=== PATIENT | female | born 1970 | race Caucasian/White ===

== ENCOUNTER → 2018-04-19 14:24 | Outpatient (CLI) | payer OTHER, MEDICAID, SELFPAY ==
[2018-04-19 16:06] LABS: Absolute Lymphocyte Count 1.31 X10^3/ul (0.83-4.51); Absolute Neutrophil Count 5.3 X10^3/uL (2.0-7.7); Basophil# 0.04 X10^3/uL; Basophil% 0.5 % (0-1); Eosinophil# 0.21 X10^3/uL; Eosinophils% 2.9 % (0-5); Hematocrit 35.3 % (37-47); Hemoglobin 12.2 g/dl (12.0-15.0); Lymphocyte # 1.31 X10^3/ul (4.0); Lymphocyte % 17.9 % (19-41); Mean Corp Hgb Conc 34.6 g/gl (32-36); Mean Corpuscular Hgb 29.6 pg (27.0-32.0); Mean Corpuscular Volume 85.7 fL (81-99); Mean Platelet Vol. 9.6 fl (6.2-12.0); Monocyte# 0.38 X10^3/uL; Monocyte% 5.2 % (0-10); Neutrophil # 5.34 X10^3/uL (2.7-7.7); Neutrophil % 73.1 % (47-70); Platelet Count 309 K/mm3 (150-450); RBC Distribution Width CV 13.9 % (11.6-14.6); RBC Distribution Width SD 42.4 fl (35.1-43.9); Red Blood Count 4.12 M/mm3 (4.2-5.4); White Blood Count 7.3 K/mm3 (4.4-11.0)
[2018-04-19 16:13] LABS: POSITIVE COUNT NO; POSITIVE DIFFERENTIAL NO; POSITIVE MORPHOLOGY NO
[2018-04-19 16:38] LABS: Thyroid Stim Hormone (TSH) 2.77 uIU/mL (0.358-3.74)
== END ==
PROVIDERS: Family Provider Family Medicine; PCP Family Medicine; Visit Provider Family Medicine
DX: G25.81 Restless legs syndrome (principal)
CPT/HCPCS: 36415; 84443; 85025

== ENCOUNTER → 2019-03-01 14:30 | Outpatient (CLI) | payer OTHER, SELFPAY ==
[2019-03-01 14:06] VITALS: BMI 34.7
[2019-03-07 12:29] LABS: HPV Reflexed? NOT INDICATED
== END ==
PROVIDERS: Family Provider Family Medicine; PCP Family Medicine; Visit Provider Family Medicine
DX: N95.0 Postmenopausal bleeding (principal)
CPT/HCPCS: 88175; G0145

== ENCOUNTER → 2019-03-06 08:24 | Outpatient (CLI) | payer OTHER, SELFPAY ==
[2019-03-01 14:06] VITALS: BMI 34.7
[2019-03-06 12:46] LABS: ALB/GLOB Ratio 0.8 RATIO (0.9-2.4); AST(SGOT) 14 U/L (15-37); Alanine Aminotransfer ALT/SGPT 20 U/L (13-56); Albumin, Serum 3.4 g/dL (3.2-5.0); Alkaline Phosphatase 126 U/L (45-117); Anion Gap 7 (5-15); BUN 17 mg/dL (7-18); BUN/Creat Ratio 17.2 RATIO (10-20); Calcium,Total 8.7 mg/dL (8.5-10.1); Chloride 108 mmol/L (98-107); Cholesterol 162 mg/dL (200); Creatinine, Serum 0.99 mg/dL (0.55-1.02); EST Glomerular Filtration Rate 64 mL/min (>60); Est Glom Filt Rate - Afr Amer 77 mL/min (>60); Globulin 4.3 g/dL (2.2-4.2); Glucose 89 mg/dL (74-106); High Density Lipoprotein 42 mg/dL; Potassium 4.1 mmol/L (3.5-5.1); Protein, Total 7.7 g/dL (6.4-8.2); Sodium Level 139 mmol/L (136-145); Triglycerides 154 mg/dL; Very Low Density Lipoprotein 31 mg/dL (5-40)
--- NOTE | 2019-03-06 16:24 | US_ITS ---
STUDY: ULTRASOUND OF THE FEMALE PELVIS - COMPLETE REASON FOR EXAM: Female, 48 years old. Postmenopausal bleeding. LMP: TECHNIQUE: Transabdominal and transvaginal. TECHNICAL QUALITY: Adequate. COMPARISON: None. FINDINGS: The uterus is retroverted and is in a midline position. The uterus measures 7.3 x 5.5 x 3.6 cm. Normal uterine cervix. The endometrium measures 3 mm in thickness, and is hyperechoic. There is no demonstrated endometrial mass. There is no demonstrated myometrial mass. I.U.D. - The patient does not have an I.U.D. The right ovary is visualized. The right ovary measures 2.1 x 1.9 x 1.4 cm. There is no right ovarian cyst or ovarian mass. There is no visualized right adnexal mass or complex lesion. There is normal arterial and normal venous vascularity. The left ovary is visualized. The left ovary measures 1.7 x 1.6 x 1.0 cm. There is a small there is cyst measuring 0.6 x 0.5 x 0.4 cm. There is no visualized left adnexal mass or complex lesion. There is normal arterial and normal venous vascularity. There is mild free fluid in cul-de-sac. The pre void volume of the bladder was 327.48 ml. US/Pelvic (Non ) IMPRESSION: 1. Normal ultrasound of the retroverted uterus. 2. Small cyst in left ovary measuring 0.6 x 0.5 x 0.4 cm. 3. Small free fluid in the cul-de-sac. Electronically Signed: Pineda Lee MD at 15:39 EDT , Service support ,
--- NOTE | 2019-03-06 16:37 | US_ITS ---
STUDY: ULTRASOUND OF THE FEMALE PELVIS - COMPLETE REASON FOR EXAM: Female, 48 years old. Postmenopausal bleeding. LMP: TECHNIQUE: Transabdominal and transvaginal. TECHNICAL QUALITY: Adequate. COMPARISON: None. FINDINGS: The uterus is retroverted and is in a midline position. The uterus measures 7.3 x 5.5 x 3.6 cm. Normal uterine cervix. The endometrium measures 3 mm in thickness, and is hyperechoic. There is no demonstrated endometrial mass. There is no demonstrated myometrial mass. I.U.D. - The patient does not have an I.U.D. The right ovary is visualized. The right ovary measures 2.1 x 1.9 x 1.4 cm. There is no right ovarian cyst or ovarian mass. There is no visualized right adnexal mass or complex lesion. There is normal arterial and normal venous vascularity. The left ovary is visualized. The left ovary measures 1.7 x 1.6 x 1.0 cm. There is a small there is cyst measuring 0.6 x 0.5 x 0.4 cm. There is no visualized left adnexal mass or complex lesion. There is normal arterial and normal venous vascularity. There is mild free fluid in cul-de-sac. The pre void volume of the bladder was 327.48 ml. US/Transvaginal Non- IMPRESSION: 1. Normal ultrasound of the retroverted uterus. 2. Small cyst in left ovary measuring 0.6 x 0.5 x 0.4 cm. 3. Small free fluid in the cul-de-sac. Electronically Signed: Pineda Lee MD at 15:39 EDT , Service support ,
== END ==
PROVIDERS: Family Provider Family Medicine; PCP Family Medicine; Referring Provider Family Medicine; Visit Provider Family Medicine
DX: N95.0 Postmenopausal bleeding (principal); E78.5 Hyperlipidemia, unspecified
CPT/HCPCS: 36415; 76830; 76856; 80053; 80061; 93976

== ENCOUNTER → 2019-03-15 08:21 | Outpatient (CLI) | payer OTHER, SELFPAY ==
[2019-03-01 14:06] VITALS: BMI 34.7
[2019-03-15 12:54] LABS: Thyroid Stim Hormone (TSH) 2.59 uIU/mL (0.358-3.74)
== END ==
PROVIDERS: Family Provider Family Medicine; PCP Family Medicine; Visit Provider Family Medicine
DX: N93.8 Other specified abnormal uterine and vaginal bleeding (principal)
CPT/HCPCS: 36415; 84443

== ENCOUNTER → 2019-05-01 09:40 | Outpatient (CLI) | payer OTHER, SELFPAY ==
[2019-05-01 09:04] VITALS: BMI 34.7
[2019-05-03 14:45] LABS: HPV Reflexed? NOT INDICATED
== END ==
PROVIDERS: Family Provider Family Medicine; PCP Family Medicine; Referring Provider Family Medicine; Visit Provider Family Medicine
DX: Z01.419 Encounter for gynecological examination (general) (routine) without abnormal findings (principal)
CPT/HCPCS: 88175; G0145

== ENCOUNTER → 2020-08-19 09:48 | Outpatient (CLI) | payer OTHER, SELFPAY ==
[2020-08-19 12:47] LABS: ALB/GLOB Ratio 0.9 RATIO (0.9-2.4); AST(SGOT) 14 U/L (15-37); Alanine Aminotransfer ALT/SGPT 24 U/L (13-56); Albumin, Serum 3.7 g/dL (3.2-5.0); Alkaline Phosphatase 151 U/L (45-117); Anion Gap 7 (5-15); BUN 11 mg/dL (7-18); BUN/Creat Ratio 11.6 RATIO (10-20); Calcium,Total 8.9 mg/dL (8.5-10.1); Chloride 108 mmol/L (98-107); Cholesterol 168 mg/dL (200); Creatinine, Serum 0.95 mg/dL (0.55-1.02); EST Glomerular Filtration Rate 67 mL/min (>60); Est Glom Filt Rate - Afr Amer 81 mL/min (>60); Globulin 4.2 g/dL (2.2-4.2); Glucose 86 mg/dL (74-106); High Density Lipoprotein 35 mg/dL; Potassium 3.9 mmol/L (3.5-5.1); Protein, Total 7.9 g/dL (6.4-8.2); Sodium Level 140 mmol/L (136-145); Triglycerides 191 mg/dL; Very Low Density Lipoprotein 38 mg/dL (5-40)
== END ==
PROVIDERS: PCP Family Medicine; Referring Provider Family Medicine; Visit Provider Family Medicine
DX: E78.5 Hyperlipidemia, unspecified (principal)
CPT/HCPCS: 36415; 80053; 80061

== ENCOUNTER → 2020-09-13 09:43 | Outpatient (CLI) | payer OTHER, SELFPAY ==
--- NOTE | 2020-09-13 09:44 | BI_ITS ---
MAMMOGRAPHY - BILATERAL SCREENING REASON FOR EXAM: Female, 50 years old. Routine annual screening examination. PERTINENT HISTORY: Aunt with breast cancer. TECHNIQUE: Digital bilateral breast kiarra (3D mammographic acquisition) in the CC and MLO projections. 2-D mediolateral oblique (MLO) and craniocaudad (CC) views of both breasts were obtained. CAD: Full Field Digital Mammography with Computer Added Detection was performed. COMPARISON: Comparison is made with prior outside examination dated 08/24/2017. FINDINGS: Breast Composition: There are scattered areas of fibroglandular density. There are no dominant masses or suspicious calcifications. Stable small benign-appearing bilateral axillary lymph nodes. No other significant abnormalities are identified. There has been no significant change since the prior study. BI/SCREEN MAMM (CAD) W/KIARRA BILAT IMPRESSION: Stable bilateral screening mammogram. Yearly follow-up mammogram recommended. (A) ASSESSMENT CATEGORY: BIRADS Category 2: Benign. A letter regarding these results will be sent to the patient by the facility within 30 days. Approximately 10% of breast cancers are not detected by mammography. A normal mammogram should not delay biopsy of a clinically suspicious abnormality. [id number] Electronically Signed: Rodo Sanford, at 9:15 EST , Service support ,
== END ==
PROVIDERS: PCP Family Medicine; Referring Provider Family Medicine; Visit Provider Family Medicine
DX: Z12.31 Encounter for screening mammogram for malignant neoplasm of breast (principal)
CPT/HCPCS: 77063; 77067

== ENCOUNTER → 2021-07-18 10:41 | Outpatient (CLI) | payer OTHER, SELFPAY ==
[2021-07-18 11:45] LABS: Anion Gap 8 (5-15); BUN 18 mg/dL (7-18); BUN/Creat Ratio 18.1 RATIO (10-20); Calcium,Total 9.3 mg/dL (8.5-10.1); Chloride 104 mmol/L (98-107); Creatinine, Serum 0.99 mg/dL (0.55-1.02); EST Glomerular Filtration Rate 63 mL/min (>60); Est Glom Filt Rate - Afr Amer 76 mL/min (>60); Glucose 89 mg/dL (74-106); Potassium 3.9 mmol/L (3.5-5.1); Sodium Level 138 mmol/L (136-145)
== END ==
PROVIDERS: PCP Family Medicine; Visit Provider Internal Medicine
DX: I10 Essential (primary) hypertension (principal)
CPT/HCPCS: 36415; 80048

== ENCOUNTER 2021-10-06 07:04 | Outpatient (CLI) | payer OTHER, SELFPAY ==
--- NOTE | 2021-10-06 07:07 | BI_ITS ---
MAMMOGRAPHY - BILATERAL SCREENING REASON FOR EXAM: Female, 51 years old. Routine annual screening examination. PERTINENT HISTORY: Aunt with breast cancer. TECHNIQUE: Digital bilateral breast kiarra (3D mammographic acquisition) in the CC and MLO projections. 2-D mediolateral oblique (MLO) and craniocaudad (CC) views of both breasts were obtained. CAD: Full Field Digital Mammography with Computer Added Detection was performed. COMPARISON: Comparison is made with prior study dated 09/13/2020. FINDINGS: Breast Composition: There are scattered areas of fibroglandular density. There are no dominant masses or suspicious calcifications. Stable small benign-appearing bilateral axillary lymph nodes. No other significant abnormalities are identified. There has been no significant change since the prior study. BI/SCRN MAMM (CAD)W/KIARRA BILAT IMPRESSION: Stable bilateral screening mammogram. Yearly follow-up mammogram recommended. (A) ASSESSMENT CATEGORY: BIRADS Category 2: Benign. A letter regarding these results will be sent to the patient by the facility within 30 days. Approximately 10% of breast cancers are not detected by mammography. A normal mammogram should not delay biopsy of a clinically suspicious abnormality. [id number] Electronically Signed: Rdoo Sanford MD at 8:43 EST , Service support ,
== END 2021-10-06 23:59 | disposition short-term general hospital (02) ==
LOC: OPBI 07:06
PROVIDERS: PCP Family Medicine; Referring Provider Family Medicine; Visit Provider Family Medicine
DX: Z12.31 Encounter for screening mammogram for malignant neoplasm of breast (principal); Z80.3 Family history of malignant neoplasm of breast
CPT/HCPCS: 77063; 77067

== ENCOUNTER 2021-12-01 09:06 | Outpatient (CLI) | payer OTHER, SELFPAY ==
[2021-12-01 13:13] LABS: Cholesterol 187 mg/dL (200); High Density Lipoprotein 39 mg/dL; T4 Free Direct 0.94 ng/dL (0.76-1.46); Thyroid Stim Hormone (TSH) 1.99 uIU/mL (0.358-3.74); Triglycerides 286 mg/dL; Very Low Density Lipoprotein 57 mg/dL (5-40)
[2021-12-02 21:07] LABS: Thyroid Peroxidase AB 38 IU/mL (0-34)
[2021-12-03 19:11] LABS: Thyroglobulin Antibody < 1.0 IU/mL (0.0-0.9)
== END 2021-12-01 23:59 | disposition home or self-care (01) ==
LOC: BIMLAB 09:07
PROVIDERS: PCP Family Medicine; Referring Provider Family Medicine; Visit Provider Family Medicine
DX: E78.5 Hyperlipidemia, unspecified (principal); I10 Essential (primary) hypertension
CPT/HCPCS: 36415; 80061; 84439; 84443; 86376; 86800

== ENCOUNTER 2022-01-13 11:27 | Outpatient (CLI) | payer OTHER, SELFPAY ==
--- NOTE | 2022-01-13 11:30 | US_ITS ---
STUDY: THYROID ULTRASOUND REASON FOR EXAM: Female, 51 years old. ENLARGED THYROID TECHNIQUE: Ultrasound evaluation of the thyroid was performed with real-time and static diego-scale imaging. COMPARISON: None. FINDINGS: RIGHT LOBE: The right lobe of the thyroid gland measures 4.3 cm x 2.4 cm x 1.6 cm. There is a homogeneous echotexture. There is a 1.4 cm x 1.3 cm x 1.2 cm solid nodule with increased vascularity in the posterior lower pole of the right lobe. There is also evidence of a 1 cm x 0.7 cm x 0.5 cm hypoechoic solid nodule in the anterior midpole. A 1 cm x 0.7 cm x 0.5 cm hypoechoic solid nodule is seen in the upper pole. LEFT LOBE: The left lobe of the thyroid gland measures 4.1 cm x 1.5 cm x 1.1 cm. There is a homogeneous echotexture. 3 subcentimeter solid nodules are seen. The largest measures 9 mm x 8 mm x 4 mm. ISTHMUS: The isthmus measures 2 mm. Incidental note is made of a 1 cm x 0.8 cm by 0.4 cm benign-appearing left cervical lymph node. US/Thyroid IMPRESSION: Dominant solid nodule with increased vascularity is seen in the posterior lower pole of the right lobe of the thyroid. Biopsy recommended. Electronically Signed: Rodo Sanford MD at 13:23 EDT ,
== END 2022-01-13 23:59 | disposition home or self-care (01) ==
LOC: US 11:35
PROVIDERS: PCP Family Medicine; Referring Provider Physician Assistant; Visit Provider Physician Assistant
DX: E04.9 Nontoxic goiter, unspecified (principal)
CPT/HCPCS: 76536

== ENCOUNTER → 2022-03-10 | Outpatient (CLI) | payer OTHER, SELFPAY ==
[2022-03-10 17:16] LABS: Follicle Stimulating Hormone 6.6 mIU/mL
== END | disposition home or self-care (01) ==
LOC: BIMLAB 16:19
PROVIDERS: PCP Family Medicine; Referring Provider Family Medicine; Visit Provider Family Medicine
DX: F99 Mental disorder, not otherwise specified (principal)
CPT/HCPCS: 36415; 83001

== ENCOUNTER → 2022-03-19 | Outpatient (CLI) | payer OTHER, SELFPAY | END | disposition home or self-care (01) | LOC: PSN 06:21 | PROVIDERS: PCP Family Medicine; Referring Provider Family Medicine; Visit Provider Family Medicine | DX: I49.9 Cardiac arrhythmia, unspecified (principal) | CPT/HCPCS: 93225; 93226 ==

== ENCOUNTER → 2022-03-31 | Outpatient (CLI) | payer OTHER, SELFPAY ==
--- NOTE | 2022-03-31 12:55 | ECHOD_ITS ---
Reason For Study: Arrhythmia Procedure This was a 2D Doppler, Color Flow transthoracic echocardiogram. The exam was of adequate technical quality. Exam performed in department. Left Ventricle Normal LV size. Sigmoid septum. Left ventricular systolic function is normal. The estimated ejection fraction is 65 %. No evidence for diastolic dysfunction. No regional wall motion abnormalities noted. Right Ventricle Normal RV size. Normal systolic function. Atria Normal left atrium. Normal right atrium. No doppler evidence for ASD. Mitral Valve There is no mitral annular calcification. Mild focal mitral valve calcification of the anterior leaflet. Trivial mitral valve insufficiency. Tricuspid Valve Normal tricuspid valve. Trivial tricuspid valve insufficiency. Unable to estimate RV systolic pressure due to insufficient tricuspid regurgitant envelope. Aortic Valve Trisinus/trileaflet aortic valve. Normal aortic valve. Pulmonic Valve The pulmonic valve is not well visualized. Great Vessels Normal sized aortic root. Pericardium/Pleural No pericardial effusion. MMode/2D Measurements & Calculations LVIDd: 5.1 cm IVSd: 0.89 cm Ao root diam: 3.3 cm LVIDs: 3.3 cm LVPWd: 0.89 cm LA dimension: 3.8 cm RVDd: 2.9 cm FS: 35.4 % LAV(MOD-bp): 40.8 ml LA A4 area: 16.4 cm2 RA A4 area: 13.6 cm2 LAV(MOD-bp) Indexed: 21.4 ml/m2 LAV(MOD-sp2): 43.6 ml LAV(MOD-sp4): 38.4 ml Time Measurements MV dec time: 0.24 sec Doppler Measurements & Calculations MV E max julius: 75.9 cm/sec Lat Peak E' Julius: 11.6 cm/sec Med Peak E' Julius: 9.6 cm/sec MV A max julius: 95.5 cm/sec E/E' lat: 6.5 E/E' med: 7.9 MV E/A: 0.79 MV V2 max: 94.7 cm/sec MV P1/2t max julius: 93.6 cm/sec Ao V2 max: 130.3 cm/sec MV max P.6 mmHg MV P1/2t: 51.9 msec Ao max P.8 mmHg MV V2 mean: 59.5 cm/sec MV dec slope: 527.8 cm/sec2 MV mean P.7 mmHg MVA(P1/2t): 4.2 cm2 MV V2 VTI: 19.8 cm LV V1 max: 100.8 cm/sec PA V2 max: 121.3 cm/sec LV V1 max P.1 mmHg ECHO/Echo Complete Interpretation Summary Left ventricular systolic function is normal. The estimated ejection fraction is 65 %. Sigmoid septum. Mild focal mitral valve calcification of the anterior leaflet. Trivial mitral valve insufficiency. Trivial tricuspid valve insufficiency. Unable to estimate RV systolic pressure due to insufficient tricuspid regurgita nt envelope. No evidence for diastolic dysfunction. Ordering Physician: Mick Nick Referring Physician: Mick Nick Performed By: Rajat Pierce RCS
== END | disposition home or self-care (01) ==
LOC: CVS 12:52
PROVIDERS: PCP Family Medicine; Referring Provider Family Medicine; Visit Provider Family Medicine
DX: I49.9 Cardiac arrhythmia, unspecified (principal)
CPT/HCPCS: 93306

== ENCOUNTER → 2022-08-12 | Outpatient (CLI) | payer OTHER, SELFPAY ==
[2022-08-19 14:50] LABS: HPV Reflexed? NOT INDICATED
== END | disposition home or self-care (01) ==
LOC: LABSPEC 08:42
PROVIDERS: PCP Family Medicine; Referring Provider Family Medicine; Visit Provider Family Medicine
DX: Z01.419 Encounter for gynecological examination (general) (routine) without abnormal findings (principal)
CPT/HCPCS: 88175; G0145

== ENCOUNTER → 2022-08-27 | Outpatient (CLI) | payer OTHER, SELFPAY ==
[2022-08-27 13:25] LABS: Absolute Lymphocyte Count 2.11 X10^3/uL (0.83-4.51); Basophil# 0.05 X10^3/uL; Basophil% 0.6 % (0-1); Eosinophil# 0.32 X10^3/uL; Eosinophils% 3.6 % (0-5); Hematocrit 34.8 % (37-47); Hemoglobin 11.6 g/dL (12.0-15.0); Lymphocyte # 2.11 X10^3/ul (0.83-4.51); Lymphocyte % 23.7 % (19-41); Mean Corp Hgb Conc 33.3 g/dL (32-36); Mean Corpuscular Hgb 27.4 pg (27.0-32.0); Mean Corpuscular Volume 82.1 fL (81-99); Mean Platelet Vol. 9.2 fl (6.2-12.0); Monocyte# 0.38 X10^3/uL; Monocyte% 4.3 % (0-10); NRBC Flagged by Analyzer 0 % (0-5); Neutrophil # 5.97 X10^3/uL (2.7-7.7); Neutrophil % 67.1 % (47-70); Platelet Count 339 K/mm3 (150-450); RBC Distribution Width CV 14.1 % (11.6-14.6); RBC Distribution Width SD 41.5 fl (35.1-43.9); Red Blood Count 4.24 M/mm3 (4.2-5.4); White Blood Count 8.9 K/mm3 (4.4-11.0)
[2022-08-27 14:00] LABS: AST(SGOT) 37 U/L (15-37); Alanine Aminotransfer ALT/SGPT 52 U/L (13-56); Albumin, Serum 3.7 g/dL (3.2-5.0); Alkaline Phosphatase 160 U/L (45-117); Anion Gap 8 (5-15); BUN 18 mg/dL (7-18); BUN/Creat Ratio 18.3 RATIO (10-20); Chloride 105 mmol/L (98-107); Cholesterol 187 mg/dL (200); Creatinine, Serum 0.99 mg/dL (0.55-1.02); EST Glomerular Filtration Rate 63 mL/min (>60); Est Glom Filt Rate - Afr Amer 76 mL/min (>60); Globulin 3.8 g/dL (2.2-4.2); Glucose 121 mg/dL (74-106); High Density Lipoprotein 43 mg/dL; Potassium 3.4 mmol/L (3.5-5.1); Protein, Total 7.5 g/dL (6.4-8.2); Sodium Level 140 mmol/L (136-145); Triglycerides 374 mg/dL; Very Low Density Lipoprotein 75 mg/dL (5-40)
== END | disposition home or self-care (01) ==
LOC: LAB 12:32
PROVIDERS: PCP Family Medicine; Visit Provider Family Medicine
DX: I49.9 Cardiac arrhythmia, unspecified (principal); I10 Essential (primary) hypertension
CPT/HCPCS: 36415; 80053; 80061; 85025

== ENCOUNTER → 2022-10-07 | Outpatient (CLI) | payer OTHER, SELFPAY ==
--- NOTE | 2022-10-07 07:20 | BI_ITS ---
MAMMOGRAPHY - BILATERAL SCREENING REASON FOR EXAM: Female, 52 years old. Routine annual screening examination. PERTINENT HISTORY: Aunt with breast cancer. TECHNIQUE: Digital bilateral breast kiarra (3D mammographic acquisition) in the CC and MLO projections. 2-D mediolateral oblique (MLO) and craniocaudad (CC) views of both breasts were obtained. CAD: Full Field Digital Mammography with Computer Added Detection was performed. COMPARISON: Comparison is made with prior study dated 10/06/2021 and 09/13/2020. FINDINGS: Breast Composition: There are scattered areas of fibroglandular density. There are no dominant masses or suspicious calcifications. Stable small benign-appearing bilateral axillary lymph nodes. No other significant abnormalities are identified. There has been no significant change since the prior study. BI/SCRN MAMM (CAD)W/KIARRA BILAT IMPRESSION: Stable bilateral screening mammogram. Yearly follow-up mammogram recommended. (A) ASSESSMENT CATEGORY: BIRADS Category 2: Benign. A letter regarding these results will be sent to the patient by the facility within 30 days. Approximately 10% of breast cancers are not detected by mammography. A normal mammogram should not delay biopsy of a clinically suspicious abnormality. [id number] Electronically Signed: Rodo Sanford MD at 9:13 EST ,
== END | disposition home or self-care (01) ==
LOC: OPBI 07:18
PROVIDERS: PCP Family Medicine; Visit Provider Family Medicine
DX: Z12.31 Encounter for screening mammogram for malignant neoplasm of breast (principal)
CPT/HCPCS: 77063; 77067

== ENCOUNTER → 2023-01-15 | Outpatient (CLI) | payer OTHER, SELFPAY ==
--- NOTE | 2023-01-15 10:38 | US_ITS ---
INDICATION: Multiple thyroid nodules EXAMINATION: Ultrasound Thyroid (eg thyroid, parathyroid, parotid) TECHNIQUE: Benson scale and color doppler imaging was performed of the thyroid gland. COMPARISON: January 13, 2022 thyroid ultrasound. FINDINGS: No report of interval biopsy the prior study. RIGHT THYROID LOBE: 4.7 x 1.7 x 2.1 cm. Heterogeneous echotexture with normal vascularity. 3 measured nodules. Dominant nodule in the mid to inferior gland, deep, solid with areas of cystic change, measuring 1.8 x 1.5 x 1.5 cm in size, mild vascularity. This was previously measured at 1.4 x 1.3 x 1.2 cm. Superficial mid gland ovoid solid nodule measuring 1 x 0.4 x 0.8 cm in size. No significant vascularity. Additional mid gland nodule measuring 0.8 x 0.5 x 0.3 cm, solid, no significant vascularity. LEFT THYROID LOBE: 3.7 x 1.4 x 1.5 cm. Heterogeneous echotexture with normal vascularity. 2 measured nodules. Cystic lesion measuring 5 x 5 x 3 mm, upper mid gland, small marginal echogenic focus. No vascularity. Predominantly solid, small cystic component nodule measuring 1.1 x 0.7 x 0.5 cm in the mid gland. Small focus of vascularity. ISTHMUS: 2 mm. No thyroid nodules are present. No adenopathy. US/Thyroid IMPRESSION: Bilateral thyroid nodules. Slight increase in size in the dominant right thyroid nodule. TIRADS 4. Electronically Signed: Mauro Cueva MD at 16:42 EDT ,
== END | disposition home or self-care (01) ==
PROVIDERS: PCP Family Medicine; Referring Provider Surgery; Visit Provider Surgery
DX: E04.2 Nontoxic multinodular goiter (principal)
CPT/HCPCS: 76536

== ENCOUNTER → 2023-01-21 | Outpatient (CLI) | payer OTHER, SELFPAY ==
--- NOTE | 2023-01-21 | FLU_PTH ---
PATIENT: ELISA CORREA LOC: [facility] U#:[id number] AGE/SX: 52/F ROOM: RE01/21/[address]: Dr. Trevor Lanier MD : 1970 BED: DIS: 01/21/2023 SPEC #: [id number] RECD: 01/21/23 12:37 STATUS: FAMILIA BLAKE #: [id number] RADHA: 01/21/23 00:[address]: Trevor Lanier DEPT: CYTOLOGY RECD BY: Mike Ornelas ENTERED: 01/21/23 12:38 SP TYPE: Fluid OTHR DR: Dr. Mick Nick DO Tissues: A - Thyroid gland, NOS B - Thyroid gland, NOS Procedures: Special Stain Group II Surgery Specimen Level IV Cytospin Fluid HEADER OPERATION: Fine needle aspiration right inferior thyroid nodule PRE-OP DIAGNOSIS: Right thyroid nodule TISSUE SUBMITTED: A ? Right thyroid fluid, B ? Right thyroid x4 slides DIAGNOSIS CYTOLOGY A. Fine needle aspiration, right thyroid nodule (cytospin and cell block): Consistent with benign follicular nodule with cystic change (Equinunk Category II). See comment. B. 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 See comment. AM:jarrett 01/24/2023 COMMENT A & B. The Equinunk System for thyroid diagnostic categorization was used in the evaluation of this case. The specimen is adequate for evaluation. CYTOLOGY STUDY Slides are reviewed. CYTOLOGY GROSS A - Received is 30 ml of red cloudy fluid labeled with the patient's name and and designated per the requisition as right thyroid. Submitted for cytology preparation including cell block. B - Received are four smears labeled with the patient's name and designated per the requisition as right thyroid. Submitted for staining. / jarrett 01/21/2023 TC:5 CPT: 34879 x2, [id number]
[2023-01-21 10:01] LABS: Free T3 2.4 pg/mL (2.18-3.98); T4 Total, Thyroxin 10.2 ug/dL (4.8-13.9); Thyroid Stim Hormone (TSH) 2.36 uIU/mL (0.358-3.74)
== END | disposition home or self-care (01) ==
PROVIDERS: PCP Family Medicine; Referring Provider Surgery; Visit Provider Surgery
DX: E04.1 Nontoxic single thyroid nodule (principal)
CPT/HCPCS: 36415; 84436; 84443; 84481; 88108; 88305; 88313

== ENCOUNTER → 2023-02-10 | Outpatient (CLI) | payer OTHER, SELFPAY ==
[2023-02-10 12:21] LABS: Absolute Lymphocyte Count 1.76 X10^3/uL (0.83-4.51); Absolute Neutrophil Count 4.7 X10^3/uL (2.0-7.7); Basophil# 0.06 X10^3/uL; Basophil% 0.8 % (0-1); Eosinophil# 0.22 X10^3/uL; Eosinophils% 3.1 % (0-5); Hematocrit 33.9 % (37-47); Lymphocyte # 1.76 X10^3/ul (0.83-4.51); Lymphocyte % 24.4 % (19-41); Mean Corp Hgb Conc 32.4 g/dL (32-36); Mean Corpuscular Hgb 27.4 pg (27.0-32.0); Mean Corpuscular Volume 84.3 fL (81-99); Mean Platelet Vol. 9.9 fl (6.2-12.0); Monocyte# 0.39 X10^3/uL; Monocyte% 5.4 % (0-10); NRBC Flagged by Analyzer 0 % (0-5); Neutrophil # 4.73 X10^3/uL (2.7-7.7); Neutrophil % 65.6 % (47-70); Platelet Count 341 K/mm3 (150-450); RBC Distribution Width CV 14.6 % (11.6-14.6); RBC Distribution Width SD 44.6 fl (35.1-43.9); Red Blood Count 4.02 M/mm3 (4.2-5.4); White Blood Count 7.2 K/mm3 (4.4-11.0)
[2023-02-10 12:42] LABS: ALB/GLOB Ratio 1.1 RATIO (0.9-2.4); AST(SGOT) 35 U/L (15-37); Alanine Aminotransfer ALT/SGPT 52 U/L (13-56); Albumin, Serum 4.2 g/dL (3.2-5.0); Alkaline Phosphatase 170 U/L (45-117); Anion Gap 6 (5-15); BUN 15 mg/dL (7-18); BUN/Creat Ratio 14.2 RATIO (10-20); Calcium,Total 9.9 mg/dL (8.5-10.1); Chloride 105 mmol/L (98-107); Creatinine, Serum 1.06 mg/dL (0.55-1.02); EST Glomerular Filtration Rate 58 mL/min (>60); Est Glom Filt Rate - Afr Amer 70 mL/min (>60); Globulin 3.9 g/dL (2.2-4.2); Glucose 103 mg/dL (74-106); Protein, Total 8.1 g/dL (6.4-8.2); Sodium Level 140 mmol/L (136-145)
== END | disposition home or self-care (01) ==
LOC: BIMLAB 09:48
PROVIDERS: PCP Family Medicine; Referring Provider Family Medicine; Visit Provider Family Medicine
DX: I49.9 Cardiac arrhythmia, unspecified (principal)
CPT/HCPCS: 36415; 80053; 85025

== ENCOUNTER → 2023-03-22 | Outpatient (CLI) | payer OTHER, SELFPAY ==
[2023-03-22 13:53] LABS: GGTP 76 U/L (5-55)
== END | disposition home or self-care (01) ==
LOC: BIMLAB 09:54
PROVIDERS: PCP Family Medicine; Referring Provider Family Medicine; Visit Provider Family Medicine
DX: R74.8 Abnormal levels of other serum enzymes (principal)
CPT/HCPCS: 36415; 82977

== ENCOUNTER → 2023-04-02 | Outpatient (CLI) | payer OTHER, SELFPAY ==
--- NOTE | 2023-04-02 10:33 | US_ITS ---
ACR Level 3 findings have been noted. An addendum which confirms receipt of the report will follow. INDICATION: elevated liver enzymes EXAMINATION: US Abdomen RUQ (limited) TECHNIQUE: Smith-scale and color Doppler imaging was performed of the right upper abdominal quadrant. COMPARISON: None. Findings: The liver is increased in echogenicity and sound attenuating with geographic hypoechogenicity adjacent to the gallbladder, consistent with focal fatty sparing. There is no evidence of contour nodularity. There are multiple irregular shaped cysts. There is also a hypoechoic masslike lesion in the right hepatic lobe measuring 4.6 x 4.3 cm.. The main portal vein is normal in size and patent demonstrating hepatopetal flow. The gallbladder is unremarkable without evidence of stones, wall thickening or pericholecystic fluid. Sonographic Wiggins''s tenderness is not appreciated. There is no evidence of intrahepatic biliary ductal dilatation. The CBD is nondilated measuring 3 mm at the level of the vikram hepatis. The visualized portions of the pancreas are unremarkable without evidence of focal or diffuse enlargement. Specifically, the tail is obscured by overlying bowel gas. Right kidney measures 11.3 cm in length. It is normal in echogenicity. No focal renal lesion is identified. There is no evidence of hydronephrosis. US/Liver IMPRESSION: Hyperechoic and sound attenuating liver with focal fatty sparing and without evidence of contour nodularity. Findings are consistent with sequela of fatty infiltration. Few scattered irregularly shaped cysts as well as a 4.6 cm hypoechoic masslike lesion in the right hepatic lobe. Recommend CT or MR abdomen with and without contrast liver mass protocol. Electronically Signed: Robb Brito MD at 23:11 EDT ,
== END | disposition home or self-care (01) ==
PROVIDERS: PCP Family Medicine; Referring Provider Family Medicine; Visit Provider Family Medicine
DX: R74.8 Abnormal levels of other serum enzymes (principal)
CPT/HCPCS: 76705

== ENCOUNTER → 2023-04-06 | Outpatient (CLI) | payer OTHER, SELFPAY ==
--- NOTE | 2023-04-06 12:34 | NEURO ---
NCS and/or EMG Patient Report Ordering Doctor: Mick Nick DATE OF SERVICE: 04/06/23 Sierra presents for electrodiagnostic testing of the right upper limb. She has numbness and tingling in the right hand. Electrodiagnostic Findings: Right median motor nerve demonstrates normal distal latency and amplitude with reduced conduction velocity. Normal right ulnar motor response, including conduction across the elbow. Normal right median and ulnar F-wave. Prolonged right median sensory latency at the wrist. Normal ulnar and radial sensory responses. Needle EMG testing showed no evidence of denervation with normal motor unit action potentials. Electrodiagnostic impression: This is an abnormal study in the right upper limb. 1. Electrodiagnostic findings suggestive of right-sided median mononeuropathy. This is consistent with a mild right carpal tunnel syndrome. Multi Select Codes Neurology Neurology Interp Codes: 22493-51 Musc test done w/n test comp (interp) and 46845-59 Nrv cndj test 7-8 studies (interp)
== END | disposition home or self-care (01) ==
LOC: PSN 10:40
PROVIDERS: PCP Family Medicine; Referring Provider Family Medicine; Visit Provider Family Medicine
DX: R20.0 Anesthesia of skin (principal); R20.2 Paresthesia of skin
CPT/HCPCS: 95886; 95910

== ENCOUNTER → 2023-04-18 | Outpatient (CLI) | payer OTHER, SELFPAY ==
--- NOTE | 2023-04-18 07:38 | MRI_ITS ---
STUDY: MRI ABDOMEN WITH AND WITHOUT CONTRAST REASON FOR EXAM: Female, 52 years old. liver mass TECHNIQUE: Standardized fat and water weighted pulse sequences were obtained in all 3 orthogonal planes post contrast administration. IV clariscan 15ml was administered for the contrast portion of the examination. COMPARISON: Ultrasound 04/02/2023. FINDINGS: Base of the chest is unremarkable. There are multiple nonenhancing cysts of the left and right hepatic lobes including a lobular or septated cyst of the anterior left hepatic lobe on image 21 of series 102 compatible with simple/benign cysts. No required imaging follow-up needed given high likelihood of benign nature. Some of the cysts were documented on prior ultrasound. In the posterior right hepatic lobe (segment 7), there is a solid slightly hypointense T1 (image 9 series 4) mass which measures 4.4 x 4.0 x 3.4 cm mass which demonstrates restricted diffusion (image 54 series 7). There is lobular, although relatively homogenous enhancement throughout the mass on image 48 of series 1001 in the arterial phase with homogenous continued enhancement on later phases, only slightly higher signal intensity as compared to adjacent hepatic parenchyma. No associated hemorrhagic products, fat (a lesion mildly hyperintense on out of phase imaging) or calcification. No discrete capsule. No hepatic capsular retraction. Although no definitive central scar seen on T2-weighted sequences, there is slight central hypoenhancement that could represent a radial scar. This lesion correlates to hypoechoic lesion on prior ultrasound. Normal gallbladder and extrahepatic biliary system. In the posterior spleen, there is hypointense T2 signal intensity lesion that demonstrates peripheral dominant enhancement seen on venous and later phases. Normal pancreas. Normal bilateral adrenal glands. No hydronephrosis. Hollow viscus structures are unremarkable.. Normal abdominal aorta. Normal inferior vena cava. Normal retroperitoneum. Normal abdominal wall. No bone marrow edema. MRI/MRI Abd WITH and W/O Contrast IMPRESSION: 1. Solid enhancing mass of the posterior right hepatic lobe correlating to hypoechoic lesion on recent ultrasound. Enhancement pattern favors benign etiology such as FNH or adenoma although appearance is atypical. 2. Enhancing mass in the spleen atypical MRI features for hemangioma (most common). 3. Given indeterminate US/MRI features of both the liver and splenic lesions, additional evaluation with PET scan versus biopsy recommended, depending on patient''s risk factors for malignancy (none reported at time of dictation). Absent additional workup, short-term follow-up in 3-6 months could be considered. Electronically Signed: Jovan Alegre (Brooks), at 16:31 EDT ,
[2023-04-18 08:04] LABS: EGFR FINGERSTICK > 60.0000 mL/min (>60)
== END | disposition home or self-care (01) ==
LOC: MRI 07:22
PROVIDERS: PCP Family Medicine; Referring Provider Family Medicine; Visit Provider Family Medicine
DX: R16.0 Hepatomegaly, not elsewhere classified (principal)
CPT/HCPCS: 74183; A9575; A4216

== ENCOUNTER → 2023-05-03 | Outpatient (CLI) | payer OTHER, SELFPAY ==
--- NOTE | 2023-05-03 09:00 | PET_ITS ---
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 COMPARISON EXAMINATION: MRI of the abdomen report dated 04/18/2023. INDEX LESION SIZE SUV INTERPRETATION Spleen-splenic parenchyma 34.1 mm, largest 2.5 corrected > hepatic reference Fulfills quantitative criteria for viable neoplasm with single-point technique, histopathologic analysis recommended ? ? NON-INDEX LESION ? ? ? Right lobe thyroid gland 15.1 mm 3.4 May be further investigated with thyroid ultrasound TECHNIQUE: Following the intravenous administration of 13.29 mCi of F-18 deoxyglucose via the right antecubital fossa, multiplanar image acquisitions of the head, neck, chest, abdomen and pelvis to the level of the midthigh, obtained at one-hour post radiopharmaceutical administration contemporaneously interpreted with the current CT of the chest, abdomen and pelvis dated 05/03/2023 and prior MRI of the abdomen report dated 04/08/2023 via coregistration reveal: SERUM GLUCOSE LEVEL: 110 mg/dL HEIGHT: 62 inches WEIGHT: 185 pounds FINDINGS: HEAD/NECK: Asymmetric increased radiopharmaceutical concentration appears evident in the right anterior neck involving Level associated with the right lobe thyroid colloid. The calculated maximum standard uptake value is 3.4. The maximal axial diameter of the metabolic, morphologic abnormality is 15.1 mm. The visualized portion of the cerebral cortical-subcortical structures demonstrate symmetric and preserved glucose metabolism. CHEST: There is no quantitative scintigraphic evidence of abnormal increased glucose metabolism within the context of the bilateral hemithorax pulmonary parenchyma, right and left hemithorax at the pleural interface, mediastinal structures, and left-right thoracic perihilum. Facilitated FDG uptake is noted in the left ventricular myocardium, consistent with the [place]. CT of the chest demonstrates the following anatomic characteristics: Bilateral axillary soft tissue densities are ametabolic. Right and left axillary and middle mediastinal soft tissue reveals no evidence of increased tracer uptake. There are no parenchymal densities-nodules defined in the right and left hemithorax with quantitatively significant increased FDG uptake. ABDOMEN/PELVIS: Enhanced radiopharmaceutical concentration is defined within the splenic parenchyma generating a calculated standard uptake value of 2.5 corrected 5.0 uncorrected > than the hepatic reference. The maximal axial diameter of the metabolic abnormality is 34.1 mm. Normal physiologic distribution of the radiopharmaceutical is identified in the hepatic (4.1) parenchyma, both renal units, urinary bladder, and visualized intestinal tract. CT of the abdomen and pelvis is remarkable for the following: Colonic diverticulosis is demonstrated without evidence of diverticulitis. A fat containing paraumbilical hernia is noted. Right and left inguinal soft tissue densities are ametabolic. SKELETAL: There is no evidence of quantitatively significant enhanced glucose metabolism on meticulous inspection of the appendicular and axial skeletal structures. Degenerative changes defined in the thoracic and lumbar spine demonstrate no evidence of increased glucose metabolism. There are no sclerotic, mixed sclerotic-lytic, or primarily lytic changes defined in the axial skeletal structures with evidence of increased FDG uptake. PET/PET/CT Tumor Base -Thigh Init IMPRESSION: 1. The increase in radiopharmaceutical concentration manifest within the splenic parenchyma fulfills quantitative criteria for viable neoplasm with single-point technique. (Josefa et al., Journal of Nuclear Medicine 44:1072, 2004). 2. Facilitated uptake noted in the right thyroid colloid may be further investigated with thyroid ultrasound related to the quantitative degree of uptake. Electronic Signature Tigre Guillory D.O. Accurate Quantification of SUVs for this report are calculated using the exclusive [employer] Technology. ([place].S. Patent No. [id number], 674, 983 B2 [phone] [place] patent [phone]). Standardization and correction of the FDG SUV metric via [employer] technology allow for vendor non-specific objective quantitative examination comparison and optimization of the sensitivity and specificity of the FDG PET-CT examination. . Electronically Signed: Tigre Guillory, at 22:09 EDT ,
== END | disposition home or self-care (01) ==
PROVIDERS: PCP Family Medicine; Referring Provider Internal Medicine; Visit Provider Internal Medicine
DX: R93.5 Abnormal findings on diagnostic imaging of other abdominal regions, including retroperitoneum (principal); R16.0 Hepatomegaly, not elsewhere classified; R16.1 Splenomegaly, not elsewhere classified
CPT/HCPCS: 78815; A9552

== ENCOUNTER → 2023-05-26 | Outpatient (CLI) | payer OTHER, SELFPAY ==
--- NOTE | 2023-05-26 18:14 | CT_ITS ---
INDICATION: LIVER MASS, history of cervical cancer. EXAMINATION: CT ABDOMEN AND PELVIS WITH CONTRAST - CT Abdomen And Pelvis W/ Contrast Injection TECHNIQUE: Helically acquired images were obtained of the abdomen and pelvis following IV contrast. A radiation dose optimization technique was used for this scan. IV Contrast dosage and agent: 100 cc Isovue-300 Oral contrast: None. COMPARISON: PET/CT 05/03/2023, abdominal MRI 04/18/2023 FINDINGS: LOWER CHEST: Lung bases are clear. No cardiomegaly or pericardial effusion. LIVER: Multiple hepatic cyst redemonstrated. The right lobe lesion seen on prior ultrasound, PET/CT and MRI is subtly hyperattenuating and is not easily distinguishable on the single portal venous phase images. GALLBLADDER AND BILIARY TREE: No calcified gallstones. No gallbladder distension or wall edema. No intra- or extrahepatic biliary ductal dilation. PANCREAS: No focal cystic or solid mass. SPLEEN: Stable 3 cm low-attenuation splenic lesion corresponding to the PET positive findings on the prior PET/CT study. ADRENAL GLANDS: No nodules. KIDNEYS AND URETERS: Normal renal size and position. No hydronephrosis. PERITONEUM: No ascites or free air. BOWEL: Normal appendix. No stomach or bowel distension. No focal inflammatory change. LYMPH NODES: No enlarged mesenteric or retroperitoneal lymph nodes. VESSELS: Aorta is non-dilated. URINARY BLADDER: Unremarkable. REPRODUCTIVE ORGANS: 2.6 cm left ovarian cyst. With 2.1 cm adjacent paraovarian cyst. ABDOMINAL WALL: Small fat-containing umbilical hernia. BONES: No lytic or blastic abnormality. CT/Abdomen/Pelvis W IV Cont ONLY IMPRESSION: Subtly hyperintense lesion right lobe liver corresponding to prior PET/CT and MRI findings likely represents hepatic adenoma. Stable 3 cm splenic lesion which was previously positive on PET/CT examination. No acute findings in the abdomen or pelvis. 2.6 cm left ovarian cyst with adjacent 2.1 cm cyst. Electronically Signed: Deyvi Galicia MD at 16:19 EDT ,
== END | disposition home or self-care (01) ==
LOC: CT 17:33
PROVIDERS: PCP Family Medicine; Referring Provider Internal Medicine Hematology & Oncology; Visit Provider Internal Medicine Hematology & Oncology
DX: R16.0 Hepatomegaly, not elsewhere classified (principal)
CPT/HCPCS: 74177; Q9967; A4216

== ENCOUNTER → 2023-06-03 | Outpatient (CLI) | payer OTHER, SELFPAY ==
[2023-06-03] VITALS (9 sets, daily range): BP systolic 107–129; BP diastolic 54–89; PULSE 8–93; RESP 14–81; TEMP 37.1; O2SAT 16–919; BMI 33.8
--- NOTE | 2023-06-03 | BMB_PTH ---
PATIENT: ELISA CORREA LOC: CT U#:[id number] AGE/SX: 52/F ROOM: RE06/03/[address]: Dr. Yaniv Crawford MD : 1970 BED: DIS: 06/03/2023 SPEC #: [id number] RECD: 06/03/23 10:20 STATUS: FAMILIA REMirta #: [id number] RADHA: 06/03/23 00:[address]: Yaniv Crawford DEPT: BONE MARROW RECD BY: Sisi Hernandez ENTERED: 06/03/23 10:20 SP TYPE: BMB MILEY DR: DO Dr. Rodo Mancia MD Tissues: A - Bone marrow, NOS B - Bone marrow, NOS C - Bone marrow, NOS Procedures: Bone Marrow Aspiration Bone Marrow Core Biopsy Iron Stain Bone Marrow HEADER OPERATION: Bone marrow aspiration and biopsy PRE-OP DIAGNOSIS: Anemia, spleen lesions TISSUE SUBMITTED: A - Core, B - Clot, C - Smears, and send outs (flow, cytogenetics and CLL) BONE MARROW DIAGNOSIS Bone marrow biopsy, clot and aspiration: Normocellular bone marrow. Mild megakaryocytic hyperplasia. Decreased stainable iron. See comment. AM:jarrett 06/08/2023 COMMENT Flow cytometry analysis of aspirate material reveals no evidence of lymphoproliferative disorder. The complete flow report is viewable in EMR. FISH studies are pending. Case has been reviewed in consultation with Dr. Gomez who concurs with the above diagnosis. IDC:SJ BONE MARROW STUDY Slides are reviewed. CBC DATE: 06/03/2023 WBC 8.0; RBC 3.80; HGB 10.9; HCT 31.5; MCV 82.9; RDW 15.0; PLTS 281,000 SEGS 7.9%; LYMPHS 19.5%; MONOS 4.3%; EOS 3.0%; BASOS 0.5% PERIPHERAL SMEAR: Submitted. RBC: Normocytic anemia WBC: Normocytic with occasional hypersegmented neutrophil PLTS: Normomorphic BONE MARROW ASPIRATE DIFFERENTIAL: 200 cell count. Blasts % (normal 0-2): 2 Promyelocytes % (normal 1-5): 2 Myelocytes and metamyelocytes % (normal 17-41): 22 Bands and Segs % (normal 15-32): 28 Eos % (normal 1-6): 4 Basos % (normal 0-1): 0 Monocytes % (normal 0-4): 2 Erythroid Precursors % (normal 17-35): 30 Lymphocytes % (normal 7-13): 8 Plasma Cells % (normal 0-2): 2 ASPIRATE FINDINGS: Site: Not specified Spicular Cellular M/E ratio: 2.0 (Normal 1.5 - 4.0) Megakaryocytes: Occasional hypolobated form Erythropoiesis: Normoblastic Granulopoiesis: Progressive maturation CORE BIOPSY FINDINGS: Site: Not specified Adequacy: Rare bone marrow elements Cellularity %: Not applicable M/E ratio: Not applicable Megakaryocytes: Present Bony trabeculae: Not present Granulomas: Not present Lymphoid aggregate(s): Not present Atypical infiltrate(s): Not present Comment: No bone present ASPIRATE CLOT FINDINGS: Site: Not specified Marrow Particles: Many Cellularity %: 55-60% M/E ratio: Within normal limits Megakaryocytes: Mild hyperplasia Granuloma(s): Not present Lymphoid aggregate(s): Not present Atypical infiltrate(s): Not present SPECIAL STAINS (with matched controls): Iron: Rare stainable iron Reticulin: Within normal limits PAS: Highlights myeloid elements and megakaryocytes. BONE MARROW GROSS A - Received is a container labeled with the patient's name and designated bone marrow. The specimen consists of a scant amount of soft tissue. The specimen is totally submitted for cell block preparation. B - Received labeled with the patient's name and designated bone marrow is a specimen that consists of approximately 3 ml of bloody fluid that on filtration yields multiple minute fragments of blood clots measuring in aggregate 2.0 x 1.5 x 0.3 cm. The specimen is totally submitted in one cassette. C - Also received are 21 unstained and 1 peripheral stained slides. The unstained slides are submitted for appropriate staining. Also received is one green top tube which is sent to our reference lab for flow, cytogenetics and CLL. / SJ:rg 06/03/2023 TC:5 CPT: 50620, 80089, 79062 x2, 96177 x3 ADDENDUM ADDENDUM ADDENDUM ADDENDUM ADDENDUM ADDENDUM ADDENDUM ADDENDUM ADDENDUM ADDENDUM ADDENDUM ADDENDUM ADDENDUM ADDENDUM ADDENDUM 06/13/2023 15:11 ADDENDUM 06/13/2023 15:11 ADDENDUM 06/13/2023 15:11 ADDENDUM 06/13/2023 15:11 ADDENDUM 06/13/2023 15:11 CYTOGENETICS REPORT FROM [facility] INTERPRETATION: A normal female karyotype was observed in twenty metaphases analyzed. Karyotype: 46,XX[20] FLUORESCENCE IN-SITU HYBRIDIZATION (FISH) FROM [facility] INTERPRETATION: 1. No evidence of trisomy 12 (+12). 2. No evidence of [id number] (13q14.3). 3. No evidence of p53 (17p13) deletion or amplification. 4. No evidence of JOY (11q22.3) deletion. Please see complete report in e-chart or EMR
--- NOTE | 2023-06-03 08:03 | CT_ITS ---
PROCEDURE: CT GUIDED bone marrow biopsy and aspiration of the right iliac bone DATE: June 03, 2023. INDICATION: Female, 52 years old. Splenic abnormality. PHYSICIAN: Rodo Sanford M.D. RADIATION DOSAGE (If Supplied By Facility): CTDIvol = ( 16 ) mGy, DLP = ( 227.11 ) mGycm. Individualized dose optimization techniques were utilized. PROCEDURE: The risks, benefits, and alternatives to the procedure were explained to the patient. The specific risk of hemorrhage requiring further treatment or intervention was detailed and accepted. Follow-up instructions were discussed with the patient as well. Written informed consent was obtained. The patient was brought into the CT suite and placed in the prone position. . An appropriate entry site was identified. The overlying skin was prepped and draped in the usual sterile fashion. 1% lidocaine was administered subcutaneously for local anesthesia. Conscious sedation was performed. The patient received 2 mg of Versed and 50 mcg of fentanyl intravenously. Conscious sedation was started at 8:58 AM and terminated at 9:23 AM. The patient was independently monitored by the department nurse. Under CT guidance, a bone marrow biopsy and bone marrow aspirate were performed of the posterior right iliac crest using an 11-gauge bone marrow biopsy kit. The specimens were then placed in the appropriate fluid and transported to the laboratory for analysis. Hemostasis was obtained. The patient tolerated the procedure well without immediate complications. CT/Biopsy/Inj or Needle Placement IMPRESSION: Successful CT guided bone marrow biopsy and aspiration of the posterior right iliac bone as described. The conscious sedation protocol was followed. Electronically Signed: Rodo Sanford MD at 9:47 EDT ,
[2023-06-03 08:17] LABS: Absolute Lymphocyte Count 1.56 X10^3/uL (0.83-4.51); Absolute Neutrophil Count 5.8 X10^3/uL (2.0-7.7); Basophil# 0.04 X10^3/uL; Basophil% 0.5 % (0-1); Eosinophil# 0.24 X10^3/uL; Hematocrit 31.5 % (37-47); Hemoglobin 10.9 g/dL (12.0-15.0); Lymphocyte # 1.56 X10^3/ul (0.83-4.51); Lymphocyte % 19.5 % (19-41); Mean Corp Hgb Conc 34.6 g/dL (32-36); Mean Corpuscular Hgb 28.7 pg (27.0-32.0); Mean Corpuscular Volume 82.9 fL (81-99); Mean Platelet Vol. 8.7 fl (6.2-12.0); Monocyte# 0.34 X10^3/uL; Monocyte% 4.3 % (0-10); NRBC Flagged by Analyzer 0 % (0-5); Neutrophil # 5.76 X10^3/uL (2.7-7.7); Neutrophil % 71.9 % (47-70); Platelet Count 281 K/mm3 (150-450)
[2023-06-03 08:34] LABS: International Normalized Ratio 1.1; Prothrombin Time (Protime)PT. 13.8 SECONDS (11.7-14.9)
[2023-06-03 08:35] LABS: Partial Thromboplast Time 38.8 Seconds (24.1-36.2)
[2023-06-03] MEDS: Midazolam 2 MG/2 ML Syringe IV (08:58)
[2023-06-03] MEDS: fentaNYL 100 MCG/2 ML Ampul IV (09:00)
[2023-06-03] MEDS: Lidocaine 2% (20 ml mdv) 20 ML Vial INFILT (09:07)
[2023-06-03] MEDS: 0.9% Saline Lock 10 ML Syringe IV (09:32)
== END | disposition home or self-care (01) ==
PROVIDERS: Radiology Diagnostic Radiology; PCP Family Medicine; Referring Provider Internal Medicine Hematology & Oncology; Visit Provider Internal Medicine Hematology & Oncology
DX: D69.49 Other primary thrombocytopenia (principal); R16.0 Hepatomegaly, not elsewhere classified; D73.89 Other diseases of spleen; D64.9 Anemia, unspecified
CPT/HCPCS: 38222; 36415; 77012; 85025; 85610; 85730; 88305; 88311; 88313; 99156; J7050; A4216

== ENCOUNTER → 2023-07-18 | Outpatient (CLI) | payer OTHER, SELFPAY ==
[2023-07-20 15:08] LABS: HPV APTIMA, High Risk Negative (Negative)
== END | disposition home or self-care (01) ==
LOC: LABSPEC 13:25
PROVIDERS: PCP Family Medicine; Referring Provider Obstetrics & Gynecology; Visit Provider Obstetrics & Gynecology
DX: Z12.4 Encounter for screening for malignant neoplasm of cervix (principal)
CPT/HCPCS: 87624; 88175; G0145

== ENCOUNTER → 2023-10-10 | Outpatient (CLI) | payer OTHER, SELFPAY ==
--- NOTE | 2023-10-10 07:27 | BI_ITS ---
MAMMOGRAPHY - BILATERAL SCREENING REASON FOR EXAM: Female, 53 years old. Routine annual screening examination. PERTINENT HISTORY: Aunt with breast cancer. TECHNIQUE: Digital bilateral breast kiarra (3D mammographic acquisition) in the CC and MLO projections. 2-D mediolateral oblique (MLO) and craniocaudad (CC) views of both breasts were obtained. CAD: Full Field Digital Mammography with Computer Added Detection was performed. COMPARISON: Comparison is made with prior study dated April 06, 2023 and October 06, 2021. FINDINGS: Breast Composition: There are scattered areas of fibroglandular density. There are no dominant masses or suspicious calcifications. Stable small benign-appearing bilateral axillary lymph nodes. No other significant abnormalities are identified. There has been no significant change since the prior study. BI/SCRN MAMM (CAD)W/KIARRA BILAT IMPRESSION: Stable bilateral screening mammogram. Yearly follow-up mammogram recommended. (A) ASSESSMENT CATEGORY: BIRADS Category 2: Benign. A letter regarding these results will be sent to the patient by the facility within 30 days. Approximately 10% of breast cancers are not detected by mammography. A normal mammogram should not delay biopsy of a clinically suspicious abnormality. [id number] Electronically Signed: Rodo Sanford MD at 15:43 EST ,
--- OUTSIDE RECORDS SUMMARY | 2023-10-10 07:28 | XMS RPT_ITS | CCD ---
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 Phone BROWN, MATI Unavailable Unavailable BROWN, MATI Unavailable Unavailable SEESE, LAURA Q Unavailable Unavailable BROWN, MATI Unavailable Unavailable BROWN, MATI Unavailable Unavailable BROWN, MATI Unavailable Unavailable BROWN, MATI Unavailable Unavailable BROWN, MATI Unavailable Unavailable Allergies Allergy Classification Reported Allergen(s) Allergy Type Date of Onset Reaction(s) Facility (1 source) Sulfonamides (Antibiotic); Translations: [SULFA (SULFONAMIDE ANTIBIOTICS)] Propensity to adverse reactions to drug (disorder) 6 [facility] Repository (1 source) GENTA-GEL; Translations: [GENTA-GEL] Propensity to adverse reactions to drug (disorder) 6 [facility] Repository Results Test Name Value Interpretation Reference Range Facil ity Encounters Encounter Date Encounter Type Care Provider Facility Start: 02-10-2018 End: 02-11-2018 Ambulatory MATI BROWN Facility:[facility] Start: 11-30-2017 End: 12-12-2017 Ambulatory [facility] Start: 08-29-2017 End: 08-29-2017 Ambulatory [facility] Start: 08-26-2017 End: 08-27-2017 Ambulatory MATI BROWN Facility:[facility] Start: 08-24-2017 End: 2017 Ambulatory MATI BROWN Facility:[facility] Start: 07-28-2017 End: 07-28-2017 Ambulatory [facility] Start: 07-05-2017 End: 07-05-2017 Ambulatory [facility] Start: 06-17-2017 End: 06-18-2017 Ambulatory LAURA Q SEESE Facility:[facility] Payers Date Payer Category Payer Unknown [id number] Summary Purpose Family History No Family History Records FoundNo Family History Records Found Advance Directives No Advanced Directives Records FoundNo Advanced Directives Records Found Additional Source Comments INFORMATION SOURCE (unrecogn ized section and content) DATE CREATED AUTHOR AUTHOR'S MIKEY LATISHACHERI 03/24/2018 [facility] FOR RECORDS PERTAINING TO PATIENTS WHO ARE OR HAVE BEEN ENROLLED IN A CHEMICAL DEPENDENCY/SUBSTANCEABUSE PROGRAM, SOME INFORMATION MAY BE OMITTED. This clinical summary was aggregated from multiple sources. Caution should be exercised in using it in the provision of clinical care. This summary normalizes information from multiple sources, and as a consequence, information in this document may materially change the coding, format and clinical context of patient data. In addition, data may be omitted in some cases. CLINICAL DECISIONS SHOULD BE BASED ON THE PRIMARY CLINICAL RECORDS. [employer] [facility]. provides no warranty or guarantee of the accuracy or completeness of information in this document.
== END | disposition home or self-care (01) ==
LOC: OPBI 07:26
PROVIDERS: PCP Family Medicine; Referring Provider Obstetrics & Gynecology; Visit Provider Obstetrics & Gynecology
DX: Z12.31 Encounter for screening mammogram for malignant neoplasm of breast (principal)
CPT/HCPCS: 77063; 77067

== ENCOUNTER → 2023-12-06 | Outpatient (CLI) | payer OTHER, SELFPAY ==
--- OUTSIDE RECORDS SUMMARY | 2023-12-06 06:35 | XMS RPT_ITS | CCD ---
Author Name Unknown Address [address] [place] [address] Organization [facility] Care Team Providers Care Stylist Assistant Name Role Phone BROWN, MATI Unavailable Unavailable [...] to adverse reactions to drug (disorder) 6 [facility] Repository (1 source) GENTA-GEL; Translations: [GENTA-GEL] Propensity to adverse reactions to drug (disorder) 6 [facility] Repository Results Test Name Value Interpretation Reference Range Facil ity Encounters Encounter Date Encounter Type Care Provider Facility Start: 02-10-2018 End: 02-11-2018 Ambulatory MATI BROWN Facility:[facility] Start: 11-30-2017 End: 12-12-2017 Ambulatory [facility] Start: 08-29-2017 End: 08-29-2017 Ambulatory [facility] Start: 08-26-2017 End: 08-27-2017 Ambulatory MATI BROWN Facility:[facility] Start: 08-24-2017 End: 2017 Ambulatory MATI BROWN Facility:[facility] Start: 07-28-2017 End: 07-28-2017 Ambulatory [facility] Start: 07-05-2017 End: 07-05-2017 Ambulatory [facility] Start: 06-17-2017 End: 06-18-2017 Ambulatory LAURA Q SEESE Facility:[facility] Payers Date Payer Category Payer Unknown [id number] Summary Purpose Family History No Family History Records FoundNo Family History Records Found Advance Directives No Advanced Directives Records FoundNo Advanced Directives Records Found Additional Source Comments INFORMATION SOURCE (unrecogn ized section and content) DATE CREATED AUTHOR AUTHOR'S MIKEY LATISHACHERI 03/24/2018 [facility] FOR RECORDS PERTAINING TO PATIENTS WHO [...] BE BASED ON THE PRIMARY CLINICAL RECORDS. [employer]. provides no warranty or guarantee of the accuracy or completeness of information in this document.
--- NOTE | 2023-12-06 06:48 | CT_ITS ---
STUDY: CT ABDOMEN AND PELVIS WITH CONTRAST REASON FOR EXAM: Female, 53 years old. F/U SPLEEN LESION RADIATION DOSAGE (If Supplied By Facility): CTDIvol = ( 17.70 ) mGy, DLP = ( 1012.52 ) mGycm TECHNIQUE: IV 100mL Isovue-370 was administered. Transaxial images were obtained from the dome of the diaphragm to the symphysis pubis. Multiplanar coronal and sagittal images were reformatted. Individualized Dose Optimization Techniques Were Used For This CT. COMPARISON: Prior study dated: 05/26/2023 FINDINGS: The visualized lung bases are unremarkable. The visualized portions of the heart are within normal limits. Benign-appearing liver cysts are again seen. Previously noted enhancing lesion in the right lobe of the liver is not definitely identified on this exam and better evaluated by MRI. Normal gallbladder and extrahepatic biliary system. Stable cyst 3 cm splenic lesion unchanged. Normal pancreas. Normal bilateral adrenal glands. Normal visualized stomach. Normal in caliber small bowel loops. No evidence of acute diverticulitis. The appendix is visualized and appears normal. Normal abdominal aorta. No retroperitoneal adenopathy. 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 Normal left kidney. Normal urinary bladder. 2.5 cm left ovarian/adnexal cyst unchanged. No discrete abdominal wall hernia. Essentially unremarkable osseous structures. CT/Abdomen/Pelvis W IV Cont ONLY IMPRESSION: 1. Right lobe liver lesion not clearly identified on this examination. 2. Stable 3 cm splenic lesion seen unchanged. 3. No focal acute inflammatory process. 4. Left ovarian cyst unchanged prior exam. Electronically Signed: Ken Padgett MD at 12:29 EST ,
[2023-12-06 07:13] LABS: CREATININE FINGERSTICK 1.1 mg/dL (0.55-1.02)
[2023-12-06 07:13] LABS: Absolute Lymphocyte Count 1.55 X10^3/uL (0.83-4.51); Absolute Neutrophil Count 4.5 X10^3/uL (2.0-7.7); Basophil# 0.05 X10^3/uL; Basophil% 0.7 % (0-1); Eosinophil# 0.35 X10^3/uL; Eosinophils% 5.1 % (0-5); Hemoglobin 10.8 g/dL (12.0-15.0); Lymphocyte # 1.55 X10^3/ul (0.83-4.51); Lymphocyte % 22.4 % (19-41); Mean Corp Hgb Conc 32.7 g/dL (32-36); Mean Corpuscular Hgb 26.5 pg (27.0-32.0); Mean Corpuscular Volume 80.9 fL (81-99); Mean Platelet Vol. 9.8 fl (6.2-12.0); Monocyte# 0.45 X10^3/uL; Monocyte% 6.5 % (0-10); NRBC Flagged by Analyzer 0 % (0-5); Neutrophil # 4.49 X10^3/uL (2.7-7.7); Neutrophil % 64.9 % (47-70); Platelet Count 339 K/mm3 (150-450); RBC Distribution Width CV 15.4 % (11.6-14.6); RBC Distribution Width SD 44.4 fl (35.1-43.9); Red Blood Count 4.08 M/mm3 (4.2-5.4); White Blood Count 6.9 K/mm3 (4.4-11.0)
[2023-12-06 08:00] LABS: AST(SGOT) 19 U/L (15-37); Alanine Aminotransfer ALT/SGPT 30 U/L (13-56); Albumin, Serum 3.9 g/dL (3.2-5.0); Alkaline Phosphatase 135 U/L (45-117); Anion Gap 4 (5-15); BUN 15 mg/dL (7-18); BUN/Creat Ratio 13.2 RATIO (10-20); Calcium,Total 9.3 mg/dL (8.5-10.1); Chloride 109 mmol/L (98-107); Creatinine, Serum 1.14 mg/dL (0.55-1.02); EST Glomerular Filtration Rate 53 mL/min (>60); Est Glom Filt Rate - Afr Amer 64 mL/min (>60); Ferritin 101 ng/mL (8-252); Globulin 3.8 g/dL (2.2-4.2); Glucose 98 mg/dL (74-106); LDH 216 U/L (84-246); Potassium 3.4 mmol/L (3.5-5.1); Protein, Total 7.7 g/dL (6.4-8.2); Sodium Level 141 mmol/L (136-145)
== END | disposition home or self-care (01) ==
PROVIDERS: PCP Family Medicine; Referring Provider Internal Medicine Hematology & Oncology; Visit Provider Internal Medicine Hematology & Oncology
DX: D47.2 Monoclonal gammopathy (principal); D73.89 Other diseases of spleen
CPT/HCPCS: 36415; 74177; 80053; 82728; 83615; 85025; Q9967

== ENCOUNTER 2023-12-21 10:58 | Day surgery (SDC) | payer OTHER, SELFPAY ==
[2023-12-21] VITALS (7 sets, daily range): BP systolic 94–110; BP diastolic 60–69; PULSE 74–85; RESP 14–16; TEMP 36.1–37.3; O2SAT 95–100; BMI 32.7
[2023-12-21] MEDS: Lactated Ringers 1,000 ML 15 ML IV (11:33)
--- NOTE | 2023-12-21 13:16 | PCM.HP.STD ---
HPI - General HPI Narrative ELISA PATTON, is a 53 F who presents for right thumb volar A1 elena release. no changes to h and p. ok to proceed. right thumb marked. discussed rab, post op instructions. no narcotics, otc meds and local anesthetic. ok for gentle ROM after, FU in office 2 days. MR#: [id number] Acct: [id number] Name: ELISA PATTON Rep #: [id number] : 1970 Provider: Dr. Farhan Greenberg MD Age/Sex: 53/F Location: [facility] [place] Status: Signed with Addenda ADDENDUM by Isela Cho on 11/08/23 at 1354 Office Procedure Documentation entered by Isela Cho 11/08/23 13:54: Ortho Injections Injections Details: Obtained consent for injection. Under sterile conditions, injected the patients bilateral thumb with 0.5cc kenalog 1cc Bupivacaine in each thumb. The patient tolerated the injection well without any noted complication. Patient should call our office if redness develops, pain worsens or if they have any concerns. Office Meds Kenalog 40 mg/mL suspension for injection Performing Provider: Farhan Greenberg MD Performing Location: [facility] Administered by: Farhan Greenberg MD on 11/08/23 13:51 Dose Route Admin Location Dispensed Lot Number Expiration Date [facility] [employer] 40 mg intra-articular BL thumbs 1 mL [id number] 03/03/24 8336-9410-29 [facility] Comments: bupivacaine 0.25% .5cc lot : [id number] exp : 11/03/23 ND : 4753-1397-66 Date cc: ~* Signed Intake Vital Signs 09/29/2310:31 11/01/2408:55 Height 5 ft 2 in 5 ft 2 in Weight: 182 lb 8 oz 183 lb BMI 33.3 33.5 BP 120/60 112/80 Blood Pressure Location Lt brachial Lt brachial Position Sitting Sitting Respiration 16 14 Pulse 107 H 92 Pulse Source Monitor Monitor Temp 97.7 F L 98.2 F Temp Source Temporal Temporal Pulse Oximetry (%) 98 99 Oxygen Delivery Method room air room air Intake Visit Reasons: BL HANDS Accompanied by: Self Is patient in pain?: Yes (10) Allergies clindamycin Allergy (Severe, Verified 11/08/23 09:12) burning & watery eyesSulfa (Sulfonamide Antibiotics) Allergy (Severe, Verified 11/08/23 09:12) Hiveserythromycin base Allergy (Verified 11/08/23 09:12) eye redness, watering, swelling Medications clobetasol 0.05 % topical ointment 1 applic topical BID 2 weeks #60 grams 05/06/21 [Rx Confirmed 11/08/23] nystatin 100,000 unit/gram topical powder 1 applic topical BID #60 grams 03/10/22 [Rx Confirmed 11/08/23] rosuvastatin 10 mg tablet 10 mg PO DAILY #90 tabs 12/20/22 [Rx Confirmed 11/08/23] omeprazole magnesium 20 mg tablet,delayed release (Prilosec OTC) 20 mg PO BID #180 tabs 03/22/23 [Rx Confirmed 11/08/23] metoprolol succinate 50 mg tablet,extended release 24 hr 50 mg PO BID #60 tabs 08/16/23 [Rx Confirmed 11/08/23] valacyclovir 500 mg tablet 500 mg PO DAILY #90 tabs 08/17/23 [Rx Confirmed 11/08/23] triamterene 37.5 mg-hydrochlorothiazide 25 mg tablet 1 tab PO QAM #90 tabs 10/12/23 [Rx Confirmed 11/08/23] venlafaxine 150 mg capsule,extended release 24 hr (Effexor XR) 150 mg PO DAILY #90 caps 10/12/23 [Rx Confirmed 11/08/23] clonazepam 1 mg tablet (Klonopin) 1 mg PO QHS #30 tabs 11/01/23 [Rx Confirmed 11/08/23] [facility] Medical History (Updated 11/08/23 @ 09:56 by Farhan Greenberg MD) Anemia Back problem Bleeding disorder blood transfusion Breast lump Chronic headaches Dermatitis Emotional disorder Gammopathy Heart murmur Heart valve problem Hyperlipidemia Hypertension Lesion of spleen Obesity Polycystic ovaries Seasonal allergies Trigger thumb of right hand Surgical History History of bone marrow biopsy History of D&C History of tonsillectomy and adenoidectomy History of tubal ligation liposuction to chin Family History Father Alcohol abuse Anemia Anxiety Arthritis Depression Mental disorder Suicide attempt Heart disease Hypertension High cholesterolMother Anemia Anxiety Arthritis Depression Hypertension High cholesterol Mental disorder DiabetesGrandmother Bleeding disorderAunt Breast cancer Myocardial infarctionGrandfather Myocardial infarctionGrandmother CVA (cerebral vascular accident) Social History Smoking Status: Former smoker alcohol intake: current alcohol intake frequency: a few times a month Alcohol type: wine substance use type: does not use caffeine: Yes what type of physical activity do you participate in: walking and other details: rowing frequency: 1-2 times per week HPI BL HANDS Details: This documentation accurately reflects the service provided and the decisions made by me, Dr. Farhan Greenberg MD 11/08/23 0908. Part of today?s visit was documented by [ ], acting as scribe. ELISA PATTON is a 53 year old F here today for bilateral trigger thumbs. Worse on the right. The patient is interested in repeat cortisone injections as well as definitive surgical management on the right side. She is using a splint on the right side the right side is much worse quite painful at the base of the thumb. Ortho Exam General General: Yes no acute distress Neurologic: Yes alert and Yes oriented x3 Psychologic: Yes reasonable and appropriate Right Wrist/Hand Skin/Wound: Yes CDI, No Swelling, No Ecchymosis and Yes nail intact A1 elena trigger: Yes (thumb) Right Wrist: Yes ROM-Extension 0-60, ROM-Flexion 0-80, ROM-Pronation 0-80 and ROM-Supination 0-90 Motor: EPL: 5, FDP-2: 5, 1st Dorsal Interosseous: 5 and APB: 5 Sensation: Radial: I, Ulnar: I and Median: I Left Wrist/Hand Skin/Wound: Yes CDI, No Swelling, No Ecchymosis, Yes nail intact, Yes capillary refill normal and No erythema A1 elena trigger: Yes (thumb) Left Wrist: Yes ROM-Extension 0-60, Yes ROM-Flexion 0-80, Yes ROM-Pronation 0-80 and Yes ROM-Supination 0-90 Motor: EPL: 5, FDP-2: 5, 1st Dorsal Interosseous: 5 and APB: 5 Sensation: Radial: I, Ulnar: I and Median: I Coding Level of Care Code Attention Collateral Specialist Diagnoses Trigger thumb of left hand M65.312 Trigger thumb of right hand M65.311 Comment [id number] and inject tendon x 2 Assessment and Plan Assessment and Plan (1) Trigger thumb of left hand: Status: Acute Plan: 52 F bilat trigger thumbs. Can try rest ice anti-inflammatories activity modifications thumb spica bracing cortisone injections or trigger thumb surgical release. Would like to repeat bilateral trigger finger injections. Also wants to proceed with right thumb volar A1 elena release surgical management. Of the. The patient understands wishes to proceed with surgery. I warned the patient about bowstringing damage to the tendon or other structures like the radial sensory nerve as well. This is generally he had 2 weeks to heal the incision for recovery and 6 weeks avoiding heavy lifting or gripping. Patient understands wished to go ahead with surgery we will delay this until about the end of December due to the cortisone injection today. Pros and cons risks and benefits were discussed with the patient including but not limited to infection, pain, stiffness, bleeding, damage to surrounding structures, neurovascular injury, recurrence or retear, failure or wear of hardware or fixation, instability, fracture, deep vein thrombosis and pulmonary embolism, anesthetic risks, , patient dissatisfaction, need for further surgery and other risks. Patient understood and wished to proceed with surgery, and signed the informed consent documentation. Pros and cons risks and benefits of right thumb A1 elena steroid injection were discussed. Patient wished to proceed. Risks include but not limited to infection, pain, stiffness, damage to other structures, neurovascular injury, wear further tear of the tendon and other structures such as the skin, bleeding, allergic reaction, acute flare reaction and other risks. Obtained informed consent for injection. Anterior volar aspect of the base of the thumb overlying the A1 elena area was prepped with chlorhexidine solution allowed to thoroughly dry over 3 minutes. Used Gebauer spray per bottle instructions. Using sterile technique, injected the left thumb A1 elena with 1 cc 0.25% bupivacaine and 1 cc 40 mg/mL kenalog. Bandage placed.The patient tolerated the injection well without any noted complication. Adrian a fluid wave distally. Red flag symptoms were discussed such as redness, swelling, discharge, drainage, pain worsens or if they have any concerns to present to the ED or to call the clinic immediately. Pros and cons risks and benefits of left thumb A1 elena steroid injection were discussed. Patient wished to proceed. Risks include but not limited to infection, pain, stiffness, damage to other structures, neurovascular injury, wear further tear of the tendon and other structures such as the skin, bleeding, allergic reaction, acute flare reaction and other risks. Obtained informed consent for injection. Anterior volar aspect of the base of the thumb overlying the A1 elena area was prepped with chlorhexidine solution allowed to thoroughly dry over 3 minutes. Used Gebauer spray per bottle instructions. Using sterile technique, injected the left thumb A1 elena with 1 cc 0.25% bupivacaine and 1 40 mg/mL kenalog. The patient tolerated the injection well without any noted complication. Adrian a fluid wave distally. Bandage placed. Red flag symptoms were discussed such as redness, swelling, discharge, drainage, pain worsens or if they have any concerns to present to the ED or to call the clinic immediately. (2) Trigger thumb of right hand: [facility] Medical History (Updated 12/13/23 @ 15:[address] Yaniv Crawford MD) Alcohol use Anemia Anxiety Back problem Bleeding disorder blood transfusion Breast lump Cancer Chronic headaches Depression Dermatitis Easy bruising Emotional disorder Former smoker Gammopathy Gastric reflux Heart murmur Heart valve problem High cholesterol History of echocardiogram History of edema History of ulceration Hyperlipidemia Hypertension Lesion of spleen Migraine headache Normal Holter exam Obesity Polycystic ovaries Restless legs Seasonal allergies Thyroid disease Trigger thumb of right hand Vertigo Wears glasses Home Medications rosuvastatin 10 mg tablet 10 mg PO DAILY #90 tabs 12/20/22 [Rx Last Taken Unknown] omeprazole magnesium 20 mg tablet,delayed release (Prilosec OTC) 20 mg PO BID #180 tabs 03/22/23 [Rx Last Taken 12/21/23 06:15] valacyclovir 500 mg tablet 500 mg PO DAILY #90 tabs 08/17/23 [Rx Last Taken Unknown] triamterene 37.5 mg-hydrochlorothiazide 25 mg tablet 1 tab PO QAM #90 tabs 10/12/23 [Rx Last Taken Unknown] venlafaxine 150 mg capsule,extended release 24 hr (Effexor XR) 150 mg PO DAILY #90 caps 10/12/23 [Rx Last Taken 12/21/23 06:15] clonazepam 1 mg tablet (Klonopin) 1 mg PO QHS #30 tabs 11/01/23 [Rx Last Taken Unknown] metoprolol succinate 50 mg tablet,extended release 24 hr 50 mg PO BID #60 tabs 11/24/23 [Rx Last Taken 12/21/23 06:15] cariprazine 3 mg capsule (Vraylar) 3 mg PO DAILY 12/05/23 [History Last Taken Unknown] clobetasol 0.05 % topical ointment 1 applic topical DAILY 12/05/23 [History Last Taken Unknown] nystatin 100,000 unit/gram topical powder 1 applic topical BID PRN SKIN 12/05/23 [History Last Taken Unknown] Allergy/AdvReac Type Severity Reaction Status Date / Time clindamycin Allergy Severe burning & Verified 12/21/23 11:19 watery eyes Sulfa (Sulfonamide Allergy Severe Hives Verified 12/21/23 11:19 Antibiotics) erythromycin base Allergy eye Verified 12/21/23 11:19 redness, watering, swelling Family History Father Alcohol abuse Anemia Anxiety Arthritis Depression Mental disorder Suicide attempt Heart disease Hypertension High cholesterol Mother Anemia Anxiety Arthritis Depression Hypertension High cholesterol Mental disorder Diabetes Grandmother Bleeding disorder Aunt Breast cancer Myocardial infarction Grandfather Myocardial infarction Grandmother CVA (cerebral vascular accident) Surgical History History of bone marrow biopsy History of D&C History of loop electrical excision procedure (LEEP) History of tonsillectomy and adenoidectomy History of tubal ligation liposuction to chin Social History Smoking Status: Former smoker alcohol intake: current alcohol intake frequency: a few times a month Alcohol type: wine substance use type: does not use caffeine: Yes what type of physical activity do you participate in: walking and other details: rowing frequency: 1-2 times per week Vital Signs Vital Signs Vital Signs: 12/21/23 11:20 12/21/23 11:20 Temperature 97 F L Temperature Source Temporal Pulse Rate 79 Respiratory Rate 16 Respiratory Pattern Normal Blood Pressure 110/66 Blood Pressure Mean 80 Blood Pressure Source Monitor Blood Pressure Position Semi-Fowlers Blood Pressure Location Left Arm Pulse Ox 100 Oxygen Delivery Method Room Air Weight Weight: 179 lb Body Mass Index (BMI) 32.7
[2023-12-21] MEDS: Cefazolin 2 GM in 0.9% Normal Saline (100mL Bag) 100 ML IV (13:29)
[2023-12-21] MEDS: Bupivacaine Mpf 0.5% 30 ML VIAL (13:53)
--- NOTE | 2023-12-21 13:56 | PCM.OPRPT ---
Problems Associated Problem List Diagnoses (1) Trigger thumb of right hand: Report of Operation Date of Procedure: 12/21/23 Pre-Operative Diagnosis: R trigger thumb Post-Operative Diagnosis: same Surgery/Procedure Performed:: Right trigger thumb release Surgeon: Farhan Greenberg Type of Anesthesia: General and Local Anesthesiologist: Des Bermudez Estimated Blood Loss (mL): 5 Description of Procedure: Patient brought to the operating room theater. Placed supine on the table. General anesthesia induced. 2 g IV Ancef ministered prior to the start of the procedure. All bony prominences padded. SCDs on the legs. Tourniquet applied to the right arm appropriately padded. Hand and upper extremity prepped and draped in the usual sterile fashion with chlorhexidine-based prep solution allowing over 3 minutes drying time prior to draping. Preoperative timeout performed site patient and the surgery. Began by elevating limb and inflating the tourniquet. Made a standard transverse incision centered at the base of the thumb at the proximal crease where the thumb joints onto the hand over the volar A1 elena. Carried dissection down through skin. Subcutaneous tissue spread longitudinally protecting the digital nerves. Used bipolar cautery to achieve meticulous hemostasis. Identified the elena. Incised the elena longitudinally. Ensure that there is no clicking catching or locking or residual bands after elena release. Release was complete. Tourniquet let down meticulous hemostasis achieved wound thoroughly irrigated. With wet and dry dressing followed by closure of the skin with 4-0 nylon suture horizontal mattress configuration. Adaptic 4 x 4 gauze and Ana wrap placed onto the incision. Patient woken up from a general anesthetic transferred off the operating table taken to postanesthetic care unit in stable condition. All sponge needle instrument counts were correct plan for the patient follow-up in 2 days time keep the incision clean and dry okay to start some gentle thumb range of motion and I will change the dressing in 2 days time. cpt [id number] Complications none Admit VTE Documentation VTE Present on Admission: No VTE Mechan Device Prophylaxis: SCD's VTE Pharm Prophylaxis ordered?: No Reason prophylaxis not ordered:: Treatment Not Indicated Procedures Musculoskeletal [id number]: Other Procedure See Report
== END 2023-12-21 15:35 | disposition home or self-care (01) ==
LOC: SDC 10:59 → AC 11:00
PROVIDERS: PCP Family Medicine; Referring Provider Family Medicine; Visit Provider Orthopaedic Surgery Sports Medicine
PROC: (CPT 26055; principal; 2023-12-21 12:20)
DX: M65.311 Trigger thumb, right thumb (principal); I10 Essential (primary) hypertension; M65.312 Trigger thumb, left thumb; Z87.891 Personal history of nicotine dependence; E78.00 Pure hypercholesterolemia, unspecified; Z79.899 Other long term (current) drug therapy
CPT/HCPCS: 26055; 01810; J7120; J2405

== ENCOUNTER → 2024-01-21 | Outpatient (CLI) | payer OTHER, SELFPAY ==
--- NOTE | 2024-01-21 10:11 | US_ITS ---
STUDY: THYROID ULTRASOUND REASON FOR EXAM: Female, 53 years old. Follow-up thyroid nodules. TECHNIQUE: Ultrasound evaluation of the thyroid was performed with real-time and static diego-scale imaging. COMPARISON: Thyroid ultrasound 01/15/2023. FINDINGS: RIGHT LOBE: The right lobe of the thyroid gland measures 4.9 x 2.0 x 2.3 cm. There is a heterogeneous echotexture. 3 nodules in the right thyroid lobe. Nodule 1 in in the anterior mid thyroid lobe is mildly hypoechoic measuring 1.04 x 0.39 x 0.68 cm. Nodule 2 in the central aspect of the mid thyroid lobe is mildly hypoechoic. This measures 0.94 x 0.42 x 0.65 cm nodule 3 in the lower aspect of the posterior right thyroid lobe is heterogeneous in echogenicity. It is mixed solid and cystic but predominantly solid. This measures 2.25 x 1.62 x 1.84 cm. LEFT LOBE: The left lobe of the thyroid gland measures 4.4 x 1.3 x 1.6 cm. There is a heterogeneous echotexture. There are 2 nodules in the left thyroid lobe. Nodule 1 is anechoic cyst in the posterior upper thyroid lobe. This measures 0.52 x 0.30 x 0.39 cm. Nodule 2 is in the mid thyroid lobe and is mixed solid and cystic. The solid component is isoechoic.. This measures 0.90 x 0.49 x 0.62 cm. ISTHMUS: The isthmus measures 0.14 cm. . There is a solid lymph node in the right neck just lateral to the right thyroid lobe. This measures 1.3 x 0.9 x 0.4 cm. The hilum of the lymph node contains normal fat. US/Thyroid IMPRESSION: 1. 3 nodules in the right thyroid lobe and 2 nodules in the left thyroid lobe. 2. Nodule 1 in the right anterior mid thyroid lobe is mildly hypoechoic measuring 1.04 x 0.39 x 0.68 cm, previously 1.04 x 0.44 x 1.04 cm. TI-RADS points: 4. TI-RADS category: TR4. This nodule is moderately suspicious. Recommend follow-up thyroid ultrasounds at 1, 2 and 4 years. 3. Nodule 2 in the central aspect of the right mid thyroid lobe is mildly hypoechoic. This measures 0.94 x 0.42 x 0.65 cm, previously 0.81 x 0.34 x 0.54 cm. TI-RADS points: 4. TI-RADS category: TR4. This nodule is moderately suspicious but no FNA or follow-up is necessary given the small size of this nodule. 4. Nodule 3 in the right lower thyroid lobe is mixed solid and cystic. This measures 2.25 x 1.62 x 1.84 cm, previously 1.82 x 1.45 x 1.53 cm. This nodule is mixed cystic and solid, hypoechoic, [id number], smoothly marginated and contains no echogenic foci. TI-RADS points: 3. TI-RADS category: TR3. This nodule is mildly suspicious. Recommend follow-up thyroid ultrasounds at 2 and 4 years. 5. Nodule 1 in the left upper thyroid lobe is anechoic cyst. This measures 0.52 x 0.30 x 0.39 cm, previously 0.51 x 0.27 x 0.46 cm. TI-RADS points: 0. TI-RADS category: TR1. This nodule is benign and no FNA or follow-up is necessary. 6. Nodule 2 in the left mid thyroid lobe is mixed solid and cystic. This measures 0.90 x 0.49 x 0.62 cm, previously 1.10 x 0.52 x 0.71 cm. This nodule is mixed cystic and solid, hypoechoic, [id number], smoothly marginated and contains no echogenic foci. TI-RADS points: 3. TI-RADS category: TR3. This nodule is mildly suspicious but no FNA or follow-up is necessary given the small size of this nodule. Electronically Signed: Pineda Lee MD at 13:09 EDT ,
== END | disposition home or self-care (01) ==
LOC: US 10:09
PROVIDERS: PCP Family Medicine; Referring Provider Surgery; Visit Provider Surgery
DX: E04.1 Nontoxic single thyroid nodule (principal)
CPT/HCPCS: 76536

== ENCOUNTER → 2024-01-25 | Outpatient (CLI) | payer OTHER, SELFPAY ==
[2024-01-25 09:17] LABS: T4 Total, Thyroxin 9.4 ug/dL (4.8-13.9); Thyroid Stim Hormone (TSH) 1.33 uIU/mL (0.358-3.74)
== END | disposition home or self-care (01) ==
LOC: PAVLAB 08:29
PROVIDERS: PCP Family Medicine; Referring Provider Surgery; Visit Provider Surgery
DX: E04.1 Nontoxic single thyroid nodule (principal)
CPT/HCPCS: 36415; 84436; 84443; 84481

== ENCOUNTER → 2024-07-27 | Outpatient (CLI) | payer OTHER, SELFPAY ==
--- OUTSIDE RECORDS SUMMARY | 2024-07-27 12:24 | XMS RPT_ITS | CCD ---
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 Name Role Phone MATI AUGUSTINE DO Primary Care Physician DR ELIANE MOLINA DO Attending Unavailable MATI AUGUSTINE DO Primary Care Unavailable Allergies Allergy Classification Reported Allergen(s) Allergy Type Date of Onset Reaction(s) Facility (1 source) Sulfonamides (Antibiotic); Translations: [SULFA (SULFONAMIDE ANTIBIOTICS)] Propensity to adverse reactions to drug (disorder) [facility] (1 source) GENTA-GEL; Translations: [GENTA-GEL] Propensity to adverse reactions to drug (disorder) [facility] (1 source) Sulfonamide; Translations: [sulfa drugs] Drug allergy [facility] Medications Current Medications Medication Drug Class(es) Dates Sig (Normalized) Sig (Original) acetaminophen 325 mg / oxyCODONE hydrochloride 5 mg oral tablet (1 source) Opioid Agonist Start: 02-04-2024 End: 02-09-2024 take 1 tablet by mouth every six hours as needed for pain Percocet 5 mg-325 mg oral tablet Dose = 1 tab(s), Oral, q6h, PRN for pain, X 5 day(s), # 12 tab(s), 0 Refill(s), Hand pain, 77.3 Start Date: 02/04/24 Stop Date: 02/09/24 Status: Ordered amoxicillin 875 mg / clavulanate 125 mg oral tablet (1 source) Penicillin-class Antibacterial Start: 02-04-2024 End: 02-11-2024 take 1 tablet by mouth every twelve hours amoxicillin-clav ulanate 875 mg-125 mg oral tablet 1 tab(s), Oral, q12h, X 7 day(s), # 14 tab(s), 0 Refill(s), 02/11/24 8:08:00 AM EDT, 77.3 Start Date: 02/04/24 Stop Date: 02/11/24 Status: Ordered Problems Problem Classification Problem Date Documented Da te Episodic/Chronic Anxiety disorders (1 source) Generalized anxiety disorder 12-04-2020 Chronic Mood disorders (1 source) Depressive disorder 12-04-2020 Chronic Other connective tissue disease (1 source) Neuralgia; Translations: [Neuralgia and neuritis, unspecified] Onset: 02-04-2024 Episodic Other connective tissue disease (1 source) Synovitis and tenosynovitis; Translations: [Synovitis and tenosynovitis, unspecified] Onset: 02-04-2024 Episodic Results Test Name Value Interpretation Reference Range Facility .Auto Diffon 02-04-2024 Basophil, Absolute 0.1 10 3/mcL Normal 0.0-0.2 [facility] ([place]) Comment on above: Performed By: #### G FR, CBC, ADIFF, ANEU, MDW, ESR, BMP, CRP #### [address] [address] Basophils/100 WBC (Bld) 0.9 % Normal 0.0-2.5 [facility] ([place]) Comment on above: Performed By: #### G FR, CBC, ADIFF, ANEU, MDW, ESR, BMP, CRP #### [address] [address] Eosinophil, Absolute 0.2 10 3/mcL Normal 0.0-0.4 [facility] ([place]) Comment on above: Performed By: #### G FR, CBC, ADIFF, ANEU, MDW, ESR, BMP, CRP #### [address] [address] Eosinophils/100 WBC (Bld) 2.1 % Normal 0.0-7.0 [facility] ([place]) Comment on above: Performed By: #### G FR, CBC, ADIFF, ANEU, MDW, ESR, BMP, CRP #### [address] [address] Lymphocyte, Absolute 1.2 10 3/mcL Normal 0.8-3.9 [facility] ([place]) Comment on above: Performed By: #### G FR, CBC, ADIFF, ANEU, MDW, ESR, BMP, CRP #### [address] [address] Lymphocytes/100 WBC (Bld) 13.3 % Normal 10.0-50.0 [facility] ([place]) Comment on above: Performed By: #### G FR, CBC, ADIFF, ANEU, MDW, ESR, BMP, CRP #### [address] [address] Monocyte, Absolute 0.4 10 3/mcL Normal 0.2-1.0 [facility] ([place]) Comment on above: Performed By: #### G FR, CBC, ADIFF, ANEU, MDW, ESR, BMP, CRP #### [address] [address] Monocytes/100 WBC (Bld) 4.6 % Normal 1.7-13.0 [facility] ([place]) Comment on above: Performed By: #### G FR, CBC, ADIFF, ANEU, MDW, ESR, BMP, CRP #### [address] [address] Neutrophils/100 WBC (Bld) 79.1 % Normal 37.0-80.0 [facility] ([place]) Comment on above: Performed By: #### G FR, CBC, ADIFF, ANEU, MDW, ESR, BMP, CRP #### [address] [address] .GFRon 02-04-2024 GFR 53 ml/min/1.73sqm Normal [facility] ([place]) Comment on above: Result Comment: GFR Population mean for , Non- Americans Ages 20-29 = 116 mL/min/1.73 sq.m. Ages 30-39 = 107 mL/min/1.73 sq.m. Ages 40-49 = 99 mL/min/1.73 sq.m. Ages 50-59 = 93 mL/min/1.73 sq.m. Ages 60-69 = 85 mL/min/1.73 sq.m. Ages 70+ = 75 mL/min/1.73 sq.m. Chronic Kidney Disease: Less than 60 mL/min/1.73 square meters End Stage Renal Disease: Less than 15 mL/min/1.73 square meters Performed By: #### G FR, CBC, ADIFF, ANEU, MDW, ESR, BMP, CRP #### [address] [address] GFR Non- 44 ml/min/1.73sqm Normal [facility] ([place]) Comment on above: Result Comment: GFR Population mean for , Non- Americans Ages 20-29 = 116 mL/min/1.73 sq.m. Ages 30-39 = 107 mL/min/1.73 sq.m. Ages 40-49 = 99 mL/min/1.73 sq.m. Ages 50-59 = 93 mL/min/1.73 sq.m. Ages 60-69 = 85 mL/min/1.73 sq.m. Ages 70+ = 75 mL/min/1.73 sq.m. Chronic Kidney Disease: Less than 60 mL/min/1.73 square meters End Stage Renal Disease: Less than 15 mL/min/1.73 square meters Performed By: #### G FR, CBC, ADIFF, ANEU, MDW, ESR, BMP, CRP #### [address] [address] .MDWon 02-04-2024 Monocyte Distribution Width 16.72 Normal 0.00-20.00 [facility] ([place]) Comment on above: Result Comment: For ED adult patients suspected of sepsis, MDW<=20.0 does not rule out sepsis or risk of sepsis Performed By: #### G FR, CBC, ADIFF, ANEU, MDW, ESR, BMP, CRP #### [address] [address] .NEUABSon 02-04-2024 Neutrophil, Absolute 7.0 10 3/mcL High 2.9-6.2 [facility] ([place]) Comment on above: Performed By: #### G FR, CBC, ADIFF, ANEU, MDW, ESR, BMP, CRP #### [address] [address] BMPon 02-04-2024 BUN/Creatinine Ratio 12 ratio Normal 7-27 [facility] ([place]) Comment on above: Performed By: #### G FR, CBC, ADIFF, ANEU, MDW, ESR, BMP, CRP #### [address] [address] Calcium [Mass/Vol] 9.1 mg/dL Normal 8.4-10.2 [facility] ([place]) Comment on above: Performed By: #### G FR, CBC, ADIFF, ANEU, MDW, ESR, BMP, CRP #### [address] [address] Chloride [Moles/Vol] 103 mmol/L Normal 98-107 [facility] ([place]) Comment on above: Performed By: #### G FR, CBC, ADIFF, ANEU, MDW, ESR, BMP, CRP #### [address] [address] CO2 [Moles/Vol] 32 mmol/L High 22-29 [facility] ([place]) Comment on above: Performed By: #### G FR, CBC, ADIFF, ANEU, MDW, ESR, BMP, CRP #### [address] [address] Creatinine [Mass/Vol] 1.28 mg/dL High 0.55-1.02 [facility] ([place]) Comment on above: Performed By: #### G FR, CBC, ADIFF, ANEU, MDW, ESR, BMP, CRP #### [address] [address] Electrolyte Balance 9.0 mEq/L Normal 4.0-15.0 [facility] ([place]) Comment on above: Performed By: #### G FR, CBC, ADIFF, ANEU, MDW, ESR, BMP, CRP #### [address] [address] Glucose [Mass/Vol] 114 mg/dL High 70-105 [facility] ([place]) Comment on above: Performed By: #### G FR, CBC, ADIFF, ANEU, MDW, ESR, BMP, CRP #### [address] [address] Potassium [Moles/Vol] 3.8 mmol/L Normal 3.5-5.1 [facility] ([place]) Comment on above: Performed By: #### G FR, CBC, ADIFF, ANEU, MDW, ESR, BMP, CRP #### [address] [address] Sodium [Moles/Vol] 144 mmol/L Normal 136-145 [facility] ([place]) Comment on above: Performed By: #### G FR, CBC, ADIFF, ANEU, MDW, ESR, BMP, CRP #### [address] [address] Urea nitrogen [Mass/Vol] 16 mg/dL Normal 7-18 [facility] ([place]) Comment on above: Performed By: #### G FR, CBC, ADIFF, ANEU, MDW, ESR, BMP, CRP #### [address] [address] CBCon 02-04-2024 Erythrocyte distribution width (RBC) [Ratio] 15.6 % High 11.5-14.5 [facility] ([place]) Comment on above: Performed By: #### G FR, CBC, ADIFF, ANEU, MDW, ESR, BMP, CRP #### [address] [address] Hematocrit (Bld) [Volume fraction] 31.8 % Low 37.0-47.0 [facility] ([place]) Comment on above: Performed By: #### G FR, CBC, ADIFF, ANEU, MDW, ESR, BMP, CRP #### [address] [address] Hgb 11.5 G/dL Low 12.0-16.0 [facility] ([place]) Comment on above: Performed By: #### G FR, CBC, ADIFF, ANEU, MDW, ESR, BMP, CRP #### [address] [address] MCH (RBC) [Entitic mass] 28.9 pg Normal 27.0-31.2 [facility] ([place]) Comment on above: Performed By: #### G FR, CBC, ADIFF, ANEU, MDW, ESR, BMP, CRP #### [address] [address] MCHC 36.1 G/dL Normal 33.0-37.0 [facility] ([place]) Comment on above: Performed By: #### G FR, CBC, ADIFF, ANEU, MDW, ESR, BMP, CRP #### [address] [address] MCV (RBC) [Entitic vol] 80.1 fL Normal 80.0-94.0 [facility] ([place]) Comment on above: Performed By: #### G FR, CBC, ADIFF, ANEU, MDW, ESR, BMP, CRP #### [address] [address] Platelet 323 10 3/mcL Normal 130-400 [facility] ([place]) Comment on above: Performed By: #### G FR, CBC, ADIFF, ANEU, MDW, ESR, BMP, CRP #### [address] [address] Platelet mean volume (Bld) [Entitic vol] 7.2 fL Low 7.4-10.4 [facility] ([place]) Comment on above: Performed By: #### G FR, CBC, ADIFF, ANEU, MDW, ESR, BMP, CRP #### [address] [address] RBC 3.98 10 6/mcL Low 4.20-5.40 [facility] ([place]) Comment on above: Performed By: #### G FR, CBC, ADIFF, ANEU, MDW, ESR, BMP, CRP #### [address] [address] WBC 8.8 10 3/mcL Normal 4.6-10.8 [facility] ([place]) Comment on above: Performed By: #### G FR, CBC, ITZEL, OTILIA GARCIA, ESR, BMP, CRP #### [id number] [place], [place] [address] CRPon 02-04-2024 C-Reactive Protein 0.8 mg/dL High 0.0-0.3 [facility] ([place]) Comment on above: Performed By: #### G FR, CBC, ITZEL, MD JOSEW, ESR, BMP, CRP #### [facility] [address] [place], [place] [address] CT FOREARM W/ CONTRAST RIGHT on 02-04-2024 CT FOREARM W/ CONTRAST RIGHT ORIGINAL EXAMINATION: CT OF THE RIGHT FOREARM WITH CONTRAST02/04/2024 7:07 am TECHNIQUE: CT of the right forearm was performed with the administration of intravenous contrast. Multiplanar reformatted images are provided for review. Automated exposure control, iterative reconstruction, and/or weight based adjustment of the mA/kV was utilized to reduce the radiation dose to as low as reasonably achievable. COMPARISON: None HISTORY: ORDERING SYSTEM PROVIDED HISTORY: Reason for Exam: pt had surgery on rt thumb 6 weeks ago. about 3 weeks ago tried to use rt hand to open something and felt extreme pain in rt hand up to right elbow area. pain has gotten worse. pain FINDINGS: No acute osseous abnormality. No suspicious osseous abnormality. The joint spaces are maintained. Proximal to the elbow, there is a 0.4 mm round density which likely projects off of the suspected basilic vein possibly representing a small pseudoaneurysm. (Series 4 image 762). There is a fluid collection with surrounding hyperdensity measuring approximately 1.6 x 0.8 x 1.5 cm (AP, transverse, craniocaudal) along the palmar surface of the 1st metacarpal phalangeal joint and appears to partially surround the adjacent flexor pollicis longus tendon with additional fluid noted tracking along the more proximal flexor pollicis longus. There is mild adjacent inflammatory change in the subcutaneous tissue of the proximal 1st digit. Additional fluid noted in the carpal tunnel as well as tracking slightly proximally (series 4, image 351). Ligaments and tendons are not well evaluated on this exam. No visible muscle atrophy. Mild skin thickening noted along the posterior elbow joint, posterior to the olecranon, likely within normal limits. IMPRESSION: Fluid collection measuring up to 1.6 cm along the palmar surface of the 1st metacarpal phalangeal joint and appears to partially surround the adjacent flexor pollicis longus tendon and tracks proximally. Findings most likely relate to possible tenosynovitis with additional postsurgical fluid collection including seroma versus abscess not excluded. Additional fluid noted in the carpal tunnel as well as tracking slightly proximal. If clinically appropriate further evaluation with dedicated MRI may be beneficial. Suspect a subcentimeter pseudoaneurysm off the suspected basilic vein, that appears incidental. I have personally reviewed the images of this examination, and agree with the resident's findings and interpretation. Interpreted by: Giovani Woodruff MD Preliminary Report By: Vivek Mathias Electronically signed By Giovani Woodruff MD Dictated Date: 02/04/2024 7:10:27 AM Prelim Date: 02/04/2024 7:41:59 AM Sign Date: 02/04/2024 7:49:04 AM Ordering Provider: ELIANE Sheridan [facility]) ESRon 02-04-2024 Erythrocyte Sed Rate 30 mm/hr Normal 0-30 [facility]) Comment on above: Performed By: #### G FR, CBC, ADIFF, MD JOSEW, ESR, BMP, CRP #### [place] [address] LABORATORYOrdered By: SYSTEM SYSTEM on 02-04-2024 Basophil, Absolute 0.1 103/mcL Normal 0.0 - 0.2 10^3/mcL AO Workflow SS Basophils/100 WBC (Bld) 0.9 % Normal 0.0 - 2.5 % AO Workflow SS Calcium [Mass/Vol] 9.1 mg/dL Normal 8.4 - 10. 2 mg/dL AO ADM SS Chloride [Moles/Vol] 103 mmol/L Normal 98 - 107 mmol/L AO ADM SS CO2 [Moles/Vol] 32 mmol/L High 22 - 29 mmol/L AO ADM SS Creatinine [Mass/Vol] 1.28 mg/dL High 0.55 - 1.02 mg/dL AO ADM SS CRP [Mass/Vol] 0.8 mg/dL High 0.0 - 0.3 mg/dL AO ADM SS Electrolyte Balance 9.0 mEq/L Normal 4.0 - 15 .0 mEq/L AO ADM SS Eosinophil, Absolute 0.2 103/mcL Normal 0.0 - 0.4 10^3/mcL AO Workflow SS Eosinophils/100 WBC (Bld) 2.1 % Normal 0.0 - 7.0 % AO Workflow SS Erythrocyte distribution width (RBC) [Ratio] 15.6 % High 11.5 - 14.5 % AO Workflow SS GFR/1.73 sq M.predicted among blacks MDRD (S/P/Bld) [Vol rate/Area] 53 ml/min/1.73sqm Invalid Interpretation Code AO Chemistry S Comment on above: Interpretive Data: GFR Population mean for , Non- Americans Ages 20-29 = 116 mL/min/1.73 sq.m. Ages 30-39 = 107 mL/min/1.73 sq.m. Ages 40-49 = 99 mL/min/1.73 sq.m. Ages 50-59 = 93 mL/min/1.73 sq.m. Ages 60-69 = 85 mL/min/1.73 sq.m. Ages 70+ = 75 mL/min/1.73 sq.m. Chronic Kidney Disease: Less than 60 mL/min/1.73 square meters End Stage Renal Disease: Less than 15 mL/min/1.73 square meters GFR/1.73 sq M.predicted among non-blacks MDRD (S/P/Bld) [Vol rate/Area] 44 ml/min/1.73sqm Invalid Interpretation Code AO Chemistry S Comment on above: Interpretive Data: GFR Population mean for , Non- Americans Ages 20-29 = 116 mL/min/1.73 sq.m. Ages 30-39 = 107 mL/min/1.73 sq.m. Ages 40-49 = 99 mL/min/1.73 sq.m. Ages 50-59 = 93 mL/min/1.73 sq.m. Ages 60-69 = 85 mL/min/1.73 sq.m. Ages 70+ = 75 mL/min/1.73 sq.m. Chronic Kidney Disease: Less than 60 mL/min/1.73 square meters End Stage Renal Disease: Less than 15 mL/min/1.73 square meters Glucose [Mass/Vol] 114 mg/dL High 70 - 105 mg/dL AO ADM SS Hematocrit (Bld) [Volume fraction] 31.8 % Low 37.0 - 47.0 % AO Workflow SS Hemoglobin (Bld) [Mass/Vol] 11.5 G/dL Low 12.0 - 16.0 G/dL AO Workflow SS Lymphocyte, Absolute 1.2 103/mcL Normal 0.8 - 3.9 10^3/mcL AO Workflow SS Lymphocytes/100 WBC (Bld) 13.3 % Normal 10.0 - 50.0 % AO Workflow SS MCH (RBC) [Entitic mass] 28.9 pg Normal 27.0 - 31.2 pg AO Workflow SS MCHC 36.1 G/dL Normal 33.0 - 37.0 G/dL AO Workflow SS MCV (RBC) [Entitic vol] 80.1 fL Normal 80.0 - 94.0 fL AO Workflow SS Monocyte distribution width Auto (Bld) [Entitic vol] 16.72 1 Normal 0.00 - 20.00 AO Workflow SS Comment on above: Result Comment: For ED adult patients suspected of sepsis, MDW<=20.0 does not rule out sepsis or risk of sepsis Monocyte, Absolute 0.4 103/mcL Normal 0.2 - 1.0 10^3/mcL AO Workflow SS Monocytes/100 WBC (Bld) 4.6 % Normal 1.7 - 13.0 % AO Workflow SS Neutrophil, Absolute 7.0 103/mcL High 2.9 - 6.2 10^3/mcL AO Workflow SS Neutrophils/100 WBC (Bld) 79.1 % Normal 37.0 - 80.0 % AO Workflow SS Platelet mean volume (Bld) [Entitic vol] 7.2 fL Low 7.4 - 10.4 fL AO Workflow SS Platelets (Bld) [#/Vol] 323 103/mcL Normal 130 - 400 10^3/mcL AO Workflow SS Potassium [Moles/Vol] 3.8 mmol/L Normal 3.5 - 5.1 mmol/L AO ADM SS RBC (Bld) [#/Vol] 3.98 106/mcL Low 4.20 - 5.4 0 10^6/mcL AO Workflow SS Sodium [Moles/Vol] 144 mmol/L Normal 136 - 145 mmol/L AO ADM SS Urea nitrogen [Mass/Vol] 16 mg/dL Normal 7 - 18 mg/dL AO ADM SS Urea nitrogen/Creatinine [Mass ratio] 12 ratio Normal 7 - 27 ratio AO ADM SS WBC (Bld) [#/Vol] 8.8 103/mcL Normal 4.6 - 10.8 10^3/mcL AO Workflow SS LABORATORYOrdered By: Toan Michel on 02-04-2024 ESR Photometric method (Bld) [Velocity] 30 mm/hr Normal 0 - 30 mm/hr AO Man Heme SS CNOVon 11-30-2017 CNOV Office Visit ([facility]) ----SIERRA KOHLI ([id number]) 1970 FDate Time Provider Department11/30/17 4:15 PM JEANIE POOLE (RIKKI) [facility] During your visit today, we recorded the following information about you: Temperature Pulse Respiration Blood pressure 98.6 degrees 80/minute 18/minute 120/82 Weight 78.5 kgJeanie Poole CNP, SWATI 12/10/2017 2:40 PM SignedSubjectiveHPIPatient presents with:Sinus Problem: pressure in face ANDamp; bilateral ear pain X 5-6 days andworseningDenies any otc treatment for symptoms.Review of SystemsConstitutional: Negative for chills, fever and malaise/fatigue.HENT: Positive for congestion, ear pain and sinus pain. Negative for sorethroat.Eyes: Negative for discharge and redness.Respiratory: Negative for cough.Gastrointestinal: Negative for abdominal pain, diarrhea, nausea and vomiting.Skin: Negative for rash.Neurological: Negative for headaches.No past medical history on file.No past surgical history on file.ALLERGIES Sulfa (Sulfonamide Antibiotics)MEDICATIONSFLUox etine (PROZAC) 20 mg capsule Take 20 mg by mouth once daily.rosuvastatin (CRESTOR) 5 mg tablet Take 5 mg by mouth once daily.metoprolol tartrate, short acting, (LOPRESSOR) 50 mg tablet Take 50 mg by mouthonce daily.valACYclovir (VALTREX) 500 mg tablet Take 500 mg by mouth once daily.Norethindrone Acet-Ethinyl Est 1.5-30 mg-mcg tab Take 1 tablet by mouth oncedaily.amoxicillin-clavul anic acid (AUGMENTIN) 875-125 mg per tablet Take 1 tablet bymouth twice daily for 10 days.buPROPion XL (WELLBUTRIN XL) 300 mg 24 hr tabletNo family history on file.Social HistorySubstance Use Topics- Smoking status: Former Smoker- Smokeless tobacco: Never Used- Alcohol use Not on fileObjectivePhysical ExamConstitutional: She is well-developed, well-nourished, and in no distress.HENT:Head: Normocephalic.Right Ear: External ear and ear canal normal. Tympanic membrane iserythematous.Left Ear: External ear and ear canal normal. Tympanic membrane is erythematous.Nose: Mucosal edema present. Right sinus exhibits maxillary sinus tendernessand frontal sinus tenderness. Left sinus exhibits maxillary sinus tendernessand frontal sinus tenderness.Mouth/Throat: Posterior oropharyngeal erythema (PND) present.Eyes: Conjunctivae are normal.Neck: Normal range of motion. Neck supple.Cardiovascular: Normal rate, regular rhythm and normal heart sounds.Pulmonary/Chest: Effort normal and breath sounds normal. No respiratorydistress. She has no wheezes.Abdominal: Soft. She exhibits no distension. There is no tenderness.Lymphadenopathy: She has cervical adenopathy.Skin: Skin is warm and dry. No rash noted.Nursing note and vitals reviewed.ASSESSMENT/PLAN:1. Other acute nonsuppurative otitis media of both ears, recurrence notspecified - ICD9: 381.00, ICD10: H65.193 (primary diagnosis)- Will begin treatment with Augmentin 875 mg PO BID for 10 days- The patient should also be given OTC decongestants prn, OTC cough and coldmeds as needed, warm salt water gargles, throat lozenges and/or OTC throatspray as needed and nasal saline gtts and suction prn for the first 5-7 days oftreatment.- Supportive care with plenty of fluids, rest, and analgesia prn.- Follow up in 3-5 days if symptoms persist or worsen.2. Acute sinusitis, recurrence not specified, unspecified location - ICD9:461.9, ICD10: J01.90- Will begin treatment with Augmentin 875 mg PO BID for 10 days- The patient should also be given OTC decongestants prn, OTC cough and coldmeds as needed, warm salt water gargles, throat lozenges and/or OTC throatspray as needed and nasal saline gtts and suction prn for the first 5-7 days oftreatment.- Supportive care with plenty of fluids, rest, and analgesia prn.- Follow up in 3-5 days if symptoms persist or worsen.Prescription instructions reviewed with patient as applicable. Patient advisedif symptoms do not improve or if symptoms worsen sooner, to contact theirprimary care physician. Potential red flag symptoms discussed with thepatient. Reviewed appropriate action plan to take if red flag symptoms occur.Patient agreeable to treatment plan.Jeanie Poole, Ed Poole, SWATI, PLATEMAKER 11/30/2017 4:29 PM SignedEach of us has four paired cavities (spaces) in our head that are connected tothe nose by narrow channels. These cavities, known as sinuses, produce a thinmucus that drains out of the channels of the nose.Normally, sinuses are filled with air. But when sinuses become blocked andfilled with fluid, bacteria can grow and cause an infection (sinusitis).Conditions that cause sinus blockage include the common cold, allergic rhinitis(swelling of the lining of the nose due to allergies), nasal polyps (smallgrowths in the lining of the nose), or deviated septum (a shift in the nasalcavity). Allergies such as hay fever can also cause swelling and poor drainageof the sinuses.If you have symptoms that involve the sinuses, it may be difficult to tell ifyou have sinusitis, a cold, or a nasal allergy. This article will describe thesymptoms, diagnosis, and treatment of sinusitis, and how to distinguishsinusitis from a cold or nasal allergy.What is sinusitis?Sinusitis is an inflammation, or swelling, of the tissue lining the sinuses.There are two types of sinusitis:Acute sinusitis: a sudden onset of cold symptoms such as runny nose, stuffynose, and facial pain that does not go away after 7-10 days. It responds wellto antibiotics and decongestants.Chronic sinusitis: characterized by nasal congestion, drainage, facialpain/pressure, and decreased sense of smell for at least 12 weeks.Who gets sinusitis?About 37 million Americans suffer from at least one episode of sinusitis eachyear. People who have the following conditions have a higher risk of sinusitis:Nasal mucus membrane swelling, as from a common coldBlockage of drainage ductsStructure differences that narrow the drainage ductsConditions that result in an increased risk of infectionIn children, common environmental factors that contribute to sinusitis includeallergies, illness from other children at day care or school, pacifiers, bottledrinking while lying on the back, and smoke in the environment.In adults, the contributing factors are most frequently infections, allergies,and smoking.What are the signs and symptoms of acute sinusitis?The primary symptoms of acute sinusitis include:Facial pain/pressureNasal stuffinessNasal dischargeLoss of smellCough/congestionAdditio nal symptoms may include:FeverBad breathFatigueDental painAcute sinusitis can last four weeks or more. This condition may be diagnosedwhen a person has two or more symptoms and/or the presence of thick, green, oryellow nasal discharge.What are the signs and symptoms of chronic sinusitis?People with chronic sinusitis may have the following symptoms for 12 weeks ormore:Facial congestion/fullnessA nasal obstruction/blockagePus in the nasal cavityFeverNasal discharge/discolored postnasal drainageAdditional symptoms may include:HeadachesBad breathFatigueDental painThick nasal dischargeHow is sinusitis treated?Acute sinusitis. If you have a simple sinusitis infection, your health careprovider may recommend treatment with decongestants like Sudafed and steaminhalations alone, as most sinusitis is viral. Antibiotics are generally neededfor more seriously ill patients.If antibiotics are administered, they are given for 10 to 14 days. Withtreatment, the symptoms usually disappear and antibiotics are no longerrequired. Oral and topical decongestants may be prescribed to alleviate thesymptoms. Use of prescription intranasal steroid sprays might be effective incontrolling symptoms. However, non-prescription drops or sprays should not beused beyond their recommended period--usually four to five days--or they mayactually increase congestion.Chronic sinusitis. Warm moist air may alleviate sinus congestion. Using avaporizer or inhaling steam from a casey of boiling water (removed from heat) mayalso help. Warm compresses are useful to relieve pain in the nose and sinuses.Saline nose drops are also safe for home use. Nonprescription drops or spraysmight be effective in controlling symptoms; however, they should not be usedbeyond their recommended period of time. Nasal steroid sprays that shrinkswollen membranes of the nose are beneficial. Antibiotics may also beprescribed.Avoidance of triggers is important. Allergies should be controlled andirritants, such as smoke, should be avoided.OTITIS MEDIAGENERAL INFORMATION:Otitis media is an infection of the middle ear. The middle ear sits behind theeardrum. This infection may be caused by a virus or bacteria and often followsa cold. Children often have repeat ear infections. Otitis media is notcontagious.INSTRUCTIONS:1 . An antibiotic has been prescribed. It should be taken exactly asprescribed. Do not stop the medicine even if the symptoms go away.2. Hvjx-isx-htvfxer pain medication may be taken or other pain medication asprescribed by the doctor.3. Nothing should be placed in the ear unless instructed by your doctor.4. The patient may return to school/daycare or work when the temperature isnormal (98.6 F or 37 C).5. The patient should not swim while the ear is infected.CONTACT YOUR DOCTOR IF YOU OR YOUR CHILD:1. Does not feel better within 36 hours.2. Develops a temperature over 102E F (39E C).3. Starts vomiting or has diarrhea.4. Develops drainage from the affected ear.5. Has any new problem that may be related to the medicine prescribed.RETURN TO THE ED IF:1. You or your child has a severe headache or pain around the ear.2. You or your child notice swelling around the ear.3. You or your child has a seizure (convulsion), twitching of the facialmuscles, or passes out.4. You or your child is dizzy, has a stiff neck, or cannot walk or talknormally.5. Your child becomes more irritable or listless (not interested in his or hersurroundings, does not get soothed by you holding him or her).Referring Provider: SELF [200]Allergies As of Date: 11/30/2017 Noted Allergy ReactionSULFA (SULFONAMIDE ANTIBIOTICS) 02/12/2016 4 - HivesDate Reviewed: 11/30/2017Reviewed by: Darshana Menard LPN - Fully AssessedReason for Visit: Sinus Problem [99] Cmt: pressure in face AND bilateral ear pain X 5-6 daysPrimary Visit Diagnosis:Other acute nonsuppurative otitis media of both ears, recurrence not specified [H65.193] Other Visit Diagnosis:Acute sinusitis, recurrence not specified, unspecified location [J01.90]Order(s):amoxicillin -clavulanic acid (AUGMENTIN) 875-125 mg per tabletTake 1 tablet by mouth twice daily for 10 days.Disp: 20 tabletRfl: 0Prescriptions as of 11/30/2017 Sig: FLUOXETINE 20 MG CAPSULE Take 20 mg by mouth once lois* ROSUVASTATIN 5 MG TABLET Take 5 mg by mouth once daily. METOPROLOL TARTRATE 50 MG TAB* Take 50 mg by mouth once lois* VALACYCLOVIR 500 MG TABLET Take 500 mg by mouth once west* NORETHINDRONE ACETATE-ETHINYL* Take 1 tablet by mouth once d* AMOXICILLIN 875 MG-POTASSIUM * Take 1 tablet by mouth twice * BUPROPION XL 300 MG 24 HR TABProblem List As Of Date 11/30/2017 Noted Resolved Hypertension, essential [I10] INVALID FOR* Hyperlipidemia, mixed [E78.2] INVALID FOR* Other instructions from your clinician: Each of us has four paired cavities (spaces) in our head that are connected to the nose by narrow channels. These cavities, known as sinuses, produce a thin mucus that drains out of the channels of the nose. Normally, sinuses are filled with air. But when sinuses become blocked and filled with fluid, bacteria can grow and cause an infection (sinusitis). Conditions that cause sinus blockage include the common cold, allergic rhinitis (swelling of the lining of the nose due to allergies), nasal polyps (small growths in the lining of the nose), or deviated septum (a shift in the nasal cavity). Allergies such as hay fever can also cause swelling and poor drainage of the sinuses. If you have symptoms that involve the sinuses, it may be difficult to tell if you have sinusitis, a cold, or a nasal allergy. This article will describe the symptoms, diagnosis, and treatment of sinusitis, and how to distinguish sinusitis from a cold or nasal allergy. What is sinusitis? Sinusitis is an inflammation, or swelling, of the tissue lining the sinuses. There are two types of sinusitis: Acute sinusitis: a sudden onset of cold symptoms such as runny nose, stuffy nose, and facial pain that does not go away after 7-10 days. It responds well to antibiotics and decongestants. Chronic sinusitis: characterized by nasal congestion, drainage, facial pain/pressure, and decreased sense of smell for at least 12 weeks. Who gets sinusitis? About 37 million Americans suffer from at least one episode of sinusitis each year. People who have the following conditions have a higher risk of sinusitis: Nasal mucus membrane swelling, as from a common cold Blockage of drainage ducts Structure differences that narrow the drainage ducts Conditions that result in an increased risk of infection In children, common environmental factors that contribute to sinusitis include allergies, illness from other children at day care or school, pacifiers, bottle drinking while lying on the back, and smoke in the environment. In adults, the contributing factors are most frequently infections, allergies, and smoking. What are the signs and symptoms of acute sinusitis? The primary symptoms of acute sinusitis include: Facial pain/pressure Nasal stuffiness Nasal discharge Loss of smell Cough/congestion Additional symptoms may include: Fever Bad breath Fatigue Dental pain Acute sinusitis can last four weeks or more. This condition may be diagnosed when a person has two or more symptoms and/or the presence of thick, green, or yellow nasal discharge. What are the signs and symptoms of chronic sinusitis? People with chronic sinusitis may have the following symptoms for 12 weeks or more: Facial congestion/fullness A nasal obstruction/blockage Pus in the nasal cavity Fever Nasal discharge/discolored postnasal drainage Additional symptoms may include: Headaches Bad breath Fatigue Dental pain Thick nasal discharge How is sinusitis treated? Acute sinusitis. If you have a simple sinusitis infection, your health care provider may recommend treatment with decongestants like Sudafed and steam inhalations alone, as most sinusitis is viral. Antibiotics are generally needed for more seriously ill patients. If antibiotics are administered, they are given for 10 to 14 days. With treatment, the symptoms usually disappear and antibiotics are no longer required. Oral and topical decongestants may be prescribed to alleviate the symptoms. Use of prescription intranasal steroid sprays might be effective in controlling symptoms. However, non-prescription drops or sprays should not be used beyond their recommended period--usually four to five days--or they may actually increase congestion. Chronic sinusitis. Warm moist air may alleviate sinus congestion. Using a vaporizer or inhaling steam from a casey of boiling water (removed from heat) may also help. Warm compresses are useful to relieve pain in the nose and sinuses. Saline nose drops are also safe for home use. Nonprescription drops or sprays might be effective in controlling symptoms; however, they should not be used beyond their recommended period of time. Nasal steroid sprays that shrink swollen membranes of the nose are beneficial. Antibiotics may also be prescribed. Avoidance of triggers is important. Allergies should be controlled and irritants, such as smoke, should be avoided. OTITIS MEDIA GENERAL INFORMATION: Otitis media is an infection of the middle ear. The middle ear sits behind the eardrum. This infection may be caused by a virus or bacteria and often follows a cold. Children often have repeat ear infections. Otitis media is not contagious. INSTRUCTIONS: 1. An antibiotic has been prescribed. It should be taken exactly as prescribed. Do not stop the medicine even if the symptoms go away. 2. Huzb-dkz-ikkklbs pain medication may be taken or other pain medication as prescribed by the doctor. 3. Nothing should be placed in the ear unless instructed by your doctor. 4. The patient may return to school/daycare or work when the temperature is normal (98.6 F or 37 C). 5. The patient should not swim while the ear is infected. CONTACT YOUR DOCTOR IF YOU OR YOUR CHILD: 1. Does not feel better within 36 hours. 2. Develops a temperature over 102E F (39E C). 3. Starts vomiting or has diarrhea. 4. Develops drainage from the affected ear. 5. Has any new problem that may be related to the medicine prescribed. RETURN TO THE ED IF: 1. You or your child has a severe headache or pain around the ear. 2. You or your child notice swelling around the ear. 3. You or your child has a seizure (convulsion), twitching of the facial muscles, or passes out. 4. You or your child is dizzy, has a stiff neck, or cannot walk or talk normally. 5. Your child becomes more irritable or listless (not interested in his or her surroundings, does not get soothed by you holding him or her).Prescriptions ordered this encounter Disp Refills Start End AMOXICILLIN 875 MG-POTASSIUM CLAVULA* 20 t* 0 11/30/2017 12/10/2017 Route: ORAL Sig: Take 1 tablet by mouth twice daily for 10 days.Disposition: Return if symptoms worsen or fail to improve.Follow-up and Disposition History RecordedEncounter Number: [id number] Status:Closed by JEANIE POOLE on 12/10/17 [facility] PROGRESSon 11-30-2017 PROGRESS HNO ID: [id number] thor: Jeanie Lovelace (Side Framer) SWATI PooleService: (none)Author Type: Nurse PractitionerType: Progress NotesFiled: 12/10/2017 2:40 PMNote Text:SubjectiveHPIPatient presents with:Sinus Problem: pressure in face AND bilateral ear pain X 5-6 days andworseningDenies any otc treatment for symptoms.Review of SystemsConstitutional: Negative for chills, fever and malaise/fatigue.HENT: Positive for congestion, ear pain and sinus pain. Negative for sorethroat.Eyes: Negative for discharge and redness.Respiratory: Negative for cough.Gastrointestinal: Negative for abdominal pain, diarrhea, nausea andvomiting.Skin: Negative for rash.Neurological: Negative for headaches.No past medical history on file.No past surgical history on file.ALLERGIES Sulfa (Sulfonamide Antibiotics)MEDICATIONSFLUox etine (PROZAC) 20 mg capsule Take 20 mg by mouth once daily.rosuvastatin (CRESTOR) 5 mg tablet Take 5 mg by mouth once daily.metoprolol tartrate, short acting, (LOPRESSOR) 50 mg tablet Take 50 mg bymouth once daily.valACYclovir (VALTREX) 500 mg tablet Take 500 mg by mouth once daily.Norethindrone Acet-Ethinyl Est 1.5-30 mg-mcg tab Take 1 tablet by mouthonce daily.amoxicillin-clavulanic acid (AUGMENTIN) 875-125 mg per tablet Take 1tablet by mouth twice daily for 10 days.buPROPion XL (WELLBUTRIN XL) 300 mg 24 hr tabletNo family history on file.Social HistorySubstance Use Topics- Smoking status: Former Smoker- Smokeless tobacco: Never Used- Alcohol use Not on fileObjectivePhysical ExamConstitutional: She is well-developed, well-nourished, and in no distress.HENT:Head: Normocephalic.Right Ear: External ear and ear canal normal. Tympanic membrane iserythematous.Left Ear: External ear and ear canal normal. Tympanic membrane iserythematous.Nose: Mucosal edema present. Right sinus exhibits maxillary sinustenderness and frontal sinus tenderness. Left sinus exhibits maxillarysinus tenderness and frontal sinus tenderness.Mouth/Throat: Posterior oropharyngeal erythema (PND) present.Eyes: Conjunctivae are normal.Neck: Normal range of motion. Neck supple.Cardiovascular: Normal rate, regular rhythm and normal heart sounds.Pulmonary/Chest: Effort normal and breath sounds normal. No respiratorydistress. She has no wheezes.Abdominal: Soft. She exhibits no distension. There is no tenderness.Lymphadenopathy: She has cervical adenopathy.Skin: Skin is warm and dry. No rash noted.Nursing note and vitals reviewed.ASSESSMENT/PLAN:1. Other acute nonsuppurative otitis media of both ears, recurrence notspecified - ICD9: 381.00, ICD10: H65.193 (primary diagnosis)- Will begin treatment with Augmentin 875 mg PO BID for 10 days- The patient should also be given OTC decongestants prn, OTC cough andcold meds as needed, warm salt water gargles, throat lozenges and/or OTCthroat spray as needed and nasal saline gtts and suction prn for the first5-7 days of treatment.- Supportive care with plenty of fluids, rest, and analgesia prn.- Follow up in 3-5 days if symptoms persist or worsen.2. Acute sinusitis, recurrence not specified, unspecified location - ICD9:461.9, ICD10: J01.90- Will begin treatment with Augmentin 875 mg PO BID for 10 days- The patient should also be given OTC decongestants prn, OTC cough andcold meds as needed, warm salt water gargles, throat lozenges and/or OTCthroat spray as needed and nasal saline gtts and suction prn for the first5-7 days of treatment.- Supportive care with plenty of fluids, rest, and analgesia prn.- Follow up in 3-5 days if symptoms persist or worsen.Prescription instructions reviewed with patient as applicable. Patientadvised if symptoms do not improve or if symptoms worsen sooner, tocontact their primary care physician. Potential red flag symptomsdiscussed with the patient. Reviewed appropriate action plan to take ifred flag symptoms occur. Patient agreeable to treatment plan.Jeanie Poole CNP [facility] CNOVon 08-29-2017 CNOV Office Visit ([facility]) ----SIERRA KOHLI ([id number]) 1970 FDate Time Provider Kqdhazgbzn18/27/17 7:45 AM SHANIKA MENESES) [facility] During your visit today, we recorded the following information about you: Temperature Pulse Respiration Blood pressure 97.6 degrees 78/minute 16/minute 122/80 Weight 77.1 kgShanika Meneses PA-C 08/29/2017 9:20 AM Febmmi7208/29/2017Patient presents with:Headache: fever, congestion, bodyaches x 2 daysSUBJECTIVE: This is a 47 year old that is here today for Complaint(s) of nasalcongestion and body aches x 2 days. [place] feverish last evening. [place],intermittent. Mild cough. Denies SOB, wheezing, vomiting, diarrhea, sorethroat.No past medical history on file.ALLERGIES Sulfa (Sulfonamide Antibiotics)MEDICATIONSCurre Outpatient Prescriptions:FLUoxetine (PROZAC) 20 mg capsule Take 20 mg by mouth once daily.rosuvastatin (CRESTOR) 5 mg tablet Take 5 mg by mouth once daily.metoprolol tartrate, short acting, (LOPRESSOR) 50 mg tablet Take 50 mg by mouthonce daily.valACYclovir (VALTREX) 500 mg tablet Take 500 mg by mouth once daily.Norethindrone Acet-Ethinyl Est 1.5-30 mg-mcg tab Take 1 tablet by mouth oncedaily.buPROPion XL (WELLBUTRIN XL) 300 mg 24 hr tabletNo current facility-administered medications for this visit.SOCIAL HISTORYSocial History Marital status: Single Spouse name: Years of education: Number of children:Social History Main Topics Smoking status: Former Smoker Packs/day: 0.00 Years: 0.00REVIEW OF SYSTEMSAll other reviewed and negative other than HPI.OBJECTIVE:BP 122/80 Pulse 78 Temp 36.4 ?C (97.6 ?F) (Tympanic) Resp 16 Wt 77.1 kg(170 lb)APPEARANCE Well appearing, alert, in no acute distress, well-hydrated, wellnourished.EYES PERRLA, conjunctiva and sclera normal.EARS External ears normal, canals clear. TMs normal BILNOSE/SINUS Nares normal. Septum midline. Mucosa normal. No drainage or sinustenderness.THROAT normal, no erythemaNECK Supple, no adenopathy;HEART RRR with normal S1 and S2LUNG clear to auscultation, No wheezing, rhonchi, rales.ASSESSMENT/PLAN:1. Viral illness - ICD9: 079.99, ICD10: B34.9- Discussed viral etiology and rationale for treatment.- Symptomatic treatment with prn analgesia- Supportive care with fluids and restNote for work printed per patient request.Reviewed red flags and when to seek care sooner.The patient indicates understanding of these issues and agrees with the plan.DAVID Palomo-CReferring Provider: SELF [200]Allergies As of Date: 08/29/2017 Noted Allergy ReactionSULFA (SULFONAMIDE ANTIBIOTICS) 02/12/2016 4 - HivesDate Reviewed: 08/29/2017Reviewed by: Delia Ornelas Ma - Fully AssessedReason for Visit: Headache [52] Cmt: fever, congestion, bodyaches x 2 daysPrimary Visit Diagnosis:Viral illness [B34.9]Prescriptions as of 08/29/2017 Sig: FLUOXETINE 20 MG CAPSULE Take 20 mg by mouth once lois* ROSUVASTATIN 5 MG TABLET Take 5 mg by mouth once daily. METOPROLOL TARTRATE 50 MG TAB* Take 50 mg by mouth once lois* VALACYCLOVIR 500 MG TABLET Take 500 mg by mouth once west* NORETHINDRONE ACETATE-ETHINYL* Take 1 tablet by mouth once d* BUPROPION XL 300 MG 24 HR TABMedication notes this encounter BUPROPION XL 300 MG 24 HR TAB >> Deliabiju Ornelas Ma 08/29/2017 7:35 AM >> DELIA ORNELAS MA Jennifer Aug 29, 2017 7:35 AM not takingProblem List As Of Date 08/29/2017 Noted Resolved Hypertension, essential [I10] INVALID FOR* Hyperlipidemia, mixed [E78.2] INVALID FOR*Letter Joe Meneses PA-C [facility] [address] [facility] [address] [facility] [address]Wvwg: [phone]/27/2017Connarda Kohli[address] [facility] [address] Whom it May Concern:This is to certify that Sierra Cira Kohli was seen at our office for medicalcare.If you have any questions please feel free to call.Sincerely:FILIPPO PalomoCEncounter Number: [id number] Status:Closed by SHANIKA MENESES PA-C on 08/29/17 [facility] PROGRESSon 08-29-2017 PROGRESS HNO ID: [id number] thor: Shanika Bhatia) Davidervice: (none)Author Type: Physician AssistantType: Progress NotesFiled: 08/29/2017 9:20 AMNote Text:08/29/2017Patient presents with:Headache: fever, congestion, bodyaches x 2 daysSUBJECTIVE: This is a 47 year old that is here today for Complaint(s) ofnasal congestion and body aches x 2 days. [place] feverish last evening.[place], intermittent. Mild cough. Denies SOB, wheezing, vomiting, diarrhea,sore throat.No past medical history on file.ALLERGIES Sulfa (Sulfonamide Antibiotics)MEDICATIONSCurre nt Outpatient Prescriptions:FLUoxetine (PROZAC) 20 mg capsule Take 20 mg by mouth once daily.rosuvastatin (CRESTOR) 5 mg tablet Take 5 mg by mouth once daily.metoprolol tartrate, short acting, (LOPRESSOR) 50 mg tablet Take 50 mg bymouth once daily.valACYclovir (VALTREX) 500 mg tablet Take 500 mg by mouth once daily.Norethindrone Acet-Ethinyl Est 1.5-30 mg-mcg tab Take 1 tablet by mouthonce daily.buPROPion XL (WELLBUTRIN XL) 300 mg 24 hr tabletNo current facility-administered medications for this visit.SOCIAL HISTORYSocial History Marital status: Single Spouse name: Years of education: Number of children:Social History Main Topics Smoking status: Former Smoker Packs/day: 0.00 Years: 0.00REVIEW OF SYSTEMSAll other reviewed and negative other than HPI.OBJECTIVE:BP 122/80 Pulse 78 Temp 36.4 ?C (97.6 ?F) (Tympanic) Resp 16 Wt77.1 kg (170 lb)APPEARANCE Well appearing, alert, in no acute distress, well-hydrated,well nourished.EYES PERRLA, conjunctiva and sclera normal.EARS External ears normal, canals clear. TMs normal BILNOSE/SINUS Nares normal. Septum midline. Mucosa normal. No drainage orsinus tenderness.THROAT normal, no erythemaNECK Supple, no adenopathy;HEART RRR with normal S1 and S2LUNG clear to auscultation, No wheezing, rhonchi, rales.ASSESSMENT/PLAN:1. Viral illness - ICD9: 079.99, ICD10: B34.9- Discussed viral etiology and rationale for treatment.- Symptomatic treatment with prn analgesia- Supportive care with fluids and restNote for work printed per patient request.Reviewed red flags and when to seek care sooner.The patient indicates understanding of these issues and agrees with theplan.Shanika Meneses PA-C [facility] CNOVon 07-28-2017 CNOV Office Visit ([facility]) ----[facility] KOHLI ([id number]) 1970 [facility] Lvrtltzxwj29/26/17 7:15 AM JOSETTE RAMIREZ (SWATI) [facility] During your visit today, we recorded the following information about you: Temperature Pulse Respiration Blood pressure 98.2 degrees 88/minute 24/minute 114/68 Weight 78 kgKathy PraismesfinGamalSWATI 07/28/2017 7:32 AM SignedHPI Sierra Kohli is a 46 year old female who presents with right ear painfor 23 days. She was seen here on 07/05/17 and prescribed antibiotic which shecompleted. The ear pain never went away. She has not had a fever. She has nottaken any decongestant medication at home.Review of SystemsConstitutional: Negative. Negative for fever.HENT: Positive for ear pain and tinnitus. Negative for congestion and hearingloss.Respiratory: Negative. Negative for cough.Neurological: Positive for dizziness. Negative for headaches.BP 114/68 Pulse 88 Temp 36.8 ?C (98.2 ?F) (Tympanic) Resp 24 Wt 78 kg(172 lb)No past medical history on file.No past surgical history on file.ALLERGIES Sulfa (Sulfonamide Antibiotics)MEDICATIONSbuPRO Pion XL (WELLBUTRIN XL) 300 mg 24 hr tabletrosuvastatin (CRESTOR) 5 mg tablet Take 5 mg by mouth once daily.metoprolol tartrate, short acting, (LOPRESSOR) 50 mg tablet Take 50 mg by mouthonce daily.valACYclovir (VALTREX) 500 mg tablet Take 500 mg by mouth once daily.Norethindrone Acet-Ethinyl Est 1.5-30 mg-mcg tab Take 1 tablet by mouth oncedaily.No family history on file.Social HistorySubstance Use Topics- Smoking status: Former Smoker- Smokeless tobacco: Not on file- Alcohol use Not on filePhysical ExamConstitutional: She is well-developed, well-nourished, and in no distress.HENT:Head: Normocephalic.Right Ear: Tympanic membrane, external ear and ear canal normal.Left Ear: Tympanic membrane, external ear and ear canal normal.Nose: Nose normal. No rhinorrhea.Mouth/Throat: Uvula is midline, oropharynx is clear and moist and mucousmembranes are normal. No posterior oropharyngeal edema or posteriororopharyngeal erythema.Eyes: Conjunctivae are normal. Right eye exhibits no discharge. Left eyeexhibits no discharge.Neck: Neck supple.Cardiovascular: Normal rate, regular rhythm and normal heart sounds.No murmur heard.Pulmonary/Chest: Breath sounds normal. No respiratory distress. She has nowheezes.Lymphadenopathy: She has no cervical adenopathy.Neurological: She is alert.Skin: Skin is warm and dry. No rash noted.Nursing note and vitals reviewed.ASSESSMENT/PLAN:1. Eustachian tube dysfunction, right - ICD9: 381.81, ICD10: H69.81- recommend Coricidin HBP decongestant- if not improving, recommend f/u with ENT- Follow-up with your PCP in 3-5 days if symptoms have not improved or soonerif symptoms worsen- Discussed red flags and need for immediate medical evaluation if any occur.- Discussed supportive care treatment with fluids, rest and analgesia.- Discussed expected course of illnessNetta Dey CNP 07/28/2017 7:28 AM SignedSee Up to Date handout on eustachian tube dysfunction.Recommend Coricidin HBP for decongestant.If not improving, recommend evaluation by ENT (ear, nose, throat specialist).Referring Provider: SELF [200]Allergies As of Date: 07/28/2017 Noted Allergy ReactionSULFA (SULFONAMIDE ANTIBIOTICS) 02/12/2016 4 - HivesDate Reviewed: 07/28/2017Reviewed by: Josette Moreno) Olvin - Fully AssessedReason for Visit: Ear Pain [817] Cmt: Right ear continuesPrimary Visit Diagnosis:Eustachian tube dysfunction, right [H69.81]Prescriptions as of 07/28/2017 Sig: BUPROPION XL 300 MG 24 HR TAB ROSUVASTATIN 5 MG TABLET Take 5 mg by mouth once daily. METOPROLOL TARTRATE 50 MG TAB* Take 50 mg by mouth once lois* VALACYCLOVIR 500 MG TABLET Take 500 mg by mouth once west* NORETHINDRONE ACETATE-ETHINYL* Take 1 tablet by mouth once d*Problem List As Of Date 07/28/2017 Noted Resolved Hypertension, essential [I10] INVALID FOR* Hyperlipidemia, mixed [E78.2] INVALID FOR* Other instructions from your clinician: See Up to Date handout on eustachian tube dysfunction. Recommend Coricidin HBP for decongestant. If not improving, recommend evaluation by ENT (ear, nose, throat specialist). Status:Closed by JOSETTE RAMIREZ on 07/28/17 [facility] 07-28-2017 PROGRESS HNO ID: [id number] thor: Josette ([place] [facility] Alexys: (none)Author Type: Nurse PractitionerType: Progress NotesFiled: 07/28/2017 7:32 AMNote Text:HPI Sierra Kohli is a 46 year old female who presents with right earpain for 23 days. She was seen here on 07/05/17 and prescribed antibioticwhich she completed. The ear pain never went away. She has not had afever. She has not taken any decongestant medication at home.Review of SystemsConstitutional: Negative. Negative for fever.HENT: Positive for ear pain and tinnitus. Negative for congestion andhearing loss.Respiratory: Negative. Negative for cough.Neurological: Positive for dizziness. Negative for headaches.BP 114/68 Pulse 88 Temp 36.8 ?C (98.2 ?F) (Tympanic) Resp 24 Wt 78kg (172 lb)No past medical history on file.No past surgical history on file.ALLERGIES Sulfa (Sulfonamide Antibiotics)MEDICATIONSbuPRO Pion XL (WELLBUTRIN XL) 300 mg 24 hr tabletrosuvastatin (CRESTOR) 5 mg tablet Take 5 mg by mouth once daily.metoprolol tartrate, short acting, (LOPRESSOR) 50 mg tablet Take 50 mg bymouth once daily.valACYclovir (VALTREX) 500 mg tablet Take 500 mg by mouth once daily.Norethindrone Acet-Ethinyl Est 1.5-30 mg-mcg tab Take 1 tablet by mouthonce daily.No family history on file.Social HistorySubstance Use Topics- Smoking status: Former Smoker- Smokeless tobacco: Not on file- Alcohol use Not on filePhysical ExamConstitutional: She is well-developed, well-nourished, and in no distress.HENT:Head: Normocephalic.Right Ear: Tympanic membrane, external ear and ear canal normal.Left Ear: Tympanic membrane, external ear and ear canal normal.Nose: Nose normal. No rhinorrhea.Mouth/Throat: Uvula is midline, oropharynx is clear and moist and mucousmembranes are normal. No posterior oropharyngeal edema or posteriororopharyngeal erythema.Eyes: Conjunctivae are normal. Right eye exhibits no discharge. Left eyeexhibits no discharge.Neck: Neck supple.Cardiovascular: Normal rate, regular rhythm and normal heart sounds.No murmur heard.Pulmonary/Chest: Breath sounds normal. No respiratory distress. She has nowheezes.Lymphadenopathy: She has no cervical adenopathy.Neurological: She is alert.Skin: Skin is warm and dry. No rash noted.Nursing note and vitals reviewed.ASSESSMENT/PLAN:1. Eustachian tube dysfunction, right - ICD9: 381.81, ICD10: H69.81- recommend Coricidin HBP decongestant- if not improving, recommend f/u with ENT- Follow-up with your PCP in 3-5 days if symptoms have not improved orsooner if symptoms worsen- Discussed red flags and need for immediate medical evaluation if anyoccur.- Discussed supportive care treatment with fluids, rest and analgesia.- Discussed expected course of illnessSWATI Dey [facility] CNOVon 07-05-2017 CNOV Office Visit ([facility]) ----SIERRA KOHLI ([id number]) 1970 FDa Time Provider Ltmfhnhzmn31/3/17 7:30 AM CELIA VALDES ([facility]) WSTR During your visit today, we recorded the following information about you: Temperature Pulse Respiration Blood pressure 98.1 degrees 78/minute 16/minute 112/76 Weight 77.6 kgCelia Valdes CNP 07/05/2017 7:43 AM SignedPatient is a 46 year old female presenting with sinus complaint.Sinus ProblemAssociated symptoms include chills, congestion (nasal yellow, blood tinged), afever, headaches (sinus and dental pain) and myalgias. Pertinent negativesinclude no chest pain, coughing, rash or sore throat.[facility] Sierra Kohli is a 46 year old female who presents today for CC ofsinus pressure and dental pressure. This started 3 weeks ago. She is alsohaving ear pressure, and yellow nasal drainage Symptoms are worsened bybending over. She has tried mucinex, and claritin, sudafed, tylenol, ibuprofenwith short term relief. Risk factors none PMH sinus infections in pastBP 112/76 Pulse 78 Temp 36.7 ?C (98.1 ?F) (Tympanic) Resp 16 Wt 77.6 kg(171 lb)ALLERGIESAllergen Reactions- Sulfa (Sulfonamide * HivesThere is no problem list on file for this patient.No family history on file.Social History Marital status: Single Spouse name: Years of education: Number of children:Social History Main Topics Smoking status: Former Smoker Packs/day: 0.00 Years: 0.00Review of SystemsConstitutional: Positive for chills and fever. Negative for malaise/fatigue.HENT: Positive for congestion (nasal yellow, blood tinged) and ear pain(pressure). Negative for sore throat. PNDRespiratory: Negative for cough, sputum production, shortness of breath andwheezing.Cardiovascular: Negative for chest pain.Musculoskeletal: Positive for myalgias.Skin: Negative for rash.Neurological: Positive for headaches (sinus and dental pain).Physical ExamConstitutional: She is well-developed, well-nourished, and in no distress.HENT:Head: Normocephalic and atraumatic.Right Ear: External ear and ear canal normal. Tympanic membrane is notinjected, not erythematous, not retracted and not bulging. A middle eareffusion is present.Left Ear: External ear and ear canal normal. Tympanic membrane is not injected,not erythematous, not retracted and not bulging. A middle ear effusion (serous,suppurative) is present.Nose: Mucosal edema and rhinorrhea present. Right sinus exhibits maxillarysinus tenderness (right ANDgt; Left). Right sinus exhibits no frontal sinustenderness. Left sinus exhibits maxillary sinus tenderness. Left sinus exhibitsno frontal sinus tenderness.Mouth/Throat: Uvula is midline and mucous membranes are normal. Posteriororopharyngeal erythema present. No oropharyngeal exudate, posteriororopharyngeal edema or tonsillar abscesses.Eyes: Conjunctivae and EOM are normal. Pupils are equal, round, and reactive tolight.Neck: Normal range of motion.Cardiovascular: Normal rate, regular rhythm and normal heart sounds.Pulmonary/Chest: Effort normal and breath sounds normal. No respiratorydistress. She has no decreased breath sounds. She has no wheezes. She has norhonchi. She has no rales.Lymphadenopathy: Head (right side): No submental, no submandibular, no tonsillar, nopreauricular and no posterior auricular adenopathy present. Head (left side): No submental, no submandibular, no tonsillar, nopreauricular and no posterior auricular adenopathy present. She has no cervical adenopathy. Right cervical: No posterior cervical adenopathy present. Left cervical: No posterior cervical adenopathy present. Right: No supraclavicular adenopathy present. Left: No supraclavicular adenopathy present.Skin: Skin is warm and dry.Psychiatric: Affect normal.Nursing note and vitals reviewed.ASSESSMENT/PLAN:1. Bacterial sinusitis - ICD9: 473.9, 041.9, ICD10: J32.9, B96.89- Will begin treatment with Augmentin 875 mg PO BID for 10 days- The patient should also be given nasal saline gtts and suction prn for thefirst 5-7 days of treatment.- Supportive care with plenty of fluids, rest, and analgesia prn.- Follow up in one week if symptoms persist or worsen.- -Increase fluid intake. Try to drink at least 8 glasses of non caffeinatedfluids daily.--Rest as much as possible.-Do the nasal saline irrigation at least 2 x day to relieve nasal mucous andcongestion: brands include Ted Med, Simply saline, [place] nasal spray, or eventhe generic store brand one is ok.Take the entire course of antibiotics as prescribed. DO NOT stop taking itearly, even if you are feeling better.-Practice good hygiene, wash hands frequently.-Monitor for signs of worsening infection: increased temperature, pain in face,ear pain or headaches or increase in nasal congestion/mucous that is notimproving.-Educated patient on side effects of medication.- Flonase 1 spray each nostril two times a day.- Zyrtec 10 mg By mouth daily at bedtime- AMOXICILLIN 875 MG-POTASSIUM CLAVULANATE 125 MG TABLETYou can take an OTC probiotic such as Culturelle or Align to help with stomachupset/loose stool that you may get as a side effect of the antibiotic.Diagnosis and treatment plan were discussed and questions were answered to thepatient's satisfaction. Pt acknowledged understanding of concepts and follow upplan.Specific signs and symptoms that would indicate the need for higher level ofcare were discussed in detail warranting prompt ER evaluation.Jennifer Lopez CNP 07/05/2017 7:42 AM SignedASSESSMENT/PLAN:1. Bacterial sinusitis - ICD9: 473.9, 041.9, ICD10: J32.9, B96.89- Will begin treatment with Augmentin 875 mg PO BID for 10 days- The patient should also be given nasal saline gtts and suction prn for thefirst 5-7 days of treatment.- Supportive care with plenty of fluids, rest, and analgesia prn.- Follow up in one week if symptoms persist or worsen.- -Increase fluid intake. Try to drink at least 8 glasses of non caffeinatedfluids daily.--Rest as much as possible.-Do the nasal saline irrigation at least 2 x day to relieve nasal mucous andcongestion: brands include Ted Med, Simply saline, [place] nasal spray, or [employer] generic store brand one is ok.Take the entire course of antibiotics as prescribed. DO NOT stop taking itearly, even if you are feeling better.-Practice good hygiene, wash hands frequently.-Monitor for signs of worsening infection: increased temperature, pain in face,ear pain or headaches or increase in nasal congestion/mucous that is notimproving.-Educated patient on side effects of medication.- Flonase 1 spray each nostril two times a day.- Zyrtec 10 mg By mouth daily at bedtime- AMOXICILLIN 875 MG-POTASSIUM CLAVULANATE 125 MG TABLETYou can take an OTC probiotic such as Culturelle or Align to help with stomachupset/loose stool that you may get as a side effect of the antibiotic.Referring Provider: SELF [[id number]]Allergies As of Date: 07/05/2017 Noted Allergy ReactionSULFA (SULFONAMIDE ANTIBIOTICS) 02/12/2016 4 - HivesDate Reviewed: 07/05/2017Reviewed by: Celia ([facility]) Ede - Fully AssessedReason for Visit: Sinus Problem [99] Cmt: right ear pressure x 3 weeksPrimary Visit Diagnosis:Bacterial sinusitis [J32.9, B96.89]Order(s):amoxicillin- clavulanic acid (AUGMENTIN) 875-125 mg per tabletTake 1 tablet by mouth twice daily for 10 days.Disp: 20 tabletRfl: 0Prescriptions as of 07/05/2017 Sig: BUPROPION XL 300 MG 24 HR TAB METOPROLOL TARTRATE 50 MG TAB* Take 50 mg by mouth once lois* VALACYCLOVIR 500 MG TABLET Take 500 mg by mouth once west* NORETHINDRONE ACETATE-ETHINYL* Take 1 tablet by mouth once d* AMOXICILLIN 875 MG-POTASSIUM * Take 1 tablet by mouth twice * ROSUVASTATIN 5 MG TABLET Take 5 mg by mouth once daily.Problem List As Of Date 07/05/2017 Noted Resolved Hypertension, essential [I10] INVALID FOR* Hyperlipidemia, mixed [E78.2] INVALID FOR* Other instructions from your clinician: ASSESSMENT/PLAN: 1. Bacterial sinusitis - ICD9: 473.9, 041.9, ICD10: J32.9, B96.89 - Will begin treatment with Augmentin 875 mg PO BID for 10 days - The patient should also be given nasal saline gtts and suction prn for the first 5-7 days of treatment. - Supportive care with plenty of fluids, rest, and analgesia prn. - Follow up in one week if symptoms persist or worsen. - -Increase fluid intake. Try to drink at least 8 glasses of non caffeinated fluids daily. --Rest as much as possible. -Do the nasal saline irrigation at least 2 x day to relieve nasal mucous and congestion: brands include Ted Med, Simply saline, [place] nasal spray, or even the generic store brand one is ok. Take the entire course of antibiotics as prescribed. DO NOT stop taking it early, even if you are feeling better. -Practice good hygiene, wash hands frequently. -Monitor for signs of worsening infection: increased temperature, pain in face, ear pain or headaches or increase in nasal congestion/mucous that is not improving. -Educated patient on side effects of medication. - Flonase 1 spray each nostril two times a day. - Zyrtec 10 mg By mouth daily at bedtime - AMOXICILLIN 875 MG-POTASSIUM CLAVULANATE 125 MG TABLET You can take an OTC probiotic such as Culturelle or Align to help with stomach upset/loose stool that you may get as a side effect of the antibiotic.Prescriptions ordered this encounter Disp Refills Start End AMOXICILLIN 875 MG-POTASSIUM CLAVULA* 20 t* 0 07/05/2017 07/15/2017 Route: ORAL Sig: Take 1 tablet by mouth twice daily for 10 days.Medications Discontinued During This Encounter Hydrochlorothiazide 12.5 mg capsule 07/05/2017 Class: Historical Med Route: ORAL Sig: Take 12.5 mg by mouth once daily. Disc: Discontinued by another Health Care ProviderEncounter Number: [id number] Status:Closed by CELIA VALDES CNP on 07/05/17 [facility] PROGRESSon 07-05-2017 PROGRESS HNO ID: [id number] thor: Celia (Swati) FulkService: (none)Author Type: Nurse PractitionerType: Progress NotesFiled: 07/05/2017 7:43 AMNote Text:Patient is a 46 year old female presenting with sinus complaint.Sinus ProblemAssociated symptoms include chills, congestion (nasal yellow, bloodtinged), a fever, headaches (sinus and dental pain) and myalgias.Pertinent negatives include no chest pain, coughing, rash or sore throat.HPI Sierra Kohli is a 46 year old female who presents today for CC ofsinus pressure and dental pressure. This started 3 weeks ago. She isalso having ear pressure, and yellow nasal drainage Symptoms are worsenedby bending over. She has tried mucinex, and claritin, sudafed, tylenol,ibuprofen with short term relief. Risk factors none PMH sinus infectionsin pastBP 112/76 Pulse 78 Temp 36.7 ?C (98.1 ?F) (Tympanic) Resp 16 Wt77.6 kg (171 lb)ALLERGIESAllergen Reactions- Sulfa (Sulfonamide * HivesThere is no problem list on file for this patient.No family history on file.Social History Marital status: Single Spouse name: Years of education: Number of children:Social History Main Topics Smoking status: Former Smoker Packs/day: 0.00 Years: 0.00Review of SystemsConstitutional: Positive for chills and fever. Negative formalaise/fatigue.HENT: Positive for congestion (nasal yellow, blood tinged) and ear pain(pressure). Negative for sore throat. PNDRespiratory: Negative for cough, sputum production, shortness of breathand wheezing.Cardiovascular: Negative for chest pain.Musculoskeletal: Positive for myalgias.Skin: Negative for rash.Neurological: Positive for headaches (sinus and dental pain).Physical ExamConstitutional: She is well-developed, well-nourished, and in no distress.HENT:Head: Normocephalic and atraumatic.Right Ear: External ear and ear canal normal. Tympanic membrane is notinjected, not erythematous, not retracted and not bulging. A middle eareffusion is present.Left Ear: External ear and ear canal normal. Tympanic membrane is notinjected, not erythematous, not retracted and not bulging. A middle eareffusion (serous, suppurative) is present.Nose: Mucosal edema and rhinorrhea present. Right sinus exhibits maxillarysinus tenderness (right > Left). Right sinus exhibits no frontal sinustenderness. Left sinus exhibits maxillary sinus tenderness. Left sinusexhibits no frontal sinus tenderness.Mouth/Throat: Uvula is midline and mucous membranes are normal. Posteriororopharyngeal erythema present. No oropharyngeal exudate, posteriororopharyngeal edema or tonsillar abscesses.Eyes: Conjunctivae and EOM are normal. Pupils are equal, round, andreactive to light.Neck: Normal range of motion.Cardiovascular: Normal rate, regular rhythm and normal heart sounds.Pulmonary/Chest: Effort normal and breath sounds normal. No respiratorydistress. She has no decreased breath sounds. She has no wheezes. She hasno rhonchi. She has no rales.Lymphadenopathy: Head (right side): No submental, no submandibular, no tonsillar, nopreauricular and no posterior auricular adenopathy present. Head (left side): No submental, no submandibular, no tonsillar, nopreauricular and no posterior auricular adenopathy present. She has no cervical adenopathy. Right cervical: No posterior cervical adenopathy present. Left cervical: No posterior cervical adenopathy present. Right: No supraclavicular adenopathy present. Left: No supraclavicular adenopathy present.Skin: Skin is warm and dry.Psychiatric: Affect normal.Nursing note and vitals reviewed.ASSESSMENT/PLAN:1. Bacterial sinusitis - ICD9: 473.9, 041.9, ICD10: J32.9, B96.89- Will begin treatment with Augmentin 875 mg PO BID for 10 days- The patient should also be given nasal saline gtts and suction prn forthe first 5-7 days of treatment.- Supportive care with plenty of fluids, rest, and analgesia prn.- Follow up in one week if symptoms persist or worsen.- -Increase fluid intake. Try to drink at least 8 glasses of noncaffeinated fluids daily.--Rest as much as possible.-Do the nasal saline irrigation at least 2 x day to relieve nasal mucousand congestion: brands include Ted Med, Simply saline, [place] nasal spray,or even the generic store brand one is ok.Take the entire course of antibiotics as prescribed. DO NOT stop taking itearly, even if you are feeling better.-Practice good hygiene, wash hands frequently.-Monitor for signs of worsening infection: increased temperature, pain inface, ear pain or headaches or increase in nasal congestion/mucous that isnot improving.-Educated patient on side effects of medication.- Flonase 1 spray each nostril two times a day.- Zyrtec 10 mg By mouth daily at bedtime- AMOXICILLIN 875 MG-POTASSIUM CLAVULANATE 125 MG TABLETYou can take an OTC probiotic such as Culturelle or Align to help withstomach upset/loose stool that you may get as a side effect of theantibiotic.Diagnosis and treatment plan were discussed and questions were answered tothe patient's satisfaction. Pt acknowledged understanding of concepts andfollow up plan.Specific signs and symptoms that would indicate the need for higher levelof care were discussed in detail warranting prompt ER evaluation.Celia Valdes CNP Normal [facility] Vital Signs Date Time Vital Sign Value Performing Clinician Sofia dupree 02-04-2024 05:58-0400 Blood Pressure Location TESSA PHAM DO [facility] 02-04-2024 05:58-0400 Blood Pressure Method TESSA Melendrez [facility] 02-04-2024 05:58-0400 Body height 157.5 cm TESSA REICHFIELD DO [facility] 02-04-2024 05:58-0400 Body temperature 96.98 [degF] TESSA REICHFIELD DO [facility] 02-04-2024 05:58-0400 Body weight 77.3 kg TESSA REICHFIELD DO [facility] 02-04-2024 05:58-0400 Diastolic Blood Pressure Non-Invasive 78 mm[Hg] TESSA REICHFIELD DO [facility] 02-04-2024 05:58-0400 Heart rate 92 /min TESSA REICHFIELD DO [facility] 02-04-2024 05:58-0400 Respiratory rate 16 /min TESSA PHAM DO [facility] 02-04-2024 05:58-0400 Systolic Blood Pressure Non-Invasive 109 mm[Hg] TESSA REMANUELAFIELD DO [facility] Encounters Encounter Date Encounter Type Care Provider Facility Start: 02-04-2024 End: 02-04-2024 Emergency department patient visit DR ELIANE MOLINA DO Facility:B Start: 02-04-2024 End: 02-04-2024 Emergency department patient visit TESSA PHAM DO [facility] Start: 11-30-2017 End: 12-12-2017 [facility] Start: 08-29-2017 End: 08-29-2017 [facility] Start: 07-28-2017 End: 07-28-2017 [facility] Start: 07-05-2017 End: 07-05-2017 [facility] Date Payer Category Payer Unknown [id number] 1970 Unknown [id number] Social History Date Type Detail Facility Tobacco smoking status No Smoking Status Entered [facility] Sex Assigned At Female [facility] Functional Status Date Assessment Result Facility 02-04-2024 Functional Status Independent [facility] 02-04-2024 Functional Status Standard Safet y ID band on, Allergy Band on, Call device within reach, Bed in low position, Wheels locked, Upper/Half-Length side-rails up, personal items within reach, Bedside Cart Locked, Visitor at bedside [facility] Mental Status Date Assessment Result Facility 02-04-2024 Mental Status Orientation Oriented x [facility] 02-04-2024 Mental Status [facility] Discharge instructions 02-04-2024 Note Date & Type Note Facility 02-04-2024 Hospital Discharg e instructions Patient Education 02/04/2024 08:08:10 [facility] Sue GUERRIER (CUSTOM) Result type:CT Forearm w/ Contrast Right Result date:February 04, 2024 7:02 EDT Result status:Auth (Verified) Result title:CT FOREARM W/ CONTRAST RIGHT Performed by:GIOVANI WOODRUFF MD on February 04, 2024 7:02 EDT Cosigned by:VIVEK MATHIAS MD Verified by:GIOVANI WOODRUFF MD on February 04, 2024 7:02 EDT Encounter info:[id number], [facility], Emergency, 02/04/2024 - Contributor system:[employer] [id number] ORIGINAL EXAMINATION: CT OF THE RIGHT FOREARM WITH CONTRAST02/04/2024 7:07 am TECHNIQUE: CT of the right forearm was performed with the administration of intravenous contrast. Multiplanar reformatted images are provided for review. Automated exposure control, iterative reconstruction, and/or weight based adjustment of the mA/kV was utilized to reduce the radiation dose to as low as reasonably achievable. COMPARISON: None HISTORY: ORDERING SYSTEM PROVIDED HISTORY: Reason for Exam: pt had surgery on rt thumb 6 weeks ago. about 3 weeks ago tried to use rt hand to open something and felt extreme pain in rt hand up to right elbow area. pain has gotten worse. pain FINDINGS: No acute osseous abnormality. No suspicious osseous abnormality. The joint spaces are maintained. Proximal to the elbow, there is a 0.4 mm round density which likely projects off of the suspected basilic vein possibly representing a small pseudoaneurysm. (Series 4 image 762). There is a fluid collection with surrounding hyperdensity measuring approximately 1.6 x 0.8 x 1.5 cm (AP, transverse, craniocaudal) along the palmar surface of the 1st metacarpal phalangeal joint and appears to partially surround the adjacent flexor pollicis longus tendon with additional fluid noted tracking along the more proximal flexor pollicis longus. There is mild adjacent inflammatory change in the subcutaneous tissue of the proximal 1st digit. Additional fluid noted in the carpal tunnel as well as tracking slightly proximally (series 4, image 351). Ligaments and tendons are not well evaluated on this exam. No visible muscle atrophy. Mild skin thickening noted along the posterior elbow joint, posterior to the olecranon, likely within normal limits. IMPRESSION: Fluid collection measuring up to 1.6 cm along the palmar surface of the 1st metacarpal phalangeal joint and appears to partially surround the adjacent flexor pollicis longus tendon and tracks proximally. Findings most likely relate to possible tenosynovitis with additional postsurgical fluid collection including seroma versus abscess not excluded. Additional fluid noted in the carpal tunnel as well as tracking slightly proximal. If clinically appropriate further evaluation with dedicated MRI may be beneficial. Suspect a subcentimeter pseudoaneurysm off the suspected basilic vein, that appears incidental. I have personally reviewed the images of this examination, and agree with the resident's findings and interpretation. Interpreted by: Giovani Woodruff MD Preliminary Report By: Vivek Mathias Electronically signed By Giovani Woodruff MD Dictated Date: 02/04/2024 7:10:27 AM Prelim Date: 02/04/2024 7:41:59 AM Sign Date: 02/04/2024 7:49:04 AM Ordering Provider: ELIANE MOLINA IMAGE This document has an image Document Released: 09/19/2006 Document Revised: 09/05/2013 Document Reviewed: 09/20/2014 [facility] Patient Information 2014 [employer]. This information is not intended to replace advice given to you by your health care provider. Make sure you discuss any questions you have with your health care provider. 02/04/2024 08:07:39 Tendonitis Tendonitis A tendon is the thick fibrous cord that joins muscle to bone and allows joints to move. When a tendon becomes inflamed, it is called tendonitis. This can occur from overuse, injury, or infection. This usually involves the shoulders, forearm, wrist, hands and feet. Symptoms include pain, swelling and tenderness to the touch. Moving the joint increases the pain. It takes 4 to 6 weeks or more for tendonitis to heal. It is treated by preventing motion of the tendon, occasionally with a splint or brace, and the use of anti-inflammatory medicine. Home care Some people find relief with ice packs. These can be crushed or cubed ice in a plastic bag or a bag of frozen vegetables wrapped in a thin towel. Other people get better relief with heat. This can include a hot shower, hot bath, or a moist towel warmed in a microwave. Try each and use the method that feels best, for 15 to 20 minutes several times a day. Rest the inflamed joint and protect it from movement. You may use ezsp-lid-ffkehrb ibuprofen or naproxen to treat pain and inflammation, unless another medicine was prescribed. If you can't take these medicines, acetaminophen may help with the pain, but does not treat inflammation. If you have chronic liver or kidney disease or ever had a stomach ulcer or gastrointestinal bleeding, talk with your doctor before using these medicines. As your symptoms improve, begin gradual motion at the involved joint. Follow-up care Follow up with your healthcare provider if you are not improving after 5 to 7 days of treatment. When to seek medical advice Call your healthcare provider right away if any of these occur: Redness over the painful area Increasing pain or swelling at the joint Fever lasting 24 to 48 hours or chills, or as advised by your healthcare provider [phone] [employer]. [address] [place] [address]. All rights reserved. This information is not intended as a substitute for professional medical care. Always follow your healthcare professional's instructions. Follow Up Care 02/04/2024 05:49:38 With:JOSEPH CALVILLO MD, [facility], Vascular Service, Vascular Surgeons Address: [address] [facility] [place] [phone] When:3-7 days With:KAYLA GREENBERG MD Address: [facility] [address] [place] [address] [phone] When:2-4 days With:MATI AUGUSTINE DO Address: [facility] [address] [place] [phone] When:2-4 days [facility] Clinical Note 02-04-2024 Note Date & Type Note Facility 02-04-2024 Note Discharge Instructions Thank you for allowing [facility] to assist you with your healthcare needs. The following is important discharge information regarding your hospital visit. Diagnosis from Today's Visit Hand pain Hand pain-swelling, right hand Tenosynovitis What to Do Next Instructions from Your Care Team CT here did show fluid collection around the flexor pollicis longus possible tenosynovitis. I discussed the case with Dr. Greenberg, hand surgeon does not believe this to be infectious he did recently see you for this however covering with antibiotics not a bad idea here and he recommends Augmentin. Follow-up with Dr. Greenberg on Tuesday. Wear wrist splint as needed for comfort. Take Percocet as needed for pain. CT also did show subcentimeter possible pseudoaneurysm along the basilic vein. Recommend follow-up with him as well as vascular, Dr. Calvillo if continued symptoms however this is believed to be an incidental finding. Return to the emergency department if you have worsening symptoms, increased redness, fevers, numbness, or any other care concern. Discharge Home Equipment - Ordered -- Splint, wrist & thumb Right, 99 month(s), 02/04/24 8:08:00 EDT Post Acute Orders No qualifying data available. You Need to Schedule the Following Appointments Follow Up with JOSEPH CALVILLO MD, [facility], Vascular Service, Vascular Surgeons When Within 3-7 days Where: [address] [facility] [place] [address] [phone] Follow Up with KAYLA GREENBERG MD When Within 2-4 days Where: [facility] [address] [place] [address] [phone] Follow Up with MATI AUGUSTINE DO When Within 2-4 days Where: [facility] [address] [place] [address] [phone] Allergies sulfa drug Medications Please ask your primary doctor or pharmacist before taking any other medication not listed, including over the counter drugs, herbal medications, vitamins and or supplements as they may interact with your home medications. What How Much When Why Instructions Last Dose New acetaminophen-oxyCODONE (Percocet 5 mg-325 mg oral tablet) 1 tab(s) by mouth Every 6 hours as needed for for pain Hand pain Duration: 5 Days Printed Prescription New amoxicillin-clavulanate (amoxicillin-clavulanate 875 mg-125 mg oral tablet) 1 tab(s) by mouth Every 12 hours Duration: 7 Days Printed Prescription Please take this list to your next doctor s visit. Bring all medications you take, including over the counter medications, herbals and other supplements with you to your doctor s visit. Patients and families are reminded to discard old lists and to update any records with all medication providers or retail pharmacies. Education Materials Result type: CT Forearm w/ Contrast Right Result date: February 04, 2024 7:02 EDT Result status: Auth (Verified) Result title: CT FOREARM W/ CONTRAST RIGHT Performed by: GIOVANI WOODRUFF MD on February 04, 2024 7:02 EDT Cosigned by: VIVEK MATHIAS MD Verified by: GIOVANI WOODRUFF MD on February 04, 2024 7:02 EDT Encounter info: [id number], [facility], Emergency, 02/04/2024 - Contributor system: [employer] [id number] ORIGINAL EXAMINATION: CT OF THE RIGHT FOREARM WITH CONTRAST02/04/2024 7:07 am TECHNIQUE: CT of the right forearm was performed with the administration of intravenous contrast. Multiplanar reformatted images are provided for review. Automated exposure control, iterative reconstruction, and/or weight based adjustment of the mA/kV was utilized to reduce the radiation dose to as low as reasonably achievable. COMPARISON: None HISTORY: ORDERING SYSTEM PROVIDED HISTORY: Reason for Exam: pt had surgery on rt thumb 6 weeks ago. about 3 weeks ago tried to use rt hand to open something and felt extreme pain in rt hand up to right elbow area. pain has gotten worse. pain FINDINGS: No acute osseous abnormality. No suspicious osseous abnormality. The joint spaces are maintained. Proximal to the elbow, there is a 0.4 mm round density which likely projects off of the suspected basilic vein possibly representing a small pseudoaneurysm. (Series 4 image 762). There is a fluid collection with surrounding hyperdensity measuring approximately 1.6 x 0.8 x 1.5 cm (AP, transverse, craniocaudal) along the palmar surface of the 1st metacarpal phalangeal joint and appears to partially surround the adjacent flexor pollicis longus tendon with additional fluid noted tracking along the more proximal flexor pollicis longus. There is mild adjacent inflammatory change in the subcutaneous tissue of the proximal 1st digit. Additional fluid noted in the carpal tunnel as well as tracking slightly proximally (series 4, image 351). Ligaments and tendons are not well evaluated on this exam. No visible muscle atrophy. Mild skin thickening noted along the posterior elbow joint, posterior to the olecranon, likely within normal limits. IMPRESSION: Fluid collection measuring up to 1.6 cm along the palmar surface of the 1st metacarpal phalangeal joint and appears to partially surround the adjacent flexor pollicis longus tendon and tracks proximally. Findings most likely relate to possible tenosynovitis with additional postsurgical fluid collection including seroma versus abscess not excluded. Additional fluid noted in the carpal tunnel as well as tracking slightly proximal. If clinically appropriate further evaluation with dedicated MRI may be beneficial. Suspect a subcentimeter pseudoaneurysm off the suspected basilic vein, that appears incidental. I have personally reviewed the images of this examination, and agree with the resident's findings and interpretation. Interpreted by: Giovani Woodruff MD Preliminary Report By: Vivek Mathias Electronically signed By Giovani Woodruff MD Dictated Date: 02/04/2024 7:10:27 AM Prelim Date: 02/04/2024 7:41:59 AM Sign Date: 02/04/2024 7:49:04 AM Ordering Provider: ELIANE MOLINA IMAGE This document has an image Document Released: 09/19/2006 Document Revised: 09/05/2013 Document Reviewed: 09/20/2014 ExitCare Patient Information 2014 [employer]. This information is not intended to replace advice given to you by your health care provider. Make sure you discuss any questions you have with your health care provider. Tendonitis A tendon is the thick fibrous cord that joins muscle to bone and allows joints to move. When a tendon becomes inflamed, it is called tendonitis. This can occur from overuse, injury, or infection. This usually involves the shoulders, forearm, wrist, hands and feet. Symptoms include pain, swelling and tenderness to the touch. Moving the joint increases the pain. It takes 4 to 6 weeks or more for tendonitis to heal. It is treated by preventing motion of the tendon, occasionally with a splint or brace, and the use of anti-inflammatory medicine. Home care Some people find relief with ice packs. These can be crushed or cubed ice in a plastic bag or a bag of frozen vegetables wrapped in a thin towel. Other people get better relief with heat. This can include a hot shower, hot bath, or a moist towel warmed in a microwave. Try each and use the method that feels best, for 15 to 20 minutes several times a day. Rest the inflamed joint and protect it from movement. You may use zylp-ajr-nicfjfv ibuprofen or naproxen to treat pain and inflammation, unless another medicine was prescribed. If you can't take these medicines, acetaminophen may help with the pain, but does not treat inflammation. If you have chronic liver or kidney disease or ever had a stomach ulcer or gastrointestinal bleeding, talk with your doctor before using these medicines. As your symptoms improve, begin gradual motion at the involved joint. Follow-up care Follow up with your healthcare provider if you are not improving after 5 to 7 days of treatment. When to seek medical advice Call your healthcare provider right away if any of these occur: Redness over the painful area Increasing pain or swelling at the joint Fever lasting 24 to 48 hours or chills, or as advised by your healthcare provider [phone] [employer]. [address] [place] [address], [place] [address]. All rights reserved. This information is not intended as a substitute for professional medical care. Always follow your healthcare professional's instructions. Additional Information VACCINATE! IT SAVES LIVES! Members of the community who have not yet received the COVID-19 vaccine and would like to receive it can visit one of [facility] vaccine clinics. There are many vaccine clinic locations within the [facility]. For locations and available times, please visit www.gettheshot.coronavirus.[place].gov/. It is important to note that some COVID mobile vaccine clinics are held outdoors and may be canceled in rainy or stormy conditions. To learn more about pediatric vaccinations (ages 5-11), we invite you to visit the [facility] webpage. https://www.[email or web address] Responses.org/pages/2 821-Kztuo-Ylrppwyzstv-Frequently-Asked -Questions.html To learn more about the COVID-19 vaccine, we invite you to visit the CDC website for a list of frequently asked questions. https://www.cdc.gov/coronavirus/2019-n cov/vaccines/faq.html [facility] Patient Portal Access Instructions: Stay connected with your healthcare team and access your personal medical information anytime with the [facility] Patient Portal. If you would like a full copy of your medical records please contact the [facility] Medical Records Department Tuesday through Tuesday between 8a.m. and 4:30p.m. Please follow the directions below to access the portal: 1.Access the email account you provided upon registration to the hospital.2.Look for an invitation email from [facility].3.Open the email and access the invitation link: Accept Invitation to [facility]4.Fill in the required marinelli to create your account. Sign into [email or web address] with your username and password that you created in the above steps to stay up to date. You can then view a summary of results, a summary of your visits, and the ability to download your summaries to your computer or send the information securely to a physician. Remember that your healthcare information is confidential, so carefully consider who you will allow to register on the [facility] Patient Portal for access to your information. You can also access the [facility] Patient Portal on the Undesk. Simply click on Health Records under Health Data and then click on the [facility] logo. HOW TO SAFELY DISPOSE OF PRESCRIPTION MEDICATIONS Please use one of the following methods to safely dispose of your unused medications. 1.Use a drug disposal kit: the drug disposal pouch allows you to safely discard your old and unused drugs. Ask your nurse to give you one when you are discharged.2.Visit a local take-back location: Many local pharmacies and police departments have programs that collect old and unwanted prescription drugs. Call your local pharmacy or go to http://Philoptima.[employer]/3Q2Nk7c to find one close to you.3.Make use of household items: Use cat litter or old coffee grounds to dispose medications if other options are not available. Mix your drugs with these household products, seal them in an airtight container and throw it into the garbage. Call [facility]: [phone] to be sure your drugs can be disposed of in this way. Some medicines may require a different approach.4.Never flush your medications down the toilet. IF YOU HAVE BEEN PRESCRIBED AN OPIOIDS FOR PAIN If you have been prescribed an opioid (such as hydrocodone, oxycodone or morphine), it is critical to understand the possible side effects and risks of opioid pain medications. Even when taken as directed, opioids can have several side effects including: Tolerance, meaning you might need to take more of a medication for the same pain relief. Nausea, vomiting and/or constipation. Sleepiness, dizziness, dry mouth, confusion, depression or itching. Physical dependence, meaning you have withdrawal symptoms when a medication is stopped ? this can develop within a few days. KNOW YOUR RESPONSIBILITIES It is important to know exactly how much and how often to take the opioid pain medications you are prescribed. Never take opioids in higher amounts or more often than prescribed. Do not combine opioids with alcohol or other drugs that cause drowsiness, such as benzodiazepines, also known as benzos, including diazepam and alprazolam, muscle relaxants or sleep aids. Never sell or share prescription opioids. This is illegal. Store opioids in a secure place and out of reach of others (including children, family, friends and visitors). The last page(s) of this document has been signed and retained as a CHART COPY Signatures Patient Education Materials LEOPOLDO GUERRIER (CUSTOM) Tendonitis Medication Leaflets My discharge plan and instructions have been reviewed and explained to me and IABDI CONNIE L understand my current condition and have read and understand these discharge instructions. I have received a written copy of the plan/instructions. If I have questions, I am aware that I should contact my doctor. 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 Multiplanar reformatted images are provided for review. Automated exposure control, iterative reconstruction, and/or weight based adjustment of the mA/kV was utilized to reduce the radiation dose to as low as reasonably achievable. COMPARISON: None HISTORY: ORDERING SYSTEM PROVIDED HISTORY: Reason for Exam: pt had surgery on rt thumb 6 weeks ago. about 3 weeks ago tried to use rt hand to open something and felt extreme pain in rt hand up to right elbow area. pain has gotten worse. pain FINDINGS: No acute osseous abnormality. No suspicious osseous abnormality. The joint spaces are maintained. Proximal to the elbow, there is a 0.4 mm round density which likely projects off of the suspected basilic vein possibly representing a small pseudoaneurysm. (Series 4 image 762). There is a fluid collection with surrounding hyperdensity measuring approximately 1.6 x 0.8 x 1.5 cm (AP, transverse, craniocaudal) along the palmar surface of the 1st metacarpal phalangeal joint and appears to partially surround the adjacent flexor pollicis longus tendon with additional fluid noted tracking along the more proximal flexor pollicis longus. There is mild adjacent inflammatory change in the subcutaneous tissue of the proximal 1st digit. Additional fluid noted in the carpal tunnel as well as tracking slightly proximally (series 4, image 351). Ligaments and tendons are not well evaluated on this exam. No visible muscle atrophy. Mild skin thickening noted along the posterior elbow joint, posterior to the olecranon, likely within normal limits. IMPRESSION: Fluid collection measuring up to 1.6 cm along the palmar surface of the 1st metacarpal phalangeal joint and appears to partially surround the adjacent flexor pollicis longus tendon and tracks proximally. Findings most likely relate to possible tenosynovitis with additional postsurgical fluid collection including seroma versus abscess not excluded. Additional fluid noted in the carpal tunnel as well as tracking slightly proximal. If clinically appropriate further evaluation with dedicated MRI may be beneficial. Suspect a subcentimeter pseudoaneurysm off the suspected basilic vein, that appears incidental. I have personally reviewed the images of this examination, and agree with the resident's findings and interpretation. Interpreted by: Giovani Woodruff MD Preliminary Report By: Vivek Mathias Electronically signed By Giovani Woodruff MD Dictated Date: 02/04/2024 7:10:27 AM Prelim Date: 02/04/2024 7:41:59 AM Sign Date: 02/04/2024 7:49:04 AM Ordering Provider: ELIANE MOLINA [facility] Evaluation + Plan note Note Date & Type Note Facility Evaluation + Plan note No data available for this section [facility] Summary Purpose Family History No Family History Records Found No data available for this section No Family History Records Found Advance Directives No Advanced Directives Records FoundNo Advanced Directives Records Found Additional Source Comments INFORMATION SOURCE (unrecogn ized section and content) DATE CREATED AUTHOR 03/24/2018 [facility] DATE CREATED AUTHOR AUTHOR'S ORGANIZ ATION 02/11/2024 [facility] ([place]) Patient Care team informatio n (unrecognized section and content) Care Team Personnel Name: MATI AUGUSTINE DO Member Role: Primary Care Physician Address: Address: [facility] [address] [place] [address] [place] [address]- Care Team Related Persons Name: ABDI STEEN Name: JUANY KOHLI Address: Home [address] [place] [place] [id number] Address: [facility] [address] [place] [id number] FOR RECORDS PERTAINING TO PATIENTS WHO ARE [...] BE BASED ON THE PRIMARY CLINICAL RECORDS. [facility] [employer] [facility]. provides no warranty or guarantee of the accuracy or completeness of information in this document.
[2024-08-03 15:09] LABS: HPV APTIMA, High Risk Negative (Negative)
== END | disposition home or self-care (01) ==
LOC: LABSPEC 12:02
PROVIDERS: PCP Family Medicine; Referring Provider Obstetrics & Gynecology; Visit Provider Obstetrics & Gynecology
DX: Z12.4 Encounter for screening for malignant neoplasm of cervix (principal)
CPT/HCPCS: 87624; 88175; G0145

== ENCOUNTER → 2024-08-24 | Outpatient (CLI) | payer OTHER, SELFPAY ==
[2024-08-24 15:05] LABS: Albumin, Serum 4.1 g/dL (3.2-5.0); BUN 12 mg/dL (7-18); Calcium,Total 9.5 mg/dL (8.5-10.1); Chloride 106 mmol/L (98-107); Creatinine, Serum 0.92 mg/dL (0.55-1.02); EST Glomerular Filtration Rate 67 mL/min (>60); Est Glom Filt Rate - Afr Amer 82 mL/min (>60); Glucose 96 mg/dL (74-106); Phosphorus 3.6 mg/dL (2.5-4.9); Potassium 3.5 mmol/L (3.5-5.1); Sodium Level 140 mmol/L (136-145)
== END | disposition home or self-care (01) ==
LOC: LAB 13:31
PROVIDERS: PCP Family Medicine; Referring Provider Internal Medicine Nephrology; Visit Provider Internal Medicine Nephrology
DX: N18.31 Chronic kidney disease, stage 3a (principal)
CPT/HCPCS: 36415; 80069

== ENCOUNTER → 2024-10-11 | Outpatient (CLI) | payer OTHER, SELFPAY ==
--- NOTE | 2024-10-11 07:11 | BI_ITS ---
MAMMOGRAPHY - BILATERAL SCREENING REASON FOR EXAM: Female, 54 years old. Routine annual screening examination. PERTINENT HISTORY: Non-contributory. TECHNIQUE: Digital bilateral breast kiarra (3D mammographic acquisition) in the CC and MLO projections. 2-D mediolateral oblique (MLO) and craniocaudad (CC) views of both breasts were obtained. CAD: Full Field Digital Mammography with Computer Added Detection was performed. COMPARISON: Comparison is made with prior study dated October 2023 and October 07, 2022. FINDINGS: Breast Composition: There are scattered areas of fibroglandular density. There are no dominant masses or suspicious calcifications. Stable small benign-appearing bilateral axillary lymph nodes. No other significant abnormalities are identified. There has been no significant change since the prior study. BI/SCRN MAMM (CAD)W/KIARRA BILAT IMPRESSION: Stable bilateral screening mammogram. Yearly follow-up mammogram recommended. (A) ASSESSMENT CATEGORY: BIRADS Category 2: Benign. A letter regarding these results will be sent to the patient by the facility within 30 days. Approximately 10% of breast cancers are not detected by mammography. A normal mammogram should not delay biopsy of a clinically suspicious abnormality. [id number] Electronically Signed: Rodo Sanford MD at 8:56 EST ,
== END | disposition home or self-care (01) ==
LOC: OPBI 07:10
PROVIDERS: PCP Family Medicine; Referring Provider Internal Medicine Hematology & Oncology; Visit Provider Internal Medicine Hematology & Oncology
DX: Z12.31 Encounter for screening mammogram for malignant neoplasm of breast (principal)
CPT/HCPCS: 77063; 77067

== ENCOUNTER → 2024-12-05 | Outpatient (CLI) | payer OTHER, SELFPAY ==
--- NOTE | 2024-12-05 08:40 | CT_ITS ---
PROCEDURE: ABDOMEN WITH IV CONTRAST REASON FOR EXAM: Follow-up of splenic lesion. History of hepatic and splenic cysts. Stage 3 kidney disease. TECHNIQUE: Abdomen CT with intravenous contrast. No oral contrast. IV CONTRAST: 100 cc of Isovue-300. COMPARISON: Comparison is made with prior examination dated December 06, 2023. FINDINGS: Lung bases: Clear Liver: Stable hepatic cysts. Gallbladder: Unremarkable. Spleen: Since prior study, the hypodense nodule in the inferior aspect of the spleen has decreased in size. It presently measures 1.4 cm x 2.1 cm. Borderline splenomegaly. Pancreas: Unremarkable. Adrenals: Unremarkable. Kidneys: Unremarkable. Bowel: Visualized loops of bowel in the upper abdomen are unremarkable. Lymph nodes: No suspicious lymph node enlargement. Vasculature: Unremarkable Peritoneum / Retroperitoneum: No ascites or free air at the upper abdomen. Bones: Unremarkable. CT/Abdomen WITH IV Contrast IMPRESSION: Stable hepatic cysts. Interval decrease in size of the hypodense nodular density in the inferior aspe ct of the spleen. One or more dose reduction techniques were used (e.g., Automated exposure contr ol, adjustment of the mA and/or kV according to patient size, use of iterative reconstruction technique). Reading Location: [id number]
[2024-12-05 08:58] LABS: CREATININE FINGERSTICK < 1.0 mg/dL (0.55-1.02); EGFR FINGERSTICK > 60.0000 mL/min (>60)
== END | disposition home or self-care (01) ==
LOC: CT 08:25
PROVIDERS: PCP Family Medicine; Referring Provider Internal Medicine Hematology & Oncology; Visit Provider Internal Medicine Hematology & Oncology
DX: D73.89 Other diseases of spleen (principal); N18.30 Chronic kidney disease, stage 3 unspecified; K76.89 Other specified diseases of liver
CPT/HCPCS: 74160; Q9967

== ENCOUNTER → 2025-01-05 | Outpatient (CLI) | payer OTHER, SELFPAY ==
--- NOTE | 2025-01-05 10:16 | US_ITS ---
PROCEDURE: THYROID 01/05/2025 THYROID ULTRASOUND REASON FOR EXAM: THYROID NODULE None. TECHNIQUE: Thyroid ultrasound COMPARISON: None. FINDINGS: Right thyroid lobe measures 4.5 x 2.4 x 2.4 cm. Left thyroid lobe measures 4.2 x 1.4 x 1.6 cm. Isthmus thickness is2.1 mm. Thyroid Size: Upper limits normal homogeneous Background Echotexture: Thyroid Nodules: In the mid left lobe there is a nodule measuring 11.1 mm by 5.1 mm AP x 7.2 mm. The nodule is mixed cystic and solid open (1); isoechoic (1); wider than tall (0); smoothly marginated (0) and no calcifications (0). TR 2. Not suspicious. Another left lobe, midline nodule is cystic, anechoic, wider than tall, smoothly marginated and no calcifications. TR 1. Benign. A mid right lobe nodule measures 2.7 cm by 2.2 cm x 2.0 cm. The nodule is mixed cystic and solid (1); isoechoic (1); wider than tall (0); margins are smooth (0); and no calcifications (0). TR 2 not suspicious. Also in the mid right lobe there is an 8 mm nodule which is solid (2); isoechoic (1). Wider than tall, smoothly marginated and no calcifications (0). TR 3. Management guidelines suggest no FNA biopsy and no imaging follow-up necessary. In the upper pole of the right lobe, there is a solid nodule (2), isoechoic (1); Wider than tall; smoothly marginated; and no calcifications (0). TR 3. Management guidelines for thyroid nodules varies according to size. For a 10 mm maximum dimension nodule no FNA biopsy and no imaging follow-up is recommended. Other: US/Thyroid IMPRESSION: Gland is upper limits normal size and no worrisome nodules are found. OVERALL FINAL ASSESSMENT: No suspicious thyroid nodules that would require FNA biopsy or imaging follow-up per ACR TI-RADS guidelines Reading [facility]
== END | disposition home or self-care (01) ==
LOC: US 10:14
PROVIDERS: PCP Family Medicine; Referring Provider Surgery; Visit Provider Surgery
DX: E04.1 Nontoxic single thyroid nodule (principal)
CPT/HCPCS: 76536

== ENCOUNTER → 2025-01-15 | Outpatient (CLI) | payer OTHER, SELFPAY ==
[2025-01-15 17:39] LABS: Free T3 3.3 pg/mL (2.18-3.98)
== END | disposition home or self-care (01) ==
LOC: LAB 15:57
PROVIDERS: PCP Family Medicine; Referring Provider Surgery; Visit Provider Surgery
DX: E04.1 Nontoxic single thyroid nodule (principal)
CPT/HCPCS: 36415; 84439; 84443; 84481

== ENCOUNTER → 2025-01-26 | Outpatient (CLI) | payer OTHER, SELFPAY ==
[2025-01-26 12:59] LABS: Albumin, Serum 4.6 g/dL (3.5-5.0); Anion Gap 12 (5-15); BUN 19 mg/dL (4-19); Calcium,Total 9.6 mg/dL (7.6-11.0); Carbon Dioxide 25.9 mmol/L (21.0-32.0); Chloride 104 mmol/L (98-108); Creatinine, Serum 1.17 mg/dL (0.70-1.20); EST Glomerular Filtration Rate 56 (>60); Glucose 100 mg/dL (70-99); Phosphorus 3.6 mg/dL (2.7-4.5); Potassium 3.7 mmol/L (3.3-5.1); Sodium Level 142 mmol/L (133-145)
== END | disposition home or self-care (01) ==
PROVIDERS: PCP Family Medicine; Referring Provider Internal Medicine Nephrology; Visit Provider Internal Medicine Nephrology
DX: N18.31 Chronic kidney disease, stage 3a (principal)
CPT/HCPCS: 36415; 80069

== ENCOUNTER 2025-02-27 08:50 | Inpatient (IN) | payer OTHER, SELFPAY ==
[2025-02-27] VITALS (11 sets, daily range): BP systolic 115–148; BP diastolic 68–90; PULSE 70–101; RESP 15–23; TEMP 36.4–37.1; O2SAT 96–100; BMI 35.9; BMI 34.9
--- NOTE | 2025-02-27 09:16 | CT_ITS ---
PROCEDURE: CTA CHEST W/WO CONTRAST 02/27/2025 REASON FOR EXAM: ABNORMAL CT NECK, SHORTNESS OF BREATH TECHNIQUE: CTA axial imaging of the chest with intravenous contrast. Multiplanar and multisequence images were obtained. PATIENT PREPARATION: Per protocol One or more dose reduction techniques were used (e.g., Automated exposure control, adjustment of the mA and/or kV according to patient size, use of iterative reconstruction technique). CONTRAST: Isovue-300 VOLUME: 100 mL RADIATION DOSE SUMMARY: CTDlvol: 30 mGy DLP: 2100.22 mGycm . COMPARISON: Prior CT scan of the brain done earlier in the day. FINDINGS: Hardware: EKG electrodes are seen. Heterogeneous appearance of the right lobe of the thyroid with cystic spaces. Lymph nodes: Small benign-appearing mediastinal lymph nodes. Heart: Unremarkable Thoracic Aorta: No thoracic aortic aneurysm or dissection. Pulmonary Vessels: No evidence of acute pulmonary emboli through the major subsegmental branches. Lungs and Airways: 2.6 cm x 2.4 cm cystic structure at the level of the aortopulmonary window suggestive of possible pericardial cyst. Pleura: Unremarkable Upper Abdomen: Scattered small hypodensities within the liver suggestive of cysts. Borderline splenomegaly. Bones: Degenerative changes of the thoracic spine. CT/CTA Chest W/WO Contrast IMPRESSION: No evidence of pulmonary embolism. 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 Heterogeneous appearance of the thyroid. Findings suggestive of multiple small hepatic cysts. Reading Location: [place] [id number]
--- NOTE | 2025-02-27 09:16 | CT_ITS ---
PROCEDURE: BRAIN/HEAD W/WO CONTRAST 02/27/2025 REASON FOR EXAM: DIZZINESS, MEMORY LOSS Vertigo. TECHNIQUE: Head CT before and following intravenous contrast. Coronal and Sagittal reconstruction series were provided. CONTRAST: Isovue-300 VOLUME: 100 mL One or more dose reduction techniques were used (e.g., Automated exposure control, adjustment of the mA and/or kV according to patient size, use of iterative reconstruction technique). RADIATION DOSE SUMMARY: CTDlvol: 44.99 mGy DLP: 796.11 mGycm COMPARISON: None FINDINGS: Acute findings: There is evidence of a 4.1 cm x 3.2 cm by 2.6 cm enhancing rounded soft tissue mass in the medial aspect of the left frontal lobe extending into the right frontal lobe. There is evidence of surrounding edema more prominent in the left frontal lobe. A neoplastic process should be ruled out. There is evidence of mass effect. Postcontrast images: Enhancing mass as described. CSF Spaces: Normal Sinuses/Mastoids: Mucosal thickening of the ethmoid sinuses. Bones: Unremarkable CT/Brain/Head W/WO Contrast IMPRESSION: 3.2 cm 4.1 cm by 2.4 cm enhancing mass involving the medial aspect of the right and left frontal lobes more prominent on the left side with surrounding edema and mass effect. A neoplastic process should be ru led out. No evidence of hydrocephalus. Reading Location: [place] [id number]
[2025-02-27 09:29] LABS: Absolute Lymphocyte Count 1.32 X10^3/uL (0.83-4.51); Absolute Neutrophil Count 4.5 X10^3/uL (2.0-7.7); Basophil# 0.04 X10^3/uL; Basophil% 0.6 % (0-1); Eosinophil# 0.22 X10^3/uL; Eosinophils% 3.4 % (0-5); Hematocrit 30.3 % (37-47); Hemoglobin 10.4 g/dL (12.0-15.0); Lymphocyte # 1.32 X10^3/ul (0.83-4.51); Lymphocyte % 20.4 % (19-41); Mean Corp Hgb Conc 34.3 g/dL (32-36); Mean Corpuscular Volume 84.4 fL (81-99); Mean Platelet Vol. 9.1 fl (6.2-12.0); Monocyte# 0.38 X10^3/uL; Monocyte% 5.9 % (0-10); NRBC Flagged by Analyzer 0 % (0-5); Neutrophil # 4.48 X10^3/uL (2.7-7.7); Neutrophil % 69.1 % (47-70); Platelet Count 260 K/mm3 (150-450); RBC Distribution Width CV 14.5 % (11.6-14.6); Red Blood Count 3.59 M/mm3 (4.2-5.4); White Blood Count 6.5 K/mm3 (4.4-11.0)
[2025-02-27 09:52] LABS: Anion Gap 11 (5-15); BUN 14 mg/dL (4-19); BUN/Creat Ratio 11.9 RATIO (10-20); Calcium,Total 9.6 mg/dL (7.6-11.0); Carbon Dioxide 26.2 mmol/L (21.0-32.0); Chloride 106 mmol/L (98-108); Creatinine, Serum 1.16 mg/dL (0.70-1.20); EST Glomerular Filtration Rate 56 (>60); Estimated Creatinine Clearance 58.17 ml/min (50-250); Glucose 108 mg/dL (70-99); Potassium 4.2 mmol/L (3.3-5.1); Sodium Level 143 mmol/L (133-145)
--- NOTE | 2025-02-27 10:03 | EX.ED.DYSGE1 ---
HPI History of Present Illness Chief Complaint: Shortness of Breath Narrative Narrative: 54-year-old female past medical history of swelling of thyroid for the last 3 years was sent in by her surgeon, Dr. Trevor Lanier, for further imaging studies. In discussion with general surgery, patient had CT of the thyroid performed for swelling that she says has been going on for 3 years. She had been referred to him by her primary care provider. It was noted on the CT that there may be a brain mass as well as a questionable pulmonary embolism. Patient states that she has been short of breath for few weeks to month, and is also having problems with memory loss. She states that she did not remember going to the [place] or driving there the other day. She denies any headaches or nausea and vomiting. No exacerbating or alleviating factors. [facility] Medical History Chronic renal failure Trigger thumb Wears glasses Cancer Depression Anxiety Alcohol use Thyroid disease Easy bruising High cholesterol Restless legs Migraine headache Vertigo History of ulceration Gastric reflux Former smoker History of edema Normal Holter exam History of echocardiogram Trigger thumb of right hand Gammopathy Lesion of spleen Obesity Dermatitis Heart valve problem Polycystic ovaries Heart murmur Hyperlipidemia Hypertension Chronic headaches Emotional disorder Breast lump blood transfusion Bleeding disorder Back problem Anemia Seasonal allergies Home Medications ?Medication ?Instructions ?Recorded ?Last Taken ?Type omeprazole magnesium 20 mg 20 mg PO BID #180 tabs 03/22/23 02/27/25 Rx tablet,delayed release (Prilosec OTC) clobetasol 0.05 % topical ointment 1 applic topical DAILY PRN skin 12/05/23 Unknown History irritation metoprolol succinate 50 mg 50 mg PO BID #120 TABLETS 11/21/24 02/27/25 Rx tablet,extended release 24 hr multivitamin 1 tab PO QAM 12/11/24 Unknown History triamterene 37.5 0.5 tab PO QAM #90 tabs 01/04/25 02/27/25 Rx mg-hydrochlorothiazide 25 mg tablet valacyclovir 500 mg tablet 500 mg PO DAILY #30 TABLETS 01/29/25 Unknown Rx brexpiprazole 2 mg tablet (Rexulti) 2 mg PO DAILY 02/27/25 02/26/25 History clonazepam 1 mg tablet (Klonopin) 1 - 2 mg PO QHS 02/27/25 02/26/25 History echinacea 400 mg capsule 400 mg PO DAILY 02/27/25 02/27/25 History escitalopram oxalate 20 mg tablet 20 mg PO DAILY 02/27/25 02/27/25 History (Lexapro) rosuvastatin 10 mg tablet 10 mg PO QHS 02/27/25 02/26/25 History Allergy/AdvReac Type Severity Reaction Status Date / Time clindamycin Allergy Severe burning & Verified 02/27/25 08:54 watery eyes Sulfa (Sulfonamide Allergy Severe Hives Verified 02/27/25 08:54 Antibiotics) erythromycin base Allergy eye Verified 02/27/25 08:54 redness, watering, swelling Family History Father Alcohol abuse Anemia Anxiety Arthritis Depression Mental disorder Suicide attempt Heart disease Hypertension High cholesterol Mother Anemia Anxiety Arthritis Depression Hypertension High cholesterol Mental disorder Diabetes Grandmother Bleeding disorder Aunt Breast cancer Myocardial infarction Grandfather Myocardial infarction Grandmother CVA (cerebral vascular accident) Surgical History H/O thumb surgery History of loop electrical excision procedure (LEEP) History of bone marrow biopsy History of D&C liposuction to chin History of tonsillectomy and adenoidectomy History of tubal ligation Social History current occupational status: employed current occupation: [employer] Smoking Status: Unknown if ever smoked alcohol intake: current alcohol intake frequency: a few times a month Alcohol type: wine substance use type: does not use caffeine: Yes what type of physical activity do you participate in: walking and other details: rowing frequency: 1-2 times per week ROS ROS ED ROS Narrative Review of systems positive for memory loss and shortness of breath. Positive thyroid swelling for 3 years. No headaches, no fevers or chills, no nausea or vomiting. EXAM Physical Exam Narrative Exam Narrative: Afebrile. Vital signs noted. Nontoxic-appearing. Cardiovascular examination feels a regular rate and rhythm. Lungs are clear to auscultation bilaterally. Abdomen is soft and nontender with normal active bowel sounds, no guarding or rebound. Neurological examination shows her to be awake, alert, interactive, answering questions appropriately. Nonfocal, nonlateralizing. Const Vital Signs: 02/27/25 08:51 02/27/25 10:51 02/27/25 11:38 Temperature 97.6 F L Temperature Source Oral Pulse Rate 88 87 Respiratory Rate 16 16 Respiratory Effort Short of Breath Respiratory Depth Normal Respiratory Pattern Normal Blood Pressure 140/90 H 131/85 H Blood Pressure Mean 106 100 Pulse Ox 99 97 Oxygen Delivery Method Room Air Room Air 02/27/25 12:00 Temperature Temperature Source Pulse Rate 85 Respiratory Rate 17 Respiratory Effort Respiratory Depth Respiratory Pattern Blood Pressure 130/76 H Blood Pressure Mean 94 Pulse Ox 99 Oxygen Delivery Method Room Air MDM MDM MDM Narrative Medical decision making narrative: Differential diagnosis includes but not limited to incidental brain mass versus pulmonary embolism versus artifact. I did obtain basic laboratory work, and she has normal white count of 6.5 with hemoglobin 10.4, hematocrit 30.3, platelet count normal at 260. BMP is remarkable for BUN of 14 creatinine 1.16. Glucose of probably elevated at 108 with normal anion gap of 11. CTA of the chest will be obtained to help rule out pulmonary embolism as well as CT of the brain. I reviewed the report of the outpatient imaging. In review of the radiology report of the CT of the brain, the impression is as follows: IMPRESSION: 3.2 cm 4.1 cm by 2.4 cm enhancing mass involving the medial aspect of the right and left frontal lobes more prominent on the left side with surrounding edema and mass effect. A neoplastic process should be ruled out. No evidence of hydrocephalus. Review of the radiology report of the CT of the chest shows no evidence of a pulmonary embolism, but she may have a pericardial cyst and multiple hepatic cysts. At this point in time, I discussed the patient with the hospitalist and as there is no available neurosurgery here, patient will require transfer to a tertiary care center. I discussed patient with the [facility] line, who states that she has been accepted and patient was discussed with neurosurgery who is comfortable with medical admission. I discussed patient with Dr. Andrews with hospitalist medicine. At this point in time, she is given Tylenol for a headache that she is experiencing and allowed to eat and take her home medications as she awaits a bed. Should no bed being available, patient will be signed out to the oncoming physician who will admit the patient here as needed. Currently she is in stable condition. History & Record Review Discussion w/independent historian: Patient Lab Data Attestation: I reviewed the patient's lab results. Labs: Laboratory Results - last 24 hr 02/27/25 02/27/25 09:12 09:13 WBC 6.5 RBC 3.59 L Hgb 10.4 L Hct 30.3 L MCV 84.4 MCH 29.0 MCHC 34.3 RDW Std Deviation 44.0 H RDW Coeff of Rosemary 14.5 Plt Count 260 MPV 9.1 Immature Gran % (Auto) 0.600 Neut % (Auto) 69.1 Lymph % (Auto) 20.4 [place] % (Auto) 5.9 Eos % (Auto) 3.4 Baso % (Auto) 0.6 Absolute Neuts (auto) 4.5 Absolute Lymphs (auto) 1.32 Nucleated RBC % 0 Sodium 143 Potassium 4.2 Chloride 106 Carbon Dioxide 26.2 Anion Gap 11 BUN 14 Creatinine 1.16 Estim Creat Clear Calc 58.17 Est GFR (MDRD) Non-Af 56 L BUN/Creatinine Ratio 11.9 Glucose 108 H Calcium 9.6 Radiography Diagnostic Testing: Clinical Impression(s) from Imaging Studies Brain CT 02/27/25 09:16 IMPRESSION: 3.2 cm 4.1 cm by 2.4 cm enhancing mass involving the medial aspect of the right and left frontal lobes more prominent on the left side with surrounding edema and mass effect. A neoplastic process should be ruled out. No evidence of hydrocephalus. Reading Location: [facility] Chest CTA 02/27/25 09:16 IMPRESSION: No evidence of pulmonary embolism. 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 Heterogeneous appearance of the thyroid. Findings suggestive of multiple small hepatic cysts. Reading Location: [facility] Discharge Plan Triage Chief Complaint: Shortness of Breath ED Provider: Pineda Medina Dx/Rx/DC Orders Clinical Impression: Frontal mass of brain, Multiple thyroid nodules, Memory loss Prescriptions: No Action omeprazole magnesium [Prilosec OTC] 20 mg tablet,delayed release (DR/EC) 20 mg PO BID Qty: 180 1RF multivitamin Tablet 1 tab PO QAM clobetasol 0.05 % ointment 1 applic topical DAILY PRN (Reason: skin irritation) echinacea 400 mg capsule 400 mg PO DAILY clonazepam [Klonopin] 1 mg tablet 1 - 2 mg PO QHS escitalopram oxalate [Lexapro] 20 mg tablet 20 mg PO DAILY rosuvastatin 10 mg tablet 10 mg PO QHS Rexulti 2 mg tablet 2 mg PO DAILY metoprolol succinate 50 mg tablet extended release 24 hr 50 mg PO BID Qty: 120 2RF triamterene-hydrochlorothiazid 37.5-25 mg tablet 0.5 tab PO QAM Qty: 90 0RF valacyclovir 500 mg tablet 500 mg PO DAILY Qty: 30 5RF Patient Comments: PT TAKES AT BEDTIME Primary Care Provider: Mick Nick Referrals: Mick Nick DO [Primary Care Provider] - Print Language: Albanian Disposition Disposition: Acute Care Hospital Discharge Location: [facility]
[2025-02-27] MEDS: Acetaminophen 325 MG Tablet 650 MG PO ×2 (12:35→20:46)
[2025-02-27] MEDS: dexAMETHasone 10 MG/ML Vial IV (14:06)
[2025-02-27 17:48] LABS: Bedside Glucose 146 mg/dL (74-106)
--- NOTE | 2025-02-27 18:47 | HP.PCM.HOS_ITS ---
[facility] - [facility] Date of Service: 02/27/25 Chief Complaint: Brain mass [facility] Narrative ELISA PATTON, is a 54 F who presents for an incidental finding of a frontal midline brain mass. Patient was having routine screening for her thyroid nodules with a head CT. The head CT showed a 3.2 x 4.1 x 2.4 cm enhancing mass in the medial aspect of the right and left frontal lobes, more prominent on the left with surrounding edema and mass effect. Patient was sent to the emergency room. While in the emergency room, she received a dose of 10 mg of dexamethasone. And they reached out to [facility] with neurosurgery and the patient was excepted. However they do not have any readily available beds of the hospital service at [facility] was contacted for admission until a bed becomes available at [facility]. Patient states that she has had some mild difficulties that she did not really attribute to anything particular other than just getting older including occasional difficulty learning to spell common words but these would be transient and being forgetful at times but once again transient. Denied any weakness or any kind of visual changes. [facility] Medical History Chronic renal failure Trigger thumb Wears glasses Cancer Depression Anxiety Alcohol use Thyroid disease Easy bruising High cholesterol Restless legs Migraine headache Vertigo History of ulceration Gastric reflux Former smoker History of edema Normal Holter exam History of echocardiogram Trigger thumb of right hand Gammopathy Lesion of spleen Obesity Dermatitis Heart valve problem Polycystic ovaries Heart murmur Hyperlipidemia Hypertension Chronic headaches Emotional disorder Breast lump blood transfusion Bleeding disorder Back problem Anemia Seasonal allergies Home Medications ?Medication ?Instructions ?Recorded ?Last Taken ?Type omeprazole magnesium 20 mg 20 mg PO BID #180 tabs 03/0402/27/25 Rx tablet,delayed release (Prilosec OTC) clobetasol 0.05 % topical ointment 1 applic topical DA NGHIA PRN skin 12/05/23 Unknown History irritation metoprolol succinate 50 mg 50 mg PO BID #120 TABLETS 0 11/21/24 02/27/25 Rx tablet,extended release 24 hr multivitamin 1 tab PO QAM 12/11/24 Unknow n History triamterene 37.5 0.5 tab PO QAM #90 tabs 04/0 01/2502/27/25 Rx mg-hydrochlorothiazide 25 mg tablet valacyclovir 500 mg tablet 500 mg PO DAILY #30 TABLETS 01/29/25 Unknown Rx brexpiprazole 2 mg tablet (Rexulti) 2 mg PO DAILY 02/0102/26/25 History clonazepam 1 mg tablet (Klonopin) 1 - 2 mg PO QHS 02/0102/26/25 History echinacea 400 mg capsule 400 mg PO DAILY 02/27/25 History escitalopram oxalate 20 mg tablet 20 mg PO DAILY 02/2702/27/25 History (Lexapro) rosuvastatin 10 mg tablet 10 mg PO QHS 02/27/25 History Allergy/AdvReac Type Severity Reaction Status Date / Time clindamycin Allergy Severe burning & Verified 02/27/25 08:54 watery eyes Sulfa (Sulfonamide Allergy Severe Hives Verified 02/27/25 08:54 Antibiotics) erythromycin base Allergy eye Verified 02/27/25 08:54 redness, watering, swelling Family History Father Alcohol abuse Anemia Anxiety Arthritis Depression Mental disorder Suicide attempt Heart disease Hypertension High cholesterol Mother Anemia Anxiety Arthritis Depression Hypertension High cholesterol Mental disorder Diabetes Grandmother Bleeding disorder Aunt Breast cancer Myocardial infarction Grandfather Myocardial infarction Grandmother CVA (cerebral vascular accident) Surgical History H/O thumb surgery History of loop electrical excision procedure (LEEP) History of bone marrow biopsy History of D&C liposuction to chin History of tonsillectomy and adenoidectomy History of tubal ligation Social History current occupational status: employed current occupation: [employer] Smoking Status: Unknown if ever smoked alcohol intake: current alcohol intake frequency: a few times a month Alcohol type: wine substance use type: does not use caffeine: Yes what type of physical activity do you participate in: walking and other details: rowing frequency: 1-2 times per week ROS ROS Narrative All review of systems were negative except as mentioned above in the history of present illness and the other review of systems. Vital Signs Vital Signs Vital Signs: 02/27/25 08:51 02/27/25 10:51 02/27/25 11:38 Temperature 36.4 C L Temperature Source Oral Pulse Rate 88 87 Respiratory Rate 16 16 Respiratory Effort Short of Breath Respiratory Depth Normal Respiratory Pattern Normal Blood Pressure 140/90 H 131/85 H Blood Pressure Mean 106 100 Pulse Ox 99 97 Oxygen Delivery Method Room Air Room Air 02/27/25 12:00 02/27/25 14:00 02/27/25 15:40 Temperature Temperature Source Pulse Rate 85 78 70 Respiratory Rate 17 15 16 Respiratory Effort Respiratory Depth Respiratory Pattern Blood Pressure 130/76 H 125/75 H 115/69 Blood Pressure Mean 94 91 84 Pulse Ox 99 97 99 Oxygen Delivery Method Room Air Room Air Room Air 02/27/25 17:00 02/27/25 17:29 Temperature 37.1 C Temperature Source Oral Pulse Rate 95 95 Respiratory Rate 20 H 23 H Respiratory Effort Respiratory Depth Respiratory Pattern Blood Pressure 148/77 H Blood Pressure Mean 100 Pulse Ox 98 96 Oxygen Delivery Method Room Air Room Air Weight Weight: 89.086 kg Body Mass Index (BMI) 35.9 Physical Exam Narrative - Physical Exam General: Alert, Oriented x3, Cooperative HEENT: Atraumatic, PERRLA, EOMI, Normocephalic Oral: Moist Mucosa, No Gingival or Mucosal Lesions/ Ulcerations Neck: Supple, No JVD, Negative Carotid Bruits Lungs: Clear to auscultation, Normal air movement Cardiovascular: Regular rate, Normal S1, Normal S2, No murmurs Abdomen: Bowel Sounds Present, Soft, Non Tender, Non-Distended, No Hepato- splenomegaly Extremities: No clubbing, No cyanosis, No edema, Capillary Refill Less than 3 Seconds Skin: No rashes, No breakdown Musculoskeletal: No Tenderness to Palpation of Joints or Extremities Neurological: Cranial nerves II through XII gross intact. Muscle strength 5-5 in upper and lower extremities. Psych/Mental Status: Normal Affect, Appropriate Results Lab / Micro Data 02/27/25 09:13 02/27/25 09:12 Labs: Laboratory Results - last 24 hr 02/27/25 09:12: Sodium 143, Potassium 4.2, Chloride 106, Carbon Dioxide 26.2, Anion Gap 11, BUN 14, Creatinine 1.16, Estim Creat Clear Calc 58.17, Est GFR (MDRD) Non-Af 56 L, BUN/Creatinine Ratio 11.9, Glucose 108 H, Calcium 9.6 05/28/25 09:13: WBC 6.5, RBC 3.59 L, Hgb 10.4 L, Hct 30.3 L, MCV 84.4, MCH 29.0, MCHC 34.3, RDW Std Deviation 44.0 H, RDW Coeff of Rosemary 14.5, Plt Count 260, MPV 9.1, Immature Gran % (Auto) 0.600, Neut % (Auto) 69.1, Lymph % (Auto) 20.4, Yell % (Auto) 5.9, Eos % (Auto) 3.4, Baso % (Auto) 0.6, Absolute Neuts (auto) 4.5, Absolute Lymphs (auto) 1.32, Nucleated RBC % 0 02/27/25 17:27: POC Glucose 146 H Imaging Radiology Impression Brain CT 02/27/25 09:16 IMPRESSION: 3.2 cm 4.1 cm by 2.4 cm enhancing mass involving the medial aspect of the right and left frontal lobes more prominent on the left side with surrounding edema and mass effect. A neoplastic process should be ruled out. No evidence of hydrocephalus. [facility] Chest CTA 02/27/25 09:16 IMPRESSION: No evidence of pulmonary embolism. 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 Heterogeneous appearance of the thyroid. Findings suggestive of multiple small hepatic cysts. 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 [id number] frontal midline mass. Patient received 10 mg of IV dexamethasone in emergency room and will continue with 4 mg twice daily given the vasogenic edema. Patient is currently hemodynamically stable and currently waiting on transfer to [facility] where she can be seen by neurosurgery where they can determine further treatment. In regards to some the workup she did undergo a CTA of her chest that show no PE and no evidence of any masses other than some small hepatic cysts PLAN: Plan Chronic conditions * Depression/anxiety/trauma: Continue with her home medications brexpiprazole, clonazepam, escitalopram * Hyperlipidemia: Continue with rosuvastatin VTE prophylaxis with SCDs. Charges/Coding Visit Charges Inpatient E&M: 12488 Init Hosp L2
[2025-02-27] MEDS: clonazePAM 1 MG Tablet PO (23:32)
[2025-02-27] MEDS: dexAMETHasone 4 MG/ML Vial IV (23:34)
[2025-02-27] MEDS: Atorvastatin Calcium 20 MG Tablet PO (23:34)
[2025-02-27] MEDS: Pantoprazole Sodium 20 MG Tablet PO (23:35)
[2025-02-27] MEDS: Metoprolol(XL)Succ 50 MG Tablet PO (23:43)
[2025-02-28] VITALS (8 sets, daily range): BP systolic 125–138; BP diastolic 74–88; PULSE 76–100; RESP 16–18; TEMP 36.5–36.7; O2SAT 97–99
[2025-02-28] MEDS: Morphine 2 MG/ML Syringe IV ×5 (00:53→20:12)
[2025-02-28] MEDS: 0.9% Saline Lock 10 ML Syringe IV ×5 (00:53→20:12)
[2025-02-28 05:57] LABS: Absolute Lymphocyte Count 0.96 X10^3/uL (0.83-4.51); Absolute Neutrophil Count 10.5 X10^3/uL (2.0-7.7); Basophil# 0.01 X10^3/uL; Basophil% 0.1 % (0-1); Hematocrit 32.1 % (37-47); Hemoglobin 10.9 g/dL (12.0-15.0); Lymphocyte # 0.96 X10^3/ul (0.83-4.51); Lymphocyte % 8.1 % (19-41); Mean Corpuscular Hgb 28.6 pg (27.0-32.0); Mean Corpuscular Volume 84.3 fL (81-99); Mean Platelet Vol. 9.4 fl (6.2-12.0); Monocyte# 0.21 X10^3/uL; Monocyte% 1.8 % (0-10); NRBC Flagged by Analyzer 0 % (0-5); Neutrophil # 10.48 X10^3/uL (2.7-7.7); Neutrophil % 88.7 % (47-70); Platelet Count 341 K/mm3 (150-450); RBC Distribution Width CV 14.5 % (11.6-14.6); RBC Distribution Width SD 43.8 fl (35.1-43.9); Red Blood Count 3.81 M/mm3 (4.2-5.4); White Blood Count 11.8 K/mm3 (4.4-11.0)
[2025-02-28 06:24] LABS: Anion Gap 13 (5-15); BUN 13 mg/dL (4-19); BUN/Creat Ratio 15.1 RATIO (10-20); Calcium,Total 9.8 mg/dL (7.6-11.0); Carbon Dioxide 23.8 mmol/L (21.0-32.0); Chloride 105 mmol/L (98-108); Creatinine, Serum 0.85 mg/dL (0.70-1.20); EST Glomerular Filtration Rate 82 (>60); Estimated Creatinine Clearance 78.23 ml/min (50-250); Glucose 158 mg/dL (70-99); Potassium 4.1 mmol/L (3.3-5.1); Sodium Level 142 mmol/L (133-145)
[2025-02-28] MEDS: Escitalopram Oxalate 20 MG Tablet PO (09:19)
[2025-02-28] MEDS: Acyclovir 200 MG Capsule 400 MG PO ×2 (09:19→22:43)
[2025-02-28] MEDS: dexAMETHasone 4 MG/ML Vial IV ×2 (09:19→22:42)
[2025-02-28] MEDS: Pantoprazole Sodium 20 MG Tablet PO ×2 (09:19→22:43)
[2025-02-28] MEDS: Triamterene 75MG/Hctz 50MG Tablet 0.25 TABLET PO (09:19)
[2025-02-28] MEDS: Metoprolol(XL)Succ 50 MG Tablet PO ×2 (09:20→22:43)
--- NOTE | 2025-02-28 09:41 | CASEMGMT ---
Tertiary Insurance review for hospitals In-network with MMO insurance if transfer is recommended is as follows: [facility], [facility], [place], [facility], [facility], [facility], , [facility], [facility], and [place]. Darshana Blake, Discharge Planning Asst.
[2025-02-28] MEDS: BREXPIPRAZOLE 2 MG TABLET PO (09:58)
--- NOTE | 2025-02-28 09:59 | PCM.PN.HOSP ---
Reason for Visit Reason for Visit: Diagnoses Other specified disorders of brain (02/27/25) Subjective Subjective Patient is a 54-year-old lady who was sent to the ED after she was found to have a brain mass Objective Data Objective Data Vital Signs: Vital Signs Temp Pulse Resp BP Pulse Ox O2 Del Method 98.0 F 76 16 125/78 H 98 Room Air 02/28/25 09:31 02/28/25 09:31 02/28/25 09:31 02/28/25 09:31 02/28/25 09:31 02/28/25 09:31 Oxygen Delivery Method Room Air Weight: 86.7 kg Body Mass Index (BMI) 34.9 Lab / Micro Data 02/28/25 05:21 02/28/25 05:21 Labs: Laboratory Results - last 24 hr 02/27/25 17:27: POC Glucose 146 H 02/28/25 05:21: WBC 11.8 H, RBC 3.81 L, Hgb 10.9 L, Hct 32.1 L, MCV 84.3, MCH 28.6, MCHC 34.0, RDW Std Deviation 43.8, RDW Coeff of Rosemary 14.5, Plt Count 341, MPV 9.4, Immature Gran % (Auto) 1.300 H, Neut % (Auto) 88.7 H, Lymph % (Auto) 8.1 L, [place] % (Auto) 1.8, Eos % (Auto) 0.0, Baso % (Auto) 0.1, Absolute Neuts (auto) 10.5 H, Absolute Lymphs (auto) 0.96, Nucleated RBC % 0, Sodium 142, Potassium 4.1, Chloride 105, Carbon Dioxide 23.8, Anion Gap 13, BUN 13, Creatinine 0.85, Estim Creat Clear Calc 78.23, Est GFR (MDRD) Non-Af 82, BUN/Creatinine Ratio 15.1, Glucose 158 H, Calcium 9.8 Radiography Diagnostic Testing: Radiology Impression Chest CTA 02/27/25 09:16 IMPRESSION: No evidence of pulmonary embolism. 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 Heterogeneous appearance of the thyroid. Findings suggestive of multiple small hepatic cysts. Reading Location: [place] [address] Physical Exam Narrative GENERAL: cooperative HEENT: Atraumatic; normocephalic EYES; Anicteric, Normal Conjunctiva NECK; supple, normal thyroid, RESPIRATORY: Diminished to auscultation CARDIOVASCULAR: Regular S1 S2, GI: soft, normoactive bowel sounds, : No Renal angle tenderness; EXTREMITIES: No edema, no clubbing, MUSCULOSKELETAL: no muscle wasting NEURO: Awake; no lateralizing signs. SKIN: No Rash PSYCH; Flat affect Assessment & Plan Assessment/Plan (1) Frontal mass of brain: PLAN: Plan Patient is a 54-year-old lady who was sent to the ED after she was found to have a brain mass 1. Brain mass ? CT of the brain ordered did show 3.2 cm 4.1 cm by 2.4 cm enhancing mass involving the medial aspect of the right and left frontal lobes more prominent on the left side with surrounding edema and mass effect. A neoplastic process should be ruled out. Arrangement initiated to have patient transferred to [facility] With bed not being available decision was made to admit patient pending transfer 2. Hypertension ? Blood pressure controlled, home medications continued with dose adjustment as needed 3. Dyslipidemia ?Patient is on statin therapy, continued at home dose 4. GERD ? On PPI 5. Depression with anxiety ? Patient is on brexpiprazole, clonazepam, escitalopram 6. Class II obesity with BMI 35 ? Weight loss advised 7. Multiple thyroid nodules ? Patient has undergone workup as outpatient including FNA patient is followed by Dr. Lanier with general surgery Charges/Coding Visit Charges Inpatient E&M: 64918 Subs Hosp L2
--- NOTE | 2025-02-28 18:50 | DS.PCM_ITS ---
Providers Date of Admission: 02/27/25 Date of Discharge: 02/28/25 Primary Care Physician: Dr. Mick Nick, DO Reason For Visit: BRAIN MASS WITH VASOGENIC EDEMA Diagnosis Discharge Diagnosis (1) Frontal mass of brain: Status: Acute Code(s): G93.89 - Other specified disorders of brain Plan Patient is a 54-year-old lady who was sent to the ED after she was found to have a brain mass 1. Brain mass ? CT of the brain ordered did show 3.2 cm 4.1 cm by 2.4 cm enhancing mass involving the medial aspect of the right and left frontal lobes more prominent on the left side with surrounding edema and mass effect. A neoplastic process should be ruled out. Arrangement initiated to have patient transferred to [facility] With bed not being available decision was made to admit patient pending transfer ? 02/28/2025; patient was transferred to [facility] once bed was obtained 2. Hypertension ? Blood pressure controlled, home medications continued with dose adjustment as needed 3. Dyslipidemia ?Patient is on statin therapy, continued at home dose 4. GERD ? On PPI 5. Depression with anxiety ? Patient is on brexpiprazole, clonazepam, escitalopram 6. Class II obesity with BMI 35 ? Weight loss advised 7. Multiple thyroid nodules ? Patient has undergone workup as outpatient including FNA patient is followed by Dr. Lanier with general surgery Medications at Discharge Home Medications omeprazole magnesium 20 mg tablet,delayed release (Prilosec OTC) 20 mg PO BID #180 tabs 03/22/23 clobetasol 0.05 % topical ointment 1 applic topical DAILY PRN skin irritation 12/05/23 metoprolol succinate 50 mg tablet,extended release 24 hr 50 mg PO BID #120 TABLETS 11/21/24 multivitamin 1 tab PO QAM 12/11/24 triamterene 37.5 mg-hydrochlorothiazide 25 mg tablet 0.5 tab PO QAM #90 tabs 01/04/25 valacyclovir 500 mg tablet 500 mg PO DAILY #30 TABLETS 01/29/25 brexpiprazole 2 mg tablet (Rexulti) 2 mg PO DAILY 02/27/25 clonazepam 1 mg tablet (Klonopin) 1 - 2 mg PO QHS 02/27/25 echinacea 400 mg capsule 400 mg PO DAILY 02/27/25 escitalopram oxalate 20 mg tablet (Lexapro) 20 mg PO DAILY 02/27/25 rosuvastatin 10 mg tablet 10 mg PO QHS 02/27/25 Hospital Course Summary of Care Provided Minutes Spent on Discharge: 38 Physical Exam Narrative GENERAL: cooperative HEENT: Atraumatic; normocephalic EYES; Anicteric, Normal Conjunctiva NECK; supple, normal thyroid, RESPIRATORY: Diminished to auscultation CARDIOVASCULAR: Regular S1 S2, GI: soft, normoactive bowel sounds, : No Renal angle tenderness; EXTREMITIES: No edema, no clubbing, MUSCULOSKELETAL: no muscle wasting NEURO: Awake; no lateralizing signs. SKIN: No Rash PSYCH; Flat affect Weight / BMI Weight Weight: 86.7 kg Body Mass Index (BMI) 34.9 ABG / Lab / Microbiology Data 02/28/25 05:21 02/28/25 05:21 Laboratory: Laboratory Results - last 24 hr 02/28/25 05:21: WBC 11.8 H, RBC 3.81 L, Hgb 10.9 L, Hct 32.1 L, MCV 84.3, MCH 28.6, MCHC 34.0, RDW Std Deviation 43.8, RDW Coeff of Rosemary 14.5, Plt Count 341, MPV 9.4, Immature Gran % (Auto) 1.300 H, Neut % (Auto) 88.7 H, Lymph % (Auto) 8.1 L, [place] % (Auto) 1.8, Eos % (Auto) 0.0, Baso % (Auto) 0.1, Absolute Neuts (auto) 10.5 H, Absolute Lymphs (auto) 0.96, Nucleated RBC % 0, Sodium 142, Potassium 4.1, Chloride 105, Carbon Dioxide 23.8, Anion Gap 13, BUN 13, Creatinine 0.85, Estim Creat Clear Calc 78.23, Est GFR (MDRD) Non-Af 82, BUN/Creatinine Ratio 15.1, Glucose 158 H, Calcium 9.8 D/C Instructions Discharge Diet: No restrictions Discharge Activity: Return to Normal Activity Call your doctor if you observe: Fever of 101 or Higher, Shortness of breath, Fainting spells and Chest pain DC O2, CPAP, BIPAP Needs Home O2 Discharge instructions: No Meaningful Use Info Meaningful Use Meaningful Use Diagnoses (Choose all that apply): None applicable Ischemic Stroke Statin Dosing Therapy Reference: STATIN DOSE THERAPY REFERENCE: * Patients > 75 years receive moderate or high dose statin therapy. * Patients 75 years or YOUNGER should receive HIGH intensity statin dose unless contraindicated. You will be required to document reason for non-treatment if statin daily dose does not meet guidelines. HIGH DOSE STATIN THERAPY DAILY Atorvastatin > than or = to 40 mg Rosuvastatin > than or = to 20 mg Amlodipine + Atorvastatin > than or = to 2.5/40 mg Ezetimibe + Simvastatin 10/80 mg Simvastatin 80mg Discharge Plan Admission Admit Date/Time: 02/27/25 18:42 Attending Provider: Esteban Boss Primary Care Provider: Mick Nick Consulting Providers: Godwin Lynch Discharge Orders/Prescriptions Prescriptions: No Action omeprazole magnesium [Prilosec OTC] 20 mg tablet,delayed release (DR/EC) 20 mg PO BID Qty: 180 1RF multivitamin Tablet 1 tab PO QAM clobetasol 0.05 % ointment 1 applic topical DAILY PRN (Reason: skin irritation) echinacea 400 mg capsule 400 mg PO DAILY clonazepam [Klonopin] 1 mg tablet 1 - 2 mg PO QHS escitalopram oxalate [Lexapro] 20 mg tablet 20 mg PO DAILY rosuvastatin 10 mg tablet 10 mg PO QHS Rexulti 2 mg tablet 2 mg PO DAILY metoprolol succinate 50 mg tablet extended release 24 hr 50 mg PO BID Qty: 120 2RF triamterene-hydrochlorothiazid 37.5-25 mg tablet 0.5 tab PO QAM Qty: 90 0RF valacyclovir 500 mg tablet 500 mg PO DAILY Qty: 30 5RF Patient Comments: PT TAKES AT BEDTIME Referrals / Follow Up: Mick Nick DO [Primary Care Provider] - Disposition Disposition (needs filled in before D/C Order can be placed): Acute Care Hospital Charges/Coding Visit Charges Inpatient E&M: 69610 Disch Hosp >30min
[2025-02-28] MEDS: Atorvastatin Calcium 20 MG Tablet PO (22:43)
[2025-02-28] MEDS: clonazePAM 1 MG Tablet PO (22:49)
== END 2025-02-28 23:04 | disposition short-term general hospital (02) | DRG 70 ==
LOC: ED 13:11 → PCU 19:02
PROVIDERS: Emergency Provider Emergency Medicine; PCP Family Medicine; Visit Provider Internal Medicine
DX: G93.89 Other specified disorders of brain (principal); G93.6 Cerebral edema; I12.9 Hypertensive chronic kidney disease with stage 1 through stage 4 chronic kidney disease, or unspecified chronic kidney disease; E04.2 Nontoxic multinodular goiter; K76.89 Other specified diseases of liver; N18.9 Chronic kidney disease, unspecified; F32.A Depression, unspecified; E66.812 Obesity, class 2; K21.9 Gastro-esophageal reflux disease without esophagitis; E78.2 Mixed hyperlipidemia; R51.9 Headache, unspecified; R22.0 Localized swelling, mass and lump, head; Z87.891 Personal history of nicotine dependence; R41.3 Other amnesia; Z68.35 Body mass index [BMI] 35.0-35.9, adult; Z75.1 Person awaiting admission to adequate facility elsewhere
CPT/HCPCS: 36415; 70470; 71275; 80048; 82962; 85025; 97802; 99285; Q9967; A4216; J2405

== ENCOUNTER → 2025-02-27 | Outpatient (CLI) | payer OTHER, SELFPAY ==
--- NOTE | 2025-02-27 06:39 | CT_ITS ---
PROCEDURE: SOFT TISSUE NECK WITH CONTRAST 02/27/2025 REASON FOR EXAM: DIFFICULTY SWALLOWING TECHNIQUE: CT of the soft tissues of the neck from the orbits to the upper mediastinum with intravenous contrast. CONTRAST: 75 cc Isovue-300 One or more dose reduction techniques were used (e.g., Automated exposure control, adjustment of the mA and/or kV according to patient size, use of iterative reconstruction technique). RADIATION DOSE SUMMARY: DLP: 644.56 mGycm COMPARISON: None FINDINGS: Airway: Patent Salivary glands: Unremarkable Lymph nodes: There is no visible pathologic adenopathy by size criteria. Thyroid: There is a 2.6 x 2.2 cm complex right thyroid nodule. There is a 0.5 cm low-density left thyroid nodule. Vasculature: Unremarkable Orbits: Unremarkable. There is a 3.6 x 3.7 cm anterior fossa mass, partly visualized at the midline Paranasal sinuses and mastoids: There is partial opacification of the right ethmoid air cells. Lung apices: Clear visualized portion of the esophagus is unremarkable. Upper mediastinum: There is a 4.6 x 2.0 cm circumscribed density at the left margin of the aortic arch and AP window, Hounsfield units = 3, likely pericardial cyst. Bones: Unremarkable There is a 2.0 by 1.2 cm density at the proximal right main pulmonary artery which may represent acute pulmonary embolus, image 8/122. CT/Soft Tissue Neck WITH Contrast IMPRESSION: There is a 2.6 x 2.2 cm complex right thyroid nodule. There is a 0.5 cm low-den sity left thyroid nodule. There is a 3.6 x 3.7 cm anterior fossa mass, partly visualized at the midline There is partial opacification of the right ethmoid air cells. There is a 4.6 x 2.0 cm circumscribed density at the left margin of the aortic arch and AP window, Hounsfield units = 3, likely pericardial cyst. There is a 2.0 by 1.2 cm density at the proximal right main pulmonary artery wh ich may represent acute pulmonary embolus, image 8/122. Further evaluation is indicated. Critical results were discussed with Dr. Lanier by Dr. Duffy at the time of dictation. Reading Location: [facility]
== END | disposition home or self-care (01) ==
LOC: CT 06:35
PROVIDERS: PCP Family Medicine; Referring Provider Surgery; Visit Provider Surgery
DX: R13.10 Dysphagia, unspecified (principal)
CPT/HCPCS: 70491; Q9967

== ENCOUNTER → 2025-05-16 | Outpatient (CLI) | payer OTHER, SELFPAY ==
[2025-05-16 16:12] LABS: Hematocrit 30.5 % (37-47); Hemoglobin 10.5 g/dL (12.0-15.0); Immature Granulocytes Count 0.080 X10^3/uL (0.0-0.0); Mean Corp Hgb Conc 34.4 g/dL (32-36); Mean Corpuscular Volume 82.4 fL (81-99); Mean Platelet Vol. 9.4 fl (6.2-12.0); NRBC Flagged by Analyzer 0 % (0-5); Platelet Count 285 K/mm3 (150-450); RBC Distribution Width CV 15.0 % (11.6-14.6); RBC Distribution Width SD 44.5 fl (35.1-43.9); Red Blood Count 3.70 M/mm3 (4.2-5.4); White Blood Count 8.2 K/mm3 (4.4-11.0)
[2025-05-16 16:42] LABS: AST(SGOT) 36 U/L (<=31); Alanine Aminotransfer ALT/SGPT 41 U/L (<=34); Albumin, Serum 4.5 g/dL (3.5-5.0); Alkaline Phosphatase 131 U/L (35-104); Anion Gap 14 (5-15); BUN 12 mg/dL (4-19); BUN/Creat Ratio 12.8 RATIO (10-20); Calcium,Total 9.1 mg/dL (7.6-11.0); Carbon Dioxide 25.3 mmol/L (21.0-32.0); Chloride 102 mmol/L (98-108); Globulin 2.6 g/dL (2.2-4.2); Glucose 97 mg/dL (70-99); Potassium 3.8 mmol/L (3.3-5.1)
--- OUTSIDE RECORDS SUMMARY | 2025-05-16 20:30 | XMS RPT_ITS | CCD ---
Author Organization [facility] CliniSyal Care Team Providers Care Damper Fitter Name Role Phone Dr. Mati Augustine Primary Care Provider Dr. Mati Augustine Attending Provider Dr. Mati Augustine Referring Provider DAVID Jeronimo Attending Provider Unavailab Dr. eGne Lima Attending Provider [phone] Mati Augustine Primary Care Provider Dr. Mati Augustine Referring Provider Dr. Mati Augustine Attending Provider Dr. Mauro Queen Attending Provider Dr. Mati Augustine Primary Care Provider [phone] Dr. Mati Augustine Attending Provider Dr. Mati Augustine Referring Provider Dr. Mati Augustine Primary Care Provider [phone] Dr. Mati Augustine Referring Provider Dr. Gene Lanier Attending Provider Dr. Mati Augustine Attending Provider [phone] MD Farhan Lima Attending Provider Dr. Mati Augustine Other Provider Dr. Lisa Tilley Attending Provider Dr. Mati Augustine Primary Care Provider [phone] Dr. Mati Augustine Referring Provider [phone] Dr. Gene Lanier Attending Provider [phone] Yaniv Crawford Attending Provider Dr. Mati Augustine Primary Care Provider Dr. Mati Augustine Referring Provider Dr. Mati Augustine Attending Provider Dr. Mati Augustine Primary Care Provider [phone] Dr. Mati Augustine Referring Provider [phone] Dr. Tracey Tavera Attending Provider Dr. Mati Augustine Primary Care Provider [phone] Dr. Mati Augustine Referring Provider [phone] Dr. Tracey Tavera Attending Provider Dr. Mati Augustine Attending Provider [phone] Dr. Mati Augustine Primary Care Provider [phone] Dr. Mati Augustine Referring Provider MD Farhan Lima Attending Provider Dr. Mati Augustine Primary Care Provider [phone] Dr. Mati Augustine Attending Provider Dr. Mati Augustine Referring Provider MD Farhan Lima Attending Provider Dr. Yaniv Crawford Attending Provider MD Farhan Lima Other Provider Dr. Mati Augustine Primary Care Provider Dr. Mati Augustine Attending Provider Dr. Mati Augustine Referring Provider Dr. Gene Lanier Attending Provider MATI AUGUSTINE DO Primary Care Physician DR ELIANE MOLINA DO Attending Unavailable MATI AUGUSTINE DO Primary Care Unavailable Dr. Mati Augustine DO Primary Care Provider [phone] Dr. Briseida Starks DO Attending Provider Dr. Briseida Starks DO Referring Provider Ty PARKS, Dr. Purvis Attending Provider Ty PARKS, Dr. Purvis Referring Provider Sandoval LIZAMA, Dr. Mati Mccartney Referring Provider [phone] Sandoval LIZAMA, Dr. Mati Mccartney Primary Care Provider [phone] Sandoval LIZAMA, Dr. Mati Mccartney Attending Provider [phone] Yolande PARKS, Dr. Murray Attending Provider Yolande PARKS, Dr. Murray Referring Provider Unavailable Primary Care Provider Unavailpérez Augustine DO, Dr. Mati Mccartney Primary Care Provider Ty PARKS, Dr. Purvis Attending Provider Ty PARKS, Dr. Purvis Referring Provider Raudel LIZAMA, Dr. Goins Attending Provider Raudel LIZAMA, Dr. Goins Referring Provider Olive Yang MD Emergency Provider Syed LIZAMA, Dr. Connelly Admit Provider Dr. Godwin Lynch DO Attending Provider Dr. Godwin Lynch DO Other Provider Dr. Esteban Boss MD Attending Provider Unavaila ble Dr. Godwin Lynch DO Attending Provider Dr. Esteban Boss MD Other Provider Unavailable Brown , Mati R Primary Care Provider ALIYA FRANKEL JR Attending Unavailable LEATHA GUERRERO Attending Unavailable Godwin Lynch Attending Unavailable Sandoval, Mati R Primary Care Unavailable Briseida Starks Attending Unavailable Sandoval, Mati R Primary Care Unavailable Briseida Starks Referring Unavailable Brown, Mati R Primary Care Unavailable Tracey Tavera Referring UnavailTracey Lopez Attending Unavailabl e Brown, Mati R Primary Care Unavailable Godwin Lynch Consulting Unavailable Godwin Lynch Admitting Unavailable Esteban Boss Attending Unavailable Esteban Boss Consulting Unavailable Brown, Mati R Attending Unavailable Brown, Mati R Primary Care Unavailable Brown, Mati R Referring Unavailable Gene Lanier Referring Unavailable Yolande, Gene Attending Unavailable Brown, Mati R Primary Care Unavailable Godwin Lynch Consulting Unavailable Godwin Lynch Admitting Unavailable Esteban Boss Attending Unavailable Brown, Mati R Primary Care Unavailable Gene Lanier Referring Unavailable Yolande, Gene Attending Unavailable Brown, Mati R Primary Care Unavailable Brown, Mati R Primary Care Unavailable Briseida Starks Referring Unavailable Briseida Starks Attending Unavailable Yolande, Gene Attending Unavailable Brown, Mati R Primary Care Unavailable Brown, Mati R Referring Unavailable Borvelasquez, Gene Referring Unavailable Borvelasquez, Gene Attending Unavailable Brown, Mati R Primary Care Unavailable Brown, Mati R Primary Care Unavailable Yaniv Crawford Attending Unavailable Isckarus, Yaniv Referring Unavailable Brown, Mati R Primary Care Unavailable Isckarus, Yaniv Referring Unavailable Isckarus, Yaniv Attending Unavailable Brown, Mati R Primary Care Unavailable IsckarusYaniv Attending Unavailable Isckarus, Brantour Referring Unavailable Brown, Mati R Attending Unavailable Brown, Mati R Primary Care Unavailable Brown, Mati R Referring Unavailable Brown, Mati R Primary Care Unavailable Brown, Mati R Referring Unavailable Tracey Tavera Attending Unavailabl e Brown, Amti R Primary Care Unavailable Brown, Mati R Referring Unavailable Brown, Mati R Attending Unavailable Brown, Mati R Primary Care Unavailable Brown, Mati R Referring Unavailable IsckarYaniv esteban Attending Unavailable Brown, Mati R Primary Care Unavailable Brown, Mati R Referring Unavailable IsckarusYaniv Attending Unavailable Brown, Mati R Attending Unavailable Brown, Mati R Primary Care Unavailable Brown, Mati R Referring Unavailable FEGATELLI, PAIGE Referring Unavailable BROWN, MATI R Primary Care Unavailable OLIVE YANG Referring Unavailabl e BROWN, MATI R Primary Care Unavailable JHNO PULIDO II Admitting Unavailable FABRIZIO AMBROCIO Attending Unavailable CINDY BALLESTEROS Unava ilable FABRIZIO AMBROCIO Attending Unavailable MACARENA, PAIGE Referring Unavailable BROWN, MATI R Primary Care Unavailable FABRIZIO AMBROCIO Attending Unavailable BROWN, MATI R Primary Care Unavailable FABRIZIO AMBROCIO Attending Unavailable BROWN, MATI R Primary Care Unavailable Brown DO, Dr. Mati R Primary Care Provider Dr. Mati Augustine DO Attending Provider [phone] Dr. Mati Augustine DO Referring Provider [phone] Yolande PARKS, Dr. Murray Attending Provider Dr. Gene Lanier MD Referring Provider Rob Atkinson Attending Provider [phone] Allergies Allergy Classification Reported Allergen(s) Allergy Type Date of Onset Reaction(s) Facility (20 sources) Clindamycin Drug Allergy 2 burning & watery eyes [facility] Comment on above: otic (20 sources) Sulfonamides (Antibiotic); Translations: [Sulfa (Sulfonamide Antibiotics)] Allergy to substance [address] [facility] (20 sources) Erythromycin Drug Allergy 2 Itching, Swelling [facility] Comment on above: Pt reacted to cream for eyes given for pink eye (1 source) Sulfonamide; Translations: [sulfa drugs] Drug allergy [facility] (1 source) Sulfonamides (Antibiotic) Propensity to adverse reactions 5 [facility] (6 sources) Genta-Gel; Translations: [GENTA-GEL] Propensity to adverse reactions to drug 6 Swelling [facility] (1 source) Clindamycin Drug Allergy 5 [facility] (1 source) Erythromycin Drug Allergy 5 [facility] Repository (2 sources) Erythromycin; Translations: [ERYTHROMYCIN] Drug Allergy 5 [facility] Repository Medications Current Medications Medication Drug Class(es) Dates [...] 1 tablet by mouth every twelve hours amoxicillin-clavul anate 875 mg-125 mg oral tablet 1 tab(s), Oral, q12h, X 7 day(s), # 14 tab(s), 0 Refill(s), 02/11/24 8:08:00 AM EDT, 77.3 Start Date: 02/04/24 Stop Date: 02/11/24 Status: Ordered Ascorbic Acid / Bioflavonoids (4 sources) Vitamin C take 2 doses by mouth once daily ASCORBIC ACID-BIOFLAVONOIDS ORAL Take 100 mg by mouth once daily. C-100 with 10 mg Bioflavonoids 2 pill qday Active brexpiprazole 2 mg oral tablet (16 sources) Atypical Antipsychotic Start: 02-19-2025 End: 05-13-2025 take 1 tablet by mouth once daily Brexpiprazole (Rexulti) 2 mg tablet Active 2 mg PO DAILY 01 11May 13, 2025 2:29pm take 1 tablet by mouth once lois y Brexpiprazole (Rexulti) 1 MG tablet Take 1 mg by mouth daily. Active clobetasol propionate 0.0005 mg/mg topical ointment (20 sources) Corticosteroid Start: 12-05-2023 Clobetasol 0.0 5 % ointment Active 1 NMA TOPICAL DAILY as needed for skin irritation December 05, 2023 1:00am Start: 05-06-2021 End: 12-05-2023 Clobetasol 0.05 % ointment D iscontinued 1 NMA TOPICAL TWICE A DAY 60 14 2 May 06, 2021 12:00am December 05, 2023 3:06pm clonazePAM 1 mg oral tablet (20 sources) Benzodiazepine Start: 11-01-2023 End: 04-25-2025 take 1-2 mg by mouth at bedtime as needed Clonazepam (Klonopin) 1 mg tablet Active 1 - 2 mg PO AT BEDTIME as needed for panic attack(s) 60 30 0 April 25, 2025 8:32am May 24, 2025 12:00am Panic attack Panic disorder [episodic paroxysmal anxiety] take 1 mg by mouth e very twenty-four hours as needed clonazePAM (KLONOPIN) 2 mg tablet Take 1 mg by mouth at bedtime as needed for anxiety. Take 1 to 2 mg Active Echinacea 400 mg cap (4 sources) take 1 capsule by mouth once daily Echinacea 400 mg cap Take 400 mg by mouth once daily. Active Echinacea (5 sources) Start: 02-28-20 take 1 capsule by mouth once daily Echinacea 400 mg capsule Active 400 mg PO DAILY February 27, 2025 12:00am escitalopram 20 mg oral tablet (16 sources) Serotonin Reuptake Inhibitor Start: 12-26-19 End: 02-28-20 take 1 tablet by mouth once daily Escitalopram Oxalate (Lexapro) 20 mg tablet Active 20 mg PO DAILY February 27, 2025 12:00am hydroCHLOROthiazide 25 mg / triamterene 37.5 mg oral tablet (20 sources) Potassium-sparing Diuretic, Thiazide Diuretic Start: 05-06-20 End: 04-02-20 Triamterene-Hydroch lorothiazid 37.5-25 mg tablet Active 1 {tbl} PO EVERY MORNING 90 April 02, 2025 9:56am Start: 05-06-2021 End: 10-12-2023 take 1 tablet by mouth once daily in the morning Triamterene-Hydrochlorothiazid Discontin ued 1 TABLET PO EVERY MORNING December 20, 2022 10:37am March 22, 2023 9:42am iv contrast (will be provided with radiology test) (4 sources) Start: 05-07-2025 inject 1 dose intravenously once iv contrast (will be provided with radiology test) Indications: Intracranial meningioma (HCC) MRI Brain Inject, intravenously, once for 1 dose.No IV access, insert saline lock prior to beginning of sedation, infusion, injection of imaging exam.Discontinue saline lock post exam. If Pt. has a central line or IVAD, may access for administration according to line specific nursing protocol.Once exam is complete flush line and de-access according to line specific nursing protocol in the MR contrast administration guidelines link 1 each 05/07/2025 Active Start: 04-09-2025 End: 05-07-2025 inject 1 dose intravenously once iv contrast (will be provided with radiology test) Indications: Intracranial meningioma (HCC) MRI Brain Inject, intravenously, once for 1 dose.No IV access, insert saline lock prior to beginning of sedation, infusion, injection of imaging exam.Discontinue saline lock post exam. If Pt. has a central line or IVAD, may access for administration according to line specific nursing protocol.Once exam is complete flush line and de-access according to line specific nursing protocol in the MR contrast administration guidelines link 1 each 04/09/2025 05/07/2025 Discontinued Start: 04-09-2025 inject 1 dose intravenously on ce iv contrast (will be provided with radiology test) Indications: Intracranial meningioma (HCC) MRI Brain Inject, intravenously, once for 1 dose.No IV access, insert saline lock prior to beginning of sedation, infusion, injection of imaging exam.Discontinue saline lock post exam. If Pt. has a central line or IVAD, may access for administration according to line specific nursing protocol.Once exam is complete flush line and de-access according to line specific nursing protocol in the MR contrast administration guidelines link 1 each 04/09/2025 Active 24 hr metoprolol succinate 50 mg extended release oral tablet (20 sources) beta-Adrenergic Yolette Start: 03-24-2022 End: 05-09-2025 take 1 tablet by mouth twice daily Metoprolol Succinate 50 mg tablet extended release 24 hr Active 50 mg PO TWICE A DAY 120 2 May 09, 2025 8:42am Start: 12-01-2021 End: 03-24-2022 take 1 tablet by mouth once daily Metoprolol Succinate 50 mg tablet extended release 24 hr Discontinued 50 mg PO DAILY 30 2 February 24, 2022 4:55pm March 24, 2022 4:06pm Start: 05-06-2021 End: 09-02-2021 take 1 tablet by mouth twice daily Metoprolol Tartrate 50 mg tablet Discontinued 50 mg PO TWICE A DAY May 06, 2021 6:12pm September 02, 2021 11:07am Start: 05-12-2018 End: 05-06-2021 take 1 tablet by mouth once daily Metoprolol Tartrate 50 mg tablet Discontinued 50 mg PO daily 90 3 April 08, 2021 9:09am May 06, 2021 6:14pm Start: 04-19-2018 End: 05-12-2018 take 1 tablet by mouth once daily Metoprolol Succinate 50 mg tablet extended release 24 hr Discontinued 50 mg PO daily April 19, 2018 12:00am May 12, 2018 12:35pm multivit with calcium,iron,min (WOMEN'S MULTIPLE VITAMINS ORAL) (4 sources) take 1 tablet by mouth once daily multivit with calcium,iron,min (WOMEN'S MULTIPLE VITAMINS ORAL) Take 1 tablet by mouth once daily. Active Woman's Multi with Soy, Lutein, Black Cohosh and Cranberry Active Multivitamin tablet (7 sources) Start: 12-11-2024 Multivitamin tablet Active 1 {tbl} PO EVERY MORNING December 11, 2024 12:00am triamterene/hydrochlorothiaz id (DYAZIDE ORAL) (4 sources) take 0.5 mg by mouth once daily triamterene/hydrochlorothia zid (DYAZIDE ORAL) Take 0.5 mg by mouth once daily. Active Completed/Discontinued Medications Medication Drug Class(es) Dates Sig (Normalized) Sig (Original) aluminum sulfate 8.42 mg/ml / calcium acetate 5.95 mg/ml topical solution (20 sources) Start: 05-06-2021 End: 07-18-2023 Calcium Acetate-Aluminum Sulf ([place]) 952-1,347 mg powder in packet Discontinued 1 NMA TOPICAL 1 to 3 times daily as needed for skin irritation May 06, 2021 12:00am July 18, 2023 9:20am Start: 05-06-2021 End: 07-18-2023 Calcium Acetate-Aluminum Sul f ([place]) 952-1,347 mg powder in packet Discontinued 1 APPLIC TOPICAL 1 to 3 times daily May 06, 2021 12:00am July 18, 2023 9:20am amoxicillin 500 mg oral tablet (5 sources) Penicillin-class Antibacterial Start: 02-06-2025 End: 02-27-2025 take 1 tablet by mouth three times daily Amoxicillin 500 mg tablet Discontinued 500 mg PO THREE TIMES A DAY 01 11February 06, 2025 12:00am February 27, 2025 10:33am cariprazine 3 mg oral capsule (11 sources) Atypical Antipsychotic Start: 12-05-2023 End: 12-27-2023 take 1 capsule by mouth once daily Cariprazine (Vraylar) 3 mg capsule Discontinued 3 mg PO DAILY December 05, 2023 1:00am December 27, 2023 9:28am ethinyl estradiol 0.03 mg / norethindrone acetate 1.5 mg oral tablet (20 sources) Estrogen Start: 04-19-2018 End: 08-11-2022 Norethindrone Ac-Eth Estradiol ( (21)) 1.5-30 mg-mcg tablet Discontinued 1 {tbl} PO daily 63 3 April 16, 2022 10:54am August 11, 2022 5:25pm FLUoxetine 40 mg oral capsule (20 sources) Serotonin Reuptake Inhibitor Start: 06-05-2019 End: 08-19-2020 take 1 capsule by mouth twice daily in the morning Fluoxetine 40 mg capsule Discontinued 0 .ROUTE .COMPLEX 180 July 15, 2020 8:21am August 19, 2020 10:16am TAKE 1 CAPSULE BY MOUTH TWICE A DAY ADMINISTER IN THE MORNING AND AT NOON/MIDDAY Start: 04-19-2018 End: 06-05-2019 take 1 capsule by mouth once daily in the morning Fluoxetine (Prozac) 40 mg capsule Discontinued 40 mg PO daily 180 1 May 22, 2018 7:02pm June 05, 2019 11:26am administer in the morning and at noon/midday Start: 01-26-2018 End: 04-19-2018 take 1 capsule by mouth twice daily in the morning Fluoxetine (Prozac) 40 mg capsule Discontinued 40 mg PO TWICE A DAY 180 January 26, 2018 12:00am April 19, 2018 2:03pm administer in the morning and at noon/midday levETIRAcetam 500 mg oral tablet (2 sources) Start: 03-09-2025 End: 04-09-2025 take 1 tablet by mouth twice daily levETIRAcetam (KEPPRA) 500 mg tablet Take 1 tablet by mouth two times a day for 12 days. 24 tablet 03/09/2025 04/09/2025 Discontinued levocetirizine dihydrochloride 5 mg oral tablet (20 sources) Histamine-1 Receptor Antagonist Start: 03-13-2021 End: 08-11-2022 take 1 tablet by mouth once daily as needed Levocetirizine 5 mg tablet Discontinued 5 mg PO DAILY as needed for allergy symptoms 30 0 March 13, 2021 12:00am August 11, 2022 5:10pm methylPREDNISolone 4 mg oral tablet (20 sources) Corticosteroid Start: 03-13-2021 End: 05-06-2021 take 1 tablet by mouth once Methylprednisolone (Medrol (Will)) 4 mg tablets,dose pack Discontinued 0 PO per package directions 21 April 22, 2021 10:35am May 06, 2021 6:12pm PO PER PKG DIR nystatin 100 unt/mg topical powder (20 sources) Polyene Antifungal Start: 03-10-2022 End: 02-27-2025 Nystatin 100,000 unit/gram powder Discontinued 1 NMA TOPICAL TWICE A DAY as needed for SKIN December 05, 2023 1:00am February 27, 2025 10:36am Start: 03-10-2022 End: 12-05-2023 Nystatin Active 1 APPLIC TOP ICAL TWICE A DAY December 05, 2023 1:00am Start: 03-13-2021 End: 05-06-2021 Nystatin 100,000 unit/gram p owder Discontinued 1 NMA TOPICAL THREE TIMES A DAY as needed for abdominal rash March 13, 2021 12:00am May 06, 2021 6:13pm Start: 03-13-2021 End: 05-06-2021 Nystatin Discontinued 1 APPL IC TOPICAL THREE TIMES A DAY March 13, 2021 12:00am May 06, 2021 6:13pm omeprazole 20 mg delayed release oral tablet (20 sources) Proton Pump Inhibitor Start: 08-19-2020 End: 03-22-2023 take 1 tablet by mouth twice daily Omeprazole Magnesium (Prilosec Otc) 20 mg tablet,delayed release (DR/EC) Discontinued 20 mg PO TWICE A DAY 180 May 22, 2021 7:42am March 22, 2023 9:42am take 1 capsule by mouth twice da sarah omeprazole (PRILOSEC) 20 mg capsule Take 20 mg by mouth two times a day. Active rosuvastatin calcium 10 mg oral tablet (20 sources) HMG-CoA Reductase Inhibitor Start: 12-23-2021 End: 02-27-2025 take 1 tablet by mouth once daily Rosuvastatin 10 mg tablet Discontinued 10 mg PO DAILY 90 January 23, 2024 5:03pm February 06, 2025 4:08pm Start: 01-26-2018 End: 12-23-2021 take 1 tablet by mouth once daily Rosuvastatin 5 mg tablet Discontinued 5 mg PO DAILY 90 3 2021 5:49pm December 01, 2021 10:07am triamcinolone acetonide 1 mg/ml topical cream (20 sources) Corticosteroid Start: 03-13-2021 End: 05-06-2021 Triamcinolone Acetonide 0.1 % cream Discontinued 1 NMA TOPICAL TWICE A DAY as needed for rash, itching 80 0 March 13, 2021 12:00am May 06, 2021 6:13pm valACYclovir 500 mg oral tablet (20 sources) Herpesvirus Nucleoside Analog DNA Polymerase Inhibitor, Herpes Simplex Virus Nucleoside Analog DNA Polymerase Inhibitor, Herpes Zoster Virus Nucleoside Analog DNA Polymerase Inhibitor Start: 01-26-2018 End: 01-29-2025 take 1 tablet by mouth once daily Valacyclovir 500 mg tablet Discontinued 500 mg PO DAILY 90 1 September 04, 2024 9:17am January 29, 2025 8:25am 24 hr venlafaxine 150 mg extended release oral capsule (20 sources) Serotonin and Norepinephrine Reuptake Inhibitor Start: 11-23-2024 End: 02-06-2025 take 1 capsule by mouth once daily Venlafaxine 150 mg capsule,extended release 24hr Discontinued 300 mg PO DAILY 60 2 November 23, 2024 4:31pm February 06, 2025 1:16pm Start: 08-21-2024 End: 11-23-2024 take 1 capsule by mouth once daily Venlafaxine 150 mg capsule,extended release 24hr Discontinued 300 mg PO DAILY 60 2 August 21, 2024 9:25am November 23, 2024 4:31pm Start: 08-19-2020 End: 08-21-2024 take 1 capsule by mouth once daily Venlafaxine (Effexor Xr) 150 mg capsule,extended release 24hr Discontinued 300 mg PO DAILY 60 2 May 18, 2024 4:59pm August 21, 2024 9:25am Problems Active Problems Problem Classification Problem Date Documented Da te Episodic/Chronic Acute and unspecified renal failure (4 sources) Acute renal failure syndrome; Translations: [Acute kidney failure, unspecified] Onset: 03-06-2025 03-06-2025 Episodic Allergic reactions (20 sources) Inflammatory dermatosis; Translations: [Dermatitis, unspecified] Episodic Anxiety disorders (20 sources) Panic attack; Translations: [Panic disorder [episodic paroxysmal anxiety]] Onset: 02-19-2025 11-01-2023 Chronic Cardiac dysrhythmias (20 sources) Cardiac arrhythmia; Translations: [Cardiac arrhythmia, unspecified] Chronic Chronic kidney disease (14 sources) Chronic renal failure; Translations: [Chronic kidney disease, unspecified] 06-12-2024 Chronic Chronic kidney disease (1 source) Chronic kidney disease; Translations: [Chronic kidney disease, stage 3a] Onset: 01-30-2025 Coagulation and hemorrhagic disorders (20 sources) Blood coagulation disorder; Translations: [Hemorrhagic condition, unspecified] 04-19-2018 Episodic Deficiency and other anemia (20 sources) Anemia; Translations: [Anemia, unspecified] 04-19-2018 Episodic Disorders of lipid metabolism (20 sources) Hyperlipidemia; Translations: [Hyperlipidemia, unspecified] Onset: 07-05-2017 Chronic Essential hypertension (20 sources) Hypertensive disorder; Translations: [Essential (primary) hypertension] Onset: 07-05-2017 Chronic Comment on above: CONTROLLED WITH MED Headache; including migraine (20 sources) Chronic headache disorder; Translations: [Chronic headache] 04-19-2018 Episodic Heart valve disorders (20 sources) Heart murmur; Translations: [Cardiac murmur, unspecified] 04-19-2018 Episodic Miscellaneous mental health disorders (20 sources) Emotional problems; Translations: [Mental disorder, not otherwise specified] Chronic Mood disorders (20 sources) Persistent mood [affective] disorder, unspecified; Translations: [Unspecified mental or behavioral problem] Onset: 02-19-2025 09-29-2023 Chronic Neoplasms of unspecified nature or uncertain behavior (20 sources) Gammopathy; 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 Chronic Comment on above: IgM, no monoclonal, reactive Nonmalignant breast conditions (20 sources) Breast lump; Translations: [Unspecified lump in unspecified breast] 04-19-2018 Episodic Other and unspecified benign neoplasm (14 sources) Intracranial meningioma; Translations: [Benign neoplasm of cerebral meninges] Onset: 04-09-2025 03-20-2025 Chronic Other and unspecified benign neoplasm (2 sources) Benign neoplasm of cerebral meninges; Translations: [Intracranial meningioma (HCC)] Onset: 04-09-2025 Chronic Other bone disease and musculoskeletal deformities (20 sources) Segmental and somatic dysfunction; Translations: [Segmental and somatic dysfunction of cervical region] 02-17-2021 Episodic Other connective tissue disease (20 sources) Foreign body; Translations: [Residual foreign body in soft tissue] 12-01-2021 Episodic Comment on above: Patient has an appar ent foreign body (old) from a piece of graphite in her left forearm. Other connective tissue disease (7 sources) Residual foreign body in soft tissue; Translations: [Residual foreign body in soft tissue] Episodic Other connective tissue disease (20 sources) Trigger thumb of left hand; Translations: [Trigger thumb, left thumb] 02-10-2023 Episodic Other connective tissue disease (16 sources) Trigger thumb, left thumb; Translations: [Trigger finger (acquired)] 02-10-2023 Episodic Other connective tissue disease (20 sources) Snapping thumb syndrome; Translations: [Trigger thumb, right thumb] 03-01-2023 Episodic Other connective tissue disease (18 sources) Trigger thumb, right thumb; Translations: [Trigger finger (acquired)] 03-01-2023 Episodic Other connective tissue disease (11 sources) Trigger thumb of right hand; Translations: [Trigger thumb, right thumb] 11-08-2023 Episodic Other connective tissue disease (1 source) Neuralgia; Translations: [Neuralgia and neuritis, unspecified] Onset: 02-04-2024 Episodic Other connective tissue disease (1 source) Synovitis and tenosynovitis; Translations: [Synovitis and tenosynovitis, unspecified] Onset: 02-04-2024 Episodic Other connective tissue disease (7 sources) Biceps tendinitis; Translations: [Bicipital tendinitis, right shoulder] 06-26-2024 Episodic Other endocrine disorders (20 sources) Polycystic ovary; Translations: [Polycystic ovarian syndrome] 04-19-2018 Chronic Other female genital disorders (20 sources) Abnormal uterine bleeding; Translations: [Other specified abnormal uterine and vaginal bleeding] 03-01-2019 Chronic Other gastrointestinal disorders (20 sources) Abdominal bloating; Translations: [Abdominal distension (gaseous)] 08-19-2020 Episodic Other gastrointestinal disorders (20 sources) Dysphagia; Translations: [Dysphagia, unspecified] 02-08-2023 Episodic Other gastrointestinal disorders (8 sources) Dysphagia, unspecified; Translations: [Dysphagia, unspecified] Onset: 03-05-2025 02-08-2023 Episodic Other hematologic conditions (20 sources) Lesion of spleen; Translations: [Other diseases of spleen] 05-16-2023 Episodic Other injuries and conditions due to external causes (1 source) Traumatic injury; Translations: [Injury, unspecified, initial encounter] 02-19-2025 Episodic Other liver diseases (20 sources) Alkaline phosphatase raised; Translations: [Abnormal levels of other serum enzymes] 03-22-2023 Episodic Other liver diseases (7 sources) Abnormal levels of other serum enzymes; Translations: [Other nonspecific abnormal serum enzyme levels] 03-22-2023 Episodic Other liver diseases (19 sources) Liver mass; Translations: [Hepatomegaly, not elsewhere classified] 04-06-2023 Episodic Other liver diseases (3 sources) Hepatomegaly, not elsewhere classified; Translations: [Other specified disorders of liver] 05-16-2023 Episodic Other nervous system disorders (14 sources) Mass lesion of brain; Translations: [Other specified disorders of brain] Onset: 03-01-2025 02-27-2025 Chronic Other nervous system disorders (2 sources) Other specified disorders of brain; Translations: [Other specified disorders of brain] Onset: 03-01-2025 Chronic Other nervous system disorders (1 source) Cerebral edema; Translations: [Cerebral edema] Onset: 04-02-2025 Chronic Other nervous system disorders (20 sources) Paresthesia of hand ; Translations: [Anesthesia of skin] 02-10-2023 Episodic Other nervous system disorders (7 sources) Anesthesia of skin; Translations: [Disturbance of skin sensation] 02-10-2023 Episodic Other nervous system disorders (1 source) Other acute postprocedural pain; Translations: [Acute post-operative pain] Onset: 03-01-2025 Episodic Other nutritional; endocrine; and metabolic disorders (20 sources) Obesity; Translations: [Obesity, unspecified] 05-06-2021 Chronic Other nutritional; endocrine; and metabolic disorders (4 sources) Obese class II; Translations: [Obesity, Class II, BMI 35-39.9] Onset: 03-06-2025 03-06-2025 Chronic Other upper respiratory disease (20 sources) Seasonal allergy; Translations: [Other seasonal allergic rhinitis] 04-19-2018 Chronic Other upper respiratory disease (20 sources) Change in voice; Translations: [Unspecified voice and resonance disorder] 02-08-2023 Episodic Other upper respiratory disease (7 sources) Unspecified voice and resonance disorder; Translations: [Other voice and resonance disorders] 02-08-2023 Episodic Tanya-; endo-; and myocarditis; cardiomyopathy (except that caused by tuberculosis or sexually transmitted disease) (20 sources) Heart valve disorder; Translations: [Endocarditis, valve unspecified] 04-19-2018 Chronic Residual codes; unclassified (10 sources) Amnesia; Translations: [Other amnesia] 02-27-2025 Episodic Spondylosis; intervertebral disc disorders; other back problems (20 sources) Back problem; Translations: [Dorsopathy, unspecified] 09-02-2021 Episodic Comment on above: The patient has no s ignificant back pain Thyroid disorders (20 sources) Multinodular goiter; Translations: [Nontoxic multinodular goiter] Onset: 01-22-2025 Chronic Comment on above: Patient is a 53-year -old female who is currently under surveillance for a history of multiple thyroid nodules. She presents in today's visit for history of recent thyroid ultrasound as well as to convey that she has appreciated some growth in her gland. Indeed this was confirmed with her ultrasound that showed an increase in the overall dimensions of her right thyroid lobe as well as the dominant nodule in the right thyroid lobe. I sridevi a schematic of her thyroid ultrasound to better facilitate a discussion around the current state of her thyroid nodularity. Moreover, I shared with Mrs. Patton that her nodule has increased in overall volume by 66% as confirmed when placing her dimensions from her ultrasound in 2022 versus her 2023 dimensions into the NICOLE change in volume calculator. It is apparent that she has some mild compressive symptoms which she describes as pressure and some intermittent swallowing difficulty. It is encouraging that her thyroid nodule has been downgraded from a TI-RADS 4 to a TI-RADS 3 rating since its last check. I shared with Mrs. Patton that we could consider repeat biopsy if we were inclined to pursue right thyroid lobectomy, however, given her difficulty around biopsy previously in the result unequivocally returning Sieper 2 this proposition should not be taken lightly. After some debate, Mrs. Patton elected to proceed with ongoing surveillance. I did request updated thyroid function studies prior to simply awaiting a repeat ultrasound in 1 year. Mrs. Patton was receptive to this recommendation and will proceed to the lab following this appointment. Patient is a 53-year -old female who is currently under surveillance for a history of multiple thyroid nodules. She presents in today's visit for history of recent thyroid ultrasound as well as to convey that she has appreciated some growth in her gland. Indeed this was confirmed with her ultrasound that showed an increase in the overall dimensions of her right thyroid lobe as well as the dominant nodule in the right thyroid lobe. I sridevi a schematic of her thyroid ultrasound to better facilitate a discussion around the current state of her thyroid nodularity. Moreover, I shared with Mrs. Patton that her nodule has increased in overall volume by 66% as confirmed when placing her dimensions from her ultrasound in 2022 versus her 2023 dimensions into the NICOLE change in volume calculator. It is apparent that she has some mild compressive symptoms which she describes as pressure and some intermittent swallowing difficulty. It is encouraging that her thyroid nodule has been downgraded from a TI-RADS 4 to a TI-RADS 3 rating since its last check. I shared with Mrs. Patton that we could consider repeat biopsy if we were inclined to pursue right thyroid lobectomy, however, given her difficulty around biopsy previously in the result unequivocally returning Sieper 2 this proposition should not be taken lightly. After some debate, Mrs. Patton elected to proceed with ongoing surveillance. I did request updated thyroid function studies prior to simply awaiting a repeat ultrasound in 1 year. Mrs. Patton was receptive to this recommendation and will proceed to the lab following this appointment.Update 01/11/2025: Patient is now a 54-year-old female who makes a surveillance visit related to her thyroid nodularity. While I do confirm her concerns that her thyroid nodule on the right has grown since her last visit, I remain suspicious about this growth contributing to her new swallowing difficulty. This is especially true given her history with requiring esophageal dilation, independently. The reason for the skepticism is that her thyroid lobe remains stable in size. As far as her thyroid nodule is concerned when I apply her dimensions to the NICOLE change in volume calculator the nodule exhibits a increase of 79%. I shared my skepticism know about this right-sided nodule causing left-sided compression of her esophagus and suggested that she proceed in a least a most invasive approach with the workup of this issue. This would include repeating her EGD to determine if she indeed requires esophageal dilation. If she goes through with this procedure and still remains symptomatic then I would recommend completing CT imaging which will give us a better spatial appreciation for her thyroid nodule to the surrounding anatomy (including esophagus). If visual evidence of compression is noted then I would recommend repeating patient's thyroid nodule biopsy in anticipation of the probable right thyroid lobectomy. Patient was receptive of this approach Unclassified (20 sources) blood transfusion 04-19-2018 Past or Other Problems Problem Classification Problem Date Documented Da te Episodic/Chronic Deficiency and other anemia (5 sources) Anemia, unspecified; Translations: [Anemia, unspecified] Onset: 06-12-2024 12-13-2023 Episodic Mood disorders (1 source) Mood disorders Onset: 02-19-2025 02-19-2025 Other hematologic conditions (12 sources) Other diseases of spleen; Translations: [Disease of spleen, unspecified] Onset: 12-04-2024 05-16-2023 Episodic Other screening for suspected conditions (not mental disorders or infectious disease) (2 sources) Encounter for screening mammogram for malignant neoplasm of breast; Translations: [Encounter for screening for malignant neoplasm of cervix] Onset: 08-20-2024 Episodic Results Test Name Value Interpretation Reference Range Facility [facility] 05-07-2025 CNOV Office Visit (NEAGCL M) -- SIERRA PATTON ([id number]) 1970 F Date Time Provider Department 05/07/25 9:30 AM FABRIZIO AMBROCIO NEAGCLM During your visit today, we recorded the following information about you: Pulse Respiration Blood pressure Weight 85/minute 16/minute 111/75 94.7 kg Height 1.575 m Fabrizio Ambrocio MD 05/08/2025 8:12 AM Addendum NEUROSURGERY POST OP NOTE Dr. Fabrizio Ambrocio MD, FACS Date of visit: May 07, 2025 Patient Name: Ms.Connie Cira Patton Date of : 1970 Current Age: [age] year old MRN/E# [id number] Last Office Visit: 04/09/2025 CHIEF COMPLAINT: Patient presents with: Established Patient: C/o completely losing sense of smell, but occasionally smelling formaldehyde or acetone, blurred vision, difficulty adjusting from darkness to light, eye drainage, feeling air bubbles between her skin and her skull, L ankle swelling, huge crater in front of R ear SURGERY: Right frontal craniotomy for tumor excision on 03/06/[address] Ambrocio and Dr. Cobos. FINAL DIAGNOSIS A and B. Brain tumor, resection: - Meningioma, transitional type, WHO Grade 1. See comment. Comments: AMENDED REPORT DETAIL Amended: 03/14/2025 8:13 AM This report is being amended to reflect a change in the diagnostic field. The original report did not include both parts A and B, which has been corrected. There is no change to the actual diagnosis. Dr. Ambrocio was notified of this change by StartX message on 03/14/2025. PRE-SURGICAL SYMPTOMS: Cognitive difficulty, blurry vision, mood swings, frontal headache, decreased sense of smell INCISION: Healed HISTORY OF PRESENT ILLNESS : The patient presents for a 8-week post operative visit with imaging (MRI B) for evaluation. This is a 54-year-old female with a PMHx of thyroid disease, obesity, anxiety who was seen for consult at [facility] on 03/01/2025. She reported that she saw her PCP for neck swelling and CT thyroid was obtained. Once completed this showed a brain mass and she was advised to present to the ED. She then endorsed a 6-month history of difficulty with cognition, blurry vision, decreased sense of smell and frontal headaches. Further workup was conducted including MRI brain which confirmed an intracranial mass suspected to be a meningioma in the subfrontal area. Recommendation was to undergo surgical resection. She and her family agreed and this was completed as noted above. She did well following surgery and was cleared for discharge home. She was seen in the office on 03/22/2025 for a routine postop evaluation and suture removal. She reported that she was doing well. She denied any significant headache, visual changes, speech deficits, seizure activity, motor or sensory deficits. She felt that her sense of smell and hearing was heightened since surgery. Incision was healing well and sutures were removed without any issue. There are no signs and symptoms of infection noted. Recommendation was to follow up in 2 weeks for a routine post op evaluation. She was last seen in the office on 04/09/2025 and continued to report that she was doing well. She reported that she noticed that she was writing her numbers backwards at times but caught herself and was able to correct it. She had mild tenderness to the incision site. Otherwise she denied any other concerns. Incision site was well-healed. She denied any issues with her sense of smell. Recommendation was to follow-up in 1 month with an MRI of the brain prompting her visit today. Since last visit she states she has developed difficulty with the right eye. She will get vision changes intermittently. She has lost her sense of smell. She concerned that she has a divot on the side of her head by the incision and 2 in the back of her head. She feels her left leg is not working as strong as it was prior to surgery. She is also concerned about her weight. She presents for image review, evaluation and plan of care. 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 No pertinent family history. ALLERGIES Allergen Reactions Erythromycin Itching, Swelling Sulfa (Sulfonamide * Hives Genta-Gel Swelling Current Outpatient Medications Medication Sig Dispense Refill Echinacea 400 mg cap Take 400 mg by mouth once daily. ASCORBIC ACID-BIOFLAVONOIDS ORAL Take 100 mg by mouth once daily. C-100 with 10 (more content not included)... Normal [facility] MR Brain WO and W contrast I Von 04-30-2025 IMPRESSION: Postoperative changes as above with minimal linear enhancement at the operative site which is most likely postoperative in nature although follow-up is recommended.. Compressor Station Operator: LG Transcribe Date/Time: Apr 30 2025 2:42P Dictated by : WALESKA BAZZI MD This examination was interpreted and the report reviewed and electronically signed by: WALESKA BAZZI MD on Apr 30 2025 2:47PM [facility] DIVISION OF RADIOLOGY * * *Final Report* * * DATE OF EXAM: Apr 30 2025 2:08PM [facility] 0295 - MRI BRAIN WO/W IVCON / PROCEDURE REASON: Intracranial meningioma (HCC) * * * * Physician Interpretation * * * * EXAMINATION: MRI BRAIN WO/W IVCON CLINICAL HISTORY: Meningioma. TECHNIQUE: Routine brain MRI protocol without and with contrast including diffusion images. MQ: MRBWOW_2 Contrast: 9 mL Elucirem IV COMPARISON: MRI brain performed 03/02/2025. RESULT: Acute Change: There is no evidence of restricted diffusion to suggest an acute infarct. Hemorrhage: Detailed below. Mass Lesion/ Mass Effect: RIGHT pterional craniotomy. Underlying mild dural enhancement as well as linear foci of magnetic susceptibility representing remote blood degradation byproducts, some subarachnoid in location. There is encephalomalacia along the midline anterior cranial fossa with minimal dural enhancement, postoperative in nature. No additional areas of abnormal enhancement are present. Chronic Change: The white matter is within normal limits of signal intensity for age. Parenchyma: No significant volume loss for age. The brain parenchyma is otherwise within normal limits of signal intensity and morphology. Ventricles: Normal caliber and morphology. Skull Base: Hypothalamic and pituitary region are grossly normal. Craniocervical junction is normal. No significant marrow replacement process. Vasculature: Major intracranial arterial structures, and dural venous sinuses show typical flow void, suggesting patency by spin echo criteria. Other: Minimal retained fluid mastoid air cells. Minimal mucosal thickening present within the imaged paranasal sinuses. DIVISION OF RADIOLOGY Provider, [facility] - 04/30/2025 * * *Final Report* * * DATE OF EXAM: Apr 30 2025 2:08PM [facility] 0295 - MRI BRAIN WO/W IVCON / PROCEDURE REASON: Intracranial meningioma (HCC) * * * * Physician Interpretation * * * * EXAMINATION: MRI BRAIN WO/W IVCON CLINICAL HISTORY: Meningioma. TECHNIQUE: Routine brain MRI protocol without and with contrast including diffusion images. MQ: MRBWOW_2 Contrast: 9 mL Elucirem IV COMPARISON: MRI brain performed 03/02/2025. RESULT: Acute Change: There is no evidence of restricted diffusion to suggest an acute infarct. Hemorrhage: Detailed below. Mass Lesion/ Mass Effect: RIGHT pterional craniotomy. Underlying mild dural enhancement as well as linear foci of magnetic susceptibility representing remote blood degradation byproducts, some subarachnoid in location. There is encephalomalacia along the midline anterior cranial fossa with minimal dural enhancement, postoperative in nature. No additional areas of abnormal enhancement are present. Chronic Change: The white matter is within normal limits of signal intensity for age. Parenchyma: No significant volume loss for age. The brain parenchyma is otherwise within normal limits of signal intensity and morphology. Ventricles: Normal caliber and morphology. Skull Base: Hypothalamic and pituitary region are grossly normal. Craniocervical junction is normal. No significant marrow replacement process. Vasculature: Major intracranial arterial structures, and dural venous sinuses show typical flow void, suggesting patency by spin echo criteria. Other: Minimal retained fluid mastoid air cells. Minimal mucosal thickening present within the imaged paranasal sinuses. IMPRESSION IMPRESSION: Postoperative changes as above with minimal linear enhancement at the operative site which is most likely postoperative in nature although follow-up is recommended.. Compressor Station Operator: LG Transcribe Date/Time: Apr 30 2025 2:42P Dictated by : WALESKA BAZZI MD This examination was interpreted and the report reviewed and electronically signed by: WALESKA BAZZI MD on Apr 30 2025 2:47PM [facility] Radiology Study observation (narrative) [facility] MR Brain WO and W contrast I VOrdered By: [facility] Provider on 04-30-2025 [facility] MRI BRAIN WO/W IVCONon 04-30 MRI BRAIN WO/W IVCON * * *Final Report* * * DATE OF EXAM: Apr 30 2025 2:08PM [facility] 0295 - MRI BRAIN WO/W IVCON / PROCEDURE REASON: Intracranial meningioma (HCC) * * * * Physician Interpretation * * * * EXAMINATION: MRI BRAIN WO/W IVCON CLINICAL HISTORY: Meningioma. TECHNIQUE: Routine brain MRI protocol without and with contrast including diffusion images. MQ: MRBWOW_2 Contrast: 9 mL Elucirem IV COMPARISON: MRI brain performed 03/02/2025. RESULT: Acute Change: There is no evidence of restricted diffusion to suggest an acute infarct. Hemorrhage: Detailed below. Mass Lesion/ Mass Effect: RIGHT pterional craniotomy. Underlying mild dural enhancement as well as linear foci of magnetic susceptibility representing remote blood degradation byproducts, some subarachnoid in location. There is encephalomalacia along the midline anterior cranial fossa with minimal dural enhancement, postoperative in nature. No additional areas of abnormal enhancement are present. Chronic Change: The white matter is within normal limits of signal intensity for age. Parenchyma: No significant volume loss for age. The brain parenchyma is otherwise within normal limits of signal intensity and morphology. Ventricles: Normal caliber and morphology. Skull Base: Hypothalamic and pituitary region are grossly normal. Craniocervical junction is normal. No significant marrow replacement process. Vasculature: Major intracranial arterial structures, and dural venous sinuses show typical flow void, suggesting patency by spin echo criteria. Other: Minimal retained fluid mastoid air cells. Minimal mucosal thickening present within the imaged paranasal sinuses. IMPRESSION: Postoperative changes as above with minimal linear enhancement at the operative site which is most likely postoperative in nature although follow-up is recommended.. Compressor Station Operator: LG Transcribe Date/Time: Apr 30 2025 2:42P Dictated by : WALESKA BAZZI MD This examination was interpreted and the report reviewed and electronically signed by: WALESKA BAZZI MD on Apr 30 2025 2:47PM EST [id number] Normal [facility] CNOVon 04-09-2025 CNOV Office Visit (NEAGCL M) -- SIERRA PATTON ([id number]) 1970 F Date Time Provider Department 04/09/25 10:00 AM FABRIZIO AMBROCIO NEAGCLM During your visit today, we recorded the following information about you: Pulse Blood pressure Weight Height 68/minute 104/54 91.1 kg 1.575 m Fabrizio Ambrocio MD 04/09/2025 10:19 AM Signed NEUROSURGERY POST OP NOTE Dr. Fabrizio Ambrocio MD, FACS Date of visit: April 09, 2025 Patient Name: Ms.Connie Cira Patton Date of : 1970 Current Age: [age] year old MRN/E# [id number] Last Office Visit: 03/22/2025 CHIEF COMPLAINT: Patient presents with: Post Op SURGERY: Right frontal craniotomy for tumor excision on 03/06/[address] Ambrocio and Dr. Cobos. FINAL DIAGNOSIS A and B. Brain tumor, resection: - Meningioma, transitional type, WHO Grade 1. See comment. Comments: AMENDED REPORT DETAIL Amended: 03/14/2025 8:13 AM This report is being amended to reflect a change in the diagnostic field. The original report did not include both parts A and B, which has been corrected. There is no change to the actual diagnosis. Dr. Ambrocio was notified of this change by StartX message on 03/14/2025. PRE-SURGICAL SYMPTOMS: Cognitive difficulty, blurry vision, mood swings, frontal headache, decree sense of smell INCISION: Healing - without signs or symptoms of infection. Small piece of suture under the skin- no infection or opening. HISTORY OF PRESENT ILLNESS : The patient presents for a 1 month post operative visit.. This is a 54-year-old female with a PMHx of thyroid disease, obesity, anxiety who was seen at [facility] for consult on 03/01/2025. Patient stated that she was having neck swelling so she saw her provider who ordered a CT thyroid. Once completed this showed a brain mass and she was advised to present to the ED. She reported a 6-month history of difficulty with cognition, blurry vision, decreased sense of smell and frontal headaches. Further workup was obtained with MRI brain. Once completed this confirmed an intracranial mass suspected to be a meningioma in the subfrontal area. Recommendation was to undergo surgical resection. She and her family agreed and this was completed as noted above. She did well following surgery and was cleared for discharge home with a short course of Keppra and a Decadron taper. Recommendation was to follow-up in 2 weeks for a routine postop evaluation and suture removal. She was last seen in the office on 03/22/2025 and reported that she was doing well since discharge. She denied any significant headache, visual changes, speech deficits, seizure activity, motor or sensory deficits. She felt that her sense of smell and hearing was heightened since surgery. Recommendation was to follow up in 2 weeks for a routine post op evaluation, prompting her visit today. Since last visit she states she is overall doing well. She reports writing her numbers backwards at times but she catches herself. She has mild tenderness to the incision site. Otherwise she denies any other concerns. She presents for evaluation and plan of care. 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 No pertinent family history. ALLERGIES Allergen Reactions Erythromycin Itching, Swelling Sulfa (Sulfonamide * Hives Genta-Gel Swelling Current Outpatient Medications Medication Sig Dispense Refill Echinacea 400 mg cap Take 400 mg by mouth once daily. ASCORBIC ACID-BIOFLAVONOIDS ORAL Take 100 mg by mouth once daily. C-100 with 10 mg Bioflavonoids 2 pill qday multivit with calcium,iron,min (WOMEN'S MULTIPLE VITAMINS ORAL) Take 1 tablet by mouth once daily. Active Woman's Multi with Soy, Lutein, Black Cohosh and Cranberry escitalopram oxalate (LEXAPRO) 20 mg tablet Take 20 mg by mouth once daily. triamterene/hydrochlorothi azid (DYAZIDE ORAL) Take 0.5 mg by mouth once daily. metoprolol succinate ER (TOPROL XL) 50 mg 24 hr tablet Take 50 mg by mouth two times a day. omeprazole (PRILOSEC) 20 mg capsule Take 20 mg by mouth two times a day. brexpiprazole (REXULTI) 2 mg tablet Take 2 mg by mouth once daily. clonazePAM (KLONOPIN) 2 mg tablet Take 1 mg by mouth at bedtime as needed for anxiety. Take 1 to 2 mg rosuvastatin (CRESTOR) 10 mg tablet Take 10 mg by mouth daily at bedtime. valACYclovir (VALTREX) 500 mg tablet Take 500 mg by mouth once daily. iv contrast ( (more content not included)... Normal [facility] Internal Medicine Office Vis concepcion 04-02-2025 Internal Medicine Office Visit [facility] [address] [place], [place] [address] OFFICE VISIT Date of Service: 04/02/25 MR#: [id number] Acct: [id number] Name: SIERRA PATTON Rep #: [id number] : 1970 Provider: Dr. 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 Accompanied by: Self Is patient in pain?: No Allergies clindamycin Allergy (Severe, Verified 04/02/25 09:18) burning watery eyes Sulfa (Sulfonamide Antibiotics) Allergy (Severe, Verified 04/02/25 09:18) Hives erythromycin base Allergy (Verified 04/02/25 09:18) eye redness, watering, swelling Medications ???Medication ???Instructions ???Recorded ???Confirmed ???Type omeprazole magnesium 20 mg 20 mg PO BID #180 tabs 03/22/23 Rx tablet,delayed release (Prilosec OTC) clobetasol 0.05 % topical ointment 1 applic topical DAILY PRN skin 12/05/23 04/02/25 History irritation metoprolol succinate 50 mg 50 mg PO BID #120 TABLETS 11/21/24 04/02/25 Rx tablet,extended release 24 hr multivitamin 1 tab PO QAM 12/11/24 04/02/25 His tory valacyclovir 500 mg tablet 500 mg PO DAILY #30 TABLETS 04/02/25 Rx brexpiprazole 2 mg tablet (Rexulti) 2 mg PO DAILY 02/27/25 04/02/25 History echinacea 400 mg capsule 400 mg PO DAILY 02/27/25 04/02/25 History escitalopram oxalate 20 mg tablet 20 mg PO DAILY 02/27/25 04/02/25 History (Lexapro) rosuvastatin 10 mg tablet 10 mg PO QHS 02/27/25 04/02/25 His tory clonazepam 1 mg tablet (Klonopin) 1 - 2 mg (1 - 2 x 1 mg) PO QHS #6 0 03/29/25 04/02/25 Rx tabs triamterene 37.5 1 tab PO QAM #90 tabs 04/02/2510/27 Rx mg-hydrochlorothiazide 25 mg tablet Nurse's Note: Depression better headache d/t brain sgy PFSH Medical History Alcohol abuse Kidney disease GERD (gastroesophageal reflux disease) Irregular heart beat Atrial fibrillation Myocardial infarct Chest pain DVT (deep venous thrombosis) Chronic renal failure Trigger thumb Wears glasses Cancer Depression Anxiety Alcohol use Thyroid disease Easy bruising High cholesterol Restless legs Migraine headache Vertigo History of ulceration Gastric reflux Former smoker History of edema Normal Holter exam History of echocardiogram Trigger thumb of right hand Gammopathy Lesion of spleen Obesity Dermatitis Heart valve problem Polycystic ovaries Heart murmur Hyperlipidemia Hypertension Chronic headaches Emotional disorder Breast lump blood transfusion Bleeding disorder Back problem Anemia Seasonal allergies Surgical History H/O thumb surgery History of loop electrical excision procedure (LEEP) History of bone marrow biopsy History of D C liposuction to chin History of tonsillectomy and adenoidectomy History of tubal ligation Family History Father Alcohol abuse Anemia Anxiety Arthritis Depression Mental disorder Suicide attempt Heart disease Hypertension High cholesterol Mother Anemia Anxiety Arthritis Depression Hypertension High cholesterol Mental disorder Diabetes Grandmother Bleeding disorder Aunt Breast cancer Myocardial infarction Grandfather Myocardial infarction Grandmother CVA (cerebral vascular accident) Social History current occupational status: employed current occupation: [employer] Smoking Status: Unknown if ever smoked alcohol intake: current alcohol intake frequency: a few times a month Alcohol type: wine substance use type: does not use caffeine: Yes what type of physical activity do you participate in: walking and other details: rowing frequency: 1-2 times per week HPI HPI Chief Complaint: fu Details: SIERRA PATTON, is a 54 F who presents to the office today for for a follow-up after having a 4 cm meningioma removed from her frontal lobe at [facility]. This was an incidental unexpected finding when she was having a workup for thyroid nodules. She has recovered remarkably quickly although still has some changes in her handwriting and intermammary but all in all she looks much more alert and optimistic than when I had last seen her. MALOU Tay Constitutional: (more content not included)... Normal [facility] CNCOon 03-22-2025 CNCO Letter Text Normal [facility] CNOVon 03-22-2025 CNOV Office Visit (NEAGCL M) -- SIERRA PATTON ([id number]) 1970 F Date Time Provider Department 03/22/25 10:00 AM FABRIZIO AMBROCIO NEAGCLM During your visit today, we recorded the following information about you: Pulse Respiration Blood pressure Weight 108/minute 16/minute 106/75 92.1 kg Height 1.575 m Fabrizio Ambrocio MD 03/22/2025 10:21 AM Signed NEUROSURGERY POST OP NOTE Dr. Fabrizio Ambrocio MD, [facility] Date of visit: March 22, 2025 Patient Name: Ms.Connie Cira Patton Date of : 1970 Current Age: [age] year old MRN/E# [id number] Last Office Visit: Postop CHIEF COMPLAINT: Patient presents with: Established Patient SURGERY: Right frontal craniotomy for tumor excision on 03/06/[address] Ambrocio and Dr. Cobos. AMENDED REPORT DETAIL Amended: 03/14/2025 8:13 AM This report is being amended to reflect a change in the diagnostic field. The original report did not include both parts A and B, which has been corrected. There is no change to the actual diagnosis. Dr. Ambrocio was notified of this change by [employer] message on 03/14/2025. 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 No S/S of infection noted. Slight subgaleal fluid noted. Sutures removed without an issue. HISTORY OF PRESENT ILLNESS : The patient presents for a post operative visit. This is a 54-year-old female with a PMHx of thyroid disease, obesity, anxiety who was seen at [facility] for consult on 03/01/2025. Patient stated that she was having neck swelling so she saw her provider who ordered a CT thyroid. Once completed this showed a brain mass and she was advised to present to the ED. She reported a 6-month history of difficulty with cognition, blurry vision, decreased sense of smell and frontal headaches. Further workup was obtained with MRI brain. Once completed this confirmed an intracranial mass suspected to be a meningioma in the subfrontal area. Recommendation was to undergo surgical resection. She and her family agreed and this was completed as noted above. She did well following surgery and was cleared for discharge home with a short course of Keppra and a Decadron taper. Recommendation was to follow-up in 2 weeks for a routine postop evaluation and suture removal prompting her visit today. Since discharge she states she is overall doing well. She denies significant headache, visual changes, speech deficits, seizure activity, motor or sensory deficits. Feels her sense of smell and hearing is heightened since surgery. She presents for evaluation and plan of care. 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 No pertinent family history. ALLERGIES Allergen Reactions Erythromycin Itching, Swelling Sulfa (Sulfonamide * Hives Genta-Gel Swelling Current Outpatient Medications Medication Sig Dispense Refill levETIRAcetam (KEPPRA) 500 mg tablet Take 1 tablet by mouth two times a day for 12 days. 24 tablet 0 Echinacea 400 mg cap Take 400 mg by mouth once daily. ASCORBIC ACID-BIOFLAVONOIDS ORAL Take 100 mg by mouth once daily. C-100 with 10 mg Bioflavonoids 2 pill qday multivit with calcium,iron,min (WOMEN'S MULTIPLE VITAMINS ORAL) Take 1 tablet by mouth once daily. Active Woman's Multi with Soy, Lutein, Black Cohosh and Cranberry escitalopram oxalate (LEXAPRO) 20 mg tablet Take 20 mg by mouth once daily. triamterene/hydrochlorothi azid (DYAZIDE ORAL) Take 0.5 mg by mouth once daily. metoprolol succinate ER (TOPROL XL) 50 mg 24 hr tablet Take 50 mg by mouth two times a day. omeprazole (PRILOSEC) 20 mg capsule Take 20 mg by mouth two times a day. brexpiprazole (REXULTI) 2 mg tablet Take 2 mg by mouth once daily. clonazePAM (KLONOPIN) 2 mg tablet Take 1 mg by mouth at bedtime as needed for anxiety. Take 1 to 2 mg rosuvastatin (CRESTOR) 10 mg tablet Take 10 mg by mouth daily at bedtime. valACYclovir (VALTREX) 500 mg tablet Take 500 mg by mouth once daily. No current facility-administered medications for this visit. Review of Systems Constitutional: Negative for chills, diaphoresis (Negative for night sweats.) and fever. HENT: Negative for ear discharge and rhinorrhea. Eyes: Negative for discharge. Respiratory: Negative for cough, shortness of breath and wheezing. Cardiovascular: Negative for chest pain, palpitations and leg swelling. Gastrointestinal (more content not included)... [facility] HNO ID: [id number] Author: FABRIZIO AMBROCIO MD Service: Neurosurgery Author Type: Nurse Practitioner Type: Discharge Summary Filed: 03/11/2025 13:59 Note Text: -- Attestation signed by Fabrizio Ambrocio MD at 03/11/2025 1:59 PM I agree with the Discharge Summary and Follow Up Care as written by Aliya Reza. -- DISCHARGE SUMMARY PATIENT NAME: Sierra Patton Code Status: Not on file ADMISSION DATE: 03/01/2025 DISCHARGE DATE: March 09, 2025 Highest Readmission Risk Score: 6 The 30 day readmissions risk score is derived from an internally validated risk model which evaluates patient level characteristics, utilization history, medication orders and lab results up until the day of discharge. Patients with a score of 40 or above are considered highest risk for readmission. Specific patient level drivers will be listed at the bottom of the summary. REASON FOR HOSPITALIZATION: elective cranial surgery DIAGNOSIS: Principal Problem: Brain mass (POA: Yes) Active Problems: Hypertension, essential (POA: Yes) Hyperlipidemia, mixed (POA: Yes) Obesity, Class II, BMI 35-39.9 (POA: Yes) CLAUDETTE (acute kidney injury) (POA: Yes) Resolved Problems: * No resolved hospital problems. * HOSPITAL COURSE: you had surgery as planned without complication. You were then taken to recovery and ultimately to 9100 for excellent nursing care, pain control and therapy. You did very well with your recovery and on day 3 you were ambulating with therapy, voiding without issue and tolerating your diet. Your pain was well controlled and you were found to be stable for discharge home. CONSULTING TEAMS DURING HOSPITALIZATION: Hospital medicine PATIENT CONDITION AT DISCHARGE: Stable DISCHARGE DISPOSITION: Home with Relative INFORMATION PROVIDED TO PATIENT: see D/C instructions ALLERGIES No Known Allergies DISCHARGE MEDICATION: Medication List START taking these medications dexAMETHasone 1 mg tablet Commonly known as: DECADRON Take 2 tablets by mouth two times a day with meals for 2 days, THEN 1 tablet two times a day with meals for 2 days, THEN 1 tablet daily with breakfast for 2 days. Start taking on: March 08, 2025 levETIRAcetam 500 mg tablet Commonly known as: KEPPRA Take 1 tablet by mouth two times a day for 12 days. oxyCODONE IR 5 mg immediate release tablet Commonly known as: ROXICODONE Take 1 tablet by mouth every 6 hours as needed (for acute post operative pain) for up to 3 days. CHANGE how you take these medications CRESTOR 10 mg tablet Generic drug: rosuvastatin What changed: Another medication with the same name was removed. Continue taking this medication, and follow the directions you see here. CONTINUE taking these medications ASCORBIC ACID-BIOFLAVONOIDS ORAL DYAZIDE ORAL Echinacea 400 mg Cap escitalopram oxalate 20 mg tablet Commonly known as: LEXAPRO KlonoPIN 2 mg tablet Generic drug: clonazePAM omeprazole 20 mg capsule Commonly known as: PriLOSEC REXULTI 2 mg tablet Generic drug: brexpiprazole TOPROL XL 50 mg 24 hr tablet Generic drug: metoprolol succinate ER valACYclovir 500 mg tablet Commonly known as: VALTREX WOMEN'S MULTIPLE VITAMINS ORAL STOP taking these medications buPROPion XL 300 mg 24 hr tablet Commonly known as: WELLBUTRIN XL metoprolol tartrate (short acting) 50 mg tablet Commonly known as: LOPRESSOR Norethindrone Acet-Ethinyl Est 1.5-30 mg-mcg PROzac 20 mg capsule Generic drug: FLUoxetine Where to Get Your Medications These medications were sent to e- [facility]/pharmacy #[id number] [place] [address] - [address] [place] [address] - [phone] [place] [id number] dexAMETHasone 1 mg tablet levETIRAcetam 500 mg tablet oxyCODONE IR 5 mg immediate release tablet I evaluated the patient, and have reviewed their diagnosis and clinical course. They were evaluated for non-narcotic pain medications as the sole course of therapy, and were not a candidate. I find the opiate prescribed upon discharge, although greater than a 30 morphine equivalent dose and/or greater than a one week duration, is an appropriate dose for this patient. FUTURE APPOINTMENTS: Future Appointments Date Time Provider Department Center 03/22/2025 10:00 AM Fabrizio Ambrocio MD [facility]AG[facility]as Follow Up Appointments Follow-up Appointment Appointment requested, office will contact you When: In 2 weeks Fabrizio Ambrocio MD [phone] [place] [facility] [address] PCP Requested Referral I have performed the [id number] and relevant services for a total of >30 minutes. SIGNATURE: Aliya Reza APRN.HISTOLOGY TEACHER PAGER/CONTACT #: [phone] DATE: March 09, 2025 TIME: 8:57 AM [facility] CONSULT PROGon 03-08-2025 CONSULT PROG HNO ID: [id number] Author: NATTY PATEL MD Service: Hospital Medicine Author Type: Physician Type: Consult Progress Note Filed: 03/08/2025 13:21 Note Text: DEPARTMENT OF HOSPITAL MEDICINE PROGRESS NOTE SERVICE DATE: 03/08/2025 SERVICE TIME: 12:25 PM Hospital Medicine/Primary Attending: Natty Patel MD NIGHT AND WEEKEND COVERAGE: After 7pm please page [phone] MEDICATIONS: Current Facility-Administered Medications Medication Dose Route Frequency brexpiprazole 2 mg tab(s) (REXULTI) 2 mg ORAL DAILY escitalopram oxalate 20 mg tab(s) (LEXAPRO) 20 mg ORAL DAILY metoprolol succinate ER 50 mg tab(s) (TOPROL XL) 50 mg ORAL BID rosuvastatin 10 mg tab(s) (CRESTOR) 10 mg ORAL AT BEDTIME NaCl 0.9% iv flush bag 20 mL INTRAVENOUS PRN pantoprazole DR 20 mg tab(s) (PROTONIX) 20 mg ORAL BID AC (0600/1600) levETIRAcetam 500 mg tab(s) (KEPPRA) 500 mg ORAL BID nicotine 14 mg/24 hr 1 patch (NICODERM) 1 patch TRANSDERMAL DAILY And nicotine -- REMOVE patch OTHER DAILY And nicotine - verify patch OTHER q 8 H clonazePAM 1 mg tab(s) (KlonoPIN) 1 mg ORAL q 12 H PRN ondansetron 4 mg tab(s) (ZOFRAN) 4 mg ORAL q 6 H PRN Or ondansetron (PF) 4 mg injection (ZOFRAN) 4 mg INTRAVENOUS q 6 H PRN bisacodyl 10 mg suppository (DULCOLAX) 10 mg RECTAL DAILY PRN hydrALAZINE 10 mg injection (APRESOLINE) 10 mg INTRAVENOUS q 6 H PRN senna-docusate 8.6-50 mg 1 tablet (SENNA-S) 1 tablet ORAL BID heparin 5,000 Units injection 5,000 Units SUBCUTANEOUS q 8 H dexAMETHasone 2 mg tab(s) (DECADRON) 2 mg ORAL BID w MEALS Followed by [START ON 03/10/2025] dexAMETHasone 1 mg tab(s) (DECADRON) 1 mg ORAL BID w MEALS Followed by [START ON 03/12/2025] dexAMETHasone 1 mg tab(s) (DECADRON) 1 mg ORAL DAILY WITH BREAKFAST oxyCODONE IR 5-10 mg tab(s) (ROXICODONE) 5-10 mg ORAL q 4 H PRN polyethylene glycol 3350 17 g packet 17 g ORAL DAILY PRN traZODone 50 mg tab(s) (DESYREL) 50 mg ORAL AT BEDTIME acetaminophen 1,000 mg tab(s) (TYLENOL) 1,000 mg ORAL q 6 H cyclobenzaprine 10 mg tab(s) (FLEXERIL) 10 mg ORAL TID PRN DATA: Diagnostic tests reviewed for today's visit: Lab data: CBC: Recent Labs 03/07/2521603/06/25172303/03/25 0504 WBC 19.81* 20.37* 9.27 HB 10.6* 11.2* 11.6 HCT 32.4* 33.7* 35.6* PLT 320 353 309 MCV 85.9 86.0 86.2 RDWCV 15.3* 14.9 14.9 NEUTP 93.0 -- 57.5 ABSNEUT 18.42* -- 5.33 LYMPHP 0.0 -- 32.3 MONOP 5.0 -- 6.0 EODINP -- -- 1.4 COAG: Recent Labs 03/05/25 2136 APTT 27.2 INR 1.0 BMP: Recent Labs 03/07/2521603/06/25 1724 03/03/25 0504 GLUC 152* 114* 101* NA 140 140 140 K 3.6* 3.7 3.9 CHLOR 100 98 102 CO2 27 30 27 ANION 13 12 11 BUN 28* 28* 29* CREAT 0.93 1.03* 1.15* CHEM: Recent Labs 03/07/2521603/06/25 1724 03/03/25 0504 CA 8.4* 8.8 8.8 MG 2.2 2.0 2.3 HEPATIC: No results for input(s): ALKPHOS, ALT, AST, TBILI, LIPASE in the last 168 hours. URINALYSIS:No results for input(s): PH, SPGR, UGLUC, UBILI, UKET, UHB, UPROT, UROBIL, UWBC, SSA in the last 168 hours. Invalid input(s): NITR CARDIAC: No results for input(s): PBNP in the last 168 hours. Problem List Brain mass (POA: Yes) Hypertension, essential (POA: Yes) Hyperlipidemia, mixed (POA: Yes) Obesity, Class II, BMI 35-39.9 (POA: Yes) CLAUDETTE (acute kidney injury) (POA: Yes) PHYSICAL EXAM: BP 121/68 Pulse 92 Temp (Src) 98 (Oral) Resp 17 Ht 5' 2 (1.58m) Wt 203 lb 7.8 oz (92.3kg) SpO2 92% BMI 37.21 kg/(m2). O2 Therapy: Room Air, Liters (Numeric Only): 4 Follow up : Pt seen and examined. Patient denies any fever, chills, dizziness, lightheadedness, nausea, vomiting. Tolerating diet General: Laying down in bed, comfortable. On room air at the time of my exam. Dressing noted on right side of head HEENT: Atraumatic, Normocephalic. PERRLA. Cardiovascular: RRR. S1 and S2 observed with no murmurs/gallops/rubs. Respiratory: Breath sounds equal bilaterally. No wheezing/rhonchi/rales observed. Abdomen: Soft, non tender. No rebound tenderness/guarding. Normal bowel sounds. EXTREMITIES: No pedal edema bilaterally Neuro: Alert, awake and oriented x 3. Cranial nerves grossly intact. Strength 5/5 throughout and no sensory deficits observed. Lymphatics: No Lymphadenopathy Skin:Warm, Dry without excorations. Psychiatric: Calm, appropriate mood and affect. ASSESSMENT/PLAN: 1. S/p right frontal pterional craniotomy - Management and pain control per primary team 2. Hypokalemia - Replace with KCl. Check magnesium level and replace if less than 2. Recheck in a.m. 3. Leukocytosis - Improving. No fever and no obvious signs of infection. Likely reactive from surgery and steroids. Monitor with CBC and monitor for fever 4. Anemia - No active bleeding. Monitor with CBC 5. Hypertension, hyperlipidemia - Continue patient on metoprolol, rosuvastatin 6. CLAUDETTE - Resolved Patient is hemodynamically stable. Lab work (more content not included)... Normal [facility] Basic metabolic 2000 panelon 06-05-2025 Anion gap [Moles/Vol] 13 mmol/L Normal 8-15 [facility] Comment on above: Order Comment: Speci men Type: BLOOD SPECIMENOrdering Facility: [facility] Address: [address] [place] [address] Performed By: #### 1 9123-9, 52404-1, 2776- ####[facility] LABORATORYCLIA [id number] [place] [address] [place] Calcium [Mass/Vol] 8.4 mg/dL Low 8.5-10.2 [facility] Comment on above: Order Comment: Speci men Type: BLOOD SPECIMENOrdering Facility: [facility] Address: [address] [place] [address] Performed By: #### 1 9123-9, 88491-1, 2776- ####[facility] LABORATORYCLIA [id number] [place] [address] [place] Chloride [Moles/Vol] 100 mmol/L Normal 98-107 [facility] Comment on above: Order Comment: Speci men Type: BLOOD SPECIMENOrdering Facility: [facility] Address: [address] [place] [address] Performed By: #### 1 9123-9, 24492-8, 2776- ####[facility] LABORATORYCLIA [id number] [place] [address] [place] CO2 [Moles/Vol] 27 mmol/L Normal 22-30 [facility] Comment on above: Order Comment: Speci men Type: BLOOD SPECIMENOrdering Facility: [facility] Address: [address] [place] [address] Performed By: #### 1 9123-9, 62487-2, 2776- ####[facility] LABORATORYCLIA [id number] [place] [address] [place] Creatinine [Mass/Vol] 0.93 mg/dL Normal 0.58-0.96 [facility] Comment on above: Order Comment: Speci men Type: BLOOD SPECIMENOrdering Facility: [facility] Address: [address] [place] [address] Performed By: #### 1 9123-9, 64285-0, 2777-1 ####[facility] LABORATORYCLIA [id number] [place] [id number] [place] Creatinine and Glomerular filtration rate.predicted panel (S/P/Bld) 74 mL/min/1.73m??? Normal >=60 [facility] Comment on above: Order Comment: Tiffanie osorio Type: BLOOD SPECIMENOrdering Facility: [facility] Address: [address] [place] [address] Result Comment: Eleanor mated Glomerular Filtration Rate (eGFR) is calculated using the 2020 CKD-EPI creatinine equation. This equation utilizes serum creatinine, sex, and age as parameters. The creatinine assay has traceable calibration to isotope dilution-mass spectrometry. Refer to KDIGO guidelines for clinical interpretation. In patients with unstable renal function, e.g. those with acute kidney injury, the eGFR may not accurately reflect actual GFR. Performed By: #### 1 9123-9, 26848-9, 2777-1 ####[facility] LABORATORYCLIA [id number] [place] [address] [place] Glucose [Mass/Vol] 152 mg/dL High 74-99 [facility] Comment on above: Order Comment: Tiffanie osorio Type: BLOOD SPECIMENOrdering Facility: [facility] Address: [address] [place] [address] Result Comment: The [place] [employer] (ADA) provides guidance for cutoff values for fasting glucose and random glucose. The ADA defines fasting as no caloric intake for at least 8 hours. Fasting plasma glucose results between 100 to 125 mg/dL indicate increased risk for diabetes (prediabetes). Fasting plasma glucose results greater than or equal to 126 mg/dL meet the criteria for diagnosis of diabetes. In the absence of unequivocal hyperglycemia, results should be confirmed by repeat testing. In a patient with classic symptoms of hyperglycemia or hyperglycemic crisis, random plasma glucose results greater than or equal to 200 mg/dL meet the criteria for diagnosis of diabetes. Reference: Standards of Medical Care in Diabetes 2016, [place] [employer]. Diabetes Care. 2016.39(Suppl 1). Performed By: #### 1 9123-9, 07231-8, 2776- ####[facility] LABORATORYCLIA [id number] [place] [address] [place] Potassium [Moles/Vol] 3.6 mmol/L Low 3.7-5.1 Ak[facility] Comment on above: Order Comment: Speci men Type: BLOOD SPECIMENOrdering Facility: [facility] Address: [address] [place] [address] Performed By: #### 1 9123-9, 45036-4, 2776- ####[facility] LABORATORYCLIA [id number] [place] [address] [place] Sodium [Moles/Vol] 140 mmol/L Normal 136-144 [facility] Comment on above: Order Comment: Speci men Type: BLOOD SPECIMENOrdering Facility: [facility] Address: [address] [place] [address] Performed By: #### 1 9123-9, 73580-8, 2776-10 ####[facility] LABORATORYCLIA [id number] [place] [address] [place] Urea nitrogen [Mass/Vol] 28 mg/dL High 7-21 [facility] Comment on above: Order Comment: Speci men Type: BLOOD SPECIMENOrdering Facility: [facility] Address: [address] [place] [address] Performed By: #### 1 9123-9, 96264-7, 2776- ####[facility] LABORATORYCLIA [id number] [place] [address] [place] CBC W Auto Differential pane l (Bld)on 03-07-2025 Anisocytosis Ql (Bld) Present Normal Wir [facility] Comment on above: Order Comment: Speci men Type: BLOOD SPECIMENOrdering Facility: [facility] Address: [address] [place] [address] Performed By: #### 5 7021-8 ####[facility] LABORATORYCLIA [id number] [place] [address] [place] Basophils (Bld) [#/Vol] 0.00 10*3/uL Normal <0.11 [facility] Comment on above: Order Comment: Speci men Type: BLOOD SPECIMENOrdering Facility: [facility] Address: [address] [place] [address] Performed By: #### 5 7021-8 ####[facility]ORATORYCLIA [id number] [address] [place] Basophils/100 WBC (Bld) 0.0 % Normal A [facility] Comment on above: Order Comment: Speci men Type: BLOOD SPECIMENOrdering Facility: [facility] Address: [address] [place] [address] Performed By: #### 5 7021-8 ####[facility]ORATORYCLIA [id number] [address] Differential cell count method Nom (Bld) Manual Normal [facility] Comment on above: Order Comment: Speci men Type: BLOOD SPECIMENOrdering Facility: [facility] Address: [address] [place] [address] Performed By: #### 5 7021-8 ####[facility]ORATORYCLIA [id number] [address] [place] Eosinophils (Bld) [#/Vol] 0.00 10*3/uL Normal <0.46 [facility] Comment on above: Order Comment: Speci men Type: BLOOD SPECIMENOrdering Facility: [facility] Address: [address] [place] [address] Performed By: #### 5 7021-8 ####[facility]ORATORYCLIA [id number] [address] [place] Eosinophils/100 WBC (Bld) 0.0 % Normal [facility] Comment on above: Order Comment: Speci men Type: BLOOD SPECIMENOrdering Facility: [facility] Address: [address] [place] [address] Performed By: #### 5 7021-8 ####[facility]ORATORYCLIA [id number] [place] [address] [place] Erythrocyte distribution width (RBC) [Ratio] 15.3 % High 11.5-15.0 [facility] Comment on above: Order Comment: Speci men Type: BLOOD SPECIMENOrdering Facility: [facility] Address: [address] [place] [address] Performed By: #### 5 7021-8 ####[facility] LABORATORYCLIA [id number] [address] [place] Hematocrit (Bld) [Volume fraction] 32.4 % Low 36.0-46.0 [facility] Comment on above: Order Comment: Speci men Type: BLOOD SPECIMENOrdering Facility: [facility] Address: [address] [place] [address] Performed By: #### 5 7021-8 ####[facility] LABORATORYCLIA [id number] [address] [place] Hemoglobin (Bld) [Mass/Vol] 10.6 g/dL Low 11.5-15.5 [facility] Comment on above: Order Comment: Speci men Type: BLOOD SPECIMENOrdering Facility: [facility] Address: [address] [place] [address] Performed By: #### 5 7021-8 ####[facility] LABORATORYCLIA [id number] [address] [place] Lymphocytes (Bld) [#/Vol] 0.00 10*3/uL Low 1.00-4.00 [facility] Comment on above: Order Comment: Speci men Type: BLOOD SPECIMENOrdering Facility: [facility] Address: [address] [place] [address] Performed By: #### 5 7021-8 ####[facility] LABORATORYCLIA [id number] [address] [place] Lymphocytes/100 WBC (Bld) 0.0 % Normal [facility] Comment on above: Order Comment: Speci men Type: BLOOD SPECIMENOrdering Facility: [facility] Address: [address] [place] [address] Performed By: #### 5 7021-8 ####[facility] LABORATORYCLIA [id number] [address] MCH (RBC) [Entitic mass] 28.1 pg Normal 26.0-34.0 [facility] Comment on above: Order Comment: Speci men Type: BLOOD SPECIMENOrdering Facility: [facility] Address: [address] [place] [address] Performed By: #### 5 7021-8 ####[facility] LABORATORYCLIA [id number] [address] [place] MCHC (RBC) [Mass/Vol] 32.7 g/dL Normal 30.5-36.0 [facility] Comment on above: Order Comment: Speci men Type: BLOOD SPECIMENOrdering Facility: [facility] Address: [address] [place] [address] Performed By: #### 5 7021-8 ####[facility] LABORATORYCLIA [id number] [address] MCV (RBC) [Entitic vol] 85.9 fL Normal 80.0-100.0 [facility] Comment on above: Order Comment: Speci men Type: BLOOD SPECIMENOrdering Facility: [facility] Address: [address] [place] [address] Performed By: #### 5 7021-8 ####[facility] LABORATORYCLIA [id number] [address] Metamyelocytes/100 WBC (Bld) 2.0 % Normal [facility] Comment on above: Order Comment: Speci men Type: BLOOD SPECIMENOrdering Facility: [facility] Address: [address] [place] [address] Performed By: #### 5 7021-8 ####[facility] LABORATORYCLIA [id number] [address] OF [facility] Monocytes (Bld) [#/Vol] 0.99 10*3/uL High <0.87 [facility] Comment on above: Order Comment: Speci men Type: BLOOD SPECIMENOrdering Facility: [facility] Address: [address] [place] [address] Performed By: #### 5 7021-8 ####[facility]ORATORYCLIA [id number] [address] [place] Monocytes/100 WBC (Bld) 5.0 % Normal A [facility] Comment on above: Order Comment: Speci men Type: BLOOD SPECIMENOrdering Facility: [facility] Address: [address] [place] [address] Performed By: #### 5 7021-8 ####[facility]ORATORYCLIA [id number] [place] [address] [place] Neutrophils (Bld) [#/Vol] 18.42 10*3/uL High 1.45-7.50 [facility] Comment on above: Order Comment: Speci men Type: BLOOD SPECIMENOrdering Facility: [facility] Address: [address] [place] [address] Performed By: #### 5 7021-8 ####[facility]ORATORYCLIA [id number] [address] [place] Neutrophils/100 WBC (Bld) 93.0 % Normal [facility] Comment on above: Order Comment: Speci men Type: BLOOD SPECIMENOrdering Facility: [facility] Address: [address] [place] [address] Performed By: #### 5 7021-8 ####[facility]ORATORYCLIA [id number] [place] [address] [place] Nucleated RBC (Bld) [#/Vol] 10*3/uL Normal <0.01 [facility] Comment on above: Order Comment: Speci men Type: BLOOD SPECIMENOrdering Facility: [facility] Address: [address] [place] [address] Performed By: #### 5 7021-8 ####[facility]ORATORYCLIA [id number] [address] [place] Nucleated RBC/100 WBC (Bld) [Ratio] 0.0 /100 WBC Normal [facility] Comment on above: Order Comment: Speci men Type: BLOOD SPECIMENOrdering Facility: [facility] Address: [address] [place] [address] Performed By: #### 5 7021-8 ####[facility] LABORATORYCLIA [id number] [place] [address] [place] Ovalocytes LM Ql (Bld) Few Normal [facility] Comment on above: Order Comment: Speci men Type: BLOOD SPECIMENOrdering Facility: [facility] Address: [address] [place] [address] Performed By: #### 5 7021-8 ####[facility] LABORATORYCLIA [id number] [address] [place] Platelet mean volume (Bld) [Entitic vol] 9.0 fL Normal 9.0-12.7 [facility] Comment on above: Order Comment: Speci men Type: BLOOD SPECIMENOrdering Facility: [facility] Address: [address] [place] [address] Performed By: #### 5 7021-8 ####[facility] LABORATORYCLIA [id number] [place] [address] [place] Platelets (Bld) [#/Vol] 320 10*3/uL Normal 150-400 [facility] Comment on above: Order Comment: Speci men Type: BLOOD SPECIMENOrdering Facility: [facility] Address: [address] [place] [address] Performed By: #### 5 7021-8 ####[facility] LABORATORYCLIA [id number] [place] [address] [place] Platelets Estimate (Bld) [#/Vol] Increased Normal [facility] Comment on above: Order Comment: Speci men Type: BLOOD SPECIMENOrdering Facility: [facility] Address: [address] [place] [address] Performed By: #### 5 7021-8 ####[facility] LABORATORYCLIA [id number] [place] [address] [place] Polychromasia LM Ql (Bld) Slight Normal [facility] Comment on above: Order Comment: Speci men Type: BLOOD SPECIMENOrdering Facility: [facility] Address: [address] [place] [address] Performed By: #### 5 7021-8 ####[facility] LABORATORYCLIA [id number] [address] STATES OF [facility] RBC (Bld) [#/Vol] 3.77 10*6/uL Low 3.90-5.20 [facility] Comment on above: Order Comment: Speci men Type: BLOOD SPECIMENOrdering Facility: [facility] Address: [address] [place] [address] Performed By: #### 5 7021-8 ####[facility] LABORATORYCLIA [id number] [address] RED CELL MORPH Reviewed: see result s of individual morphologies Normal [facility] Comment on above: Order Comment: Speci men Type: BLOOD SPECIMENOrdering Facility: [facility] Address: [address] [place] [address] Performed By: #### 5 7021-8 ####[facility] LABORATORYCLIA [id number] [address] WBC (Bld) [#/Vol] 19.81 10*3/uL High 3.70-11.00 [facility] Comment on above: Order Comment: Speci men Type: BLOOD SPECIMENOrdering Facility: [facility] Address: [address] [place] [address] Performed By: #### 5 7021-8 ####[facility] LABORATORYCLIA [id number] [address] WBC Left Shift Ql (Bld) Present Normal A [facility] Comment on above: Order Comment: Speci men Type: BLOOD SPECIMENOrdering Facility: [facility] Address: [address] [place] [address] Performed By: #### 5 7021-8 ####[facility] LABORATORYCLIA [id number] [address] CONSULTon 03-07-2025 CONSULT HNO ID: [id number] Author: CHACORTA WOOD MD Service: Hospital Medicine Author Type: Physician Type: Consults Filed: 03/07/2025 18:02 Note Text: DEPARTMENT OF HOSPITAL MEDICINE INITIAL CONSULT SERVICE DATE: 03/07/2025 SERVICE TIME: 4:01 PM Primary Care Physician: Mati Augustine DO, DO NIGHT AND WEEKEND COVERAGE: [place] COVERAGE: From 7am - 7pm, please call team pager After 7pm, please call cross cover pager #[phone] REASON FOR CONSULT: Perioperative medical optimization. REQUESTING PHYSICIAN: Dr. 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 patient was in the NsICU following surgery, now transferred out to regular medical floor. Patient has history of postoperative nausea vomiting-currently does not have any symptoms.Able to tolerate a regular diet Travel Screening No screening recorded since 02/28/25 0011 Travel History Travel since 02/04/25 No documented travel since 02/04/25 PAST MEDICAL HISTORY Diagnosis Date PONV (postoperative nausea and vomiting) PAST SURGICAL HISTORY Procedure Laterality Date PAST SURGICAL HISTORY OF Right 2021 trigger finger thuimb TONSILLECTOMY AND ADENOIDECTOMY History reviewed. No pertinent family history. Social History Tobacco Use Smoking status: Former Smokeless tobacco: Never Vaping Use Vaping status: Some Days Substances: Nicotine Devices: Disposable Substance Use Topics Alcohol use: Yes Comment: occasionally x1 every other week Drug use: Never PRIOR TO ADMISSION MEDICATIONS: Echinacea 400 mg cap, Take 400 mg by mouth once daily., Disp: , Rfl: , 02/28/2025 Morning ASCORBIC ACID-BIOFLAVONOIDS ORAL, Take 100 mg by mouth once daily. C-100 with 10 mg Bioflavonoids 2 pill qday, Disp: , Rfl: , 02/28/2025 Morning multivit with calcium,iron,min (WOMEN'S MULTIPLE VITAMINS ORAL), Take 1 tablet by mouth once daily. Active Woman's Multi with Soy, Lutein, Black Cohosh and Cranberry, Disp: , Rfl: , 02/28/2025 Morning escitalopram oxalate (LEXAPRO) 20 mg tablet, Take 20 mg by mouth once daily., Disp: , Rfl: , 02/28/2025 Morning triamterene/hydrochlorothi azid (DYAZIDE ORAL), Take 0.5 mg by mouth once daily., Disp: , Rfl: , 02/28/2025 Morning metoprolol succinate ER (TOPROL XL) 50 mg 24 hr tablet, Take 50 mg by mouth two times a day., Disp: , Rfl: , 02/28/2025 Morning omeprazole (PRILOSEC) 20 mg capsule, Take 20 mg by mouth two times a day., Disp: , Rfl: , 02/28/2025 Morning brexpiprazole (REXULTI) 2 mg tablet, Take 2 mg by mouth once daily., Disp: , Rfl: , 02/28/2025 Morning clonazePAM (KLONOPIN) 2 mg tablet, Take 1 mg by mouth at bedtime as needed for anxiety. Take 1 to 2 mg, Disp: , Rfl: , 02/27/2025 Bedtime rosuvastatin (CRESTOR) 10 mg tablet, Take 10 mg by mouth daily at bedtime., Disp: , Rfl: , 02/27/2025 Bedtime FLUoxetine (PROZAC) 20 mg capsule, Take 20 mg by mouth once daily., Disp: , Rfl: buPROPion XL (WELLBUTRIN XL) 300 mg 24 hr tablet, , Disp: , Rfl: rosuvastatin (CRESTOR) 5 mg tablet, Take 5 mg by mouth once daily., Disp: , Rfl: metoprolol tartrate, short acting, (LOPRESSOR) 50 mg tablet, Take 50 mg by mouth once daily., Disp: , Rfl: valACYclovir (VALTREX) 500 mg tablet, Take 500 mg by mouth once daily., Disp: , Rfl: , 02/27/2025 Bedtime Norethindrone Acet-Ethinyl Est 1.5-30 mg-mcg tab, Take 1 tablet by mouth once daily., Disp: , Rfl: Current Facility-Administered Medications Medication Dose Route Frequency brexpiprazole 2 mg tab(s) (REXULTI) 2 mg ORAL DAILY escitalopram oxalate 20 mg tab(s) (LEXAPRO) 20 mg ORAL DAILY metoprolol succinate ER 50 mg tab(s) (TOPROL XL) 50 mg ORAL BID rosuvastatin 10 mg tab(s) (CRESTOR) 10 mg ORAL AT BEDTIME NaCl 0.9% iv flush bag 20 mL INTRAVENOUS PRN pantoprazole DR 20 mg tab(s) (PROTONIX) 20 mg ORAL BID AC (0600/1600) levETIRAcetam 500 mg tab(s) (KEPPRA) 500 mg ORAL BID nicotine 14 mg/24 hr 1 patch (NICODERM) 1 patch TRANSDERMAL DAILY And nicotine -- REMOVE patch OTHER DAILY And nicotine - verify patch OTHER q 8 H clonazePAM 1 mg tab(s) (KlonoPIN) 1 mg ORAL q 12 H PRN ondansetron 4 mg tab(s) (ZOFRAN) 4 mg ORAL q 6 H PRN Or ondansetron (PF) 4 mg injection (ZOFRAN) 4 mg INTRAVENOUS q 6 H PRN bisacodyl 10 mg suppository (DULCOLAX) 10 mg RECTAL DAILY PRN hydrALAZINE 10 mg injection (APRESOLINE) 10 mg INTRAVENOUS q 6 H PRN senna-docusate 8.6-50 mg 1 tablet (SENNA-S) 1 tablet ORAL BID [START ON 03/08/2025] heparin 5,000 Units injection 5,000 Units SUBCUTANEOUS q 8 H dexAMETHasone 4 mg tab(s) (DECADRON) 4 mg ORAL q 6 H Followed by [START ON 03/08/2025] dexAMETHasone 2 mg tab(s) (DECADRON) 2 mg ORAL BID w MEALS Followed by [START ON 03/10/2025] dexAMETHasone 1 mg tab(s) (DECADRON) 1 mg ORAL (more content not included)... Normal [facility] Magnesium SerPl-mCncon 03-07 Magnesium [Mass/Vol] 2.2 mg/dL Normal 1.7-2.3 [facility] Comment on above: Order Comment: Speci men Type: BLOOD SPECIMENOrdering Facility: [facility] Address: [address] [place] [address] Performed By: #### 1 9123-9, 33861-2, 2777-1 ####[facility] LABORATORYCLIA [id number] [place] [address] [facility] NURSING PROGon 03-07-2025 NURSING PROG HNO ID: [id number] Author: FABIENNE URENA RN Service: Nursing Author Type: Registered Nurse Type: Nursing Progress Note Filed: 03/07/2025 09:59 Note Text: Transfer Note: PATIENT NAME: Sierra Patton Patient Location: [place] [id number]- 01 Room: [id number] Patient transferred into room/unit 9101 in stable condition. Actions taken: Report given/called to Niharika SO Normal [facility] Phosphate SerPl-mCncon 03-07 Phosphate [Mass/Vol] 4.5 mg/dL Normal 2.7-4.8 [facility] Comment on above: Order Comment: Speci men Type: BLOOD SPECIMENOrdering Facility: [facility] Address: [address] [place] [address] Performed By: #### 1 9123-9, 30426-8, 2777-1 ####[facility] LABORATORYCLIA [id number] [address] OF [facility] THERAPY NTon 03-07-2025 THERAPY NT HNO ID: [id number] Author: MARLENY SUMMERS OTR/Cira Service: Occupational Therapy Author Type: Occupational Therapist Type: Therapy (PT/OT/Speech/Resp) Filed: 03/07/2025 14:00 Note Text: Occupational Therapy Evaluation Summary SERVICE DATE: 03/07/2025 SERVICE TIME: 1325 to 1352 ROOM: [place] [address] OT 6 Clicks Score: 19 DISCHARGE RECOMMENDATIONS Outpatient OT Recommended Discharge Disposition Comments: Will benefit from ongoing OT to maximize cognition for return to work, driving, high level ADLs. Anticipated Discharge Needs: Physical Assist at Home Physical Assist at Home for: Transportation, Meals, Laundry, Medication Management, Cleaning, Shopping, Safety Recommended Discharge Equipment: Wheeled Walker ASSESSMENT Response to Therapy Interventions: Good Participation in Activities, Multiple Ongoing Medical Issues Facilitated increasing awareness of patient?s ADL and cognitive deficits through insight building activity. Provided feedback and encouraged self-reflection and discussion with patient. Facilitated comparison of pre-activity and post-activity success / ease. Patient required extended verbal cuing / discussion due to some distractibility but receptive to information provided. Provided pt with mod and high-level cognitive activities as 'homework'. Dtr present throughout and verbalizes understanding of cognitive exercise. Will continue. PRECAUTIONS Fall Risk CURRENT HOSPITAL COURSE 54 y/o female presents with meningioma found on CT. Presented to outside hospital and transfered to [facility] for [facility] evaluation. s/p R frontal crani /. Relevant Past Medical History: HTN HOME LIVING Patient Lives With: Significant Other Assistance Available: Part-Time Entry To Home: Stairs, With Rail Number Of Stairs Into Home: 4 Number Of Stairs To Bed/Bath: 0 Equipment Owned: Cane, Walker- Wheeled PRIOR FUNCTIONAL LEVEL Within Functional Limits patient reports typically active and independent, completes own ADLs and iADLs, works Baseline Cognition: Oriented to self, Oriented to place, Oriented to time SUBJECTIVE awake, pleasant, agreeable to OT session COGNITION Responsiveness: Alert, Awake Follows Commands: 2-step Commands, Cueing Needed Cueing to Follow Commands: Minimum Attention Deficits: Divided, Distractible Memory Deficits: Short Term Executive Function Deficits: Safety Awareness, Insight to Deficits, Problem Solving, Judgement Clock Draw Test: 0-Abnormal (03/07/25) Word Recall: 2-recalled words (03/07/25) Mini Cog Score: 2 (03/07/25) Cognitive Activities Performed: visuospatial, executive, abstract thought, memory recall THERAPY DIAGNOSIS Reduced mobility-other, Decreased activities of daily living (ADL) TREATMENT INTERVENTIONS Evaluation, Cognitive Training (53218 and 02332) Timed Code Treatment (minutes): 10 Skilled Treatment Time (minutes): 27 $ Evaluation - Moderate (22820) Billed Units: 1 unit Cognitive Training First 15 Minutes (90914) : 10 $ Cognitive Training First 15 Minutes (51321) Billed Units: 1 unit TRAINING AND EDUCATION PROVIDED Activity Adaptation/Compensatory Strategies, Cognitive Skills, Cognitive Stimulation Activities, Command Following, Safety/Judgment, Discharge Planning, Benefits of In-Hospital Mobility THERAPEUTIC SKILLS USED Activity Dosing, Cues for Sequencing/Proper Technique for Activity, Physical Assist, Therapeutic Use of Self, Movement Facilitation FUNCTIONAL STATUS Activities of Daily Living Assist Level Additional Information Feeding Set Up Grooming Set Up Bathing Upper Body Set Up Bathing Lower Body Contact Guard Assistance Dressing Upper Body Set Up Dressing Lower Body Contact Guard Assistance Toileting Stand By Assistance Mobility Assist Level Additional Information Bed Mobility Rolling: Supervision Supine To Sit: Supervision Sit To Supine: Supervision Sit to Stand Stand By Assistance Stand to Sit Stand By Assistance Bed to Chair Toilet/Commode Stand By Assistance Shower Functional Mobility Stand By Assistance Functional Mobility Device: Wheeled Walker Range of Motion: WFL Strength: WFL Vision Deficits: Wears Corrective Lenses GOALS Tolerate (minutes of functional activity): 20 Functional Activity with: Modified Independent Additional Goal 1: Tolerate high level cognitive tasks to maximize problem solving, executive function, safety, insight during ADls Additional Goal 2: Follow 3-step commands 100% during 10min task Demonstrate Competence with Education with: Modified Independent Increased Awareness of Cognitive Impairments as Related to ADL's/IADL's: Verbalized, Demonstrated (attention to 15min high level task with min cues) Medication Management with Strategies: Set Up Rehab Potential: Good Good Rehab Potential Due To: Good motivation, Good support system/ coping skills ACUTE CARE TREATMENT PLAN OT Frequency: 2 Times Per Week Treatment In (more content not included)... Normal [facility] THERAPY NT HNO ID: [id number] Author: TONYA MARIE, PT Service: Physical Therapy Author Type: Physical Therapist Type: Therapy (PT/OT/Speech/Resp) Filed: 03/07/2025 12:08 Note Text: Physical Therapy Evaluation Summary SERVICE DATE: 03/07/2025 SERVICE TIME: 910 to 935 ROOM: [id number] PT 6 Clicks Score: 20 DISCHARGE RECOMMENDATIONS Home Recommended Discharge Disposition Comments: home with family assist, use of wheeled walker PRN Recommended Discharge Equipment: No equipment needs anticipated ASSESSMENT Response to Therapy Interventions: Good Participation in Activities, On-Track to Achieve Discharge Goals PRECAUTIONS Fall Risk CURRENT HOSPITAL COURSE 54 y/o female presents with meningioma found on CT. Presented to outside hospital and transfered to [facility] for neurosurgery evaluation. s/p R frontal crani 03/06. Relevant Past Medical History: HTN HOME LIVING Patient Lives With: Significant Other Assistance Available: Part-Time Entry To Home: Stairs, With Rail Number Of Stairs Into Home: 4 Number Of Stairs To Bed/Bath: 0 Equipment Owned: Cane, Walker- Wheeled PRIOR FUNCTIONAL LEVEL Within Functional Limits patient reports typically active and independent, completes own ADLs and iADLs, works SUBJECTIVE Pleasant and agreeable to PT. THERAPY DIAGNOSIS Reduced mobility-other, Muscle Weakness (generalized), Unsteadiness on feet, Abnormalities of gait and mobility-other, General symptoms and signs-other, Difficulty walking-musculoskeletal TREATMENT INTERVENTIONS Evaluation, Gait Training (19156) Timed Code Treatment (minutes): 8 Skilled Treatment Time (minutes): 25 $ Evaluation-Moderate (45139) Billed Units: 1 unit Gait Training (40169) Treatment Minutes: 8 $ Gait Training (89591) Billed Units: 1 unit See grid as well as balance and activity tolerance section(s) for functional mobility facilitated and education provided. Education regarding importance of continued and progressive mobility with staff assist to prevent hospital acquired weakness. Education on fall prevention. Up with assist only. Oriented to call light. TRAINING AND EDUCATION PROVIDED Anatomy and Impact on Deficits, Benefits of In-Hospital Mobility, Discharge Planning, Assistive Device Use, Bed Mobility, Equipment, Expected Functional Level, Falls Prevention, Gait Pattern, Reduction of Deviations, Role of Physical Therapy, Standing Balance, Transfers THERAPEUTIC SKILLS USED Activity Dosing, Cues for Sequencing/Proper Technique for Activity, Cuing Verbal, Movement Facilitation, Muscle Activation Facilitation, Physical Assist, Postural Alignment Correction FUNCTIONAL STATUS Bed Mobility Supine To Sit: Stand By Assistance Scooting: Stand By Assistance Transfers Sit To Stand: Contact Guard Assistance Stand To Sit: Contact Guard Assistance Bed to Chair Gait Contact Guard Assistance, Additional Information feels insecure/unsteady with no device, improved with wheeled walker, feels unsteadiness due to R vision, glasses on, instructed to use wheeled walker initially for improved balance and security Gait Device: None, Wheeled Walker General Deviations/Observations: Mariana decreased, Step length decreased, Flexed trunk posture Gait Distance (feet): 5ftx2, [id number] Stairs RANGE OF MOTION Lower Extremity Comments Right Lower Extremity ROM Comments: WFL Left Lower Extremity ROM Comments: WFL STRENGTH Right Lower Extremity Strength Comments: 5/5 Left Lower Extremity Strength Comments: 5/5 BALANCE Static Sitting Balance: Normal Dynamic Sitting Balance: Good Static Standing Balance: Good Dynamic Standing Balance: Fair GOALS Able to Perform HEP with: Verbal Cues Only (BLE general strengthening) Transfer Supine to/from Sit with: Independent Transfer Sit to/from Stand with: Independent Ambulate with: Independent Distance: 150ft intervals Device: No Device Ambulate Up and Down Steps with: Stand By Assistance Number of Steps: 4 Device: Rail Rehab Potential: Good Good Rehab Potential Due To: Current objective clinical presentation, Good support system/ coping skills, Good motivation ACUTE CARE TREATMENT PLAN PT Frequency: 4 Times Per Week (2-4) Treatment Interventions: Education, Strengthening, Functional Mobility Training, Balance Training, Neuromuscular Re-education SIGNATURE: Tonya Marie PT PATIENT NAME: Sierra Patton DATE: March 07, 2025 TIME: 12:07 PM [facility] ANES POSTPROC EVALon 025 ANES POSTPROC EVAL HNO ID: [id number] Author: PRINCESS BOONE MD Service: Anesthesiology Author Type: Physician Type: Anesthesia Postprocedure Evaluation Filed: 03/06/2025 16:11 Note Text: POST ANESTHESIA EVALUATION NOTE : 1970 Procedure Summary Date: 03/06/25 Room / Location: RI OR [place] OR Anesthesia Start: 924 Anesthesia Stop: 1601 Procedures: CRANIOTOMY FOR EXCISION SUPRATENTORIAL MENINGIOMA (Bilateral: Head) BRAINLAB STEREOTACTIC COMPUTER-ASSISTED NAVIGATIONAL PROCEDURE CRANIAL (Bilateral) Diagnosis: Brain mass (Brain mass [G93.89]) Surgeons: Fabrizio Ambrocio MD Responsible Provider: Princess Boone MD Anesthesia Type: general ASA Status: 3 Anesthesia Type: general Airway Type: ETT Last Vitals Vitals Value Taken Time BP 124/87 03/06/25 1606 Temp 03/06/25 1611 Pulse 90 03/06/25 1610 Resp 17 03/06/25 1610 SpO2 100 % 03/06/25 1610 Vitals shown include unfiled device data. Post Anesthesia Patient Status Patient Evaluation: bedside. Neurological Status: aware and responsive. Pulmonary Status: breathing comfortably on supplemental oxygen Airway Control: returned to baseline unsupported. Cardiovascular Status: stable. Pain Management: clinically adequate Postoperative Hydration: acceptable. Intraoperative Events: no significant anesthesia events Post Operative Nausea/Vomiting Status: no significant post operative nausea or vomiting Recommendation: continue current plan of care. Anesthesia Observations No Documentation SIGNATURE: Princess Boone MD PATIENT NAME: Sierra Patton DATE: March 06, 2025 TIME: 4:11 PM CSN: [id number] [facility] ANES PRE-OPon 03-06-2025 ANES PRE-OP HNO ID: [id number] Author: LYDIA PEARSON DO Service: Anesthesiology Author Type: Anesthesiologist Type: Anesthesia Preprocedure Evaluation Filed: 03/06/2025 08:54 Note Text: ANESTHESIOLOGY DAY OF SURGERY NOTE : 1970 Procedure Information Date/Time: 03/06/25929 Procedures: CRANIOTOMY FOR EXCISION SUPRATENTORIAL MENINGIOMA (Bilateral: Head) BRAINLAB STEREOTACTIC COMPUTER-ASSISTED NAVIGATIONAL PROCEDURE CRANIAL (Bilateral) Location: [place] OR [place] OR Surgeons: Fabrizio Ambrocio MD Estimated body mass index is 36.41 kg/m? as calculated from the following: Height as of this encounter: 157.5 cm (5' 2). Weight as of this encounter: 90.3 kg (199 lb 1.2 oz). Most recent hematocrit and potassium results: Hematocrit 35.6 03/03/2025 Potassium 3.9 03/03/2025 Relevant Problems CARDIO (+) Hypertension, essential I - PHYSICAL EVALUATION AIRWAY Patient intubated: No. Tracheostomy tube not present Mallampati: II. TM distance: >3 FB. Neck ROM: full ROM without neurological symptoms. Mouth opening: adequate. Short neck: no. Thick neck: no DENTAL Dental findings: teeth intact. Additional exam findings: yes. Other findings: meningioma CKD 3 HTN HLD. II - ANESTHESIA PLAN ASA Score: 3 Anesthetic Plan: general Airway type: ETT The patient is a current smoker. NPO Status: adequate Beta Yolette Monitoring Plan Monitoring plan: standard ASA and invasive hemodynamic monitoring. Monitoring method: arterial Line Post Procedure Analgesic Plan Postoperative analgesic plan: parenteral or oral opioids and multimodal analgesia. Informed Consent Anesthetic risks, benefits, alternatives, personnel and consent discussed: yes. Patient / Responsible Libertarian agrees to proceed: yes Patient / Surrogate agrees to blood products: Yes DNR status not reviewed with patient and/or family prior to surgery. Significant changes in the patient condition since the History and Physical, not otherwise documented in primary service progress note: no. Potential Anesthesia issues that may suggest increased risk of complications or contraindication to planned procedure: none. Discussed the possibility of lip / dental damage: yes Vitals Value Taken Time BP 119/73 03/06/25 0851 Pulse 81 03/06/25 0720 Resp 18 03/06/25 0720 Temp SpO2 95 % 03/06/25 0720 Vitals shown include unfiled device data. Facility-Administered Medications as of 03/06/2025 Medication Dose Route Frequency [COMPLETED] clonazePAM 1 mg tab(s) (KlonoPIN) 1 mg ORAL ONCE [Transfer Hold] morphine 2 mg injection 2 mg INTRAVENOUS q 4 H PRN [Transfer Hold] oxyCODONE IR 5 mg tab(s) (ROXICODONE) 5 mg ORAL q 4 H PRN [Transfer Hold] dexAMETHasone 4 mg tab(s) (DECADRON) 4 mg ORAL q 6 H [] iv contrast (radiology procedure) INTRAVENOUS DIRECTED PRN [COMPLETED] heparin 5,000 Units injection 5,000 Units SUBCUTANEOUS q 12 H [Transfer Hold] nicotine 14 mg/24 hr 1 patch (NICODERM) 1 patch TRANSDERMAL DAILY And [Transfer Hold] nicotine -- REMOVE patch OTHER DAILY And [Transfer Hold] nicotine - verify patch OTHER q 8 H [Transfer Hold] clonazePAM 1 mg tab(s) (KlonoPIN) 1 mg ORAL q 12 H PRN [Transfer Hold] acetaminophen 325-650 mg tab(s) (TYLENOL) 325-650 mg ORAL q 6 H PRN [] acetaminophen 650 mg tab(s) (TYLENOL) 650 mg ORAL ONCE [COMPLETED] morphine 4 mg injection 4 mg INTRAVENOUS ONCE [Transfer Hold] brexpiprazole 2 mg tab(s) (REXULTI) 2 mg ORAL DAILY [Transfer Hold] escitalopram oxalate 20 mg tab(s) (LEXAPRO) 20 mg ORAL DAILY [Transfer Hold] metoprolol succinate ER 50 mg tab(s) (TOPROL XL) 50 mg ORAL BID [Transfer Hold] rosuvastatin 10 mg tab(s) (CRESTOR) 10 mg ORAL AT BEDTIME [Transfer Hold] NaCl 0.9% iv flush bag 20 mL INTRAVENOUS PRN [Transfer Hold] ondansetron (PF) 4 mg injection (ZOFRAN) 4 mg INTRAVENOUS q 6 H PRN [Transfer Hold] pantoprazole DR 20 mg tab(s) (PROTONIX) 20 mg ORAL BID AC (0600/1600) [Transfer Hold] levETIRAcetam 500 mg tab(s) (KEPPRA) 500 mg ORAL BID Outpatient Medications as of 03/06/2025 Medication Sig Echinacea 400 mg cap Take 400 mg by mouth once daily. ASCORBIC ACID-BIOFLAVONOIDS ORAL Take 100 mg by mouth once daily. C-100 with 10 mg Bioflavonoids 2 pill qday multivit with calcium,iron,min (WOMEN'S MULTIPLE VITAMINS ORAL) Take 1 tablet by mouth once daily. Active Woman's Multi with Soy, Lutein, Black Cohosh and Cranberry escitalopram oxalate (LEXAPRO) 20 mg tablet Take 20 mg by mouth once daily. triamterene/hydrochlorothi azid (DYAZIDE ORAL) Take 0.5 mg by mouth once daily. metoprolol succinate ER (TOPROL XL) 50 mg 24 hr tablet Take 50 mg by mouth two times a day. omeprazole (PRILOSEC) 20 mg capsule Take 20 mg by mouth two times a day. brexpiprazole (REXULTI) 2 mg tablet Take 2 mg by mouth once daily. clonazePAM (KLONOPIN) 2 mg tablet Take 1 mg by mouth at bedtime as needed for anxiety. Take 1 to 2 mg rosuvastatin (CRESTOR) 10 mg tablet Take (more content not included)... Normal [facility] Basic metabolic 2000 panelon 03-06-2025 Anion gap [Moles/Vol] 12 mmol/L Normal 8-15 [facility] Comment on above: Order Comment: Speci men Type: BLOOD SPECIMENOrdering Facility: [facility] Address: [address] [place] [address] Performed By: #### 3 016-3, 48804-8, 38528-5, 2776-10 ####[facility] LABORATORYCLIA [id number] [place] [address] [place] Calcium [Mass/Vol] 8.8 mg/dL Normal 8.5-10.2 [facility] Comment on above: Order Comment: Speci men Type: BLOOD SPECIMENOrdering Facility: [facility] Address: [address] [place] [address] Performed By: #### 3 016-3, 72160-3, 64477-6, 2776-10 ####[facility] LABORATORYCLIA [id number] [place] [address] [place] Chloride [Moles/Vol] 98 mmol/L Normal 98-107 [facility] Comment on above: Order Comment: Speci men Type: BLOOD SPECIMENOrdering Facility: [facility] Address: [address] [place] [address] Performed By: #### 3 016-3, 97980-1, 54442-9, 1 ####[facility] LABORATORYCLIA [id number] [address] CO2 [Moles/Vol] 30 mmol/L Normal 22-30 [facility] Comment on above: Order Comment: Speci men Type: BLOOD SPECIMENOrdering Facility: [facility] Address: [address] [place] [address] Performed By: #### 3 016-3, 16977-1, 24591-3, 2776-10 ####[facility] [id number] [address] Creatinine [Mass/Vol] 1.03 mg/dL High 0.58-0.96 [facility] Comment on above: Order Comment: Speci men Type: BLOOD SPECIMENOrdering Facility: [facility] Address: [address] [place] [address] Performed By: #### 3 016-3, 63911-6, 38700-8, 2776-10 ####[facility] LABORATORYIA [id number] [address] Creatinine and Glomerular filtration rate.predicted panel (S/P/Bld) 65 mL/min/1.73m??? Normal >=60 [facility] Comment on above: Order Comment: Speci men Type: BLOOD SPECIMENOrdering Facility: [facility] Address: [address] [place] [address] Result Comment: Eleanor mated Glomerular Filtration Rate (eGFR) is calculated using the 2020 CKD-EPI creatinine equation. This equation utilizes serum creatinine, sex, and age as parameters. The creatinine assay has traceable calibration to isotope dilution-mass spectrometry. Refer to KDIGO guidelines for clinical interpretation. In patients with unstable renal function, e.g. those with acute kidney injury, the eGFR may not accurately reflect actual GFR. Performed By: #### 3 016-3, 61316-7, 32235-6, 277-1 ####[facility] LABORATORYCLIA [id number] [place] [address] [place] Glucose [Mass/Vol] 114 mg/dL High 74-99 [facility] Comment on above: Order Comment: Speci men Type: BLOOD SPECIMENOrdering Facility: [facility] Address: [address] [place] [address] Result Comment: The [place] Diabetes Association (ADA) provides guidance for cutoff values for fasting glucose and random glucose. The ADA defines fasting as no caloric intake for at least 8 hours. Fasting plasma glucose results between 100 to 125 mg/dL indicate increased risk for diabetes (prediabetes). Fasting plasma glucose results greater than or equal to 126 mg/dL meet the criteria for diagnosis of diabetes. In the absence of unequivocal hyperglycemia, results should be confirmed by repeat testing. In a patient with classic symptoms of hyperglycemia or hyperglycemic crisis, random plasma glucose results greater than or equal to 200 mg/dL meet the criteria for diagnosis of diabetes. Reference: Standards of Medical Care in Diabetes 2016, [place] Diabetes Association. Diabetes Care. 2016.39(Suppl 1). Performed By: #### 3 016-3, , 45255-6, 2776- ####[facility] LABORATORYCLIA [id number] [place] [address] [place] Potassium [Moles/Vol] 3.7 mmol/L Normal 3.7-5.1 [facility] Comment on above: Order Comment: Speci men Type: BLOOD SPECIMENOrdering Facility: [facility] Address: [address] [place] [address] Performed By: #### 3 016-3, , 68526-5, 2776- ####[facility] LABORATORYCLIA [id number] [place] [address] [place] Sodium [Moles/Vol] 140 mmol/L Normal 136-144 [facility] Comment on above: Order Comment: Speci men Type: BLOOD SPECIMENOrdering Facility: [facility] Address: [address] [place], [place] [address] Performed By: #### 3 016-3, 28068-5, 11754-1, 2776-1 ####[facility] LABORATORYCLIA [id number] [place] [address] [place] Urea nitrogen [Mass/Vol] 28 mg/dL High 7-21 [facility] Comment on above: Order Comment: Speci men Type: BLOOD SPECIMENOrdering Facility: [facility] Address: [address] [place] [address] Performed By: #### 3 016-3, 91383-3, 91530-9, 2777-1 ####[facility] LABORATORYCLIA [id number] [address] STATES OF [facility] CBC panel Auto (Bld)on 03-06 Erythrocyte distribution width (RBC) [Ratio] 14.9 % Normal 11.5-15.0 [facility] Comment on above: Order Comment: Speci men Type: BLOOD SPECIMENOrdering Facility: [facility] Address: [address] [place] [address] Performed By: #### 5 8410-2 ####[facility] LABORATORYCLIA [id number] [address] [place] Hematocrit (Bld) [Volume fraction] 33.7 % Low 36.0-46.0 [facility] Comment on above: Order Comment: Speci men Type: BLOOD SPECIMENOrdering Facility: [facility] Address: [address] [place] [address] Performed By: #### 5 8410-2 ####[facility] LABORATORYCLIA [id number] [address] [place] Hemoglobin (Bld) [Mass/Vol] 11.2 g/dL Low 11.5-15.5 [facility] Comment on above: Order Comment: Speci men Type: BLOOD SPECIMENOrdering Facility: [facility] Address: [address] [place] [address] Performed By: #### 5 8410-2 ####[facility] LABORATORYCLIA [id number] [address] [place] MCH (RBC) [Entitic mass] 28.6 pg Normal 26.0-34.0 [facility] Comment on above: Order Comment: Speci men Type: BLOOD SPECIMENOrdering Facility: [facility] Address: [address] [place] [address] Performed By: #### 5 8410-2 ####[facility] LABORATORYCLIA [id number] [address] MCHC (RBC) [Mass/Vol] 33.2 g/dL Normal 30.5-36.0 [facility] Comment on above: Order Comment: Speci men Type: BLOOD SPECIMENOrdering Facility: [facility] Address: [address] [place] [address] Performed By: #### 5 8410-2 ####[facility] LABORATORYCLIA [id number] [address] MCV (RBC) [Entitic vol] 86.0 fL Normal 80.0-100.0 [facility] Comment on above: Order Comment: Speci men Type: BLOOD SPECIMENOrdering Facility: [facility] Address: [address] [place] [address] Performed By: #### 5 8410-2 ####[facility] LABORATORYCLIA [id number] [address] Nucleated RBC (Bld) [#/Vol] 10*3/uL Normal <0.01 [facility] Comment on above: Order Comment: Speci men Type: BLOOD SPECIMENOrdering Facility: [facility] Address: [address] [place] [address] Performed By: #### 5 8410-2 ####[facility] LABORATORYCLIA [id number] [address] Platelet mean volume (Bld) [Entitic vol] 9.1 fL Normal 9.0-12.7 [facility] Comment on above: Order Comment: Speci men Type: BLOOD SPECIMENOrdering Facility: [facility] Address: [address] [place] [address] Performed By: #### 5 8410-2 ####[facility] LABORATORYCLIA [id number] [address] OF [facility] Platelets (Bld) [#/Vol] 353 10*3/uL Normal 150-400 [facility] Comment on above: Order Comment: Speci men Type: BLOOD SPECIMENOrdering Facility: [facility] Address: [address] [place] [address] Performed By: #### 5 8410-2 ####[facility] LABORATORYCLIA [id number] [address] [place] RBC (Bld) [#/Vol] 3.92 10*6/uL Normal 3.90-5.20 [facility] Comment on above: Order Comment: Speci men Type: BLOOD SPECIMENOrdering Facility: [facility] Address: [address] [place] [address] Performed By: #### 5 8410-2 ####[facility] LABORATORYCLIA [id number] [address] OF [facility] WBC (Bld) [#/Vol] 20.37 10*3/uL High 3.70-11.00 [facility] Comment on above: Order Comment: Speci men Type: BLOOD SPECIMENOrdering Facility: [facility] Address: [address] [place] [address] Performed By: #### 5 8410-2 ####[facility] LABORATORYCLIA [id number] [address] CONFIRM BLOOD TYPEon 025 ABO O Normal [facility] Comment on above: Order Comment: Speci men Type: BLOOD SPECIMENOrdering Facility: [facility] Address: [address] [place] [address] Performed By: #### C ONABO ####[facility] BLOOD BANKCLIA [id number] [address] Rh Nom (Bld) Negative Normal [facility] Comment on above: Order Comment: Speci men Type: BLOOD SPECIMENOrdering Facility: [facility] Address: [address] [place] [address] Performed By: #### C ONABO ####[facility] BLOOD BANKCLIA [id number] [place] [address] [place] BRAIN WO IVCONon 03-06-[address] BRAIN WO IVCON * * *Final Report* * * DATE OF EXAM: Mar 06 2025 5:48PM [facility] 0504 - CT BRAIN WO IVCON / PROCEDURE REASON: Post-operative / post-procedure assessment, asymptomatic * * * * Physician Interpretation * * * * EXAMINATION: CT BRAIN WO IVCON CLINICAL HISTORY: Post-operative / post-procedure assessment, asymptomatic. TECHNIQUE: Routine CT of the brain without IV contrast. CT Dose-Length Product (DLP): 769 mGy*cm CT Dose Reduction Employed: Iterative recon; COMPARISON: 03/02/[address] RESULT: Interval right-sided supratentorial craniotomy changes with gross total resection of the previously seen extra-axial/dural based planum sphenoidale mass/likely meningioma. Moderate postprocedural pneumocephalus centered in the anterior bifrontal subdural regions. Slender right-sided frontotemporal/opercular hyperdense extra-axial hemorrhage measuring 5 mm thickness in the frontal region (2:17), and also mild adjacent intermediate density/hypodense fluid and mild gas (likely mostly in the epidural space, but probably also trace subdural hemorrhage component. Trace hypodensity/hemorrhage also suggested in the surgical bed at site of prior mass, with adjacent itscu-[id number]-[id number] left-sided and small right-sided parenchymal defects/parenchymal hypodensities (reflecting residual prior sequelae of perilesional edema/gliosis, and possibly also postprocedural insult). Mild-moderate right-sided scalp swelling and mild emphysema. About mild-moderate mass effect centered in the ventral cerebrum, and also elsewhere some cerebral sulcal and supratentorial ventricular narrowing. No hydrocephalus. Patent basal cisterns. Minimal paranasal sinus mucosal thickening and couple of small opacities (most commonly mucosal retention cysts or polyps). Reidentified moderate-severe bilateral temporomandibular arthritic changes and likely related condylar sclerosis. Skidder Runner (topogram) images: Non-diagnostic. 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 Some tanya-resectional/prior perilesional frontal parenchymal changes as above. Other details above. Compressor Station Operator: LG Transcribe Date/Time: Mar 06 2025 5:53P Dictated by : LUIS RINCON MD This examination was interpreted and the report reviewed and electronically signed by: LUIS RINCON MD on Mar 06 2025 6:02PM EST [id number] Normal [facility] HISTORY PHYSICALon HISTORY PHYSICAL HNO ID: [id number] Author: MARI FRANCISCO APRN.HISTOLOGY TEACHER Service: Neurology ICU Author Type: Nurse Practitioner Type: H&P Filed: 03/06/2025 17:18 Note Text: SERVICE DATE: 03/06/2025 SERVICE TIME: 5:17 PM NEUROLOGICAL INTENSIVE CARE UNIT HISTORY AND PHYSICAL REASON FOR ADMISSION: s/p meningioma resection Subjective HPI: 54 yo female with pmh depression, anxiety, HTN, GERD, and HLD who presented [facility] after frontal brain mass was found on CT scan of her thyroid. She was taken to the OR for resection with Dr. Ambrocio 03/06. She will be admitted to the NSICU post operatively for close neurological monitoring. PAST MEDICAL HISTORY Diagnosis Date PONV (postoperative nausea and vomiting) PAST SURGICAL HISTORY Procedure Laterality Date PAST SURGICAL HISTORY OF Right 2021 trigger finger thuimb TONSILLECTOMY AND ADENOIDECTOMY History reviewed. No pertinent family history. ALLERGIES Allergen Reactions Erythromycin Itching, Swelling Sulfa (Sulfonamide * Hives Genta-Gel Swelling PRIOR TO ADMISSION MEDICATIONS: Echinacea 400 mg cap, Take 400 mg by mouth once daily., Disp: , Rfl: , 02/28/2025 Morning ASCORBIC ACID-BIOFLAVONOIDS ORAL, Take 100 mg by mouth once daily. C-100 with 10 mg Bioflavonoids 2 pill qday, Disp: , Rfl: , 02/28/2025 Morning multivit with calcium,iron,min (WOMEN'S MULTIPLE VITAMINS ORAL), Take 1 tablet by mouth once daily. Active Woman's Multi with Soy, Lutein, Black Cohosh and Cranberry, Disp: , Rfl: , 02/28/2025 Morning escitalopram oxalate (LEXAPRO) 20 mg tablet, Take 20 mg by mouth once daily., Disp: , Rfl: , 02/28/2025 Morning triamterene/hydrochlorothi azid (DYAZIDE ORAL), Take 0.5 mg by mouth once daily., Disp: , Rfl: , 02/28/2025 Morning metoprolol succinate ER (TOPROL XL) 50 mg 24 hr tablet, Take 50 mg by mouth two times a day., Disp: , Rfl: , 02/28/2025 Morning omeprazole (PRILOSEC) 20 mg capsule, Take 20 mg by mouth two times a day., Disp: , Rfl: , 02/28/2025 Morning brexpiprazole (REXULTI) 2 mg tablet, Take 2 mg by mouth once daily., Disp: , Rfl: , 02/28/2025 Morning clonazePAM (KLONOPIN) 2 mg tablet, Take 1 mg by mouth at bedtime as needed for anxiety. Take 1 to 2 mg, Disp: , Rfl: , 02/27/2025 Bedtime rosuvastatin (CRESTOR) 10 mg tablet, Take 10 mg by mouth daily at bedtime., Disp: , Rfl: , 02/27/2025 Bedtime FLUoxetine (PROZAC) 20 mg capsule, Take 20 mg by mouth once daily., Disp: , Rfl: buPROPion XL (WELLBUTRIN XL) 300 mg 24 hr tablet, , Disp: , Rfl: rosuvastatin (CRESTOR) 5 mg tablet, Take 5 mg by mouth once daily., Disp: , Rfl: metoprolol tartrate, short acting, (LOPRESSOR) 50 mg tablet, Take 50 mg by mouth once daily., Disp: , Rfl: valACYclovir (VALTREX) 500 mg tablet, Take 500 mg by mouth once daily., Disp: , Rfl: , 02/27/2025 Bedtime Norethindrone Acet-Ethinyl Est 1.5-30 mg-mcg tab, Take 1 tablet by mouth once daily., Disp: , Rfl: Social History Tobacco Use Smoking status: Former Smokeless tobacco: Never Vaping Use Vaping status: Some Days Substances: Nicotine Devices: Disposable Substance Use Topics Alcohol use: Yes Comment: occasionally x1 every other week Drug use: Never Employer And Job Title: None on file Years Of Education Completed: Not specified Marital Status: Single REVIEW OF SYSTEMS: The following systems were reviewed with the patient, and are unremarkable other than as described below. SYSTEMIC: No fever, chills, or change in weight or appetite HEENT: No recent change in vision or hearing. GI: No recent nausea, vomiting or diarrhea. : No recent hematuria or dysuria. SKIN: No recent itching or eruption. PSYCH: No recent active anxiety or depression. HEMATOLOGY/ONCOLOGY: No recent diagnosis of bleeding or cancer. ENDOCRINE: No recent diagnosis of DM or thyroid disease. RHEUMATOLOGY: No recent active connective tissue disease. Objective Vital Signs (Last 24hrs min/max): BP 124/87 Pulse 87 Temp 36.8 ?C (98.2 ?F) (Temporal) Resp 21 Ht 157.5 cm (5' 2) Wt 90.3 kg (199 lb 1.2 oz) SpO2 98% BMI 36.41 kg/m? PHYSICAL EXAM: NEUROLOGICAL: Alert oriented x3, PERRL, EOMI, VFF, face symmetric, speech clear and fluent, follows commands, VAZQUEZ 5/5, sensation intact to light touch GCS: Eyes: 4. Spontaneous Verbal: 5: Oriented Motor: 6: Obeys Motor commands Total: 15 CV: RRR Pulm: CTA unlabored on NC GI/: soft +BS Skin/Extremities: Edema- No Peripheral pulses- Present all extremities Wounds/Drsgs- head dressing c/d/i Breakdown- No DATA: Diagnostic tests reviewed for today's visit: Most recent labs and imaging results. Lines, Drains, and Airways Line Duration Arterial Line/Sheath 03/06/25 Right Radial <1 day Peripheral 03/06/25 0545 [facility] Short Left Antecubital 22 Gauge <1 day Peripheral 03/06/25 1009 Left Hand 18 Gauge <1 day Drain Duration Indwelling Urinary Catheter 03/06/25 1000 Rucker 16 Fr <1 day PERSONAL INVOLVEMENT IN CARE: Reviewing initi (more content not included)... Normal [facility] Magnesium SerPl-mCncon 03-06 Magnesium [Mass/Vol] 2.0 mg/dL Normal 1.7-2.3 [facility] Comment on above: Order Comment: Speci men Type: BLOOD SPECIMENOrdering Facility: [facility] Address: [facility] [place] [address] Performed By: #### 3 016-3, 69324-3, 46453-4, 2777-1 ####[facility] [id number] [address] [place] OPERATIVE NOon 03-06-2025 OPERATIVE NO HNO ID: [id number] Author: FABRIZIO AMBROCIO MD Service: Neurosurgery Author Type: Physician Type: Operative Report Filed: 03/22/2025 08:37 Note Text: OPERATIVE/PROCEDURE REPORT LOG ID: [id number] SURGERY/PROCEDURE DATE: 03/06/2025 INCISION/PROCEDURE START TIME: 10:16 AM INCISION CLOSE/PROCEDURE END TIME: 3:32 PM SURGEON(S)/PROCEDURALIST(S ) AND FOOD AND BEVERAGE DIRECTOR(S): Surgeons and Role: * Fabrizio Ambrocio MD - Primary * Mavis Cobos MD Supervisor [employer] Physician Supervisor [employer]: Rahul Whitfield PA-C Adoption Social Worker: Mk Arndt APRN.CNP SURGERY/PROCEDURE(S): Right frontal pterional craniotomy microscopic excision of supratentorial subfrontal olfactory groove meningioma Navigation assisted the procedure BrainLab 3. 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 It measured 3.7 cm in its widest diameter. It was in an intimate relationship to anterior cerebral arteries and the olfactory tracts on both sides. Because this was a complex tumor that requires lengthy dissection and protection of vital structures I recruited Dr. Cobos as co-surgeon to participate in the operation. I informed the patient of the seriousness of the problem and the discussed the operative procedure with her including risks of hemiplegia loss of vision and loss of sense of smell as well as infection hematoma and she understood the procedure and gave us verbal and written consent. After the huddle in the holding area patient was brought to the operating room and generalendotracheal anesthesia was induced. In the supine position the head wassecured in the Vital 3 pin head clamp and patient was registered onto the BrainLab system using scalp surface markings. Partial shave of the right frontal area was performed and we outlined a scalp incision carried from the midline curved towards the temporal area in front of the tragus. The incision site was guided by the navigation system. Surgical timeout was taken. Patient was given 2 g of Ancef and Rucker catheter was inserted as well as an arterial line. Skin incision was infiltrated with 1% Xylocaine with epinephrine and made throughout the layers of the scalp. Hemostasis was secured with Elenita clips. Temporalis fascia and muscle and epi cranium were incised with the cutting current and from the bone and held with spring retractors. A pterional craniotomy with 3 bur holes was outlined and guided by the navigation system. Underlying dura was bone flap was elevated with a craniotome. I drilled the lateral part of the sphenoid wing to gain low exposure in the frontal region. Patient was given 40 mg of Lasix then 40 g of mannitol to relaxthe brain. Dura was opened and semicircular fashion and retracted anteriorly. This exposed the frontal and temporal lobe in the sylvian fissure. I placed a self-retaining Khan retractor underneath the frontal lobe until I reached the arachnoid over the right optic nerve. This was opened and cerebrospinal fluid was released and slowly the brain started relaxation. Microscope was brought to the field and micro dissection was started by what appeared to be a very widened olfactory tract on the right side over a pink-smith appearing tumor having surface characteristics of a meningioma. The micro dissection was initiated and continued until total excision of the tumor. With gentle retraction using the Khan retractor and cottonoids we worked a plane around the superior aspect of the lesion and the lateral aspect of the lesion and started the dissection slowly. The capsule of the tumor was coagulated with bipolar cautery and entered with an 11 blade following which multiple biopsies were taken from the inside of the tumor and given to pathology as frozen section. The report of the frozen section was consistent with meningioma. We alternated different techniques in removing the inside of the tumor using the Cavitron ultrasonic aspirator as well as suction and bipolar cautery the capsule gradually from the surrounding brain. We were able to work a plane around the dome of the lesion towards the anterior cerebral artery it from the subfrontal cortex and gradually removing more soft tumor from the inside of the lesion which was quite vascular coagulating bipolar some of the arterial supply from the planum sphenoid alley and the cribriform plate. We reached to the left sided portion of the tumor under the falx which was partly sectioned to gain access to removal of the tumor from what we thought was its origin in the left olfactory groove. We were finally able to elevate the tumor from its attachment t (more content not included)... Normal [facility] Pathology biopsy report Mike (Tiss)on 03-06-2025 AMENDED REPORT DETAIL Normal [facility] Comment on above: Order Comment: Speci devon Type: TISSUE SPECIMENOrdering Facility: [facility] Address: [address] [place] [address] Result Comment: Amen ded: 03/14/2025 8:13 AM This report is being amended to reflect a change in the diagnostic field. The original report did not include both parts A and B, which has been corrected. There is no change to the actual diagnosis. Dr. Ambrocio was notified of this change by StartX message on 03/14/2025. Edited results: Previously reported on 03/11/2025 at 3:13 PM EDT. Performed By: #### 6 6121-5 ####[facility] [id number] [address] AP DISCLAIMER Normal [facility] Comment on above: Order Comment: Speci devon Type: TISSUE SPECIMENOrdering Facility: [facility] Address: [address] [place] [address] Result Comment: Naheed donahue Developed Test (LDT) Disclaimer: Performance characteristics of immunohistochemical, immunofluorescent, and chromogenic in-situ hybridization tests have been determined by the performing laboratory within [facility] Umair Raul [facility] Path[facility] and Laboratory Medicine Department ([facility], [facility], [facility], [facility], [facility], [facility], or [facility]) in a manner consistent with CLIA requirements. One or more of these tests may not have been cleared or approved by the FDA. [facility] is regulated under CLIA as qualified to perform high-complexity testing. These tests are used for clinical purposes. These should not be regarded as investigational or for research. Positive and negative controls stain appropriately. Performed By: #### 6 6121-5 ####[facility] LABORATORYIA [id number] [address] [place] CASE REPORT Normal [facility] Comment on above: Order Comment: Speci men Type: TISSUE SPECIMENOrdering Facility: [facility] Address: [address] [place] [address] Result Comment: Surg ica Pathology Report Case: [id number] Authorizing Provider: Fabrizio Ambrocio MD Collected: 03/06/2025 11:41 AM Ordering Location: [facility] Received: 03/06/2025 11:48 AM Pathologist: Godwin Em MD Intraop: Mike Puckett MD Specimens: A) - Brain, Resection, Brain tumor B) - Brain, Resection, tumor Performed By: #### 6 6121-5 ####[facility] LABORATORYCLIA [id number] [address] CLINICAL HISTORY Normal [facility] Comment on above: Order Comment: Speci men Type: TISSUE SPECIMENOrdering Facility: [facility] Address: [address] [place] [address] Result Comment: Pre- op diagnosis: Brain mass [G93.89] Performed By: #### 6 6121-5 ####[facility] LABORATORYCLIA [id number] [address] DIAGNOSIS COMMENT Normal [facility] Comment on above: Order Comment: Speci men Type: TISSUE SPECIMENOrdering Facility: [facility] Address: [address] [place] [address] Result Comment: Immu nohistochemical stains performed on Part B reveal the tumor to be positive for NADIA and show a Ki-67 labeling index of <4%. This case was reviewed by Dr. Mike Puckett who agrees with this assessment. Corrected results: Previously reported on 03/11/2025 at 3:13 PM EDT. Performed By: #### 6 6121-5 ####[facility] LABORATORYCLIA [id number] [address] FINAL DIAGNOSIS Normal [facility] Comment on above: Order Comment: Speci men Type: TISSUE SPECIMENOrdering Facility: [facility] Address: [address] [place] [address] Result Comment: Sis Galaviz Brain tumor, resection: - Meningioma, transitional type, WHO Grade 1. See comment. Amendment electronically signed by Godwin Em MD on 03/14/2025 at 0815 EDT at 1513 EDT Corrected results: Previously reported on 03/11/2025 at 3:13 PM EDT. Performed By: #### 6 6121-5 ####[facility] LABORATORYCLIA [id number] [address] FINAL PERFORMING LAB Normal [facility] Comment on above: Order Comment: Speci men Type: TISSUE SPECIMENOrdering Facility: [facility] Address: [address] [place] [address] Result Comment: Diag nostic interpretation performed at: [facility], [address] [place] [address] CLIA# [id number] Field Research Assistant: Godwin Em MD Performed By: #### 6 6121-5 ####[facility] LABORATORYCLIA [id number] [address] GROSS DESCRIPTION Normal [facility] Comment on above: Order Comment: Speci men Type: TISSUE SPECIMENOrdering Facility: [facility] Address: [address] [place] [address] Result Comment: A. B rain, Resection Received fresh for intraoperative consultation labeled brain tumor are multiple pink-gibson soft tissue fragments aggregating to 0.9 x 0.4 x 0.2 cm. A touch prep is performed. Half of the tissue is submitted in FS A1 and the remaining Is submitted in A2. Gross examination performed at [facility], [address] [place] [address] CLIA#[id number] OLS March 06, 2025 12:32 PM B. Brain, Resection Received in formalin labeled brain tumor is a irregular quezada-pink, friable, soft tissue fragment measuring 2.8 x 2.5 x 1.7 cm and weighing 3.8 g. The specimen is submitted entirely in B1-B3. Gross examination performed at [facility], [address] [place] [address] CLIA#[id number] OLS March 07, 2025 8:06 AM Performed By: #### 6 6121-5 ####[facility] LABORATORYCLIA [id number] [address] STATES OF [facility] INTRAOPERATIVE DIAGNOSIS Normal [facility] Comment on above: Order Comment: Speci men Type: TISSUE SPECIMENOrdering Facility: [facility] Address: [address] [place] [address] Result Comment: AMaki sykes, Resection FS A 1+ touch prep: Brain tumor: Meningioma (Dr. Parekh/Dr. Puckett) Intraoperative examination performed at [facility], [address] [place] [address] CLIA# [id number] Performed By: #### 6 6121-5 ####[facility] LABORATORYCLIA [id number] [address] STATES OF [facility] Phosphate SerPl-mCncon 03-06 Phosphate [Mass/Vol] 6.8 mg/dL High 2.7-4.8 [facility] Comment on above: Order Comment: Speci men Type: BLOOD SPECIMENOrdering Facility: [facility] Address: [address] [place] [address] Performed By: #### 3 016-3, 73492-6, 57324-3, 2777-1 ####[facility] LABORATORYCLIA [id number] [address] STATES OF [facility] STAPHYLOCOCCUS AUREUS AND MR SA SCREEN, PCR, NASALon 03-06-2025 S. aureus and MRSA panel GIANCARLO+probe (Nose) Methicillin-SUSCEPTIBLE Staphylococcus aureus Detected Abnormal Not Detected [facility] Comment on above: Order Comment: Speci men Type: SWABOrdering Facility: [facility] Address: [address] [place] [address] Performed By: #### S APCR ####[facility] LABORATORYCLIA [id number] [place] [address] [place] TSH SerPl-aCncon 03-06-2025 TSH Qn 0.485 m[IU]/L Normal 0.270-4.20 0 [facility] Comment on above: Order Comment: Speci men Type: BLOOD SPECIMENOrdering Facility: [facility] Address: [address] [place] [address] Performed By: #### 3 016-3, 88864-3, 71751-9, 2777-1 ####[facility] LABORATORYCLIA [id number] [place] [address] [facility] ALLIED HEALTHon 03-05-2025 ALLIED HEALTH HNO ID: [id number] Author: MARIE DIAZ Chaplain Service: Spiritual Care Author Type: Corporate General Manager Type: Allied Health Filed: 03/05/2025 21:29 Note Text: SPIRITUAL CARE PROGRESS NOTE SERVICE DATE: 03/05/2025 SERVICE TIME: 8:15pm Pre Surgery visit To contact the Spiritual Care Department: Please call [phone]. SIGNATURE: Chaplain Alfredito PATIENT NAME: Sierra Patton DATE: March 05, 2025 TIME: 9:27 PM PAGER/CONTACT #: [phone] Normal [facility] CONSULT PROGon 03-05-2025 CONSULT PROG HNO ID: [id number] Author: TORSTEN HALEY APRN.CNP Service: Neurosurgery Author Type: Nurse Practitioner Type: Consult Progress Note Filed: 03/05/2025 11:39 Note Text: Neurosurgery Progress Note SERVICE DATE: 03/05/2025 SUBJECTIVE: NAEON. Patient has no complaints this am; denies headache, dizziness, visual changes or n/v. OBJECTIVE: Vitals: Temp (24hrs), Av.4 ?C (97.6 ?F), Min:36.3 ?C (97.3 ?F), Max:36.5 ?C (97.7 ?F) BP 125/66 Pulse 84 Temp 36.5 ?C (97.7 ?F) (Oral) Resp 18 Ht 157.5 cm (5' 2) Wt 90.3 kg (199 lb 1.2 oz) SpO2 94% BMI 36.41 kg/m? O2 Therapy: Room Air IANDO: MEDICATIONS Current Facility-Administered Medications Medication Dose Route Frequency morphine 2 mg injection 2 mg INTRAVENOUS q 4 H PRN oxyCODONE IR 5 mg tab(s) (ROXICODONE) 5 mg ORAL q 4 H PRN dexAMETHasone 4 mg tab(s) (DECADRON) 4 mg ORAL q 6 H heparin 5,000 Units injection 5,000 Units SUBCUTANEOUS q 12 H nicotine 14 mg/24 hr 1 patch (NICODERM) 1 patch TRANSDERMAL DAILY And nicotine -- REMOVE patch OTHER DAILY And nicotine - verify patch OTHER q 8 H clonazePAM 1 mg tab(s) (KlonoPIN) 1 mg ORAL q 12 H PRN acetaminophen 325-650 mg tab(s) (TYLENOL) 325-650 mg ORAL q 6 H PRN brexpiprazole 2 mg tab(s) (REXULTI) 2 mg ORAL DAILY escitalopram oxalate 20 mg tab(s) (LEXAPRO) 20 mg ORAL DAILY metoprolol succinate ER 50 mg tab(s) (TOPROL XL) 50 mg ORAL BID rosuvastatin 10 mg tab(s) (CRESTOR) 10 mg ORAL AT BEDTIME NaCl 0.9% iv flush bag 20 mL INTRAVENOUS PRN ondansetron (PF) 4 mg injection (ZOFRAN) 4 mg INTRAVENOUS q [address] 20 mg tab(s) (PROTONIX) 20 mg ORAL BID AC (0600/1600) levETIRAcetam 500 mg tab(s) (KEPPRA) 500 mg ORAL BID Labs: Recent Labs 03/03/25 0504 NA 140 K 3.9 CHLOR 102 CO2 27 BUN 29* CREAT 1.15* GLUC 101* ANION 11 CA 8.8 MG 2.3 WBC 9.27 HB 11.6 HCT 35.6* PLT 309 Exam: GENERAL: Awake and alert; NAD; cooperative; pleasant NEURO: Orientedx3; speech clear and fluent; VAZQUEZ; no arm drift STRENGTH: 5/5 throughout HEENT: Normocephalic; atraumatic; perrl/eomi; no facial droop LUNGS: Unlabored breathing CARDIAC: Rate and rhythm as above ABDOMEN: Soft, non-tender, non-distended EXTREMITIES: No deformities, No edema SKIN: Skin color normal; Temperature normal; no rashes or lesions ASSESSMENT AND PLAN: Active Hospital Problems Diagnosis Date Noted Brain mass 03/01/2025 Ms. Patton is a 54 y/o female who presented for brain mass after her PCP ordered a CT head in which the mass was noted. -neuro as above- intact -MRI reviewed -plan for tumor resection tomorrow with Dr. Ambrocio -regular diet -Dex 3slB8ae -Keppra 500mg bid for seizure ppx Parts of this note may have been copied from one of my previous notes and remain pertinent. The documentation has been reviewed and edited as necessary to support the clinical decision making for today's visit. SIGNATURE: Torsten Haley APRN.HISTOLOGY TEACHER PATIENT NAME: Sierra Patton DATE: March 05, 2025 TIME: 11:37 AM Pager: [phone] Normal [facility] PT panel Coag (PPP)on 2024 INR Coag (PPP) [Relative time] 1.0 {INR} Normal 0.9-1.3 [facility] Comment on above: Order Comment: Speci men Type: BLOOD SPECIMENOrdering Facility: [facility] Address: [address] [place] [address] Result Comment: Kristin min K Antagonist (VKA) Therapeutic Range: INR 2 to 3 (Target INR of 2.5) Note: For patients treated with VKA drugs, such as warfarin, the [employer] 2012 Guideline recommends a therapeutic INR range of 2 to 3 (target INR of 2.5). This recommendation includes high-risk patients with antiphospholipid syndrome with previous arterial or venous thromboembolism, current-generation mechanical or bioprosthetic aortic heart valve replacement. Note: Patients with mechanical aortic valve replacement and additional risk factors for thromboembolic events (atrial fibrillation, previous thromboembolism, LV dysfunction, hypercoagulable conditions) or an older generation mechanical AVR (i.e., ball in-Cage) or any mechanical MVR should have a INR therapeutic range of 2.5 to 3.5 (target INR of 3). Conor GH, et al. Chest 2012, 141:7S-47S Kin RA, et al. [facility] 2017, 70: 252-289 Performed By: #### 3 4528-0, 20998-8 ####[facility] LABORATORYCLIA [id number] [address] [place] PT Coag (PPP) [Time] 11.2 s Normal 9.7-13.0 [facility] Comment on above: Order Comment: Speci men Type: BLOOD SPECIMENOrdering Facility: [facility] Address: [address] [place] [address] Performed By: #### 3 4528-0, 61419-8 ####[facility] LABORATORYCLIA [id number] [address] OF [facility] TYPE + SCREENon 03-05-2025 ABO O Normal [facility] Comment on above: Order Comment: Speci men Type: BLOOD SPECIMENOrdering Facility: [facility] Address: [address] [place] [address] Performed By: #### T SCR ####[facility] BLOOD BANKCLIA [id number] [address] [place] Rh Nom (Bld) Negative Normal [facility] Comment on above: Order Comment: Speci men Type: BLOOD SPECIMENOrdering Facility: [facility] Address: [address] [place] [address] Performed By: #### T SCR ####[facility] BLOOD BANKCLIA [id number] [address] TYPE AND SCREEN EXPIRATION 03/08/2025 23:59 Normal [facility] Comment on above: Order Comment: Speci men Type: BLOOD SPECIMENOrdering Facility: [facility] Address: [address] [place] [address] Performed By: #### T SCR ####[facility] BLOOD BANKCLIA [id number] [address] [place] aPTT PPPon 03-05-2025 aPTT Coag (PPP) [Time] 27.2 s Normal 23.0-32.[address] [facility] Comment on above: Order Comment: Speci men Type: BLOOD SPECIMENOrdering Facility: [facility] Address: [facility] [place] [address] Performed By: #### 3 4528-0, 13488-6 ####[facility] LABORATORYCLIA [id number] [address] OF [place] CONSULT PROGon 03-04-2025 CONSULT PROG HNO ID: [id number] Author: TORSTEN HALEY APRN.HISTOLOGY TEACHER Service: Neurosurgery Author Type: Nurse Practitioner Type: Consult Progress Note Filed: 03/04/2025 12:09 Note Text: Neurosurgery Progress Note SERVICE DATE: 03/04/2025 SUBJECTIVE: NAEON. Endorses slight headache, denies new visual changes. Does endorse crunching sound when closes eyes and that this has happened before. OBJECTIVE: Vitals: Temp (24hrs), Av.4 ?C (97.6 ?F), Min:36.3 ?C (97.4 ?F), Max:36.7 ?C (98.1 ?F) BP 110/69 Pulse 85 Temp 36.3 ?C (97.4 ?F) (Oral) Resp 18 Ht 157.5 cm (5' 2) Wt 90.3 kg (199 lb 1.2 oz) SpO2 93% BMI 36.41 kg/m? O2 Therapy: Room Air IANDO: MEDICATIONS Current Facility-Administered Medications Medication Dose Route Frequency morphine 2 mg injection 2 mg INTRAVENOUS q 4 H PRN oxyCODONE IR 5 mg tab(s) (ROXICODONE) 5 mg ORAL q 4 H PRN dexAMETHasone 4 mg tab(s) (DECADRON) 4 mg ORAL q 6 H heparin 5,000 Units injection 5,000 Units SUBCUTANEOUS q 12 H nicotine 14 mg/24 hr 1 patch (NICODERM) 1 patch TRANSDERMAL DAILY And nicotine -- REMOVE patch OTHER DAILY And nicotine - verify patch OTHER q 8 H clonazePAM 1 mg tab(s) (KlonoPIN) 1 mg ORAL q 12 H PRN acetaminophen 325-650 mg tab(s) (TYLENOL) 325-650 mg ORAL q 6 H PRN brexpiprazole 2 mg tab(s) (REXULTI) 2 mg ORAL DAILY escitalopram oxalate 20 mg tab(s) (LEXAPRO) 20 mg ORAL DAILY metoprolol succinate ER 50 mg tab(s) (TOPROL XL) 50 mg ORAL BID rosuvastatin 10 mg tab(s) (CRESTOR) 10 mg ORAL AT BEDTIME triamterene-hydroCHLOROthi azide 37.5-25 mg 1 tablet (MAXZIDE-25) 1 tablet ORAL DAILY NaCl 0.9% iv flush bag 20 mL INTRAVENOUS PRN ondansetron (PF) 4 mg injection (ZOFRAN) 4 mg INTRAVENOUS q [address] 20 mg tab(s) (PROTONIX) 20 mg ORAL BID AC (0600/1599) levETIRAcetam 500 mg tab(s) (KEPPRA) 500 mg ORAL BID Labs: Recent Labs 03/03/25 0504 NA 140 K 3.9 CHLOR 102 CO2 27 BUN 29* CREAT 1.15* GLUC 101* ANION 11 CA 8.8 MG 2.3 WBC 9.27 HB 11.6 HCT 35.6* PLT 309 Exam: GENERAL: Awake and alert; NAD; cooperative; pleasant NEURO: Orientedx3; speech clear and fluent; VAZQUEZ; no arm drift STRENGTH: 5/5 throughout HEENT: Normocephalic; atraumatic; perrl/eomi; no facial droop LUNGS: Unlabored breathing CARDIAC: Rate and rhythm as above ABDOMEN: Soft, non-tender, non-distended EXTREMITIES: No deformities, No edema SKIN: Skin color normal; Temperature normal; no rashes or lesions ASSESSMENT AND PLAN: Active Hospital Problems Diagnosis Date Noted Brain mass 03/01/2025 Ms. Patton is a 54 y/o female who presented for brain mass after her PCP ordered a CT head in which the mass was noted. -neuro as above- intact -MRI reviewed -plan for tumor resection Tuesday with Dr. Ambrocio -regular diet -PT/OT Parts of this note may have been copied from one of my previous notes and remain pertinent. The documentation has been reviewed and edited as necessary to support the clinical decision making for today's visit. SIGNATURE: Torsten Haley APRN.SWATI PATIENT NAME: Sierra Patton DATE: March 04, 2025 TIME: 9:52 AM Pager: [phone] Normal [facility] Basic metabolic 2000 panelon 03-03-2025 Anion gap [Moles/Vol] 11 mmol/L Normal 8-15 [facility] Comment on above: Order Comment: Speci men Type: BLOOD SPECIMENOrdering Facility: [facility] Address: [address] [place] [address] Performed By: #### 1 9123-9, 73185-5 ####[facility] LABORATORYCLIA [id number] [place] [address] [place] Calcium [Mass/Vol] 8.8 mg/dL Normal 8.5-10.2 [facility] Comment on above: Order Comment: Speci men Type: BLOOD SPECIMENOrdering Facility: [facility] Address: [address] [place] [address] Performed By: #### 1 9123-9, 43348-5 ####[facility] LABORATORYCLIA [id number] [place] [address] [place] Chloride [Moles/Vol] 102 mmol/L Normal 98-107 [facility] Comment on above: Order Comment: Speci men Type: BLOOD SPECIMENOrdering Facility: [facility] Address: [address] [place] [address] Performed By: #### 1 9123-9, 65127-5 ####[facility] LABORATORYCLIA [id number] [address] [place] CO2 [Moles/Vol] 27 mmol/L Normal 22-30 [facility] Comment on above: Order Comment: Speci men Type: BLOOD SPECIMENOrdering Facility: [facility] Address: [address] [place] [address] Performed By: #### 1 9123-9, 85243-9 ####[facility] LABORATORYCLIA [id number] [address] [place] Creatinine [Mass/Vol] 1.15 mg/dL High 0.58-0.96 [facility] Comment on above: Order Comment: Speci men Type: BLOOD SPECIMENOrdering Facility: [facility] Address: [address] [place] [address] Performed By: #### 1 9123-9, 24913-3 ####[facility] LABORATORYCLIA [id number] [address] [place] Creatinine and Glomerular filtration rate.predicted panel (S/P/Bld) 57 mL/min/1.73m??? Low >=60 [facility] Comment on above: Order Comment: Speci men Type: BLOOD SPECIMENOrdering Facility: [facility] Address: [address] [place] [address] Result Comment: Eleanor mated Glomerular Filtration Rate (eGFR) is calculated using the 2020 CKD-EPI creatinine equation. This equation utilizes serum creatinine, sex, and age as parameters. The creatinine assay has traceable calibration to isotope dilution-mass spectrometry. Refer to KDIGO guidelines for clinical interpretation. In patients with unstable renal function, e.g. those with acute kidney injury, the eGFR may not accurately reflect actual GFR. Performed By: #### 1 9123-9, 98644-4 ####[facility] LABORATORYCLIA [id number] [place] [id number] [place] Glucose [Mass/Vol] 101 mg/dL High 74-99 [facility] Comment on above: Order Comment: Tiffanie osorio Type: BLOOD SPECIMENOrdering Facility: [facility] Address: [address] [place] [address] Result Comment: The [place] Diabetes Association (ADA) provides guidance for cutoff values for fasting glucose and random glucose. The ADA defines fasting as no caloric intake for at least 8 hours. Fasting plasma glucose results between 100 to 125 mg/dL indicate increased risk for diabetes (prediabetes). Fasting plasma glucose results greater than or equal to 126 mg/dL meet the criteria for diagnosis of diabetes. In the absence of unequivocal hyperglycemia, results should be confirmed by repeat testing. In a patient with classic symptoms of hyperglycemia or hyperglycemic crisis, random plasma glucose results greater than or equal to 200 mg/dL meet the criteria for diagnosis of diabetes. Reference: Standards of Medical Care in Diabetes 2016, [place] Diabetes Association. Diabetes Care. 2016.39(Suppl 1). Performed By: #### 1 9123-9, 30175-2 ####[facility] LABORATORYCLIA [id number] [place] [id number] [place] Potassium [Moles/Vol] 3.9 mmol/L Normal 3.7-5.1 [facility] Comment on above: Order Comment: Tiffanie osorio Type: BLOOD SPECIMENOrdering Facility: [facility] Address: [address] [place] [id number] Performed By: #### 1 9123-9, 25909-1 ####[facility] LABORATORYCLIA [id number] [address] [place] [facility] Sodium [Moles/Vol] 140 mmol/L Normal 136-144 [facility] Comment on above: Order Comment: Speci men Type: BLOOD SPECIMENOrdering Facility: [facility] Address: [address] [place] [address] Performed By: #### 1 9123-9, 07865-7 ####[facility] LABORATORYCLIA [id number] [address] [place] [facility] Urea nitrogen [Mass/Vol] 29 mg/dL High 7-21 [facility] Comment on above: Order Comment: Speci men Type: BLOOD SPECIMENOrdering Facility: [facility] Address: [address] [place] [address] Performed By: #### 1 9123-9, 34842-6 ####[facility] LABORATORYCLIA [id number] [address] CBC W Auto Differential pane l (Bld)on 03-03-2025 Basophils (Bld) [#/Vol] 0.05 10*3/uL Normal <0.11 [facility] Comment on above: Order Comment: Speci men Type: BLOOD SPECIMENOrdering Facility: [facility] Address: [address] [place] [address] Performed By: #### 5 7021-8 ####[facility] LABORATORYCLIA [id number] [address] Basophils/100 WBC (Bld) 0.5 % Normal A [facility] Comment on above: Order Comment: Speci men Type: BLOOD SPECIMENOrdering Facility: [facility] Address: [address] [place] [address] Performed By: #### 5 7021-8 ####[facility] LABORATORYCLIA [id number] [address] Differential cell count method Nom (Bld) Auto Normal [facility] Comment on above: Order Comment: Speci men Type: BLOOD SPECIMENOrdering Facility: [facility] Address: [address] [place] [address] Performed By: #### 5 7021-8 ####[facility] LABORATORYCLIA [id number] [address] Eosinophils (Bld) [#/Vol] 0.13 10*3/uL Normal <0.46 [facility] Comment on above: Order Comment: Speci men Type: BLOOD SPECIMENOrdering Facility: [facility] Address: [address] [place] [address] Performed By: #### 5 7021-8 ####[facility] LABORATORYCLIA [id number] [address] Eosinophils/100 WBC (Bld) 1.4 % Normal [facility] Comment on above: Order Comment: Speci men Type: BLOOD SPECIMENOrdering Facility: [facility] Address: [address] [place] [address] Performed By: #### 5 7021-8 ####[facility] LABORATORYCLIA [id number] [address] Erythrocyte distribution width (RBC) [Ratio] 14.9 % Normal 11.5-15.0 [facility] Comment on above: Order Comment: Speci men Type: BLOOD SPECIMENOrdering Facility: [facility] Address: [address] [place] [address] Performed By: #### 5 7021-8 ####[facility] LABORATORYCLIA [id number] [address] Hematocrit (Bld) [Volume fraction] 35.6 % Low 36.0-46.0 [facility] Comment on above: Order Comment: Speci men Type: BLOOD SPECIMENOrdering Facility: [facility] Address: [address] [place] [address] Performed By: #### 5 7021-8 ####[facility] LABORATORYCLIA [id number] [address] Hemoglobin (Bld) [Mass/Vol] 11.6 g/dL Normal 11.5-15.5 [facility] Comment on above: Order Comment: Speci men Type: BLOOD SPECIMENOrdering Facility: [facility] Address: [address] [place] [address] Performed By: #### 5 7021-8 ####[facility] LABORATORYCLIA [id number] [place] [address] [place] Immature granulocytes (Bld) [#/Vol] 0.21 10*3/uL High <0.10 [facility] Comment on above: Order Comment: Speci men Type: BLOOD SPECIMENOrdering Facility: [facility] Address: [address] [place] [address] Performed By: #### 5 7021-8 ####[facility] LABORATORYCLIA [id number] [place] [address] [place] Immature granulocytes/100 WBC (Bld) 2.3 % Normal [facility] Comment on above: Order Comment: Speci men Type: BLOOD SPECIMENOrdering Facility: [facility] Address: [address] [place] [address] Performed By: #### 5 7021-8 ####[facility] LABORATORYCLIA [id number] [place] [address] [place] Lymphocytes (Bld) [#/Vol] 2.99 10*3/uL Normal 1.00-4.00 [facility] Comment on above: Order Comment: Speci men Type: BLOOD SPECIMENOrdering Facility: [facility] Address: [address] [place] [address] Performed By: #### 5 7021-8 ####[facility] LABORATORYCLIA [id number] [place] [address] [place] Lymphocytes/100 WBC (Bld) 32.3 % Normal [facility] Comment on above: Order Comment: Speci men Type: BLOOD SPECIMENOrdering Facility: [facility] Address: [address] [place] [address] Performed By: #### 5 7021-8 ####[facility] LABORATORYCLIA [id number] [address] MCH (RBC) [Entitic mass] 28.1 pg Normal 26.0-34.0 [facility] Comment on above: Order Comment: Speci men Type: BLOOD SPECIMENOrdering Facility: [facility] Address: [address] [place] [address] Performed By: #### 5 7021-8 ####[facility] LABORATORYCLIA [id number] [address] [place] MCHC (RBC) [Mass/Vol] 32.6 g/dL Normal 30.5-36.0 [facility] Comment on above: Order Comment: Speci men Type: BLOOD SPECIMENOrdering Facility: [facility] Address: [address] [place] [address] Performed By: #### 5 7021-8 ####[facility] LABORATORYCLIA [id number] [address] MCV (RBC) [Entitic vol] 86.2 fL Normal 80.0-100.0 [facility] Comment on above: Order Comment: Speci men Type: BLOOD SPECIMENOrdering Facility: [facility] Address: [address] [place] [address] Performed By: #### 5 7021-8 ####[facility] LABORATORYCLIA [id number] [address] OF [facility] Monocytes (Bld) [#/Vol] 0.56 10*3/uL Normal <0.87 [facility] Comment on above: Order Comment: Speci men Type: BLOOD SPECIMENOrdering Facility: [facility] Address: [address] [place] [address] Performed By: #### 5 7021-8 ####[facility] LABORATORYCLIA [id number] [address] Monocytes/100 WBC (Bld) 6.0 % Normal [facility] Comment on above: Order Comment: Speci men Type: BLOOD SPECIMENOrdering Facility: [facility] Address: [address] [place] [address] Performed By: #### 5 7021-8 ####[facility] LABORATORYCLIA [id number] [place] [address] [place] Neutrophils (Bld) [#/Vol] 5.33 10*3/uL Normal 1.45-7.50 [facility] Comment on above: Order Comment: Speci men Type: BLOOD SPECIMENOrdering Facility: [facility] Address: [address] [place] [address] Performed By: #### 5 7021-8 ####[facility] LABORATORYCLIA [id number] [address] [place] Neutrophils/100 WBC (Bld) 57.5 % Normal [facility] Comment on above: Order Comment: Speci men Type: BLOOD SPECIMENOrdering Facility: [facility] Address: [address] [place] [address] Performed By: #### 5 7021-8 ####[facility] LABORATORYCLIA [id number] [address] [place] Nucleated RBC (Bld) [#/Vol] 10*3/uL Normal <0.01 [facility] Comment on above: Order Comment: Speci men Type: BLOOD SPECIMENOrdering Facility: [facility] Address: [address] [place] [address] Performed By: #### 5 7021-8 ####[facility] LABORATORYCLIA [id number] [address] [place] Nucleated RBC/100 WBC (Bld) [Ratio] 0.0 /100 WBC Normal [facility] Comment on above: Order Comment: Speci men Type: BLOOD SPECIMENOrdering Facility: [facility] Address: [address] [place] [address] Performed By: #### 5 7021-8 ####[facility] LABORATORYCLIA [id number] [address] [place] Platelet mean volume (Bld) [Entitic vol] 9.4 fL Normal 9.0-12.7 [facility] Comment on above: Order Comment: Speci men Type: BLOOD SPECIMENOrdering Facility: [facility] Address: [address] [place] [address] Performed By: #### 5 7021-8 ####[facility] LABORATORYCLIA [id number] [address] STATES OF [facility] Platelets (Bld) [#/Vol] 309 10*3/uL Normal 150-400 [facility] Comment on above: Order Comment: Speci men Type: BLOOD SPECIMENOrdering Facility: [facility] Address: [address] [place] [address] Performed By: #### 5 7021-8 ####[facility] LABORATORYCLIA [id number] [address] [place] RBC (Bld) [#/Vol] 4.13 10*6/uL Normal 3.90-5.20 [facility] Comment on above: Order Comment: Speci men Type: BLOOD SPECIMENOrdering Facility: [facility] Address: [address] [place] [address] Performed By: #### 5 7021-8 ####[facility] LABORATORYCLIA [id number] [address] STATES OF [facility] WBC (Bld) [#/Vol] 9.27 10*3/uL Normal 3.70-11.00 [facility] Comment on above: Order Comment: Speci men Type: BLOOD SPECIMENOrdering Facility: [facility] Address: [address] [place] [address] Performed By: #### 5 7021-8 ####[facility] LABORATORYCLIA [id number] [address] [place] Magnesium SerPl-mCncon 03-03 Magnesium [Mass/Vol] 2.3 mg/dL Normal 1.7-2.3 [facility] Comment on above: Order Comment: Speci men Type: BLOOD SPECIMENOrdering Facility: [facility] Address: [address] [place] [address] Performed By: #### 1 9123-9, 32285-7 ####[facility]ENTERIA [id number] [place] [address] [place] [facility] 03-02-2025 ALLIED HEALTH HNO ID: [id number] Author: LEIDA BANUELOS RT(R) Service: Radiology Author Type: Technologist Type: Allied Health Filed: 03/02/2025 16:08 Note Text: Radiology Service Progress Note PATIENT NAME: Sierra Patton DATE OF SERVICE: March 02, 2025 TIME: 4:08 PM PATIENT IDENTITY VERIFICATION COMPLETED USING TWO (2) IDENTIFIERS: Name and Date of confirmed by patient verbally and Name and Date of confirmed by identification band. FALL SCREENING: Has the patient had 2 falls in the last year or 1 fall with injury or currently using an Ambulatory Assistive Device (Walker, Cane, Wheelchair, Crutches, etc.)? Inpatient: Screened on floor PATIENT GENDER DATA: Assigned female at . status: : No status: NO. PATIENT RELEVANT IMPLANT DATA REVIEWED: Not Applicable PATIENT PRESENTS WITH AN IMPLANTABLE OR ATTACHED MARINE RIGGER: No RADIOLOGY DEPARTMENT: CT; Exam(s) Completed: Brain PERIPHERAL IV DATA: Not applicable SIGNED BY: RT Mariola(R) March 02, 2025 4:08 PM Normal [facility] ALLIED HEALTH HNO ID: [id number] Author: JABIER MARTINEZ ? Service: Radiology Author Type: Radiologist Supervisor [employer] Type: Allied Health Filed: 03/02/2025 10:02 Note Text: Radiology Service Progress Note DATE OF SERVICE: March 02, 2025 TIME: 10:01 AM PATIENT IDENTITY VERIFICATION COMPLETED USING TWO (2) STANDARD IDENTIFIERS: Name and Date of confirmed by patient verbally and Name and Date of confirmed by identification band. FALL SCREENING: Has the patient had 2 falls in the last year or 1 fall with injury or currently using an Ambulatory Assistive Device (Walker, Cane, Wheelchair, Crutches, etc.)? Inpatient: Screened on floor PATIENT GENDER DATA: Assigned female at . status: : No status: NO. PATIENT RELEVANT IMPLANT DATA REVIEWED: Yes PATIENT PRESENTS WITH AN IMPLANTABLE OR ATTACHED MARINE RIGGER: No ALLERGIES: Reviewed and unchanged CONTRAST ALLERGY: NO. EXAM: MRI - CONTRAST TYPE: GROUP II PERIPHERAL IV DATA: Inpatient - refer to LDA documentation RADIOLOGY DEPARTMENT: MR; Exam(s) Completed: Head: Routine Brain [place] MRA Brain Lab protocol. [place] Administered: No SIGNATURE: Jabier Martinez PATIENT NAME: Sierra Patton DATE: March 02, 2025 TIME: 10:01 AM Normal [facility] CT BRAIN WO IVCONon 03-02-[address] BRAIN WO IVCON * * *Final Report* * * DATE OF EXAM: Mar 02 2025 4:10PM [facility] 0504 - CT BRAIN WO IVCON / PROCEDURE REASON: Brain/FILLETER neoplasm, monitor * * * * Physician Interpretation * * * * EXAMINATION: CT BRAIN WO IVCON CLINICAL HISTORY: Mental status change, unknown cause TECHNIQUE: Serial axial images without IV contrast were obtained from the vertex to the foramen magnum. MQ: CTBWO_3 CT Radiation dose: Integrated Dose-Length Product (DLP) for this visit = 781 mGy*cm CT Dose Reduction Employed: Iterative recon COMPARISON: MR brain 03/02/2025 RESULT: Localizer images: No additional findings. Post-operative change: None. Acute change: No evidence of an acute infarct or other acute parenchymal process. Hemorrhage: No evidence of acute intracranial hemorrhage. ECASS hemorrhagic transformation score: Not Applicable Mass Lesion / Mass Effect: Stable large isointense mass arising from the cribriform plate measuring approximately 2.5 x 2.8 cm, likely representing a meningioma. Stable vasogenic edema in the left anterior frontal lobe. Local mass effect. No midline shift Chronic change: None apparent. Parenchyma: There is no significant volume loss. The brain parenchyma is otherwise within normal limits for age. Ventricles: The ventricles are within normal limits of size and configuration for age. Paranasal sinuses and skull base: The visualized paranasal sinuses are grossly clear. The skull base and imaged soft tissues are unremarkable. IMPRESSION: No acute intracranial findings. Stable cribriform plate tumor and adjacent parenchymal edema. Compressor Station Operator: PSCB Transcribe Date/Time: Mar 02 2025 4:13P Dictated by : VNEKATESH WATKINS MD This examination was interpreted and the report reviewed and electronically signed by: VENKATESH WATKINS MD on Mar 02 2025 4:16PM EST [id number] Normal [facility] MRA BRAIN WO IVCONon 025 MRA BRAIN WO IVCON * * *Final Report* * * DATE OF EXAM: Mar 02 2025 10:33AM [facility] 0272 - MRA BRAIN WO IVCON / PROCEDURE REASON: Brain/FILLETER neoplasm, staging * * * * Physician Interpretation * * * * EXAMINATION: MRI BRAIN WO/W IVCON, MRA BRAIN WO IVCON CLINICAL HISTORY: Intracranial mass. TECHNIQUE: Sagittal high-resolution T2 and FLAIR as well as axial pre and postcontrast high-resolution T1 sequences through the brain. Intracranial MRA [id number] with multiplanar reconstructions. MQ: MRBWOW_2 Contrast: 9 mL Elucirem IV COMPARISON: Outside imaging facility CT brain 02/19/2025. MRI BRAIN RESULT: There is a 3.7 x 3.3 x 2.8 cm (AP, transverse, CC) homogeneously enhancing extra-axial dural based mass extending superiorly from the planum sphenoidale. Mass demonstrates mildly T2 hyperintense and isointense to the smith matter T1 signal. There is mass effect on adjacent frontal poles with vasogenic edema in the left frontal pole. Coronal T2 reformats demonstrate extension into the left ophthalmic groove but no definite extension into the nasal cavity. Imaging characteristics suggest a large meningioma. No other mass or pathologic intracranial enhancement identified. No mass effect elsewhere. No extra-axial fluid collection or hydrocephalus. Parenchyma demonstrates normal T2 and T1 signal. Visualized paranasal sinuses and mastoid air cells are clear. The visualized soft tissues are unremarkable. Intraorbital contents are unremarkable bilaterally. Intracranial MRA result: Intracranial ICAs, proximal MCA segments bilaterally, as well as proximal KATELYN segments bilaterally are patent and without significant focal narrowing or aneurysm. Intracranial vertebral arteries, basilar artery, and proximal CODING COORDINATOR segments bilaterally are patent and without significant focal narrowing or aneurysm. IMPRESSION: 1. 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 No other mass or pathologic intracranial enhancement. 2. No large arterial vessel occlusion, significant focal narrowing, or aneurysm on intracranial MRA. Compressor Station Operator: PSCB Transcribe Date/Time: Mar 02 2025 11:01A Dictated by : HORTENSIA GRAY MD This examination was interpreted and the report reviewed and electronically signed by: HORTENSIA GRAY MD on Mar 02 2025 11:10AM EST [id number] Normal [facility] MRI BRAIN WO/W IVCONon 03-02 MRI BRAIN WO/W IVCON * * *Final Report* * * DATE OF EXAM: Mar 02 2025 10:33AM TOM 0295 - MRI BRAIN WO/W IVCON / PROCEDURE REASON: Brain/FILLETER neoplasm, monitor * * * * Physician Interpretation * * * * EXAMINATION: MRI BRAIN WO/W IVCON, MRA BRAIN WO IVCON CLINICAL HISTORY: Intracranial mass. TECHNIQUE: Sagittal high-resolution T2 and FLAIR as well as axial pre and postcontrast high-resolution T1 sequences through the brain. Intracranial MRA [id number] with multiplanar reconstructions. MQ: [id number] Contrast: 9 mL Elucirem IV COMPARISON: Outside imaging facility CT brain 02/19/2025. MRI BRAIN RESULT: There is a 3.7 x 3.3 x 2.8 cm (AP, transverse, CC) homogeneously enhancing extra-axial dural based mass extending superiorly from the planum sphenoidale. Mass demonstrates mildly T2 hyperintense and isointense to the smith matter T1 signal. There is mass effect on adjacent frontal poles with vasogenic edema in the left frontal pole. Coronal T2 reformats demonstrate extension into the left ophthalmic groove but no definite extension into the nasal cavity. Imaging characteristics suggest a large meningioma. No other mass or pathologic intracranial enhancement identified. No mass effect elsewhere. No extra-axial fluid collection or hydrocephalus. Parenchyma demonstrates normal T2 and T1 signal. Visualized paranasal sinuses and mastoid air cells are clear. The visualized soft tissues are unremarkable. Intraorbital contents are unremarkable bilaterally. Intracranial MRA result: Intracranial ICAs, proximal MCA segments bilaterally, as well as proximal KATELYN segments bilaterally are patent and without significant focal narrowing or aneurysm. Intracranial vertebral arteries, basilar artery, and proximal CODING COORDINATOR segments bilaterally are patent and without significant focal narrowing or aneurysm. IMPRESSION: 1. 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 No other mass or pathologic intracranial enhancement. 2. No large arterial vessel occlusion, significant focal narrowing, or aneurysm on intracranial MRA. Compressor Station Operator: LG Transcribe Date/Time: Mar 02 2025 11:01A Dictated by : HORTENSIA GRAY MD This examination was interpreted and the report reviewed and electronically signed by: HORTENSIA GRAY MD on Mar 02 2025 11:10AM EST [id number] [facility] NURSING PROGon 03-02-2025 NURSING PROG HNO ID: [id number] Author: RENETTA AQUINO RN Service: ? Author Type: Registered Nurse Type: Nursing Progress Note Filed: 03/02/2025 20:09 Note Text: Patient woke up from a nap with confusion/ altered metal status. Patient and patient's family reported that patient woke up from a nap repeating the word hello. Family alerted staff, by the time RN assessed the patient her speech had cleared up and was able to communicate appropriately and able to answer orientation questions. Patient stated that she felt dizzy, her vision was blurred and objects had a halo outline. Her left eye lid was twitching. Sound and Neuro Surg LIPs were notified, STAT CT was ordered. Patient's symptoms mostly resolved in about 30 minutes of being reported. Normal [facility] CONSULTon 03-01-2025 CONSULT HNO ID: [id number] Author: FABRIZIO AMBROCIO MD Service: Neurosurgery Author Type: Nurse Practitioner Type: Consults Filed: 03/02/2025 09:36 Note Text: -- Attestation signed by Fabrizio Ambrocio MD at 03/02/2025 9:36 AM I agree with the note of Aliya Reza and the plan of care. I personally saw the patient and took her history and examine her today. She admits to having some cognitive issues and more recently some blurring of her vision. She complained about her handwriting not being as good as it used to be. She said she noticed that on and off her sense of smell is not as good as it used to be. 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 I discussed this with the patient and recommended an MRI without and with contrast enhancement. After the scan is completed we will discuss with the patient the craniotomy for excision. -- CONSULT: NEUROSURGERY SERVICE Patient Name: Sierra Patton Date of : 1970 SERVICE DATE: 03/01/2025 REASON FOR CONSULT: brain mass REQUESTING PHYSICIAN: Ron Bruno MD PRIMARY CARE PHYSICIAN: Mati Augustine DO, DO Consultation requested by Dr. Bruno for an opinion regarding brain mass. My final recommendations will be communicated back to the requesting physician by way of shared Medical record or letter to requesting physician via US mail. CHIEF COMPLAINT: neck swelling HISTORY OF PRESENT ILLNESS : Sierra Patton is a 54 year old female PMH thyroid disease, obesity, anxiety who presented following incidental finding of brain mass. Patient reports neck swelling, saw provider who ordered CT thyroid; brain mass seen and she was told to come to hospital. She reports at least 6 months of difficulty with cognition, more recently blurry vision. Also endorses mood swings which has been attributed to thyroid and weight gain attributed to new psychiatric medications. She also endorses frontal headache which started at [place]. H/o Hodgkin lymphoma grandparents No past medical history on file. No past surgical history on file. No family history on file. ALLERGIES Allergen Reactions Genta-Gel Swelling Sulfa (Sulfonamide * Hives Current Facility-Administered Medications Medication Dose Route Frequency Provider Last Rate Last Admin acetaminophen 650 mg tab(s) (TYLENOL) 650 mg ORAL ONCE Jhon Pulido II, MD brexpiprazole 2 mg tab(s) (REXULTI) 2 mg ORAL DAILY Jhon Pulido II, MD 2 mg at 03/01/25 1222 clonazePAM 1 mg tab(s) (KlonoPIN) 1 mg ORAL AT BEDTIME PRN Jhon Pulido II, MD escitalopram oxalate 20 mg tab(s) (LEXAPRO) 20 mg ORAL DAILY Jhon Pulido II, MD 20 mg at 03/01/25 0819 metoprolol succinate ER 50 mg tab(s) (TOPROL XL) 50 mg ORAL BID Jhon Pulido II, MD 50 mg at 03/01/25 0819 rosuvastatin 10 mg tab(s) (CRESTOR) 10 mg ORAL AT BEDTIME Jhon Pulido II, MD triamterene-hydroCHLOROthi azide 37.5-25 mg 1 tablet (MAXZIDE-25) 1 tablet ORAL DAILY Jhon Pulido II, MD 1 tablet at 03/01/25 1222 NaCl 0.9% iv flush bag 20 mL INTRAVENOUS PRN Jhon Pulido II, MD morphine 4 mg injection 4 mg INTRAVENOUS q 4 H PRN Jhon Pulido II, MD 4 mg at 03/01/25 1222 ondansetron (PF) 4 mg injection (ZOFRAN) 4 mg INTRAVENOUS q 6 H PRN Jhon Pulido II, MD pantoprazole DR 20 mg tab(s) (PROTONIX) 20 mg ORAL BID AC (0600/1600) Jhon Pulido II, MD 20 mg at 03/01/25 0819 iv contrast (radiology procedure) INTRAVENOUS DIRECTED PRN Aliya Reza APRN.HISTOLOGY TEACHER levETIRAcetam 500 mg tab(s) (KEPPRA) 500 mg ORAL BID Aliya Reza APRN.HISTOLOGY TEACHER COMPLETE REVIEW OF SYSTEMS Constitutional: Denies fatigue, fever/chills Eyes: Denies use of corrective devices Ears: Denies use of hearing devices Cardiovascular: Denies palpitations, dyspnea, edema, chest pain Respiratory: Denies cough GI: Denies change in bowel or bladder habits : Denies incontinence, urinary infections Musculoskeletal: Denies joint pain, muscle pain Integumentary: Denies rashes Neurological: +cognitive difficulty, Denies dizziness, local weakness, numbness, tingling, tremors Psychiatric: Denies anxiety, depression Endocrine: Denies heat/cold intolerance Heme/Lymph: Denies easy bruising or bleeding Allergy/Immune: Denies fatigue, fever/chills MEDS: Current Facility-Administered Medications Medication Dose Route Frequency acetaminophen 650 mg tab(s) (TYLENOL) 650 mg ORAL ONCE brexpiprazole 2 mg tab(s) (REXULTI) 2 mg ORAL DAILY clonazePAM 1 mg tab(s) (KlonoPIN) 1 mg ORAL AT BEDTIME PRN escitalopram oxalate 20 mg tab(s) (LEXAPRO) 20 mg ORAL DAILY metoprolol succinate ER 50 mg tab(s) (TOPROL XL) 50 mg ORAL BID triamterene-hydroCHLOROthi azide 37.5-25 mg 1 tablet (MAXZIDE-25) 1 tablet ORAL D (more content not included)... Normal [facility] HISTORY PHYSICALon HISTORY PHYSICAL HNO ID: [id number] Author: JHON PULIDO II, MD Service: Hospital Medicine Author Type: Physician Type: H&P Filed: 03/01/2025 04:27 Note Text: DEPARTMENT OF HOSPITAL MEDICINE HISTORY AND PHYSICAL EXAM SERVICE DATE: 03/01/2025 SERVICE TIME: 3:07 AM Primary Care Physician: Mati Augustine, DO, DO NIGHT AND WEEKEND COVERAGE: From 7am - 7pm, please call Sound attending After 7pm, please call cross cover pager #[phone] ASSESSMENT AND PLAN: 1) Brain mass - Decadron 10 mg IV daily - tele - NS consult 2) Psych - Hx: depression, anxiety Home meds: - clonazepam 1 mg PO at bedtime - escitalopram 20 mg PO daily 3) CV - Hx: HLD, HTN Home meds: - metoprolol 50 mg PO BID - rosuvastatin 10 mg PO at bedtime - triamterene 37.5 mg PO daily - hydrochlorothiazide 25 mg PO daily 4) GERD - omeprazole 20 mg PO BID Chief Complaint: headaches, word-finding problems, incidentally discovered front lobe brain mass on outside CT HPI: Sierra Patton is a 54 year old female with history of depression, anxiety, HLD, RLS, GERD, PCOS and HTN who presents to the hospital from [facility] due to an incidentally discovered bifrontal lobe brain mass. The patient had an outside CT of her thyroid that picked up the mass incidentally. She was advised to go to the ED so she presented to [facility]. She stayed there until a bed opened here in order the get a neurosurgical evaluation. She denies any neurological issues except for a change in her chronic headaches over the last few weeks and an increase in word finding difficulty. She denies vision changes, numbness, tingling, focal weakness, or difficulty swallowing. She denies any other symptoms, such as a change in her baseline chest pain and shortness of breath, cough, wheezing, fevers, chills, nausea, vomiting, diarrhea, abdominal pain, dysuria or LE swelling. Labs at [facility] revealed WBCs of 11.8, Hgb of 10.9, and glucose of 158, otherwise normal CBC and BMP. CT Brain showed a 3.2 cm x 4.1 cm x 2.4 cm enhancing mass involving the medial aspect of the right and left frontal lobes, more prominent on the left with surrounding edema and mass effect. CTPE showed a small pericardial cyst, heterogeneousppearance of the thyroid and findings suggestive of multiple small hepatic cysts. She was treated with 10 of Decadron while she was at [facility]. ########################## ########################## # ########################## ########################## # ########################## ########################## # OTHER HISTORY################### ################### ########################## ########################## # ########################## ########################## # ########################## ########################## # ROS: Negative except those noted in HPI above PHYSICAL EXAM GENERAL: Alert, no distress, cooperative SKIN : Warm, dry intact, no open lesions, no rashes HEAD / SINUSES : Normocephalic, atraumatic, oral mucosa moist EYES : PERRLA, EOMI NECK : No jugulovenous distention, Supple, no adenopathy LUNGS : Lungs clear to auscultation, no wheezes, rhonchi, or rales CARDIAC : RRR, Normal S1 and S2; no rubs, murmurs, or gallops ABDOMEN : Abdomen soft, non - tender, BS normal, No masses or organomegaly EXTREMITIES : Extremities normal, no deformities, edema, clubbing or skin discoloration NEURO : Sensation grossly intact, Cranial nerves II - XII intact, moves all 4 extremities, speech was clear and coherent - no chronic rucker All pertinent labs, imaging, medical Hx, Surgical Hx, Family Hx, Social Hx, home medications, and allergies reviewed. See below. Medical History: depression anxiety HLD RLS GERD PCOS HTN Surgical History: DANDC, tubal ligation, thumb surgery, LEEP, bone marrow biopsy Family History: Father - alcohol abuse, depression, HTN, HLD Mother - Anxiety, depression, HTN, HLD Social History: Tobacco History: Smoking status: Former Smokeless tobacco: Never Vaping History: No history of file Alcohol and Substance Use: No history on file HOME MEDICATIONS clonazepam 1 mg PO at bedtime escitalopram 20 mg PO daily metoprolol 50 mg PO BID omeprazole 20 mg PO BID rosuvastatin 10 mg PO at bedtime triamterene 37.5 mg PO daily hydrochlorothiazide 25 mg PO daily ALLERGIES (more content not included)... Normal [facility] [id number] 02-28-2025 [id number] Missed Session Unexcused Pt did not call or show for Psych IOP on this date. Called pt and talked to her daughter, Steph. She reported that the pt was just diagnosed with a brain tumor and will be undergoing surgery tomorrow. Asked Steph to have her call when she is able. Pt will be discharged. Normal [facility] Absolute lymphocyte countOrd ered By: Godwin Lynch on 02-28-2025 Lymphocytes Auto (Unsp spec) [#/Vol] 0.96 10*3/uL 0.83-4.51 [facility] Absolute neutrophil countOrd ered By: Godwin Lynch on 02-28-2025 Neutrophils (Bld) [#/Vol] 10.5 10*3/uL High 2.0-7.7 [facility] Anion gap in Serum or Plasma Ordered By: Godwin Lynch on 02-28-2025 Anion gap [Moles/Vol] 13 mmol/L 5-15 [facility] Automated lymphocyte count a s percentage of total leukocytesOrdered By: Godwin Lynch on 02-28-2025 Lymphocytes/100 WBC Auto (Unsp spec) 8.1 % Low 19-41 [facility] BUN/creatinine ratioOrdered By: Godwin Lynch on 02-28-2025 Urea nitrogen/Creatinine [Mass ratio] 15.1 mg/mg 10-20 [facility] Basic Metabolic Profile (BMP )on 02-28-2025 BUN/CRE 15.1 RATIO Normal -20 [facility] Comment on above: Performed By: #### L 500.2500, L100.0100 #### [facility] [address] [place], [address] Calcium [Mass/Vol] 9.8 mg/dL Normal 7.6-11.0 [facility] Comment on above: Performed By: #### L 500.2500, L100.0100 #### [facility] [address] [place], [address] Chloride [Moles/Vol] 105 mmol/L Normal 98-108 [facility] Comment on above: Performed By: #### L 500.2500, L100.0100 #### [facility] [address] [place], [address] CO2 [Moles/Vol] 23.8 mmol/L Normal 21.0-32.0 [facility] Comment on above: Performed By: #### L 500.2500, L100.0100 #### [facility] [address] [place], [address] Creatinine [Mass/Vol] 0.85 mg/dL Normal 0.70-1.20 [facility] Comment on above: Performed By: #### L 500.2500, L100.0100 #### [facility] [address] [place], [address] ECRCL 78.23 ml/min Normal 50-250 [facility] Comment on above: Performed By: #### L 500.2500, L100.0100 #### [facility] [address] [place], [address] GAP 13 Normal 5-15 [facility] Comment on above: Performed By: #### L 500.2500, L100.0100 #### [facility] [address] [place], [address] GFR/1.73 sq M.predicted among non-blacks MDRD (S/P/Bld) [Vol rate/Area] 82 mL/min/{1.73_m2} Normal >60 [facility] Comment on above: Result Comment: mL/m in/1.73m2 CKD-EPI Creatinine Equation (2020) Performed By: #### L 500.2500, L100.0100 #### [facility] [address] [place], [address] Glucose [Mass/Vol] 158 mg/dL High 70-99 [facility] Comment on above: Performed By: #### L 500.2500, L100.0100 #### [facility] [address] [place], [address] Potassium [Moles/Vol] 4.1 mmol/L Normal 3.3-5.1 [facility] Comment on above: Performed By: #### L 500.2500, L100.0100 #### [facility] [address] [place], [address] Sodium [Moles/Vol] 142 mmol/L Normal 133-145 [facility] Comment on above: Performed By: #### L 500.2500, L100.0100 #### [facility] [address] [place], [address] Urea nitrogen [Mass/Vol] 13 mg/dL Normal 4-19 [facility] Comment on above: Performed By: #### L 500.2500, L100.0100 #### [facility] [address] [place], [address] Basophil percentageOrdered B y: Godwin Lynch on 02-28-2025 Basophils/100 WBC (Bld) 0.1 % 0-1 [facility] CBC W/Diff, Automatedon 02-01 Absolute Lymph 0.96 X10 3/uL Normal 0.83-4.51 [facility] Comment on above: Performed By: #### L 500.2500, L100.0100 #### [facility] [address] [place], [address] Absolute Neut 10.5 X10 3/uL High 2.0-7.7 [facility] Comment on above: Performed By: #### L 500.2500, L100.0100 #### [facility] [address] [place], [address] Basophils/100 WBC (Bld) 0.1 % Normal 0-1 [facility] Comment on above: Performed By: #### L 500.2500, L100.0100 #### [facility] [address] [place], [address] Eosinophils/100 WBC (Bld) 0.0 % Normal 0-5 [facility] Comment on above: Performed By: #### L 500.2500, L100.0100 #### [facility] [address] [place], [address] Erythrocyte distribution width (RBC) [Ratio] 14.5 % Normal 11.6-14.6 [facility] Comment on above: Performed By: #### L 500.2500, L100.0100 #### [facility] [address] [place], [address] Hematocrit (Bld) [Volume fraction] 32.1 % Low 37-47 [facility] Comment on above: Performed By: #### L 500.2500, L100.0100 #### [facility] [address] [place], [address] Hemoglobin (Bld) [Mass/Vol] 10.9 g/dL Low 12.0-15.0 [facility] Comment on above: Performed By: #### L 500.2500, L100.0100 #### [facility] [address] [place], [address] IG% 1.300 High 0.0-0.9 [facility] Comment on above: Result Comment: IG% - Immature Granulocytes (promyelocytes, myelocytes and metamyelocytes) > 1% indicates that a LEFT SHIFT is Present. Performed By: #### L 500.2500, L100.0100 #### [facility] [address] [place], [address] Lymphocytes/100 WBC (Bld) 8.1 % Low 19-41 [facility] Comment on above: Performed By: #### L 500.2500, L100.0100 #### [facility] [address] [place], [address] MCH (RBC) [Entitic mass] 28.6 pg Normal 27.0-32.0 [facility] Comment on above: Performed By: #### L 500.2500, L100.0100 #### [facility] [address] [place], [address] MCHC (RBC) [Mass/Vol] 34.0 g/dL Normal 32-36 [facility] Comment on above: Performed By: #### L 500.2500, L100.0100 #### [facility] [address] [place], [address] MCV (RBC) [Entitic vol] 84.3 fL Normal 81-99 [facility] Comment on above: Performed By: #### L 500.2500, L100.0100 #### [facility] [address] [place], [address] Monocytes/100 WBC (Bld) 1.8 % Normal 0-10 [facility] Comment on above: Performed By: #### L 500.2500, L100.0100 #### [facility] [address] [place], [address] Neutrophils/100 WBC (Bld) 88.7 % High 47-70 [facility] Comment on above: Performed By: #### L 500.2500, L100.0100 #### [facility] [address] [place], [address] Nucleated RBC (Bld) [#/Vol] 0 10*3/uL Normal 0-5 [facility] Comment on above: Performed By: #### L 500.2500, L100.0100 #### [facility] [address] [place], [address] Platelet mean volume (Bld) [Entitic vol] 9.4 fL Normal 6.2-12.0 [facility] Comment on above: Performed By: #### L 500.2500, L100.0100 #### [facility] [address] [place], [address] Platelets (Bld) [#/Vol] 341 10*3/uL Normal 150-450 [facility] Comment on above: Performed By: #### L 500.2500, L100.0100 #### [facility] [address] [place], [address] RBC (Bld) [#/Vol] 3.81 10*6/uL Low 4.2-5.4 [facility] Comment on above: Performed By: #### L 500.2500, L100.0100 #### [facility] [address] [place], [address] RDW SD 43.8 fl Normal 35.1-43.9 [facility] Comment on above: Performed By: #### L 500.2500, L100.0100 #### [facility] [address] [place], [address] WBC (Bld) [#/Vol] 11.8 10*3/uL High 4.4-11.0 [facility] Comment on above: Performed By: #### L 500.2500, L100.0100 #### [facility] [address] [place], [address] Carbon dioxide, total [Moles /volume] in Central venous bloodOrdered By: Godwin Lynch on 02-28-2025 CO2 [Moles/Vol] 23.8 mmol/L 21.0-32.0 [facility] Chloride assayOrdered By: Vishnu Lynch on 02-28-2025 Chloride [Moles/Vol] 105 mmol/L 98-108 [facility] Eosinophil percentageOrdered By: Godwin Lynch on 02-28-2025 Eosinophils/100 WBC (Bld) 0.0 % 0-5 [facility] Erythrocyte distribution wid th ratioOrdered By: Godwin Lynch on 02-28-2025 Erythrocyte distribution width (RBC) [Ratio] 14.5 % 11.6-14.6 [facility] Erythrocyte distribution wid th standard deviationOrdered By: Godwin Lynch on 02-28-2025 Erythrocyte distribution width (RBC) [Ratio] 43.8 fl 35.1-43.9 [facility] Glomerular filtration rate ( GFR) estimation/1.73 sq m using serum, plasma, or whole bOrdered By: Godwin Lynch on 02-28-2025 GFR/1.73 sq M.predicted among non-blacks MDRD (S/P/Bld) [Vol rate/Area] 82 mL/min/{1.73_m2} >60 [facility] Comment on above: mL/min/1.73m2 CKD-EP I Creatinine Equation (2020) Hematocrit Auto (Bld) [Volum e fraction]Ordered By: Godwin Lynch on 02-28-2025 Hematocrit (Bld) [Volume fraction] 32.1 % Low 37-47 [facility] Hemoglobin measurementOrdere d By: Godwin Lynch on 02-28-2025 Hemoglobin (Bld) [Mass/Vol] 10.9 g/dL Low 12.0-15.0 [facility] Immature granulocytes/100 WB C Auto (Bld)Ordered By: Godwin Lynch on 02-28-2025 Immature granulocytes/100 WBC (Bld) 1.300 % High 0.0-0.9 [facility] Comment on above: IG% - Immature Granu locytes (promyelocytes, myelocytes and metamyelocytes) > 1% indicates that a LEFT SHIFT is Present. MCV (mean corpuscular volume ) determinationOrdered By: Godwin Lynch on 02-28-2025 MCV (RBC) [Entitic vol] 84.3 fL 81-99 [facility] Mean corpuscular hemoglobin (MCH) determinationOrdered By: Godwin Lynch on 02-28-2025 MCH (RBC) [Entitic mass] 28.6 pg 27.0-32.0 [facility] Mean corpuscular hemoglobin concentration (MCHC) determinationOrdered By: Godwin Lynch on 02-28-2025 MCHC (RBC) [Mass/Vol] 34.0 g/dL 32-36 [facility] Mean platelet volume determi nationOrdered By: Godwin Lynch on 02-28-2025 Platelet mean volume (Bld) [Entitic vol] 9.4 fL 6.2-12.0 [facility] Monocyte percentageOrdered B y: Godwin Lynch on 02-28-2025 Monocytes/100 WBC (Bld) 1.8 % 0-10 [facility] Neutrophil percentageOrdered By: Godwin Lynch on 02-28-2025 Neutrophils/100 WBC (Bld) 88.7 % High 47-70 [facility] Nucleated red blood cell per centageOrdered By: Godwin Lynch on 02-28-2025 Nucleated RBC/100 WBC (Bld) [Ratio] 0 % 0-5 [facility] Platelet countOrdered By: Vishnu Lynch on 02-28-2025 Platelets (Bld) [#/Vol] 341 10*3/uL 150-450 [facility] Potassium measurement (mass/ volume)Ordered By: Godwin Lynch on 02-28-2025 Potassium (Unsp spec) [Mass/Vol] 4.1 mmol/L 3.3-5.1 [facility] RBC Auto (Bld) [#/Vol]Ordere d By: Godwin Lynch on 02-28-2025 RBC (Bld) [#/Vol] 3.81 10*6/uL Low 4.2-5.4 [facility] Serum creatinine measurement (mass/volume)Ordered By: Godwin Lynch on 02-28-2025 Creatinine [Mass/Vol] 0.85 mg/dL 0.70-1.20 [facility] Serum glucose measurement (m ass/volume)Ordered By: Godwin Lynch on 02-28-2025 Glucose [Mass/Vol] 158 mg/dL High 70-99 [facility] Serum or plasma calcium susanna urement (mass/volume)Ordered By: Godwin Lynch on 02-28-2025 Calcium [Mass/Vol] 9.8 mg/dL 7.6-11.0 [facility] Serum or plasma urea nitroge n measurement (mass/volume)Ordered By: Godwin Lynch on 02-28-2025 Urea nitrogen [Mass/Vol] 13 mg/dL 4-19 [facility] Sodium levelOrdered By: Godwin Lynch on 02-28-2025 Sodium [Moles/Vol] 142 mmol/L 133-145 [facility] White blood cell (WBC) count Ordered By: Godwin Lynch on 02-28-2025 WBC (Bld) [#/Vol] 11.8 10*3/uL High 4.4-11.0 [facility] Absolute lymphocyte countOrd ered By: Olive Yang on 02-27-2025 Lymphocytes Auto (Unsp spec) [#/Vol] 1.32 10*3/uL 0.83-4.51 [facility] Absolute neutrophil countOrd ered By: Olive Yang on 02-27-2025 Neutrophils (Bld) [#/Vol] 4.5 10*3/uL 2.0-7.7 [facility] Anion gap in Serum or Plasma Ordered By: Olive Yang on 02-27-2025 Anion gap [Moles/Vol] 11 mmol/L 5-15 [facility] Automated lymphocyte count a s percentage of total leukocytesOrdered By: Olive Yang on 02-27-2025 Lymphocytes/100 WBC Auto (Unsp spec) 20.4 % 19-41 [facility] BUN/creatinine ratioOrdered By: Olive Yang on 02-27-2025 Urea nitrogen/Creatinine [Mass ratio] 11.9 mg/mg 10- [facility] Basic Metabolic Profile (BMP )on 02-27-2025 BUN/CRE 11.9 RATIO Normal - [facility] Comment on above: Performed By: #### L 500.2500, L100.0100 ####[facility] [address] [place], [address] Calcium [Mass/Vol] 9.6 mg/dL Normal 7.6-11.0 [facility] Comment on above: Performed By: #### L 500.2500, L100.0100 ####[facility] [address] [place], [address] Chloride [Moles/Vol] 106 mmol/L Normal 98-108 [facility] Comment on above: Performed By: #### L 500.2500, L100.0100 ####[facility] [address] [place], [address] CO2 [Moles/Vol] 26.2 mmol/L Normal 21.0-32.0 [facility] Comment on above: Performed By: #### L 500.2500, L100.0100 ####[facility] [address] [place], [address] Creatinine [Mass/Vol] 1.16 mg/dL Normal 0.70-1.20 [facility] Comment on above: Performed By: #### L 500.2500, L100.0100 ####[facility] [address] [place], [address] ECRCL 58.17 ml/min Normal 50-250 [facility] Comment on above: Performed By: #### L 500.2500, L100.0100 ####[facility] [address] [place], [address] GAP 11 Normal 5-15 [facility] Comment on above: Performed By: #### L 500.2500, L100.0100 ####[facility] [address] [place], [address] GFR/1.73 sq M.predicted among non-blacks MDRD (S/P/Bld) [Vol rate/Area] 56 mL/min/{1.73_m2} Low >60 [facility] Comment on above: Result Comment: mL/m in/1.73m2 CKD-EPI Creatinine Equation (2020) Performed By: #### L 500.2500, L100.0100 ####[facility] [address] [place], [address] Glucose [Mass/Vol] 108 mg/dL High 70-99 [facility] Comment on above: Performed By: #### L 500.2500, L100.0100 ####[facility] [address] [place], [address] Potassium [Moles/Vol] 4.2 mmol/L Normal 3.3-5.1 [facility] Comment on above: Performed By: #### L 500.2500, L100.0100 ####[facility] [address] [place], [address] Sodium [Moles/Vol] 143 mmol/L Normal 133-145 [facility] Comment on above: Performed By: #### L 500.2500, L100.0100 ####[facility] [address] [place], [address] Urea nitrogen [Mass/Vol] 14 mg/dL Normal 4-19 [facility] Comment on above: Performed By: #### L 500.2500, L100.0100 ####[facility] [address] [place], [address] Basophil percentageOrdered B y: Olive Yang on 02-27-2025 Basophils/100 WBC (Bld) 0.6 % 0-1 [facility] Bedside Glucoseon 02-27-2025 FINGERSTICK GLU 146 mg/dL High 74-106 [facility] Comment on above: Result Comment: ELIER MENDEZ OF PATIENT CARE PER NURSING PROTOCOL Performed By: #### L 501.080 ####[facility] [address] [place], [address] Brain/Head W/WO Contraston 0 02-27-2025 Brain/Head W/WO Contrast [facility] Imaging Services [address] [place] [address] Brain/Head W/WO Contrast MR#: [id number] Acct: [id number] Name: SIERRA PATTON Rep #: [id number] : 1970 F 54 From: Rodo seals MD PCP: Dr. Mati Augustine, DO Status: REG ER Study: Brain/Head W/WO Contrast Date of Exam: 5 Exam# [id number] Ordering Dr: Olive Yang MD PROCEDURE: BRAIN/HEAD W/WO CONTRAST 02/27/2025 REASON FOR EXAM: DIZZINESS, MEMORY LOSS Vertigo. TECHNIQUE: Head CT before and following intravenous contrast. Coronal and Sagittal reconstruction series were provided. CONTRAST: Isovue-300 VOLUME: 100 mL One or more dose reduction techniques were used (e.g., Automated exposure control, adjustment of the mA and/or kV according to patient size, use of iterative reconstruction technique). RADIATION DOSE SUMMARY: CTDlvol: 44.99 mGy DLP: 796.11 mGycm COMPARISON: None FINDINGS: Acute findings: There is evidence of a 4.1 cm x 3.2 cm by 2.6 cm enhancing rounded soft tissue mass in the medial aspect of the left frontal lobe extending into the right frontal lobe. There is evidence of surrounding edema more prominent in the left frontal lobe. A neoplastic process should be ruled out. There is evidence of mass effect. Postcontrast images: Enhancing mass as described. CSF Spaces: Normal Sinuses/Mastoids: Mucosal thickening of the ethmoid sinuses. Bones: Unremarkable CT/Brain/Head W/WO Contrast IMPRESSION: 3.2 cm 4.1 cm by 2.4 cm enhancing mass involving the medial aspect of the right and left frontal lobes more prominent on the left side with surrounding edema and mass effect. A neoplastic process should be ruled out. No evidence of hydrocephalus. Reading Location: [place] [address] CC: Dr. Olive Yang MD; Dr. Mati Augustine DO Compressor Station Operator: Signed Normal [facility] CBC W/Diff, Automatedon - Absolute Lymph 1.32 X10 3/uL Normal 0.83-4.51 [facility] Comment on above: Performed By: #### L 500.2500, L100.0100 ####[facility] [address] [place], [address] Absolute Neut 4.5 X10 3/uL Normal 2.0-7.7 [facility] Comment on above: Performed By: #### L 500.2500, L100.0100 ####[facility] [address] [place], [address] Basophils/100 WBC (Bld) 0.6 % Normal 0-1 [facility] Comment on above: Performed By: #### L 500.2500, L100.0100 ####[facility] [address] [place], [address] Eosinophils/100 WBC (Bld) 3.4 % Normal 0-5 [facility] Comment on above: Performed By: #### L 500.2500, L100.0100 ####[facility] [address] [place], [address] Erythrocyte distribution width (RBC) [Ratio] 14.5 % Normal 11.6-14.6 [facility] Comment on above: Performed By: #### L 500.2500, L100.0100 ####[facility] [address] [place], [address] Hematocrit (Bld) [Volume fraction] 30.3 % Low 37-47 [facility] Comment on above: Performed By: #### L 500.2500, L100.0100 ####[facility] [address] [place], [address] Hemoglobin (Bld) [Mass/Vol] 10.4 g/dL Low 12.0-15.0 [facility] Comment on above: Performed By: #### L 500.2500, L100.0100 ####[facility] [address] [place], [address] IG% 0.600 Normal 0.0-0.9 [facility] Comment on above: Result Comment: IG% - Immature Granulocytes (promyelocytes, myelocytes and metamyelocytes) > 1% indicates that a LEFT SHIFT is Present. Performed By: #### L 500.2500, L100.0100 ####[facility] [address] [place], [address] Lymphocytes/100 WBC (Bld) 20.4 % Normal 19-41 [facility] Comment on above: Performed By: #### L 500.2500, L100.0100 ####[facility] [address] [place], [address] MCH (RBC) [Entitic mass] 29.0 pg Normal 27.0-32.0 [facility] Comment on above: Performed By: #### L 500.2500, L100.0100 ####[facility] [address] [place], [address] MCHC (RBC) [Mass/Vol] 34.3 g/dL Normal 32-36 [facility] Comment on above: Performed By: #### L 500.2500, L100.0100 ####[facility] [address] [place], [address] MCV (RBC) [Entitic vol] 84.4 fL Normal 81-99 [facility] Comment on above: Performed By: #### L 500.2500, L100.0100 ####[facility] [address] [place], [address] Monocytes/100 WBC (Bld) 5.9 % Normal 0-10 [facility] Comment on above: Performed By: #### L 500.2500, L100.0100 ####[facility] [address] [place], [address] Neutrophils/100 WBC (Bld) 69.1 % Normal 47-70 [facility] Comment on above: Performed By: #### L 500.2500, L100.0100 ####[facility] [address] [place], [address] Nucleated RBC (Bld) [#/Vol] 0 10*3/uL Normal 0-5 [facility] Comment on above: Performed By: #### L 500.2500, L100.0100 ####[facility] [address] [place], [address] Platelet mean volume (Bld) [Entitic vol] 9.1 fL Normal 6.2-12.0 [facility] Comment on above: Performed By: #### L 500.2500, L100.0100 ####[facility] [address] [place], [address] Platelets (Bld) [#/Vol] 260 10*3/uL Normal 150-450 [facility] Comment on above: Performed By: #### L 500.2500, L100.0100 ####[facility] [address] [place], [address] RBC (Bld) [#/Vol] 3.59 10*6/uL Low 4.2-5.4 [facility] Comment on above: Performed By: #### L 500.2500, L100.0100 ####[facility] [address] [place], [address] RDW SD 44.0 fl High 35.1-43.9 [facility] Comment on above: Performed By: #### L 500.2500, L100.0100 ####[facility] [address] [place], [address] WBC (Bld) [#/Vol] 6.5 10*3/uL Normal 4.4-11.0 [facility] Comment on above: Performed By: #### L 500.2500, L100.0100 ####[facility] [address] [place], [address] CTA Chest W/WO Contraston CTA Chest W/WO Contrast [facility] Imaging Services [address] [place] [address] CTA Chest W/WO Contrast MR#: [id number] Acct: [id number] Name: SIERRA PATTON Rep #: [id number] : 1970 F 54 From: Rodo seals MD PCP: Dr. Mati Augustine DO Status: REG ER Study: CTA Chest W/WO Contrast Date of Exam: 02/27/25 Exam# [id number] Ordering Dr: Olive Yang MD PROCEDURE: CTA CHEST W/WO CONTRAST 02/27/2025 REASON FOR EXAM: ABNORMAL CT NECK, SHORTNESS OF BREATH TECHNIQUE: CTA axial imaging of the chest with intravenous contrast. Multiplanar and multisequence images were obtained. PATIENT PREPARATION: Per protocol One or more dose reduction techniques were used (e.g., Automated exposure control, adjustment of the mA and/or kV according to patient size, use of iterative reconstruction technique). CONTRAST: Isovue-300 VOLUME: 100 mL RADIATION DOSE SUMMARY: CTDlvol: 30 mGy DLP: 2100.22 mGycm . COMPARISON: Prior CT scan of the brain done earlier in the day. FINDINGS: Hardware: EKG electrodes are seen. Heterogeneous appearance of the right lobe of the thyroid with cystic spaces. Lymph nodes: Small benign-appearing mediastinal lymph nodes. Heart: Unremarkable Thoracic Aorta: No thoracic aortic aneurysm or dissection. Pulmonary Vessels: No evidence of acute pulmonary emboli through the major subsegmental branches. Lungs and Airways: 2.6 cm x 2.4 cm cystic structure at the level of the aortopulmonary window suggestive of possible pericardial cyst. Pleura: Unremarkable Upper Abdomen: Scattered small hypodensities within the liver suggestive of cysts. Borderline splenomegaly. Bones: Degenerative changes of the thoracic spine. CT/CTA Chest W/WO Contrast IMPRESSION: No evidence of pulmonary embolism. 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 Heterogeneous appearance of the thyroid. Findings suggestive of multiple small hepatic cysts. Reading Location: [facility] CC: Dr. Olive Yang MD; Dr. Mati Augustine DO Compressor Station Operator: Signed Normal [facility] Carbon dioxide, total [Moles /volume] in Central venous bloodOrdered By: Olive Yang on 02-27-2025 CO2 [Moles/Vol] 26.2 mmol/L 21.0-32.0 [facility] Chloride assayOrdered By: Jose Yang on 02-27-2025 Chloride [Moles/Vol] 106 mmol/L 98-108 [facility] Emergency Department Summary on 02-27-2025 Emergency Department Summary [facility] Medical Records Department [address] [place] [address] Emergency Department Summary 02/27/25 MR#: [id number] Acct: [id number] Name: SIERRA PATTON Rep #: [id number] : 1970 54 From: Olive Yang MD PCP: Dr. Mati Augustine, DO Status:REG ER Location: ED ADDENDUM by Dr. Ron Hurley, on 02/27/25 at 1832 Update: 1830 hrs. 27 Feb 2025 No wheezing at this time I reviewed the patient's ED course and the plan to transfer to [facility]. Unfortunately I am told by their transfer center that they will not have bed availability tonight. As it has been 6 hours since she was excepted I will speak with the hospitalist here regarding admission. She was noting nausea was given Zofran. 02/27/251831 Cosigner Signature (if applicable): cc: Dr. Mati Augustine, DO * Signed HPI History of Present Illness Chief Complaint: Shortness of Breath Narrative Narrative: 54-year-old female past medical history of swelling of thyroid for the last 3 years was sent in by her surgeon, Dr. Gene Lanier, for further imaging studies. In discussion with general surgery, david tejada had CT of the thyroid performed for swelling that she says has been going on for 3 years. She had been referred to him by her primary care provider. It was noted on the CT that there may be a brain mass as well as a questionable pulmonary embolism. Patient states that she has been short of breath for few weeks to month, and is also having problems with memory loss. She states that she did not remember going to the hairdresser or driving there the other day. She denies any headaches or nausea and vomiting. No exacerbating or alleviating factors. [facility] Medical History Chronic renal failure Trigger thumb Wears glasses Cancer Depression Anxiety Alcohol use Thyroid disease Easy bruising High cholesterol Restless legs Migraine headache Vertigo History of ulceration Gastric reflux Former smoker History of edema Normal Holter exam History of echocardiogram Trigger thumb of right hand Gammopathy Lesion of spleen Obesity Dermatitis Heart valve problem Polycystic ovaries Heart murmur Hyperlipidemia Hypertension Chronic headaches Emotional disorder Breast lump blood transfusion Bleeding disorder Back problem Anemia Seasonal allergies Home Medications ???Medication ???Instructions ???Recorded ???Last Taken ???Type omeprazole magnesium 20 mg 20 mg PO BID #180 tabs 03/22/23 Rx tablet,delayed release (Prilosec OTC) clobetasol 0.05 % topical ointment 1 applic topical DAILY PRN skin 12/05/23 Unknown History irritation metoprolol succinate 50 mg 50 mg PO BID #120 TABLETS 11/21/24 02/27/25 Rx tablet,extended release 24 hr multivitamin 1 tab PO QAM 12/11/24 Unknown Hist ory triamterene 37.5 0.5 tab PO QAM #90 tabs 01/04/25 0 02/27/25 Rx mg-hydrochlorothiazide 25 mg tablet valacyclovir 500 mg tablet 500 mg PO DAILY #30 TABLETS Unknown Rx brexpiprazole 2 mg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 little snot? relationship with her youngest daughter. Family of Origin History Parents' Marital Status: (Pt reported her parents when she was 20 yo.) If parents never each other, which parent was primary caregiver? How does patient describe relationship with leslee (more content not included)... [facility] Internal Medicine Office Vis itohaley 02-06-2025 Internal Medicine Office Visit [facility] [address] [place] [address] [place], [place] [address] OFFICE VISIT Date of Service: 02/06/25 MR#: [id number] Acct: [id number] Name: SIERRA PATTON Rep #: [id number] : 1970 Provider: Dr. Mati Mccartney Br own, DO Age/Sex: 54/F Location: [facility] Status: Signed Intake Vital Signs 12/25/24 08:35 01/11/25 08:17 02/06/25 13:07 Height 5 ft 2 in 5 ft 2 in 5 ft 2 in Weight: 188 lb 4 oz 182 lb BMI 34.4 33.3 BP 110/68 114/74 Blood Pressure Location Rt brachial Lt brachial Position Sitting Sitting Respiration 18 16 Pulse 76 80 Pulse Source Monitor Monitor Temp 97.6 F L 98.6 F Temp Source Temporal Temporal Pulse Oximetry (%) 96 99 Oxygen Delivery Method room air room air Intake Visit Reasons: 6 WK FU Chief Complaint: I feel depressed. 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 Is patient in pain?: No Allergies clindamycin Allergy (Severe, Verified 02/06/25 12:59) burning watery eyes Sulfa (Sulfonamide Antibiotics) Allergy (Severe, Verified 02/06/25 12:59) Hives erythromycin base Allergy (Verified 02/06/25 12:59) eye redness, watering, swelling Medications ???Medication ???Instructions ???Recorded ???Confirmed ???Type omeprazole magnesium 20 mg 20 mg PO BID #180 tabs 03/22/23 Rx tablet,delayed release (Prilosec OTC) clobetasol 0.05 % topical ointment 1 applic topical DAILY 12/05/23 02/06/25 History nystatin 100,000 unit/gram topical 1 applic topical BID PRN SKIN 02/06/25 History powder rosuvastatin 10 mg tablet 10 mg PO DAILY #90 tabs 01/23/24 0 02/06/25 Rx metoprolol succinate 50 mg 50 mg PO BID #120 TABLETS 11/21/24 02/06/25 Rx tablet,extended release 24 hr venlafaxine 150 mg 300 mg (2 x 150 mg) PO DAILY #60 0 11/23/24 02/06/25 Rx capsule,extended release 24 hr caps multivitamin 1 tab PO QAM 12/11/24 02/06/25 His tory escitalopram oxalate 20 mg tablet 20 mg PO QDAY #90 tabs 12/25/24 0 02/06/25 Rx (Lexapro) triamterene 37.5 0.5 tab PO QAM #90 tabs 01/04/25 0 02/06/25 Rx mg-hydrochlorothiazide 25 mg tablet valacyclovir 500 mg tablet 500 mg PO DAILY #30 TABLETS 02/06/25 Rx clonazepam 1 mg tablet (Klonopin) See Rx Instructions PO QHS #60 ta bs 02/05/25 02/06/25 Rx Nurse's Note: Pt is taking lexapro, states that she has been experiencing weight gain. She is still taking it and not having any difference in mood. Pt states she has nasal congestion/pressure, and R ear pain that started a couple of weeks ago and it is getting worse. Denies sob, chest congestion, cough, body aches,fevers, chills. Pt has not been treating w/ anything otc. Pt states that she has no plans of suicide or a plan, but does think that sometimes she would be better off . [facility] Medical History Chronic renal failure Trigger thumb Wears glasses Cancer Depression Anxiety Alcohol use Thyroid disease Easy bruising High cholesterol Restless legs Migraine headache Vertigo History of ulceration Gastric reflux Former smoker History of edema Normal Holter exam History of echocardiogram Trigger thumb of right hand Gammopathy Lesion of spleen Obesity Dermatitis Heart valve problem Polycystic ovaries Heart murmur Hyperlipidemia Hypertension Chronic headaches Emotional disorder Breast lump blood transfusion Bleeding disorder Back problem Anemia Seasonal allergies Surgical History H/O thumb surgery History of loop electrical excision procedure (LEEP) History of bone marrow biopsy History of D C liposuction to chin History of tonsillectomy and adenoidectomy History of tubal ligation Family History Father Alcohol abuse Anemia Anxiety Arthritis Depression Mental disorder Suicide attempt Heart disease Hypertension High cholesterol Mother Anemia Anxiety Arthritis Depression Hypertension High cholesterol Mental disorder Diabetes Grandmother Bleeding disorder Aunt Breast cancer Myocardial infarction Grandfather Myocardial infarction Grandmother CVA (cerebral vascular accident) Social History current occupational status: employed current occupation: [employer] Smoking Status: Former smoker alcohol intake: current alcohol intake frequency: a few times a month Alcohol type: wine substance use type: does not use caffeine: Yes what type of physical activity do you participate in: walking and other details: rowing frequency: 1-2 times per week Questionnaire [facility] BMS Over the last 2 weeks, how often have you been bothered by any of the following (more content not included)... Normal [facility] Anion gap in Serum or Plasma Ordered By: Briseida Starks on 01-26-2025 Anion gap [Moles/Vol] 12 mmol/L 5-15 [facility] BUN/creatinine ratioOrdered By: Briseida Starks on 01-26-2025 Urea nitrogen/Creatinine [Mass ratio] 16.0 mg/mg - [facility] Carbon dioxide, total [Moles /volume] in Central venous bloodOrdered By: Briseida Starks on 01-26-2025 CO2 [Moles/Vol] 25.9 mmol/L 21.0-32.0 [facility] Chloride assayOrdered By: Katarina Starks on 01-26-2025 Chloride [Moles/Vol] 104 mmol/L 98-108 [facility] Glomerular filtration rate ( GFR) estimation/1.73 sq m using serum, plasma, or whole bOrdered By: Briseida Starks on 01-26-2025 GFR/1.73 sq M.predicted among non-blacks MDRD (S/P/Bld) [Vol rate/Area] 56 mL/min/{1.73_m2} Low >60 [facility] Comment on above: mL/min/1.73m2 CKD-EP I Creatinine Equation (2020) Potassium measurement (mass/ volume)Ordered By: Briseida Starks on 01-26-2025 Potassium (Unsp spec) [Mass/Vol] 3.7 mmol/L 3.3-5.1 [facility] Renal Profileon 01-26-2025 Albumin [Mass/Vol] 4.6 g/dL Normal 3.5-5.0 [facility] Comment on above: Performed By: #### L 500.3600 #### [facility] [address] [place], [place], [id number] BUN/CRE 16.0 RATIO Normal 07-22 [facility] Comment on above: Performed By: #### L [id number] #### [facility] [address] [place], [address] Calcium [Mass/Vol] 9.6 mg/dL Normal 7.6-11.0 [facility] Comment on above: Performed By: #### L [id number] #### [facility] [address] [place], [address] Chloride [Moles/Vol] 104 mmol/L Normal 98-108 [facility] Comment on above: Performed By: #### L [id number] #### [facility] [address] [place], [address] CO2 [Moles/Vol] 25.9 mmol/L Normal 21.0-32.0 [facility] Comment on above: Performed By: #### L [id number] #### [facility] [address] [place], [address] Creatinine [Mass/Vol] 1.17 mg/dL Normal 0.70-1.20 [facility] Comment on above: Performed By: #### L [id number] #### [facility] [address] [place], [address] GAP 12 Normal 5-15 [facility] Comment on above: Performed By: #### L [id number] #### [facility] [address] [place], [address] GFR/1.73 sq M.predicted among non-blacks MDRD (S/P/Bld) [Vol rate/Area] 56 mL/min/{1.73_m2} Low >60 [facility] Comment on above: Result Comment: mL/m in/1.73m2 CKD-EPI Creatinine Equation (2020) Performed By: #### L 500.3600 #### [facility] [address] [place], [address] Glucose [Mass/Vol] 100 mg/dL High 70-99 [facility] Comment on above: Performed By: #### L [id number] #### [facility] [address] [place], [address] Phosphate [Mass/Vol] 3.6 mg/dL Normal 2.7-4.5 [facility] Comment on above: Performed By: #### L [id number] #### [facility] [address] [place], [address] Potassium [Moles/Vol] 3.7 mmol/L Normal 3.3-5.1 [facility] Comment on above: Performed By: #### L [id number] #### [facility] [address] [place], [address] Sodium [Moles/Vol] 142 mmol/L Normal 133-145 [facility] Comment on above: Performed By: #### L [id number] #### [facility] [address] [place], [address] Urea nitrogen [Mass/Vol] 19 mg/dL Normal 4-19 [facility] Comment on above: Performed By: #### L 500.3600 #### [facility] [address] [place], [address] Serum creatinine measurement (mass/volume)Ordered By: Briseida Starks on 01-26-2025 Creatinine [Mass/Vol] 1.17 mg/dL 0.70-1.20 [facility] Serum glucose measurement (m ass/volume)Ordered By: Briseida Starks on 01-26-2025 Glucose [Mass/Vol] 100 mg/dL High 70-99 [facility] Serum or plasma albumin susanna urement (mass/volume)Ordered By: Briseida Starks on 01-26-2025 Albumin [Mass/Vol] 4.6 g/dL 3.5-5.0 [facility] Serum or plasma calcium susanna urement (mass/volume)Ordered By: Briseida Starks on 01-26-2025 Calcium [Mass/Vol] 9.6 mg/dL 7.6-11.0 [facility] Serum or plasma urea nitroge n measurement (mass/volume)Ordered By: Briseida Starks on 01-26-2025 Urea nitrogen [Mass/Vol] 19 mg/dL 4-19 [facility] Sodium levelOrdered By: Pooja Starks on 01-26-2025 Sodium [Moles/Vol] 142 mmol/L 133-145 [facility] Free T3on 01-15-2025 Free T3 [Mass/Vol] 3.3 pg/mL Normal 2.18-3.98 [facility] Comment on above: Performed By: #### L 501.31231, L506.0400, L501.9520 ####[facility] [address] [place], [place], [address] Free O9Eyqitia By: Gene armenta on 01-15-2025 Free T3 [Mass/Vol] 3.3 pg/mL 2.18-3.98 [facility] Free Triiodothyronine (T3) pg/dL 3.3 pg/mL 2.18-3.98 [facility] T4 Free Directon 01-15-2025 T4 FREE DIRECT 0.90 ng/dL Normal 0.76-1.46 [facility] Comment on above: Performed By: #### L 501.11287, L506.0400, L501.9520 ####[facility] [id number] [place], [place], [address] T4 freeOrdered By: Gene armenta on 01-15-2025 Free T4 [Mass/Vol] 0.90 ng/dL 0.76-1.46 [facility] TSH DL <= 0.005 mIU/L QnOrde red By: Gene Lanier on 01-15-2025 Thyroid Stimulating Hormone (TSH) 2.010 uIU/mL 0.300-4.20 0 [facility] TSH Qn 2.010 uIU/mL 0.300-4.20 0 [facility] Thyroid Stim Hormone (TSH)on 01-15-2025 TSH 2.010 uIU/mL Normal 0.300-4.20 0 [facility] Comment on above: Performed By: #### L 501.73455, L506.0400, L501.9520 ####[facility] [id number] [place], [place], [address] Surgery Visit Reporton 01-11 Surgery Visit Report [facility] [address] [place] [address] OFFICE VISIT Date of Service: 01/11/25 MR#: [id number] Acct: [id number] Name: SIERRA PATTON Rep #: [id number] : 1970 Provider: Dr. Gene joiner MD Age/Sex: 54/F Location: [facility] Status: Signed Intake Vital Signs 07/27/24 09:32 12/25/24 08:35 01/11/25 08:17 Height 5 ft 2 in 5 ft 2 in 5 ft 2 in Weight: 175 lb 6 oz 188 lb 4 oz BMI 32.1 34.4 BP 102/78 110/68 Blood Pressure Location Lt brachial Rt brachial Position Sitting Sitting Respiration 16 18 Pulse 86 76 Pulse Source Monitor Monitor Temp 97.1 F L 97.6 F L Temp Source Temporal Temporal Pulse Oximetry (%) 97 96 Oxygen Delivery Method room air room air Intake Visit Reasons: 1 YR THYROID RECALL Chief Complaint: 1yr thyroid recall Is patient in pain?: No Allergies clindamycin Allergy (Severe, Verified 01/11/25 08:17) burning watery eyes Sulfa (Sulfonamide Antibiotics) Allergy (Severe, Verified 01/11/25 08:17) Hives erythromycin base Allergy (Verified 01/11/25 08:17) eye redness, watering, swelling Medications ???Medication ???Instructions ???Recorded ???Confirmed ???Type omeprazole magnesium 20 mg 20 mg PO BID #180 tabs 03/22/23 Rx tablet,delayed release (Prilosec OTC) clobetasol 0.05 % topical ointment 1 applic topical DAILY 12/05/23 01/11/25 History nystatin 100,000 unit/gram topical 1 applic topical BID PRN SKIN 01/11/25 History powder rosuvastatin 10 mg tablet 10 mg PO DAILY #90 tabs 01/23/24 0 01/11/25 Rx valacyclovir 500 mg tablet 500 mg PO DAILY #90 tabs 09/04/24 01/11/25 Rx metoprolol succinate 50 mg 50 mg PO BID #120 TABLETS 11/21/24 01/11/25 Rx tablet,extended release 24 hr venlafaxine 150 mg 300 mg (2 x 150 mg) PO DAILY #60 0 11/23/24 01/11/25 Rx capsule,extended release 24 hr caps multivitamin 1 tab PO QAM 12/11/24 01/11/25 His tory clonazepam 1 mg tablet (Klonopin) See Rx Instructions PO QHS #60 ta bs 12/18/24 01/11/25 Rx escitalopram oxalate 20 mg tablet 20 mg PO QDAY #90 tabs 12/25/24 0 01/11/25 Rx (Lexapro) triamterene 37.5 0.5 tab PO QAM #90 tabs 01/04/25 0 01/11/25 Rx mg-hydrochlorothiazide 25 mg tablet PFSH Medical History Chronic renal failure Trigger thumb Wears glasses Cancer Depression Anxiety Alcohol use Thyroid disease Easy bruising High cholesterol Restless legs Migraine headache Vertigo History of ulceration Gastric reflux Former smoker History of edema Normal Holter exam History of echocardiogram Trigger thumb of right hand Gammopathy Lesion of spleen Obesity Dermatitis Heart valve problem Polycystic ovaries Heart murmur Hyperlipidemia Hypertension Chronic headaches Emotional disorder Breast lump blood transfusion Bleeding disorder Back problem Anemia Seasonal allergies Surgical History H/O thumb surgery History of loop electrical excision procedure (LEEP) History of bone marrow biopsy History of D C liposuction to chin History of tonsillectomy and adenoidectomy History of tubal ligation Family History Father Alcohol abuse Anemia Anxiety Arthritis Depression Mental disorder Suicide attempt Heart disease Hypertension High cholesterol Mother Anemia Anxiety Arthritis Depression Hypertension High cholesterol Mental disorder Diabetes Grandmother Bleeding disorder Aunt Breast cancer Myocardial infarction Grandfather Myocardial infarction Grandmother CVA (cerebral vascular accident) Social History current occupational status: employed current occupation: [employer] Smoking Status: Former smoker alcohol intake: current alcohol intake frequency: a few times a month Alcohol type: wine substance use type: does not use caffeine: Yes what type of physical activity do you participate in: walking and other details: rowing frequency: 1-2 times per week HPI HPI HPI: Patient is a 54-year-old female who established with me for a diagnosis of multiple thyroid nodules and is status post FNA 01/21/2023. Her last visit was 01/25/2024. She shares with me that she could feel her nodule has grown. By this she states that she has experienced some trouble swallowing and concluded that she must either need to once again go for EGD with dilation or this was attributable to her nodule. She then saw her PCP who confirmed her suspicion that it had grown. She describes her swallowing difficulty she notes that it is catching higher up. She denies any ho (more content not included)... Normal [facility] Thyroidon 01-05-2025 Thyroid [facility] [address] [place] [address] Thyroid MR#: [id number] Acct: [id number] Name: SIERRA PATTON Rep #: [id number] : 1970 F 54 From: Cheikh Tenorio DO PCP: Dr. Mati Augustine, DO Status: REG CLI Study: Thyroid Date of Exam: 01/05/25 Exam# [id number] Ordering Dr: Gene Lanier MD PROCEDURE: THYROID 01/05/2025 THYROID ULTRASOUND REASON FOR EXAM: THYROID NODULE None. TECHNIQUE: Thyroid ultrasound COMPARISON: None. FINDINGS: Right thyroid lobe measures 4.5 x 2.4 x 2.4 cm. Left thyroid lobe measures 4.2 x 1.4 x 1.6 cm. Isthmus thickness is2.1 mm. Thyroid Size: Upper limits normal homogeneous Background Echotexture: Thyroid Nodules: In the mid left lobe there is a nodule measuring 11.1 mm by 5.1 mm AP x 7.2 mm. The nodule is mixed cystic and solid open (1); isoechoic (1); wider than tall (0); smoothly marginated (0) and no calcifications (0). TR 2. Not suspicious. Another left lobe, midline nodule is cystic, anechoic, wider than tall, smoothly marginated and no calcifications. TR 1. Benign. A mid right lobe nodule measures 2.7 cm by 2.2 cm x 2.0 cm. The nodule is mixed cystic and solid (1); isoechoic (1); wider than tall (0); margins are smooth (0); and no calcifications (0). TR 2 not suspicious. Also in the mid right lobe there is an 8 mm nodule which is solid (2); isoechoic (1). Wider than tall, smoothly marginated and no calcifications (0). TR 3. Management guidelines suggest no FNA biopsy and no imaging follow-up necessary. In the upper pole of the right lobe, there is a solid nodule (2), isoechoic (1); Wider than tall; smoothly marginated; and no calcifications (0). TR 3. Management guidelines for thyroid nodules varies according to size. For a 10 mm maximum dimension nodule no FNA biopsy and no imaging follow-up is recommended. Other: US/Thyroid IMPRESSION: Gland is upper limits normal size and no worrisome nodules are found. OVERALL FINAL ASSESSMENT: No suspicious thyroid nodules that would require FNA biopsy or imaging follow-up per ACR TI-RADS guidelines Reading [facility] CC: Dr. Mati Augustine DO; Dr. 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 Accompanied by: Self Is patient in pain?: No Allergies clindamycin Allergy (Severe, Verified 12/25/24 08:27) burning watery eyes Sulfa (Sulfonamide Antibiotics) Allergy (Severe, Verified 12/25/24 08:27) Hives erythromycin base Allergy (Verified 12/25/24 08:27) eye redness, watering, swelling Medications ???Medication ???Instructions ???Recorded ???Confirmed ???Type omeprazole magnesium 20 mg 20 mg PO BID #180 tabs 03/22/23 Rx tablet,delayed release (Prilosec OTC) clobetasol 0.05 % topical ointment 1 applic topical DAILY 12/05/23 12/25/24 History nystatin 100,000 unit/gram topical 1 applic topical BID PRN SKIN 12/25/24 History powder rosuvastatin 10 mg tablet 10 mg PO DAILY #90 tabs 01/23/24 0 12/25/24 Rx triamterene 37.5 0.5 tab PO QAM 07/27/24 12/25/24 H istory mg-hydrochlorothiazide 25 mg tablet valacyclovir 500 mg tablet 500 mg PO DAILY #90 tabs 09/04/24 12/25/24 Rx metoprolol succinate 50 mg 50 mg PO BID #120 TABLETS 11/21/24 12/25/24 Rx tablet,extended release 24 hr venlafaxine 150 mg 300 mg (2 x 150 mg) PO DAILY #60 0 11/23/24 12/25/24 Rx capsule,extended release 24 hr caps multivitamin 1 tab PO QAM 12/11/24 12/25/24 His tory clonazepam 1 mg tablet (Klonopin) See Rx Instructions PO QHS #60 ta bs 12/18/24 12/25/24 Rx escitalopram oxalate 20 mg tablet 20 mg PO QDAY #90 tabs 12/25/24 0 12/25/24 Rx (Lexapro) Have you fallen in the past year?: No Nurse's Note: discuss anxiety and depression [facility] Medical History Chronic renal failure Trigger thumb Wears glasses Cancer Depression Anxiety Alcohol use Thyroid disease Easy bruising High cholesterol Restless legs Migraine headache Vertigo History of ulceration Gastric reflux Former smoker History of edema Normal Holter exam History of echocardiogram Trigger thumb of right hand Gammopathy Lesion of spleen Obesity Dermatitis Heart valve problem Polycystic ovaries Heart murmur Hyperlipidemia Hypertension Chronic headaches Emotional disorder Breast lump blood transfusion Bleeding disorder Back problem Anemia Seasonal allergies Surgical History H/O thumb surgery History of loop electrical excision procedure (LEEP) History of bone marrow biopsy History of D C liposuction to chin History of tonsillectomy and adenoidectomy History of tubal ligation Family History Father Alcohol abuse Anemia Anxiety Arthritis Depression Mental disorder Suicide attempt Heart disease Hypertension High cholesterol Mother Anemia Anxiety Arthritis Depression Hypertension High cholesterol Mental disorder Diabetes Grandmother Bleeding disorder Aunt Breast cancer Myocardial infarction Grandfather Myocardial infarction Grandmother CVA (cerebral vascular accident) Social History current occupational status: employed current occupation: [employer] Smoking Status: Former smoker alcohol intake: current alcohol intake frequency: a few times a month Alcohol type: wine substance use type: does not use caffeine: Yes what type of physical activity do you participate in: walking and other details: rowing frequency: 1-2 times per week HPI HPI Chief Complaint: fu Details: SIERRA PATTON, is a 54 F who presents to the office today for adjusting her medicine for depression. She says she feels extremely flat and on ambitious but not suicidally depressed but certainly much more depressed than she was when she initially started on her Effexor. She is sleeping okay because of the Klonopin she takes but during the day she is quite depressed and stressed with her work and family matters. She would like to try to adjust her antidepressant medicines. I tried her on Vraylar and that made her far t (more content not included)... Normal [facility] Oncology Visit Reporton 12-01 Oncology Visit Report [facility] [place] [facility] [place] [address] OFFICE VISIT Date of Service: 12/11/24 1146 MR#: [id number] Acct: [id number] Name: SIERRA PATTON Rep #: [id number] : 1970 From: Yaniv Crawford MD Age/Sex: 54/F Location: [facility] Status: Signed HPI Subjective Date of Service 12/11/24 Chief Complaint Spleen lesion History of Present Illness 54-year-old female, perimenopausal who was evaluated for elevated liver enzymes. April 02, 2023 liver ultrasound: IMPRESSION: Hyperechoic and sound attenuating liver with focal fatty sparing and without evidence of contour nodularity. Findings are consistent with sequela of fatty infiltration. Few scattered irregularly shaped cysts as well as a 4.6 cm hypoechoic masslike lesion in the right hepatic lobe. April 18, 2023 abdomen MRI: IMPRESSION: 1. Solid enhancing mass of the posterior right hepatic lobe correlating to hypoechoic lesion on recent ultrasound. Enhancement pattern favors benign etiology such as FNH or adenoma although appearance is atypical. 2. Enhancing mass in the spleen atypical MRI features for hemangioma (most common). 3. Given indeterminate US/MRI features of both the liver and splenic lesions, additional evaluation with PET scan versus biopsy recommended, depending on patient''s risk factors for malignancy (none reported at time of dictation). Absent additional workup, short-term follow-up in 3-6 months could be considered. May 03, 2023 PET/CT: IMPRESSION: 1. The increase in radiopharmaceutical concentration manifest within the splenic parenchyma fulfills quantitative criteria for viable neoplasm with single-point technique. (Josefa et al., Journal of Nuclear Medicine 44:1072, 2004). 2. Facilitated uptake noted in the right thyroid colloid may be further investigated with thyroid ultrasound related to the quantitative degree of uptake. May 26, 2023 CT scan with and without contrast: IMPRESSION: Subtly hyperintense lesion right lobe liver corresponding to prior PET/CT and MRI findings likely represents hepatic adenoma. Stable 3 cm splenic lesion which was previously positive on PET/CT examination. No acute findings in the abdomen or pelvis. 2.6 cm left ovarian cyst with adjacent 2.1 cm cyst. June 03, 2023 BONE MARROW DIAGNOSIS Bone marrow biopsy, clot and aspiration: Normocellular bone marrow. Mild megakaryocytic hyperplasia. Decreased stainable iron. Flow cytometry analysis of aspirate material reveals no evidence of lymphoproliferative disorder CYTOGENETICS REPORT FROM [facility] INTERPRETATION: A normal female karyotype was observed in twenty metaphases analyzed. Karyotype: 46,XX FLUORESCENCE IN-SITU HYBRIDIZATION (FISH) FROM [facility] INTERPRETATION: 1. No evidence of trisomy 12 (+12). 2. No evidence of T44I646 (13q14.3). 3. No evidence of p53 (17p13) deletion or amplification. 4. No evidence of JOY (11q22.3) deletion. December 06, 2023 CT abdomen and pelvis: IMPRESSION: 1. Right lobe liver lesion not clearly identified on this examination. 2. Stable 3 cm splenic lesion seen unchanged. 3. No focal acute inflammatory process. 4. Left ovarian cyst unchanged prior exam. December 05, 2024 CT abdomen: IMPRESSION: Stable hepatic cysts. Interval decrease in size of the hypodense nodular density in the inferior aspect of the spleen. [facility] Medical History Chronic renal failure Trigger thumb Wears glasses Cancer Depression Anxiety Alcohol use Thyroid disease Easy bruising High cholesterol Restless legs Migraine headache Vertigo History of ulceration Gastric reflux Former smoker History of edema Normal Holter exam History of echocardiogram Trigger thumb of right hand Gammopathy Lesion of spleen Obesity Dermatitis Heart valve problem Polycystic ovaries Heart murmur Hyperlipidemia Hypertension Chronic headaches Emotional disorder Breast lump blood transfusion Bleeding disorder Back problem Anemia Seasonal allergies Surgical History H/O thumb surgery History of loop electrical excision procedure (LEEP) History of bone marrow biopsy History of D C liposuction to chin History of tonsillectomy and adenoidectomy History of tubal ligation Family History Father Alcohol abuse Anemia Anxiety Arthritis Depression Mental disorder Suicide attempt Heart disease Hypertension High cholesterol Mother Anemia Anxiety Arthritis Depression Hypertension High cholesterol Mental disorder Diabetes Grandmother Bleeding disorder Aunt Breast cancer Myocardial infarction Grandfather Myocardial infarction Grandmother CVA (cerebral va (more content not included)... Normal [facility] Abdomen WITH IV Contraston 0 12-05-2024 Abdomen WITH IV Contrast [facility] Imaging Services [address] [place] [address] Abdomen WITH IV Contrast MR#: [id number] Acct: [id number] Name: SIERRA PATTON Rep #: [id number] : 1970 F 54 From: Rodo seals MD PCP: Dr. Mati Augustine DO Status: REG CLI Study: Abdomen WITH IV Contrast Date of Exam: 5 Exam# [id number] Ordering Dr: Yaniv Crawford MD PROCEDURE: ABDOMEN WITH IV CONTRAST REASON FOR EXAM: Follow-up of splenic lesion. History of hepatic and splenic cysts. Stage 3 kidney disease. TECHNIQUE: Abdomen CT with intravenous contrast. No oral contrast. IV CONTRAST: 100 cc of Isovue-300. COMPARISON: Comparison is made with prior examination dated December 06, 2023. FINDINGS: Lung bases: Clear Liver: Stable hepatic cysts. Gallbladder: Unremarkable. Spleen: Since prior study, the hypodense nodule in the inferior aspect of the spleen has decreased in size. It presently measures 1.4 cm x 2.1 cm. Borderline splenomegaly. Pancreas: Unremarkable. Adrenals: Unremarkable. Kidneys: Unremarkable. Bowel: Visualized loops of bowel in the upper abdomen are unremarkable. Lymph nodes: No suspicious lymph node enlargement. Vasculature: Unremarkable Peritoneum / Retroperitoneum: No ascites or free air at the upper abdomen. Bones: Unremarkable. CT/Abdomen WITH IV Contrast IMPRESSION: Stable hepatic cysts. Interval decrease in size of the hypodense nodular density in the inferior aspect of the spleen. One or more dose reduction techniques were used (e.g., Automated exposure control, adjustment of the mA and/or kV according to patient size, use of iterative reconstruction technique). Reading Location: [id number] CC: Dr. Mati Augustine DO; Dr. Yaniv Crawford MD Compressor Station Operator: Signed Normal [facility] CREATININE FINGERSTICKon CREATININE WB < 1.0 Normal 0.55-1.02 [facility] Comment on above: Performed By: #### L 9100.0200 ####[facility] [id number] [facility] [address] [place], [place], [id number] EGFR WB > 60.0000 Normal >60 [facility] Comment on above: Performed By: #### L 9100.0200 ####[facility] [address] [place], [address] Creatinine measurement at dsideOrdered By: Yaniv Crawford on 12-05-2024 Bedside Creatinine < 1.0 mg/dL 0.55-1.02 [facility] EGFROrdered By: Yaniv joseph on 12-05-2024 Bedside Estimated GFR (eGFR) > 60.0000 mL/min >60 [facility] GFR/1.73 sq M.predicted among non-blacks MDRD (S/P/Bld) [Vol rate/Area] mL/min/{1.73_m2} >60 [facility] SCRN MAMM (CAD)W/KIARRA BILATo n 10-11-2024 SCRN MAMM (CAD)W/KIARRA BILAT [facility] Imaging Services [address] [place] [address] SCRN MAMM (CAD)W/KIARRA BILAT MR#: [id number] Acct: [id number] Name: SIERRA PATTON Rep #: [id number] : 1970 F 54 From: Rodo seals MD PCP: Dr. Mati Augustine, DO Status: [facility] Study: SCRN MAMM (CAD)W/KIARRA BILAT Date of Exam: 06/27 Exam# [id number] Ordering Dr: Yaniv Crawford MD [id number] MAMMOGRAPHY - BILATERAL SCREENING REASON FOR EXAM: Female, 54 years old. Routine annual screening examination. PERTINENT HISTORY: Non-contributory. TECHNIQUE: Digital bilateral breast kiarra (3D mammographic acquisition) in the CC and MLO projections. 2-D mediolateral oblique (MLO) and craniocaudad (CC) views of both breasts were obtained. CAD: Full Field Digital Mammography with Computer Added Detection was performed. COMPARISON: Comparison is made with prior study dated October 2023 and October 07, 2022. FINDINGS: Breast Composition: There are scattered areas of fibroglandular density. There are no dominant masses or suspicious calcifications. Stable small benign-appearing bilateral axillary lymph nodes. No other significant abnormalities are identified. There has been no significant change since the prior study. BI/SCRN MAMM (CAD)W/KIARRA BILAT IMPRESSION: Stable bilateral screening mammogram. Yearly follow-up mammogram recommended. (A) ASSESSMENT CATEGORY: BIRADS Category 2: Benign. A letter regarding these results will be sent to the patient by the facility within 30 days. Approximately 10% of breast cancers are not detected by mammography. A normal mammogram should not delay biopsy of a clinically suspicious abnormality. [id number] Electronically Signed: Rodo Sanford MD at 8:56 EST , CC: Dr. Mati Augustine DO; Dr. Yaniv Crawford MD Compressor Station Operator: Signed Normal [facility] Blood urea nitrogen (BUN)/cr eatinine ratioOrdered By: Briseida Starks on 08-24-2024 Urea nitrogen/Creatinine [Mass ratio] 13.0 mg/mg 10-20 [facility] Carbon dioxide measurementOr dered By: Briseida Starks on 08-24-2024 CO2 [Moles/Vol] 28.0 mmol/L 21.0-32.0 [facility] Chloride measurementOrdered By: Briseida Starks on 08-24-2024 Chloride [Moles/Vol] 106 mmol/L 98-107 [facility] Estimated glomerular filtrat ion rate (GFR) AmericanOrdered By: Briseida Starks on 08-24-2024 Estimated GFR (MDRD) Amer 82 mL/min >60 [facility] Comment on above: GFR Calc Glomerular filtration rate ( GFR) estimationOrdered By: Briseida Starks on 08-24-2024 Estimated GFR (MDRD) Non-Af Amer 67 mL/min >60 [facility] Comment on above: Non- GFR Calc Glucose measurementOrdered B y: Briseida Raudel on 08-24-2024 Glucose [Mass/Vol] 96 mg/dL 74-106 [facility] Phosphorus measurementOrdere d By: Briseida Starks on 08-24-2024 Phosphorus Level 3.6 mg/dL 2.5-4.9 [facility] Potassium measurementOrdered By: Briseida Starks on 08-24-2024 Potassium [Moles/Vol] 3.5 mmol/L 3.5-5.1 [facility] Renal Profileon 08-24-2024 Albumin [Mass/Vol] 4.1 g/dL Normal 3.2-5.0 [facility] Comment on above: Performed By: #### L 500.3600 #### [facility] [address] [place], [address] BUN/CRE 13.0 RATIO Normal 10-20 [facility] Comment on above: Performed By: #### L 500.3600 #### [facility] [address] [place], [address] CA,Total 9.5 mg/dL Normal 8.5-10.1 [facility] Comment on above: Performed By: #### L 500.3600 #### [facility] [address] [place], [address] Chloride [Moles/Vol] 106 mmol/L Normal 98-107 [facility] Comment on above: Performed By: #### L 500.3600 #### [facility] [address] [place], [address] CO2 [Moles/Vol] 28.0 mmol/L Normal 21.0-32.0 [facility] Comment on above: Performed By: #### L 500.3600 #### [facility] [address] [place], [address] Creatinine [Mass/Vol] 0.92 mg/dL Normal 0.55-1.02 [facility] Comment on above: Result Comment: The validity of the calculated GFR GFRAA in patients over 70 years has not been determined. Clinical correlation is essential. Performed By: #### L 500.3600 #### [facility] [address] [place], [address] EST GFR - AA 82 mL/min Normal >60 [facility] Comment on above: Result Comment: Afri can Indonesian GFR Calc Performed By: #### L 500.3600 #### [facility] [address] [place], [address] GFR/1.73 sq M.predicted among non-blacks MDRD (S/P/Bld) [Vol rate/Area] 67 mL/min/{1.73_m2} Normal >60 [facility] Comment on above: Result Comment: Non- GFR Calc Performed By: #### L 500.3600 #### [facility] [address] [place], [address] Glucose [Mass/Vol] 96 mg/dL Normal 74-106 [facility] Comment on above: Performed By: #### L 500.3600 #### [facility] [address] [place], [address] Phosphate [Mass/Vol] 3.6 mg/dL Normal 2.5-4.9 [facility] Comment on above: Performed By: #### L 500.3600 #### [facility] [address] [place], [address] Potassium [Moles/Vol] 3.5 mmol/L Normal 3.5-5.1 [facility] Comment on above: Performed By: #### L 500.3600 #### [facility] [address] [place], [address] Sodium [Moles/Vol] 140 mmol/L Normal 136-145 [facility] Comment on above: Performed By: #### L 500.3600 #### [facility] [address] [place], [address] Urea nitrogen [Mass/Vol] 12 mg/dL Normal - [facility] Comment on above: Performed By: #### L 500.3600 #### [facility] [address] [place], [address] Serum or plasma albumin susanna urement (mass/volume)Ordered By: rBiseida Starks on 08-24-2024 Albumin [Mass/Vol] 4.1 g/dL 3.2-5.0 [facility] Serum or plasma calcium susanna urement (mass/volume)Ordered By: Briseida Starks on 08-24-2024 Calcium [Mass/Vol] 9.5 mg/dL 8.5-10.1 [facility] Serum or plasma creatinine m easurement (mass/volume)Ordered By: Briseida Starks on 08-24-2024 Creatinine [Mass/Vol] 0.92 mg/dL 0.55-1.02 [facility] Comment on above: The validity of the calculated GFR & GFRAA in patients over 70 years has not been determined. Clinical correlation is essential. Serum or plasma urea nitroge n measurement (mass/volume)Ordered By: Briseida Starks on 08-24-2024 Urea nitrogen [Mass/Vol] 12 mg/dL 04-19 [facility] Sodium levelOrdered By: Pooja Starks on 08-24-2024 Sodium [Moles/Vol] 140 mmol/L 136-145 [facility] PAP IG HPV APTIMA 16/18,45on 08-03-2024 ADEQ Comment Normal . [facility] Comment on above: Order Comment: Speci men Comment: [id number] Comment: Source.............Cervix;EndocervixSpecimen Comment: Other..............Post MenopausalSpecimen Comment: No. of containers..01 ThinPrep Vial Result Comment: Sati sfactory for evaluation. Endocervical and/or squamous metaplastic cells (endocervical component) are present. Performed By: #### L 7400.0280 ####[facility] [address] [place], [place], [id number] COMM . Normal . [facility] Comment on above: Order Comment: Speci men Comment: [id number] Comment: Source.............Cervix;EndocervixSpecimen Comment: Other..............Post MenopausalSpecimen Comment: No. of containers..01 ThinPrep Vial Performed By: #### L 7400.0280 ####[facility] [address] [place], [address] COMMENT Comment Normal . [facility] Comment on above: Order Comment: Speci men Comment: [id number] Comment: Source.............Cervix;EndocervixSpecimen Comment: Other..............Post MenopausalSpecimen Comment: No. of containers..01 ThinPrep Vial Result Comment: This liquid based ThinPrep(R) pap test was screened with the use of an image guided system. Performed By: #### L 7400.0280 ####[facility] [address] [place], [place], [id number] DIAG Comment Normal . [facility] Comment on above: Order Comment: Speci men Comment: [id number] Comment: Source.............Cervix;EndocervixSpecimen Comment: Other..............Post MenopausalSpecimen Comment: No. of containers..01 ThinPrep Vial Result Comment: NEGA TIVE FOR INTRAEPITHELIAL LESION OR MALIGNANCY. THIS SPECIMEN WAS RESCREENED PART OF OUR MIDDLE OR INTERMEDIATE SCHOOL PRINCIPAL PROGRAM. Performed By: #### L 7400.0280 ####[facility] [address] [place], [address] HPV APTIMA, HR Negative Normal Negative [facility] Comment on above: Order Comment: Speci men Comment: [id number] Comment: Source.............Cervix;EndocervixSpecimen Comment: Other..............Post MenopausalSpecimen Comment: No. of containers..01 ThinPrep Vial Result Comment: This nucleic acid amplification test detects fourteen high- risk HPV types (16,18,31,33,35,39,45,51,52,56,58,59,66,68) without differentiation. Performed By: #### L 7400.0280 ####[facility] [address] [place], [address] HPV Mayela Rfx Comment Normal . [facility] Comment on above: Order Comment: Speci men Comment: [id number] Comment: Source.............Cervix;EndocervixSpecimen Comment: Other..............Post MenopausalSpecimen Comment: No. of containers..01 ThinPrep Vial Result Comment: Crit eria not met, HPV Genotype not performed. Performed at: - [facility] [id number] Radio Rigger: Em Tavarez MD, Phone: [phone] Performed at: = - [facility] [id number] Radio Rigger: Em Tavarez MD, Phone: [phone] Performed By: #### L 7400.0280 ####[facility] [address] [place], [address] PAPSMR Comment Normal . [facility] Comment on above: Order Comment: Speci men Comment: [id number] Comment: Source.............Cervix;EndocervixSpecimen Comment: Other..............Post MenopausalSpecimen Comment: No. of containers..01 ThinPrep Vial Result Comment: The Pap smear is a screening test designed to aid in the detection of premalignant and malignant conditions of the uterine cervix. It is not a diagnostic procedure and should not be used as the sole means of detecting cervical cancer. Both false-positive and false-negative reports do occur. Performed By: #### L 7400.0280 ####[facility] [address] [place], [address] PERFORM Comment Normal . [facility] Comment on above: Order Comment: Speci men Comment: [id number] Comment: Source.............Cervix;EndocervixSpecimen Comment: Other..............Post MenopausalSpecimen Comment: No. of containers..01 ThinPrep Vial Result Comment: Gregory Merritt, Pig Machine Operator Helper (ASCP) Performed By: #### L 7400.0280 ####[facility] [address] [place], [address] QC REV Comment Normal . [facility] Comment on above: Order Comment: Speci men Comment: [id number] Comment: Source.............Cervix;EndocervixSpecimen Comment: Other..............Post MenopausalSpecimen Comment: No. of containers..01 ThinPrep Vial Result Comment: Melisa Zuñiga, Supervisory Pig Machine Operator Helper (ASCP) Performed By: #### L 7400.0280 ####[facility] [address] [place], [place], [address] Chopper Gun Operator Office Visit Reporton 07-27-2024 Chopper Gun Operator Office Visit Report [facility] [address], [address] [place] [address] OFFICE VISIT Date of Service: 07/27/24 MR#: [id number] Acct: [id number] Name: SIERRA PATTON Rep #: [id number] : 1970 Provider: Dr. 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) 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 Is patient in pain?: No Allergies clindamycin Allergy (Severe, Verified 07/27/24 09:25) burning watery eyes Sulfa (Sulfonamide Antibiotics) Allergy (Severe, Verified 07/27/24 09:25) Hives erythromycin base Allergy (Verified 07/27/24 09:25) eye redness, watering, swelling Medications ???Medication ???Instructions ???Recorded ???Confirmed ???Type omeprazole magnesium 20 mg 20 mg PO BID #180 tabs 03/22/23 07/27/24 Rx tablet,delayed release (Prilosec OTC) clobetasol 0.05 % topical ointment 1 applic topical DAILY 12/05/23 07/27/24 History nystatin 100,000 unit/gram topical 1 applic topical BID PRN SKIN 12/05/23 07/27/24 History powder rosuvastatin 10 mg tablet 10 mg PO DAILY #90 tabs 01/23/24 06/26/24 Rx valacyclovir 500 mg tablet 500 mg PO DAILY #90 tabs 02/24/24 06/26/24 Rx metoprolol succinate 50 mg 50 mg PO BID #60 tabs 05/18/24 07/27/24 Rx tablet,extended release 24 hr venlafaxine 150 mg 300 mg (2 x 150 mg) PO DAILY #60 05/18/24 06/26/24 Rx capsule,extended release 24 hr caps (Effexor XR) clonazepam 1 mg tablet (Klonopin) See Rx Instructions PO QHS #60 tabs 06/26/24 07/27/24 Rx triamterene 37.5 0.5 tab PO QAM 07/27/24 History mg-hydrochlorothiazide 25 mg tablet Is last menstrual period known: Yes Last Menstrual Period: 05/26/23 Post menopausal: Yes Patient : No : No PFSH Medical History (Updated 06/26/24 @ 09:[address] Mati Augustine, DO) Chronic renal failure Trigger thumb Wears glasses Cancer Depression Anxiety Alcohol use Thyroid disease Easy bruising High cholesterol Restless legs Migraine headache Vertigo History of ulceration Gastric reflux Former smoker History of edema Normal Holter exam History of echocardiogram Trigger thumb of right hand Gammopathy Lesion of spleen Obesity Dermatitis Heart valve problem Polycystic ovaries Heart murmur Hyperlipidemia Hypertension Chronic headaches Emotional disorder Breast lump blood transfusion Bleeding disorder Back problem Anemia Seasonal allergies Surgical History (Updated 07/27/24 @ 09:30 by Miracle Mcgowan) H/O thumb surgery History of loop electrical excision procedure (LEEP) History of bone marrow biopsy History of D C liposuction to chin History of tonsillectomy and adenoidectomy History of tubal ligation Family History Father Alcohol abuse Anemia Anxiety Arthritis Depression Mental disorder Suicide attempt Heart disease Hypertension High cholesterol Mother Anemia Anxiety Arthritis Depression Hypertension High cholesterol Mental disorder Diabetes Grandmother Bleeding disorder Aunt Breast cancer Myocardial infarction Grandfather Myocardial infarction Grandmother CVA (cerebral vascular accident) Social History (Updated 07/27/24 @ 09:31 by Miracle Mcgowan) current occupational status: employed current occupation: [employer] Smoking Status: Former smoker alcohol intake: current alcohol intake frequency: a few times a month Alcohol type: wine substance use type: does not use caffeine: Yes what type of physical activity do you participate in: walking and other details: rowing frequency: 1-2 times per week History 3 Elective abortions Hx Para 3 Spontaneous abortions Hx # Term Pregnancies Ectopic pregnancies Hx # Pregnancies Multiple births # of living children HPI Encounter for routine gynecological examination Details: SIERRA PATTON is a 53 year old who presents for annual exam. Last PAP: 07/18/2023 History of abnormal PAP: yes, yearly paps recommended due to stage 3 renal failure Last mammogram: 10/2022 History of abnormal mammogram: no Colon cancer screenin due in 2028 Other preventative health care screenings: BIM Female Reproductive History Last Menstrual Period: 05/26/23 Questions: metorrhagia: No, sexually active: Yes, dyspareunia: No and PCB: No Menopausal (more content not included)... Normal [facility] Internal Medicine Office Vis iton 06-26-2024 Internal Medicine Office Visit [facility] [address] [place] [address] [place] [address] OFFICE VISIT Date of Service: 06/26/24 MR#: [id number] Acct: [id number] Name: SIERRA PATTON Rep #: [id number] : 1970 Provider: Dr. Mati aj, DO Age/Sex: 53/F Location: [place] Status: Signed Intake Vital Signs 12/27/23 09:30 06/12/24 11:29 06/26/24 08:24 Height 5 ft 2 in 5 ft 2 in 5 ft 2 in Weight: 177 lb 2 oz BMI 32.3 BP 118/72 Blood Pressure Location Lt brachial Position Sitting Respiration 16 Pulse 83 Pulse Source Monitor Temp 97.3 F L Temp Source Temporal Pulse Oximetry (%) 98 Oxygen Delivery Method room air Intake Visit Reasons: 6 M FU Chief Complaint: 6m f/u 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 Accompanied by: Self Is patient in pain?: No Allergies clindamycin Allergy (Severe, Verified 06/26/24 08:20) burning watery eyes Sulfa (Sulfonamide Antibiotics) Allergy (Severe, Verified 06/26/24 08:20) Hives erythromycin base Allergy (Verified 06/26/24 08:20) eye redness, watering, swelling Medications ???Medication ???Instructions ???Recorded ???Confirmed ???Type omeprazole magnesium 20 mg 20 mg PO BID #180 tabs 03/22/23 06/26/24 Rx tablet,delayed release (Prilosec OTC) clobetasol 0.05 % topical ointment 1 applic topical DAILY 12/05/23 06/26/24 History nystatin 100,000 unit/gram topical 1 applic topical BID PRN SKIN 12/05/23 06/26/24 History powder rosuvastatin 10 mg tablet 10 mg PO DAILY #90 tabs 01/23/24 06/26/24 Rx valacyclovir 500 mg tablet 500 mg PO DAILY #90 tabs 02/24/24 06/26/24 Rx triamterene 37.5 1 tab PO QAM #90 tabs 04/19/24 06/26/24 Rx mg-hydrochlorothiazide 25 mg tablet metoprolol succinate 50 mg 50 mg PO BID #60 tabs 05/18/24 06/26/24 Rx tablet,extended release 24 hr venlafaxine 150 mg 300 mg (2 x 150 mg) PO DAILY #60 05/18/24 06/26/24 Rx capsule,extended release 24 hr caps (Effexor XR) clonazepam 1 mg tablet (Klonopin) See Rx Instructions PO QHS #60 tabs 06/26/24 06/26/24 Rx PFSH Medical History Chronic renal failure Trigger thumb Wears glasses Cancer Depression Anxiety Alcohol use Thyroid disease Easy bruising High cholesterol Restless legs Migraine headache Vertigo History of ulceration Gastric reflux Former smoker History of edema Normal Holter exam History of echocardiogram Trigger thumb of right hand Gammopathy Lesion of spleen Obesity Dermatitis Heart valve problem Polycystic ovaries Heart murmur Hyperlipidemia Hypertension Chronic headaches Emotional disorder Breast lump blood transfusion Bleeding disorder Back problem Anemia Seasonal allergies Surgical History History of loop electrical excision procedure (LEEP) History of bone marrow biopsy History of D C liposuction to chin History of tonsillectomy and adenoidectomy History of tubal ligation Family History Father Alcohol abuse Anemia Anxiety Arthritis Depression Mental disorder Suicide attempt Heart disease Hypertension High cholesterol Mother Anemia Anxiety Arthritis Depression Hypertension High cholesterol Mental disorder Diabetes Grandmother Bleeding disorder Aunt Breast cancer Myocardial infarction Grandfather Myocardial infarction Grandmother CVA (cerebral vascular accident) Social History Smoking Status: Former smoker alcohol intake: current alcohol intake frequency: a few times a month Alcohol type: wine substance use type: does not use caffeine: Yes what type of physical activity do you participate in: walking and other details: rowing frequency: 1-2 times per week HPI HPI Chief Complaint: 6m f/u Details: SIERRA PATTON, is a 53 F who presents to the office today for refill on her Klonopin. She is doing relatively well although her anemia is not completely resolved. She has chronic kidney disease stage IIIa according to her creatinine but it is changed very little over the past 3 years. She complains of discomfort in her right ear discomfort in her right shoulder and some chronic neck pain. ROS Const Constitutional: No body ache, chills, excessive sweating, fatigue, fever(s), frequent falls, headache(s), snoring, weakness or change in appetite Eyes Eyes: No blurry vision, change in vision, eye pain or Light sensitivity ENT ENT: No abnormal hearing, ear or mastoid pain, tinnitus, nasal congestion, headache(s), neck pain or sore throat Resp Respiratory: No cough, shortness of breath, snoring or wheezing Cardio Cardiology: No chest pain at rest, chest pain with exertion, excessive sweating, dyspnea on ex (more content not included)... Normal [facility] Absolute lymphocyte countOrd ered By: Yaniv Crawford on 06-12-2024 Lymphocytes Auto (Unsp spec) [#/Vol] 1.57 10*3/uL 0.83-4.51 [facility] Absolute neutrophil countOrd ered By: Yaniv Crawford on 06-12-2024 Neutrophils (Bld) [#/Vol] 4.4 10*3/uL 2.0-7.7 [facility] Alanine aminotransferase (AL T) assayOrdered By: Yaniv Crawford on 06-12-2024 ALT [Catalytic activity/Vol] 40 U/L Normal 13-56 [facility] Comment on above: Order Comment: 1 Performed By: #### L 504.2610, L503.6030, L500.4050, L100.9950, L100.0100, L503.6550 #### [facility] [address] [place], [place], [id number] Albumin to globulin ratioOrd ered By: Yaniv Crawford on 06-12-2024 Albumin/Globulin [Mass ratio] 1.1 {ratio} Normal 0.9-2.4 [facility] Comment on above: Order Comment: 1 Performed By: #### L 504.2610, L503.6030, L500.4050, L100.9950, L100.0100, L503.6550 #### [facility] [address] [place], [address] Alkaline phosphataseOrdered By: Yaniv Crawford on 06-12-2024 ALP [Catalytic activity/Vol] 151 U/L High 45-117 [facility] Automated blood erythrocyte countOrdered By: Yaniv Crawford on 06-12-2024 RBC (Bld) [#/Vol] 3.88 10*6/uL Low 4.2-5.4 [facility] Comment on above: Performed By: #### L 504.2610, L503.6030, L500.4050, L100.9950, L100.0100, L503.6550 #### [facility] [address] [place], [address] Automated blood hematocrit ( percentage)Ordered By: aYniv Crawford on 06-12-2024 Hematocrit (Bld) [Volume fraction] 32.0 % Low 37-47 [facility] Comment on above: Performed By: #### L 504.2610, L503.6030, L500.4050, L100.9950, L100.0100, L503.6550 #### [facility] [address] [place], [address] Automated lymphocyte count a s percentage of total leukocytesOrdered By: Yaniv Crawford on 06-12-2024 Lymphocytes/100 WBC (Bld) 23.2 % Normal - [facility] [facility] Comment on above: Performed By: #### L 504.2610, L503.6030, L500.4050, L100.9950, L100.0100, L503.6550 #### [facility] [address] [place], [address] Lymphocytes/100 WBC Auto (Unsp spec) 23.2 % 19-41 [facility] Basophil percentageOrdered B y: Yaniv Ty on 06-12-2024 Basophils/100 WBC (Bld) 0.7 % Normal 0-1 [facility] Comment on above: Performed By: #### L 504.2610, L503.6030, L500.4050, L100.9950, L100.0100, L503.6550 #### [facility] [address] [place], [place], [phone] ([phone]) Bilirubin, totalOrdered By: Brantwayne Crawford on 06-12-2024 Bilirubin [Mass/Vol] 0.40 mg/dL Normal 0.20-1.00 [facility] Comment on above: For patients on eltr ombopag therapy, use of Dimension [place] TBIL is not recommended. Order Comment: 1 Result Comment: For patients on eltrombopag therapy, use of Dimension [place] TBIL is not recommended. Performed By: #### L 504.2610, L503.6030, L500.4050, L100.9950, L100.0100, L503.6550 #### [facility] [address] [place], [address] Blood urea nitrogen (BUN)/cr eatinine ratioOrdered By: Yaniv Crawford on 06-12-2024 Urea nitrogen/Creatinine [Mass ratio] 13.6 mg/mg 10-20 [facility] CBC W/Diff, Automatedon 06-03 Absolute Lymph 1.57 X10 3/uL Normal 0.83-4.51 [facility] Comment on above: Performed By: #### L 504.2610, L503.6030, L500.4050, L100.9950, L100.0100, L503.6550 #### [facility] [address] [place], [address] ([phone]) Absolute Neut 4.4 X10 3/uL Normal 2.0-7.7 [facility] Comment on above: Performed By: #### L 504.2610, L503.6030, L500.4050, L100.9950, L100.0100, L503.6550 #### [facility] [address] [place], [address] IG% 0.300 Normal 0.0-0.9 [facility] Comment on above: Result Comment: IG% - Immature Granulocytes (promyelocytes, myelocytes and metamyelocytes) > 1% indicates that a LEFT SHIFT is Present. Performed By: #### L 504.2610, L503.6030, L500.4050, L100.9950, L100.0100, L503.6550 #### [facility] [address] [place], [place], [phone] Nucleated RBC (Bld) [#/Vol] 0 10*3/uL Normal 0-5 [facility] Comment on above: Performed By: #### L 504.2610, L503.6030, L500.4050, L100.9950, L100.0100, L503.6550 #### [facility] [address] [place], [place], [phone] RDW SD 42.2 fl Normal 35.1-43.9 [facility] Comment on above: Performed By: #### L 504.2610, L503.6030, L500.4050, L100.9950, L100.0100, L503.6550 #### [facility] [address] [place], [place], [phone] Carbon dioxide measurementOr dered By: Yaniv Crawford on 06-12-2024 CO2 [Moles/Vol] 30.0 mmol/L Normal 21.0-32.0 [facility] Comment on above: Order Comment: 1 Performed By: #### L 504.2610, L503.6030, L500.4050, L100.9950, L100.0100, L503.6550 #### [facility] [address] [place], [address] Chloride measurementOrdered By: Yaniv Crawford on 06-12-2024 Chloride [Moles/Vol] 102 mmol/L Normal 98-107 [facility] Comment on above: Order Comment: 1 Performed By: #### L 504.2610, L503.6030, L500.4050, L100.9950, L100.0100, L503.6550 #### [facility] [address] [place], [address] Comprehensive Metabolic Prof ilon 06-12-2024 ALK P 151 U/L High 45-117 [facility] Comment on above: Order Comment: 1 Performed By: #### L 504.2610, L503.6030, L500.4050, L100.9950, L100.0100, L503.6550 #### [facility] [address] [place], [address] BUN/CRE 13.6 RATIO Normal 10-20 [facility] Comment on above: Order Comment: 1 Performed By: #### L 504.2610, L503.6030, L500.4050, L100.9950, L100.0100, L503.6550 #### [facility] [address] [place], [address] CA,Total 9.6 mg/dL Normal 8.5-10.1 [facility] Comment on above: Order Comment: 1 Performed By: #### L 504.2610, L503.6030, L500.4050, L100.9950, L100.0100, L503.6550 #### [facility] [address] [place], [address] ECRCL 58.61 ml/min Normal [facility] Comment on above: Order Comment: 1 Performed By: #### L 504.2610, L503.6030, L500.4050, L100.9950, L100.0100, L503.6550 #### [facility] [address] [place], [address] EST GFR - AA 67 mL/min Normal >60 [facility] Comment on above: Order Comment: 1 Result Comment: Afri can Indonesian GFR Calc Performed By: #### L 504.2610, L503.6030, L500.4050, L100.9950, L100.0100, L503.6550 #### [facility] [address] [place], [address] GAP 6 Normal 5-15 [facility] Comment on above: Order Comment: 1 Performed By: #### L 504.2610, L503.6030, L500.4050, L100.9950, L100.0100, L503.6550 #### [facility] [address] [place], [address] T PROT 8.0 g/dL Normal 6.4-8.2 [facility] Comment on above: Order Comment: 1 Performed By: #### L 504.2610, L503.6030, L500.4050, L100.9950, L100.0100, L503.6550 #### [facility] [address] [place], [address] Comprehensive Metabolic Prof ilOrdered By: Yaniv Crawford on 06-12-2024 AST [Catalytic activity/Vol] 26 U/L Normal 15-37 [facility] Comment on above: Order Comment: 1 Performed By: #### L 504.2610, L503.6030, L500.4050, L100.9950, L100.0100, L503.6550 #### [facility] [address] [place], [address] Eosinophil percentageOrdered By: Yaniv Crawford on 06-12-2024 Eosinophils/100 WBC (Bld) 5.0 % Normal 0-5 [facility] Comment on above: Performed By: #### L 504.2610, L503.6030, L500.4050, L100.9950, L100.0100, L503.6550 #### [facility] [address] [place], [address] Erythrocyte distribution wid th ratioOrdered By: Yaniv Crawford on 06-12-2024 Erythrocyte distribution width (RBC) [Ratio] 14.3 % Normal 11.6-14.6 [facility] Comment on above: Performed By: #### L 504.2610, L503.6030, L500.4050, L100.9950, L100.0100, L503.6550 #### [facility] [address] [place], [address] Erythrocyte distribution wid th standard deviationOrdered By: Yaniv Crawford on 06-12-2024 Erythrocyte distribution width (RBC) [Entitic vol] 42.2 fL 35.1-43.9 [facility] Erythrocyte distribution width (RBC) [Ratio] 42.2 fl 35.1-43.9 [facility] Estimated glomerular filtrat ion rate (GFR) AmericanOrdered By: Yaniv Crawford on 06-12-2024 Estimated GFR (MDRD) Amer 67 mL/min >60 [facility] Comment on above: GFR Calc Estimation of creatinine krista aranceOrdered By: Yaniv Crawford on 06-12-2024 Estimated Creatinine Clearance Calc 58.61 ml/min [facility] Ferritin measurementOrdered By: Yaniv Crawford on 06-12-2024 Ferritin [Mass/Vol] 93 ng/mL Normal 8-252 [facility] Comment on above: Order Comment: 1 Performed By: #### L 504.2610, L503.6030, L500.4050, L100.9950, L100.0100, L503.6550 ####[facility] [address] [place], [address] Glomerular filtration rate ( GFR) estimationOrdered By: Yaniv Crawford on 06-12-2024 GFR/1.73 sq M.predicted among non-blacks MDRD (S/P/Bld) [Vol rate/Area] 55 mL/min/{1.73_m2} Low >60 [facility] Comment on above: Non- GFR Calc Order Comment: 1 Result Comment: Non- GFR Calc Performed By: #### L 504.2610, L503.6030, L500.4050, L100.9950, L100.0100, L503.6550 #### [facility] [address] [place], [address] Estimated GFR (MDRD) Non-Af Amer 55 mL/min Low >60 [facility] Comment on above: Non- GFR Calc Glucose measurementOrdered B y: Yaniv Crawford on 06-12-2024 Glucose [Mass/Vol] 109 mg/dL High 74-106 [facility] Comment on above: Fasting Glucose resu lt from 100 to 125 mg/dL suggests IMPAIRED HOMEOSTASIS per A.D.A. criteria. Order Comment: 1 Result Comment: Fast ing Glucose result from 100 to 125 mg/dL suggests IMPAIRED HOMEOSTASIS per A.D.A. criteria. Performed By: #### L 504.2610, L503.6030, L500.4050, L100.9950, L100.0100, L503.6550 #### [facility] [address] [place], [address] Hemoglobin (Reticulocytes) [ Entitic mass]Ordered By: Yaniv Crawford on 06-12-2024 Reticulocyte Hemoglobin Equivalent 31.4 pg 30-35 [facility] Hemoglobin measurementOrdere d By: Yaniv Crawford on 06-12-2024 Hemoglobin (Bld) [Mass/Vol] 10.9 g/dL Low 12.0-15.0 [facility] Comment on above: Performed By: #### L 504.2610, L503.6030, L500.4050, L100.9950, L100.0100, L503.6550 #### [facility] [address] [place], [address] Immature granulocytes/100 WB C Auto (Bld)Ordered By: Manswayne Crawford on 06-12-2024 Immature granulocytes/100 WBC (Bld) 0.300 % 0.0-0.9 [facility] Comment on above: IG% - Immature Granu locytes (promyelocytes, myelocytes and metamyelocytes) > 1% indicates that a LEFT SHIFT is Present. Immature reticulocyte fracti onOrdered By: Brantwayne Crawford on 06-12-2024 Immature Reticulocyte Fraction 8.70 % 3.00-15.90 [facility] Iron measurement (mass/mass) Ordered By: Yaniv Crawford on 06-12-2024 Iron [Mass/Vol] 64 ug/dL Normal 50-170 [facility] Comment on above: Order Comment: 1 Performed By: #### L 504.2610, L503.6030, L500.4050, L100.9950, L100.0100, L503.6550 ####[facility] [address] [place], [place], [phone](226) Iron (Unsp spec) [Mass/Mass] 64 ug/dL 50-170 [facility] Iron saturation [Mass fracti on]Ordered By: Yaniv Ty on 06-12-2024 Iron Saturation 21.3 % 15.0-55.0 [facility] Iron+Iron Binding Capacityon 06-12-2024 IRON SATURATION 21.3 Normal 15.0-55.0 [facility] Comment on above: Order Comment: 1 Performed By: #### L 504.2610, L503.6030, L500.4050, L100.9950, L100.0100, L503.6550 ####[facility] [address] [place], [place], [phone] TIBC 301 ug/dL Normal 250-450 [facility] Comment on above: Order Comment: 1 Performed By: #### L 504.2610, L503.6030, L500.4050, L100.9950, L100.0100, L503.6550 ####[facility] [address] [place], [address] LDHon 06-12-2024 LDH 212 U/L Normal 84-246 [facility] Comment on above: Order Comment: 1 Performed By: #### L 504.2610, L503.6030, L500.4050, L100.9950, L100.0100, L503.6550 ####[facility] [address] [place], [address] Lactate dehydrogenase (LDH) measurementOrdered By: Yaniv Crawford on 06-12-2024 LDH [Catalytic activity/Vol] 212 U/L 84-246 [facility] Lymphocytes Auto (Unsp spec) [#/Vol]Ordered By: Yaniv Crawford on 06-12-2024 Lymphocytes (Bld) [#/Vol] 1.57 10*3/uL 0.83-4.51 [facility] MCV (mean corpuscular volume ) determinationOrdered By: Yaniv Crawford on 06-12-2024 MCV (RBC) [Entitic vol] 82.5 fL Normal 81-99 [facility] Comment on above: Performed By: #### L 504.2610, L503.6030, L500.4050, L100.9950, L100.0100, L503.6550 #### [facility] [address] [place], [place], [phone] Mean corpuscular hemoglobin (MCH) determinationOrdered By: Yaniv Crawford on 06-12-2024 MCH (RBC) [Entitic mass] 28.1 pg Normal 27.0-32.0 [facility] Comment on above: Performed By: #### L 504.2610, L503.6030, L500.4050, L100.9950, L100.0100, L503.6550 #### [facility] [address] [place], [place], [phone] Mean corpuscular hemoglobin concentration (MCHC) determinationOrdered By: Yaniv Crawford on 06-12-2024 MCHC (RBC) [Mass/Vol] 34.1 g/dL Normal 32-36 [facility] Comment on above: Performed By: #### L 504.2610, L503.6030, L500.4050, L100.9950, L100.0100, L503.6550 #### [facility] [address] [place], [place], [phone] (651) Mean platelet volume determi nationOrdered By: Yaniv Crawford on 06-12-2024 Platelet mean volume (Bld) [Entitic vol] 8.8 fL Normal 6.2-12.0 [facility] Comment on above: Performed By: #### L 504.2610, L503.6030, L500.4050, L100.9950, L100.0100, L503.6550 #### [facility] [address] [place], [address] (539) Monocyte percentageOrdered B y: Yaniv Crawford on 06-12-2024 Monocytes/100 WBC (Bld) 5.3 % Normal 0-10 [facility] Comment on above: Performed By: #### L 504.2610, L503.6030, L500.4050, L100.9950, L100.0100, L503.6550 #### [facility] [address] [place], [place], [phone] (603) Neutrophil percentageOrdered By: Yaniv Crawford on 06-12-2024 Neutrophils/100 WBC (Bld) 65.5 % Normal 47-70 [facility] Comment on above: Performed By: #### L 504.2610, L503.6030, L500.4050, L100.9950, L100.0100, L503.6550 #### [facility] [address] [place], [place], [phone] ([phone] Nucleated red blood cell per centageOrdered By: Yaniv Crawford on 06-12-2024 Nucleated RBC/100 WBC (Bld) [Ratio] 0 % 0-5 [facility] Oncology Visit Reporton 06-03 Oncology Visit Report [facility] [address] [place] [address] OFFICE VISIT Date of Service: 06/12/24 1127 MR#: [id number] Acct: [id number] Name: SIERRA PATTON Rep #: [id number] : 1970 From: Yaniv Crawford MD Age/Sex: 53/F Location: [facility] Status: Signed HPI Subjective Date of Service 06/12/24 Chief Complaint Spleen lesion History of Present Illness 52-year-old female, perimenopausal who was evaluated for elevated liver enzymes. April 02, 2023 liver ultrasound: IMPRESSION: Hyperechoic and sound attenuating liver with focal fatty sparing and without evidence of contour nodularity. Findings are consistent with sequela of fatty infiltration. Few scattered irregularly shaped cysts as well as a 4.6 cm hypoechoic masslike lesion in the right hepatic lobe. April 18, 2023 abdomen MRI: IMPRESSION: 1. Solid enhancing mass of the posterior right hepatic lobe correlating to hypoechoic lesion on recent ultrasound. Enhancement pattern favors benign etiology such as FNH or adenoma although appearance is atypical. 2. Enhancing mass in the spleen atypical MRI features for hemangioma (most common). 3. Given indeterminate US/MRI features of both the liver and splenic lesions, additional evaluation with PET scan versus biopsy recommended, depending on patient''s risk factors for malignancy (none reported at time of dictation). Absent additional workup, short-term follow-up in 3-6 months could be considered. May 03, 2023 PET/CT: IMPRESSION: 1. The increase in radiopharmaceutical concentration manifest within the splenic parenchyma fulfills quantitative criteria for viable neoplasm with single-point technique. (Josefa et al., Journal of Nuclear Medicine 44:1072, 2004). 2. Facilitated uptake noted in the right thyroid colloid may be further investigated with thyroid ultrasound related to the quantitative degree of uptake. May 26, 2023 CT scan with and without contrast: IMPRESSION: Subtly hyperintense lesion right lobe liver corresponding to prior PET/CT and MRI findings likely represents hepatic adenoma. Stable 3 cm splenic lesion which was previously positive on PET/CT examination. No acute findings in the abdomen or pelvis. 2.6 cm left ovarian cyst with adjacent 2.1 cm cyst. June 03, 2023 BONE MARROW DIAGNOSIS Bone marrow biopsy, clot and aspiration: Normocellular bone marrow. Mild megakaryocytic hyperplasia. Decreased stainable iron. Flow cytometry analysis of aspirate material reveals no evidence of lymphoproliferative disorder CYTOGENETICS REPORT FROM [facility] INTERPRETATION: A normal female karyotype was observed in twenty metaphases analyzed. Karyotype: 46,XX FLUORESCENCE IN-SITU HYBRIDIZATION (FISH) FROM [facility] INTERPRETATION: 1. No evidence of trisomy 12 (+12). 2. No evidence of C88C520 (13q14.3). 3. No evidence of p53 (17p13) deletion or amplification. 4. No evidence of JOY (11q22.3) deletion. December 06, 2023 CT abdomen and pelvis: IMPRESSION: 1. Right lobe liver lesion not clearly identified on this examination. 2. Stable 3 cm splenic lesion seen unchanged. 3. No focal acute inflammatory process. 4. Left ovarian cyst unchanged prior exam. [facility] Medical History (Updated 06/12/24 @ 11:[address] Yaniv Crawford MD) Chronic renal failure Trigger thumb Wears glasses Cancer Depression Anxiety Alcohol use Thyroid disease Easy bruising High cholesterol Restless legs Migraine headache Vertigo History of ulceration Gastric reflux Former smoker History of edema Normal Holter exam History of echocardiogram Trigger thumb of right hand Gammopathy Lesion of spleen Obesity Dermatitis Heart valve problem Polycystic ovaries Heart murmur Hyperlipidemia Hypertension Chronic headaches Emotional disorder Breast lump blood transfusion Bleeding disorder Back problem Anemia Seasonal allergies Surgical History History of loop electrical excision procedure (LEEP) History of bone marrow biopsy History of D C liposuction to chin History of tonsillectomy and adenoidectomy History of tubal ligation Family History Father Alcohol abuse Anemia Anxiety Arthritis Depression Mental disorder Suicide attempt Heart disease Hypertension High cholesterol Mother Anemia Anxiety Arthritis Depression Hypertension High cholesterol Mental disorder Diabetes Grandmother Bleeding disorder Aunt Breast cancer Myocardial infarction Grandfather Myocardial infarction Grandmother CVA (cerebral vascular accident) Social History Smoking Status: Former smoker alcohol intake: current alcohol intake frequency: a (more content not included)... Normal [facility] Platelet countOrdered By: Shey Crawford on 06-12-2024 Platelets (Bld) [#/Vol] 340 10*3/uL Normal 150-450 [facility] Comment on above: Performed By: #### L 504.2610, L503.6030, L500.4050, L100.9950, L100.0100, L503.6550 #### [facility] [address] [place], [place], [phone] Potassium measurementOrdered By: Yaniv Crawford on 06-12-2024 Potassium [Moles/Vol] 3.7 mmol/L Normal 3.5-5.1 [facility] Comment on above: Order Comment: 1 Performed By: #### L 504.2610, L503.6030, L500.4050, L100.9950, L100.0100, L503.6550 #### [facility] [address] [place], [place], [phone] Retic Panelon 06-12-2024 IM RET FRACTION 8.70 Normal 3.00-15.90 [facility] Comment on above: Performed By: #### L 504.2610, L503.6030, L500.4050, L100.9950, L100.0100, L503.6550 #### [facility] [address] [place], [address] RET-HE 31.4 pg Normal 30-35 [facility] Comment on above: Performed By: #### L 504.2610, L503.6030, L500.4050, L100.9950, L100.0100, L503.6550 #### [facility] [address] [place], [address] Retic Count 2.06 High 0.5-1.5 [facility] Comment on above: Performed By: #### L 504.2610, L503.6030, L500.4050, L100.9950, L100.0100, L503.6550 #### [facility] [address] [place], [address] Reticulocyte hemoglobin equi valent (RET-He) measurementOrdered By: Yaniv Crawford on 06-12-2024 Hemoglobin (Reticulocytes) [Entitic mass] 31.4 pg 30-35 [facility] Reticulocytes Auto (Bld) [#/ Vol]Ordered By: Yaniv Crawford on 06-12-2024 Reticulocyte Count 2.06 % High 0.5-1.5 [facility] Reticulocytes/100 RBC (Bld) 2.06 % High 0.5-1.5 [facility] Serum albumin measurementOrd ered By: Yaniv Crawford on 06-12-2024 Albumin [Mass/Vol] 4.1 g/dL Normal 3.2-5.0 [facility] Comment on above: Order Comment: 1 Performed By: #### L 504.2610, L503.6030, L500.4050, L100.9950, L100.0100, L503.6550 #### [facility] [address] [place], [address] Serum anion gap measurementO rdered By: Yaniv Crawford on 06-12-2024 Anion gap [Moles/Vol] 6 mmol/L 5-15 [facility] Serum globulin measurementOr dered By: Yaniv Crawford on 06-12-2024 Globulin (S) [Mass/Vol] 3.9 g/dL Normal 2.2-4.2 [facility] Comment on above: Order Comment: 1 Performed By: #### L 504.2610, L503.6030, L500.4050, L100.9950, L100.0100, L503.6550 #### [facility] [address] [facility] [place], [address] Serum or plasma calcium susanna urement (mass/volume)Ordered By: Yaniv Crawford on 06-12-2024 Calcium [Mass/Vol] 9.6 mg/dL 8.5-10.1 [facility] Serum or plasma creatinine m easurement (mass/volume)Ordered By: Yaniv Crawford on 06-12-2024 Creatinine [Mass/Vol] 1.10 mg/dL High 0.55-1.02 [facility] Comment on above: The validity of the calculated GFR & GFRAA in patients over 70 years has not been determined. Clinical correlation is essential. Order Comment: 1 Result Comment: The validity of the calculated GFR GFRAA in patients over 70 years has not been determined. Clinical correlation is essential. Performed By: #### L 504.2610, L503.6030, L500.4050, L100.9950, L100.0100, L503.6550 #### [facility] [address] [place], [address] Serum or plasma iron saturat ion measurement (mass fraction)Ordered By: Yaniv Crawford on 06-12-2024 Iron saturation [Mass fraction] 21.3 % 15.0-55.0 [facility] Serum or plasma urea nitroge n measurement (mass/volume)Ordered By: Yaniv Crawford on 06-12-2024 Urea nitrogen [Mass/Vol] 15 mg/dL Normal 7-18 [facility] Comment on above: Order Comment: 1 Performed By: #### L 504.2610, L503.6030, L500.4050, L100.9950, L100.0100, L503.6550 #### [facility] [address] [place] [place], [address] Sodium levelOrdered By: Brant Crawford on 06-12-2024 Sodium [Moles/Vol] 138 mmol/L Normal 136-145 [facility] Comment on above: Order Comment: 1 Performed By: #### L 504.2610, L503.6030, L500.4050, L100.9950, L100.0100, L503.6550 #### [facility] [address] [place], [address] TIBCOrdered By: Yaniv joseph on 06-12-2024 Total Iron Binding Capacity 301 ug/dL 250-450 [facility] Total proteinOrdered By: Flaco Crawford on 06-12-2024 Protein [Mass/Vol] 8.0 g/dL 6.4-8.2 [facility] White blood cell (WBC) count Ordered By: Yaniv Huffmanjennifer on 06-12-2024 WBC (Bld) [#/Vol] 6.8 10*3/uL Normal 4.4-11.0 [facility] Comment on above: Performed By: #### L 504.2610, L503.6030, L500.4050, L100.9950, L100.0100, L503.6550 #### [facility] [address] [place], [place], [address] .Auto Diffon 02-04-2024 Basophil, Absolute 0.1 10 3/mcL Normal 0.0-0.2 [facility] ([place]) Comment on above: Performed By: #### G FR, CBC, ADIFF, ANEU, MDW, ESR, BMP, CRP #### [address] [address] Basophils/100 WBC (Bld) 0.9 % Normal 0.0-2.5 [facility] ([place]) Comment on above: Performed By: #### G FR, CBC, ADIFF, ANEU, MDW, ESR, BMP, CRP #### [address] [address] Eosinophil, Absolute 0.2 10 3/mcL Normal 0.0-0.4 Formerly [facility], [facility] ([place]) Comment on above: Performed By: #### G FR, CBC, ADIFF, ANEU, MDW, ESR, BMP, CRP #### [address] [address] Eosinophils/100 WBC (Bld) 2.1 % Normal 0.0-7.0 [facility] ([place]) Comment on above: Performed By: #### G FR, CBC, ADIFF, ANEU, MDW, ESR, BMP, CRP #### [address] [address] Lymphocyte, Absolute 1.2 10 3/mcL Normal 0.8-3.9 [facility]ly [facility], [facility] ([place] Comment on above: Performed By: #### G FR, CBC, ADIFF, ANEU, MDW, ESR, BMP, CRP #### [address] [address] Lymphocytes/100 WBC (Bld) 13.3 % Normal 10.0-50.0 [facility] ([place] Comment on above: Performed By: #### G FR, CBC, ADIFF, ANEU, MDW, ESR, BMP, CRP #### [address] [address] Monocyte, Absolute 0.4 10 3/mcL Normal 0.2-1.0 [facility] ([place]) Comment on above: Performed By: #### G FR, CBC, ADIFF, ANEU, MDW, ESR, BMP, CRP #### [address] [address] Monocytes/100 WBC (Bld) 4.6 % Normal 1.7-13.0 [facility] ([place]) Comment on above: Performed By: #### G FR, CBC, ADIFF, ANEU, MDW, ESR, BMP, CRP #### [address] [address] Neutrophils/100 WBC (Bld) 79.1 % Normal 37.0-80.0 [facility] ([place] Comment on above: Performed By: #### G FR, CBC, ADIFF, ANEU, MDW, ESR, BMP, CRP #### [address] [address] .GFRon 02-04-2024 GFR 53 ml/min/1.73sqm Normal [facility] ([place] Comment on above: Result Comment: GFR Population [...] ADIFF, ANEU, MDW, ESR, BMP, CRP #### [address] [address] GFR Non- 44 ml/min/1.73sqm Normal [facility] ([place] Comment on above: Result Comment: GFR Population [...] ADIFF, ANEU, MDW, ESR, BMP, CRP #### [address] [address] .MDWon 02-04-2024 Monocyte Distribution Width 16.72 Normal 0.00-20.00 [facility] ([place] Comment on above: Result Comment: For ED adult patients suspected of sepsis, MDW<=20.0 does not rule out sepsis or risk of sepsis Performed By: #### G FR, CBC, ADIFF, ANEU, MDW, ESR, BMP, CRP #### [address] [address] .NEUABSon 02-04-2024 Neutrophil, Absolute 7.0 10 3/mcL High 2.9-6.2 [facility]ly [facility], [facility] ([place] Comment on above: Performed By: #### G FR, CBC, ADIFF, ANEU, MDW, ESR, BMP, CRP #### [address] [address] BMPon 02-04-2024 BUN/Creatinine Ratio 12 ratio Normal 7-27 [facility] ([place]) Comment on above: Performed By: #### G FR, CBC, ADIFF, ANEU, MDW, ESR, BMP, CRP #### [address] [address] Calcium [Mass/Vol] 9.1 mg/dL Normal 8.4-10.2 [facility] [place] Comment on above: Performed By: #### G FR, CBC, ADKYUNG, ANEU, MDW, ESR, BMP, CRP #### [address] [address] Chloride [Moles/Vol] 103 mmol/L Normal 98-107 [facility] ([place]) Comment on above: Performed By: #### G FR, CBC, ADIFF, ANEU, MDW, ESR, BMP, CRP #### [address] [address] CO2 [Moles/Vol] 32 mmol/L High 22-29 [facility] [place] Comment on above: Performed By: #### G FR, CBC, ADIFF, ANEU, MDW, ESR, BMP, CRP #### [address] [address] Creatinine [Mass/Vol] 1.28 mg/dL High 0.55-1.02 [facility] [place] Comment on above: Performed By: #### G FR, CBC, ADIFF, ANEU, MDW, ESR, BMP, CRP #### [address] [address] Electrolyte Balance 9.0 mEq/L Normal 4.0-15.0 [facility] ([place]) Comment on above: Performed By: #### G FR, CBC, ADIFF, ANEU, MDW, ESR, BMP, CRP #### [address] [address] Glucose [Mass/Vol] 114 mg/dL High 70-105 [facility] [place] Comment on above: Performed By: #### G FR, CBC, ADIFF, ANEU, MDW, ESR, BMP, CRP #### [address] [address] Potassium [Moles/Vol] 3.8 mmol/L Normal 3.5-5.1 [facility] [place] Comment on above: Performed By: #### G FR, CBC, ADIFF, ANEU, MDW, ESR, BMP, CRP #### [address] [address] Sodium [Moles/Vol] 144 mmol/L Normal 136-145 [facility]) Comment on above: Performed By: #### G FR, CBC, ADIFF, ANEU, MDW, ESR, BMP, CRP #### [address] [address] Urea nitrogen [Mass/Vol] 16 mg/dL Normal 7-18 [facility]) Comment on above: Performed By: #### G FR, CBC, ADIFF, ANEU, MDW, ESR, BMP, CRP #### [address] [address] CBCon 02-04-2024 Erythrocyte distribution width (RBC) [Ratio] 15.6 % High 11.5-14.5 [facility]) Comment on above: Performed By: #### G FR, CBC, ADIFF, ANEU, MDW, ESR, BMP, CRP #### [place] [id number] Hematocrit (Bld) [Volume fraction] 31.8 % Low 37.0-47.0 [facility] ([place] Comment on above: Performed By: #### G FR, CBC, ADIFF, ANEU, MDW, ESR, BMP, CRP #### [address] [address] Hgb 11.5 G/dL Low 12.0-16.0 [facility] [place] Comment on above: Performed By: #### G FR, CBC, ADIFF, ANEU, MDW, ESR, BMP, CRP #### [address] [address] MCH (RBC) [Entitic mass] 28.9 pg Normal 27.0-31.2 [facility] [place] Comment on above: Performed By: #### G FR, CBC, ADIFF, ANEU, MDW, ESR, BMP, CRP #### [address] [address] MCHC 36.1 G/dL Normal 33.0-37.0 [facility] ([place] Comment on above: Performed By: #### G FR, CBC, ADIFF, ANEU, MDW, ESR, BMP, CRP #### [address] [address] MCV (RBC) [Entitic vol] 80.1 fL Normal 80.0-94.0 [facility] ([place]) Comment on above: Performed By: #### G FR, CBC, ADIFF, ANEU, MDW, ESR, BMP, CRP #### [address] [address] Platelet 323 10 3/mcL Normal 130-400 [facility] [place] Comment on above: Performed By: #### G FR, CBC, ADIFF, ANEU, MDW, ESR, BMP, CRP #### [address] [address] Platelet mean volume (Bld) [Entitic vol] 7.2 fL Low 7.4-10.4 [facility] ([place] Comment on above: Performed By: #### G FR, CBC, ADIFF, ANEU, MDW, ESR, BMP, CRP #### [address] [address] RBC 3.98 10 6/mcL Low 4.20-5.40 [facility] [place] Comment on above: Performed By: #### G FR, CBC, ADIFF, ANEU, MDW, ESR, BMP, CRP #### [address] [address] WBC 8.8 10 3/mcL Normal 4.6-10.8 [facility] ([place] Comment on above: Performed By: #### G FR, CBC, ITZEL, OTILIA GARCIA, ESR, BMP, CRP #### [place] [id number] [place], [place] [address] CRPon 02-04-2024 C-Reactive Protein 0.8 mg/dL High 0.0-0.3 [facility] [place] Comment on above: Performed By: #### G FR, CBC, ITZEL, MD JOSEW, ESR, BMP, CRP #### [facility] [address] [place], [place] [address] CT FOREARM W/ CONTRAST RIGHT on 02-04-2024 [...] the resident's findings and interpretation. Interpreted by: Romulo Jefferson MD Preliminary Report By: Vivek Olivia Electronically signed By Romulo Jefferson MD Dictated Date: 02/04/2024 7:10:27 AM Prelim Date: 02/04/2024 7:41:59 AM Sign Date: 02/04/2024 7:49:04 AM Ordering Provider: ELIANE Sheridan [facility] ([place]) ESRon 02-04-2024 Erythrocyte Sed Rate 30 mm/hr Normal 0-30 [facility]) Comment on above: Performed By: #### G FR, CBC, ADIFF, ANEU, MDW, ESR, BMP, CRP #### [place] [id number] LABORATORYOrdered By: SYSTEM SYSTEM on 02-04-2024 Basophil, Absolute 0.1 103/mcL Normal 0.0 - 0.2 10^3/mcL AO Workflow SS Basophils/100 WBC (Bld) 0.9 % Normal 0.0 - 2.5 % AO Workflow SS Calcium [Mass/Vol] 9.1 mg/dL Normal 8.4 - 10. 2 mg/dL AO ADM SS Chloride [Moles/Vol] 103 mmol/L Normal 98 - 10 7 mmol/L AO ADM SS CO2 [Moles/Vol] 32 mmol/L High 22 - 29 mmol/L AO ADM SS Creatinine [Mass/Vol] 1.28 mg/dL High 0.55 - 1.02 mg/dL AO ADM SS CRP [Mass/Vol] 0.8 mg/dL High 0.0 - 0.3 mg/dL AO ADM SS Electrolyte Balance 9.0 mEq/L Normal 4.0 - 15 .0 mEq/L AO ADM SS Eosinophil, Absolute 0.2 103/mcL Normal 0.0 - 0 .4 10^3/mcL AO Workflow SS Eosinophils/100 WBC (Bld) [...] Lymphocyte, Absolute 1.2 103/mcL Normal 0.8 - 3 .9 10^3/mcL AO Workflow SS Lymphocytes/100 WBC (Bld) [...] Neutrophil, Absolute 7.0 103/mcL High 2.9 - 6 .2 10^3/mcL AO Workflow SS Neutrophils/100 WBC (Bld) [...] (Bld) [#/Vol] 3.98 106/mcL Low 4.20 - 5.40 10^6/mcL AO Workflow SS Sodium [Moles/Vol] 144 [...] - 30 mm/hr AO Man Heme SS No Panel InformationOrdered By: Gene Lanier on 01-25-2024 Free Triiodothyronine (T3) pg/dL 2.0 pg/mL 2.18-3.98 [facility] Serum or plasma thyroid stim ulating hormone (TSH) measurement (units/volume)Ordered By: Gene Lanier on 01-25-2024 TSH Qn 1.33 uIU/mL 0.358-3.74 [facility] Serum or plasma thyroxine (T 4) measurement (mass/volume)Ordered By: Gene Lanier on 01-25-2024 T4 [Mass/Vol] 9.4 ug/dL 4.8-13.9 [facility] Absolute lymphocyte countOrd ered By: [facility] on 12-06-2023 Lymphocytes Auto (Unsp spec) [#/Vol] 1.55 10*3/uL 0.83-4.51 [facility] Automated lymphocyte count a s percentage of total leukocytesOrdered By: Yaniv Crawford on 12-06-2023 Lymphocytes/100 WBC Auto (Unsp spec) 22.4 % 19-41 [facility] Basophil percentageOrdered B y: Yaniv Crawford on 12-06-2023 Creatinine [Mass/Vol] 1.1 mg/dL 0.55-1.02 [facility] Basophils/100 WBC (Bld) 0.7 % 0-1 [facility] Bilirubin [Mass/Vol] 0.30 mg/dL 0.20-1.00 [facility] Comment on above: For patients on eltr ombopag therapy, use of Dimension [place] TBIL is not recommended. Chloride [Moles/Vol] 109 mmol/L 98-107 [facility] Eosinophils/100 WBC (Bld) 5.1 % 0-5 [facility] Glucose [Mass/Vol] 98 mg/dL 74-106 [facility] Hemoglobin (Bld) [Mass/Vol] 10.8 g/dL 12.0-15.0 [facility] LDH [Catalytic activity/Vol] 216 U/L 84-246 [facility] Monocytes/100 WBC (Bld) 6.5 % 0-10 [facility] Neutrophils (Bld) [#/Vol] 4.5 10*3/uL 2.0-7.7 [facility] Neutrophils/100 WBC (Bld) 64.9 % 47-70 [facility] Potassium [Moles/Vol] 3.4 mmol/L 3.5-5.1 [facility] Protein [Mass/Vol] 7.7 g/dL 6.4-8.2 [facility] Sodium [Moles/Vol] 141 mmol/L 136-145 [facility] WBC (Bld) [#/Vol] 6.9 10*3/uL 4.4-11.0 [facility] Determination of erythrocyte mean corpuscular volume (MCV)Ordered By: Yaniv Crawford on 12-06-2023 MCV (RBC) [Entitic vol] 80.9 fL 81-99 [facility] Erythrocyte distribution wid th ratioOrdered By: Yaniv Crawford on 12-06-2023 Erythrocyte distribution width (RBC) [Ratio] 15.4 % 11.6-14.6 [facility] Erythrocyte distribution wid th standard deviationOrdered By: [facility] on 12-06-2023 Erythrocyte distribution width (RBC) [Entitic vol] 44.4 fL 35.1-43.9 [facility] Hematocrit Auto (Bld) [Volum e fraction]Ordered By: Yaniv Crawford on 12-06-2023 Hematocrit (Bld) [Volume fraction] 33.0 % 37-47 [facility] Immature granulocytes/100 WB C Auto (Bld)Ordered By: Yaniv Crawford on 12-06-2023 Immature granulocytes/100 WBC (Bld) 0.400 % 0.0-0.9 [facility] Comment on above: IG% - Immature Granu locytes (promyelocytes, myelocytes and metamyelocytes) > 1% indicates that a LEFT SHIFT is Present. Laboratory - Chemistry and C hemistry - challengeOrdered By: Yaniv Crawford on 12-06-2023 GFR/1.73 sq M.predicted among non-blacks MDRD (S/P/Bld) [Vol rate/Area] 57.0000 mL/min/{1.73_m2} >60 [facility] Albumin/Globulin [Mass ratio] 1.0 {ratio} 0.9-2.4 [facility] ALP [Catalytic activity/Vol] 135 U/L 45-117 [facility] ALT [Catalytic activity/Vol] 30 U/L 13-56 [facility] CO2 [Moles/Vol] 28.0 mmol/L 21.0-32.0 [facility] Ferritin [Mass/Vol] 101 ng/mL 8-252 [facility] Globulin (S) [Mass/Vol] 3.8 g/dL 2.2-4.2 [facility] Urea nitrogen/Creatinine [Mass ratio] 13.2 mg/mg 10-20 [facility] Laboratory - Hematology and Cell countsOrdered By: Yaniv Crawford on 12-06-2023 MCH (RBC) [Entitic mass] 26.5 pg 27.0-32.0 [facility] MCHC (RBC) [Mass/Vol] 32.7 g/dL 32-36 [facility] Nucleated RBC/100 WBC (Bld) [Ratio] 0 % 0-5 [facility] Platelet mean volume (Bld) [Entitic vol] 9.8 fL 6.2-12.0 [facility] Platelets (Bld) [#/Vol] 339 10*3/uL 150-450 [facility] No Panel InformationOrdered By: Yaniv Crawford on 12-06-2023 Estimated GFR (MDRD) Amer 64 mL/min >60 [facility] Comment on above: GFR Calc Estimated GFR (MDRD) Non-Af Amer 53 mL/min >60 [facility] Comment on above: Non- GFR Calc RBC Auto (Bld) [#/Vol]Ordere d By: Yaniv Crawford on 12-06-2023 RBC (Bld) [#/Vol] 4.08 10*6/uL 4.2-5.4 [facility] Serum or plasma calcium susanna urement (mass/volume)Ordered By: Yaniv Crawford on 12-06-2023 Calcium [Mass/Vol] 9.3 mg/dL 8.5-10.1 [facility] Serum or plasma creatinine m easurement (mass/volume)Ordered By: Yaniv Crawford on 12-06-2023 Creatinine [Mass/Vol] 1.14 mg/dL 0.55-1.02 [facility] Comment on above: The validity of the calculated GFR & GFRAA in patients over 70 years has not been determined. Clinical correlation is essential. Serum or plasma urea nitroge n measurement (mass/volume)Ordered By: [facility] on 12-06-2023 Urea nitrogen [Mass/Vol] 15 mg/dL 7-18 [facility] Thin prep Papanicolaou smear with manual screeningOrdered By: [facility] on 12-06-2023 Thin prep Papanicolaou smear with manual screening 3.9 g/dL 3.2-5.0 [facility] Thin prep Papanicolaou smear with manual screening 19 U/L 15-37 [facility] Thin prep Papanicolaou smear with manual screening 4 5-15 [facility] Cervical or vagninal specime n microscopic examination by cytology stain (reported asOrdered By: Tracey Herman on 07-18-2023 Cytology report Cyto stain Doc (Cvx/Vag) Comment . [facility] Comment on above: The Pap smear is a s creening test designed to aid in thedetection of premalignant and malignant conditions of theuterine cervix. It is not a diagnostic procedure andshould not be used as the sole means of detecting cervicalcancer. Both false-positive and false-negative reports dooccur. Detection in cervical specim en of any of human papilloma virus (HPV) 16, 18, 31, 33,Ordered By: Tracey Herman on 07-18-2023 HPV 16+18+31+33+35+39+45+51 +52+56+58+59+66+68 DNA Probe+sig amp Ql (Cvx) Negative Negative [facility] Comment on above: This nucleic acid am plification test detects fourteen high-risk HPV types (16,18,31,33,35,39,45,51,52,56,58,59,66,68)without differentiation. Laboratory - CytologyOrdered By: Tracey Herman on 07-18-2023 Natural Resource Economist Cyto stain Nom (Cvx/Vag) [ID] Comment . [facility] Comment on above: Ketty cruz, Pig Machine Operator Helper (ASCP) Laboratory - Miscellaneous t estsOrdered By: Tracey Herman on 07-18-2023 Service comment (Unsp spec) [Interp] Comment . [facility] Comment on above: This liquid based Th inPrep(R) pap test was screened withthe use of an image guided system. Service comment (Unsp spec) [Interp] . . [facility] Liquid-based cerv Pap + CT/G C by GIANCARLO w reflex to high-risk HPV for ASCUSOrdered By: Tracey Herman on 07-18-2023 Cytology report Cyto stain.thin prep Doc (Cvx/Vag) Comment . [facility] Comment on above: Criteria not met, HP V Genotype not performed.Performed at: - [facility] [id number] Director: Em Tavarez MD, Phone: [phone] at: = - [facility] [id number] Director: Em Tavarez MD, Phone: [phone] No Panel InformationOrdered By: Tracey Herman on 07-18-2023 Pathology report final diagnosis Narrative Comment . [facility] Comment on above: NEGATIVE FOR INTRAEP ITHELIAL LESION OR MALIGNANCY. Absolute lymphocyte countOrd ered By: Rodo Sanford on 06-03-2023 Lymphocytes Auto (Unsp spec) [#/Vol] 1.56 10*3/uL 0.83-4.51 [facility] Basophil percentageOrdered B y: Rodo Sanford on 06-03-2023 Basophils/100 WBC (Bld) 0.5 % 0-1 [facility] Eosinophils/100 WBC (Bld) 3.0 % 0-5 [facility] Neutrophils (Bld) [#/Vol] 5.8 10*3/uL 2.0-7.7 [facility] Neutrophils/100 WBC (Bld) 71.9 % 47-70 [facility] WBC (Bld) [#/Vol] 8.0 10*3/uL 4.4-11.0 [facility] Blood erythrocytes count (nu mber/volume)Ordered By: Rodo Sanford on 06-03-2023 RBC (Bld) [#/Vol] 3.80 10*6/uL 4.2-5.4 [facility] Blood hemoglobin measurement (mass/volume)Ordered By: Rodo Sanford on 06-03-2023 Hemoglobin (Bld) [Mass/Vol] 10.9 g/dL 12.0-15.0 [facility] Blood lymphocytes/100 leukoc ytesOrdered By: Rodo Sanford on 06-03-2023 Lymphocytes/100 WBC (Bld) 19.5 % 19-41 [facility] Blood monocytes/100 leukocyt esOrdered By: Rodo Sanford on 06-03-2023 Monocytes/100 WBC (Bld) 4.3 % 0-10 [facility] Blood platelet mean volumeOr dered By: Rodo Sanford on 06-03-2023 Platelet mean volume (Bld) [Entitic vol] 8.7 fL 6.2-12.0 [facility] Determination of erythrocyte mean corpuscular volume (MCV)Ordered By: Rodo Sanford on 06-03-2023 MCV (RBC) [Entitic vol] 82.9 fL 81-99 [facility] Hematocrit Auto (Bld) [Volum e fraction]Ordered By: Rodo Sanford on 06-03-2023 Hematocrit (Bld) [Volume fraction] 31.5 % 37-47 [facility] INR in Blood by Coagulation assayOrdered By: Rodo Sanford on 06-03-2023 INR Coag (Bld) [Relative time] 1.1 {INR} [facility] Laboratory - CoagulationOrde red By: Rodo Sanford on 06-03-2023 aPTT Coag (Bld) [Time] 38.8 s 24.1-36.2 [facility] PT Coag (PPP) [Time] 13.8 s 11.7-14.9 [facility] Laboratory - Hematology and Cell countsOrdered By: Rodo Sanford on 06-03-2023 Erythrocyte distribution width (RBC) [Entitic vol] 45.0 fL 35.1-43.9 [facility] Erythrocyte distribution width (RBC) [Ratio] 15.0 % 11.6-14.6 [facility] Immature granulocytes/100 WBC (Bld) 0.800 % 0.0-0.9 [facility] Comment on above: IG% - Immature Granu locytes (promyelocytes, myelocytes and metamyelocytes) > 1% indicates that a LEFT SHIFT is Present. MCH (RBC) [Entitic mass] 28.7 pg 27.0-32.0 [facility] Nucleated RBC/100 WBC (Bld) [Ratio] 0 % 0-5 [facility] MCHC Auto (RBC) [Mass/Vol]Or dered By: Rodo Sanford on 06-03-2023 MCHC (RBC) [Mass/Vol] 34.6 g/dL 32-36 [facility] Platelets bldOrdered By: Celestino Sanford on 06-03-2023 Platelets (Bld) [#/Vol] 281 10*3/uL 150-450 [facility] Absolute lymphocyte countOrd ered By: Yaniv Crawford on 05-16-2023 Lymphocytes Auto (Unsp spec) [#/Vol] 1.84 10*3/uL 0.83-4.51 [facility] Addendum DocumentOrdered By: Yaniv Crawford on 05-16-2023 Serum Immunofixation Comments Comment . [facility] Comment on above: Protein electrophore sis scan will follow via computer,mail, or presentation team member delivery.Performed at: [address] [id number] Director: Chance Waters PhD, Phone: [phone] Albumin Elph [Mass/Vol]Order ed By: Yaniv Crawford on 05-16-2023 Albumin [Mass/Vol] 4.2 g/dL 2.9-4.4 [facility] Alpha 1 globulin Elph [Mass/ Vol]Ordered By: Yaniv Crawford on 05-16-2023 Esypb-7-Gboqbwoah (STEFANIA) 0.2 g/dL 0.0-0.4 [facility] Lwwdy-1-Erbbllacv (STEFANIA) 0.6 g/dL 0.4-1.0 [facility] Basophil percentageOrdered B y: Yaniv Crawford on 05-16-2023 Basophils/100 WBC (Bld) 0.5 % 0-1 [facility] Bilirubin [Mass/Vol] 0.30 mg/dL 0.20-1.00 [facility] Comment on above: For patients on eltr ombopag therapy, use of Dimension [place] TBIL is not recommended. Chloride [Moles/Vol] 102 mmol/L 98-107 [facility] Eosinophils/100 WBC (Bld) 2.1 % 0-5 [facility] Glucose [Mass/Vol] 90 mg/dL 74-106 [facility] LDH [Catalytic activity/Vol] 199 U/L 84-246 [facility] Neutrophils (Bld) [#/Vol] 6.6 10*3/uL 2.0-7.7 [facility] Neutrophils/100 WBC (Bld) 71.6 % 47-70 [facility] Potassium [Moles/Vol] 3.2 mmol/L 3.5-5.1 [facility] Protein [Mass/Vol] 7.6 g/dL 6.4-8.2 [facility] Sodium [Moles/Vol] 138 mmol/L 136-145 [facility] WBC (Bld) [#/Vol] 9.3 10*3/uL 4.4-11.0 [facility] Beta globulin Elph [Mass/Vol ]Ordered By: Yaniv Crawford on 05-16-2023 Beta-Globulins (STEFANIA) 1.0 g/dL 0.7-1.3 [facility] Blood erythrocytes count (nu mber/volume)Ordered By: Yaniv Crawford on 05-16-2023 RBC (Bld) [#/Vol] 3.89 10*6/uL 4.2-5.4 [facility] Blood hemoglobin measurement (mass/volume)Ordered By: Yaniv Crawford on 05-16-2023 Hemoglobin (Bld) [Mass/Vol] 10.6 g/dL 12.0-15.0 [facility] Blood lymphocytes/100 leukoc ytesOrdered By: Yaniv Crawford on 05-16-2023 Lymphocytes/100 WBC (Bld) 19.9 % 19-41 [facility] Blood monocytes/100 leukocyt esOrdered By: Yaniv Crawford on 05-16-2023 Monocytes/100 WBC (Bld) 4.5 % 0-10 [facility] Blood platelet mean volumeOr dered By: Yaniv Crawford on 05-16-2023 Platelet mean volume (Bld) [Entitic vol] 8.9 fL 6.2-12.0 [facility] Determination of erythrocyte mean corpuscular volume (MCV)Ordered By: Yaniv Crawford on 05-16-2023 MCV (RBC) [Entitic vol] 83.8 fL 81-99 [facility] Erythrocyte sedimentation ra teOrdered By: Yaniv Crawford on 05-16-2023 ESR (Bld) [Velocity] 24 mm/h 0-30 [facility] Folate [Mass/Vol]Ordered By: Yaniv Crawford on 05-16-2023 Folate 10.70 ng/mL 3.1-55.4 [facility] Gamma globulin Elph [Mass/Vo l]Ordered By: Yaniv Crawford on 05-16-2023 Gamma Globulins (STEFANIA) 1.1 g/dL 0.4-1.8 [facility] [employer] mix RAST testO rdered By: Yaniv Crawford on 05-16-2023 Albumin/Globulin (STEFANIA) 1.5 0.7-1.7 [facility] Hematocrit Auto (Bld) [Volum e fraction]Ordered By: Yaniv Crawford on 05-16-2023 Hematocrit (Bld) [Volume fraction] 32.6 % 37-47 [facility] INR in Blood by Coagulation assayOrdered By: Yaniv Crawford on 05-16-2023 INR Coag (Bld) [Relative time] 1.0 {INR} [facility] IgA [Mass/Vol]Ordered By: Shey Crawford on 05-16-2023 Immunoglobulin A 181 mg/dL 87-352 [facility] IgG [Mass/Vol]Ordered By: Shey Crawford on 05-16-2023 Immunoglobulin G 769 mg/dL [id number] [facility] IgM [Mass/Vol]Ordered By: Shey Crawford on 05-16-2023 Immunoglobulin M 692 mg/dL High 26-217 [facility] Comment on above: Results confirmed on dilution. Interpretation IEP [Interp]O rdered By: Yaniv Crawford on 05-16-2023 Immunofixation Screen Comment . [facility] Comment on above: No monoclonality det ected. Interpretation of serum or p lasma protein pattern by immunofixation (narrative resultOrdered By: Yaniv Crawford on 05-16-2023 Protein Fractions Immunofixation Mike [Interp] See comment [facility] Comment on above: NOT OBSERVED Iron measurement (mass/mass) Ordered By: Yaniv Crawford on 05-16-2023 Iron (Unsp spec) [Mass/Mass] 59 ug/dL 50-170 [facility] Laboratory - Chemistry and C hemistry - challengeOrdered By: Yaniv Crawford on 05-16-2023 ALP [Catalytic activity/Vol] 157 U/L 45-117 [facility] ALT [Catalytic activity/Vol] 42 U/L 13-56 [facility] CO2 [Moles/Vol] 30.0 mmol/L 21.0-32.0 [facility] Cobalamin (Vitamin B12) [Mass/Vol] 472 pg/mL 211-911 [facility] Urea nitrogen/Creatinine [Mass ratio] 12.5 mg/mg 10-20 [facility] Laboratory - CoagulationOrde red By: Yaniv Crawford on 05-16-2023 aPTT Coag (Bld) [Time] 42.5 s High 24.1-36.2 [facility] PT Coag (PPP) [Time] 13.2 s 11.7-14.9 [facility] Laboratory - Hematology and Cell countsOrdered By: Yaniv Crawford on 05-16-2023 Erythrocyte distribution width (RBC) [Entitic vol] 45.3 fL 35.1-43.9 [facility] Erythrocyte distribution width (RBC) [Ratio] 15.1 % 11.6-14.6 [facility] Immature granulocytes/100 WBC (Bld) 1.400 % 0.0-0.9 [facility] Comment on above: IG% - Immature Granu locytes (promyelocytes, myelocytes and metamyelocytes) > 1% indicates that a LEFT SHIFT is Present. MCH (RBC) [Entitic mass] 27.2 pg 27.0-32.0 [facility] Nucleated RBC/100 WBC (Bld) [Ratio] 0 % 0-5 [facility] MCHC Auto (RBC) [Mass/Vol]Or dered By: Yaniv Crawford on 05-16-2023 MCHC (RBC) [Mass/Vol] 32.5 g/dL 32-36 [facility] No Panel InformationOrdered By: Yaniv Crawford on 05-16-2023 Addendum Document Comment . [facility] Comment on above: Protein electrophore sis scan will follow via computer,mail, or presentation team member delivery.Performed at: [place] [id number] Director: Chance Waters PhD, Phone: [phone] Estimated GFR (MDRD) Amer 87 mL/min >60 [facility] Comment on above: GFR Calc Estimated GFR (MDRD) Non-Af Amer 72 mL/min >60 [facility] Comment on above: Non- GFR Calc Total Iron Binding Capacity 277 ug/dL 250-450 [facility] Platelets bldOrdered By: Flaco Crawford on 05-16-2023 Platelets (Bld) [#/Vol] 295 10*3/uL 150-450 [facility] Protein Fractions Immunofixa tion Mike [Interp]Ordered By: Yaniv Crawford on 05-16-2023 M-Elian (STEFANIA) See comment [facility] Comment on above: NOT OBSERVED Serum [id number] measu rement by electrophoresisOrdered By: Yaniv Crawford on 05-16-2023 Alpha 1 globulin Elph [Mass/Vol] 0.2 g/dL 0.0-0.4 [facility] Alpha 1 globulin Elph [Mass/Vol] 0.6 g/dL 0.4-1.0 [facility] Serum globulin measurement ( mass/volume)Ordered By: Yaniv Crawford on 05-16-2023 Globulin (S) [Mass/Vol] 3.0 g/dL 2.2-3.9 [facility] Serum or plasma IgA measurem ent (mass/volume)Ordered By: Yaniv Crawford on 05-16-2023 IgA [Mass/Vol] 181 mg/dL 87-352 [facility] Serum or plasma IgG measurem ent (mass/volume)Ordered By: Yaniv Crawford on 05-16-2023 IgG [Mass/Vol] 769 mg/dL [phone] [facility] Serum or plasma IgM measurem ent (mass/volume)Ordered By: Yaniv Crawford on 05-16-2023 IgM [Mass/Vol] 692 mg/dL High 26-217 [facility] Comment on above: Results confirmed on dilution. Serum or plasma albumin susanna urement (mass/volume)Ordered By: Yaniv Crawford on 05-16-2023 Albumin [Mass/Vol] 3.7 g/dL 3.2-5.0 [facility] Serum or plasma albumin/glob ulin mass ratioOrdered By: [facility] on 05-16-2023 Albumin/Globulin [Mass ratio] 0.9 {ratio} 0.9-2.4 [facility] Serum or plasma beta globuli n measurement by electrophoresis (mass/volume)Ordered By: [facility] on 05-16-2023 Beta globulin Elph [Mass/Vol] 1.0 g/dL 0.7-1.3 [facility] Serum or plasma calcium susanna urement (mass/volume)Ordered By: Yaniv Crawford on 05-16-2023 Calcium [Mass/Vol] 9.0 mg/dL 8.5-10.1 [facility] Serum or plasma creatinine m easurement (mass/volume)Ordered By: Yaniv Crawford on 05-16-2023 Creatinine [Mass/Vol] 0.88 mg/dL 0.55-1.02 [facility] Comment on above: The validity of the calculated GFR & GFRAA in patients over 70 years has not been determined. Clinical correlation is essential. Serum or plasma ferritin leonardo surement (mass/volume)Ordered By: Yaniv Crawford on 05-16-2023 Ferritin [Mass/Vol] 65 ng/mL 8-252 [facility] Serum or plasma folate measu rement (mass/volume)Ordered By: Yaniv Crawford on 05-16-2023 Folate [Mass/Vol] 10.70 ng/mL 3.1-55.4 [facility] Serum or plasma gamma globul in measurement by electrophoresis (mass/volume)Ordered By: Yaniv Crawford on 05-16-2023 Gamma globulin Elph [Mass/Vol] 1.1 g/dL 0.4-1.8 [facility] Serum or plasma immunoelectr ophoresis interpretation (nominal result)Ordered By: [facility] on 05-16-2023 Interpretation IEP [Interp] Comment . [facility] Comment on above: No monoclonality det ected. Serum or plasma iron saturat ion measurement (mass fraction)Ordered By: [facility] on 05-16-2023 Iron saturation [Mass fraction] 21.3 % 15.0-55.0 [facility] Serum or plasma urea nitroge n measurement (mass/volume)Ordered By: [facility] on 05-16-2023 Urea nitrogen [Mass/Vol] 11 mg/dL 7-18 [facility] Thin prep Papanicolaou smear with manual screeningOrdered By: [facility] on 05-16-2023 Thin prep Papanicolaou smear with manual screening 29 U/L 15-37 [facility] Thin prep Papanicolaou smear with manual screening 6 5-15 [facility] Thin prep Papanicolaou smear with manual screening 1.5 0.7-1.7 [facility] Total protein bloodOrdered B y: Yaniv Crawford on 05-16-2023 Protein [Mass/Vol] 7.2 g/dL 6.0-8.5 [facility] Basophil percentageOrdered B y: Mati Augustine on 04-18-2023 Creatinine [Mass/Vol] 1.0 mg/dL 0.55-1.02 [facility] No Panel InformationOrdered By: Matizev Augustine on 04-18-2023 Bedside Estimated GFR (eGFR) > 60.0000 mL/min >60 [facility] Laboratory - Chemistry and C hemistry - challengeOrdered By: Dr. Augustine on 03-22-2023 Amylase [Catalytic activity/Vol] 76 U/L 5-55 [facility] Absolute lymphocyte countOrd ered By: Dr. Augustine on 02-10-2023 Lymphocytes Auto (Unsp spec) [#/Vol] 1.76 10*3/uL 0.83-4.51 [facility] Basophil percentageOrdered B y: Dr. Augustine on 02-10-2023 Basophils/100 WBC (Bld) 0.8 % 0-1 [facility] Bilirubin [Mass/Vol] 0.30 mg/dL 0.20-1.00 [facility] Comment on above: For patients on eltr ombopag therapy, use of Dimension [place] TBIL is not recommended. Chloride [Moles/Vol] 105 mmol/L 98-107 [facility] Eosinophils/100 WBC (Bld) 3.1 % 0-5 [facility] Glucose [Mass/Vol] 103 mg/dL 74-106 [facility] Comment on above: Fasting Glucose resu lt from 100 to 125 mg/dL suggests IMPAIRED HOMEOSTASIS per A.D.A. criteria. Neutrophils (Bld) [#/Vol] 4.7 10*3/uL 2.0-7.7 [facility] Neutrophils/100 WBC (Bld) 65.6 % 47-70 [facility] Potassium [Moles/Vol] 4.0 mmol/L 3.5-5.1 [facility] Protein [Mass/Vol] 8.1 g/dL 6.4-8.2 [facility] Sodium [Moles/Vol] 140 mmol/L 136-145 [facility] WBC (Bld) [#/Vol] 7.2 10*3/uL 4.4-11.0 [facility] Blood erythrocytes count (nu mber/volume)Ordered By: Dr. Augustine on 02-10-2023 RBC (Bld) [#/Vol] 4.02 10*6/uL 4.2-5.4 [facility] Blood hemoglobin measurement (mass/volume)Ordered By: Dr. Augustine on 02-10-2023 Hemoglobin (Bld) [Mass/Vol] 11.0 g/dL 12.0-15.0 [facility] Blood lymphocytes/100 leukoc ytesOrdered By: Dr. Augustine on 02-10-2023 Lymphocytes/100 WBC (Bld) 24.4 % 19-41 [facility] Blood monocytes/100 leukocyt esOrdered By: [address] Augustine on 02-10-2023 Monocytes/100 WBC (Bld) 5.4 % 0-10 [facility] Blood platelet mean volumeOr dered By: Dr. Augustine on 02-10-2023 Platelet mean volume (Bld) [Entitic vol] 9.9 fL 6.2-12.0 [facility] Determination of erythrocyte mean corpuscular volume (MCV)Ordered By: Dr. Augustine on 02-10-2023 MCV (RBC) [Entitic vol] 84.3 fL 81-99 [facility] Hematocrit Auto (Bld) [Volum e fraction]Ordered By: Dr. Augustine on 02-10-2023 Hematocrit (Bld) [Volume fraction] 33.9 % 37-47 [facility] Laboratory - Chemistry and C hemistry - challengeOrdered By: Dr. Augustine on 02-10-2023 ALP [Catalytic activity/Vol] 170 U/L 45-117 [facility] ALT [Catalytic activity/Vol] 52 U/L 13-56 [facility] CO2 [Moles/Vol] 29.0 mmol/L 21.0-32.0 [facility] Globulin (S) [Mass/Vol] 3.9 g/dL 2.2-4.2 [facility] Urea nitrogen/Creatinine [Mass ratio] 14.2 mg/mg 10-20 [facility] Laboratory - Hematology and Cell countsOrdered By: Dr. Augustine on 02-10-2023 Erythrocyte distribution width (RBC) [Entitic vol] 44.6 fL 35.1-43.9 [facility] Erythrocyte distribution width (RBC) [Ratio] 14.6 % 11.6-14.6 [facility] Immature granulocytes/100 WBC (Bld) 0.700 % 0.0-0.9 [facility] Comment on above: IG% - Immature Granu locytes (promyelocytes, myelocytes and metamyelocytes) > 1% indicates that a LEFT SHIFT is Present. MCH (RBC) [Entitic mass] 27.4 pg 27.0-32.0 [facility] Nucleated RBC/100 WBC (Bld) [Ratio] 0 % [facility]5 [facility] [Mass/Vol]Or dered By: Dr. Augustine on 02-10-2023 MCHC (RBC) [Mass/Vol] 32.4 g/dL 32-36 [facility] No Panel InformationOrdered By: Dr. Augustine on 02-10-2023 Estimated GFR (MDRD) Amer 70 mL/min >60 [facility] Comment on above: GFR Calc Estimated GFR (MDRD) Non-Af Amer 58 mL/min >60 [facility] Comment on above: Non- GFR Calc Platelets bldOrdered By: Dr. Augustine on 02-10-2023 Platelets (Bld) [#/Vol] 341 10*3/uL 150-450 [facility] Serum or plasma albumin susanna urement (mass/volume)Ordered By: Dr. Augustine on 02-10-2023 Albumin [Mass/Vol] 4.2 g/dL 3.2-5.0 [facility] Serum or plasma albumin/glob ulin mass ratioOrdered By: Dr. Augustine on 02-10-2023 Albumin/Globulin [Mass ratio] 1.1 {ratio} 0.9-2.4 [facility] Serum or plasma calcium susanna urement (mass/volume)Ordered By: Dr. Augustine on 02-10-2023 Calcium [Mass/Vol] 9.9 mg/dL 8.5-10.1 [facility] Serum or plasma creatinine m easurement (mass/volume)Ordered By: Dr. Augustine on 02-10-2023 Creatinine [Mass/Vol] 1.06 mg/dL 0.55-1.02 [facility] Comment on above: The validity of the calculated GFR & GFRAA in patients over 70 years has not been determined. Clinical correlation is essential. Serum or plasma urea nitroge n measurement (mass/volume)Ordered By: Dr. Augustine on 02-10-2023 Urea nitrogen [Mass/Vol] 15 mg/dL 7-18 [facility] Thin prep Papanicolaou smear with manual screeningOrdered By: Dr. Augustine on 02-10-2023 Thin prep Papanicolaou smear with manual screening 35 U/L 15-37 [facility] Thin prep Papanicolaou smear with manual screening 6 5-15 [facility] Laboratory - Chemistry and C hemistry - challengeOrdered By: Dr. Lanier on 01-21-2023 T4 [Mass/Vol] 10.2 ug/dL 4.8-13.9 [facility] No Panel InformationOrdered By: Dr. Lanier on 01-21-2023 Free Triiodothyronine (T3) pg/dL 2.4 pg/mL 2.18-3.98 [facility] Thyroid Stimulating Hormone (TSH) 2.36 uIU/mL 0.358-3.74 [facility] Absolute lymphocyte counton 08-27-2022 Lymphocytes Auto (Unsp spec) [#/Vol] 2.11 10*3/uL 0.83-4.51 [facility] Work Phone: Basophil percentageon 2021 Basophils/100 WBC (Bld) 0.6 % 0-1 [facility] Work Phone: Bilirubin [Mass/Vol] 0.30 mg/dL 0.20-1.00 [facility] Work Phone: Comment on above: For patients on eltr ombopag therapy, use of Dimension [place] TBIL is not recommended. Chloride [Moles/Vol] 105 mmol/L 98-107 [facility] Work Phone: Cholesterol [Mass/Vol] 187 mg/dL <200 [facility] Work Phone: Comment on above: <200 mg/dL Desirable 200-240 mg/dL Borderline >240 mg/dL High Risk Eosinophils/100 WBC (Bld) 3.6 % 0-5 [facility] Work Phone: Glucose [Mass/Vol] 121 mg/dL 74-106 [facility] Work Phone: Comment on above: Fasting Glucose resu lt from 100 to 125 mg/dL suggests IMPAIRED HOMEOSTASIS per A.D.A. criteria. Neutrophils (Bld) [#/Vol] 6.0 10*3/uL 2.0-7.7 [facility] Work Phone: Neutrophils/100 WBC (Bld) 67.1 % 47-70 [facility] Work Phone: Potassium [Moles/Vol] 3.4 mmol/L 3.5-5.1 [facility] Work Phone: Protein [Mass/Vol] 7.5 g/dL 6.4-8.2 [facility] Work Phone: Sodium [Moles/Vol] 140 mmol/L 136-145 [facility] Work Phone: Triglyceride [Mass/Vol] 374 mg/dL <199 [facility] Work Phone: Comment on above: The drugs N-Acetylcy steine and Metamizole may falsely depress this assay.Serum Triglycerides Reference Interval Normal <150 mg/dL Borderline high 150 - 199 mg/dL High 200 - 499 mg/dL Very High > or = 500 mg/dL WBC (Bld) [#/Vol] 8.9 10*3/uL 4.4-11.0 [facility] Work Phone: [phone] Blood erythrocytes count (nu mber/volume)on 08-27-2022 RBC (Bld) [#/Vol] 4.24 10*6/uL 4.2-5.4 [facility] Work Phone: [phone] Blood hemoglobin measurement (mass/volume)on 08-27-2022 Hemoglobin (Bld) [Mass/Vol] 11.6 g/dL 12.0-15.0 [facility] Work Phone: Blood lymphocytes/100 leukoc yteson 08-27-2022 Lymphocytes/100 WBC (Bld) 23.7 % 19-41 [facility] Work Phone: Blood monocytes/100 leukocyt eson 08-27-2022 Monocytes/100 WBC (Bld) 4.3 % 0-10 [facility] Work Phone: Blood platelet mean volumeon 08-27-2022 Platelet mean volume (Bld) [Entitic vol] 9.2 fL 6.2-12.0 [facility] Work Phone: Determination of erythrocyte mean corpuscular volume (MCV)on 08-27-2022 MCV (RBC) [Entitic vol] 82.1 fL 81-99 [facility] Work Phone: Hematocrit Auto (Bld) [Volum e fraction]on 08-27-2022 Hematocrit (Bld) [Volume fraction] 34.8 % 37-47 [facility] Work Phone: Laboratory - Chemistry and C hemistry - challengeon 08-27-2022 ALP [Catalytic activity/Vol] 160 U/L 45-117 [facility] Work Phone: ALT [Catalytic activity/Vol] 52 U/L 13-56 [facility] Work Phone: CO2 [Moles/Vol] 27.0 mmol/L 21.0-32.0 [facility] Work Phone: Globulin (S) [Mass/Vol] 3.8 g/dL 2.2-4.2 [facility] Work Phone: Urea nitrogen/Creatinine [Mass ratio] 18.3 mg/mg 10-20 [facility] Work Phone: Laboratory - Hematology and Cell countson 08-27-2022 Erythrocyte distribution width (RBC) [Entitic vol] 41.5 fL 35.1-43.9 [facility] Work Phone: Erythrocyte distribution width (RBC) [Ratio] 14.1 % 11.6-14.6 [facility] Work Phone: Immature granulocytes/100 WBC (Bld) 0.700 % 0.0-0.9 [facility] Work Phone: Comment on above: IG% - Immature Granu locytes (promyelocytes, myelocytes and metamyelocytes) > 1% indicates that a LEFT SHIFT is Present. MCH (RBC) [Entitic mass] 27.4 pg 27.0-32.0 [facility] Work Phone: Nucleated RBC/100 WBC (Bld) [Ratio] 0 % 0-5 [facility] Work Phone: MCHC Auto (RBC) [Mass/Vol]on 08-27-2022 MCHC (RBC) [Mass/Vol] 33.3 g/dL 32-36 [facility] Work Phone: No Panel Informationon 08-27 Estimated GFR (MDRD) Amer 76 mL/min >60 [facility] Work Phone: Comment on above: GFR Calc Estimated GFR (MDRD) Non-Af Amer 63 mL/min >60 [facility] Work Phone: Comment on above: Non- GFR Calc Platelets bldon 08-27-2022 Platelets (Bld) [#/Vol] 339 10*3/uL 150-450 [facility] Work Phone: Serum or plasma albumin susanna urement (mass/volume)on 08-27-2022 Albumin [Mass/Vol] 3.7 g/dL 3.2-5.0 [facility] Work Phone: Serum or plasma albumin/glob ulin mass ratioon 08-27-2022 Albumin/Globulin [Mass ratio] 1.0 {ratio} 0.9-2.4 [facility] Work Phone: Serum or plasma calcium susanna urement (mass/volume)on 08-27-2022 Calcium [Mass/Vol] 9.0 mg/dL 8.5-10.1 [facility] Work Phone: Serum or plasma cholesterol in HDL measurement (mass/volume)on 08-27-2022 Cholesterol in HDL [Mass/Vol] 43 mg/dL >40 [facility] Work Phone: Comment on above: The drugs N-Acetylcy steine and Metamizole may falsely depress this assay. Reference Range HDL <40 mg/dL Low HDL Cholesterol HDL >or= 60 mg/dL High HDL Cholesterol Serum or plasma cholesterol in VLDL measurement (mass/volume)on 08-27-2022 Cholesterol in VLDL [Mass/Vol] 75 mg/dL 5-40 [facility] Work Phone: Serum or plasma creatinine m easurement (mass/volume)on 08-27-2022 Creatinine [Mass/Vol] 0.99 mg/dL 0.55-1.02 [facility] Work Phone: Comment on above: The validity of the calculated GFR & GFRAA in patients over 70 years has not been determined. Clinical correlation is essential. Serum or plasma low density lipoprotein (LDL) cholesterol measurement (mass/volume)on 08-27-2022 Cholesterol in LDL [Mass/Vol] 69 mg/dL 0-130 [facility] Work Phone: Serum or plasma urea nitroge n measurement (mass/volume)on 08-27-2022 Urea nitrogen [Mass/Vol] 18 mg/dL 7-18 [facility] Work Phone: Thin prep Papanicolaou smear with manual screeningon 08-27-2022 Thin prep Papanicolaou smear with manual screening 37 U/L 15-37 [facility] Work Phone: Thin prep Papanicolaou smear with manual screening 8 5-15 [facility] Work Phone: Cervical or vagninal specime n microscopic examination by cytology stain (reported ason 08-11-2022 Cytology report Cyto stain Doc (Cvx/Vag) Comment . [facility] Work Phone: Comment on above: The Pap smear is a s creening test designed to aid in thedetection of premalignant and malignant conditions of theuterine cervix. It is not a diagnostic procedure andshould not be used as the sole means of detecting cervicalcancer. Both false-positive and false-negative reports dooccur. Laboratory - Cytologyon Natural Resource Economist Cyto stain Nom (Cvx/Vag) [ID] Comment . [facility] Work Phone: Comment on above: Jelena Pringle Cytot echnologist (ASCP) Laboratory - Miscellaneous t estson 08-11-2022 Service comment (Unsp spec) [Interp] TNP [facility] Work Phone: Comment on above: Test not performedTh e Thin Prep(R) Flavor Tank Tender was unable to read this specimen.Therefore a manual review was performed. Service comment (Unsp spec) [Interp] . . [facility] Work Phone: No Panel Informationon 08-11 Human Papillomavirus Screen Comment . [facility] Work Phone: Comment on above: The HPV DNA reflex c rosalie were not met with this specimenresult therefore, no HPV testing was performed.Performed at: [address] [id number] Director: Em Tavarez MD, Phone: [phone] Pathology report final diagnosis Narrative Comment . [facility] Work Phone: Comment on above: NEGATIVE FOR INTRAEP ITHELIAL LESION OR MALIGNANCY. No Panel Informationon 03-10 Follicle Stimulating Hormone 6.6 mIU/mL [facility] Work Phone: Comment on above: NORMAL REFERENCE RAN GES FEMALE FOLLICULAR 2.3 - 12.6 mIU/mL MID-CYCLE PEAK 5.2 - 17.5 mIU/mL LUTEAL 1.7 - 12.9 mIU/mL POST-MENOPAUSAL ON MHT 5.9 - 72.8 mIU/mL NOT ON MHT 12.7 - 132.2 mlU/mL MALE 0.7 - 10.8 mIU/mL Basophil percentageon 2021 Cholesterol [Mass/Vol] 187 mg/dL <200 [facility] Work Phone: Comment on above: <200 mg/dL Desirable 200-240 mg/dL Borderline >240 mg/dL High Risk Triglyceride [Mass/Vol] 286 mg/dL [facility] Work Phone: Comment on above: The drugs N-Acetylcy steine and Metamizole may falsely depress this assay.Serum Triglycerides Reference Interval Normal <150 mg/dL Borderline high 150 - 199 mg/dL High 200 - 499 mg/dL Very High > or = 500 mg/dL Laboratory - Chemistry and C hemistry - challengeon 12-01-2021 Free T4 [Mass/Vol] 0.94 ng/dL 0.76-1.46 [facility] Work Phone: No Panel Informationon 12-01 Thyroglobulin Antibody < 1.0 IU/mL [facility] Work Phone: Comment on above: Thyroglobulin Antibo dy measured by MebelramaMethodologyPerformed at: [facility] [id number] [place], [place] [id number] Director: Chance Waters PhD, Phone: [phone] Thyroid Stimulating Hormone (TSH) 1.99 uIU/mL 0.358-3.74 [facility] Work Phone: Serum or plasma cholesterol in HDL measurement (mass/volume)on 12-01-2021 Cholesterol in HDL [Mass/Vol] 39 mg/dL [facility] Work Phone: Comment on above: The drugs N-Acetylcy steine and Metamizole may falsely depress this assay. Reference Range HDL <40 mg/dL Low HDL Cholesterol HDL >or= 60 mg/dL High HDL Cholesterol Serum or plasma cholesterol in VLDL measurement (mass/volume)on 12-01-2021 Cholesterol in VLDL [Mass/Vol] 57 mg/dL 5-40 [facility] Work Phone: Serum or plasma low density lipoprotein (LDL) cholesterol measurement (mass/volume)on 12-01-2021 Cholesterol in LDL [Mass/Vol] 91 mg/dL 0-130 [facility] Work Phone: Serum or plasma thyroperoxid ase antibody assay (units/volume)on 12-01-2021 TPO Ab Qn 38 [IU]/mL [facility] Work Phone: Vital Signs Date Time Vital Sign Value Performing Clinician Facility 05-16-2025 13:57-0400 Body height 157.[address] Mati Augustine DO Work Phone: [facility] 05-16-2025 13:57-0400 Body mass index (BMI) [Ratio] 38 kg/m2 Dr. Mati Augustine DO Work Phone: [facility] 05-16-2025 13:57-0400 Body temperature 97.5 [degF] Dr. Mati Augustine DO Work Phone: [facility] 05-16-2025 13:57-0400 Body weight 94.[address] Mati Augustine DO Work Phone: [facility] 05-16-2025 13:57-0400 Diastolic blood pressure 72 mm[Hg] Dr. Mati Augustine DO Work Phone: [facility] 05-16-2025 13:57-0400 Heart rate 91 /min Dr. Mati Augustine DO Work Phone: [facility] 05-16-2025 13:57-0400 Respiratory rate 16 /min Dr. Mati Augustine DO Work Phone: [facility] 05-16-2025 13:57-0400 SaO2% (BldA) [Mass fraction] 96 % Dr. Mati Augustine DO Work Phone: [facility] 05-16-2025 13:57-0400 Systolic blood pressure 118 mm[Hg] Dr. Mati Augustine DO Work Phone: [facility] 05-07-2025 09:26-0400 Body height 157.5 cm Fabrizio Ambrocio MD Work Phone: [facility] 05-07-2025 09:26-0400 Body mass index (BMI) [Ratio] 38.19 kg/m2 Fabrizio Ambrocio MD Work Phone: [facility] 05-07-2025 09:26-0400 Body weight 94.7 kg Fabrizio Ambrocio MD Work Phone: [facility] 05-07-2025 09:26-0400 Diastolic blood pressure 75 mm[Hg] Fabrizio Ambrocio MD Work Phone: [facility] 05-07-2025 09:26-0400 Heart rate 85 /min Fabrizio Ambrocio MD Work Phone: [facility] 05-07-2025 09:26-0400 Respiratory rate 16 /min Fabrizio Ambrocio MD Work Phone: [facility] 05-07-2025 09:26-0400 SaO2% (BldA) [Mass fraction] 100 % Fabrizio Ambrocio MD Work Phone: [facility] 05-07-2025 09:26-0400 Systolic blood pressure 111 mm[Hg] Fabrizio Ambrocio MD Work Phone: [facility] 04-09-2025 09:45-0400 Body height 157.5 cm Fabrizio Ambrocio MD Work Phone: [facility] 04-09-2025 09:45-0400 Body mass index (BMI) [Ratio] 36.73 kg/m2 Fabrizio Ambrocio MD Work Phone: [facility] 04-09-2025 09:45-0400 Body weight 91.1 kg Fabrizio Ambrocio MD Work Phone: [facility] 04-09-2025 09:45-0400 Diastolic blood pressure 54 mm[Hg] Fabrizio Ambrocio MD Work Phone: [facility] 04-09-2025 09:45-0400 Heart rate 68 /min Fabrizio Ambrocio MD Work Phone: [facility] 04-09-2025 09:45-0400 SaO2% (BldA) [Mass fraction] 98 % Fabrizio Ambrocio MD Work Phone: [facility] 04-09-2025 09:45-0400 Systolic blood pressure 104 mm[Hg] Fabrizio Ambrocio MD Work Phone: [facility] 04-02-2025 09:30-0400 Body height 157.[address] Mati Augustine DO Work Phone: [facility] 04-02-2025 09:30-0400 Body mass index (BMI) [Ratio] 36.6 kg/m2 Dr. Mati Augustine DO Work Phone: [facility] 04-02-2025 09:30-0400 Body temperature 97.6 [degF] Dr. Mati Augustine DO Work Phone: [facility] 04-02-2025 09:30-0400 Body weight 90.[address] Mati Augustine DO Work Phone: [facility] 04-02-2025 09:30-0400 Diastolic blood pressure 70 mm[Hg] Dr. Mati Augustine DO Work Phone: [facility] 04-02-2025 09:30-0400 Heart rate 93 /min Dr. Mati Augustine DO Work Phone: [facility] 04-02-2025 09:30-0400 Respiratory rate 16 /min Dr. Mati Augustine DO Work Phone: [facility] 04-02-2025 09:30-0400 SaO2% (BldA) [Mass fraction] 97 % Dr. Mati Augustine DO Work Phone: [facility] 04-02-2025 09:30-0400 Systolic blood pressure 110 mm[Hg] Dr. Mati Augustine DO Work Phone: [facility] 03-22-2025 09:44-0400 Body height 157.5 cm Fabrizio Ambrocio MD Work Phone: [facility] 03-22-2025 09:44-0400 Body mass index (BMI) [Ratio] 37.13 kg/m2 Fabrizio Ambrocio MD Work Phone: [facility] 03-22-2025 09:44-0400 Body weight 92.08 kg Fabrizio Ambrocio MD Work Phone: [facility] 03-22-2025 09:44-0400 Diastolic blood pressure 75 mm[Hg] Fabrizio Ambrocio MD Work Phone: [facility] 03-22-2025 09:44-0400 Heart rate 108 /min Fabrizio Ambrocio MD Work Phone: [facility] 03-22-2025 09:44-0400 Respiratory rate 16 /min Fabrizio Ambrocio MD Work Phone: [facility] 03-22-2025 09:44-0400 SaO2% (BldA) [Mass fraction] 98 % Fabrizio Ambrocio MD Work Phone: [facility] 03-22-2025 09:44-0400 Systolic blood pressure 106 mm[Hg] Fabrizio Ambrocio MD Work Phone: [facility] 02-28-2025 22:47-0400 Body temperature 97.8 [degF] Dr. Mati Augustine DO Work Phone: [facility] 02-28-2025 22:47-0400 Diastolic blood pressure 88 mm[Hg] Dr. Mati Augustine DO Work Phone: [facility] 02-28-2025 22:47-0400 Heart rate 89 /min Dr. Mati Augustine DO Work Phone: [facility] 02-28-2025 22:47-0400 Respiratory rate 18 /min Dr. Mati Augustine DO Work Phone: [facility] 02-28-2025 22:47-0400 SaO2% (BldA) [Mass fraction] 99 % Dr. Mati Augustine DO Work Phone: [facility] 02-28-2025 22:47-0400 Systolic blood pressure 138 mm[Hg] Dr. Mati Augustine DO Work Phone: [facility] 02-28-2025 10:57-0400 Body height 157.[address] Mati Augustine DO Work Phone: [facility] 02-28-2025 10:57-0400 Body weight 86.[address] Mati Augustine DO Work Phone: [facility] 02-27-2025 19:22-0400 Body mass index (BMI) [Ratio] 34.9 kg/m2 Dr. Mati Augustine DO Work Phone: [facility] 02-27-2025 19:00-0400 Body temperature 98.2 [degF] Dr. Mati Augustine DO Work Phone: [facility] 02-27-2025 19:00-0400 Diastolic blood pressure 68 mm[Hg] Dr. Mati Augustine DO Work Phone: [facility] 02-27-2025 19:00-0400 Heart rate 101 /min Dr. Mati Augustine DO Work Phone: [facility] 02-27-2025 19:00-0400 Respiratory rate 16 /min Dr. Mati Augustine DO Work Phone: [facility] 02-27-2025 19:00-0400 SaO2% (BldA) [Mass fraction] 98 % Dr. Mati Augustine DO Work Phone: [facility] 02-27-2025 19:00-0400 Systolic blood pressure 124 mm[Hg] Dr. Mati Augustine DO Work Phone: [facility] 02-27-2025 08:51-0400 Body height 157.[address] Mati Augustine DO Work Phone: [facility] 02-27-2025 08:51-0400 Body mass index (BMI) [Ratio] 35.9 kg/m2 Dr. Mati Augustine DO Work Phone: [facility] 02-27-2025 08:51-0400 Body weight 89.[address] Mati Augustine DO Work Phone: [facility] 02-06-2025 13:07-0400 Body mass index (BMI) [Ratio] 33.3 kg/m2 Dr. Mati Augustine DO Work Phone: [facility] 02-06-2025 13:07-0400 Body temperature 98.6 [degF] Dr. Mati Augustine DO Work Phone: [facility] 02-06-2025 13:07-0400 Body weight 82.[address] Mati Augustine DO Work Phone: [facility] 02-06-2025 13:07-0400 Diastolic blood pressure 74 mm[Hg] Dr. Mati Augustine DO Work Phone: [facility] 02-06-2025 13:07-0400 Heart rate 80 /min Dr. Mati Augustine DO Work Phone: [facility] 02-06-2025 13:07-0400 Respiratory rate 16 /min Dr. Mati Augustine DO Work Phone: [facility] 02-06-2025 13:07-0400 SaO2% (BldA) [Mass fraction] 99 % Dr. Mati Augustine DO Work Phone: [facility] 02-06-2025 13:07-0400 Systolic blood pressure 114 mm[Hg] Dr. Mati Augustine DO Work Phone: [facility] 01-11-2025 08:17-0400 Body height 157.[address] Mati Augustine DO Work Phone: [facility] 01-11-2025 08:17-0400 Body mass index (BMI) [Ratio] 34.4 kg/m2 Dr. Mati Augustine DO Work Phone: [facility] 01-11-2025 08:17-0400 Body temperature 97.6 [degF] Dr. Mati Augustine DO Work Phone: [facility] 01-11-2025 08:17-0400 Body weight 85.[address] Mati Augustine DO Work Phone: [facility] 01-11-2025 08:17-0400 Diastolic blood pressure 68 mm[Hg] Dr. Mati Augustine DO Work Phone: [facility] 01-11-2025 08:17-0400 Heart rate 76 /min Dr. Mati Augustine DO Work Phone: [facility] 01-11-2025 08:17-0400 Respiratory rate 18 /min Dr. Mati Augustine DO Work Phone: [facility] 01-11-2025 08:17-0400 SaO2% (BldA) [Mass fraction] 96 % Dr. Mati Augutsine DO Work Phone: [facility] 01-11-2025 08:17-0400 Systolic blood pressure 110 mm[Hg] Dr. Mati Augustine DO Work Phone: [facility] 12-25-2024 08:35-0400 Body mass index (BMI) [Ratio] 32.1 kg/m2 Dr. Mati Augustine DO Work Phone: [facility] 12-25-2024 08:35-0400 Body temperature 97.1 [degF] Dr. Mati Augustine DO Work Phone: [facility] 12-25-2024 08:35-0400 Body weight 79.[address] Mati Augustine DO Work Phone: [facility] 12-25-2024 08:35-0400 Diastolic blood pressure 78 mm[Hg] Dr. Mati Augustine DO Work Phone: [facility] 12-25-2024 08:35-0400 Heart rate 86 /min Dr. Mati Augustine DO Work Phone: [facility] 12-25-2024 08:35-0400 Respiratory rate 16 /min Dr. Mati Augustine DO Work Phone: [facility] 12-25-2024 08:35-0400 SaO2% (BldA) [Mass fraction] 97 % Dr. Mati Augustine DO Work Phone: [facility] 12-25-2024 08:35-0400 Systolic blood pressure 102 mm[Hg] Dr. Mati Augustine DO Work Phone: [facility] 12-11-2024 11:49-0400 Body height 157.[address] Mati Augustine DO Work Phone: [facility] 12-11-2024 11:49-0400 Body mass index (BMI) [Ratio] 32.3 kg/m2 Dr. Mati Augustine DO Work Phone: [facility] 12-11-2024 11:49-0400 Body temperature 98.5 [degF] Dr. Mati Augustine DO Work Phone: [facility] 12-11-2024 11:49-0400 Body weight 80.[address] Mati Augustine DO Work Phone: [facility] 12-11-2024 11:49-0400 Diastolic blood pressure 70 mm[Hg] Dr. Mati Augustine DO Work Phone: [facility] 12-11-2024 11:49-0400 Heart rate 91 /min Dr. Mati Augustine DO Work Phone: [facility] 12-11-2024 11:49-0400 Respiratory rate 16 /min Dr. Mati Augustine DO Work Phone: [facility] 12-11-2024 11:49-0400 SaO2% (BldA) [Mass fraction] 97 % Dr. Mati Augustine DO Work Phone: [facility] 12-11-2024 11:49-0400 Systolic blood pressure 105 mm[Hg] Dr. Mati Augustine DO Work Phone: [facility] 12-05-2024 09:47-0500 Diastolic blood pressure 65 mm[Hg] Dr. Mati Augustine DO Work Phone: [facility] 12-05-2024 09:47-0500 Heart rate 89 /min Dr. Mati Augustine DO Work Phone: [facility] 12-05-2024 09:47-0500 Respiratory rate 16 /min Dr. Mati Augustine DO Work Phone: [facility] 12-05-2024 09:47-0500 Systolic blood pressure 101 mm[Hg] Dr. Mati Augustine DO Work Phone: [facility] 12-05-2024 09:12-0500 Body temperature 96.4 [degF] Dr. Mati Augustine DO Work Phone: [facility] 02-04-2024 05:58-0400 [facility] 02-04-2024 05:58-0400 Blood Pressure Method TESSAYOHANNES PHAM D O [facility] 02-04-2024 05:58-0400 Body height 157.5 cm TESSA REICHFIELD DO [facility] 02-04-2024 05:58-0400 Body temperature 96.98 [degF] TESSA REICHFIELD DO [facility] 02-04-2024 05:58-0400 Body weight 77.3 kg TESSA REICHFIELD DO [facility] 02-04-2024 05:58-0400 Diastolic Blood Pressure Non-Invasive 78 mm[Hg] TESSA REICHFIELD DO [facility] 02-04-2024 05:58-0400 Heart rate 92 /min TESSA REICHFIELD DO [facility] 02-04-2024 05:58-0400 Respiratory rate 16 /min TESSA REICHFIELD DO [facility] 02-04-2024 05:58-0400 Systolic Blood Pressure Non-Invasive 109 mm[Hg] TESSA REICHFIELD DO [facility] 12-27-2023 09:30-0400 Body mass index (BMI) [Ratio] 32.7 kg/m2 Dr. Mati Augustine Work Phone: [facility] 12-27-2023 09:30-0400 Body temperature 97.7 [degF] Dr. Mati Augustine Work Phone: [facility] 12-27-2023 09:30-0400 Body weight 81.[address] Mati Augustine Work Phone: [facility] 12-27-2023 09:30-0400 Diastolic blood pressure 74 mm[Hg] Dr. Mati Augustine Work Phone: [facility] 12-27-2023 09:30-0400 Heart rate 84 /min Dr. Mati Augustine Work Phone: [facility] 12-27-2023 09:30-0400 Respiratory rate 16 /min Dr. Mati Augustine Work Phone: [facility] 12-27-2023 09:30-0400 SaO2% (BldA) [Mass fraction] 99 % Dr. Mati Augustine Work Phone: [facility] 12-27-2023 09:30-0400 Systolic blood pressure 116 mm[Hg] Dr. Mati Augustine Work Phone: [facility] 12-21-2023 14:35-0400 Body temperature 97.5 [degF] Dr. Mati Augustine Work Phone: [facility] 12-21-2023 14:35-0400 Diastolic blood pressure 65 mm[Hg] Dr. Mati Augustine Work Phone: [facility] 12-21-2023 14:35-0400 Heart rate 74 /min Dr. Mati Augustine Work Phone: [facility] 12-21-2023 14:35-0400 Respiratory rate 16 /min Dr. Mati Augustine Work Phone: [facility] 12-21-2023 14:35-0400 SaO2% (BldA) [Mass fraction] 100 % Dr. Mati Augustine Work Phone: [facility] 12-21-2023 14:35-0400 Systolic blood pressure 99 mm[Hg] Dr. Mati Augustine Work Phone: [facility] 12-21-2023 11:20-0400 Body height 157.[address] Mati Augustine Work Phone: [facility] 12-21-2023 11:20-0400 Body mass index (BMI) [Ratio] 32.7 kg/m2 Dr. Mati Augustine Work Phone: [facility] 12-21-2023 11:20-0400 Body weight 81.[address] Mati Augustine Work Phone: [facility] 12-13-2023 15:23-0400 Body mass index (BMI) [Ratio] 33.3 kg/m2 Dr. Mati Augustine Work Phone: [facility] 12-13-2023 15:23-0400 Body temperature 98.2 [degF] Dr. Mati Augustine Work Phone: [facility] 12-13-2023 15:23-0400 Body weight 82.[address] Mati Augustine Work Phone: [facility] 12-13-2023 15:23-0400 Diastolic blood pressure 70 mm[Hg] Dr. Mati Augustine Work Phone: [facility] 12-13-2023 15:23-0400 Heart rate 92 /min Dr. Mati Augustine Work Phone: [facility] 12-13-2023 15:23-0400 Respiratory rate 18 /min Dr. Mati Augustine Work Phone: [facility] 12-13-2023 15:23-0400 SaO2% (BldA) [Mass fraction] 98 % Dr. Mati Augustine Work Phone: [facility] 12-13-2023 15:23-0400 Systolic blood pressure 102 mm[Hg] Dr. Mati Augustine Work Phone: [facility] 11-30-2023 11:19-0500 Body height 157.[address] Mati Augustine Work Phone: [facility] 11-30-2023 11:19-0500 Body mass index (BMI) [Ratio] 32.3 kg/m2 Dr. Mati Augustine Work Phone: [facility] 11-30-2023 11:19-0500 Body temperature 97.5 [degF] Dr. Mati Augustine Work Phone: [facility] 11-30-2023 11:19-0500 Body weight 80.[address] Mati Augustine Work Phone: [facility] 11-30-2023 11:19-0500 Diastolic blood pressure 70 mm[Hg] Dr. Mati Augustine Work Phone: [facility] 11-30-2023 11:19-0500 Heart rate 72 /min Dr. Mati Augustine Work Phone: [facility] 11-30-2023 11:19-0500 Respiratory rate 14 /min Dr. Mati Augustine Work Phone: [facility] 11-30-2023 11:19-0500 SaO2% (BldA) [Mass fraction] 99 % Dr. Mati Augustine Work Phone: [facility] 11-30-2023 11:19-0500 Systolic blood pressure 114 mm[Hg] Dr. Mati Augustine Work Phone: [facility] 11-01-2023 09:55-0500 Body mass index (BMI) [Ratio] 33.5 kg/m2 Dr. Mati Augustine Work Phone: [facility] 11-01-2023 09:55-0500 Body temperature 98.2 [degF] Dr. Mati Augustine Work Phone: [facility] 11-01-2023 09:55-0500 Body weight [address] Mati Augustine Work Phone: [facility] 11-01-2023 09:55-0500 Diastolic blood pressure 80 mm[Hg] Dr. Mati Augustine Work Phone: [facility] 11-01-2023 09:55-0500 Heart rate 92 /min Dr. Mati Augustine Work Phone: [facility] 11-01-2023 09:55-0500 Respiratory rate 14 /min Dr. Mati Augustine Work Phone: [facility] 11-01-2023 09:55-0500 SaO2% (BldA) [Mass fraction] 99 % Dr. Mati Augustine Work Phone: [facility] 11-01-2023 09:55-0500 Systolic blood pressure 112 mm[Hg] Dr. Mati Augustine Work Phone: [facility] 09-29-2023 10:31-0500 Body height 157.[address] Mati Augustine Work Phone: [facility] 09-29-2023 10:31-0500 Body mass index (BMI) [Ratio] 33.3 kg/m2 Dr. Mati Augustine Work Phone: [facility] 09-29-2023 10:31-0500 Body temperature 97.7 [degF] Dr. Mati Augustine Work Phone: [facility] 09-29-2023 10:31-0500 Body weight 82.[address] Mati Augustine Work Phone: [facility] 09-29-2023 10:31-0500 Diastolic blood pressure 60 mm[Hg] Dr. Mati Augustine Work Phone: [facility] 09-29-2023 10:31-0500 Heart rate 107 /min Dr. Mati Augustine Work Phone: [facility] 09-29-2023 10:31-0500 Respiratory rate 16 /min Dr. Mati Augustine Work Phone: [facility] 09-29-2023 10:31-0500 SaO2% (BldA) [Mass fraction] 98 % Dr. Mati Augustine Work Phone: [facility] 09-29-2023 10:31-0500 Systolic blood pressure 120 mm[Hg] Dr. Mati Augustine Work Phone: [facility] 07-18-2023 09:22-0400 Body height 157.[address] Mati Augustine Work Phone: [facility] 07-18-2023 09:22-0400 Body mass index (BMI) [Ratio] 35 kg/m2 Dr. Mati Augustine Work Phone: [facility] 07-18-2023 09:22-0400 Body weight 86.[address] Mati Augustine Work Phone: [facility] 07-18-2023 09:22-0400 Diastolic blood pressure 94 mm[Hg] Dr. Mati Augustine Work Phone: [facility] 07-18-2023 09:22-0400 Systolic blood pressure 148 mm[Hg] Dr. Mati Augustine Work Phone: [facility] 06-14-2023 15:22-0400 Body mass index (BMI) [Ratio] 34.2 kg/m2 Dr. Mati Augustine Work Phone: [facility] 06-14-2023 15:22-0400 Body temperature 97.4 [degF] Dr. Mati Augustine Work Phone: [facility] 06-14-2023 15:22-0400 Body weight 84.[address] Mati Augustine Work Phone: [facility] 06-14-2023 15:22-0400 Diastolic blood pressure 81 mm[Hg] Dr. Mati Augustine Work Phone: [facility] 06-14-2023 15:22-0400 Heart rate 92 /min Dr. Mati Augustine Work Phone: [facility] 06-14-2023 15:22-0400 Respiratory rate 16 /min Dr. Mati Augustine Work Phone: [facility] 06-14-2023 15:22-0400 SaO2% (BldA) [Mass fraction] 100 % Dr. Mati Augustine Work Phone: [facility] 06-14-2023 15:22-0400 Systolic blood pressure 121 mm[Hg] Dr. Mati Augustine Work Phone: [facility] 06-03-2023 11:04-0400 Diastolic blood pressure 85 mm[Hg] Dr. Mati Augustine Work Phone: [facility] 06-03-2023 11:04-0400 Heart rate 92 /min Dr. Mati Augustine Work Phone: [facility] 06-03-2023 11:04-0400 Respiratory rate 18 /min Dr. Mati Augustine Work Phone: [facility] 06-03-2023 11:04-0400 SaO2% (BldA) [Mass fraction] 100 % Dr. Mati Augustine Work Phone: [facility] 06-03-2023 11:04-0400 Systolic blood pressure 129 mm[Hg] Dr. Mati Augustine Work Phone: [facility] 06-03-2023 09:02-0400 Inhaled oxygen flow rate 41 L/min Dr. Mati Augustine Work Phone: [facility] 06-03-2023 08:28-0400 Body height 157.[address] Mati Augustine Work Phone: [facility] 06-03-2023 08:28-0400 Body mass index (BMI) [Ratio] 33.8 kg/m2 Dr. Mati Augustine Work Phone: [facility] 06-03-2023 08:28-0400 Body temperature 98.7 [degF] Dr. Mati Augustine Work Phone: [facility] 06-03-2023 08:28-0400 Body weight 83.[address] Mati Augustine Work Phone: [facility] 05-31-2023 16:00-0400 Body height 157.[address] Mati Augustine Work Phone: [facility] 05-31-2023 16:00-0400 Body mass index (BMI) [Ratio] 34 kg/m2 Dr. Mati Augustine Work Phone: [facility] 05-31-2023 16:00-0400 Body temperature 98.3 [degF] Dr. Mati Augustine Work Phone: [facility] 05-31-2023 16:00-0400 Body weight 84.[address] Mati Augustine Work Phone: [facility] 05-31-2023 16:00-0400 Diastolic blood pressure 86 mm[Hg] Dr. Mati Augustine Work Phone: [facility] 05-31-2023 16:00-0400 Heart rate 95 /min Dr. Mati Augustine Work Phone: [facility] 05-31-2023 16:00-0400 Respiratory rate 18 /min Dr. Mati Augustine Work Phone: [facility] 05-31-2023 16:00-0400 SaO2% (BldA) [Mass fraction] 100 % Dr. Mati Augustine Work Phone: [facility] 05-31-2023 16:00-0400 Systolic blood pressure 117 mm[Hg] Dr. Mati Augustine Work Phone: [facility] 05-16-2023 14:06-0400 Body mass index (BMI) [Ratio] 34.2 kg/m2 Dr. Mati Augustine Work Phone: [facility] 05-16-2023 14:06-0400 Body temperature 98.2 [degF] Dr. Mati Augustine Work Phone: [facility] 05-16-2023 14:06-0400 Body weight 84.[address] Mati Augustine Work Phone: [facility] 05-16-2023 14:06-0400 Diastolic blood pressure 89 mm[Hg] Dr. Mati Augustine Work Phone: [facility] 05-16-2023 14:06-0400 Heart rate 88 /min Dr. Mati Augustine Work Phone: [facility] 05-16-2023 14:06-0400 Respiratory rate 18 /min Dr. Mati Augustine Work Phone: [facility] 05-16-2023 14:06-0400 SaO2% (BldA) [Mass fraction] 99 % Dr. Mati Augustine Work Phone: [facility] 05-16-2023 14:06-0400 Systolic blood pressure 131 mm[Hg] Dr. Mati Augustine Work Phone: [facility] 03-22-2023 09:28-0400 Body height 157.[address] Mati Augustine Work Phone: [facility] 03-22-2023 09:28-0400 Body mass index (BMI) [Ratio] 33.8 kg/m2 Dr. Mati Augustine Work Phone: [facility] 03-22-2023 09:28-0400 Body temperature 98 [degF] Dr. Mati Augustine Work Phone: [facility] 03-22-2023 09:28-0400 Body weight 83.[address] Mati Augustine Work Phone: [facility] 03-22-2023 09:28-0400 Diastolic blood pressure 82 mm[Hg] Dr. Mati Augustine Work Phone: [facility] 03-22-2023 09:28-0400 Heart rate 81 /min Dr. Mati Augustine Work Phone: [facility] 03-22-2023 09:28-0400 Respiratory rate 14 /min Dr. Mati Augustine Work Phone: [facility] 03-22-2023 09:28-0400 SaO2% (BldA) [Mass fraction] 99 % Dr. Mati Augustine Work Phone: [facility] 03-22-2023 09:28-0400 Systolic blood pressure 142 mm[Hg] Dr. Mati Augustine Work Phone: [facility] 03-01-2023 07:58-0400 Body mass index (BMI) [Ratio] 34.5 kg/m2 Dr. Mati Augustine Work Phone: [facility] 03-01-2023 07:58-0400 Body weight 85.[address] Mati Augustine Work Phone: [facility] 02-10-2023 09:18-0400 Body height 157.[address] Mati Augustine Work Phone: [facility] 02-10-2023 09:18-0400 Body mass index (BMI) [Ratio] 34.4 kg/m2 Dr. Mati Augustine Work Phone: [facility] 02-10-2023 09:18-0400 Body temperature 95.8 [degF] Dr. Mati Augustine Work Phone: [facility] 02-10-2023 09:18-0400 Body weight 85.[address] Mati Augustine Work Phone: [facility] 02-10-2023 09:18-0400 Diastolic blood pressure 80 mm[Hg] Dr. Mati Augustine Work Phone: [facility] 02-10-2023 09:18-0400 Heart rate 104 /min Dr. Mati Augustine Work Phone: [facility] 02-10-2023 09:18-0400 Respiratory rate 18 /min Dr. Mati Augustine Work Phone: [facility] 02-10-2023 09:18-0400 SaO2% (BldA) [Mass fraction] 96 % Dr. Mati Augustine Work Phone: [facility] 02-10-2023 09:18-0400 Systolic blood pressure 118 mm[Hg] Dr. Mati Augustine Work Phone: [facility] 01-21-2023 08:33-0400 Body height 157.[address] Mati Augustine Work Phone: [facility] 01-21-2023 08:33-0400 Body mass index (BMI) [Ratio] 35.4 kg/m2 Dr. Mati Augustine Work Phone: [facility] 01-21-2023 08:33-0400 Body weight 87.[address] Mati Augustine Work Phone: [facility] 01-21-2023 08:33-0400 Diastolic blood pressure 87 mm[Hg] Dr. Mati Augustine Work Phone: [facility] 01-21-2023 08:33-0400 Heart rate 98 /min Dr. Mati Augustine Work Phone: [facility] 01-21-2023 08:33-0400 Respiratory rate 18 /min Dr. Mati Augustine Work Phone: [facility] 01-21-2023 08:33-0400 SaO2% (BldA) [Mass fraction] 100 % Dr. Mati Augustine Work Phone: [facility] 01-21-2023 08:33-0400 Systolic blood pressure 132 mm[Hg] Dr. Mati Augustine Work Phone: [facility] 08-11-2022 16:07-0500 Body temperature 97.3 [degF] Dr. Mati Augustine Work Phone: [facility] Work Phone: 08-11-2022 16:07-0500 Body weight 91.[address] Mati Augustine Work Phone: [facility] Work Phone: 08-11-2022 16:07-0500 Diastolic blood pressure 92 mm[Hg] Dr. Mati Augustine Work Phone: [facility] Work Phone: 08-11-2022 16:07-0500 Heart rate 101 /min Dr. Mati Augustine Work Phone: [facility] Work Phone: 08-11-2022 16:07-0500 Respiratory rate 18 /min Dr. Mati Augustine Work Phone: [facility] Work Phone: 08-11-2022 16:07-0500 SaO2% (BldA) [Mass fraction] 97 % Dr. Mati Augustine Work Phone: [facility] Work Phone: 08-11-2022 16:07-0500 Systolic blood pressure 132 mm[Hg] Dr. Mati Augustine Work Phone: [facility] Work Phone: 03-10-2022 15:46-0400 Body height 157.[address] Mati Augustine Work Phone: [facility] Work Phone: 03-10-2022 15:46-0400 Body mass index (BMI) [Ratio] 36 kg/m2 Dr. Mati Augustine Work Phone: [facility] Work Phone: 03-10-2022 15:46-0400 Body temperature 97.7 [degF] Dr. Mati Augustine Work Phone: [facility] Work Phone: 03-10-2022 15:46-0400 Body weight 89.[address] Mati Augustine Work Phone: [facility] Work Phone: 03-10-2022 15:46-0400 Diastolic blood pressure 84 mm[Hg] Dr. Mati Augustine Work Phone: [facility] Work Phone: 03-10-2022 15:46-0400 Heart rate 115 /min Dr. Mati Augustine Work Phone: [facility] Work Phone: 03-10-2022 15:46-0400 Respiratory rate 16 /min Dr. Mati Augustine Work Phone: [facility] Work Phone: 03-10-2022 15:46-0400 SaO2% (BldA) [Mass fraction] 99 % Dr. Mati Augustine Work Phone: [facility] Work Phone: 03-10-2022 15:46-0400 Systolic blood pressure 122 mm[Hg] Dr. Mati Augustine Work Phone: [facility] Work Phone: 03-10-2022 15:46-0400 Body height 157.[address] Mati Augustine Work Phone: [facility] Work Phone: 03-10-2022 15:46-0400 Body mass index (BMI) [Ratio] 36 kg/m2 Dr. Mati Augustine Work Phone: [facility] Work Phone: 03-10-2022 15:46-0400 Body temperature 97.7 [degF] Dr. Mati Augustine Work Phone: [facility] Work Phone: 03-10-2022 15:46-0400 Body weight 89.[address] Mati Augustine Work Phone: [facility] Work Phone: 03-10-2022 15:46-0400 Diastolic blood pressure 84 mm[Hg] Dr. Mati Augustine Work Phone: [facility] Work Phone: 03-10-2022 15:46-0400 Heart rate 115 /min Dr. Mati Augustine Work Phone: [facility] Work Phone: 03-10-2022 15:46-0400 Respiratory rate 16 /min Dr. Mati Augustine Work Phone: [facility] Work Phone: 03-10-2022 15:46-0400 SaO2% (BldA) [Mass fraction] 99 % Dr. Mati Augustine Work Phone: [facility] Work Phone: 03-10-2022 15:46-0400 Systolic blood pressure 122 mm[Hg] Dr. Mati Augustine Work Phone: [facility] Work Phone: 01-21-2022 14:38-0400 Body mass index (BMI) [Ratio] 36.3 kg/m2 Dr. Mati Augustine Work Phone: [facility] Work Phone: 01-21-2022 14:38-0400 Body temperature 97.6 [degF] Dr. Mati Augustine Work Phone: [facility] Work Phone: 01-21-2022 14:38-0400 Body weight 90.[address] Mati Augustine Work Phone: [facility] Work Phone: 01-21-2022 14:38-0400 Diastolic blood pressure 56 mm[Hg] Dr. Mati Augustine Work Phone: [facility] Work Phone: 01-21-2022 14:38-0400 Heart rate 102 /min Dr. Mati Augustine Work Phone: [facility] Work Phone: 01-21-2022 14:38-0400 Respiratory rate 17 /min Dr. Mati Augustine Work Phone: [facility] Work Phone: 01-21-2022 14:38-0400 SaO2% (BldA) [Mass fraction] 98 % Dr. Mati Augustine Work Phone: [facility] Work Phone: 01-21-2022 14:38-0400 Systolic blood pressure 122 mm[Hg] Dr. Mati Augustine Work Phone: [facility] Work Phone: 01-21-2022 14:38-0400 Body mass index (BMI) [Ratio] 36.3 kg/m2 Dr. Mati Augustine Work Phone: [facility] Work Phone: 01-21-2022 14:38-0400 Body temperature 97.6 [degF] Dr. Mati Augustine Work Phone: [facility] Work Phone: 01-21-2022 14:38-0400 Body weight 90.[address] Mati Augustine Work Phone: [facility] Work Phone: 01-21-2022 14:38-0400 Diastolic blood pressure 56 mm[Hg] Dr. Mati Augustine Work Phone: [facility] Work Phone: 01-21-2022 14:38-0400 Heart rate 102 /min Dr. Mati Augustine Work Phone: [facility] Work Phone: 01-21-2022 14:38-0400 Respiratory rate 17 /min Dr. Mati Augustine Work Phone: [facility] Work Phone: 01-21-2022 14:38-0400 SaO2% (BldA) [Mass fraction] 98 % Dr. Mati Augustine Work Phone: [facility] Work Phone: 01-21-2022 14:38-0400 Systolic blood pressure 122 mm[Hg] Dr. Mati Augustine Work Phone: [facility] Work Phone: 01-20-2022 16:14-0400 Body mass index (BMI) [Ratio] 35.9 kg/m2 Dr. Mati Augustine Work Phone: [facility] Work Phone: 01-20-2022 16:14-0400 Body temperature 97.8 [degF] Dr. Mati Augustine Work Phone: [facility] Work Phone: 01-20-2022 16:14-0400 Body weight 89.[address] Mati Augustine Work Phone: [facility] Work Phone: 01-20-2022 16:14-0400 Diastolic blood pressure 60 mm[Hg] Dr. Mati Augustine Work Phone: [facility] Work Phone: 01-20-2022 16:14-0400 Heart rate 107 /min Dr. Mati Augustine Work Phone: [facility] Work Phone: 01-20-2022 16:14-0400 Respiratory rate 16 /min Dr. Mati Augustine Work Phone: [facility] Work Phone: 01-20-2022 16:14-0400 SaO2% (BldA) [Mass fraction] 97 % Dr. Mati Augustine Work Phone: [facility] Work Phone: 01-20-2022 16:14-0400 Systolic blood pressure 104 mm[Hg] Dr. Mati Augustine Work Phone: [facility] Work Phone: 01-20-2022 16:14-0400 Body mass index (BMI) [Ratio] 35.9 kg/m2 Dr. Mati Augustine Work Phone: [facility] Work Phone: 01-20-2022 16:14-0400 Body temperature 97.8 [degF] Dr. Mati Augustine Work Phone: [facility] Work Phone: 01-20-2022 16:14-0400 Body weight 89.[address] Mati Augustine Work Phone: [facility] Work Phone: 01-20-2022 16:14-0400 Diastolic blood pressure 60 mm[Hg] Dr. Mati Augustine Work Phone: [facility] Work Phone: 01-20-2022 16:14-0400 Heart rate 107 /min Dr. Mati Augustine Work Phone: [facility] Work Phone: 01-20-2022 16:14-0400 Respiratory rate 16 /min Dr. Mati Augustine Work Phone: [facility] Work Phone: 01-20-2022 16:14-0400 SaO2% (BldA) [Mass fraction] 97 % Dr. Mati Augustine Work Phone: [facility] Work Phone: 01-20-2022 16:14-0400 Systolic blood pressure 104 mm[Hg] Dr. Mati Augustine Work Phone: [facility] Work Phone: 12-23-2021 07:58-0400 Body mass index (BMI) [Ratio] 35.1 kg/m2 Dr. Mati Augustine Work Phone: [facility] Work Phone: 12-23-2021 07:58-0400 Body temperature 98 [degF] Dr. Mati Augustine Work Phone: [facility] Work Phone: 12-23-2021 07:58-0400 Body weight 87.[address] Mati Augustine Work Phone: [facility] Work Phone: 12-23-2021 07:58-0400 Diastolic blood pressure 82 mm[Hg] Dr. Mati Augustine Work Phone: [facility] Work Phone: 12-23-2021 07:58-0400 Heart rate 96 /min Dr. Mati Augustine Work Phone: [facility] Work Phone: 12-23-2021 07:58-0400 Respiratory rate 14 /min Dr. Mati Augustine Work Phone: [facility] Work Phone: 12-23-2021 07:58-0400 SaO2% (BldA) [Mass fraction] 98 % Dr. Mati Augustine Work Phone: [facility] Work Phone: 12-23-2021 07:58-0400 Systolic blood pressure 120 mm[Hg] Dr. Mati Augustine Work Phone: [facility] Work Phone: 12-23-2021 07:58-0400 Body height 157.[address] Mati Augustine Work Phone: [facility] Work Phone: 12-23-2021 07:58-0400 Body mass index (BMI) [Ratio] 35.1 kg/m2 Dr. Mati Augustine Work Phone: [facility] Work Phone: 12-23-2021 07:58-0400 Body temperature 98 [degF] Dr. Mati Augustine Work Phone: [facility] Work Phone: 12-23-2021 07:58-0400 Body weight 87.[address] Mati Augustine Work Phone: [facility] Work Phone: 12-23-2021 07:58-0400 Diastolic blood pressure 82 mm[Hg] Dr. Mati Augustine Work Phone: [facility] Work Phone: 12-23-2021 07:58-0400 Heart rate 96 /min Dr. Mati Augustine Work Phone: [facility] Work Phone: 12-23-2021 07:58-0400 Respiratory rate 14 /min Dr. Mati Augustine Work Phone: [facility] Work Phone: 12-23-2021 07:58-0400 SaO2% (BldA) [Mass fraction] 98 % Dr. Mati Augustine Work Phone: [facility] Work Phone: 12-23-2021 07:58-0400 Systolic blood pressure 120 mm[Hg] Dr. Mati Augustine Work Phone: [facility] Work Phone: 12-01-2021 07:30-0500 Body mass index (BMI) [Ratio] 35.1 kg/m2 Dr. Mati Augustine Work Phone: [facility] Work Phone: 12-01-2021 07:30-0500 Body temperature 96.5 [degF] Dr. Mati Augustine Work Phone: [facility] Work Phone: 12-01-2021 07:30-0500 Body weight 87.[address] Mati Augustine Work Phone: [facility] Work Phone: 12-01-2021 07:30-0500 Diastolic blood pressure 98 mm[Hg] Dr. Mati Augustine Work Phone: [facility] Work Phone: 12-01-2021 07:30-0500 Heart rate 111 /min Dr. Mati Augustine Work Phone: [facility] Work Phone: 12-01-2021 07:30-0500 Respiratory rate 16 /min Dr. Mati Augustine Work Phone: [facility] Work Phone: 12-01-2021 07:30-0500 SaO2% (BldA) [Mass fraction] 99 % Dr. Mati Augustine Work Phone: [facility] Work Phone: 12-01-2021 07:30-0500 Systolic blood pressure 148 mm[Hg] Dr. Mati Augustine Work Phone: [facility] Work Phone: Encounters Encounter Date Encounter Type Care Provider Facility Start: 05-16-2025 End: 05-16-[address] Mati Augustine DO Work Phone: -[facility] Start: 05-16-2025 End: 05-16-2025 Patient encounter procedure Rob HERNANDEZ -[facility] Work Phone: Start: 05-07-2025 End: 05-07-2025 Patient encounter procedure Fabrizio Ambrocio MD Work Phone: [facility] Comment on above: Intracranial meningi mei (HCC) (Primary Dx) Start: 05-07-2025 End: 05-07-2025 ambulatory FABRIZIO AMBROCIO [facility] [place] Start: 04-30-2025 ambulatory PAIGE HUDDLESTON Facility :[facility] Start: 04-30-2025 End: 04-30-2025 Subsequent hospital visit by physician [facility] (I-Stat/1.5t) Work Phone: Radiology Comment on above: Intracranial meningi mei (HCC) [D32.0] Start: 04-09-2025 End: 04-09-2025 Patient encounter procedure Fabrizio Ambrocio MD Work Phone: [facility] Comment on above: Intracranial meningi mei (HCC) (Primary Dx) Start: 04-09-2025 End: 04-09-2025 ambulatory FABRIZIO AMBROCIO Facility:[facility] Start: 04-02-2025 End: 04-02-[address] Mati Mccartney DO -[facility] Work Phone: Start: 04-02-2025 End: 04-02-[address] Mati Augustine DO Work Phone: -[facility] Start: 03-22-2025 End: 03-22-2025 Patient encounter procedure Fabrizio Ambrocio MD Work Phone: [facility] Comment on above: Intracranial meningi mei (HCC) (Primary Dx) Start: 03-22-2025 End: 03-22-2025 ambulatory FABRIZIO AMBROCIO [facility] [place] Start: 03-01-2025 End: 03-09-2025 Evaluation and management of inpatient OLIVE GENE BENNETTSis Facility:[facility] Start: 02-28-2025 Non-patient / Non-visit Dr. Esteban santiago MD -[facility] Work Phone: Start: 02-27-2025 Non-patient / Non-visit Dr. Godwin almaraz DO -[facility] Work Phone: Start: 02-27-2025 ambulatory Godwin Lynch Facility:[facility] Start: 02-27-2025 End: 02-28-2025 Evaluation and management of inpatient Dr. Godwin Lynch DO -Progressive Care Unit Work Phone: Start: 02-27-2025 End: 02-28-[address] Mati Augustine DO Work Phone: [facility] Work Phone: Start: 02-27-2025 End: 02-27-[address] Gene Lanier MD -[facility] Work Phone: Start: 02-26-2025 End: 02-27-2025 ambulatory [facility] Start: 02-19-2025 End: 02-19-2025 Clinical Support Leatha Guerrero Work Phone: [facility] Comment on above: GRAYSON (generalized anx iety disorder); Major depressive disorder, recurrent episode, moderate (HCC); PTSD (post-traumatic stress disorder) Start: 02-06-2025 End: 02-06-[address] Mati Mccartney DO -[facility] Work Phone: Start: 02-06-2025 End: 02-06-2025 ambulatory Mati Augustine Facility:[facility] Start: 01-26-2025 End: 01-26-[address] Briseida Starks DO -Laboratory Work Phone: Start: 01-26-2025 End: 01-26-2025 ambulatory Briseida Starks Facility:[facility] Start: 01-15-2025 End: 01-15-[address] Mati Augustine DO Work Phone: [facility] Work Phone: Start: 01-15-2025 End: 01-15-[address] Gene Lanier MD -Laboratory Work Phone: Start: 01-15-2025 End: 01-15-2025 ambulatory Gene Lanier Facility:[facility] Start: 01-11-2025 End: 01-11-[address] Gene Lanier MD -[facility] Work Phone: Start: 01-11-2025 End: 01-11-2025 ambulatory Gene Lanier Facility:[facility] Start: 01-05-2025 End: 01-05-[address] Gene Lanier MD -Ultrasound, [facility] Work Phone: Start: 01-05-2025 End: 01-05-2025 ambulatory Gene Lanier Facility:[facility] Start: 12-25-2024 End: 12-25-[address] Mati Mccartney DO -[facility] Work Phone: Start: 12-25-2024 End: 12-25-2024 ambulatory Mati Augustine Facility:[facility] Start: 12-11-2024 End: 12-11-[address] Yaniv Crawford MD -[facility] Work Phone: Start: 12-11-2024 End: 12-11-2024 ambulatory Mati Augustine Facility:[facility] Start: 12-05-[address] Rissa Crawford MD -[facility] Start: 12-05-2024 End: 12-05-[address] Mati Augustine DO Work Phone: [facility] Work Phone: Start: 12-05-2024 End: 12-05-[address] Yaniv Crawford MD -Cat Scan, [facility] Work Phone: Start: 12-05-2024 End: 12-05-2024 ambulatory Mati Augustine Facility:[facility] Start: 10-11-2024 End: 10-11-[address] Yaniv Crawford MD -Outpatient Breast Imaging Work Phone: Start: 10-11-2024 End: 10-11-2024 ambulatory Mati Augustine Facility:[facility] Start: 08-24-2024 End: 08-24-[address] Briseida Starks DO -Laboratory Work Phone: Start: 08-24-2024 End: 08-24-2024 ambulatory Mati Augustine Facility:[facility] Start: 07-27-2024 End: 07-27-2024 ambulatory Mati Augustine Facility:[facility] Start: 07-27-2024 End: 07-27-2024 ambulatory Mati Sherrill Sandoval Facility:[facility] Start: 06-26-2024 End: 06-26-2024 ambulatory Mati Augustine Facility:[facility] Start: 06-12-2024 End: 06-12-2024 ambulatory Mati Augustine Facility:[facility] Start: 02-04-2024 End: 02-04-2024 Emergency department patient visit DR ELIANE MOLINA DO Facility:[facility] Start: 02-04-2024 End: 02-04-2024 Emergency department patient visit TESSAYOHANNES MORATAYAFIELD LIZAMA [facility] Start: 01-25-2024 End: 01-25-[address] Mati Augustine Work Phone: [facility] Work Phone: Start: 01-25-2024 End: 01-25-[address] Mati Augustine Work Phone: [facility]-Laboratory, [facility] Pavilion Start: 01-21-2024 End: 01-21-[address] Mati Augustine Work Phone: [facility] Work Phone: Start: 01-21-2024 End: 01-21-[address] Mati Augustine Work Phone: [facility], [facility] Work Phone: Start: 01-03-2024 End: 01-03-[address] Mati Augustine Work Phone: [facility] Work Phone: Start: 12-27-2023 End: 12-27-[address] Mati Augustine Work Phone: [facility] Work Phone: Start: 12-23-2023 End: 12-23-[address] Mati Augustine Work Phone: [facility] Work Phone: Start: 12-21-2023 Non-patient / Non-visit Dr. Garcia Work Phone: [facility] Start: 12-21-2023 End: 12-21-2023 Admission to same day surgery center Dr. Mati Augustine Work Phone: [facility]-Surgical Day Care Start: 12-21-2023 End: 12-21-[address] Mati Augustine Work Phone: [facility] Work Phone: Start: 12-13-2023 End: 12-13-[address] Mati Augustine Work Phone: [facility] Work Phone: Start: 12-06-2023 End: 12-06-[address] Mati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 transitional type, WHO Grade 1. See comment. Comments: AMENDED REPORT DETAIL Amended: 03/14/2025 8:13 AM This report is being amended to reflect a change in the diagnostic field. The original report did not include both parts A and B, which has been corrected. There is no change to the actual diagnosis. Dr. Ambrocio was notified of this change by StartX message on 03/14/2025. PRE-SURGICAL SYMPTOMS: Cognitive difficulty, blurry vision, mood swings, frontal headache, decreased sense of smell INCISION: Healed HISTORY OF PRESENT ILLNESS : The patient presents for a 8-week post operative visit with imaging (MRI B) for evaluation. This is a 54-year-old female with a PMHx of thyroid disease, obesity, anxiety who was seen for consult at [facility] on 03/01/2025. She reported that she saw her PCP for neck swelling and CT thyroid was obtained. Once completed this showed a brain mass and she was advised to present to the ED. She then endorsed a 6-month history of difficulty with cognition, blurry vision, decreased sense of smell and frontal headaches. Further workup was conducted including MRI brain which confirmed an intracranial mass suspected to be a meningioma in the subfrontal area. Recommendation was to undergo surgical resection. She and her family agreed and this was completed as noted above. She did well following surgery and was cleared for discharge home. She was seen in the office on 03/22/2025 for a routine postop evaluation and suture removal. She reported that she was doing well. She denied any significant headache, visual changes, speech deficits, seizure activity, motor or sensory deficits. She felt that her sense of smell and hearing was heightened since surgery. Incision was healing well and sutures were removed without any issue. There are no signs and symptoms of infection noted. Recommendation was to follow up in 2 weeks for a routine post op evaluation. She was last seen in the office on 04/09/2025 and continued to report that she was doing well. She reported that she noticed that she was writing her numbers backwards at times but caught herself and was able to correct it. She had mild tenderness to the incision site. Otherwise she denied any other concerns. Incision site was well-healed. She denied any issues with her sense of smell. Recommendation was to follow-up in 1 month with an MRI of the brain prompting her visit today. Since last visit she states she has developed difficulty with the right eye. She will get vision changes intermittently. She has lost her sense of smell. She concerned that she has a divot on the side of her head by the incision and 2 in the back of her head. She feels her left leg is not working as strong as it was prior to surgery. She is also concerned about her weight. She presents for image review, evaluation and plan of care. 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 No pertinent family history. ALLERGIES Allergen Reactions Erythromycin Itching, Swelling Sulfa (Sulfonamide * Hives Genta-Gel Swelling Current Outpatient Medications Medication Sig Dispense Refill Echinacea 400 mg cap Take 400 mg by mouth once daily. ASCORBIC ACID-BIOFLAVONOIDS ORAL Take 100 mg by mouth once daily. C-100 with 10 mg Bioflavonoids 2 pill qday multivit with calcium,iron,min (WOMEN'S MULTIPLE VITAMINS ORAL) Take 1 tablet by mouth once daily. Active Woman's Multi with Soy, Lutein, Black Cohosh and Cranberry escitalopram oxalate (LEXAPRO) 20 mg tablet Take 20 mg by mouth once daily. triamterene/hydrochlorothiazid (DYAZIDE ORAL) Take 0.5 mg by mouth once daily. metoprolol succinate ER (TOPROL XL) 50 mg 24 hr tablet Take 50 mg by mouth two times a day. omeprazole (PRILOSEC) 20 mg capsule Take 20 mg by mouth two times a day. brexpiprazole (REXULTI) 2 mg tablet Take 2 mg by mouth once daily. clonazePAM (KLONOPIN) 2 mg tablet Take 1 mg by mouth at bedtime as needed for anxiety. Take 1 to 2 mg rosuvastatin (CRESTOR) 10 mg tablet Take 10 mg by mouth daily at bedtime. valACYclovir (VALTREX) 500 mg tablet Take 500 mg by mouth once daily. iv contrast (will be provided with radiology test) MRI Brain Inject, intravenously, once for 1 dose.No IV access, insert saline lock prior to beginning of sedation, infusion, injection of imaging exam.Discontinue saline lock post exam. If Pt. has a central line or IVAD, may access for administration according to line specific nursing protocol.Once exam is complete flush line and de-access according to line specific nursing protocol in the MR contrast administration guidelines link 1 each 0 No current facility-administered medications for this visit. Review of Systems Constitutional: Negative for chills, diaphoresis (Negative for night sweats.) and fever. HENT: Negative for ear discharge and rhinorrhea. Eyes: Negative for discharge. Respiratory: Negative for cough, shortness of breath and wheezing. Cardiovascular: Negative for chest pain, palpitations and leg swelling. Gastrointestinal: Negative for constipation, diarrhea, nausea and vomiting. Endocrine: Negative for cold intolerance and heat intolerance. Genitourinary: Negative for frequency. Negative for urinary incontinence and urinary retention. Musculoskeletal: Negative for back pain, joint swelling, myalgias and neck pain. Skin: Negative for rash (Negative for hives and skin lesions.). Allergic/Immunologic: Negative for environmental allergies and food allergies. Negative for contact allergy, seasonal allergies. Neurological: Negative for dizziness, seizures, syncope, weakness, light-headedness, numbness (Negative for numbness in extremities.) and headaches. Hematological: Does not bruise/bleed easily. Psychiatric/Behavioral: The patient is not nervous/anxious. Negative for depression. PAIN EVALUATION 05/06/2025 1127 Pain Level: 5 Pain Location: Scalp Description: Itching;Numbness;Pressure;Pulsat ing;Stabbing;Throbbing Duration Amount of Time: 2 Duration Units: Weeks Frequency: Intermittent Intervention/Comfort measure: Cold;Massage;Positioning;Rocking /holding BP 111/75 Pulse 85 Resp 16 Ht 5' 2 (1.575 m) Wt 208 lb 12.4 oz (94.7 kg) SpO2 100% BMI 38.19 kg/m PHYSICAL EXAM: Mental State : Alert. Attention span and concentration normal for patient's age. Speech normal, fluent. No receptive or expressive speech deficit. Recent and remote memory normal. Orientation : Oriented to person, place and time. Higher Cortical Function : Intact speech and language. Comprehension normal. Fund of knowledge intact for pt level of education. Cranial Nerves : II: No visual field cut, no blurring. Makes and sustains eye contact. III, IV, : No double vision or lid drooping. Pupils equal and reactive to light. Extraocular muscles intact. No nystagmus. V: Normal sensation on the face, normal jaw movements. VII: No paresis on either side. VIII: No gross hearing deficit IX: Good and equal shoulder shrugs. XII: Tongue midline, no fasciculations. Sensory: SILT. Normal Sensation in bilateral upper and bilateral lower extremities to touch and noxious stimuli. Motor: Normal muscle tone and bulk. No spasticity, tremor or uncontrollable movements. Strength: Upper Extremities : R L Deltoid 5/5 5/5 Biceps 5/5 5/5 Triceps 5/5 5/5 Wrist Ext 5/5 5/5 Wrist Flx 5/5 5/5 Hand Int 5/5 5/5 Lower Extremities : Hip Flexors 5/5 5/5 Hip Extensors 5/5 5/5 Hip Abductors 5/5 5/5 Straight leg Neg Neg Ankle dorsiflex 5/5 5/5 Ankle Plantar 5/5 5/5 Cerebellar Function : Normal finger to nose. Normal rapid alternating movements. No ataxia. Gait and Station: Normal gait. No assistive device usage. IMAGING: MRI brain WO/W IVCON performed on 04/30/2025 demonstrates: IMPRESSION: Postoperative changes as above with minimal linear enhancement at the operative site which is most likely postoperative in nature although follow-up is recommended. PreOP Postop 04/30/2025 ASSESSMENT/PLAN: 1. Intracranial meningioma (HCC) - ICD9: 225.2, ICD10: D32.0 Patient with grade 1 meningioma postop visit. Patient is doing well with multiple questions about slight depression on the right side of her head where she had the craniotomy and some blurring of vision and lack of smell as well as slight laziness in the left lower extremity which is not demonstrable by examination. I directed her to see her PCP with regard to question of swelling of the left lower extremity without pain or pitting edema. I reviewed the MRI scan postop and it shows no evidence of residual or recurrence. I recommended a follow-up visit in 9 months with an MRI scan. She wants to return to work on 13 May 2025. From the neurosurgery standpoint she can return to work. - MRI BRAIN WO/W IVCON - IV CONTRAST (RADIOLOGY PROCEDURE) - NOT ON MAR Fabrizio Ambrocio MD FOLLOW UP: Return in about 9 months (around 02/04/2026) for review of MRI. Please Note: This note has been partially generated using [employer], a speech recognition software program, and may contain errors including punctuation, grammar, spelling, gender, and inappropriate words or phrases that pertain to the system. Recording using SoftRun software for draft documentation of the visit was discussed with the patient/authorized risk control field representative; all questions welcomed and answered. Patient/authorized risk control field representative agreed to proceed documented in this encounter [facility] 05-07-2025 Note HNO ID: [id number] Author: FABRIZIO AMBROCIO MD Service: ? Author Type: Physician Type: Progress Notes Filed: 05/08/2025 08:12 Note Text: NEUROSURGERY POST OP NOTE Dr. Fabrizio Ambrocio MD, FACS Date of visit: May 07, 2025 Patient Name: Ms.Connie Cira Patton Date of : 1970 Current Age: [age] year old MRN/E# [id number] Last Office Visit: 04/09/2025 CHIEF COMPLAINT: Patient presents with: Established Patient: C/o completely losing sense of smell, but occasionally smelling formaldehyde or acetone, blurred vision, difficulty adjusting from darkness to light, eye drainage, feeling air bubbles between her skin and her skull, L ankle swelling, huge crater in front of R ear SURGERY: Right frontal craniotomy for tumor excision on 03/06/[address] Ambrocio and Dr. Cobos. FINAL DIAGNOSIS A and B. Brain tumor, resection: - Meningioma, transitional type, WHO Grade 1. See comment. Comments: AMENDED REPORT DETAIL Amended: 03/14/2025 8:13 AM This report is being amended to reflect a change in the diagnostic field. The original report did not include both parts A and B, which has been corrected. There is no change to the actual diagnosis. Dr. Ambrocio was notified of this change by StartX message on 03/14/2025. PRE-SURGICAL SYMPTOMS: Cognitive difficulty, blurry vision, mood swings, frontal headache, decreased sense of smell INCISION: Healed HISTORY OF PRESENT ILLNESS : The patient presents for a 8-week post operative visit with imaging (MRI B) for evaluation. This is a 54-year-old female with a PMHx of thyroid disease, obesity, anxiety who was seen for consult at [facility] on 03/01/2025. She reported that she saw her PCP for neck swelling and CT thyroid was obtained. Once completed this showed a brain mass and she was advised to present to the ED. She then endorsed a 6-month history of difficulty with cognition, blurry vision, decreased sense of smell and frontal headaches. Further workup was conducted including MRI brain which confirmed an intracranial mass suspected to be a meningioma in the subfrontal area. Recommendation was to undergo surgical resection. She and her family agreed and this was completed as noted above. She did well following surgery and was cleared for discharge home. She was seen in the office on 03/22/2025 for a routine postop evaluation and suture removal. She reported that she was doing well. She denied any significant headache, visual changes, speech deficits, seizure activity, motor or sensory deficits. She felt that her sense of smell and hearing was heightened since surgery. Incision was healing well and sutures were removed without any issue. There are no signs and symptoms of infection noted. Recommendation was to follow up in 2 weeks for a routine post op evaluation. She was last seen in the office on 04/09/2025 and continued to report that she was doing well. She reported that she noticed that she was writing her numbers backwards at times but caught herself and was able to correct it. She had mild tenderness to the incision site. Otherwise she denied any other concerns. Incision site was well-healed. She denied any issues with her sense of smell. Recommendation was to follow-up in 1 month with an MRI of the brain prompting her visit today. Since last visit she states she has developed difficulty with the right eye. She will get vision changes intermittently. She has lost her sense of smell. She concerned that she has a divot on the side of her head by the incision and 2 in the back of her head. She feels her left leg is not working as strong as it was prior to surgery. She is also concerned about her weight. She presents for image review, evaluation and plan of care. 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 No pertinent family history. ALLERGIES Allergen Reactions Erythromycin Itching, Swelling Sulfa (Sulfonamide * Hives Genta-Gel Swelling Current Outpatient Medications Medication Sig Dispense Refill Echinacea 400 mg cap Take 400 mg by mouth once daily. ASCORBIC ACID-BIOFLAVONOIDS ORAL Take 100 mg by mouth once daily. C-100 with 10 mg Bioflavonoids 2 pill qday multivit with calcium,iron,min (WOMEN'S MULTIPLE VITAMINS ORAL) Take 1 tablet by mouth once daily. Active Woman's Multi with Soy, Lutein, Black Cohosh and Cranberry escitalopram oxalate (LEXAPRO) 20 mg tablet Take 20 mg by mouth once daily. triamterene/hydroc (more content not included)... [facility] 04-30-2025 History of Present illness Narrative Radiology Service Progress Note DATE OF SERVICE: April 30, 2025 TIME: 1:47 PM PATIENT IDENTITY VERIFICATION COMPLETED USING TWO (2) STANDARD IDENTIFIERS: Name and Date of confirmed by patient verbally. FALL SCREENING: Has the patient had 2 falls in the last year or 1 fall with injury or currently using an Ambulatory Assistive Device (Walker, Cane, Wheelchair, Crutches, etc.)? No PATIENT GENDER DATA: Assigned female at . status: : No status: NO. PATIENT RELEVANT IMPLANT DATA REVIEWED: Yes PATIENT PRESENTS WITH AN IMPLANTABLE OR ATTACHED MARINE RIGGER: No ALLERGIES: Reviewed and unchanged CONTRAST ALLERGY: NO. EXAM: MRI - CONTRAST TYPE: GROUP II PERIPHERAL IV DATA: Ambulatory: A peripheral IV was started in the Right antecubital site with a Angio cath: 22 gauge. RADIOLOGY DEPARTMENT: MR; Exam(s) Completed: Head: Routine Brain. Aromatherapy Administered: No SIGNATURE: ZAKI Hernandez) PATIENT NAME: Sierra Patton DATE: April 30, 2025 TIME: 1:47 PM documented in this encounter [facility] 04-30-2025 Note HNO ID: [id number] Author: KEIKO HERNANDEZ RT (R) Service: ? Author Type: Technologist Type: Progress Notes Filed: 04/30/2025 13:49 Note Text: Radiology Service Progress Note DATE OF SERVICE: April 30, 2025 TIME: 1:47 PM PATIENT IDENTITY VERIFICATION COMPLETED USING TWO (2) STANDARD IDENTIFIERS: Name and Date of confirmed by patient verbally. FALL SCREENING: Has the patient had 2 falls in the last year or 1 fall with injury or currently using an Ambulatory Assistive Device (Walker, Cane, Wheelchair, Crutches, etc.)? No PATIENT GENDER DATA: Assigned female at . status: : No status: NO. PATIENT RELEVANT IMPLANT DATA REVIEWED: Yes PATIENT PRESENTS WITH AN IMPLANTABLE OR ATTACHED MARINE RIGGER: No ALLERGIES: Reviewed and unchanged CONTRAST ALLERGY: NO. EXAM: MRI - CONTRAST TYPE: GROUP II PERIPHERAL IV DATA: Ambulatory: A peripheral IV was started in the Right antecubital site with a Angio cath: 22 gauge. RADIOLOGY DEPARTMENT: MR; Exam(s) Completed: Head: Routine Brain. Aromatherapy Administered: No SIGNATURE: Keiko Hernandez, RT(R) PATIENT NAME: Sierra Patton DATE: April 30, 2025 TIME: 1:47 PM [facility] 04-09-2025 History of Present illness Narrative NEUROSURGERY POST OP NOTE Dr. Fabrizio Ambrocio MD, FACS Date of visit: April 09, 2025 Patient Name: Ms.Connie Cira Patton Date of : 1970 Current Age: [age] year old MRN/E# [id number] Last Office Visit: 03/22/2025 CHIEF COMPLAINT: Patient presents with: Post Op SURGERY: Right frontal craniotomy for tumor excision on 03/06/[address] Ambrocio and Dr. Cobos. FINAL DIAGNOSIS A and B. Brain tumor, resection: - Meningioma, transitional type, WHO Grade 1. See comment. Comments: AMENDED REPORT DETAIL Amended: 03/14/2025 8:13 AM This report is being amended to reflect a change in the diagnostic field. The original report did not include both parts A and B, which has been corrected. There is no change to the actual diagnosis. Dr. Ambrocio was notified of this change by StartX message on 03/14/2025. PRE-SURGICAL SYMPTOMS: Cognitive difficulty, blurry vision, mood swings, frontal headache, decree sense of smell INCISION: Healing - without signs or symptoms of infection. Small piece of suture under the skin- no infection or opening. HISTORY OF PRESENT ILLNESS : The patient presents for a 1 month post operative visit.. This is a 54-year-old female with a PMHx of thyroid disease, obesity, anxiety who was seen at [facility] for consult on 03/01/2025. Patient stated that she was having neck swelling so she saw her provider who ordered a CT thyroid. Once completed this showed a brain mass and she was advised to present to the ED. She reported a 6-month history of difficulty with cognition, blurry vision, decreased sense of smell and frontal headaches. Further workup was obtained with MRI brain. Once completed this confirmed an intracranial mass suspected to be a meningioma in the subfrontal area. Recommendation was to undergo surgical resection. She and her family agreed and this was completed as noted above. She did well following surgery and was cleared for discharge home with a short course of Keppra and a Decadron taper. Recommendation was to follow-up in 2 weeks for a routine postop evaluation and suture removal. She was last seen in the office on 03/22/2025 and reported that she was doing well since discharge. She denied any significant headache, visual changes, speech deficits, seizure activity, motor or sensory deficits. She felt that her sense of smell and hearing was heightened since surgery. Recommendation was to follow up in 2 weeks for a routine post op evaluation, prompting her visit today. Since last visit she states she is overall doing well. She reports writing her numbers backwards at times but she catches herself. She has mild tenderness to the incision site. Otherwise she denies any other concerns. She presents for evaluation and plan of care. 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 No pertinent family history. ALLERGIES Allergen Reactions Erythromycin Itching, Swelling Sulfa (Sulfonamide * Hives Genta-Gel Swelling Current Outpatient Medications Medication Sig Dispense Refill Echinacea 400 mg cap Take 400 mg by mouth once daily. ASCORBIC ACID-BIOFLAVONOIDS ORAL Take 100 mg by mouth once daily. C-100 with 10 mg Bioflavonoids 2 pill qday multivit with calcium,iron,min (WOMEN'S MULTIPLE VITAMINS ORAL) Take 1 tablet by mouth once daily. Active Woman's Multi with Soy, Lutein, Black Cohosh and Cranberry escitalopram oxalate (LEXAPRO) 20 mg tablet Take 20 mg by mouth once daily. triamterene/hydrochlorothiazid (DYAZIDE ORAL) Take 0.5 mg by mouth once daily. metoprolol succinate ER (TOPROL XL) 50 mg 24 hr tablet Take 50 mg by mouth two times a day. omeprazole (PRILOSEC) 20 mg capsule Take 20 mg by mouth two times a day. brexpiprazole (REXULTI) 2 mg tablet Take 2 mg by mouth once daily. clonazePAM (KLONOPIN) 2 mg tablet Take 1 mg by mouth at bedtime as needed for anxiety. Take 1 to 2 mg rosuvastatin (CRESTOR) 10 mg tablet Take 10 mg by mouth daily at bedtime. valACYclovir (VALTREX) 500 mg tablet Take 500 mg by mouth once daily. iv contrast (will be provided with radiology test) MRI Brain Inject, intravenously, once for 1 dose.No IV access, insert saline lock prior to beginning of sedation, infusion, injection of imaging exam.Discontinue saline lock post exam. If Pt. has a central line or IVAD, may access for administration according to line specific nursing protocol.Once exam is complete flush line and de-access according to line specific nursing protocol in the MR contrast administration guidelines link 1 each 0 No current facility-administered medications for this visit. Review of Systems Constitutional: Negative for chills, diaphoresis (Negative for night sweats.) and fever. HENT: Negative for ear discharge and rhinorrhea. Eyes: Negative for discharge. Respiratory: Negative for cough, shortness of breath and wheezing. Cardiovascular: Negative for chest pain, palpitations and leg swelling. Gastrointestinal: Negative for constipation, diarrhea, nausea and vomiting. Endocrine: Negative for cold intolerance and heat intolerance. Genitourinary: Negative for frequency. Negative for urinary incontinence and urinary retention. Musculoskeletal: Negative for back pain, joint swelling, myalgias and neck pain. Skin: Negative for rash (Negative for hives and skin lesions.). Allergic/Immunologic: Negative for environmental allergies and food allergies. Negative for contact allergy, seasonal allergies. Neurological: Negative for dizziness, seizures, syncope, weakness, light-headedness, numbness (Negative for numbness in extremities.) and headaches. Hematological: Does not bruise/bleed easily. Psychiatric/Behavioral: The patient is not nervous/anxious. Negative for depression. PAIN EVALUATION No data found in the last 1 encounters. BP 104/54 (BP Site: Left Arm, BP Position: Sitting, BP Cuff Size: Extra Large Adult) Pulse 68 Ht 5' 2 (1.575 m) Wt 200 lb 13.4 oz (91.1 kg) SpO2 98% BMI 36.73 kg/m PHYSICAL EXAM: Mental State : Alert. Attention span and concentration normal for patient's age. Speech normal, fluent. No receptive or expressive speech deficit. Recent and remote memory normal. Orientation : Oriented to person, place and time. Higher Cortical Function : Intact speech and language. Comprehension normal. Fund of knowledge intact for pt level of education. Cranial Nerves : II: No visual field cut, no blurring. Makes and sustains eye contact. III, IV, : No double vision or lid drooping. Pupils equal and reactive to light. Extraocular muscles intact. No nystagmus. V: Normal sensation on the face, normal jaw movements. VII: No paresis on either side. VIII: No gross hearing deficit IX: Good and equal shoulder shrugs. XII: Tongue midline, no fasciculations. Sensory: SILT. Normal Sensation in bilateral upper and bilateral lower extremities to touch and noxious stimuli. Motor: Normal muscle tone and bulk. No spasticity, tremor or uncontrollable movements. Strength: Upper Extremities : R L Deltoid 5/5 5/5 Biceps 5/5 5/5 Triceps 5/5 5/5 Wrist Ext 5/5 5/5 Wrist Flx 5/5 5/5 Hand Int 5/5 5/5 Lower Extremities : Hip Flexors 5/5 5/5 Hip Extensors 5/5 5/5 Hip Abductors 5/5 5/5 Straight leg Neg Neg Ankle dorsiflex 5/5 5/5 Ankle Plantar 5/5 5/5 Cerebellar Function : Normal finger to nose. Normal rapid alternating movements. No ataxia. Gait and Station: Normal gait. No assistive device usage. IMAGING: No new imaging ASSESSMENT/PLAN: 1. Intracranial meningioma (HCC) - ICD9: 225.2, ICD10: D32.0 Patient with grade 1 meningioma who is here for a follow-up visit second postoperative visit. She is doing well. She has excellent sense of smell. She has no headache or dizziness. She has some subtle difficulties with writing although she is right-handed. The incision site is well-healed. No focal deficit was noted. I recommended a follow-up visit in 1 month with an MRI scan as a baseline postop. I anticipate return to work June 2025. - MRI BRAIN WO/W IVCON - IV CONTRAST (RADIOLOGY PROCEDURE) - NOT ON MAR Fabrizio Ambrocio MD FOLLOW UP: Return in about 1 month (around 05/10/2025) for review of MRI. Please Note: This note has been partially generated using [employer]m, a speech recognition software program, and may contain errors including punctuation, grammar, spelling, gender, and inappropriate words or phrases that pertain to the system. documented in this encounter [facility] 04-09-2025 Note HNO ID: [id number] Author: FABRIZIO AMBROCIO MD Service: ? Author Type: Physician Type: Progress Notes Filed: 04/09/2025 10:19 Note Text: NEUROSURGERY POST OP NOTE Dr. Fabrizio Ambrocio MD, [facility] Date of visit: April 09, 2025 Patient Name: Ms.Connie Cira Patton Date of : 1970 Current Age: [age] year old MRN/E# [id number] Last Office Visit: 03/22/2025 CHIEF COMPLAINT: Patient presents with: Post Op SURGERY: Right frontal craniotomy for tumor excision on 03/06/[address] Ambrocio and Dr. Cobos. FINAL DIAGNOSIS A and B. Brain tumor, resection: - Meningioma, transitional type, WHO Grade 1. See comment. Comments: AMENDED REPORT DETAIL Amended: 03/14/2025 8:13 AM This report is being amended to reflect a change in the diagnostic field. The original report did not include both parts A and B, which has been corrected. There is no change to the actual diagnosis. Dr. Ambrocio was notified of this change by Start[employer] message on 03/14/2025. PRE-SURGICAL SYMPTOMS: Cognitive difficulty, blurry vision, mood swings, frontal headache, decree sense of smell INCISION: Healing - without signs or symptoms of infection. Small piece of suture under the skin- no infection or opening. HISTORY OF PRESENT ILLNESS : The patient presents for a 1 month post operative visit.. This is a 54-year-old female with a PMHx of thyroid disease, obesity, anxiety who was seen at [facility] for consult on 03/01/2025. Patient stated that she was having neck swelling so she saw her provider who ordered a CT thyroid. Once completed this showed a brain mass and she was advised to present to the ED. She reported a 6-month history of difficulty with cognition, blurry vision, decreased sense of smell and frontal headaches. Further workup was obtained with MRI brain. Once completed this confirmed an intracranial mass suspected to be a meningioma in the subfrontal area. Recommendation was to undergo surgical resection. She and her family agreed and this was completed as noted above. She did well following surgery and was cleared for discharge home with a short course of Keppra and a Decadron taper. Recommendation was to follow-up in 2 weeks for a routine postop evaluation and suture removal. She was last seen in the office on 03/22/2025 and reported that she was doing well since discharge. She denied any significant headache, visual changes, speech deficits, seizure activity, motor or sensory deficits. She felt that her sense of smell and hearing was heightened since surgery. Recommendation was to follow up in 2 weeks for a routine post op evaluation, prompting her visit today. Since last visit she states she is overall doing well. She reports writing her numbers backwards at times but she catches herself. She has mild tenderness to the incision site. Otherwise she denies any other concerns. She presents for evaluation and plan of care. 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 No pertinent family history. ALLERGIES Allergen Reactions Erythromycin Itching, Swelling Sulfa (Sulfonamide * Hives Genta-Gel Swelling Current Outpatient Medications Medication Sig Dispense Refill Echinacea 400 mg cap Take 400 mg by mouth once daily. ASCORBIC ACID-BIOFLAVONOIDS ORAL Take 100 mg by mouth once daily. C-100 with 10 mg Bioflavonoids 2 pill qday multivit with calcium,iron,min (WOMEN'S MULTIPLE VITAMINS ORAL) Take 1 tablet by mouth once daily. Active Woman's Multi with Soy, Lutein, Black Cohosh and Cranberry escitalopram oxalate (LEXAPRO) 20 mg tablet Take 20 mg by mouth once daily. triamterene/hydrochlorothiazid (DYAZIDE ORAL) Take 0.5 mg by mouth once daily. metoprolol succinate ER (TOPROL XL) 50 mg 24 hr tablet Take 50 mg by mouth two times a day. omeprazole (PRILOSEC) 20 mg capsule Take 20 mg by mouth two times a day. brexpiprazole (REXULTI) 2 mg tablet Take 2 mg by mouth once daily. clonazePAM (KLONOPIN) 2 mg tablet Take 1 mg by mouth at bedtime as needed for anxiety. Take 1 to 2 mg rosuvastatin (CRESTOR) 10 mg tablet Take 10 mg by mouth daily at bedtime. valACYclovir (VALTREX) 500 mg tablet Take 500 mg by mouth once daily. iv contrast (will be provided with radiology test) MRI Brain Inject, intravenously, once for 1 dose.No IV access, insert saline lock prior to beginning of sedation, infusion, injection of imaging exam.Discontinue saline lock post exam. If Pt. has a central line or IVAD, may acces (more content not included)... [facility] 03-22-2025 History of Present illness Narrative NEUROSURGERY POST OP NOTE Dr. Fabrizio Ambrocio MD, FACS Date of visit: March 22, 2025 Patient Name: Ms.Connie Cira Patton Date of : 1970 Current Age: [age] year old MRN/E# [id number] Last Office Visit: Postop CHIEF COMPLAINT: Patient presents with: Established Patient SURGERY: Right frontal craniotomy for tumor excision on 03/06/[address] Ambrocio and Dr. Cobos. AMENDED REPORT DETAIL Amended: 03/14/2025 8:13 AM This report is being amended to reflect a change in the diagnostic field. The original report did not include both parts A and B, which has been corrected. There is no change to the actual diagnosis. Dr. Ambrocio was notified of this change by StartX message on 03/14/2025. PRE-SURGICAL SYMPTOMS: Cognitive difficulty, blurry vision, mood swings, frontal headache, decree sense of smell INCISION: HELEN with sutures. No S/S of infection noted. Slight subgaleal fluid noted. Sutures removed without an issue. HISTORY OF PRESENT ILLNESS : The patient presents for a post operative visit. This is a 54-year-old female with a PMHx of thyroid disease, obesity, anxiety who was seen at [facility] for consult on 03/01/2025. Patient stated that she was having neck swelling so she saw her provider who ordered a CT thyroid. Once completed this showed a brain mass and she was advised to present to the ED. She reported a 6-month history of difficulty with cognition, blurry vision, decreased sense of smell and frontal headaches. Further workup was obtained with MRI brain. Once completed this confirmed an intracranial mass suspected to be a meningioma in the subfrontal area. Recommendation was to undergo surgical resection. She and her family agreed and this was completed as noted above. She did well following surgery and was cleared for discharge home with a short course of Keppra and a Decadron taper. Recommendation was to follow-up in 2 weeks for a routine postop evaluation and suture removal prompting her visit today. Since discharge she states she is overall doing well. She denies significant headache, visual changes, speech deficits, seizure activity, motor or sensory deficits. Feels her sense of smell and hearing is heightened since surgery. She presents for evaluation and plan of care. 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 No pertinent family history. ALLERGIES Allergen Reactions Erythromycin Itching, Swelling Sulfa (Sulfonamide * Hives Genta-Gel Swelling Current Outpatient Medications Medication Sig Dispense Refill levETIRAcetam (KEPPRA) 500 mg tablet Take 1 tablet by mouth two times a day for 12 days. 24 tablet 0 Echinacea 400 mg cap Take 400 mg by mouth once daily. ASCORBIC ACID-BIOFLAVONOIDS ORAL Take 100 mg by mouth once daily. C-100 with 10 mg Bioflavonoids 2 pill qday multivit with calcium,iron,min (WOMEN'S MULTIPLE VITAMINS ORAL) Take 1 tablet by mouth once daily. Active Woman's Multi with Soy, Lutein, Black Cohosh and Cranberry escitalopram oxalate (LEXAPRO) 20 mg tablet Take 20 mg by mouth once daily. triamterene/hydrochlorothiazid (DYAZIDE ORAL) Take 0.5 mg by mouth once daily. metoprolol succinate ER (TOPROL XL) 50 mg 24 hr tablet Take 50 mg by mouth two times a day. omeprazole (PRILOSEC) 20 mg capsule Take 20 mg by mouth two times a day. brexpiprazole (REXULTI) 2 mg tablet Take 2 mg by mouth once daily. clonazePAM (KLONOPIN) 2 mg tablet Take 1 mg by mouth at bedtime as needed for anxiety. Take 1 to 2 mg rosuvastatin (CRESTOR) 10 mg tablet Take 10 mg by mouth daily at bedtime. valACYclovir (VALTREX) 500 mg tablet Take 500 mg by mouth once daily. No current facility-administered medications for this visit. Review of Systems Constitutional: Negative for chills, diaphoresis (Negative for night sweats.) and fever. HENT: Negative for ear discharge and rhinorrhea. Eyes: Negative for discharge. Respiratory: Negative for cough, shortness of breath and wheezing. Cardiovascular: Negative for chest pain, palpitations and leg swelling. Gastrointestinal: Negative for constipation, diarrhea, nausea and vomiting. Endocrine: Negative for cold intolerance and heat intolerance. Genitourinary: Negative for frequency. Negative for urinary incontinence and urinary retention. Musculoskeletal: Negative for back pain, joint swelling, myalgias and neck pain. Skin: Negative for rash (Negative for hives and skin lesions.). Allergic/Immunologic: Negative for environmental allergies and food allergies. Negative for contact allergy, seasonal allergies. Neurological: Negative for dizziness, seizures, syncope, weakness, light-headedness, numbness (Negative for numbness in extremities.) and headaches. Hematological: Does not bruise/bleed easily. Psychiatric/Behavioral: The patient is not nervous/anxious. Negative for depression. PAIN EVALUATION 03/22/2025 0943 Pain Level: 8 Pain Location: Head Description: Aching;Throbbing;Sore Duration Units: Unknown Frequency: Continuous Comments: c/o pain and swelling BP 106/75 Pulse 108 Resp 16 Ht 5' 2 (1.575 m) Wt 203 lb (92.1 kg) SpO2 98% BMI 37.13 kg/m PHYSICAL EXAM: Mental State : Alert. Attention span and concentration normal for patient's age. Speech normal, fluent. No receptive or expressive speech deficit. Recent and remote memory normal. Orientation : Oriented to person, place and time. Higher Cortical Function : Intact speech and language. Comprehension normal. Fund of knowledge intact for pt level of education. Cranial Nerves : II: No visual field cut, no blurring. Makes and sustains eye contact. III, IV, : No double vision or lid drooping. Pupils equal and reactive to light. Extraocular muscles intact. No nystagmus. V: Normal sensation on the face, normal jaw movements. VII: No paresis on either side. VIII: No gross hearing deficit IX: Good and equal shoulder shrugs. XII: Tongue midline, no fasciculations. Sensory: SILT. Normal Sensation in bilateral upper and bilateral lower extremities to touch and noxious stimuli. Motor: Normal muscle tone and bulk. No spasticity, tremor or uncontrollable movements. Strength: Upper Extremities : R L Deltoid 5/5 5/5 Biceps 5/5 5/5 Triceps 5/5 5/5 Wrist Ext 5/5 5/5 Wrist Flx 5/5 5/5 Hand Int 5/5 5/5 Lower Extremities : Hip Flexors 5/5 5/5 Hip Extensors 5/5 5/5 Hip Abductors 5/5 5/5 Straight leg Neg Neg Ankle dorsiflex 5/5 5/5 Ankle Plantar 5/5 5/5 Cerebellar Function : Normal finger to nose. Normal rapid alternating movements. No ataxia. Negative Romberg. Gait and Station: Normal gait. No assistive device usage. IMAGING: No new imaging ASSESSMENT/PLAN: 1. Intracranial meningioma (HCC) - ICD9: 225.2, ICD10: D32.0 This is a postoperative visit of this patient who had an olfactory groove subfrontal meningioma and underwent surgery 3 weeks ago and is here for evaluation and suture removal. Incision is well-healed sutures are out there is no dehiscence or infection. There is some fluid accumulation under the flap. She is awake alert with no focal deficit. She reports that her sense of smell is excellent. We recommended follow-up visit in 2 to 3 weeks. She will be off work during this time until we reevaluate her. The pathological diagnosis is grade 1 meningioma with no evidence of atypia. Fabrizio Ambrocio MD FOLLOW UP: Return in about 2 weeks (around 04/05/2025) for post-op. Please Note: This note has been partially generated using [employer]m, a speech recognition software program, and may contain errors including punctuation, grammar, spelling, gender, and inappropriate words or phrases that pertain to the system. documented in this encounter [facility] 03-22-2025 Note HNO ID: [id number] Author: FABRIZIO AMBROCIO MD Service: ? Author Type: Physician Type: Progress Notes Filed: 03/22/2025 10:21 Note Text: NEUROSURGERY POST OP NOTE Dr. Fabrizio Ambrocio MD, [facility] Date of visit: March 22, 2025 Patient Name: Ms.Connie Cira Patton Date of : 1970 Current Age: [age] year old MRN/E# [id number] Last Office Visit: Postop CHIEF COMPLAINT: Patient presents with: Established Patient SURGERY: Right frontal craniotomy for tumor excision on 03/06/[address] Ambrocio and Dr. Cobos. AMENDED REPORT DETAIL Amended: 03/14/2025 8:13 AM This report is being amended to reflect a change in the diagnostic field. The original report did not include both parts A and B, which has been corrected. There is no change to the actual diagnosis. Dr. Ambrocio was notified of this change by [employer] message on 03/14/2025. 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 No S/S of infection noted. Slight subgaleal fluid noted. Sutures removed without an issue. HISTORY OF PRESENT ILLNESS : The patient presents for a post operative visit. This is a 54-year-old female with a PMHx of thyroid disease, obesity, anxiety who was seen at [facility] for consult on 03/01/2025. Patient stated that she was having neck swelling so she saw her provider who ordered a CT thyroid. Once completed this showed a brain mass and she was advised to present to the ED. She reported a 6-month history of difficulty with cognition, blurry vision, decreased sense of smell and frontal headaches. Further workup was obtained with MRI brain. Once completed this confirmed an intracranial mass suspected to be a meningioma in the subfrontal area. Recommendation was to undergo surgical resection. She and her family agreed and this was completed as noted above. She did well following surgery and was cleared for discharge home with a short course of Keppra and a Decadron taper. Recommendation was to follow-up in 2 weeks for a routine postop evaluation and suture removal prompting her visit today. Since discharge she states she is overall doing well. She denies significant headache, visual changes, speech deficits, seizure activity, motor or sensory deficits. Feels her sense of smell and hearing is heightened since surgery. She presents for evaluation and plan of care. 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 No pertinent family history. ALLERGIES Allergen Reactions Erythromycin Itching, Swelling Sulfa (Sulfonamide * Hives Genta-Gel Swelling Current Outpatient Medications Medication Sig Dispense Refill levETIRAcetam (KEPPRA) 500 mg tablet Take 1 tablet by mouth two times a day for 12 days. 24 tablet 0 Echinacea 400 mg cap Take 400 mg by mouth once daily. ASCORBIC ACID-BIOFLAVONOIDS ORAL Take 100 mg by mouth once daily. C-100 with 10 mg Bioflavonoids 2 pill qday multivit with calcium,iron,min (WOMEN'S MULTIPLE VITAMINS ORAL) Take 1 tablet by mouth once daily. Active Woman's Multi with Soy, Lutein, Black Cohosh and Cranberry escitalopram oxalate (LEXAPRO) 20 mg tablet Take 20 mg by mouth once daily. triamterene/hydrochlorothiazid (DYAZIDE ORAL) Take 0.5 mg by mouth once daily. metoprolol succinate ER (TOPROL XL) 50 mg 24 hr tablet Take 50 mg by mouth two times a day. omeprazole (PRILOSEC) 20 mg capsule Take 20 mg by mouth two times a day. brexpiprazole (REXULTI) 2 mg tablet Take 2 mg by mouth once daily. clonazePAM (KLONOPIN) 2 mg tablet Take 1 mg by mouth at bedtime as needed for anxiety. Take 1 to 2 mg rosuvastatin (CRESTOR) 10 mg tablet Take 10 mg by mouth daily at bedtime. valACYclovir (VALTREX) 500 mg tablet Take 500 mg by mouth once daily. No current facility-administered medications for this visit. Review of Systems Constitutional: Negative for chills, diaphoresis (Negative for night sweats.) and fever. HENT: Negative for ear discharge and rhinorrhea. Eyes: Negative for discharge. Respiratory: Negative for cough, shortness of breath and wheezing. Cardiovascular: Negative for chest pain, palpitations and leg swelling. Gastrointestinal: Negative for constipation, diarrhea, nausea and vomiting. Endocrine: Negative for cold intolerance and heat intolerance. Genitourinary: Negative for frequency. Negative for urinary incontinence and urinary retention. Musculoskeletal: Negative for back pain, joint swelling, myalgias and neck (more content not included)... [facility] 03-09-2025 Note HNO ID: [id number] Author: KEIKO FOOTE APRN.CNP Service: Psychiatry Author Type: Nurse Practitioner Type: Plan of Care Filed: 03/09/2025 11:34 Note Text: Psychiatry consultation provider came to visit with the patient, who is cleared for discharge and has already received discharge teaching and instructions. Patient states she is doing well and is not in need of psychiatric consultation prior to leaving the hospital. She denies any thoughts of harming herself or others. She denies any current symptoms of psychosis, and there are no obvious signs of this. [facility] 03-09-2025 Note HNO ID: [id number] Author: KATLYN FRANCOIS RN Service: Care Management Author Type: Registered Nurse Type: Care Mgt Progress Note Filed: 03/09/2025 09:33 Note Text: CARE MANAGEMENT DISCHARGE NOTE SERVICE DATE: March 09, 2025 SERVICE TIME: 9:31 AM Admission Date: 03/01/2025 LOS: 8 days Discharge Arrangement Discharge Arrangement: Home with Relative Services Arranged Medical Services: Other: See Comment (none) Caregiver Assessment Caregiver is ready, willing and able to meet the patient's needs as recommended by the inter-professional team: No Caregiver needed Transportation Arrangements Transportation Arrangements: Car Date of Trip: 03/09/25 Destination: Home Handoff Communication: Handoff to: Primary Care Physician Primary Care Physician Name/Phone: Mati Augustine, General - Family Medicine [phone] Additional Information: Dc held yesterday for pain control. Plan is Dc home today. No Skilled or CM needs. Family to provide transport. SIGNATURE: Katlyn Francois RN PATIENT NAME: Sierra Patton DATE: March 09, 2025 TIME: 9:31 AM [facility] 03-09-2025 Note HNO ID: [id number] Author: ALIYA REZA APRN.CNP Service: Neurosurgery Author Type: Nurse Practitioner Type: Progress Notes Filed: 03/09/2025 08:50 Note Text: Neurosurgery Progress Note SERVICE DATE: 03/09/2025 SUBJECTIVE: NAEON. Feeling much better today. Pain improved. Feels that swelling is going down. OBJECTIVE: Vitals: Temp (24hrs), Av.9 ?C (98.5 ?F), Min:36.7 ?C (98 ?F), Max:37.5 ?C (99.5 ?F) BP 103/60 Pulse 77 Temp 36.7 ?C (98.1 ?F) (Oral) Resp 19 Ht 157.5 cm (5' 2) Wt 92.3 kg (203 lb 7.8 oz) SpO2 93% BMI 37.22 kg/m? O2 Therapy: Room Air IANDO: Date 03/08/25699 - 03/09/2559 03/09/25 07 - 03/10/25 0659 Shift 3972-7703 1615-4694 4714-7684 24 Hour Total 3517-9239 9142-1869 6025-7269 24 Hour Total INTAKE PO 240 240 PO 240 240 Shift Total 240 240 OUTPUT Urine Urine Not Saved. 2 x 2 x 4 x # of BMs Number of BMs 1 x 1 x Shift Total Weight (kg) 92.3 92.3 92.3 92.3 92.3 92.3 92.3 92.3 Medications: Current Facility-Administered Medications Medication Dose Route Frequency heparin 5,000 Units injection 5,000 Units SUBCUTANEOUS q 8 H dexAMETHasone 2 mg tab(s) (DECADRON) 2 mg ORAL BID w MEALS polyethylene glycol 3350 17 g packet 17 g ORAL DAILY PRN acetaminophen 1,000 mg tab(s) (TYLENOL) 1,000 mg ORAL q 6 H ondansetron 4 mg tab(s) (ZOFRAN) 4 mg ORAL q 6 H PRN Or ondansetron (PF) 4 mg injection (ZOFRAN) 4 mg INTRAVENOUS q 6 H PRN bisacodyl 10 mg suppository (DULCOLAX) 10 mg RECTAL DAILY PRN hydrALAZINE 10 mg injection (APRESOLINE) 10 mg INTRAVENOUS q 6 H PRN senna-docusate 8.6-50 mg 1 tablet (SENNA-S) 1 tablet ORAL BID nicotine 14 mg/24 hr 1 patch (NICODERM) 1 patch TRANSDERMAL DAILY And nicotine -- REMOVE patch OTHER DAILY And nicotine - verify patch OTHER q 8 H clonazePAM 1 mg tab(s) (KlonoPIN) 1 mg ORAL q 12 H PRN brexpiprazole 2 mg tab(s) (REXULTI) 2 mg ORAL DAILY escitalopram oxalate 20 mg tab(s) (LEXAPRO) 20 mg ORAL DAILY metoprolol succinate ER 50 mg tab(s) (TOPROL XL) 50 mg ORAL BID rosuvastatin 10 mg tab(s) (CRESTOR) 10 mg ORAL AT BEDTIME NaCl 0.9% iv flush bag 20 mL INTRAVENOUS PRN pantoprazole DR 20 mg tab(s) (PROTONIX) 20 mg ORAL BID AC (0600/1600) levETIRAcetam 500 mg tab(s) (KEPPRA) 500 mg ORAL BID Labs: Recent Labs 03/07/25 0217 03/06/25 1724 NA 140 140 K 3.6* 3.7 CHLOR 100 98 CO2 27 30 BUN 28* 28* CREAT 0.93 1.03* GLUC 152* 114* ANION 13 12 CA 8.4* 8.8 MG 2.2 2.0 P 4.5 6.8* WBC 19.81* 20.37* HB 10.6* 11.2* HCT 32.4* 33.7* PLT 320 353 Exam: GENERAL: No distress, Alert NEURO: GCS 15 speech clear, fluent. Strength 5/5 all extremities. No drift. No facial droop. Tongue midline HEENT: incision c/d/i LUNGS: Unlabored breathing CARDIAC: Regular rate and rhythm as above ABDOMEN: Soft, non-tender, non-distended EXTREMITIES: VAZQUEZ, No deformities, No edema SKIN: Skin color, texture, turgor normal, No rashes or lesions ASSESSMENT AND PLAN: Active Hospital Problems Diagnosis Date Noted Brain mass 03/01/2025 Obesity, Class II, BMI 35-39.9 03/06/2025 CLAUDETTE (acute kidney injury) 03/06/2025 Hypertension, essential 07/05/2017 Hyperlipidemia, mixed 07/05/2017 Sierra Patton is a 54 year old female who presented with headaches and subjective vision and smelling issues 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 All relevant information was reviewed and updated accordingly on 03/09/2025 SIGNATURE: Aliya Reza APRN.CNP PATIENT NAME: Sierra Patton DATE: March 09, 2025 TIME: 8:48 AM Pager: [phone] [facility] 03-08-2025 Note HNO ID: [id number] Author: AXEL FITZPATRICK LISW Service: Care Management Author Type: Party Plan Sales Director Type: Care Mgt Progress Note Filed: 03/08/2025 13:02 Note Text: CARE MANAGEMENT DISCHARGE NOTE SERVICE DATE: March 08, 2025 SERVICE TIME: 1:01 PM Admission Date: 03/01/2025 LOS: 7 days Discharge Arrangement Discharge Arrangement: Home with Relative Services Arranged Medical Services: Other: See Comment (none) Provider Name: N/A Phone: N/A Caregiver Assessment Caregiver is ready, willing and able to meet the patient's needs as recommended by the inter-professional team: No Caregiver needed Transportation Arrangements Transportation Arrangements: Car Date of Trip: 03/08/25 Destination: Home Handoff Communication: Handoff to: Primary Care Physician Primary Care Physician Name/Phone: Dr. Mati Augustine Additional Information: none Discharge home by car with family. Self Care. SIGNATURE: ROSALES Yanez PATIENT NAME: Sierra Patton DATE: March 08, 2025 TIME: 1:01 PM [facility] 03-07-2025 Note HNO ID: [id number] Author: KATLYN FRANCOIS RN Service: Care Management Author Type: Registered Nurse Type: Care Mgt Progress Note Filed: 03/07/2025 12:33 Note Text: CARE MANAGEMENT PROGRESS NOTE SERVICE DATE: 03/07/2025 SERVICE TIME: 12:31 PM LOS: 6 days Needs Prior to Discharge: (medical clearance.) Patient is s/p craniotomy for tumor resection 03/06. Therapy recommends home, no skilled needs. NSGY following. Plan is to return home. Family to provide transport at [place]. CM to continue to follow. SIGNATURE: Katlyn Francois RN PATIENT NAME: Sierra Patton DATE: March 07, 2025 TIME: 12:31 PM [facility] 03-07-2025 Note HNO ID: [id number] Author: ALIYA REZA APRN.CNP Service: Neurosurgery Author Type: Nurse Practitioner Type: Progress Notes Filed: 03/07/2025 05:41 Note Text: Neurosurgery Progress Note SERVICE DATE: 03/07/2025 SUBJECTIVE: NAEON. Didn't sleep well, couldn't get comfortable. Incisional pain and discomfort typical for post operative course. States she has had no episodes of vision issues post operatively. OBJECTIVE: Vitals: Temp (24hrs), Av.6 ?C (97.9 ?F), Min:36.2 ?C (97.2 ?F), Max:37 ?C (98.6 ?F) BP 106/63 Pulse 75 Temp 36.4 ?C (97.5 ?F) (Temporal) Resp 18 Ht 157.5 cm (5' 2) Wt 92.3 kg (203 lb 7.8 oz) SpO2 94% BMI 37.22 kg/m? O2 Therapy: Room Air IANDO: Date 03/06/25699 - 03/07/2565803/07/25699 - 03/08/25 0659 Shift 8503-2179 0806-3834 8532-5583 24 Hour Total 2374-9433 9565-7335 1765-1769 24 Hour Total INTAKE IV 2200 9795 137 5170 Volume (mL) (ceFAZolin iv piggyback 2 g in D5W (iso-osmotic) 100 mL (ANCEF)) 100 100 Volume (mL) (levETIRAcetam 500 mg in NaCl 0.9% 100 mL (KEPPRA)) 100 100 Volume (mL) (lactated ringers iv infusion) 3087 856 7824 Volume (mL) (lactated ringers iv infusion) 9193 709 1302 Volume (mL) (lactated ringers iv infusion) 250 451 701 Shift Total 2200 1277 753 4993 OUTPUT Urine 2600 839 329 5121 OR Urine Output 2600 150 2750 Output ( Indwelling Urinary Catheter 03/06/25 1000 Rucker 16 Fr) 475 325 800 Blood 50 50 Estimated Blood loss 50 50 Shift Total 2650 643 182 9156 Weight (kg) 90.3 90.3 92.3 92.3 92.3 92.3 92.3 92.3 Medications: Current Facility-Administered Medications Medication Dose Route Frequency NaCl 0.9% iv infusion 75 mL/hr INTRAVENOUS CONTINUOUS potassium chloride ER 20-40 mEq tab(s) (KLOR-CON) 20-40 mEq ORAL/FEEDING TUBE PRN Or potassium chloride iv piggyback 20 mEq/100 mL 20 mEq INTRAVENOUS PRN phosphorus 500 mg tab(s) (K PHOS NEUTRAL) 500 mg ORAL/FEEDING TUBE PRN(NO DISPENSE) calcium gluconate iv piggyback 2 g in NaCl (iso-osmotic) 100 mL 2 g INTRAVENOUS PRN(NO DISPENSE) ondansetron 4 mg tab(s) (ZOFRAN) 4 mg ORAL q 6 H PRN Or ondansetron (PF) 4 mg injection (ZOFRAN) 4 mg INTRAVENOUS q 6 H PRN bisacodyl 10 mg suppository (DULCOLAX) 10 mg RECTAL DAILY PRN fentaNYL 50 mcg/mL 50 mcg injection (SUBLIMAZE) 50 mcg INTRAVENOUS q 2 H PRN niCARdipine iv infusion 40 mg in NaCl (iso-osmotic) 200 mL (CARDENE) 2.5-15 mg/hr INTRAVENOUS CONTINUOUS hydrALAZINE 10 mg injection (APRESOLINE) 10 mg INTRAVENOUS q 6 H PRN senna-docusate 8.6-50 mg 1 tablet (SENNA-S) 1 tablet ORAL BID [Transfer Hold] morphine 2 mg injection 2 mg INTRAVENOUS q 4 H PRN oxyCODONE IR 5 mg tab(s) (ROXICODONE) 5 mg ORAL q 4 H PRN dexAMETHasone 4 mg tab(s) (DECADRON) 4 mg ORAL q 6 H nicotine 14 mg/24 hr 1 patch (NICODERM) 1 patch TRANSDERMAL DAILY And nicotine -- REMOVE patch OTHER DAILY And nicotine - verify patch OTHER q 8 H clonazePAM 1 mg tab(s) (KlonoPIN) 1 mg ORAL q 12 H PRN acetaminophen 325-650 mg tab(s) (TYLENOL) 325-650 mg ORAL q 6 H PRN brexpiprazole 2 mg tab(s) (REXULTI) 2 mg ORAL DAILY escitalopram oxalate 20 mg tab(s) (LEXAPRO) 20 mg ORAL DAILY metoprolol succinate ER 50 mg tab(s) (TOPROL XL) 50 mg ORAL BID rosuvastatin 10 mg tab(s) (CRESTOR) 10 mg ORAL AT BEDTIME NaCl 0.9% iv flush bag 20 mL INTRAVENOUS PRN [Transfer Hold] ondansetron (PF) 4 mg injection (ZOFRAN) 4 mg INTRAVENOUS q [address] 20 mg tab(s) (PROTONIX) 20 mg ORAL BID AC (0600/1600) levETIRAcetam 500 mg tab(s) (KEPPRA) 500 mg ORAL BID Labs: Recent Labs 03/07/25 0217 03/06/25 1724 03/05/25 2136 NA 140 140 -- K 3.6* 3.7 -- CHLOR 100 98 -- CO2 27 30 -- BUN 28* 28* -- CREAT 0.93 1.03* -- GLUC 152* 114* -- ANION 13 12 -- CA 8.4* 8.8 -- MG 2.2 2.0 -- P 4.5 6.8* -- WBC 19.81* 20.37* -- HB 10.6* 11.2* -- HCT 32.4* 33.7* -- PLT 320 353 -- INR -- -- 1.0 Imaging: CT BRAIN WO 03/06/2025 6:04 PM - Radiology, Oru In Impression IMPRESSION: Brain CT shows interval postsurgical changes related to resection of 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 Some tanya-resectional/prior perilesional frontal parenchymal changes as above. Other details above. Exam: GENERAL: No distress, Alert NEURO: GCS 15 speech clear, fluent. HEENT: dressing c/d/i LUNGS: Unlabored breathing CARDIAC: Regular rate and rhythm as above ABDOMEN: Soft, non-tender, non-distended EXTREMITIES: VAZQUEZ, No deformities, No edema SKIN: Skin color, texture, turgor normal, No rashes or lesions ASSESSMENT AND PLAN: Active Hospital Problems Diagnosis Date Noted Brain mass 03/01/2025 Obesity, Class II, BMI 35-39.9 03/06/2025 CLAUDETTE (acute kidney injury) 03/06/2025 Hypertension, essential 07/05/2017 Hyperlipidemia, mixed 07/05/2017 Sierra Patton is a 54 year old f (more content not included)... [facility] 03-06-2025 Note HNO ID: [id number] Author: SILVIA MTZ PA-C Service: Neurosurgery Author Type: Physician Supervisor [employer] Type: Plan of Care Filed: 03/06/2025 17:39 Note Text: Post Operative Note Date of procedure: March 06, 2025 Subjective: Patient recovering post-op. She reports moderate post-op incisional pain and headache along the front of the head. She denies acute changes in vision, difficulty with speech or swallowing, or paresthesias. Exam: GENERAL: Awake and alert; NAD NEURO: Orientedx3; speech clear and fluent; VAZQUEZ; no apparent arm drift STRENGTH: 5/5 throughout HEENT: Incision C/D/I- minimal bloody drainage from pin hole site; perrl/eomi; no apparent facial droop LUNGS: Unlabored breathing CARDIAC: Rate and rhythm as above EXTREMITIES: No deformities, No edema SKIN: Skin color normal; Temperature normal; no rashes or lesions Post operative plan: -Consult to NSICU for medical management -Post-op CTH pending -ok for Regular diet -Neurovascular checks q1hr -Continue post-op pain control and bowel regimen -D/C rucker in the morning -Hourly IS -Post-op PT/OT evals in am -SCDs for DVT ppx; may consider starting chem DVT ppx 48hrs post-op SIGNATURE: Silvia Mtz PA-C PATIENT NAME: Sierra Patton DATE: March 06, 2025 TIME: 5:35 PM Pager: [phone] [facility] 03-06-2025 Note HNO ID: [id number] Author: NATTY PATEL MD Service: Hospital Medicine Author Type: Physician Type: Plan of Care Filed: 03/06/2025 15:08 Note Text: Patient was taken to the OR before she could be evaluated at bedside. Lab work and vital signs reviewed. Per neurosurgery note, patient to be transferred to NSICU postop. Hospital medicine team will sign off. Please reach out to swing/admitting team when patient is ready for transfer to regular floor. [facility] 03-06-2025 Note HNO ID: [id number] Author: SERENA GIRON APRN.FURNACE COMBUSTION TESTER Service: Anesthesiology Author Type: Nurse Cell Reliner Type: Anesthesia Procedure Notes Filed: 03/06/2025 10:10 Note Text: ANESTHESIOLOGY PROCEDURE NOTE PIV General Information Procedure Start Time/Medication Administration: 03/06/2025 10:09 AM Procedure End Time: 03/06/2025 10:09 AM Staffing FURNACE COMBUSTION TESTER: Serena Giron APRN.FURNACE COMBUSTION TESTER Performed by: FURNACE COMBUSTION TESTER Preparation Sterility Preparation: hand hygiene performed prior to procedure, surgical cap used, mask used, skin prep agent completely dried prior to procedure Sterility Technique Not Completely Performed Due to Extreme Emergency: No Site Prep: Chloraprep Procedure Details Indication: need for IV access Needle Size/Type: 18 gauge angiocath Orientation: Left Location: Hand Imaging Guidance Used: No SIGNATURE: Serena Giron APRN.FURNACE COMBUSTION TESTER PATIENT NAME: Sierra Patton DATE: March 06, 2025 TIME: 10:09 AM CSN: [id number] [facility] 03-06-2025 Note HNO ID: [id number] Author: SERENA GIRON APRN.FURNACE COMBUSTION TESTER Service: Anesthesiology Author Type: Nurse Cell Reliner Type: Anesthesia Procedure Notes Filed: 03/06/2025 10:09 Note Text: ANESTHESIOLOGY PROCEDURE NOTE Airway General Information Procedure Start Time/Medication Administration: 03/06/2025 9:32 AM Procedure End Time: 03/06/2025 10:09 AM Patient location during procedure: OR Timeout Performed Pre-procedure: timeout performed Consent Obtained: Yes Patient identity confirmed: arm band, 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 and patient Staffing FURNACE COMBUSTION TESTER: Serena Giron APRN.FURNACE COMBUSTION TESTER Performed by: FURNACE COMBUSTION TESTER Indications and Patient Condition Indications for airway management: anesthesia Preoxygenated: yes anesthesia circuit Patient position: sniffing Method: asleep Cricoid Pressure: No Manual In-Line Stabilization: No Difficult Mask: No Final Airway Details Final airway type: endotracheal airway Final Endotracheal Airway: ETT Cuffed: yes Successful intubation technique: direct laryngoscopy Endotracheal tube insertion site: oral Blade: Lorraine Blade size: #4 ETT size (mm): 7.0 Measured from: lips Measurement (cm): 22 Placement verified by: chest auscultation and capnometry Cormack-Lehane Classification: grade IIb - view of arytenoids or posterior of glottis only Number of attempts at approach: 1 Failed airway: no Unrecognized esophageal intubation: no Airway not difficult SIGNATURE: Serena Giron APRN.CRNA PATIENT NAME: Sierra Patton DATE: March 06, 2025 TIME: 10:09 AM CSN: [id number] [facility] 03-06-2025 Note HNO ID: [id number] Author: KATLYN FRANCOIS RN Service: Care Management Author Type: Registered Nurse Type: Care Mgt Progress Note Filed: 03/06/2025 08:40 Note Text: CARE MANAGEMENT PROGRESS NOTE SERVICE DATE: 03/06/2025 SERVICE TIME: 8:39 AM LOS: 5 days Needs Prior to Discharge: To Be Determined Chart reviewed. Plan for tumor resection today with Dr. Ambrocio. Pending therapy evals post surgery. Disposition TBD. CM to continue to follow. SIGNATURE: Katlyn Francois RN PATIENT NAME: Sierra Patton DATE: March 06, 2025 TIME: 8:38 AM [facility] 03-06-2025 Note HNO ID: [id number] Author: MALIA FRYE PA-C Service: Neurosurgery Author Type: Physician Supervisor [employer] Type: Progress Notes Filed: 03/06/2025 11:12 Note Text: Neurosurgery Progress Note SERVICE DATE: 03/06/2025 SUBJECTIVE: Awake and alert sitting on side of bed, very anxiously waiting for surgery. Denies any new symptoms. Headaches controlled OBJECTIVE: Vitals: Temp (24hrs), Av.3 ?C (97.4 ?F), Min:36.2 ?C (97.2 ?F), Max:36.4 ?C (97.6 ?F) BP 119/73 Pulse 68 Temp 36.2 ?C (97.2 ?F) (Temporal) Resp 16 Ht 157.5 cm (5' 2) Wt 90.3 kg (199 lb 1.2 oz) SpO2 96% BMI 36.41 kg/m? O2 Therapy: Room Air IANDO: Date 03/05/25699 - 03/06/25 0603/06/25 07 - 03/07/25 0659 Shift 6001-6026 3809-4696 1257-6150 24 Hour Total 2034-3821 9199-7760 4385-4183 24 Hour Total INTAKE IV 200 200 Volume (mL) (levETIRAcetam 500 mg in NaCl 0.9% 100 mL (KEPPRA)) 100 100 Volume (mL) (ceFAZolin iv piggyback 2 g in D5W (iso-osmotic) 100 mL (ANCEF)) 100 100 Shift Total 200 200 OUTPUT Shift Total Weight (kg) 90.3 90.3 90.3 90.3 90.3 90.3 90.3 90.3 MEDICATIONS Current Facility-Administered Medications Medication Dose Route Frequency bacitracin 500 unit/gram topical ointment X (OR/PROCEDURE) PRN NaCl 0.9% irrigation solution X (OR/PROCEDURE) PRN [Transfer Hold] morphine 2 mg injection 2 mg INTRAVENOUS q 4 H PRN [Transfer Hold] oxyCODONE IR 5 mg tab(s) (ROXICODONE) 5 mg ORAL q 4 H PRN [Transfer Hold] dexAMETHasone 4 mg tab(s) (DECADRON) 4 mg ORAL q 6 H [Transfer Hold] nicotine 14 mg/24 hr 1 patch (NICODERM) 1 patch TRANSDERMAL DAILY And [Transfer Hold] nicotine -- REMOVE patch OTHER DAILY And [Transfer Hold] nicotine - verify patch OTHER q 8 H [Transfer Hold] clonazePAM 1 mg tab(s) (KlonoPIN) 1 mg ORAL q 12 H PRN [Transfer Hold] acetaminophen 325-650 mg tab(s) (TYLENOL) 325-650 mg ORAL q 6 H PRN [Transfer Hold] brexpiprazole 2 mg tab(s) (REXULTI) 2 mg ORAL DAILY [Transfer Hold] escitalopram oxalate 20 mg tab(s) (LEXAPRO) 20 mg ORAL DAILY [Transfer Hold] metoprolol succinate ER 50 mg tab(s) (TOPROL XL) 50 mg ORAL BID [Transfer Hold] rosuvastatin 10 mg tab(s) (CRESTOR) 10 mg ORAL AT BEDTIME [Transfer Hold] NaCl 0.9% iv flush bag 20 mL INTRAVENOUS PRN [Transfer Hold] ondansetron (PF) 4 mg injection (ZOFRAN) 4 mg INTRAVENOUS q 6 H PRN [Transfer Hold] pantoprazole DR 20 mg tab(s) (PROTONIX) 20 mg ORAL BID AC (0600/1600) [Transfer Hold] levETIRAcetam 500 mg tab(s) (KEPPRA) 500 mg ORAL BID Labs: Recent Labs 03/05/25 2136 INR 1.0 Exam: GENERAL: Awake and alert; NAD; cooperative; pleasant; restless and anxious NEURO: Orientedx3; speech clear and fluent; VAZQUEZ; no arm drift STRENGTH: intact HEENT: atraumatic; perrl/eomi; no facial droop LUNGS: Unlabored breathing ASSESSMENT AND PLAN: 54 year old female hx CKD, anxiety, depression, HTN, p/w incidental finding of brain mass - neuro stable - CTHx2; MRI/A brainx1 - DVT ppx: SQH - held for surgery - pain control: Tylenol, Oxy, Morphine prn - anxiolytic: Klonopin - Nicotine patches - continue Keppra 500mg BID - continue Dex 4q6 - has been NPO - OR today for mass resection - will transfer to NSICU post operatively Parts of this note may have been copied from one of my previous notes and remain pertinent. The documentation has been reviewed and edited as necessary to support the clinical decision making for today's visit. SIGNATURE: Malia rFye PA-C PATIENT NAME: Sierra Patton DATE: March 06, 2025 TIME: 11:06 AM Pager: [phone] [facility] 03-05-2025 Note HNO ID: [id number] Author: RON BRUNO MD Service: Hospital Medicine Author Type: Physician Type: Progress Notes Filed: 03/05/2025 17:16 Note Text: Documentation Query Please clarify the diagnosis associated with he MRI findings: Cerebral Edema This document will become part of the patient's medical record. [facility] 03-05-2025 Note HNO ID: [id number] Author: RON BRUNO MD Service: Hospital Medicine Author Type: Physician Type: Progress Notes Filed: 03/05/2025 10:28 Note Text: DEPARTMENT OF HOSPITAL MEDICINE PROGRESS NOTE SERVICE DATE: 03/05/2025 SERVICE TIME: 10:24 AM Hospital Medicine/Primary Attending: Ron Bruno MD NIGHT AND WEEKEND COVERAGE: After 7pm please page [phone] SUBJECTIVE: Follow up for meningioma. No new issues. OBJECTIVE: PHYSICAL EXAM: BP 106/64 Pulse 75 Temp (Src) 97.7 (Oral) Resp 19 Ht 5' 2 (1.58m) Wt 199 lb 1.2 oz (90.3kg) SpO2 92% BMI 36.40 kg/(m2). O2 Therapy: Room Air General - AANDOx3, NAD, Calm Skin- No new lesions ENT- no icterus Neuro- No dysarthria MEDICATIONS: Current Facility-Administered Medications Medication Dose Route Frequency brexpiprazole 2 mg tab(s) (REXULTI) 2 mg ORAL DAILY escitalopram oxalate 20 mg tab(s) (LEXAPRO) 20 mg ORAL DAILY metoprolol succinate ER 50 mg tab(s) (TOPROL XL) 50 mg ORAL BID rosuvastatin 10 mg tab(s) (CRESTOR) 10 mg ORAL AT BEDTIME triamterene-hydroCHLOROthiazide 37.5-25 mg 1 tablet (MAXZIDE-25) 1 tablet ORAL DAILY NaCl 0.9% iv flush bag 20 mL INTRAVENOUS PRN ondansetron (PF) 4 mg injection (ZOFRAN) 4 mg INTRAVENOUS q [address] 20 mg tab(s) (PROTONIX) 20 mg ORAL BID AC (0600/1600) levETIRAcetam 500 mg tab(s) (KEPPRA) 500 mg ORAL BID heparin 5,000 Units injection 5,000 Units SUBCUTANEOUS q 12 H nicotine 14 mg/24 hr 1 patch (NICODERM) 1 patch TRANSDERMAL DAILY And nicotine -- REMOVE patch OTHER DAILY And nicotine - verify patch OTHER q 8 H clonazePAM 1 mg tab(s) (KlonoPIN) 1 mg ORAL q 12 H PRN acetaminophen 325-650 mg tab(s) (TYLENOL) 325-650 mg ORAL q 6 H PRN morphine 2 mg injection 2 mg INTRAVENOUS q 4 H PRN oxyCODONE IR 5 mg tab(s) (ROXICODONE) 5 mg ORAL q 4 H PRN dexAMETHasone 4 mg tab(s) (DECADRON) 4 mg ORAL q 6 H DATA: Diagnostic tests reviewed for today's visit: CBC: No results for input(s): WBC, RBC, HB, HCT, PLT, MCV, MCH, MPV, RDW in the last 24 hours. Coags: No results for input(s): PT, INR, APTT in the last 24 hours. BMP: No results for input(s): NA, K, CHLOR, CO2, BUN, CREAT, GLUC in the last 24 hours. CMP: No results for input(s): NA, K, CHLOR, CO2, BUN, CREAT, GLUC, TPROT, CA, MG, ALBUMIN, TBILI, ALKPHOS, ALT, AST, ANION in the last 24 hours. Cardiac Enzymes: No results for input(s): CK, MB, CKMB, TROPT in the last 24 hours. Liver Function, Amylase, Lipase: No results for input(s): TPROT, ALB, ALT, AST, ALKPHOS, TBILI, AMYLASE, LIPASE, LACTATE in the last 24 hours. MG/PHOS: No results for input(s): MG, P in the last 24 hours. Renal Panel: No results for input(s): ALBUMIN, CREAT, BUN, GLUC, CA, P, CHLOR, K, CO2, NA in the last 24 hours. Heme: No results for input(s): RETICP, ABSRETIC, LD, KALPESH, FE, TIBC,TRANSFERSAT in the last 24 hours. No results found for: UALBCR Active Hospital Problems Diagnosis Date Noted POA Brain mass 03/01/2025 Yes Resolved Hospital Problems No resolved problems to display. I have reviewed patient's ED Course and the primary team's H and P Assessment/Plan 1) Meningioma - Decadron resumed by NS - Discussed with Neurosurgery - MRI reviewed - Plan for OR Tuesday - NS consult reviewed 2) Psych - Hx: depression, anxiety - clonazepam 1 mg PO at bedtime - escitalopram 20 mg PO daily 3) HTN - Maxzide and Metoprolol 50mg - Soft today, DC Maxzide 54 yo F c Meningioma. After surgery Tuesday morning she will go to Neuro ICU. VTE Prophylaxis: As per primary team Disposition: To be determined Plan of care discussed with: Provider, RN, Patient SIGNATURE: Ron Bruno MD PATIENT NAME: Sierra Patton DATE: March 05, 2025 TIME: 10:24 AM PAGER/CONTACT #: My Pager. Page [phone] after 7PM, as my pager is off. [facility] 03-04-2025 Note HNO ID: [id number] Author: RON BRUNO MD Service: Hospital Medicine Author Type: Physician Type: Progress Notes Filed: 03/04/2025 12:25 Note Text: DEPARTMENT OF HOSPITAL MEDICINE PROGRESS NOTE SERVICE DATE: 03/04/2025 SERVICE TIME: 12:24 PM Hospital Medicine/Primary Attending: Ron Bruno MD NIGHT AND WEEKEND COVERAGE: After 7pm please page [phone] SUBJECTIVE: Follow up for Meningioma. No new issues. OBJECTIVE: PHYSICAL EXAM: BP 110/69 Pulse 85 Temp (Src) 97.4 (Oral) Resp 18 Ht 5' 2 (1.58m) Wt 199 lb 1.2 oz (90.3kg) SpO2 93% BMI 36.40 kg/(m2). O2 Therapy: Room Air General - AANDOx3, NAD, Calm Skin- No new lesions CV - RRR S1 S2, No M/R/G RESP - CTA B/L No wheezes, ronchi, rales ABD - soft, NT, ND +BS ENT- no icterus Neuro- No dysarthria MEDICATIONS: Current Facility-Administered Medications Medication Dose Route Frequency brexpiprazole 2 mg tab(s) (REXULTI) 2 mg ORAL DAILY escitalopram oxalate 20 mg tab(s) (LEXAPRO) 20 mg ORAL DAILY metoprolol succinate ER 50 mg tab(s) (TOPROL XL) 50 mg ORAL BID rosuvastatin 10 mg tab(s) (CRESTOR) 10 mg ORAL AT BEDTIME triamterene-hydroCHLOROthiazide 37.5-25 mg 1 tablet (MAXZIDE-25) 1 tablet ORAL DAILY NaCl 0.9% iv flush bag 20 mL INTRAVENOUS PRN ondansetron (PF) 4 mg injection (ZOFRAN) 4 mg INTRAVENOUS q [address] 20 mg tab(s) (PROTONIX) 20 mg ORAL BID AC (0600/1600) levETIRAcetam 500 mg tab(s) (KEPPRA) 500 mg ORAL BID heparin 5,000 Units injection 5,000 Units SUBCUTANEOUS q 12 H nicotine 14 mg/24 hr 1 patch (NICODERM) 1 patch TRANSDERMAL DAILY And nicotine -- REMOVE patch OTHER DAILY And nicotine - verify patch OTHER q 8 H clonazePAM 1 mg tab(s) (KlonoPIN) 1 mg ORAL q 12 H PRN acetaminophen 325-650 mg tab(s) (TYLENOL) 325-650 mg ORAL q 6 H PRN morphine 2 mg injection 2 mg INTRAVENOUS q 4 H PRN oxyCODONE IR 5 mg tab(s) (ROXICODONE) 5 mg ORAL q 4 H PRN dexAMETHasone 4 mg tab(s) (DECADRON) 4 mg ORAL q 6 H DATA: Diagnostic tests reviewed for today's visit: CBC: No results for input(s): WBC, RBC, HB, HCT, PLT, MCV, MCH, MPV, RDW in the last 24 hours. Coags: No results for input(s): PT, INR, APTT in the last 24 hours. BMP: No results for input(s): NA, K, CHLOR, CO2, BUN, CREAT, GLUC in the last 24 hours. CMP: No results for input(s): NA, K, CHLOR, CO2, BUN, CREAT, GLUC, TPROT, CA, MG, ALBUMIN, TBILI, ALKPHOS, ALT, AST, ANION in the last 24 hours. Cardiac Enzymes: No results for input(s): CK, MB, CKMB, TROPT in the last 24 hours. Liver Function, Amylase, Lipase: No results for input(s): TPROT, ALB, ALT, AST, ALKPHOS, TBILI, AMYLASE, LIPASE, LACTATE in the last 24 hours. MG/PHOS: No results for input(s): MG, P in the last 24 hours. Renal Panel: No results for input(s): ALBUMIN, CREAT, BUN, GLUC, CA, P, CHLOR, K, CO2, NA in the last 24 hours. Heme: No results for input(s): RETICP, ABSRETIC, LD, KALPESH, FE, TIBC,TRANSFERSAT in the last 24 hours. No results found for: UALBCR Active Hospital Problems Diagnosis Date Noted POA Brain mass 03/01/2025 Yes Resolved Hospital Problems No resolved problems to display. I have reviewed patient's ED Course and the primary team's H and P Assessment/Plan 1) Meningioma - Decadron resumed by NS - Discussed with Neurosurgery - MRI reviewed - Plan for OR Tuesday - NS consult reviewed 2) Psych - Hx: depression, anxiety - clonazepam 1 mg PO at bedtime - escitalopram 20 mg PO daily 3) HTN - Maxzide and Metoprolol 50mg VTE Prophylaxis: Heparin 5000 units Sub Q BID Disposition: To be determined Plan of care discussed with: Provider, RN, Patient SIGNATURE: Ron Bruno MD PATIENT NAME: Sierra Patton DATE: March 04, 2025 TIME: 12:24 PM PAGER/CONTACT #: My Pager. Page [phone] after 7PM, as my pager is off. [facility] 03-04-2025 Note HNO ID: [id number] Author: KATLYN FRANCOIS RN Service: Care Management Author Type: Registered Nurse Type: Care Mgt Progress Note Filed: 03/04/2025 09:24 Note Text: CARE MANAGEMENT PROGRESS NOTE SERVICE DATE: 03/04/2025 SERVICE TIME: 9:21 AM LOS: 3 days Needs Prior to Discharge: To Be Determined Chart reviewed,MRI reveals intracranial brain mass, meningioma. Plans for craniotomy with excision Tuesday, NS following. CM to continue to follow for needs. SIGNATURE: Katlyn Francois RN PATIENT NAME: Sierra Patton DATE: March 04, 2025 TIME: 9:21 AM [facility] 03-03-2025 Note HNO ID: [id number] Author: RON BRUNO MD Service: Hospital Medicine Author Type: Physician Type: Progress Notes Filed: 03/04/2025 11:01 Note Text: DEPARTMENT OF HOSPITAL MEDICINE PROGRESS NOTE SERVICE DATE: 03/03/2025 SERVICE TIME: 9:13 AM Hospital Medicine/Primary Attending: Ron Bruno MD NIGHT AND WEEKEND COVERAGE: After 7pm please page [phone] SUBJECTIVE: Follow up for Meningioma. No CP SOB NVD ANDERSON OBJECTIVE: PHYSICAL EXAM: BP 93/55 Pulse 73 Temp (Src) 97.1 (Oral) Resp 18 Ht 5' 2 (1.58m) Wt 199 lb 1.2 oz (90.3kg) SpO2 95% BMI 36.40 kg/(m2). O2 Therapy: Room Air General - AANDOx3, NAD, Calm Skin- No new lesions ENT- no icterus Neuro- No dysarthria MEDICATIONS: Current Facility-Administered Medications Medication Dose Route Frequency brexpiprazole 2 mg tab(s) (REXULTI) 2 mg ORAL DAILY escitalopram oxalate 20 mg tab(s) (LEXAPRO) 20 mg ORAL DAILY metoprolol succinate ER 50 mg tab(s) (TOPROL XL) 50 mg ORAL BID rosuvastatin 10 mg tab(s) (CRESTOR) 10 mg ORAL AT BEDTIME triamterene-hydroCHLOROthiazide 37.5-25 mg 1 tablet (MAXZIDE-25) 1 tablet ORAL DAILY NaCl 0.9% iv flush bag 20 mL INTRAVENOUS PRN ondansetron (PF) 4 mg injection (ZOFRAN) 4 mg INTRAVENOUS q [address] 20 mg tab(s) (PROTONIX) 20 mg ORAL BID AC (0600/1600) levETIRAcetam 500 mg tab(s) (KEPPRA) 500 mg ORAL BID heparin 5,000 Units injection 5,000 Units SUBCUTANEOUS q 12 H nicotine 14 mg/24 hr 1 patch (NICODERM) 1 patch TRANSDERMAL DAILY And nicotine -- REMOVE patch OTHER DAILY And nicotine - verify patch OTHER q 8 H clonazePAM 1 mg tab(s) (KlonoPIN) 1 mg ORAL q 12 H PRN acetaminophen 325-650 mg tab(s) (TYLENOL) 325-650 mg ORAL q 6 H PRN morphine 2 mg injection 2 mg INTRAVENOUS q 4 H PRN oxyCODONE IR 5 mg tab(s) (ROXICODONE) 5 mg ORAL q 4 H PRN DATA: Diagnostic tests reviewed for today's visit: CBC: Recent Labs 03/03/25 0504 WBC 9.27 RBC 4.13 HB 11.6 HCT 35.6* PLT 309 MCV 86.2 MCH 28.1 MPV 9.4 Coags: No results for input(s): PT, INR, APTT in the last 24 hours. BMP: Recent Labs 03/03/25 0504 NA 140 K 3.9 CHLOR 102 CO2 27 BUN 29* CREAT 1.15* GLUC 101* CMP: Recent Labs 03/03/25 0504 NA 140 K 3.9 CHLOR 102 CO2 27 BUN 29* CREAT 1.15* GLUC 101* CA 8.8 MG 2.3 ANION 11 Cardiac Enzymes: No results for input(s): CK, MB, CKMB, TROPT in the last 24 hours. Liver Function, Amylase, Lipase: No results for input(s): TPROT, ALB, ALT, AST, ALKPHOS, TBILI, AMYLASE, LIPASE, LACTATE in the last 24 hours. MG/PHOS: Recent Labs 03/03/25 0504 MG 2.3 Renal Panel: Recent Labs 03/03/25 0504 CREAT 1.15* BUN 29* GLUC 101* CA 8.8 CHLOR 102 K 3.9 CO2 27 NA 140 Heme: No results for input(s): RETICP, ABSRETIC, LD, KALPESH, FE, TIBC,TRANSFERSAT in the last 24 hours. No results found for: UALBCR Active Hospital Problems Diagnosis Date Noted POA Brain mass 03/01/2025 Yes Resolved Hospital Problems No resolved problems to display. I have reviewed patient's ED Course and the primary team's H and P Assessment/Plan 1) Meningioma - Decadron held - MRI reviewed - Plan for OR Tuesday - NS consult reviewed 2) Psych - Hx: depression, anxiety Home meds: - clonazepam 1 mg PO at bedtime - escitalopram 20 mg PO daily 3) HTN - Maxzide and Metoprolol 50mg VTE Prophylaxis: As per primary team Disposition: To be determined Plan of care discussed with: Provider, RN, Patient SIGNATURE: Ron Bruno MD PATIENT NAME: Sierra Patton DATE: March 03, 2025 TIME: 9:13 AM PAGER/CONTACT #: My Pager. Page [phone] after 7PM, as my pager is off. [facility] 03-03-2025 Note HNO ID: [id number] Author: FABRIZIO AMBROCIO MD Service: Neurosurgery Author Type: Physician Type: Plan of Care Filed: 03/03/2025 07:59 Note Text: The MRI was reviewed and it confirms that the intracranial mass is a meningioma in the subfrontal area. I saw the pt with Malia Frye and she appeared quite alert and coherent and aware of what her problem is. I recommended craniotomy for excision of the tumor and administration of decadron. I plan to operate Tuesday if the OR schedule permits. I reviewed the operative procedure details with the pt and informed her of the risks, complications and expectations including loss of smell, memory impairment and cognitive function impairment, hemiparesis or shannen leg weakness, return to OR for swelling or hematoma and recurrence of the tumor and possible need for surgery and /or Radiation in the future. She understood and gave me verbal consent to proceed. Fabrizio Ambrocio MD [facility] 03-02-2025 Note HNO ID: [id number] Author: MALIA FRYE PA-C Service: Neurosurgery Author Type: Physician Supervisor [employer] Type: Progress Notes Filed: 03/02/2025 16:55 Note Text: Neurosurgery Progress Note SERVICE DATE: 03/02/2025 SUBJECTIVE: Called by RN for pt awakening from nap and repeating herself to her daughter and c/o halos around her eyes. On assessment all has resolved. She is currently c/o pain to the left catholic. She denies dizziness but feels 'mildly woozy' when she gets up to ambulate. She denies n/v, diplopia or blurred vision or other pain or headache. She continues to ask for Morphine. Also asking for Nicotine patch. Tolerating diet. OBJECTIVE: Vitals: Temp (24hrs), Av.3 ?C (97.4 ?F), Min:36.2 ?C (97.2 ?F), Max:36.4 ?C (97.5 ?F) BP 93/61 Pulse 81 Temp 36.2 ?C (97.2 ?F) (Oral) Resp 17 Ht 157.5 cm (5' 2) Wt 90.3 kg (199 lb 1.2 oz) SpO2 97% BMI 36.41 kg/m? O2 Therapy: Room Air MEDICATIONS Current Facility-Administered Medications Medication Dose Route Frequency heparin 5,000 Units injection 5,000 Units SUBCUTANEOUS q 12 H nicotine 14 mg/24 hr 1 patch (NICODERM) 1 patch TRANSDERMAL DAILY And nicotine - verify patch OTHER q 8 H clonazePAM 1 mg tab(s) (KlonoPIN) 1 mg ORAL q 12 H PRN acetaminophen 325-650 mg tab(s) (TYLENOL) 325-650 mg ORAL q 6 H PRN morphine 2 mg injection 2 mg INTRAVENOUS q 4 H PRN brexpiprazole 2 mg tab(s) (REXULTI) 2 mg ORAL DAILY escitalopram oxalate 20 mg tab(s) (LEXAPRO) 20 mg ORAL DAILY metoprolol succinate ER 50 mg tab(s) (TOPROL XL) 50 mg ORAL BID rosuvastatin 10 mg tab(s) (CRESTOR) 10 mg ORAL AT BEDTIME triamterene-hydroCHLOROthiazide 37.5-25 mg 1 tablet (MAXZIDE-25) 1 tablet ORAL DAILY NaCl 0.9% iv flush bag 20 mL INTRAVENOUS PRN ondansetron (PF) 4 mg injection (ZOFRAN) 4 mg INTRAVENOUS q [address] 20 mg tab(s) (PROTONIX) 20 mg ORAL BID AC (0600/1600) levETIRAcetam 500 mg tab(s) (KEPPRA) 500 mg ORAL BID Labs: No results for input(s): NA, K, CHLOR, CO2, BUN, CREAT, GLUC, ANION, CA, MG, P, ALB, AST, ALT, ALKPHOS, TBILI, DBILI, PHOSINTL, WBC, HB, HCT, PLT, LACT, INR, PH, PCO2, PO2, BE, HCO3 in the last 72 hours. Invalid input(s): LISDBC Exam: GENERAL: Awake and alert sitting up cross legged in bed; NAD; cooperative; pleasant NEURO: Orientedx3; speech clear and fluent; VAZQUEZ well and equally STRENGTH: no focal deficits HEENT: atraumatic; perrl/eomi; no facial droop LUNGS: Unlabored breathing ASSESSMENT AND PLAN: 54 year old female hx CKD, anxiety, depression, HTN, p/w incidental finding of brain mass - neuro stable - STAT CTH shows nothing acute, mass stable - MRI reviewed by Dr. Ambrocio. Plan for mass resection on 03/06 - DVT ppx: SQH - pain control: reduce Morphine and add Tylenol and Oxy prn - anxiolytic: Klonopin - add Nicotine patch - consider EEG and neurology consult - continue Keppra - order basic labs Parts of this note may have been copied from one of my previous notes and remain pertinent. The documentation has been reviewed and edited as necessary to support the clinical decision making for today's visit. SIGNATURE: Malia Frye PA-C PATIENT NAME: Sierra Patton DATE: March 02, 2025 TIME: 4:42 PM Pager: [phone] [facility] 03-02-2025 Note HNO ID: [id number] Author: RON BRUNO MD Service: Hospital Medicine Author Type: Physician Type: Progress Notes Filed: 03/02/2025 09:59 Note Text: DEPARTMENT OF HOSPITAL MEDICINE PROGRESS NOTE SERVICE DATE: 03/02/2025 SERVICE TIME: 9:58 AM Hospital Medicine/Primary Attending: Ron Bruno MD NIGHT AND WEEKEND COVERAGE: After 7pm please page [phone] SUBJECTIVE: Follow up for Mass. No new issues. OBJECTIVE: PHYSICAL EXAM: BP 102/68 Pulse 73 Temp (Src) 97.2 (Oral) Resp 17 Ht 5' 2 (1.58m) Wt 199 lb 1.2 oz (90.3kg) SpO2 96% BMI 36.40 kg/(m2). O2 Therapy: Room Air General - AANDOx3, NAD, Calm Skin- No new lesions ENT- no icterus Neuro- No dysarthria MEDICATIONS: Current Facility-Administered Medications Medication Dose Route Frequency brexpiprazole 2 mg tab(s) (REXULTI) 2 mg ORAL DAILY clonazePAM 1 mg tab(s) (KlonoPIN) 1 mg ORAL AT BEDTIME PRN escitalopram oxalate 20 mg tab(s) (LEXAPRO) 20 mg ORAL DAILY metoprolol succinate ER 50 mg tab(s) (TOPROL XL) 50 mg ORAL BID rosuvastatin 10 mg tab(s) (CRESTOR) 10 mg ORAL AT BEDTIME triamterene-hydroCHLOROthiazide 37.5-25 mg 1 tablet (MAXZIDE-25) 1 tablet ORAL DAILY NaCl 0.9% iv flush bag 20 mL INTRAVENOUS PRN morphine 4 mg injection 4 mg INTRAVENOUS q 4 H PRN ondansetron (PF) 4 mg injection (ZOFRAN) 4 mg INTRAVENOUS q [address] 20 mg tab(s) (PROTONIX) 20 mg ORAL BID AC (0600/1600) levETIRAcetam 500 mg tab(s) (KEPPRA) 500 mg ORAL BID iv contrast (radiology procedure) INTRAVENOUS DIRECTED PRN Exogenous Class 2 Obesity DATA: Diagnostic tests reviewed for today's visit: CBC: No results for input(s): WBC, RBC, HB, HCT, PLT, MCV, MCH, MPV, RDW in the last 24 hours. Coags: No results for input(s): PT, INR, APTT in the last 24 hours. BMP: No results for input(s): NA, K, CHLOR, CO2, BUN, CREAT, GLUC in the last 24 hours. CMP: No results for input(s): NA, K, CHLOR, CO2, BUN, CREAT, GLUC, TPROT, CA, MG, ALBUMIN, TBILI, ALKPHOS, ALT, AST, ANION in the last 24 hours. Cardiac Enzymes: No results for input(s): CK, MB, CKMB, TROPT in the last 24 hours. Liver Function, Amylase, Lipase: No results for input(s): TPROT, ALB, ALT, AST, ALKPHOS, TBILI, AMYLASE, LIPASE, LACTATE in the last 24 hours. MG/PHOS: No results for input(s): MG, P in the last 24 hours. Renal Panel: No results for input(s): ALBUMIN, CREAT, BUN, GLUC, CA, P, CHLOR, K, CO2, NA in the last 24 hours. Heme: No results for input(s): RETICP, ABSRETIC, LD, KALPESH, FE, TIBC,TRANSFERSAT in the last 24 hours. No results found for: UALBCR Active Hospital Problems Diagnosis Date Noted POA Brain mass 03/01/2025 Yes Resolved Hospital Problems No resolved problems to display. I have reviewed patient's ED Course and the primary team's H and P Assessment/Plan 1) Brain mass - Decadron held - Await MRI - NS consult reviewed 2) Psych - Hx: depression, anxiety Home meds: - clonazepam 1 mg PO at bedtime - escitalopram 20 mg PO daily VTE Prophylaxis: Heparin 5000 units Sub Q BID Disposition: To be determined Plan of care discussed with: Provider, RN, Patient SIGNATURE: Ron Bruno MD PATIENT NAME: Sierra Patton DATE: March 02, 2025 TIME: 9:58 AM PAGER/CONTACT #: My Pager. Page [phone] after 7PM, as my pager is off. [facility] 03-01-2025 Note HNO ID: [id number] Author: KATLYN FRANCOIS RN Service: Care Management Author Type: Registered Nurse Type: Care Mgt Initial Assessment Filed: 03/01/2025 12:45 Note Text: CARE MANAGEMENT: ASSESSMENT AND DISCHARGE PLAN SERVICE DATE: March 01, 2025 SERVICE TIME: 12:39 PM PCP: Mati Augustine DO, DO Primary Contact: Extended Emergency Contact Information Primary Emergency Contact: Raghu Vasquez Mobile Relation: Significant other Admission Status: Inpatient Insurance [facility] Discharge Planning requested by: Per Department Practice Potential Transition Plans To Be Determined Advance Directives Current Advance Directive: None Lens Polisher Hand Attempted to Assist with AD Completion: Yes Action: Education Provided Current Living Arrangements and Support Lives with: Spouse/significant other Type of Residence: Private Residence (House) Does the patient have to climb stairs at home?: Yes, stairs outside the home (Ranch home with 6 stairs to enter) Support: Family members, Spouse/significant other How do you manage to accomplish the following: Independent: Ambulation, Bathe/Shower, Dress, Meals/Meal Prep, Going to the bathroom, Medication Management, Transportation to appointments/community Current Services/Equipment Current Post-Acute Service(s): None Discharge Planning Patient Goal(s): Independent living, Be able to go home, General wellness [place] of Choice Explained: [place] of [place] Given: No Reason Not Given: Unable to complete with this assessment - revisit Are you interested in bedside delivery of your medications? No Discharge Planning Participant(s): Patient Caregiver Assessment: Caregiver is ready, willing and able to meet the patient's needs as recommended by the inter-professional team: No Caregiver needed Transport at Discharge: Transportation Arrangements: Car Needs Prior to Discharge: Needs Prior to Discharge: To Be Determined Post-Acute Discharge Plan: Presents to the hospital from [place] due to an incidentally discovered bifrontal lobe brain mass. I met with patient, CM role explained. Patient lives with significant other Raghu in a single level home, she is independent with ADLs, does not use any DME, +PCP, +RX coverage. Await neuro and NSGY recs. CM to continue to follow for any needs. SIGNATURE: Katlyn Francois RN PATIENT NAME: Sierra Patton DATE: March 01, 2025 TIME: 12:39 PM [facility] 03-01-2025 Note HNO ID: [id number] Author: RON BRUNO MD Service: Hospital Medicine Author Type: Physician Type: Progress Notes Filed: 03/01/2025 08:32 Note Text: Seen by my colleague earlier today. I introduced myself and answered questions. Reviewed the plan for the day. Will round fully tomorrow with nurse. Paged by RN that orders were missing. Had not released orders that were done properly by my colleague. [facility] 03-01-2025 Note HNO ID: [id number] Author: STEPH CALDERON RN Service: Nursing Author Type: Registered Nurse Type: Progress Notes Filed: 03/01/2025 07:40 Note Text: Pt received by this RN at 0000, vitals completed, admit screener completed, meds entered and Sound admit paged at [phone]. [facility] 02-28-2025 Note [facility] Medical Records Department [address] [place] [id number] Discharge Summary 02/28/25 1850 MR#: [id number] Acct: [id number] Name: SIERRA PATTON Rep #: [id number] : 1970 54 From: Esteban Boss MD PCP: Dr. Mati Augustine, DO Status:DIS IN Location: [facility] [id number] Providers Date of Admission: 02/27/25 Date of Discharge: 02/28/25 Primary Care Physician: Dr. Mati Augustine, DO Reason For Visit: BRAIN MASS WITH VASOGENIC EDEMA Diagnosis Discharge Diagnosis (1) Frontal mass of brain: Status: Acute Code(s): G93.89 - Other specified disorders of brain Plan Patient is a 54-year-old lady who was sent to the ED after she was found to have a brain mass 1. Brain mass ??? CT of the brain ordered did show 3.2 cm 4.1 cm by 2.4 cm enhancing mass involving the medial aspect of the right and left frontal lobes more prominent on the left side with surrounding edema and mass effect. A neoplastic process should be ruled out. Arrangement initiated to have patient transferred to [facility] With bed not being available decision was made to admit patient pending transfer ??? 02/28/2025; patient was transferred to [facility] once bed was obtained 2. Hypertension ??? Blood pressure controlled, home medications continued with dose adjustment as needed 3. Dyslipidemia ???Patient is on statin therapy, continued at home dose 4. GERD ??? On PPI 5. Depression with anxiety ??? Patient is on brexpiprazole, clonazepam, escitalopram 6. Class II obesity with BMI 35 ??? Weight loss advised 7. Multiple thyroid nodules ??? Patient has undergone workup as outpatient including FNA patient is followed by Dr. Lanier with general surgery Medications at Discharge Home Medications omeprazole magnesium 20 mg tablet,delayed release (Prilosec OTC) 20 mg PO BID #180 tabs 03/22/23 clobetasol 0.05 % topical ointment 1 applic topical DAILY PRN skin irritation 12/05/23 metoprolol succinate 50 mg tablet,extended release 24 hr 50 mg PO BID #120 TABLETS 11/21/24 multivitamin 1 tab PO QAM 12/11/24 triamterene 37.5 mg-hydrochlorothiazide 25 mg tablet 0.5 tab PO QAM #90 tabs 01/04/25 valacyclovir 500 mg tablet 500 mg PO DAILY #30 TABLETS 01/29/25 brexpiprazole 2 mg tablet (Rexulti) 2 mg PO DAILY 02/27/25 clonazepam 1 mg tablet (Klonopin) 1 - 2 mg PO QHS 02/27/25 echinacea 400 mg capsule 400 mg PO DAILY 02/27/25 escitalopram oxalate 20 mg tablet (Lexapro) 20 mg PO DAILY 02/27/25 rosuvastatin 10 mg tablet 10 mg PO QHS 02/27/25 Hospital Course Summary of Care Provided Minutes Spent on Discharge: 38 Physical Exam Narrative GENERAL: cooperative HEENT: Atraumatic; normocephalic EYES; Anicteric, Normal Conjunctiva NECK; supple, normal thyroid, RESPIRATORY: Diminished to auscultation CARDIOVASCULAR: Regular S1 S2, GI: soft, normoactive bowel sounds, : No Renal angle tenderness; EXTREMITIES: No edema, no clubbing, MUSCULOSKELETAL: no muscle wasting NEURO: Awake; no lateralizing signs. SKIN: No Rash PSYCH; Flat affect Weight / BMI Weight Weight: 86.7 kg Body Mass Index (BMI) 34.9 ABG / Lab / Microbiology Data 02/28/25 05:21 02/28/25 05:21 Laboratory: Laboratory Results - last 24 hr 02/28/25 05:21: WBC 11.8 H, RBC 3.81 L, Hgb 10.9 L, Hct 32.1 L, MCV 84.3, MCH 28.6, MCHC 34.0, RDW Std Deviation 43.8, RDW Coeff of Rosemary 14.5, Plt Count 341, MPV 9.4, Immature Gran % (Auto) 1.300 H, N eut % (Auto) 88.7 H, Lymph % (Auto) 8.1 L, [place] % (Auto) 1.8, Eos % (Auto) 0.0, Baso % (Auto) 0.1, A bsolute Neuts (auto) 10.5 H, Absolute Lymphs (auto) 0.96, Nucleated RBC % 0, Sodium 142, Potassium 4.1, Chloride 105, Carbon Dioxide 23.8, Anion Gap 13, BUN 13, Creatinine 0.85, Estim Creat Clear Calc 78.23, Est GFR (MDRD) Non-Af 82, BUN/Creatinine Ratio 15.1, Glucose 158 H, Calcium 9.8 D/C Instructions Discharge Diet: No restrictions Discharge Activity: Return to Normal Activity Call your doctor if you observe: Fever of 101 or Higher, Shortness of breath, Fainting spells and Chest pain DC O2, CPAP, BIPAP Needs Home O2 Discharge instructions: No Meaningful Use Info Meaningful Use Meaningful Use Diagnoses (Choose all that apply): None applicable Ischemic Stroke Statin Dosing Therapy Reference: STATIN DOSE THERAPY REFERENCE: * Patients > 75 years receive moderate or high dose statin therapy. * Patients 75 years or YOUNGER should receive HIGH intensity statin dose unless contraindicated. You will be required to document reason for non-treatment if statin daily dose does not meet guidelines. HIGH DOSE STATIN THERAPY DAILY Atorvastatin > than or = to 40 mg Rosuvastatin > than or = to 20 mg Amlodipine + Atorvastatin > than or = to 2.5/40 mg Ezetimibe + Simvastatin 10/80 mg Simvastatin 80mg Discharge Plan Admission (more content not included)... [facility] 02-28-2025 Note Program: Psychiatric Intensive Outpatient Program Current Service/Group: Intensive Outpatient Program Discharge Type: Did Not Complete Goals - Other (describe: It was reported by a family member that the pt was recently diagnosed with a brain tumor and will be undergoing surgery. ) Date of Last SessionAttended: 02/26/25 Number of Sessions attended: 1 Primary Diagnosis(es) at Admission: PTSD (post-traumatic stress disorder) (Chronic) * (Principal) Major depressive disorder, recurrent episode, moderate (HCC) - Primary (Chronic) GRAYSON (generalized anxiety disorder) (Chronic) Primary Diagnosis(es) at Transfer/Discharge: PTSD (post-traumatic stress disorder) (Chronic) * (Principal) Major depressive disorder, recurrent episode, moderate (HCC) - Primary (Chronic) GRAYSON (generalized anxiety disorder) (Chronic) Treatment Outcome Measures: PHQ-9 PHQ-9 pre-score: 24 PHQ-9 post-score: Patient did not complete GRAYSON-7 GRAYSON-7 pre-score: 18 GRAYSON-7 post-score: Patient did not complete Patient At Home Medication: Prior to Admission medications Medication Sig Start Date End Date Taking? Authorizing Provider Brexpiprazole (Rexulti) 1 MG tablet Take 1 mg by mouth daily. Historical Provider, clonazePAM (KlonoPIN) 1 MG tablet Take 1 mg by mouth Nightly. Historical Provider, escitalopram (Lexapro) 20 MG tablet Take 20 mg by mouth daily. Historical Provider, REFERRAL INFORMATION UPON DISCHARGE: Summary of Treatment Provided and Progress Towards Goal(s): The pt was discharged after one session due to a recently diagnosed medical condition. Include new referrals & patient's existing Behavior Health providers providing continuity of care Must include specific agency AND provider name Outpatient Behavioral Health Counseling Services: None/Not applicable Psychiatry Services: na Residential/Addiction Support Services: NA Other: None/NA Additional Comments (optional): Pt discharged after one session due to unforseen medical diagnosis. [facility] 02-28-2025 Progress note Note Date/Time February 28, 2025 10:28am [facility] Medical Records Department [address] [place] [address] Progress Note - Hospitalist 02/28/25 0959 MR#: [id number] Acct: [id number] Name: SIERRA PATTON Rep #:[id number] : 1970 54 From: Esteban Boss MD PCP: Dr. Mati Augustine, DO Status:AD M IN [id number] Reason for Visit Reason for Visit: Diagnoses Other specified disorders of brain (02/27/25) Subjective Subjective Patient is a 54-year-old lady who was sent to the ED after she was found to havea brain mass Objective Data Objective Data Vital Signs: Vital Signs Temp Pulse Resp BP Pulse Ox O2 Del Method 98.0 F 76 16 125/78 H 98 Room Air 02/28/25 09:31 02/28/25 09:31 02/28/25 09:31 02/28/25 09:31 02/28/25 09:31 02/28/25 09:31 Oxygen Delivery Method Room Air Weight: 86.7 kg Body Mass Index (BMI) 34.9 Lab / Micro Data 02/28/25 05:21 02/28/25 05:21 Labs: Laboratory Results - last 24 hr 02/27/25 17:27: POC Glucose 146 H 02/28/25 05:21: WBC 11.8 H, RBC 3.81 L, Hgb 10.9 L, Hct 32.1 L, MCV 84.3, MCH 28.6, MCHC 34.0, RDW Std Deviation 43.8, RDW Coeff of Rosemary 14.5, Plt Count 341, MPV 9.4, Immature Gran % (Auto) 1.300 H, Neut % (Auto) 88.7 H, Lymph % (Auto) 8.1 L, [place] % (Auto) 1.8, Eos % (Auto) 0.0, Baso % (Auto) 0.1, Absolute Neuts (auto) 10.5 H, Absolute Lymphs (auto) 0.96, Nucleated RBC % 0, Sodium 142, Potassium 4.1, Chloride 105, Carbon Dioxide 23.8, Anion Gap 13, BUN 13, Creatinine 0.85, Estim Creat Clear Calc 78.23, Est GFR (MDRD) Non-Af 82, BUN/Creatinine Ratio 15.1, Glucose 158 H, Calcium 9.8 Radiography Diagnostic Testing: Radiology Impression Chest CTA 02/27/25 09:16 IMPRESSION: No evidence of pulmonary embolism. 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 Heterogeneous appearance of the thyroid. Findings suggestive of multiple small hepatic cysts. Reading Location: [place] [address] Physical Exam Narrative GENERAL: cooperative HEENT: Atraumatic; normocephalic EYES; Anicteric, Normal Conjunctiva NECK; supple, normal thyroid, RESPIRATORY: Diminished to auscultation CARDIOVASCULAR: Regular S1 S2, GI: soft, normoactive bowel sounds, : No Renal angle tenderness; EXTREMITIES: No edema, no clubbing, MUSCULOSKELETAL: no muscle wasting NEURO: Awake; no lateralizing signs. SKIN: No Rash PSYCH; Flat affect Assessment & Plan Assessment/Plan (1) Frontal mass of brain: PLAN: Plan Patient is a 54-year-old lady who was sent to the ED after she was found to havea brain mass 1. Brain mass ? CT of the brain ordered did show 3.2 cm 4.1 cm by 2.4 cm enhancing mass involving the medial aspect of the right and left frontal lobes more prominent on the left side with surrounding edema and mass effect. A neoplastic process should be ruled out. Arrangement initiated to have patient transferred to [facility] With bed not being available decision was made to admit patient pending transfer 2. Hypertension ? Blood pressure controlled, home medications continued with dose adjustment as needed 3. Dyslipidemia ?Patient is on statin therapy, continued at home dose 4. GERD ? On PPI 5. Depression with anxiety ? Patient is on brexpiprazole, clonazepam, escitalopram 6. Class II obesity with BMI 35 ? Weight loss advised 7. Multiple thyroid nodules ? Patient has undergone workup as outpatient including FNA patient is followed by Dr. Lanier with general surgery Charges/Coding Visit Charges Inpatient E&M: 99677 Subs Hosp L2 02/28/25 1028 <Electronically signed by Esteban Boss MD> Cosigner Signature (if applicable): CC: ~ Signed [facility] Work Phone: 1(501) 135-209605-29-2025 Progress note [facility] Medical Records Department [address] [place] [address] Progress Note - Hospitalist 02/28/25 0959 MR#: [id number] Acct: [id number] Name: SIERRA PATTON Cira Rep #:[id number] : 1970 54 From: Esteban Boss MD PCP: Dr. Mati Augustine, DO Status:AD M IN [facility] Reason for Visit Reason for Visit: Diagnoses Other specified disorders of brain (02/27/25) Subjective Subjective Patient is a 54-year-old lady who was sent to the ED after she was found to havea brain mass Objective Data Objective Data Vital Signs: Vital Signs Temp Pulse Resp BP Pulse Ox O2 Del Method 98.0 F 76 16 125/78 H 98 Room Air 02/28/25 09:31 02/28/25 09:31 02/28/25 09:31 02/28/25 09:31 02/28/25 09:31 02/28/25 09:31 Oxygen Delivery Method Room Air Weight: 86.7 kg Body Mass Index (BMI) 34.9 Lab / Micro Data 02/28/25 05:21 02/28/25 05:21 Labs: Laboratory Results - last 24 hr 02/27/25 17:27: POC Glucose 146 H 02/28/25 05:21: WBC 11.8 H, RBC 3.81 L, Hgb 10.9 L, Hct 32.1 L, MCV 84.3, MCH 28.6, MCHC 34.0, RDW Std Deviation 43.8, RDW Coeff of Rosemary 14.5, Plt Count 341, MPV 9.4, Immature Gran % (Auto) 1.300 H, Neut % (Auto) 88.7 H, Lymph % (Auto) 8.1 L, [place] % (Auto) 1.8, Eos % (Auto) 0.0, Baso % (Auto) 0.1, Absolute Neuts (auto) 10.5 H, Absolute Lymphs (auto) 0.96, Nucleated RBC % 0, Sodium 142, Potassium 4.1, Chloride 105, Carbon Dioxide 23.8, Anion Gap 13, BUN 13, Creatinine 0.85, Estim Creat Clear Calc78.23, Est GFR (MDRD) Non-Af 82, BUN/Creatinine Ratio 15.1, Glucose 158 H, Calcium 9.8 Radiography Diagnostic Testing: Radiology Impression Chest CTA 02/27/25 09:16 IMPRESSION: No evidence of pulmonary embolism. 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 Heterogeneous appearance of the thyroid. Findings suggestive of multiple small hepatic cysts. Reading Location: [place] [address] Physical Exam Narrative GENERAL: cooperative HEENT: Atraumatic; normocephalic EYES; Anicteric, Normal Conjunctiva NECK; supple, normal thyroid, RESPIRATORY: Diminished to auscultation CARDIOVASCULAR: Regular S1 S2, GI: soft, normoactive bowel sounds, : No Renal angle tenderness; EXTREMITIES: No edema, no clubbing, MUSCULOSKELETAL: no muscle wasting NEURO: Awake; no lateralizing signs. SKIN: No Rash PSYCH; Flat affect Assessment & Plan Assessment/Plan (1) Frontal mass of brain: PLAN: Plan Patient is a 54-year-old lady who was sent to the ED after she was found to havea brain mass 1. Brain mass ? CT of the brain ordered did show 3.2 cm 4.1 cm by 2.4 cm enhancing mass involving the medial aspect of the right and left frontal lobes more prominent on the left side with surrounding edema and mass effect. A neoplastic process should be ruled out. Arrangement initiated to have patient transferred to [facility] With bed not being available decision was made to admit patient pending transfer 2. Hypertension ? Blood pressure controlled, home medications continued with dose adjustment as needed 3. Dyslipidemia ?Patient is on statin therapy, continued at home dose 4. GERD ? On PPI 5. Depression with anxiety ? Patient is on brexpiprazole, clonazepam, escitalopram 6. Class II obesity with BMI 35 ? Weight loss advised 7. Multiple thyroid nodules ? Patient has undergone workup as outpatient including FNA patient is followed by Dr. Lanier with general surgery Charges/Coding Visit Charges Inpatient E&M: 49677 Subs Hosp L2 02/28/25 1028 Cosigner Signature (if applicable): CC: ~ Signed [facility]05-28-2025 History and physical note Author Godwin Lynch [facility] Note Date/Time February 27, 2025 6:52p m [facility] Medical Records Department [address] [place] [address] H&P Exam - Hospitalist 02/27/25 6997 MR#: [id number] Acct: [id number] Name: SIERRA PATTON Rep #:[id number] : 1970 54 From: Godwin Lynch DO PCP: Dr. Mati Augustine, DO Status:RE G ER Location: ED HPI - General General Date of Service: 02/27/25 Chief Complaint: Brain mass HPI Narrative SIERRA PATTON, is a 54 F who presents for an incidental finding of a frontal midline brain mass. Patient was having routine screening for her thyroid nodules with a head CT. The head CT showed a 3.2 x 4.1 x 2.4 cm enhancing mass in the medial aspect of the right and left frontal lobes, more prominent on the left with surrounding edema and mass effect. Patient was sent to the emergency room. While in the emergency room, she received a dose of 10 mg of dexamethasone. And they reached out to [facility] with neurosurgery and the patient was excepted. However they do not have any readilyavailable beds of the hospital service at [facility] was contacted for admission until a bed becomes available at [facility]. Patient states that she has had some mild difficulties that she did notreally attribute to anything particular other than just getting older including occasional difficulty learning to spell common words but these would be transient and being forgetful at times but once again transient. Denied any weakness or any kind of visual changes. [facility] Medical History Chronic renal failure Trigger thumb Wears glasses Cancer Depression Anxiety Alcohol use Thyroid disease Easy bruising High cholesterol Restless legs Migraine headache Vertigo History of ulceration Gastric reflux Former smoker History of edema Normal Holter exam History of echocardiogram Trigger thumb of right hand Gammopathy Lesion of spleen Obesity Dermatitis Heart valve problem Polycystic ovaries Heart murmur Hyperlipidemia Hypertension Chronic headaches Emotional disorder Breast lump blood transfusion Bleeding disorder Back problem Anemia Seasonal allergies Home Medications ?Medication ?Instructions ?Recorded ?Last Taken ?Type omeprazole magnesium 20 mg 20 mg PO BID #180 tabs 03/0402/27/25 Rx tablet,delayed release (Prilosec OTC) clobetasol 0.05 % topical ointment 1 applic topical DA SARAH PRN skin 12/05/23 Unknown History irritation metoprolol succinate 50 mg 50 mg PO BID #120 TABLETS 0 11/21/24 02/27/25 Rx tablet,extended release 24 hr multivitamin 1 tab PO QAM 12/11/24 Unknow n History triamterene 37.5 0.5 tab PO QAM #90 tabs 01/2502/27/25 Rx mg-hydrochlorothiazide 25 mg tablet valacyclovir 500 mg tablet 500 mg PO DAILY #30 TABLETS 01/29/25 Unknown Rx brexpiprazole 2 mg tablet (Rexulti) 2 mg PO DAILY 02/0102/26/25 History clonazepam 1 mg tablet (Klonopin) 1 - 2 mg PO QHS 02/0102/26/25 History echinacea 400 mg capsule 400 mg PO DAILY 02/27/25 History escitalopram oxalate 20 mg tablet 20 mg PO DAILY 02/2702/27/25 History (Lexapro) rosuvastatin 10 mg tablet 10 mg PO QHS 02/27/25 History Allergy/AdvReac Type Severity Reaction Status Date / Time clindamycin Allergy Severe burning & Verified 02/27/25 08:54 watery eyes Sulfa (Sulfonamide Allergy Severe Hives Verified 02/27/25 08:54 Antibiotics) erythromycin base Allergy eye Verified 02/27/25 08:54 redness, watering, swelling Family History Father Alcohol abuse Anemia Anxiety Arthritis Depression Mental disorder Suicide attempt Heart disease Hypertension High cholesterol Mother Anemia Anxiety Arthritis Depression Hypertension High cholesterol Mental disorder Diabetes Grandmother Bleeding disorder Aunt Breast cancer Myocardial infarction Grandfather Myocardial infarction Grandmother CVA (cerebral vascular accident) Surgical History H/O thumb surgery History of loop electrical excision procedure (LEEP) History of bone marrow biopsy History of D&C liposuction to chin History of tonsillectomy and adenoidectomy History of tubal ligation Social History current occupational status: employed current occupation: [employer] Smoking Status: Unknown if ever smoked alcohol intake: current alcohol intake frequency: a few times a month Alcohol type: wine substance use type: does not use caffeine: Yes what type of physical activity do you participate in: walking and other details: rowing frequency: 1-2 times per week ROS ROS Narrative All review of systems were negative except as mentioned above in the history of present illness and the other review of systems. Vital Signs Vital Signs Vital Signs: 02/27/25 08:51 02/27/25 10:51 02/27/25 11:38 Temperature 36.4 C L Temperature Source Oral Pulse Rate 88 87 Respiratory Rate 16 16 Respiratory Effort Short of Breath Respiratory Depth Normal Respiratory Pattern Normal Blood Pressure 140/90 H 131/85 H Blood Pressure Mean 106 100 Pulse Ox 99 97 Oxygen Delivery Method Room Air Room Air 02/27/25 12:00 02/27/25 14:00 02/27/25 15:40 Temperature Temperature Source Pulse Rate 85 78 70 Respiratory Rate 17 15 16 Respiratory Effort Respiratory Depth Respiratory Pattern Blood Pressure 130/76 H 125/75 H 115/69 Blood Pressure Mean 94 91 84 Pulse Ox 99 97 99 Oxygen Delivery Method Room Air Room Air Room Air 02/27/25 17:00 02/27/25 17:29 Temperature 37.1 C Temperature Source Oral Pulse Rate 95 95 Respiratory Rate 20 H 23 H Respiratory Effort Respiratory Depth Respiratory Pattern Blood Pressure 148/77 H Blood Pressure Mean 100 Pulse Ox 98 96 Oxygen Delivery Method Room Air Room Air Weight Weight: 89.086 kg Body Mass Index (BMI) 35.9 Physical Exam Narrative - Physical Exam General: Alert, Oriented x3, Cooperative HEENT: Atraumatic, PERRLA, EOMI, Normocephalic Oral: Moist Mucosa, No Gingival or Mucosal Lesions/ Ulcerations Neck: Supple, No JVD, Negative Carotid Bruits Lungs: Clear to auscultation, Normal air movement Cardiovascular: Regular rate, Normal S1, Normal S2, No murmurs Abdomen: Bowel Sounds Present, Soft, Non Tender, Non-Distended, No Hepato-splenomegaly Extremities: No clubbing, No cyanosis, No edema, Capillary Refill Less than 3 Seconds Skin: No rashes, No breakdown Musculoskeletal: No Tenderness to Palpation of Joints or Extremities Neurological: Cranial nerves II through XII gross intact. Muscle strength 5-5 in upper and lower extremities. Psych/Mental Status: Normal Affect, Appropriate Results Lab / Micro Data 02/27/25 09:13 02/27/25 09:12 Labs: Laboratory Results - last 24 hr 02/27/25 09:12: Sodium 143, Potassium 4.2, Chloride 106, Carbon Dioxide 26.2, Anion Gap 11, BUN 14, Creatinine 1.16, Estim Creat Clear Calc 58.17, Est GFR (MDRD) Non-Af 56 L, BUN/Creatinine Ratio 11.9, Glucose 108 H, Calcium 9.6 02/27/25 09:13: WBC 6.5, RBC 3.59 L, Hgb 10.4 L, Hct 30.3 L, MCV 84.4, MCH 29.0,MCHC 34.3, RDW Std Deviation 44.0 H, RDW Coeff of Rosemary 14.5, Plt Count 260, MPV 9.1, Immature Gran % (Auto) 0.600, Neut % (Auto) 69.1, Lymph % (Auto) 20.4, [place]% (Auto) 5.9, Eos % (Auto) 3.4, Baso % (Auto) 0.6, Absolute Neuts (auto) 4.5, Absolute Lymphs (auto) 1.32, Nucleated RBC % 0 02/27/25 17:27: POC Glucose 146 H Imaging Radiology Impression Brain CT 02/27/25 09:16 IMPRESSION: 3.2 cm 4.1 cm by 2.4 cm enhancing mass involving the medial aspect of the right and left frontal lobes more prominent on the left side with surrounding edema and mass effect. A neoplastic process should be ruled out. No evidence of hydrocephalus. Reading Location: [facility] Chest CTA 02/27/25 09:16 IMPRESSION: No evidence of pulmonary embolism. 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 Heterogeneous appearance of the thyroid. Findings suggestive of multiple small hepatic cysts. Reading Location: [facility] Assessment & Plan Assessment/Plan (1) Frontal mass of brain: PLAN: Concerning for neoplasm. [id number] frontal midline mass. Patient received 10 mg of IV dexamethasone in emergency room and will continue with 4 mg twice daily given the vasogenic edema. Patient is currently hemodynamically stable [facility] where they can determine further treatment. In regards to some the workup she did undergo a CTA of her chest that show no PEand no evidence of any masses other than some small hepatic cysts PLAN: Plan Chronic conditions * Depression/anxiety/trauma: Continue with her home medications brexpiprazole, clonazepam, escitalopram * Hyperlipidemia: Continue with rosuvastatin VTE prophylaxis with SCDs. Charges/Coding Visit Charges Inpatient E&M: 02585 Init Hosp L2 02/27/251851 <Electronically signed by Godwin Lynch DO> Cosigner Signature (if applicable): CC: Dr. Mati Augustine DO; Dr. Godwin Lynch DO~ Signed [facility] Work Phone: 1(312) 218-515205-28-2025 Discharge summary Author Olive Yang [facility] Note Date/Time February 27, 2025 6:32p m [facility] Medical Records Department [address] [place] [address] Emergency Department Summary 02/27/25 MR#: [id number] Acct: [id number] Name: SIERRA PATTON Rep #:[id number] : 1970 54 From: Olive Yang MD PCP: Dr. Mati Augustine DO Status:RE G ER Location: ED ADDENDUM by Dr. Ron Hurley DO on 02/27/25 at 1832 Update: 1830 hrs. 27 Feb 2025 No wheezing at this time I reviewed the patient's ED course and the plan to transfer to [facility]. Unfortunately I am told by their transfer center that they will not have bed availability tonight. As it has been 6 hours since she was excepted I will speak with the hospitalist here regarding admission. She was noting nausea was given Zofran. 02/27/251831<Electronically signed by Ron Hurley DO> Cosigner Signature (if applicable): cc: Dr. Mati Augustine DO ~* Signed HPI History of Present Illness Chief Complaint: Shortness of Breath Narrative Narrative: 54-year-old female past medical history of swelling of thyroid for the last 3 years was sent in by her surgeon, Dr. Gene Lanier, for further imaging studies. In discussion with general surgery, patient had CT of the thyroid performed for swelling that she says has been going on for 3 years. She had been referred to him by her primary care provider. It was noted on the CT that there may be a brain mass as well as a questionable pulmonary embolism. Patientstates that she has been short of breath for few weeks to month, and is also having problems with memory loss. She states that she did not remember going tothe hairdresser or driving there the other day. She denies any headaches or nausea and vomiting. No exacerbating or alleviating factors. [facility] Medical History Chronic renal failure Trigger thumb Wears glasses Cancer Depression Anxiety Alcohol use Thyroid disease Easy bruising High cholesterol Restless legs Migraine headache Vertigo History of ulceration Gastric reflux Former smoker History of edema Normal Holter exam History of echocardiogram Trigger thumb of right hand Gammopathy Lesion of spleen Obesity Dermatitis Heart valve problem Polycystic ovaries Heart murmur Hyperlipidemia Hypertension Chronic headaches Emotional disorder Breast lump blood transfusion Bleeding disorder Back problem Anemia Seasonal allergies Home Medications ?Medication ?Instructions ?Recorded ?Last Taken ?Type omeprazole magnesium 20 mg 20 mg PO BID #180 tabs 03/0402/27/25 Rx tablet,delayed release (Prilosec OTC) clobetasol 0.05 % topical ointment 1 applic topical DA SARAH PRN skin 12/05/23 Unknown History irritation metoprolol succinate 50 mg 50 mg PO BID #120 TABLETS 0 11/21/24 02/27/25 Rx tablet,extended release 24 hr multivitamin 1 tab PO QAM 12/11/24 Unknow n History triamterene 37.5 0.5 tab PO QAM #90 tabs 04/01/2502/27/25 Rx mg-hydrochlorothiazide 25 mg tablet valacyclovir 500 mg tablet 500 mg PO DAILY #30 TABLETS 01/29/25 Unknown Rx brexpiprazole 2 mg tablet (Rexulti) 2 mg PO DAILY 02/0102/26/25 History clonazepam 1 mg tablet (Klonopin) 1 - 2 mg PO QHS 02/0102/26/25 History echinacea 400 mg capsule 400 mg PO DAILY 02/27/25 History escitalopram oxalate 20 mg tablet 20 mg PO DAILY 02/2702/27/25 History (Lexapro) rosuvastatin 10 mg tablet 10 mg PO QHS 02/27/25 History Allergy/AdvReac Type Severity Reaction Status Date / Time clindamycin Allergy Severe burning & Verified 02/27/25 08:54 watery eyes Sulfa (Sulfonamide Allergy Severe Hives Verified 02/27/25 08:54 Antibiotics) erythromycin base Allergy eye Verified 02/27/25 08:54 redness, watering, swelling Family History Father Alcohol abuse Anemia Anxiety Arthritis Depression Mental disorder Suicide attempt Heart disease Hypertension High cholesterol Mother Anemia Anxiety Arthritis Depression Hypertension High cholesterol Mental disorder Diabetes Grandmother Bleeding disorder Aunt Breast cancer Myocardial infarction Grandfather Myocardial infarction Grandmother CVA (cerebral vascular accident) Surgical History H/O thumb surgery History of loop electrical excision procedure (LEEP) History of bone marrow biopsy History of D&C liposuction to chin History of tonsillectomy and adenoidectomy History of tubal ligation Social History current occupational status: employed current occupation: [employer] Smoking Status: Unknown if ever smoked alcohol intake: current alcohol intake frequency: a few times a month Alcohol type: wine substance use type: does not use caffeine: Yes what type of physical activity do you participate in: walking and other details: rowing frequency: 1-2 times per week ROS ROS ED ROS Narrative Review of systems positive for memory loss and shortness of breath. Positive thyroid swelling for 3 years. No headaches, no fevers or chills, no nausea or vomiting. EXAM Physical Exam Narrative Exam Narrative: Afebrile. Vital signs noted. Nontoxic-appearing. Cardiovascular examination feels a regular rate and rhythm. Lungs are clear to auscultation bilaterally. Abdomen is soft and nontender with normal active bowel sounds, no guarding or rebound. Neurological examination shows her to be awake, alert, interactive, answering questions appropriately. Nonfocal, nonlateralizing. Const Vital Signs: 02/27/25 08:51 02/27/25 10:51 02/27/25 11:38 Temperature 97.6 F L Temperature Source Oral Pulse Rate 88 87 Respiratory Rate 16 16 Respiratory Effort Short of Breath Respiratory Depth Normal Respiratory Pattern Normal Blood Pressure 140/90 H 131/85 H Blood Pressure Mean 106 100 Pulse Ox 99 97 Oxygen Delivery Method Room Air Room Air 02/27/25 12:00 Temperature Temperature Source Pulse Rate 85 Respiratory Rate 17 Respiratory Effort Respiratory Depth Respiratory Pattern Blood Pressure 130/76 H Blood Pressure Mean 94 Pulse Ox 99 Oxygen Delivery Method Room Air MDM MDM MDM Narrative Medical decision making narrative: Differential diagnosis includes but not limited to incidental brain mass versus pulmonary embolism versus artifact. I did obtain basic laboratory work, and shehas normal white count of 6.5 with hemoglobin 10.4, hematocrit 30.3, platelet count normal at 260. BMP is remarkable for BUN of 14 creatinine 1.16. Glucose of probably elevated at 108 with normal anion gap of 11. CTA of the chest will be obtained to help rule out pulmonary embolism as well asCT of the brain. I reviewed the report of the outpatient imaging. In review of the radiology report of the CT of the brain, the impression is as follows: IMPRESSION: 3.2 cm 4.1 cm by 2.4 cm enhancing mass involving the medial aspect of the right and left frontal lobes more prominent on the left side with surrounding edema and mass effect. A neoplastic process should be ruled out. No evidence of hydrocephalus. Review of the radiology report of the CT of the chest shows no evidence of a pulmonary embolism, but she may have a pericardial cyst and multiple hepatic cysts. At this point in time, I discussed the patient with the hospitalist and as thereis no available neurosurgery here, patient will require transfer to a tertiary care center. I discussed patient with the [facility] Transfer line, who states that she has been accepted and patient was discussed with neurosurgery who is comfortable with medical admission. I discussed patient with Dr. Woods hospitalist medicine. At this point in time, she is given Tylenol for a headache that she is experiencing and allowed to eat and take her home medications as she awaits a bed. Should no bed being available, patient will besigned out to the oncoming physician who will admit the patient here as needed. Currently she is in stable condition. History & Record Review Discussion w/independent historian: Patient Lab Data Attestation: I reviewed the patient's lab results. Labs: Laboratory Results - last 24 hr 02/27/25 02/27/25 09:12 09:13 WBC 6.5 RBC 3.59 L Hgb 10.4 L Hct 30.3 L MCV 84.4 MCH 29.0 MCHC 34.3 RDW Std Deviation 44.0 H RDW Coeff of Rosemary 14.5 Plt Count 260 MPV 9.1 Immature Gran % (Auto) 0.600 Neut % (Auto) 69.1 Lymph % (Auto) 20.4 [place] % (Auto) 5.9 Eos % (Auto) 3.4 Baso % (Auto) 0.6 Absolute Neuts (auto) 4.5 Absolute Lymphs (auto) 1.32 Nucleated RBC % 0 Sodium 143 Potassium 4.2 Chloride 106 Carbon Dioxide 26.2 Anion Gap 11 BUN 14 Creatinine 1.16 Estim Creat Clear Calc 58.17 Est GFR (MDRD) Non-Af 56 L BUN/Creatinine Ratio 11.9 Glucose 108 H Calcium 9.6 Radiography Diagnostic Testing: Clinical Impression(s) from Imaging Studies Brain CT 02/27/25 09:16 IMPRESSION: 3.2 cm 4.1 cm by 2.4 cm enhancing mass involving the medial aspect of the right and left frontal lobes more prominent on the left side with surrounding edema and mass effect. A neoplastic process should be ruled out. No evidence of hydrocephalus. Reading Location: [facility] Chest CTA 02/27/25 09:16 IMPRESSION: No evidence of pulmonary embolism. 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 Heterogeneous appearance of the thyroid. Findings suggestive of multiple small hepatic cysts. Reading Location: [facility] Discharge Plan Triage Chief Complaint: Shortness of Breath ED Provider: Olive Yang Dx/Rx/DC Orders Clinical Impression: Frontal mass of brain, Multiple thyroid nodules, Memory loss Prescriptions: No Action omeprazole magnesium [Prilosec OTC] 20 mg tablet,delayed release (DR/EC) 20 mg PO BID Qty: 180 1RF multivitamin Tablet 1 tab PO QAM clobetasol 0.05 % ointment 1 applic topical DAILY PRN (Reason: skin irritation) echinacea 400 mg capsule 400 mg PO DAILY clonazepam [Klonopin] 1 mg tablet 1 - 2 mg PO QHS escitalopram oxalate [Lexapro] 20 mg tablet 20 mg PO DAILY rosuvastatin 10 mg tablet 10 mg PO QHS Rexulti 2 mg tablet 2 mg PO DAILY metoprolol succinate 50 mg tablet extended release 24 hr 50 mg PO BID Qty: 120 2RF triamterene-hydrochlorothiazid 37.5-25 mg tablet 0.5 tab PO QAM Qty: 90 0RF valacyclovir 500 mg tablet 500 mg PO DAILY Qty: 30 5RF Patient Comments: PT TAKES AT BEDTIME Primary Care Provider: Mati Augustine Referrals: Mati Augustine, [Primary Care Provider] - Print Language: Malaysian Disposition Disposition: Acute Care Hospital Discharge Location: [facility] What to do if you have Problems For any increased pain, shortness of breath, bleeding, nausea or vomiting, chestpain, or any unexpected problems, contact your Primary Care Provider. Call [facility] ([phone]) or report to the closest Emergency Room. Call 911 if necessary. 02/27/25 1408 <Electronically signed by Olive Yang MD> Cosigner Signature (if applicable): CC: Dr. Mati Augustine, ~ Signed [facility] Work Phone: [phone] 977-880605-28-2025 History and physical note [facility] Medical Records Department [address] [place] [address] H&P Exam - Hospitalist 02/27/25 1847 MR#: [id number] Acct: [id number] Name: SIERRA PATTON Rep #:[id number] : 1970 54 From: Godwin Lynch DO PCP: Dr. Mati Augustine, Status:RE G ER Location: ED HPI - General General Date of Service: 02/27/25 Chief Complaint: Brain mass HPI Narrative SIERRA PATTON, is a 54 F who presents for an incidental finding of a frontal midline brain mass. Patient was having routine screening for her thyroid nodules with a head CT. The head CT showed a 3.2 x 4.1 x 2.4 cm enhancing mass in the medial aspect of the right and left frontal lobes, more prominent on the left with surrounding edema and mass effect. Patient was sent to the emergency room. While in the emergency room, she received a dose of 10 mg of dexamethasone. And they reached out to [facility] with neurosurgery and the patient was excepted. However they do not have any readilyavailable beds of the hospital service at [facility] was contacted for admission until a bed becomes available at [facility]. Patient states that she has had some mild difficulties that she did notreally attribute to anything particular other than just getting older including occasional difficulty learning to spell common words but these would be transient and being forgetful at times but once again transient. Denied any weakness or any kind of visual c hanges. [facility] Medical History Chronic renal failure Trigger thumb Wears glasses Cancer Depression Anxiety Alcohol use Thyroid disease Easy bruising High cholesterol Restless legs Migraine headache Vertigo History of ulceration Gastric reflux Former smoker History of edema Normal Holter exam History of echocardiogram Trigger thumb of right hand Gammopathy Lesion of spleen Obesity Dermatitis Heart valve problem Polycystic ovaries Heart murmur Hyperlipidemia Hypertension Chronic headaches Emotional disorder Breast lump blood transfusion Bleeding disorder Back problem Anemia Seasonal allergies Home Medications ?Medication ?Instructions ?Recorded ?Last Taken ?Type omeprazole magnesium 20 mg 20 mg PO BID #180 tabs 03/0402/27/25 Rx tablet,delayed release (Prilosec OTC) clobetasol 0.05 % topical ointment 1 applic topical DA SARAH PRN skin 12/05/23 Unknown History irritation metoprolol succinate 50 mg 50 mg PO BID #120 TABLETS 0 11/21/24 02/27/25 Rx tablet,extended release 24 hr multivitamin 1 tab PO QAM 12/11/24 Unknow n History triamterene 37.5 0.5 tab PO QAM #90 tabs 04/0 01/2502/27/25 Rx mg-hydrochlorothiazide 25 mg tablet valacyclovir 500 mg tablet 500 mg PO DAILY #30 TABLETS 01/29/25 Unknown Rx brexpiprazole 2 mg tablet (Rexulti) 2 mg PO DAILY 02/0102/26/25 History clonazepam 1 mg tablet (Klonopin) 1 - 2 mg PO QHS 02/0102/26/25 History echinacea 400 mg capsule 400 mg PO DAILY 02/27/25 History escitalopram oxalate 20 mg tablet 20 mg PO DAILY 02/2702/27/25 History (Lexapro) rosuvastatin 10 mg tablet 10 mg PO QHS 02/27/25 History Allergy/AdvReac Type Severity Reaction Status Date / Time clindamycin Allergy Severe burning & Verified 02/27/25 08:54 watery eyes Sulfa (Sulfonamide Allergy Severe Hives Verified 02/27/25 08:54 Antibiotics) erythromycin base Allergy eye Verified 02/27/25 08:54 redness, watering, swelling Family History Father Alcohol abuse Anemia Anxiety Arthritis Depression Mental disorder Suicide attempt Heart disease Hypertension High cholesterol Mother Anemia Anxiety Arthritis Depression Hypertension High cholesterol Mental disorder Diabetes Grandmother Bleeding disorder Aunt Breast cancer Myocardial infarction Grandfather Myocardial infarction Grandmother CVA (cerebral vascular accident) Surgical History H/O thumb surgery History of loop electrical excision procedure (LEEP) History of bone marrow biopsy History of D&C liposuction to chin History of tonsillectomy and adenoidectomy History of tubal ligation Social History current occupational status: employed current occupation: [employer] Smoking Status: Unknown if ever smoked alcohol intake: current alcohol intake frequency: a few times a month Alcohol type: wine substance use type: does not use caffeine: Yes what type of physical activity do you participate in: walking and other details: rowing frequency: 1-2 times per week ROS ROS Narrative All review of systems were negative except as mentioned above in the history of present illness andthe other review of systems. Vital Signs Vital Signs Vital Signs: 02/27/25 08:51 02/27/25 10:51 02/27/25 11:38 Temperature 36.4 C L Temperature Source Oral Pulse Rate 88 87 Respiratory Rate 16 16 Respiratory Effort Short of Breath Respiratory Depth Normal Respiratory Pattern Normal Blood Pressure 140/90 H 131/85 H Blood Pressure Mean 106 100 Pulse Ox 99 97 Oxygen Delivery Method Room Air Room Air 02/27/25 12:00 02/27/25 14:00 02/27/25 15:40 Temperature Temperature Source Pulse Rate 85 78 70 Respiratory Rate 17 15 16 Respiratory Effort Respiratory Depth Respiratory Pattern Blood Pressure 130/76 H 125/75 H 115/69 Blood Pressure Mean 94 91 84 Pulse Ox 99 97 99 Oxygen Delivery Method Room Air Room Air Room Air 02/27/25 17:00 02/27/25 17:29 Temperature 37.1 C Temperature Source Oral Pulse Rate 95 95 Respiratory Rate 20 H 23 H Respiratory Effort Respiratory Depth Respiratory Pattern Blood Pressure 148/77 H Blood Pressure Mean 100 Pulse Ox 98 96 Oxygen Delivery Method Room Air Room Air Weight Weight: 89.086 kg Body Mass Index (BMI) 35.9 Physical Exam Narrative - Physical Exam General: Alert, Oriented x3, Cooperative HEENT: Atraumatic, PERRLA, EOMI, Normocephalic Oral: Moist Mucosa, No Gingival or Mucosal Lesions/ Ulcerations Neck: Supple, No JVD, Negative Carotid Bruits Lungs: Clear to auscultation, Normal air movement Cardiovascular: Regular rate, Normal S1, Normal S2, No murmurs Abdomen: Bowel Sounds Present, Soft, Non Tender, Non-Distended, No Hepato-splenomegaly Extremities: No clubbing, No cyanosis, No edema, Capillary Refill Less than 3 Seconds Skin: No rashes, No breakdown Musculoskeletal: No Tenderness to Palpation of Joints or Extremities Neurological: Cranial nerves II through XII gross intact. Muscle strength 5-5 in upper and lower extremities. Psych/Mental Status: Normal Affect, Appropriate Results Lab / Micro Data 02/27/25 09:13 02/27/25 09:12 Labs: Laboratory Results - last 24 hr 02/27/25 09:12: Sodium 143, Potassium 4.2, Chloride 106, Carbon Dioxide 26.2, Anion Gap 11, BUN 14,Creatinine 1.16, Estim Creat Clear Calc 58.17, Est GFR (MDRD) Non-Af 56 L, BUN/Creatinine Ratio 11.9, Glucose 108 H, Calcium 9.6 02/27/25 09:13: WBC 6.5, RBC 3.59 L, Hgb 10.4 L, Hct 30.3 L, MCV 84.4, MCH 29.0,MCHC 34.3, RDW Std Deviation 44.0 H, RDW Coeff of Rosemary 14.5, Plt Count 260, MPV 9.1, Immature Gran % (Auto) 0.600, Neut % (Auto) 69.1, Lymph % (Auto) 20.4, [place]% (Auto) 5.9, Eos % (Auto) 3.4, Baso % (Auto) 0.6, Absolute Neuts (auto) 4.5, Absolute Lymphs (auto) 1.32, Nucleated RBC % 0 02/27/25 17:27: POC Glucose 146 H Imaging Radiology Impression Brain CT 02/27/25 09:16 IMPRESSION: 3.2 cm 4.1 cm by 2.4 cm enhancing mass involving the medial aspect of the right and left frontal lobes more prominent on the left side with surrounding edema and mass effect. A neoplastic process should be ruled out. No evidence of hydrocephalus. Reading Location: [facility] Chest CTA 02/27/25 09:16 IMPRESSION: No evidence of pulmonary embolism. 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 Heterogeneous appearance of the thyroid. Findings suggestive of multiple small hepatic cysts. Reading Location: [facility] Assessment & Plan Assessment/Plan (1) Frontal mass of brain: PLAN: Concerning for neoplasm. 5p1t7am frontal midline mass. Patient received 10 mg of IV dexamethasone in emergency room and will continue with 4 mg twice daily given the vasogenic edema. Patient is currently hemodynamically stable [facility] where they can determine further treatment. In regards to some the workup she did undergo a CTA of her chest that show no PEand no evidence of any masses other than some small hepatic cysts PLAN: Plan Chronic conditions * Depression/anxiety/trauma: Continue with her home medications brexpiprazole, clonazepam, escitalopram * Hyperlipidemia: Continue with rosuvastatin VTE prophylaxis with SCDs. Charges/Coding Visit Charges Inpatient E&M: 82047 Init Hosp L2 02/27/25 1852 Cosigner Signature (if applicable): CC: Dr. Mati Augustine DO; Dr. Godwin Lynch DO~ Signed [facility]05-28-2025 Discharge summary [facility] Medical Records Department [address] [place] [address] Emergency Department Summary 02/27/25 MR#: [id number] Acct: [id number] Name: SIERRA PATTON Rep #:[id number] : 1970 54 From: Olive Yang MD PCP: Dr. Mati Augustine DO Status:RE G ER Location: ED ADDENDUM by Dr. Ron Hurley DO on 02/27/25 at 1832 Update: 1830 hrs. 27 Feb 2025 No wheezing at this time I reviewed the patient's ED course and the plan to transfer to [facility]. Unfortunately I am told by their transfer center that they will not have bed availability tonight. As it has been 6 hours since she was excepted I will speak with the hospitalist here regarding admission. She was noting nausea was given Zofran. 02/27/251831 Cosigner Signature (if applicable): cc: Dr. Mati Augustine, DO ~* Signed HPI History of Present Illness Chief Complaint: Shortness of Breath Narrative Narrative: 54-year-old female past medical history of swelling of thyroid for the last 3 years was sent in by her surgeon, Dr. Gene Lanier, for further imaging studies. In discussion with general surgery, patient had CT of the thyroid performed for swelling that she says has been going on for 3 years. She had been referred to him by her primary care provider. It was noted on the CT that there may be a brain mass as well as a questionable pulmonary embolism. Patientstates that she has been short of breath for few weeks to month, and is also having problems with memory loss. She states that she did not remember going tothe hairdresser or driving there the other day. She denies any headaches or nausea a nd vomiting. No exacerbating or alleviating factors. [facility] Medical History Chronic renal failure Trigger thumb Wears glasses Cancer Depression Anxiety Alcohol use Thyroid disease Easy bruising High cholesterol Restless legs Migraine headache Vertigo History of ulceration Gastric reflux Former smoker History of edema Normal Holter exam History of echocardiogram Trigger thumb of right hand Gammopathy Lesion of spleen Obesity Dermatitis Heart valve problem Polycystic ovaries Heart murmur Hyperlipidemia Hypertension Chronic headaches Emotional disorder Breast lump blood transfusion Bleeding disorder Back problem Anemia Seasonal allergies Home Medications ?Medication ?Instructions ?Recorded ?Last Taken ?Type omeprazole magnesium 20 mg 20 mg PO BID #180 tabs 03/0402/27/25 Rx tablet,delayed release (Prilosec OTC) clobetasol 0.05 % topical ointment 1 applic topical DA SARAH PRN skin 12/05/23 Unknown History irritation metoprolol succinate 50 mg 50 mg PO BID #120 TABLETS 0 11/21/24 02/27/25 Rx tablet,extended release 24 hr multivitamin 1 tab PO QAM 12/11/24 Unknow n History triamterene 37.5 0.5 tab PO QAM #90 tabs 04/01/2502/27/25 Rx mg-hydrochlorothiazide 25 mg tablet valacyclovir 500 mg tablet 500 mg PO DAILY #30 TABLETS 01/29/25 Unknown Rx brexpiprazole 2 mg tablet (Rexulti) 2 mg PO DAILY 02/0102/26/25 History clonazepam 1 mg tablet (Klonopin) 1 - 2 mg PO QHS 02/0102/26/25 History echinacea 400 mg capsule 400 mg PO DAILY 02/27/25 History escitalopram oxalate 20 mg tablet 20 mg PO DAILY 02/2702/27/25 History (Lexapro) rosuvastatin 10 mg tablet 10 mg PO QHS 02/27/25 History Allergy/AdvReac Type Severity Reaction Status Date / Time clindamycin Allergy Severe burning & Verified 02/27/25 08:54 watery eyes Sulfa (Sulfonamide Allergy Severe Hives Verified 02/27/25 08:54 Antibiotics) erythromycin base Allergy eye Verified 02/27/25 08:54 redness, watering, swelling Family History Father Alcohol abuse Anemia Anxiety Arthritis Depression Mental disorder Suicide attempt Heart disease Hypertension High cholesterol Mother Anemia Anxiety Arthritis Depression Hypertension High cholesterol Mental disorder Diabetes Grandmother Bleeding disorder Aunt Breast cancer Myocardial infarction Grandfather Myocardial infarction Grandmother CVA (cerebral vascular accident) Surgical History H/O thumb surgery History of loop electrical excision procedure (LEEP) History of bone marrow biopsy History of D&C liposuction to chin History of tonsillectomy and adenoidectomy History of tubal ligation Social History current occupational status: employed current occupation: [employer] Smoking Status: Unknown if ever smoked alcohol intake: current alcohol intake frequency: a few times a month Alcohol type: wine substance use type: does not use caffeine: Yes what type of physical activity do you participate in: walking and other details: rowing frequency: 1-2 times per week ROS ROS ED ROS Narrative Review of systems positive for memory loss and shortness of breath. Positive thyroid swelling for 3years. No headaches, no fevers or chills, no nausea or vomiting. EXAM Physical Exam Narrative Exam Narrative: Afebrile. Vital signs noted. Nontoxic-appearing. Cardiovascular examination feels a regular rate and rhythm. Lungs are clear to auscultation bilaterally. Abdomen is soft and nontender with normal active bowel sounds, no guarding or rebound. Neurological examination shows her to be awake, alert, interactive, answering questions appropriately. Nonfocal, nonlateralizing. Const Vital Signs: 02/27/25 08:51 02/27/25 10:51 02/27/25 11:38 Temperature 97.6 F L Temperature Source Oral Pulse Rate 88 87 Respiratory Rate 16 16 Respiratory Effort Short of Breath Respiratory Depth Normal Respiratory Pattern Normal Blood Pressure 140/90 H 131/85 H Blood Pressure Mean 106 100 Pulse Ox 99 97 Oxygen Delivery Method Room Air Room Air 02/27/25 12:00 Temperature Temperature Source Pulse Rate 85 Respiratory Rate 17 Respiratory Effort Respiratory Depth Respiratory Pattern Blood Pressure 130/76 H Blood Pressure Mean 94 Pulse Ox 99 Oxygen Delivery Method Room Air MDM MDM MDM Narrative Medical decision making narrative: Differential diagnosis includes but not limited to incidental brain mass versus pulmonary embolism versus artifact. I did obtain basic laboratory work, and shehas normal white count of 6.5 with hemoglobin 10.4, hematocrit 30.3, platelet count normal at 260. BMP is remarkable for BUN of 14 creatinine 1.16. Glucose of probably elevated at 108 with normal anion gap of 11. CTA of the chest will be obtained to help rule out pulmonary embolism as well asCT of the brain. I reviewed the report of the outpatient imaging. In review of the radiology report of the CT of the brain, the impression is as follows: IMPRESSION: 3.2 cm 4.1 cm by 2.4 cm enhancing mass involving the medial aspect of the right and left frontal lobes more prominent on the left side with surrounding edema and mass effect. A neoplastic process should be ruled out. No evidence of hydrocephalus. Review of the radiology report of the CT of the chest shows no evidence of a pulmonary embolism, but she may have a pericardial cyst and multiple hepatic cysts. At this point in time, I discussed the patient with the hospitalist and as thereis no available neurosurgery here, patient will require transfer to a tertiary care center. I discussed patient with the [facility] Transfer line, who states that she has been accepted and patient was discussed with haley [place] who is comfortable with medical admission. I discussed patient with Dr. Woods hospitalist medicine. At this point in time, she is given Tylenol for a headache that she is experiencing and allowed to eat and take her home medications as she awaits a bed. Should no bed being available, patient will besigned out to the oncoming physician who will admit the patient here as needed. Currently she is in stable condition. History & Record Review Discussion w/independent historian: Patient Lab Data Attestation: I reviewed the patient's lab results. Labs: Laboratory Results - last 24 hr 02/27/25 02/27/25 09:12 09:13 WBC 6.5 RBC 3.59 L Hgb 10.4 L Hct 30.3 L MCV 84.4 MCH 29.0 MCHC 34.3 RDW Std Deviation 44.0 H RDW Coeff of Rosemary 14.5 Plt Count 260 MPV 9.1 Immature Gran % (Auto) 0.600 Neut % (Auto) 69.1 Lymph % (Auto) 20.4 [place] % (Auto) 5.9 Eos % (Auto) 3.4 Baso % (Auto) 0.6 Absolute Neuts (auto) 4.5 Absolute Lymphs (auto) 1.32 Nucleated RBC % 0 Sodium 143 Potassium 4.2 Chloride 106 Carbon Dioxide 26.2 Anion Gap 11 BUN 14 Creatinine 1.16 Estim Creat Clear Calc 58.17 Est GFR (MDRD) Non-Af 56 L BUN/Creatinine Ratio 11.9 Glucose 108 H Calcium 9.6 Radiography Diagnostic Testing: Clinical Impression(s) from Imaging Studies Brain CT 02/27/25 09:16 IMPRESSION: 3.2 cm 4.1 cm by 2.4 cm enhancing mass involving the medial aspect of the right and left frontal lobes more prominent on the left side with surrounding edema and mass effect. A neoplastic process should be ruled out. No evidence of hydrocephalus. Reading Location: [facility] Chest CTA 02/27/25 09:16 IMPRESSION: No evidence of pulmonary embolism. 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 Heterogeneous appearance of the thyroid. Findings suggestive of multiple small hepatic cysts. Reading Location: [facility] Discharge Plan Triage Chief Complaint: Shortness of Breath ED Provider: Olive Yang Dx/Rx/DC Orders Clinical Impression: Frontal mass of brain, Multiple thyroid nodules, Memory loss Prescriptions: No Action omeprazole magnesium [Prilosec OTC] 20 mg tablet,delayed release (DR/EC) 20 mg PO BID Qty: 180 1RF multivitamin Tablet 1 tab PO QAM clobetasol 0.05 % ointment 1 applic topical DAILY PRN (Reason: skin irritation) echinacea 400 mg capsule 400 mg PO DAILY clonazepam [Klonopin] 1 mg tablet 1 - 2 mg PO QHS escitalopram oxalate [Lexapro] 20 mg tablet 20 mg PO DAILY rosuvastatin 10 mg tablet 10 mg PO QHS Rexulti 2 mg tablet 2 mg PO DAILY metoprolol succinate 50 mg tablet extended release 24 hr 50 mg PO BID Qty: 120 2RF triamterene-hydrochlorothiazid 37.5-25 mg tablet 0.5 tab PO QAM Qty: 90 0RF valacyclovir 500 mg tablet 500 mg PO DAILY Qty: 30 5RF Patient Comments: PT TAKES AT BEDTIME Primary Care Provider: Mati Augustine Referrals: Mati Augustine DO [Primary Care Provider] - Print Language: Malaysian Disposition Disposition: Acute Care Hospital Discharge Location: [facility] What to do if you have Problems For any increased pain, shortness of breath, bleeding, nausea or vomiting, chestpain, or any unexpected problems, contact your Primary Care Provider. Call [facility] ([phone]) or report tothe closest Emergency Room. Call 911 if necessary. 02/27/25 1408 Cosigner Signature (if applicable): CC: Dr. Mati Augustine DO ~ Signed [facility]05-28-2025 Radiology Diagnostic study note [facility] Imaging Services [address] [place], [place] [address] CTA Chest W/WO Contrast MR#: [id number] Acct: [id number] Name: SIERRA PATTON Rep #: [id number] : 1970 F 54 From: Celestino Sanford MD PCP: Dr. Mati Augustine DO Status: RE ER Study:CTA Chest W/WO Contrast Date of Exam: 02/27/25 Exam# [id number] Ordering Dr: Olive Yang MD PROCEDURE: CTA CHEST W/WO CONTRAST 02/27/2025 REASON FOR EXAM: ABNORMAL CT NECK, SHORTNESS OF BREATH TECHNIQUE: CTA axial imaging of the chest with intravenous contrast. Multiplanar and multisequence images wereobtained. PATIENT PREPARATION: Per protocol One or more dose reduction techniques were used (e.g., Automated exposure control, adjustment of the mA and/or kV according to patient size, use of iterative reconstruction technique). CONTRAST: Isovue-300 VOLUME: 100 mL RADIATION DOSE SUMMARY: CTDlvol: 30 mGy DLP: 2100.22 mGycm . COMPARISON: Prior CT scan of the brain done earlier in the day. FINDINGS: Hardware: EKG electrodes are seen. Heterogeneous appearance of the right lobe of the thyroid with cystic spaces. Lymph nodes: Small benign-appearing mediastinal lymph nodes. Heart: Unremarkable Thoracic Aorta: No thoracic aortic aneurysm or dissection. Pulmonary Vessels: No evidence of acute pulmonary emboli through the major subsegmental branches. Lungs and Airways: 2.6 cm x 2.4 cm cystic structure at the level of the aortopulmonary window suggestive of possible pericardial cyst. Pleura: Unremarkable Upper Abdomen: Scattered small hypodensities within the liver suggestive of cysts. Borderline splenomegaly. Bones: Degenerative changes of the thoracic spine. CT/CTA Chest W/WO Contrast IMPRESSION: No evidence of pulmonary embolism. 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 Heterogeneous appearance of the thyroid. Findings suggestive of multiple small hepatic cysts. Reading Location: [place] [address] CC: Dr. Olive Yang MD; Dr. Mati Augustine, ~ Compressor Station Operator: Signed [facility]05-28-2025 Radiology Diagnostic study note [facility] Imaging Services [address] [place] [address] Brain/Head W/WO Contrast MR#: [id number] Acct: [id number] Name: SIERRA PATTON Rep #: [id number] : 1970 F 54 From: Celestino Sanford MD PCP: Dr. Mati Augustine, Status: RE [facility] Study:Brain/Head W/WO Contrast Date of Exam: 02/27/25 Exam# [id number] Ordering Dr: Olive Yang MD PROCEDURE: BRAIN/HEAD W/WO CONTRAST 02/27/2025 REASON FOR EXAM: DIZZINESS, MEMORY LOSS Vertigo. TECHNIQUE: Head CT before and following intravenous contrast. Coronal and Sagittal reconstruction series were provided. CONTRAST: Isovue-300 VOLUME: 100 mL One or more dose reduction techniques were used (e.g., Automated exposure control, adjustment of the mA and/or kV according to patient size, use of iterative reconstruction technique). RADIATION DOSE SUMMARY: CTDlvol: 44.99 mGy DLP: 796.11 mGycm COMPARISON: None FINDINGS: Acute findings: There is evidence of a 4.1 cm x 3.2 cm by 2.6 cm enhancing rounded soft tissue massin the medial aspect of the left frontal lobe extending into the right frontal lobe. There is evidence of surrounding edema more prominent in the left frontal lobe. A neoplastic process should be ruled out. There is evidence of mass effect. Postcontrast images: Enhancing mass as described. CSF Spaces: Normal Sinuses/Mastoids: Mucosal thickening of the ethmoid sinuses. Bones: Unremarkable CT/Brain/Head W/WO Contrast IMPRESSION: 3.2 cm 4.1 cm by 2.4 cm enhancing mass involving the medial aspect of the right and left frontal lobes more prominent on the left side with surrounding edema and mass effect. A neoplastic process should be ruled out. No evidence of hydrocephalus. Reading Location: [place] [address] CC: Dr. Olive Yang MD; Dr. Mati Augustine, DO ~ Compressor Station Operator: Signed [facility] [facility]05-28-2025 Radiology Diagnostic study note [facility] Imaging Services [address] [place] [address] Soft Tissue Neck WITH Contrast MR#: [id number] Acct: [id number] Name: SIERRA PATTON Rep #: [id number] : 1970 F 54 From: Fadia Duffy MD PCP: Dr. Mati Augustine, DO Status: RE G CLI Study:Soft Tissue Neck WITH Contrast Date of Exam: 02/27/25 Exam# [id number] Ordering Dr: Kenzie Lanier MD PROCEDURE: SOFT TISSUE NECK WITH CONTRAST 02/27/2025 REASON FOR EXAM: DIFFICULTY SWALLOWING TECHNIQUE: CT of the soft tissues of the neck from the orbits to the upper mediastinum withintravenous contrast. CONTRAST: 75 cc Isovue-300 One or more dose reduction techniques were used (e.g., Automated exposure control, adjustment of the mA and/or kV according to patient size, use of iterative reconstruction technique). RADIATION DOSE SUMMARY: DLP: 644.56 mGycm COMPARISON: None FINDINGS: Airway: Patent Salivary glands: Unremarkable Lymph nodes: There is no visible pathologic adenopathy by size criteria. Thyroid: There is a 2.6 x 2.2 cm complex right thyroid nodule. There is a 0.5 cm low-density left thyroid nodule. Vasculature: Unremarkable Orbits: Unremarkable. There is a 3.6 x 3.7 cm anterior fossa mass, partly visualized at the midline Paranasal sinuses and mastoids: There is partial opacification of the right ethmoid air cells. Lung apices: Clear visualized portion of the esophagus is unremarkable. Upper mediastinum: There is a 4.6 x 2.0 cm circumscribed density at the left margin of the aortic arch and AP window, Hounsfield units = 3, likely pericardial cyst. Bones: Unremarkable There is a 2.0 by 1.2 cm density at the proximal right main pulmonary artery which may represent acute pulmonary embolus, image 8/122. CT/Soft Tissue Neck WITH Contrast IMPRESSION: There is a 2.6 x 2.2 cm complex right thyroid nodule. There is a 0.5 cm low- density left thyroid nodule. There is a 3.6 x 3.7 cm anterior fossa mass, partly visualized at the midline There is partial opacification of the right ethmoid air cells. There is a 4.6 x 2.0 cm circumscribed density at the left margin of the aortic arch and AP window, Hounsfield units = 3, likely pericardial cyst. There is a 2.0 by 1.2 cm density at the proximal right main pulmonary artery which may represent acute pulmonary embolus, image 8/122. Further evaluation is indicated. Critical results were discussed with Dr. Lanier by Dr. Duffy at the time of dictation. Reading Location: [facility] CC: Dr. Mati Augustine, DO; Dr. Gene Lanier MD ~ Compressor Station Operator: Signed [facility]05-27-2025 NoteInterim History: This patient was seen for evaluation and treatment of her depressive disorder with anxiety complicated by PTSD. Her only physical complaint was some mild akathisia after recent increase of Rexulti to 2 mg daily. She presents today to begin the [facility]. She has been referred by her outpatient therapist, ROBLES Franco. She reports no previous psychiatric hospitalizations. She has not participated in a PHP/IOP program previously. She is presently prescribed escitalopram 20 mg daily and Rexulti 2 mg daily. Her primary care physician has been prescribing these medications. She reports no new medical problems. She has no new allergies. The patient acknowledges chronic, passive suicidal thoughts without plan or intent. She had no thoughts of harming others. She had no delusions or hallucinations. Mood is mildly dysphoric and anxious. Affect is variable and appropriate. Thought processes are mildly ruminative. She ambulates without difficulty. She has mild psychomotor agitation but no other abnormal movements. Sleep is good if she uses clonazepam. Appetite has increased since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 hot shower, hot bath, or a moist towel warmed in a microwave. Try each and use the method that feels best, for 15 to 20 minutes several times a day. Rest the inflamed joint and protect it from movement. You may use ghan-vez-piotmgl ibuprofen or naproxen to treat pain and inflammation, unless another medicine was prescribed. If you can't take these medicines, acetaminophen may help with the pain, butdoes not treat inflammation. If you have chronic [...] or as advised by your healthcare provider [phone] [employer]. [address] [place] [address], [place] [address]. All rights reserved. This information is not intended as a substitute for professional medical care. Always follow yourhealthcare professional's instructions. Additional Information VACCINATE! IT SAVES LIVES! Members of the community who have not yet received the COVID-19 vaccine and would like to receive it can visit one of [facility] vaccine clinics. There are many vaccine clinic locations within the [facility]. For locations and available times, please visit www.gettheshot.coronavirus.[place].gov/. It is important to note that some COVID mobile vaccine clinics are held outdoors and may be canceled in rainy or stormy conditions. To learn more about pediatric vaccinations (ages 5-11), we invite you to visit the [facility] webpage. https://www.[facility].org/pages/7278-Fivit-Kgmxtxbispa-Qyspjqqrib-Theye-Qnw stions.htmlTo learn more about the COVID-19 vaccine, we invite you to visit the CDC website for a list of frequently asked questions. https://www.cdc.gov/coronavirus/2019-ncov/vaccines/faq.html [facility] Patient Portal Access Instructions: Stay connected with your healthcare team and access your personal medical information anytime with the [facility] Patient Portal. If you would like a full copy of your medical records please contact the [facility] Medical Records Department Tuesday through Tuesday between 8a.m. and 4:30p.m. Please follow the directions below to access the portal: 1.Access the email account you provided upon registration to the hospital.2.Look for an invitation email from [facility].3.Open the email and access the invitation link: Accept Invitation to [facility]4.Fill in the required marinelli to create your account. Sign into [email or web address] with your username and password that you [...] you will allow to register on the [facility] Patient Portal for access to your information. You can also access the [facility] Patient Portal on the [employer] sindy. Simply click on Health Records under SNOBSWAP and then click on the [employer] logo. HOW TO SAFELY DISPOSE OF PRESCRIPTION MEDICATIONS Please use one of the following methods to safely dispose of your unused medications. 1.Use a drug disposal kit: the drug disposal pouch allows you to safely discard your old and unuseddrugs. Ask your nurse to give you one when you are discharged.2.Visit a local take-back location: Many local pharmacies and police departments have programs that collect old and unwanted prescriptiondrugs. Call your local pharmacy or go to http://Lumi[employer]old.[employer]/5U4Mc5x to find one close to you.3.Make use of household items: Use cat litter or old coffee grounds to dispose medications if other options arenot available. Mix your drugs with these household products, seal them in an airtight container andthrow it into the garbage. Call [facility]: [phone] to be sure your drugs can be [...] drowsiness, such as benzodiazepines, also known as benzos,including diazepam and alprazolam, muscle relaxants or sleep aids. Never sell or share prescriptionopioids. This is illegal. Store opioids in a [...] aware that I should contact my doctor. 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 Interpreted by: Romulo Jefferson MD Preliminary Report By: Vivek Olivia Electronically signed By Romulo Jeffersno MD Dictated Date: 02/04/2024 7:10:27 AM Prelim Date: 02/04/2024 7:41:59 AM Sign Date: 02/04/2024 7:49:04 AM Ordering Provider: [facility]03-20-2024 History and physical note Author Farhan Lima [facility] December 21, 2023 1:17pm Note Date/Time December 21, 2023 1:1 7pm [facility] Medical Records Department [address] [place] [address] History & Physical Exam 12/21/23 1316 MR#: [id number] Acct: [id number] Name: SIERRA PATTON Rep #:[id number] : 1970 53 From: Farhan Lima MD PCP: Dr. Mati Augustine, DO Status:[facility] [place]: [place] [address] HPI - General HPI Narrative SIERRA PATTON, is a 53 F who presents for right thumb volar A1 elena release.no changes to h and p. ok to proceed. right thumb marked. discussed rab, post opinstructions. no narcotics, otc meds and local anesthetic. ok for gentle ROM after, FU in office 2 days. MR#: [id number] Acct: [id number] Name: SIERRA PATTON Rep #: [id number] : 1970 Provider: Dr. Farhan Lima MD Age/Sex: 53/F Location: [place] Status: Signed with Addenda ADDENDUM by Isela Cho on 11/08/23 at 1354 Office Procedure Documentation entered by Isela Cho 11/08/23 13:54: Ortho Injections Injections Details: Obtained consent for injection. Under sterile conditions, injected the patientsbilateral thumb with 0.5cc kenalog 1cc Bupivacaine in each thumb. The patient tolerated the injection well without any noted complication. Patient should call our office if redness develops, pain worsens or if they have any concerns. Office Meds Kenalog 40 mg/mL suspension for injection Performing Provider: Farhan Lima MD Performing Location: [facility] Administered by: Farhan Lima MD on 11/08/23 13:51 Dose Route Admin Location Dispensed Lot Number Expiration Date NDC [employer] Developer 40 mg intra-articular BL thumbs 1 mL [id number] 03/03/24 8225-0769-89 [facility] Comments: bupivacaine 0.25% .5cc lot : [id number] exp : 11/03/23 ND : 4905-6635-35 Date cc: ~* Signed Intake Vital Signs 09/29/2310:31 11/01/2408:55 Height 5 ft 2 in 5 ft 2 in Weight: 182 lb 8 oz 183 lb BMI 33.3 33.5 BP 120/60 112/80 Blood Pressure Location Lt brachial Lt brachial Position Sitting Sitting Respiration 16 14 Pulse 107 H 92 Pulse Source Monitor Monitor Temp 97.7 F L 98.2 F Temp Source Temporal Temporal Pulse Oximetry (%) 98 99 Oxygen Delivery Method room air room air Intake Visit Reasons: BL HANDS Accompanied by: Self Is patient in pain?: Yes (10) Allergies clindamycin Allergy (Severe, Verified 11/08/23 09:12) burning & watery eyesSulfa (Sulfonamide Antibiotics) Allergy (Severe, Verified 11/08/23 09:12) Hiveserythromycin base Allergy (Verified 11/08/23 09:12) eye redness, watering, swelling Medications clobetasol 0.05 % topical ointment 1 applic topical BID 2 weeks #60 grams 05/06/21 [Rx Confirmed 11/08/23] nystatin 100,000 unit/gram topical powder 1 applic topical BID #60 grams 03/10/22 [Rx Confirmed 11/08/23] rosuvastatin 10 mg tablet 10 mg PO DAILY #90 tabs 12/20/22 [Rx Confirmed 11/08/23] omeprazole magnesium 20 mg tablet,delayed release (Prilosec OTC) 20 mg PO BID #180 tabs 03/22/23 [Rx Confirmed 11/08/23] metoprolol succinate 50 mg tablet,extended release 24 hr 50 mg PO BID #60 tabs 08/16/23 [Rx Confirmed 11/08/23] valacyclovir 500 mg tablet 500 mg PO DAILY #90 tabs 08/17/23 [Rx Confirmed 11/08/23] triamterene 37.5 mg-hydrochlorothiazide 25 mg tablet 1 tab PO QAM #90 tabs 10/12/23 [Rx Confirmed 11/08/23] venlafaxine 150 mg capsule,extended release 24 hr (Effexor XR) 150 mg PO DAILY #90 caps 10/12/23 [Rx Confirmed 11/08/23] clonazepam 1 mg tablet (Klonopin) 1 mg PO QHS #30 tabs 11/01/23 [Rx Confirmed 11/08/23] [facility] Medical History (Updated 11/08/23 @ 09:56 by Farhan Lima MD) Anemia Back problem Bleeding disorder blood transfusion Breast lump Chronic headaches Dermatitis Emotional disorder Gammopathy Heart murmur Heart valve problem Hyperlipidemia Hypertension Lesion of spleen Obesity Polycystic ovaries Seasonal allergies Trigger thumb of right hand Surgical History History of bone marrow biopsy History of D&C History of tonsillectomy and adenoidectomy History of tubal ligation liposuction to chin Family History Father Alcohol abuse Anemia Anxiety Arthritis Depression Mental disorder Suicide attempt Heart disease Hypertension High cholesterolMother Anemia Anxiety Arthritis Depression Hypertension High cholesterol Mental disorder DiabetesGrandmother Bleeding disorderAunt Breast cancer Myocardial infarctionGrandfather Myocardial infarctionGrandmother CVA (cerebral vascular accident) Social History Smoking Status: Former smoker alcohol intake: current alcohol intake frequency: a few times a month Alcohol type: wine substance use type: does not use caffeine: Yes what type of physical activity do you participate in: walking and other details: rowing frequency: 1-2 times per week HPI BL HANDS Details: This documentation accurately reflects the service provided and the decisions made by me, Dr. Farhna Lima MD 11/08/23 0960. Part of today?s visit was documented by [ ], acting as scribe. SIERRA PATTON is a 53 year old F here today for bilateral trigger thumbs. Worse on the right. The patient is interested in repeat cortisone injections aswell as definitive surgical management on the right side. She is using a splinton the right side the right side is much worse quite painful at the base of the thumb. Ortho Exam General General: Yes no acute distress Neurologic: Yes alert and Yes oriented x3 Psychologic: Yes reasonable and appropriate Right Wrist/Hand Skin/Wound: Yes CDI, No Swelling, No Ecchymosis and Yes nail intact A1 elena trigger: Yes (thumb) Right Wrist: Yes ROM-Extension 0-60, ROM-Flexion 0-80, ROM-Pronation 0-80 and ROM-Supination 0-90 Motor: EPL: 5, FDP-2: 5, 1st Dorsal Interosseous: 5 and APB: 5 Sensation: Radial: I, Ulnar: I and Median: I Left Wrist/Hand Skin/Wound: Yes CDI, No Swelling, No Ecchymosis, Yes nail intact, Yes capillary refill normal and No erythema A1 elena trigger: Yes (thumb) Left Wrist: Yes ROM-Extension 0-60, Yes ROM-Flexion 0-80, Yes ROM-Pronation 0- 80and Yes ROM-Supination 0-90 Motor: EPL: 5, FDP-2: 5, 1st Dorsal Interosseous: 5 and APB: 5 Sensation: Radial: I, Ulnar: I and Median: I Coding Level of Care Code Attention Switch Technician Diagnoses Trigger thumb of left hand M65.312 Trigger thumb of right hand M65.311 Comment 54921 and inject tendon x 2 Assessment and Plan Assessment and Plan (1) Trigger thumb of left hand: Status: Acute Plan: 52 F bilat trigger thumbs. Can try rest ice anti-inflammatories activity modifications thumb spica bracing cortisone injections or trigger thumb surgicalrelease. Would like to repeat bilateral trigger finger injections. Also wants to proceed with right thumb volar A1 elena release surgical management. Of the. The patient understands wishes to proceed with surgery. I warned the patient about bowstringing damage to the tendon or other structures like the radial sensory nerve as well. This is generally he had 2 weeks to heal the incision for recovery and 6 weeks avoiding heavy lifting or gripping. Patient understands wished to go ahead with surgery we will delay this until about the end of December due to the cortisone injection today. Pros and cons risks and benefits were discussed with the patient including but not limited to infection, pain, stiffness, bleeding, damage to surrounding structures, neurovascular injury, recurrence or retear, failure or wear of hardware or fixation, instability, fracture, deep vein thrombosis and pulmonary embolism, anesthetic risks, , patient dissatisfaction, need for further surgery and other risks. Patient understood and wished to proceed with surgery,and signed the informed consent documentation. Pros and cons risks and benefits of right thumb A1 elena steroid injection werediscussed. Patient wished to proceed. Risks include but not limited to infection, pain, stiffness, damage to other structures, neurovascular injury, wear further tear of the tendon and other structures such as the skin, bleeding, allergic reaction, acute flare reaction and other risks. Obtained informed consent for injection. Anterior volar aspect of the base of the thumb overlying the A1 elena area wasprepped with chlorhexidine solution allowed to thoroughly dry over 3 minutes. Used Gebauer spray per bottle instructions. Using sterile technique, injected the left thumb A1 elena with 1 cc 0.25% bupivacaine and 1 cc 40 mg/mL kenalog. Bandage placed.The patient tolerated the injection well without any noted complication. Amagon a fluid wave distally. Red flag symptoms were discussed such as redness, swelling, discharge, drainage, pain worsens or if they have anyconcerns to present to the ED or to call the clinic immediately. Pros and cons risks and benefits of left thumb A1 elena steroid injection were discussed. Patient wished to proceed. Risks include but not limited to infection, pain, stiffness, damage to other structures, neurovascular injury, wear further tear of the tendon and other structures such as the skin, bleeding,allergic reaction, acute flare reaction and other risks. Obtained informed consent for injection. Anterior volar aspect of the base of the thumb overlying the A1 elena area wasprepped with chlorhexidine solution allowed to thoroughly dry over 3 minutes. Used Gebauer spray per bottle instructions. Using sterile technique, injected the left thumb A1 elena with 1 cc 0.25% bupivacaine and 1 40 mg/mL kenalog. The patient tolerated the injection well without any noted complication. Amagon afluid wave distally. Bandage placed. Red flag symptoms were discussed such as redness, swelling, discharge, drainage, pain worsens or if they have any concerns to present to the ED or to call the clinic immediately. (2) Trigger thumb of right hand: [facility] Medical History (Updated 12/13/23 @ 15:[address] Yaniv Crawford MD) Alcohol use Anemia Anxiety Back problem Bleeding disorder blood transfusion Breast lump Cancer Chronic headaches Depression Dermatitis Easy bruising Emotional disorder Former smoker Gammopathy Gastric reflux Heart murmur Heart valve problem High cholesterol History of echocardiogram History of edema History of ulceration Hyperlipidemia Hypertension Lesion of spleen Migraine headache Normal Holter exam Obesity Polycystic ovaries Restless legs Seasonal allergies Thyroid disease Trigger thumb of right hand Vertigo Wears glasses Home Medications rosuvastatin 10 mg tablet 10 mg PO DAILY #90 tabs 12/20/22 [Rx Last Taken Unknown] omeprazole magnesium 20 mg tablet,delayed release (Prilosec OTC) 20 mg PO BID #180 tabs 03/22/23 [Rx Last Taken 12/21/23 06:15] valacyclovir 500 mg tablet 500 mg PO DAILY #90 tabs 08/17/23 [Rx Last Taken Unknown] triamterene 37.5 mg-hydrochlorothiazide 25 mg tablet 1 tab PO QAM #90 tabs 10/12/23 [Rx Last Taken Unknown] venlafaxine 150 mg capsule,extended release 24 hr (Effexor XR) 150 mg PO DAILY #90 caps 10/12/23 [Rx Last Taken 12/21/23 06:15] clonazepam 1 mg tablet (Klonopin) 1 mg PO QHS #30 tabs 11/01/23 [Rx Last Taken Unknown] metoprolol succinate 50 mg tablet,extended release 24 hr 50 mg PO BID #60 tabs 11/24/23 [Rx Last Taken 12/21/23 06:15] cariprazine 3 mg capsule (Vraylar) 3 mg PO DAILY 12/05/23 [History Last Taken Unknown] clobetasol 0.05 % topical ointment 1 applic topical DAILY 12/05/23 [History Last Taken Unknown] nystatin 100,000 unit/gram topical powder 1 applic topical BID PRN SKIN 12/05/23[History Last Taken Unknown] Allergy/AdvReac Type Severity Reaction Status Date / Time clindamycin Allergy Severe burning & Verified 12/21/23 11:19 watery eyes Sulfa (Sulfonamide Allergy Severe Hives Verified 12/21/23 11:19 Antibiotics) erythromycin base Allergy eye Verified 12/21/23 11:19 redness, watering, swelling Family History Father Alcohol abuse Anemia Anxiety Arthritis Depression Mental disorder Suicide attempt Heart disease Hypertension High cholesterol Mother Anemia Anxiety Arthritis Depression Hypertension High cholesterol Mental disorder Diabetes Grandmother Bleeding disorder Aunt Breast cancer Myocardial infarction Grandfather Myocardial infarction Grandmother CVA (cerebral vascular accident) Surgical History History of bone marrow biopsy History of D&C History of loop electrical excision procedure (LEEP) History of tonsillectomy and adenoidectomy History of tubal ligation liposuction to chin Social History Smoking Status: Former smoker alcohol intake: current alcohol intake frequency: a few times a month Alcohol type: wine substance use type: does not use caffeine: Yes what type of physical activity do you participate in: walking and other details: rowing frequency: 1-2 times per week Vital Signs Vital Signs Vital Signs: 12/21/23 11:20 12/21/23 11:20 Temperature 97 F L Temperature Source Temporal Pulse Rate 79 Respiratory Rate 16 Respiratory Pattern Normal Blood Pressure 110/66 Blood Pressure Mean 80 Blood Pressure Source Monitor Blood Pressure Position Semi-Fowlers Blood Pressure Location Left Arm Pulse Ox 100 Oxygen Delivery Method Room Air Weight Weight: 179 lb Body Mass Index (BMI) 32.7 12/21/23 1317 <Electronically signed by Farhan Lima MD> Cosigner Signature (if applicable): CC: Dr. Mati Augustine, DO; Dr. Farhan Lima MD~ Signed [facility] Work Phone: 1(417) 723-763403-20-2024 Procedure [facility] 07-18-2023 NotePap Smear Specimen AdequacyOctober 2022 1:32pmComment. Satisfactory for evaluation. Endocervical and/or squamous metaplasticcells (endocervical component)are present.[facility]ED A#[id number] Health System Galion HospitalComment on above:Satisfactory for evaluation. Endocervical and/or squamous metaplasticcells (endocervical component)are present.07-18-2023 NotePap Smear Specimen AdequacyOctober 2022 12:32pmComment.Satisfactory for evaluation. Endocervical and/or squamous metaplasticcells (endocervical component)are present.[facility] A#[id number] Health System [facility] Hospital Comment on above:Satisfactory for evaluation. Endocervical and/or squamous metaplasticcells (endocervical component)are present.04-06-2023 Procedure note [facility]11-09-2022 NotePap Smear Specimen AdequacyNovember 2021 4:30pmComment.Satisfactory for evaluation. Endocervical and/or squamous metaplasticcells (endocervical component)are present.[facility] A#[id number] Health System [facility] Hospital Work Phone: Comment on above:Satisfactory for evaluation. Endocervical and/or squamous metaplasticcells (endocervical component)are present.08-11-2022 NotePap Smear Specimen AdequacyNovember 2021 4:30pm Comment.Satisfactory for evaluation. Endocervical and/or squamous metaplasticcells (endocervical component)are present.[facility] A#[id number] Health System [facility] Work Phone: Comment on above:Satisfactory for evaluation. Endocervical and/or squamous metaplasticcells (endocervical component)are present.08-11-2022 NotePap Smear Specimen AdequacyNovember 2021 4:30pm Comment.Satisfactory for evaluation. Endocervical and/or squamous metaplasticcells (endocervical component)are present.[facility] A#[id number] Work Phone: Comment on above:Satisfactory for evaluation. Endocervical and/or squamous metaplasticcells (endocervical component)are present.Evaluation + Plan note No data available for this section [facility] Evaluation note* Diagnosis Onset Date Resolution Status Foreign body (FB) in soft tissue acute Hyperlipidemia chronic Hypertension chronic Foreign body (FB) in soft tissue acute Hyperlipidemia chronic Hypertension chronic [facility] Work Phone: Evaluation note* Diagnosis Onset Date Resolution Status Foreign body (FB) in soft tissue acute Hyperlipidemia chronic Hypertension chronic Foreign body (FB) in soft tissue acute Hyperlipidemia chronic Hypertension chronic Foreign body (FB) in soft tissue acute Multiple thyroid nodules acu te Cardiac arrhythmia acute Emotional disorder chronic [facility] Work Phone: Evaluation note* Diagnosis Onset Date Resolution Status Foreign body (FB) in soft tissue acute Hyperlipidemia chronic Hypertension chronic Enlarged thyroid noneactive Foreign body (FB) in soft tissue acute Multiple thyroid nodules acu te Cardiac arrhythmia acute Emotional disorder [facility] Work Phone: Evaluation note* Diagnosis Onset Date Resolution Status Gynecologic exam normal acut e Localized hives acute Hypertension chronic [facility] Work Phone: Evaluation noteNo assessment information available [facility] Work Phone: Evaluation note* Diagnosis Onset Date Resolution Status Multiple thyroid nodules acu te [facility] Work Phone: Evaluation note* Diagnosis Onset Date Resolution Status Multiple thyroid nodules acu te Change of voice acute Dysphagia acute Thyroid nodule acute Cardiac arrhythmia acute Numbness and tingling in right hand acute Thyroid nodule acute Trigger thumb of left hand a cute [facility] Work Phone: Evaluation note* Diagnosis Onset Date Resolution Status Multiple thyroid nodules acu te Change of voice acute Dysphagia acute Thyroid nodule acute Cardiac arrhythmia acute Numbness and tingling in right hand acute Thyroid nodule acute Trigger thumb of left hand a cute Bilateral trigger thumb acut e Cardiac arrhythmia acute Cervicogenic headache acute Elevated alkaline phosphatase level acute Hypertension chronic [facility] Work Phone: Evaluation note* Diagnosis Onset Date Resolution Status Change of voice acute Dysphagia acute Thyroid nodule acute Cardiac arrhythmia acute Numbness and tingling in right hand acute Thyroid nodule acute Trigger thumb of left hand a cute Bilateral trigger thumb acut e Cardiac arrhythmia acute Cervicogenic headache acute Elevated alkaline phosphatase level acute Hypertension chronic Lesion of spleen acute Liver mass acute Gammopathy acute Lesion of spleen acute [facility] Work Phone: Evaluation note* Diagnosis Onset Date Resolution Status Bilateral trigger thumb acut e Cardiac arrhythmia acute Cervicogenic headache acute Elevated alkaline phosphatase level acute Hypertension chronic Lesion of spleen acute Liver mass acute Gammopathy acute Lesion of spleen acute [facility] Work Phone: Evaluation note* Diagnosis Onset Date Resolution Status Lesion of spleen acute Liver mass acute Gammopathy acute Lesion of spleen acute Gammopathy acute Lesion of spleen acute Encounter for routine gynecological examination noneactive [facility] Work Phone: Evaluation note* Diagnosis Onset Date Resolution Status Encounter for routine gynecological examination noneactive Gammopathy acute Multiple thyroid nodules acu te Trigger thumb of left hand a cute Emotional disorder chronic [facility] Work Phone: Evaluation note* Diagnosis Onset Date Resolution Status Gammopathy acute Multiple thyroid nodules acu te Trigger thumb of left hand a cute Emotional disorder chronic Depression after menopause a cute Panic attacks acute Trigger thumb of left hand a cute Trigger thumb of right hand acute Depression after menopause a cute Gammopathy acute Chronic insomnia chronic [facility] Work Phone: Evaluation note* Diagnosis Onset Date Resolution Status Multiple thyroid nodules acu te Trigger thumb of left hand a cute Emotional disorder chronic Gammopathy chronic Depression after menopause a cute Panic attacks acute Trigger thumb of left hand a cute Trigger thumb of right hand acute Depression after menopause a cute Chronic insomnia chronic Gammopathy chronic Anemia chronic Gammopathy chronic Lesion of spleen chronic Trigger thumb of right hand acute [facility] Work Phone: Evaluation note* Diagnosis Onset Date Resolution Status Depression after menopause a cute Panic attacks acute Trigger thumb of left hand a cute Trigger thumb of right hand acute Depression after menopause a cute Chronic insomnia chronic Gammopathy chronic Anemia chronic Gammopathy chronic Lesion of spleen chronic Trigger thumb of right hand acute Bilateral trigger thumb acut e Depression after menopause a cute Trigger thumb of left hand a cute Chronic insomnia chronic Bilateral trigger thumb acut e Multiple thyroid nodules chr onic [facility] Work Phone: Evaluation note* Diagnosis GRAYSON (generalized anxiety disorder) Generalized anxiety disorder Major depressive disorder, recurrent episode, moderate (HCC) Major depressive disorder, recurrent episode, moderate PTSD (post-traumatic stress disorder) Posttraumatic stress disorder documented in this encounter [facility] note* Diagnosis Brain mass- Primary Unspecified condition of brain Brain mass Unspecified condition of brain Acute post-operative pain Obesity, Class II, BMI 35-39.9 Obesity, unspecified Hypertension, essential Unspecified essential hypertension Hyperlipidemia, mixed Mixed hyperlipidemia CLAUDETTE (acute kidney injury) Acute kidney failure, unspecified Intracranial meningioma (HCC)- Primary Benign neoplasm of cerebral meninges documented in this encounter [facility] note* Diagnosis Brain mass- Primary Unspecified condition of brain Brain mass Unspecified condition of brain Acute post-operative pain Obesity, Class II, BMI 35-39.9 Obesity, unspecified Hypertension, essential Unspecified essential hypertension Hyperlipidemia, mixed Mixed hyperlipidemia CLAUDETTE (acute kidney injury) Acute kidney failure, unspecified Intracranial meningioma (HCC)- Primary Benign neoplasm of cerebral meninges documented in this encounter [facility] note* Diagnosis Brain mass- Primary Unspecified condition of brain Brain mass Unspecified condition of brain Acute post-operative pain Obesity, Class II, BMI 35-39.9 Obesity, unspecified Hypertension, essential Unspecified essential hypertension Hyperlipidemia, mixed Mixed hyperlipidemia CLAUDETTE (acute kidney injury) Acute kidney failure, unspecified Intracranial meningioma (HCC) Benign neoplasm of cerebral meninges documented in this encounter [facility] note* Diagnosis Brain mass- Primary Unspecified condition of brain Brain mass Unspecified condition of brain Acute post-operative pain Obesity, Class II, BMI 35-39.9 Obesity, unspecified Hypertension, essential Unspecified essential hypertension Hyperlipidemia, mixed Mixed hyperlipidemia CLAUDETTE (acute kidney injury) Acute kidney failure, unspecified Intracranial meningioma (HCC)- Primary Benign neoplasm of cerebral meninges [facility] Godwin Lynch [facility] Note Date/Time February 27, 2025 6:52p m [facility] Medical Records Department [address] [place] [address] H&P Exam - Hospitalist 02/27/25 1847 MR#: [id number] Acct: [id number] Name: SIERRA PATTON Rep #:[id number] 6 : 1970 54 From: Godwin Lynch DO PCP: Dr. Mati Augustine, DO Status:RE G ER Location: ED HPI - General General Date of Service: 02/27/25 Chief Complaint: Brain mass HPI Narrative SIERRA PATTON, is a 54 F who presents for an incidental finding of a frontal midline brain mass. Patient was having routine screening for her thyroid nodules with a head CT. The head CT showed a 3.2 x 4.1 x 2.4 cm enhancing mass in the medial aspect of the right and left frontal lobes, more prominent on the left with surrounding edema and mass effect. Patient was sent to the emergency room. While in the emergency room, she received a dose of 10 mg of dexamethasone. And they reached out to [facility] with neurosurgery and the patient was excepted. However they do not have any readilyavailable beds of the hospital service at [facility] was contacted for admission until a bed becomes available at [facility]. Patient states that she has had some mild difficulties that she did notreally attribute to anything particular other than just getting older including occasional difficulty learning to spell common words but these would be transient and being forgetful at times but once again transient. Denied any weakness or any kind of visual changes. [facility] Medical History Chronic renal failure Trigger thumb Wears glasses Cancer Depression Anxiety Alcohol use Thyroid disease Easy bruising High cholesterol Restless legs Migraine headache Vertigo History of ulceration Gastric reflux Former smoker History of edema Normal Holter exam History of echocardiogram Trigger thumb of right hand Gammopathy Lesion of spleen Obesity Dermatitis Heart valve problem Polycystic ovaries Heart murmur Hyperlipidemia Hypertension Chronic headaches Emotional disorder Breast lump blood transfusion Bleeding disorder Back problem Anemia Seasonal allergies Home Medications ?Medication ?Instructions ?Recorded ?Last Taken ?Type omeprazole magnesium 20 mg 20 mg PO BID #180 tabs 03/0402/27/25 Rx tablet,delayed release (Prilosec OTC) clobetasol 0.05 % topical ointment 1 applic topical DA SARAH PRN skin 12/05/23 Unknown History irritation metoprolol succinate 50 mg 50 mg PO BID #120 TABLETS 0 11/21/24 02/27/25 Rx tablet,extended release 24 hr multivitamin 1 tab PO QAM 12/11/24 Unknow n History triamterene 37.5 0.5 tab PO QAM #90 tabs 04/0 01/2502/27/25 Rx mg-hydrochlorothiazide 25 mg tablet valacyclovir 500 mg tablet 500 mg PO DAILY #30 TABLETS 01/29/25 Unknown Rx brexpiprazole 2 mg tablet (Rexulti) 2 mg PO DAILY 02/0102/26/25 History clonazepam 1 mg tablet (Klonopin) 1 - 2 mg PO QHS 02/0102/26/25 History echinacea 400 mg capsule 400 mg PO DAILY 02/27/25 History escitalopram oxalate 20 mg tablet 20 mg PO DAILY 02/2702/27/25 History (Lexapro) rosuvastatin 10 mg tablet 10 mg PO QHS 02/27/25 History Allergy/AdvReac Type Severity Reaction Status Date / Time clindamycin Allergy Severe burning & Verified 02/27/25 08:54 watery eyes Sulfa (Sulfonamide Allergy Severe Hives Verified 02/27/25 08:54 Antibiotics) erythromycin base Allergy eye Verified 02/27/25 08:54 redness, watering, swelling Family History Father Alcohol abuse Anemia Anxiety Arthritis Depression Mental disorder Suicide attempt Heart disease Hypertension High cholesterol Mother Anemia Anxiety Arthritis Depression Hypertension High cholesterol Mental disorder Diabetes Grandmother Bleeding disorder Aunt Breast cancer Myocardial infarction Grandfather Myocardial infarction Grandmother CVA (cerebral vascular accident) Surgical History H/O thumb surgery History of loop electrical excision procedure (LEEP) History of bone marrow biopsy History of D&C liposuction to chin History of tonsillectomy and adenoidectomy History of tubal ligation Social History current occupational status: employed current occupation: [employer] Smoking Status: Unknown if ever smoked alcohol intake: current alcohol intake frequency: a few times a month Alcohol type: wine substance use type: does not use caffeine: Yes what type of physical activity do you participate in: walking and other details: rowing frequency: 1-2 times per week ROS ROS Narrative All review of systems were negative except as mentioned above in the history of present illness and the other review of systems. Vital Signs Vital Signs Vital Signs: 02/27/25 08:51 02/27/25 10:51 02/27/25 11:38 Temperature 36.4 C L Temperature Source Oral Pulse Rate 88 87 Respiratory Rate 16 16 Respiratory Effort Short of Breath Respiratory Depth Normal Respiratory Pattern Normal Blood Pressure 140/90 H 131/85 H Blood Pressure Mean 106 100 Pulse Ox 99 97 Oxygen Delivery Method Room Air Room Air 02/27/25 12:00 02/27/25 14:00 02/27/25 15:40 Temperature Temperature Source Pulse Rate 85 78 70 Respiratory Rate 17 15 16 Respiratory Effort Respiratory Depth Respiratory Pattern Blood Pressure 130/76 H 125/75 H 115/69 Blood Pressure Mean 94 91 84 Pulse Ox 99 97 99 Oxygen Delivery Method Room Air Room Air Room Air 02/27/25 17:00 02/27/25 17:29 Temperature 37.1 C Temperature Source Oral Pulse Rate 95 95 Respiratory Rate 20 H 23 H Respiratory Effort Respiratory Depth Respiratory Pattern Blood Pressure 148/77 H Blood Pressure Mean 100 Pulse Ox 98 96 Oxygen Delivery Method Room Air Room Air Weight Weight: 89.086 kg Body Mass Index (BMI) 35.9 Physical Exam Narrative - Physical Exam General: Alert, Oriented x3, Cooperative HEENT: Atraumatic, PERRLA, EOMI, Normocephalic Oral: Moist Mucosa, No Gingival or Mucosal Lesions/ Ulcerations Neck: Supple, No JVD, Negative Carotid Bruits Lungs: Clear to auscultation, Normal air movement Cardiovascular: Regular rate, Normal S1, Normal S2, No murmurs Abdomen: Bowel Sounds Present, Soft, Non Tender, Non-Distended, No Hepato-splenomegaly Extremities: No clubbing, No cyanosis, No edema, Capillary Refill Less than 3 Seconds Skin: No rashes, No breakdown Musculoskeletal: No Tenderness to Palpation of Joints or Extremities Neurological: Cranial nerves II through XII gross intact. Muscle strength 5-5 in upper and lower extremities. Psych/Mental Status: Normal Affect, Appropriate Results Lab / Micro Data 02/27/25 09:13 02/27/25 09:12 Labs: Laboratory Results - last 24 hr 02/27/25 09:12: Sodium 143, Potassium 4.2, Chloride 106, Carbon Dioxide 26.2, Anion Gap 11, BUN 14, Creatinine 1.16, Estim Creat Clear Calc 58.17, Est GFR (MDRD) Non-Af 56 L, BUN/Creatinine Ratio 11.9, Glucose 108 H, Calcium 9.6 02/27/25 09:13: WBC 6.5, RBC 3.59 L, Hgb 10.4 L, Hct 30.3 L, MCV 84.4, MCH 29.0,MCHC 34.3, RDW Std Deviation 44.0 H, RDW Coeff of Rosemary 14.5, Plt Count 260, MPV 9.1, Immature Gran % (Auto) 0.600, Neut % (Auto) 69.1, Lymph % (Auto) 20.4, [place]% (Auto) 5.9, Eos % (Auto) 3.4, Baso % (Auto) 0.6, Absolute Neuts (auto) 4.5, Absolute Lymphs (auto) 1.32, Nucleated RBC % 0 02/27/25 17:27: POC Glucose 146 H Imaging Radiology Impression Brain CT 02/27/25 09:16 IMPRESSION: 3.2 cm 4.1 cm by 2.4 cm enhancing mass involving the medial aspect of the right and left frontal lobes more prominent on the left side with surrounding edema and mass effect. A neoplastic process should be ruled out. No evidence of hydrocephalus. Reading Location: [facility] Chest CTA 02/27/25 09:16 IMPRESSION: No evidence of pulmonary embolism. 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 Heterogeneous appearance of the thyroid. Findings suggestive of multiple small hepatic cysts. Reading Location: [facility] Assessment & Plan Assessment/Plan (1) Frontal mass of brain: PLAN: Concerning for neoplasm. [id number] frontal midline mass. Patient received 10 mg of IV dexamethasone in emergency room and will continue with 4 mg twice daily given the vasogenic edema. Patient is currently hemodynamically stable [facility] where they can determine further treatment. In regards to some the workup she did undergo a CTA of her chest that show no PEand no evidence of any masses other than some small hepatic cysts PLAN: Plan Chronic conditions * Depression/anxiety/trauma: Continue with her home medications brexpiprazole, clonazepam, escitalopram * Hyperlipidemia: Continue with rosuvastatin VTE prophylaxis with SCDs. Charges/Coding Visit Charges Inpatient E&M: 18702 Init Hosp L2 02/27/25 5521 <Electronically signed by Godwin Lynch DO> Cosigner Signature (if applicable): CC: Dr. Mati Augustine, DO; Dr. Godwin Lynch, DO~ Signed [facility] Work Phone: Reason for referral (narrative)No reason for referral information availableWPomerene [facility] Work Phone: Reason for visit Narrative* MRI/CT (Routine) - Closed Specialty Diagnoses / Procedures Referred By Gina traore Referred To Contact [facility] Diagnoses Intracranial meningioma (HCC) Procedures MRI BRAIN WO/W IVCON MRI BRAIN BRAIN STEM W/O W/CONTRAST MATERIAL Paige Huddleston, BOWEN.HISTOLOGY TEACHER [address] [facility] [place] [address] Phone: tel: fax: [place] [phone] Referral ID Status Reason Start Date Expiration Date V isits Requested Visits Authorized [id number] Closed Auto-Generate d Referral 04/09/2025 05/04/2026 1 1 [facility] Chief Complaint and Reason for Visit Chief Complaint SCREENING Hypertension 3WK F/U-PINCEL LEAD REMOVAL ENLARGED THYROID Reason for Visit Foreign body (FB) in soft tissue Hyperlipidemia Hypertension Foreign body (FB) in soft tissue Hyperlipidemia Hypertension Chief Complaint Hypertension 3WK F/U-PINCEL LEAD REMOVAL ENLARGED THYROID FB REMOVAL THYROID NODULE 2 M FU Reason for Visit Foreign body (FB) in soft tissue Hyperlipidemia Hypertension Foreign body (FB) in soft tissue Hyperlipidemia Hypertension Foreign body (FB) in soft tissue Multiple thyroid nodules Cardiac arrhythmia Emotional disorder Chief Complaint 3WK F/U-PINCEL LEAD REMOVAL ENLARGED THYROID FB REMOVAL THYROID NODULE 2 M FU MULTIPLE PVC'S ARRHYTHMIA Reason for Visit Foreign body (FB) in soft tissue Hyperlipidemia Hypertension Enlarged thyroid Foreign body (FB) in soft tissue Multiple thyroid nodules Cardiac arrhythmia Emotional disorder Chief Complaint YEARLY/PAP Reason for Visit Gynecologic exam nor mal Localized hives Hypertension Chief Complaint YEARLY/PAP E-ORDER Reason for Visit Gynecologic exam nor mal Localized hives Hypertension Chief Complaint YEARLY/PAP E-ORDER SCREENING Reason for Visit Gynecologic exam nor mal Localized hives Hypertension Chief Complaint SCREENING MULTIPLE THYROID NODULES Chief Complaint SCREENING MULTIPLE THYROID NODULES INT LABS RECALL LETTER- THYROID CHECK Reason for Visit Multiple thyroid nod ules Chief Complaint MULTIPLE THYROID NOD ULES INT LABS RECALL LETTER- THYROID CHECK DIFFICULTY SWALLOWING/CHOKING 6 m fu Reason for Visit Multiple thyroid nod ules Change of voice Dysphagia Thyroid nodule Cardiac arrhythmia Numbness and tingling in right hand Thyroid nodule Trigger thumb of left hand Chief Complaint MULTIPLE THYROID NOD ULES INT LABS RECALL LETTER- THYROID CHECK DIFFICULTY SWALLOWING/CHOKING 6 m fu BL HANDS Follow up Reason for Visit Multiple thyroid nod ules Change of voice Dysphagia Thyroid nodule Cardiac arrhythmia Numbness and tingling in right hand Thyroid nodule Trigger thumb of left hand Bilateral trigger thumb Cardiac arrhythmia Cervicogenic headache Elevated alkaline phosphatase level Hypertension Chief Complaint MULTIPLE THYROID NOD ULES INT LABS RECALL LETTER- THYROID CHECK DIFFICULTY SWALLOWING/CHOKING 6 m fu BL HANDS Follow up ELEVATED LIVER ENZYMES ANESTHESIA OF SKIN, PARESTHESIA OF SKIN ANESTHESIA OF SKIN, PARESTHESIA OF SKIN Reason for Visit Multiple thyroid nod ules Change of voice Dysphagia Thyroid nodule Cardiac arrhythmia Numbness and tingling in right hand Thyroid nodule Trigger thumb of left hand Bilateral trigger thumb Cardiac arrhythmia Cervicogenic headache Elevated alkaline phosphatase level Hypertension Chief Complaint MULTIPLE THYROID NOD ULES INT LABS RECALL LETTER- THYROID CHECK DIFFICULTY SWALLOWING/CHOKING 6 m fu BL HANDS Follow up ELEVATED LIVER ENZYMES ANESTHESIA OF SKIN, PARESTHESIA OF SKIN ANESTHESIA OF SKIN, PARESTHESIA OF SKIN Hepatomegaly, not elsewhere classified Reason for Visit Multiple thyroid nod ules Change of voice Dysphagia Thyroid nodule Cardiac arrhythmia Numbness and tingling in right hand Thyroid nodule Trigger thumb of left hand Bilateral trigger thumb Cardiac arrhythmia Cervicogenic headache Elevated alkaline phosphatase level Hypertension Chief Complaint MULTIPLE THYROID NOD ULES INT LABS RECALL LETTER- THYROID CHECK DIFFICULTY SWALLOWING/CHOKING 6 m fu BL HANDS Follow up ELEVATED LIVER ENZYMES ANESTHESIA OF SKIN, PARESTHESIA OF SKIN ANESTHESIA OF SKIN, PARESTHESIA OF SKIN Hepatomegaly, not elsewhere classified ABNORMAL FINDINGS OF ABDOMINAL REGIONS Reason for Visit Multiple thyroid nod ules Change of voice Dysphagia Thyroid nodule Cardiac arrhythmia Numbness and tingling in right hand Thyroid nodule Trigger thumb of left hand Bilateral trigger thumb Cardiac arrhythmia Cervicogenic headache Elevated alkaline phosphatase level Hypertension Chief Complaint DIFFICULTY SWALLOWIN G/CHOKING 6 m fu BL HANDS Follow up ELEVATED LIVER ENZYMES ANESTHESIA OF SKIN, PARESTHESIA OF SKIN ANESTHESIA OF SKIN, PARESTHESIA OF SKIN Hepatomegaly, not elsewhere classified ABNORMAL FINDINGS OF ABDOMINAL REGIONS NEW-LIVER MASS LIVER MASS REVIEW LABS - REVIEW CT Reason for Visit Change of voice Dysphagia Thyroid nodule Cardiac arrhythmia Numbness and tingling in right hand Thyroid nodule Trigger thumb of left hand Bilateral trigger thumb Cardiac arrhythmia Cervicogenic headache Elevated alkaline phosphatase level Hypertension Lesion of spleen Liver mass Gammopathy Lesion of spleen Chief Complaint BL HANDS Follow up ELEVATED LIVER ENZYMES ANESTHESIA OF SKIN, PARESTHESIA OF SKIN ANESTHESIA OF SKIN, PARESTHESIA OF SKIN Hepatomegaly, not elsewhere classified ABNORMAL FINDINGS OF ABDOMINAL REGIONS NEW-LIVER MASS LIVER MASS REVIEW LABS - REVIEW CT BONEMARROW Reason for Visit Bilateral trigger th umb Cardiac arrhythmia Cervicogenic headache Elevated alkaline phosphatase level Hypertension Lesion of spleen Liver mass Gammopathy Lesion of spleen Chief Complaint ELEVATED LIVER ENZYM ES ANESTHESIA OF SKIN, PARESTHESIA OF SKIN ANESTHESIA OF SKIN, PARESTHESIA OF SKIN Hepatomegaly, not elsewhere classified ABNORMAL FINDINGS OF ABDOMINAL REGIONS NEW-LIVER MASS LIVER MASS REVIEW LABS - REVIEW CT BONEM[place]OW 2WKS NO LABS REVIEW PATH FROM BIOPSY Annual (DRUM TENDER) Reason for Visit Lesion of spleen Liver mass Gammopathy Lesion of spleen Gammopathy Lesion of spleen Encounter for routine gynecological examination Chief Complaint Annual (DRUM TENDER) discuss anxiety meds SCREENING Reason for Visit Encounter for routin e gynecological examination Gammopathy Multiple thyroid nodules Trigger thumb of left hand Emotional disorder Chief Complaint discuss anxiety meds SCREENING 1 M FU BL HANDS 1 M FU D73.89 Reason for Visit Gammopathy Multiple thyroid nodules Trigger thumb of left hand Emotional disorder Depression after menopause Panic attacks Trigger thumb of left hand Trigger thumb of right hand Depression after menopause Gammopathy Chronic insomnia Chief Complaint discuss anxiety meds SCREENING 1 M FU BL HANDS 1 M FU D73.89 6 MO - LABS 1 WK PRIOR - REVIEW CT SCAN Right thumb volar A1 elena release Right thumb volar A1 elena release Reason for Visit Multiple thyroid nod ules Trigger thumb of left hand Emotional disorder Gammopathy Depression after menopause Panic attacks Trigger thumb of left hand Trigger thumb of right hand Depression after menopause Chronic insomnia Gammopathy Anemia Gammopathy Lesion of spleen Trigger thumb of right hand Chief Complaint SCREENING 1 M FU BL HANDS 1 M FU D73.89 6 MO - LABS 1 WK PRIOR - REVIEW CT SCAN Right thumb volar A1 elena release Right thumb volar A1 elena release right hand 1 M FOLLOW UP right hand NODULES 1 YR THYROID RECALL Reason for Visit Depression after men opause Panic attacks Trigger thumb of left hand Trigger thumb of right hand Depression after menopause Chronic insomnia Gammopathy Anemia Gammopathy Lesion of spleen Trigger thumb of right hand Bilateral trigger thumb Depression after menopause Trigger thumb of left hand Chronic insomnia Bilateral trigger thumb Multiple thyroid nodules Chief Complaint Admit Date SCREENING October 11, 2024 7: 05am F/U SPLEEN LESION December 05, 2024 8:23 am 6 MO - LABS (DOING PRIOR) December 05 8:45am 6 MO - NO LABS - REVIEW CT December 11 025 11:08am Reason for Visit Admit Date Anemia December 11, 2024 11: 08am Lesion of spleen December 11, 2024 11: 08am Chief Complaint Admit Date SCREENING October 11, 2024 7: 05am F/U SPLEEN LESION December 05, 2024 8:23 am 6 MO - LABS (DOING PRIOR) December 05 8:45am 6 MO - NO LABS - REVIEW CT December 11 025 11:08am 6 m fu December 25, 2024 8:2 6am THYROID NODULE January 05, 2025 10:1 2am 1 YR THYROID RECALL January 11, 2025 8:0 9am INT LAB ORDERS January 15, 2025 3:5 6pm Reason for Visit Admit Date Anemia December 11, 2024 11: 08am Lesion of spleen December 11, 2024 11: 08am Depression after menopause December 25 025 8:26am Multiple thyroid nodules January 11 8:09am Chief Complaint Admit Date F/U SPLEEN LESION December 05, 2024 8:23 am 6 MO - LABS (DOING PRIOR) December 05 8:45am 6 MO - NO LABS - REVIEW CT December 11 025 11:08am 6 m fu December 25, 2024 8:2 6am THYROID NODULE January 05, 2025 10:1 2am 1 YR THYROID RECALL January 11, 2025 8:0 9am INT LAB ORDERS January 15, 2025 3:5 6pm 6 WK FU February 06, 2025 12:51p m DIFFICULTY SWALLOWING February 27, 2025 6:3 4am BRAIN MASS WITH VASOGENIC EDEMA January 6:42pm sob February 27, 2025 6:47p m Reason for Visit Admit Date Anemia December 11, 2024 11: 08am Lesion of spleen December 11, 2024 11: 08am Depression after menopause December 25, 025 8:26am Multiple thyroid nodules January 11 8:09am Depression after menopause February 06, 2025 12:51pm Dysphagia February 06, 2025 12:51p m Thyroid nodule February 06, 2025 12:51p m Chronic renal failure February 06, 2025 12:5 1pm Frontal mass of brain February 27, 2025 6:4 2pm Memory loss February 27, 2025 6:42p m Multiple thyroid nodules February 27, 2025 6:42pm Chief Complaint Admit Date F/U SPLEEN LESION December 05, 2024 8:23 am 6 MO - LABS (DOING PRIOR) December 05 8:45am 6 MO - NO LABS - REVIEW CT December 11 025 11:08am 6 m fu December 25, 2024 8:2 6am THYROID NODULE January 05, 2025 10:1 2am 1 YR THYROID RECALL January 11, 2025 8:0 9am INT LAB ORDERS January 15, 2025 3:5 6pm 6 WK FU February 06, 2025 12:51p m DIFFICULTY SWALLOWING February 27, 2025 6:3 4am BRAIN MASS WITH VASOGENIC EDEMA January 6:42pm sob February 27, 2025 6:47p m BRAIN MASS WITH VASOGENIC EDEMA January 9:59am Chief Complaint Admit Date F/U SPLEEN LESION December 05, 2024 8:23 am 6 MO - LABS (DOING PRIOR) December 05 8:45am 6 MO - NO LABS - REVIEW CT December 11, 025 11:08am 6 m fu December 25, 2024 8:2 6am THYROID NODULE January 05, 2025 10:1 2am 1 YR THYROID RECALL January 11, 2025 8:0 9am INT LAB ORDERS January 15, 2025 3:5 6pm 6 WK FU February 06, 2025 12:51p m DIFFICULTY SWALLOWING February 27, 2025 6:3 4am BRAIN MASS WITH VASOGENIC EDEMA January 6:42pm sob February 27, 2025 6:47p m BRAIN MASS WITH VASOGENIC EDEMA January 9:59am 2 M FU April 02, 2025 9:13a m Reason for Visit Admit Date Anemia March 11th, 2025 11: 08am Lesion of spleen December 11, 2024 11: 08am Depression after menopause December 25, 2 025 8:26am Multiple thyroid nodules January 11 8:09am Depression after menopause February 06, 2025 12:51pm Dysphagia February 06, 2025 12:51p m Thyroid nodule February 06, 2025 12:51p m Chronic renal failure February 06, 2025 12:5 1pm Frontal mass of brain February 27, 2025 6:4 2pm Memory loss February 27, 2025 6:42p m Multiple thyroid nodules February 27, 2025 6:42pm Benign meningioma of brain April 02 9:13am Depression after menopause April 02 9:13am Chronic renal failure April 02, 2025 9:1 3am Multiple thyroid nodules April 02, 2025 9:13am Chief Complaint Admit Date 6 WK FU February 06, 2025 12:51p m DIFFICULTY SWALLOWING February 27, 2025 6:3 4am BRAIN MASS WITH VASOGENIC EDEMA January 6:42pm sob February 27, 2025 6:47p m BRAIN MASS WITH VASOGENIC EDEMA January 9:59am 2 M FU April 02, 2025 9:13a m 10 weeks since surgery. Swelling all ove r. Painful May 16, 2025 1:48pm Reason for Visit Admit Date Depression after menopause February 06, 2025 12:51pm Dysphagia February 06, 2025 12:51p m Thyroid nodule February 06, 2025 12:51p m Chronic renal failure February 06, 2025 12:5 1pm Frontal mass of brain February 27, 2025 6:4 2pm Memory loss February 27, 2025 6:42p m Multiple thyroid nodules February 27, 2025 6:42pm Depression after menopause April 02 9:13am Chronic renal failure April 02, 2025 9:1 3am Multiple thyroid nodules April 02, 2025 9:13am Benign meningioma of brain April 02 9:13am Family History Relationship Condition Age at Onset Recorded Date/T alejandro father Alcohol abuse Unknown Anemia Unknown Anxiety Unknown Arthritis Unknown Depression Unknown Mental disorder Unknown Attempted suicide Unknown mother Anemia Unknown Hypertension Unknown High blood cholesterol Unknown grandmother Hemorrhagic disorder Unknown aunt Malignant neoplasm of breast Unknown Myocardial infarction Unknown grandfather Myocardial infarction Unknown grandmother Cerebrovascular accident (CVA) Unknown Relationship Condition Age at Onset Recorded Date/T alejandro father Alcohol abuse Unknown Anemia Unknown Anxiety Unknown Arthritis Unknown Depression Unknown Mental disorder Unknown Attempted suicide Unknown Cardiac disease Unknown Hypertension Unknown High blood cholesterol Unknown mother Anemia Unknown Diabetes mellitus Unknown grandmother Hemorrhagic disorder Unknown aunt Malignant neoplasm of breast Unknown Myocardial infarction Unknown grandfather Myocardial infarction Unknown grandmother Cerebrovascular accident (CVA) Unknown Advance Directives Advance Directive Response Recorded Date/ Time Living Will Yes December 05, 2023 2:08pm 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 Yes December 04 2:08pm Advance Directive Response Recorded Date/ Time Name of Medical 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 FRIEND December 05, 2023 3:08pm Living Will Yes December 05, 2023 3:08pm 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 Yes December 04 3:08pm Advance Directive Response Recorded Date/ Time Name of Medical 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 FRIEND December 05, 2023 3:08pm Living Will Yes January 03, 2024 8:09am 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 Yes January 02 8:09am Advance Directive Response Recorded Date/ Time Living Will Yes January 03, 2024 8:09am 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 Yes January 02 8:09am Advance Directive Response Recorded Date/ Time Living Will Yes January 03, 2024 8:09am Do you have a Healthcare 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? Yes January 03, 2024 8:09am Advance Directive Response Recorded Date/ Time Living Will Yes January 03, 2024 8:09am Do you have a Healthcare 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? Yes January 03, 2024 8:09am Do you have a Healthcare 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? No February 27, 2025 11:38am Advance Directive Response Recorded Date/ Time Living Will Yes January 03, 2024 8:09am Do you have a Healthcare 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? Yes January 03, 2024 8:09am Do you have a Healthcare 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? No February 27, 2025 7:22pm Date Activated Date Inactivated Comments 03/06/2025 5:25 PM 03/09/2025 9:40 PM Question Answer Comments Full Code Order Discussed With: Patient Date Activated Date Inactivated Comments 03/01/2025 7:16 AM 03/06/2025 5:25 PM Question Answer Comments Full Code Order Discussed With: Patient Date Activated Date Inactivated Comments 03/06/2025 5:25 PM 03/09/2025 9:40 PM Question Answer Comments Full Code Order Discussed With: Patient Date Activated Date Inactivated Comments 03/01/2025 7:16 AM 03/06/2025 5:25 PM Question Answer Comments Full Code Order Discussed With: Patient Advance Directive Response Recorded Date/ Time Do you have a Healthcare 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? No February 27, 2025 7:22pm Summary Purpose Additional Source Comments Goals (unrecognized section and content) Goals may be documented in a n alternate sectionGoals may be documented in an alternate section No data available for this section Care Teams (unrecognized sec tion and content) Team Status: Active Member Role Status Dates Dr. Mati Augustine , DO Family Provider Active Dr. Mati Augustine , DO Primary Care Provider Active Team Status: Inactive Member Role Status Dates Dr. Mati Augustine , DO Primary Care Provider Active Dr. Gene Lanier MD Attending Provider, Referring P ar Active Team Status: Inactive Member Role Status Dates Dr. Mati Augustine , DO Primary Care Provider, Attend ing Provider Active Team Status: Inactive Member Role Status Dates Dr. Mati Augustine , DO Primary Care Provider, Referr ing Provider Active Dr. Gene Lanier MD Attending Provider Active Team Status: Inactive Member Role Status Dates Dr. Mati Augustine , DO Primary Care Pr ovider, Attending Provider, Referring Provider Active Team Status: Inactive Member Role Status Dates Dr. Mati Augustine , DO Primary Care Provider, Referr ing Provider Active Farhan Lima MD Attending Provider Active Team Status: Active Member Role Status Dates Dr. Mati Augustine , DO Primary Care Pr ovider, Referring Provider, Other Provider Active Dr. Lisa Tilley MD Attending Provider Active Team Status: Active Member Role Status Dates Dr. Mati Augustine , DO Primary Care Pr ovider, Attending Provider, Referring Provider Active Team Status: Inactive Member Role Status Dates Dr. Mati Augustine , DO Primary Care Provider Active Dr. Tami Colmenares MD Attending Provider, Referring Provider Active Team Status: Inactive Member Role Status Dates Dr. Yaniv Crawford MD Attending Provider Active Dr. Mati Augustine , DO Primary Care Provider, Referr ing Provider Active Team Status: Inactive Member Role Status Dates Dr. Mati Augustine , DO Primary Care Provider, Referr ing Provider Active Dr. Yaniv Crawford MD Attending Provider Active Team Status: Active Member Role Status Dates Dr. Mati Augustine , DO Primary Care Provider Active Dr. Yaniv Crawford MD Attending Provider, Referrin g Provider Active Team Status: Inactive Member Role Status Dates Dr. Mati Augustine , DO Primary Care Provider Active Dr. Yaniv Crawford MD Attending Provider, Referrin g Provider Active Team Status: Inactive Member Role Status Dates Dr. Mati Augustine , DO Primary Care Provider Active Dr. Yaniv Crawford MD Attending Provider, Referrin g Provider Active Dr. Rodo Sanford MD Other Provider Active Team Status: Inactive Member Role Status Dates Dr. Mati Augustine , DO Primary Care Provider, Referr ing Provider Active Dr. Tracey Tavera , DO Attending Provider Activ e Team Status: Inactive Member Role Status Dates Dr. Mati Augustine , DO Primary Care Provider Active Dr. Tracey Tavera , DO Attending Provider, Refe rring Provider Active Team Status: Active Member Role Status Dates Dr. Mati Augustine , DO Primary Care Provider, Referr ing Provider Active Farhan Lima MD Attending Provider, Other Provider Active Team Status: Active Member Role Status Dates Dr. Mati Augustine DO Primary Care Provider Active Dr. Gene Lanier MD Attending Provider, Referring P rovider Active Team Status: Active Member Role Status Dates Dr. Mati Augustine DO Primary Care Provider Active Team Status: Inactive Member Role Status Dates Dr. Mati Augustine DO Primary Care Provider Active Start: August 24, 2024 End: August 24, 2024 Dr. Briseida Starks DO Attending Provider Active Start: August 24, 2024 End: August 24, 2024 Dr. Briseida Starks DO Referring Provider Active Start: August 24, 2024 End: August 24, 2024 Team Status: Inactive Member Role Status Dates Dr. Mati Augustine DO Primary Care Provider Active Start: October 11, 2024 End: October 11, 2024 Dr. Yaniv Crawford MD Attending Provider Active Start: October 11, 2024 End: October 11, 2024 Dr. Yaniv Crawford MD Referring Provider Active Start: October 11, 2024 End: October 11, 2024 Team Status: Inactive Member Role Status Dates Dr. Mati Augustine DO Primary Care Provider Active Start: December 05, 2024 End: December 05, 2024 Dr. Yaniv Crawford MD Attending Provider Active Start: December 05, 2024 End: December 05, 2024 Dr. Yaniv Crawford MD Referring Provider Active Start: December 05, 2024 End: December 05, 2024 Team Status: Active Member Role Status Dates Dr. Mati Augustine DO Primary Care Provider Active Start: December 05, 2024 Dr. Yaniv Crawford MD Attending Provider Active Start: December 05, 2024 Dr. Yaniv Crawford MD Referring Provider Active Start: December 05, 2024 Team Status: Inactive Member Role Status Dates Dr. Mati Augustine DO Primary Care Provider Active Start: December 11, 2024 End: December 11, 2024 Dr. Mati Augustine DO Referring Provider Active Start: December 11, 2024 End: December 11, 2024 Dr. Yaniv Crawford MD Attending Provider Active Start: December 11, 2024 End: December 11, 2024 Team Status: Inactive Member Role Status Dates Dr. Mati Augustine DO Primary Care Provider Active Start: December 25, 2024 End: December 25, 2024 Dr. Mati Augustine DO Attending Provider Active Start: December 25, 2024 End: December 25, 2024 Dr. Mati Augustine DO Referring Provider Active Start: December 25, 2024 End: December 25, 2024 Team Status: Inactive Member Role Status Dates Dr. Mati Augustine DO Primary Care Provider Active Start: January 05, 2025 End: January 05, 2025 Dr. Gene Lanier MD Attending Provider Active Start: January 05, 2025 End: January 05, 2025 Dr. Gene Lanier MD Referring Provider Active Start: January 05, 2025 End: January 05, 2025 Team Status: Inactive Member Role Status Dates Dr. Mati Augustine DO Primary Care Provider Active Start: January 11, 2025 End: January 11, 2025 Dr. Mati Augustine DO Referring Provider Active Start: January 11, 2025 End: January 11, 2025 Dr. Gene Lanier MD Attending Provider Active Start: January 11, 2025 End: January 11, 2025 Team Status: Inactive Member Role Status Dates Dr. Mati Augustine DO Primary Care Provider Active Start: January 15, 2025 End: January 15, 2025 Dr. Gene Lanier MD Attending Provider Active Start: January 15, 2025 End: January 15, 2025 Dr. Gene Lanier MD Referring Provider Active Start: January 15, 2025 End: January 15, 2025 Team Status: Inactive Member Role Status Dates Dr. Mati Augustine DO Primary Care Provider Active Start: January 26, 2025 End: January 26, 2025 Dr. Briseida Starks DO Attending Provider Active Start: January 26, 2025 End: January 26, 2025 Dr. Briseida Starks DO Referring Provider Active Start: January 26, 2025 End: January 26, 2025 Team Status: Inactive Member Role Status Dates Dr. Mati Augustine DO Primary Care Provider Active Start: February 06, 2025 End: February 06, 2025 Dr. Mati Augustine DO Attending Provider Active Start: February 06, 2025 End: February 06, 2025 Dr. Mati Augustine DO Referring Provider Active Start: February 06, 2025 End: February 06, 2025 Team Status: Active Member Role Status Dates Dr. Mati Augustine DO Primary Care Provider Active Start: February 27, 2025 Dr. Gene Lanier MD Attending Provider Active Start: February 27, 2025 Dr. Gene Lanier MD Referring Provider Active Start: February 27, 2025 Team Status: Active Member Role Status Dates Dr. Mati Augustine DO Primary Care Provider Active Start: February 27, 2025 Olive Yang MD Emergency Provider Active Star t: February 27, 2025 Dr. Godwin Lynch DO Admit Provider Active Star t: February 27, 2025 Dr. Godwin Lynch DO Attending Provider Active Start: February 27, 2025 Team Status: Active Member Role Status Dates Dr. Mati Augustine DO Primary Care Provider Active Start: February 27, 2025 Olive Yang MD Emergency Provider Active Star t: February 27, 2025 Dr. Godwin Lynch DO Attending Provider Active Start: February 27, 2025 Team Status: Inactive Member Role Status Dates Dr. Mati Augustine DO Primary Care Provider Active Start: February 27, 2025 End: February 28, 2025 Olive Yang MD Emergency Provider Active Star t: February 27, 2025 End: February 28, 2025 Dr. Godwin Lynch DO Admit Provider Active Star t: February 27, 2025 End: February 28, 2025 Dr. Godwin Lynch DO Other Provider Active Star t: February 27, 2025 End: February 28, 2025 Dr. Esteban Boss MD Attending Provider Active Start: February 27, 2025 End: February 28, 2025 Team Status: Active Member Role Status Dates Dr. Mati Augustine DO Primary Care Provider Active Start: February 28, 2025 Olive Yang MD Emergency Provider Active Star t: February 28, 2025 Dr. Godwin Lynch DO Admit Provider Active Star t: February 28, 2025 Dr. Godwin Lynch DO Other Provider Active Star t: February 28, 2025 Dr. Esteban Boss MD Attending Provider Active Start: February 28, 2025 Dr. Esteban Boss MD Other Provider Active Star t: February 28, 2025 Team Status: Inactive Member Role Status Dates Dr. Mati Augustine DO Primary Care Provider Active Start: February 27, 2025 End: February 27, 2025 Dr. Gene Lanier MD Attending Provider Active Start: February 27, 2025 End: February 27, 2025 Dr. Gene Lanier MD Referring Provider Active Start: February 27, 2025 End: February 27, 2025 Damper Fitter Relationship Specialty Start Date End Date Mati Augustine DO PCP - General Family Medicine 02/12/16 Team Status: Active Member Role/Relationship Status Dates Dr. Mati Augustine DO Primary Care Provider Active Team Status: Inactive Member Role/Relationship Status Dates Dr. Mati Augustine DO Primary Care Provider Active Start: December 05, 2024 End: December 05, 2024 Dr. Yaniv Crawford MD Attending Provider Active Start: December 05, 2024 End: December 05, 2024 Dr. Yaniv Crawford MD Referring Provider Active Start: December 05, 2024 End: December 05, 2024 Team Status: Active Member Role/Relationship Status Dates Dr. Mati Augustine DO Primary Care Provider Active Start: December 05, 2024 Dr. Yaniv Crawford MD Attending Provider Active Start: December 05, 2024 Dr. Yaniv Crawford MD Referring Provider Active Start: December 05, 2024 Team Status: Inactive Member Role/Relationship Status Dates Dr. Mati Augustine DO Primary Care Provider Active Start: December 11, 2024 End: December 11, 2024 Dr. Mati Augustine DO Referring Provider Active Start: December 11, 2024 End: December 11, 2024 Dr. Yaniv Crawford MD Attending Provider Active Start: December 11, 2024 End: December 11, 2024 Team Status: Inactive Member Role/Relationship Status Dates Dr. Mati Augustine DO Primary Care Provider Active Start: December 25, 2024 End: December 25, 2024 Dr. Mati Augustine DO Attending Provider Active Start: December 25, 2024 End: December 25, 2024 Dr. Mati Augustine DO Referring Provider Active Start: December 25, 2024 End: December 25, 2024 Team Status: Inactive Member Role/Relationship Status Dates Dr. Mati Augustine DO Primary Care Provider Active Start: January 05, 2025 End: January 05, 2025 Dr. Gene Lanier MD Attending Provider Active Start: January 05, 2025 End: January 05, 2025 Dr. Gene Lanier MD Referring Provider Active Start: January 05, 2025 End: January 05, 2025 Team Status: Inactive Member Role/Relationship Status Dates Dr. Mati Augustine DO Primary Care Provider Active Start: January 11, 2025 End: January 11, 2025 Dr. Mati Augustine DO Referring Provider Active Start: January 11, 2025 End: January 11, 2025 Dr. Gene Lanier MD Attending Provider Active Start: January 11, 2025 End: January 11, 2025 Team Status: Inactive Member Role/Relationship Status Dates Dr. Mati Augustine DO Primary Care Provider Active Start: January 15, 2025 End: January 15, 2025 Dr. Gene Lanier MD Attending Provider Active Start: January 15, 2025 End: January 15, 2025 Dr. Gene Lanier MD Referring Provider Active Start: January 15, 2025 End: January 15, 2025 Team Status: Inactive Member Role/Relationship Status Dates Dr. Mati Augustine DO Primary Care Provider Active Start: January 26, 2025 End: January 26, 2025 Dr. Briseida Starks DO Attending Provider Active Start: January 26, 2025 End: January 26, 2025 Dr. Briseida Starks DO Referring Provider Active Start: January 26, 2025 End: January 26, 2025 Team Status: Inactive Member Role/Relationship Status Dates Dr. Mati Augustine DO Primary Care Provider Active Start: February 06, 2025 End: February 06, 2025 Dr. Mati Augustine DO Attending Provider Active Start: February 06, 2025 End: February 06, 2025 Dr. Mati Augustine DO Referring Provider Active Start: February 06, 2025 End: February 06, 2025 Team Status: Inactive Member Role/Relationship Status Dates Dr. Mati Augustine DO Primary Care Provider Active Start: February 27, 2025 End: February 27, 2025 Dr. Gene Lanier MD Attending Provider Active Start: February 27, 2025 End: February 27, 2025 Dr. Gene Lanier MD Referring Provider Active Start: February 27, 2025 End: February 27, 2025 Team Status: Inactive Member Role/Relationship Status Dates Dr. Mati Augustine DO Primary Care Provider Active Start: February 27, 2025 End: February 28, 2025 Olive Yang MD Emergency Provider Active Star t: February 27, 2025 End: February 28, 2025 Dr. Godwin Lynch DO Admit Provider Active Star t: February 27, 2025 End: February 28, 2025 Dr. Godwin Lynch DO Other Provider Active Star t: February 27, 2025 End: February 28, 2025 Dr. Esteban Boss MD Attending Provider Active Start: February 27, 2025 End: February 28, 2025 Team Status: Active Member Role/Relationship Status Dates Dr. Mati Augustine DO Primary Care Provider Active Start: February 27, 2025 Olive Yang MD Emergency Provider Active Star t: February 27, 2025 Dr. Godwin Lynch DO Attending Provider Active Start: February 27, 2025 Team Status: Active Member Role/Relationship Status Dates Dr. Mati Augustine DO Primary Care Provider Active Start: February 28, 2025 Olive Yang MD Emergency Provider Active Star t: February 28, 2025 Dr. Godwin Lynch , Admit Provider Active Star t: February 28, 2025 Dr. Godwin Lynch , Other Provider Active Star t: February 28, 2025 Dr. Esteban Boss MD Attending Provider Active Start: February 28, 2025 Dr. Esteban Boss MD Other Provider Active Star t: February 28, 2025 Team Status: Inactive Member Role/Relationship Status Dates Dr. Mati Augustine DO Primary Care Provider Active Start: April 02, 2025 End: April 02, 2025 Dr. Mati Augustine DO Attending Provider Active Start: April 02, 2025 End: April 02, 2025 Dr. Mati Augustine DO Referring Provider Active Start: April 02, 2025 End: April 02, 2025 Damper Fitter Relationship Specialty Start Date End Date Mati Augustine DO PCP - General Family Medicine 02/12/16 Damper Fitter Relationship Specialty Start Date End Date Mati Augustine DO PCP - General Family Medicine 02/12/16 Team Status: Inactive Member Role/Relationship Status Dates Dr. Mati Augustine DO Primary Care Provider Active Start: January 26, 2025 End: January 26, 2025 Dr. Briseida Starks DO Attending Provider Active Start: January 26, 2025 End: January 26, 2025 Dr. Briseida Starks DO Referring Provider Active Start: January 26, 2025 End: January 26, 2025 Team Status: Inactive Member Role/Relationship Status Dates Dr. Mati Augustine DO Primary Care Provider Active Start: February 06, 2025 End: February 06, 2025 Dr. Mati Augustine DO Attending Provider Active Start: February 06, 2025 End: February 06, 2025 Dr. Mati Augustine DO Referring Provider Active Start: February 06, 2025 End: February 06, 2025 Team Status: Inactive Member Role/Relationship Status Dates Dr. Mati Augustine DO Primary Care Provider Active Start: February 27, 2025 End: February 27, 2025 Dr. Gene Lanier MD Attending Provider Active Start: February 27, 2025 End: February 27, 2025 Dr. Gene Lanier MD Referring Provider Active Start: February 27, 2025 End: February 27, 2025 Team Status: Inactive Member Role/Relationship Status Dates Dr. Mati Augustine DO Primary Care Provider Active Start: February 27, 2025 End: February 28, 2025 Olive Yang MD Emergency Provider Active Star t: February 27, 2025 End: February 28, 2025 Dr. Godwin Lynch , Admit Provider Active Star t: February 27, 2025 End: February 28, 2025 Dr. Godwin Lynch DO Other Provider Active Star t: February 27, 2025 End: February 28, 2025 Dr. Esteban Boss MD Attending Provider Active Start: February 27, 2025 End: February 28, 2025 Team Status: Active Member Role/Relationship Status Dates Dr. Mati Augustine DO Primary Care Provider Active Start: February 27, 2025 Olive Yang MD Emergency Provider Active Star t: February 27, 2025 Dr. Godwin Lynch DO Attending Provider Active Start: February 27, 2025 Team Status: Active Member Role/Relationship Status Dates Dr. Mati Augustine DO Primary Care Provider Active Start: February 28, 2025 Olive Yang MD Emergency Provider Active Star t: February 28, 2025 Dr. Godwin Lynch DO Admit Provider Active Star t: February 28, 2025 Dr. Godwin Lynch DO Other Provider Active Star t: February 28, 2025 Dr. Esteban Boss MD Attending Provider Active Start: February 28, 2025 Dr. Esteban Boss MD Other Provider Active Star t: February 28, 2025 Team Status: Inactive Member Role/Relationship Status Dates Dr. Mati Augustine DO Primary Care Provider Active Start: April 02, 2025 End: April 02, 2025 Dr. Mati Augustine DO Attending Provider Active Start: April 02, 2025 End: April 02, 2025 Dr. Mati Augustine DO Referring Provider Active Start: April 02, 2025 End: April 02, 2025 Team Status: Inactive Member Role/Relationship Status Dates Dr. Mati Augustine DO Primary Care Provider Active Start: May 16, 2025 End: May 16, 2025 Dr. Mati Augustine DO Referring Provider Active Start: May 16, 2025 End: May 16, 2025 DAVID Paiz Attending Provider Active St art: May 16, 2025 End: May 16, 2025 INFORMATION SOURCE (unrecogn ized section and content) DATE CREATED AUTHOR 02/11/2024 [facility] ([place]) DATE CREATED AUTHOR AUTHOR'S ORGANIZ ATION 03/30/2025 [facility] DATE CREATED AUTHOR AUTHOR'S ORGANIZ ATION 04/03/2025 [facility] DATE CREATED AUTHOR AUTHOR'S ORGANIZ ATION 05/02/2025 [facility] DATE CREATED AUTHOR AUTHOR'S ORGANIZ ATION 05/09/2025 [facility] Reason for Visit (unrecogniz ed section and content) Reason Comments PTSD (Post-Traumatic Stress Disorder) Pt 's chief complaint is not feeling good enough. Reason Comments Established Patient Reason Comments Post Op Reason Comments Established Patient C/o completely losin g sense of smell, but occasionally smelling formaldehyde or acetone, blurred vision, difficulty adjusting from darkness to light, eye drainage, feeling air bubbles between her skin and her skull, L ankle swelling, huge crater in front of R ear Source Comments (unrecognize d section and content) In the event this informatio n is protected by the Federal Confidentiality of Alcohol and Drug Abuse Patient Records regulations: The Federal rules restrict any use of the information to criminally investigate or prosecute any alcohol or drug abuse patient.[facility] the event this information is protected by the Federal Confidentiality of Alcohol and Drug Abuse Patient Records regulations: The Federal rules restrict any use of the information to criminally investigate or prosecute any alcohol or drug abuse patient.[facility] Hospital[facility] the event this information is protected by the [facility] Confidentiality of Alcohol and Drug Abuse Patient Records regulations: The Federal rules restrict any use of the information to criminally investigate or prosecute any alcohol or drug abuse patient.[facility] Hospital[facility] the event this information is protected by the Federal Confidentiality of Alcohol and Drug Abuse Patient Records regulations: The Federal rules restrict any use of the information to criminally investigate or prosecute any alcohol or drug abuse patient.[facility] FOR RECORDS PERTAINING TO PATIENTS WHO [...] BE BASED ON THE PRIMARY CLINICAL RECORDS. [facility] [facility] provides no warranty or guarantee of the accuracy or completeness of information in this document.
== END | disposition home or self-care (01) ==
LOC: LAB 15:41
PROVIDERS: PCP Family Medicine; Referring Provider Physician Assistant; Visit Provider Physician Assistant
DX: E04.2 Nontoxic multinodular goiter (principal); N18.31 Chronic kidney disease, stage 3a; I12.9 Hypertensive chronic kidney disease with stage 1 through stage 4 chronic kidney disease, or unspecified chronic kidney disease
CPT/HCPCS: 36415; 80053; 84443; 85025

== ENCOUNTER → 2025-06-05 | Outpatient (CLI) | payer MEDICARE, SELFPAY ==
--- NOTE | 2025-06-05 13:00 | CYSPIN_PTH ---
PATIENT: [id number] AGE/SX: 54/F ROOM: RE06/05/[address]: Dr. Trevor Lanier MD : 1970 BED: DIS: 06/05/2025 SPEC #: [id number] RECD: 06/05/25 13:45 STATUS: FAMILIA REMirta #: [id number] RADHA: 06/05/25 13:[address]: Trevor Lanier DEPT: CYTOLOGY RECD BY: Eliseo Whitley ENTERED: 06/05/25 14:22 SP TYPE: CYSPIN FL OTHR DR: Dr. Mick Nick DO Tissues: A - Thyroid gland, NOS B - Thyroid gland, NOS Procedures: Pap Stain (control) Special Stain Group II Diff Quik Stain (control) Cytospin Fluid Cytology Other HEADER OPERATION: Fine needle aspiration of thyroid nodule PRE-OP DIAGNOSIS: Right thyroid nodule TISSUE SUBMITTED: A- Right thyroid nodule, B- Right thyroid nodule DIAGNOSIS CYTOLOGY A. Right thyroid nodule, FNA (cytospin, smear x4): - Atypical cells of undetermined significance (TBS III). Note: Afirma testing is submitted. A separate report will follow. B. Right thyroid nodule, FNA (cytospin): - Non-diagnostic (TBS I). - Inadequate cellularity. CYTOLOGY STUDY Slides are reviewed. CYTOLOGY GROSS A. Received is 30 ml of pink-cloudy cytolyt with particles and 4 smears labeled with the patient's name and and designated per the requisition as Right thyroid nodule. Submitted for cytology and cytospin. B. Received is 5 ml of anbs-vyk-nwezla fluid labeled with the patient's name and and designated per the requisition as Right thyroid nodule. Submitted for cytology and cytospin. 06/05/2025 CPT: 81835,[id number] ADDENDUM ADDENDUM ADDENDUM ADDENDUM ADDENDUM ADDENDUM ADDENDUM ADDENDUM ADDENDUM ADDENDUM 07/03/2025 09:32 ADDENDUM 07/03/2025 09:32 ADDENDUM 07/03/2025 09:32 ADDENDUM 07/03/2025 09:32 ADDENDUM 07/03/2025 09:32 AFIRMA RESULTS REPORT RESULTS INTERPRETATION: The result of this 2.7 cm [place] III nodule A is Afirma [facility] benign, which suggests a low risk of cancer of approximately 4%. Treatment like a cytologically benign nodule may be appropriate, including clinical correlation. Afirma XA is not performed on [facility] Benign nodules. TERT promoter region analysis is not performed on [facility] Benign nodules. Please see complete report in e-chart or EMR
== END | disposition home or self-care (01) ==
PROVIDERS: PCP Family Medicine; Visit Provider Surgery
DX: E04.1 Nontoxic single thyroid nodule (principal)
CPT/HCPCS: 88108; 88161; 88313

== ENCOUNTER 2025-07-26 09:17 | Day surgery (SDC) | payer OTHER, SELFPAY ==
--- NOTE | 2025-07-23 07:02 | EKG12_ITS ---
Test Reason : PREOP Blood Pressure : */* mmHG Vent. Rate : 80 BPM Atrial Rate : 80 BPM P-R Int : 102 ms QRS Dur : 100 ms QT Int : 424 ms P-R-T Axes : 39 2 53 degrees QTcB Int : 489 ms Sinus rhythm normal Confirmed by Trevor Gonzalez ([id number]), manager editorial MARIKA DEAL ([id number]) on 07/23/2025 11:06:54 AM Referred By: Trevor Lanier Confirmed By: Trevor Gonzalez
--- NOTE | 2025-07-24 10:47 | PAT.ANESEVAL ---
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 When Was Last Pacemaker Check QUESTION #4 FULL TEXT: You/Your Family Experience fever (hyperthermia) with Anesthesia Last Oral Intake Last Oral intake: Last Oral Intake NPO since Meds taken in AM with sips of water? Meds patient instructed to take am of surgery PONV PONV - environmental services aide: PONV - environmental services aide Female Yes 07/22/25 15:26 HX of Motion Sickness No 07/22/25 15:26 HX of N/V After Surgery Yes 07/22/25 15:26 Non-Smoker Yes 07/22/25 15:26 Duration of Surgery greater Yes 07/22/25 15:26 than 60 minutes Number of Risk Factors 4 07/22/25 15:26 PONV Score Severe Risk 07/22/25 15:26 Height & Weight Height & Weight: Anesthesia: Height & Weight Height 5 ft 2 in 07/19/25 14:27 Respiratory Assessment Respiratory Assessment - environmental services aide: Respiratory Tract Infection Hx - environmental services aide Hx Respiratory Tract Infection No 07/22/25 15:26 STOP Sleep Apnea STOP Sleep Apnea - environmental services aide: STOP Sleep Apnea - environmental services aide Hx Hypertension Yes: CONTROLLED WITH MED 07/22/25 15:26 Hx Sleep Apnea No 07/22/25 15:26 CPAP BIPAP Do you snore loudly (louder Yes 07/22/25 15:26 than talking or can be heard Do you often feel tired/ No 07/22/25 15:26 fatigued/ sleepy during daytime? Has anyone observed you stop No 07/22/25 15:26 breathing during sleep? STOP Results Positive 07/22/25 15:26 QUESTION #5 FULL TEXT : Do you snore loudly (louder than talking or can be heard through closed doors)? 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 Specify any problems Hx of Preganancy in last 3 N/A 07/22/25 15:26 Months Nurse Filling Out Transfusion [facility] 07/22/25 15:26 & Questions: Date: 07/22/25 07/22/25 15:26 Time: 15:29 07/22/25 15:26 Patient unable to answer at this time (ie. confused, unrespo /Reproduction History /Reproductive History - environmental services aide: /Reproductive Hx- environmental services aide Hx Now No 07/22/25 15:26 Gestational Age (in weeks): EDC: Hx Hx Para Hx Section SAB No 07/22/25 15:26 PFSH Medical History (Updated 07/22/25 @ 15:38 by Tracey Christie) CKD (chronic kidney disease), stage III Low iron History of renal disease History of Holter monitoring History of brain tumor Alcohol abuse Kidney disease GERD (gastroesophageal reflux disease) Irregular heart beat Atrial fibrillation Myocardial infarct Chest pain DVT (deep venous thrombosis) Chronic renal failure Trigger thumb Wears glasses Cancer Depression Anxiety Alcohol use Thyroid disease Easy bruising High cholesterol Restless legs Migraine headache Vertigo History of ulceration Gastric reflux Former smoker History of edema Normal Holter exam History of echocardiogram Trigger thumb of right hand Gammopathy Lesion of spleen Obesity Dermatitis Heart valve problem Polycystic ovaries Heart murmur Hyperlipidemia Hypertension Chronic headaches Emotional disorder Breast lump blood transfusion Bleeding disorder Back problem Anemia Seasonal allergies Home Medications Medication Instructions Recorded Last Taken Type omeprazole magnesium 20 mg 20 mg PO BID #180 tabs 03/22/23 02/27/25 Rx tablet,delayed release (Prilosec OTC) clobetasol 0.05 % topical ointment 1 applic topical DAILY PRN skin 12/05/23 Unknown History irritation multivitamin 1 tab PO QAM 12/11/24 Unknown History echinacea 400 mg capsule 400 mg PO DAILY 02/27/25 02/27/25 History rosuvastatin 10 mg tablet 10 mg PO QHS 02/27/25 02/26/25 History triamterene 37.5 1 tab PO QAM #90 tabs 04/02/25 Unknown Rx mg-hydrochlorothiazide 25 mg tablet metoprolol succinate 50 mg 50 mg PO BID #120 TABLETS 05/09/25 Unknown Rx tablet,extended release 24 hr brexpiprazole 2 mg tablet (Rexulti) 2 mg PO DAILY #30 tabs 05/13/25 Unknown Rx escitalopram oxalate 20 mg tablet 20 mg PO DAILY #90 tabs 06/19/25 Unknown Rx (Lexapro) phentermine 37.5 mg tablet 37.5 mg PO QDAY #30 tabs 07/19/25 Unknown Rx (Adipex-P) valacyclovir 500 mg tablet 500 mg PO QHS 07/22/25 Unknown History clonazepam 1 mg tablet 1 - 2 mg (1 - 2 x 1 mg) PO QHS PRN 07/23/25 Unknown Rx panic attack #30 tabs Allergy/AdvReac Type Severity Reaction Status Date / Time clindamycin Allergy Severe burning & Verified 07/22/25 14:49 watery eyes Sulfa (Sulfonamide Allergy Severe Hives Verified 07/22/25 14:49 Antibiotics) erythromycin base Allergy eye Verified 07/22/25 14:49 redness, watering, swelling Family History Father Alcohol abuse Anemia Anxiety Arthritis Depression Mental disorder Suicide attempt Heart disease Hypertension High cholesterol Mother Anemia Anxiety Arthritis Depression Hypertension High cholesterol Mental disorder Diabetes Grandmother Bleeding disorder Aunt Breast cancer Myocardial infarction Grandfather Myocardial infarction Grandmother CVA (cerebral vascular accident) Surgical History H/O thumb surgery History of loop electrical excision procedure (LEEP) History of bone marrow biopsy History of D&C liposuction to chin History of tonsillectomy and adenoidectomy History of tubal ligation Social History current occupational status: employed current occupation: [employer] Smoking Status: Former smoker alcohol intake: current alcohol intake frequency: a few times a month Alcohol type: wine substance use type: does not use caffeine: Yes what type of physical activity do you participate in: walking and other details: rowing frequency: 1-2 times per week Audit: Pertinent Findings Pertinent Findings EKG Perinent findings: 07/23/2025. Sinus rhythm 80 bpm. Echo (EF%) pertinent findings: 03/31/2022. EF 65%. Trivial mitral and tricuspid valve insufficiency. Recommendation Anesthesia Recommendation Anesthesia recommendation: OPTIMIZED for anesthesia
[2025-07-26] VITALS (16 sets, daily range): BP systolic 101–125; BP diastolic 50–77; PULSE 73–90; RESP 14–18; TEMP 36.1–36.6; O2SAT 86–100; BMI 35.4
[2025-07-26] MEDS: Lactated Ringers 1,000 ML 15 ML IV (09:50)
--- NOTE | 2025-07-26 10:29 | PCM.PRE.AN2 ---
ASA Classification* ASA Classification ASA Classification: 3 Assessment & Plan Anesthesia* Anesthesia Assessment Anesthesia Assessment: Discussed sedation and/or anesthesia options, risks, benefits, and alternatives with patient/parents/legal guardian/POA. Questions invited. The patient/parents/legal guardian/POA seems to understand and agrees to proceed with anesthesia plan. Reviewed the physical assessment, medical history, allergy history and patient home medications list prior to surgery/procedure/anesthetic and documented any changes. Performed airway and anesthesia risk assessments. Anesthesia Type Anesthesia Type: General (Consider GlideScope intubation.) History Source History Obtained from:: Patient and Chart Anesthesia Focused Assessment* Temperature: 97 F Pulse Rate: 76 Blood Pressure: 108/77 Respiratory Rate: 16 Pulse Ox: 100 Oxygen Delivery Method: Room Air Airway Assessment Mouth opens: 2 cm Mallampati Score: III Teeth Condition: Missing (Patient is missing couple left lower molars. Rest are tight.) Neck Range of motion (ROM): Limited ROM (Severe Restriction) Comment: Short thyromental distance. Labs Anesthesia Preop lab: CBC WBC, (4.4-11.0) 8.2 K/mm3 05/16/25, 15:44 RBC, (4.2-5.4) 3.70 M/mm3 L 05/16/25, :44 Hgb, (12.0-15.0) 10.5 g/dL L 05/16/25, : Hct, (37-47) 30.5 % L 05/16/25, :44 Plt Count, (150-450) 285 K/mm3 05/16/25, :44 CHEMISTRY Potassium, (3.3-5.1) 3.8 mmol/L 05/16/25, 15:44 Sodium, (133-145) 141 mmol/L 05/16/25, :44 Phosphorus, (2.7-4.5) 3.6 mg/dL 01/26/25, 11:37 BUN, (4-19) 12 mg/dL 05/16/25, 15:44 Creatinine, (0.70-1.20) 0.97 mg/dL 05/16/25, : Glucose, (70-99) 97 mg/dL 05/16/25, : POC Glucose, (74-106) 146 mg/dL H 02/27/25, 17:27 TSH, (0.300-4.200) 1.210 uIU/mL 05/16/25, 15:44 COAG PT, (11.7-14.9) 13.8 SECONDS 06/03/23, 08:08 Pre-Assessment Diagnosis/Proposed Procedure Planned Operative Procedure(s): THYROID LOBECTOMY WITH ISTHMUS AND IONM Anesthesia History 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 When Was Last Pacemaker Check QUESTION #4 FULL TEXT: You/Your Family Experience fever (hyperthermia) with Anesthesia Last Oral Intake Last Oral intake: Last Oral Intake NPO since 07:00 07/26/25 09:51 Meds taken in AM with sips of Yes 07/26/25 09:51 water? 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 Female Yes 07/22/25 15:26 HX of Motion Sickness No 07/22/25 15:26 HX of N/V After Surgery Yes 07/22/25 15:26 Non-Smoker Yes 07/22/25 15:26 Duration of Surgery greater Yes 07/22/25 15:26 than 60 minutes Number of Risk Factors 4 07/22/25 15:26 PONV Score Severe Risk 07/22/25 15:26 Height & Weight Height & Weight: Anesthesia: Height & Weight Height 5 ft 2 in 07/26/25 09:51 Weight: 87.8 kg 07/26/25 09:51 Body Mass Index (BMI) 35.4 07/26/25 09:51 Respiratory Assessment Respiratory Assessment - commercial door installer: Respiratory Tract Infection Hx - commercial door installer Hx Respiratory Tract Infection No 07/22/25 15:26 STOP Sleep Apnea STOP Sleep Apnea - commercial door installer: STOP Sleep Apnea - commercial door installer Hx Hypertension Yes: CONTROLLED WITH MED 07/22/25 15:26 Hx Sleep Apnea No 07/22/25 15:26 CPAP BIPAP Do you snore loudly (louder Yes 07/22/25 15:26 than talking or can be heard Do you often feel tired/ No 07/22/25 15:26 fatigued/ sleepy during daytime? Has anyone observed you stop No 07/22/25 15:26 breathing during sleep? STOP Results Positive 07/22/25 15:26 QUESTION #5 FULL TEXT : Do you snore loudly (louder than talking or can be heard through closed doors)? 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 Specify any problems Hx of Preganancy in last 3 N/A 07/22/25 15:26 Months Nurse Filling Out Transfusion [facility] 07/22/25 15:26 & Questions: Date: 07/22/25 07/22/25 15:26 Time: 15:29 07/22/25 15:26 Patient unable to answer at this time (ie. confused, unrespo /Reproduction History /Reproductive History - commercial door installer: /Reproductive Hx- commercial door installer Hx Now No 07/22/25 15:26 Gestational Age (in weeks): EDC: Hx Hx Para Hx Section SAB No 07/22/25 15:26 Active Medications Active Medications: Current Medications Generic Name Dose Route Start Last Admin Trade Name Freq PRN Reason Stop Dose Admin Lactated Ringer's 1,000 mls @ 15 mls/hr 07/26/25 09:30 07/26/25 09:50 IV 15 mls/hr .Q48H JOEL Administration PFSH Medical History CKD (chronic kidney disease), stage III Low iron History of renal disease History of Holter monitoring History of brain tumor Alcohol abuse Kidney disease GERD (gastroesophageal reflux disease) Irregular heart beat Atrial fibrillation Myocardial infarct Chest pain DVT (deep venous thrombosis) Chronic renal failure Trigger thumb Wears glasses Cancer Depression Anxiety Alcohol use Thyroid disease Easy bruising High cholesterol Restless legs Migraine headache Vertigo History of ulceration Gastric reflux Former smoker History of edema Normal Holter exam History of echocardiogram Trigger thumb of right hand Gammopathy Lesion of spleen Obesity Dermatitis Heart valve problem Polycystic ovaries Heart murmur Hyperlipidemia Hypertension Chronic headaches Emotional disorder Breast lump blood transfusion Bleeding disorder Back problem Anemia Seasonal allergies Home Medications Medication Instructions Recorded Last Taken Type omeprazole magnesium 20 mg 20 mg PO BID #180 tabs 03/22/23 07/26/25 Rx tablet,delayed release (Prilosec OTC) clobetasol 0.05 % topical ointment 1 applic topical DAILY PRN skin 12/05/23 Unknown History irritation multivitamin 1 tab PO QAM 12/11/24 Unknown History echinacea 400 mg capsule 400 mg PO DAILY 02/27/25 02/27/25 History rosuvastatin 10 mg tablet 10 mg PO QHS 02/27/25 02/26/25 History triamterene 37.5 1 tab PO QAM #90 tabs 04/02/25 Unknown Rx mg-hydrochlorothiazide 25 mg tablet metoprolol succinate 50 mg 50 mg PO BID #120 TABLETS 05/09/25 07/26/25 Rx tablet,extended release 24 hr brexpiprazole 2 mg tablet (Rexulti) 2 mg PO DAILY #30 tabs 05/13/25 07/26/25 Rx escitalopram oxalate 20 mg tablet 20 mg PO DAILY #90 tabs 06/19/25 07/26/25 Rx (Lexapro) phentermine 37.5 mg tablet 37.5 mg PO QDAY #30 tabs 07/19/25 07/22/25 Rx (Adipex-P) valacyclovir 500 mg tablet 500 mg PO QHS 07/22/25 Unknown History clonazepam 1 mg tablet 1 - 2 mg (1 - 2 x 1 mg) PO QHS PRN 07/23/25 Unknown Rx panic attack #30 tabs Allergy/AdvReac Type Severity Reaction Status Date / Time clindamycin Allergy Severe burning & Verified 07/26/25 09:40 watery eyes Sulfa (Sulfonamide Allergy Severe Hives Verified 07/26/25 09:40 Antibiotics) erythromycin base Allergy eye Verified 07/26/25 09:40 redness, watering, swelling Family History Father Alcohol abuse Anemia Anxiety Arthritis Depression Mental disorder Suicide attempt Heart disease Hypertension High cholesterol Mother Anemia Anxiety Arthritis Depression Hypertension High cholesterol Mental disorder Diabetes Grandmother Bleeding disorder Aunt Breast cancer Myocardial infarction Grandfather Myocardial infarction Grandmother CVA (cerebral vascular accident) Surgical History H/O thumb surgery History of loop electrical excision procedure (LEEP) History of bone marrow biopsy History of D&C liposuction to chin History of tonsillectomy and adenoidectomy History of tubal ligation Social History current occupational status: employed current occupation: [employer] Smoking Status: Former smoker alcohol intake: current alcohol intake frequency: a few times a month Alcohol type: wine substance use type: does not use caffeine: Yes what type of physical activity do you participate in: walking and other details: rowing frequency: 1-2 times per week Review of Systems (Anesthesia) ROS Narrative System reviewed and no additional complaints, except as documented.
--- NOTE | 2025-07-26 10:33 | PCM.HP.BLA ---
History and Physical Date of Admission: 07/26/25 [facility] [address] [place], [place] [id number] OFFICE VISIT Date of Service: 07/19/25 MR#: [id number] Acct: [id number] Name: ELISA CORREA Rep #: [id number] : 1970 Provider: Dr. 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: No Is patient in pain?: No Allergies clindamycin Allergy (Severe, Verified 07/19/25 14:28) burning & watery eyes Sulfa (Sulfonamide Antibiotics) Allergy (Severe, Verified 07/19/25 14:28) Hives erythromycin base Allergy (Verified 07/19/25 14:28) eye redness, watering, swelling Have you fallen in the past year?: No PFSH Medical History Alcohol abuse Kidney disease GERD (gastroesophageal reflux disease) Irregular heart beat Atrial fibrillation Myocardial infarct Chest pain DVT (deep venous thrombosis) Chronic renal failure Trigger thumb Wears glasses Cancer Depression Anxiety Alcohol use Thyroid disease Easy bruising High cholesterol Restless legs Migraine headache Vertigo History of ulceration Gastric reflux Former smoker History of edema Normal Holter exam History of echocardiogram Trigger thumb of right hand Gammopathy Lesion of spleen Obesity Dermatitis Heart valve problem Polycystic ovaries Heart murmur Hyperlipidemia Hypertension Chronic headaches Emotional disorder Breast lump blood transfusion Bleeding disorder Back problem Anemia Seasonal allergies Surgical History H/O thumb surgery History of loop electrical excision procedure (LEEP) History of bone marrow biopsy History of D&C liposuction to chin History of tonsillectomy and adenoidectomy History of tubal ligation Family History Father Alcohol abuse Anemia Anxiety Arthritis Depression Mental disorder Suicide attempt Heart disease Hypertension High cholesterol Mother Anemia Anxiety Arthritis Depression Hypertension High cholesterol Mental disorder Diabetes Grandmother Bleeding disorder Aunt Breast cancer Myocardial infarction Grandfather Myocardial infarction Grandmother CVA (cerebral vascular accident) Social History current occupational status: employed current occupation: [email or web address] Smoking Status: Unknown if ever smoked alcohol intake: current alcohol intake frequency: a few times a month Alcohol type: wine substance use type: does not use caffeine: Yes what type of physical activity do you participate in: walking and other details: rowing frequency: 1-2 times per week HPI HPI HPI: Patient is a 54-year-old female who established with nd for a diagnosis of multiple thyroid nodules and is status post FNA 06/05/2025. She was last seen 06/05/2025. She shares that following the biopsy (including aspiration) there was a "smidge" of a difference with her symptoms and she goes on to state that for 3 to 4 days she "felt really good", however, her symptoms have now returned. She denies any recent health updates but does report starting a new job. Below is recapitulated from patient's prior visit for ease of review: Patient is a 54-year-old female who established with nd for a diagnosis of multiple thyroid nodules and is status post FNA 01/21/2023. Her last visit 01/11/2025. Unfortunately during her workup for compressive symptoms she was found to demonstrate evidence of a possible pulmonary embolism as well as a brain mass. Repeat testing did not confirm the presence of a pulmonary embolism, however, the brain mass was a true finding and patient was immediately evaluated at a tertiary center before ultimately undergoing craniectomy with excision of a benign meningioma. She states that she is now 13 weeks postop. She is pleased with her recovery. She continues to complain of swallowing difficulty with both food and drink. She denies any voice changes. She denies any new dry cough. Below is recapitulated from patient's prior visit for ease review: Patient is a 54-year-old female who established with me for a diagnosis of multiple thyroid nodules and is status post FNA 01/21/2023. Her last visit was 01/25/2024. She shares with me that she could feel her nodule has grown. By this she states that she has experienced some trouble swallowing and concluded that she must either need to once again go for EGD with dilation or this was attributable to her nodule. She then saw her PCP who confirmed her suspicion that it had grown. She describes her swallowing difficulty she notes that it is "catching higher up". She denies any hoarseness. She denies any cough. Lastly she just that there is some increased tenderness of her gland from time to time. Outside of immediate concerns for her thyroid patient states that she has experienced a weight gain in response to changing around her antidepressants. Additionally she continues to feel fatigued. Lastly she notes that she has developed "terrible" hot flashes despite not having a period since 2020. Patient did go for repeat ultrasound imaging of her thyroid 01/05/2025. This identified some growth of her right sided thyroid nodule but it was rated "not suspicious" TI-RADS 2. ROS General General: Yes weight change and fatigue; No appetite, colon cancer, breast cancer or weakness HEENT HEENT: Yes difficulty swallowing and swollen glands; No eye injury, eye surgery or hoarseness Endo Endocrine: No thyroid disease, diabetes mellitus, thyroid cancer, Hair loss, heat intolerance or cold intolerance Skin Skin: No rash or changing moles Musc Musculoskeletal: No back problems, arthritis, rheumatoid arthritis, gout or joint pain Cardio Cardiovascular: Yes high blood pressure; No murmur, pacemaker, heart disease, atrial fibrillation, heart attack, heart stent, palpitations, shortness of breath with exertion or chest pain Psych Psychiatric: Yes depression and anxiety; No hearing voices Resp Respiratory: No shortness of breath, No sleep apnea, No cough, No COPD, No asthma, No emphysema and No wheezing Gastro Gastrointestinal: No abdominal pain, No nausea or vomiting, No diarrhea, No constipation, No blood in stool, No acid reflux, No hemorrhoids, No ulcers, No gallbladder problem and No black,tarry stools Min Hematologic: No blood thinners, No blood disorders, No bleeding, No anemia and No blood clots Neuro Neurologic: No numbness, No tingling and No weakness Exam Const General: cooperative and comfortable Orientation: alert, awake and oriented x3 Neck Other: Stable neck exam with mild tenderness on palpation. Assessment and Plan Assessment and Plan (1) Thyroid nodule: Status: Chronic Comment: Patient 54-year-old female with right TI-RADS 3 nodule that is significantly enlarged since prior biopsy 2 years ago. She also describes more compressive symptoms–particularly dysphagia. CT imaging of the neck does show some leftward deviation of the trachea and I shared with her I remain a little bit skeptical that her right sided thyroid nodule is causing enough esophageal compression to cause her the symptoms described. However, she has undergone EGD with dilation with no relief of symptoms and CT does seem to suggest that her anterior vertebral column is at least partially compressing the posterior esophagus. Therefore I reasoned that we could consider a right sided thyroid lobectomy to try to alleviate this compressive force. Patient is inclined to do so but given the interval growth we will proceed with repeat thyroid biopsy today. Procedure was undertaken uncomplicated fashion and full details are given in the "procedures" section of this note. Update 07/19/2025: Patient is a 54-year-old female who presents for discussions around planned right thyroid lobectomy with isthmusectomy using intraoperative nerve monitoring after declaring compressive symptoms. Biopsy completed at her last visit was confirmed as a [place] 2 cytopathology designation. I spent the bulk of today's visit discussing the planned operation and its attendant risks–specifically those of recurrent laryngeal nerve injury and hypoparathyroidism. I shared how intraoperative nerve monitoring is used to minimize the risk for recurrent laryngeal nerve injury and how loupe magnification is employed to minimize both risks through identification of both the nerve and parathyroid glands. I shared that I would intend for this to be an outpatient procedure with some postop observation prior to discharge. I stressed the patient will need to limit activity in the first week following surgery to minimize her risk for postoperative bleeding. She acknowledges understanding. Plan: Right thyroid lobectomy for isthmusectomy using intraoperative nerve monitoring tentatively slated for 07/16/2025 (2) Dysphagia: Status: Chronic Comment: s/p egd and dilation w/o improvement. After aspirating for cellular material he aspirated the cystic component of the nodule and have asked patient to gauge her symptomatic response with this intervention. I have examined the patient and the H&P has been reviewed. There are no clinical changes since date of exam. Patient presents today for right thyroid lobectomy with intraoperative nerve monitoring as discussed in greater detail above. Indication being ongoing compressive symptoms. Briefly discussed details related to the procedure and inquired about any further questions. Patient offers none. I did go on to reiterate postoperative expectations for icing and wound care. Patient confirms understanding. Consents were confirmed. Proceed to operating room for right thyroid lobectomy.
[2025-07-26] MEDS: Midazolam 2 MG/2 ML Syringe IV (10:45)
[2025-07-26] MEDS: PROPOFOL 167.9 MG IV (10:50)
[2025-07-26] MEDS: Lidocaine 1% (5 ml sdv) 5 ML Vial 8 ML IV (10:50)
--- NOTE | 2025-07-26 11:00 | THYROID_PTH ---
PATIENT: ELISA CORREA LOC: [facility] U#:[id number] AGE/SX: 54/F ROOM: RE07/26/[address]: Dr. Trevor Lanier MD : 1970 BED: DIS: 07/26/2025 SPEC #: [id number] RECD: 07/26/25 12:36 STATUS: FAMILIA REMirta #: [id number] RADHA: 07/26/25 11:[address]: Trevor Lanier DEPT: SURGICAL PATHOLOGY RECD BY: Eliseo Whitley ENTERED: 07/26/25 13:49 SP TYPE: THYROID OTHR DR: Dr. Mick Nick, Tissues: A - Parathyroid B - Thyroid gland, NOS Procedures: Frozen Section (charge) Surgery Specimen Level IV Surgery Specimen Level V HEADER OPERATION: Thyroid lobectomy with isthmectomy, autotransplantaiton PRE-OP DIAGNOSIS: Thyroid nodule, dysphagia TISSUE SUBMITTED: A- Parathyroid, B- Right thyroid lobe FROZEN SECTION DIAGNOSIS A. Rule out parathyroid: Parathyroid tissue - 0.006gm. 07/26/2025 MICROSCOPIC DIAGNOSIS A. Parathyroid, excision: - Parathyroid gland (0.006 gram). B. Thyroid, right lobe and isthmus, thyroid lobectomy with isthmectomy: - Follicular adenoma, Hurthle cell type - see Comment. - Small benign lymph node x2. COMMENT Selected slides/images were reviewed in intradepartmental consultation by Dr Maria T Flannery (Community pathology division, [facility]). MICROSCOPIC DESCRIPTION Slides are reviewed. GROSS DESCRIPTION A. Received fresh for frozen section diagnosis labeled patient's name and date of . Designated as "R/oh parathyroid-right" is a 0.006 g parathyroid gland which is entirely submitted for frozen section diagnosis and subsequently placed in cassette A1 for permanent sections. B. Received in formalin labeled with the patient's name and date of . Designated as " right thyroid lobe" is a 13.7 g hemithyroidectomy with a suture designated as "right superior pole". The specimen is comprised of a 4.0 x 3.2 x 2.4 cm somewhat bulbous right lobe and a 1.9 x 1.9 x 0.7 cm cauterized isthmus. The specimen is inked as follows: Right lobe, anterior: GreenIsthmus, anterior: OrangePosterior: Black The specimen is serially sectioned from superior to inferior revealing dark red parenchyma with a 2.6 x 2.5 x 2.5 cm encapsulated nodule in the mid to inferior right poles, containing gibson to light brown, solid to somewhat grumous material; the nodule grossly abuts the overlying anterior and posterior capsule of the lobe. There is a 0.5 x 0.4 x 0.3 cm nodule located 0.2 cm adjacent to the encapsulated nodule. Both nodules are located >1 cm from the isthmus margin. Entirely submitted, sequentially, from superior to inferior, in 12 cassettes as follows: B1: Right superior lobe, perpendicularB2: Right superior lobeB3: Encapsulated noduleB4-B5: Encapsulated nodule with adjacent, smaller noduleB6-B7: Encapsulated noduleB8-B9: Encapsulated nodule, right inferior lobe, [id number]: Right inferior lobe, [id number]: Isthmus, perpendicular FL 07/26/2025 CPT:23903,36558,02167
[2025-07-26] MEDS: fentaNYL 100 MCG/2 ML Ampul IV (11:16)
--- NOTE | 2025-07-26 13:39 | OP.PCM_ITS ---
Operative Report (Standard) Operative Information Date of Procedure: 07/26/25 Pre-Operative Diagnosis: Right thyroid nodules with compressive symptoms Post-Operative Diagnosis: Same Surgery/Procedure Performed: 1. Right thyroid lobectomy with isthmusectomy using intraoperative nerve monitoring 2. Autotransplantation of parathyroid ship rigger: Yes Clean Rice Grader And Reel Tender: Shanika Henning Tasks completed by advertising assistant manager: Opening & closing Type of Anesthesia: General/Supplemental RN Documented Start/Stop Times: Operation Date: 07/26/25 11:00 Case Time Into Pre-Op 07/26/25 09:29 Out of Pre-Op 07/26/25 10:42 Anesthesia Start 07/26/25 10:57 Into Room 07/26/25 10:57 Procedure Start 07/26/25 11:23 Procedure End 07/26/25 13:41 Anesthesia End 07/26/25 13:54 Out of Room 07/26/25 13:54 Into Recovery 07/26/25 13:56 Out of Recovery 07/26/25 16:02 Into Phase II Recovery 07/26/25 16:03 Out of Phase II 07/26/25 17:00 Procedure Start Time: 11:23 Procedure Stop Time: 13:41 Select all DRAINS/GRAFTS/IMPLANTS that apply: None Estimated Blood Loss: 15 Specimen collected: Yes Description of specimen(s) removed: 1. Right thyroid lobe and isthmus (stitch lagunas right superior pole) 2. Frozen section to confirm parathyroid tissue (pathology confirmed) Description of surgery: After appropriate identification in the preoperative holding area, the patient was brought to the operating room where she was positioned supine on the operating room table. Induction of general endotracheal anesthetic was begun and a NIMS tube was placed under glidescope view to confirm coaptation with the vocal cords anteriorly. Tube was then secured and the patient was positioned with a shoulder roll so that her head was in extension but supported. The Nims electrodes were placed and connected to the monitor. We had appropriate resistance showing on the monitor and tapping at the level of the cricoid produce a graphical representation of the impulse on the monitor. Patient's neck was then prepped and draped in usual sterile fashion and a formal timeout was conducted from those present. The lowest skin fold to the sternal notch was selected for incision site (this resided approximately 2 fingerbreadths cephalad to the notch). An incision was extended for 2.5 cm on either side of midline. Electrocautery was used to deepen this incision through the level of the platysma. Subplatysmal flaps were raised with the use of electrocautery and blunt dissection. The strap muscles were then divided along the medial raphe bringing us down to the level of the thyroid. Capsular attachments to the thyroid were divided with the use of LigaSure. Retractors were placed providing visualization of the right superior pole of the thyroid. The vessels of the superior pole were sequentially ligated with the use of the LigaSure device. As we moved towards the thyroid gland away from the pole vessels, I identified a small oval shaped area that lie atop the thyroid capsule and appeared suggestive of parathyroid tissue. Because it presented in a location that was unable to be preserved on the [place] vascular pedicles it was circumferentially dissected and amputated free of the specimen with LigaSure energy. A small sample was submitted for frozen section while the majority of it was kept intact on a moistened Telfa gauze. We then moved inferiorly and divided those polar vessels with LigaSure. No inferior parathyroid gland was grossly visualized. With the poles freed the thyroid was mobilized medially. I bluntly the remaining strap muscle fibers from the thyroid capsule and using blunt dissection parallel to the presumed course of the recurrent laryngeal nerve and exposed the tracheoesophageal groove. This was somewhat more challenging than average due to large size of patient's inferior pole nodule and adhesions posteriorly. I continued with a capsular dissection and relieving the adhesions to the trachea. Ultimately I did visualize the recurrent laryngeal nerve and confirmed a strong Nims signal. The nerve positively identified, I relieved the attachments of the thyroid gland to the underlying trachea with the use of LigaSure. As we again approached the nerve insertion of the cricothyroid membrane, I elected to leave a minuscule amount of thyroid tissue intact using 4-0 silk ligatures to secure this tissue. The recurrent laryngeal nerve signal was checked prior to the division of any thyroid tissue. In the cephalad portion of the incision, I encountered what appeared to represent a pyramidal lobe and took this en bloc with the specimen. Once I had assured clearance from the nerve, the remaining thyroid tissue was removed from the anterior surface of the trachea with electrocautery to include the entirety of the thyroid isthmus. The specimen was divided with the LigaSure device, marked at the superior pole with a suture, and passed off the field for permanent section. Prior to completion of the thyroid lobectomy I was called by pathology and notified that the submitted frozen section indeed represented parathyroid tissue. The remaining back table specimen was then marked for later reimplantation in the right sternohyoid muscle. Pressure was applied to the surgical cavity where the thyroid had resided and there was some slight oozing along the anterior surface of the trachea well away from the recurrent laryngeal nerve where selective electrocautery was applied. Closer to the nerve there was some additional oozing and Surgicel hemostatic agent was placed while pressure was applied. Once this pressure was relieved, the surgical cavity was again inspected and we found hemostasis to be intact. We also confirmed the presence of a well- functioning recurrent laryngeal nerve. Satisfied with this result, the strap muscles were closed with a running 3-0 Vicryl stitch leaving a small gap at the inferior aspect of the suture line. The parathyroid specimen was then brought onto the field and divided into 2 equal parts. Each part was then finally minced and placed into a slurry with sterile saline. Pockets were bluntly made in the sternohyoid muscle and each parathyroid graft was sequentially incorporated to the muscle pocket and was sealed in using the single small titanium vascular clip. The platysmal flaps were closed with interrupted 3-0 Vicryl. Some additional local anesthetic was infiltrated throughout the dermis and the skin was closed in a subcuticular fashion using 4-0 Monocryl. Steri-Strips were applied. Telfa and Tegaderm were used as a dressing. The patient was then awakened from anesthetic without event and was taken to PACU for ongoing recovery. Surgical Findings: – Large inferior pole nodule limiting posterior exposure – Pyramidal lobe and superior aspect of incision Complications Complications: No Admit VTE Documentation VTE Mechan Device Prophylaxis: SCD's
--- NOTE | 2025-07-26 13:41 | EX.PCM.DISCH ---
Discharge Instructions Diet Discharge Diet: No restrictions (However recommend a liquid to soft diet initially postoperatively) Activity Discharge Activity: May Not Drive (While it remains difficult to check blind spots quickly) May shower in (days): 2 Ice area for (Minutes): 20 Lifting Restrictions: No lifting greater than 15 pounds for 2 weeks after surgery Dressing / Incision Call your doctor if your incision/area has: Continuous Slow Oozing, Sudden Increased Bleeding, Increased Pain/ Swelling, Increased Redness and Swelling at the incision site Call your doctor if you observe: Numbness or Tingling Remove Dressing in: 2 days (Please leave Steri-Strips intact until they fall off spontaneously or are taken off at your follow-up visit) Cleanse incision/area with: Soap & Water Follow Up Care Please Follow Up With: Trevor Lanier MD When: 7-10 days postop Test Results: Test results from this visit will be discussed in further detail at your follow-up appointment, if applicable. Discharge Plan Admission Primary Reason for Your Visit: Thyroid surgery Attending Provider: Trevor Lanier Primary Care Provider: Mick Nick Instructions Print Language: Malagasy Discharge Orders/Prescriptions Prescriptions: Continued omeprazole magnesium [Prilosec OTC] 20 mg tablet,delayed release (DR/EC) 20 mg PO BID Qty: 180 1RF multivitamin Tablet 1 tab PO QAM triamterene-hydrochlorothiazid 37.5-25 mg tablet 1 tab PO QAM Qty: 90 1RF phentermine [Adipex-P] 37.5 mg tablet 37.5 mg PO QDAY Qty: 30 0RF Rx Instructions: must administer 30 minutes before or 1-2 hours after breakfast clobetasol 0.05 % ointment 1 applic topical DAILY PRN (Reason: skin irritation) valacyclovir 500 mg tablet 500 mg PO QHS Patient Comments: PT TAKES AT BEDTIME echinacea 400 mg capsule 400 mg PO DAILY rosuvastatin 10 mg tablet 10 mg PO QHS metoprolol succinate 50 mg tablet extended release 24 hr 50 mg PO BID Qty: 120 2RF Rexulti 2 mg tablet 2 mg PO DAILY Qty: 30 1RF escitalopram oxalate [Lexapro] 20 mg tablet 20 mg PO DAILY Qty: 90 1RF clonazepam 1 mg tablet 1 - 2 mg PO QHS PRN (Reason: panic attack) Qty: 30 1RF Referrals / Follow Up: Mick Nick DO [Primary Care Provider, Internal Medicine] Disposition Disposition (needs filled in before D/C Order can be placed): Home, Self Care
--- NOTE | 2025-07-26 14:02 | PCM.POST.ANE ---
Anesthesia: Postop Eval I Current Vital Signs Temperature: 97.8 F Pulse Rate: 80 Blood Pressure: 110/57 Respiratory Rate: 14 Pulse Ox: 94 Assessment Airway patent: Yes Spontaneous unlabored respirations: Yes nausea: No Vomiting: No Anesthesia Complication: No Fluid Hydration Crystalloid volume administer (ml): 1,500 Total IV fluid infused: 1,500 Progress Note Anesthesia document: Postop Eval 1 completed: Yes
--- NOTE | 2025-07-26 15:30 | POSTOPAN2_ITS ---
Anesthesia Postop Eval I Sum Postop Eval Completion status Anesthesia document: Postop Eval 1 completed: Yes Anesthesia Postop Eval I Summary Anesthesia Postop Eval I Summary: Anesthesia Postop Eval I: Assessment Summary Airway patent Yes 07/26/25 14:02 UNDERGROUND MINING SECTION FOREMAN.TNES Spontaneous unlabored Yes 07/26/25 14:02 UNDERGROUND MINING SECTION FOREMAN.TNES respirations Mental status nausea No 07/26/25 14:02 UNDERGROUND MINING SECTION FOREMAN.TNES Vomiting No 07/26/25 14:02 UNDERGROUND MINING SECTION [email or web address].TNES Anesthesia Postop Eval I: Fluid Summary Crystalloid volume administer 1,500 07/26/25 14:02 UNDERGROUND MINING SECTION FOREMAN.TNES (ml) Colloids volume administered ( ml) Blood Product volume administered (ml) Total IV fluid infused 1,500 07/26/25 14:02 UNDERGROUND MINING SECTION [email or web address].TNES Anesthesia Postop Eval I: Summary Notes Anesthesia Complication No 07/26/25 14:02 UNDERGROUND MINING SECTION FOREMAN.TNES Anesthesia Complication Comment: Post-operative progress note Anesthesia: Postop Eval II Evaluation Mental status: Awake Pain Level: 3 nausea: No Vomiting: No
--- NOTE | 2025-07-26 15:30 | PCM.POSTANE2 ---
Anesthesia Postop Eval I Sum Postop Eval Completion status Anesthesia document: Postop Eval 1 completed: Yes Anesthesia Postop Eval I Summary Anesthesia Postop Eval I Summary: Anesthesia Postop Eval I: Assessment Summary Airway patent Yes 07/26/25 14:02 [email or web address] Spontaneous unlabored Yes 07/26/25 14:02 [employer]TNES respirations Mental status nausea No 07/26/25 14:02 [employer]TNES Vomiting No 07/26/25 14:02 [email or web address]TNES Anesthesia Postop Eval I: Fluid Summary Crystalloid volume administer 1,500 07/26/25 14:02 [employer]TNES (ml) Colloids volume administered ( ml) Blood Product volume administered (ml) Total IV fluid infused 1,500 07/26/25 14:02 [email or web address][email or web address] Anesthesia Postop Eval I: Summary Notes Anesthesia Complication No 07/26/25 14:02 [email or web address][email or web address] Anesthesia Complication Comment: Post-operative progress note Anesthesia: Postop Eval II Evaluation Mental status: Awake Pain Level: 3 nausea: No Vomiting: No
== END 2025-07-26 17:07 | disposition home or self-care (01) ==
LOC: SDC 09:20 → AC 09:20
PROVIDERS: PCP Family Medicine; Referring Provider Surgery; Visit Provider Surgery
PROC: (CPT 60210; principal; 2025-07-26 10:45)
DX: E04.1 Nontoxic single thyroid nodule (principal); N18.30 Chronic kidney disease, stage 3 unspecified; E20.9 Hypoparathyroidism, unspecified; E78.00 Pure hypercholesterolemia, unspecified; I12.9 Hypertensive chronic kidney disease with stage 1 through stage 4 chronic kidney disease, or unspecified chronic kidney disease; K21.9 Gastro-esophageal reflux disease without esophagitis; Z87.891 Personal history of nicotine dependence; Z79.899 Other long term (current) drug therapy
CPT/HCPCS: 60210; 00320; 88305; 88307; 88331; 93005; A4648; J2405

== ENCOUNTER → 2025-08-26 | Outpatient (CLI) | payer OTHER, SELFPAY ==
--- OUTSIDE RECORDS SUMMARY | 2025-08-26 07:13 | XMS RPT_ITS | CCD ---
Author Organization [facility] Care Team Providers Care Marine Plumber Name Role Phone Dr. Mati Augustine Primary Care Provider [phone] Dr. Mati Augustine Attending Provider [phone] Mati Augustine Referring Provider DAVID Jeronimo Attending Provider Unavailab Dr. Trevor Lima Attending Provider [phone] Mati Augustine Primary Care Provider [phone] Dr. Mati Augustine Referring Provider [phone] Mati Augustine Attending Provider Dr. Mauro Queen Attending Provider [phone] Mati Augustine Primary Care Provider [phone] Dr. Mati Augustine Attending Provider Dr. Mati Augustine Referring Provider Dr. Mati Augustine Primary Care Provider [phone] Dr. Mati Augustine Referring Provider [phone] Trevor Lanier Attending Provider Dr. Mati Augustine Attending Provider MD Farhan Lima Attending Provider [phone] Dr. Mati Augustine Other Provider Dr. Lisa Tilley Attending Provider Dr. Mati Augustine Primary Care Provider [phone] Dr. Mati Augustine Referring Provider Dr. Trevor Lanier Attending Provider Dr. Yaniv Crawford Attending Provider Dr. Mati Augustine Primary Care Provider [phone] Dr. Mati Augustine Referring Provider [phone] Dr. Mati Augustine Attending Provider [phone] [...] Dr. Mati Augustine Referring Provider [phone] MD Farhan Lima Attending Provider Dr. Mati Augustine Primary Care Provider [phone] Dr. Mati Augustine Attending Provider [phone] Dr. Mati Augustine Referring Provider MD Farhan Lima Attending Provider Dr. Yaniv Crawford Attending Provider MD Farhan Lima Other Provider Dr. Mati Augustine Primary Care Provider [phone] Dr. Mati Augustine Attending Provider [phone] Dr. Mati Augustine Referring Provider [phone] Dr. Trevor Lanier Attending Provider MATI AUGUSTINE DO Primary Care Physician TRACY LIZAMA, DR ELIANE Liao Attending Unavailable MATI AUGUSTINE DO Primary Care Unavailable Dr. Mati Augustine DO Primary Care Provider Dr. Briseida Starks DO Attending Provider Dr. Briseida Starks DO Referring Provider Dr. Yaniv Crawford MD Attending Provider Ty PARKS, Dr. Purvis Referring Provider Sandoval LIZAMA, Dr. Mati Mccartney Referring Provider [phone] Sandoval LIZAMA, Dr. Mati Mccartney Primary Care Provider [phone] Sandoval LIZAMA, Dr. Mati Mccartney Attending Provider [phone] Yolande PARKS, Dr. Murray Attending Provider Yolande PARKS, Dr. Murray Referring Provider Unavailable Primary Care Provider Unavailpérez Augustine DO, Dr. Mati Mccartney Primary Care Provider [phone] Ty PARKS, Dr. Purvis Attending Provider Ty PARKS, Dr. Purvis Referring Provider Dr. Briseida Starks DO Attending Provider Dr. Briseida Starks DO Referring Provider Olive Yang MD Emergency Provider Dr. Godwin Lynch DO Admit Provider Dr. Godwin Lynch DO Attending Provider Dr. Godwin Lynch DO Other Provider Dr. Esteban oBss MD Attending Provider Unavaila ble Dr. Godwin Lynch DO Attending Provider Dr. Esteban Boss MD Other Provider Unavailable Mati Augustine DO Primary Care Provider ALIYA FRANKEL JR Attending Unavailable LEATHA GUERRERO Attending Unavailable PAIGE HUDDLESTON Referring Unavailable MATI AUGUSTINE Primary Care Unavailable OLIVE YANG Referring Unavailabl e MATI AUGUSTINE Primary Care Unavailable ASHOK II, JHON Admitting Unavailable FABRIZIO AMBROCIO Attending Unavailable CINDY BALLESTEROS Consulting Unava ilable FABRIZIO AMBROCIO Attending Unavailable PAIGE HUDDLESTON Referring Unavailable BROWN, MATI R Primary Care Unavailable FABRIZIO AMBROCIO Attending Unavailable BROWN, MATI R Primary Care Unavailable FABRIZIO AMBROCIO Attending Unavailable BROWN, MATI R Primary Care Unavailable Sandoval LIZAMA, Dr. Mati Mccartney Primary Care Provider Dr. Mati Augustine DO Attending Provider [phone] Sandoval LIZAMA, Dr. Mati Mccartney Referring Provider [phone] Dr. Trevor Lanier MD Attending Provider Dr. Trevor Lanier MD Referring Provider Rob Atkinson Attending Provider [phone] Rob Atkinson Referring Provider [phone] Mati Augustine DO Primary Care Provider Sandoval LIZAMA, Dr. Mati Mccartney Primary Care Physician Sandoval LIZAMA, Dr. Mati Mccartney Attending Physician [phone] Sandoval LIZAMA, Dr. Mati Mccartney Referring Provider [phone] Rob Atkinson Attending Physician Dr. Trevro Lanier MD Attending Physician Health, Employee Attending Physician Assessment, Health Risk Attending Physician Unav ailable Assessment, Health Risk Referring Provider Unava ilable Yolande PARKS, Dr. Murray Referring Provider Dr. Trevor Lanier MD Nurse Practitioner Brown, Mati R Referring Unavailable Yaniv Crawford Attending Unavailable Brown, Mati R Primary Care Unavailable Brown, Mati R Attending Unavailable Brown, Mati R Primary Care Unavailable Brown, Mati R Referring Unavailable Trevor Lanier Attending Unavailable Trevor Lanier Referring Unavailable Brown, Mati R Primary Care Unavailable Brown, Mati R Primary Care Unavailable Yaniv Crawford Attending Unavailable Yaniv Crawford Referring Unavailable Raudel Briseida Referring Unavailable Briseida Starks Attending Unavailable Brown, Mati R Primary Care Unavailable Trevor Lanier Attending Unavailable Trevor Lanier Consulting Unavailable Trevor Lanier Referring Unavailable Brown, Mati R Primary Care Unavailable Brown, Mati R Primary Care Unavailable Godwin Lynch Attending Unavailable Keenaneri, Godwin Consulting Unavailable Jopperi, Godwin Admitting Unavailable Brown, Mati R Primary Care Unavailable Esteban Boss Attending Unavailable Esteban Boss Consulting Unavailable Brown, Mati R Primary Care Unavailable Rob Atkinson Referring Unavailable Rob Atkinson Attending Unavailable Trevor Lanier Attending Unavailable Brown, Mati R Primary Care Unavailable Trevor Lanier Attending Unavailable Trevor Lanier Referring Unavailable Brown, Mati R Primary Care Unavailable Jopperi, Godwin Consulting Unavailable Jopperi, Godwin Admitting Unavailable Brown, Mati R Primary Care Unavailable Esteban Boss Attending Unavailable Trevor Lanier Attending Unavailable Trevor Lanier Referring Unavailable Brown, Mati R Primary Care Unavailable Brown, Mati R Primary Care Unavailable Assessment, Health Risk Referring Unavaila ble Assessment, Health Risk Attending Unavaila ble Brown, Mati R Primary Care Unavailable Brown, Mati R Referring Unavailable Rob Atkinson Attending Unavailable Trevor Lanier Attending Unavailable Brown, Mati R Referring Unavailable Brown, Mati R Primary Care Unavailable Trevor Lanier Attending Unavailable Brown, Mati R Primary Care Unavailable Brown, Mati R Referring Unavailable Brown, Mati R Primary Care Unavailable Yaniv Crawford Referring Unavailable Yaniv Crawford Attending Unavailable Briseida Starks Referring Unavailable Briseida Starks Attending Unavailable Brown, Mati R Primary Care Unavailable Brown, Mati R Primary Care Unavailable ArmidakarYaniv esteban Referring Unavailable Yaniv Crawford Attending Unavailable Trevor Lanier Attending Unavailable Brown, Mati R Primary Care Unavailable Brown, Mati R Referring Unavailable Brown, Mati R Primary Care Unavailable Brown, Mati R Referring Unavailable Rob Atkinson Attending Unavailable Brown, Mati R Primary Care Unavailable Brown, Mati R Referring Unavailable Brown, Mati R Attending Unavailable Trevor Lanier Attending Unavailable Brown, Mati R Primary Care Unavailable Brown, Mati R Referring Unavailable Trevor Lanier Attending Unavailable Trevor Lanier Referring Unavailable Brown, Mati R Primary Care Unavailable Brown, Mati R Primary Care Unavailable Brown, Mati R Attending Unavailable Brown, Mati R Referring Unavailable Allergies Allergy Classification Reported Allergen(s) Allergy Type Date of Onset Reaction(s) Facility (20 sources) Clindamycin Drug Allergy 2 burning & watery eyes [facility] Comment on above: otic (20 sources) Sulfonamides (Antibiotic); Translations: [SULFA (SULFONAMIDE ANTIBIOTICS)] Allergy to substance 6 [facility] (20 sources) Erythromycin Drug Allergy 2 Itching, Swelling [facility] Comment on above: Pt reacted to cream for eyes given for pink eye (1 source) Sulfonamide; Translations: [sulfa drugs] Drug allergy [facility] (1 source) Sulfonamides (Antibiotic) Propensity to adverse reactions 5 [facility] (7 sources) Genta-Gel; Translations: [GENTA-GEL] Propensity to adverse reactions to drug 6 Swelling [facility] (2 sources) Erythromycin; Translations: [ERYTHROMYCIN] Drug Allergy 5 [facility] (1 source) Clindamycin Drug Allergy 5 [facility] (1 source) Erythromycin Drug Allergy 5 [facility] Medications Current Medications Medication Drug [...] 02/11/24 Status: Ordered Ascorbic Acid / Bioflavonoids (5 sources) Vitamin C take 2 doses by mouth once daily ASCORBIC ACID-BIOFLAVONOIDS ORAL Take 100 mg by mouth once daily. C-100 with 10 mg Bioflavonoids 2 pill qday Active clobetasol propionate 0.0005 mg/mg topical ointment (20 sources) Corticosteroid Start: 12-05-2023 Start: 05-06-2021 End: 12-05-2023 Clobetasol 0.05 % ointment D iscontinued 1 NMA TOPICAL TWICE A DAY 60 14 2 May 06, 2021 12:00am December 05, 2023 3:06pm clonazePAM 1 mg oral tablet (20 sources) Benzodiazepine Start: 07-23-2025 take 1-2 mg by mouth at bedtime as needed Start: 07-23-2025 take 1-2 mg by mouth at bedtime as needed Start: 07-22-2025 End: 07-23-2025 take 1-2 mg by mouth at bedtime as needed Clonazepam 1 mg tablet Discontinued 1 - 2 mg PO AT BEDTIME as needed for panic attack July 22, 2025 12:00am July 23, 2025 8:21am Start: 11-01-2023 End: 07-19-2025 take 1-2 mg by mouth at bedtime as needed Clonazepam (Klonopin) 1 mg tablet Discontinued 1 - 2 mg PO AT BEDTIME as needed for panic attack(s) 60 30 0 June 19, 2025 8:31am July 18, 2025 12:00am July 19, 2025 12:11am Panic attack Panic disorder [episodic paroxysmal anxiety] take 1 mg by mouth e very twenty-four hours as needed clonazePAM (KLONOPIN) 2 mg tablet Take 1 mg by mouth at bedtime as needed for anxiety. Take 1 to 2 mg Active Echinacea 400 mg cap (5 sources) take 1 capsule by mouth once daily Echinacea 400 mg cap Take 400 mg by mouth once daily. Active Echinacea (10 sources) Start: 02-27-2025 take 1 capsule by mouth once daily Start: 02-27-2025 take 1 capsule by mo ut once daily Echinacea 400 mg capsule Active 400 mg PO DAILY February 27, 2025 12:00am iv contrast (will be provided with radiology test) (5 sources) Start: 05-07-2025 inject 1 dose intravenously [...] administration guidelines link 1 each 04/09/2025 Active multivit with calcium,iron,min (WOMEN'S MULTIPLE VITAMINS ORAL) (5 sources) take 1 tablet by mouth once daily multivit with calcium,iron,min (WOMEN'S MULTIPLE VITAMINS ORAL) Take 1 tablet by mouth once daily. Active Woman's Multi with Soy, Lutein, Black Cohosh and Cranberry Active Multivitamin tablet (12 sources) Start: 12-11-2024 Start: 12-11-2024 Multivitamin t ablet Active 1 {tbl} PO EVERY MORNING December 11, 2024 12:00am phentermine hydrochloride 37.5 mg oral tablet (9 sources) Sympathomimetic Amine Anorectic Start: 06-25-2025 End: 07-19-2025 take 1 tablet by mouth once daily 30 minutes after breakfast Start: 06-25-2025 take 1 tablet by radha th once daily 30 minutes after breakfast Start: 06-04-2025 End: 06-25-2025 Phentermine (Adipex-P) 37.5 mg tablet Discontinued 18.75 mg PO daily 30 June 04, 2025 12:00am June 25, 2025 8:18am must administer 30 minutes before or 1-2 hours after breakfast traMADol hydrochloride 50 mg oral tablet (2 sources) Opioid Agonist Start: 07-26-2025 take 1 tablet by mouth every six hours as needed for pain Start: 07-26-2025 take 1 tablet by mouth every s ix hours as needed for pain triamterene/hydrochlorothiaz id (DYAZIDE ORAL) (5 sources) take 0.5 mg by mouth once daily triamterene/hydrochlorothiazid (DYAZIDE ORAL) Take 0.5 mg by mouth once daily. Active valACYclovir 500 mg oral tab let (20 sources) Herpesvirus Nucleoside Analog DNA Polymerase Inhibitor, Herpes Simplex Virus Nucleoside Analog DNA Polymerase Inhibitor, Herpes Zoster Virus Nucleoside Analog DNA Polymerase Inhibitor S t a r t : 1 0 - 2 0 - 2 0 2 5 take 1 tablet by mouth at bedtime Start: 07-22-2025 take 1 tablet by radha th at bedtime Start: 01-26-2018 End: 07-22-2025 take 1 tablet by mouth once daily Valacyclovir 500 mg tablet Discontinued 500 mg PO DAILY September 04, 2024 9:17am January 29, 2025 8:25am Completed/Discontinued Medications Medication Drug Class(es) Dates Sig [...] 2023 9:20am amoxicillin 500 mg oral tablet (10 sources) Penicillin-class Antibacterial Start: 02-06-2025 End: 02-27-2025 take 1 tablet by mouth three times daily Amoxicillin 500 mg tablet Discontinued 500 mg PO THREE TIMES A DAY 30 February 06, 2025 12:00am February 27, 2025 10:33am brexpiprazole 2 mg oral tablet (20 sources) Atypical Antipsychotic Start: 02-19-2025 End: 05-13-2025 take 1 tablet by mouth once daily Brexpiprazole (Rexulti) 2 mg tablet Discontinued 2 mg PO DAILY February 27, 2025 12:00am May 13, 2025 2:29pm take 1 tablet by mouth once lois y Brexpiprazole (Rexulti) 1 MG tablet Take 1 mg by mouth daily. Active cariprazine 3 mg oral capsule (16 sources) Atypical Antipsychotic Start: 12-05-2023 End: 12-27-2023 take 1 capsule by mouth once daily Cariprazine (Vraylar) 3 mg capsule Discontinued 3 mg PO DAILY December 05, 2023 1:00am December 27, 2023 9:28am escitalopram 20 mg oral tablet (20 sources) Serotonin Reuptake Inhibitor Start: 12-25-2024 End: 06-19-2025 take 1 tablet by mouth once daily Escitalopram Oxalate (Lexapro) 20 mg tablet Discontinued 20 mg PO DAILY February 27, 2025 12:00am June 19, 2025 8:31am ethinyl estradiol 0.03 mg / norethindrone acetate 1.5 mg oral tablet (20 sources) Estrogen Start: 04-19-2018 End: 08-11-2022 Norethindrone Ac-Eth Estradiol (Junel .03/01 (21)) 1.5-30 mg-mcg tablet Discontinued 1 {tbl} PO daily 63 3 April 16, 2022 10:54am August 11, 2022 5:25pm FLUoxetine 40 mg oral capsule (20 sources) Serotonin Reuptake Inhibitor Start: 06-05-2019 End: 08-19-2020 take 1 capsule by mouth twice daily in the morning Fluoxetine 40 mg capsule Discontinued 0 .ROUTE .COMPLEX 180 1 July 15, 2020 8:21am August 19, 2020 10:16am TAKE 1 CAPSULE BY MOUTH TWICE A DAY ADMINISTER IN THE MORNING AND AT NOON/MIDDAY Start: 04-19-2018 End: 06-05-2019 take 1 capsule by mouth once daily in the morning Fluoxetine (Prozac) 40 mg capsule Discontinued 40 mg PO daily 180 May 22, 2018 7:02pm June 05, 2019 11:26am administer in the morning and at noon/midday Start: 01-26-2018 End: 04-19-2018 take 1 capsule by mouth twice daily in the morning Fluoxetine (Prozac) 40 mg capsule Discontinued 40 mg PO TWICE A DAY 180 January 26, 2018 12:00am April 19, 2018 2:03pm administer in the morning and at noon/midday hydroCHLOROthiazide 25 mg / triamterene 37.5 mg oral tablet (20 sources) Potassium-sparing Diuretic, Thiazide Diuretic Start: 05-06-2021 End: 04-02-2025 Triamterene-Hydrochlorothiaz id 37.5-25 mg tablet Discontinued 0.5 {tbl} PO EVERY MORNING 90 January 04, 2025 10:45am April 02, 2025 10:02am Start: 05-06-2021 End: 10-12-2023 take 1 tablet by mouth once daily in the morning Triamterene-Hydrochlorothiazid Discontin ued 1 TABLET PO EVERY MORNING December 20, 2022 10:37am March 22, 2023 9:42am levETIRAcetam 500 mg oral tablet (2 sources) [...] Discontinued 0 PO per package directions 21 0 April 22, 2021 10:35am May 06, 2021 6:12pm PO PER PKG DIR 24 hr metoprolol succinate 50 mg extended release oral tablet (20 sources) beta-Adrenergic Yolette Start: 03-24-2022 End: 05-09-2025 take 1 tablet by mouth twice daily Metoprolol Succinate 50 mg tablet extended release 24 hr Discontinued 50 mg PO TWICE A DAY 120 2 November 21, 2024 11:16am May 09, 2025 8:43am Start: 12-01-2021 End: 03-24-2022 take 1 tablet [...] 19, 2018 12:00am May 12, 2018 12:35pm nystatin 100 unt/mg topical powder (20 sources) [...] A DAY as needed for abdominal rash 30 0 March 13, 2021 12:00am May 06, 2021 6:13pm Start: 03-13-2021 End: 05-06-2021 Nystatin Discontinued 1 APPL IC TOPICAL THREE TIMES A DAY 30 March 13, 2021 12:00am May 06, 2021 6:13pm omeprazole 20 mg delayed release oral tablet (20 sources) Proton Pump Inhibitor Start: 08-19-2020 End: 03-22-2023 take 1 tablet by mouth twice daily Omeprazole Magnesium (Prilosec Otc) 20 mg tablet,delayed release (DR/EC) Discontinued 20 mg PO TWICE A DAY 180 1 May 22, 2021 7:42am March 22, 2023 9:42am take 1 capsule by mouth twice da sarah omeprazole (PRILOSEC) 20 mg capsule Take 20 mg by mouth two times a day. Active rosuvastatin calcium 10 mg oral tablet (20 sources) HMG-CoA Reductase Inhibitor Start: 12-23-2021 End: 02-27-2025 take 1 tablet by mouth once daily Rosuvastatin 10 mg tablet Discontinued 10 mg PO DAILY 90 3 January 23, 2024 5:03pm February 06, 2025 [...] 13, 2021 12:00am May 06, 2021 6:13pm 24 hr venlafaxine 150 mg extended release oral capsule (20 sources) Serotonin and Norepinephrine Reuptake Inhibitor Start: 08-21-2024 End: 11-23-2024 take 1 capsule by mouth once daily Venlafaxine 150 mg capsule,extended release 24hr Discontinued 300 mg PO DAILY 60 2 August 21, 2024 9:25am November 23, 2024 4:31pm Start: 08-19-2020 End: 02-06-2025 take 1 capsule by mouth once daily Venlafaxine 150 mg capsule,extended release 24hr Discontinued 300 mg PO DAILY 60 2 November 23, 2024 4:31pm February 06, 2025 1:16pm Problems Active Problems Problem Classification Problem Date Documented Da te Episodic/Chronic Acute and unspecified renal failure (5 sources) Acute renal failure syndrome; Translations: [Acute kidney failure, unspecified] Onset: 03-06-2025 03-06-2025 Episodic Allergic reactions (20 sources) Inflammatory dermatosis; Translations: [Dermatitis, unspecified] Episodic Anxiety disorders (20 sources) Panic attack; Translations: [Panic disorder [episodic paroxysmal anxiety]] Onset: 02-19-2025 11-01-2023 Chronic Cardiac dysrhythmias (20 sources) Cardiac arrhythmia; Translations: [Cardiac arrhythmia, unspecified] Chronic Chronic kidney disease (20 sources) Chronic renal failure; Translations: [Chronic kidney disease, unspecified] 06-12-2024 Chronic Chronic kidney disease (1 source) Chronic kidney disease; Translations: [Chronic kidney disease, stage 3a] Onset: 05-16-2025 Coagulation and hemorrhagic disorders (20 sources) Blood [...] 04-19-2018 Episodic Other and unspecified benign neoplasm (20 sources) Intracranial meningioma; Translations: [Benign neoplasm of [...] (acquired)] 03-01-2023 Episodic Other connective tissue disease (16 sources) Trigger thumb of right hand; Translations: [Trigger thumb, right thumb] 11-08-2023 Episodic Other connective tissue disease (1 source) Neuralgia; Translations: [Neuralgia and neuritis, unspecified] Onset: 02-04-2024 Episodic Other connective tissue disease (1 source) Synovitis and tenosynovitis; Translations: [Synovitis and tenosynovitis, unspecified] Onset: 02-04-2024 Episodic Other connective tissue disease (12 sources) Biceps tendinitis; Translations: [Bicipital tendinitis, right shoulder] 06-26-2024 Episodic Other connective tissue disease (3 sources) Bilateral trigger thumbs; Translations: [Trigger thumb, right thumb] 03-01-2023 Episodic Other endocrine disorders (20 sources) Polycystic ovary; Translations: [Polycystic ovarian syndrome] 04-19-2018 Chronic Other female genital disorders (20 sources) Abnormal uterine bleeding; Translations: [Other specified abnormal uterine and vaginal bleeding] 03-01-2019 Chronic Other gastrointestinal disorders (20 sources) Abdominal bloating; Translations: [Abdominal distension (gaseous)] 08-19-2020 Episodic Other gastrointestinal disorders (20 sources) Dysphagia; Translations: [Dysphagia, unspecified] 02-08-2023 Episodic Comment on above: s/p egd and dilation w/o improvement. After aspirating for cellular material he aspirated the cystic component of the nodule and have asked patient to gauge her symptomatic response with this intervention. Other gastrointestinal disorders (8 sources) Dysphagia, unspecified; Translations: [Dysphagia, unspecified] Onset: 07-02-2025 02-08-2023 Episodic Other hematologic conditions (20 sources) [...] enzyme levels] 03-22-2023 Episodic Other liver diseases (20 sources) Liver mass; Translations: [Hepatomegaly, not elsewhere classified] 04-06-2023 Episodic Other liver diseases (3 sources) Hepatomegaly, not elsewhere classified; Translations: [Other specified disorders of liver] 05-16-2023 Episodic Other nervous system disorders (20 sources) Mass lesion of brain; Translations: [Other specified disorders of brain] Onset: 03-01-2025 02-27-2025 Chronic Other nervous system disorders (2 sources) Other specified disorders of brain; Translations: [Brain mass] Onset: 03-01-2025 Chronic Other nervous system disorders (1 source) Cerebral edema; Translations: [Cerebral edema] Onset: 05-23-2025 Chronic Other nervous system disorders (20 sources) [...] Chronic Other nutritional; endocrine; and metabolic disorders (5 sources) Obese class II; Translations: [Obesity, Class II, BMI 35-39.9] Onset: 03-06-2025 03-06-2025 Chronic Other nutritional; endocrine; and metabolic disorders (12 sources) Weight increased; Translations: [Abnormal weight gain] 05-16-2025 Episodic Other nutritional; endocrine; and metabolic disorders (1 source) Abnormal weight gain; Translations: [Abnormal weight gain] Onset: 07-19-2025 Episodic Other upper respiratory disease (20 sources) Seasonal [...] valve unspecified] 04-19-2018 Chronic Residual codes; unclassified (17 sources) Amnesia; Translations: [Other amnesia] 02-27-2025 Episodic Residual codes; unclassified (10 sources) Bilateral lower limb edema; Translations: [Localized edema] 05-16-2025 Episodic Residual codes; unclassified (2 sources) History of thyroid lobectomy; Translations: [Acquired absence of other part of head and neck] 07-26-2025 Episodic Spondylosis; intervertebral disc disorders; other back problems (20 sources) Back problem; Translations: [Dorsopathy, unspecified] 09-02-2021 Episodic Comment on above: The patient has no s ignificant back pain Thyroid disorders (20 sources) Multinodular goiter; Translations: [Nontoxic multinodular goiter] Onset: 05-23-2025 Chronic Comment on above: Patient is a [...] biopsy previously in the result unequivocally returning [place] 2 this proposition should not be taken [...] biopsy previously in the result unequivocally returning [place] 2 this proposition should not be taken [...] lobectomy. Patient was receptive of this approach Patient 54-year-old female with right TI-RADS 3 nodule that is significantly enlarged since prior biopsy 2 years ago. She also describes more compressive symptoms particularly dysphagia. CT imaging of the neck does show some leftward deviation of the trachea and I shared with her I remain a little bit skeptical that her right sided thyroid nodule is causing enough esophageal compression to cause her the symptoms described. However, she has undergone EGD with dilation with no relief of symptoms and CT does seem to suggest that her anterior vertebral column is at least partially compressing the posterior esophagus. Therefore I reasoned that we could consider a right sided thyroid lobectomy to try to alleviate this compressive force. Patient is inclined to do so but given the interval growth we will proceed with repeat thyroid biopsy today. Procedure was undertaken uncomplicated fashion and full details are given in the procedures section of this note. Patient 54-year-old female with right TI-RADS 3 nodule that is significantly enlarged since prior biopsy 2 years ago. She also describes more compressive symptoms particularly dysphagia. CT imaging of the neck does show some leftward deviation of the trachea and I shared with her I remain a little bit skeptical that her right sided thyroid nodule is causing enough esophageal compression to cause her the symptoms described. However, she has undergone EGD with dilation with no relief of symptoms and CT does seem to suggest that her anterior vertebral column is at least partially compressing the posterior esophagus. Therefore I reasoned that we could consider a right sided thyroid lobectomy to try to alleviate this compressive force. Patient is inclined to do so but given the interval growth we will proceed with repeat thyroid biopsy today. Procedure was undertaken uncomplicated fashion and full details are given in the procedures section of this note.Update 07/19/2025: Patient is a 54-year-old female who presents for discussions around planned right thyroid lobectomy with isthmusectomy using intraoperative nerve monitoring after declaring compressive symptoms. Biopsy completed at her last visit was confirmed as a [place] 2 cytopathology designation. I spent the bulk of today's visit discussing the planned operation and its attendant risks specifically those of recurrent laryngeal nerve injury and hypoparathyroidism. I shared how intraoperative nerve monitoring is used to minimize the risk for recurrent laryngeal nerve injury and how loupe magnification is employed to minimize both risks through identification of both the nerve and parathyroid glands. I shared that I would intend for this to be an outpatient procedure with some postop observation prior to discharge. I stressed the patient will need to limit activity in the first week following surgery to minimize her risk for postoperative bleeding. She acknowledges understanding. Unclassified (20 sources) blood transfusion 04-19-2018 Comment on above: 1993 Past or Other Problems Problem Classification Problem Date Documented Da te Episodic/Chronic Deficiency and other anemia (4 sources) Anemia, unspecified; Translations: [Anemia, unspecified] Onset: 12-04-2024 12-13-2023 Episodic Mood disorders (1 source) Mood disorders Onset: 02-19-2025 02-19-2025 Other hematologic conditions (12 sources) Other diseases of spleen; Translations: [Disease of spleen, unspecified] Onset: 12-04-2024 05-16-2023 Episodic Other screening for suspected conditions (not mental disorders or infectious disease) (1 source) Encounter for screening mammogram for malignant neoplasm of breast; Translations: [Encounter for screening mammogram for malignant neoplasm of breast] Onset: 11-02-2024 Episodic Results Test Name Value Interpretation Reference Range Facility Surgery Visit Reporton 08-06 Surgery Visit Report [facility] [address] [place] [address] OFFICE VISIT Date of Service: 08/06/25 MR#: [id number] Acct: [id number] Name: SIERRA CORREA Rep #: [id number] : 1970 Provider: Dr. Trevor joiner MD Age/Sex: 54/F Location: [facility] Status: Signed Intake Vital Signs 07/26/25 09:51 Height 5 ft 2 in Intake Visit Reasons: R THYROID LOBECTOMY 07-26 Chief Complaint: r thyroid lobectomy 07-26 Is patient in pain?: No Allergies clindamycin Allergy (Severe, Verified 07/26/25 09:40) burning watery eyes Sulfa (Sulfonamide Antibiotics) Allergy (Severe, Verified 07/26/25 09:40) Hives erythromycin base Allergy (Verified 07/26/25 09:40) eye redness, watering, swelling Medications ???Medication ???Instructions ???Recorded ???Confirmed ???Type omeprazole magnesium 20 mg 20 mg PO BID #180 tabs 03/22/23 Rx tablet,delayed release (Prilosec OTC) clobetasol 0.05 % topical ointment 1 applic topical DAILY PRN skin 12/05/23 08/06/25 History irritation multivitamin 1 tab PO QAM 12/11/24 08/06/25 His tory echinacea 400 mg capsule 400 mg PO DAILY 02/27/25 08/06/25 History rosuvastatin 10 mg tablet 10 mg PO QHS 02/27/25 08/06/25 His tory triamterene 37.5 1 tab PO QAM #90 tabs 04/02/2501/25 Rx mg-hydrochlorothiazide 25 mg tablet metoprolol succinate 50 mg 50 mg PO BID #120 TABLETS 05/09/25 08/06/25 Rx tablet,extended release 24 hr brexpiprazole 2 mg tablet (Rexulti) 2 mg PO DAILY #30 tabs 05/13/25 08/06/25 Rx escitalopram oxalate 20 mg tablet 20 mg PO DAILY #90 tabs 06/19/25 08/06/25 Rx (Lexapro) phentermine 37.5 mg tablet 37.5 mg PO QDAY #30 tabs 07/19/25 08/06/25 Rx (Adipex-P) valacyclovir 500 mg tablet 500 mg PO QHS 07/22/25 08/06/25 Hi story tramadol 50 mg tablet 50 mg PO Q6H PRN pain #10 tabs 08/06/25 Rx clonazepam 1 mg tablet 2 mg (2 x 1 mg) PO QHS PRN panic 1 10/06/24 Rx attack #60 tabs Subjective Details: Patient presents following right thyroid lobectomy with isthmusectomy using intraoperative nerve monitoring on 07/26/2025. Additionally, patient required autotransplantation of parathyroid tissue to right sternocleidomastoid muscle. Since hospital discharge they have been doing well and she suggest that she could have gone back to work within 2 days of surgery. She reports that she did go back to work yesterday and had no issues. They report minimal postoperative pain. She reports that she had 1 instance where her voice cracked but thereafter it returned to normal and has not had any further difficulty. They have not experienced symptoms of numbness and tingling. They have no wound concerns. She is pleased to report that her swallowing is better from where it was prior to her operation. Objective Details: Constitutional: No acute distress, appreciative Neck: Lower cervical incision well-approximated without erythema. There is no tenderness with palpation. There is a slight nodular area at the left terminus likely representing a subcuticular suture knot. Coding Level of Care Code Global Post Op Diagnoses History of lobectomy of thyroid Z90.09 [facility] Medical History CKD (chronic kidney disease), stage III Low iron History of renal disease History of Holter monitoring History of brain tumor Alcohol abuse Kidney disease GERD (gastroesophageal reflux [...] Mother Anemia Anxiety Arthritis Depression Hypertension High (more content not included)... Normal [facility] Discharge Instructionon 07-04 Discharge Instruction [facility] Medical Records Department [address] [place] [address] Instructions for Home/Discharge Instructions 07/26/25 1341 MR#: [id number] Acct: [id number] Name: SIERRA CORREA Rep #: [id number] : 1970 54 From: Trevor Lanier MD PCP: Dr. Mati Augustine, DO [place] [facility] [place]charge Instructions Diet Discharge Diet: No restrictions (However recommend a liquid to soft diet initially postoperatively) Activity Discharge Activity: May Not Drive (While it remains difficult to check blind spots quickly) May shower in (days): 2 Ice area for (Minutes): 20 Lifting Restrictions: No lifting greater than 15 pounds for 2 weeks after surgery Dressing / Incision Call your doctor if your incision/area has: Continuous Slow Oozing, Sudden Increased Bleeding, Increased Pain/ Swelling, Increased Redness and Swelling at the incision site Call your doctor if you observe: Numbness or Tingling Remove Dressing in: 2 days (Please leave Steri-Strips intact until they fall off spontaneously or are taken off at your follow-up visit) Cleanse incision/area with: Soap Water Follow Up Care Please Follow Up With: Trevor Lanier MD When: 7-10 days postop Test Results: Test results from this visit will be discussed in further detail at your follow-up appointment, if applicable. Discharge Plan Admission Primary Reason for Your Visit: Thyroid surgery Attending Provider: Trevor Lanier Primary Care Provider: Mati Augustine Instructions Print Language: Bahamian Discharge Orders/Prescriptions Prescriptions: Continued omeprazole magnesium [Prilosec OTC] 20 mg tablet,delayed release (DR/EC) 20 mg PO BID Qty: 180 1RF multivitamin Tablet 1 tab PO QAM triamterene-hydrochlorot hiazid 37.5-25 mg tablet 1 tab PO QAM Qty: 90 1RF phentermine [Adipex-P] 37.5 mg tablet 37.5 mg PO QDAY Qty: 30 0RF Rx Instructions: must administer 30 minutes before or 1-2 hours after breakfast clobetasol 0.05 % ointment 1 applic topical DAILY PRN (Reason: skin irritation) valacyclovir 500 mg tablet 500 mg PO QHS Patient Comments: PT TAKES AT BEDTIME echinacea 400 mg capsule 400 mg PO DAILY rosuvastatin 10 mg tablet 10 mg PO QHS metoprolol succinate 50 mg tablet extended release 24 hr 50 mg PO BID Qty: 120 2RF Rexulti 2 mg tablet 2 mg PO DAILY Qty: 30 1RF escitalopram oxalate [Lexapro] 20 mg tablet 20 mg PO DAILY Qty: 90 1RF clonazepam 1 mg tablet 1 - 2 mg PO QHS PRN (Reason: panic attack) Qty: 30 1RF Referrals / Follow Up: Mati Augustnie DO [Primary Care Provider, Internal Medicine] Disposition Disposition (needs filled in before D/C Order can be placed): Home, Self Care 07/26/25 1601 Trevor Lanier MD CC: Dr. Mati Augustine DO Signed Normal [facility] MR/POSTOP.Eliza 07-26-2025 MR/POSTOP.[facility] Medical Records Department [address] [place] [address] Anesthesia Postop Eval I 07/26/25 1402 MR#: [id number] Acct: [id number] Name: SIERRA CORREA Rep #: [id number] : 1970 54 From: Young Hackett CRNA PCP: Dr. Mati Augustine, DO Status:REG SDC Y Race: C Location: [place] [address] Anesthesia: Postop Eval I Current Vital Signs Temperature: 97.8 F Pulse Rate: 80 Blood Pressure: 110/57 Respiratory Rate: 14 Pulse Ox: 94 Assessment Airway patent: Yes Spontaneous unlabored respirations: Yes nausea: No Vomiting: No Anesthesia Complication: No Fluid Hydration Crystalloid volume administer (ml): 1,500 Total IV fluid infused: 1,500 Progress Note Anesthesia document: Postop Eval 1 completed: Yes 07/26/25 1402 Date Young Hackett DISC PAD GRINDING MACHINE FEEDER Cosigner Signature: Date CC: Signed [facility] MR/[id number] 07-26-2025 /[facility] Medical Records Department [address] [place] [address] Anesthesia Postop Eval II 07/26/25 1530 MR#: [id number] Acct: [id number] Name: SIERRA CORREA Rep #: [id number] : 1970 54 From: Lili Garcia DISC PAD GRINDING MACHINE FEEDER PCP: Dr. Mati Augustine, DO Status:REG SDC Y Race: C Location: [place] [address] Anesthesia Postop Eval I Sum Postop Eval Completion status Anesthesia document: Postop Eval 1 completed: Yes Anesthesia Postop Eval I Summary Anesthesia Postop Eval I Summary: Anesthesia Postop Eval I: Assessment Summary Airway patent Yes 07/26/25 14:02 DISC PAD GRINDING MACHINE FEEDER.TNES Spontaneous unlabored Yes 07/26/25 14:02 DISC PAD GRINDING MACHINE FEEDER.TNES respirations Mental status nausea No 07/26/25 14:02 DISC PAD GRINDING MACHINE FEEDER.TNES Vomiting No 07/26/25 14:02 DISC PAD GRINDING MACHINE FEEDER.TNES Anesthesia Postop Eval I: Fluid Summary Crystalloid volume administer 1,500 07/26/25 14:02 DISC PAD GRINDING MACHINE FEEDER.TNES (ml) Colloids volume administered ( ml) Blood Product volume administered (ml) Total IV fluid infused 1,500 07/26/25 14:02 DISC PAD GRINDING MACHINE FEEDER.TNES Anesthesia Postop Eval I: Summary Notes Anesthesia Complication No 07/26/25 14:02 DISC PAD GRINDING MACHINE FEEDER.TNES Anesthesia Complication Comment: Post-operative progress note Anesthesia: Postop Eval II Evaluation Mental status: Awake Pain Level: 3 nausea: No Vomiting: No 07/26/25 1530 Date Lili basil DISC PAD GRINDING MACHINE FEEDER Cosigner Signature: Date CC: Signed [facility] Operative Reporton 5 Operative Report [facility] Medical Records Department [address] [place] [address] Operative Report 07/26/25 1339 MR#: [id number] Acct: [id number] Name: SIERRA CORREA Rep #: [id number] : 1970 54 From: Trevor Lanier MD PCP: Dr. Mati Augustine, DO Status:[facility] [place] [facility] Operative Report (Standard) Operative Information Date of Procedure: 07/26/25 Pre-Operative Diagnosis: Right thyroid nodules with compressive symptoms Post-Operative Diagnosis: Same Surgery/Procedure Performed: 1. Right thyroid lobectomy with isthmusectomy using intraoperative nerve monitoring 2. Autotransplantation of parathyroid airplane and engine inspector: Yes Supervisor Post Wave: Shanika Henning Tasks completed by assistant professor of surgery: Opening closing Type of Anesthesia: General/Supplemental RN Documented Start/Stop Times: Operation Date: 07/26/25 11:00 Case Time Into Pre-Op 07/26/25 09:29 Out of Pre-Op 07/26/25 10:42 Anesthesia Start 10/24/25 10:57 Into Room 07/26/25 10:57 Procedure Start 07/26/25 11:23 Procedure End 07/26/25 13:41 Anesthesia End 07/26/25 13:54 Out of Room 07/26/25 13:54 Into Recovery 07/26/25 13:56 Out of Recovery 07/26/25 16:02 Into Phase II Recovery 07/26/25 16:03 Out of Phase II 07/26/25 17:00 Procedure Start Time: 11:23 Procedure Stop Time: 13:41 Select all DRAINS/GRAFTS/IMPLANTS that apply: None Estimated Blood Loss: 15 Specimen collected: Yes Description of specimen(s) removed: 1. Right thyroid lobe and isthmus (stitch lagunas right superior pole) 2. Frozen section to confirm parathyroid tissue (pathology confirmed) Description of surgery: After appropriate identification in the preoperative holding area, the patient was brought to the operating room where she was positioned supine on the operating room table. Induction of general endotracheal anesthetic was begun and a NIMS tube was placed under glidescope view to confirm coaptation with the vocal cords anteriorly. Tube was then secured and the patient was positioned with a shoulder roll so that her head was in extension but supported. The Nims electrodes were placed and connected to the monitor. We had appropriate resistance showing on the monitor and tapping at the level of the cricoid produce a graphical representation of the impulse on the monitor. Patient's neck was then prepped and draped in usual sterile fashion and a formal timeout was conducted from those present. The lowest skin fold to the sternal notch was selected for incision site (this resided approximately 2 fingerbreadths cephalad to the notch). An incision was extended for 2.5 cm on either side of midline. Electrocautery was used to deepen this incision through the level of the platysma. Subplatysmal flaps were raised with the use of electrocautery and blunt dissection. The strap muscles were then divided along the medial raphe bringing us down to the level of the thyroid. Capsular attachments to the thyroid were divided with the use of LigaSure. Retractors were placed providing visualization of the right superior pole of the thyroid. The vessels of the superior pole were sequentially ligated with the use of the LigaSure device. As we moved towards the thyroid gland away from the pole vessels, I identified a small oval shaped area that lie atop the thyroid capsule and appeared suggestive of parathyroid tissue. Because it presented in a location that was unable to be preserved on the tribe vascular pedicles it was circumferentially dissected and amputated free of the specimen with LigaSure energy. A small sample was submitted for frozen section while the majority of it was kept intact on a moistened Telfa gauze. We then moved inferiorly and divided those polar vessels with LigaSure. No inferior parathyroid gland was grossly visualized. With the poles freed the thyroid was mobilized medially. I bluntly the remaining strap muscle fibers from the thyroid capsule and using blunt dissection parallel to the presumed course of the recurrent laryngeal nerve and exposed the tracheoesophageal groove. This was somewhat more challenging than average due to large size of patient's inferior pole nodule and adhesions posteriorly. I continued with a capsular dissection and relieving the adhesions to the trachea. Ultimately I did visualize the recurrent laryngeal nerve and confirmed a strong Nims signal. The nerve positively identified, I relieved the attachments of the thyroid gland to the underlying trachea with the use of LigaSure. As we again approached the nerve insertion of the cricothyroid membrane, I elected to leave a minuscule amount of thyroid tissue intact using 4-0 silk ligatures to secure this tissue. The recurrent laryngeal nerve signal was checked prior to the division of any thyroid tissue. In the cephalad portion of the incision, I encountered what appeared to represe (more content not included)... Normal [facility] MR/PAT.HELGAon 07-24-2025 MR/PAT.ANE [facility] Medical Records Department [address] [place] [address] PAT - Anesthesia 07/24/25 1047 MR#: [id number] Acct: [id number] Name: SIERRA CORREA Rep #: [id number] : 1970 54 From: Des Bermudez MD PCP: Dr. Mati Augustine, DO Status:[place] [facility] [place] Race: C [place] [facility] Pre-Assessment Diagnosis/Proposed Procedure Planned Operative Procedure(s): THYROID LOBECTOMY WITH ISTHMUS AND IONM Anesthesia History Anesthesia History - section crews activities clerk: Anesthesia History - section crews activities clerk Hx Hospitalization Yes: 03/06/2025 BRAIN TUMOR 07/22/25 15:26 REMOVED @ [facility] Any Problems With Anesthesia No 07/22/25 15:26 Cholinesterase deficiency No 07/22/25 15:26 You/Your Family Experience No 07/22/25 15:26 fever (hyperthermia) with Relationship Recent Exposure to Contagious No 01/03/24 08:09 Disease Does patient have nerve No 07/22/25 15:26 stimulator Patient instructed to have device shut off --Does patient have Pacemaker or ICD? When Was Last Pacemaker Check QUESTION #4 FULL TEXT: You/Your Family Experience fever (hyperthermia) with Anesthesia Last Oral Intake Last Oral intake: Last Oral Intake NPO since Meds taken in AM with sips of water? Meds patient instructed to take am of surgery PONV PONV - section crews activities clerk: PONV - section crews activities clerk Female Yes 07/22/25 15:26 HX of Motion Sickness No 07/22/25 15:26 HX of N/V After Surgery Yes 07/22/25 15:26 Non-Smoker Yes 07/22/25 15:26 Duration of Surgery greater Yes 07/22/25 15:26 than 60 minutes Number of Risk Factors 4 07/22/25 15:26 PONV Score Severe Risk 07/22/25 15:26 Height Weight Height Weight: Anesthesia: Height Weight Height 5 ft 2 in 07/19/25 14:27 Respiratory Assessment Respiratory Assessment - section crews activities clerk: Respiratory Tract Infection Hx - section crews activities clerk Hx Respiratory Tract Infection No 07/22/25 15:26 STOP Sleep Apnea STOP Sleep Apnea - section crews activities clerk: STOP Sleep Apnea - section crews activities clerk Hx Hypertension Yes: CONTROLLED WITH MED 07/22/25 15:26 Hx Sleep Apnea No 07/22/25 15:26 CPAP BIPAP Do you snore loudly (louder Yes 07/22/25 15:26 than talking or can be heard Do you often feel tired/ No 07/22/25 15:26 fatigued/ sleepy during daytime? Has anyone observed you stop No 07/22/25 15:26 breathing during sleep? STOP Results Positive 07/22/25 15:26 QUESTION #5 FULL TEXT : Do you snore loudly (louder than talking or can be heard through closed doors)? 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 Specify any problems Hx of Preganancy in last 3 N/A 07/22/25 15:26 Months Nurse Filling Out Transfusion NBUCHER 07/22/25 15:26 Questions: Date: 07/22/25 07/22/25 15:26 Time: 07/22/25 15:26 Patient unable to answer at this time (ie. confused, unrespo /Reproduction History /Reproductive History - section crews activities clerk: /Reproductive Hx- section crews activities clerk Hx Now No 07/22/25 15:26 Gestational Age (in weeks): EDC: Hx Hx Para Hx Section SAB No 07/22/25 15:26 [facility] Medical History (Updated 07/22/25 @ 15:38 by Tracey Christie) CKD (chronic kidney disease), stage III Low iron History of renal disease History of Holter monitoring History of brain tumor Alcohol abuse Kidney disease GERD (gastroesophageal reflux [...] of spleen Obesity Dermatitis Heart valve problem Polyc (more content not included)... Normal [facility] 12 Lead EKGon 07-23-[address] [facility] Cardiovascular Services [address] [place] [address] 12 Lead EKG 07/23/25 0707 MR#: [id number] Acct: [id number] Name: SIERRA CORREA Cira Rep #: [id number] : 1970 54 From: Trevor Gonzalez MD Attending Dr: Dr. Trevor Lanier MD Status: [place] [facility] Ordering Dr: Waqas Napier MD Date: 07/23/25 [place] [facility] Sex: F C Admitted: Test Reason : PREOP Blood Pressure : */* mmHG Vent. Rate : 80 BPM Atrial Rate : 80 BPM P-R Int : 102 ms QRS Dur : 100 ms QT Int : 424 ms P-R-T Axes : 39 2 53 degrees QTcB Int : 489 ms Sinus rhythm normal Confirmed by Trevor Gonzalez ([id number]), medical transcription editor MARIKA DEAL ([id number]) on 07/23/2025 11:06:54 AM Referred By: Trevor Lanier Confirmed By: Trevor Gonzalez 07/23/25 1106 Date Trevor Gonzalez MD CC: Dr. Waqas Napier MD; Dr. Mati Augustine DO; Dr. Trevor Lanier MD Signed Normal [facility] V-Zoster IgG (Immunity)on V ZOSTER IgG Normal [facility] Comment on above: Result Comment: TEST RESULTS LIMITS Varicella-Zoster V Ab, IgG Varicella Zoster IgG Reactive Non Reactive Please note reference interval change A Reactive result is considered evidence of immunity to VZV. Reactive indicates that VZV IgG was detected consistent with previous infection and/or vaccination. A Non Reactive result indicates that VZV IgG was not detected suggesting that immunity has not been acquired. TESTING PERFORMED AT [facility]. ORIGINAL REPORT ON FILE IN LAB CONTAINS ADDITIONAL TEST SITE INFORMATION. Performed By: #### L 501.28653, L506.0400, L501.9520 #### [facility] [address] [place], [place], [address] Mumps Antibody,IgGon 025 MUMPS Ab, IgG < 9.0 Low Immune >10.9 [facility] Comment on above: Result Comment: Nega tive <9.0 Equivocal 9.0 - 10.9 Positive >10.9 A positive result generally indicates past exposure to Mumps virus or previous vaccination. Performed By: #### L 501.57932, L506.0400, L501.9520 #### [facility] [address] [place], [place], [address] WC EMP Rubeola Titeron 07-03 RUBEOLA Ab, IgG 137.0 AU/mL High Immune >16.4 [facility] Comment on above: Result Comment: Nega tive <13.5 Equivocal 13.5 - 16.4 Positive >16.4 Presence of antibodies to Rubeola is presumptive evidence of immunity except when acute infection is suspected. Performed at: [facility] [id number] Job Molder: Chance Waters PhD, Phone: [phone] Performed By: #### L 501.62057, L506.0400, L501.9520 #### [facility] [address] [place], [place], [address] Hepatitis B Surface Antibody on 07-19-2025 HEP B Surf Ab REAC Normal [facility] Comment on above: Result Comment: <8.5 mIU/mL: Non-Reactive 8.5<= x <11.5 mIU/mL: Indeterminate >=11.5 mIU/mL: Reactive Non Reactive: Inconsistent with immunity less than <10 mIU/mL Reactive: Consistent with immunity greater than or equal to 10 mIU/mL Performed By: #### L 3890.6202 #### [facility] [address] [place], [place], [address] Internal Medicine Office Vis iton 07-19-2025 Internal Medicine Office Visit [facility] [address] [place] [address] [place] [address] OFFICE VISIT Date of Service: 07/19/25 MR#: [id number] Acct: [id number] Name: SIERRA CORREA Rep #: [id number] : 1970 Provider: DAVID Westfall Age/Sex: 54/F Location: [facility] Status: Signed Intake Vital Signs 05/16/25 13:57 06/05/25 12:51 07/19/25 13:04 07/19/25 13:27 Height 5 ft 2 in 5 ft 2 in 5 ft 2 in Weight: 206 lb 6 oz 198 lb 6 oz BMI 37.7 36.3 BP 117/79 124/70 H Blood Pressure Location Rt brachial Lt brachial Position Sitting Sitting Respiration 17 16 Pulse 82 107 H 90 Pulse Source Monitor Monitor Palpation Temp 97.2 F L 97 F L Temp Source Temporal Temporal Pulse Oximetry (%) 99 99 Oxygen Delivery Method room air room air Intake Visit Reasons: 1 month follow up Chief Complaint: fu Bobbin Sorter Required: No Accompanied by: Self Is patient in pain?: No Allergies clindamycin Allergy (Severe, Verified 07/19/25 12:50) burning watery eyes Sulfa (Sulfonamide Antibiotics) Allergy (Severe, Verified 07/19/25 12:50) Hives erythromycin base Allergy (Verified 07/19/25 12:50) eye redness, watering, swelling Medications ???Medication ???Instructions ???Recorded ???Confirmed ???Type omeprazole magnesium 20 mg 20 mg PO BID #180 tabs 03/22/23 Rx tablet,delayed release (Prilosec OTC) clobetasol 0.05 % topical ointment 1 applic topical DAILY PRN skin 12/05/23 07/19/25 History irritation multivitamin 1 tab PO QAM 12/11/24 07/19/25 His tory valacyclovir 500 mg tablet 500 mg PO DAILY #30 TABLETS 07/19/25 Rx echinacea 400 mg capsule 400 mg PO DAILY 02/27/25 07/19/25 History rosuvastatin 10 mg tablet 10 mg PO QHS 05/28/25 10/17/25 His tory triamterene 37.5 1 tab PO QAM #90 tabs 04/02/25 Rx mg-hydrochlorothiazide 25 mg tablet metoprolol succinate 50 mg 50 mg PO BID #120 TABLETS 05/09/25 07/19/25 Rx tablet,extended release 24 hr brexpiprazole 2 mg tablet (Rexulti) 2 mg PO DAILY #30 tabs 05/13/25 07/19/25 Rx escitalopram oxalate 20 mg tablet 20 mg PO DAILY #90 tabs 06/19/25 07/19/25 Rx (Lexapro) phentermine 37.5 mg tablet 37.5 mg PO QDAY #30 tabs 06/25/25 07/19/25 Rx (Adipex-P) Nurse's Note: 1 month follow up phentermine is helping with hunger [facility] Medical History Alcohol abuse Kidney disease GERD [...] History current occupational status: employed current occupation: [employer] Smoking Status: Unknown if ever smoked alcohol intake: current alcohol intake frequency: a few times a month Alcohol type: wine substance use type: does not use caffeine: Yes what type of physical activity do you participate in: walking and other details: rowing frequency: 1-2 times per week HPI HPI Chief Complaint: fu Details: SIERRA CORREA, is a 54 F who presents to the office today for 1 month f/u since starting the adipex. She states that she has been compliant with the medication. She has not side effects or tolerance issues since starting the medications. She has tried to work on her dietary intake at the same has not been (more content not included)... Normal [facility] L509.4006on 07-19-2025 Rubella IgG Non-Reactive Normal Nonreactive [facility] Comment on above: Result Comment: Anti body Result: Interpretation Non-Reactive: Non-Immune Reactive: Immune The following results were obtained with the [employer] Rubella IgG assay. Results from assays of other manufacturers cannot be used interchangeably. Performed By: #### L 500.2500, L100.0100 #### [facility] [place], [address] Serum Varicella zoster virus IgG antibody assay by immunoassay (units/volume)Ordered By: [facility] on 07-19-2025 VZV IgG IA Qn (S) See comment [facility] Comment on above: TEST RESULTS LIMITSV aricella-Zoster V Ab, IgG Varicella Zoster IgG Reactive Non ReactivePlease note reference interval changeA Reactive result is considered evidence of immunity to VZV.Reactive indicates that VZV IgG was detected consistent withprevious infection and/or vaccination.A Non Reactive result indicates that VZV IgG was not detected suggesting that immunity has not been acquired. ____ TESTING PERFORMED AT [facility]. ORIGINAL REPORT ON FILE IN LAB CONTAINS ADDITIONAL TEST SITE INFORMATION. Serum hepatitis B virus surf suzanna antibody detectionOrdered By: [facility] on 07-19-2025 HBV surface Ab Ql (S) [facility] Comment on above: <8.5 mIU/mL: Non-Alice ctive8.5<= x <11.5 mIU/mL: Indeterminate>=11.5 mIU/mL: Reactive Non Reactive: Inconsistent with immunity less than <10 mIU/mL Reactive: Consistent with immunity greater than or equal to 10 mIU/mL Serum measles virus IgG anti body assay (units/volume)Ordered By: [facility] [employer] [facility] on 07-19-2025 MeV IgG Qn (S) 137.0 AU/mL High Immune >16.4 [facility] Comment on above: Negative <13.5 Equiv ocal 13.5 - 16.4 Positive >16.4Presence of antibodies to Rubeola is presumptive evidenceof immunity except when acute infection is suspected.Performed at: [address] [id number] Director: Chance Waters PhD, Phone: [phone] Serum mumps virus IgG antibo dy assay (units/volume)Ordered By: [facility] on 07-19-2025 MuV IgG Qn (S) < 9.0 AU/mL Low Immune >10.9 [facility] Comment on above: Negative <9.0 Equivo devendra 9.0 - 10.9 Positive >10.9A positive result generally indicates past exposure toMumps virus or previous vaccination. Surgery Visit Reporton 07-19 Surgery Visit Report [facility] [address] [place] [address]. [address] [place] [address] OFFICE VISIT Date of Service: 07/19/25 MR#: [id number] Acct: [id number] Name: SIERRA CORREA Rep #: [id number] : 1970 Provider: Dr. Trevor joiner MD Age/Sex: 54/F Location: [facility] Status: Signed Intake Vital Signs 06/05/25 12:51 07/19/25 13:04 07/19/25 14:27 Height 5 ft 2 in 5 ft 2 in 5 ft 2 in Weight: 198 lb 6 oz 198 lb BMI 36.3 36.2 BP 124/70 H 97/66 Blood Pressure Location Lt brachial Rt brachial Position Sitting Sitting Respiration 16 16 Pulse 107 H Pulse Source Monitor Temp 97 F L Temp Source Temporal Pulse Oximetry (%) 99 97 Oxygen Delivery Method room air room air Intake Visit Reasons: discuss thyroid lobectomy Chief Complaint: discuss thyroid surgery Bobbin Sorter Required: No Is patient in pain?: No Allergies clindamycin Allergy (Severe, Verified 07/19/25 14:28) burning watery eyes Sulfa (Sulfonamide Antibiotics) Allergy (Severe, Verified 07/19/25 14:28) Hives erythromycin base Allergy (Verified 07/19/25 14:28) eye redness, watering, swelling Have you fallen in the past year?: No PFSH Medical History Alcohol abuse Kidney disease [...] History current occupational status: employed current occupation: [employer] Smoking Status: Unknown if ever smoked alcohol intake: current alcohol intake frequency: a few times a month Alcohol type: wine substance use type: does not use caffeine: Yes what type of physical activity do you participate in: walking and other details: rowing frequency: 1-2 times per week HPI HPI HPI: Patient is a 54-year-old female who established with hi for a diagnosis of multiple thyroid nodules and is status post FNA 06/05/2025. She was last seen 06/05/2025. She shares that following the biopsy (including aspiration) there was a smidge of a difference with her symptoms and she goes on to state that for 3 to 4 days she felt really good, however, her symptoms have now returned. She denies any recent health updates but does report starting a new job. Below is recapitulated from patient's prior visit for ease of review: Patient is a 54-year-old female who established with hi for a diagnosis of multiple thyroid nodules and is status post FNA 01/21/2023. Her last visit 01/11/2025. Unfortunately during her workup for compressive symptoms she was found to demonstrate evidence of a possible pulmonary embolism as well as a brain mass. Repeat testing did not confirm the presence of a pulmonary embolism, however, the brain mass was a true finding and patient was immediately evaluated at a tertiary center before ultimately undergoing craniectomy with excision of a benign meningioma. She states that she is now 13 weeks postop. She is pleased with her recovery. She continues to complain of swallowing difficulty with both food and drink. She denies any voice changes. She denies any new dry cough. Below is recapitulated from patient's prior visit for ease review: Patient is a 54-year-old female who established with hi for a diagnosis of multiple thyroid nodules and is status post FNA 01/21/2023. Her last vis (more content not included)... Normal [facility] Non-gynecologic cytology rep ortOrdered By: Delores Richard on 06-21-[address] [facility] Pap Stain (control)on 2024 Pap Stain (control) ---- Patient Age/Sex Location Account Attending Physician SIERRA Correa Cira 54/F LABSPEC [id number] Dr. Trevor Lanier MD Specimen: [id number] Received: 06/05/25 Status: FAMILIA Taylor Num: [id number] Spec Type: CYSPIN FL [facility] Dr: Dr. Trevor Lanier MD HEADER OPERATION: Fine needle aspiration of thyroid nodule PRE-OP DIAGNOSIS: Right thyroid nodule TISSUE SUBMITTED: A- Right thyroid nodule, B- Right thyroid nodule DIAGNOSIS CYTOLOGY A. Right thyroid nodule, FNA (cytospin, smear x4): - Atypical cells of undetermined significance (TBS III). Note: Afirma testing is submitted. A separate report will follow. B. Right thyroid nodule, FNA (cytospin): - Non-diagnostic (TBS I). - Inadequate cellularity. CYTOLOGY STUDY Slides are reviewed. CYTOLOGY GROSS A. Received is 30 ml of pink-cloudy cytolyt with particles and 4 smears labeled with the patient's name and and designated per the requisition as Right thyroid nodule. Submitted for cytology and cytospin. B. Received is 5 ml of [id number] fluid labeled with the patient's name and and designated per the requisition as Right thyroid nodule. Submitted for cytology and cytospin. 06/05/2025 CPT: 61772,81272,10219 ADDENDUM Addendum 1 Entered: 07/03/25 [facility] RESULTS REPORT RESULTS INTERPRETATION: The result of this 2.7 cm [place] III nodule A is Afirma GSC benign, which suggests a low risk of cancer of approximately 4%. Treatment like a Patient Age/Sex Location Account Attending Physician SIERRA Correa 54/F LABSPEC [id number] Dr. Trevor Lanier MD ADDENDUM (Continued) cytologically benign nodule may be appropriate, including clinical correlation. Afirma XA is not performed on GSC Benign nodules. TERT promoter region analysis is not performed on GSC Benign nodules. Please see complete report in e-chart or EMR Addendum Signed (signature on file) Dr. Delores Richard MD 07/03/25 0943 Signed (signature on file) Dr. Delores Richard MD 06/21/[address] [facility] Comment on above: Performed By: #### L 500.2500, L100.0100 #### [facility] [address] [place], [address] Surgery Visit Reporton 06-05 Surgery Visit Report [facility] [address] [place] [address] OFFICE VISIT Date of Service: 06/05/25 MR#: [id number] Acct: [id number] Name: SIERRA Correa Rep #: [id number] : 1970 Provider: Dr. Trevor joiner MD Age/Sex: 54/F Location: [facility] Status: Signed Intake Vital Signs 04/02/25 09:30 05/16/25 13:57 06/05/25 12:51 Height 5 ft 2 in 5 ft 2 in 5 ft 2 in Weight: 206 lb 6 oz BMI 37.7 BP 117/79 Blood Pressure Location Rt brachial Position Sitting Respiration 17 Pulse 82 Pulse Source Monitor Temp 97.2 F L Temp Source Temporal Pulse Oximetry (%) 99 Oxygen Delivery Method room air Intake Visit Reasons: REPEAT THYROID FNA Chief Complaint: repeat thyroid FNA Is patient in pain?: No Allergies clindamycin Allergy (Severe, Verified 06/05/25 12:52) burning watery eyes Sulfa (Sulfonamide Antibiotics) Allergy (Severe, Verified 06/05/25 12:52) Hives erythromycin base Allergy (Verified 06/05/25 12:52) eye redness, watering, swelling Medications ???Medication ???Instructions ???Recorded ???Confirmed ???Type omeprazole magnesium 20 mg 20 mg PO BID #180 tabs 03/22/23 Rx tablet,delayed release (Prilosec OTC) clobetasol 0.05 % topical ointment 1 applic topical DAILY PRN skin 12/05/23 06/05/25 History irritation multivitamin 1 tab PO QAM 12/11/24 06/05/25 His tory valacyclovir 500 mg tablet 500 mg PO DAILY #30 TABLETS 06/05/25 Rx echinacea 400 mg capsule 400 mg PO DAILY 02/27/25 06/05/25 History escitalopram oxalate 20 mg tablet 20 mg PO DAILY 02/27/25 06/05/25 History (Lexapro) rosuvastatin 10 mg tablet 10 mg PO QHS 02/27/25 06/05/25 His tory triamterene 37.5 1 tab PO QAM #90 tabs 04/02/2512/25 Rx mg-hydrochlorothiazide 25 mg tablet metoprolol succinate 50 mg 50 mg PO BID #120 TABLETS 05/09/25 06/05/25 Rx tablet,extended release 24 hr brexpiprazole 2 mg tablet (Rexulti) 2 mg PO DAILY #30 tabs 05/13/25 06/05/25 Rx clonazepam 1 mg tablet (Klonopin) 1 - 2 mg (1 - 2 x 1 mg) PO QHS ID N 05/21/25 06/05/25 Rx panic attack(s) 30 days #60 tabs phentermine 37.5 mg tablet 18.75 mg (1/2 x 37.5 mg) PO QDAY 0 06/04/25 06/05/25 Rx (Adipex-P) #30 tabs PFSH Medical History Alcohol abuse Kidney disease [...] History current occupational status: employed current occupation: [employer] Smoking Status: Unknown if ever smoked alcohol intake: current alcohol intake frequency: a few times a month Alcohol type: wine substance use type: does not use caffeine: Yes what type of physical activity do you participate in: walking and other details: rowing frequency: 1-2 times per week HPI HPI HPI: Patient is a 54-year-old female who established with hi for a diagnosis of multiple thyroid nodules and is status post FNA 01/21/2023. Her last visit 01/11/2025. Unfortunately during her workup for compressive symptoms she was found to demonstrate evidence of a possible pulmonary embolism as well as a brain mass. Repeat testing did not confirm the presence of a pulmonary embolism, blood (more content not included)... Normal [facility] Absolute lymphocyte countOrd ered By: Rob Sampson on 05-16-2025 Lymphocytes Auto (Unsp spec) [#/Vol] 1.90 10*3/uL 0.83-4.51 [facility] Absolute neutrophil countOrd ered By: Rob Sampson on 05-16-2025 Neutrophils (Bld) [#/Vol] 4.9 10*3/uL 2.0-7.7 [facility] Anion gap in Serum or Plasma Ordered By: Rob Sampson on 05-16-2025 Anion gap [Moles/Vol] 14 mmol/L 5- [facility] Automated lymphocyte count a s percentage of total leukocytesOrdered By: Rob Sampson on 05-16-2025 Lymphocytes/100 WBC Auto (Unsp spec) 23.1 % 19- [facility] BUN/creatinine ratioOrdered By: Rob Wayt on 05-16-2025 Urea nitrogen/Creatinine [Mass ratio] 12.8 mg/mg 10- [facility] Basophil percentageOrdered B y: Rob Sampson on 05-16-2025 Basophils/100 WBC (Bld) 0.9 % 0-1 [facility] Bilirubin, totalOrdered By: Rob Sampson on 05-16-2025 Bilirubin [Mass/Vol] 0.38 mg/dL 0.00-1.30 [facility] CBC W/Diff, Automatedon 05-03 Absolute Lymph 1.90 X10 3/uL Normal 0.83-4.51 [facility] Comment on above: Performed By: #### L 100.0100, L500.4050, L501.9520 #### [facility] [address] [place], [address] Absolute Neut 4.9 X10 3/uL Normal 2.0-7.7 [facility] Comment on above: Performed By: #### L 100.0100, L500.4050, L501.9520 #### [facility] [address] [place], [address] Basophils/100 WBC (Bld) 0.9 % Normal 0-1 [facility] Comment on above: Performed By: #### L 100.0100, L500.4050, L501.9520 #### [facility] [address] [place], [address] Eosinophils/100 WBC (Bld) 10.3 % High 0-5 [facility] Comment on above: Performed By: #### L 100.0100, L500.4050, L501.9520 #### [facility] [address] [place], [address] Erythrocyte distribution width (RBC) [Ratio] 15.0 % High 11.6-14.6 [facility] Comment on above: Performed By: #### L 100.0100, L500.4050, L501.9520 #### [facility] [address] [place], [address] Hematocrit (Bld) [Volume fraction] 30.5 % Low 37-47 [facility] Comment on above: Performed By: #### L 100.0100, L500.4050, L501.9520 #### [facility] [address] [place], [address] Hemoglobin (Bld) [Mass/Vol] 10.5 g/dL Low 12.0-15.0 [facility] Comment on above: Performed By: #### L 100.0100, L500.4050, L501.9520 #### [facility] [address] [place], [address] IG% 1.000 High 0.0-0.9 [facility] Comment on above: Result Comment: IG% - Immature Granulocytes (promyelocytes, myelocytes and metamyelocytes) > 1% indicates that a LEFT SHIFT is Present. Performed By: #### L 100.0100, L500.4050, L501.9520 #### [facility] [address] [place], [address] Lymphocytes/100 WBC (Bld) 23.1 % Normal 19-41 [facility] Comment on above: Performed By: #### L 100.0100, L500.4050, L501.9520 #### [facility] [address] [place], [address] MCH (RBC) [Entitic mass] 28.4 pg Normal 27.0-32.0 [facility] Comment on above: Performed By: #### L 100.0100, L500.4050, L501.9520 #### [facility] [address] [place], [address] MCHC (RBC) [Mass/Vol] 34.4 g/dL Normal 32-36 [facility] Comment on above: Performed By: #### L 100.0100, L500.4050, L501.9520 #### [facility] [address] [place], [address] MCV (RBC) [Entitic vol] 82.4 fL Normal 81-99 [facility] Comment on above: Performed By: #### L 100.0100, L500.4050, L501.9520 #### [facility] [address] [place], [address] Monocytes/100 WBC (Bld) 5.5 % Normal 0-10 [facility] Comment on above: Performed By: #### L 100.0100, L500.4050, L501.9520 #### [facility] [address] [place], [address] Neutrophils/100 WBC (Bld) 59.2 % Normal 47-70 [facility] Comment on above: Performed By: #### L 100.0100, L500.4050, L501.9520 #### [facility] [address] [place], [address] Nucleated RBC (Bld) [#/Vol] 0 10*3/uL Normal 0-5 [facility] Comment on above: Performed By: #### L 100.0100, L500.4050, L501.9520 #### [facility] [address] [place], [address] Platelet mean volume (Bld) [Entitic vol] 9.4 fL Normal 6.2-12.0 [facility] Comment on above: Performed By: #### L 100.0100, L500.4050, L501.9520 #### [facility] [address] [place], [address] Platelets (Bld) [#/Vol] 285 10*3/uL Normal 150-450 [facility] Comment on above: Performed By: #### L 100.0100, L500.4050, L501.9520 #### [facility] [address] [place], [address] RBC (Bld) [#/Vol] 3.70 10*6/uL Low 4.2-5.4 [facility] Comment on above: Performed By: #### L 100.0100, L500.4050, L501.9520 #### [facility] [address] [place], [address] RDW SD 44.5 fl High 35.1-43.9 [facility] Comment on above: Performed By: #### L 100.0100, L500.4050, L501.9520 #### [facility] [address] [place], [address] WBC (Bld) [#/Vol] 8.2 10*3/uL Normal 4.4-11.0 [facility] Comment on above: Performed By: #### L 100.0100, L500.4050, L501.9520 #### [facility] [address] [place], [address] Carbon dioxide, total [Moles /volume] in Central venous bloodOrdered By: Rob Sampson on 05-16-2025 CO2 [Moles/Vol] 25.3 mmol/L 21.0-32.0 [facility] Chloride assayOrdered By: Shey Sampson on 05-16-2025 Chloride [Moles/Vol] 102 mmol/L 98-108 [facility] Comprehensive Metabolic Prof ilon 05-16-2025 Albumin [Mass/Vol] 4.5 g/dL Normal 3.5-5.0 [facility] Comment on above: Performed By: #### L 100.0100, L500.4050, L501.9520 #### [facility] [address] [place], [address] Albumin/Globulin [Mass ratio] 1.7 {ratio} Normal 0.9-2.4 [facility] Comment on above: Performed By: #### L 100.0100, L500.4050, L501.9520 #### [facility] [address] [place], [address] ALK PHOS 131 U/L High 35-104 [facility] Comment on above: Performed By: #### L 100.0100, L500.4050, L501.9520 #### [facility] [address] [place], [address] ALT [Catalytic activity/Vol] 41 U/L High <=34 [facility] Comment on above: Performed By: #### L 100.0100, L500.4050, L501.9520 #### [facility] [address] [place], [address] AST [Catalytic activity/Vol] 36 U/L High <=31 [facility] Comment on above: Performed By: #### L 100.0100, L500.4050, L501.9520 #### [facility] [address] [place], [address] Bilirubin [Mass/Vol] 0.38 mg/dL Normal 0.00-1.30 [facility] Comment on above: Performed By: #### L 100.0100, L500.4050, L501.9520 #### [facility] [address] [place], [address] BUN/CRE 12.8 RATIO Normal 10-20 [facility] Comment on above: Performed By: #### L 100.0100, L500.4050, L501.9520 #### [facility] [address] [place], [address] Calcium [Mass/Vol] 9.1 mg/dL Normal 7.6-11.0 [facility] Comment on above: Performed By: #### L 100.0100, L500.4050, L501.9520 #### [facility] [address] [place], [address] Chloride [Moles/Vol] 102 mmol/L Normal 98-108 [facility] Comment on above: Performed By: #### L 100.0100, L500.4050, L501.9520 #### [facility] [address] [place], [address] CO2 [Moles/Vol] 25.3 mmol/L Normal 21.0-32.0 [facility] Comment on above: Performed By: #### L 100.0100, L500.4050, L501.9520 #### [facility] [address] [place], [address] Creatinine [Mass/Vol] 0.97 mg/dL Normal 0.70-1.20 [facility] Comment on above: Performed By: #### L 100.0100, L500.4050, L501.9520 #### [facility] [address] [place], [address] GAP 14 Normal 5-15 [facility] Comment on above: Performed By: #### L 100.0100, L500.4050, L501.9520 #### [facility] [address] [place], [address] GFR/1.73 sq M.predicted among non-blacks MDRD (S/P/Bld) [Vol rate/Area] 70 mL/min/{1.73_m2} Normal >60 [facility] Comment on above: Result Comment: mL/m in/1.73m2 CKD-EPI Creatinine Equation (2020) Performed By: #### L 100.0100, L500.4050, L501.9520 #### [facility] [address] [place], [address] Globulin (S) [Mass/Vol] 2.6 g/dL Normal 2.2-4.2 [facility] Comment on above: Performed By: #### L 100.0100, L500.4050, L501.9520 #### [facility] [address] [place], [address] Glucose [Mass/Vol] 97 mg/dL Normal 70-99 [facility] Comment on above: Performed By: #### L 100.0100, L500.4050, L501.9520 #### [facility] [address] [place], [address] Potassium [Moles/Vol] 3.8 mmol/L Normal 3.3-5.1 [facility] Comment on above: Performed By: #### L 100.0100, L500.4050, L501.9520 #### [facility] [address] [place], [address] Sodium [Moles/Vol] 141 mmol/L Normal 133-145 [facility] Comment on above: Performed By: #### L 100.0100, L500.4050, L501.9520 #### [facility] [address] [place], [address] T PROT 7.1 g/dL Normal 5.9-8.4 [facility] Comment on above: Performed By: #### L 100.0100, L500.4050, L501.9520 #### [facility] [address] [place], [address] Urea nitrogen [Mass/Vol] 12 mg/dL Normal 4-19 [facility] Comment on above: Performed By: #### L 100.0100, L500.4050, L501.9520 #### [facility] [address] [place], [address] Eosinophil percentageOrdered By: Rob Sampson on 05-16-2025 Eosinophils/100 WBC (Bld) 10.3 % High 0-5 [facility] Erythrocyte distribution wid th ratioOrdered By: Rob Sampson on 05-16-2025 Erythrocyte distribution width (RBC) [Ratio] 15.0 % High 11.6-14.6 [facility] Erythrocyte distribution wid th standard deviationOrdered By: Rob Sampson on 05-16-2025 Erythrocyte distribution width (RBC) [Ratio] 44.5 fl High 35.1-43.9 [facility] Glomerular filtration rate ( GFR) estimation/1.73 sq m using serum, plasma, or whole bOrdered By: Rob Sampson on 05-16-2025 GFR/1.73 sq M.predicted among non-blacks MDRD (S/P/Bld) [Vol rate/Area] 70 mL/min/{1.73_m2} >60 [facility] Comment on above: mL/min/1.73m2 CKD-EP I Creatinine Equation (2020) Hematocrit Auto (Bld) [Volum e fraction]Ordered By: Rob Sampson on 05-16-2025 Hematocrit (Bld) [Volume fraction] 30.5 % Low 37-47 [facility] Hemoglobin measurementOrdere d By: Rob Sampson on 05-16-2025 Hemoglobin (Bld) [Mass/Vol] 10.5 g/dL Low 12.0-15.0 [facility] Immature granulocytes/100 WB C Auto (Bld)Ordered By: Rob Sampson on 05-16-2025 Immature granulocytes/100 WBC (Bld) 1.000 % High 0.0-0.9 [facility] Comment on above: IG% - Immature Granu locytes (promyelocytes, myelocytes and metamyelocytes) > 1% indicates that a LEFT SHIFT is Present. Internal Medicine Office Vis iton 05-16-2025 Internal Medicine Office Visit [facility] [address] [place], [place] [address] OFFICE VISIT Date of Service: 05/16/25 MR#: [id number] Acct: [id number] Name: SIERRA PATTON Rep #: [id number] : 1970 Provider: DAVID Westfall Age/Sex: 54/F Location: [facility] Status: Signed Intake Vital Signs 04/02/25 09:30 05/16/25 13:57 Height 5 ft 2 in 5 ft 2 in Weight: 200 lb 2 oz 208 lb 2 oz BMI 36.6 38.0 BP 110/70 118/72 Blood Pressure Location Lt brachial Lt brachial Position Sitting Sitting Respiration 16 16 Pulse 93 91 Pulse Source Monitor Monitor Temp 97.6 F L 97.5 F L Temp Source Temporal Temporal Pulse Oximetry (%) 97 96 Oxygen Delivery Method room air room air Intake Visit Reasons: 10 weeks since surgery. Swelling all over. Painful Chief Complaint: swelling everywhere Bobbin Sorter Required: No Accompanied by: Self Is patient in pain?: No Allergies clindamycin Allergy (Severe, Verified 05/16/25 13:51) burning watery eyes Sulfa (Sulfonamide Antibiotics) Allergy (Severe, Verified 05/16/25 13:51) Hives erythromycin base Allergy (Verified 05/16/25 13:51) eye redness, watering, swelling Medications ???Medication ???Instructions ???Recorded ???Confirmed ???Type omeprazole magnesium 20 mg 20 mg PO BID #180 tabs 03/22/23 Rx tablet,delayed release (Prilosec OTC) clobetasol 0.05 % topical ointment 1 applic topical DAILY PRN skin 12/05/23 05/16/25 History irritation multivitamin 1 tab PO QAM 12/11/24 05/16/25 His tory valacyclovir 500 mg tablet 500 mg PO DAILY #30 TABLETS 05/16/25 Rx echinacea 400 mg capsule 400 mg PO DAILY 02/27/25 05/16/25 History escitalopram oxalate 20 mg tablet 20 mg PO DAILY 02/27/25 05/16/25 History (Lexapro) rosuvastatin 10 mg tablet 10 mg PO QHS 02/27/25 05/16/25 His tory triamterene 37.5 1 tab PO QAM #90 tabs 04/02/25 Rx mg-hydrochlorothiazide 25 mg tablet clonazepam 1 mg tablet (Klonopin) 1 - 2 mg (1 - 2 x 1 mg) PO QHS ID N 04/25/25 05/16/25 Rx panic attack(s) 30 days #60 tabs metoprolol succinate 50 mg 50 mg PO BID #120 TABLETS 05/09/25 05/16/25 Rx tablet,extended release 24 hr brexpiprazole 2 mg tablet (Rexulti) 2 mg PO DAILY #30 tabs 05/13/25 05/16/25 Rx Nurse's Note: swelling all over, hands ankles legs stomach weight gain PFSH Medical History Alcohol abuse Kidney disease [...] History current occupational status: employed current occupation: [employer] Smoking Status: Unknown if ever smoked alcohol intake: current alcohol intake frequency: a few times a month Alcohol type: wine substance use type: does not use caffeine: Yes what type of physical activity do you participate in: walking and other details: rowing frequency: 1-2 times per week HPI HPI Chief Complaint: swelling everywhere Details: SIERRA PATTON, is a 54 F who presents to the office today for some swelling and some increase in her weight. She states that the swelling has been occurring on both of the lower extremities with the left being a tiny bit worse than the right. She has noticed feeling puffy in the fingers and wrists and (more content not included)... Normal [facility] - Chemistry and C hemistry - challengeOrdered By: Rob Sampson on 05-16-2025 AST [Catalytic activity/Vol] 36 U/L High <32 [facility] MCV (mean corpuscular volume ) determinationOrdered By: Rob Sampson on 05-16-2025 MCV (RBC) [Entitic vol] 82.4 fL 81-99 [facility] Mean corpuscular hemoglobin (MCH) determinationOrdered By: Rob Sampson on 05-16-2025 MCH (RBC) [Entitic mass] 28.4 pg 27.0-32.0 [facility] Mean corpuscular hemoglobin concentration (MCHC) determinationOrdered By: Rob Sampson on 05-16-2025 MCHC (RBC) [Mass/Vol] 34.4 g/dL 32-36 [facility] Mean platelet volume determi nationOrdered By: Rob Sampson on 05-16-2025 Platelet mean volume (Bld) [Entitic vol] 9.4 fL 6.2-12.0 [facility] Monocyte percentageOrdered B y: Rob Sampson on 05-16-2025 Monocytes/100 WBC (Bld) 5.5 % 0-10 [facility] Neutrophil percentageOrdered By: Rob Sampson on 05-16-2025 Neutrophils/100 WBC (Bld) 59.2 % 47-70 [facility] Nucleated red blood cell per centageOrdered By: Rob Sampson on 05-16-2025 Nucleated RBC/100 WBC (Bld) [Ratio] 0 % 0-5 [facility] Platelet countOrdered By: Shey ttcamille Sampson on 05-16-2025 Platelets (Bld) [#/Vol] 285 10*3/uL 150-450 [facility] Potassium measurement (mass/ volume)Ordered By: Rob Sampson on 05-16-2025 Potassium (Unsp spec) [Mass/Vol] 3.8 mmol/L 3.3-5.1 [facility] RBC Auto (Bld) [#/Vol]Ordere d By: Rob Sampson on 05-16-2025 RBC (Bld) [#/Vol] 3.70 10*6/uL Low 4.2-5.4 [facility] Serum creatinine measurement (mass/volume)Ordered By: Rob Sampson on 05-16-2025 Creatinine [Mass/Vol] 0.97 mg/dL 0.70-1.20 [facility] Serum globulin measurementOr dered By: Rob Sampson on 05-16-2025 Globulin (S) [Mass/Vol] 2.6 g/dL 2.2-4.2 [facility] Serum glucose measurement (m ass/volume)Ordered By: Rob Sampson on 05-16-2025 Glucose [Mass/Vol] 97 mg/dL 70-99 [facility] Serum or plasma alanine drew otransferase (ALT) measurementOrdered By: Rob Sampson on 05-16-2025 ALT [Catalytic activity/Vol] 41 U/L High <35 [facility] Serum or plasma albumin susanna urement (mass/volume)Ordered By: Rob Sampson on 05-16-2025 Albumin [Mass/Vol] 4.5 g/dL 3.5-5.0 [facility] Serum or plasma albumin/glob ulin mass ratioOrdered By: Rob Sampson on 05-16-2025 Albumin/Globulin [Mass ratio] 1.7 {ratio} 0.9-2.4 [facility] Serum or plasma alkaline marlon sphatase measurementOrdered By: Rob Sampson on 05-16-2025 ALP [Catalytic activity/Vol] 131 U/L High 35-104 [facility] Serum or plasma calcium susanna urement (mass/volume)Ordered By: Rob Sampson on 05-16-2025 Calcium [Mass/Vol] 9.1 mg/dL 7.6-11.0 [facility] Serum or plasma urea nitroge n measurement (mass/volume)Ordered By: oRb Sampson on 05-16-2025 Urea nitrogen [Mass/Vol] 12 mg/dL 4-19 [facility] Sodium levelOrdered By: Maikol Sampson on 05-16-2025 Sodium [Moles/Vol] 141 mmol/L 133-145 [facility] TSH DL <= 0.005 mIU/L QnOrde red By: Rob Sampson on 05-16-2025 TSH Qn 1.210 uIU/mL 0.300-4.200 [facility] Thyroid Stim Hormone (TSH)on 05-16-2025 TSH 1.210 uIU/mL Normal 0.300-4.200 [facility] Comment on above: Performed By: #### L 100.0100, L500.4050, L501.9520 #### [facility] [address] [place], [place] [address], [id number] Total proteinOrdered By: Delgado Sampson on 05-16-2025 Protein [Mass/Vol] 7.1 g/dL 5.9-8.4 [facility] White blood cell (WBC) count Ordered By: Rob Sampson on 05-16-2025 WBC (Bld) [#/Vol] 8.2 10*3/uL 4.4-11.0 [facility] CNOVon 05-07-2025 CNOV Office Visit (NEAGCL M) -------- SIERRA PATTON ([id number]) 1970 F Date Time Provider Department 05/07/25 9:30 AM FABRIZIO AMBROCIO NEAGCLM During your visit today, we recorded the following information about you: Pulse Respiration Blood pressure Weight 85/minute 16/minute 111/75 94.7 kg Height 1.575 m Fabrizio Ambrocio MD 05/08/2025 8:12 AM Addendum NEUROSURGERY POST OP NOTE Dr. Fabrizio Ambrocio MD, [facility] Date of visit: May 07, 2025 Patient Name: Ms.Connie Cira Patton Date of : 1970 Current Age: [age] year old MRN/E# [id number] Last Office Visit: 04/09/2025 CHIEF COMPLAINT: Patient [...] Ambrocio was notified of this change by adFreeq message on 03/14/2025. PRE-SURGICAL SYMPTOMS: Cognitive difficulty, blurry vision, mood swings, frontal headache, decreased sense of smell INCISION: Healed HISTORY OF PRESENT ILLNESS : The patient presents for a 8-week post operative visit with imaging (MRI B) for evaluation. This is a 54-year-old female with a PMHx of thyroid disease, obesity, anxiety who was seen for consult at [facility] on 03/01/2025. She reported that she [...] with 10 (more content not included)... Normal [facility] MR Brain WO and W contrast I Von 04-30-2025 IMPRESSION: Postoperative changes as above with minimal linear enhancement at the operative site which is most likely postoperative in nature although follow-up is recommended.. Wood Caulker: LG Transcribe Date/Time: Apr 30 2025 2:42P Dictated by : WALESKA BAZZI MD This examination was interpreted and the report reviewed and electronically signed by: WALESKA BAZZI MD on Apr 30 2025 2:47PM [facility] DIVISION OF RADIOLOGY * * *Final Report* * * DATE OF EXAM: Apr 30 2025 2:08PM [facility] 0295 - MRI BRAIN WO/W IVCON / [...] imaged paranasal sinuses. DIVISION OF RADIOLOGY [facility] * * *Final Report* * * DATE OF EXAM: Apr 30 2025 2:08PM [facility] 0295 - MRI BRAIN WO/W IVCON / [...] postoperative in nature although follow-up is recommended.. Wood Caulker: LG Transcribe Date/Time: Apr 30 2025 2:42P Dictated by : WALESKA BAZZI MD This examination was interpreted and the report reviewed and electronically signed by: WALESKA BAZZI MD on Apr 30 2025 2:47PM [facility] Radiology Study observation (narrative) [facility] MR Brain WO and W contrast I VOrdered By: Ccf Provider on 04-30-2025 [facility] MRI BRAIN WO/W IVCONon 04-30 MRI BRAIN WO/W IVCON * * *Final Report* * * DATE OF EXAM: Apr 30 2025 2:08PM [facility] 0295 - MRI BRAIN WO/W IVCON / [...] postoperative in nature although follow-up is recommended.. Wood Caulker: PSCB Transcribe Date/Time: Apr 30 2025 2:42P Dictated by : WALESKA BAZZI MD This examination was interpreted and the report reviewed and electronically signed by: WALESKA BAZZI MD on Apr 30 2025 2:47PM EST [id number] Normal [facility] CNOVon 04-09-2025 CNOV Office Visit (NEAGCL M) -------- SIERRA PATTON ([id number]) 1970 F Date Time Provider Department 04/09/25 10:00 AM FABRIZIO AMBROCIO NEAGCLM During your visit today, we recorded the following information about you: Pulse Blood pressure Weight Height 68/minute 104/54 91.1 kg 1.575 m Fabrizio Ambrocio MD 04/09/2025 10:19 AM Signed NEUROSURGERY POST OP NOTE Dr. Fabrizio Ambrocio MD, [facility] Date of visit: April 09, 2025 Patient Name: Ms.Connie Cira Patton Date of : 1970 Current Age: [age] year old MRN/E# [id number] Last Office Visit: 03/22/2025 CHIEF COMPLAINT: Patient [...] Ambrocio was notified of this change by adFreeq message on 03/14/2025. PRE-SURGICAL SYMPTOMS: Cognitive difficulty, [...] disease, obesity, anxiety who was seen at [facility] for consult on 03/01/2025. Patient stated [...] Take 20 mg by mouth once daily. triamterene/hydrochlorot hiazid (DYAZIDE ORAL) Take 0.5 mg by mouth [...] contrast ( (more content not included)... Normal [facility] Internal Medicine Office Vis iton 04-02-2025 Internal Medicine Office Visit [facility] [address] [place], [place] [address] OFFICE VISIT Date of Service: 04/02/25 MR#: [id number] Acct: [id number] Name: SIERRA PATTON Rep #: [id number] : 1970 Provider: Dr. Mati aj, DO Age/Sex: 54/F Location: [facility] Status: Signed Intake Vital Signs 02/06/25 13:07 [...] Reasons: 2 M FU Chief Complaint: fu Bobbin Sorter Required: No Accompanied by: Self Is patient [...] History current occupational status: employed current occupation: [employer] Smoking Status: Unknown if ever smoked alcohol [...] meningioma removed from her frontal lobe at [facility]. This was an incidental unexpected finding when she was having a workup for thyroid nodules. She has recovered remarkably quickly although still has some changes in her handwriting and intermammary but all in all she looks much more alert and optimistic than when I had last seen her. ROS Const Constitutional: (more content not included)... Normal [facility] CNCOon 03-22-2025 CNCO Letter Text Normal [facility] CNOVon 03-22-2025 CNOV Office Visit (NEAGCL M) -------- SIERRA PATTON ([id number]) 1970 F Date Time Provider Department 03/22/25 [...] 1970 Current Age: [age] year old MRN/E# [id number] Last Office Visit: Postop CHIEF COMPLAINT: Patient [...] Ambrocio was notified of this change by adFreeq message on 03/14/2025. PRE-SURGICAL SYMPTOMS: Cognitive difficulty, [...] disease, obesity, anxiety who was seen at [facility] for consult on 03/01/2025. Patient stated [...] Take 20 mg by mouth once daily. triamterene/hydrochlorot hiazid (DYAZIDE ORAL) Take 0.5 mg by mouth [...] swelling. Gastrointestinal (more content not included)... Normal [facility] CNDSon 03-09-2025 [facility] HNO ID: [id number] Author: FABRIZIO AMBROCIO MD Service: Neurosurgery Author Type: Nurse Practitioner Type: Discharge Summary Filed: 03/11/2025 13:59 Note Text: -------- Attestation signed by Fabrizio Ambrocio MD at 03/11/2025 1:59 PM I agree with the Discharge Summary and Follow Up Care as written by Aliya Reza. -------- DISCHARGE SUMMARY PATIENT NAME: Sierra Patton Code [...] Medications These medications were sent to e- [facility]/pharmacy #[id number] [place] [address] - [address] [facility] - [phone] [place] [address] dexAMETHasone 1 mg tablet levETIRAcetam 500 mg [...] 03/22/2025 10:00 AM Fabrizio Ambrocio MD [facility] [place] [facility] Follow Up Appointments Follow-up Appointment Appointment requested, office will contact you When: In 2 weeks Fabrizio Ambrocio MD [phone] [address] [facility] [address] PCP Requested Referral I have performed the ikmr-nd-sgio and relevant services for a total of >30 minutes. SIGNATURE: Aliya Reza APRN.ACID ETCH OPERATOR PAGER/CONTACT #: [phone] DATE: March 09, 2025 TIME: 8:57 AM Normal [facility] CONSULT PROGon 03-08-2025 CONSULT PROG HNO ID: [id number] Author: NATTY PATEL MD Service: Hospital Medicine Author Type: Physician Type: Consult Progress Note Filed: 03/08/2025 13:21 Note Text: DEPARTMENT OF HOSPITAL MEDICINE PROGRESS NOTE SERVICE DATE: 03/08/2025 SERVICE TIME: 12:25 PM Hospital Medicine/Primary Attending: Natty Patel MD NIGHT AND WEEKEND COVERAGE: After 7pm please page [phone] MEDICATIONS: Current Facility-Administered Medications Medication Dose Route [...] today's visit: Lab data: CBC: Recent Labs 03/07/25 0217 03/06/25 1724 03/03/25 0504 WBC 19.81* 20.37* 9.27 HB 10.6* 11.2* 11.6 HCT 32.4* 33.7* 35.6* PLT 320 353 309 MCV 85.9 86.0 86.2 RDWCV 15.3* 14.9 14.9 NEUTP 93.0 -- 57.5 ABSNEUT 18.42* -- 5.33 LYMPHP 0.0 -- 32.3 MONOP 5.0 -- 6.0 EODINP -- -- 1.4 COAG: Recent Labs 03/05/256 APTT 27.2 INR 1.0 BMP: Recent Labs 03/07/25 0217 03/06/25 1724 03/03/25 0504 GLUC 152* 114* 101* [...] Lab work (more content not included)... Normal [facility] Basic metabolic 2000 panelon 03-07-2025 Anion gap [Moles/Vol] 13 mmol/L Normal 8-15 [facility] Comment on above: Order Comment: Speci [facility] Type: BLOOD SPECIMENOrdering Facility: [facility] Address: [address] [place] [address] Performed By: #### 1 9123-9, 91398-1, 2776-10 ####[facility] LABORATORYCLIA [id number] [place] [address] [place] Calcium [Mass/Vol] 8.4 mg/dL Low 8.5-10.2 [facility] Comment on above: Order Comment: Tiffanie [facility] Type: BLOOD SPECIMENOrdering Facility: [facility] Address: [address] [place] [address] Performed By: #### 1 9123-9, 55336-4, 2776-10 ####[facility]ATORYCLIA [id number] [place] [address] [place] Chloride [Moles/Vol] 100 mmol/L Normal 98-107 [facility] Comment on above: Order Comment: Speci men Type: BLOOD SPECIMENOrdering Facility: [facility] Address: [address] [place] [address] Performed By: #### 1 9123-9, 01978-2, 2776-10 ####[facility]ORATORYCLIA [id number] [address] OF [facility] CO2 [Moles/Vol] 27 mmol/L Normal 22-30 [facility] Comment on above: Order Comment: Speci men Type: BLOOD SPECIMENOrdering Facility: [facility] Address: [address] [place] [address] Performed By: #### 1 9123-9, , 2776-10 ####[facility]PITALSIA [id number] [address] OF [facility] Creatinine [Mass/Vol] 0.93 mg/dL Normal 0.58-0.96 [facility] Comment on above: Order Comment: Speci men Type: BLOOD SPECIMENOrdering Facility: [facility] Address: [address] [place] [address] Performed By: #### 1 9123-9, , 2776-10 ####[facility]OSPITALSIA [id number] [address] Creatinine and Glomerular filtration rate.predicted panel (S/P/Bld) 74 mL/min/1.73m??? Normal >=60 [facility] Comment on above: Order Comment: Speci men Type: BLOOD SPECIMENOrdering Facility: [facility] Address: [address] [place] [address] Result Comment: Eleanor mated Glomerular Filtration Rate [...] actual GFR. Performed By: #### 1 9123-9, 61506-6, 2776-10 ####[facility]ORATORYCLIA [id number] [place] [address] [place] Glucose [Mass/Vol] 152 mg/dL High 74-99 [facility] Comment on above: Order Comment: Speci men Type: BLOOD SPECIMENOrdering Facility: [facility] Address: [address] [place] [address] Result Comment: The [place] Diabetes Association (ADA) provides guidance for cutoff [...] Standards of Medical Care in Diabetes 2016, [place] [employer]. Diabetes Care. 2016.39(Suppl 1). Performed By: #### 1 9123-9, 69303-8, 2776- ####[facility]ATORYCLIA [id number] [place] [address] [place] Potassium [Moles/Vol] 3.6 mmol/L Low 3.7-5.1 [facility] Comment on above: Order Comment: Tiffanie osorio Type: BLOOD SPECIMENOrdering Facility: [facility] Address: [address] [place] [address] Performed By: #### 1 9123-9, 04595-4, 2776-10 ####[facility]ATORYCLIA [id number] [place] [address] [place] Sodium [Moles/Vol] 140 mmol/L Normal 136-144 [facility] Comment on above: Order Comment: Chavai men Type: BLOOD SPECIMENOrdering Facility: [facility] Address: [address] [place], [place] [address] Performed By: #### 1 9123-9, 62355-1, 2776- ####[facility]ATORYCLIA [id number] [address] OF [place] Urea nitrogen [Mass/Vol] 28 mg/dL High 7-21 [facility] Comment on above: Order Comment: Speci men Type: BLOOD SPECIMENOrdering Facility: [facility] Address: [address] [place] [address] Performed By: #### 1 9123-9, 93420-0, 2777-1 ####[facility]ORATORYCLIA [id number] [place] [address] [place] CBC W Auto Differential pane l (Bld)on 03-07-2025 Anisocytosis Ql (Bld) Present [facility] Comment on above: Order Comment: Speci men Type: BLOOD SPECIMENOrdering Facility: [facility] Address: [address] [place] [address] Performed By: #### 5 7021-8 ####[facility]ORATORYCLIA [id number] [address] OF [facility] Basophils (Bld) [#/Vol] 0.00 10*3/uL Normal <0.11 [facility] Comment on above: Order Comment: Speci men Type: BLOOD SPECIMENOrdering Facility: [facility] Address: [address] [place] [address] Performed By: #### 5 7021-8 ####[facility]ORATORYCLIA [id number] [address] Basophils/100 WBC (Bld) 0.0 % Normal A [facility] Comment on above: Order Comment: Speci men Type: BLOOD SPECIMENOrdering Facility: [facility] Address: [address] [place] [address] Performed By: #### 5 7021-8 ####[facility]ORATORYCLIA [id number] [address] OF [facility] Differential cell count method Nom (Bld) Manual Normal [facility] Comment on above: Order Comment: Speci men Type: BLOOD SPECIMENOrdering Facility: [facility] Address: [address] [place] [address] Performed By: #### 5 7021-8 ####[facility]ORATORYCLIA [id number] [address] [place] Eosinophils (Bld) [#/Vol] 0.00 10*3/uL Normal <0.46 [facility] Comment on above: Order Comment: Speci men Type: BLOOD SPECIMENOrdering Facility: [facility] Address: [address] [place] [address] Performed By: #### 5 7021-8 ####[facility]ATORYCLIA [id number] [address] Eosinophils/100 WBC (Bld) 0.0 % Normal [facility] Comment on above: Order Comment: Speci men Type: BLOOD SPECIMENOrdering Facility: [facility] Address: [address] [place] [address] Performed By: #### 5 7021-8 ####[facility]ORATORYCLIA [id number] [address] Erythrocyte distribution width (RBC) [Ratio] 15.3 % High 11.5-15.0 [facility] Comment on above: Order Comment: Speci men Type: BLOOD SPECIMENOrdering Facility: [facility] Address: [address] [place] [address] Performed By: #### 5 7021-8 ####[facility]ORATORYCLIA [id number] [address] [place] Hematocrit (Bld) [Volume fraction] 32.4 % Low 36.0-46.0 [facility] Comment on above: Order Comment: Speci men Type: BLOOD SPECIMENOrdering Facility: [facility] Address: [address] [place] [address] Performed By: #### 5 7021-8 ####[facility]ORATORYCLIA [id number] [address] Hemoglobin (Bld) [Mass/Vol] 10.6 g/dL Low 11.5-15.5 [facility] Comment on above: Order Comment: Speci men Type: BLOOD SPECIMENOrdering Facility: [facility] Address: [facility] [place] [address] Performed By: #### 5 7021-8 ####[facility]ATORYCLIA [id number] [address] Lymphocytes (Bld) [#/Vol] 0.00 10*3/uL Low 1.00-4.00 [facility] Comment on above: Order Comment: Speci men Type: BLOOD SPECIMENOrdering Facility: [facility] Address: [address] [place] [address] Performed By: #### 5 7021-8 ####[facility]ATORYCLIA [id number] [address] [address] Lymphocytes/100 WBC (Bld) 0.0 % Normal [facility] Comment on above: Order Comment: Speci men Type: BLOOD SPECIMENOrdering Facility: [facility] Address: [address] [place] [address] Performed By: #### 5 7021-8 ####[facility] LABORATORYCLIA [id number] [address] MCH (RBC) [Entitic mass] 28.1 pg Normal 26.0-34.0 [facility] Comment on above: Order Comment: Speci men Type: BLOOD SPECIMENOrdering Facility: [facility] Address: [address] [place] [address] Performed By: #### 5 7021-8 ####[facility] LABORATORYCLIA [id number] [address] MCHC (RBC) [Mass/Vol] 32.7 g/dL Normal 30.5-36.0 [facility] Comment on above: Order Comment: Speci men Type: BLOOD SPECIMENOrdering Facility: [facility] Address: [address] [place] [address] Performed By: #### 5 7021-8 ####[facility] LABORATORYCLIA [id number] [address] MCV (RBC) [Entitic vol] 85.9 fL Normal 80.0-100.0 A [facility] Comment on above: Order Comment: Speci men Type: BLOOD SPECIMENOrdering Facility: [facility] Address: [address] [place] [address] Performed By: #### 5 7021-8 ####[facility] LABORATORYCLIA [id number] [address] [place] Metamyelocytes/100 WBC (Bld) 2.0 % Normal [facility] Comment on above: Order Comment: Speci men Type: BLOOD SPECIMENOrdering Facility: [facility] Address: [address] [place] [address] Performed By: #### 5 7021-8 ####[facility] LABORATORYCLIA [id number] [address] [place] Monocytes (Bld) [#/Vol] 0.99 10*3/uL High <0.87 [facility] Comment on above: Order Comment: Speci men Type: BLOOD SPECIMENOrdering Facility: [facility] Address: [address] [place] [address] Performed By: #### 5 7021-8 ####[facility] LABORATORYCLIA [id number] [address] [place] Monocytes/100 WBC (Bld) 5.0 % Normal A [facility] Comment on above: Order Comment: Speci men Type: BLOOD SPECIMENOrdering Facility: [facility] Address: [address] [place] [address] Performed By: #### 5 7021-8 ####[facility] LABORATORYCLIA [id number] [address] [place] Neutrophils (Bld) [#/Vol] 18.42 10*3/uL High 1.45-7.50 [facility] Comment on above: Order Comment: Speci men Type: BLOOD SPECIMENOrdering Facility: [facility] Address: [address] [place] [address] Performed By: #### 5 7021-8 ####[facility] LABORATORYCLIA [id number] [address] Neutrophils/100 WBC (Bld) 93.0 % Normal [facility] Comment on above: Order Comment: Speci men Type: BLOOD SPECIMENOrdering Facility: [facility] Address: [address] [place] [address] Performed By: #### 5 7021-8 ####[facility] LABORATORYCLIA [id number] [address] Nucleated RBC (Bld) [#/Vol] 10*3/uL Normal <0.01 [facility] Comment on above: Order Comment: Speci men Type: BLOOD SPECIMENOrdering Facility: [facility] Address: [address] [place] [address] Performed By: #### 5 7021-8 ####[facility] LABORATORYCLIA [id number] [address] Nucleated RBC/100 WBC (Bld) [Ratio] 0.0 /100 WBC Normal [facility] Comment on above: Order Comment: Speci men Type: BLOOD SPECIMENOrdering Facility: [facility] Address: [address] [place] [address] Performed By: #### 5 7021-8 ####[facility] LABORATORYCLIA [id number] [address] Ovalocytes LM Ql (Bld) Few Normal [facility] Comment on above: Order Comment: Speci men Type: BLOOD SPECIMENOrdering Facility: [facility] Address: [address] [place] [address] Performed By: #### 5 7021-8 ####[facility] LABORATORYCLIA [id number] [address] STATES [facility] Platelet mean volume (Bld) [Entitic vol] 9.0 fL Normal 9.0-12.7 [facility] Comment on above: Order Comment: Speci men Type: BLOOD SPECIMENOrdering Facility: [facility] Address: [address] [place] [address] Performed By: #### 5 7021-8 ####[facility] LABORATORYCLIA [id number] [address] [place] Platelets (Bld) [#/Vol] 320 10*3/uL Normal 150-400 [facility] Comment on above: Order Comment: Speci men Type: BLOOD SPECIMENOrdering Facility: [facility] Address: [address] [place] [address] Performed By: #### 5 7021-8 ####[facility] LABORATORYCLIA [id number] [address] [place] Platelets Estimate (Bld) [#/Vol] Increased Normal [facility] Comment on above: Order Comment: Speci men Type: BLOOD SPECIMENOrdering Facility: [facility] Address: [address] [place] [address] Performed By: #### 5 7021-8 ####[facility] LABORATORYCLIA [id number] [address] Polychromasia LM Ql (Bld) Slight Normal [facility] Comment on above: Order Comment: Speci men Type: BLOOD SPECIMENOrdering Facility: [facility] Address: [address] [place] [address] Performed By: #### 5 7021-8 ####[facility] LABORATORYCLIA [id number] [address] [place] RBC (Bld) [#/Vol] 3.77 10*6/uL Low 3.90-5.20 [facility] Comment on above: Order Comment: Speci men Type: BLOOD SPECIMENOrdering Facility: [facility] Address: [address] [place] [address] Performed By: #### 5 7021-8 ####[facility] LABORATORYCLIA [id number] [address] RED CELL MORPH Reviewed: see result s of individual morphologies Normal [facility] Comment on above: Order Comment: Speci men Type: BLOOD SPECIMENOrdering Facility: [facility] Address: [address] [place] [address] Performed By: #### 5 7021-8 ####[facility] LABORATORYCLIA [id number] [address] [place] WBC (Bld) [#/Vol] 19.81 10*3/uL High 3.70-11.00 [facility] Comment on above: Order Comment: Speci men Type: BLOOD SPECIMENOrdering Facility: [facility] Address: [address] [place] [address] Performed By: #### 5 7021-8 ####[facility] LABORATORYCLIA [id number] [address] WBC Left Shift Ql (Bld) Present Normal A [facility] Comment on above: Order Comment: Speci men Type: BLOOD SPECIMENOrdering Facility: [facility] Address: [address] [place] [address] Performed By: #### 5 7021-8 ####[facility] LABORATORYCLIA [id number] [address] CONSULTon 03-07-2025 CONSULT HNO ID: [id number] Author: CHACORTA WOOD MD Service: Hospital Medicine Author Type: Physician Type: Consults Filed: 03/07/2025 18:02 Note Text: DEPARTMENT OF HOSPITAL MEDICINE INITIAL CONSULT SERVICE DATE: 03/07/2025 SERVICE TIME: 4:01 PM Primary Care Physician: Mati Augustine DO, DO NIGHT AND WEEKEND COVERAGE: [place] COVERAGE: From 7am - 7pm, please call team pager After 7pm, please call cross cover pager #[phone] REASON FOR CONSULT: Perioperative medical optimization. REQUESTING [...] daily., Disp: , Rfl: , 02/28/2025 Morning triamterene/hydrochlorot hiazid (DYAZIDE ORAL), Take 0.5 mg by mouth [...] mg ORAL (more content not included)... Normal [facility] Magnesium [facility] 03-07 Magnesium [Mass/Vol] 2.2 mg/dL Normal 1.7-2.3 [facility] Comment on above: Order Comment: Speci men Type: BLOOD SPECIMENOrdering Facility: [facility] Address: [address] [place] [address] Performed By: #### 1 9123-9, 07300-3, 2777-1 ####[facility] LABORATORYCLIA [id number] [address] NURSING PROGon 03-07-2025 NURSING PROG HNO ID: [id number] Author: FABIENNE URENA RN Service: Nursing Author Type: Registered Nurse Type: Nursing Progress Note Filed: 03/07/2025 09:59 Note Text: Transfer Note: PATIENT NAME: Sierra Patton Patient Location: [place] [address] [address] 10-03 Room: [place] [address] Patient transferred into room/unit [facility] in stable condition. Actions taken: Report given/called to Niharika SO Normal [facility] Phosphate [Mass/Vol] 4.5 mg/dL Normal 2.7-4.8 [facility] Comment on above: Order Comment: Speci devon Type: BLOOD SPECIMENOrdering Facility: [facility] Address: [address] [place] [address] Performed By: #### 1 9123-9, 17316-0, 2777-1 ####[facility] LABORATORYCLIA [id number] [address] THERAPY NTon 03-07-2025 THERAPY NT HNO ID: [id number] Author: MARLENY SUMMERS, OTR/L Service: Occupational Therapy Author Type: Occupational Therapist Type: Therapy (PT/OT/Speech/Resp) Filed: 03/07/2025 14:00 Note Text: Occupational Therapy Evaluation Summary SERVICE DATE: 03/07/2025 SERVICE TIME: 1325 to 1352 ROOM: [place] [address] OT 6 Clicks Score: 19 DISCHARGE RECOMMENDATIONS [...] Presented to outside hospital and transfered to [facility] for neurosurgery evaluation. s/p R frontal [...] living (ADL) TREATMENT INTERVENTIONS Evaluation, Cognitive Training (62541 and 92756) Timed Code Treatment (minutes): 10 Skilled Treatment Time (minutes): 27 $ Evaluation - Moderate (62449) Billed Units: 1 unit Cognitive Training First 15 Minutes (87723) : 10 $ Cognitive Training First 15 Minutes (74080) Billed Units: 1 unit TRAINING AND EDUCATION [...] Treatment In (more content not included)... Normal [facility] THERAPY NT HNO ID: [id number] Author: TONYA MARIE, PT Service: Physical Therapy Author Type: Physical Therapist Type: Therapy (PT/OT/Speech/Resp) Filed: 03/07/2025 12:08 Note Text: Physical Therapy Evaluation Summary SERVICE DATE: 03/07/2025 SERVICE TIME: 910 to 935 ROOM: [id number] PT 6 Clicks Score: 20 DISCHARGE RECOMMENDATIONS [...] Presented to outside hospital and transfered to [facility] for neurosurgery evaluation. s/p R frontal [...] Difficulty walking-musculoskeletal TREATMENT INTERVENTIONS Evaluation, Gait Training (88536) Timed Code Treatment (minutes): 8 Skilled Treatment Time (minutes): 25 $ Evaluation-Moderate (32172) Billed Units: 1 unit Gait Training (17621) Treatment Minutes: 8 $ Gait Training (19888) Billed Units: 1 unit See grid as [...] Flexed trunk posture Gait Distance (feet): 5ftx2, 931vvs0 Stairs RANGE OF MOTION Lower Extremity Comments Right Lower Extremity ROM Comments: WFL Left Lower Extremity ROM Comments: WFL STRENGTH Right Lower Extremity Strength Comments: /5 Left Lower Extremity Strength Comments: 5/5 BALANCE [...] DATE: March 07, 2025 TIME: 12:07 PM Normal [facility] ANES POSTPROC EVALon 025 ANES POSTPROC EVAL HNO ID: [id number] Author: PRINCESS BOONE MD Service: Anesthesiology Author Type: Physician Type: Anesthesia Postprocedure Evaluation Filed: 03/06/2025 16:11 Note Text: POST ANESTHESIA EVALUATION NOTE : 1970 Procedure Summary Date: 03/06/25 Room / Location: [place] Anesthesia Start: 924 Anesthesia Stop: 1601 [...] March 06, 2025 TIME: 4:11 PM CSN: [id number] Normal [facility] ANES PRE-OPon 03-06-2025 ANES PRE-OP HNO ID: [id number] Author: LYDIA PEARSON DO Service: Anesthesiology Author Type: Anesthesiologist Type: Anesthesia Preprocedure Evaluation Filed: 03/06/2025 08:54 Note Text: ANESTHESIOLOGY DAY OF SURGERY NOTE : 1970 Procedure Information Date/Time: 03/06/25929 Procedures: 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 Patient / Responsible Alliance Party agrees to proceed: yes Patient / Surrogate [...] Take 20 mg by mouth once daily. triamterene/hydrochlorot hiazid (DYAZIDE ORAL) Take 0.5 mg by mouth [...] tablet Take (more content not included)... Normal [facility] Basic metabolic 2000 panelon 03-06-2025 Anion gap [Moles/Vol] 12 mmol/L Normal 8-15 [facility] Comment on above: Order Comment: Speci men Type: BLOOD SPECIMENOrdering Facility: [facility] Address: [address] [place] [address] Performed By: #### 3 016-3, , 59075-3, 2776- ####[facility] LABORATORYCLIA [id number] [place] [address] [place] Calcium [Mass/Vol] 8.8 mg/dL Normal 8.5-10.2 [facility] Comment on above: Order Comment: Speci men Type: BLOOD SPECIMENOrdering Facility: [facility] Address: [address] [place] [address] Performed By: #### 3 016-3, , 15566-9, 2776- ####[facility] LABORATORYCLIA [id number] [place] [address] [place] Chloride [Moles/Vol] 98 mmol/L Normal 98-107 [facility] Comment on above: Order Comment: Speci men Type: BLOOD SPECIMENOrdering Facility: [facility] Address: [address] [place] [address] Performed By: #### 3 016-3, , 04511-2, 2776-10 ####[facility] LABORATORYCLIA [id number] [place] [address] [place] CO2 [Moles/Vol] 30 mmol/L Normal 22-30 [facility] Comment on above: Order Comment: Speci men Type: BLOOD SPECIMENOrdering Facility: [facility] Address: [address] [place] [address] Performed By: #### 3 016-3, , 91402-6, 2776- ####[facility] LABORATORYCLIA [id number] [place] [address] [place] Creatinine [Mass/Vol] 1.03 mg/dL High 0.58-0.96 [facility] Comment on above: Order Comment: Speci men Type: BLOOD SPECIMENOrdering Facility: [facility] Address: [address] [place] [address] Performed By: #### 3 016-3, , 49122-7, 2777-1 ####[facility] LABORATORYIA [id number] [address] OF [facility] Creatinine and Glomerular filtration rate.predicted panel (S/P/Bld) 65 mL/min/1.73m??? Normal >=60 [facility] Comment on above: Order Comment: Tiffanie devon Type: BLOOD SPECIMENOrdering Facility: [facility] Address: [address] [place] [address] Result Comment: Eleanor mated Glomerular Filtration Rate [...] actual GFR. Performed By: #### 3 016-3, 52846-1, 67494-9, 277- ####[facility]IST HOSPITALSIA [id number] [place] [address] [place] Glucose [Mass/Vol] 114 mg/dL High 74-99 [facility] Comment on above: Order Comment: Tiffanie osorio Type: BLOOD SPECIMENOrdering Facility: [facility] Address: [address] [place] [address] Result Comment: The [place] [employer] Association (ADA) provides guidance for cutoff [...] Standards of Medical Care in Diabetes 2016, [place] [employer]. Diabetes Care. 2016.39(Suppl 1). Performed By: #### 3 016-3, 26434-5, 47632-0, 2777-1 ####[facility] LABORATORYCLIA [id number] [place] [address] [place] Potassium [Moles/Vol] 3.7 mmol/L Normal 3.7-5.1 [facility] Comment on above: Order Comment: Speci men Type: BLOOD SPECIMENOrdering Facility: [facility] Address: [address] [place] [address] Performed By: #### 3 016-3, 74060-3, 14627-5, 2777-1 ####[facility] LABORATORYCLIA [id number] [address] STATES OF [facility] Sodium [Moles/Vol] 140 mmol/L Normal 136-144 [facility] Comment on above: Order Comment: Speci men Type: BLOOD SPECIMENOrdering Facility: [facility] Address: [address] [place] [address] Performed By: #### 3 016-3, 17478-2, 98384-9, 2777-1 ####[facility]OSPITALCLIA [id number] [address] STATES [facility] Urea nitrogen [Mass/Vol] 28 mg/dL High 7-21 [facility] Comment on above: Order Comment: Speci men Type: BLOOD SPECIMENOrdering Facility: [facility] Address: [address] [place] [address] Performed By: #### 3 016-3, 71052-5, 83227-3, 2777-1 ####[facility] LABORATORYCLIA [id number] [address] STATES OF [facility] CBC panel Auto (Bld)on 03-06 Erythrocyte distribution width (RBC) [Ratio] 14.9 % Normal 11.5-15.0 [facility] Comment on above: Order Comment: Speci men Type: BLOOD SPECIMENOrdering Facility: [facility] Address: [address] [place] [address] Performed By: #### 5 8410-2 ####[facility] LABORATORYCLIA [id number] [address] Hematocrit (Bld) [Volume fraction] 33.7 % Low 36.0-46.0 [facility] Comment on above: Order Comment: Speci men Type: BLOOD SPECIMENOrdering Facility: [facility] Address: [address] [place] [address] Performed By: #### 5 8410-2 ####[facility] LABORATORYCLIA [id number] [address] OF [facility] Hemoglobin (Bld) [Mass/Vol] 11.2 g/dL Low 11.5-15.5 [facility] Comment on above: Order Comment: Speci men Type: BLOOD SPECIMENOrdering Facility: [facility] Address: [address] [place] [address] Performed By: #### 5 8410-2 ####[facility] LABORATORYCLIA [id number] [address] [place] MCH (RBC) [Entitic mass] 28.6 pg Normal 26.0-34.0 [facility] Comment on above: Order Comment: Speci men Type: BLOOD SPECIMENOrdering Facility: [facility] Address: [address] [place] [address] Performed By: #### 5 8410-2 ####[facility] LABORATORYCLIA [id number] [address] [place] MCHC (RBC) [Mass/Vol] 33.2 g/dL Normal 30.5-36.0 [facility] Comment on above: Order Comment: Speci men Type: BLOOD SPECIMENOrdering Facility: [facility] Address: [address] [place] [address] Performed By: #### 5 8410-2 ####[facility] LABORATORYCLIA [id number] [address] [place] MCV (RBC) [Entitic vol] 86.0 fL Normal 80.0-100.0 [facility] Comment on above: Order Comment: Speci men Type: BLOOD SPECIMENOrdering Facility: [facility] Address: [address] [place] [address] Performed By: #### 5 8410-2 ####[facility] LABORATORYCLIA [id number] [place] [address] [place] Nucleated RBC (Bld) [#/Vol] 10*3/uL Normal <0.01 [facility] Comment on above: Order Comment: Speci men Type: BLOOD SPECIMENOrdering Facility: [facility] Address: [address] [place] [address] Performed By: #### 5 8410-2 ####[facility] LABORATORYCLIA [id number] [address] [place] Platelet mean volume (Bld) [Entitic vol] 9.1 fL Normal 9.0-12.7 [facility] Comment on above: Order Comment: Speci men Type: BLOOD SPECIMENOrdering Facility: [facility] Address: [address] [place] [address] Performed By: #### 5 8410-2 ####[facility] LABORATORYCLIA [id number] [address] [place] Platelets (Bld) [#/Vol] 353 10*3/uL Normal 150-400 [facility] Comment on above: Order Comment: Speci men Type: BLOOD SPECIMENOrdering Facility: [facility] Address: [address] [place] [address] Performed By: #### 5 8410-2 ####[facility] LABORATORYCLIA [id number] [address] [place] RBC (Bld) [#/Vol] 3.92 10*6/uL Normal 3.90-5.20 [facility] Comment on above: Order Comment: Speci men Type: BLOOD SPECIMENOrdering Facility: [facility] Address: [address] [place] [address] Performed By: #### 5 8410-2 ####[facility] LABORATORYCLIA [id number] [place] [address] [place] WBC (Bld) [#/Vol] 20.37 10*3/uL High 3.70-11.00 [facility] Comment on above: Order Comment: Speci men Type: BLOOD SPECIMENOrdering Facility: [facility] Address: [address] [place] [address] Performed By: #### 5 8410-2 ####[facility] LABORATORYCLIA [id number] [address] [place] BLOOD TYPEon 025 ABO O Normal [facility] Comment on above: Order Comment: Speci men Type: BLOOD SPECIMENOrdering Facility: [facility] Address: [address] [place] [address] Performed By: #### C ONABO ####[facility] BLOOD BANKCLIA [id number] [place] [id number] [facility] Rh Nom (Bld) Negative Normal [facility] Comment on above: Order Comment: Speci men Type: BLOOD SPECIMENOrdering Facility: [facility] Address: [address] [place] [address] Performed By: #### C ONABO ####[facility] BLOOD BANKCLIA [id number] [address] OF [place] BRAIN WO IVCONon 03-06-[address] BRAIN WO IVCON * * *Final Report* * * DATE OF EXAM: Mar 06 2025 5:48PM [facility] 0504 - CT BRAIN WO IVCON [...] at site of prior mass, with adjacent vztjy-zymcqqse-thrzw left-sided and small right-sided parenchymal defects/parenchymal hypodensities [...] arthritic changes and likely related condylar sclerosis. Systems Integration Engineer (topogram) images: Non-diagnostic. 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 Some tanya-resectional/prior perilesional frontal parenchymal changes as above. Other details above. Wood Caulker: PSCB Transcribe Date/Time: Mar 06 2025 5:53P Dictated by : LUIS RINCON MD This examination was interpreted and the report reviewed and electronically signed by: LUIS RINCON MD on Mar 06 2025 6:02PM EST [id number] Normal [facility] HISTORY PHYSICALon HISTORY PHYSICAL HNO ID: [id number] Author: MARI FRANCISCO APRN.ACID ETCH OPERATOR Service: Neurology ICU Author Type: Nurse Practitioner [...] daily., Disp: , Rfl: , 02/28/2025 Morning triamterene/hydrochlorot hiazid (DYAZIDE ORAL), Take 0.5 mg by mouth [...] 03/06/25 0545 [facility] Short Left Antecubital 22 Gauge <1 day Peripheral 03/06/25 1009 Left Hand 18 Gauge <1 day Drain Duration Indwelling Urinary Catheter 03/06/25 1000 [place] 16 Fr <1 day PERSONAL INVOLVEMENT IN CARE: Reviewing initi (more content not included)... Normal [facility] Magnesium SerPl-mCncon 03-06 Magnesium [Mass/Vol] 2.0 mg/dL Normal 1.7-2.3 [facility] Comment on above: Order Comment: Speci men Type: BLOOD SPECIMENOrdering Facility: [facility] Address: [address] [place] [address] Performed By: #### 3 016-3, 13428-9, 89539-7, 2777-1 ####[facility] LABORATORYCLIA [id number] [address] OF [facility] OPERATIVE NOon 03-06-2025 OPERATIVE NO HNO ID: [id number] Author: FABRIZIO AMBROCIO MD Service: Neurosurgery Author Type: Physician Type: Operative Report Filed: 03/22/2025 08:37 Note Text: OPERATIVE/PROCEDURE REPORT LOG ID: [id number] SURGERY/PROCEDURE DATE: 03/06/2025 INCISION/PROCEDURE START TIME: 10:16 AM INCISION CLOSE/PROCEDURE END TIME: 3:32 PM SURGEON(S)/PROCEDURALIST (S) AND AIR/OCEAN EXPORT CLERK(S): Surgeons and Role: * Fabrizio Ambrocio MD - Primary * Mavis Cobos MD Rn Staff Physician Rn Staff: Rahul Whitfield PA-C Packing Room Supervisor: Mk Arndt APRN.CNP SURGERY/PROCEDURE(S): Right frontal pterional [...] supine position the head wassecured in the Castaner 3 pin head clamp and patient was [...] attachment t (more content not included)... Normal [facility] Pathology biopsy report Mike (Tiss)on 03-06-2025 AMENDED REPORT DETAIL Normal [facility] Comment on above: Order Comment: Speci men Type: TISSUE SPECIMENOrdering Facility: [facility] Address: [address] [place] [address] Result Comment: Amen ded: 03/14/2025 8:13 AM This report is being amended to reflect a change in the diagnostic field. The original report did not include both parts A and B, which has been corrected. There is no change to the actual diagnosis. Dr. Ambrocio was notified of this change by adFreeq message on 03/14/2025. Edited results: Previously reported on 03/11/2025 at 3:13 PM EDT. Performed By: #### 6 6121-5 ####[facility] LABORATORYCLIA [id number] [address] OF [facility] AP DISCLAIMER Normal [facility] Comment on above: Order Comment: Speci men Type: TISSUE SPECIMENOrdering Facility: [facility] Address: [address] [place] [address] Result Comment: Naheed donahue Developed Test (LDT) Disclaimer: Performance characteristics of immunohistochemical, immunofluorescent, and chromogenic in-situ hybridization tests have been determined by the performing laboratory within [facility] Pathology and Laboratory Medicine Department ([facility], [facility], [facility], [facility], [facility], [facility], or [facility]) in a manner consistent with CLIA requirements. One or more of these tests may not have been cleared or approved by the FDA. [facility] is regulated under CLIA as qualified to perform high-complexity testing. These tests are used for clinical purposes. These should not be regarded as investigational or for research. Positive and negative controls stain appropriately. Performed By: #### 6 6121-5 ####[facility] HOSPITALSIA [id number] [address] [place] CASE REPORT Normal [facility] Comment on above: Order Comment: Speci men Type: TISSUE SPECIMENOrdering Facility: [facility] Address: [address] [place] [address] Result Comment: Surg [facility] Pathology Report Case: [id number] Authorizing Provider: Fabrizio Ambrocio MD Collected: 03/06/2025 11:41 AM [facility] Received: 03/06/2025 11:48 AM Pathologist: Godwin Em MD Intraop: Mike Puckett MD Specimens: A) - Brain, Resection, Brain tumor B) - Brain, Resection, tumor Performed By: #### 6 6121-5 ####[facility] LABORATORYCLIA [id number] [address] [place] CLINICAL HISTORY Normal [facility] Comment on above: Order Comment: Speci men Type: TISSUE SPECIMENOrdering Facility: [facility] Address: [address] [place], [place] [address] Result Comment: Pre- op diagnosis: Brain mass [G93.89] Performed By: #### 6 6121-5 ####[facility] LABORATORYCLIA [id number] [address] DIAGNOSIS COMMENT Normal [facility] Comment on above: Order Comment: Speci men Type: TISSUE SPECIMENOrdering Facility: [facility] Address: [address] [place] [address] Result Comment: Immu nohistochemical stains performed on Part B reveal the tumor to be positive for ANDIA and show a Ki-67 labeling index of <4%. This case was reviewed by Dr. Mike Puckett who agrees with this assessment. Corrected results: Previously reported on 03/11/2025 at 3:13 PM EDT. Performed By: #### 6 6121-5 ####[facility] LABORATORYCLIA [id number] [address] FINAL DIAGNOSIS Normal [facility] Comment on above: Order Comment: Speci men Type: TISSUE SPECIMENOrdering Facility: [facility] Address: [address] [place] [address] Result Comment: Sis Alvarez. Brain tumor, resection: - Meningioma, transitional type, WHO Grade 1. See comment. Amendment electronically signed by Godwin Em MD on 03/14/2025 at 0815 EDT at 1513 EDT Corrected results: Previously reported on 03/11/2025 at 3:13 PM EDT. Performed By: #### 6 6121-5 ####[facility] LABORATORYCLIA [id number] [address] FINAL PERFORMING LAB Normal [facility] Comment on above: Order Comment: Speci men Type: TISSUE SPECIMENOrdering Facility: [facility] Address: [address] [place] [address] Result Comment: Diag nostic interpretation performed at: [facility], [address] [address] CLIA# [id number] Dye Beck Reel Operator: Godwin Em MD Performed By: #### 6 6121-5 ####[facility] LABORATORYCLIA [id number] [address] [place] GROSS DESCRIPTION Normal [facility] Comment on above: Order Comment: Speci men Type: TISSUE SPECIMENOrdering Facility: [facility] Address: [address] [place] [address] Result Comment: Marium sykes, Resection Received fresh for intraoperative consultation labeled brain tumor are multiple pink-gibson soft tissue fragments aggregating to 0.9 x 0.4 x 0.2 cm. A touch prep is performed. Half of the tissue is submitted in FS A1 and the remaining Is submitted in A2. Gross examination performed at [facility], [address] [place] [address] CLIA#[id number] OLS March 06, 2025 12:32 PM B. Brain, Resection Received in formalin labeled brain tumor is a irregular quezada-pink, friable, soft tissue fragment measuring 2.8 x 2.5 x 1.7 cm and weighing 3.8 g. The specimen is submitted entirely in B1-B3. Gross examination performed at [facility], [address] [place] [address] CLIA#[id number] [facility] March 07, 2025 8:06 AM Performed By: #### 6 6121-5 ####[facility] LABORATORYCLIA [id number] [address] STATES OF [facility] INTRAOPERATIVE DIAGNOSIS Normal [facility] Comment on above: Order Comment: Speci men Type: TISSUE SPECIMENOrdering Facility: [facility] Address: [address] [place] [address] Result Comment: Marium sykes, Resection FS A 1+ touch prep: Brain tumor: Meningioma (Dr. Parekh/Dr. Puckett) Intraoperative examination performed at [facility], [address] [place] [address] CLIA# [id number] Performed By: #### 6 6121-5 ####[facility] LABORATORYCLIA [id number] [place] [address] [place] Phosphate SerPl-mCncon 03-06 Phosphate [Mass/Vol] 6.8 mg/dL High 2.7-4.8 [facility] Comment on above: Order Comment: Speci men Type: BLOOD SPECIMENOrdering Facility: [facility] Address: [address] [place] [address] Performed By: #### 3 016-3, 48527-6, 05830-0, 2777-1 ####[facility] LABORATORYCLIA [id number] [address] STATES OF [facility] STAPHYLOCOCCUS AUREUS AND MR SA SCREEN, PCR, NASALon 03-06-2025 S. aureus and MRSA panel GIANCARLO+probe (Nose) Methicillin-SUSCEPTIBLE Staphylococcus aureus Detected Abnormal Not Detected [facility] Comment on above: Order Comment: Speci men Type: SWABOrdering Facility: [facility] Address: [address] [place] [address] Performed By: #### S APCR ####[facility] LABORATORYCLIA [id number] [address] [place] TSH SerPl-aCncon 03-06-2025 TSH Qn 0.485 m[IU]/L Normal 0.270-4.200 [facility] Comment on above: Order Comment: Speci men Type: BLOOD SPECIMENOrdering Facility: [facility] Address: [address] [place] [address] Performed By: #### 3 016-3, 98644-9, 94520-4, 2777-1 ####[facility] LABORATORYCLIA [id number] [address] [place] ALLIED HEALTHon 03-05-2025 ALLIED HEALTH HNO ID: [id number] Author: MARIE DIAZ Chaplain Service: Spiritual Care Author Type: Type: Allied Health Filed: 03/05/2025 21:29 Note Text: SPIRITUAL CARE PROGRESS NOTE SERVICE DATE: 03/05/2025 SERVICE TIME: 8:15pm Pre Surgery visit To contact the Spiritual Care Department: Please call [phone]. SIGNATURE: Chaplain Alfredito PATIENT NAME: Sierra Patton DATE: March 05, 2025 TIME: 9:27 PM PAGER/CONTACT #: [phone] Normal [facility] CONSULT PROGon 03-05-2025 CONSULT PROG HNO ID: [id number] Author: TORSTEN HALEY APRN.ACID ETCH OPERATOR Service: Neurosurgery Author Type: Nurse Practitioner Type: [...] tomorrow with Dr. Ambrocio -regular diet -Dex 4mkB7gl -Keppra 500mg bid for seizure ppx Parts of this note may have been copied from one of my previous notes and remain pertinent. The documentation has been reviewed and edited as necessary to support the clinical decision making for today's visit. SIGNATURE: Torsten Haley APRN.CNP PATIENT NAME: Sierra Patton DATE: March 05, 2025 TIME: 11:37 AM Pager: [phone] Normal [facility] PT panel Coag (PPP)on 2024 INR Coag (PPP) [Relative time] 1.0 {INR} Normal 0.9-1.3 [facility] Comment on above: Order Comment: Speci men Type: BLOOD SPECIMENOrdering Facility: [facility] Address: [address] [place] [address] Result Comment: Kristin min K Antagonist (VKA) Therapeutic Range: INR 2 to 3 (Target INR of 2.5) Note: For patients treated with VKA drugs, such as warfarin, the [place] [employer] 2012 Guideline recommends [...] Chest 2012, 141:7S-47S Kin RA, et al. [facility] 2017, 70: 252-289 Performed By: #### 3 4528-0, 04223-4 ####[facility] LABORATORYCLIA [id number] [place] [address] [place] PT Coag (PPP) [Time] 11.2 s Normal 9.7-13.0 [facility] Comment on above: Order Comment: Speci men Type: BLOOD SPECIMENOrdering Facility: [facility] Address: [address] [place] [address] Performed By: #### 3 4528-0, 56526-5 ####[facility] LABORATORYCLIA [id number] [address] [place] TYPE + SCREENon 03-05-2025 ABO O Normal [facility] Comment on above: Order Comment: Speci men Type: BLOOD SPECIMENOrdering Facility: [facility] Address: [address] [place] [address] Performed By: #### T SCR ####[facility] BLOOD BANKCLIA [id number] [address] [place] Rh Nom (Bld) Negative Normal [facility] Comment on above: Order Comment: Speci men Type: BLOOD SPECIMENOrdering Facility: [facility] Address: [address] [place] [address] Performed By: #### T SCR ####[facility] BLOOD BANKCLIA [id number] [address] TYPE AND SCREEN EXPIRATION 03/08/2025 23:59 Normal [facility] Comment on above: Order Comment: Speci men Type: BLOOD SPECIMENOrdering Facility: [facility] Address: [address] [place] [address] Performed By: #### T SCR ####[facility] BLOOD BANKCLIA [id number] [address] aPTT PPPon 03-05-2025 aPTT Coag (PPP) [Time] 27.2 s Normal 23.0-32.4 [facility] Comment on above: Order Comment: Speci men Type: BLOOD SPECIMENOrdering Facility: [facility] Address: [address] [place] [address] Performed By: #### 3 4528-0, 32487-9 ####[facility] LABORATORYCLIA [id number] [address] CONSULT PROGon 03-04-2025 CONSULT PROG HNO ID: [id number] Author: TORSTEN HALEY APRN.ACID ETCH OPERATOR Service: Neurosurgery Author Type: Nurse Practitioner Type: [...] tab(s) (CRESTOR) 10 mg ORAL AT BEDTIME triamterene-hydroCHLOROt hiazide 37.5-25 mg 1 tablet (MAXZIDE-25) 1 tablet [...] making for today's visit. SIGNATURE: Torsten Haley APRN.ACID ETCH OPERATOR PATIENT NAME: Sierra Patton DATE: March 04, 2025 TIME: 9:52 AM Pager: [phone] Normal [facility] Basic metabolic 2000 panelon 03-03-2025 Anion gap [Moles/Vol] 11 mmol/L Normal 8-15 [facility] Comment on above: Order Comment: Speci men Type: BLOOD SPECIMENOrdering Facility: [facility] Address: [address] [place] [address] Performed By: #### 1 9123-9, 43442-3 ####[facility] LABORATORYCLIA [id number] [place] [address] [place] Calcium [Mass/Vol] 8.8 mg/dL Normal 8.5-10.2 [facility] Comment on above: Order Comment: Speci men Type: BLOOD SPECIMENOrdering Facility: [facility] Address: [address] [place] [address] Performed By: #### 1 9123-9, 87839-0 ####[facility] LABORATORYCLIA [id number] [place] [address] [place] Chloride [Moles/Vol] 102 mmol/L Normal 98-107 [facility] Comment on above: Order Comment: Speci men Type: BLOOD SPECIMENOrdering Facility: [facility] Address: [address] [place] [address] Performed By: #### 1 9123-9, 99096-9 ####[facility] LABORATORYCLIA [id number] [place] [address] [place] CO2 [Moles/Vol] 27 mmol/L Normal 22-30 [facility] Comment on above: Order Comment: Tiffanie devon Type: BLOOD SPECIMENOrdering Facility: [facility] Address: [address] [place] [address] Performed By: #### 1 9123-9, 91865-4 ####[facility] HOSPITALCLIA [id number] [place] [address] [place] Creatinine [Mass/Vol] 1.15 mg/dL High 0.58-0.96 [facility] Comment on above: Order Comment: Speci men Type: BLOOD SPECIMENOrdering Facility: [facility] Address: [address] [place] [address] Performed By: #### 1 9123-9, 48986-4 ####[facility] HOSPITALSIA [id number] [address] Creatinine and Glomerular filtration rate.predicted panel (S/P/Bld) 57 mL/min/1.73m??? Low >=60 [facility] Comment on above: Order Comment: Tiffanie osorio Type: BLOOD SPECIMENOrdering Facility: [facility] Address: [address] [place] [address] Result Comment: Eleanor mated Glomerular Filtration Rate [...] actual GFR. Performed By: #### 1 9123-9, 62202-6 ####[facility] LABORATORYCLIA [id number] [place] [address] [place] Glucose [Mass/Vol] 101 mg/dL High 74-99 [facility] Comment on above: Order Comment: Chavamaddi osorio Type: BLOOD SPECIMENOrdering Facility: [facility] Address: [address] [place] [address] Result Comment: The [place] [employer] (ADA) provides guidance for cutoff [...] Standards of Medical Care in Diabetes 2016, [place] [employer]. Diabetes Care. 2016.39(Suppl 1). Performed By: #### 1 9123-9, 70979-7 ####[facility] LABORATORYCLIA [id number] [place] [address] [place] Potassium [Moles/Vol] 3.9 mmol/L Normal 3.7-5.1 [facility] Comment on above: Order Comment: Tiffanie osorio Type: BLOOD SPECIMENOrdering Facility: [facility] Address: [address] [place] [address] Performed By: #### 1 91239, 10476-6 ####[facility] HOSPITALCLIA [id number] [address] STATES OF [facility] Sodium [Moles/Vol] 140 mmol/L Normal 136-144 [facility] Comment on above: Order Comment: Tiffanie osorio Type: BLOOD SPECIMENOrdering Facility: [facility] Address: [address] [place] [address] Performed By: #### 1 91239, 95972-8 ####[facility] LABORATORYCLIA [id number] [address] STATES OF [facility] Urea nitrogen [Mass/Vol] 29 mg/dL High 7-21 [facility] Comment on above: Order Comment: Tiffanie osorio Type: BLOOD SPECIMENOrdering Facility: [facility] Address: [address] [place] [address] Performed By: #### 1 91239, 58766-7 ####[facility] LABORATORYCLIA [id number] [place] [address] [place] CBC W Auto Differential pane l (Bld)on 03-03-2025 Basophils (Bld) [#/Vol] 0.05 10*3/uL Normal <0.11 [facility] Comment on above: Order Comment: Speci men Type: BLOOD SPECIMENOrdering Facility: [facility] Address: [address] [place] [address] Performed By: #### 5 7021-8 ####[facility]ORATORYCLIA [id number] [address] [place] Basophils/100 WBC (Bld) 0.5 % Normal [facility] Comment on above: Order Comment: Speci men Type: BLOOD SPECIMENOrdering Facility: [facility] Address: [address] [place] [address] Performed By: #### 5 7021-8 ####[facility]ORATORYCLIA [id number] [address] [place] Differential cell count method Nom (Bld) Auto Normal [facility] Comment on above: Order Comment: Speci men Type: BLOOD SPECIMENOrdering Facility: [facility] Address: [address] [place] [address] Performed By: #### 5 7021-8 ####[facility]ORATORYCLIA [id number] [place] [address] [place] Eosinophils (Bld) [#/Vol] 0.13 10*3/uL Normal <0.46 [facility] Comment on above: Order Comment: Speci men Type: BLOOD SPECIMENOrdering Facility: [facility] Address: [address] [place] [address] Performed By: #### 5 7021-8 ####[facility]ORATORYCLIA [id number] [address] [place] Eosinophils/100 WBC (Bld) 1.4 % Normal [facility] Comment on above: Order Comment: Speci men Type: BLOOD SPECIMENOrdering Facility: [facility] Address: [address] [place] [address] Performed By: #### 5 7021-8 ####[facility]ORATORYCLIA [id number] [address] Erythrocyte distribution width (RBC) [Ratio] 14.9 % Normal 11.5-15.0 [facility] Comment on above: Order Comment: Speci men Type: BLOOD SPECIMENOrdering Facility: [facility] Address: [address] [place] [address] Performed By: #### 5 7021-8 ####[facility] LABORATORYCLIA [id number] [address] [place] Hematocrit (Bld) [Volume fraction] 35.6 % Low 36.0-46.0 [facility] Comment on above: Order Comment: Speci men Type: BLOOD SPECIMENOrdering Facility: [facility] Address: [address] [place] [address] Performed By: #### 5 7021-8 ####[facility] LABORATORYCLIA [id number] [address] [place] Hemoglobin (Bld) [Mass/Vol] 11.6 g/dL Normal 11.5-15.5 [facility] Comment on above: Order Comment: Speci men Type: BLOOD SPECIMENOrdering Facility: [facility] Address: [address] [place] [address] Performed By: #### 5 7021-8 ####[facility] LABORATORYCLIA [id number] [address] [place] Immature granulocytes (Bld) [#/Vol] 0.21 10*3/uL High <0.10 [facility] Comment on above: Order Comment: Speci men Type: BLOOD SPECIMENOrdering Facility: [facility] Address: [address] [place] [address] Performed By: #### 5 7021-8 ####[facility] LABORATORYCLIA [id number] [address] [place] Immature granulocytes/100 WBC (Bld) 2.3 % Normal [facility] Comment on above: Order Comment: Speci men Type: BLOOD SPECIMENOrdering Facility: [facility] Address: [address] [place] [address] Performed By: #### 5 7021-8 ####[facility] LABORATORYCLIA [id number] [address] OF [facility] Lymphocytes (Bld) [#/Vol] 2.99 10*3/uL Normal 1.00-4.00 [facility] Comment on above: Order Comment: Speci men Type: BLOOD SPECIMENOrdering Facility: [facility] Address: [address] [place] [address] Performed By: #### 5 7021-8 ####[facility] LABORATORYCLIA [id number] [address] Lymphocytes/100 WBC (Bld) 32.3 % Normal [facility] Comment on above: Order Comment: Speci men Type: BLOOD SPECIMENOrdering Facility: [facility] Address: [address] [place] [address] Performed By: #### 5 7021-8 ####[facility] LABORATORYCLIA [id number] [address] STATES [facility] MCH (RBC) [Entitic mass] 28.1 pg Normal 26.0-34.0 [facility] Comment on above: Order Comment: Speci men Type: BLOOD SPECIMENOrdering Facility: [facility] Address: [address] [place] [address] Performed By: #### 5 7021-8 ####[facility] LABORATORYCLIA [id number] [address] OF [facility] MCHC (RBC) [Mass/Vol] 32.6 g/dL Normal 30.5-36.0 [facility] Comment on above: Order Comment: Speci men Type: BLOOD SPECIMENOrdering Facility: [facility] Address: [address] [place] [address] Performed By: #### 5 7021-8 ####[facility] LABORATORYCLIA [id number] [address] MCV (RBC) [Entitic vol] 86.2 fL Normal 80.0-100.0 [facility] Comment on above: Order Comment: Speci men Type: BLOOD SPECIMENOrdering Facility: [facility] Address: [address] [place] [address] Performed By: #### 5 7021-8 ####[facility]ORATORYCLIA [id number] [address] [place] Monocytes (Bld) [#/Vol] 0.56 10*3/uL Normal <0.87 [facility] Comment on above: Order Comment: Speci men Type: BLOOD SPECIMENOrdering Facility: [facility] Address: [address] [place] [address] Performed By: #### 5 7021-8 ####[facility]ORATORYCLIA [id number] [address] [place] Monocytes/100 WBC (Bld) 6.0 % Normal [facility] [facility] Comment on above: Order Comment: Speci men Type: BLOOD SPECIMENOrdering Facility: [facility] Address: [address] [place] [address] Performed By: #### 5 7021-8 ####[facility] LABORATORYCLIA [id number] [address] [place] Neutrophils (Bld) [#/Vol] 5.33 10*3/uL Normal 1.45-7.50 [facility] Comment on above: Order Comment: Speci men Type: BLOOD SPECIMENOrdering Facility: [facility] Address: [address] [place] [address] Performed By: #### 5 7021-8 ####[facility]ORATORYCLIA [id number] [address] [place] Neutrophils/100 WBC (Bld) 57.5 % Normal [facility] Comment on above: Order Comment: Speci men Type: BLOOD SPECIMENOrdering Facility: [facility] Address: [address] [place] [address] Performed By: #### 5 7021-8 ####[facility]ORATORYCLIA [id number] [place] [address] [place] Nucleated RBC (Bld) [#/Vol] 10*3/uL Normal <0.01 [facility] Comment on above: Order Comment: Speci men Type: BLOOD SPECIMENOrdering Facility: [facility] Address: [address] [place] [address] Performed By: #### 5 7021-8 ####[facility] LABORATORYCLIA [id number] [address] [place] Nucleated RBC/100 WBC (Bld) [Ratio] 0.0 /100 WBC Normal [facility] Comment on above: Order Comment: Speci men Type: BLOOD SPECIMENOrdering Facility: [facility] Address: [address] [place] [address] Performed By: #### 5 7021-8 ####[facility] LABORATORYCLIA [id number] [address] [place] Platelet mean volume (Bld) [Entitic vol] 9.4 fL Normal 9.0-12.7 [facility] Comment on above: Order Comment: Speci men Type: BLOOD SPECIMENOrdering Facility: [facility] Address: [address] [place] [address] Performed By: #### 5 7021-8 ####[facility] LABORATORYCLIA [id number] [place] [address] [place] Platelets (Bld) [#/Vol] 309 10*3/uL Normal 150-400 [facility] Comment on above: Order Comment: Speci men Type: BLOOD SPECIMENOrdering Facility: [facility] Address: [address] [place] [address] Performed By: #### 5 7021-8 ####[facility] LABORATORYCLIA [id number] [place] [address] [place] RBC (Bld) [#/Vol] 4.13 10*6/uL Normal 3.90-5.20 [facility] Comment on above: Order Comment: Speci men Type: BLOOD SPECIMENOrdering Facility: [facility] Address: [address] [place] [address] Performed By: #### 5 7021-8 ####[facility] LABORATORYCLIA [id number] [place] [address] [place] WBC (Bld) [#/Vol] 9.27 10*3/uL Normal 3.70-11.00 [facility] Comment on above: Order Comment: Speci men Type: BLOOD SPECIMENOrdering Facility: [facility] Address: [address] [place] [address] Performed By: #### 5 7021-8 ####[facility] LABORATORYCLIA [id number] [address] [place] Magnesium SerPl-mCncon 03-03 Magnesium [Mass/Vol] 2.3 mg/dL Normal 1.7-2.3 [facility] Comment on above: Order Comment: Speci men Type: BLOOD SPECIMENOrdering Facility: [facility] Address: [address] [place] [address] Performed By: #### 1 9123-9, 80894-8 ####[facility] LABORATORYCLIA [id number] [address] [place] ALLIED HEALTHon 03-02-2025 ALLIED HEALTH HNO ID: [id number] Author: LEIDA BANUELOS RT(R) Service: Radiology Author [...] PATIENT PRESENTS WITH AN IMPLANTABLE OR ATTACHED UX LEAD: No RADIOLOGY DEPARTMENT: CT; Exam(s) Completed: Brain PERIPHERAL IV DATA: Not applicable SIGNED BY: RT Mariola(R) March 02, 2025 4:08 PM Normal [facility] ALLIED HEALTH HNO ID: [id number] Author: JABIER MARTINEZ ? Service: Radiology Author Type: Radiologist Rn Staff Type: Allied Health Filed: 03/02/2025 10:02 Note [...] PATIENT PRESENTS WITH AN IMPLANTABLE OR ATTACHED UX LEAD: No ALLERGIES: Reviewed and unchanged CONTRAST ALLERGY: NO. EXAM: MRI - CONTRAST TYPE: GROUP II PERIPHERAL IV DATA: Inpatient - refer to [facility] documentation RADIOLOGY DEPARTMENT: MR; Exam(s) Completed: Head: Routine Brain [place] of [place] MRA Brain Lab protocol. Loraine Administered: No SIGNATURE: Jabier Martinez PATIENT NAME: Sierra Patton DATE: March 02, 2025 TIME: 10:01 AM Normal [facility] CT BRAIN WO IVCONon 03-02-[address] BRAIN WO IVCON * * *Final Report* * * DATE OF EXAM: Mar 02 2025 4:10PM [facility] 0504 - CT BRAIN WO IVCON / PROCEDURE REASON: Brain/VINYL DIPPER neoplasm, monitor * * * * Physician [...] cribriform plate tumor and adjacent parenchymal edema. Wood Caulker: PSCB Transcribe Date/Time: Mar 02 2025 4:13P Dictated by : VENKATESH WATKINS MD This examination was interpreted and the report reviewed and electronically signed by: VENKATESH WATKINS MD on Mar 02 2025 4:16PM EST [id number] Normal [facility] MRA BRAIN WO IVCONon 025 MRA BRAIN WO IVCON * * *Final Report* * * DATE OF EXAM: Mar 02 2025 10:33AM [facility] 0272 - MRA BRAIN WO IVCON / PROCEDURE REASON: Brain/VINYL DIPPER neoplasm, staging * * * * Physician Interpretation * * * * EXAMINATION: MRI BRAIN WO/W IVCON, MRA BRAIN WO IVCON CLINICAL HISTORY: Intracranial mass. TECHNIQUE: Sagittal high-resolution T2 and FLAIR as well as axial pre and postcontrast high-resolution T1 sequences through the brain. Intracranial MRA tybr-le-[id number] with multiplanar reconstructions. MQ: MRBWOW_2 Contrast: 9 [...] Intracranial vertebral arteries, basilar artery, and proximal [employer] segments bilaterally are patent and without significant focal narrowing or aneurysm. IMPRESSION: 1. 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 No other mass or pathologic intracranial enhancement. 2. No large arterial vessel occlusion, significant focal narrowing, or aneurysm on intracranial MRA. Wood Caulker: PSCB Transcribe Date/Time: Mar 02 2025 11:01A Dictated by : HORTENSIA GRAY MD This examination was interpreted and the report reviewed and electronically signed by: HORTENSIA GRAY MD on Mar 02 2025 11:10AM EST [id number] Normal [facility] MRI BRAIN WO/W IVCONon 03-02 MRI BRAIN WO/W IVCON * * *Final Report* * * DATE OF EXAM: Mar 02 2025 10:33AM [facility] 0295 - MRI BRAIN WO/W IVCON / PROCEDURE REASON: Brain/VINYL DIPPER neoplasm, monitor * * * * Physician Interpretation * * * * EXAMINATION: MRI BRAIN WO/W IVCON, MRA BRAIN WO IVCON CLINICAL HISTORY: Intracranial mass. TECHNIQUE: Sagittal high-resolution T2 and FLAIR as well as axial pre and postcontrast high-resolution T1 sequences through the brain. Intracranial MRA [id number] with multiplanar reconstructions. MQ: MRBWOW_2 Contrast: 9 [...] Intracranial vertebral arteries, basilar artery, and proximal [employer] segments bilaterally are patent and without significant focal narrowing or aneurysm. IMPRESSION: 1. 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 No other mass or pathologic intracranial enhancement. 2. No large arterial vessel occlusion, significant focal narrowing, or aneurysm on intracranial MRA. Wood Caulker: LG Transcribe Date/Time: Mar 02 2025 11:01A Dictated by : HORTENSIA GRAY MD This examination was interpreted and the report reviewed and electronically signed by: HORTENSIA GRAY MD on Mar 02 2025 11:10AM EST [id number] Normal [facility] NURSING PROGon 03-02-2025 NURSING PROG HNO ID: [id number] Author: RENETTA AQUINO RN Service: ? Author [...] about 30 minutes of being reported. Normal [facility] CONSULTon 03-01-2025 CONSULT HNO ID: [id number] Author: FABRIZIO AMBROCIO MD Service: Neurosurgery Author Type: Nurse Practitioner Type: Consults Filed: 03/02/2025 09:36 Note Text: -------- Attestation signed by Fabrizio Ambrocio MD at [...] with the patient the craniotomy for excision. -------- CONSULT: NEUROSURGERY SERVICE Patient Name: Sierra Patton Date of : 1970 SERVICE DATE: 03/01/2025 REASON FOR CONSULT: brain mass REQUESTING PHYSICIAN: Ron Bruno MD PRIMARY CARE PHYSICIAN: Mati Augustine, DO, DO Consultation requested by Dr. Bruno [...] also endorses frontal headache which started at [place]. H/o Hodgkin lymphoma grandparents No past medical [...] ORAL AT BEDTIME Jhon Pulido II, MD triamterene-hydroCHLOROt hiazide 37.5-25 mg 1 tablet (MAXZIDE-25) 1 tablet [...] (radiology procedure) INTRAVENOUS DIRECTED PRN Aliya Reza APRN.ACID ETCH OPERATOR levETIRAcetam 500 mg tab(s) (KEPPRA) 500 mg ORAL BID Aliya Reza APRN.SWATI COMPLETE REVIEW OF SYSTEMS Constitutional: Denies fatigue, [...] tab(s) (TOPROL XL) 50 mg ORAL BID triamterene-hydroCHLOROt hiazide 37.5-25 mg 1 tablet (MAXZIDE-25) 1 tablet ORAL D (more content not included)... Normal [facility] HISTORY PHYSICALon HISTORY PHYSICAL HNO ID: [id number] Author: JHON PULIDO II, MD Service: Hospital Medicine Author Type: Physician Type: H&P Filed: 03/01/2025 04:27 Note Text: DEPARTMENT OF HOSPITAL MEDICINE HISTORY AND PHYSICAL EXAM SERVICE DATE: 03/01/2025 SERVICE TIME: 3:07 AM Primary Care Physician: Mati Augustine DO, DO NIGHT AND WEEKEND COVERAGE: From 7am - 7pm, please call Sound attending After 7pm, please call cross cover pager #[phone] == ASSESSMENT AND PLAN: 1) Brain mass - [...] GERD - omeprazole 20 mg PO BID == == Chief Complaint: headaches, word-finding problems, incidentally discovered front lobe brain mass on outside CT HPI: Sierra Patton is a 54 year old female with history of depression, anxiety, HLD, RLS, GERD, PCOS and HTN who presents to the hospital from [place] due to an incidentally discovered bifrontal lobe brain mass. The patient had an outside CT of her thyroid that picked up the mass incidentally. She was advised to go to the ED so she presented to [place]. She stayed there until a bed opened [...] pain, dysuria or LE swelling. Labs at [place] revealed WBCs of 11.8, Hgb of 10.9, [...] 10 of Decadron while she was at [place]. ######################## ######################## ##### ######################## ######################## ##### ######################## ######################## ##### OTHER HISTORY################# ##################### ######################## ######################## ##### ######################## ######################## ##### ######################## ######################## ##### == ROS: Negative except those noted in HPI above == PHYSICAL EXAM GENERAL: Alert, no distress, cooperative [...] clear and coherent - no chronic rucker == All pertinent labs, imaging, medical Hx, Surgical Hx, Family Hx, Social Hx, home medications, and allergies reviewed. See below. == Medical History: depression anxiety HLD RLS GERD PCOS HTN == Surgical History: DANDC, tubal ligation, thumb surgery, LEEP, bone marrow biopsy == Family History: Father - alcohol abuse, depression, HTN, HLD Mother - Anxiety, depression, HTN, HLD == Social History: Tobacco History: Smoking status: Former Smokeless tobacco: Never Vaping History: No history of file Alcohol and Substance Use: No history on file == HOME MEDICATIONS clonazepam 1 mg PO at bedtime escitalopram 20 mg PO daily metoprolol 50 mg PO BID omeprazole 20 mg PO BID rosuvastatin 10 mg PO at bedtime triamterene 37.5 mg PO daily hydrochlorothiazide 25 mg PO daily == ALLERGIES (more content not included)... Normal [facility] [id number] 02-28-2025 [id number] Missed Session Unexcused Pt did not call or show for Psych IOP on this date. Called pt and talked to her daughter, Steph. She reported that the pt was just diagnosed with a brain tumor and will be undergoing surgery tomorrow. Asked Steph to have her call when she is able. Pt will be discharged. [facility] Absolute lymphocyte countOrd ered By: Godwin Lynch on 02-28-2025 Lymphocytes Auto (Unsp spec) [#/Vol] 0.96 10*3/uL 0.83-4.51 [facility] Absolute neutrophil countOrd ered By: Godwin Lynch on 02-28-2025 Neutrophils (Bld) [#/Vol] 10.5 10*3/uL High 2.0-7.7 [facility] Anion gap in Serum or Plasma Ordered By: Godwin Lynch on 02-28-2025 Anion gap [Moles/Vol] 13 mmol/L 5-15 [facility] Automated lymphocyte count a s percentage of total leukocytesOrdered By: Godwin Lynch on 02-28-2025 Lymphocytes/100 WBC Auto (Unsp spec) 8.1 % Low 19-41 [facility] BUN/creatinine ratioOrdered By: Godwin Lynch on 02-28-2025 Urea nitrogen/Creatinine [Mass ratio] 15.1 mg/mg - [facility] Basic Metabolic Profile (BMP )on 02-28-2025 BUN/CRE 15.1 RATIO Normal - [facility] Comment on above: Performed By: #### L 500.2500, L100.0100 #### [facility] [address] [place], [address] Calcium [Mass/Vol] 9.8 mg/dL Normal 7.6-11.0 [facility] Comment on above: Performed By: #### L 500.2500, L100.0100 #### [facility] [address] [place], [address] Chloride [Moles/Vol] 105 mmol/L Normal 98-108 [facility] Comment on above: Performed By: #### L 500.2500, L100.0100 #### [facility] [address] [place], [address] CO2 [Moles/Vol] 23.8 mmol/L Normal 21.0-32.0 [facility] Comment on above: Performed By: #### L 500.2500, L100.0100 #### [facility] [address] [place], [address] Creatinine [Mass/Vol] 0.85 mg/dL Normal 0.70-1.20 [facility] Comment on above: Performed By: #### L 500.2500, L100.0100 #### [facility] [address] [place], [address] ECRCL 78.23 ml/min Normal 50-250 [facility] Comment on above: Performed By: #### L 500.2500, L100.0100 #### [facility] [address] [place], [address] GAP 13 Normal 5-15 [facility] Comment on above: Performed By: #### L 500.2500, L100.0100 #### [facility] [address] [place], [address] GFR/1.73 sq M.predicted among non-blacks MDRD (S/P/Bld) [Vol rate/Area] 82 mL/min/{1.73_m2} Normal >60 [facility] Comment on above: Result Comment: mL/m in/1.73m2 CKD-EPI Creatinine Equation (2020) Performed By: #### L 500.2500, L100.0100 #### [facility] [address] [place], [address] Glucose [Mass/Vol] 158 mg/dL High 70-99 [facility] Comment on above: Performed By: #### L 500.2500, L100.0100 #### [facility] [address] [place], [address] Potassium [Moles/Vol] 4.1 mmol/L Normal 3.3-5.1 [facility] Comment on above: Performed By: #### L 500.2500, L100.0100 #### [facility] [address] [place], [address] Sodium [Moles/Vol] 142 mmol/L Normal 133-145 [facility] Comment on above: Performed By: #### L 500.2500, L100.0100 #### [facility] [address] [place], [address] Urea nitrogen [Mass/Vol] 13 mg/dL Normal 4-19 [facility] Comment on above: Performed By: #### L 500.2500, L100.0100 #### [facility] [address] [place], [address] Basophil percentageOrdered B y: Godwin Lynch on 05-29-2025 Basophils/100 WBC (Bld) 0.1 % 0-1 [facility] CBC W/Diff, Automatedon 05-2 -2024 Absolute Lymph 0.96 X10 3/uL Normal 0.83-4.51 [facility] Comment on above: Performed By: #### L 500.2500, L100.0100 #### [facility] [address] [place], [address] Absolute Neut 10.5 X10 3/uL High 2.0-7.7 [facility] Comment on above: Performed By: #### L 500.2500, L100.0100 #### [facility] [address] [place], [address] Basophils/100 WBC (Bld) 0.1 % Normal 0-1 [facility] Comment on above: Performed By: #### L 500.2500, L100.0100 #### [facility] [address] [place], [address] Eosinophils/100 WBC (Bld) 0.0 % Normal 0-5 [facility] Comment on above: Performed By: #### L 500.2500, L100.0100 #### [facility] [address] [place], [address] Erythrocyte distribution width (RBC) [Ratio] 14.5 % Normal 11.6-14.6 [facility] Comment on above: Performed By: #### L 500.2500, L100.0100 #### [facility] [address] [place], [address] Hematocrit (Bld) [Volume fraction] 32.1 % Low 37-47 [facility] Comment on above: Performed By: #### L 500.2500, L100.0100 #### [facility] [address] [place], [address] Hemoglobin (Bld) [Mass/Vol] 10.9 g/dL Low 12.0-15.0 [facility] Comment on above: Performed By: #### L 500.2500, L100.0100 #### [facility] [address] [place], [address] IG% 1.300 High 0.0-0.9 [facility] Comment on above: Result Comment: IG% - Immature Granulocytes (promyelocytes, myelocytes and metamyelocytes) > 1% indicates that a LEFT SHIFT is Present. Performed By: #### L 500.2500, L100.0100 #### [facility] [address] [place], [address] Lymphocytes/100 WBC (Bld) 8.1 % Low 19-41 [facility] Comment on above: Performed By: #### L 500.2500, L100.0100 #### [facility] [address] [place], [address] MCH (RBC) [Entitic mass] 28.6 pg Normal 27.0-32.0 [facility] Comment on above: Performed By: #### L 500.2500, L100.0100 #### [facility] [address] [place], [address] MCHC (RBC) [Mass/Vol] 34.0 g/dL Normal 32-36 [facility] Comment on above: Performed By: #### L 500.2500, L100.0100 #### [facility] [address] [place], [address] MCV (RBC) [Entitic vol] 84.3 fL Normal 81-99 [facility] Comment on above: Performed By: #### L 500.2500, L100.0100 #### [facility] [address] [place], [address] Monocytes/100 WBC (Bld) 1.8 % Normal 0-10 [facility] Comment on above: Performed By: #### L 500.2500, L100.0100 #### [facility] [address] [place], [address] Neutrophils/100 WBC (Bld) 88.7 % High 47-70 [facility] Comment on above: Performed By: #### L 500.2500, L100.0100 #### [facility] [address] [place], [address] Nucleated RBC (Bld) [#/Vol] 0 10*3/uL Normal 0-5 [facility] Comment on above: Performed By: #### L 500.2500, L100.0100 #### [facility] [address] [place], [address] Platelet mean volume (Bld) [Entitic vol] 9.4 fL Normal 6.2-12.0 [facility] Comment on above: Performed By: #### L 500.2500, L100.0100 #### [facility] [address] [place], [address] Platelets (Bld) [#/Vol] 341 10*3/uL Normal 150-450 [facility] Comment on above: Performed By: #### L 500.2500, L100.0100 #### [facility] [address] [place], [address] RBC (Bld) [#/Vol] 3.81 10*6/uL Low 4.2-5.4 [facility] Comment on above: Performed By: #### L 500.2500, L100.0100 #### [facility] [address] [place], [address] RDW SD 43.8 fl Normal 35.1-43.9 [facility] Comment on above: Performed By: #### L 500.2500, L100.0100 #### [facility] [address] [place], [address] WBC (Bld) [#/Vol] 11.8 10*3/uL High 4.4-11.0 [facility] Comment on above: Performed By: #### L 500.2500, L100.0100 #### [facility] [address] [place], [address] Carbon dioxide, total [Moles /volume] in Central venous bloodOrdered By: Godwin Lynch on 02-28-2025 CO2 [Moles/Vol] 23.8 mmol/L 21.0-32.0 [facility] Chloride assayOrdered By: Vishnu Lynch on 02-28-2025 Chloride [Moles/Vol] 105 mmol/L 98-108 [facility] Eosinophil percentageOrdered By: Godwin Lynch on 02-28-2025 Eosinophils/100 WBC (Bld) 0.0 % 0-5 [facility] Erythrocyte distribution wid th ratioOrdered By: Godwin Lynch on 02-28-2025 Erythrocyte distribution width (RBC) [Ratio] 14.5 % 11.6-14.6 [facility] Erythrocyte distribution wid th standard deviationOrdered By: Godwin Lynch on 02-28-2025 Erythrocyte distribution width (RBC) [Ratio] 43.8 fl 35.1-43.9 [facility] Glomerular filtration rate ( GFR) estimation/1.73 sq m using serum, plasma, or whole bOrdered By: Godwin Lynch on 02-28-2025 GFR/1.73 sq M.predicted among non-blacks MDRD (S/P/Bld) [Vol rate/Area] 82 mL/min/{1.73_m2} >60 [facility] Comment on above: mL/min/1.73m2 CKD-EP I Creatinine Equation (2020) Hematocrit Auto (Bld) [Volum e fraction]Ordered By: Godwin Lynch on 02-28-2025 Hematocrit (Bld) [Volume fraction] 32.1 % Low 37-47 [facility] Hemoglobin measurementOrdere d By: Godwin Lynch on 02-28-2025 Hemoglobin (Bld) [Mass/Vol] 10.9 g/dL Low 12.0-15.0 [facility] Immature granulocytes/100 WB C Auto (Bld)Ordered By: Godwin Lynch on 02-28-2025 Immature granulocytes/100 WBC (Bld) 1.300 % High 0.0-0.9 [facility] Comment on above: IG% - Immature Granu locytes (promyelocytes, myelocytes and metamyelocytes) > 1% indicates that a LEFT SHIFT is Present. MCV (mean corpuscular volume ) determinationOrdered By: Godwin Lynch on 02-28-2025 MCV (RBC) [Entitic vol] 84.3 fL 81-99 [facility] Mean corpuscular hemoglobin (MCH) determinationOrdered By: Godwin Lynch on 02-28-2025 MCH (RBC) [Entitic mass] 28.6 pg 27.0-32.0 [facility] Mean corpuscular hemoglobin concentration (MCHC) determinationOrdered By: Godwin Lynch on 02-28-2025 MCHC (RBC) [Mass/Vol] 34.0 g/dL 32-36 [facility] Mean platelet volume determi nationOrdered By: Godwin Lynch on 02-28-2025 Platelet mean volume (Bld) [Entitic vol] 9.4 fL 6.2-12.0 [facility] Monocyte percentageOrdered B y: Godwin Lynch on 02-28-2025 Monocytes/100 WBC (Bld) 1.8 % 0-10 [facility] Neutrophil percentageOrdered By: Godwin Lynch on 02-28-2025 Neutrophils/100 WBC (Bld) 88.7 % High 47-70 [facility] Nucleated red blood cell per centageOrdered By: Godwin Lynch on 02-28-2025 Nucleated RBC/100 WBC (Bld) [Ratio] 0 % 0-5 [facility] Platelet countOrdered By: Vishnu Lynch on 02-28-2025 Platelets (Bld) [#/Vol] 341 10*3/uL 150-450 [facility] Potassium measurement (mass/ volume)Ordered By: Godwin Lynch on 02-28-2025 Potassium (Unsp spec) [Mass/Vol] 4.1 mmol/L 3.3-5.1 [facility] RBC Auto (Bld) [#/Vol]Ordere d By: Godwin Lynch on 02-28-2025 RBC (Bld) [#/Vol] 3.81 10*6/uL Low 4.2-5.4 [facility] Serum creatinine measurement (mass/volume)Ordered By: Godwin Lynch on 02-28-2025 Creatinine [Mass/Vol] 0.85 mg/dL 0.70-1.20 [facility] Serum glucose measurement (m ass/volume)Ordered By: Godwin Lynch on 02-28-2025 Glucose [Mass/Vol] 158 mg/dL High 70-99 [facility] Serum or plasma calcium susanna urement (mass/volume)Ordered By: Godwin Lynch on 02-28-2025 Calcium [Mass/Vol] 9.8 mg/dL 7.6-11.0 [facility] Serum or plasma urea nitroge n measurement (mass/volume)Ordered By: Godwin Lynch on 02-28-2025 Urea nitrogen [Mass/Vol] 13 mg/dL 4-19 [facility] Sodium levelOrdered By: Godwin Lynch on 02-28-2025 Sodium [Moles/Vol] 142 mmol/L 133-145 [facility] White blood cell (WBC) count Ordered By: Godwin Lynch on 02-28-2025 WBC (Bld) [#/Vol] 11.8 10*3/uL High 4.4-11.0 [facility] Absolute lymphocyte countOrd ered By: Olive Yang on 02-27-2025 Lymphocytes Auto (Unsp spec) [#/Vol] 1.32 10*3/uL 0.83-4.51 [facility] Absolute neutrophil countOrd ered By: Olive Yang on 02-27-2025 Neutrophils (Bld) [#/Vol] 4.5 10*3/uL 2.0-7.7 [facility] Anion gap in Serum or Plasma Ordered By: Olive Yang on 02-27-2025 Anion gap [Moles/Vol] 11 mmol/L 5-15 [facility] Automated lymphocyte count a s percentage of total leukocytesOrdered By: Olive Yang on 02-27-2025 Lymphocytes/100 WBC Auto (Unsp spec) 20.4 % 19-41 [facility] BUN/creatinine ratioOrdered By: Olive Marielenalilian on 02-27-2025 Urea nitrogen/Creatinine [Mass ratio] 11.9 mg/mg 10- [facility] Basic Metabolic Profile (BMP )on 02-27-2025 BUN/CRE 11.9 RATIO Normal - [facility] Comment on above: Performed By: #### L 500.2500, L100.0100 #### [facility] [address] [place], [address] Calcium [Mass/Vol] 9.6 mg/dL Normal 7.6-11.0 [facility] Comment on above: Performed By: #### L 500.2500, L100.0100 #### [facility] [address] [place], [address] Chloride [Moles/Vol] 106 mmol/L Normal 98-108 [facility] Comment on above: Performed By: #### L 500.2500, L100.0100 #### [facility] [address] [place], [address] CO2 [Moles/Vol] 26.2 mmol/L Normal 21.0-32.0 [facility] Comment on above: Performed By: #### L 500.2500, L100.0100 #### [facility] [address] [place], [address] Creatinine [Mass/Vol] 1.16 mg/dL Normal 0.70-1.20 [facility] Comment on above: Performed By: #### L 500.2500, L100.0100 #### [facility] [address] [place], [address] ECRCL 58.17 ml/min Normal 50-250 [facility] Comment on above: Performed By: #### L 500.2500, L100.0100 #### [facility] [address] [place], [address] GAP 11 Normal 5-15 [facility] Comment on above: Performed By: #### L 500.2500, L100.0100 #### [facility] [address] [place], [address] GFR/1.73 sq M.predicted among non-blacks MDRD (S/P/Bld) [Vol rate/Area] 56 mL/min/{1.73_m2} Low >60 [facility] Comment on above: Result Comment: mL/m in/1.73m2 CKD-EPI Creatinine Equation (2020) Performed By: #### L 500.2500, L100.0100 #### [facility] [address] [place], [address] Glucose [Mass/Vol] 108 mg/dL High 70-99 [facility] Comment on above: Performed By: #### L 500.2500, L100.0100 #### [facility] [address] [place], [address] Potassium [Moles/Vol] 4.2 mmol/L Normal 3.3-5.1 [facility] Comment on above: Performed By: #### L 500.2500, L100.0100 #### [facility] [address] [place], [address] Sodium [Moles/Vol] 143 mmol/L Normal 133-145 [facility] Comment on above: Performed By: #### L 500.2500, L100.0100 #### [facility] [address] [place], [address] Urea nitrogen [Mass/Vol] 14 mg/dL Normal 4-19 [facility] Comment on above: Performed By: #### L 500.2500, L100.0100 #### [facility] [address] [place], [address] Basophil percentageOrdered B y: Olive Yang on 02-27-2025 Basophils/100 WBC (Bld) 0.6 % 0-1 [facility] Bedside Glucoseon 02-27-2025 FINGERSTICK GLU 146 mg/dL High 74-106 [facility] Comment on above: Result Comment: ELIER MENDEZ OF PATIENT CARE PER NURSING PROTOCOL Performed By: #### L 500.2500, L100.0100 #### [facility] [address] [place], [address] Brain/Head W/WO Contraston 0 02-27-2025 Brain/Head W/WO Contrast [facility] Imaging Services [address] [place] [address] Brain/Head W/WO Contrast MR#: [id number] Acct: [id number] Name: SIERRA PATTON Rep #: [id number] : 1970 F 54 From: Rodo seals MD PCP: Dr. Mati Augustine, DO Status: REG ER Study: Brain/Head W/WO Contrast Date of Exam: 5 Exam# [id number] Ordering Dr: Olive Yang MD PROCEDURE: BRAIN/HEAD [...] out. No evidence of hydrocephalus. Reading Location: [place] [address] CC: Dr. Olive Yang MD; Dr. Mati Augustine DO Wood Caulker: Signed Normal [facility] CBC W/Diff, Automatedon 05-2 Absolute Lymph 1.32 X10 3/uL Normal 0.83-4.51 [facility] Comment on above: Performed By: #### L 500.2500, L100.0100 #### [facility] [address] [place], [address] Absolute Neut 4.5 X10 3/uL Normal 2.0-7.7 [facility] Comment on above: Performed By: #### L 500.2500, L100.0100 #### [facility] [address] [place], [address] Basophils/100 WBC (Bld) 0.6 % Normal 0-1 [facility] Comment on above: Performed By: #### L 500.2500, L100.0100 #### [facility] [address] [place], [address] Eosinophils/100 WBC (Bld) 3.4 % Normal 0-5 [facility] Comment on above: Performed By: #### L 500.2500, L100.0100 #### [facility] [address] [place], [address] Erythrocyte distribution width (RBC) [Ratio] 14.5 % Normal 11.6-14.6 [facility] Comment on above: Performed By: #### L 500.2500, L100.0100 #### [facility] [address] [place], [address] Hematocrit (Bld) [Volume fraction] 30.3 % Low 37-47 [facility] Comment on above: Performed By: #### L 500.2500, L100.0100 #### [facility] [address] [place], [address] Hemoglobin (Bld) [Mass/Vol] 10.4 g/dL Low 12.0-15.0 [facility] Comment on above: Performed By: #### L 500.2500, L100.0100 #### [facility] [address] [place], [address] IG% 0.600 Normal 0.0-0.9 [facility] Comment on above: Result Comment: IG% - Immature Granulocytes (promyelocytes, myelocytes and metamyelocytes) > 1% indicates that a LEFT SHIFT is Present. Performed By: #### L 500.2500, L100.0100 #### [facility] [address] [place], [address] Lymphocytes/100 WBC (Bld) 20.4 % Normal 19-41 [facility] Comment on above: Performed By: #### L 500.2500, L100.0100 #### [facility] [address] [place], [address] MCH (RBC) [Entitic mass] 29.0 pg Normal 27.0-32.0 [facility] Comment on above: Performed By: #### L 500.2500, L100.0100 #### [facility] [address] [place], [address] MCHC (RBC) [Mass/Vol] 34.3 g/dL Normal 32-36 [facility] Comment on above: Performed By: #### L 500.2500, L100.0100 #### [facility] [address] [place], [address] MCV (RBC) [Entitic vol] 84.4 fL Normal 81-99 [facility] Comment on above: Performed By: #### L 500.2500, L100.0100 #### [facility] [address] [place], [address] Monocytes/100 WBC (Bld) 5.9 % Normal 0-10 [facility] Comment on above: Performed By: #### L 500.2500, L100.0100 #### [facility] [address] [place], [address] Neutrophils/100 WBC (Bld) 69.1 % Normal 47-70 [facility] Comment on above: Performed By: #### L 500.2500, L100.0100 #### [facility] [address] [place], [address] Nucleated RBC (Bld) [#/Vol] 0 10*3/uL Normal 0-5 [facility] Comment on above: Performed By: #### L 500.2500, L100.0100 #### [facility] [address] [place], [address] Platelet mean volume (Bld) [Entitic vol] 9.1 fL Normal 6.2-12.0 [facility] Comment on above: Performed By: #### L 500.2500, L100.0100 #### [facility] [address] [place], [address] Platelets (Bld) [#/Vol] 260 10*3/uL Normal 150-450 [facility] Comment on above: Performed By: #### L 500.2500, L100.0100 #### [facility] [address] [place], [address] RBC (Bld) [#/Vol] 3.59 10*6/uL Low 4.2-5.4 [facility] Comment on above: Performed By: #### L 500.2500, L100.0100 #### [facility] [address] [place], [address] RDW SD 44.0 fl High 35.1-43.9 [facility] Comment on above: Performed By: #### L 500.2500, L100.0100 #### [facility] [address] [place], [address] WBC (Bld) [#/Vol] 6.5 10*3/uL Normal 4.4-11.0 [facility] Comment on above: Performed By: #### L 500.2500, L100.0100 #### [facility] [address] [place], [address] CTA Chest W/WO Contraston CTA Chest W/WO Contrast [facility] Imaging Services [address] [place] [address] CTA Chest W/WO Contrast MR#: [id number] Acct: [id number] Name: SIERRA PATTON Rep #: [id number] : 1970 F 54 From: Rodo seals MD PCP: Dr. Mati Augustine, DO Status: REG ER Study: CTA Chest W/WO Contrast Date of Exam: 02/27/25 Exam# [id number] Ordering Dr: Olive Yang MD PROCEDURE: CTA [...] of multiple small hepatic cysts. Reading Location: [place] [address] CC: Dr. Olive Yang MD; Dr. Mati Augustine DO Wood Caulker: Signed Normal [facility] Carbon dioxide, total [Moles /volume] in Central venous bloodOrdered By: Olive Yang on 02-27-2025 CO2 [Moles/Vol] 26.2 mmol/L 21.0-32.0 [facility] Chloride assayOrdered By: Jose Yang on 02-27-2025 Chloride [Moles/Vol] 106 mmol/L 98-108 [facility] Emergency Department Summary on 02-27-2025 Emergency Department Summary [facility] Medical Records Department [address] [place] [address] Emergency Department Summary 02/27/25 MR#: [id number] Acct: [id number] Name: SIERRA PATTON Rep #: [id number] : 1970 54 From: Olive Yang MD PCP: Dr. Mati Augustine DO Status:REG ER Location: ED ADDENDUM by Dr. Ron Hurley DO on 02/27/25 at 1832 Update: 1830 hrs. 27 Feb 2025 No wheezing at this time I reviewed the patient's ED course and the plan to transfer to [facility]. Unfortunately I am told by their [...] was sent in by her surgeon, Dr. Trevor Lanier, for further imaging studies. In discussion [...] she did not remember going to the [employer] or driving there the other day. She denies any headaches or nausea and vomiting. No exacerbating or alleviating factors. [facility] Medical History Chronic renal failure [...] History current occupational status: employed current occupation: [employer] Smoking Status: Unknown if ever smoked alcohol intake: current alcohol intake frequency: a few times a month Alcohol type: wine rosenbaum (more content not included)... Normal [facility] Eosinophil percentageOrdered By: Olive Yang on 02-27-2025 Eosinophils/100 WBC (Bld) 3.4 % 0-5 [facility] Erythrocyte distribution wid th ratioOrdered By: Olive Yang on 02-27-2025 Erythrocyte distribution width (RBC) [Ratio] 14.5 % 11.6-14.6 [facility] Erythrocyte distribution wid th standard deviationOrdered By: Olive Yang on 05-28-2025 Erythrocyte distribution width (RBC) [Ratio] 44.0 fl High 35.1-43.9 [facility] Glomerular filtration rate ( GFR) estimation/1.73 sq m using serum, plasma, or whole bOrdered By: Olive Yang on 02-27-2025 GFR/1.73 sq M.predicted among non-blacks MDRD (S/P/Bld) [Vol rate/Area] 56 mL/min/{1.73_m2} Low >60 [facility] Comment on above: mL/min/1.73m2 CKD-EP I Creatinine Equation (2020) Glucose measurement at [facility] deOrdered By: Olive Yang on 02-27-2025 Glucose [Mass/Vol] 146 mg/dL High 74-106 [facility] Comment on above: MANAGEMENT OF PATIEN T CARE PER NURSING PROTOCOL H AND P Exam - [place] 02-27-2025 H&P Exam - Hospitalist [facility] Medical Records Department [address] [place] [address] H P Exam - Hospitalist 02/27/25 1847 MR#: [id number] Acct: [id number] Name: SIERRA PATTON Rep #: [id number] : 1970 54 From: Godwin Lynch DO PCP: Dr. Mati Augustine, DO Status:REG ER Location: ED [facility] Date of Service: 02/27/25 Chief Complaint: Brain [...] of dexamethasone. And they reached out to [facility] with neurosurgery and the patient was excepted. However they do not have any readily available beds of the hospital service at [facility] was contacted for admission until a bed becomes available at [facility]. Patient states that she has had some mild difficulties that she did not really attribute to anything particular other than just getting older including occasional difficulty learning to spell common words but these would be transient and being forgetful at times but once again transient. Denied any weakness or any kind of visual changes. [facility] Medical History Chronic renal failure Trigger thumb [...] History current occupational status: employed current occupation: [employer] Smoking Status: Unknown if ever smoked alcohol intake: current alcohol intake frequency: a few times a month Alcohol type: wine substance use type: does not use caffeine: Yes what type of physical activity do you participate in: walking and other details: rowing frequency: 1-2 times per week ROS (more content not included)... Normal [facility] Hematocrit Auto (Bld) [Volum e fraction]Ordered By: Olive Yang on 02-27-2025 Hematocrit (Bld) [Volume fraction] 30.3 % Low 37-47 [facility] Hemoglobin measurementOrdere d By: Olive Yang on 02-27-2025 Hemoglobin (Bld) [Mass/Vol] 10.4 g/dL Low 12.0-15.0 [facility] Immature granulocytes/100 WB C Auto (Bld)Ordered By: Olive Yang on 02-27-2025 Immature granulocytes/100 WBC (Bld) 0.600 % 0.0-0.9 [facility] Comment on above: IG% - Immature Granu locytes (promyelocytes, myelocytes and metamyelocytes) > 1% indicates that a LEFT SHIFT is Present. MCV (mean corpuscular volume ) determinationOrdered By: Olive Yang on 02-27-2025 MCV (RBC) [Entitic vol] 84.4 fL 81-99 [facility] Mean corpuscular hemoglobin (MCH) determinationOrdered By: Olive Yang on 02-27-2025 MCH (RBC) [Entitic mass] 29.0 pg 27.0-32.0 [facility] Mean corpuscular hemoglobin concentration (MCHC) determinationOrdered By: Olive Yang on 02-27-2025 MCHC (RBC) [Mass/Vol] 34.3 g/dL 32-36 [facility] Mean platelet volume determi nationOrdered By: Olive Yang on 02-27-2025 Platelet mean volume (Bld) [Entitic vol] 9.1 fL 6.2-12.0 [facility] Monocyte percentageOrdered B y: Olive Yang on 02-27-2025 Monocytes/100 WBC (Bld) 5.9 % 0-10 [facility] Neutrophil percentageOrdered By: Olive Yang on 02-27-2025 Neutrophils/100 WBC (Bld) 69.1 % 47-70 [facility] Nucleated red blood cell per centageOrdered By: Olive Yang on 02-27-2025 Nucleated RBC/100 WBC (Bld) [Ratio] 0 % 0-5 [facility] Platelet countOrdered By: Jose Yang on 02-27-2025 Platelets (Bld) [#/Vol] 260 10*3/uL 150-450 [facility] Potassium measurement (mass/ volume)Ordered By: Olive Yang on 02-27-2025 Potassium (Unsp spec) [Mass/Vol] 4.2 mmol/L 3.3-5.1 [facility] RBC Auto (Bld) [#/Vol]Ordere d By: Olive Yang on 02-27-2025 RBC (Bld) [#/Vol] 3.59 10*6/uL Low 4.2-5.4 [facility] Serum creatinine measurement (mass/volume)Ordered By: Olive Yang on 02-27-2025 Creatinine [Mass/Vol] 1.16 mg/dL 0.70-1.20 [facility] Serum glucose measurement (m ass/volume)Ordered By: Olive Yang on 02-27-2025 Glucose [Mass/Vol] 108 mg/dL High 70-99 [facility] Serum or plasma calcium susanna urement (mass/volume)Ordered By: Olive Yang on 02-27-2025 Calcium [Mass/Vol] 9.6 mg/dL 7.6-11.0 [facility] Serum or plasma urea nitroge n measurement (mass/volume)Ordered By: Olive Yang on 02-27-2025 Urea nitrogen [Mass/Vol] 14 mg/dL 4-19 [facility] Sodium levelOrdered By: Olive Yang on 02-27-2025 Sodium [Moles/Vol] 143 mmol/L 133-145 [facility] Soft Tissue Neck WITH Contra ston 02-27-2025 Soft Tissue Neck WITH Contrast [facility] Imaging Services [address] [place] [address] Soft Tissue Neck WITH Contrast MR#: [id number] Acct: [id number] Name: SIERRA PATTON Rep #: [id number] : 1970 F 54 From: Ted Duffy MD PCP: Dr. Mati Augustine, DO Status: REG CLI Study: Soft Tissue Neck WITH Contrast Date of Exam: 0 02/27/25 Exam# [id number] Ordering Dr: Trevor Lanier MD PROCEDURE: SOFT TISSUE NECK WITH [...] LATOYA CC: Dr. Mati Augustine, DO; Dr. Trevor Lanier MD [place]ulker: Signed [facility] White blood cell (WBC) count Ordered By: Olive Yang on 02-27-2025 WBC (Bld) [#/Vol] 6.5 10*3/uL 4.4-11.0 [facility] [id number] 02-26-2025 [id number] Admission Certificat ion I certify that this patient would require a higher level of care if intensive outpatient program (IOP) services were not provided, that the patient needs a minimum of 9 hours of IOP services per week, that the services will be furnished under the care of a physician, and under a written plan of treatment authorized and approved by the physician. [facility] [id number] 02-26-2025 [id number] OUTPATIENT [facility] PHYSICIAN ORDERS Admit to: [] Partial Hospitalization [...] DATE [] Depakote Level on NA [] Cutler Level on DATE [] Other: NA 8. [...] (identify): 9. Additional: 10. Physician: Dr. Frankel [facility] [id number] Admission Note Psychiatric IOP Date: 02/26/2025 Start Time: 4 End Time: 415 Patient is admitted to Psychiatric IOP on this date. Patient reported understanding and [...] Goal-directed Thought Content: No evidence of psychosis/delusions [facility] 94 02-26-[address] [place] [address] Group Therapy Documentation Program: Psychiatric Intensive Outpatient Program Group Type: Psychiatric IOP Group Date: 02/26/2025 Facilitators: CAROLINE Torres-S Department: [facility] Psych IOP Group No: 1 Start Time: [...] Continue with current services Additional Comments (optional): [facility] Progress Noteon 02-19-2025 Progress Note Outpatient [facility] Initial Assessment Start Time: 913, End Time: 114[address] a [address] Appointed Guardian? None Does patient have a Durable Power of Beet Flumer? Yes (Name) (Pt reported her significant other [...] for PTSD diagnostic Criteria Language Preferred Language: Bahamian Languages Spoken: Bahamian Presenting Problem(s) Reason for visit as reported [...] and made an appointment with Clinician for 02/19/25. Pt further reported Brie was once employed for [employer]. Pt described a lifetime history of anxiety, [...] were you homeless or living in a snf (including now)?: No Patient feels safe at [...] reported she was born and raised in [place]. Pt reported she was raised predominantly by [...] caregiver? How does patient describe relationship with paren (more content not included)... Normal [facility] Internal Medicine Office Vis iton 02-06-2025 Internal Medicine Office Visit [facility] [address] [place] [address] [place] [address] OFFICE VISIT Date of Service: 02/06/25 MR#: [id number] Acct: [id number] Name: SIERRA PATTON Rep #: [id number] : 1970 Provider: Dr. Mati aj, DO Age/Sex: 54/F Location: [facility] Status: Signed Intake Vital Signs 12/25/24 08:35 [...] WK FU Chief Complaint: I feel depressed. [employer]bin Sorter Required: No Is patient in pain?: No [...] sometimes she would be better off . [facility] Medical History Chronic renal failure Trigger thumb [...] History current occupational status: employed current occupation: [employer] Smoking Status: Former smoker alcohol intake: current alcohol intake frequency: a few times a month Alcohol type: wine substance use type: does not use caffeine: Yes what type of physical activity do you participate in: walking and other details: rowing frequency: 1-2 times per week Questionnaire [facility] BMS Over the last 2 weeks, how often have you been bothered by any of the following (more content not included)... Normal [facility] Anion gap in Serum or Plasma Ordered By: Briseida Starks on 01-26-2025 Anion gap [Moles/Vol] 12 mmol/L 5-15 [facility] BUN/creatinine ratioOrdered By: Briseida Starks on 01-26-2025 Urea nitrogen/Creatinine [Mass ratio] 16.0 mg/mg 10-20 [facility] Carbon dioxide, total [Moles /volume] in Central venous bloodOrdered By: Briseida Starks on 01-26-2025 CO2 [Moles/Vol] 25.9 mmol/L 21.0-32.0 [facility] Chloride assayOrdered By: Katarina Starks on 01-26-2025 Chloride [Moles/Vol] 104 mmol/L 98-108 [facility] Glomerular filtration rate ( GFR) estimation/1.73 sq m using serum, plasma, or whole bOrdered By: Briseida Starks on 01-26-2025 GFR/1.73 sq M.predicted among non-blacks MDRD (S/P/Bld) [Vol rate/Area] 56 mL/min/{1.73_m2} Low >60 [facility] Comment on above: mL/min/1.73m2 CKD-EP I Creatinine Equation (2020) Potassium measurement (mass/ volume)Ordered By: Briseida Starks on 01-26-2025 Potassium (Unsp spec) [Mass/Vol] 3.7 mmol/L 3.3-5.1 [facility] Renal Profileon 01-26-2025 Albumin [Mass/Vol] 4.6 g/dL Normal 3.5-5.0 [facility] Comment on above: Performed By: #### L 500.2500, L100.0100 #### [facility] [address] [place], [address] BUN/CRE 16.0 RATIO Normal 10-20 [facility] Comment on above: Performed By: #### L 500.2500, L100.0100 #### [facility] [address] [place], [address] Calcium [Mass/Vol] 9.6 mg/dL Normal 7.6-11.0 [facility] Comment on above: Performed By: #### L 500.2500, L100.0100 #### [facility] [address] [place], [address] Chloride [Moles/Vol] 104 mmol/L Normal 98-108 [facility] Comment on above: Performed By: #### L 500.2500, L100.0100 #### [facility] [address] [place], [address] CO2 [Moles/Vol] 25.9 mmol/L Normal 21.0-32.0 [facility] Comment on above: Performed By: #### L 500.2500, L100.0100 #### [facility] [address] [place], [address] Creatinine [Mass/Vol] 1.17 mg/dL Normal 0.70-1.20 [facility] Comment on above: Performed By: #### L 500.2500, L100.0100 #### [facility] [address] [place], [address] GAP 12 Normal 5-15 [facility] Comment on above: Performed By: #### L 500.2500, L100.0100 #### [facility] [address] [place], [address] GFR/1.73 sq M.predicted among non-blacks MDRD (S/P/Bld) [Vol rate/Area] 56 mL/min/{1.73_m2} Low >60 [facility] Comment on above: Result Comment: mL/m in/1.73m2 CKD-EPI Creatinine Equation (2020) Performed By: #### L 500.2500, L100.0100 #### [facility] [address] [place], [address] Glucose [Mass/Vol] 100 mg/dL High 70-99 [facility] Comment on above: Performed By: #### L 500.2500, L100.0100 #### [facility] [address] [place], [address] Phosphate [Mass/Vol] 3.6 mg/dL Normal 2.7-4.5 [facility] Comment on above: Performed By: #### L 500.2500, L100.0100 #### [facility] [address] [place], [address] Potassium [Moles/Vol] 3.7 mmol/L Normal 3.3-5.1 [facility] Comment on above: Performed By: #### L 500.2500, L100.0100 #### [facility] [address] [place], [address] Sodium [Moles/Vol] 142 mmol/L Normal 133-145 [facility] Comment on above: Performed By: #### L 500.2500, L100.0100 #### [facility] [address] [place], [address] Urea nitrogen [Mass/Vol] 19 mg/dL Normal 4-19 [facility] Comment on above: Performed By: #### L 500.2500, L100.0100 #### [facility] [address] [place], [address] Serum creatinine measurement (mass/volume)Ordered By: Briseida Starks on 01-26-2025 Creatinine [Mass/Vol] 1.17 mg/dL 0.70-1.20 [facility] Serum glucose measurement (m ass/volume)Ordered By: Briseida Starks on 01-26-2025 Glucose [Mass/Vol] 100 mg/dL High 70-99 [facility] Serum or plasma albumin susanna urement (mass/volume)Ordered By: Briseida Starks on 01-26-2025 Albumin [Mass/Vol] 4.6 g/dL 3.5-5.0 [facility] Serum or plasma calcium susanna urement (mass/volume)Ordered By: Briseida Starks on 01-26-2025 Calcium [Mass/Vol] 9.6 mg/dL 7.6-11.0 [facility] Serum or plasma urea nitroge n measurement (mass/volume)Ordered By: Briseida Starks on 01-26-2025 Urea nitrogen [Mass/Vol] 19 mg/dL 4-19 [facility] Sodium levelOrdered By: Pooja Starks on 01-26-2025 Sodium [Moles/Vol] 142 mmol/L 133-145 [facility] Free T3on 01-15-2025 Free T3 [Mass/Vol] 3.3 pg/mL Normal 2.18-3.98 [facility] Comment on above: Performed By: #### L 501.64963, L506.0400, L501.9520 #### [facility] [address] [place], [place], [id number] Free R6Hguffea By: Trevor armenta on 01-15-2025 Free T3 [Mass/Vol] 3.3 pg/mL 2.18-3.98 [facility] Free Triiodothyronine (T3) pg/dL 3.3 pg/mL 2.18-3.98 [facility] T4 Free Directon 01-15-2025 T4 FREE DIRECT 0.90 ng/dL Normal 0.76-1.46 [facility] Comment on above: Performed By: #### L 501.11670, L506.0400, L501.9520 #### [facility] [address] [place], [address] T4 freeOrdered By: Trevor armenta on 01-15-2025 Free T4 [Mass/Vol] 0.90 ng/dL 0.76-1.46 [facility] TSH DL <= 0.005 mIU/L QnOrde red By: Trevor Lanier on 01-15-2025 Thyroid Stimulating Hormone (TSH) 2.010 uIU/mL 0.300-4.200 [facility] TSH Qn 2.010 uIU/mL 0.300-4.200 [facility] Thyroid Stim Hormone (TSH)on 01-15-2025 TSH 2.010 uIU/mL Normal 0.300-4.200 [facility] Comment on above: Performed By: #### L 501.68843, L506.0400, L501.9520 #### [facility] [address] [place], [address] Surgery Visit Reporton 01-11 Surgery Visit Report [facility] [address] [place] [address] OFFICE VISIT Date of Service: 01/11/25 MR#: [id number] Acct: [id number] Name: SIERRA PATTON Rep #: [id number] : 1970 Provider: Dr. Trevor joiner MD Age/Sex: 54/F Location: [facility] Status: Signed Intake Vital Signs 07/27/24 09:32 [...] History current occupational status: employed current occupation: [employer] Smoking Status: Former smoker alcohol intake: current [...] any ho (more content not included)... Normal [facility] Thyroidon 01-05-[address] [facility] Imaging Services [address] [place], [place] [id number] Thyroid MR#: [id number] Acct: [id number] Name: SIERRA PATTON Rep #: [id number] : 1970 F 54 From: Cheikh Tenorio DO PCP: Dr. Mati Augustine, DO Status: REG CLI Study: Thyroid Date of Exam: 01/05/25 Exam# [id number] Ordering Dr: Trevor Lanier MD PROCEDURE: THYROID 01/05/2025 THYROID ULTRASOUND [...] follow-up per ACR TI-RADS guidelines Reading Location: [facility] CC: Dr. Mati Augustine DO; Dr. Trevor Lanier MD [place] Caulker: Signed Normal [facility] Internal Medicine Office Vis iton 12-25-2024 Internal Medicine Office Visit [facility] [address] [place] [address] [place] [address] OFFICE VISIT Date of Service: 12/25/24 MR#: [id number] Acct: [id number] Name: SIERRA PATTON Rep #: [id number] : 1970 Provider: Dr. Mati aj DO Age/Sex: 54/F Location: [facility] Status: Signed Intake Vital Signs 06/26/24 08:24 [...] Reasons: 6 m fu Chief Complaint: fu Bobbin Sorter Required: No Accompanied by: Self Is patient [...] No Nurse's Note: discuss anxiety and depression [facility] Medical History Chronic renal failure Trigger thumb [...] History current occupational status: employed current occupation: [employer] Smoking Status: Former smoker alcohol intake: current [...] far t (more content not included)... Normal [facility] Oncology Visit Reporton 12-01 Oncology Visit Report [facility] [place] [facility] [address] [place] [address] OFFICE VISIT Date of Service: 12/11/24 1146 MR#: [id number] Acct: [id number] Name: SIERRA PATTON Rep #: [id number] : 1970 From: Yaniv Crawford MD Age/Sex: 54/F Location: [facility] Status: Signed HPI Subjective Date of Service [...] evidence of lymphoproliferative disorder CYTOGENETICS REPORT FROM [facility] INTERPRETATION: A normal female karyotype was observed in twenty metaphases analyzed. Karyotype: 46,XX FLUORESCENCE IN-SITU HYBRIDIZATION (FISH) FROM [facility] INTERPRETATION: 1. No evidence of trisomy 12 (+12). 2. No evidence of [id number] (13q14.3). 3. No evidence of p53 (17p13) [...] in the inferior aspect of the spleen. [facility] Medical History Chronic renal failure Trigger thumb [...] (cerebral va (more content not included)... Normal [facility] Abdomen WITH IV Contraston 0 12-05-2024 Abdomen WITH IV Contrast [facility] Imaging Services [address] [place], [place] [id number] Abdomen WITH IV Contrast MR#: [id number] Acct: [id number] Name: SIERRA PATTON Rep #: [id number] : 1970 F 54 From: Rodo seals MD PCP: Dr. Mati Augustine, DO Status: REG CLI Study: Abdomen WITH IV Contrast Date of Exam: 5 Exam# [id number] Ordering Dr: Yaniv Crawford MD PROCEDURE: ABDOMEN [...] use of iterative reconstruction technique). Reading Location: [id number] CC: Dr. Mati Augustine DO; Dr. Yaniv Crawford MD Wood Caulker: Signed Normal [facility] CREATININE FINGERSTICKon CREATININE WB < 1.0 Normal 0.55-1.02 [facility] Comment on above: Performed By: #### L 500.2500, L100.0100 #### [facility] [address] [place], [place], [id number] EGFR WB > 60.0000 Normal >60 [facility] Comment on above: Performed By: #### L 500.2500, L100.0100 #### [facility] [address] [place], [place], [id number] Creatinine measurement at dsideOrdered By: Yaniv Crawford on 12-05-2024 Bedside Creatinine < 1.0 mg/dL 0.55-1.02 [facility] EGFROrdered By: Yaniv joseph on 12-05-2024 Bedside Estimated GFR (eGFR) > 60.0000 mL/min >60 [facility] GFR/1.73 sq M.predicted among non-blacks MDRD (S/P/Bld) [Vol rate/Area] mL/min/{1.73_m2} >60 [facility] SCRN MAMM (CAD)W/KIARRA BILATo n 10-11-2024 SCRN MAMM (CAD)W/KIARRA BILAT [facility] Imaging Services [address] [place], [place] [id number] SCRN MAMM (CAD)W/KIARRA BILAT MR#: [id number] Acct: [id number] Name: SIERRA PATTON Rep #: [id number] : 1970 F 54 From: Rodo seals MD PCP: Dr. Mati Augustine, DO Status: [facility] Study: SCRN MAMM (CAD)W/KIARRA BILAT Date of Exam: 06/27 Exam# [id number] Ordering Dr: Yaniv Crawford MD [id number] MAMMOGRAPHY - BILATERAL SCREENING REASON FOR EXAM: [...] delay biopsy of a clinically suspicious abnormality. [id number] Electronically Signed: Rodo Sanford MD at 8:56 EST , CC: Dr. Mati Augustine DO; Dr. Yaniv Crawford MD [place] Caulker: Signed Normal [facility] Blood urea nitrogen (BUN)/cr eatinine ratioOrdered By: Briseida Starks on 08-24-2024 Urea nitrogen/Creatinine [Mass ratio] 13.0 mg/mg 10-20 [facility] Carbon dioxide measurementOr dered By: Briseida Starks on 08-24-2024 CO2 [Moles/Vol] 28.0 mmol/L 21.0-32.0 [facility] Chloride measurementOrdered By: Briseida Starks on 08-24-2024 Chloride [Moles/Vol] 106 mmol/L 98-107 [facility] Estimated glomerular filtrat ion rate (GFR) AmericanOrdered By: Briseida Starks on 08-24-2024 Estimated GFR (MDRD) Amer 82 mL/min >60 [facility] Comment on above: GFR Calc Glomerular filtration rate ( GFR) estimationOrdered By: Briseida Starks on 08-24-2024 Estimated GFR (MDRD) Non-Af Amer 67 mL/min >60 [facility] Comment on above: Non- GFR Calc Glucose measurementOrdered B y: Briseida Starks on 08-24-2024 Glucose [Mass/Vol] 96 mg/dL 74-106 [facility] Phosphorus measurementOrdere d By: Briseida Starks on 08-24-2024 Phosphorus Level 3.6 mg/dL 2.5-4.9 [facility] Potassium measurementOrdered By: Briseida Starks on 08-24-2024 Potassium [Moles/Vol] 3.5 mmol/L 3.5-5.1 [facility] Renal Profileon 08-24-2024 Albumin [Mass/Vol] 4.1 g/dL Normal 3.2-5.0 [facility] Comment on above: Performed By: #### L 500.2500, L100.0100 #### [facility] [address] [place], [address] BUN/CRE 13.0 RATIO Normal 10-20 [facility] Comment on above: Performed By: #### L 500.2500, L100.0100 #### [facility] [address] [place], [address] CA,Total 9.5 mg/dL Normal 8.5-10.1 [facility] Comment on above: Performed By: #### L 500.2500, L100.0100 #### [facility] [address] [place], [address] Chloride [Moles/Vol] 106 mmol/L Normal 98-107 [facility] Comment on above: Performed By: #### L 500.2500, L100.0100 #### [facility] [address] [place], [address] CO2 [Moles/Vol] 28.0 mmol/L Normal 21.0-32.0 [facility] Comment on above: Performed By: #### L 500.2500, L100.0100 #### [facility] [address] [place], [address] Creatinine [Mass/Vol] 0.92 mg/dL Normal 0.55-1.02 [facility] Comment on above: Result Comment: The validity of the calculated GFR GFRAA in patients over 70 years has not been determined. Clinical correlation is essential. Performed By: #### L 500.2500, L100.0100 #### [facility] [address] [place], [address] EST GFR - AA 82 mL/min Normal >60 [facility] Comment on above: Result Comment: Afri can Belarusian GFR Calc Performed By: #### L 500.2500, L100.0100 #### [facility] [address] [place], [address] GFR/1.73 sq M.predicted among non-blacks MDRD (S/P/Bld) [Vol rate/Area] 67 mL/min/{1.73_m2} Normal >60 [facility] Comment on above: Result Comment: Non- GFR Calc Performed By: #### L 500.2500, L100.0100 #### [facility] [address] [place], [address] Glucose [Mass/Vol] 96 mg/dL Normal 74-106 [facility] Comment on above: Performed By: #### L 500.2500, L100.0100 #### [facility] [address] [place], [address] Phosphate [Mass/Vol] 3.6 mg/dL Normal 2.5-4.9 [facility] Comment on above: Performed By: #### L 500.2500, L100.0100 #### [facility] [address] [place], [address] Potassium [Moles/Vol] 3.5 mmol/L Normal 3.5-5.1 [facility] Comment on above: Performed By: #### L 500.2500, L100.0100 #### [facility] [address] [place], [address] Sodium [Moles/Vol] 140 mmol/L Normal 136-145 [facility] Comment on above: Performed By: #### L 500.2500, L100.0100 #### [facility] [address] [place], [address] Urea nitrogen [Mass/Vol] 12 mg/dL Normal 7-18 [facility] Comment on above: Performed By: #### L 500.2500, L100.0100 #### [facility] [address] [place], [address] Serum or plasma albumin susanna urement (mass/volume)Ordered By: Briseida Starks on 08-24-2024 Albumin [Mass/Vol] 4.1 g/dL 3.2-5.0 [facility] Serum or plasma calcium susanna urement (mass/volume)Ordered By: Briseida Starks on 08-24-2024 Calcium [Mass/Vol] 9.5 mg/dL 8.5-10.1 [facility] Serum or plasma creatinine m easurement (mass/volume)Ordered By: Briseida Starks on 08-24-2024 Creatinine [Mass/Vol] 0.92 mg/dL 0.55-1.02 [facility] Comment on above: The validity of the calculated GFR & GFRAA in patients over 70 years has not been determined. Clinical correlation is essential. Serum or plasma urea nitroge n measurement (mass/volume)Ordered By: Briseida Starks on 08-24-2024 Urea nitrogen [Mass/Vol] 12 mg/dL 7-18 [facility] Sodium levelOrdered By: Pooja Starks on 08-24-2024 Sodium [Moles/Vol] 140 mmol/L 136-145 [facility] Absolute lymphocyte countOrd ered By: Yaniv Crawford on 06-12-2024 Lymphocytes Auto (Unsp spec) [#/Vol] 1.57 10*3/uL 0.83-4.51 [facility] Absolute neutrophil countOrd ered By: Yaniv Crawford on 06-12-2024 Neutrophils (Bld) [#/Vol] 4.4 10*3/uL 2.0-7.7 [facility] Alanine aminotransferase (AL T) assayOrdered By: Yaniv Crawford on 06-12-2024 ALT [Catalytic activity/Vol] 40 U/L 13-56 [facility] Albumin to globulin ratioOrd ered By: Yaniv Crawford on 06-12-2024 Albumin/Globulin [Mass ratio] 1.1 {ratio} 0.9-2.4 [facility] Alkaline phosphataseOrdered By: Yaniv Crawford on 06-12-2024 ALP [Catalytic activity/Vol] 151 U/L High 45-117 [facility] Automated lymphocyte count a s percentage of total leukocytesOrdered By: Yaniv Crawford on 06-12-2024 Lymphocytes/100 WBC Auto (Unsp spec) 23.2 % 19-41 [facility] Basophil percentageOrdered B y: Yaniv Crawford on 06-12-2024 Basophils/100 WBC (Bld) 0.7 % 0-1 [facility] Bilirubin, totalOrdered By: Yaniv Crawford on 06-12-2024 Bilirubin [Mass/Vol] 0.40 mg/dL 0.20-1.00 [facility] Comment on above: For patients on eltr ombopag therapy, use of Dimension [place] TBIL is not recommended. Blood urea nitrogen (BUN)/cr eatinine ratioOrdered By: Yaniv Crawford on 06-12-2024 Urea nitrogen/Creatinine [Mass ratio] 13.6 mg/mg 10-20 [facility] Carbon dioxide measurementOr dered By: Yaniv Crawford on 06-12-2024 CO2 [Moles/Vol] 30.0 mmol/L 21.0-32.0 [facility] Chloride measurementOrdered By: Yaniv Crawford on 06-12-2024 Chloride [Moles/Vol] 102 mmol/L 98-107 [facility] Eosinophil percentageOrdered By: Yaniv Crawford on 06-12-2024 Eosinophils/100 WBC (Bld) 5.0 % 0-5 [facility] Erythrocyte distribution wid th ratioOrdered By: Yaniv Crawford on 06-12-2024 Erythrocyte distribution width (RBC) [Ratio] 14.3 % 11.6-14.6 [facility] Erythrocyte distribution wid th standard deviationOrdered By: Yaniv Crawford on 06-12-2024 Erythrocyte distribution width (RBC) [Entitic vol] 42.2 fL 35.1-43.9 [facility] Erythrocyte distribution width (RBC) [Ratio] 42.2 fl 35.1-43.9 [facility] Estimated glomerular filtrat ion rate (GFR) AmericanOrdered By: Yaniv Crawford on 06-12-2024 Estimated GFR (MDRD) Amer 67 mL/min >60 [facility] Comment on above: GFR Calc Estimation of creatinine krista aranceOrdered By: Yaniv Crawford on 06-12-2024 Estimated Creatinine Clearance Calc 58.61 ml/min [facility] Ferritin measurementOrdered By: Yaniv Crawford on 06-12-2024 Ferritin [Mass/Vol] 93 ng/mL 8-252 [facility] Glomerular filtration rate ( GFR) estimationOrdered By: Yaniv Crawford on 06-12-2024 Estimated GFR (MDRD) Non-Af Amer 55 mL/min Low >60 [facility] Comment on above: Non- GFR Calc GFR/1.73 sq M.predicted among non-blacks MDRD (S/P/Bld) [Vol rate/Area] 55 mL/min/{1.73_m2} Low >60 [facility] Comment on above: Non- GFR Calc Glucose measurementOrdered B y: Yaniv Crawford on 06-12-2024 Glucose [Mass/Vol] 109 mg/dL High 74-106 [facility] Comment on above: Fasting Glucose resu lt from 100 to 125 mg/dL suggests IMPAIRED HOMEOSTASIS per A.D.A. criteria. Hematocrit Auto (Bld) [Volum e fraction]Ordered By: Yaniv Crawford on 06-12-2024 Hematocrit (Bld) [Volume fraction] 32.0 % Low 37-47 [facility] Hemoglobin (Reticulocytes) [ Entitic mass]Ordered By: [facility] on 06-12-2024 Reticulocyte Hemoglobin Equivalent 31.4 pg 30-35 [facility] Hemoglobin measurementOrdere d By: Yaniv Crawford on 06-12-2024 Hemoglobin (Bld) [Mass/Vol] 10.9 g/dL Low 12.0-15.0 [facility] Immature granulocytes/100 WB C Auto (Bld)Ordered By: Yaniv Crawford on 06-12-2024 Immature granulocytes/100 WBC (Bld) 0.300 % 0.0-0.9 [facility] Comment on above: IG% - Immature Granu locytes (promyelocytes, myelocytes and metamyelocytes) > 1% indicates that a LEFT SHIFT is Present. Immature reticulocyte fracti onOrdered By: Yaniv Crawford on 06-12-2024 Immature Reticulocyte Fraction 8.70 % 3.00-15.90 [facility] Iron (Unsp spec) [Mass/Mass] Ordered By: Yaniv Crawford on 06-12-2024 Iron [Mass/Vol] 64 ug/dL 50-170 [facility] Iron measurement (mass/mass) Ordered By: Yaniv Crawford on 06-12-2024 Iron (Unsp spec) [Mass/Mass] 64 ug/dL 50-170 [facility] Iron saturation [Mass fracti on]Ordered By: Yaniv Crawford on 06-12-2024 Iron Saturation 21.3 % 15.0-55.0 [facility] - Chemistry and C hemistry - challengeOrdered By: Yaniv Crawford on 06-12-2024 AST [Catalytic activity/Vol] 26 U/L 15-37 [facility] Lactate dehydrogenase (LDH) measurementOrdered By: Yaniv Crawford on 06-12-2024 LDH [Catalytic activity/Vol] 212 U/L 84-246 [facility] Lymphocytes Auto (Unsp spec) [#/Vol]Ordered By: Yaniv Crawford on 06-12-2024 Lymphocytes (Bld) [#/Vol] 1.57 10*3/uL 0.83-4.51 [facility] Lymphocytes/100 WBC Auto (Un sp spec)Ordered By: Yaniv Crawford on 06-12-2024 Lymphocytes/100 WBC (Bld) 23.2 % 19-41 [facility] MCV (mean corpuscular volume ) determinationOrdered By: Yaniv Crawford on 06-12-2024 MCV (RBC) [Entitic vol] 82.5 fL 81-99 [facility] Mean corpuscular hemoglobin (MCH) determinationOrdered By: Yaniv Crawford on 06-12-2024 MCH (RBC) [Entitic mass] 28.1 pg 27.0-32.0 [facility] Mean corpuscular hemoglobin concentration (MCHC) determinationOrdered By: Yaniv Crawford on 06-12-2024 MCHC (RBC) [Mass/Vol] 34.1 g/dL 32-36 [facility] Mean platelet volume determi nationOrdered By: Yaniv Crawford on 06-12-2024 Platelet mean volume (Bld) [Entitic vol] 8.8 fL 6.2-12.0 [facility] Monocyte percentageOrdered B y: Yaniv Crawford on 06-12-2024 Monocytes/100 WBC (Bld) 5.3 % 0-10 [facility] Neutrophil percentageOrdered By: Yaniv Crawford on 06-12-2024 Neutrophils/100 WBC (Bld) 65.5 % 47-70 [facility] Nucleated red blood cell per centageOrdered By: Yaniv Crawford on 06-12-2024 Nucleated RBC/100 WBC (Bld) [Ratio] 0 % 0-5 [facility] Platelet countOrdered By: Shey Crawford on 06-12-2024 Platelets (Bld) [#/Vol] 340 10*3/uL 150-450 [facility] Potassium measurementOrdered By: Yaniv Crawford on 06-12-2024 Potassium [Moles/Vol] 3.7 mmol/L 3.5-5.1 [facility] RBC Auto (Bld) [#/Vol]Ordere d By: Yaniv Crawford on 06-12-2024 RBC (Bld) [#/Vol] 3.88 10*6/uL Low 4.2-5.4 [facility] Reticulocyte hemoglobin equi valent (RET-He) measurementOrdered By: Yaniv Crawford on 06-12-2024 Hemoglobin (Reticulocytes) [Entitic mass] 31.4 pg 30-35 [facility] Reticulocytes Auto (Bld) [#/ Vol]Ordered By: Yaniv Crawford on 06-12-2024 Reticulocyte Count 2.06 % High 0.5-1.5 [facility] Reticulocytes/100 RBC (Bld) 2.06 % High 0.5-1.5 [facility] Serum albumin measurementOrd ered By: Yaniv Crawford on 06-12-2024 Albumin [Mass/Vol] 4.1 g/dL 3.2-5.0 [facility] Serum anion gap measurementO rdered By: Yaniv Crawford on 06-12-2024 Anion gap [Moles/Vol] 6 mmol/L 5-15 [facility] Serum globulin measurementOr dered By: Yaniv Crawford on 06-12-2024 Globulin (S) [Mass/Vol] 3.9 g/dL 2.2-4.2 [facility] Serum or plasma calcium susanna urement (mass/volume)Ordered By: Yaniv Crawford on 06-12-2024 Calcium [Mass/Vol] 9.6 mg/dL 8.5-10.1 [facility] Serum or plasma creatinine m easurement (mass/volume)Ordered By: Yaniv Crawford on 06-12-2024 Creatinine [Mass/Vol] 1.10 mg/dL High 0.55-1.02 [facility] Comment on above: The validity of the calculated GFR & GFRAA in patients over 70 years has not been determined. Clinical correlation is essential. Serum or plasma iron saturat ion measurement (mass fraction)Ordered By: Yaniv Crawford on 06-12-2024 Iron saturation [Mass fraction] 21.3 % 15.0-55.0 [facility] Serum or plasma urea nitroge n measurement (mass/volume)Ordered By: Yaniv Crawford on 06-12-2024 Urea nitrogen [Mass/Vol] 15 mg/dL 7-18 [facility] Sodium levelOrdered By: Brant Crawford on 06-12-2024 Sodium [Moles/Vol] 138 mmol/L 136-145 [facility] TIBCOrdered By: Yaniv joseph on 06-12-2024 Total Iron Binding Capacity 301 ug/dL 250-450 [facility] Total proteinOrdered By: Flaco Crawford on 06-12-2024 Protein [Mass/Vol] 8.0 g/dL 6.4-8.2 [facility] White blood cell (WBC) count Ordered By: Yaniv Crawford on 06-12-2024 WBC (Bld) [#/Vol] 6.8 10*3/uL 4.4-11.0 [facility] .Auto Diffon 02-04-2024 Basophil, Absolute 0.1 10 3/mcL Normal 0.0-0.2 [facility] ([place]) Comment on above: Performed By: #### G FR, CBC, ADKYUNG, JOSE, MDW, ESR, BMP, CRP #### [place] [address] [address] Basophils/100 WBC (Bld) 0.9 % Normal 0.0-2.5 [facility] ([place]) Comment on above: Performed By: #### G FR, CBC, ADIFF, ANEU, MDW, ESR, BMP, CRP #### [address] [address] Eosinophil, Absolute 0.2 10 3/mcL Normal 0.0-0.4 [facility] ([place]) Comment on above: Performed By: #### G FR, CBC, ADIFF, ANEU, MDW, ESR, BMP, CRP #### [address] [address] Eosinophils/100 WBC (Bld) 2.1 % Normal 0.0-7.0 [facility] ([place]) Comment on above: Performed By: #### G FR, CBC, ADIFF, ANEU, MDW, ESR, BMP, CRP #### [address] [address] Lymphocyte, Absolute 1.2 10 3/mcL Normal 0.8-3.9 [facility] ([place]) Comment on above: Performed By: #### G FR, CBC, ADIFF, ANEU, MDW, ESR, BMP, CRP #### [address] [address] Lymphocytes/100 WBC (Bld) 13.3 % Normal 10.0-50.0 [facility] ([place]) Comment on above: Performed By: #### G FR, CBC, ADIFF, ANEU, MDW, ESR, BMP, CRP #### [address] [address] Monocyte, Absolute 0.4 10 3/mcL Normal 0.2-1.0 [facility] ([place]) Comment on above: Performed By: #### G FR, CBC, ADIFF, ANEU, MDW, ESR, BMP, CRP #### [address] [address] Monocytes/100 WBC (Bld) 4.6 % Normal 1.7-13.0 [facility] ([place]) Comment on above: Performed By: #### G FR, CBC, ADIFF, ANEU, MDW, ESR, BMP, CRP #### [address] [address] Neutrophils/100 WBC (Bld) 79.1 % Normal 37.0-80.0 [facility] ([place]) Comment on above: Performed By: #### G FR, CBCITZEL ANEU, MDW, ESR, BMP, CRP #### [facility] [address] [address] .GFRon 02-04-2024 GFR 53 ml/min/1.73sqm Normal [facility] ([place]) Comment on above: Result Comment: GFR Population [...] square meters Performed By: #### G FR, ITZEL ARELLANO ANEU, MDW, ESR, BMP, CRP #### [facility] [address] [address] GFR Non- 44 ml/min/1.73sqm Normal [facility] ([place]) Comment on above: Result Comment: GFR Population [...] meters Performed By: #### G FR, CBC, JOSE ROBBINS MDW, ESR, BMP, CRP #### [address] [address] .MDWon 02-04-2024 Monocyte Distribution Width 16.72 Normal 0.00-20.00 [facility] ([place]) Comment on above: Result Comment: For ED adult patients suspected of sepsis, MDW<=20.0 does not rule out sepsis or risk of sepsis Performed By: #### G FR, CBC, ADIFF, ANEU, MDW, ESR, BMP, CRP #### [address] [address] .NEUABSon 02-04-2024 Neutrophil, Absolute 7.0 10 3/mcL High 2.9-6.2 [facility] ([place]) Comment on above: Performed By: #### G FR, CBC, ADIFF, ANEU, MDW, ESR, BMP, CRP #### [address] [address] BMPon 02-04-2024 BUN/Creatinine Ratio 12 ratio Normal 7-27 [facility] ([place]) Comment on above: Performed By: #### G FR, CBC, ADIFF, ANEU, MDW, ESR, BMP, CRP #### [address] [address] Calcium [Mass/Vol] 9.1 mg/dL Normal 8.4-10.2 [facility] ([place]) Comment on above: Performed By: #### G FR, CBC, ADIFF, ANEU, MDW, ESR, BMP, CRP #### [address] [address] Chloride [Moles/Vol] 103 mmol/L Normal 98-107 [facility] ([place]) Comment on above: Performed By: #### G FR, CBC, ADIFF, ANEU, MDW, ESR, BMP, CRP #### [address] [address] CO2 [Moles/Vol] 32 mmol/L High 22-29 [facility] ([place]) Comment on above: Performed By: #### G FR, CBC, ADIFF, ANEU, MDW, ESR, BMP, CRP #### [address] [address] Creatinine [Mass/Vol] 1.28 mg/dL High 0.55-1.02 [facility] ([place]) Comment on above: Performed By: #### G FR, CBC, ADIFF, ANEU, MDW, ESR, BMP, CRP #### [address] [address] Electrolyte Balance 9.0 mEq/L Normal 4.0-15.0 [facility] ([place]) Comment on above: Performed By: #### G FR, CBC, ADIFF, ANEU, MDW, ESR, BMP, CRP #### [address] [address] Glucose [Mass/Vol] 114 mg/dL High 70-105 [facility] ([place] Comment on above: Performed By: #### G FR, CBC, ADIFF, ANEU, MDW, ESR, BMP, CRP #### [address] [address] Potassium [Moles/Vol] 3.8 mmol/L Normal 3.5-5.1 [facility] ([place]) Comment on above: Performed By: #### G FR, CBC, ADIFF, ANEU, MDW, ESR, BMP, CRP #### [address] [address] Sodium [Moles/Vol] 144 mmol/L Normal 136-145 [facility] ([place]) Comment on above: Performed By: #### G FR, CBC, ADIFF, ANEU, MDW, ESR, BMP, CRP #### [address] [address] Urea nitrogen [Mass/Vol] 16 mg/dL Normal 7-18 [facility] ([place]) Comment on above: Performed By: #### G FR, CBC, ADIFF, ANEU, MDW, ESR, BMP, CRP #### [address] [address] CBCon 02-04-2024 Erythrocyte distribution width (RBC) [Ratio] 15.6 % High 11.5-14.5 [facility] ([place]) Comment on above: Performed By: #### G FR, CBC, ADIFF, ANEU, MDW, ESR, BMP, CRP #### [address] [address] Hematocrit (Bld) [Volume fraction] 31.8 % Low 37.0-47.0 [facility] ([place]) Comment on above: Performed By: #### G FR, CBC, ADIFF, ANEU, MDW, ESR, BMP, CRP #### [address] [address] Hgb 11.5 G/dL Low 12.0-16.0 [facility] ([place]) Comment on above: Performed By: #### G FR, CBC, ADIFF, ANEU, MDW, ESR, BMP, CRP #### [address] [address] MCH (RBC) [Entitic mass] 28.9 pg Normal 27.0-31.2 [facility] ([place]) Comment on above: Performed By: #### G FR, CBC, ADIFF, ANEU, MDW, ESR, BMP, CRP #### [place] [id number] MCHC 36.1 G/dL Normal 33.0-37.0 [facility] ([place]) Comment on above: Performed By: #### G FR, CBC, ADIFF, ANEU, MDW, ESR, BMP, CRP #### [address] [address] MCV (RBC) [Entitic vol] 80.1 fL Normal 80.0-94.0 [facility] ([place]) Comment on above: Performed By: #### G FR, CBC, ADIFF, ANEU, MDW, ESR, BMP, CRP #### [address] [address] Platelet 323 10 3/mcL Normal 130-400 [facility] ([place]) Comment on above: Performed By: #### G FR, CBC, ADIFF, ANEU, MDW, ESR, BMP, CRP #### [address] [address] Platelet mean volume (Bld) [Entitic vol] 7.2 fL Low 7.4-10.4 [facility] ([place]) Comment on above: Performed By: #### G FR, CBC, ADIFF, ANEU, MDW, ESR, BMP, CRP #### [address] [address] RBC 3.98 10 6/mcL Low 4.20-5.40 [facility] ([place]) Comment on above: Performed By: #### G FR, CBC, ADIFF, ANEU, MDW, ESR, BMP, CRP #### [address] [address] WBC 8.8 10 3/mcL Normal 4.6-10.8 [facility] ([place]) Comment on above: Performed By: #### G FR, CBC, ADIFF, ANEU, MDW, ESR, BMP, CRP #### [address] [address] CRPon 02-04-2024 C-Reactive Protein 0.8 mg/dL High 0.0-0.3 [facility] ([place]) Comment on above: Performed By: #### G FR, CBC, ADIFF, ANEU, MDW, ESR, BMP, CRP #### [address] [address] [address] FOREARM W/ CONTRAST RIGHT on 02-04-2024 [...] 02/04/2024 7:49:04 AM Ordering Provider: ELIANE Sheridan [facility] ([place]) ESRon 02-04-2024 Erythrocyte Sed Rate 30 mm/hr Normal 0-30 [facility] ([place]) Comment on above: Performed By: #### G FR, CBC, ADIFF, ANEU, MDW, ESR, BMP, CRP #### [facility] [address] [place], [place] [address] LABORATORYOrdered By: SYSTEM SYSTEM on 02-04-2024 Basophil, [...] Man Heme SS No Panel InformationOrdered By: Trevor Lanier on 01-25-2024 Free Triiodothyronine (T3) pg/dL 2.0 pg/mL 2.18-3.98 [facility] Serum or plasma thyroid stim ulating hormone (TSH) measurement (units/volume)Ordered By: Trevor Lanier on 01-25-2024 TSH Qn 1.33 uIU/mL 0.358-3.74 [facility] Serum or plasma thyroxine (T 4) measurement (mass/volume)Ordered By: Trevor Lanier on 01-25-2024 T4 [Mass/Vol] 9.4 ug/dL 4.8-13.9 [facility] Absolute lymphocyte countOrd ered By: Yaniv Crawford on 12-06-2023 Lymphocytes Auto (Unsp spec) [#/Vol] 1.55 10*3/uL 0.83-4.51 [facility] Automated lymphocyte count a s percentage of total leukocytesOrdered By: Yaniv Crawford on 12-06-2023 Lymphocytes/100 WBC Auto (Unsp spec) 22.4 % 19-41 [facility] Basophil percentageOrdered B y: Yaniv Crawford on 12-06-2023 Creatinine [Mass/Vol] 1.1 mg/dL 0.55-1.02 [facility] Basophils/100 WBC (Bld) 0.7 % 0-1 [facility] Bilirubin [Mass/Vol] 0.30 mg/dL 0.20-1.00 [facility] Comment on above: For patients on eltr ombopag therapy, use of Dimension [place] TBIL is not recommended. Chloride [Moles/Vol] 109 mmol/L 98-107 [facility] Eosinophils/100 WBC (Bld) 5.1 % 0-5 [facility] Glucose [Mass/Vol] 98 mg/dL 74-106 [facility] Hemoglobin (Bld) [Mass/Vol] 10.8 g/dL 12.0-15.0 [facility] LDH [Catalytic activity/Vol] 216 U/L 84-246 [facility] Monocytes/100 WBC (Bld) 6.5 % 0-10 [facility] Neutrophils (Bld) [#/Vol] 4.5 10*3/uL 2.0-7.7 [facility] Neutrophils/100 WBC (Bld) 64.9 % 47-70 [facility] Potassium [Moles/Vol] 3.4 mmol/L 3.5-5.1 [facility] Protein [Mass/Vol] 7.7 g/dL 6.4-8.2 [facility] Sodium [Moles/Vol] 141 mmol/L 136-145 [facility] WBC (Bld) [#/Vol] 6.9 10*3/uL 4.4-11.0 [facility] Determination of erythrocyte mean corpuscular volume (MCV)Ordered By: Yaniv Crawford on 12-06-2023 MCV (RBC) [Entitic vol] 80.9 fL 81-99 [facility] Erythrocyte distribution wid th ratioOrdered By: Yaniv Crawford on 12-06-2023 Erythrocyte distribution width (RBC) [Ratio] 15.4 % 11.6-14.6 [facility] Erythrocyte distribution wid th standard deviationOrdered By: [facility] on 12-06-2023 Erythrocyte distribution width (RBC) [Entitic vol] 44.4 fL 35.1-43.9 [facility] Hematocrit Auto (Bld) [Volum e fraction]Ordered By: [facility] Ty on 12-06-2023 Hematocrit (Bld) [Volume fraction] 33.0 % 37-47 [facility] Immature granulocytes/100 WB C Auto (Bld)Ordered By: [facility] Ty on 12-06-2023 Immature granulocytes/100 WBC (Bld) 0.400 % 0.0-0.9 [facility] Comment on above: IG% - Immature Granu locytes (promyelocytes, myelocytes and metamyelocytes) > 1% indicates that a LEFT SHIFT is Present. Laboratory - Chemistry and C hemistry - challengeOrdered By: [facility] Ty on 12-06-2023 GFR/1.73 sq M.predicted among non-blacks MDRD (S/P/Bld) [Vol rate/Area] 57.0000 mL/min/{1.73_m2} >60 [facility] Albumin/Globulin [Mass ratio] 1.0 {ratio} 0.9-2.4 [facility] ALP [Catalytic activity/Vol] 135 U/L 45-117 [facility] ALT [Catalytic activity/Vol] 30 U/L 13-56 [facility] CO2 [Moles/Vol] 28.0 mmol/L 21.0-32.0 [facility] Ferritin [Mass/Vol] 101 ng/mL 8-252 [facility] Globulin (S) [Mass/Vol] 3.8 g/dL 2.2-4.2 [facility] Urea nitrogen/Creatinine [Mass ratio] 13.2 mg/mg 10-20 [facility] Laboratory - Hematology and Cell countsOrdered By: [facility] on 12-06-2023 MCH (RBC) [Entitic mass] 26.5 pg 27.0-32.0 [facility] MCHC (RBC) [Mass/Vol] 32.7 g/dL 32-36 [facility] Nucleated RBC/100 WBC (Bld) [Ratio] 0 % 0-5 [facility] Platelet mean volume (Bld) [Entitic vol] 9.8 fL 6.2-12.0 [facility] Platelets (Bld) [#/Vol] 339 10*3/uL 150-450 [facility] No Panel InformationOrdered By: Yaniv Crawford on 12-06-2023 Estimated GFR (MDRD) Amer 64 mL/min >60 [facility] Comment on above: GFR Calc Estimated GFR (MDRD) Non-Af Amer 53 mL/min >60 [facility] Comment on above: Non- GFR Calc RBC Auto (Bld) [#/Vol]Ordere d By: Yaniv Crawford on 12-06-2023 RBC (Bld) [#/Vol] 4.08 10*6/uL 4.2-5.4 [facility] Serum or plasma calcium susanna urement (mass/volume)Ordered By: Yaniv Crwaford on 12-06-2023 Calcium [Mass/Vol] 9.3 mg/dL 8.5-10.1 [facility] Serum or plasma creatinine m easurement (mass/volume)Ordered By: Yaniv Crawford on 12-06-2023 Creatinine [Mass/Vol] 1.14 mg/dL 0.55-1.02 [facility] Comment on above: The validity of the calculated GFR & GFRAA in patients over 70 years has not been determined. Clinical correlation is essential. Serum or plasma urea nitroge n measurement (mass/volume)Ordered By: Yaniv Crawford on 12-06-2023 Urea nitrogen [Mass/Vol] 15 mg/dL 7-18 [facility] Thin prep Papanicolaou smear with manual screeningOrdered By: Yaniv Crawford on 12-06-2023 Thin prep Papanicolaou smear with manual screening 3.9 g/dL 3.2-5.0 [facility] Thin prep Papanicolaou smear with manual screening 19 U/L 15-37 [facility] Thin prep Papanicolaou smear with manual screening 4 5-15 [facility] Cervical or vagninal specime n microscopic examination by cytology stain (reported asOrdered By: Tracey Herman on 07-18-2023 Cytology report Cyto stain Doc (Cvx/Vag) Comment . [facility] Comment on above: The Pap smear [...] DNA Probe+sig amp Ql (Cvx) Negative Negative [facility] Comment on above: This nucleic acid am plification test detects fourteen high-risk HPV types (16,18,31,33,35,39,45,51,52,56,58,59,66,68)without differentiation. Laboratory - CytologyOrdered By: Tracey Herman on 07-18-2023 Movable Bulkhead Installer Cyto stain Nom (Cvx/Vag) [ID] Comment . [facility] Comment on above: Ketty cruz, Bodybuilder (ASCP) Laboratory - Miscellaneous t estsOrdered By: Tracey Herman on 07-18-2023 Service comment (Unsp spec) [Interp] Comment . [facility] Comment on above: This liquid based Th inPrep(R) pap test was screened withthe use of an image guided system. Service comment (Unsp spec) [Interp] . . [facility] Liquid-based cerv Pap + CT/G C by GIANCARLO w reflex to high-risk HPV for ASCUSOrdered By: Tracey Herman on 07-18-2023 Cytology report Cyto stain.thin prep Doc (Cvx/Vag) Comment . [facility] Comment on above: Criteria not met, HP V Genotype not performed.Performed at: - [address], [place] [id number] Director: Em Tavarez MD, Phone: [phone] at: =[address] [id number] Director: Em Tavarez MD, Phone: [phone] No Panel InformationOrdered By: Tracey Herman on 07-18-2023 Pathology report final diagnosis Narrative Comment . [facility] Comment on above: NEGATIVE FOR INTRAEP ITHELIAL LESION OR MALIGNANCY. Absolute lymphocyte countOrd ered By: Rodo Sanford on 06-03-2023 Lymphocytes Auto (Unsp spec) [#/Vol] 1.56 10*3/uL 0.83-4.51 [facility] Basophil percentageOrdered B y: Rodo Sanford on 06-03-2023 Basophils/100 WBC (Bld) 0.5 % 0-1 [facility] Eosinophils/100 WBC (Bld) 3.0 % 0-5 [facility] Neutrophils (Bld) [#/Vol] 5.8 10*3/uL 2.0-7.7 [facility] Neutrophils/100 WBC (Bld) 71.9 % 47-70 [facility] WBC (Bld) [#/Vol] 8.0 10*3/uL 4.4-11.0 [facility] Blood erythrocytes count (nu mber/volume)Ordered By: Rodo Sanford on 06-03-2023 RBC (Bld) [#/Vol] 3.80 10*6/uL 4.2-5.4 [facility] Blood hemoglobin measurement (mass/volume)Ordered By: Rodo Sanford on 06-03-2023 Hemoglobin (Bld) [Mass/Vol] 10.9 g/dL 12.0-15.0 [facility] Blood lymphocytes/100 leukoc ytesOrdered By: Rodo Sanford on 06-03-2023 Lymphocytes/100 WBC (Bld) 19.5 % 19-41 [facility] Blood monocytes/100 leukocyt esOrdered By: Rodo Sanford on 06-03-2023 Monocytes/100 WBC (Bld) 4.3 % 0-10 [facility] Blood platelet mean volumeOr dered By: Rodo Sanford on 06-03-2023 Platelet mean volume (Bld) [Entitic vol] 8.7 fL 6.2-12.0 [facility] Determination of erythrocyte mean corpuscular volume (MCV)Ordered By: Rodo Sanford on 06-03-2023 MCV (RBC) [Entitic vol] 82.9 fL 81-99 [facility] Hematocrit Auto (Bld) [Volum e fraction]Ordered By: Rodo Sanford on 06-03-2023 Hematocrit (Bld) [Volume fraction] 31.5 % 37-47 [facility] INR in Blood by Coagulation assayOrdered By: Rodo Sanford on 06-03-2023 INR Coag (Bld) [Relative time] 1.1 {INR} [facility] Laboratory - CoagulationOrde red By: Rodo Sanford on 06-03-2023 aPTT Coag (Bld) [Time] 38.8 s 24.1-36.2 [facility] PT Coag (PPP) [Time] 13.8 s 11.7-14.9 [facility] Laboratory - Hematology and Cell countsOrdered By: Rodo Sanford on 06-03-2023 Erythrocyte distribution width (RBC) [Entitic vol] 45.0 fL 35.1-43.9 [facility] Erythrocyte distribution width (RBC) [Ratio] 15.0 % 11.6-14.6 [facility] Immature granulocytes/100 WBC (Bld) 0.800 % 0.0-0.9 [facility] Comment on above: IG% - Immature Granu locytes (promyelocytes, myelocytes and metamyelocytes) > 1% indicates that a LEFT SHIFT is Present. MCH (RBC) [Entitic mass] 28.7 pg 27.0-32.0 [facility] Nucleated RBC/100 WBC (Bld) [Ratio] 0 % 0-5 [facility] MCHC Auto (RBC) [Mass/Vol]Or dered By: Rodo Sanford on 06-03-2023 MCHC (RBC) [Mass/Vol] 34.6 g/dL 32-36 [facility] Platelets bldOrdered By: Celestino Sanford on 06-03-2023 Platelets (Bld) [#/Vol] 281 10*3/uL 150-450 [facility] Absolute lymphocyte countOrd ered By: Yaniv Crawford on 05-16-2023 Lymphocytes Auto (Unsp spec) [#/Vol] 1.84 10*3/uL 0.83-4.51 [facility] Addendum DocumentOrdered By: Yaniv Ty on 05-16-2023 Serum Immunofixation Comments Comment . [facility] Comment on above: Protein electrophore sis scan will follow via computer,mail, or cloth bin packer delivery.Performed at: [address] [id number] Director: Chance Waters PhD, Phone: [phone] Albumin Elph [Mass/Vol]Order ed By: Brantwayne Crawford on 05-16-2023 Albumin [Mass/Vol] 4.2 g/dL 2.9-4.4 [facility] Alpha 1 globulin Elph [Mass/ Vol]Ordered By: [facility] on 05-16-2023 Potxb-5-Pxawvzsip (STEFANIA) 0.2 g/dL 0.0-0.4 [facility] Pdovz-3-Gxuwfbihn (STEFANIA) 0.6 g/dL 0.4-1.0 [facility] Basophil percentageOrdered B y: Brantwayne Crawford on 05-16-2023 Basophils/100 WBC (Bld) 0.5 % 0-1 [facility] Bilirubin [Mass/Vol] 0.30 mg/dL 0.20-1.00 [facility] Comment on above: For patients on eltr ombopag therapy, use of Dimension [place] TBIL is not recommended. Chloride [Moles/Vol] 102 mmol/L 98-107 [facility] Eosinophils/100 WBC (Bld) 2.1 % 0-5 [facility] Glucose [Mass/Vol] 90 mg/dL 74-106 [facility] LDH [Catalytic activity/Vol] 199 U/L 84-246 [facility] Neutrophils (Bld) [#/Vol] 6.6 10*3/uL 2.0-7.7 [facility] Neutrophils/100 WBC (Bld) 71.6 % 47-70 [facility] Potassium [Moles/Vol] 3.2 mmol/L 3.5-5.1 [facility] Protein [Mass/Vol] 7.6 g/dL 6.4-8.2 [facility] Sodium [Moles/Vol] 138 mmol/L 136-145 [facility] WBC (Bld) [#/Vol] 9.3 10*3/uL 4.4-11.0 [facility] Beta globulin Elph [Mass/Vol ]Ordered By: Yaniv Crawford on 05-16-2023 Beta-Globulins (STEFANIA) 1.0 g/dL 0.7-1.3 [facility] Blood erythrocytes count (nu mber/volume)Ordered By: Yaniv Crawford on 05-16-2023 RBC (Bld) [#/Vol] 3.89 10*6/uL 4.2-5.4 [facility] Blood hemoglobin measurement (mass/volume)Ordered By: Yaniv Crawford on 05-16-2023 Hemoglobin (Bld) [Mass/Vol] 10.6 g/dL 12.0-15.0 [facility] Blood lymphocytes/100 leukoc ytesOrdered By: Yaniv Crawford on 05-16-2023 Lymphocytes/100 WBC (Bld) 19.9 % 19-41 [facility] Blood monocytes/100 leukocyt esOrdered By: Yaniv Crawford on 05-16-2023 Monocytes/100 WBC (Bld) 4.5 % 0-10 [facility] Blood platelet mean volumeOr dered By: Yaniv Crawford on 05-16-2023 Platelet mean volume (Bld) [Entitic vol] 8.9 fL 6.2-12.0 [facility] Determination of erythrocyte mean corpuscular volume (MCV)Ordered By: Yaniv Crawford on 05-16-2023 MCV (RBC) [Entitic vol] 83.8 fL 81-99 [facility] Erythrocyte sedimentation ra teOrdered By: Yaniv Crawford on 05-16-2023 ESR (Bld) [Velocity] 24 mm/h 0-30 [facility] Folate [Mass/Vol]Ordered By: Yaniv Crawford on 05-16-2023 Folate 10.70 ng/mL 3.1-55.4 [facility] Gamma globulin Elph [Mass/Vo l]Ordered By: Yaniv Crawford on 05-16-2023 Gamma Globulins (STEFANIA) 1.1 g/dL 0.4-1.8 [facility] [employer] mix RAST testO rdered By: Yaniv Crawford on 05-16-2023 Albumin/Globulin (STEFANIA) 1.5 0.7-1.7 [facility] Hematocrit Auto (Bld) [Volum e fraction]Ordered By: Yaniv Crawford on 05-16-2023 Hematocrit (Bld) [Volume fraction] 32.6 % 37-47 [facility] INR in Blood by Coagulation assayOrdered By: Yaniv Crawford on 05-16-2023 INR Coag (Bld) [Relative time] 1.0 {INR} [facility] IgA [Mass/Vol]Ordered By: Shey Crawford on 05-16-2023 Immunoglobulin A 181 mg/dL 87-352 [facility] IgG [Mass/Vol]Ordered By: Shey Crawford on 05-16-2023 Immunoglobulin G 769 mg/dL [phone] [facility] IgM [Mass/Vol]Ordered By: Shey Crawford on 05-16-2023 Immunoglobulin M 692 mg/dL High 26-217 [facility] Comment on above: Results confirmed on dilution. Interpretation IEP [Interp]O rdered By: Yaniv Crawford on 05-16-2023 Immunofixation Screen Comment . [facility] Comment on above: No monoclonality det ected. Interpretation of serum or p lasma protein pattern by immunofixation (narrative resultOrdered By: Yaniv Crawford on 05-16-2023 Protein Fractions Immunofixation Mike [Interp] See comment [facility] Comment on above: NOT OBSERVED Iron measurement (mass/mass) Ordered By: Yaniv Crawford on 05-16-2023 Iron (Unsp spec) [Mass/Mass] 59 ug/dL 50-170 [facility] Laboratory - Chemistry and C hemistry - challengeOrdered By: Yaniv Crawford on 05-16-2023 ALP [Catalytic activity/Vol] 157 U/L 45-117 [facility] ALT [Catalytic activity/Vol] 42 U/L 13-56 [facility] CO2 [Moles/Vol] 30.0 mmol/L 21.0-32.0 [facility] Cobalamin (Vitamin B12) [Mass/Vol] 472 pg/mL 211-911 [facility] Urea nitrogen/Creatinine [Mass ratio] 12.5 mg/mg 10-20 [facility] Laboratory - CoagulationOrde red By: Yaniv Crawford on 05-16-2023 aPTT Coag (Bld) [Time] 42.5 s High 24.1-36.2 [facility] PT Coag (PPP) [Time] 13.2 s 11.7-14.9 [facility] Laboratory - Hematology and Cell countsOrdered By: Yaniv Crawford on 05-16-2023 Erythrocyte distribution width (RBC) [Entitic vol] 45.3 fL 35.1-43.9 [facility] Erythrocyte distribution width (RBC) [Ratio] 15.1 % 11.6-14.6 [facility] Immature granulocytes/100 WBC (Bld) 1.400 % 0.0-0.9 [facility] Comment on above: IG% - Immature Granu locytes (promyelocytes, myelocytes and metamyelocytes) > 1% indicates that a LEFT SHIFT is Present. MCH (RBC) [Entitic mass] 27.2 pg 27.0-32.0 [facility] Nucleated RBC/100 WBC (Bld) [Ratio] 0 % 0-5 [facility] MCHC Auto (RBC) [Mass/Vol]Or dered By: Yaniv Crawford on 05-16-2023 MCHC (RBC) [Mass/Vol] 32.5 g/dL 32-36 [facility] No Panel InformationOrdered By: Yaniv Crawford on 05-16-2023 Addendum Document Comment . [facility] Comment on above: Protein electrophore sis scan will follow via computer,mail, or cloth bin packer delivery.Performed at: [facility] [id number] Director: Chance Waters PhD, Phone: [phone] Estimated GFR (MDRD) Amer 87 mL/min >60 [facility] Comment on above: GFR Calc Estimated GFR (MDRD) Non-Af Amer 72 mL/min >60 [facility] Comment on above: Non- GFR Calc Total Iron Binding Capacity 277 ug/dL 250-450 [facility] Platelets bldOrdered By: Flaco alvares Ty on 05-16-2023 Platelets (Bld) [#/Vol] 295 10*3/uL 150-450 [facility] Protein Fractions Immunofixa tion Mike [Interp]Ordered By: Yaniv Crawford on 05-16-2023 M-Elian (STEFANIA) See comment [facility] Comment on above: NOT OBSERVED Serum [id number] measu rement by electrophoresisOrdered By: Yaniv Crawford on 05-16-2023 Alpha 1 globulin Elph [Mass/Vol] 0.2 g/dL 0.0-0.4 [facility] Alpha 1 globulin Elph [Mass/Vol] 0.6 g/dL 0.4-1.0 [facility] Serum globulin measurement ( mass/volume)Ordered By: Yaniv Crawford on 05-16-2023 Globulin (S) [Mass/Vol] 3.0 g/dL 2.2-3.9 [facility] Serum or plasma IgA measurem ent (mass/volume)Ordered By: Yaniv Crawford on 05-16-2023 IgA [Mass/Vol] 181 mg/dL 87-352 [facility] Serum or plasma IgG measurem ent (mass/volume)Ordered By: Yaniv Crawford on 05-16-2023 IgG [Mass/Vol] 769 mg/dL 586-1602 [facility] Serum or plasma IgM measurem ent (mass/volume)Ordered By: Yaniv Crawford on 05-16-2023 IgM [Mass/Vol] 692 mg/dL High 26-217 [facility] Comment on above: Results confirmed on dilution. Serum or plasma albumin susanna urement (mass/volume)Ordered By: Yaniv Crawford on 05-16-2023 Albumin [Mass/Vol] 3.7 g/dL 3.2-5.0 [facility] Serum or plasma albumin/glob ulin mass ratioOrdered By: Yaniv Crawford on 05-16-2023 Albumin/Globulin [Mass ratio] 0.9 {ratio} 0.9-2.4 [facility] Serum or plasma beta globuli n measurement by electrophoresis (mass/volume)Ordered By: Yaniv Crawford on 05-16-2023 Beta globulin Elph [Mass/Vol] 1.0 g/dL 0.7-1.3 [facility] Serum or plasma calcium susanna urement (mass/volume)Ordered By: Yaniv Crawford on 05-16-2023 Calcium [Mass/Vol] 9.0 mg/dL 8.5-10.1 [facility] Serum or plasma creatinine m easurement (mass/volume)Ordered By: Yaniv Crawford on 05-16-2023 Creatinine [Mass/Vol] 0.88 mg/dL 0.55-1.02 [facility] Comment on above: The validity of the calculated GFR & GFRAA in patients over 70 years has not been determined. Clinical correlation is essential. Serum or plasma ferritin leonardo surement (mass/volume)Ordered By: Yaniv Crawford on 05-16-2023 Ferritin [Mass/Vol] 65 ng/mL 8-252 [facility] Serum or plasma folate measu rement (mass/volume)Ordered By: Yaniv Crawford on 05-16-2023 Folate [Mass/Vol] 10.70 ng/mL 3.1-55.4 [facility] Serum or plasma gamma globul in measurement by electrophoresis (mass/volume)Ordered By: Yaniv Crawford on 05-16-2023 Gamma globulin Elph [Mass/Vol] 1.1 g/dL 0.4-1.8 [facility] Serum or plasma immunoelectr ophoresis interpretation (nominal result)Ordered By: Yaniv Crawford on 05-16-2023 Interpretation IEP [Interp] Comment . [facility] [facility] Comment on above: No monoclonality det ected. Serum or plasma iron saturat ion measurement (mass fraction)Ordered By: Yaniv Crawford on 05-16-2023 Iron saturation [Mass fraction] 21.3 % 15.0-55.0 [facility] Serum or plasma urea nitroge n measurement (mass/volume)Ordered By: Yaniv Crawford on 05-16-2023 Urea nitrogen [Mass/Vol] 11 mg/dL 7-18 [facility] Thin prep Papanicolaou smear with manual screeningOrdered By: Yaniv Crawford on 05-16-2023 Thin prep Papanicolaou smear with manual screening 29 U/L 15-37 [facility] Thin prep Papanicolaou smear with manual screening 6 5-15 [facility] Thin prep Papanicolaou smear with manual screening 1.5 0.7-1.7 [facility] Total protein bloodOrdered B y: Yaniv Crawford on 05-16-2023 Protein [Mass/Vol] 7.2 g/dL 6.0-8.5 [facility] Basophil percentageOrdered B y: Mati Augustine on 04-18-2023 Creatinine [Mass/Vol] 1.0 mg/dL 0.55-1.02 [facility] No Panel InformationOrdered By: Mati Augustine on 04-18-2023 Bedside Estimated GFR (eGFR) > 60.0000 mL/min >60 [facility] Laboratory - Chemistry and C hemistry - challengeOrdered By: Dr. Augustine on 03-22-2023 Amylase [Catalytic activity/Vol] 76 U/L 5-55 [facility] Absolute lymphocyte countOrd ered By: Dr. Augustine on 02-10-2023 Lymphocytes Auto (Unsp spec) [#/Vol] 1.76 10*3/uL 0.83-4.51 [facility] Basophil percentageOrdered B y: Dr. Augustine on 02-10-2023 Basophils/100 WBC (Bld) 0.8 % 0-1 [facility] Bilirubin [Mass/Vol] 0.30 mg/dL 0.20-1.00 [facility] Comment on above: For patients on eltr ombopag therapy, use of Dimension [place] TBIL is not recommended. Chloride [Moles/Vol] 105 mmol/L 98-107 [facility] Eosinophils/100 WBC (Bld) 3.1 % 0-5 [facility] Glucose [Mass/Vol] 103 mg/dL 74-106 [facility] Comment on above: Fasting Glucose resu lt from 100 to 125 mg/dL suggests IMPAIRED HOMEOSTASIS per A.D.A. criteria. Neutrophils (Bld) [#/Vol] 4.7 10*3/uL 2.0-7.7 [facility] Neutrophils/100 WBC (Bld) 65.6 % 47-70 [facility] Potassium [Moles/Vol] 4.0 mmol/L 3.5-5.1 [facility] Protein [Mass/Vol] 8.1 g/dL 6.4-8.2 [facility] Sodium [Moles/Vol] 140 mmol/L 136-145 [facility] WBC (Bld) [#/Vol] 7.2 10*3/uL 4.4-11.0 [facility] Blood erythrocytes count (nu mber/volume)Ordered By: Dr. Augustine on 02-10-2023 RBC (Bld) [#/Vol] 4.02 10*6/uL 4.2-5.4 [facility] Blood hemoglobin measurement (mass/volume)Ordered By: Dr. Augustine on 02-10-2023 Hemoglobin (Bld) [Mass/Vol] 11.0 g/dL 12.0-15.0 [facility] Blood lymphocytes/100 leukoc ytesOrdered By: Dr. Augustine on 02-10-2023 Lymphocytes/100 WBC (Bld) 24.4 % 19-41 [facility] Blood monocytes/100 leukocyt esOrdered By: Dr. Augustine on 02-10-2023 Monocytes/100 WBC (Bld) 5.4 % 0-10 [facility] Blood platelet mean volumeOr dered By: Dr. Augustine on 02-10-2023 Platelet mean volume (Bld) [Entitic vol] 9.9 fL 6.2-12.0 [facility] Determination of erythrocyte mean corpuscular volume (MCV)Ordered By: Dr. Augustine on 02-10-2023 MCV (RBC) [Entitic vol] 84.3 fL 81-99 [facility] Hematocrit Auto (Bld) [Volum e fraction]Ordered By: Dr. Augustine on 02-10-2023 Hematocrit (Bld) [Volume fraction] 33.9 % 37-47 [facility] Laboratory - Chemistry and C hemistry - challengeOrdered By: Dr. Augustine on 02-10-2023 ALP [Catalytic activity/Vol] 170 U/L 45-117 [facility] ALT [Catalytic activity/Vol] 52 U/L 13-56 [facility] CO2 [Moles/Vol] 29.0 mmol/L 21.0-32.0 [facility] Globulin (S) [Mass/Vol] 3.9 g/dL 2.2-4.2 [facility] Urea nitrogen/Creatinine [Mass ratio] 14.2 mg/mg 10-20 [facility] Laboratory - Hematology and Cell countsOrdered By: Dr. Augustine on 02-10-2023 Erythrocyte distribution width (RBC) [Entitic vol] 44.6 fL 35.1-43.9 [facility] Erythrocyte distribution width (RBC) [Ratio] 14.6 % 11.6-14.6 [facility] Immature granulocytes/100 WBC (Bld) 0.700 % 0.0-0.9 [facility] Comment on above: IG% - Immature Granu locytes (promyelocytes, myelocytes and metamyelocytes) > 1% indicates that a LEFT SHIFT is Present. MCH (RBC) [Entitic mass] 27.4 pg 27.0-32.0 [facility] Nucleated RBC/100 WBC (Bld) [Ratio] 0 % 0-5 [facility] MCHC Auto (RBC) [Mass/Vol]Or dered By: Dr. Augustine on 02-10-2023 MCHC (RBC) [Mass/Vol] 32.4 g/dL 32-36 [facility] No Panel InformationOrdered By: Dr. Augustine on 02-10-2023 Estimated GFR (MDRD) Amer 70 mL/min >60 [facility] Comment on above: GFR Calc Estimated GFR (MDRD) Non-Af Amer 58 mL/min >60 [facility] Comment on above: Non- GFR Calc Platelets bldOrdered By: Dr. Augustine on 02-10-2023 Platelets (Bld) [#/Vol] 341 10*3/uL 150-450 [facility] Serum or plasma albumin susanna urement (mass/volume)Ordered By: Dr. Augustine on 02-10-2023 Albumin [Mass/Vol] 4.2 g/dL 3.2-5.0 [facility] Serum or plasma albumin/glob ulin mass ratioOrdered By: Dr. Augustine on 02-10-2023 Albumin/Globulin [Mass ratio] 1.1 {ratio} 0.9-2.4 [facility] Serum or plasma calcium susanna urement (mass/volume)Ordered By: Dr. Augustine on 02-10-2023 Calcium [Mass/Vol] 9.9 mg/dL 8.5-10.1 [facility] Serum or plasma creatinine m easurement (mass/volume)Ordered By: Dr. Augustine on 02-10-2023 Creatinine [Mass/Vol] 1.06 mg/dL 0.55-1.02 [facility] Comment on above: The validity of the calculated GFR & GFRAA in patients over 70 years has not been determined. Clinical correlation is essential. Serum or plasma urea nitroge n measurement (mass/volume)Ordered By: Dr. Augustine on 02-10-2023 Urea nitrogen [Mass/Vol] 15 mg/dL 7-18 [facility] Thin prep Papanicolaou smear with manual screeningOrdered By: Dr. Augustine on 02-10-2023 Thin prep Papanicolaou smear with manual screening 35 U/L 15-37 [facility] Thin prep Papanicolaou smear with manual screening 6 5-15 [facility] Laboratory - Chemistry and C hemistry - challengeOrdered By: Dr. Lanier on 01-21-2023 T4 [Mass/Vol] 10.2 ug/dL 4.8-13.9 [facility] No Panel InformationOrdered By: Dr. Lanier on 01-21-2023 Free Triiodothyronine (T3) pg/dL 2.4 pg/mL 2.18-3.98 [facility] Thyroid Stimulating Hormone (TSH) 2.36 uIU/mL 0.358-3.74 [facility] Absolute lymphocyte counton 08-27-2022 Lymphocytes Auto (Unsp spec) [#/Vol] 2.11 10*3/uL 0.83-4.51 [facility] Work Phone: Basophil percentageon 2021 Basophils/100 WBC (Bld) 0.6 % 0-1 [facility] Work Phone: Bilirubin [Mass/Vol] 0.30 mg/dL 0.20-1.00 [facility] Work Phone: Comment on above: For patients on eltr ombopag therapy, use of Dimension [place] TBIL is not recommended. Chloride [Moles/Vol] 105 mmol/L 98-107 [facility] Work Phone: Cholesterol [Mass/Vol] 187 mg/dL <200 [facility] Work Phone: Comment on above: <200 mg/dL Desirable 200-240 mg/dL Borderline >240 mg/dL High Risk Eosinophils/100 WBC (Bld) 3.6 % 0-5 [facility] Work Phone: Glucose [Mass/Vol] 121 mg/dL 74-106 [facility] Work Phone: Comment on above: Fasting Glucose resu lt from 100 to 125 mg/dL suggests IMPAIRED HOMEOSTASIS per A.D.A. criteria. Neutrophils (Bld) [#/Vol] 6.0 10*3/uL 2.0-7.7 [facility] Work Phone: Neutrophils/100 WBC (Bld) 67.1 % 47-70 [facility] Work Phone: Potassium [Moles/Vol] 3.4 mmol/L 3.5-5.1 [facility] Work Phone: Protein [Mass/Vol] 7.5 g/dL 6.4-8.2 [facility] Work Phone: Sodium [Moles/Vol] 140 mmol/L 136-145 [facility] Work Phone: Triglyceride [Mass/Vol] 374 mg/dL <199 [facility] Work Phone: Comment on above: The drugs N-Acetylcy steine and Metamizole may falsely depress this assay.Serum Triglycerides Reference Interval Normal <150 mg/dL Borderline high 150 - 199 mg/dL High 200 - 499 mg/dL Very High > or = 500 mg/dL WBC (Bld) [#/Vol] 8.9 10*3/uL 4.4-11.0 [facility] Work Phone: Blood erythrocytes count (nu mber/volume)on 08-27-2022 RBC (Bld) [#/Vol] 4.24 10*6/uL 4.2-5.4 [facility] Work Phone: Blood hemoglobin measurement (mass/volume)on 08-27-2022 Hemoglobin (Bld) [Mass/Vol] 11.6 g/dL 12.0-15.0 [facility] Work Phone: Blood lymphocytes/100 leukoc yteson 08-27-2022 Lymphocytes/100 WBC (Bld) 23.7 % 19-41 [facility] Work Phone: Blood monocytes/100 leukocyt eson 08-27-2022 Monocytes/100 WBC (Bld) 4.3 % 0-10 [facility] Work Phone: Blood platelet mean volumeon 08-27-2022 Platelet mean volume (Bld) [Entitic vol] 9.2 fL 6.2-12.0 [facility] Work Phone: Determination of erythrocyte mean corpuscular volume (MCV)on 08-27-2022 MCV (RBC) [Entitic vol] 82.1 fL 81-99 [facility] Work Phone: Hematocrit Auto (Bld) [Volum e fraction]on 08-27-2022 Hematocrit (Bld) [Volume fraction] 34.8 % 37-47 [facility] Work Phone: Laboratory - Chemistry and C hemistry - challengeon 08-27-2022 ALP [Catalytic activity/Vol] 160 U/L 45-117 [facility] Work Phone: ALT [Catalytic activity/Vol] 52 U/L 13-56 [facility] Work Phone: CO2 [Moles/Vol] 27.0 mmol/L 21.0-32.0 [facility] Work Phone: Globulin (S) [Mass/Vol] 3.8 g/dL 2.2-4.2 [facility] Work Phone: Urea nitrogen/Creatinine [Mass ratio] 18.3 mg/mg 10-20 [facility] Work Phone: Laboratory - Hematology and Cell countson 08-27-2022 Erythrocyte distribution width (RBC) [Entitic vol] 41.5 fL 35.1-43.9 [facility] Work Phone: Erythrocyte distribution width (RBC) [Ratio] 14.1 % 11.6-14.6 [facility] Work Phone: Immature granulocytes/100 WBC (Bld) 0.700 % 0.0-0.9 [facility] Work Phone: Comment on above: IG% - Immature Granu locytes (promyelocytes, myelocytes and metamyelocytes) > 1% indicates that a LEFT SHIFT is Present. MCH (RBC) [Entitic mass] 27.4 pg 27.0-32.0 [facility] Work Phone: Nucleated RBC/100 WBC (Bld) [Ratio] 0 % 0-5 [facility] Work Phone: MCHC Auto (RBC) [Mass/Vol]on 08-27-2022 MCHC (RBC) [Mass/Vol] 33.3 g/dL 32-36 [facility] Work Phone: No Panel Informationon 08-27 Estimated GFR (MDRD) Amer 76 mL/min >60 [facility] Work Phone: Comment on above: GFR Calc Estimated GFR (MDRD) Non-Af Amer 63 mL/min >60 [facility] Work Phone: Comment on above: Non- GFR Calc Platelets bldon 08-27-2022 Platelets (Bld) [#/Vol] 339 10*3/uL 150-450 [facility] Work Phone: Serum or plasma albumin susanna urement (mass/volume)on 08-27-2022 Albumin [Mass/Vol] 3.7 g/dL 3.2-5.0 [facility] Work Phone: Serum or plasma albumin/glob ulin mass ratioon 08-27-2022 Albumin/Globulin [Mass ratio] 1.0 {ratio} 0.9-2.4 [facility] Work Phone: Serum or plasma calcium susanna urement (mass/volume)on 08-27-2022 Calcium [Mass/Vol] 9.0 mg/dL 8.5-10.1 [facility] Work Phone: Serum or plasma cholesterol in HDL measurement (mass/volume)on 08-27-2022 Cholesterol in HDL [Mass/Vol] 43 mg/dL >40 [facility] Work Phone: Comment on above: The drugs N-Acetylcy steine and Metamizole may falsely depress this assay. Reference Range HDL <40 mg/dL Low HDL Cholesterol HDL >or= 60 mg/dL High HDL Cholesterol Serum or plasma cholesterol in VLDL measurement (mass/volume)on 08-27-2022 Cholesterol in VLDL [Mass/Vol] 75 mg/dL 5-40 [facility] Work Phone: Serum or plasma creatinine m easurement (mass/volume)on 08-27-2022 Creatinine [Mass/Vol] 0.99 mg/dL 0.55-1.02 [facility] Work Phone: Comment on above: The validity of the calculated GFR & GFRAA in patients over 70 years has not been determined. Clinical correlation is essential. Serum or plasma low density lipoprotein (LDL) cholesterol measurement (mass/volume)on 08-27-2022 Cholesterol in LDL [Mass/Vol] 69 mg/dL 0-130 [facility] Work Phone: Serum or plasma urea nitroge n measurement (mass/volume)on 08-27-2022 Urea nitrogen [Mass/Vol] 18 mg/dL 7-18 [facility] Work Phone: Thin prep Papanicolaou smear with manual screeningon 08-27-2022 Thin prep Papanicolaou smear with manual screening 37 U/L 15-37 [facility] Work Phone: Thin prep Papanicolaou smear with manual screening 8 5-15 [facility] Work Phone: Cervical or vagninal specime n microscopic examination by cytology stain (reported ason 08-11-2022 Cytology report Cyto stain Doc (Cvx/Vag) Comment . [facility] Work Phone: Comment on above: The Pap smear is a s creening test designed to aid in thedetection of premalignant and malignant conditions of theuterine cervix. It is not a diagnostic procedure andshould not be used as the sole means of detecting cervicalcancer. Both false-positive and false-negative reports dooccur. Laboratory - Cytologyon [employer] Installer Cyto stain Nom (Cvx/Vag) [ID] Comment . [facility] Work Phone: Comment on above: Jelena Pringle, Cytot echnologist (ASCP) Laboratory - Miscellaneous t estson 08-11-2022 Service comment (Unsp spec) [Interp] TNP [facility] Work Phone: Comment on above: Test not performedTh e Thin Prep(R) Facility Rehab Director was unable to read this specimen.Therefore a manual review was performed. Service comment (Unsp spec) [Interp] . . [facility] Work Phone: No Panel Informationon 08-11 Human Papillomavirus Screen Comment . [facility] Work Phone: Comment on above: The HPV DNA reflex c rosalie were not met with this specimenresult therefore, no HPV testing was performed.Performed at: [address] [id number] Director: Em Tavarez MD, Phone: [phone] Pathology report final diagnosis Narrative Comment . [facility] Work Phone: Comment on above: NEGATIVE FOR INTRAEP ITHELIAL LESION OR MALIGNANCY. No Panel Informationon 03-10 Follicle Stimulating Hormone 6.6 mIU/mL [facility] Work Phone: Comment on above: NORMAL REFERENCE RAN GES FEMALE FOLLICULAR 2.3 - 12.6 mIU/mL MID-CYCLE PEAK 5.2 - 17.5 mIU/mL LUTEAL 1.7 - 12.9 mIU/mL POST-MENOPAUSAL ON MHT 5.9 - 72.8 mIU/mL NOT ON MHT 12.7 - 132.2 mlU/mL MALE 0.7 - 10.8 mIU/mL Basophil percentageon 2021 Cholesterol [Mass/Vol] 187 mg/dL <200 [facility] Work Phone: Comment on above: <200 mg/dL Desirable 200-240 mg/dL Borderline >240 mg/dL High Risk Triglyceride [Mass/Vol] 286 mg/dL [facility] Work Phone: Comment on above: The drugs N-Acetylcy steine and Metamizole may falsely depress this assay.Serum Triglycerides Reference Interval Normal <150 mg/dL Borderline high 150 - 199 mg/dL High 200 - 499 mg/dL Very High > or = 500 mg/dL Laboratory - Chemistry and C hemistry - challengeon 12-01-2021 Free T4 [Mass/Vol] 0.94 ng/dL 0.76-1.46 [facility] Work Phone: No Panel Informationon 12-01 Thyroglobulin Antibody < 1.0 IU/mL [facility] Work Phone: Comment on above: Thyroglobulin Antibo dy measured by [employer] MedicalMethodologyPerformed at: [facility] - [facility] [address] [id number] Director: Chance Waters PhD, Phone: [phone] Thyroid Stimulating Hormone (TSH) 1.99 uIU/mL 0.358-3.74 [facility] Work Phone: Serum or plasma cholesterol in HDL measurement (mass/volume)on 12-01-2021 Cholesterol in HDL [Mass/Vol] 39 mg/dL [facility] Work Phone: Comment on above: The drugs N-Acetylcy steine and Metamizole may falsely depress this assay. Reference Range HDL <40 mg/dL Low HDL Cholesterol HDL >or= 60 mg/dL High HDL Cholesterol Serum or plasma cholesterol in VLDL measurement (mass/volume)on 12-01-2021 Cholesterol in VLDL [Mass/Vol] 57 mg/dL 5-40 [facility] Work Phone: Serum or plasma low density lipoprotein (LDL) cholesterol measurement (mass/volume)on 12-01-2021 Cholesterol in LDL [Mass/Vol] 91 mg/dL 0-130 [facility] Work Phone: Serum or plasma thyroperoxid ase antibody assay (units/volume)on 12-01-2021 TPO Ab Qn 38 [IU]/mL [facility] Work Phone: Vital Signs Date Time Vital Sign Value Performing Clinician Facility 07-26-2025 16:00-0400 Body temperature 97.4 [degF] Dr. Mati Augustine DO Work Phone: [facility] 07-26-2025 16:00-0400 Diastolic blood pressure 50 mm[Hg] Dr. Mati Augustine DO Work Phone: [facility] 07-26-2025 16:00-0400 Heart rate 88 /min Dr. Mati Augustine DO Work Phone: [facility] 07-26-2025 16:00-0400 Respiratory rate 18 /min Dr. Mati Augustine DO Work Phone: [facility] 07-26-2025 16:00-0400 SaO2% (BldA) [Mass fraction] 96 % Dr. Mati Augustine DO Work Phone: [facility] 07-26-2025 16:00-0400 Systolic blood pressure 101 mm[Hg] Dr. Mati Augustine DO Work Phone: [facility] 07-26-2025 15:30-0400 Inhaled oxygen flow rate 2 L/min Dr. Mati Augustine DO Work Phone: [facility] 07-26-2025 09:51-0400 Body height 157.[address] Mati Augustine DO Work Phone: [facility] 07-26-2025 09:51-0400 Body mass index (BMI) [Ratio] 35.4 kg/m2 Dr. Mati Augustine DO Work Phone: [facility] 07-26-2025 09:51-0400 Body weight 87.[address] Mati Augustine DO Work Phone: [facility] 07-19-2025 14:27-0400 Body mass index (BMI) [Ratio] 36.2 kg/m2 Dr. Mati Augustine DO Work Phone: [facility] 07-19-2025 14:27-0400 Body weight 89.[address] Mati Augustine DO Work Phone: [facility] 07-19-2025 14:27-0400 Diastolic blood pressure 66 mm[Hg] Dr. Mati Augustine DO Work Phone: [facility] 07-19-2025 14:27-0400 Respiratory rate 16 /min Dr. Mati Augustine DO Work Phone: [facility] 07-19-2025 14:27-0400 SaO2% (BldA) [Mass fraction] 97 % Dr. Mati Augustine DO Work Phone: [facility] 07-19-2025 14:27-0400 Systolic blood pressure 97 mm[Hg] Dr. Mati Augustine DO Work Phone: [facility] 07-19-2025 13:27-0400 Heart rate 90 /min Dr. Mati Augustine DO Work Phone: [facility] 07-19-2025 13:04-0400 Body mass index (BMI) [Ratio] 36.3 kg/m2 Dr. Mati Augustine DO Work Phone: [facility] 07-19-2025 13:04-0400 Body temperature 97 [degF] Dr. Mati Augustine DO Work Phone: [facility] 07-19-2025 13:04-0400 Body weight 89.[address] Mati Augustine DO Work Phone: [facility] 07-19-2025 13:04-0400 Diastolic blood pressure 70 mm[Hg] Dr. Mati Augustine DO Work Phone: [facility] 07-19-2025 13:04-0400 Respiratory rate 16 /min Dr. Mati Augustine DO Work Phone: [facility] 07-19-2025 13:04-0400 SaO2% (BldA) [Mass fraction] 99 % Dr. Mati Augustine DO Work Phone: [facility] 07-19-2025 13:04-0400 Systolic blood pressure 124 mm[Hg] Dr. Mati Augustine DO Work Phone: [facility] 06-05-2025 12:51-0400 Body height 157.[address] Mati Augustine DO Work Phone: [facility] 06-05-2025 12:51-0400 Body mass index (BMI) [Ratio] 37.7 kg/m2 Dr. Mati Augustine DO Work Phone: [facility] 06-05-2025 12:51-0400 Body temperature 97.2 [degF] Dr. Mati Augustine DO Work Phone: [facility] 06-05-2025 12:51-0400 Body weight 93.[address] Mati Augustine DO Work Phone: [facility] 06-05-2025 12:51-0400 Diastolic blood pressure 79 mm[Hg] Dr. Mati Augustine DO Work Phone: [facility] 06-05-2025 12:51-0400 Heart rate 82 /min Dr. Mati Augustine DO Work Phone: [facility] 06-05-2025 12:51-0400 Respiratory rate 17 /min Dr. Mati Augustine DO Work Phone: [facility] 06-05-2025 12:51-0400 SaO2% (BldA) [Mass fraction] 99 % Dr. Mati Augustine DO Work Phone: [facility] 06-05-2025 12:51-0400 Systolic blood pressure 117 mm[Hg] Dr. Mati Augustine DO Work Phone: [facility] 05-16-2025 13:57-0400 Body height 157.[address] Mati Augustine DO Work Phone: [facility] 05-16-2025 13:57-0400 Body mass index (BMI) [Ratio] 38 kg/m2 Dr. Mati Augustine DO Work Phone: [facility] 05-16-2025 13:57-0400 Body temperature 97.5 [degF] Dr. Mati Augustine DO Work Phone: [facility] 05-16-2025 13:57-0400 Body weight 94.[address] Mati Augustine DO Work Phone: [facility] 05-16-2025 13:57-0400 Diastolic blood pressure 72 mm[Hg] Dr. Mati Augustine DO Work Phone: [facility] 05-16-2025 13:57-0400 Heart rate 91 /min Dr. Mati Augustine DO Work Phone: [facility] 05-16-2025 13:57-0400 Respiratory rate 16 /min Dr. Mati Augustine DO Work Phone: [facility] 05-16-2025 13:57-0400 SaO2% (BldA) [Mass fraction] 96 % Dr. Mati Augustine DO Work Phone: [facility] 05-16-2025 13:57-0400 Systolic blood pressure 118 mm[Hg] Dr. Mati Augustine DO Work Phone: [facility] 05-07-2025 09:26-0400 Body height 157.5 cm Fabrizio Ambrocio MD Work Phone: [facility] 05-07-2025 09:26-0400 Body mass index (BMI) [Ratio] 38.19 kg/m2 Fabrizio Ambrocio MD Work Phone: [facility] 05-07-2025 09:26-0400 Body weight 94.7 kg Fabrizio Ambrocio MD Work Phone: [facility] 05-07-2025 09:26-0400 Diastolic blood pressure 75 mm[Hg] Fabrizio Ambrocio MD Work Phone: [facility] 05-07-2025 09:26-0400 Heart rate 85 /min Fabrizio Ambrocio MD Work Phone: [facility] 05-07-2025 09:26-0400 Respiratory rate 16 /min Fabrizio Ambrocio MD Work Phone: [facility] 05-07-2025 09:26-0400 SaO2% (BldA) [Mass fraction] 100 % Fabrizio Ambrocio MD Work Phone: [facility] 05-07-2025 09:26-0400 Systolic blood pressure 111 mm[Hg] Fabrizio Ambrocio MD Work Phone: [facility] 04-09-2025 09:45-0400 Body height 157.5 cm Fabrizio Ambrocio MD Work Phone: [facility] 04-09-2025 09:45-0400 Body mass index (BMI) [Ratio] 36.73 kg/m2 Fabrizio Ambrocio MD Work Phone: [facility] 04-09-2025 09:45-0400 Body weight 91.1 kg Fabrizio Ambrocio MD Work Phone: [facility] 04-09-2025 09:45-0400 Diastolic blood pressure 54 mm[Hg] Fabrizio Ambrocio MD Work Phone: [facility] 04-09-2025 09:45-0400 Heart rate 68 /min Fabrizio Ambrocio MD Work Phone: [facility] 04-09-2025 09:45-0400 SaO2% (BldA) [Mass fraction] 98 % Fabrizio Ambrocio MD Work Phone: [facility] 04-09-2025 09:45-0400 Systolic blood pressure 104 mm[Hg] Fabrizio Ambrocio MD Work Phone: [facility] 04-02-2025 09:30-0400 Body height 157.[address] Mati Augustine DO Work Phone: [facility] 04-02-2025 09:30-0400 Body mass index (BMI) [Ratio] 36.6 kg/m2 Dr. Mati Augustine DO Work Phone: [facility] 04-02-2025 09:30-0400 Body temperature 97.6 [degF] Dr. Mati Augustine DO Work Phone: [facility] 04-02-2025 09:30-0400 Body weight 90.[address] Mati Augustine DO Work Phone: [facility] 04-02-2025 09:30-0400 Diastolic blood pressure 70 mm[Hg] Dr. Mati Augustine DO Work Phone: [facility] 04-02-2025 09:30-0400 Heart rate 93 /min Dr. Mati Augustine DO Work Phone: [facility] 04-02-2025 09:30-0400 Respiratory rate 16 /min Dr. Mati Augustine DO Work Phone: [facility] 04-02-2025 09:30-0400 SaO2% (BldA) [Mass fraction] 97 % Dr. Mati Augustine DO Work Phone: [facility] 04-02-2025 09:30-0400 Systolic blood pressure 110 mm[Hg] Dr. Mati Augustine DO Work Phone: [facility] 03-22-2025 09:44-0400 Body height 157.5 cm Fabrizio Ambrocio MD Work Phone: [facility] 03-22-2025 09:44-0400 Body mass index (BMI) [Ratio] 37.13 kg/m2 Fabrizio Ambrocio MD Work Phone: [facility] 03-22-2025 09:44-0400 Body weight 92.08 kg Fabrizio Ambrocio MD Work Phone: [facility] 03-22-2025 09:44-0400 Diastolic blood pressure 75 mm[Hg] Fabrizio Ambrocio MD Work Phone: [facility] 03-22-2025 09:44-0400 Heart rate 108 /min Fabrizio Ambrocio MD Work Phone: [facility] 03-22-2025 09:44-0400 Respiratory rate 16 /min Fabrizio Ambrocio MD Work Phone: [facility] 03-22-2025 09:44-0400 SaO2% (BldA) [Mass fraction] 98 % Fabrizio Ambrocio MD Work Phone: [facility] 03-22-2025 09:44-0400 Systolic blood pressure 106 mm[Hg] Fabrizio Ambrocio MD Work Phone: [facility] 02-28-2025 22:47-0400 Body temperature 97.8 [degF] Dr. Mati Augustine DO Work Phone: [facility] 02-28-2025 22:47-0400 Diastolic blood pressure 88 mm[Hg] Dr. Mati Augustine DO Work Phone: [facility] 02-28-2025 22:47-0400 Heart rate 89 /min Dr. Mati Augustine DO Work Phone: [facility] 02-28-2025 22:47-0400 Respiratory rate 18 /min Dr. Mati Augustine DO Work Phone: [facility] 02-28-2025 22:47-0400 SaO2% (BldA) [Mass fraction] 99 % Dr. Mati Augustine DO Work Phone: [facility] 02-28-2025 22:47-0400 Systolic blood pressure 138 mm[Hg] Dr. Mati Augustine DO Work Phone: [facility] 02-28-2025 10:57-0400 Body height 157.[address] Mati Augustine DO Work Phone: [facility] 02-28-2025 10:57-0400 Body weight 86.[address] Mati Augustine DO Work Phone: [facility] 02-27-2025 19:22-0400 Body mass index (BMI) [Ratio] 34.9 kg/m2 Dr. Mati Augustine DO Work Phone: [facility] 02-27-2025 19:00-0400 Body temperature 98.2 [degF] Dr. Mati Augustine DO Work Phone: [facility] 02-27-2025 19:00-0400 Diastolic blood pressure 68 mm[Hg] Dr. Mati Augustine DO Work Phone: [facility] 02-27-2025 19:00-0400 Heart rate 101 /min Dr. Mati Augustine DO Work Phone: [facility] 02-27-2025 19:00-0400 Respiratory rate 16 /min Dr. Mati Augustine DO Work Phone: [facility] 02-27-2025 19:00-0400 SaO2% (BldA) [Mass fraction] 98 % Dr. Mati Augustine DO Work Phone: [facility] 02-27-2025 19:00-0400 Systolic blood pressure 124 mm[Hg] Dr. Mati Augustine DO Work Phone: [facility] 02-27-2025 08:51-0400 Body height 157.[address] Mati Augustine DO Work Phone: [facility] 02-27-2025 08:51-0400 Body mass index (BMI) [Ratio] 35.9 kg/m2 Dr. Mati Augustine DO Work Phone: [facility] 02-27-2025 08:51-0400 Body weight 89.[address] Mati Augustine DO Work Phone: [facility] 02-06-2025 13:07-0400 Body mass index (BMI) [Ratio] 33.3 kg/m2 Dr. Mati Augustine DO Work Phone: [facility] 02-06-2025 13:07-0400 Body temperature 98.6 [degF] Dr. Mati Augustine DO Work Phone: [facility] 02-06-2025 13:07-0400 Body weight 82.[address] Mati Augustine DO Work Phone: [facility] 02-06-2025 13:07-0400 Diastolic blood pressure 74 mm[Hg] Dr. Mati Augustine DO Work Phone: [facility] 02-06-2025 13:07-0400 Heart rate 80 /min Dr. Mati Augustine DO Work Phone: [facility] 02-06-2025 13:07-0400 Respiratory rate 16 /min Dr. Mati Augustine DO Work Phone: [facility] 02-06-2025 13:07-0400 SaO2% (BldA) [Mass fraction] 99 % Dr. Mati Augustine DO Work Phone: [facility] 02-06-2025 13:07-0400 Systolic blood pressure 114 mm[Hg] Dr. Mati Augustine DO Work Phone: [facility] 01-11-2025 08:17-0400 Body height 157.[address] Mati Augustine DO Work Phone: [facility] 01-11-2025 08:17-0400 Body mass index (BMI) [Ratio] 34.4 kg/m2 Dr. Mati Augustine DO Work Phone: [facility] 01-11-2025 08:17-0400 Body temperature 97.6 [degF] Dr. Mati Augustine DO Work Phone: [facility] 01-11-2025 08:17-0400 Body weight 85.[address] Mati Augustine DO Work Phone: [facility] 01-11-2025 08:17-0400 Diastolic blood pressure 68 mm[Hg] Dr. Mati Augustine DO Work Phone: [facility] 01-11-2025 08:17-0400 Heart rate 76 /min Dr. Mati Augustine DO Work Phone: [facility] 01-11-2025 08:17-0400 Respiratory rate 18 /min Dr. Mati Augustine DO Work Phone: [facility] 01-11-2025 08:17-0400 SaO2% (BldA) [Mass fraction] 96 % Dr. Mati Augustine DO Work Phone: [facility] 01-11-2025 08:17-0400 Systolic blood pressure 110 mm[Hg] Dr. Mati Augustine DO Work Phone: [facility] 12-25-2024 08:35-0400 Body mass index (BMI) [Ratio] 32.1 kg/m2 Dr. Mati Augustine DO Work Phone: [facility] 12-25-2024 08:35-0400 Body temperature 97.1 [degF] Dr. Mati Augustine DO Work Phone: [facility] 12-25-2024 08:35-0400 Body weight 79.[address] Mati Augustine DO Work Phone: [facility] 12-25-2024 08:35-0400 Diastolic blood pressure 78 mm[Hg] Dr. Mati Augustine DO Work Phone: [facility] 12-25-2024 08:35-0400 Heart rate 86 /min Dr. Mati Augustine DO Work Phone: [facility] 12-25-2024 08:35-0400 Respiratory rate 16 /min Dr. Mati Augustine DO Work Phone: [facility] 12-25-2024 08:35-0400 SaO2% (BldA) [Mass fraction] 97 % Dr. Mati Augustine DO Work Phone: [facility] 12-25-2024 08:35-0400 Systolic blood pressure 102 mm[Hg] Dr. Mati Augustine DO Work Phone: [facility] 12-11-2024 11:49-0400 Body height 157.[address] Mati Augustine DO Work Phone: [facility] 12-11-2024 11:49-0400 Body mass index (BMI) [Ratio] 32.3 kg/m2 Dr. Mati Augustine DO Work Phone: [facility] 12-11-2024 11:49-0400 Body temperature 98.5 [degF] Dr. Mati Augustine DO Work Phone: [facility] 12-11-2024 11:49-0400 Body weight 80.[address] Mati Augustine DO Work Phone: [facility] 12-11-2024 11:49-0400 Diastolic blood pressure 70 mm[Hg] Dr. Mati Augustine DO Work Phone: [facility] 12-11-2024 11:49-0400 Heart rate 91 /min Dr. Mati Augustine DO Work Phone: [facility] 12-11-2024 11:49-0400 Respiratory rate 16 /min Dr. Mati Augustine DO Work Phone: [facility] 12-11-2024 11:49-0400 SaO2% (BldA) [Mass fraction] 97 % Dr. Mati Augustine DO Work Phone: [facility] 12-11-2024 11:49-0400 Systolic blood pressure 105 mm[Hg] Dr. Mati Augustine DO Work Phone: [facility] 12-05-2024 09:47-0500 Diastolic blood pressure 65 mm[Hg] Dr. Mati Augustine DO Work Phone: [facility] 12-05-2024 09:47-0500 Heart rate 89 /min Dr. Mati Augustine DO Work Phone: [facility] 12-05-2024 09:47-0500 Respiratory rate 16 /min Dr. Mati Augustine DO Work Phone: [facility] 12-05-2024 09:47-0500 Systolic blood pressure 101 mm[Hg] Dr. Mati Augustine DO Work Phone: [facility] 12-05-2024 09:12-0500 Body temperature 96.4 [degF] Dr. Mati Augustine DO Work Phone: [facility] 02-04-2024 05:58-0400 Blood Pressure Location TESSA REICH DO [facility] 02-04-2024 05:58-0400 Blood Pressure [facility] 02-04-2024 05:58-0400 Body height 157.5 cm TESSA REICHFIELD DO [facility] 02-04-2024 05:58-0400 Body temperature 96.98 [degF] TESSA REICHFIELD DO [facility] 02-04-2024 05:58-0400 Body weight 77.3 kg TESSA REICHFIELD DO [facility] 02-04-2024 05:58-0400 Diastolic Blood Pressure Non-Invasive 78 mm[Hg] TESSA REICHFIELD DO [facility] 02-04-2024 05:58-0400 Heart rate 92 /min TESSA REICHFIELD DO [facility] 02-04-2024 05:58-0400 Respiratory rate 16 /min TESSA REICHFIELD DO [facility] 02-04-2024 05:58-0400 Systolic Blood Pressure Non-Invasive 109 mm[Hg] TESSA REICHFIELD DO [facility] 12-27-2023 09:30-0400 Body mass index (BMI) [Ratio] 32.7 kg/m2 Dr. Mati Augustine Work Phone: [facility] 12-27-2023 09:30-0400 Body temperature 97.7 [degF] Dr. Mati Augustine Work Phone: [facility] 12-27-2023 09:30-0400 Body weight 81.[address] Mati Augustine Work Phone: [facility] 12-27-2023 09:30-0400 Diastolic blood pressure 74 mm[Hg] Dr. Mati Augustine Work Phone: [facility] 12-27-2023 09:30-0400 Heart rate 84 /min Dr. Mati Augustine Work Phone: [facility] 12-27-2023 09:30-0400 Respiratory rate 16 /min Dr. Mati Augustine Work Phone: [facility] 12-27-2023 09:30-0400 SaO2% (BldA) [Mass fraction] 99 % Dr. Mati Augustine Work Phone: [facility] 12-27-2023 09:30-0400 Systolic blood pressure 116 mm[Hg] Dr. Mati Augustine Work Phone: [facility] 12-21-2023 14:35-0400 Body temperature 97.5 [degF] Dr. Mati Augustine Work Phone: [facility] 12-21-2023 14:35-0400 Diastolic blood pressure 65 mm[Hg] Dr. Mati Augustine Work Phone: [facility] 12-21-2023 14:35-0400 Heart rate 74 /min Dr. Mati Augustine Work Phone: [facility] 12-21-2023 14:35-0400 Respiratory rate 16 /min Dr. Mati Augustine Work Phone: [facility] 12-21-2023 14:35-0400 SaO2% (BldA) [Mass fraction] 100 % Dr. Mati Augustine Work Phone: [facility] 12-21-2023 14:35-0400 Systolic blood pressure 99 mm[Hg] Dr. Mati Augustine Work Phone: [facility] 12-21-2023 11:20-0400 Body height 157.[address] Mati Augustine Work Phone: [facility] 12-21-2023 11:20-0400 Body mass index (BMI) [Ratio] 32.7 kg/m2 Dr. Mati Augustine Work Phone: [facility] 12-21-2023 11:20-0400 Body weight 81.[address] Mati Augustine Work Phone: [facility] 12-13-2023 15:23-0400 Body mass index (BMI) [Ratio] 33.3 kg/m2 Dr. Mati Augustine Work Phone: [facility] 12-13-2023 15:23-0400 Body temperature 98.2 [degF] Dr. Mati Augustine Work Phone: [facility] 12-13-2023 15:23-0400 Body weight 82.[address] Mati Augustine Work Phone: [facility] 12-13-2023 15:23-0400 Diastolic blood pressure 70 mm[Hg] Dr. Mati Augustine Work Phone: [facility] 12-13-2023 15:23-0400 Heart rate 92 /min Dr. Mati Augustine Work Phone: [facility] 12-13-2023 15:23-0400 Respiratory rate 18 /min Dr. Mati Augustine Work Phone: [facility] 12-13-2023 15:23-0400 SaO2% (BldA) [Mass fraction] 98 % Dr. Mati Augustine Work Phone: [facility] 12-13-2023 15:23-0400 Systolic blood pressure 102 mm[Hg] Dr. Mati Augustine Work Phone: [facility] 11-30-2023 11:19-0500 Body height 157.[address] Mati Augustine Work Phone: [facility] 11-30-2023 11:19-0500 Body mass index (BMI) [Ratio] 32.3 kg/m2 Dr. Mati Augustine Work Phone: [facility] 11-30-2023 11:19-0500 Body temperature 97.5 [degF] Dr. Mati Augustine Work Phone: [facility] 11-30-2023 11:19-0500 Body weight 80.[address] Mati Augustine Work Phone: [facility] 11-30-2023 11:19-0500 Diastolic blood pressure 70 mm[Hg] Dr. Mati Augustine Work Phone: [facility] 11-30-2023 11:19-0500 Heart rate 72 /min Dr. Mati Augustine Work Phone: [facility] 11-30-2023 11:19-0500 Respiratory rate 14 /min Dr. Mati Augustine Work Phone: [facility] 11-30-2023 11:19-0500 SaO2% (BldA) [Mass fraction] 99 % Dr. Mati Augustine Work Phone: [facility] 11-30-2023 11:19-0500 Systolic blood pressure 114 mm[Hg] Dr. Mati Augustine Work Phone: [facility] 11-01-2023 09:55-0500 Body mass index (BMI) [Ratio] 33.5 kg/m2 Dr. Mati Augustine Work Phone: [facility] 11-01-2023 09:55-0500 Body temperature 98.2 [degF] Dr. Mati Augustine Work Phone: [facility] 11-01-2023 09:55-0500 Body weight [address] Mati Augustine Work Phone: [facility] 11-01-2023 09:55-0500 Diastolic blood pressure 80 mm[Hg] Dr. Mati Augustine Work Phone: [facility] 11-01-2023 09:55-0500 Heart rate 92 /min Dr. Mati Augustine Work Phone: [facility] 11-01-2023 09:55-0500 Respiratory rate 14 /min Dr. Mati Augustine Work Phone: [facility] 11-01-2023 09:55-0500 SaO2% (BldA) [Mass fraction] 99 % Dr. Mati Augustine Work Phone: [facility] 11-01-2023 09:55-0500 Systolic blood pressure 112 mm[Hg] Dr. Mati Augustine Work Phone: [facility] 09-29-2023 10:31-0500 Body height 157.[address] Mati Augustine Work Phone: [facility] 09-29-2023 10:31-0500 Body mass index (BMI) [Ratio] 33.3 kg/m2 Dr. Mati Augustine Work Phone: [facility] 09-29-2023 10:31-0500 Body temperature 97.7 [degF] Dr. Mati Augustine Work Phone: [facility] 09-29-2023 10:31-0500 Body weight 82.[address] Mati Augustine Work Phone: [facility] 09-29-2023 10:31-0500 Diastolic blood pressure 60 mm[Hg] Dr. Mati Augustine Work Phone: [facility] 09-29-2023 10:31-0500 Heart rate 107 /min Dr. Mati Augustine Work Phone: [facility] 09-29-2023 10:31-0500 Respiratory rate 16 /min Dr. Mati Augustine Work Phone: [facility] 09-29-2023 10:31-0500 SaO2% (BldA) [Mass fraction] 98 % Dr. Mati Augustine Work Phone: [facility] 09-29-2023 10:31-0500 Systolic blood pressure 120 mm[Hg] Dr. Mati Augustine Work Phone: [facility] 07-18-2023 09:22-0400 Body height 157.[address] Mati Augustine Work Phone: [facility] 07-18-2023 09:22-0400 Body mass index (BMI) [Ratio] 35 kg/m2 Dr. Mati Augustine Work Phone: [facility] 07-18-2023 09:22-0400 Body weight 86.[address] Mati Augustine Work Phone: [facility] 07-18-2023 09:22-0400 Diastolic blood pressure 94 mm[Hg] Dr. Mati Augustine Work Phone: [facility] 07-18-2023 09:22-0400 Systolic blood pressure 148 mm[Hg] Dr. Mati Augustine Work Phone: [facility] 06-14-2023 15:22-0400 Body mass index (BMI) [Ratio] 34.2 kg/m2 Dr. Mati Augustine Work Phone: [facility] 06-14-2023 15:22-0400 Body temperature 97.4 [degF] Dr. Mati Augustine Work Phone: [facility] 06-14-2023 15:22-0400 Body weight 84.[address] Mati Augustine Work Phone: [facility] 06-14-2023 15:22-0400 Diastolic blood pressure 81 mm[Hg] Dr. Mati Augustine Work Phone: [facility] 06-14-2023 15:22-0400 Heart rate 92 /min Dr. Mati Augustine Work Phone: [facility] 06-14-2023 15:22-0400 Respiratory rate 16 /min Dr. Mati Augustine Work Phone: [facility] 06-14-2023 15:22-0400 SaO2% (BldA) [Mass fraction] 100 % Dr. Mati Augustine Work Phone: [facility] 06-14-2023 15:22-0400 Systolic blood pressure 121 mm[Hg] Dr. Mati Augustine Work Phone: [facility] 06-03-2023 11:04-0400 Diastolic blood pressure 85 mm[Hg] Dr. Mati Augustine Work Phone: [facility] 06-03-2023 11:04-0400 Heart rate 92 /min Dr. Mati Augustine Work Phone: [facility] 06-03-2023 11:04-0400 Respiratory rate 18 /min Dr. Mati Augustine Work Phone: [facility] 06-03-2023 11:04-0400 SaO2% (BldA) [Mass fraction] 100 % Dr. Mati Augustine Work Phone: [facility] 06-03-2023 11:04-0400 Systolic blood pressure 129 mm[Hg] Dr. Mati Augustine Work Phone: [facility] 06-03-2023 09:02-0400 Inhaled oxygen flow rate 41 L/min Dr. Mati Augustine Work Phone: [facility] 06-03-2023 08:28-0400 Body height 157.[address] Mati Augustine Work Phone: [facility] 06-03-2023 08:28-0400 Body mass index (BMI) [Ratio] 33.8 kg/m2 Dr. Mati Augustine Work Phone: [facility] 06-03-2023 08:28-0400 Body temperature 98.7 [degF] Dr. Mati Augustine Work Phone: [facility] 06-03-2023 08:28-0400 Body weight 83.[address] Mati Augustine Work Phone: [facility] 05-31-2023 16:00-0400 Body height 157.[address] Mati Augustine Work Phone: [facility] 05-31-2023 16:00-0400 Body mass index (BMI) [Ratio] 34 kg/m2 Dr. Mati Augustine Work Phone: [facility] 05-31-2023 16:00-0400 Body temperature 98.3 [degF] Dr. Mati Augustine Work Phone: [facility] 05-31-2023 16:00-0400 Body weight 84.[address] Mati Augustine Work Phone: [facility] 05-31-2023 16:00-0400 Diastolic blood pressure 86 mm[Hg] Dr. Mati Augustine Work Phone: [facility] 05-31-2023 16:00-0400 Heart rate 95 /min Dr. Mati Augustine Work Phone: [facility] 05-31-2023 16:00-0400 Respiratory rate 18 /min Dr. Mati Augustine Work Phone: [facility] 05-31-2023 16:00-0400 SaO2% (BldA) [Mass fraction] 100 % Dr. Mati Augustine Work Phone: [facility] 05-31-2023 16:00-0400 Systolic blood pressure 117 mm[Hg] Dr. Mati Augustine Work Phone: [facility] 05-16-2023 14:06-0400 Body mass index (BMI) [Ratio] 34.2 kg/m2 Dr. Mati Augustine Work Phone: [facility] 05-16-2023 14:06-0400 Body temperature 98.2 [degF] Dr. Mati Augustine Work Phone: [facility] 05-16-2023 14:06-0400 Body weight 84.[address] Mati Augustine Work Phone: [facility] 05-16-2023 14:06-0400 Diastolic blood pressure 89 mm[Hg] Dr. Mati Augustine Work Phone: [facility] 05-16-2023 14:06-0400 Heart rate 88 /min Dr. Mati Augustine Work Phone: [facility] 05-16-2023 14:06-0400 Respiratory rate 18 /min Dr. Mati Augustine Work Phone: [facility] 05-16-2023 14:06-0400 SaO2% (BldA) [Mass fraction] 99 % Dr. Mati Augustine Work Phone: [facility] 05-16-2023 14:06-0400 Systolic blood pressure 131 mm[Hg] Dr. Mati Augustine Work Phone: [facility] 03-22-2023 09:28-0400 Body height 157.[address] Mati Augustine Work Phone: [facility] 03-22-2023 09:28-0400 Body mass index (BMI) [Ratio] 33.8 kg/m2 Dr. Mati Augustine Work Phone: [facility] 03-22-2023 09:28-0400 Body temperature 98 [degF] Dr. Mati Augustine Work Phone: [facility] 03-22-2023 09:28-0400 Body weight 83.[address] Mati Augustine Work Phone: [facility] 03-22-2023 09:28-0400 Diastolic blood pressure 82 mm[Hg] Dr. Mati Augustine Work Phone: [facility] 03-22-2023 09:28-0400 Heart rate 81 /min Dr. Mati Augustine Work Phone: [facility] 03-22-2023 09:28-0400 Respiratory rate 14 /min Dr. Mati Augustine Work Phone: [facility] 03-22-2023 09:28-0400 SaO2% (BldA) [Mass fraction] 99 % Dr. Mati Augustine Work Phone: [facility] 03-22-2023 09:28-0400 Systolic blood pressure 142 mm[Hg] Dr. Mati Augustine Work Phone: [facility] 03-01-2023 07:58-0400 Body mass index (BMI) [Ratio] 34.5 kg/m2 Dr. Mati Augustine Work Phone: [facility] 03-01-2023 07:58-0400 Body weight 85.[address] Mati Augustine Work Phone: [facility] 02-10-2023 09:18-0400 Body height 157.[address] Mati Augustine Work Phone: [facility] 02-10-2023 09:18-0400 Body mass index (BMI) [Ratio] 34.4 kg/m2 Dr. Mati Augustine Work Phone: [facility] 02-10-2023 09:18-0400 Body temperature 95.8 [degF] Dr. Mati Augustine Work Phone: [facility] 02-10-2023 09:18-0400 Body weight 85.[address] Mati Augustine Work Phone: [facility] 02-10-2023 09:18-0400 Diastolic blood pressure 80 mm[Hg] Dr. Mati Augustine Work Phone: [facility] 02-10-2023 09:18-0400 Heart rate 104 /min Dr. Mati Augustine Work Phone: [facility] 02-10-2023 09:18-0400 Respiratory rate 18 /min Dr. Mati Augustine Work Phone: [facility] 02-10-2023 09:18-0400 SaO2% (BldA) [Mass fraction] 96 % Dr. Mati Augustine Work Phone: [facility] 02-10-2023 09:18-0400 Systolic blood pressure 118 mm[Hg] Dr. Mati Augustine Work Phone: [facility] 01-21-2023 08:33-0400 Body height 157.[address] Mati Augustine Work Phone: [facility] 01-21-2023 08:33-0400 Body mass index (BMI) [Ratio] 35.4 kg/m2 Dr. Mati Augustine Work Phone: [facility] 01-21-2023 08:33-0400 Body weight 87.[address] Mati Augustine Work Phone: [facility] 01-21-2023 08:33-0400 Diastolic blood pressure 87 mm[Hg] Dr. Mati Augustine Work Phone: [facility] 01-21-2023 08:33-0400 Heart rate 98 /min Dr. Mati Augustine Work Phone: [facility] 01-21-2023 08:33-0400 Respiratory rate 18 /min Dr. Mati Augustine Work Phone: [facility] 01-21-2023 08:33-0400 SaO2% (BldA) [Mass fraction] 100 % Dr. Mati Augustine Work Phone: [facility] 01-21-2023 08:33-0400 Systolic blood pressure 132 mm[Hg] Dr. Mati Augustine Work Phone: [facility] 08-11-2022 16:07-0500 Body temperature 97.3 [degF] Dr. Mati Augustine Work Phone: [facility] Work Phone: 08-11-2022 16:07-0500 Body weight 91.[address] Mati Augustine Work Phone: [facility] Work Phone: 08-11-2022 16:07-0500 Diastolic blood pressure 92 mm[Hg] Dr. Mati Augustine Work Phone: [facility] Work Phone: 08-11-2022 16:07-0500 Heart rate 101 /min Dr. Mati Augustine Work Phone: [facility] Work Phone: 08-11-2022 16:07-0500 Respiratory rate 18 /min Dr. Mati Augustine Work Phone: [facility] Work Phone: 08-11-2022 16:07-0500 SaO2% (BldA) [Mass fraction] 97 % Dr. Mati Augustine Work Phone: [facility] Work Phone: 08-11-2022 16:07-0500 Systolic blood pressure 132 mm[Hg] Dr. Mati Augustine Work Phone: [facility] Work Phone: 03-10-2022 15:46-0400 Body height 157.[address] Mati Augustine Work Phone: [facility] Work Phone: 03-10-2022 15:46-0400 Body mass index (BMI) [Ratio] 36 kg/m2 Dr. Mati Augustine Work Phone: [facility] Work Phone: 03-10-2022 15:46-0400 Body temperature 97.7 [degF] Dr. Mati Augustine Work Phone: [facility] Work Phone: 03-10-2022 15:46-0400 Body weight 89.[address] Mati Augustine Work Phone: [facility] Work Phone: 03-10-2022 15:46-0400 Diastolic blood pressure 84 mm[Hg] Dr. Mati Augustine Work Phone: [facility] Work Phone: 03-10-2022 15:46-0400 Heart rate 115 /min Dr. Mati Augustine Work Phone: [facility] Work Phone: 03-10-2022 15:46-0400 Respiratory rate 16 /min Dr. Mati Augustine Work Phone: [facility] Work Phone: 03-10-2022 15:46-0400 SaO2% (BldA) [Mass fraction] 99 % Dr. Mati Augustine Work Phone: [facility] Work Phone: 03-10-2022 15:46-0400 Systolic blood pressure 122 mm[Hg] Dr. Mati Augustine Work Phone: [facility] Work Phone: 03-10-2022 15:46-0400 Body height 157.[address] Mati Augustine Work Phone: [facility] Work Phone: 03-10-2022 15:46-0400 Body mass index (BMI) [Ratio] 36 kg/m2 Dr. Mati Augustine Work Phone: [facility] Work Phone: 03-10-2022 15:46-0400 Body temperature 97.7 [degF] Dr. Mati Augustine Work Phone: [facility] Work Phone: 03-10-2022 15:46-0400 Body weight 89.[address] Mati Aguustine Work Phone: [facility] Work Phone: 03-10-2022 15:46-0400 Diastolic blood pressure 84 mm[Hg] Dr. Mati Augustine Work Phone: [facility] Work Phone: 03-10-2022 15:46-0400 Heart rate 115 /min Dr. Mati Augustine Work Phone: [facility] Work Phone: 03-10-2022 15:46-0400 Respiratory rate 16 /min Dr. Mati Augustine Work Phone: [facility] Work Phone: 03-10-2022 15:46-0400 SaO2% (BldA) [Mass fraction] 99 % Dr. Mati Augustine Work Phone: [facility] Work Phone: 03-10-2022 15:46-0400 Systolic blood pressure 122 mm[Hg] Dr. Mati Augustine Work Phone: [facility] Work Phone: 01-21-2022 14:38-0400 Body mass index (BMI) [Ratio] 36.3 kg/m2 Dr. Mati Augustine Work Phone: [facility] Work Phone: 01-21-2022 14:38-0400 Body temperature 97.6 [degF] Dr. Mati Augustine Work Phone: [facility] Work Phone: 01-21-2022 14:38-0400 Body weight 90.[address] Mati Augustine Work Phone: [facility] Work Phone: 01-21-2022 14:38-0400 Diastolic blood pressure 56 mm[Hg] Dr. aMti Augustine Work Phone: [facility] Work Phone: 01-21-2022 14:38-0400 Heart rate 102 /min Dr. Mati Augustine Work Phone: [facility] Work Phone: 01-21-2022 14:38-0400 Respiratory rate 17 /min Dr. Mati Augustine Work Phone: [facility] Work Phone: 01-21-2022 14:38-0400 SaO2% (BldA) [Mass fraction] 98 % Dr. Mati Augustine Work Phone: [facility] Work Phone: 01-21-2022 14:38-0400 Systolic blood pressure 122 mm[Hg] Dr. Mati Augustine Work Phone: [facility] Work Phone: 01-21-2022 14:38-0400 Body mass index (BMI) [Ratio] 36.3 kg/m2 Dr. Mati Augustine Work Phone: [facility] Work Phone: 01-21-2022 14:38-0400 Body temperature 97.6 [degF] Dr. Mati Augustine Work Phone: [facility] Work Phone: 01-21-2022 14:38-0400 Body weight 90.[address] Mati Augustine Work Phone: [facility] Work Phone: 01-21-2022 14:38-0400 Diastolic blood pressure 56 mm[Hg] Dr. Mati Augustine Work Phone: [facility] Work Phone: 01-21-2022 14:38-0400 Heart rate 102 /min Dr. Mati Augustine Work Phone: [facility] Work Phone: 01-21-2022 14:38-0400 Respiratory rate 17 /min Dr. Mati Augustine Work Phone: [facility] Work Phone: 01-21-2022 14:38-0400 SaO2% (BldA) [Mass fraction] 98 % Dr. Mati Augustine Work Phone: [facility] Work Phone: 01-21-2022 14:38-0400 Systolic blood pressure 122 mm[Hg] Dr. Mati Augustine Work Phone: [facility] Work Phone: 01-20-2022 16:14-0400 Body mass index (BMI) [Ratio] 35.9 kg/m2 Dr. Mati Augustine Work Phone: [facility] Work Phone: 01-20-2022 16:14-0400 Body temperature 97.8 [degF] Dr. Mati Augustine Work Phone: [facility] Work Phone: 01-20-2022 16:14-0400 Body weight 89.[address] Mati Augustine Work Phone: [facility] Work Phone: 01-20-2022 16:14-0400 Diastolic blood pressure 60 mm[Hg] Dr. Mati Augustine Work Phone: [facility] Work Phone: 01-20-2022 16:14-0400 Heart rate 107 /min Dr. Mati Augustine Work Phone: [facility] Work Phone: 01-20-2022 16:14-0400 Respiratory rate 16 /min Dr. Mati Augustine Work Phone: [facility] Work Phone: 01-20-2022 16:14-0400 SaO2% (BldA) [Mass fraction] 97 % Dr. Mati Augustine Work Phone: [facility] Work Phone: 01-20-2022 16:14-0400 Systolic blood pressure 104 mm[Hg] Dr. Mati Augustine Work Phone: [facility] Work Phone: 01-20-2022 16:14-0400 Body mass index (BMI) [Ratio] 35.9 kg/m2 Dr. Mati Augustine Work Phone: [facility] Work Phone: 01-20-2022 16:14-0400 Body temperature 97.8 [degF] Dr. Mati Augustine Work Phone: [facility] Work Phone: 01-20-2022 16:14-0400 Body weight 89.[address] Mati Augustine Work Phone: [facility] Work Phone: 01-20-2022 16:14-0400 Diastolic blood pressure 60 mm[Hg] Dr. Mati Augustine Work Phone: [facility] Work Phone: 01-20-2022 16:14-0400 Heart rate 107 /min Dr. Mati Augustine Work Phone: [facility] Work Phone: 01-20-2022 16:14-0400 Respiratory rate 16 /min Dr. Mati Augustine Work Phone: [facility] Work Phone: 01-20-2022 16:14-0400 SaO2% (BldA) [Mass fraction] 97 % Dr. aMti Augustine Work Phone: [facility] Work Phone: 01-20-2022 16:14-0400 Systolic blood pressure 104 mm[Hg] Dr. Mati Augustine Work Phone: [facility] Work Phone: 12-23-2021 07:58-0400 Body mass index (BMI) [Ratio] 35.1 kg/m2 Dr. Mati Augustine Work Phone: [facility] Work Phone: 12-23-2021 07:58-0400 Body temperature 98 [degF] Dr. Mati Augustine Work Phone: [facility] Work Phone: 12-23-2021 07:58-0400 Body weight 87.[address] Mati Augustine Work Phone: [facility] Work Phone: 12-23-2021 07:58-0400 Diastolic blood pressure 82 mm[Hg] Dr. Mati Augustine Work Phone: [facility] Work Phone: 12-23-2021 07:58-0400 Heart rate 96 /min Dr. Mati Augustine Work Phone: [facility] Work Phone: 12-23-2021 07:58-0400 Respiratory rate 14 /min Dr. Mati Augustine Work Phone: [facility] Work Phone: 12-23-2021 07:58-0400 SaO2% (BldA) [Mass fraction] 98 % Dr. Mati Augustine Work Phone: [facility] Work Phone: 12-23-2021 07:58-0400 Systolic blood pressure 120 mm[Hg] Dr. Mati Augustine Work Phone: [facility] Work Phone: 12-23-2021 07:58-0400 Body height 157.[address] Mati Augustine Work Phone: [facility] Work Phone: 12-23-2021 07:58-0400 Body mass index (BMI) [Ratio] 35.1 kg/m2 Dr. Mati Augustine Work Phone: [facility] Work Phone: 12-23-2021 07:58-0400 Body temperature 98 [degF] Dr. Mati Augustine Work Phone: [facility] Work Phone: 12-23-2021 07:58-0400 Body weight 87.[address] Mati Augustine Work Phone: [facility] Work Phone: 12-23-2021 07:58-0400 Diastolic blood pressure 82 mm[Hg] Dr. Mati Augustine Work Phone: [facility] Work Phone: 12-23-2021 07:58-0400 Heart rate 96 /min Dr. Mati Augustine Work Phone: [facility] Work Phone: 12-23-2021 07:58-0400 Respiratory rate 14 /min Dr. Mati Augustine Work Phone: [facility] Work Phone: 12-23-2021 07:58-0400 SaO2% (BldA) [Mass fraction] 98 % Dr. Mati Augusitne Work Phone: [facility] Work Phone: 12-23-2021 07:58-0400 Systolic blood pressure 120 mm[Hg] Dr. Mati Augustine Work Phone: [facility] Work Phone: 12-01-2021 07:30-0500 Body mass index (BMI) [Ratio] 35.1 kg/m2 Dr. Mati Augustine Work Phone: [facility] Work Phone: 12-01-2021 07:30-0500 Body temperature 96.5 [degF] Dr. Mati Augustine Work Phone: [facility] Work Phone: 12-01-2021 07:30-0500 Body weight 87.[address] Mati Augustine Work Phone: [facility] Work Phone: 12-01-2021 07:30-0500 Diastolic blood pressure 98 mm[Hg] Dr. Mati Augustine Work Phone: [facility] Work Phone: 12-01-2021 07:30-0500 Heart rate 111 /min Dr. Mati Augustine Work Phone: [facility] Work Phone: 12-01-2021 07:30-0500 Respiratory rate 16 /min Dr. Mati Augustine Work Phone: [facility] Work Phone: 12-01-2021 07:30-0500 SaO2% (BldA) [Mass fraction] 99 % Dr. Mati Augustine Work Phone: [facility] Work Phone: 12-01-2021 07:30-0500 Systolic blood pressure 148 mm[Hg] Dr. Mati Augustine Work Phone: [facility] Work Phone: Encounters Encounter Date Encounter Type Care Provider Facility Start: 08-06-2025 End: 08-06-2025 ambulatory Trevor Sanjay Facility:[facility] Start: 07-26-2025 ambulatory [facility] Facility: [facility] Start: 07-26-2025 End: 07-26-2025 ambulatory Trevor Lanier Facility:[facility] Start: 07-19-2025 End: 07-19-[address] Trevor Lanier MD -[facility] Work Phone: Start: 07-19-2025 End: 07-19-[address] Mati Augustine DO Work Phone: -[facility] Start: 07-19-2025 End: 07-19-2025 Patient encounter procedure Rob HERNANDEZ -[facility] Work Phone: Start: 07-19-2025 End: 07-19-[address] Mati Augustine DO Work Phone: -[facility] Start: 07-19-2025 Registered Referred HEALTH RIS K ASSESSMENT -Employee Health Start: 07-19-2025 ambulatory Mati Augustine [facility] y:[facility] Start: 07-19-2025 Registered Recurring EMPLOYEE HEALTH -Employee Health - Other Staff Start: 06-05-2025 End: 06-05-[address] Trevor Lanier MD -[facility] Work Phone: Start: 06-05-2025 End: 06-05-[address] Mati Augustine DO Work Phone: -[facility] Start: 06-05-2025 End: 06-05-2025 ambulatory Trevor Lanier Facility:[facility] Start: 05-21-2025 End: 05-21-2025 E-mail encounter from caregiver Paige Huddleston ACID ETCH OPERATOR Work Phone: [facility] Start: 05-21-2025 End: 05-21-2025 Patient encounter procedure Paige Huddleston APRN.ACID ETCH OPERATOR Work Phone: [facility] Comment on above: New medication Start: 05-16-2025 End: 05-16-[address] Mati Augustine DO Work Phone: -Laboratory Start: 05-16-2025 End: 05-16-2025 Patient encounter procedure Rob HERNANDEZ -Laboratory Work Phone: Start: 05-16-2025 End: 05-16-2025 Patient encounter procedure Rob HERNANDEZ -[facility] Work Phone: Start: 05-16-2025 End: 05-16-[address] Mati Augustine DO Work Phone: -[facility] Start: 05-16-2025 End: 05-16-2025 ambulatory Mati Augustine Facility:[facility] Start: 05-07-2025 End: 05-07-2025 Patient encounter procedure Fabrizio Ambrocio MD Work Phone: [facility] Comment on above: Intracranial meningi mei (HCC) (Primary Dx) Start: 05-07-2025 End: 05-07-2025 ambulatory FABRIZIO AMBROCIO Facility:[facility] Start: 04-30-2025 ambulatory PAIGE HUDDLESTON Facility :[facility] Start: 04-30-2025 End: 04-30-2025 Subsequent hospital visit by physician [employer] (I-Stat/1.5t) Work Phone: Radiology Comment on above: Intracranial meningi mei (HCC) [D32.0] Start: 04-09-2025 End: 04-09-2025 Patient encounter procedure Fabrizio Ambrocio MD Work Phone: [facility] Comment on above: Intracranial meningi mei (HCC) (Primary Dx) Start: 04-09-2025 End: 04-09-2025 ambulatory FABRIZIO AMBROCIO Facility:[facility] Start: 04-02-2025 End: 04-02-[address] Mati Mccartney DO -[facility] Work Phone: Start: 04-02-2025 End: 04-02-[address] Mati Augustine DO Work Phone: -[facility] Start: 03-22-2025 End: 03-22-2025 Patient encounter procedure Fabrizio Ambrocio MD Work Phone: [facility] Comment on above: Intracranial meningi mei (HCC) (Primary Dx) Start: 03-22-2025 End: 03-22-2025 ambulatory FABRIZIO AMBROCIO Facility:[facility] Start: 03-01-2025 End: 03-09-2025 Evaluation and management of inpatient OLIVE YANG Facility:[facility] Start: 02-28-2025 Non-patient / Non-visit Dr. Esteban santiago MD -[facility] Work Phone: Start: 02-27-2025 Non-patient / Non-visit Dr. Godwin almaraz DO -[facility] Work Phone: Start: 02-27-2025 ambulatory Mati Augustine Facilit y:[facility] Start: 02-27-2025 End: 02-28-2025 Evaluation and management of inpatient Dr. Godwin Lynch DO -[facility] Work Phone: Start: 02-27-2025 End: 02-28-[address] Mati Augustine DO Work Phone: [facility] Work Phone: Start: 02-27-2025 End: 02-27-[address] Trevor Lanier MD -Cat Scan [facility] Work Phone: Start: 02-26-2025 End: 02-27-[address] [facility] Start: 02-19-2025 End: 02-19-2025 Clinical Support Leatha Guerrero Work Phone: [facility] Comment on above: GRAYSON (generalized anx iety disorder); Major depressive disorder, recurrent episode, moderate (HCC); PTSD (post-traumatic stress disorder) Start: 02-06-2025 End: 02-06-[address] Mati Mccartney DO -[facility] Work Phone: Start: 02-06-2025 End: 02-06-2025 ambulatory Mati Augustine Facility:[facility] Start: 01-26-2025 End: 01-26-[address] Briseida Starks DO -Laboratory Work Phone: Start: 01-26-2025 End: 01-26-2025 ambulatory Briseida Starks Facility:[facility] Start: 01-15-2025 End: 01-15-[address] Mati Augustine DO Work Phone: [facility] Work Phone: Start: 01-15-2025 End: 01-15-[address] Trevor Lanier MD -Laboratory Work Phone: Start: 01-15-2025 End: 01-15-2025 ambulatory Trevor Lanier Facility:[facility] Start: 01-11-2025 End: 01-11-[address] Trevor Lanier MD -[facility] Work Phone: Start: 01-11-2025 End: 01-11-2025 ambulatory Trevor Lanier Facility:[facility] Start: 01-05-2025 End: 01-05-[address] Trevor Lanier MD -[facility] Work Phone: Start: 01-05-2025 End: 01-05-2025 ambulatory Trevor Lanier Facility:[facility] Start: 12-25-2024 End: 12-25-[address] Mati Mccartney DO -[facility] Work Phone: Start: 12-25-2024 End: 12-25-2024 ambulatory Mati Augustine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 Department [address] [place] [address] History Physical Exam 07/26/25 1033 MR#: [id number] Acct: [id number] Name: SIERRA CORREA Rep #: [id number] : 1970 54 From: Trevor Lanier MD PCP: Dr. Mati Augustine, DO Status:[facility] Location: [place] [address] History and Physical Date of Admission: 07/26/25 [facility] [address] [place] [address] OFFICE VISIT Date of Service: 07/19/25 MR#: [id number] Acct: [id number] Name: SIERRA CORREA Rep #: [id number] : 1970 Provider: Dr. Trevor Lanier MD Age/Sex: 54/F Location: [facility] Status: Signed Intake Vital Signs 06/05/2512:51 07/19/2513:04 07/19/2514:27 Height 5 ft 2 in 5 ft 2 in 5 ft 2 in Weight: 198 lb 6 oz 198 lb BMI 36.3 36.2 BP 124/70 H 97/66 Blood Pressure Location Lt brachial Rt brachial Position Sitting Sitting Respiration 16 16 Pulse 107 H Pulse Source Monitor Temp 97 F L Temp Source Temporal Pulse Oximetry (%) 99 97 Oxygen Delivery Method room air room air Intake Visit Reasons: discuss thyroid lobectomy Chief Complaint: discuss thyroid surgery Bobbin Sorter Required: No Is patient in pain?: No Allergies clindamycin Allergy (Severe, Verified 07/19/25 14:28) burning watery eyes Sulfa (Sulfonamide Antibiotics) Allergy (Severe, Verified 07/19/25 14:28) Hives erythromycin base Allergy (Verified 07/19/25 14:28) eye redness, watering, swelling Have you fallen in the past year?: No PFSH Medical History Alcohol abuse Kidney disease [...] History current occupational status: employed current occupation: [employer] Smoking Status: Unknown if ever smoked alcohol [...] thyroid nodules and is status post FNA 06/05/2025. She was last seen 06/05/2025. She shares that following the biopsy (including aspiration) there was a smidge of a difference with her symptoms and she goes on to state that for 3 to 4 days she felt really good, however, her symptoms have now returned. She denies any recent health updates but does report starting a new job. Below is recapitulated from patient's prior visit for ease of review: Patient is a 54-year-old female who established with me for a diagnosis of multiple thyroid nodules and is status post FNA 01/21/2023. Her last visit 01/11/2025. Unfortunately during her workup for compressive symptoms she was found to demonstrate evidence of a possible pulmonary embolism as well as a brain mass. Repeat testing did not confirm the presence of a pulmonary embolism, however, the brain (more content not included)... [facility] 07-19-2025 Progress note [facility] 07-19-2025 Progress note Note Date/Time July 19, 2025 1:46pm [facility] [address] [place] [address] [place] [address] OFFICE VISIT Date of Service: 07/19/25 MR#: [id number] Acct: [id number] Name: SIERRA CORREA Rep #: [id number] : 1970 Provider: DAVID Westfall Age/Sex: 54/F Location: [facility] Status: Signed Intake Vital Signs 05/16/25 13:57 06/05/25 12:51 07/19/25 13:04 07/19/25 13:27 Height 5 ft 2 in 5 ft 2 in 5 ft 2 in Weight: 206 lb 6 oz 198 lb 6 oz BMI 37.7 36.3 BP 117/79 124/70 H Blood Pressure Location Rt brachial Lt brachial Position Sitting Sitting Respiration 17 16 Pulse 82 107 H 90 Pulse Source Monitor Monitor Palpation Temp 97.2 F L 97 F L Temp Source Temporal Temporal Pulse Oximetry (%) 99 99 Oxygen Delivery Method room air room air Intake Visit Reasons: 1 month follow up Chief Complaint: fu Bobbin Sorter Required: No Accompanied by: Self Is patient in pain?: No Allergies clindamycin Allergy (Severe, Verified 07/19/25 12:50) burning & watery eyes Sulfa (Sulfonamide Antibiotics) Allergy (Severe, Verified 07/19/25 12:50) Hives erythromycin base Allergy (Verified 07/19/25 12:50) eye redness, watering, swelling Medications ?Medication ?Instructions ?Recorded ?Confirmed ?Type omeprazole magnesium 20 mg 20 mg PO BID #180 tabs 03/0407/19/25 Rx tablet,delayed release (Prilosec OTC) clobetasol 0.05 % topical ointment 1 applic topical DA SARAH PRN skin 12/05/23 07/19/25 History irritation multivitamin 1 tab PO QAM 12/11/24 History valacyclovir 500 mg tablet 500 mg PO DAILY #30 TABLETS 01/29/25 07/19/25 Rx echinacea 400 mg capsule 400 mg PO DAILY 02/27/25 History rosuvastatin 10 mg tablet 10 mg PO QHS 02/27/25 History triamterene 37.5 1 tab PO QAM #90 tabs 07/19/25 Rx mg-hydrochlorothiazide 25 mg tablet metoprolol succinate 50 mg 50 mg PO BID #120 TABLETS 0 05/09/25 07/19/25 Rx tablet,extended release 24 hr brexpiprazole 2 mg tablet (Rexulti) 2 mg PO DAILY #30 tabs 05/13/25 07/19/25 Rx escitalopram oxalate 20 mg tablet 20 mg PO DAILY #90 t abs 06/19/25 07/19/25 Rx (Lexapro) phentermine 37.5 mg tablet 37.5 mg PO QDAY #30 tabs 07/19/25 Rx (Adipex-P) Nurse's Note: 1 month follow up phentermine is helping with hunger [facility] Medical History Alcohol abuse Kidney disease GERD [...] History current occupational status: employed current occupation: [employer] Smoking Status: Unknown if ever smoked alcohol intake: current alcohol intake frequency: a few times a month Alcohol type: wine substance use type: does not use caffeine: Yes what type of physical activity do you participate in: walking and other details: rowing frequency: 1-2 times per week HPI HPI Chief Complaint: fu Details: SIERRA CORREA, is a 54 F who presents to the office today for 1 month f/u since starting the adipex. She states that she has been compliant with the medication. She has not side effects or tolerance issues since starting the medications. She has tried to work on her dietary intake at the same has not been able to resume intense exercise due to her previous surgery. Patient states is definitely has helped control the hunger limited. She has been again doing better job of her diet and as result she has seen approximately 8 pound weight loss ROS Const Constitutional: No body ache, excessive sweating, fatigue, fever(s), frequent falls, headache(s), snoring, weakness, weight change, sleep problems or change in appetite Eyes Eyes: No blurry vision, change in vision, eye pain or Light sensitivity ENT ENT: No abnormal hearing, ear or mastoid pain, tinnitus, nasal congestion, headache(s), neck pain or sore throat Resp Respiratory: No cough, shortness of breath, snoring or wheezing Cardio Cardiology: No chest pain at rest, chest pain with exertion, excessive sweating,shortness of breath, dyspnea on exertion, lightheadedness, orthopnea or palpitations Gastro GI: No abdominal pain, change in bowel habits, constipation, cramping, diarrhea,nausea/dyspepsia or vomiting Genitourinary-Female: No burning urination, painful urination, urinary incontinence, urinary frequency, blood in urine, abnormal periods or pelvic pain Musc Musculoskeletal: No abnormal gait, joint pain, back pain, limited range of motion, neck pain, numbness, stiffness, tingling or Arthritis Skin Skin: No dry skin, redness, lesions, itchy eyes, rash or wounds Neuro Neurology: No abnormal gait, abnormal hearing, abnormal speech, dizziness, weakness, frequent falls, headache(s), memory loss, numbness or tingling Psych Psychiatric: No anxiety, No change in appetite, No depression, No memory loss and No Thoughts of harming yourself/Others Endo Endocrine: No cold intolerance, excessive sweating, fatigue, flushing, heat intolerance, increased thirst/drinking, increased hunger or weight change Aller/Imm Allergy/Immunologic: No itchy eyes, seasonal allergy symptoms, hives or wheezing Min/Lymp Hematologic/Lymphatic: No easy bleeding, easy bruising or enlarged lymph nodes Exam Const General: cooperative, healthy appearing, comfortable and no acute distress Nutritional Appearance: overweight Orientation: alert, awake and oriented x3 Limitations: altered mental status [facility] Head: normocephalic and atraumatic Ears: hearing grossly normal bilaterally Resp Effort & Inspection: normal respiratory effort, able to speak in complete sentences, No symmetric chest movement, no audible wheezes and no cough Auscultation: Bilateral: Clear to Auscultation Cardio Rate: regular rate Rhythm: regular rhythm Heart Sounds: S1 normal, S2 normal and no murmurs Pulses: radial pulses present bilaterally 2+ Neuro General: patient alert, patient awake, patient oriented x3 and gait normal Cognition: normal cognition Speech: speech normal Gait: normal gait Extrem General: no edema Psych Appearance: grossly normal Mental Status: mental status grossly normal Mood: congruent mood Affect: normal affect Speech and Movement: speech and movement normal Attitude: cooperative Coding Level of Care Code Off vis,est,level 3 Diagnoses Weight gain R63.5 Assessment and Plan Assessment and Plan (1) Weight gain: Status: Acute Plan: Patient presents for follow-up since starting the Adipex. Again patient has been compliant with the medication. She has not had side effects or tolerance issues with this medication thus far. Blood pressure looks great today in the office. Her pulse initially was up at 107 however recheck after she had been inthere and glistening longer the pulse was at 90 bpm. Discussed with patient that this is definitely something that we need to monitor. We discussed the stimulant effects on blood pressure as well as pulses potentially. So this is something that I want her to be doing at home and keeping track of this. I can she needs to be seated or resting for 3 to 5 minutes before she checks these things. Feet flat on the ground. Arm resting at the level of her heart. Make sure she is drinking plenty fluids. She again has been doing a better job and needs to continue with a good dietary intake. It is a combination of all these things plus the medication that can help her lose the weight not just the medication alone. This note was generated with ArmorTextation software. It may contain incorrectwords, spelling, and punctuation that were not noted in checking the note beforesigning. Medications: Discontinued clonazepam (Klonopin) Discontinued Reason: By Stop Date 1 - 2 mg (1 - 2 x 1 mg) PO QHS 30 days PRN60 tabs 0RF panic attack(s) F41.0 - Panic disorder [episodic paroxysmal anxiety] Plan Details Goals & Barriers: Barriers Computer work 07/19/25 8958 <Electronically signed by Rob HERNANDEZ> Date _ Rob HERNANDEZ Cosigner Signature: Date (if applicable) CC: ~ [facility] Work Phone: 1(409) 938-309710-17-2025 Progress note Author Trevor Lanier [facility] Note Date/Time July 19, 2025 2 :59pm [facility] [address] [place], [place] [address] OFFICE VISIT Date of Service: 07/19/25 MR#: [id number] Acct: [id number] Name: SIERRA CORREA Rep #: [id number] : 1970 Provider: Dr. Noman Lanier MD Age/Sex: 54/F Location: [facility] Status: Signed Intake Vital Signs 06/05/25 12:51 07/19/25 13:04 07/19/25 14:27 Height 5 ft 2 in 5 ft 2 in 5 ft 2 in Weight: 198 lb 6 oz 198 lb BMI 36.3 36.2 BP 124/70 H 97/66 Blood Pressure Location Lt brachial Rt brachial Position Sitting Sitting Respiration 16 16 Pulse 107 H Pulse Source Monitor Temp 97 F L Temp Source Temporal Pulse Oximetry (%) 99 97 Oxygen Delivery Method room air room air Intake Visit Reasons: discuss thyroid lobectomy Chief Complaint: discuss thyroid surgery Bobbin Sorter Required: No Is patient in pain?: No Allergies clindamycin Allergy (Severe, Verified 07/19/25 14:28) burning & watery eyes Sulfa (Sulfonamide Antibiotics) Allergy (Severe, Verified 07/19/25 14:28) Hives erythromycin base Allergy (Verified 07/19/25 14:28) eye redness, watering, swelling Have you fallen in the past year?: No PFSH Medical History Alcohol abuse Kidney disease [...] History current occupational status: employed current occupation: [employer] Smoking Status: Unknown if ever smoked alcohol [...] thyroid nodules and is status post FNA 06/05/2025. She was last seen 06/05/2025. She shares that following the biopsy (including aspiration) there wasa smidge of a difference with her symptoms and she goes on to state that for 3to 4 days she felt really good, however, her symptoms have now returned. She denies any recent health updates but does report starting a new job. Below is recapitulated from patient's prior visit for ease of review: Patient is a 54-year-old female who established with me for a diagnosis of multiple thyroid nodules and is status post FNA 01/21/2023. Her last visit 01/11/2025. Unfortunately during her workup for compressive symptoms she was found to demonstrate evidence of a possible pulmonary embolism as well as a brain mass. Repeat testing did not confirm the presence of a pulmonary embolism, however, the brain mass was a true finding and patient was immediatelyevaluated at a tertiary center before ultimately undergoing craniectomy with excision of a benign meningioma. She states that she is now 13 weeks postop. She is pleased with her recovery. She continues to complain of swallowing difficulty with both food and drink. She denies any voice changes. She denies any new dry cough. Below is recapitulated from patient's prior visit for ease review: Patient is a 54-year-old female who established with hi for a diagnosis of multiple thyroid nodules [...] her swallowing difficulty she notes that it iscatching higher up. She denies any hoarseness. She denies any cough. Lastlyshe just that there is some increased tenderness of her gland from time to time. Outside of immediate concerns for her thyroid patient states that she has experienced a weight gain in response to changing around her antidepressants. Additionally she continues to feel fatigued. Lastly she notes that she has developed terrible hot flashes despite not having a period since 2020. Patient did go for repeat ultrasound imaging of her thyroid 01/05/2025. This identified some growth of her right sided thyroid nodule but it was rated not suspicious TI-RADS 2. ROS General General: Yes weight change and fatigue; No appetite, colon cancer, breast cancer or weakness HEENT HEENT: Yes difficulty swallowing and swollen glands; No eye injury, eye surgery or hoarseness Endo Endocrine: No thyroid disease, diabetes mellitus, thyroid cancer, Hair loss, heat intolerance or cold intolerance Skin Skin: No rash or changing moles Musc Musculoskeletal: No back problems, arthritis, rheumatoid arthritis, gout or joint pain Cardio Cardiovascular: Yes high blood pressure; No murmur, pacemaker, heart disease, atrial fibrillation, heart attack, heart stent, palpitations, shortness of breath with exertion or chest pain Psych Psychiatric: Yes depression and anxiety; No hearing voices Resp Respiratory: No shortness of breath, No sleep apnea, No cough, No COPD, No asthma, No emphysema and No wheezing Gastro Gastrointestinal: No abdominal pain, No nausea or vomiting, No diarrhea, No constipation, No blood in stool, No acid reflux, No hemorrhoids, No ulcers, No gallbladder problem and No black,tarry stools Min Hematologic: No blood thinners, No blood disorders, No bleeding, No anemia and No blood clots Neuro Neurologic: No numbness, No tingling and No weakness Exam Const General: cooperative and comfortable Orientation: alert, awake and oriented x3 Neck Other: Stable neck exam with mild tenderness on palpation. Assessment and Plan Assessment and Plan (1) Thyroid nodule: Status: Chronic Comment: Patient 54-year-old female with right TI-RADS 3 nodule that is significantly enlarged since prior biopsy 2 years ago. She also describes more compressive symptoms?particularly dysphagia. CT imaging of the neck does show some leftwarddeviation of the trachea and I shared with her I remain a little bit skeptical that her right sided thyroid nodule is causing enough esophageal compression to cause her the symptoms described. However, she has undergone EGD with dilation with no relief of symptoms and CT does seem to suggest that her anterior vertebral column is at least partially compressing the posterior esophagus. Therefore I reasoned that we could consider a right sided thyroid lobectomy to try to alleviate this compressive force. Patient is inclined to do so but giventhe interval growth we will proceed with repeat thyroid biopsy today. Procedurewas undertaken uncomplicated fashion and full details are given in the procedures section of this note. Update 07/19/2025: Patient is a 54-year-old female who presents for discussions around planned right thyroid lobectomy with isthmusectomy using intraoperative nerve monitoring after declaring compressive symptoms. Biopsy completed at her last visit was confirmed as a [place] 2 cytopathology designation. I spent thebulk of today's visit discussing the planned operation and its attendant risks?specifically those of recurrent laryngeal nerve injury and hypoparathyroidism. I shared how intraoperative nerve monitoring is used to minimize the risk for recurrent laryngeal nerve injury and how loupe magnification is employed to minimize both risks through identification of both the nerve and parathyroid glands. I shared that I would intend for this to be an outpatient procedure with some postop observation prior to discharge. I stressed the patient will need to limit activity in the first week following surgery to minimize her risk for postoperative bleeding. She acknowledges understanding. Plan: Right thyroid lobectomy for isthmusectomy using intraoperative nerve monitoring tentatively slated for 07/16/2025 (2) Dysphagia: Status: Chronic Comment: s/p egd and dilation w/o improvement. After aspirating for cellular material heaspirated the cystic component of the nodule and have asked patient to gauge hersymptomatic response with this intervention. Medications: Discontinued clonazepam (Klonopin) Discontinued Reason: By Stop Date 1 - 2 mg (1 - 2 x 1 mg) PO QHS 30 days PRN60 tabs 0RF panic attack(s) F41.0 - Panic disorder [episodic paroxysmal anxiety] Plan Details Goals & Barriers: Barriers Computer work Coding Level of Care Code Off vis,est,level 3 Diagnoses Thyroid nodule E04.1 Dysphagia R13.10 Clinical Quality Measures Falls Risk Screening/Assistive Devices Have you fallen in the past year?: No 07/19/25 8332 <Electronically signed by Trevor Lanier MD> Date _ Trevor Ponce Signature: Date (if applicable) CC: Dr. Mati Augustine, DO ~ [facility] Work Phone: 1(242) 618-854210-17-2025 Progress [facility] [address] [place] [address] [place] [address] OFFICE VISIT Date of Service: 07/19/25 MR#: [id number] Acct: [id number] Name: SIERRA CORREA Rep #: [id number] : 1970 Provider: DAVID Westfall Age/Sex: 54/F Location: [facility] Status: Signed Intake Vital Signs 05/16/25 13:57 06/05/25 12:51 07/19/25 13:04 07/19/25 13:27 Height 5 ft 2 in 5 ft 2 in 5 ft 2 in Weight: 206 lb 6 oz 198 lb 6 oz BMI 37.7 36.3 BP 117/79 124/70 H Blood Pressure Location Rt brachial Lt brachial Position Sitting Sitting Respiration 17 16 Pulse 82 107 H 90 Pulse Source Monitor Monitor Palpation Temp 97.2 F L 97 F L Temp Source Temporal Temporal Pulse Oximetry (%) 99 99 Oxygen Delivery Method room air room air Intake Visit Reasons: 1 month follow up Chief Complaint: fu Bobbin Sorter Required: No Accompanied by: Self Is patient in pain?: No Allergies clindamycin Allergy (Severe, Verified 07/19/25 12:50) burning & watery eyes Sulfa (Sulfonamide Antibiotics) Allergy (Severe, Verified 07/19/25 12:50) Hives erythromycin base Allergy (Verified 07/19/25 12:50) eye redness, watering, swelling Medications ?Medication ?Instructions ?Recorded ?Confirmed ?Type omeprazole magnesium 20 mg 20 mg PO BID #180 tabs 03/0407/19/25 Rx tablet,delayed release (Prilosec OTC) clobetasol 0.05 % topical ointment 1 applic topical DA SARAH PRN skin 12/05/23 07/19/25 History irritation multivitamin 1 tab PO QAM 12/11/24 History valacyclovir 500 mg tablet 500 mg PO DAILY #30 TABLETS 01/29/25 07/19/25 Rx echinacea 400 mg capsule 400 mg PO DAILY 02/27/25 History rosuvastatin 10 mg tablet 10 mg PO QHS 02/27/25 History triamterene 37.5 1 tab PO QAM #90 tabs 07/19/25 Rx mg-hydrochlorothiazide 25 mg tablet metoprolol succinate 50 mg 50 mg PO BID #120 TABLETS 0 05/09/25 07/19/25 Rx tablet,extended release 24 hr brexpiprazole 2 mg tablet (Rexulti) 2 mg PO DAILY #30 tabs 05/13/25 07/19/25 Rx escitalopram oxalate 20 mg tablet 20 mg PO DAILY #90 t abs 06/19/25 07/19/25 Rx (Lexapro) phentermine 37.5 mg tablet 37.5 mg PO QDAY #30 tabs 07/19/25 Rx (Adipex-P) Nurse's Note: 1 month follow up phentermine is helping with hunger [facility] Medical History Alcohol abuse Kidney disease GERD [...] History current occupational status: employed current occupation: [employer] Smoking Status: Unknown if ever smoked alcohol intake: current alcohol intake frequency: a few times a month Alcohol type: wine substance use type: does not use caffeine: Yes what type of physical activity do you participate in: walking and other details: rowing frequency: 1-2 times per week HPI HPI Chief Complaint: fu Details: SIERRA CORREA, is a 54 F who presents to the office today for 1 month f/u since starting the adipex. She states that she has been compliant with the medication. She has not side effects or tolerance issues since starting the medications. She has tried to work on her dietary intake at the same hasnot been able to resume intense exercise due to her previous surgery. Patient states is definitely has helped control the hunger limited. She has been again doing better job of her diet and as resultshe has seen approximately 8 pound weight loss ROS Const Constitutional: No body ache, excessive sweating, fatigue, fever(s), frequent falls, headache(s), snoring, weakness, weight change, sleep problems or change in appetite Eyes Eyes: No blurry vision, change in vision, eye pain or Light sensitivity ENT ENT: No abnormal hearing, ear or mastoid pain, tinnitus, nasal congestion, headache(s), neck pain or sore throat Resp Respiratory: No cough, shortness of breath, snoring or wheezing Cardio Cardiology: No chest pain at rest, chest pain with exertion, excessive sweating,shortness of breath, dyspnea on exertion, lightheadedness, orthopnea or palpitations Gastro GI: No abdominal pain, change in bowel habits, constipation, cramping, diarrhea,nausea/dyspepsia orvomiting Genitourinary-Female: No burning urination, painful urination, urinary incontinence, urinary frequency, blood in urine, abnormal periods or pelvic pain Musc Musculoskeletal: No abnormal gait, joint pain, back pain, limited range of motion, neck pain, numbness, stiffness, tingling or Arthritis Skin Skin: No dry skin, redness, lesions, itchy eyes, rash or wounds Neuro Neurology: No abnormal gait, abnormal hearing, abnormal speech, dizziness, weakness, frequent falls, headache(s), memory loss, numbness or tingling Psych Psychiatric: No anxiety, No change in appetite, No depression, No memory loss and No Thoughts of harming yourself/Others Endo Endocrine: No cold intolerance, excessive sweating, fatigue, flushing, heat intolerance, increased thirst/drinking, increased hunger or weight change Aller/Imm Allergy/Immunologic: No itchy eyes, seasonal allergy symptoms, hives or wheezing Min/Lymp Hematologic/Lymphatic: No easy bleeding, easy bruising or enlarged lymph nodes Exam Const General: cooperative, healthy appearing, comfortable and no acute distress Nutritional Appearance: overweight Orientation: alert, awake and oriented x3 Limitations: altered mental status HENMT Head: normocephalic and atraumatic Ears: hearing grossly normal bilaterally Resp Effort & Inspection: normal respiratory effort, able to speak in complete sentences, No symmetric chest movement, no audible wheezes and no cough Auscultation: Bilateral: Clear to Auscultation Cardio Rate: regular rate Rhythm: regular rhythm Heart Sounds: S1 normal, S2 normal and no murmurs Pulses: radial pulses present bilaterally 2+ Neuro General: patient alert, patient awake, patient oriented x3 and gait normal Cognition: normal cognition Speech: speech normal Gait: normal gait Extrem General: no edema Psych Appearance: grossly normal Mental Status: mental status grossly normal Mood: congruent mood Affect: normal affect Speech and Movement: speech and movement normal Attitude: cooperative Coding Level of Care Code Off vis,est,level 3 Diagnoses Weight gain R63.5 Assessment and Plan Assessment and Plan (1) Weight gain: Status: Acute Plan: Patient presents for follow-up since starting the Adipex. Again patient has been compliant with themedication. She has not had side effects or tolerance issues with this medication thus far. Blood pressure looks great today in the office. Her pulse initially was up at 107 however recheck after shehad been inthere and glistening longer the pulse was at 90 bpm. Discussed with patient that this is definitely something that we need to monitor. We discussed the stimulant effects on blood pressure as well as pulses potentially. So this is something that I want her to be doing at home and keeping track of this. I can she needs to be seated or resting for 3 to 5 minutes before she checks these things. Feet flat on the ground. Arm resting at the level of her heart. Make sure she is drinking plenty fluids. She again has been doing a better job and needs to continue with a good dietary intake. It is a combination of all these things plus the medication that can help her lose the weight not just the medication alone. This note was generated with ArmorTextation software. It may contain incorrectwords, spelling, and punctuation that were not noted in checking the note beforesigning. Medications: Discontinued clonazepam (Klonopin) Discontinued Reason: By Stop Date 1 - 2 mg (1 - 2 x 1 mg) PO QHS 30 days PRN60 tabs 0RF panic attack(s) F41.0 - Panic disorder [episodic paroxysmal anxiety] Plan Details Goals & Barriers: Barriers Computer work 07/19/25 1346 DAVID HERNANDEZ> Date _ Rob HERNANDEZ Cosigner Signature: Date (if applicable) CC: ~ [facility]08-05-2025 History of Present illness Narrative* Fabrizio Ambrocio MD - 05/07/2025 9:30 AM EDT Images from the original note were not included. NEUROSURGERY POST OP NOTE Dr. Fabrizio Ambrocio MD, FACS Date of visit: May 07, 2025 Patient Name: Ms.Connie Cira Patton Date of : 1970 Current Age: [age] year old MRN/E# [id number] Last Office Visit: 04/09/2025 CHIEF COMPLAINT: Patient [...] Ambrocio was notified of this change by adFreeq message on 03/14/2025. PRE-SURGICAL SYMPTOMS: Cognitive difficulty, blurry vision, mood swings, frontal headache, decreased sense of smell INCISION: Healed HISTORY OF PRESENT ILLNESS : The patient presents for a 8-week post operative visit with imaging (MRI B) for evaluation. This marcelo 54-year-old female with a PMHx of thyroid disease, obesity, anxiety who was seen for consult at [facility] on 03/01/2025. She reported that she saw her PCP for neck swelling and CT thyroid was obtained. Once completed this showed a brain mass and she was advised to present to the ED. She then endorsed a6-month history of difficulty with cognition, blurry vision, [...] denied any significant headache, visual changes, speech deficits,seizure activity, motor or sensory deficits. She felt [...] Neurological: Negative for dizziness, seizures, syncope, weakness, light- headedness, numbness (Negative for numbness in extremities.) and headaches. Hematological: Does not bruise/bleed easily. Psychiatric/Behavioral: The patient is not nervous/anxious. Negative for depression. PAIN EVALUATION 05/06/2025 1127 Pain Level: 5 Pain Location: Scalp Description: Itching;Numbness;Pressure;Pulsating;Stabbing;Throbbing Duration Amount of Time: 2 Duration Units: Weeks Frequency: Intermittent Intervention/Comfort measure: Cold;Massage;Positioning;Rocking/holding BP 111/75 Pulse 85 Resp 16 Ht 5' 2 (1.575 m) Wt 208 lb 12.4 oz (94.7 kg) SpO2 100% BMI38.19 kg/m PHYSICAL EXAM: Mental State : Alert. [...] This note has been partially generated using sourceasy, a speech recognition software program, and may contain errors including punctuation, grammar, spelling, gender, and inappropriate words or phrases that pertain to the system. Recording using Genterpret software for draft documentation of the visit was discussed with the patient/authorized high school admissions representative; all questions welcomed and answered. Patient/authorized high school admissions representative agreed to proceed [facility] NoteHNO ID: [id number] Author: FABRIZIO AMBROCIO MD Service: ? Author Type: Physician Type: Progress Notes Filed: 05/08/2025 08:12 Note Text: NEUROSURGERY POST OP NOTE Dr. Fabrizio Ambrocio MD, [facility] Date of visit: May 07, 2025 Patient Name: Ms.Connie Cira Patton Date of : 1970 Current Age: [age] year old MRN/E# [id number] Last Office Visit: 04/09/2025 CHIEF COMPLAINT: Patient [...] Ambrocio was notified of this change by adFreeq message on 03/14/2025. PRE-SURGICAL SYMPTOMS: Cognitive difficulty, blurry vision, mood swings, frontal headache, decreased sense of smell INCISION: Healed HISTORY OF PRESENT ILLNESS : The patient presents for a 8-week post operative visit with imaging (MRI B) for evaluation. This is a 54-year-old female with a PMHx of thyroid disease, obesity, anxiety who was seen for consult at [facility] on 03/01/2025. She reported that she [...] mouth once daily. triamterene/hydroc (more content not included)...[facility] 04-30-2025 History of Present illness Narrative* Keiko Hernandez, RT(R) - 04/30/2025 2:00 PM EDT Radiology Service Progress Note DATE OF SERVICE: [...] Assigned female at . status: : No status:NO. PATIENT RELEVANT IMPLANT DATA REVIEWED: Yes PATIENT PRESENTS WITH AN IMPLANTABLE OR ATTACHED UX LEAD: No ALLERGIES: Reviewed and unchanged CONTRAST ALLERGY: NO. EXAM: MRI - CONTRAST TYPE: GROUP II PERIPHERAL IV DATA: Ambulatory: A peripheral IV was started in the Right antecubital site with a Angio cath: 22 gauge. RADIOLOGY DEPARTMENT: MR; Exam(s) Completed: Head: Routine Brain. Aromatherapy Administered: No SIGNATURE: RT Mary(R) PATIENT NAME: Sierra Patton DATE: April 30, 2025 TIME: 1:47 PM documented in this encounterBethesda North Hospital07-29-2025 NoteHNO ID: [id number] Author: KEIKO HERNANDEZ RT(R) Service: ? Author Type: Technologist Type: Progress [...] PATIENT PRESENTS WITH AN IMPLANTABLE OR ATTACHED UX LEAD: No ALLERGIES: Reviewed and unchanged CONTRAST ALLERGY: NO. EXAM: MRI - CONTRAST TYPE: GROUP II PERIPHERAL IV DATA: Ambulatory: A peripheral IV was started in the Right antecubital site with a Angio cath: 22 gauge. RADIOLOGY DEPARTMENT: MR; Exam(s) Completed: Head: Routine Brain. Aromatherapy Administered: No SIGNATURE: RT Mary(R) PATIENT NAME: Sierra Patton DATE: April 30, 2025 TIME: 1:47 [facility]07-08-2025 History of Present illness Narrative* Fabrizio Ambrocio MD - 04/09/2025 10:00 AM EDT NEUROSURGERY POST OP NOTE Dr. Fabrizio Ambrocio MD, [facility] Date of visit: April 09, 2025 Patient Name: Ms.Connie Cira Patton Date of : 1970 Current Age: [age] year old MRN/E# [id number] Last Office Visit: 03/22/2025 CHIEF COMPLAINT: Patient [...] Ambrocio was notified of this change by adFreeq message on 03/14/2025. PRE-SURGICAL SYMPTOMS: Cognitive difficulty, [...] disease, obesity, anxiety who was seen at [facility] for consult on 03/01/2025. Patient stated [...] Neurological: Negative for dizziness, seizures, syncope, weakness, light- headedness, numbness (Negative for numbness in extremities.) and [...] right-handed. The incision site is well-healed. No focaldeficit was noted. I recommended a follow-up visit [...] This note has been partially generated using sourceasy, a speech recognition software program, and may contain errors including punctuation, grammar, spelling, gender, and inappropriate words or phrases that pertain to the system. documented in this encounterBethesda North Hospital07-08-2025 NoteHNO ID: [id number] Author: FABRIZIO AMBROCIO MD Service: ? Author Type: Physician Type: Progress Notes Filed: 04/09/2025 10:19 Note Text: NEUROSURGERY POST OP NOTE Dr. Fabrizio Ambrocio MD, [facility] Date of visit: April 09, 2025 Patient Name: Ms.Connie Cira Patton Date of : 1970 Current Age: [age] year old MRN/E# [id number] Last Office Visit: 03/22/2025 CHIEF COMPLAINT: Patient [...] Ambrocio was notified of this change by adFreeq message on 03/14/2025. PRE-SURGICAL SYMPTOMS: Cognitive difficulty, [...] disease, obesity, anxiety who was seen at [facility] for consult on 03/01/2025. 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 Work Phone: 1(709) 386-674607-01-2025 Evaluation note* Diagnosis Onset Date Resolution Status Admit Date Depression after menopause acute April 02, 2025 9:13am Chronic renal failure chronic Apr 9:13am Multiple thyroid nodules chronic April 02, 2025 9:13am Benign meningioma of brain resolved April 02, 2025 9:13am Bilateral lower extremity edema acute May 16 1:48pm Weight gain acute May 16, 2025 1:48pm Benign meningioma of brain resolved May 16, 2025 1:48pm Dysphagia chronic June 05, 2025 12:43pm Thyroid nodule chronic June 05, 2025 12:43pm Weight gain acute July 19, 2025 12:52pm Dysphagia chronic July 19, 2025 2:10pm Thyroid nodule chronic July 192024 2:10pm [facility] Work Phone: 1(229) 386-791106-20-2025 History of Present illness Narrative* Fabrizio Ambrocio MD - 03/22/2025 10:00 AM EDT NEUROSURGERY POST OP NOTE Dr. Fabrizio Ambrocio MD, FACS Date of visit: March 22, 2025 Patient Name: Ms.Connie Cira Patton Date of : 1970 Current Age: [age] year old MRN/E# [id number] Last Office Visit: Postop CHIEF COMPLAINT: Patient [...] Ambrocio was notified of this change by adFreeq message on 03/14/2025. PRE-SURGICAL SYMPTOMS: Cognitive difficulty, [...] disease, obesity, anxiety who was seen at [facility] for consult on 03/01/2025. Patient stated that she was having neck swelling so she saw her provider who ordered a CT thyroid. Once completed this showeda brain mass and she was advised to present to the ED. She reported a 6-month history of difficultywith cognition, blurry vision, decreased sense of smell and frontal headaches. Further workup was obtained with MRI brain. Once completed this confirmed an intracranial mass suspected to be a meningioma in the subfrontal area. Recommendation was to undergo surgical resection. She and her family agre ed and this was completed as noted above. [...] Neurological: Negative for dizziness, seizures, syncope, weakness, light- headedness, numbness (Negative for numbness in extremities.) and [...] who had an olfactory groove subfrontal meningioma andunderwent surgery 3 weeks ago and is here [...] This note has been partially generated using sourceasy, a speech recognition software program, and may contain errors including punctuation, grammar, spelling, gender, and inappropriate words or phrases that pertain to the system. documented in this encounterBethesda North Hospital06-20-2025 NoteHNO ID: [id number] Author: FABRIZIO AMBROCIO MD Service: ? Author Type: Physician Type: Progress Notes Filed: 03/22/2025 10:21 Note Text: NEUROSURGERY POST OP NOTE Dr. Fabrizio Ambrocio MD, [facility] Date of visit: March 22, 2025 Patient Name: Ms.Connie Cira Patton Date of : 1970 Current Age: [age] year old MRN/E# [id number] Last Office Visit: Postop CHIEF COMPLAINT: Patient [...] Ambrocio was notified of this change by adFreeq message on 03/14/2025. PRE-SURGICAL SYMPTOMS: Cognitive difficulty, [...] disease, obesity, anxiety who was seen at [facility] for consult on 03/01/2025. Patient stated [...] swelling, myalgias and neck (more content not included)...[facility]06-07-2025 NoteHNO ID: [id number] Author: KEIKO FOOTE APRN.ACID ETCH OPERATOR Service: Psychiatry Author Type: Nurse Practitioner Type: [...] and there are no obvious signs of this.[facility]06-07-2025 NoteHNO ID: [id number] Author: KATLYN FRANCOIS RN Service: Care Management [...] Physician Primary Care Physician Name/Phone: Mati Augustine, [facility] [phone] Additional Information: Dc held yesterday for pain control. Plan is Dc home today. No Skilled or CM needs. Family to provide transport. SIGNATURE: Katlyn Francois RN PATIENT NAME: Sirera Patton DATE: March 09, 2025 TIME: 9:31 [facility]06-07-2025 NoteHNO ID: [id number] Author: ALIYA REZA APRN.CNP Service: Neurosurgery Author [...] Therapy: Room Air IANDO: Date 03/08/25699 - 03/09/2565803/09/25699 - 03/10/25 0659 Shift 5334-0674 7881-6355 0155-3608 24 Hour Total 1011-1828 3571-6900 8609-7880 24 Hour Total INTAKE PO 240 240 [...] having BM's - D/c today DVT Prophylaxis: SQH Portions of text from this note were copied. All relevant information was reviewed and updated accordingly on 03/09/2025 SIGNATURE: Aliya Reza APRN.CNP PATIENT NAME: Sierra Patton DATE: March 09, 2025 TIME: 8:48 AM Pager: [phone] [facility] the [facility]06-06-2025 NoteHNO ID: [id number] Author: AXEL FITZPATRICK LISW Service: Care Management Author Type: Vessel Operator Type: Care Mgt Progress Note Filed: 03/08/2025 [...] Patton DATE: March 08, 2025 TIME: 1:01 [facility]06-05-2025 NoteHNO ID: [id number] Author: KATLYN FRANCOIS RN Service: Care Management [...] return home. Family to provide transport at [place]. CM to continue to follow. SIGNATURE: Katlyn Francois RN PATIENT NAME: Sierra Patton DATE: March 07, 2025 TIME: 12:31 [facility]06-05-2025 NoteHNO ID: [id number] Author: ALIYA REZA APRN.CNP Service: Neurosurgery Author [...] Therapy: Room Air IANDO: Date 03/06/25699 - 03/07/2559 03/07/25 07 - 03/08/25 0659 Shift 9388-2936 7155-4904 9314-9705 24 Hour Total 7236-9566 9132-4109 0298-7396 24 Hour Total INTAKE IV 2200 6353 138 2216 Volume (mL) (ceFAZolin iv piggyback 2 g in D5W (iso-osmotic) 100 mL (ANCEF)) 100 100 Volume (mL) (levETIRAcetam 500 mg in NaCl 0.9% 100 mL (KEPPRA)) 100 100 Volume (mL) (lactated ringers iv infusion) 3401 309 4781 Volume (mL) (lactated ringers iv infusion) 6243 360 5585 Volume (mL) (lactated ringers iv infusion) 250 451 701 Shift Total 2200 1863 365 3956 OUTPUT Urine 2600 966 689 3643 OR Urine Output 2600 150 2750 Output ( Indwelling Urinary Catheter 03/06/25 1000 Rucker 16 Fr) 475 325 800 Blood 50 50 Estimated Blood loss 50 50 Shift Total 2650 233 361 1382 Weight (kg) 90.3 90.3 92.3 92.3 92.3 [...] 54 year old f (more content not included)...[facility]06-04-2025 NoteHNO ID: [id number] Author: SILVIA MTZ PA-C Service: Neurosurgery Author Type: Physician Rn Staff Type: Plan of Care Filed: 03/06/2025 17:39 [...] March 06, 2025 TIME: 5:35 PM Pager: [phone] [facility] of the Lake [facility]06-04-2025 NoteHNO ID: [id number] Author: NATTY PATEL MD Service: Hospital Medicine [...] patient is ready for transfer to regular floor.[facility]06-04-2025 NoteHNO ID: [id number] Author: SERENA GIRON APRN.CRNA Service: Anesthesiology Author Type: Nurse Prison Guard Type: Anesthesia Procedure Notes Filed: 03/06/2025 10:10 Note Text: ANESTHESIOLOGY PROCEDURE NOTE PIV General Information Procedure Start Time/Medication Administration: 03/06/2025 10:09 AM Procedure End Time: 03/06/2025 10:09 AM Staffing DISC PAD GRINDING MACHINE FEEDER: Serena Giron APRN.DISC PAD GRINDING MACHINE FEEDER Performed by: BEN Preparation Sterility Preparation: hand hygiene performed prior to procedure, surgical cap used, mask used, skin prep agent completely dried prior to procedure Sterility Technique Not Completely Performed Due to Extreme Emergency: No Site Prep: Chloraprep Procedure Details Indication: need for IV access Needle Size/Type: 18 gauge angiocath Orientation: Left Location: Hand Imaging Guidance Used: No SIGNATURE: Serena Giron APRN.CRNA PATIENT NAME: Sierra Patton DATE: March 06, 2025 TIME: 10:09 AM CSN: [id number] Lady of the Lake [facility]06-04-2025 NoteHNO ID: [id number] Author: SEREAN GIRON APRN.CRNA Service: Anesthesiology Author Type: Nurse Prison Guard Type: Anesthesia Procedure Notes Filed: 03/06/2025 10:09 Note Text: ANESTHESIOLOGY PROCEDURE NOTE Airway General Information Procedure Start Time/Medication Administration: 03/06/2025 9:32 AM Procedure End Time: 03/06/2025 10:09 AM Patient location during procedure: OR Timeout Performed Pre-procedure: timeout performed Consent Obtained: Yes Patient identity confirmed: arm band, care produce team member and patient Staffing DISC PAD GRINDING MACHINE FEEDER: Serena Giron APRN.DISC PAD GRINDING MACHINE FEEDER Performed by: BEN Indications and Patient Condition Indications for airway [...] March 06, 2025 TIME: 10:09 AM CSN: [id number] Light [facility]06-04-2025 NoteHNO ID: [id number] Author: KATLYN FRANCOIS RN Service: Care Management [...] Patton DATE: March 06, 2025 TIME: 8:38 AM[facility]06-04-2025 NoteHNO ID: [id number] Author: MALIA FRYE PA-C Service: Neurosurgery Author Type: Physician Rn Staff Type: Progress Notes Filed: 03/06/2025 11:12 Note [...] Therapy: Room Air IANDO: Date 03/05/25699 - 03/06/2565803/06/25699 - 03/07/25658 Shift 3899-2500 8716-0432 7474-1964 24 Hour Total 0100-0240 8683-7980 7417-0002 24 Hour Total INTAKE IV 200 200 [...] March 06, 2025 TIME: 11:06 AM Pager: [phone] Lady of the Lake [facility]06-03-2025 NoteHNO ID: [id number] Author: RON BRUNO MD Service: Hospital Medicine Author Type: Physician Type: Progress Notes Filed: 03/05/2025 17:16 Note Text: Documentation Query Please clarify the diagnosis associated with he MRI findings: Cerebral Edema This document will become part of the patient's medical record.[facility]06-03-2025 NoteHNO ID: [id number] Author: RON BRUNO MD Service: Hospital Medicine Author Type: Physician Type: Progress Notes Filed: 03/05/2025 10:28 Note Text: DEPARTMENT OF HOSPITAL MEDICINE PROGRESS NOTE SERVICE DATE: 03/05/2025 SERVICE TIME: 10:24 AM Hospital Medicine/Primary Attending: Ron Bruno MD NIGHT AND WEEKEND COVERAGE: After 7pm please page [phone] SUBJECTIVE: Follow up for meningioma. No new [...] 10:24 AM PAGER/CONTACT #: My Pager. Page [phone] after 7PM, as my pager is off.[facility]06-02-2025 NoteHNO ID: [id number] Author: RON BRUNO MD Service: Hospital Medicine Author Type: Physician Type: Progress Notes Filed: 03/04/2025 12:25 Note Text: DEPARTMENT OF HOSPITAL MEDICINE PROGRESS NOTE SERVICE DATE: 03/04/2025 SERVICE TIME: 12:24 PM Hospital Medicine/Primary Attending: Ron Bruno MD NIGHT AND WEEKEND COVERAGE: After 7pm please page [phone] SUBJECTIVE: Follow up for Meningioma. No new [...] 1871 after 7PM, as my pager is off.[facility]06-02-2025 NoteHNO ID: [id number] Author: KATLYN FRANCOIS RN Service: Care Management Author Type: Registered Nurse Type: Care Mgt Progress Note Filed: 03/04/2025 09:24 Note Text: CARE MANAGEMENT PROGRESS NOTE SERVICE DATE: 03/04/2025 SERVICE TIME: 9:21 AM LOS: 3 days Needs Prior to Discharge: To Be Determined Chart reviewed,MRI reveals intracranial brain mass, meningioma. Plans for craniotomy with excision Tuesday, NSGY following. CM to continue to follow for needs. SIGNATURE: Katlyn Francois RN PATIENT NAME: Sierra Patton DATE: March 04, 2025 TIME: 9:21 AM[facility]06-01-2025 NoteHNO ID: [id number] Author: RON BRUNO MD Service: Hospital Medicine [...] 9:13 AM PAGER/CONTACT #: My Pager. Page [phone] after 7PM, as my pager is off.[facility]06-01-2025 NoteHNO ID: [id number] Author: FABRIZIO AMBROCIO MD Service: Neurosurgery Author [...] gave me verbal consent to proceed. Fabrizio Ambrocio, [facility]05-31-2025 NoteHNO ID: [id number] Author: MALIA FRYE PA-C Service: Neurosurgery Author Type: Physician Rn Staff Type: Progress Notes Filed: 03/02/2025 16:55 Note Text: Neurosurgery Progress Note SERVICE DATE: 03/02/2025 SUBJECTIVE: Called by RN for pt awakening from nap and repeating herself to her daughter and c/o halos around her eyes. On assessment all has resolved. She is currently c/o pain to the left pentecostalism. She denies dizziness but feels 'mildly woozy' [...] March 02, 2025 TIME: 4:42 PM Pager: [phone] [facility] of the Lake [facility]05-31-2025 NoteHNO ID: [id number] Author: RON BRUNO MD Service: Hospital Medicine Author Type: Physician Type: Progress Notes Filed: 03/02/2025 09:59 Note Text: DEPARTMENT OF HOSPITAL MEDICINE PROGRESS NOTE SERVICE DATE: 03/02/2025 SERVICE TIME: 9:58 AM Hospital Medicine/Primary Attending: Ron Bruno MD NIGHT AND WEEKEND COVERAGE: After 7pm please page [phone] SUBJECTIVE: Follow up for Mass. No new [...] 1871 after 7PM, as my pager is off.[facility]05-30-2025 NoteHNO ID: [id number] Author: KATLYN FRANCOIS RN Service: Care Management Author Type: Registered Nurse Type: Care Mgt Initial Assessment Filed: 03/01/2025 12:45 Note Text: CARE MANAGEMENT: ASSESSMENT AND DISCHARGE PLAN SERVICE DATE: March 01, 2025 SERVICE TIME: 12:39 PM PCP: Mati Augustine DO, DO Primary Contact: Extended Emergency Contact Information Primary Emergency Contact: Raghu Vasquez Mobile Relation: Significant other Admission Status: Inpatient Insurance Provider: [employer] PPO Discharge Planning requested by: Per Department Practice Potential Transition Plans To Be Determined Advance Directives Current Advance Directive: None Bulb Tester Attempted to Assist with AD Completion: Yes [...] Be able to go home, General wellness [place] of Choice Explained: [place] of [place] Given: No Reason Not Given: [...] Discharge Plan: Presents to the hospital from [place] due to an incidentally discovered bifrontal lobe [...] Patton DATE: March 01, 2025 TIME: 12:39 [facility]05-30-2025 NoteHNO ID: [id number] Author: RON BRUNO MD Service: Hospital Medicine Author Type: Physician Type: Progress Notes Filed: 03/01/2025 08:32 Note Text: Seen by my colleague earlier today. I introduced myself and answered questions. Reviewed the plan for the day. Will round fully tomorrow with nurse. Paged by RN that orders were missing. Had not released orders that were done properly by my colleague.[facility]05-30-2025 NoteHNO ID: [id number] Author: STEPH CALDERON RN Service: Nursing Author Type: Registered Nurse Type: Progress Notes Filed: 03/01/2025 07:40 Note Text: Pt received by this RN at 0000, vitals completed, admit screener completed, meds entered and Sound admit paged at 0100.[facility]05-29-2025 [facility] Medical Records Department [address] [place] [address] Discharge Summary 02/28/25 1850 MR#: [id number] Acct: [id number] Name: SIERRA PATTON Rep #: [id number] : 1970 54 From: Esteban Boss MD PCP: Dr. Mati Augustine, DO Status:DIS IN Location: [place] [id number] Providers Date of Admission: 02/27/25 Date of [...] Arrangement initiated to have patient transferred to [facility] With bed not being available decision was made to admit patient pending transfer ??? 02/28/2025; patient was transferred to [facility] once bed was obtained 2. Hypertension [...] 88.7 H, Lymph % (Auto) 8.1 L, [place] % (Auto) 1.8, Eos % (Auto) 0.0, [...] 80mg Discharge Plan Admission (more content not included)...[facility]05-29-2025 NoteProgram: Psychiatric Intensive Outpatient Program Current Service/Group: Intensive [...] after one session due to unforseen medical diagnosis.[facility] [id number] Progress note Author Esteban Boss [facility] Note Date/Time February 28, 2025 10:28 am [facility] Medical Records Department [address] [place] [address] Progress Note - Hospitalist 02/28/25 0959 MR#: [id number] Acct: [id number] Name: SIERRA PATTON Rep #:[id number] : 1970 54 From: Esteban Boss MD PCP: Dr. Mati Augustine, DO Status:AD IN Location: [place] [address] Reason for Visit Reason for Visit: Diagnoses [...] 88.7 H, Lymph % (Auto) 8.1 L, [place] % (Auto) 1.8, Eos % (Auto) 0.0, [...] of multiple small hepatic cysts. Reading Location: [place] [address] Physical Exam Narrative GENERAL: cooperative HEENT: Atraumatic; [...] Arrangement initiated to have patient transferred to [facility] With bed not being available decision [...] general surgery Charges/Coding Visit Charges Inpatient E&M: 49813 Subs Hosp L2 02/28/25 1028 <Electronically signed by Esteban Boss MD> Cosigner Signature (if applicable): CC: ~ Signed [facility] Work Phone: 1(747) 527-414505-29-2025 Progress note [facility] Medical Records Department [address] [place] [address] Progress Note - Hospitalist 02/28/25 0959 MR#: [id number] Acct: [id number] Name: SIERRA PATTON Rep #:[id number] : 1970 54 From: Esteban Boss MD PCP: Dr. Mati Augustine, DO Status:AD M IN Location: [place] [address] Reason for Visit Reason for Visit: Diagnoses [...] 88.7 H, Lymph % (Auto) 8.1 L, [place] % (Auto) 1.8, Eos % (Auto) 0.0, [...] of multiple small hepatic cysts. Reading Location: [place] [address] Physical Exam Narrative GENERAL: cooperative HEENT: Atraumatic; [...] Arrangement initiated to have patient transferred to [facility] With bed not being available decision [...] general surgery Charges/Coding Visit Charges Inpatient E&M: 04313 Subs Hosp L2 02/28/25 1028 Cosigner Signature (if applicable): CC: ~ Signed [facility]05-28-2025 History and physical note Author Godwin Lynch [facility] Note Date/Time February 27, 2025 6:52p m [facility] Medical Records Department [address] [place] [address] H&P Exam - Hospitalist 02/27/25 1847 MR#: [id number] Acct: [id number] Name: SIERRA PATTON Rep #:[id number] : 1970 54 From: Godwin Lynch DO PCP: Dr. Mati Augustine, DO Status:RE G ER Location: ED [facility] Date of Service: 02/27/25 Chief Complaint: Brain [...] of dexamethasone. And they reached out to [facility] with neurosurgery and the patient was excepted. However they do not have any readilyavailable beds of the hospital service at [facility] was contacted for admission until a bed becomes available at [facility]. Patient states that she has had some mild difficulties that she did notreally attribute to anything particular other than just getting older including occasional difficulty learning to spell common words but these would be transient and being forgetful at times but once again transient. Denied any weakness or any kind of visual changes. [facility] Medical History Chronic renal failure Trigger thumb [...] History current occupational status: employed current occupation: [employer] Smoking Status: Unknown if ever smoked alcohol [...] % (Auto) 69.1, Lymph % (Auto) 20.4, [place]% (Auto) 5.9, Eos % (Auto) 3.4, Baso [...] out. No evidence of hydrocephalus. Reading Location: [facility]-IR-1 Chest CTA 02/27/25 09:16 IMPRESSION: No evidence of pulmonary embolism. 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 Heterogeneous appearance of the thyroid. Findings suggestive of multiple small hepatic cysts. 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 [id number] frontal midline mass. Patient received 10 mg of IV dexamethasone in emergency room and will continue with 4 mg twice daily given the vasogenic edema. Patient is currently hemodynamically stable and [facility] [...] with SCDs. Charges/Coding Visit Charges Inpatient E&M: 95352 Init Hosp L2 02/27/25 1852 <Electronically signed by Godwin Lynch DO> Cosigner Signature (if applicable): CC: Dr. Mati Augustine DO; Dr. Godwin Lynch DO~ Signed [facility] Work Phone: 1(969) 766-851505-28-2025 Discharge summary Author Olive Yang [facility] Note Date/Time February 27, 2025 6:32p m [facility] Medical Records Department [address] [place] [address] Emergency Department Summary 02/27/25 MR#: [id number] Acct: [id number] Name: SIERRA PATTON Cira Rep #:[id number] : 1970 54 From: Olive Yang MD PCP: Dr. Mati Augustine, DO Status:RE G ER Location: ED ADDENDUM by Dr. Ron Hurley DO on 02/27/25 at 1832 Update: 1830 hrs. 27 Feb 2025 No wheezing at this time I reviewed the patient's ED course and the plan to transfer to [facility]. Unfortunately I am told by their transfer center that they will not have bed availability tonight. As it has been 6 hours since she was excepted I will speak with the hospitalist here regarding admission. She was noting nausea was given Zofran. 02/27/251831<Electronically signed by Ron Hurley DO> Cosigner Signature (if applicable): cc: Dr. Mati Augustine, ~* Signed HPI History of Present Illness Chief Complaint: Shortness of Breath Narrative Narrative: 54-year-old female past medical history of swelling of thyroid for the last 3 years was sent in by her surgeon, Dr. Trevor Lanier, for further imaging studies. In discussion [...] and vomiting. No exacerbating or alleviating factors. [facility] Medical History Chronic renal failure [...] History current occupational status: employed current occupation: [employer] Smoking Status: Unknown if ever smoked alcohol [...] care center. I discussed patient with the [facility] Hospital Transfer line, who states that she [...] % (Auto) 69.1 Lymph % (Auto) 20.4 [place] % (Auto) 5.9 Eos % (Auto) 3.4 [...] out. No evidence of hydrocephalus. Reading Location: [facility] Chest CTA 02/27/25 09:16 IMPRESSION: No evidence of pulmonary embolism. 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 Heterogeneous appearance of the thyroid. Findings suggestive of multiple small hepatic cysts. Reading Location: [facility] Discharge Plan Triage Chief Complaint: Shortness of [...] DO [Primary Care Provider] - Print Language: Bahamian Disposition Disposition: Acute Care Hospital Discharge Location: [facility] What to do if you have Problems For any increased pain, shortness of breath, bleeding, nausea or vomiting, chestpain, or any unexpected problems, contact your Primary Care Provider. Call [facility] ([phone]) or report to the closest Emergency Room. Call 911 if necessary. 02/27/25 3191 <Electronically signed by Olive Yang MD> Cosigner Signature (if applicable): CC: Dr. Mati Augustine DO ~ Signed [facility] Work Phone: 1(341) 474-870705-28-2025 History and physical note [facility] Medical Records Department [address] [place] [address] H&P Exam - Hospitalist 02/27/25 1847 MR#: [id number] Acct: [id number] Name: SIERRA PATTON Rep #:[id number] : 1970 54 From: Godwin Lynch [...] of dexamethasone. And they reached out to [facility] with neurosurgery and the patient was excepted. However they do not have any readilyavailable beds of the hospital service at [facility] was contacted for admission until a bed becomes available at [facility]. Patient states that she has had some mild difficulties that she did notreally attribute to anything particular other than just getting older including occasional difficulty learning to spell common words but these would be transient and being forgetful at times but once again transient. Denied any weakness or any kind of visual c hanges. [facility] Medical History Chronic renal failure Trigger thumb [...] History current occupational status: employed current occupation: [employer] Smoking Status: Unknown if ever smoked alcohol [...] % (Auto) 69.1, Lymph % (Auto) 20.4, [place]% (Auto) 5.9, Eos % (Auto) 3.4, Baso [...] out. No evidence of hydrocephalus. Reading Location: [facility] Chest CTA 02/27/25 09:16 IMPRESSION: No evidence of pulmonary embolism. 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 Heterogeneous appearance of the thyroid. Findings suggestive of multiple small hepatic cysts. 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 [id number] frontal midline mass. Patient received 10 mg of IV dexamethasone in emergency room and will continue with 4 mg twice daily given the vasogenic edema. Patient is currently hemodynamically stable [facility] [...] with SCDs. Charges/Coding Visit Charges Inpatient E&M: 82810 Init Hosp L2 02/27/251851 Cosigner Signature (if applicable): CC: Dr. Mati Augustine DO; Dr. Godwin Lynch DO~ Signed [facility]05-28-2025 Discharge summary [facility] Medical Records Department [address] [place] [address] Emergency Department Summary 02/27/25 MR#: [id number] Acct: [id number] Name: SIERRA PATTON Rep #:[id number] : 1970 54 From: Olive Yang MD PCP: Dr. Mati Augustine DO Status:RE G ER Location: ED ADDENDUM by Dr. Ron Hurley DO on 02/27/25 at 1832 Update: 1830 hrs. 27 Feb 2025 No wheezing at this time I reviewed the patient's ED course and the plan to transfer to [facility]. Unfortunately I am told by their transfer center that they will not have bed availability tonight. As it has been 6 hours since she was excepted I will speak with the hospitalist here regarding admission. She was noting nausea was given Zofran. 02/27/25 183 Cosigner Signature (if applicable): cc: Dr. Mati Augustine DO ~* Signed HPI History of Present Illness Chief Complaint: Shortness of Breath Narrative Narrative: 54-year-old female past medical history of swelling of thyroid for the last 3 years was sent in by her surgeon, Dr. Trevor Lanier, for further imaging studies. In discussion [...] states that she did not remember going [facility] or driving there the other day. She denies any headaches or nausea a nd vomiting. No exacerbating or alleviating factors. [facility] Medical History Chronic renal failure [...] History current occupational status: employed current occupation: [employer] Smoking Status: Unknown if ever smoked alcohol [...] care center. I discussed patient with the [facility] Transfer line, who states that she has been accepted and patient was discussed with haley goinsjoanna who is comfortable with medical admission. I [...] % (Auto) 69.1 Lymph % (Auto) 20.4 [place] % (Auto) 5.9 Eos % (Auto) 3.4 [...] out. No evidence of hydrocephalus. Reading Location: [facility] Chest CTA 02/27/25 09:16 IMPRESSION: No evidence of pulmonary embolism. 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 Heterogeneous appearance of the thyroid. Findings suggestive of multiple small hepatic cysts. Reading Location: [facility] Discharge Plan Triage Chief Complaint: Shortness of [...] DO [Primary Care Provider] - Print Language: Bahamian Disposition Disposition: Acute Care Hospital Discharge Location: [facility] What to do if you have Problems For any increased pain, shortness of breath, bleeding, nausea or vomiting, chestpain, or any unexpected problems, contact your Primary Care Provider. Call [facility] ([phone]) or report tothe closest Emergency Room. Call 911 if necessary. 02/27/25 1408 Cosigner Signature (if applicable): CC: Dr. Mati Augustine, ~ Signed [facility]05-28-2025 Radiology Diagnostic study note [facility] Imaging Services [address] [place], [place] [id number] CTA Chest W/WO Contrast MR#: [id number] Acct: [id number] Name: SIERRA PATTON Rep #: [id number] : 1970 F 54 From: Celestino Sanford MD PCP: Dr. Mati Augustine DO Status: RE G ER Study:CTA Chest W/WO Contrast Date of Exam: 02/27/25 Exam# [id number] Ordering Dr: Olive Yang MD PROCEDURE: CTA [...] of multiple small hepatic cysts. Reading Location: [place] [address] CC: Dr. Olive Yang MD; Dr. Mati Augustine DO ~ [place] Caulker: Signed [facility]05-28-2025 Radiology Diagnostic study note [facility] Imaging Services [address] [place] [address] Brain/Head W/WO Contrast MR#: [id number] Acct: [id number] Name: SIERRA PATTON Rep #: [id number] : 1970 F 54 From: Celestino Sanford MD PCP: Dr. Mati Augustine DO Status: RE [facility] Study:Brain/Head W/WO Contrast Date of Exam: 02/27/25 Exam# [id number] Ordering Dr: Olive Yang MD PROCEDURE: BRAIN/HEAD [...] out. No evidence of hydrocephalus. Reading Location: [place] [address] CC: Dr. Olive Yang MD; Dr. Mati Augustine DO ~ [place] Caulker: Signed [facility]05-28-2025 Radiology Diagnostic study note [facility] Imaging Services [address] [place] [address] Soft Tissue Neck WITH Contrast MR#: [id number] Acct: [id number] Name: SIERRA PATTON Rep #: [id number] : 1970 F 54 From: Fadia Duffy MD PCP: Dr. Mati Augustine DO Status: RE G CLMaddi Study:Soft Tissue Neck WITH Contrast Date of Exam: 02/27/25 Exam# [id number] Ordering Dr: Kenzie Lanier MD PROCEDURE: SOFT [...] dictation. Reading Location: [facility] CC: Dr. Mati Augustine DO; Dr. Trevor Lanier MD ~ [place] Caulker: Signed [facility]05-27-2025 NoteInterim History: This patient was seen for evaluation and treatment of her depressive disorder with anxiety complicated by PTSD. Her only physical complaint was some mild akathisia after recent increase of Rexulti to 2 mg daily. She presents today to begin the [facility] IOP. She has been referred by her outpatient therapist, ROBLES Franco. She reports no previous psychiatric hospitalizations. She has not participated in a [facility]/IOP program previously. She is presently prescribed escitalopram [...] patient is committed to participating in the [facility]al [facility]. She says she is looking forward to [...] with this. The patient will begin the [facility] IOP. 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 None Does patient have a Durable Power of Beet Flumer? Yes (Name) (Pt reported her significant other [...] for PTSD diagnostic Criteria Language Preferred Language: Bahamian Languages Spoken: Bahamian Presenting Problem(s) Reason for visit as reported [...] and made an appointment with Clinician for 02/19/25. Pt further reported Brie was once employed for [employer]. Pt described a lifetime history of anxiety, [...] were you homeless or living in a snf (including now)?: No Patient feels safe at [...] reported she was born and raised in [place]. Pt reported she was raised predominantly by [...] age, his dad is jumped off the [employer], so yeah he has lots of trauma.) [...] identify any impact on treatment) None reported Gnosticist/Spiritual Orientation (note if patient identifies any belief in higher power, methodist belief, or not. Identify any spiritual/methodist beliefs about suicide) Pt reported Wiccan. 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 Emotional & Behavioral Symptoms [...] additional crisis resources. 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 Diagnostic Impression (F41.1) GRAYSON (generalized anxiety disorder) [...] appointment with Clinician for today 02/19/25. Pt does not present a harm to [...] well as outpatient trauma psychotherapy through the [facility] in [place]. Pt also verbalized understanding to [...] surgical history on file. documented in this [facility]05-07-2025 Evaluation note* Diagnosis Onset Date Resolution [...] of brain resolved April 02, 2025 9:13am [facility] Work Phone: [phone] Evaluation note* Diagnosis Onset Date Resolution Status [...] of brain resolved April 02, 2025 9:13am Bilateral lower extremity edema acute May 16 1:48pm Weight gain acute May 16, 2025 1:48pm Benign meningioma of brain resolved May 16, 2025 1:48pm [facility] Work Phone: 1(750) 435-880003-11-2025 Evaluation note* Diagnosis Onset Date Resolution Status Admit Date Anemia chronic December 11 11:08am Lesion of spleen chronic December 112024 11:08am [facility] Work Phone: 1(698) 483-594603-11-2025 Evaluation note* Diagnosis Onset Date Resolution Status Admit Date Anemia chronic December 11 11:08am Lesion of spleen chronic December 112024 11:08am Depression after menopause acute December 25, 2024 8:26am Multiple thyroid nodules chronic January 11, 2025 8:09am [facility] Work Phone: 1(460) 726-245303-11-2025 Evaluation note* Diagnosis Onset Date Resolution Status [...] thyroid nodules chronic February 27, 2025 6:42pm [facility] Work Phone: 1(428) 704-356703-11-2025 Evaluation note* Diagnosis Onset Date Resolution Status [...] [facility] Work Phone: 1(531) 708-374803-05-2025 Radiology Diagnostic study note [facility] Imaging Services [address] [place], [place] [address] Abdomen WITH IV Contrast MR#: [id number] Acct: [id number] Name: SIERRA PATTON Rep #: [id number] : 1970 F 54 From: Celestino Sanford MD PCP: Dr. Mati Augustine, DO Status: RE G CLI Study:Abdomen WITH IV Contrast Date of Exam: 12/05/24 Exam# [id number] Ordering Dr: Yaniv Crawford MD PROCEDURE: ABDOMEN [...] use of iterative reconstruction technique). Reading Location: [id number] CC: Dr. Mati Augustine DO; Dr. Yaniv Crawford MD ~ [place] Caulker: Signed [facility]05-04-2024 Hospital Discharge instructions Patient Education 02/04/2024 08:08:10 AA Blank DI (CUSTOM) Result type:CT Forearm w/ Contrast Right Result date:February 04, 2024 7:02 EDT Result status:Auth (Verified) Result title:CT FOREARM W/ CONTRAST RIGHT Performed by:ROMULO JEFFERSON MD on February 04, 2024 7:02 EDT Cosigned by:VIVEK OLIVIA MD Verified by:ROMULO JEFFERSON MD on February 04, 2024 7:02 EDT Encounter info:[id number], [facility], Emergency, 02/04/2024 - Contributor system:Software 2000 [id number] ORIGINAL EXAMINATION: CT OF THE RIGHT FOREARM [...] 09/19/2006 Document Revised: 09/05/2013 Document Reviewed: 09/20/2014 [facility] Patient Information 2014 Pressflip. This information is not intended to replace [...] protect it from movement. You may use kenp-yhx-ahbvpbe ibuprofen or naproxen to treat pain and [...] or as advised by your healthcare provider [phone] [employer]. [address] [place] [address], [place] [address]. All rights reserved. This information is not intended as a substitute for professional medical care. Always follow yourhealthcare professional's instructions. Follow Up Care 02/04/2024 05:49:38 With:CHANCE CALVILLO MD, [facility], Vascular Service, Vascular Surgeons Address: [address] [facility] [place] [place] [address] [phone] When:3-7 days With:FARHAN LIMA MD Address: [facility] [address] [place] [phone] When:2-4 days With:MATI AUGUSTINE DO Address: [facility] [address] [facility] [place] [address] [phone] When:2-4 days [facility] 05-04-2024 Note Discharge Instructions Thank you for allowing [facility] [facility] to assist you with your healthcare needs. [...] Appointments Follow Up with CHANCE CALVILLO MD, [facility], Vascular Service, Vascular Surgeons When Within 3-7 days Where: [address] [facility] [place] [place] [address]- [phone] Follow Up with FARHAN LIMA MD When Within 2-4 days Where: [facility] [address] [place] [address] [phone] Follow Up with MATI AUGUSTINE DO When Within 2-4 days Where: [facility] [address] [place] [address] [phone] Allergies sulfa drug Medications Please ask your [...] February 04, 2024 7:02 EDT Encounter info: [id number], [place], Emergency, 02/04/2024 - Contributor system: Software 2000 [id number] ORIGINAL EXAMINATION: CT OF THE RIGHT FOREARM [...] 09/19/2006 Document Revised: 09/05/2013 Document Reviewed: 09/20/2014 [facility] Patient Information 2015 Pressflip. This information is not intended to replace [...] protect it from movement. You may use tanj-krw-knurjsa ibuprofen or naproxen to treat pain and [...] or as advised by your healthcare provider [phone] [employer]. [address] [place] [address], [place] [address]. All rights reserved. This information is not intended as a substitute for professional medical care. Always follow yourhealthcare professional's instructions. Additional Information VACCINATE! IT SAVES LIVES! Members of the community who have not yet received the COVID-19 vaccine and would like to receive it can visit one of [facility] vaccine clinics. There are many vaccine clinic locations within the [facility]. For locations and available times, please visit www.gettheshot.coronavirus.[place].gov/. It is important to note that some COVID mobile vaccine clinics are held outdoors and may be canceled in rainy or stormy conditions. To learn more about pediatric vaccinations (ages 5-11), we invite you to visit the [facility] webpage. https://www.[facility].org/pages/6694-Spkcv-Hxexrfhovga-Vjzgfbzhuq-Codki-Jhf stions.htmlTo learn more about the COVID-19 vaccine, we invite you to visit the CDC website for a list of frequently asked questions. https://www.cdc.gov/coronavirus/2019-ncov/vaccines/faq.html [facility] Patient Portal Access Instructions: Stay connected with your healthcare team and access your personal medical information anytime with the [facility] Patient Portal. If you would like a full copy of your medical records please contact the [facility] Medical Records Department Tuesday through Tuesday between 8a.m. and 4:30p.m. Please follow the directions below to access the portal: 1.Access the email account you provided upon registration to the hospital.2.Look for an invitation email from [facility].3.Open the email and access the invitation link: Accept Invitation to [facility]4.Fill in the required marinelli to create your account. Sign into www.[employer] with your username and password that you [...] you will allow to register on the [facility] Patient Portal for access to your information. You can also access the [facility] Patient Portal on the [employer] sindy. Simply click on Health Records under [employer] and then click on the [employer] logo. HOW TO SAFELY DISPOSE OF PRESCRIPTION [...] Call your local pharmacy or go to http://[email or web address]/3Q1Uw5e to find one close to you.3.Make use of household items: Use cat litter or old coffee grounds to dispose medications if other options arenot available. Mix your drugs with these household products, seal them in an airtight container andthrow it into the garbage. Call [facility]: [phone] to be sure your drugs can be [...] aware that I should contact my doctor. Patient/Education Officer Signature: Date/Time: Relationship to Patient: Witness Name/Signature: Date/Time: [facility] [id number] Note ORIGINAL EXAMINATION: CT OF THE RIGHT [...] Sign Date: 02/04/2024 7:49:04 AM Ordering Provider: [facility]03-20-2024 History and physical note Author Farhan Lima [facility] December 21, 2023 1:17pm Note Date/Time December 21, 2023 1:1 7pm [facility] Medical Records Department [address] [place] [address] History & Physical Exam 12/21/23 1316 MR#: [id number] Acct: [id number] Name: SIERRA PATTON Rep #:[id number] : 1970 53 From: Farhan Lima MD PCP: Dr. Mati Augustine, DO Status:RE [facility] Location: [place] [address]- HPI - General HPI Narrative SIERRA PATTON, is a 53 F who presents for right thumb volar A1 elena release.no changes to h and p. ok to proceed. right thumb marked. discussed rab, post opinstructions. no narcotics, otc meds and local anesthetic. ok for gentle ROM after, FU in office 2 days. MR#: [id number] Acct: [id number] Name: SIERRA PATTON Rep #: [id number] : 1970 Provider: Dr. Farhna Lima MD Age/Sex: 53/F Location: [facility] Status: Signed with Addenda ADDENDUM by Isela [...] Performing Provider: Farhan Lima MD Performing Location: [facility] Administered by: Farhan Lima MD on 11/08/23 13:51 Dose Route Admin Location Dispensed Lot Number Expiration Date ND Safety Leader 40 mg intra-articular BL thumbs 1 mL [id number] 03/03/24 8795-1714-53 [facility] Comments: bupivacaine 0.25% .5cc lot : [id number] exp : 11/03/23 ND : 0637-8472-72 Date cc: ~* Signed Intake Vital Signs [...] QHS #30 tabs 11/01/23 [Rx Confirmed 11/08/23] [facility] Medical History (Updated 11/08/23 @ 09:56 by [...] and the decisions made by me, Dr. Farhan Lima MD 11/08/23 0908. Part of today?s visit was documented by [...] I Coding Level of Care Code Attention Director Of Public Relations Diagnoses Trigger thumb of left hand M65.312 Trigger thumb of right hand M65.311 Comment 63609 and inject tendon x 2 Assessment and [...] the injection well without any noted complication. [place] a fluid wave distally. Red flag symptoms [...] the injection well without any noted complication. [place] afluid wave distally. Bandage placed. Red flag symptoms were discussed such as redness, swelling, discharge, drainage, pain worsens or if they have any concerns to present to the ED or to call the clinic immediately. (2) Trigger thumb of right hand: [facility] Medical History (Updated 12/13/23 @ 15:51 by [...] Augustine, DO; Dr. Farhan Lima MD~ Signed [facility] Work Phone: 1(481) 945-371603-20-2024 Procedure [facility] 07-18-2023 NotePap Smear Specimen AdequacyOctober 2022 1:32pmComment. Satisfactory for evaluation. Endocervical and/or squamous metaplasticcells (endocervical component)are present.[facility] INTER[facility]ACED A#[id number]. Vincent HospitalComment on above:Satisfactory for evaluation. Endocervical and/or squamous metaplasticcells (endocervical component)are present.07-18-2023 NotePap Smear Specimen AdequacyOctober 2022 12:32pmComment.Satisfactory for evaluation. Endocervical and/or squamous metaplasticcells (endocervical component)are present.[facility] INTER[facility]ACED A#[id number]. Vincent Hospital Comment on above:Satisfactory for evaluation. Endocervical and/or squamous metaplasticcells (endocervical component)are present.04-06-[address] [facility]11-09-2022 NotePap Smear Specimen AdequacyNovember 2021 4:30pmComment.Satisfactory for evaluation. Endocervical and/or squamous metaplasticcells (endocervical component)are present.[facility] INTER[facility]ACED A#[id number]. [facility] Hospital Work Phone: Comment on above:Satisfactory for evaluation. Endocervical and/or squamous metaplasticcells (endocervical component)are present.08-11-2022 NotePap Smear Specimen AdequacyNovember 2021 4:30pm Comment.Satisfactory for evaluation. Endocervical and/or squamous metaplasticcells (endocervical component)are present.[facility] INTER[facility]ED A#[id number]. [facility] Hospital Work Phone: Comment on above:Satisfactory for evaluation. Endocervical and/or squamous metaplasticcells (endocervical component)are present.08-11-2022 NotePap Smear Specimen AdequacyNovember 2021 4:30pm Comment.Satisfactory for evaluation. Endocervical and/or squamous metaplasticcells (endocervical component)are present.[facility] INTER[facility]ACED A#[id number]. [facility] Hospital Work Phone: Comment on above:Satisfactory for evaluation. Endocervical and/or squamous metaplasticcells (endocervical component)are present.Evaluation + Plan note No data available for this section [facility] Evaluation note* Diagnosis Onset Date Resolution Status Foreign body (FB) in soft tissue acute Hyperlipidemia chronic Hypertension chronic Foreign body (FB) in soft tissue acute Hyperlipidemia chronic Hypertension [facility] Work Phone: Evaluation note* Diagnosis Onset Date Resolution Status Foreign body (FB) in soft tissue acute Hyperlipidemia chronic Hypertension chronic Foreign body (FB) in soft tissue acute Hyperlipidemia chronic Hypertension chronic Foreign body (FB) in soft tissue acute Multiple thyroid nodules acu te Cardiac arrhythmia acute Emotional disorder chronic [facility] Work Phone: Evaluation note* Diagnosis Onset Date Resolution Status Foreign body (FB) in soft tissue acute Hyperlipidemia chronic Hypertension chronic Enlarged thyroid noneactive Foreign body (FB) in soft tissue acute Multiple thyroid nodules acu te Cardiac arrhythmia acute Emotional disorder [facility] Work Phone: Evaluation note* Diagnosis Onset Date Resolution Status Gynecologic exam normal acut e Localized hives acute Hypertension [facility] Work Phone: Evaluation noteNo assessment information available [facility] Work Phone: Evaluation note* Diagnosis Onset Date Resolution Status Multiple thyroid nodules acu te [facility] Work Phone: Evaluation note* Diagnosis Onset Date Resolution Status Multiple thyroid nodules acu te Change of voice acute Dysphagia acute Thyroid nodule acute Cardiac arrhythmia acute Numbness and tingling in right hand acute Thyroid nodule acute Trigger thumb of left hand a cute [facility] Work Phone: Evaluation note* Diagnosis Onset Date Resolution Status Multiple thyroid nodules acu te Change of voice acute Dysphagia acute Thyroid nodule acute Cardiac arrhythmia acute Numbness and tingling in right hand acute Thyroid nodule acute Trigger thumb of left hand a cute Bilateral trigger thumb acut e Cardiac arrhythmia acute Cervicogenic headache acute Elevated alkaline phosphatase level acute Hypertension chronic [facility] Work Phone: Evaluation note* Diagnosis Onset [...] acute Gammopathy acute Lesion of spleen acute [facility] Work Phone: Evaluation note* Diagnosis Onset Date Resolution Status Bilateral trigger thumb acut e Cardiac arrhythmia acute Cervicogenic headache acute Elevated alkaline phosphatase level acute Hypertension chronic Lesion of spleen acute Liver mass acute Gammopathy acute Lesion of spleen acute [facility] Work Phone: Evaluation note* Diagnosis Onset Date Resolution Status Lesion of spleen acute Liver mass acute Gammopathy acute Lesion of spleen acute Gammopathy acute Lesion of spleen acute Encounter for routine gynecological examination noneactive [facility] Work Phone: Evaluation note* Diagnosis Onset Date Resolution Status Encounter for routine gynecological examination noneactive Gammopathy acute Multiple thyroid nodules acu te Trigger thumb of left hand a cute Emotional disorder chronic [facility] Work Phone: Evaluation note* Diagnosis Onset Date Resolution Status Gammopathy acute Multiple thyroid nodules acu te Trigger thumb of left hand a cute Emotional disorder chronic Depression after menopause a cute Panic attacks acute Trigger thumb of left hand a cute Trigger thumb of right hand acute Depression after menopause a cute Gammopathy acute Chronic insomnia chronic [facility] Work Phone: Evaluation note* Diagnosis Onset [...] chronic Trigger thumb of right hand acute [facility] Work Phone: Evaluation note* Diagnosis Onset [...] acut e Multiple thyroid nodules chr onic [facility] Work Phone: Evaluation note* Diagnosis GRAYSON (generalized anxiety disorder) Generalized anxiety disorder Major depressive disorder, recurrent episode, moderate (HCC) Major depressive disorder, recurrent episode, moderate PTSD (post-traumatic stress disorder) Posttraumatic stress disorder [facility] Diagnosis Brain mass- Primary Unspecified condition of brain Brain mass Unspecified condition of brain Acute post-operative pain Obesity, Class II, BMI 35-39.9 Obesity, unspecified Hypertension, essential Unspecified essential hypertension Hyperlipidemia, mixed Mixed hyperlipidemia CLAUDETTE (acute kidney injury) Acute kidney failure, unspecified Intracranial meningioma (HCC)- Primary Benign neoplasm of cerebral meninges [facility] Diagnosis Brain mass- Primary Unspecified condition of brain Brain mass Unspecified condition of brain Acute post-operative pain Obesity, Class II, BMI 35-39.9 Obesity, unspecified Hypertension, essential Unspecified essential hypertension Hyperlipidemia, mixed Mixed hyperlipidemia CLAUDETTE (acute kidney injury) Acute kidney failure, unspecified Intracranial meningioma (HCC)- Primary Benign neoplasm of cerebral meninges documented in this encounter [facility] note* Diagnosis Brain mass- Primary Unspecified condition of brain Brain mass Unspecified condition of brain Acute post-operative pain Obesity, Class II, BMI 35-39.9 Obesity, unspecified Hypertension, essential Unspecified essential hypertension Hyperlipidemia, mixed Mixed hyperlipidemia CLAUDETTE (acute kidney injury) Acute kidney failure, unspecified Intracranial meningioma (HCC) Benign neoplasm of cerebral meninges documented in this encounter [facility] note* Diagnosis Brain mass- Primary Unspecified condition of brain Brain mass Unspecified condition of brain Acute post-operative pain Obesity, Class II, BMI 35-39.9 Obesity, unspecified Hypertension, essential Unspecified essential hypertension Hyperlipidemia, mixed Mixed hyperlipidemia CLUADETTE (acute kidney injury) Acute kidney failure, unspecified Intracranial meningioma (HCC)- Primary Benign neoplasm of cerebral meninges [facility] Author Godwin Lynch [facility] Note Date/Time February 27, 2025 6:52p m [facility] Medical Records Department [address] [place] [address] H&P Exam - Hospitalist 02/27/25 1847 MR#: [id number] Acct: [id number] Name: SIERRA PATTON Rep #:[id number] 6 : 1970 54 From: Godwin Lynch [...] of dexamethasone. And they reached out to [facility] with neurosurgery and the patient was excepted. However they do not have any readilyavailable beds of the hospital service at [facility] was contacted for admission until a bed becomes available at [facility]. Patient states that she has had some mild difficulties that she did notreally attribute to anything particular other than just getting older including occasional difficulty learning to spell common words but these would be transient and being forgetful at times but once again transient. Denied any weakness or any kind of visual changes. [facility] Medical History Chronic renal failure Trigger thumb [...] History current occupational status: employed current occupation: [employer] Smoking Status: Unknown if ever smoked alcohol [...] % (Auto) 69.1, Lymph % (Auto) 20.4, [place]% (Auto) 5.9, Eos % (Auto) 3.4, Baso [...] out. No evidence of hydrocephalus. Reading Location: [facility] Chest CTA 02/27/25 09:16 IMPRESSION: No evidence of pulmonary embolism. 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 Heterogeneous appearance of the thyroid. Findings suggestive of multiple small hepatic cysts. 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 [id number] frontal midline mass. Patient received 10 mg of IV dexamethasone in emergency room and will continue with 4 mg twice daily given the vasogenic edema. Patient is currently hemodynamically stable [facility] [...] with SCDs. Charges/Coding Visit Charges Inpatient E&M: 44910 Init Hosp L2 02/27/25 1852 <Electronically signed by Godwin Lynch DO> Cosigner Signature (if applicable): CC: Dr. Mati Augustine, DO; Dr. Godwin Lynch, DO~ Signed [facility] Work Phone: Reason for referral (narrative)No reason for referral information availableWBl[facility] Work Phone: Reubid for visit Narrative* MRI/CT (Routine) - Closed Specialty Diagnoses / Procedures Referred By Contac t Referred To Contact MR IMAGING Diagnoses Intracranial meningioma (HCC) Procedures MRI BRAIN WO/W IVCON MRI BRAIN BRAIN STEM W/O W/CONTRAST MATERIAL Paige Huddleston, CARDIAC CATH LAB RADIOLOGY TECHNOLOGIST.ACID ETCH OPERATOR [id number] [facility] [place] [address] Phone: tel: fax: [place] [phone] Referral ID Status Reason Start Date Expiration Date V isits Requested Visits Authorized [id number] Closed Auto-Generate d Referral 04/09/2025 05/04/2026 1 1 [facility] Chief Complaint and Reason for Visit [...] NO LABS REVIEW PATH FROM BIOPSY Annual (DISTILLER) Reason for Visit Lesion of spleen Liver mass Gammopathy Lesion of spleen Gammopathy Lesion of spleen Encounter for routine gynecological examination Chief Complaint Annual (DISTILLER) discuss anxiety meds SCREENING Reason for Visit [...] NO LABS - REVIEW CT December 11 11:08am 6 m fu December 25, 2024 [...] NO LABS - REVIEW CT December 11 11:08am 6 m fu December 25, 2024 [...] Benign meningioma of brain April 02 9:13am Reason for Visit Admit Date Depression after [...] Benign meningioma of brain April 02 9:13am Bilateral lower extremity edema May 032024 1:48pm Weight gain May 16, 2025 1: 48pm Benign meningioma of brain May 16, 2025 1:48pm Chief Complaint Admit Date 6 WK FU February 06, 2025 12:51p m DIFFICULTY SWALLOWING February 27, 2025 6:3 4am BRAIN MASS WITH VASOGENIC EDEMA January 6:42pm sob February 27, 2025 6:47p m BRAIN MASS WITH VASOGENIC EDEMA January 9:59am 2 M FU April 02, 2025 9:13a m 10 weeks since surgery. Swelling all ove r. Painful May 16, 2025 1:48pm REPEAT THYROID FNA June 05, 2025 12:43pm Chief Complaint Admit Date 2 M FU April 02, 2025 9:13a m 10 weeks since surgery. Swelling all ove r. Painful May 16, 2025 1:48pm REPEAT THYROID FNA June 05, 2025 12:43pm THYROID NODULE June 05, 2025 1:30pm Reason for Visit Admit Date Depression after menopause April 02 9:13am Chronic renal failure April 02, 2025 9:1 3am Multiple thyroid nodules April 02, 2025 9:13am Benign meningioma of brain April 02 9:13am Bilateral lower extremity edema May 032024 1:48pm Weight gain May 16, 2025 1: 48pm Benign meningioma of brain May 16, 2025 1:48pm Dysphagia June 05, 2025 12:43pm Thyroid nodule June 05, 2025 12:43pm Chief Complaint Admit Date 2 M FU April 02, 2025 9:13a m 10 weeks since surgery. Swelling all ove r. Painful May 16, 2025 1:48pm REPEAT THYROID FNA June 05, 2025 12:43pm THYROID NODULE June 05, 2025 1:30pm [employer] EM[employer] LABS July 19, 2025 1 0:22am 1 month follow up July 19, 2025 1 2:52pm discuss thyroid lobectomy July 19, 2025 2:10pm Pre-Surgical Testing July 26, 2025 9:17am PAT July 26, 2025 1 0:33am Reason for Visit Admit Date Depression after menopause April 02 9:13am Chronic renal failure April 02, 2025 9:1 3am Multiple thyroid nodules April 02, 2025 9:13am Benign meningioma of brain April 02 9:13am Bilateral lower extremity edema May 032024 1:48pm Weight gain May 16, 2025 1: 48pm Benign meningioma of brain May 16, 2025 1:48pm Dysphagia June 05, 2025 12:43pm Thyroid nodule June 05, 2025 12:43pm Weight gain July 19, 2025 1 2:52pm Dysphagia July 19, 2025 2 :10pm Thyroid nodule July 19, 2025 2 :10pm Family History No Family History Records Found Relationship Condition Age at Onset Recorded Date/T [...] grandmother Cerebrovascular accident (CVA) Unknown Advance Directives No Advanced Directives Records Found Advance Directive Response Recorded Date/ Time Living Will Yes December 05, 2023 2:08pm Power of Beet Flumer Yes December 04 2:08pm Advance Directive Response Recorded Date/ Time Name of Medical Power of Beet Flumer FRIEND December 05, 2023 3:08pm Living Will Yes December 05, 2023 3:08pm Power of Beet Flumer Yes December 04 3:08pm Advance Directive Response Recorded Date/ Time Name of Medical Power of Beet Flumer FRIEND December 05, 2023 3:08pm Living Will Yes January 03, 2024 8:09am Power of Beet Flumer Yes January 02 8:09am Advance Directive Response Recorded Date/ Time Living Will Yes January 03, 2024 8:09am Power of Beet Flumer Yes January 02 8:09am Advance Directive Response Recorded Date/ Time Living Will Yes January 03, 2024 8:09am Do you have a Healthcare Power of Beet Flumer? Yes January 03, 2024 8:09am Advance Directive Response Recorded Date/ Time Living Will Yes January 03, 2024 8:09am Do you have a Healthcare Power of Beet Flumer? Yes January 03, 2024 8:09am Do you have a Healthcare Power of Beet Flumer? No February 27, 2025 11:38am Advance Directive Response Recorded Date/ Time Living Will Yes January 03, 2024 8:09am Do you have a Healthcare Power of Beet Flumer? Yes January 03, 2024 8:09am Do you have a Healthcare Power of Beet Flumer? No February 27, 2025 7:22pm Date Activated [...] Do you have a Healthcare Power of Beet Flumer? No February 27, 2025 7:22pm Advance Directive Response Recorded Date/ Time Do you have a Healthcare Power of Beet Flumer? Yes July 22, 2025 3:26pm Summary Purpose Additional Source Comments Goals (unrecognized [...] , DO Primary Care Provider Active Dr. Trevor Lanier MD Attending Provider, Referring P rocyndi Active Team Status: Inactive Member Role Status Dates Dr. Mati Augustine , DO Primary Care Provider, Attend ing Provider Active Team Status: Inactive Member Role Status Dates Dr. Mati Augustine , DO Primary Care Provider, Referr ing Provider Active Dr. Trevor Lanier MD Attending Provider Active Team Status: [...] Augustine DO Primary Care Provider Active Dr. Tracey Tavera DO Attending Provider, Refe rring Provider Active Team Status: Active Member Role Status Dates Dr. Mati Augustine DO Primary Care Provider, Referr ing Provider Active Farhan Lima MD Attending Provider, Other Provider Active Team Status: Active Member Role Status Dates Dr. Mati Augustine DO Primary Care Provider Active Dr. Trevor Lanier MD Attending Provider, Referring P albinoder Active Team Status: Active Member Role Status [...] 05, 2025 End: January 05, 2025 Dr. Trevor Lanier MD Attending Provider Active Start: January 05, 2025 End: January 05, 2025 Dr. Trevor Lanier MD Referring Provider Active Start: January 05, 2025 End: January 05, 2025 Team Status: Inactive Member Role Status Dates Dr. Mati Augustine DO Primary Care Provider Active Start: January 11, 2025 End: January 11, 2025 Dr. Mati Augustine DO Referring Provider Active Start: January 11, 2025 End: January 11, 2025 Dr. Trevor Lanier MD Attending Provider Active Start: January 11, 2025 End: January 11, 2025 Team Status: Inactive Member Role Status Dates Dr. Mati Augustine DO Primary Care Provider Active Start: January 15, 2025 End: January 15, 2025 Dr. Trevor Lanier MD Attending Provider Active Start: January 15, 2025 End: January 15, 2025 Dr. Trevor Lanier MD Referring Provider Active Start: January [...] Provider Active Start: February 27, 2025 Dr. Trevor Lanier MD Attending Provider Active Start: February 27, 2025 Dr. Trevor Lanier MD Referring Provider Active Start: February 27, 2025 Team Status: Active Member Role Status Dates Dr. Mati Augustine DO Primary Care Provider Active Start: February 27, 2025 Olive Yang MD Emergency Provider Active Star t: February 27, 2025 Dr. Godwin Lynch , Admit Provider [...] 27, 2025 End: February 27, 2025 Dr. Trevor Lanier MD Attending Provider Active Start: February 27, 2025 End: February 27, 2025 Dr. Trevor Lanier MD Referring Provider Active Start: February 27, 2025 End: February 27, 2025 Marine Plumber Relationship Specialty Start Date End Date Mati [...] 05, 2025 End: January 05, 2025 Dr. Trevor Lanier MD Attending Provider Active Start: January 05, 2025 End: January 05, 2025 Dr. Trevor Laneir MD Referring Provider Active Start: January 05, 2025 End: January 05, 2025 Team Status: Inactive Member Role/Relationship Status Dates Dr. Mati Augustine DO Primary Care Provider Active Start: January 11, 2025 End: January 11, 2025 Dr. Mati Augustine DO Referring Provider Active Start: January 11, 2025 End: January 11, 2025 Dr. Trevor Lanier MD Attending Provider Active Start: January 11, 2025 End: January 11, 2025 Team Status: Inactive Member Role/Relationship Status Dates Dr. Mati Augustine DO Primary Care Provider Active Start: January 15, 2025 End: January 15, 2025 Dr. Trevor Lanier MD Attending Provider Active Start: January 15, 2025 End: January 15, 2025 Dr. Trevor Lanier MD Referring Provider Active Start: January [...] 27, 2025 End: February 27, 2025 Dr. Trevor Lanier MD Attending Provider Active Start: February 27, 2025 End: February 27, 2025 Dr. Trevor Lanier MD Referring Provider Active Start: February [...] April 02, 2025 End: April 02, 2025 Marine Plumber Relationship Specialty Start Date End Date Mati Augustine DO PCP - [facility] 02/12/16 Marine Plumber Relationship Specialty Start Date End Date Mati Augustine DO PCP - [facility] 02/12/16 Team Status: Inactive Member Role/Relationship [...] 27, 2025 End: February 27, 2025 Dr. Trevor Lanier MD Attending Provider Active Start: February 27, 2025 End: February 27, 2025 Dr. Trevor Lanier MD Referring Provider Active Start: February 27, 2025 End: February 27, 2025 Team Status: Inactive Member Role/Relationship Status Dates Dr. Mati Augustine DO Primary Care Provider Active Start: February 27, 2025 End: February 28, 2025 Olive Yang MD Emergency Provider Active Star t: February 27, 2025 End: February 28, 2025 Dr. Godwin Lynch , DO Admit Provider Active Star t: February 27, 2025 End: February 28, 2025 Dr. Godwin Lynch , DO Other Provider Active Star t: February [...] May 16, 2025 End: May 16, 2025 Marine Plumber Relationship Specialty Start Date End Date Mati Augustine DO PCP - General Family Medicine 02/12/16 Team Status: Inactive Member Role/Relationship Status Dates Dr. Mati Augustine DO Primary Care Provider Active Start: May 16, 2025 End: May 16, 2025 Rob Wayt PA, PA Attending Provider Active St art: May 16, 2025 End: May 16, 2025 DAVID Paiz Referring Provider Active St art: May 16, 2025 End: May 16, 2025 Team Status: Inactive Member Role/Relationship Status [...] 27, 2025 End: February 27, 2025 Dr. Trevor Lanier MD Attending Provider Active Start: February 27, 2025 End: February 27, 2025 Dr. Trevor Lanier MD Referring Provider Active Start: February [...] May 16, 2025 End: May 16, 2025 Team Status: Inactive Member Role/Relationship Status Dates Dr. Mati Augustine DO Primary Care Provider Active Start: May 16, 2025 End: May 16, 2025 DAVID Paiz Attending Provider Active St art: May 16, 2025 End: May 16, 2025 DAVID Paiz Referring Provider Active St art: May 16, 2025 End: May 16, 2025 Team Status: Inactive Member Role/Relationship Status Dates Dr. Mati Augustine DO Primary Care Provider Active Start: June 05, 2025 End: June 05, 2025 Dr. Mati Augustine DO Referring Provider Active Start: June 05, 2025 End: June 05, 2025 Dr. Trevor Lanier MD Attending Provider Active Start: June 05, 2025 End: June 05, 2025 Team Status: Active Member Role/Relationship Status Dates Dr. Mati Augustine DO Primary care physician Active Team Status: Inactive Member Role/Relationship Status Dates Dr. Mati Augustine DO Primary care physician Active Start: April 02, 2025 End: April 02, 2025 Dr. Mati Augustine DO Attending physician Active Start: April 02, 2025 End: April 02, 2025 Dr. Mati Augustine DO Referring Provider Active Start: April 02, 2025 End: April 02, 2025 Team Status: Inactive Member Role/Relationship Status Dates Dr. Mati Augustine DO Primary care physician Active Start: May 16, 2025 End: May 16, 2025 Dr. Mati Augustine DO Referring Provider Active Start: May 16, 2025 End: May 16, 2025 DAVID Paiz Attending physician Active S tart: May 16, 2025 End: May 16, 2025 Team Status: Inactive Member Role/Relationship Status Dates Dr. Mati Augustine DO Primary care physician Active Start: May 16, 2025 End: May 16, 2025 DAVID Paiz Attending physician Active S tart: May 16, 2025 End: May 16, 2025 DAVID Paiz Referring Provider Active St art: May 16, 2025 End: May 16, 2025 Team Status: Inactive Member Role/Relationship Status Dates Dr. Mati Augustine DO Primary care physician Active Start: June 05, 2025 End: June 05, 2025 Dr. Mati Augustine DO Referring Provider Active Start: June 05, 2025 End: June 05, 2025 Dr. Trevor Lanier MD Attending physician Active Start: June 05, 2025 End: June 05, 2025 Team Status: Inactive Member Role/Relationship Status Dates Dr. Mati Augustine DO Primary care physician Active Start: June 05, 2025 End: June 05, 2025 Dr. Trevor Lanier MD Attending physician Active Start: June 05, 2025 End: June 05, 2025 Team Status: Active Member Role/Relationship Status Dates Employee Health Attending physician Active Start : July 19, 2025 Team Status: Active Member Role/Relationship Status Dates Dr. Mati Augustine DO Primary care physician Active Start: July 19, 2025 Health Risk Assessment Attending physician Active Start: July 19, 2025 Health Risk Assessment Referring Provider Active Start: July 19, 2025 Team Status: Inactive Member Role/Relationship Status Dates DAVID Paiz Attending physician Active S tart: July 19, 2025 End: July 19, 2025 Dr. Mati Augustine DO Primary care physician Active Start: July 19, 2025 End: July 19, 2025 Dr. Mati Augustine DO Referring Provider Active Start: July 19, 2025 End: July 19, 2025 Team Status: Inactive Member Role/Relationship Status Dates Dr. Mati Augustine DO Primary care physician Active Start: July 19, 2025 End: July 19, 2025 Dr. Mati Augustine DO Referring Provider Active Start: July 19, 2025 End: July 19, 2025 Dr. Trevor Lanier MD Attending physician Active Start: July 19, 2025 End: July 19, 2025 Team Status: Inactive Member Role/Relationship Status Dates Dr. Mati Augustine DO Primary care physician Active Start: July 26, 2025 End: July 26, 2025 Dr. Trevor Lanier MD Attending physician Active Start: July 26, 2025 End: July 26, 2025 Dr. Trevor Lanier MD Referring Provider Active Start: July 26, 2025 End: July 26, 2025 Team Status: Active Member Role/Relationship Status Dates Dr. Mati Augustine DO Primary care physician Active Start: July 26, 2025 Dr. Trevor Lanier MD Attending physician Active Start: July 26, 2025 Dr. Trevor Lanier MD Referring Provider Active Start: July 26, 2025 Dr. Trevor Lanier MD Nurse Practitioner Active Start: July 26, 2025 INFORMATION SOURCE (unrecogn ized section and content) DATE CREATED AUTHOR 02/11/2024 [facility] ([place] DATE CREATED AUTHOR AUTHOR'S ORGANIZ ATION 03/30/2025 [facility] DATE CREATED AUTHOR AUTHOR'S ORGANIZ ATION 05/02/[address] [facility] DATE CREATED AUTHOR AUTHOR'S ORGANIZ ATION 05/09/2025 [facility] DATE CREATED AUTHOR AUTHOR'S ORGANIZ ATION 08/09/2025 [facility] Reason for Visit (unrecogniz ed section and [...] or prosecute any alcohol or drug abuse patient.[facility] the event this information is protected by the Federal Confidentiality of Alcohol and Drug Abuse Patient Records regulations: The Federal rules restrict any use of the information to criminally investigate or prosecute any alcohol or drug abuse patient.[facility] the event this information is protected by the Federal Confidentiality of Alcohol and Drug Abuse Patient Records regulations: The Federal rules restrict any use of the information to criminally investigate or prosecute any alcohol or drug abuse patient.[facility] the event this information is protected by the Federal Confidentiality of Alcohol and Drug Abuse Patient Records regulations: The Federal rules restrict any use of the information to criminally investigate or prosecute any alcohol or drug abuse patient.[facility] the event this information is protected by the Federal Confidentiality of Alcohol and Drug Abuse Patient Records regulations: The Federal rules restrict any use of the information to criminally investigate or prosecute any alcohol or drug abuse patient.[facility] FOR RECORDS PERTAINING TO PATIENTS WHO [...] BE BASED ON THE PRIMARY CLINICAL RECORDS. [facility] [employer] [facility]. provides no warranty or guarantee of the accuracy or completeness of information in this document.
[2025-08-26 08:21] LABS: Hematocrit 31.0 % (37-47); Hemoglobin 10.7 g/dL (12.0-15.0); Immature Granulocytes Count 0.040 X10^3/uL (0.0-0.0); Mean Corp Hgb Conc 34.5 g/dL (32-36); Mean Corpuscular Volume 83.3 fL (81-99); Mean Platelet Vol. 9.4 fl (6.2-12.0); NRBC Flagged by Analyzer 0 % (0-5); Platelet Count 282 K/mm3 (150-450); RBC Distribution Width CV 15.0 % (11.6-14.6); RBC Distribution Width SD 45.5 fl (35.1-43.9); Red Blood Count 3.72 M/mm3 (4.2-5.4); White Blood Count 6.4 K/mm3 (4.4-11.0)
[2025-08-26 09:06] LABS: AST(SGOT) 32 U/L (<=31); Alanine Aminotransfer ALT/SGPT 36 U/L (<=34); Albumin, Serum 4.4 g/dL (3.5-5.0); Alkaline Phosphatase 135 U/L (35-104); Anion Gap 13 (5-15); BUN 10 mg/dL (4-19); BUN/Creat Ratio 9.0 RATIO (10-20); Calcium,Total 9.5 mg/dL (7.6-11.0); Carbon Dioxide 24.6 mmol/L (21.0-32.0); Chloride 104 mmol/L (98-108); Ferritin 106 ng/mL (22-378); Free T3 3.0 pg/mL (2.18-3.98); Globulin 2.5 g/dL (2.2-4.2); Glucose 98 mg/dL (70-99); Iron 73 ug/dL (50-170); Potassium 3.5 mmol/L (3.3-5.1)
[2025-08-26 09:23] LABS: Cholesterol 160 mg/dL (<=200); Low Density Lipoprotein Calc. 77 mg/dL; Triglycerides 243 mg/dL; Very Low Density Lipoprotein 49 mg/dL (5-40); cholesterol:hdl ratio screen 3.75
== END | disposition home or self-care (01) ==
LOC: LAB 07:10
PROVIDERS: Physician Assistant; PCP Family Medicine; Referring Provider Surgery; Visit Provider Surgery
DX: D64.9 Anemia, unspecified (principal); Z90.09 Acquired absence of other part of head and neck; I10 Essential (primary) hypertension; E66.9 Obesity, unspecified
CPT/HCPCS: 36415; 80053; 80061; 82728; 83540; 84439; 84443; 84481; 85025

== ENCOUNTER → 2025-09-18 | Outpatient (CLI) | payer OTHER, SELFPAY ==
--- NOTE | 2025-09-18 06:55 | MRI_ITS ---
PROCEDURE: BRAIN W/WO CONTRAST 09/18/2025 REASON FOR EXAM: BRAIN MASS/HEAD SWELLING/VISION CHANGES TECHNIQUE: Procedure Code: [id number] Modality: MR Procedure: BRAIN W/WO CONTRAST Multiplanar and multisequence images were obtained. CONTRAST: [place] VOLUME: 17 mL COMPARISON: Correlation with CT of the head 01/2025 FINDINGS: Right frontal craniotomy for resection of anterior fossa mass. There is no nodular enhancement within the resection cavity to suggest residual or recurrent tumor. There is focal encephalomalacia and gliosis in the bilateral gyri recti and anterior orbital gyri. Additional foci of gliosis in the along the anterior right frontal lobe. No acute infarct or hemorrhage. No intracranial enhancing lesion. Nonspecific periventricular and subcortical T2/FLAIR white matter hyperintensities in the cerebral hemispheres likely reflect chronic microvascular changes. No extra-axial fluid collection. No herniation of the brain. The ventricular system and sulci/fissures are within expected limits of size and configuration for the patient's stated age. The basal cisterns are patent. The intracranial large vessel arterial flow voids are maintained. The mastoid air cells clear. The paranasal sinuses are predominately clear. The orbits are unremarkable. MRI/Brain W/WO Contrast IMPRESSION: 1. Right frontal craniotomy for resection of anterior fossa mass. No evidence of residual or recurrent tumor. 2. No acute infarct or hemorrhage. Reading Location: [id number]
--- OUTSIDE RECORDS SUMMARY | 2025-09-18 07:14 | XMS RPT_ITS | CCD ---
Author Organization [facility] Care Team Providers Care Sponge Maker Name Role Phone Dr. Mati Augustine Primary Care Provider Dr. Mati Augustine Attending Provider [phone] [...] LIZAMA, Dr. Mati Mccartney Primary Care Provider Sandoval LIZAMA, Dr. Mati Mccarteny Attending Provider [phone] Yolande PARKS, Dr. Murray Attending Provider Yolande PARKS, Dr. Murray Referring Provider Unavailable Primary Care Provider Unavailpérez Augustine DO, Dr. Mati Mccartney Primary Care Provider [phone] Ty PARKS, Dr. Purvis Attending Provider yT PARKS, Dr. Purvis Referring Provider Dr. Briseida Starks DO Attending Provider Dr. Briseida Starks DO Referring Provider Olive Yang MD Emergency Provider [phone] Godwin Lynch DO Admit Provider Dr. [...] [phone] Rob Atkinson Attending Physician Dr. Trevor Lanier MD Attending Physician Health, Employee Attending Physician Assessment, Health Risk Attending Physician Unav ailable Assessment, Health Risk Referring Provider Unava ilable Yolande PARKS, Dr. Murray Referring Provider Dr. Trevor Lanier MD Nurse Practitioner Brown, Mati R Referring Unavailable Yaniv Crawford Attending Unavailable Brown, Mati R Primary Care Unavailable Brown, Mati R Attending Unavailable Brown, Mati R Primary Care Unavailable Brown, Mtai R Referring Unavailable Trevor Lanier Attending Unavailable [...] Drug Allergy 2 burning & watery eyes [facility] Comment on above: otic (20 sources) Sulfonamides (Antibiotic); Translations: [SULFA (SULFONAMIDE ANTIBIOTICS)] Allergy to substance 6 [facility] (20 sources) Erythromycin Drug Allergy 2 Itching, Swelling [facility] Comment on above: Pt reacted to cream for eyes given for pink eye (1 source) Sulfonamide; Translations: [sulfa drugs] Drug allergy [facility] (1 source) Sulfonamides (Antibiotic) Propensity to adverse reactions 5 [facility] (7 sources) Genta-Gel; Translations: [GENTA-GEL] Propensity to adverse reactions to drug 6 Swelling [facility] (2 sources) Erythromycin; Translations: [ERYTHROMYCIN] Drug Allergy 5 [facility] Rep[facility] (1 source) Clindamycin Drug Allergy 5 [facility] Repository (1 source) Erythromycin Drug Allergy 5 [facility] Repository Medications Current Medications Medication Drug Class(es) [...] biopsy previously in the result unequivocally returning Mobile 2 this proposition should not be taken [...] biopsy previously in the result unequivocally returning Mobile 2 this proposition should not be taken [...] her last visit was confirmed as a Mobile 2 cytopathology designation. I spent the bulk [...] Surgery Visit Reporton 08-06 Surgery Visit Report [facility] [address] [place] [address] OFFICE VISIT Date of Service: 08/06/25 MR#: [id number] Acct: [id number] Name: SIERRA CORREA Rep #: [id number] : 1970 Provider: Dr. Trevor joiner MD Age/Sex: 54/F Location: [facility] Status: Signed Intake Vital Signs 07/26/25 09:51 [...] Diagnoses History of lobectomy of thyroid Z90.09 [facility] Medical History CKD (chronic kidney disease), stage [...] Hypertension High (more content not included)... Normal [facility] Discharge Instructionon 07-04 Discharge Instruction [facility] Medical Records Department [address] [place] [address] Instructions for Home/Discharge Instructions 07/26/25 1341 MR#: [id number] Acct: [id number] Name: SIERRA CORREA Rep #: [id number] : 1970 54 From: Trevor Lanier MD PCP: Dr. Mati Augustine, DO Status:REG [facility] Discharge Instructions Diet Discharge Diet: No restrictions [...] Care Provider: Mati Augustine Instructions Print Language: Guyanese Discharge Orders/Prescriptions Prescriptions: Continued omeprazole magnesium [Prilosec [...] 30 1RF Referrals / Follow Up: Mati Augustine DO [Primary Care Provider, Internal Medicine] Disposition Disposition (needs filled in before D/C Order can be placed): Home, Self Care 07/26/25 1601 Trevor Lanier MD CC: Dr. Mati Augustine DO Signed Normal [facility] MR/POSTOP.Eliza 07-26-2025 MR/POSTOP.[facility] Medical Records Department [address] [place] [address] Anesthesia Postop Eval I 07/26/25 1402 MR#: [id number] Acct: [id number] Name: SIERRA CORREA Rep #: [id number] : 1970 54 From: Young Hackett CRNA PCP: Dr. Mati Augustine, DO Status:REG SDC Y Race: C Location: [place] [address] Anesthesia: Postop Eval I Current Vital Signs Temperature: 97.8 F Pulse Rate: 80 Blood Pressure: 110/57 Respiratory Rate: 14 Pulse Ox: 94 Assessment Airway patent: Yes Spontaneous unlabored respirations: Yes nausea: No Vomiting: No Anesthesia Complication: No Fluid Hydration Crystalloid volume administer (ml): 1,500 Total IV fluid infused: 1,500 Progress Note Anesthesia document: Postop Eval 1 completed: Yes 07/26/25 1402 Date Young Hackett ANATOMY PROFESSOR Cosigner Signature: Date CC: Signed Normal [facility] MR/[id number] 07-26-2025 [facility] Medical Records Department [address] [place] [address] Anesthesia Postop Eval II 07/26/25 1530 MR#: [id number] Acct: [id number] Name: SIERRA CORREA Rep #: [id number] : 1970 54 From: Lili Garcia ANATOMY PROFESSOR PCP: Dr. Mati Augustine, DO Status:REG SDC Y Race: C Location: [place] [address] Anesthesia Postop Eval I Sum Postop Eval Completion status Anesthesia document: Postop Eval 1 completed: Yes Anesthesia Postop Eval I Summary Anesthesia Postop Eval I Summary: Anesthesia Postop Eval I: Assessment Summary Airway patent Yes 07/26/25 14:02 ANATOMY PROFESSOR.TNES Spontaneous unlabored Yes 07/26/25 14:02 ANATOMY PROFESSOR.TNES respirations Mental status nausea No 07/26/25 14:02 ANATOMY PROFESSOR.TNES Vomiting No 07/26/25 14:02 ANATOMY PROFESSOR.TNES Anesthesia Postop Eval I: Fluid Summary Crystalloid volume administer 1,500 07/26/25 14:02 ANATOMY PROFESSOR.TNES (ml) Colloids volume administered ( ml) Blood Product volume administered (ml) Total IV fluid infused 1,500 07/26/25 14:02 ANATOMY PROFESSOR.TNES Anesthesia Postop Eval I: Summary Notes Anesthesia Complication No 07/26/25 14:02 ANATOMY PROFESSOR.TNES Anesthesia Complication Comment: Post-operative progress note Anesthesia: Postop Eval II Evaluation Mental status: Awake Pain Level: 3 nausea: No Vomiting: No 07/26/25 1530 Date Lili basil ANATOMY PROFESSOR Cosigner Signature: Date CC: Signed Normal [facility] Operative Reporton 5 Operative Report [facility] Medical Records Department [address] [place] [address] Operative Report 07/26/25 1339 MR#: [id number] Acct: [id number] Name: SIERRA CORREA Rep #: [id number] : 1970 54 From: Trevor Lanier MD PCP: Dr. Mati Augustine, DO Status:[facility] Location: [facility] Operative Report (Standard) Operative Information Date of Procedure: 07/26/25 Pre-Operative Diagnosis: Right thyroid nodules with compressive symptoms Post-Operative Diagnosis: Same Surgery/Procedure Performed: 1. Right thyroid lobectomy with isthmusectomy using intraoperative nerve monitoring 2. Autotransplantation of parathyroid lay out machine operator: Yes Senior Architect: Shanika Henning Tasks completed by certified first assistant: Opening closing Type of Anesthesia: General/Supplemental RN [...] was unable to be preserved on the [place] vascular pedicles it was circumferentially dissected and [...] to represe (more content not included)... Normal [facility] MR/PAT.HELGAon 07-24-2025 MR/PAT.ANE [facility] Medical Records Department [address] [place] [address] PAT - Anesthesia 07/24/25 1047 MR#: [id number] Acct: [id number] Name: SIERRA CORREA Rep #: [id number] : 1970 54 From: Des Bermudez MD PCP: Dr. Mati Augustine, DO Status:PRE [facility] Y Race: C Location: [facility] Pre-Assessment Diagnosis/Proposed Procedure Planned Operative Procedure(s): THYROID LOBECTOMY WITH ISTHMUS AND IONM Anesthesia History Anesthesia History - editor continuity and script: Anesthesia History - editor continuity and script Hx Hospitalization Yes: 03/06/2025 BRAIN TUMOR 07/22/25 [...] take am of surgery PONV PONV - editor continuity and script: PONV - editor continuity and script Female Yes 07/22/25 15:26 HX of Motion [...] 07/19/25 14:27 Respiratory Assessment Respiratory Assessment - editor continuity and script: Respiratory Tract Infection Hx - editor continuity and script Hx Respiratory Tract Infection No 07/22/25 15:26 STOP Sleep Apnea STOP Sleep Apnea - editor continuity and script: STOP Sleep Apnea - editor continuity and script Hx Hypertension Yes: CONTROLLED WITH MED 07/22/25 [...] Tobacco Use History Tobacco Use History - editor continuity and script: Tobacco Use History - editor continuity and script Tobacco Use Smoking Status Former smoker 07/22/25 15:26 Hx Tobacco Use No 07/22/25 15:26 Years Smoking Packs Smoked per Day Smoking Cessation Date was No - quit smoking greater 07/22/25 15:26 within the last 15 years than 15 years ago Hx Smoking Cessation Date 10/03/07 07/22/25 15:26 Hx Smoking Cessation No 07/22/25 15:26 Counseling Hematologic Medial History Hematologic Hx - editor continuity and script: Hematologic Medical Hx - family coach Hx of Blood Transfusion No 07/22/25 15:26 [...] confused, unrespo /Reproduction History /Reproductive History - editor continuity and script: /Reproductive Hx- editor continuity and script Hx Now No 07/22/25 15:26 Gestational Age (in weeks): EDC: Hx Hx Para Hx Section SAB No 07/22/25 15:26 [facility] Medical History (Updated 07/22/25 @ 15:38 by [...] problem Polyc (more content not included)... Normal [facility] 12 Lead EKGon 07-23-2025 12 Lead EKG [facility] Cardiovascular Services [address] [place] [address] 12 Lead EKG 07/23/25 0707 MR#: [id number] Acct: [id number] Name: SIERRA CORREA Cira Rep #: [id number] : 1970 54 From: Trevor Gonzalez MD Attending Dr: Dr. Trevor Lanier MD Status: PRE [facility] Ordering Dr: Waqas Napier MD Date: 07/23/25 Location: [facility] Sex: F C Admitted: Test Reason : PREOP Blood Pressure : */* mmHG Vent. Rate : 80 BPM Atrial Rate : 80 BPM P-R Int : 102 ms QRS Dur : 100 ms QT Int : 424 ms P-R-T Axes : 39 2 53 degrees QTcB Int : 489 ms Sinus rhythm normal Confirmed by Trevor Gonzalez ([id number]), story editor MARIKA DEAL ([id number]) on 07/23/2025 11:06:54 AM Referred By: Trevor Lanier Confirmed By: Trevor Gonzalez 07/23/25 1106 Date Trevor Gonzalez MD CC: Dr. Waqsa Napier MD; Dr. Mati Augustine DO; Dr. Trevor Lanier MD Signed Normal [facility] V-Zoster IgG (Immunity)on V ZOSTER IgG Normal [facility] Comment on above: Result Comment: TEST RESULTS [...] has not been acquired. TESTING PERFORMED AT [facility]. ORIGINAL REPORT ON FILE IN LAB CONTAINS ADDITIONAL TEST SITE INFORMATION. Performed By: #### L 501.82511, L506.0400, L501.9520 #### [facility] Laboratory [address] [place], [place], [address] Mumps Antibody,IgGon 025 MUMPS Ab, IgG < 9.0 Low Immune >10.9 [facility] Comment on above: Result Comment: Nega tive <9.0 Equivocal 9.0 - 10.9 Positive >10.9 A positive result generally indicates past exposure to Mumps virus or previous vaccination. Performed By: #### L 501.89645, L506.0400, L501.9520 #### [facility] [address] [place], [place], [address] WC EMP Rubeola Titeron 07-03 RUBEOLA Ab, IgG 137.0 AU/mL High Immune >16.4 [facility] Comment on above: Result Comment: Nega tive <13.5 Equivocal 13.5 - 16.4 Positive >16.4 Presence of antibodies to Rubeola is presumptive evidence of immunity except when acute infection is suspected. Performed at: [facility] [address] [id number] Real Estate Site Analyst: Chance Waters PhD, Phone: [phone] Performed By: #### L 501.81864, L506.0400, L501.9520 #### [facility] [address] [place], [place], [address] Hepatitis B Surface Antibody on 07-19-2025 HEP B Surf Ab REAC Normal [facility] Comment on above: Result Comment: <8.5 mIU/mL: Non-Reactive 8.5<= x <11.5 mIU/mL: Indeterminate >=11.5 mIU/mL: Reactive Non Reactive: Inconsistent with immunity less than <10 mIU/mL Reactive: Consistent with immunity greater than or equal to 10 mIU/mL Performed By: #### L 3890.6202 #### [facility] [address] [place], [place], [address] Internal Medicine Office Vis iton 07-19-2025 Internal Medicine Office Visit [facility] [address] [address] [place] [address] OFFICE VISIT Date of Service: 07/19/25 MR#: [id number] Acct: [id number] Name: SIERRA CORREA Rep #: [id number] : 1970 Provider: DAVID Westfall Age/Sex: 54/F Location: [facility] Status: Signed Intake Vital Signs 05/16/25 13:57 [...] 1 month follow up Chief Complaint: fu Property Adjuster Required: No Accompanied by: Self Is patient [...] follow up phentermine is helping with hunger [facility] Medical History Alcohol abuse Kidney disease GERD [...] History current occupational status: employed current occupation: [employer] Smoking Status: Unknown if ever smoked alcohol [...] not been (more content not included)... Normal [facility] L509.4006on 07-19-2025 Rubella IgG Non-Reactive Normal Nonreactive [facility] Comment on above: Result Comment: Anti body Result: Interpretation Non-Reactive: Non-Immune Reactive: Immune The following results were obtained with the [employer] Rubella IgG assay. Results from assays of other manufacturers cannot be used interchangeably. Performed By: #### L 500.2500, L100.0100 #### [facility] Laboratory [facility] [place], [address] Serum Varicella zoster virus IgG antibody assay by immunoassay (units/volume)Ordered By: [facility] on 07-19-2025 VZV IgG IA Qn (S) See comment [facility] Comment on above: TEST RESULTS LIMITSV aricella-Zoster V Ab, IgG Varicella Zoster IgG Reactive Non ReactivePlease note reference interval changeA Reactive result is considered evidence of immunity to VZV.Reactive indicates that VZV IgG was detected consistent withprevious infection and/or vaccination.A Non Reactive result indicates that VZV IgG was not detected suggesting that immunity has not been acquired. ____ TESTING PERFORMED AT [facility]. ORIGINAL REPORT ON FILE IN LAB CONTAINS ADDITIONAL TEST SITE INFORMATION. Serum hepatitis B virus surf suzanna antibody detectionOrdered By: [facility] on 07-19-2025 HBV surface Ab Ql (S) REAC [facility] Comment on above: <8.5 mIU/mL: Non-Alice ctive8.5<= x <11.5 mIU/mL: Indeterminate>=11.5 mIU/mL: Reactive Non Reactive: Inconsistent with immunity less than <10 mIU/mL Reactive: Consistent with immunity greater than or equal to 10 mIU/mL Serum measles virus IgG anti body assay (units/volume)Ordered By: Who is Undercover Spy [facility] on 07-19-2025 MeV IgG Qn (S) 137.0 AU/mL High Immune >16.4 [facility] Comment on above: Negative <13.5 Equiv ocal 13.5 - 16.4 Positive >16.4Presence of antibodies to Rubeola is presumptive evidenceof immunity except when acute infection is suspected.Performed at: [address] [id number] Director: Chance Waters PhD, Phone: [phone] Serum mumps virus IgG antibo dy assay (units/volume)Ordered By: [facility] on 07-19-2025 MuV IgG Qn (S) < 9.0 AU/mL Low Immune >10.9 [facility] Comment on above: Negative <9.0 Equivo devendra 9.0 - 10.9 Positive >10.9A positive result generally indicates past exposure toMumps virus or previous vaccination. Surgery Visit Reporton 07-19 Surgery Visit Report [facility] [address] [place] [address]. [address] [place] [address] OFFICE VISIT Date of Service: 07/19/25 MR#: [id number] Acct: [id number] Name: SIERRA CORREA Rep #: [id number] : 1970 Provider: Dr. Trevor joiner MD Age/Sex: 54/F Location: [facility] Status: Signed Intake Vital Signs 06/05/25 12:51 [...] thyroid lobectomy Chief Complaint: discuss thyroid surgery Property Adjuster Required: No Is patient in pain?: No [...] History current occupational status: employed current occupation: [employer] Smoking Status: Unknown if ever smoked alcohol intake: current alcohol intake frequency: a few times a month Alcohol type: wine substance use type: does not use caffeine: Yes what type of physical activity do you participate in: walking and other details: rowing frequency: 1-2 times per week HPI HPI HPI: Patient is a 54-year-old female who [facility] multiple [facility] nodules [...] is a 54-year-old female who established with [facility] for a diagnosis of multiple thyroid nodules [...] is a 54-year-old female who [facility] with [facility] a [facility] of multiple thyroid nodules and is status post FNA 01/21/2023. Her last vis (more content not included)... Normal [facility] Non-gynecologic cytology rep ortOrdered By: Delores Richard on 06-21-2025 Study report [facility] Pap Stain (control)on 2024 Pap Stain (control) ---- Patient Age/Sex Location Account Attending Physician SIERRA Correa Cira 54/F LABSPEC [id number] Dr. Trevor Lanier MD Specimen: [id number] Received: 06/05/25 Status: FAMILIA Taylor Num: [id number] Spec Type: CYSPIN FL [facility] Dr: Dr. Trevor Lanier MD [...] cytospin. B. Received is 5 ml of [id number] fluid labeled with the patient's name and and designated per the requisition as Right thyroid nodule. Submitted for cytology and cytospin. 06/05/2025 CPT: 36736,37605,61959 ADDENDUM Addendum 1 Entered: 07/03/25 [facility] RESULTS REPORT RESULTS INTERPRETATION: The result of this 2.7 cm Mobile III nodule A is Afirma GSC benign, which suggests a low risk of cancer of approximately 4%. Treatment like a Patient Age/Sex Location Account Attending Physician SIERRA Correa 54/F LABSPEC [id number] Dr. Trevor Lanier MD ADDENDUM (Continued) cytologically [...] Dr. Delores Richard MD 06/21/25 1316 Normal [facility] Comment on above: Performed By: #### L 500.2500, L100.0100 #### [facility] [address] [place], [address] Surgery Visit Reporton 06-05 Surgery Visit Report [facility] [address] [place] [address] OFFICE VISIT Date of Service: 06/05/25 MR#: [id number] Acct: [id number] Name: SIERRA Correa Rep #: [id number] : 1970 Provider: Dr. Trevor joiner MD Age/Sex: 54/F Location: [facility] Status: Signed Intake Vital Signs 04/02/25 09:30 [...] - 2 x 1 mg) PO QHS [place] N 05/21/25 06/05/25 Rx panic attack(s) 30 [...] History current occupational status: employed current occupation: [employer] Smoking Status: Unknown if ever smoked alcohol intake: current alcohol intake frequency: a few times a month Alcohol type: wine substance use type: does not use caffeine: Yes what type of physical activity do you participate in: walking and other details: rowing frequency: 1-2 times per week HPI HPI HPI: Patient is a 54-year-old female who [facility] a [facility] multiple [facility] nodules and is status post FNA 01/21/2023. Her last visit 01/11/2025. Unfortunately during her workup for compressive symptoms she was found to demonstrate evidence of a possible pulmonary embolism as well as a brain mass. Repeat testing did not confirm the presence of a pulmonary embolism, blood (more content not included)... Normal [facility] Absolute lymphocyte countOrd ered By: Rob Sampson on 05-16-2025 Lymphocytes Auto (Unsp spec) [#/Vol] 1.90 10*3/uL 0.83-4.51 [facility] Absolute neutrophil countOrd ered By: Rob Sampson on 05-16-2025 Neutrophils (Bld) [#/Vol] 4.9 10*3/uL 2.0-7.7 [facility] Anion gap in Serum or Plasma Ordered By: Rob Sampson on 05-16-2025 Anion gap [Moles/Vol] 14 mmol/L 5- [facility] Automated lymphocyte count a s percentage of total leukocytesOrdered By: Rob Sampson on 05-16-2025 Lymphocytes/100 WBC Auto (Unsp spec) 23.1 % 19- [facility] BUN/creatinine ratioOrdered By: Rob Wayt on 05-16-2025 Urea nitrogen/Creatinine [Mass ratio] 12.8 mg/mg 10- [facility] Basophil percentageOrdered B y: Rob Sampson on 05-16-2025 Basophils/100 WBC (Bld) 0.9 % 0-1 [facility] Bilirubin, totalOrdered By: Rob Sampson on 05-16-2025 Bilirubin [Mass/Vol] 0.38 mg/dL 0.00-1.[address] [facility] CBC W/Diff, Automatedon 05-03 Absolute Lymph 1.90 X10 3/uL Normal 0.83-4.51 [facility] Comment on above: Performed By: #### L 100.0100, L500.4050, L501.9520 #### [facility] [address] [place], [address] Absolute Neut 4.9 X10 3/uL Normal 2.0-7.7 [facility] Comment on above: Performed By: #### L 100.0100, L500.4050, L501.9520 #### [facility] [address] [place], [address] Basophils/100 WBC (Bld) 0.9 % Normal 0-1 [facility] Comment on above: Performed By: #### L 100.0100, L500.4050, L501.9520 #### [facility] [address] [place], [address] Eosinophils/100 WBC (Bld) 10.3 % High 0-5 [facility] Comment on above: Performed By: #### L 100.0100, L500.4050, L501.9520 #### [facility] [address] [place], [address] Erythrocyte distribution width (RBC) [Ratio] 15.0 % High 11.6-14.6 [facility] Comment on above: Performed By: #### L 100.0100, L500.4050, L501.9520 #### [facility] [address] [place], [address] Hematocrit (Bld) [Volume fraction] 30.5 % Low 37-47 [facility] Comment on above: Performed By: #### L 100.0100, L500.4050, L501.9520 #### [facility] [address] [place], [address] Hemoglobin (Bld) [Mass/Vol] 10.5 g/dL Low 12.0-15.0 [facility] Comment on above: Performed By: #### L 100.0100, L500.4050, L501.9520 #### [facility] [address] [place], [address] IG% 1.000 High 0.0-0.9 [facility] Comment on above: Result Comment: IG% - Immature Granulocytes (promyelocytes, myelocytes and metamyelocytes) > 1% indicates that a LEFT SHIFT is Present. Performed By: #### L 100.0100, L500.4050, L501.9520 #### [facility] [address] [place], [address] Lymphocytes/100 WBC (Bld) 23.1 % Normal 19-41 [facility] Comment on above: Performed By: #### L 100.0100, L500.4050, L501.9520 #### [facility] [address] [place], [address] MCH (RBC) [Entitic mass] 28.4 pg Normal 27.0-32.0 [facility] Comment on above: Performed By: #### L 100.0100, L500.4050, L501.9520 #### [facility] [address] [place], [address] MCHC (RBC) [Mass/Vol] 34.4 g/dL Normal 32-36 [facility] Comment on above: Performed By: #### L 100.0100, L500.4050, L501.9520 #### [facility] [address] [place], [address] MCV (RBC) [Entitic vol] 82.4 fL Normal 81-99 [facility] Comment on above: Performed By: #### L 100.0100, L500.4050, L501.9520 #### [facility] [address] [place], [address] Monocytes/100 WBC (Bld) 5.5 % Normal 0-10 [facility] Comment on above: Performed By: #### L 100.0100, L500.4050, L501.9520 #### [facility] [address] [place], [address] Neutrophils/100 WBC (Bld) 59.2 % Normal 47-70 [facility] Comment on above: Performed By: #### L 100.0100, L500.4050, L501.9520 #### [facility] [address] [place], [address] Nucleated RBC (Bld) [#/Vol] 0 10*3/uL Normal 0-5 [facility] Comment on above: Performed By: #### L 100.0100, L500.4050, L501.9520 #### [facility] [address] [place], [address] Platelet mean volume (Bld) [Entitic vol] 9.4 fL Normal 6.2-12.0 [facility] Comment on above: Performed By: #### L 100.0100, L500.4050, L501.9520 #### [facility] [address] [place], [address] Platelets (Bld) [#/Vol] 285 10*3/uL Normal 150-450 [facility] Comment on above: Performed By: #### L 100.0100, L500.4050, L501.9520 #### [facility] [address] [place], [address] RBC (Bld) [#/Vol] 3.70 10*6/uL Low 4.2-5.4 [facility] Comment on above: Performed By: #### L 100.0100, L500.4050, L501.9520 #### [facility] [address] [place], [address] RDW SD 44.5 fl High 35.1-43.9 [facility] Comment on above: Performed By: #### L 100.0100, L500.4050, L501.9520 #### [facility] [address] [place], [address] WBC (Bld) [#/Vol] 8.2 10*3/uL Normal 4.4-11.0 [facility] Comment on above: Performed By: #### L 100.0100, L500.4050, L501.9520 #### [facility] [address] [place], [address] Carbon dioxide, total [Moles /volume] in Central venous bloodOrdered By: Rob Sampson on 05-16-2025 CO2 [Moles/Vol] 25.3 mmol/L 21.0-32.0 [facility] Chloride assayOrdered By: Shey Sampson on 05-16-2025 Chloride [Moles/Vol] 102 mmol/L 98-[address] [facility] Comprehensive Metabolic Prof ilon 05-16-2025 Albumin [Mass/Vol] 4.5 g/dL Normal 3.5-5.0 [facility] Comment on above: Performed By: #### L 100.0100, L500.4050, L501.9520 #### [facility] [address] [place], [address] Albumin/Globulin [Mass ratio] 1.7 {ratio} Normal 0.9-2.4 [facility] Comment on above: Performed By: #### L 100.0100, L500.4050, L501.9520 #### [facility] [address] [place], [address] ALK PHOS 131 U/L High 35-104 [facility] Comment on above: Performed By: #### L 100.0100, L500.4050, L501.9520 #### [facility] [address] [place], [address] ALT [Catalytic activity/Vol] 41 U/L High <=34 [facility] Comment on above: Performed By: #### L 100.0100, L500.4050, L501.9520 #### [facility] [address] [place], [address] AST [Catalytic activity/Vol] 36 U/L High <=31 [facility] Comment on above: Performed By: #### L 100.0100, L500.4050, L501.9520 #### [facility] [address] [place], [address] Bilirubin [Mass/Vol] 0.38 mg/dL Normal 0.00-1.[address] [facility] Comment on above: Performed By: #### L 100.0100, L500.4050, L501.9520 #### [facility] [address] [place], [address] BUN/CRE 12.8 RATIO Normal 10-20 [facility] Comment on above: Performed By: #### L 100.0100, L500.4050, L501.9520 #### [facility] [address] [place], [address] Calcium [Mass/Vol] 9.1 mg/dL Normal 7.6-11.0 [facility] Comment on above: Performed By: #### L 100.0100, L500.4050, L501.9520 #### [facility] [address] [place], [address] Chloride [Moles/Vol] 102 mmol/L Normal 98-[address] [facility] Comment on above: Performed By: #### L 100.0100, L500.4050, L501.9520 #### [facility] [address] [place], [address] CO2 [Moles/Vol] 25.3 mmol/L Normal 21.0-32.0 [facility] Comment on above: Performed By: #### L 100.0100, L500.4050, L501.9520 #### [facility] [address] [place], [address] Creatinine [Mass/Vol] 0.97 mg/dL Normal 0.70-1.20 [facility] Comment on above: Performed By: #### L 100.0100, L500.4050, L501.9520 #### [facility] [address] [place], [address] GAP 14 Normal 5-15 [facility] Comment on above: Performed By: #### L 100.0100, L500.4050, L501.9520 #### [facility] [address] [place], [address] GFR/1.73 sq M.predicted among non-blacks MDRD (S/P/Bld) [Vol rate/Area] 70 mL/min/{1.73_m2} Normal >60 [facility] Comment on above: Result Comment: mL/m in/1.73m2 CKD-EPI Creatinine Equation (2020) Performed By: #### L 100.0100, L500.4050, L501.9520 #### [facility] [address] [place], [address] Globulin (S) [Mass/Vol] 2.6 g/dL Normal 2.2-4.2 [facility] Comment on above: Performed By: #### L 100.0100, L500.4050, L501.9520 #### [facility] [address] [place], [address] Glucose [Mass/Vol] 97 mg/dL Normal 70-99 [facility] Comment on above: Performed By: #### L 100.0100, L500.4050, L501.9520 #### [facility] [address] [place], [address] Potassium [Moles/Vol] 3.8 mmol/L Normal 3.3-5.1 [facility] Comment on above: Performed By: #### L 100.0100, L500.4050, L501.9520 #### [facility] [address] [place], [address] Sodium [Moles/Vol] 141 mmol/L Normal 133-145 [facility] Comment on above: Performed By: #### L 100.0100, L500.4050, L501.9520 #### [facility] [address] [place], [address] T PROT 7.1 g/dL Normal 5.9-8.4 [facility] Comment on above: Performed By: #### L 100.0100, L500.4050, L501.9520 #### [facility] [address] [place], [address] Urea nitrogen [Mass/Vol] 12 mg/dL Normal 4-19 [facility] Comment on above: Performed By: #### L 100.0100, L500.4050, L501.9520 #### [facility] [address] [place], [address] Eosinophil percentageOrdered By: Rob Sampson on 05-16-2025 Eosinophils/100 WBC (Bld) 10.3 % High 0-5 [facility] Erythrocyte distribution wid th ratioOrdered By: Rob Sampson on 05-16-2025 Erythrocyte distribution width (RBC) [Ratio] 15.0 % High 11.6-14.6 [facility] Erythrocyte distribution wid th standard deviationOrdered By: Rob Sampson on 05-16-2025 Erythrocyte distribution width (RBC) [Ratio] 44.5 fl High 35.1-43.9 [facility] Glomerular filtration rate ( GFR) estimation/1.73 sq m using serum, plasma, or whole bOrdered By: Rob Sampson on 05-16-2025 GFR/1.73 sq M.predicted among non-blacks MDRD (S/P/Bld) [Vol rate/Area] 70 mL/min/{1.73_m2} >60 [facility] Comment on above: mL/min/1.73m2 CKD-EP I Creatinine Equation (2020) Hematocrit Auto (Bld) [Volum e fraction]Ordered By: Rob Sampson on 05-16-2025 Hematocrit (Bld) [Volume fraction] 30.5 % Low 37-47 [facility] Hemoglobin measurementOrdere d By: Rob Sampson on 05-16-2025 Hemoglobin (Bld) [Mass/Vol] 10.5 g/dL Low 12.0-15.0 [facility] Immature granulocytes/100 WB C Auto (Bld)Ordered By: Rob Sampson on 05-16-2025 Immature granulocytes/100 WBC (Bld) 1.000 % High 0.0-0.9 [facility] Comment on above: IG% - Immature Granu locytes (promyelocytes, myelocytes and metamyelocytes) > 1% indicates that a LEFT SHIFT is Present. Internal Medicine Office Vis iton 05-16-2025 Internal Medicine Office Visit [facility] [address] [place], [place] [address] OFFICE VISIT Date of Service: 05/16/25 MR#: [id number] Acct: [id number] Name: SIERRA PATTON Rep #: [id number] : 1970 Provider: DAVID Westfall Age/Sex: 54/F Location[facility] Status: Signed Intake Vital Signs 04/02/25 09:30 [...] all over. Painful Chief Complaint: swelling everywhere Property Adjuster Required: No Accompanied by: Self Is patient [...] - 2 x 1 mg) PO QHS [place] N 04/25/25 05/16/25 Rx panic attack(s) 30 [...] History current occupational status: employed current occupation: [employer] Smoking Status: Unknown if ever smoked alcohol [...] wrists and (more content not included)... Normal [facility] - Chemistry and C hemistry - challengeOrdered By: Rob Sampson on 05-16-2025 AST [Catalytic activity/Vol] 36 U/L High <32 [facility] MCV (mean corpuscular volume ) determinationOrdered By: Rob Sampson on 05-16-2025 MCV (RBC) [Entitic vol] 82.4 fL 81-99 [facility] Mean corpuscular hemoglobin (MCH) determinationOrdered By: Rob Sampson on 05-16-2025 MCH (RBC) [Entitic mass] 28.4 pg 27.0-32.0 [facility] Mean corpuscular hemoglobin concentration (MCHC) determinationOrdered By: Rob Sampson on 05-16-2025 MCHC (RBC) [Mass/Vol] 34.4 g/dL 32-36 [facility] Mean platelet volume determi nationOrdered By: Rob Sampson on 05-16-2025 Platelet mean volume (Bld) [Entitic vol] 9.4 fL 6.2-12.0 [facility] Monocyte percentageOrdered B y: Rob Sampson on 05-16-2025 Monocytes/100 WBC (Bld) 5.5 % 0-10 [facility] Neutrophil percentageOrdered By: Rob Sampson on 05-16-2025 Neutrophils/100 WBC (Bld) 59.2 % 47-70 [facility] Nucleated red blood cell per centageOrdered By: Rob Sampson on 05-16-2025 Nucleated RBC/100 WBC (Bld) [Ratio] 0 % 0-5 [facility] Platelet countOrdered By: Shey ttcamille Sampson on 05-16-2025 Platelets (Bld) [#/Vol] 285 10*3/uL 150-450 [facility] Potassium measurement (mass/ volume)Ordered By: Rob Sampson on 05-16-2025 Potassium (Unsp spec) [Mass/Vol] 3.8 mmol/L 3.3-5.1 [facility] RBC Auto (Bld) [#/Vol]Ordere d By: Rob Sampson on 05-16-2025 RBC (Bld) [#/Vol] 3.70 10*6/uL Low 4.2-5.4 [facility] Serum creatinine measurement (mass/volume)Ordered By: Rob Sampson on 05-16-2025 Creatinine [Mass/Vol] 0.97 mg/dL 0.70-1.20 [facility] Serum globulin measurementOr dered By: Rob Sampson on 05-16-2025 Globulin (S) [Mass/Vol] 2.6 g/dL 2.2-4.2 [facility] Serum glucose measurement (m ass/volume)Ordered By: Rob Sampson on 05-16-2025 Glucose [Mass/Vol] 97 mg/dL 70-99 [facility] Serum or plasma alanine drew otransferase (ALT) measurementOrdered By: Rob Sampson on 05-16-2025 ALT [Catalytic activity/Vol] 41 U/L High <35 [facility] Serum or plasma albumin susanna urement (mass/volume)Ordered By: Rob Sampson on 05-16-2025 Albumin [Mass/Vol] 4.5 g/dL 3.5-5.0 [facility] Serum or plasma albumin/glob ulin mass ratioOrdered By: Rob Sampson on 05-16-2025 Albumin/Globulin [Mass ratio] 1.7 {ratio} 0.9-2.4 [facility] Serum or plasma alkaline marlon sphatase measurementOrdered By: Rob Sampson on 05-16-2025 ALP [Catalytic activity/Vol] 131 U/L High 35-104 [facility] Serum or plasma calcium susanna urement (mass/volume)Ordered By: Rob Sampson on 05-16-2025 Calcium [Mass/Vol] 9.1 mg/dL 7.6-11.0 [facility] Serum or plasma urea nitroge n measurement (mass/volume)Ordered By: Rob Sampson on 05-16-2025 Urea nitrogen [Mass/Vol] 12 mg/dL 4-19 [facility] Sodium levelOrdered By: Maikol Sampson on 05-16-2025 Sodium [Moles/Vol] 141 mmol/L 133-145 [facility] TSH DL <= 0.005 mIU/L QnOrde red By: Rob Sampson on 05-16-2025 TSH Qn 1.210 uIU/mL 0.300-4.200 [facility] Thyroid Stim Hormone (TSH)on 05-16-2025 TSH 1.210 uIU/mL Normal 0.300-4.200 [facility] Comment on above: Performed By: #### L 100.0100, L500.4050, L501.9520 #### [facility] [address] [place] [address], [id number] Total proteinOrdered By: Delgado Sampson on 05-16-2025 Protein [Mass/Vol] 7.1 g/dL 5.9-8.4 [facility] White blood cell (WBC) count Ordered By: Rob Sampson on 05-16-2025 WBC (Bld) [#/Vol] 8.2 10*3/uL 4.4-11.0 [facility] CNOVon 05-07-2025 CNOV Office Visit (NEAGCL M) -------- SIERRA PATTON ([id number]) 1970 F Date Time Provider Department 05/07/25 9:30 AM FABRIZIO AMBROCIO NEAGCLM During your visit today, we recorded the following information about you: Pulse Respiration Blood pressure Weight 85/minute 16/minute 111/75 94.7 kg Height 1.575 m Fabrizio Ambrocio MD 05/08/2025 8:12 AM Addendum NEUROSURGERY POST OP NOTE Dr. Fabrizio Ambrocio MD, [facility] Date of visit: May 07, 2025 Patient Name: Ms.Connie Cira Patton Date of : 1970 Current Age: [age] year old MRN/E# [id number] Last Office Visit: 04/09/2025 CHIEF COMPLAINT: Patient [...] Ambrocio was notified of this change by [employer] message on 03/14/2025. PRE-SURGICAL SYMPTOMS: Cognitive difficulty, blurry vision, mood swings, frontal headache, decreased sense of smell INCISION: Healed HISTORY OF PRESENT ILLNESS : The patient presents for a 8-week post operative visit with imaging (MRI B) for evaluation. This is a 54-year-old female with a PMHx of thyroid disease, obesity, anxiety who was seen for consult at [facility] on 03/01/2025. She reported that she saw [...] with 10 (more content not included)... Normal [facility] MR Brain WO and W contrast I Von 04-30-2025 IMPRESSION: Postoperative changes as above with minimal linear enhancement at the operative site which is most likely postoperative in nature although follow-up is recommended.. [employer] Underwriter: LG Transcribe Date/Time: Apr 30 2025 2:42P Dictated by : WALESKA BAZZI MD This examination was interpreted and the report reviewed and electronically signed by: WALESKA BAZZI MD on Apr 30 2025 2:47PM [facility] DIVISION OF RADIOLOGY * * *Final Report* * * DATE OF EXAM: Apr 30 2025 2:08PM [facility] 0295 - MRI BRAIN WO/W IVCON [...] imaged paranasal sinuses. DIVISION OF RADIOLOGY Provider, [facility] 04/30/[facility]25 * * *Final Report* * * DATE OF EXAM: Apr 30 2025 2:08PM [facility] 0295 - MRI BRAIN WO/W IVCON [...] postoperative in nature although follow-up is recommended.. [employer] Underwriter: LG Transcribe Date/Time: Apr 30 2025 2:42P Dictated by : WALESKA BAZZI MD This examination was interpreted and the report reviewed and electronically signed by: WALESKA BAZZI MD on Apr 30 2025 2:47PM [facility] Radiology Study observation (narrative) [facility] MR Brain WO and W contrast I VOrdered By: [facility] Provider on 04-30-2025 [facility] MRI BRAIN WO/W IVCONon 04-30 MRI BRAIN [...] postoperative in nature although follow-up is recommended.. [employer] Underwriter: PSCB Transcribe Date/Time: Apr 30 2025 2:42P Dictated by : WALESKA BAZZI MD This examination was interpreted and the report reviewed and electronically signed by: WALESKA BAZZI MD on Apr 30 2025 2:47PM EST [id number] Normal [facility] CNOVon 04-09-2025 CNOV Office Visit (NEAGCL M) -------- SIERRA PATTON ([id number]) 1970 F Date Time Provider Department 04/09/25 10:00 AM FABRIZIO AMBROCIO NEAGCLM During your visit today, we recorded the following information about you: Pulse Blood pressure Weight Height 68/minute 104/54 91.1 kg 1.575 m Fabrizio Ambrocio MD 04/09/2025 10:19 AM Signed NEUROSURGERY POST OP NOTE Dr. Fabrizio Ambrocio MD, [facility] Date of visit: April 09, 2025 Patient Name: Ms.Connie Cira Patton Date of : 1970 Current Age: [age] year old MRN/E# [id number] Last Office Visit: 03/22/2025 CHIEF COMPLAINT: Patient [...] Ambrocio was notified of this change by [employer] message on 03/14/2025. PRE-SURGICAL SYMPTOMS: Cognitive difficulty, [...] disease, obesity, anxiety who was seen at [facility] for consult on 03/01/2025. Patient stated that [...] contrast ( (more content not included)... Normal [facility] Internal Medicine Office Vis iton 04-02-2025 Internal Medicine Office Visit [facility] [address] [place], [place] [address] OFFICE VISIT Date of Service: 04/02/25 MR#: [id number] Acct: [id number] Name: SIERRA PATTON Rep #: [id number] : 1970 Provider: Dr. Mati aj, DO Age/Sex: 54/F Location: [facility] Status: Signed Intake Vital Signs 02/06/25 13:07 [...] Reasons: 2 M FU Chief Complaint: fu Property Adjuster Required: No Accompanied by: Self Is patient [...] History current occupational status: employed current occupation: [employer] Smoking Status: Unknown if ever smoked alcohol [...] meningioma removed from her frontal lobe at [facility]. This was an incidental unexpected finding when she was having a workup for thyroid nodules. She has recovered remarkably quickly although still has some changes in her handwriting and intermammary but all in all she looks much more alert and optimistic than when I had last seen her. ROS Const Constitutional: (more content not included)... Normal [facility] CNCOon 03-22-2025 CNCO Letter Text Normal [facility] CNOVon 03-22-2025 CNOV Office Visit (NEAGCL M) -------- SIERRA PATTON ([id number]) 1970 F Date Time Provider Department 03/22/25 [...] 1970 Current Age: [age] year old MRN/E# [id number] Last Office Visit: Postop CHIEF COMPLAINT: Patient [...] Ambrocio was notified of this change by [employer] message on 03/14/2025. PRE-SURGICAL SYMPTOMS: Cognitive difficulty, [...] disease, obesity, anxiety who was seen at [facility] for consult on 03/01/2025. Patient stated that [...] swelling. Gastrointestinal (more content not included)... Normal [facility] CNDSon 03-09-2025 [facility] HNO ID: [id number] Author: FABRIZIO AMBROCIO MD Service: Neurosurgery Author [...] Medications These medications were sent to e- [facility]/pharmacy #[id number] [place] [address] - [address] [facility] - [phone] [place] [address] dexAMETHasone 1 mg tablet levETIRAcetam 500 mg [...] When: In 2 weeks Fabrizio Ambrocio MD [phone] [address] [facility] [address] PCP Requested Referral I have performed the [id number] and relevant services for a total of >30 minutes. SIGNATURE: Aliya Reza APRN.HABILITATION WORKER PAGER/CONTACT #: [phone] DATE: March 09, 2025 TIME: 8:57 AM Normal [facility] CONSULT PROGon 03-08-2025 CONSULT PROG HNO ID: [id number] Author: NATTY PATEL MD Service: Hospital Medicine Author Type: Physician Type: Consult Progress Note Filed: 03/08/2025 13:21 Note Text: DEPARTMENT OF HOSPITAL MEDICINE PROGRESS NOTE SERVICE DATE: 03/08/2025 SERVICE TIME: 12:25 PM Hospital Medicine/Primary Attending: Natty Patel MD NIGHT AND WEEKEND COVERAGE: After 7pm please page 1947 MEDICATIONS: Current Facility-Administered Medications Medication Dose Route [...] Lab work (more content not included)... Normal [facility] Basic metabolic 2000 panelon 03-07-2025 Anion gap [Moles/Vol] 13 mmol/L Normal 8-15 [facility] Comment on above: Order Comment: Speci [facility] Type: BLOOD SPECIMENOrdering Facility: [facility] Address: [address] [place] [address] Performed By: #### 1 9123-9, 01310-2, 2776-10 ####[facility] LABORATORYCLIA [id number] [place] [address] [place] Calcium [Mass/Vol] 8.4 mg/dL Low 8.5-10.2 [facility] Comment on above: Order Comment: Tiffanie [facility] Type: BLOOD SPECIMENOrdering Facility: [facility] Address: [address] [place] [address] Performed By: #### 1 9123-9, 22622-4, 2776-10 ####[facility] LABORATORYCLIA [id number] [place] [address] [place] Chloride [Moles/Vol] 100 mmol/L Normal 98-107 [facility] Comment on above: Order Comment: Speci men Type: BLOOD SPECIMENOrdering Facility: [facility] Address: [address] [place] [address] Performed By: #### 1 9123-9, 49728-4, 2776-10 ####[facility] LABORATORYCLIA [id number] [address] OF [facility] CO2 [Moles/Vol] 27 mmol/L Normal 22-30 [facility] Comment on above: Order Comment: Speci men Type: BLOOD SPECIMENOrdering Facility: [facility] Address: [address] [place] [address] Performed By: #### 1 9123-9, , 2776-10 ####[facility] COUNTYIA [id number] [address] OF [facility] Creatinine [Mass/Vol] 0.93 mg/dL Normal 0.58-0.96 [facility] Comment on above: Order Comment: Speci men Type: BLOOD SPECIMENOrdering Facility: [facility] Address: [address] [place] [address] Performed By: #### 1 9123-9, , 2776-10 ####[facility] COUNTYIA [id number] [address] Creatinine and Glomerular filtration rate.predicted panel (S/P/Bld) 74 mL/min/1.73m??? Normal >=60 [facility] Comment on above: Order Comment: Speci men Type: BLOOD SPECIMENOrdering Facility: [facility] Address: [address] [place] [address] Result Comment: Eleanor mated Glomerular Filtration Rate [...] actual GFR. Performed By: #### 1 9123-9, 13373-8, 2776-10 ####[facility] LABORATORYCLIA [id number] [place] [address] [place] Glucose [Mass/Vol] 152 mg/dL High 74-99 [facility] Comment on above: Order Comment: Speci men Type: BLOOD SPECIMENOrdering Facility: [facility] Address: [address] [place] [address] Result Comment: The [place] [employer] Association (ADA) provides guidance for cutoff [...] Standards of Medical Care in Diabetes 2016, [place] [employer]. Diabetes Care. 2016.39(Suppl 1). Performed By: #### 1 9123-9, 58558-9, 2776- ####[facility] LABORATORYCLIA [id number] [place] [address] [place] Potassium [Moles/Vol] 3.6 mmol/L Low 3.7-5.1 [facility] Comment on above: Order Comment: Tiffanie osorio Type: BLOOD SPECIMENOrdering Facility: [facility] Address: [address] [place] [address] Performed By: #### 1 9123-9, 37215-9, 2776-10 ####[facility] LABORATORYCLIA [id number] [place] [address] [place] Sodium [Moles/Vol] 140 mmol/L Normal 136-144 [facility] Comment on above: Order Comment: Chavai men Type: BLOOD SPECIMENOrdering Facility: [facility] Address: [address] [place], [place] [address] Performed By: #### 1 9123-9, 40862-2, 2776- ####[facility] LABORATORYCLIA [id number] [address] [place] Urea nitrogen [Mass/Vol] 28 mg/dL High 7-21 [facility] Comment on above: Order Comment: Speci men Type: BLOOD SPECIMENOrdering Facility: [facility] Address: [address] [place] [address] Performed By: #### 1 9123-9, 70720-1, 2777-1 ####[facility] LABORATORYCLIA [id number] [place] [address] [place] CBC W Auto Differential pane l (Bld)on 03-07-2025 Anisocytosis Ql (Bld) Present Normal [facility] Comment on above: Order Comment: Speci men Type: BLOOD SPECIMENOrdering Facility: [facility] Address: [address] [place] [address] Performed By: #### 5 7021-8 ####[facility] LABORATORYCLIA [id number] [address] OF [facility] Basophils (Bld) [#/Vol] 0.00 10*3/uL Normal <0.11 [facility] Comment on above: Order Comment: Speci men Type: BLOOD SPECIMENOrdering Facility: [facility] Address: [address] [place] [address] Performed By: #### 5 7021-8 ####[facility] LABORATORYCLIA [id number] [address] Basophils/100 WBC (Bld) 0.0 % Normal A [facility] Comment on above: Order Comment: Speci men Type: BLOOD SPECIMENOrdering Facility: [facility] Address: [address] [place] [address] Performed By: #### 5 7021-8 ####[facility] LABORATORYCLIA [id number] [address] OF [facility] Differential cell count method Nom (Bld) Manual Normal [facility] Comment on above: Order Comment: Speci men Type: BLOOD SPECIMENOrdering Facility: [facility] Address: [address] [place] [address] Performed By: #### 5 7021-8 ####[facility]ORATORYCLIA [id number] [address] [place] Eosinophils (Bld) [#/Vol] 0.00 10*3/uL Normal <0.46 [facility] Comment on above: Order Comment: Speci men Type: BLOOD SPECIMENOrdering Facility: [facility] Address: [address] [place] [address] Performed By: #### 5 7021-8 ####[facility]ORATORYCLIA [id number] [address] Eosinophils/100 WBC (Bld) 0.0 % Normal [facility] Comment on above: Order Comment: Speci men Type: BLOOD SPECIMENOrdering Facility: [facility] Address: [address] [place] [address] Performed By: #### 5 7021-8 ####[facility] LABORATORYCLIA [id number] [address] Erythrocyte distribution width (RBC) [Ratio] 15.3 % High 11.5-15.0 [facility] Comment on above: Order Comment: Speci men Type: BLOOD SPECIMENOrdering Facility: [facility] Address: [address] [place] [address] Performed By: #### 5 7021-8 ####[facility]ORATORYCLIA [id number] [address] [place] Hematocrit (Bld) [Volume fraction] 32.4 % Low 36.0-46.0 [facility] Comment on above: Order Comment: Speci men Type: BLOOD SPECIMENOrdering Facility: [facility] Address: [address] [place] [address] Performed By: #### 5 7021-8 ####[facility] LABORATORYCLIA [id number] [address] Hemoglobin (Bld) [Mass/Vol] 10.6 g/dL Low 11.5-15.5 [facility] Comment on above: Order Comment: Speci men Type: BLOOD SPECIMENOrdering Facility: [facility] Address: [facility] [place] [address] Performed By: #### 5 7021-8 ####[facility] LABORATORYCLIA [id number] [address] Lymphocytes (Bld) [#/Vol] 0.00 10*3/uL Low 1.00-4.00 [facility] Comment on above: Order Comment: Speci men Type: BLOOD SPECIMENOrdering Facility: [facility] Address: [address] [place] [address] Performed By: #### 5 7021-8 ####[facility] LABORATORYCLIA [id number] [address] Lymphocytes/100 WBC (Bld) 0.0 % Normal [facility] Comment on above: Order Comment: Speci men Type: BLOOD SPECIMENOrdering Facility: [facility] Address: [address] [place] [address] Performed By: #### 5 7021-8 ####[facility] LABORATORYCLIA [id number] [address] MCH (RBC) [Entitic mass] 28.1 pg Normal 26.0-34.0 [facility] Comment on above: Order Comment: Speci men Type: BLOOD SPECIMENOrdering Facility: [facility] Address: [address] [place] [address] Performed By: #### 5 7021-8 ####[facility] LABORATORYCLIA [id number] [address] MCHC (RBC) [Mass/Vol] 32.7 g/dL Normal 30.5-36.0 [facility] Comment on above: Order Comment: Speci men Type: BLOOD SPECIMENOrdering Facility: [facility] Address: [address] [place] [address] Performed By: #### 5 7021-8 ####[facility] LABORATORYCLIA [id number] [address] MCV (RBC) [Entitic vol] 85.9 fL Normal 80.0-100.0 A [facility] Comment on above: Order Comment: Speci men Type: BLOOD SPECIMENOrdering Facility: [facility] Address: [address] [place] [address] Performed By: #### 5 7021-8 ####[facility] LABORATORYCLIA [id number] [address] [place] Metamyelocytes/100 WBC (Bld) 2.0 % Normal [facility] Comment on above: Order Comment: Speci men Type: BLOOD SPECIMENOrdering Facility: [facility] Address: [address] [place] [address] Performed By: #### 5 7021-8 ####[facility]ORATORYCLIA [id number] [address] [place] Monocytes (Bld) [#/Vol] 0.99 10*3/uL High <0.87 [facility] Comment on above: Order Comment: Speci men Type: BLOOD SPECIMENOrdering Facility: [facility] Address: [address] [place] [address] Performed By: #### 5 7021-8 ####[facility] LABORATORYCLIA [id number] [address] [place] Monocytes/100 WBC (Bld) 5.0 % Normal A [facility] Comment on above: Order Comment: Speci men Type: BLOOD SPECIMENOrdering Facility: [facility] Address: [address] [place] [address] Performed By: #### 5 7021-8 ####[facility] LABORATORYCLIA [id number] [address] [place] Neutrophils (Bld) [#/Vol] 18.42 10*3/uL High 1.45-7.50 [facility] Comment on above: Order Comment: Speci men Type: BLOOD SPECIMENOrdering Facility: [facility] Address: [address] [place] [address] Performed By: #### 5 7021-8 ####[facility]ORATORYCLIA [id number] [address] Neutrophils/100 WBC (Bld) 93.0 % Normal [facility] Comment on above: Order Comment: Speci men Type: BLOOD SPECIMENOrdering Facility: [facility] Address: [address] [place] [address] Performed By: #### 5 7021-8 ####[facility] LABORATORYCLIA [id number] [address] Nucleated RBC (Bld) [#/Vol] 10*3/uL Normal <0.01 [facility] Comment on above: Order Comment: Speci men Type: BLOOD SPECIMENOrdering Facility: [facility] Address: [address] [place] [address] Performed By: #### 5 7021-8 ####[facility] LABORATORYCLIA [id number] [address] Nucleated RBC/100 WBC (Bld) [Ratio] 0.0 /100 WBC Normal [facility] Comment on above: Order Comment: Speci men Type: BLOOD SPECIMENOrdering Facility: [facility] Address: [address] [place] [address] Performed By: #### 5 7021-8 ####[facility] LABORATORYCLIA [id number] [address] Ovalocytes LM Ql (Bld) Few Normal [facility] Comment on above: Order Comment: Speci men Type: BLOOD SPECIMENOrdering Facility: [facility] Address: [address] [place] [address] Performed By: #### 5 7021-8 ####[facility] LABORATORYCLIA [id number] [address] STATES [facility] Platelet mean volume (Bld) [Entitic vol] 9.0 fL Normal 9.0-12.7 [facility] Comment on above: Order Comment: Speci men Type: BLOOD SPECIMENOrdering Facility: [facility] Address: [address] [place] [address] Performed By: #### 5 7021-8 ####[facility] LABORATORYCLIA [id number] [address] [place] Platelets (Bld) [#/Vol] 320 10*3/uL Normal 150-400 [facility] Comment on above: Order Comment: Speci men Type: BLOOD SPECIMENOrdering Facility: [facility] Address: [address] [place] [address] Performed By: #### 5 7021-8 ####[facility] LABORATORYCLIA [id number] [address] [place] Platelets Estimate (Bld) [#/Vol] Increased Normal [facility] Comment on above: Order Comment: Speci men Type: BLOOD SPECIMENOrdering Facility: [facility] Address: [address] [place] [address] Performed By: #### 5 7021-8 ####[facility] LABORATORYCLIA [id number] [address] Polychromasia LM Ql (Bld) Slight Normal [facility] Comment on above: Order Comment: Speci men Type: BLOOD SPECIMENOrdering Facility: [facility] Address: [address] [place] [address] Performed By: #### 5 7021-8 ####[facility] LABORATORYCLIA [id number] [address] [place] RBC (Bld) [#/Vol] 3.77 10*6/uL Low 3.90-5.20 [facility] Comment on above: Order Comment: Speci men Type: BLOOD SPECIMENOrdering Facility: [facility] Address: [address] [place] [address] Performed By: #### 5 7021-8 ####[facility] LABORATORYCLIA [id number] [address] RED CELL MORPH Reviewed: see result s of individual morphologies Normal [facility] Comment on above: Order Comment: Speci men Type: BLOOD SPECIMENOrdering Facility: [facility] Address: [address] [place] [address] Performed By: #### 5 7021-8 ####[facility] LABORATORYCLIA [id number] [address] [place] WBC (Bld) [#/Vol] 19.81 10*3/uL High 3.70-11.00 [facility] Comment on above: Order Comment: Speci men Type: BLOOD SPECIMENOrdering Facility: [facility] Address: [address] [place] [address] Performed By: #### 5 7021-8 ####[facility] LABORATORYCLIA [id number] [address] WBC Left Shift Ql (Bld) Present Normal A [facility] Comment on above: Order Comment: Speci men Type: BLOOD SPECIMENOrdering Facility: [facility] Address: [address] [place] [address] Performed By: #### 5 7021-8 ####[facility] LABORATORYCLIA [id number] [address] CONSULTon 03-07-2025 CONSULT HNO ID: [id number] Author: CHACORTA WOOD MD Service: Hospital Medicine Author Type: Physician Type: Consults Filed: 03/07/2025 18:02 Note Text: DEPARTMENT OF HOSPITAL MEDICINE INITIAL CONSULT SERVICE DATE: 03/07/2025 SERVICE TIME: 4:01 PM Primary Care Physician: aMti Augustine DO, DO NIGHT AND WEEKEND COVERAGE: JUSTIN COVERAGE: From 7am - 7pm, please call team pager After 7pm, please call cross cover pager #[phone] REASON FOR CONSULT: Perioperative medical optimization. REQUESTING [...] mg ORAL (more content not included)... Normal [facility] 03-07 Magnesium [Mass/Vol] 2.2 mg/dL Normal 1.7-2.3 [facility] Comment on above: Order Comment: Speci men Type: BLOOD SPECIMENOrdering Facility: [facility] Address: [address] [place] [address] Performed By: #### 1 9123-9, 03073-5, 2777-1 ####[facility] LABORATORYCLIA [id number] [address] NURSING PROGon 03-07-2025 NURSING PROG HNO ID: [id number] Author: FABIENNE URENA RN Service: Nursing Author Type: Registered Nurse Type: Nursing Progress Note Filed: 03/07/2025 09:59 Note Text: Transfer Note: PATIENT NAME: Sierra Patton Patient Location: [place] [address] [address] 10-03 Room: [place] [address] Patient transferred into room/unit [facility] in stable condition. Actions taken: Report given/called to Niharika SO Normal [facility] Phosphate [Mass/Vol] 4.5 mg/dL Normal 2.7-4.8 [facility] Comment on above: Order Comment: Speci devon Type: BLOOD SPECIMENOrdering Facility: [facility] Address: [address] [place] [address] Performed By: #### 1 9123-9, 45844-4, 2777-1 ####[facility] LABORATORYCLIA [id number] [address] THERAPY NTon 03-07-2025 THERAPY NT HNO ID: [id number] Author: MARLENY SUMMERS, OTR/L Service: Occupational Therapy Author Type: Occupational Therapist Type: Therapy (PT/OT/Speech/Resp) Filed: 03/07/2025 14:00 Note Text: Occupational Therapy Evaluation Summary SERVICE DATE: 03/07/2025 SERVICE TIME: 1325 to 1352 ROOM: [place] [address] OT 6 Clicks Score: 19 DISCHARGE RECOMMENDATIONS [...] Presented to outside hospital and transfered to [facility] for neurosurgery evaluation. s/p R frontal crani [...] living (ADL) TREATMENT INTERVENTIONS Evaluation, Cognitive Training (06010 and 71162) Timed Code Treatment (minutes): 10 Skilled Treatment Time (minutes): 27 $ Evaluation - Moderate (61916) Billed Units: 1 unit Cognitive Training First 15 Minutes (18106) : 10 $ Cognitive Training First 15 Minutes (58755) Billed Units: 1 unit TRAINING AND EDUCATION [...] Treatment In (more content not included)... Normal [facility] THERAPY NT HNO ID: [id number] Author: TONYA MARIE, PT Service: Physical Therapy Author Type: Physical Therapist Type: Therapy (PT/OT/Speech/Resp) Filed: 03/07/2025 12:08 Note Text: Physical Therapy Evaluation Summary SERVICE DATE: 03/07/2025 SERVICE TIME: 910 to 935 ROOM: [id number] PT 6 Clicks Score: 20 DISCHARGE RECOMMENDATIONS [...] Presented to outside hospital and transfered to [facility] for neurosurgery evaluation. s/p R frontal crani [...] Difficulty walking-musculoskeletal TREATMENT INTERVENTIONS Evaluation, Gait Training (64583) Timed Code Treatment (minutes): 8 Skilled Treatment Time (minutes): 25 $ Evaluation-Moderate (11004) Billed Units: 1 unit Gait Training (08174) Treatment Minutes: 8 $ Gait Training (21802) Billed Units: 1 unit See grid as [...] Flexed trunk posture Gait Distance (feet): 5ftx2, [id number] Stairs RANGE OF MOTION Lower Extremity Comments [...] March 07, 2025 TIME: 12:07 PM Normal [facility] ANES POSTPROC EVALon 025 ANES POSTPROC EVAL HNO ID: [id number] Author: PRINCESS BOONE MD Service: Anesthesiology Author [...] March 06, 2025 TIME: 4:11 PM CSN: [id number] Normal [facility] ANES PRE-OPon 03-06-2025 ANES PRE-OP HNO ID: [id number] Author: LYDIA PEARSON DO Service: Anesthesiology Author Type: Anesthesiologist Type: Anesthesia Preprocedure Evaluation Filed: 03/06/2025 08:54 Note Text: ANESTHESIOLOGY DAY OF SURGERY NOTE : 1970 Procedure Information Date/Time: 03/06/25929 Procedures: CRANIOTOMY FOR EXCISION SUPRATENTORIAL MENINGIOMA (Bilateral: Head) BRAINLAB STEREOTACTIC COMPUTER-ASSISTED NAVIGATIONAL PROCEDURE CRANIAL (Bilateral) Location: ID OR / ID OR Surgeons: Fabrizio Ambrocio MD Estimated body [...] and consent discussed: yes. Patient / Responsible Republican agrees to proceed: yes Patient / Surrogate [...] tablet Take (more content not included)... Normal [facility] Basic metabolic 2000 panelon 03-06-2025 Anion gap [Moles/Vol] 12 mmol/L Normal 8-15 [facility] Comment on above: Order Comment: Speci men Type: BLOOD SPECIMENOrdering Facility: [facility] Address: [address] [place] [address] Performed By: #### 3 016-3, , 40242-7, 2776- ####[facility] LABORATORYCLIA [id number] [place] [address] [place] Calcium [Mass/Vol] 8.8 mg/dL Normal 8.5-10.2 [facility] Comment on above: Order Comment: Speci men Type: BLOOD SPECIMENOrdering Facility: [facility] Address: [address] [place] [address] Performed By: #### 3 016-3, , 24413-0, 2776- ####[facility] LABORATORYCLIA [id number] [place] [address] [place] Chloride [Moles/Vol] 98 mmol/L Normal 98-107 [facility] Comment on above: Order Comment: Speci men Type: BLOOD SPECIMENOrdering Facility: [facility] Address: [address] [place] [address] Performed By: #### 3 016-3, , 52913-1, 2776-10 ####[facility] LABORATORYCLIA [id number] [place] [address] [place] CO2 [Moles/Vol] 30 mmol/L Normal 22-30 [facility] Comment on above: Order Comment: Speci men Type: BLOOD SPECIMENOrdering Facility: [facility] Address: [address] [place] [address] Performed By: #### 3 016-3, , 86997-9, 2776- ####[facility] LABORATORYCLIA [id number] [place] [address] [place] Creatinine [Mass/Vol] 1.03 mg/dL High 0.58-0.96 [facility] Comment on above: Order Comment: Speci men Type: BLOOD SPECIMENOrdering Facility: [facility] Address: [address] [place] [address] Performed By: #### 3 016-3, , 20851-0, 2777-1 ####[facility] LABORATORYIA [id number] [address] OF [facility] Creatinine and Glomerular filtration rate.predicted panel (S/P/Bld) 65 mL/min/1.73m??? Normal >=60 [facility] Comment on above: Order Comment: Tiffanie devon Type: BLOOD SPECIMENOrdering Facility: [facility] Address: [address] [place] [address] Result Comment: Eleanor mated Glomerular Filtration Rate [...] actual GFR. Performed By: #### 3 016-3, 07540-1, 31305-1, 277- ####[facility] COUNTYIA [id number] [place] [address] [place] Glucose [Mass/Vol] 114 mg/dL High 74-99 [facility] Comment on above: Order Comment: Tiffanie osorio Type: BLOOD SPECIMENOrdering Facility: [facility] Address: [address] [place] [address] Result Comment: The [place] [employer] Association (ADA) provides guidance for cutoff [...] Standards of Medical Care in Diabetes 2016, [place] [employer]. Diabetes Care. 2016.39(Suppl 1). Performed By: #### 3 016-3, 76180-7, 61948-6, 2777-1 ####[facility] LABORATORYCLIA [id number] [place] [address] [place] Potassium [Moles/Vol] 3.7 mmol/L Normal 3.7-5.1 [facility] Comment on above: Order Comment: Speci men Type: BLOOD SPECIMENOrdering Facility: [facility] Address: [address] [place] [address] Performed By: #### 3 016-3, 38145-5, 43310-0, 2777-1 ####[facility] LABORATORYCLIA [id number] [address] STATES OF [facility] Sodium [Moles/Vol] 140 mmol/L Normal 136-144 [facility] Comment on above: Order Comment: Speci men Type: BLOOD SPECIMENOrdering Facility: [facility] Address: [address] [place] [address] Performed By: #### 3 016-3, 26999-3, 47714-5, 2777-1 ####[facility]PITALCLIA [id number] [address] STATES [facility] Urea nitrogen [Mass/Vol] 28 mg/dL High 7-21 [facility] Comment on above: Order Comment: Speci men Type: BLOOD SPECIMENOrdering Facility: [facility] Address: [address] [place] [address] Performed By: #### 3 016-3, 08260-1, 56936-9, 2777-1 ####[facility] LABORATORYCLIA [id number] [address] STATES OF [facility] CBC panel Auto (Bld)on 03-06 Erythrocyte distribution width (RBC) [Ratio] 14.9 % Normal 11.5-15.0 [facility] Comment on above: Order Comment: Speci men Type: BLOOD SPECIMENOrdering Facility: [facility] Address: [address] [place] [address] Performed By: #### 5 8410-2 ####[facility] LABORATORYCLIA [id number] [address] Hematocrit (Bld) [Volume fraction] 33.7 % Low 36.0-46.0 [facility] Comment on above: Order Comment: Speci men Type: BLOOD SPECIMENOrdering Facility: [facility] Address: [address] [place] [address] Performed By: #### 5 8410-2 ####[facility] LABORATORYCLIA [id number] [address] OF [facility] Hemoglobin (Bld) [Mass/Vol] 11.2 g/dL Low 11.5-15.5 [facility] Comment on above: Order Comment: Speci men Type: BLOOD SPECIMENOrdering Facility: [facility] Address: [address] [place] [address] Performed By: #### 5 8410-2 ####[facility] LABORATORYCLIA [id number] [address] [place] MCH (RBC) [Entitic mass] 28.6 pg Normal 26.0-34.0 [facility] Comment on above: Order Comment: Speci men Type: BLOOD SPECIMENOrdering Facility: [facility] Address: [address] [place] [address] Performed By: #### 5 8410-2 ####[facility] LABORATORYCLIA [id number] [address] [place] MCHC (RBC) [Mass/Vol] 33.2 g/dL Normal 30.5-36.0 [facility] Comment on above: Order Comment: Speci men Type: BLOOD SPECIMENOrdering Facility: [facility] Address: [address] [place] [address] Performed By: #### 5 8410-2 ####[facility] LABORATORYCLIA [id number] [address] [place] MCV (RBC) [Entitic vol] 86.0 fL Normal 80.0-100.0 [facility] Comment on above: Order Comment: Speci men Type: BLOOD SPECIMENOrdering Facility: [facility] Address: [address] [place] [address] Performed By: #### 5 8410-2 ####[facility] LABORATORYCLIA [id number] [place] [address] [place] Nucleated RBC (Bld) [#/Vol] 10*3/uL Normal <0.01 [facility] Comment on above: Order Comment: Speci men Type: BLOOD SPECIMENOrdering Facility: [facility] Address: [address] [place] [address] Performed By: #### 5 8410-2 ####[facility] LABORATORYCLIA [id number] [address] [place] Platelet mean volume (Bld) [Entitic vol] 9.1 fL Normal 9.0-12.7 [facility] Comment on above: Order Comment: Speci men Type: BLOOD SPECIMENOrdering Facility: [facility] Address: [address] [place] [address] Performed By: #### 5 8410-2 ####[facility] LABORATORYCLIA [id number] [address] [place] Platelets (Bld) [#/Vol] 353 10*3/uL Normal 150-400 [facility] Comment on above: Order Comment: Speci men Type: BLOOD SPECIMENOrdering Facility: [facility] Address: [address] [place] [address] Performed By: #### 5 8410-2 ####[facility] LABORATORYCLIA [id number] [address] [place] RBC (Bld) [#/Vol] 3.92 10*6/uL Normal 3.90-5.20 [facility] Comment on above: Order Comment: Speci men Type: BLOOD SPECIMENOrdering Facility: [facility] Address: [address] [place] [address] Performed By: #### 5 8410-2 ####[facility] LABORATORYCLIA [id number] [place] [address] [place] WBC (Bld) [#/Vol] 20.37 10*3/uL High 3.70-11.00 [facility] Comment on above: Order Comment: Speci men Type: BLOOD SPECIMENOrdering Facility: [facility] Address: [address] [place] [address] Performed By: #### 5 8410-2 ####[facility] LABORATORYCLIA [id number] [address] CONFIRM BLOOD TYPEon 025 ABO O Normal [facility] Comment on above: Order Comment: Speci men Type: BLOOD SPECIMENOrdering Facility: [facility] Address: [address] [place] [address] Performed By: #### C ONABO ####[facility] BLOOD BANKCLIA [id number] [place] [id number] [facility] Rh Nom (Bld) Negative Normal [facility] Comment on above: Order Comment: Speci men Type: BLOOD SPECIMENOrdering Facility: [facility] Address: [address] [place] [address] Performed By: #### C ONABO ####[facility] BLOOD BANKCLIA [id number] [address] OF [place] BRAIN WO IVCONon 03-06-[address] BRAIN WO IVCON * * *Final Report* * * DATE OF EXAM: Mar 06 2025 5:48PM [facility] 0504 - CT BRAIN WO IVCON / [...] at site of prior mass, with adjacent ylgfi-cyysxnaq-ajlcf left-sided and small right-sided parenchymal defects/parenchymal hypodensities [...] arthritic changes and likely related condylar sclerosis. Corporation Lawyer (topogram) images: Non-diagnostic. 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 Some tanya-resectional/prior perilesional frontal parenchymal changes as above. Other details above. Commercial Lines Underwriter: PSCB Transcribe Date/Time: Mar 06 2025 5:53P Dictated by : LUIS RINCON MD This examination was interpreted and the report reviewed and electronically signed by: LUIS RINCON MD on Mar 06 2025 6:02PM EST [id number] Normal [facility] HISTORY PHYSICALon HISTORY PHYSICAL HNO ID: [id number] Author: MARI FRNACISCO APRN.HABILITATION WORKER Service: Neurology ICU Author Type: Nurse Practitioner [...] Right Radial <1 day Peripheral 03/06/25 0545 [facility] Short Left Antecubital 22 Gauge <1 day Peripheral 03/06/25 1009 Left Hand 18 Gauge <1 day Drain Duration Indwelling Urinary Catheter 03/06/25 1000 [place] 16 Fr <1 day PERSONAL INVOLVEMENT IN CARE: Reviewing initi (more content not included)... Normal [facility] Magnesium SerPl-mCncon 03-06 Magnesium [Mass/Vol] 2.0 mg/dL Normal 1.7-2.3 [facility] Comment on above: Order Comment: Speci men Type: BLOOD SPECIMENOrdering Facility: [facility] Address: [address] [place] [address] Performed By: #### 3 016-3, 42302-6, 68532-9, 2777-1 ####[facility] LABORATORYCLIA [id number] [address] OF [facility] OPERATIVE NOon 03-06-2025 OPERATIVE NO HNO ID: [id number] Author: FABRIZIO AMBROCIO MD Service: Neurosurgery Author Type: Physician Type: Operative Report Filed: 03/22/2025 08:37 Note Text: OPERATIVE/PROCEDURE REPORT LOG ID: [id number] SURGERY/PROCEDURE DATE: 03/06/2025 INCISION/PROCEDURE START TIME: 10:16 AM INCISION CLOSE/PROCEDURE END TIME: 3:32 PM SURGEON(S)/PROCEDURALIST (S) AND IDENTIFICATION TECHNICIAN(S): Surgeons and Role: * Fabrizio Ambrocio MD - Primary * Mavis Cobos MD Rn Patient Services Physician Rn Patient Services: Rahul Whitfield PA-C Denture Laboratory Technician: Mk Arndt APRN.CNP SURGERY/PROCEDURE(S): Right frontal pterional [...] supine position the head wassecured in the Cuddy 3 pin head clamp and patient was [...] attachment t (more content not included)... Normal [facility] Pathology biopsy report Mike (Tiss)on 03-06-2025 AMENDED REPORT DETAIL Normal [facility] Comment on above: Order Comment: Speci men Type: TISSUE SPECIMENOrdering Facility: [facility] Address: [address] [place] [address] Result Comment: Amen ded: 03/14/2025 8:13 AM This report is being amended to reflect a change in the diagnostic field. The original report did not include both parts A and B, which has been corrected. There is no change to the actual diagnosis. Dr. Ambrocio was notified of this change by [employer] message on 03/14/2025. Edited results: Previously reported on 03/11/2025 at 3:13 PM EDT. Performed By: #### 6 6121-5 ####[facility] LABORATORYCLIA [id number] [address] OF [facility] AP DISCLAIMER Normal [facility] Comment on above: Order Comment: Speci men Type: TISSUE SPECIMENOrdering Facility: [facility] Address: [address] [place] [address] Result Comment: Naheed donahue Developed Test (LDT) Disclaimer: Performance characteristics of immunohistochemical, immunofluorescent, and chromogenic in-situ hybridization tests have been determined by the performing laboratory within [facility]'s [facility] Pathology and Laboratory Medicine Department ([facility], [facility], [facility], [facility], [facility], [facility], or [facility]) in a manner consistent with CLIA requirements. One or more of these tests may not have been cleared or approved by the FDA. [facility] is regulated under CLIA as qualified to perform high-complexity testing. These tests are used for clinical purposes. These should not be regarded as investigational or for research. Positive and negative controls stain appropriately. Performed By: #### 6 6121-5 ####[facility] COUNTYIA [id number] [address] STATES [place] CASE REPORT Normal [facility] Comment on above: Order Comment: Speci men Type: TISSUE SPECIMENOrdering Facility: [facility] Address: [address] [place] [address] Result Comment: Surg [facility] Pathology Report Case: [id number] Authorizing Provider: Fabrizio Ambrocio MD Collected: 03/06/2025 11:41 AM Ordering Location: [facility] Received: 03/06/2025 11:48 AM Pathologist: Godwin Em MD Intraop: Mike Puckett MD Specimens: A) - Brain, Resection, Brain tumor B) - Brain, Resection, tumor Performed By: #### 6 6121-5 ####[facility] LABORATORYCLIA [id number] [address] [place] CLINICAL HISTORY Normal [facility] Comment on above: Order Comment: Speci men Type: TISSUE SPECIMENOrdering Facility: [facility] Address: [address] [place], [place] [address] Result Comment: Pre- op diagnosis: Brain mass [G93.89] Performed By: #### 6 6121-5 ####[facility] LABORATORYCLIA [id number] [address] DIAGNOSIS COMMENT Normal [facility] Comment on above: Order Comment: Speci men Type: TISSUE SPECIMENOrdering Facility: [facility] Address: [address] [place] [address] Result Comment: Immu nohistochemical stains performed on Part B reveal the tumor to be positive for NADIA and show a Ki-67 labeling index of <4%. This case was reviewed by Dr. Mike Puckett who agrees with this assessment. Corrected results: Previously reported on 03/11/2025 at 3:13 PM EDT. Performed By: #### 6 6121-5 ####[facility] LABORATORYCLIA [id number] [address] FINAL DIAGNOSIS Normal [facility] Comment on above: Order Comment: Speci men Type: TISSUE SPECIMENOrdering Facility: [facility] Address: [address] [place] [address] Result Comment: Sis Alvarez. Brain tumor, resection: - Meningioma, transitional type, WHO Grade 1. See comment. Amendment electronically signed by Godwin Em MD on 03/14/2025 at 0815 EDT at 1513 EDT Corrected results: Previously reported on 03/11/2025 at 3:13 PM EDT. Performed By: #### 6 6121-5 ####[facility] LABORATORYCLIA [id number] [address] FINAL PERFORMING LAB Normal [facility] Comment on above: Order Comment: Speci men Type: TISSUE SPECIMENOrdering Facility: [facility] Address: [address] [place] [address] Result Comment: Diag nostic interpretation performed at: [facility], [address] [place] [address] CLIA# [id number] Directory Compiler: Godwin Em MD Performed By: #### 6 6121-5 ####[facility] LABORATORYCLIA [id number] [address] [place] GROSS DESCRIPTION Normal [facility] Comment on above: Order Comment: Speci men Type: TISSUE SPECIMENOrdering Facility: [facility] Address: [address] [place] [address] Result Comment: Marium sykes, Resection Received fresh for intraoperative consultation labeled brain tumor are multiple pink-gibson soft tissue fragments aggregating to 0.9 x 0.4 x 0.2 cm. A touch prep is performed. Half of the tissue is submitted in FS A1 and the remaining Is submitted in A2. Gross examination performed at [facility], [address] [place] [address] CLIA#[id number] OLS March 06, 2025 12:32 PM B. Brain, Resection Received in formalin labeled brain tumor is a irregular quezada-pink, friable, soft tissue fragment measuring 2.8 x 2.5 x 1.7 cm and weighing 3.8 g. The specimen is submitted entirely in B1-B3. Gross examination performed at [facility], [address] [place] [address] CLIA#[id number] [facility] March 07, 2025 8:06 AM Performed By: #### 6 6121-5 ####[facility] LABORATORYCLIA [id number] [address] STATES OF [facility] INTRAOPERATIVE DIAGNOSIS Normal [facility] Comment on above: Order Comment: Speci men Type: TISSUE SPECIMENOrdering Facility: [facility] Address: [address] [place] [address] Result Comment: Marium sykes, Resection FS A 1+ touch prep: Brain tumor: Meningioma (Dr. Parekh/Dr. Puckett) Intraoperative examination performed at [facility], [address] [place] [address] CLIA# [id number] Performed By: #### 6 6121-5 ####[facility] LABORATORYCLIA [id number] [place] [address] [place] Phosphate SerPl-mCncon 03-06 Phosphate [Mass/Vol] 6.8 mg/dL High 2.7-4.8 [facility] Comment on above: Order Comment: Speci men Type: BLOOD SPECIMENOrdering Facility: [facility] Address: [address] [place] [address] Performed By: #### 3 016-3, 12763-2, 62403-1, 2777-1 ####[facility] LABORATORYCLIA [id number] [address] STATES OF [facility] STAPHYLOCOCCUS AUREUS AND MR SA SCREEN, PCR, NASALon 03-06-2025 S. aureus and MRSA panel GIANCARLO+probe (Nose) Methicillin-SUSCEPTIBLE Staphylococcus aureus Detected Abnormal Not Detected [facility] Comment on above: Order Comment: Speci men Type: SWABOrdering Facility: [facility] Address: [address] [place] [address] Performed By: #### S APCR ####[facility] LABORATORYCLIA [id number] [address] [place] TSH SerPl-aCncon 03-06-2025 TSH Qn 0.485 m[IU]/L Normal 0.270-4.200 [facility] Comment on above: Order Comment: Speci men Type: BLOOD SPECIMENOrdering Facility: [facility] Address: [address] [place] [address] Performed By: #### 3 016-3, 05698-6, 17597-2, 2777-1 ####[facility] LABORATORYCLIA [id number] [address] [place] ALLIED HEALTHon 03-05-2025 ALLIED HEALTH HNO ID: [id number] Author: MARIE DIAZ Chaplain Service: Spiritual Care Author Type: Type: Allied Health Filed: 03/05/2025 21:29 Note Text: SPIRITUAL CARE PROGRESS NOTE SERVICE DATE: 03/05/2025 SERVICE TIME: 8:15pm Pre Surgery visit To contact the Spiritual Care Department: Please call [phone]. SIGNATURE: Chaplain Alfredito PATIENT NAME: Sierra Patton DATE: March 05, 2025 TIME: 9:27 PM PAGER/CONTACT #: [phone] Normal [facility] CONSULT PROGon 03-05-2025 CONSULT PROG HNO ID: [id number] Author: TORSTEN HALEY APRN.HABILITATION WORKER Service: Neurosurgery Author Type: Nurse Practitioner Type: [...] tomorrow with Dr. Ambrocio -regular diet -Dex 1giJ0gw -Keppra 500mg bid for seizure ppx Parts of this note may have been copied from one of my previous notes and remain pertinent. The documentation has been reviewed and edited as necessary to support the clinical decision making for today's visit. SIGNATURE: Torsten Haley APRN.CNP PATIENT NAME: Sierra Patton DATE: March 05, 2025 TIME: 11:37 AM Pager: [phone] Normal [facility] PT panel Coag (PPP)on 2024 INR Coag (PPP) [Relative time] 1.0 {INR} Normal 0.9-1.3 [facility] Comment on above: Order Comment: Speci men Type: BLOOD SPECIMENOrdering Facility: [facility] Address: [address] [place] [address] Result Comment: Kristin min K Antagonist (VKA) Therapeutic Range: INR 2 to 3 (Target INR of 2.5) Note: For patients treated with VKA drugs, such as warfarin, the [place] [employer] 2012 Guideline recommends [...] Chest 2012, 141:7S-47S Kin RA, et al. [facility] 2017, 70: 252-289 Performed By: #### 3 4528-0, 87908-0 ####[facility] LABORATORYCLIA [id number] [place] [address] [place] PT Coag (PPP) [Time] 11.2 s Normal 9.7-13.0 [facility] Comment on above: Order Comment: Speci men Type: BLOOD SPECIMENOrdering Facility: [facility] Address: [address] [place] [address] Performed By: #### 3 4528-0, 88373-1 ####[facility] LABORATORYCLIA [id number] [address] [place] TYPE + SCREENon 03-05-2025 ABO O Normal [facility] Comment on above: Order Comment: Speci men Type: BLOOD SPECIMENOrdering Facility: [facility] Address: [address] [place] [address] Performed By: #### T SCR ####[facility] BLOOD BANKCLIA [id number] [address] [place] Rh Nom (Bld) Negative Normal [facility] Comment on above: Order Comment: Speci men Type: BLOOD SPECIMENOrdering Facility: [facility] Address: [address] [place] [address] Performed By: #### T SCR ####[facility] BLOOD BANKCLIA [id number] [address] TYPE AND SCREEN EXPIRATION 03/08/2025 23:59 Normal [facility] Comment on above: Order Comment: Speci men Type: BLOOD SPECIMENOrdering Facility: [facility] Address: [address] [place] [address] Performed By: #### T SCR ####[facility] BLOOD BANKCLIA [id number] [address] aPTT PPPon 03-05-2025 aPTT Coag (PPP) [Time] 27.2 s Normal 23.0-32.4 [facility] Comment on above: Order Comment: Speci men Type: BLOOD SPECIMENOrdering Facility: [facility] Address: [address] [place] [address] Performed By: #### 3 4528-0, 57576-7 ####[facility] LABORATORYCLIA [id number] [address] CONSULT PROGon 03-04-2025 CONSULT PROG HNO ID: [id number] Author: TORSTEN HALEY APRN.HABILITATION WORKER Service: Neurosurgery Author Type: Nurse Practitioner Type: [...] making for today's visit. SIGNATURE: Torsten Haley APRN.HABILITATION WORKER PATIENT NAME: Sierra Patton DATE: March 04, 2025 TIME: 9:52 AM Pager: [phone] Normal [facility] Basic metabolic 2000 panelon 03-03-2025 Anion gap [Moles/Vol] 11 mmol/L Normal 8-15 [facility] Comment on above: Order Comment: Speci men Type: BLOOD SPECIMENOrdering Facility: [facility] Address: [address] [place] [address] Performed By: #### 1 9123-9, 52338-5 ####[facility] LABORATORYCLIA [id number] [place] [address] [place] Calcium [Mass/Vol] 8.8 mg/dL Normal 8.5-10.2 [facility] Comment on above: Order Comment: Speci men Type: BLOOD SPECIMENOrdering Facility: [facility] Address: [address] [place] [address] Performed By: #### 1 9123-9, 33960-2 ####[facility] LABORATORYCLIA [id number] [place] [address] [place] Chloride [Moles/Vol] 102 mmol/L Normal 98-107 [facility] Comment on above: Order Comment: Speci men Type: BLOOD SPECIMENOrdering Facility: [facility] Address: [address] [place] [address] Performed By: #### 1 9123-9, 49651-1 ####[facility] LABORATORYCLIA [id number] [place] [address] [place] CO2 [Moles/Vol] 27 mmol/L Normal 22-30 [facility] Comment on above: Order Comment: Tiffanie devon Type: BLOOD SPECIMENOrdering Facility: [facility] Address: [address] [place] [address] Performed By: #### 1 9123-9, 10247-5 ####[facility] HOSPITALCLIA [id number] [place] [address] [place] Creatinine [Mass/Vol] 1.15 mg/dL High 0.58-0.96 [facility] Comment on above: Order Comment: Speci men Type: BLOOD SPECIMENOrdering Facility: [facility] Address: [address] [place] [address] Performed By: #### 1 9123-9, 45873-8 ####[facility] COUNTYIA [id number] [address] Creatinine and Glomerular filtration rate.predicted panel (S/P/Bld) 57 mL/min/1.73m??? Low >=60 [facility] Comment on above: Order Comment: Tiffanie osorio Type: BLOOD SPECIMENOrdering Facility: [facility] Address: [address] [place] [address] Result Comment: Eleanor mated Glomerular Filtration Rate [...] actual GFR. Performed By: #### 1 9123-9, 06142-9 ####[facility] LABORATORYCLIA [id number] [place] [address] [place] Glucose [Mass/Vol] 101 mg/dL High 74-99 [facility] Comment on above: Order Comment: Chavamaddi osorio Type: BLOOD SPECIMENOrdering Facility: [facility] Address: [address] [place] [address] Result Comment: The [place] [employer] (ADA) provides guidance for cutoff [...] Standards of Medical Care in Diabetes 2016, [place] [employer] Association. Diabetes Care. 2016.39(Suppl 1). Performed By: #### 1 9123-9, 71590-9 ####[facility] LABORATORYCLIA [id number] [place] [address] [place] Potassium [Moles/Vol] 3.9 mmol/L Normal 3.7-5.1 [facility] Comment on above: Order Comment: Tiffanie osorio Type: BLOOD SPECIMENOrdering Facility: [facility] Address: [address] [place] [address] Performed By: #### 1 91239, 89726-5 ####[facility] HOSPITALCLIA [id number] [address] STATES OF [facility] Sodium [Moles/Vol] 140 mmol/L Normal 136-144 [facility] Comment on above: Order Comment: Tiffanie osorio Type: BLOOD SPECIMENOrdering Facility: [facility] Address: [address] [place] [address] Performed By: #### 1 91239, 83098-2 ####[facility] LABORATORYCLIA [id number] [address] STATES OF [facility] Urea nitrogen [Mass/Vol] 29 mg/dL High 7-21 [facility] Comment on above: Order Comment: Tifafnie osorio Type: BLOOD SPECIMENOrdering Facility: [facility] Address: [address] [place] [address] Performed By: #### 1 91239, 20219-6 ####[facility] LABORATORYCLIA [id number] [place] [address] [place] CBC W Auto Differential pane l (Bld)on 03-03-2025 Basophils (Bld) [#/Vol] 0.05 10*3/uL Normal <0.11 [facility] Comment on above: Order Comment: Speci men Type: BLOOD SPECIMENOrdering Facility: [facility] Address: [address] [place] [address] Performed By: #### 5 7021-8 ####[facility]ORATORYCLIA [id number] [address] [place] Basophils/100 WBC (Bld) 0.5 % Normal [facility] Comment on above: Order Comment: Speci men Type: BLOOD SPECIMENOrdering Facility: [facility] Address: [address] [place] [address] Performed By: #### 5 7021-8 ####[facility]ORATORYCLIA [id number] [address] [place] Differential cell count method Nom (Bld) Auto Normal [facility] Comment on above: Order Comment: Speci men Type: BLOOD SPECIMENOrdering Facility: [facility] Address: [address] [place] [address] Performed By: #### 5 7021-8 ####[facility]ORATORYCLIA [id number] [place] [address] [place] Eosinophils (Bld) [#/Vol] 0.13 10*3/uL Normal <0.46 [facility] Comment on above: Order Comment: Speci men Type: BLOOD SPECIMENOrdering Facility: [facility] Address: [address] [place] [address] Performed By: #### 5 7021-8 ####[facility]ORATORYCLIA [id number] [address] [place] Eosinophils/100 WBC (Bld) 1.4 % Normal [facility] Comment on above: Order Comment: Speci men Type: BLOOD SPECIMENOrdering Facility: [facility] Address: [address] [place] [address] Performed By: #### 5 7021-8 ####[facility]ORATORYCLIA [id number] [address] Erythrocyte distribution width (RBC) [Ratio] 14.9 % Normal 11.5-15.0 [facility] Comment on above: Order Comment: Speci men Type: BLOOD SPECIMENOrdering Facility: [facility] Address: [address] [place] [address] Performed By: #### 5 7021-8 ####[facility] LABORATORYCLIA [id number] [address] [place] Hematocrit (Bld) [Volume fraction] 35.6 % Low 36.0-46.0 [facility] Comment on above: Order Comment: Speci men Type: BLOOD SPECIMENOrdering Facility: [facility] Address: [address] [place] [address] Performed By: #### 5 7021-8 ####[facility] LABORATORYCLIA [id number] [address] [place] Hemoglobin (Bld) [Mass/Vol] 11.6 g/dL Normal 11.5-15.5 [facility] Comment on above: Order Comment: Speci men Type: BLOOD SPECIMENOrdering Facility: [facility] Address: [address] [place] [address] Performed By: #### 5 7021-8 ####[facility] LABORATORYCLIA [id number] [address] [place] Immature granulocytes (Bld) [#/Vol] 0.21 10*3/uL High <0.10 [facility] Comment on above: Order Comment: Speci men Type: BLOOD SPECIMENOrdering Facility: [facility] Address: [address] [place] [address] Performed By: #### 5 7021-8 ####[facility] LABORATORYCLIA [id number] [address] [place] Immature granulocytes/100 WBC (Bld) 2.3 % Normal [facility] Comment on above: Order Comment: Speci men Type: BLOOD SPECIMENOrdering Facility: [facility] Address: [address] [place] [address] Performed By: #### 5 7021-8 ####[facility] LABORATORYCLIA [id number] [address] OF [facility] Lymphocytes (Bld) [#/Vol] 2.99 10*3/uL Normal 1.00-4.00 [facility] Comment on above: Order Comment: Speci men Type: BLOOD SPECIMENOrdering Facility: [facility] Address: [address] [place] [address] Performed By: #### 5 7021-8 ####[facility] LABORATORYCLIA [id number] [address] Lymphocytes/100 WBC (Bld) 32.3 % Normal [facility] Comment on above: Order Comment: Speci men Type: BLOOD SPECIMENOrdering Facility: [facility] Address: [address] [place] [address] Performed By: #### 5 7021-8 ####[facility] LABORATORYCLIA [id number] [address] STATES [facility] MCH (RBC) [Entitic mass] 28.1 pg Normal 26.0-34.0 [facility] Comment on above: Order Comment: Speci men Type: BLOOD SPECIMENOrdering Facility: [facility] Address: [address] [place] [address] Performed By: #### 5 7021-8 ####[facility] LABORATORYCLIA [id number] [address] OF [facility] MCHC (RBC) [Mass/Vol] 32.6 g/dL Normal 30.5-36.0 [facility] Comment on above: Order Comment: Speci men Type: BLOOD SPECIMENOrdering Facility: [facility] Address: [address] [place] [address] Performed By: #### 5 7021-8 ####[facility] LABORATORYCLIA [id number] [address] MCV (RBC) [Entitic vol] 86.2 fL Normal 80.0-100.0 [facility] Comment on above: Order Comment: Speci men Type: BLOOD SPECIMENOrdering Facility: [facility] Address: [address] [place] [address] Performed By: #### 5 7021-8 ####[facility]ORATORYCLIA [id number] [address] [place] Monocytes (Bld) [#/Vol] 0.56 10*3/uL Normal <0.87 [facility] Comment on above: Order Comment: Speci men Type: BLOOD SPECIMENOrdering Facility: [facility] Address: [address] [place] [address] Performed By: #### 5 7021-8 ####[facility] LABORATORYCLIA [id number] [address] [place] Monocytes/100 WBC (Bld) 6.0 % Normal [facility] Comment on above: Order Comment: Speci men Type: BLOOD SPECIMENOrdering Facility: [facility] Address: [address] [place] [address] Performed By: #### 5 7021-8 ####[facility] LABORATORYCLIA [id number] [address] [place] Neutrophils (Bld) [#/Vol] 5.33 10*3/uL Normal 1.45-7.50 [facility] Comment on above: Order Comment: Speci men Type: BLOOD SPECIMENOrdering Facility: [facility] Address: [address] [place] [address] Performed By: #### 5 7021-8 ####[facility]ORATORYCLIA [id number] [address] [place] Neutrophils/100 WBC (Bld) 57.5 % Normal [facility] Comment on above: Order Comment: Speci men Type: BLOOD SPECIMENOrdering Facility: [facility] Address: [address] [place] [address] Performed By: #### 5 7021-8 ####[facility]ORATORYCLIA [id number] [place] [address] [place] Nucleated RBC (Bld) [#/Vol] 10*3/uL Normal <0.01 [facility] Comment on above: Order Comment: Speci men Type: BLOOD SPECIMENOrdering Facility: [facility] Address: [address] [place] [address] Performed By: #### 5 7021-8 ####[facility] LABORATORYCLIA [id number] [address] [place] Nucleated RBC/100 WBC (Bld) [Ratio] 0.0 /100 WBC Normal [facility] Comment on above: Order Comment: Speci men Type: BLOOD SPECIMENOrdering Facility: [facility] Address: [address] [place] [address] Performed By: #### 5 7021-8 ####[facility] LABORATORYCLIA [id number] [address] [place] Platelet mean volume (Bld) [Entitic vol] 9.4 fL Normal 9.0-12.7 [facility] Comment on above: Order Comment: Speci men Type: BLOOD SPECIMENOrdering Facility: [facility] Address: [address] [place] [address] Performed By: #### 5 7021-8 ####[facility] LABORATORYCLIA [id number] [place] [address] [place] Platelets (Bld) [#/Vol] 309 10*3/uL Normal 150-400 [facility] Comment on above: Order Comment: Speci men Type: BLOOD SPECIMENOrdering Facility: [facility] Address: [address] [place] [address] Performed By: #### 5 7021-8 ####[facility] LABORATORYCLIA [id number] [place] [address] [place] RBC (Bld) [#/Vol] 4.13 10*6/uL Normal 3.90-5.20 [facility] Comment on above: Order Comment: Speci men Type: BLOOD SPECIMENOrdering Facility: [facility] Address: [address] [place] [address] Performed By: #### 5 7021-8 ####[facility] LABORATORYCLIA [id number] [place] [address] [place] WBC (Bld) [#/Vol] 9.27 10*3/uL Normal 3.70-11.00 [facility] Comment on above: Order Comment: Speci men Type: BLOOD SPECIMENOrdering Facility: [facility] Address: [address] [place] [address] Performed By: #### 5 7021-8 ####[facility] LABORATORYCLIA [id number] [address] [place] Magnesium SerPl-mCncon 03-03 Magnesium [Mass/Vol] 2.3 mg/dL Normal 1.7-2.3 [facility] Comment on above: Order Comment: Speci men Type: BLOOD SPECIMENOrdering Facility: [facility] Address: [address] [place] [address] Performed By: #### 1 9123-9, 55377-2 ####[facility] LABORATORYCLIA [id number] [address] [place] ALLIED HEALTHon 03-02-2025 ALLIED HEALTH HNO ID: [id number] Author: LEIDA BANUELOS RT(R) Service: Radiology Author [...] PATIENT PRESENTS WITH AN IMPLANTABLE OR ATTACHED ANIMAL ASSISTANT: No RADIOLOGY DEPARTMENT: CT; Exam(s) Completed: Brain PERIPHERAL IV DATA: Not applicable SIGNED BY: RT Mariola(R) March 02, 2025 4:08 PM Normal [facility] ALLIED HEALTH HNO ID: [id number] Author: JABIER MARTINEZ ? Service: Radiology Author Type: Radiologist Rn Patient Services Type: Allied Health Filed: 03/02/2025 10:02 Note [...] PATIENT PRESENTS WITH AN IMPLANTABLE OR ATTACHED ANIMAL ASSISTANT: No ALLERGIES: Reviewed and unchanged CONTRAST ALLERGY: NO. EXAM: MRI - CONTRAST TYPE: GROUP II PERIPHERAL IV DATA: Inpatient - refer to [facility] documentation RADIOLOGY DEPARTMENT: MR; Exam(s) Completed: Head: Routine Brain [place] MRA Brain Lab protocol. Loraine Administered: No SIGNATURE: Jabier Martinez PATIENT NAME: Sierra Patton DATE: March 02, 2025 TIME: 10:01 AM Normal [facility] CT BRAIN WO IVCONon 03-02-[address] BRAIN WO IVCON * * *Final Report* * * DATE OF EXAM: Mar 02 2025 4:10PM [facility] 0504 - CT BRAIN WO IVCON / PROCEDURE REASON: Brain/EYELET MAKER neoplasm, monitor * * * * Physician [...] cribriform plate tumor and adjacent parenchymal edema. Commercial Lines Underwriter: PSCB Transcribe Date/Time: Mar 02 2025 4:13P Dictated by : VENKATESH WATKINS MD This examination was interpreted and the report reviewed and electronically signed by: VENKATESH WATKINS MD on Mar 02 2025 4:16PM EST [id number] Normal [facility] MRA BRAIN WO IVCONon 025 MRA BRAIN WO IVCON * * *Final Report* * * DATE OF EXAM: Mar 02 2025 10:33AM [facility] 0272 - MRA BRAIN WO IVCON / PROCEDURE REASON: Brain/EYELET MAKER neoplasm, staging * * * * Physician Interpretation * * * * EXAMINATION: MRI BRAIN WO/W IVCON, MRA BRAIN WO IVCON CLINICAL HISTORY: Intracranial mass. TECHNIQUE: Sagittal high-resolution T2 and FLAIR as well as axial pre and postcontrast high-resolution T1 sequences through the brain. Intracranial MRA [id number] with multiplanar reconstructions. MQ: MRBWOW_2 Contrast: 9 [...] Intracranial vertebral arteries, basilar artery, and proximal TRANSMISSION SUPERVISOR segments bilaterally are patent and without significant focal narrowing or aneurysm. IMPRESSION: 1. 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 No other mass or pathologic intracranial enhancement. 2. No large arterial vessel occlusion, significant focal narrowing, or aneurysm on intracranial MRA. Commercial Lines Underwriter: PSCB Transcribe Date/Time: Mar 02 2025 11:01A Dictated by : HORTENSIA GRAY MD This examination was interpreted and the report reviewed and electronically signed by: HORTENSIA GRAY MD on Mar 02 2025 11:10AM EST [id number] Normal [facility] MRI BRAIN WO/W IVCONon 03-02 MRI BRAIN WO/W IVCON * * *Final Report* * * DATE OF EXAM: Mar 02 2025 10:33AM [facility] 0295 - MRI BRAIN WO/W IVCON / PROCEDURE REASON: Brain/EYELET MAKER neoplasm, monitor * * * * Physician Interpretation * * * * EXAMINATION: MRI BRAIN WO/W IVCON, MRA BRAIN WO IVCON CLINICAL HISTORY: Intracranial mass. TECHNIQUE: Sagittal high-resolution T2 and FLAIR as well as axial pre and postcontrast high-resolution T1 sequences through the brain. Intracranial MRA [id number] with multiplanar reconstructions. MQ: MRBWOW_2 Contrast: 9 [...] Intracranial vertebral arteries, basilar artery, and proximal TRANSMISSION SUPERVISOR segments bilaterally are patent and without significant focal narrowing or aneurysm. IMPRESSION: 1. 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 No other mass or pathologic intracranial enhancement. 2. No large arterial vessel occlusion, significant focal narrowing, or aneurysm on intracranial MRA. Commercial Lines Underwriter: LG Transcribe Date/Time: Mar 02 2025 11:01A Dictated by : HORTENSIA GRAY MD This examination was interpreted and the report reviewed and electronically signed by: HORTENSIA GRAY MD on Mar 02 2025 11:10AM EST [id number] Normal [facility] NURSING PROGon 03-02-2025 NURSING PROG HNO ID: [id number] Author: RENETTA AQUINO RN Service: ? Author [...] about 30 minutes of being reported. Normal [facility] CONSULTon 03-01-2025 CONSULT HNO ID: [id number] Author: FABRIZIO AMBROCIO MD Service: Neurosurgery Author [...] (radiology procedure) INTRAVENOUS DIRECTED PRN Aliya Reza APRN.HABILITATION WORKER levETIRAcetam 500 mg tab(s) (KEPPRA) 500 mg [...] ORAL D (more content not included)... Normal [facility] HISTORY PHYSICALon HISTORY PHYSICAL HNO ID: [id number] Author: JHON PULIDO II, MD Service: Hospital Medicine Author Type: Physician Type: H&P Filed: 03/01/2025 04:27 Note Text: DEPARTMENT OF HOSPITAL MEDICINE HISTORY AND PHYSICAL EXAM SERVICE DATE: 03/01/2025 SERVICE TIME: 3:07 AM Primary Care Physician: Mati Augustine DO, DO NIGHT AND WEEKEND COVERAGE: From 7am - 7pm, please call Sound attending After 7pm, please call cross cover pager #[phone] == ASSESSMENT AND PLAN: 1) Brain mass [...] HTN who presents to the hospital from [place] due to an incidentally discovered bifrontal lobe brain mass. The patient had an outside CT of her thyroid that picked up the mass incidentally. She was advised to go to the ED so she presented to [place]. She stayed there until a bed opened [...] pain, dysuria or LE swelling. Labs at [place] revealed WBCs of 11.8, Hgb of 10.9, [...] == ALLERGIES (more content not included)... Normal [facility] [id number] 02-28-2025 [id number] Missed Session Unexcused Pt did not call or show for Psych IOP on this date. Called pt and talked to her daughter, Steph. She reported that the pt was just diagnosed with a brain tumor and will be undergoing surgery tomorrow. Asked Steph to have her call when she is able. Pt will be discharged. [facility] Absolute lymphocyte countOrd ered By: Godwin Lynch on 02-28-2025 Lymphocytes Auto (Unsp spec) [#/Vol] 0.96 10*3/uL 0.83-4.51 [facility] Absolute neutrophil countOrd ered By: Godwin Lynch on 02-28-2025 Neutrophils (Bld) [#/Vol] 10.5 10*3/uL High 2.0-7.7 [facility] Anion gap in Serum or Plasma Ordered By: Godwin Lynch on 02-28-2025 Anion gap [Moles/Vol] 13 mmol/L 5-15 [facility] Automated lymphocyte count a s percentage of total leukocytesOrdered By: Godwin Lynch on 02-28-2025 Lymphocytes/100 WBC Auto (Unsp spec) 8.1 % Low 19-41 [facility] BUN/creatinine ratioOrdered By: Godwin Lynch on 02-28-2025 Urea nitrogen/Creatinine [Mass ratio] 15.1 mg/mg - [facility] Basic Metabolic Profile (BMP )on 02-28-2025 BUN/CRE 15.1 RATIO Normal - [facility] Comment on above: Performed By: #### L 500.2500, L100.0100 #### [facility] [address] [place], [address] Calcium [Mass/Vol] 9.8 mg/dL Normal 7.6-11.0 [facility] Comment on above: Performed By: #### L 500.2500, L100.0100 #### [facility] [address] [place], [address] Chloride [Moles/Vol] 105 mmol/L Normal 98-[address] [facility] Comment on above: Performed By: #### L 500.2500, L100.0100 #### [facility] [address] [place], [address] CO2 [Moles/Vol] 23.8 mmol/L Normal 21.0-32.0 [facility] Comment on above: Performed By: #### L 500.2500, L100.0100 #### [facility] [address] [place], [address] Creatinine [Mass/Vol] 0.85 mg/dL Normal 0.70-1.20 [facility] Comment on above: Performed By: #### L 500.2500, L100.0100 #### [facility] [address] [place], [address] ECRCL 78.23 ml/min Normal 50-250 [facility] Comment on above: Performed By: #### L 500.2500, L100.0100 #### [facility] [address] [place], [address] GAP 13 Normal 5-15 [facility] Comment on above: Performed By: #### L 500.2500, L100.0100 #### [facility] [address] [place], [address] GFR/1.73 sq M.predicted among non-blacks MDRD (S/P/Bld) [Vol rate/Area] 82 mL/min/{1.73_m2} Normal >60 [facility] Comment on above: Result Comment: mL/m in/1.73m2 CKD-EPI Creatinine Equation (2020) Performed By: #### L 500.2500, L100.0100 #### [facility] [address] [place], [address] Glucose [Mass/Vol] 158 mg/dL High 70-99 [facility] Comment on above: Performed By: #### L 500.2500, L100.0100 #### [facility] [address] [place], [address] Potassium [Moles/Vol] 4.1 mmol/L Normal 3.3-5.1 [facility] Comment on above: Performed By: #### L 500.2500, L100.0100 #### [facility] [address] [place], [address] Sodium [Moles/Vol] 142 mmol/L Normal 133-145 [facility] Comment on above: Performed By: #### L 500.2500, L100.0100 #### [facility] [address] [place], [address] Urea nitrogen [Mass/Vol] 13 mg/dL Normal 4-19 [facility] Comment on above: Performed By: #### L 500.2500, L100.0100 #### [facility] [address] [place], [address] Basophil percentageOrdered B y: Godwin Lynch on 05-29-2025 Basophils/100 WBC (Bld) 0.1 % 0-1 [facility] CBC W/Diff, Automatedon 05-2 -2024 Absolute Lymph 0.96 X10 3/uL Normal 0.83-4.51 [facility] Comment on above: Performed By: #### L 500.2500, L100.0100 #### [facility] [address] [place], [address] Absolute Neut 10.5 X10 3/uL High 2.0-7.7 [facility] Comment on above: Performed By: #### L 500.2500, L100.0100 #### [facility] [address] [place], [address] Basophils/100 WBC (Bld) 0.1 % Normal 0-1 [facility] Comment on above: Performed By: #### L 500.2500, L100.0100 #### [facility] [address] [place], [address] Eosinophils/100 WBC (Bld) 0.0 % Normal 0-5 [facility] Comment on above: Performed By: #### L 500.2500, L100.0100 #### [facility] [address] [place], [address] Erythrocyte distribution width (RBC) [Ratio] 14.5 % Normal 11.6-14.6 [facility] Comment on above: Performed By: #### L 500.2500, L100.0100 #### [facility] [address] [place], [address] Hematocrit (Bld) [Volume fraction] 32.1 % Low 37-47 [facility] Comment on above: Performed By: #### L 500.2500, L100.0100 #### [facility] [address] [place], [address] Hemoglobin (Bld) [Mass/Vol] 10.9 g/dL Low 12.0-15.0 [facility] Comment on above: Performed By: #### L 500.2500, L100.0100 #### [facility] [address] [place], [address] IG% 1.300 High 0.0-0.9 [facility] Comment on above: Result Comment: IG% - Immature Granulocytes (promyelocytes, myelocytes and metamyelocytes) > 1% indicates that a LEFT SHIFT is Present. Performed By: #### L 500.2500, L100.0100 #### [facility] [address] [place], [address] Lymphocytes/100 WBC (Bld) 8.1 % Low 19-41 [facility] Comment on above: Performed By: #### L 500.2500, L100.0100 #### [facility] [address] [place], [address] MCH (RBC) [Entitic mass] 28.6 pg Normal 27.0-32.0 [facility] Comment on above: Performed By: #### L 500.2500, L100.0100 #### [facility] [address] [place], [address] MCHC (RBC) [Mass/Vol] 34.0 g/dL Normal 32-36 [facility] Comment on above: Performed By: #### L 500.2500, L100.0100 #### [facility] [address] [place], [address] MCV (RBC) [Entitic vol] 84.3 fL Normal 81-99 [facility] Comment on above: Performed By: #### L 500.2500, L100.0100 #### [facility] [address] [place], [address] Monocytes/100 WBC (Bld) 1.8 % Normal 0-10 [facility] Comment on above: Performed By: #### L 500.2500, L100.0100 #### [facility] [address] [place], [address] Neutrophils/100 WBC (Bld) 88.7 % High 47-70 [facility] Comment on above: Performed By: #### L 500.2500, L100.0100 #### [facility] [address] [place], [address] Nucleated RBC (Bld) [#/Vol] 0 10*3/uL Normal 0-5 [facility] Comment on above: Performed By: #### L 500.2500, L100.0100 #### [facility] [address] [place], [address] Platelet mean volume (Bld) [Entitic vol] 9.4 fL Normal 6.2-12.0 [facility] Comment on above: Performed By: #### L 500.2500, L100.0100 #### [facility] [address] [place], [address] Platelets (Bld) [#/Vol] 341 10*3/uL Normal 150-450 [facility] Comment on above: Performed By: #### L 500.2500, L100.0100 #### [facility] [address] [place], [address] RBC (Bld) [#/Vol] 3.81 10*6/uL Low 4.2-5.4 [facility] Comment on above: Performed By: #### L 500.2500, L100.0100 #### [facility] [address] [place], [address] RDW SD 43.8 fl Normal 35.1-43.9 [facility] Comment on above: Performed By: #### L 500.2500, L100.0100 #### [facility] [address] [place], [address] WBC (Bld) [#/Vol] 11.8 10*3/uL High 4.4-11.0 [facility] Comment on above: Performed By: #### L 500.2500, L100.0100 #### [facility] [address] [place], [address] Carbon dioxide, total [Moles /volume] in Central venous bloodOrdered By: Godwin Lynch on 02-28-2025 CO2 [Moles/Vol] 23.8 mmol/L 21.0-32.0 [facility] Chloride assayOrdered By: Vishnu Lynch on 02-28-2025 Chloride [Moles/Vol] 105 mmol/L 98-[address] [facility] Eosinophil percentageOrdered By: Godwin Lynch on 02-28-2025 Eosinophils/100 WBC (Bld) 0.0 % 0-5 [facility] Erythrocyte distribution wid th ratioOrdered By: Godwin Lynch on 02-28-2025 Erythrocyte distribution width (RBC) [Ratio] 14.5 % 11.6-14.6 [facility] Erythrocyte distribution wid th standard deviationOrdered By: Godwin Lynch on 02-28-2025 Erythrocyte distribution width (RBC) [Ratio] 43.8 fl 35.1-43.9 [facility] Glomerular filtration rate ( GFR) estimation/1.73 sq m using serum, plasma, or whole bOrdered By: Godwin Lynch on 02-28-2025 GFR/1.73 sq M.predicted among non-blacks MDRD (S/P/Bld) [Vol rate/Area] 82 mL/min/{1.73_m2} >60 [facility] Comment on above: mL/min/1.73m2 CKD-EP I Creatinine Equation (2020) Hematocrit Auto (Bld) [Volum e fraction]Ordered By: Godwin Lynch on 02-28-2025 Hematocrit (Bld) [Volume fraction] 32.1 % Low 37-47 [facility] Hemoglobin measurementOrdere d By: Godwin Lynch on 02-28-2025 Hemoglobin (Bld) [Mass/Vol] 10.9 g/dL Low 12.0-15.0 [facility] Immature granulocytes/100 WB C Auto (Bld)Ordered By: Godwin Lynch on 02-28-2025 Immature granulocytes/100 WBC (Bld) 1.300 % High 0.0-0.9 [facility] Comment on above: IG% - Immature Granu locytes (promyelocytes, myelocytes and metamyelocytes) > 1% indicates that a LEFT SHIFT is Present. MCV (mean corpuscular volume ) determinationOrdered By: Godwin Lynch on 02-28-2025 MCV (RBC) [Entitic vol] 84.3 fL 81-99 [facility] Mean corpuscular hemoglobin (MCH) determinationOrdered By: Godwin Lynch on 02-28-2025 MCH (RBC) [Entitic mass] 28.6 pg 27.0-32.0 [facility] Mean corpuscular hemoglobin concentration (MCHC) determinationOrdered By: Godwin Lynch on 02-28-2025 MCHC (RBC) [Mass/Vol] 34.0 g/dL 32-36 [facility] Mean platelet volume determi nationOrdered By: Godwin Lynch on 02-28-2025 Platelet mean volume (Bld) [Entitic vol] 9.4 fL 6.2-12.0 [facility] Monocyte percentageOrdered B y: Godwin Lynch on 02-28-2025 Monocytes/100 WBC (Bld) 1.8 % 0-10 [facility] Neutrophil percentageOrdered By: Godwin Lynch on 02-28-2025 Neutrophils/100 WBC (Bld) 88.7 % High 47-70 [facility] Nucleated red blood cell per centageOrdered By: Godwin Lynch on 02-28-2025 Nucleated RBC/100 WBC (Bld) [Ratio] 0 % 0-5 [facility] Platelet countOrdered By: Vishnu Lynch on 02-28-2025 Platelets (Bld) [#/Vol] 341 10*3/uL 150-450 [facility] Potassium measurement (mass/ volume)Ordered By: Godwin Lynch on 02-28-2025 Potassium (Unsp spec) [Mass/Vol] 4.1 mmol/L 3.3-5.1 [facility] RBC Auto (Bld) [#/Vol]Ordere d By: Godwin Lynch on 02-28-2025 RBC (Bld) [#/Vol] 3.81 10*6/uL Low 4.2-5.4 [facility] Serum creatinine measurement (mass/volume)Ordered By: Godwin Lynch on 02-28-2025 Creatinine [Mass/Vol] 0.85 mg/dL 0.70-1.20 [facility] Serum glucose measurement (m ass/volume)Ordered By: Godwin Lynch on 02-28-2025 Glucose [Mass/Vol] 158 mg/dL High 70-99 [facility] Serum or plasma calcium susanna urement (mass/volume)Ordered By: Godwin Lynch on 02-28-2025 Calcium [Mass/Vol] 9.8 mg/dL 7.6-11.0 [facility] Serum or plasma urea nitroge n measurement (mass/volume)Ordered By: Godwin Lynch on 02-28-2025 Urea nitrogen [Mass/Vol] 13 mg/dL 4-19 [facility] Sodium levelOrdered By: Godwin Lynch on 02-28-2025 Sodium [Moles/Vol] 142 mmol/L 133-145 [facility] White blood cell (WBC) count Ordered By: Godwin Lynch on 02-28-2025 WBC (Bld) [#/Vol] 11.8 10*3/uL High 4.4-11.0 [facility] Absolute lymphocyte countOrd ered By: Olive Yang on 02-27-2025 Lymphocytes Auto (Unsp spec) [#/Vol] 1.32 10*3/uL 0.83-4.51 [facility] Absolute neutrophil countOrd ered By: Olive Yang on 02-27-2025 Neutrophils (Bld) [#/Vol] 4.5 10*3/uL 2.0-7.7 [facility] Anion gap in Serum or Plasma Ordered By: Olive Yang on 02-27-2025 Anion gap [Moles/Vol] 11 mmol/L 5-15 [facility] Automated lymphocyte count a s percentage of total leukocytesOrdered By: Olive Yang on 02-27-2025 Lymphocytes/100 WBC Auto (Unsp spec) 20.4 % 19-41 [facility] BUN/creatinine ratioOrdered By: Olive Marielenalilian on 02-27-2025 Urea nitrogen/Creatinine [Mass ratio] 11.9 mg/mg 10- [facility] Basic Metabolic Profile (BMP )on 02-27-2025 BUN/CRE 11.9 RATIO Normal - [facility] Comment on above: Performed By: #### L 500.2500, L100.0100 #### [facility] Laboratory [address] [place], [address] Calcium [Mass/Vol] 9.6 mg/dL Normal 7.6-11.0 [facility] Comment on above: Performed By: #### L 500.2500, L100.0100 #### [facility] [address] [place], [address] Chloride [Moles/Vol] 106 mmol/L Normal 98-[address] [facility] Comment on above: Performed By: #### L 500.2500, L100.0100 #### [facility] [address] [place], [address] CO2 [Moles/Vol] 26.2 mmol/L Normal 21.0-32.0 [facility] Comment on above: Performed By: #### L 500.2500, L100.0100 #### [facility] [address] [place], [address] Creatinine [Mass/Vol] 1.16 mg/dL Normal 0.70-1.20 [facility] Comment on above: Performed By: #### L 500.2500, L100.0100 #### [facility] [address] [place], [address] ECRCL 58.17 ml/min Normal 50-250 [facility] Comment on above: Performed By: #### L 500.2500, L100.0100 #### [facility] [address] [place], [address] GAP 11 Normal 5-15 [facility] Comment on above: Performed By: #### L 500.2500, L100.0100 #### [facility] [address] [place], [address] GFR/1.73 sq M.predicted among non-blacks MDRD (S/P/Bld) [Vol rate/Area] 56 mL/min/{1.73_m2} Low >60 [facility] Comment on above: Result Comment: mL/m in/1.73m2 CKD-EPI Creatinine Equation (2020) Performed By: #### L 500.2500, L100.0100 #### [facility] [address] [place], [address] Glucose [Mass/Vol] 108 mg/dL High 70-99 [facility] Comment on above: Performed By: #### L 500.2500, L100.0100 #### [facility] [address] [place], [address] Potassium [Moles/Vol] 4.2 mmol/L Normal 3.3-5.1 [facility] Comment on above: Performed By: #### L 500.2500, L100.0100 #### [facility] [address] [place], [address] Sodium [Moles/Vol] 143 mmol/L Normal 133-145 [facility] Comment on above: Performed By: #### L 500.2500, L100.0100 #### [facility] [address] [place], [address] Urea nitrogen [Mass/Vol] 14 mg/dL Normal 4-19 [facility] Comment on above: Performed By: #### L 500.2500, L100.0100 #### [facility] [address] [place], [address] Basophil percentageOrdered B y: Olive Yang on 02-27-2025 Basophils/100 WBC (Bld) 0.6 % 0-1 [facility] Bedside Glucoseon 02-27-2025 FINGERSTICK GLU 146 mg/dL High 74-106 [facility] Comment on above: Result Comment: ELIER MENDEZ OF PATIENT CARE PER NURSING PROTOCOL Performed By: #### L 500.2500, L100.0100 #### [facility] Laboratory [address] [place], [address] Brain/Head W/WO Contraston 0 02-27-2025 Brain/Head W/WO Contrast [facility] Imaging Services [address] [place] [address] Brain/Head W/WO Contrast MR#: [id number] Acct: [id number] Name: SIERRA PATTON Rep #: [id number] : 1970 F 54 From: Rodo seals MD PCP: Dr. Mati Augustine, DO Status: REG ER Study: Brain/Head W/WO Contrast Date of Exam: 5 Exam# [id number] Ordering Dr: Olive Yang MD PROCEDURE: BRAIN/HEAD [...] out. No evidence of hydrocephalus. Reading Location: [place] [address] CC: Dr. Olive Yang MD; Dr. Mati Augustine DO [employer] Underwriter: Signed Normal [facility] CBC W/Diff, Automatedon 05-2 Absolute Lymph 1.32 X10 3/uL Normal 0.83-4.51 [facility] Comment on above: Performed By: #### L 500.2500, L100.0100 #### [facility] [address] [place], [address] Absolute Neut 4.5 X10 3/uL Normal 2.0-7.7 [facility] Comment on above: Performed By: #### L 500.2500, L100.0100 #### [facility] [address] [place], [address] Basophils/100 WBC (Bld) 0.6 % Normal 0-1 [facility] Comment on above: Performed By: #### L 500.2500, L100.0100 #### [facility] [address] [place], [address] Eosinophils/100 WBC (Bld) 3.4 % Normal 0-5 [facility] Comment on above: Performed By: #### L 500.2500, L100.0100 #### [facility] [address] [place], [address] Erythrocyte distribution width (RBC) [Ratio] 14.5 % Normal 11.6-14.6 [facility] Comment on above: Performed By: #### L 500.2500, L100.0100 #### [facility] [address] [place], [address] Hematocrit (Bld) [Volume fraction] 30.3 % Low 37-47 [facility] Comment on above: Performed By: #### L 500.2500, L100.0100 #### [facility] [address] [place], [address] Hemoglobin (Bld) [Mass/Vol] 10.4 g/dL Low 12.0-15.0 [facility] Comment on above: Performed By: #### L 500.2500, L100.0100 #### [facility] [address] [place], [address] IG% 0.600 Normal 0.0-0.9 [facility] Comment on above: Result Comment: IG% - Immature Granulocytes (promyelocytes, myelocytes and metamyelocytes) > 1% indicates that a LEFT SHIFT is Present. Performed By: #### L 500.2500, L100.0100 #### [facility] [address] [place], [address] Lymphocytes/100 WBC (Bld) 20.4 % Normal 19-41 [facility] Comment on above: Performed By: #### L 500.2500, L100.0100 #### [facility] [address] [place], [address] MCH (RBC) [Entitic mass] 29.0 pg Normal 27.0-32.0 [facility] Comment on above: Performed By: #### L 500.2500, L100.0100 #### [facility] [address] [place], [address] MCHC (RBC) [Mass/Vol] 34.3 g/dL Normal 32-36 [facility] Comment on above: Performed By: #### L 500.2500, L100.0100 #### [facility] [address] [place], [address] MCV (RBC) [Entitic vol] 84.4 fL Normal 81-99 [facility] Comment on above: Performed By: #### L 500.2500, L100.0100 #### [facility] [address] [place], [address] Monocytes/100 WBC (Bld) 5.9 % Normal 0-10 [facility] Comment on above: Performed By: #### L 500.2500, L100.0100 #### [facility] [address] [place], [address] Neutrophils/100 WBC (Bld) 69.1 % Normal 47-70 [facility] Comment on above: Performed By: #### L 500.2500, L100.0100 #### [facility] [address] [place], [address] Nucleated RBC (Bld) [#/Vol] 0 10*3/uL Normal 0-5 [facility] Comment on above: Performed By: #### L 500.2500, L100.0100 #### [facility] [address] [place], [address] Platelet mean volume (Bld) [Entitic vol] 9.1 fL Normal 6.2-12.0 [facility] Comment on above: Performed By: #### L 500.2500, L100.0100 #### [facility] [address] [place], [address] Platelets (Bld) [#/Vol] 260 10*3/uL Normal 150-450 [facility] Comment on above: Performed By: #### L 500.2500, L100.0100 #### [facility] [address] [place], [address] RBC (Bld) [#/Vol] 3.59 10*6/uL Low 4.2-5.4 [facility] Comment on above: Performed By: #### L 500.2500, L100.0100 #### [facility] [address] [place], [address] RDW SD 44.0 fl High 35.1-43.9 [facility] Comment on above: Performed By: #### L 500.2500, L100.0100 #### [facility] [address] [place], [address] WBC (Bld) [#/Vol] 6.5 10*3/uL Normal 4.4-11.0 [facility] Comment on above: Performed By: #### L 500.2500, L100.0100 #### [facility] [address] [place], [address] CTA Chest W/WO Contraston CTA Chest W/WO Contrast [facility] Imaging Services [address] [place] [address] CTA Chest W/WO Contrast MR#: [id number] Acct: [id number] Name: SIERRA PATTON Rep #: [id number] : 1970 F 54 From: Rodo seals MD PCP: Dr. Mati Augustine, DO Status: REG ER Study: CTA Chest W/WO Contrast Date of Exam: 02/27/25 Exam# [id number] Ordering Dr: Olive Yang MD PROCEDURE: CTA [...] of multiple small hepatic cysts. Reading Location: [place] [address] CC: Dr. Olive Yang MD; Dr. Mati Augustine DO [employer] Underwriter: Signed Normal [facility] Carbon dioxide, total [Moles /volume] in Central venous bloodOrdered By: Olive Yang on 02-27-2025 CO2 [Moles/Vol] 26.2 mmol/L 21.0-32.0 [facility] Chloride assayOrdered By: Jose Yang on 02-27-2025 Chloride [Moles/Vol] 106 mmol/L 98-[address] [facility] Emergency Department Summary on 02-27-2025 Emergency Department Summary [facility] Medical Records Department [address] [place] [address] Emergency Department Summary 02/27/25 MR#: [id number] Acct: [id number] Name: SIERRA PATTON Rep #: [id number] : 1970 54 From: Olive Yang MD PCP: Dr. Mati Augustine DO Status:REG ER Location: ED ADDENDUM by Dr. Ron Hurley DO on 02/27/25 at 1832 Update: 1830 hrs. 27 Feb 2025 No wheezing at this time I reviewed the patient's ED course and the plan to transfer to [facility]. Unfortunately I am told by their [...] she did not remember going to the [employer] or driving there the other day. She denies any headaches or nausea and vomiting. No exacerbating or alleviating factors. [facility] Medical History Chronic renal failure Trigger thumb [...] History current occupational status: employed current occupation: [employer] Smoking Status: Unknown if ever smoked alcohol intake: current alcohol intake frequency: a few times a month Alcohol type: wine rosenbaum (more content not included)... Normal [facility] Eosinophil percentageOrdered By: Olive Yang on 02-27-2025 Eosinophils/100 WBC (Bld) 3.4 % 0-5 [facility] Erythrocyte distribution wid th ratioOrdered By: Olive Yang on 02-27-2025 Erythrocyte distribution width (RBC) [Ratio] 14.5 % 11.6-14.6 [facility] Erythrocyte distribution wid th standard deviationOrdered By: Olive Yang on 05-28-2025 Erythrocyte distribution width (RBC) [Ratio] 44.0 fl High 35.1-43.9 [facility] Glomerular filtration rate ( GFR) estimation/1.73 sq m using serum, plasma, or whole bOrdered By: Olive Yang on 02-27-2025 GFR/1.73 sq M.predicted among non-blacks MDRD (S/P/Bld) [Vol rate/Area] 56 mL/min/{1.73_m2} Low >60 [facility] Comment on above: mL/min/1.73m2 CKD-EP I Creatinine Equation (2020) [facility] deOrdered By: Olive Yang on 02-27-2025 Glucose [Mass/Vol] 146 mg/dL High 74-106 [facility] Comment on above: MANAGEMENT OF PATIEN T CARE PER NURSING PROTOCOL H AND P Exam - [place] 02-27-2025 H&P Exam - Hospitalist [facility] Medical Records Department [address] [place] [address] H P Exam - Hospitalist 02/27/25 1847 MR#: [id number] Acct: [id number] Name: SIERRA PATTON Rep #: [id number] : 1970 54 From: Godwin Lynch DO PCP: Dr. Mati Augustine, DO Status:REG ER Location: ED [facility] Date of Service: 02/27/25 Chief Complaint: [...] of dexamethasone. And they reached out to [facility] with neurosurgery and the patient was excepted. However they do not have any readily available beds of the hospital service at [facility] was contacted for admission until a bed becomes available at [facility]. Patient states that she has had some mild difficulties that she did not really attribute to anything particular other than just getting older including occasional difficulty learning to spell common words but these would be transient and being forgetful at times but once again transient. Denied any weakness or any kind of visual changes. [facility] Medical History Chronic renal failure Trigger [...] History current occupational status: employed current occupation: [employer] Smoking Status: Unknown if ever smoked alcohol intake: current alcohol intake frequency: a few times a month Alcohol type: wine substance use type: does not use caffeine: Yes what type of physical activity do you participate in: walking and other details: rowing frequency: 1-2 times per week ROS (more content not included)... Normal [facility] Hematocrit Auto (Bld) [Volum e fraction]Ordered By: Olive Yang on 02-27-2025 Hematocrit (Bld) [Volume fraction] 30.3 % Low 37-47 [facility] Hemoglobin measurementOrdere d By: Olive Yang on 02-27-2025 Hemoglobin (Bld) [Mass/Vol] 10.4 g/dL Low 12.0-15.0 [facility] Immature granulocytes/100 WB C Auto (Bld)Ordered By: Olive Yang on 02-27-2025 Immature granulocytes/100 WBC (Bld) 0.600 % 0.0-0.9 [facility] Comment on above: IG% - Immature Granu locytes (promyelocytes, myelocytes and metamyelocytes) > 1% indicates that a LEFT SHIFT is Present. MCV (mean corpuscular volume ) determinationOrdered By: Olive Yang on 02-27-2025 MCV (RBC) [Entitic vol] 84.4 fL 81-99 [facility] Mean corpuscular hemoglobin (MCH) determinationOrdered By: Olive Yang on 02-27-2025 MCH (RBC) [Entitic mass] 29.0 pg 27.0-32.0 [facility] Mean corpuscular hemoglobin concentration (MCHC) determinationOrdered By: Olive Yang on 02-27-2025 MCHC (RBC) [Mass/Vol] 34.3 g/dL 32-36 [facility] Mean platelet volume determi nationOrdered By: Olive Yang on 02-27-2025 Platelet mean volume (Bld) [Entitic vol] 9.1 fL 6.2-12.0 [facility] Monocyte percentageOrdered B y: Olive Yang on 02-27-2025 Monocytes/100 WBC (Bld) 5.9 % 0-10 [facility] Neutrophil percentageOrdered By: Olive Yang on 02-27-2025 Neutrophils/100 WBC (Bld) 69.1 % 47-70 [facility] Nucleated red blood cell per centageOrdered By: Olive Yang on 02-27-2025 Nucleated RBC/100 WBC (Bld) [Ratio] 0 % 0-5 [facility] Platelet countOrdered By: Jose Yang on 02-27-2025 Platelets (Bld) [#/Vol] 260 10*3/uL 150-450 [facility] Potassium measurement (mass/ volume)Ordered By: Olive Yang on 02-27-2025 Potassium (Unsp spec) [Mass/Vol] 4.2 mmol/L 3.3-5.1 [facility] RBC Auto (Bld) [#/Vol]Ordere d By: Olive Yang on 02-27-2025 RBC (Bld) [#/Vol] 3.59 10*6/uL Low 4.2-5.4 [facility] Serum creatinine measurement (mass/volume)Ordered By: Olive Yang on 02-27-2025 Creatinine [Mass/Vol] 1.16 mg/dL 0.70-1.20 [facility] Serum glucose measurement (m ass/volume)Ordered By: Olive Yang on 02-27-2025 Glucose [Mass/Vol] 108 mg/dL High 70-99 [facility] Serum or plasma calcium susanna urement (mass/volume)Ordered By: Olive Yang on 02-27-2025 Calcium [Mass/Vol] 9.6 mg/dL 7.6-11.0 [facility] Serum or plasma urea nitroge n measurement (mass/volume)Ordered By: Olive Yang on 02-27-2025 Urea nitrogen [Mass/Vol] 14 mg/dL 4-19 [facility] Sodium levelOrdered By: Olive Yang on 02-27-2025 Sodium [Moles/Vol] 143 mmol/L 133-145 [facility] Soft Tissue Neck WITH Contra ston 02-27-2025 Soft Tissue Neck WITH Contrast [facility] Imaging Services [address] [place] [address] Soft Tissue Neck WITH Contrast MR#: [id number] Acct: [id number] Name: SIERRA PATTON Rep #: [id number] : 1970 F 54 From: Ted Duffy MD PCP: Dr. Mati Augustine, DO Status: REG CLI Study: Soft Tissue Neck WITH Contrast Date of Exam: 0 02/27/25 Exam# [id number] Ordering Dr: Trevor Lanier MD PROCEDURE: SOFT [...] Mati Augustine, DO; Dr. Trevor Lanier MD [employer] Underwriter: Signed [facility] White blood cell (WBC) count Ordered By: Olive Yang on 02-27-2025 WBC (Bld) [#/Vol] 6.5 10*3/uL 4.4-11.0 [facility] [id number] 02-26-2025 [id number] Admission Certificat ion I certify that this patient would require a higher level of care if intensive outpatient program (IOP) services were not provided, that the patient needs a minimum of 9 hours of IOP services per week, that the services will be furnished under the care of a physician, and under a written plan of treatment authorized and approved by the physician. [facility] [id number] 02-26-2025 [id number] OUTPATIENT [facility] PHYSICIAN ORDERS Admit to: [] Partial Hospitalization [...] DATE [] Depakote Level on NA [] Dowling Level on DATE [] Other: NA 8. [...] (identify): 9. Additional: 10. Physician: Dr. Frankel [facility] [id number] Admission Note Psychiatric IOP Date: 02/26/2025 Start [...] Goal-directed Thought Content: No evidence of psychosis/delusions [facility] 94 02-26-[address] [place] [address] Group Therapy Documentation Program: Psychiatric Intensive Outpatient Program Group Type: Psychiatric IOP Group Date: 02/26/2025 Facilitators: CAROLINE Torres-S Department: [facility] Psych IOP Group No: 1 Start Time: [...] Continue with current services Additional Comments (optional): [facility] Progress Noteon 02-19-2025 Progress Note Outpatient [facility] Initial Assessment Start Time: 913, End Time: 1140 [address] patient have a Court Appointed Guardian? None Does patient have a Durable Power of Tip Finisher? Yes (Name) (Pt reported her significant other [...] for PTSD diagnostic Criteria Language Preferred Language: Guyanese Languages Spoken: Guyanese Presenting Problem(s) Reason for visit as reported [...] further reported Brie was once employed for [employer]. Pt described a lifetime history of anxiety, [...] were you homeless or living in a halfway (including now)?: No Patient feels safe at [...] reported she was born and raised in [place]. Pt reported she was raised predominantly by [...] with paren (more content not included)... Normal [facility] Internal Medicine Office Vis iton 02-06-2025 Internal Medicine Office Visit [facility] [address] [place] [address] [place] [address] OFFICE VISIT Date of Service: 02/06/25 MR#: [id number] Acct: [id number] Name: SIERRA PATTON Rep #: [id number] : 1970 Provider: Dr. Mati aj, DO Age/Sex: 54/F Location: [facility] Status: Signed Intake Vital Signs 12/25/24 08:35 [...] WK FU Chief Complaint: I feel depressed. Property Adjuster Required: No Is patient in pain?: No [...] sometimes she would be better off . [facility] Medical History Chronic renal failure Trigger [...] History current occupational status: employed current occupation: [employer] Smoking Status: Former smoker alcohol intake: current alcohol intake frequency: a few times a month Alcohol type: wine substance use type: does not use caffeine: Yes what type of physical activity do you participate in: walking and other details: rowing frequency: 1-2 times per week Questionnaire [facility]-9 BMS Over the last 2 weeks, how often have you been bothered by any of the following (more content not included)... Normal [facility] Anion gap in Serum or Plasma Ordered By: Briseida Starks on 01-26-2025 Anion gap [Moles/Vol] 12 mmol/L 5-15 [facility] BUN/creatinine ratioOrdered By: Briseida Starks on 01-26-2025 Urea nitrogen/Creatinine [Mass ratio] 16.0 mg/mg 10-20 [facility] Carbon dioxide, total [Moles /volume] in Central venous bloodOrdered By: Briseida Starks on 01-26-2025 CO2 [Moles/Vol] 25.9 mmol/L 21.0-32.0 [facility] Chloride assayOrdered By: Katarina Starks on 01-26-2025 Chloride [Moles/Vol] 104 mmol/L 98-[address] [facility] Glomerular filtration rate ( GFR) estimation/1.73 sq m using serum, plasma, or whole bOrdered By: Briseida Starks on 01-26-2025 GFR/1.73 sq M.predicted among non-blacks MDRD (S/P/Bld) [Vol rate/Area] 56 mL/min/{1.73_m2} Low >60 [facility] Comment on above: mL/min/1.73m2 CKD-EP I Creatinine Equation (2020) Potassium measurement (mass/ volume)Ordered By: Briseida Starks on 01-26-2025 Potassium (Unsp spec) [Mass/Vol] 3.7 mmol/L 3.3-5.1 [facility] Renal Profileon 01-26-2025 Albumin [Mass/Vol] 4.6 g/dL Normal 3.5-5.0 [facility] Comment on above: Performed By: #### L 500.2500, L100.0100 #### [facility] Laboratory [address] [place], [address] BUN/CRE 16.0 RATIO Normal 10-20 [facility] Comment on above: Performed By: #### L 500.2500, L100.0100 #### [facility] Laboratory [address] [place], [address] Calcium [Mass/Vol] 9.6 mg/dL Normal 7.6-11.0 [facility] Comment on above: Performed By: #### L 500.2500, L100.0100 #### [facility] [address] [place], [address] Chloride [Moles/Vol] 104 mmol/L Normal 98-[address] [facility] Comment on above: Performed By: #### L 500.2500, L100.0100 #### [facility] [address] [place], [address] CO2 [Moles/Vol] 25.9 mmol/L Normal 21.0-32.0 [facility] Comment on above: Performed By: #### L 500.2500, L100.0100 #### [facility] [address] [place], [address] Creatinine [Mass/Vol] 1.17 mg/dL Normal 0.70-1.20 [facility] Comment on above: Performed By: #### L 500.2500, L100.0100 #### [facility] [address] [place], [address] GAP 12 Normal 5-15 [facility] Comment on above: Performed By: #### L 500.2500, L100.0100 #### [facility] [address] [place], [address] GFR/1.73 sq M.predicted among non-blacks MDRD (S/P/Bld) [Vol rate/Area] 56 mL/min/{1.73_m2} Low >60 [facility] Comment on above: Result Comment: mL/m in/1.73m2 CKD-EPI Creatinine Equation (2020) Performed By: #### L 500.2500, L100.0100 #### [facility] [address] [place], [address] Glucose [Mass/Vol] 100 mg/dL High 70-99 [facility] Comment on above: Performed By: #### L 500.2500, L100.0100 #### [facility] [address] [place], [address] Phosphate [Mass/Vol] 3.6 mg/dL Normal 2.7-4.[address] [facility] Comment on above: Performed By: #### L 500.2500, L100.0100 #### [facility] [address] [place], [address] Potassium [Moles/Vol] 3.7 mmol/L Normal 3.3-5.1 [facility] Comment on above: Performed By: #### L 500.2500, L100.0100 #### [facility] [address] [place], [address] Sodium [Moles/Vol] 142 mmol/L Normal 133-145 [facility] Comment on above: Performed By: #### L 500.2500, L100.0100 #### [facility] [address] [place], [address] Urea nitrogen [Mass/Vol] 19 mg/dL Normal 4-19 [facility] Comment on above: Performed By: #### L 500.2500, L100.0100 #### [facility] [address] [place], [address] Serum creatinine measurement (mass/volume)Ordered By: Briseida Starks on 01-26-2025 Creatinine [Mass/Vol] 1.17 mg/dL 0.70-1.20 [facility] Serum glucose measurement (m ass/volume)Ordered By: Briseida Starks on 01-26-2025 Glucose [Mass/Vol] 100 mg/dL High 70-99 [facility] Serum or plasma albumin susanna urement (mass/volume)Ordered By: Briseida Starks on 01-26-2025 Albumin [Mass/Vol] 4.6 g/dL 3.5-5.0 [facility] Serum or plasma calcium susanna urement (mass/volume)Ordered By: Briseida Starks on 01-26-2025 Calcium [Mass/Vol] 9.6 mg/dL 7.6-11.0 [facility] Serum or plasma urea nitroge n measurement (mass/volume)Ordered By: Briseida Straks on 01-26-2025 Urea nitrogen [Mass/Vol] 19 mg/dL 4-19 [facility] Sodium levelOrdered By: Pooja Starks on 01-26-2025 Sodium [Moles/Vol] 142 mmol/L 133-145 [facility] Free T3on 01-15-2025 Free T3 [Mass/Vol] 3.3 pg/mL Normal 2.18-3.98 [facility] Comment on above: Performed By: #### L 501.70958, L506.0400, L501.9520 #### [facility] [address] [place], [place], [id number] Free L7Xcgtkgs By: Trevor armenta on 01-15-2025 Free T3 [Mass/Vol] 3.3 pg/mL 2.18-3.98 [facility] Free Triiodothyronine (T3) pg/dL 3.3 pg/mL 2.18-3.98 [facility] T4 Free Directon 01-15-2025 T4 FREE DIRECT 0.90 ng/dL Normal 0.76-1.46 [facility] Comment on above: Performed By: #### L 501.42792, L506.0400, L501.9520 #### [facility] [address] [place], [address] T4 freeOrdered By: Trevor armenta on 01-15-2025 Free T4 [Mass/Vol] 0.90 ng/dL 0.76-1.46 [facility] TSH DL <= 0.005 mIU/L QnOrde red By: Trevor Lanier on 01-15-2025 Thyroid Stimulating Hormone (TSH) 2.010 uIU/mL 0.300-4.200 [facility] TSH Qn 2.010 uIU/mL 0.300-4.200 [facility] Thyroid Stim Hormone (TSH)on 01-15-2025 TSH 2.010 uIU/mL Normal 0.300-4.200 [facility] Comment on above: Performed By: #### L 501.01216, L506.0400, L501.9520 #### [facility] [address] [place], [address] Surgery Visit Reporton 01-11 Surgery Visit Report [facility] [address] [place] [address] OFFICE VISIT Date of Service: 01/11/25 MR#: [id number] Acct: [id number] Name: SIERRA PATTON Rep #: [id number] : 1970 Provider: Dr. Trevor joiner MD Age/Sex: 54/F Location: [facility] Status: Signed Intake Vital Signs 07/27/24 09:32 [...] History current occupational status: employed current occupation: [employer] Smoking Status: Former smoker alcohol intake: current [...] any ho (more content not included)... Normal [facility] Thyroidon 01-05-2025 Thyroid [facility] [address] [place], [place] [id number] Thyroid MR#: [id number] Acct: [id number] Name: SIERRA PATTON Rep #: [id number] : 1970 F 54 From: Cheikh Tenorio DO PCP: Dr. Mati Augustine, DO Status: REG CLI Study: Thyroid Date of Exam: 01/05/25 Exam# [id number] Ordering Dr: Trevor Lanier MD PROCEDURE: THYROID [...] follow-up per ACR TI-RADS guidelines Reading Location: [facility] CC: Dr. Mati Augustine DO; Dr. Trevor Lanier MD Commercial Lines Underwriter: Signed Normal [facility] Internal Medicine Office Vis iton 12-25-2024 Internal Medicine Office Visit [facility] [address] [place] [address] [place] [address] OFFICE VISIT Date of Service: 12/25/24 MR#: [id number] Acct: [id number] Name: SIERRA PATTON Rep #: [id number] : 1970 Provider: Dr. Mati aj DO Age/Sex: 54/F Location: [facility] Status: Signed Intake Vital Signs 06/26/24 08:24 [...] Reasons: 6 m fu Chief Complaint: fu Property Adjuster Required: No Accompanied by: Self Is patient [...] No Nurse's Note: discuss anxiety and depression [facility] Medical History Chronic renal failure Trigger [...] far t (more content not included)... Normal [facility] Oncology Visit Reporton 12-01 Oncology Visit Report [facility] [place] [facility] [address] [place] [address] OFFICE VISIT Date of Service: 12/11/24 1146 MR#: [id number] Acct: [id number] Name: SIERRA PATTON Rep #: [id number] : 1970 From: Yaniv Crawford MD Age/Sex: 54/F Location: [facility] Status: Signed HPI Subjective [...] evidence of lymphoproliferative disorder CYTOGENETICS REPORT FROM [employer] INTERPRETATION: A normal female karyotype was observed in twenty metaphases analyzed. Karyotype: 46,XX FLUORESCENCE IN-SITU HYBRIDIZATION (FISH) FROM [employer] INTERPRETATION: 1. No evidence of trisomy 12 (+12). 2. No evidence of [id number] (13q14.3). 3. No evidence of p53 (17p13) [...] in the inferior aspect of the spleen. [facility] Medical History Chronic renal failure Trigger [...] (cerebral va (more content not included)... Normal [facility] Abdomen WITH IV Contraston 0 12-05-2024 Abdomen WITH IV Contrast [facility] Imaging Services [address] [place], [place] [id number] Abdomen WITH IV Contrast MR#: [id number] Acct: [id number] Name: SIERRA PATTON Rep #: [id number] : 1970 F 54 From: Rodo seals MD PCP: Dr. Mati Augustine, DO Status: REG CLI Study: Abdomen WITH IV Contrast Date of Exam: 5 Exam# [id number] Ordering Dr: Yaniv Crawford MD PROCEDURE: ABDOMEN [...] use of iterative reconstruction technique). Reading Location: [facility] CC: Dr. Mati Augustine DO; Dr. Yaniv Crawford MD [employer] Underwriter: Signed Normal [facility] CREATININE FINGERSTICKon CREATININE WB < 1.0 Normal 0.55-1.02 [facility] Comment on above: Performed By: #### L 500.2500, L100.0100 #### [facility] [address] [place], [place], [id number] EGFR WB > 60.0000 Normal >60 [facility] Comment on above: Performed By: #### L 500.2500, L100.0100 #### [facility] [address] [place], [place], [id number] Creatinine measurement at dsideOrdered By: Yaniv Crawford on 12-05-2024 Bedside Creatinine < 1.0 mg/dL 0.55-1.02 [facility] EGFROrdered By: Yaniv joseph on 12-05-2024 Bedside Estimated GFR (eGFR) > 60.0000 mL/min >60 [facility] GFR/1.73 sq M.predicted among non-blacks MDRD (S/P/Bld) [Vol rate/Area] mL/min/{1.73_m2} >60 [facility] SCRN MAMM (CAD)W/KIARRA BILATo n 10-11-2024 SCRN MAMM (CAD)W/KIARRA BILAT [facility] Imaging Services [address] [place], [place] [id number] SCRN MAMM (CAD)W/KIARRA BILAT MR#: [id number] Acct: [id number] Name: SIERRA PATTON Rep #: [id number] : 1970 F 54 From: Rodo seals MD PCP: Dr. Mati Augustine, DO Status: [facility] Study: SCRN MAMM (CAD)W/KIARRA BILAT Date of Exam: 06/27 Exam# [id number] Ordering Dr: Yaniv Crawford MD [id number] MAMMOGRAPHY - BILATERAL SCREENING REASON FOR EXAM: [...] delay biopsy of a clinically suspicious abnormality. [id number] Electronically Signed: Rodo Sanford MD at 8:56 EST , CC: Dr. Mati Augustine DO; Dr. Yaniv Crawford MD [employer] Underwriter: Signed Normal [facility] Blood urea nitrogen (BUN)/cr eatinine ratioOrdered By: Briseida Starks on 08-24-2024 Urea nitrogen/Creatinine [Mass ratio] 13.0 mg/mg 10-20 [facility] Carbon dioxide measurementOr dered By: Briseida Starks on 08-24-2024 CO2 [Moles/Vol] 28.0 mmol/L 21.0-32.0 [facility] Chloride measurementOrdered By: Briseida Starks on 08-24-2024 Chloride [Moles/Vol] 106 mmol/L 98-[address] [facility] Estimated glomerular filtrat ion rate (GFR) AmericanOrdered By: Briseida Starks on 08-24-2024 Estimated GFR (MDRD) Amer 82 mL/min >60 [facility] Comment on above: GFR Calc Glomerular filtration rate ( GFR) estimationOrdered By: Briseida Starks on 08-24-2024 Estimated GFR (MDRD) Non-Af Amer 67 mL/min >60 [facility] Comment on above: Non- GFR Calc Glucose measurementOrdered B y: Briseida Starks on 08-24-2024 Glucose [Mass/Vol] 96 mg/dL 74-106 [facility] Phosphorus measurementOrdere d By: Briseida Starks on 08-24-2024 Phosphorus Level 3.6 mg/dL 2.5-4.9 [facility] Potassium measurementOrdered By: Briseida Starks on 08-24-2024 Potassium [Moles/Vol] 3.5 mmol/L 3.5-5.1 [facility] Renal Profileon 08-24-2024 Albumin [Mass/Vol] 4.1 g/dL Normal 3.2-5.0 [facility] Comment on above: Performed By: #### L 500.2500, L100.0100 #### [facility] [address] [place], [address] BUN/CRE 13.0 RATIO Normal 10-20 [facility] Comment on above: Performed By: #### L 500.2500, L100.0100 #### [facility] [address] [place], [address] CA,Total 9.5 mg/dL Normal 8.5-10.1 [facility] Comment on above: Performed By: #### L 500.2500, L100.0100 #### [facility] [address] [place], [address] Chloride [Moles/Vol] 106 mmol/L Normal 98-[address] [facility] Comment on above: Performed By: #### L 500.2500, L100.0100 #### [facility] [address] [place], [address] CO2 [Moles/Vol] 28.0 mmol/L Normal 21.0-32.0 [facility] Comment on above: Performed By: #### L 500.2500, L100.0100 #### [facility] [address] [place], [address] Creatinine [Mass/Vol] 0.92 mg/dL Normal 0.55-1.02 [facility] Comment on above: Result Comment: The validity of the calculated GFR GFRAA in patients over 70 years has not been determined. Clinical correlation is essential. Performed By: #### L 500.2500, L100.0100 #### [facility] [address] [place], [address] EST GFR - AA 82 mL/min Normal >60 [facility] Comment on above: Result Comment: Afri can [place] GFR Calc Performed By: #### L 500.2500, L100.0100 #### [facility] [address] [place], [address] GFR/1.73 sq M.predicted among non-blacks MDRD (S/P/Bld) [Vol rate/Area] 67 mL/min/{1.73_m2} Normal >60 [facility] Comment on above: Result Comment: Non- GFR Calc Performed By: #### L 500.2500, L100.0100 #### [facility] [address] [place], [address] Glucose [Mass/Vol] 96 mg/dL Normal 74-106 [facility] Comment on above: Performed By: #### L 500.2500, L100.0100 #### [facility] [address] [place], [address] Phosphate [Mass/Vol] 3.6 mg/dL Normal 2.5-4.[address] [facility] Comment on above: Performed By: #### L 500.2500, L100.0100 #### [facility] [address] [place], [address] Potassium [Moles/Vol] 3.5 mmol/L Normal 3.5-5.1 [facility] Comment on above: Performed By: #### L 500.2500, L100.0100 #### [facility] [address] [place], [address] Sodium [Moles/Vol] 140 mmol/L Normal 136-145 [facility] Comment on above: Performed By: #### L 500.2500, L100.0100 #### [facility] [address] [place], [address] Urea nitrogen [Mass/Vol] 12 mg/dL Normal 7-18 [facility] Comment on above: Performed By: #### L 500.2500, L100.0100 #### [facility] [address] [place], [address] Serum or plasma albumin susanna urement (mass/volume)Ordered By: Briseida Starks on 08-24-2024 Albumin [Mass/Vol] 4.1 g/dL 3.2-5.0 [facility] Serum or plasma calcium susanna urement (mass/volume)Ordered By: Briseida Starks on 08-24-2024 Calcium [Mass/Vol] 9.5 mg/dL 8.5-10.1 [facility] Serum or plasma creatinine m easurement (mass/volume)Ordered By: Briseida Starks on 08-24-2024 Creatinine [Mass/Vol] 0.92 mg/dL 0.55-1.02 [facility] Comment on above: The validity of the calculated GFR & GFRAA in patients over 70 years has not been determined. Clinical correlation is essential. Serum or plasma urea nitroge n measurement (mass/volume)Ordered By: Briseida Starks on 08-24-2024 Urea nitrogen [Mass/Vol] 12 mg/dL 7-18 [facility] Sodium levelOrdered By: Pooja Starks on 08-24-2024 Sodium [Moles/Vol] 140 mmol/L 136-145 [facility] Absolute lymphocyte countOrd ered By: Yaniv Crawford on 06-12-2024 Lymphocytes Auto (Unsp spec) [#/Vol] 1.57 10*3/uL 0.83-4.51 [facility] Absolute neutrophil countOrd ered By: Yaniv Crawford on 06-12-2024 Neutrophils (Bld) [#/Vol] 4.4 10*3/uL 2.0-7.7 [facility] Alanine aminotransferase (AL T) assayOrdered By: Yaniv Crawford on 06-12-2024 ALT [Catalytic activity/Vol] 40 U/L 13-56 [facility] Albumin to globulin ratioOrd ered By: Yaniv Crawford on 06-12-2024 Albumin/Globulin [Mass ratio] 1.1 {ratio} 0.9-2.4 [facility] Alkaline phosphataseOrdered By: Yaniv Crawford on 06-12-2024 ALP [Catalytic activity/Vol] 151 U/L High 45-117 [facility] Automated lymphocyte count a s percentage of total leukocytesOrdered By: Yaniv Crawford on 06-12-2024 Lymphocytes/100 WBC Auto (Unsp spec) 23.2 % 19-41 [facility] Basophil percentageOrdered B y: Yaniv Crawford on 06-12-2024 Basophils/100 WBC (Bld) 0.7 % 0-1 [facility] Bilirubin, totalOrdered By: Yaniv Crawford on 06-12-2024 Bilirubin [Mass/Vol] 0.40 mg/dL 0.20-1.[address] [facility] Comment on above: For patients on eltr ombopag therapy, use of Dimension Muddy TBIL is not recommended. Blood urea nitrogen (BUN)/cr eatinine ratioOrdered By: Yaniv Crawford on 06-12-2024 Urea nitrogen/Creatinine [Mass ratio] 13.6 mg/mg 10-20 [facility] Carbon dioxide measurementOr dered By: Yaniv Crawford on 06-12-2024 CO2 [Moles/Vol] 30.0 mmol/L 21.0-32.0 [facility] Chloride measurementOrdered By: Yaniv Crawford on 06-12-2024 Chloride [Moles/Vol] 102 mmol/L 98-[address] [facility] Eosinophil percentageOrdered By: Yaniv Crawford on 06-12-2024 Eosinophils/100 WBC (Bld) 5.0 % 0-5 [facility] Erythrocyte distribution wid th ratioOrdered By: Yaniv Crawford on 06-12-2024 Erythrocyte distribution width (RBC) [Ratio] 14.3 % 11.6-14.6 [facility] Erythrocyte distribution wid th standard deviationOrdered By: Yaniv Crawford on 06-12-2024 Erythrocyte distribution width (RBC) [Entitic vol] 42.2 fL 35.1-43.9 [facility] Erythrocyte distribution width (RBC) [Ratio] 42.2 fl 35.1-43.9 [facility] Estimated glomerular filtrat ion rate (GFR) AmericanOrdered By: Yaniv Crawford on 06-12-2024 Estimated GFR (MDRD) Amer 67 mL/min >60 [facility] Comment on above: GFR Calc Estimation of creatinine krista aranceOrdered By: Yaniv Crawford on 06-12-2024 Estimated Creatinine Clearance Calc 58.61 ml/min [facility] Ferritin measurementOrdered By: Yaniv Crawford on 06-12-2024 Ferritin [Mass/Vol] 93 ng/mL 8-252 [facility] Glomerular filtration rate ( GFR) estimationOrdered By: Yaniv Crawford on 06-12-2024 Estimated GFR (MDRD) Non-Af Amer 55 mL/min Low >60 [facility] Comment on above: Non- GFR Calc GFR/1.73 sq M.predicted among non-blacks MDRD (S/P/Bld) [Vol rate/Area] 55 mL/min/{1.73_m2} Low >60 [facility] Comment on above: Non- GFR Calc Glucose measurementOrdered B y: Yaniv Crawford on 06-12-2024 Glucose [Mass/Vol] 109 mg/dL High 74-106 [facility] Comment on above: Fasting Glucose resu lt from 100 to 125 mg/dL suggests IMPAIRED HOMEOSTASIS per A.D.A. criteria. Hematocrit Auto (Bld) [Volum e fraction]Ordered By: Yaniv Crawford on 06-12-2024 Hematocrit (Bld) [Volume fraction] 32.0 % Low 37-47 [facility] Hemoglobin (Reticulocytes) [ Entitic mass]Ordered By: [facility] on 06-12-2024 Reticulocyte Hemoglobin Equivalent 31.4 pg 30-35 [facility] Hemoglobin measurementOrdere d By: Yaniv Crawford on 06-12-2024 Hemoglobin (Bld) [Mass/Vol] 10.9 g/dL Low 12.0-15.0 [facility] Immature granulocytes/100 WB C Auto (Bld)Ordered By: Yaniv Crawford on 06-12-2024 Immature granulocytes/100 WBC (Bld) 0.300 % 0.0-0.9 [facility] Comment on above: IG% - Immature Granu locytes (promyelocytes, myelocytes and metamyelocytes) > 1% indicates that a LEFT SHIFT is Present. Immature reticulocyte fracti onOrdered By: Yaniv Crawford on 06-12-2024 Immature Reticulocyte Fraction 8.70 % 3.00-15.90 [facility] Iron (Unsp spec) [Mass/Mass] Ordered By: Yaniv Crawford on 06-12-2024 Iron [Mass/Vol] 64 ug/dL 50-170 [facility] Iron measurement (mass/mass) Ordered By: Yaniv Crawford on 06-12-2024 Iron (Unsp spec) [Mass/Mass] 64 ug/dL 50-170 [facility] Iron saturation [Mass fracti on]Ordered By: Yaniv Crawford on 06-12-2024 Iron Saturation 21.3 % 15.0-55.0 [facility] - Chemistry and C hemistry - challengeOrdered By: Yaniv Crawford on 06-12-2024 AST [Catalytic activity/Vol] 26 U/L 15-37 [facility] Lactate dehydrogenase (LDH) measurementOrdered By: Yaniv Crawford on 06-12-2024 LDH [Catalytic activity/Vol] 212 U/L 84-246 [facility] Lymphocytes Auto (Unsp spec) [#/Vol]Ordered By: Yaniv Crawford on 06-12-2024 Lymphocytes (Bld) [#/Vol] 1.57 10*3/uL 0.83-4.51 [facility] Lymphocytes/100 WBC Auto (Un sp spec)Ordered By: Yaniv Crawford on 06-12-2024 Lymphocytes/100 WBC (Bld) 23.2 % 19-41 [facility] MCV (mean corpuscular volume ) determinationOrdered By: Yaniv Crawford on 06-12-2024 MCV (RBC) [Entitic vol] 82.5 fL 81-99 [facility] Mean corpuscular hemoglobin (MCH) determinationOrdered By: Yaniv Crawford on 06-12-2024 MCH (RBC) [Entitic mass] 28.1 pg 27.0-32.0 [facility] Mean corpuscular hemoglobin concentration (MCHC) determinationOrdered By: Yaniv Crawford on 06-12-2024 MCHC (RBC) [Mass/Vol] 34.1 g/dL 32-36 [facility] Mean platelet volume determi nationOrdered By: Yaniv Crawford on 06-12-2024 Platelet mean volume (Bld) [Entitic vol] 8.8 fL 6.2-12.0 [facility] Monocyte percentageOrdered B y: Yaniv Crawford on 06-12-2024 Monocytes/100 WBC (Bld) 5.3 % 0-10 [facility] Neutrophil percentageOrdered By: Yaniv Crawford on 06-12-2024 Neutrophils/100 WBC (Bld) 65.5 % 47-70 [facility] Nucleated red blood cell per centageOrdered By: Yaniv Crawford on 06-12-2024 Nucleated RBC/100 WBC (Bld) [Ratio] 0 % 0-5 [facility] Platelet countOrdered By: Shey Crawford on 06-12-2024 Platelets (Bld) [#/Vol] 340 10*3/uL 150-450 [facility] Potassium measurementOrdered By: Yaniv Crawford on 06-12-2024 Potassium [Moles/Vol] 3.7 mmol/L 3.5-5.1 [facility] RBC Auto (Bld) [#/Vol]Ordere d By: Yaniv Crawford on 06-12-2024 RBC (Bld) [#/Vol] 3.88 10*6/uL Low 4.2-5.4 [facility] Reticulocyte hemoglobin equi valent (RET-He) measurementOrdered By: Yaniv Crawford on 06-12-2024 Hemoglobin (Reticulocytes) [Entitic mass] 31.4 pg 30-35 [facility] Reticulocytes Auto (Bld) [#/ Vol]Ordered By: Yaniv Crawford on 06-12-2024 Reticulocyte Count 2.06 % High 0.5-1.5 [facility] Reticulocytes/100 RBC (Bld) 2.06 % High 0.5-1.5 [facility] Serum albumin measurementOrd ered By: Yaniv Crawford on 06-12-2024 Albumin [Mass/Vol] 4.1 g/dL 3.2-5.0 [facility] Serum anion gap measurementO rdered By: Yaniv Crafword on 06-12-2024 Anion gap [Moles/Vol] 6 mmol/L 5-15 [facility] Serum globulin measurementOr dered By: Yaniv Crawford on 06-12-2024 Globulin (S) [Mass/Vol] 3.9 g/dL 2.2-4.2 [facility] Serum or plasma calcium susanna urement (mass/volume)Ordered By: Yaniv Crawford on 06-12-2024 Calcium [Mass/Vol] 9.6 mg/dL 8.5-10.1 [facility] Serum or plasma creatinine m easurement (mass/volume)Ordered By: Yaniv Crawford on 06-12-2024 Creatinine [Mass/Vol] 1.10 mg/dL High 0.55-1.02 [facility] Comment on above: The validity of the calculated GFR & GFRAA in patients over 70 years has not been determined. Clinical correlation is essential. Serum or plasma iron saturat ion measurement (mass fraction)Ordered By: Yaniv Crawford on 06-12-2024 Iron saturation [Mass fraction] 21.3 % 15.0-55.0 [facility] Serum or plasma urea nitroge n measurement (mass/volume)Ordered By: Yaniv Crawford on 06-12-2024 Urea nitrogen [Mass/Vol] 15 mg/dL 7-18 [facility] Sodium levelOrdered By: Brant Crawford on 06-12-2024 Sodium [Moles/Vol] 138 mmol/L 136-145 [facility] TIBCOrdered By: Yaniv joseph on 06-12-2024 Total Iron Binding Capacity 301 ug/dL 250-450 [facility] Total proteinOrdered By: Flaco Crawford on 06-12-2024 Protein [Mass/Vol] 8.0 g/dL 6.4-8.2 [facility] White blood cell (WBC) count Ordered By: Yaniv Crawford on 06-12-2024 WBC (Bld) [#/Vol] 6.8 10*3/uL 4.4-11.0 [facility] .Auto Diffon 02-04-2024 Basophil, Absolute 0.1 10 3/mcL Normal 0.0-0.2 [facility] ([place]) Comment on above: Performed By: #### G FR, CBC, ADKYUNG, JOSE, MDW, ESR, BMP, CRP #### [place] [address] [address] Basophils/100 WBC (Bld) 0.9 % Normal 0.0-2.5 [facility] ([place]) Comment on above: Performed By: #### G FR, CBC, ADIFF, ANEU, MDW, ESR, BMP, CRP #### [address] [address] Eosinophil, Absolute 0.2 10 3/mcL Normal 0.0-0.4 [facility] ([place]) Comment on above: Performed By: #### G FR, CBC, ADIFF, ANEU, MDW, ESR, BMP, CRP #### [address] [address] Eosinophils/100 WBC (Bld) 2.1 % Normal 0.0-7.0 [facility] ([place]) Comment on above: Performed By: #### G FR, CBC, ADIFF, ANEU, MDW, ESR, BMP, CRP #### [address] [address] Lymphocyte, Absolute 1.2 10 3/mcL Normal 0.8-3.9 [facility] ([place]) Comment on above: Performed By: #### G FR, CBC, ADIFF, ANEU, MDW, ESR, BMP, CRP #### [address] [address] Lymphocytes/100 WBC (Bld) 13.3 % Normal 10.0-50.0 [facility] ([place]) Comment on above: Performed By: #### G FR, CBC, ADIFF, ANEU, MDW, ESR, BMP, CRP #### [address] [address] Monocyte, Absolute 0.4 10 3/mcL Normal 0.2-1.0 [facility] [facility] ([place]) Comment on above: Performed By: #### G FR, CBC, ADIFF, ANEU, MDW, ESR, BMP, CRP #### [address] [address] Monocytes/100 WBC (Bld) 4.6 % Normal 1.7-13.0 [facility] (MD) Comment on above: Performed By: #### G FR, CBC, ADIFF, ANEU, MDW, ESR, BMP, CRP #### [address] [address] Neutrophils/100 WBC (Bld) 79.1 % Normal 37.0-80.0 [facility] (MD) Comment on above: Performed By: #### G FR, CBCITZEL ANEU, MDW, ESR, BMP, CRP #### [place] [address] [address] .GFRon 02-04-2024 GFR 53 ml/min/1.73sqm Normal [facility] (MD) Comment on above: Result Comment: GFR Population [...] ANEU, MDW, ESR, BMP, CRP #### [place] [address] [address] GFR Non- 44 ml/min/1.73sqm Normal [facility] ([place]) Comment on above: Result Comment: GFR Population [...] JOSE ROBBINS MDW, ESR, BMP, CRP #### [address] [address] .MDWon 02-04-2024 Monocyte Distribution Width 16.72 Normal 0.00-20.00 [facility] ([place]) Comment on above: Result Comment: For ED adult patients suspected of sepsis, MDW<=20.0 does not rule out sepsis or risk of sepsis Performed By: #### G FR, CBC, ADIFF, ANEU, MDW, ESR, BMP, CRP #### [address] [address] .NEUABSon 02-04-2024 Neutrophil, Absolute 7.0 10 3/mcL High 2.9-6.2 [facility] (MD) Comment on above: Performed By: #### G FR, CBC, ADIFF, ANEU, MDW, ESR, BMP, CRP #### [address] [address] BMPon 02-04-2024 BUN/Creatinine Ratio 12 ratio Normal 7-27 [facility] (MD) Comment on above: Performed By: #### G FR, CBC, ADIFF, ANEU, MDW, ESR, BMP, CRP #### [address] [address] Calcium [Mass/Vol] 9.1 mg/dL Normal 8.4-10.2 [facility] (MD) Comment on above: Performed By: #### G FR, CBC, ADIFF, ANEU, MDW, ESR, BMP, CRP #### [address] [address] Chloride [Moles/Vol] 103 mmol/L Normal 98-107 [facility] (MD) Comment on above: Performed By: #### G FR, CBC, ADIFF, ANEU, MDW, ESR, BMP, CRP #### [address] [address] CO2 [Moles/Vol] 32 mmol/L High 22-29 [facility] ([place]) Comment on above: Performed By: #### G FR, CBC, ADIFF, ANEU, MDW, ESR, BMP, CRP #### [address] [address] Creatinine [Mass/Vol] 1.28 mg/dL High 0.55-1.02 [facility] (MD) Comment on above: Performed By: #### G FR, CBC, ADIFF, ANEU, MDW, ESR, BMP, CRP #### [address] [address] Electrolyte Balance 9.0 mEq/L Normal 4.0-15.0 [facility] (MD) Comment on above: Performed By: #### G FR, CBC, ADIFF, ANEU, MDW, ESR, BMP, CRP #### [address] [address] Glucose [Mass/Vol] 114 mg/dL High 70-105 [facility] ([place]) Comment on above: Performed By: #### G FR, CBC, ADIFF, ANEU, MDW, ESR, BMP, CRP #### [address] [address] Potassium [Moles/Vol] 3.8 mmol/L Normal 3.5-5.1 [facility] (MD) Comment on above: Performed By: #### G FR, CBC, ADIFF, ANEU, MDW, ESR, BMP, CRP #### [address] [address] Sodium [Moles/Vol] 144 mmol/L Normal 136-145 [facility] ([place]) Comment on above: Performed By: #### G FR, CBC, ADIFF, ANEU, MDW, ESR, BMP, CRP #### [address] [address] Urea nitrogen [Mass/Vol] 16 mg/dL Normal 7-18 [facility] ([place]) Comment on above: Performed By: #### G FR, CBC, ADIFF, ANEU, MDW, ESR, BMP, CRP #### [address] [address] CBCon 02-04-2024 Erythrocyte distribution width (RBC) [Ratio] 15.6 % High 11.5-14.5 [facility] ([place]) Comment on above: Performed By: #### G FR, CBC, ADIFF, ANEU, MDW, ESR, BMP, CRP #### [address] [address] Hematocrit (Bld) [Volume fraction] 31.8 % Low 37.0-47.0 [facility] ([place]) Comment on above: Performed By: #### G FR, CBC, ADIFF, ANEU, MDW, ESR, BMP, CRP #### [address] [address] Hgb 11.5 G/dL Low 12.0-16.0 [facility] ([place]) Comment on above: Performed By: #### G FR, CBC, ADIFF, ANEU, MDW, ESR, BMP, CRP #### [address] [address] MCH (RBC) [Entitic mass] 28.9 pg Normal 27.0-31.2 [facility] ([place]) Comment on above: Performed By: #### G FR, CBC, ADIFF, ANEU, MDW, ESR, BMP, CRP #### [place] [id number] MCHC 36.1 G/dL Normal 33.0-37.0 [facility] (MD) Comment on above: Performed By: #### G FR, CBC, ADIFF, ANEU, MDW, ESR, BMP, CRP #### [address] [address] MCV (RBC) [Entitic vol] 80.1 fL Normal 80.0-94.0 [facility] (MD) Comment on above: Performed By: #### G FR, CBC, ADIFF, ANEU, MDW, ESR, BMP, CRP #### [address] [address] Platelet 323 10 3/mcL Normal 130-400 [facility] ([place]) Comment on above: Performed By: #### G FR, CBC, ADIFF, ANEU, MDW, ESR, BMP, CRP #### [address] [address] Platelet mean volume (Bld) [Entitic vol] 7.2 fL Low 7.4-10.4 [facility] (MD) Comment on above: Performed By: #### G FR, CBC, ADIFF, ANEU, MDW, ESR, BMP, CRP #### [address] [address] RBC 3.98 10 6/mcL Low 4.20-5.40 [facility] ([place]) Comment on above: Performed By: #### G FR, CBC, ADIFF, ANEU, MDW, ESR, BMP, CRP #### [address] [address] WBC 8.8 10 3/mcL Normal 4.6-10.8 [facility] (MD) Comment on above: Performed By: #### G FR, CBC, ADIFF, ANEU, MDW, ESR, BMP, CRP #### [address] [address] CRPon 02-04-2024 C-Reactive Protein 0.8 mg/dL High 0.0-0.3 [facility] (MD) Comment on above: Performed By: #### G FR, CBC, ADIFF, ANEU, MDW, ESR, BMP, CRP #### [address] [address] [address] FOREARM W/ CONTRAST RIGHT on 02-04-2024 [...] 02/04/2024 7:49:04 AM Ordering Provider: ELIANE Sheridan [facility] (MD) ESRon 02-04-2024 Erythrocyte Sed Rate 30 mm/hr Normal 0-30 [facility] (MD) Comment on above: Performed By: #### G FR, CBC, ADIFF, ANEU, MDW, ESR, BMP, CRP #### [facility] [address] [place], [place] [address] LABORATORYOrdered By: SYSTEM SYSTEM on 02-04-2024 Basophil, [...] Free Triiodothyronine (T3) pg/dL 2.0 pg/mL 2.18-3.98 [facility] Serum or plasma thyroid stim ulating hormone (TSH) measurement (units/volume)Ordered By: Trevor Lanier on 01-25-2024 TSH Qn 1.33 uIU/mL 0.358-3.74 [facility] Serum or plasma thyroxine (T 4) measurement (mass/volume)Ordered By: Trevor Lanier on 01-25-2024 T4 [Mass/Vol] 9.4 ug/dL 4.8-13.9 [facility] Absolute lymphocyte countOrd ered By: Yaniv Crawford on 12-06-2023 Lymphocytes Auto (Unsp spec) [#/Vol] 1.55 10*3/uL 0.83-4.51 [facility] Automated lymphocyte count a s percentage of total leukocytesOrdered By: Yaniv Crawford on 12-06-2023 Lymphocytes/100 WBC Auto (Unsp spec) 22.4 % 19-41 [facility] Basophil percentageOrdered B y: Yaniv Crawford on 12-06-2023 Creatinine [Mass/Vol] 1.1 mg/dL 0.55-1.02 [facility] Basophils/100 WBC (Bld) 0.7 % 0-1 [facility] Bilirubin [Mass/Vol] 0.30 mg/dL 0.20-1.[address] [facility] Comment on above: For patients on eltr ombopag therapy, use of Dimension Muddy TBIL is not recommended. Chloride [Moles/Vol] 109 mmol/L 98-[address] [facility] Eosinophils/100 WBC (Bld) 5.1 % 0-5 [facility] Glucose [Mass/Vol] 98 mg/dL 74-106 [facility] Hemoglobin (Bld) [Mass/Vol] 10.8 g/dL 12.0-15.0 [facility] LDH [Catalytic activity/Vol] 216 U/L 84-246 [facility] Monocytes/100 WBC (Bld) 6.5 % 0-10 [facility] Neutrophils (Bld) [#/Vol] 4.5 10*3/uL 2.0-7.7 [facility] Neutrophils/100 WBC (Bld) 64.9 % 47-70 [facility] Potassium [Moles/Vol] 3.4 mmol/L 3.5-5.1 [facility] Protein [Mass/Vol] 7.7 g/dL 6.4-8.2 [facility] Sodium [Moles/Vol] 141 mmol/L 136-145 [facility] WBC (Bld) [#/Vol] 6.9 10*3/uL 4.4-11.0 [facility] Determination of erythrocyte mean corpuscular volume (MCV)Ordered By: Yaniv Crawford on 12-06-2023 MCV (RBC) [Entitic vol] 80.9 fL 81-99 [facility] Erythrocyte distribution wid th ratioOrdered By: Yaniv Crawford on 12-06-2023 Erythrocyte distribution width (RBC) [Ratio] 15.4 % 11.6-14.6 [facility] Erythrocyte distribution wid th standard deviationOrdered By: [facility] on 12-06-2023 Erythrocyte distribution width (RBC) [Entitic vol] 44.4 fL 35.1-43.9 [facility] Hematocrit Auto (Bld) [Volum e fraction]Ordered By: [facility] on 12-06-2023 Hematocrit (Bld) [Volume fraction] 33.0 % 37-47 [facility] Immature granulocytes/100 WB C Auto (Bld)Ordered By: [facility] on 12-06-2023 Immature granulocytes/100 WBC (Bld) 0.400 % 0.0-0.9 [facility] Comment on above: IG% - Immature Granu locytes (promyelocytes, myelocytes and metamyelocytes) > 1% indicates that a LEFT SHIFT is Present. Laboratory - Chemistry and C hemistry - challengeOrdered By: [facility] on 12-06-2023 GFR/1.73 sq M.predicted among non-blacks MDRD (S/P/Bld) [Vol rate/Area] 57.0000 mL/min/{1.73_m2} >60 [facility] Albumin/Globulin [Mass ratio] 1.0 {ratio} 0.9-2.4 [facility] ALP [Catalytic activity/Vol] 135 U/L 45-117 [facility] ALT [Catalytic activity/Vol] 30 U/L 13-56 [facility] CO2 [Moles/Vol] 28.0 mmol/L 21.0-32.0 [facility] Ferritin [Mass/Vol] 101 ng/mL 8-252 [facility] Globulin (S) [Mass/Vol] 3.8 g/dL 2.2-4.2 [facility] Urea nitrogen/Creatinine [Mass ratio] 13.2 mg/mg 10-20 [facility] Laboratory - Hematology and Cell countsOrdered By: [facility] on 12-06-2023 MCH (RBC) [Entitic mass] 26.5 pg 27.0-32.0 [facility] MCHC (RBC) [Mass/Vol] 32.7 g/dL 32-36 [facility] Nucleated RBC/100 WBC (Bld) [Ratio] 0 % 0-5 [facility] Platelet mean volume (Bld) [Entitic vol] 9.8 fL 6.2-12.0 [facility] Platelets (Bld) [#/Vol] 339 10*3/uL 150-450 [facility] No Panel InformationOrdered By: Yaniv Crawford on 12-06-2023 Estimated GFR (MDRD) Amer 64 mL/min >60 [facility] Comment on above: GFR Calc Estimated GFR (MDRD) Non-Af Amer 53 mL/min >60 [facility] Comment on above: Non- GFR Calc RBC Auto (Bld) [#/Vol]Ordere d By: Yaniv Crawford on 12-06-2023 RBC (Bld) [#/Vol] 4.08 10*6/uL 4.2-5.4 [facility] Serum or plasma calcium susanna urement (mass/volume)Ordered By: Yaniv Crawford on 12-06-2023 Calcium [Mass/Vol] 9.3 mg/dL 8.5-10.1 [facility] Serum or plasma creatinine m easurement (mass/volume)Ordered By: Yaniv Crawford on 12-06-2023 Creatinine [Mass/Vol] 1.14 mg/dL 0.55-1.02 [facility] Comment on above: The validity of the calculated GFR & GFRAA in patients over 70 years has not been determined. Clinical correlation is essential. Serum or plasma urea nitroge n measurement (mass/volume)Ordered By: Yaniv Crawford on 12-06-2023 Urea nitrogen [Mass/Vol] 15 mg/dL 7-18 [facility] Thin prep Papanicolaou smear with manual screeningOrdered By: Yaniv Crawford on 12-06-2023 Thin prep Papanicolaou smear with manual screening 3.9 g/dL 3.2-5.0 [facility] Thin prep Papanicolaou smear with manual screening 19 U/L 15-37 [facility] Thin prep Papanicolaou smear with manual screening 4 5-15 [facility] Cervical or vagninal specime n microscopic examination by cytology stain (reported asOrdered By: Tracey Herman on 07-18-2023 Cytology report Cyto stain Doc (Cvx/Vag) Comment . [facility] Comment on above: The Pap smear is [...] DNA Probe+sig amp Ql (Cvx) Negative Negative [facility] Comment on above: This nucleic acid am plification test detects fourteen high-risk HPV types (16,18,31,33,35,39,45,51,52,56,58,59,66,68)without differentiation. Laboratory - CytologyOrdered By: Tracey Herman on 07-18-2023 [facility] Cyto stain Nom (Cvx/Vag) [ID] Comment . [facility] Comment on above: Ketty cruz, Replenishment Associate (ASCP) Laboratory - Miscellaneous t estsOrdered By: Tracey Herman on 07-18-2023 Service comment (Unsp spec) [Interp] Comment . [facility] Comment on above: This liquid based Th inPrep(R) pap test was screened withthe use of an image guided system. Service comment (Unsp spec) [Interp] . . [facility] Liquid-based cerv Pap + CT/G C by GIANCARLO w reflex to high-risk HPV for ASCUSOrdered By: Tracey Herman on 07-18-2023 Cytology report Cyto stain.thin prep Doc (Cvx/Vag) Comment . [facility] Comment on above: Criteria not met, HP V Genotype not performed.Performed at: - [address], [place] [id number] Director: Em Tavarez MD, Phone: [phone] at: =[address] [id number] Director: Em Tavarez MD, Phone: [phone] No Panel InformationOrdered By: Tracey Herman on 07-18-2023 Pathology report final diagnosis Narrative Comment . [facility] Comment on above: NEGATIVE FOR INTRAEP ITHELIAL LESION OR MALIGNANCY. Absolute lymphocyte countOrd ered By: Rodo Sanford on 06-03-2023 Lymphocytes Auto (Unsp spec) [#/Vol] 1.56 10*3/uL 0.83-4.51 [facility] Basophil percentageOrdered B y: Rodo Sanford on 06-03-2023 Basophils/100 WBC (Bld) 0.5 % 0-1 [facility] Eosinophils/100 WBC (Bld) 3.0 % 0-5 [facility] Neutrophils (Bld) [#/Vol] 5.8 10*3/uL 2.0-7.7 [facility] Neutrophils/100 WBC (Bld) 71.9 % 47-70 [facility] WBC (Bld) [#/Vol] 8.0 10*3/uL 4.4-11.0 [facility] Blood erythrocytes count (nu mber/volume)Ordered By: Rodo Sanford on 06-03-2023 RBC (Bld) [#/Vol] 3.80 10*6/uL 4.2-5.4 [facility] Blood hemoglobin measurement (mass/volume)Ordered By: Rodo Sanford on 06-03-2023 Hemoglobin (Bld) [Mass/Vol] 10.9 g/dL 12.0-15.0 [facility] Blood lymphocytes/100 leukoc ytesOrdered By: Rodo Sanford on 06-03-2023 Lymphocytes/100 WBC (Bld) 19.5 % 19-41 [facility] Blood monocytes/100 leukocyt esOrdered By: Rodo Sanford on 06-03-2023 Monocytes/100 WBC (Bld) 4.3 % 0-10 [facility] Blood platelet mean volumeOr dered By: Rodo Sanford on 06-03-2023 Platelet mean volume (Bld) [Entitic vol] 8.7 fL 6.2-12.0 [facility] Determination of erythrocyte mean corpuscular volume (MCV)Ordered By: Rodo Sanford on 06-03-2023 MCV (RBC) [Entitic vol] 82.9 fL 81-99 [facility] Hematocrit Auto (Bld) [Volum e fraction]Ordered By: Rodo Sanford on 06-03-2023 Hematocrit (Bld) [Volume fraction] 31.5 % 37-47 [facility] INR in Blood by Coagulation assayOrdered By: Rodo Sanford on 06-03-2023 INR Coag (Bld) [Relative time] 1.1 {INR} [facility] Laboratory - CoagulationOrde red By: Rodo Sanford on 06-03-2023 aPTT Coag (Bld) [Time] 38.8 s 24.1-36.2 [facility] PT Coag (PPP) [Time] 13.8 s 11.7-14.[address] [facility] Laboratory - Hematology and Cell countsOrdered By: Rodo Sanford on 06-03-2023 Erythrocyte distribution width (RBC) [Entitic vol] 45.0 fL 35.1-43.9 [facility] Erythrocyte distribution width (RBC) [Ratio] 15.0 % 11.6-14.6 [facility] Immature granulocytes/100 WBC (Bld) 0.800 % 0.0-0.9 [facility] Comment on above: IG% - Immature Granu locytes (promyelocytes, myelocytes and metamyelocytes) > 1% indicates that a LEFT SHIFT is Present. MCH (RBC) [Entitic mass] 28.7 pg 27.0-32.0 [facility] Nucleated RBC/100 WBC (Bld) [Ratio] 0 % 0-5 [facility] MCHC Auto (RBC) [Mass/Vol]Or dered By: Rodo Sanford on 06-03-2023 MCHC (RBC) [Mass/Vol] 34.6 g/dL 32-36 [facility] Platelets bldOrdered By: Celestino Sanford on 06-03-2023 Platelets (Bld) [#/Vol] 281 10*3/uL 150-450 [facility] Absolute lymphocyte countOrd ered By: Yaniv Crawford on 05-16-2023 Lymphocytes Auto (Unsp spec) [#/Vol] 1.84 10*3/uL 0.83-4.51 [facility] Addendum DocumentOrdered By: Yaniv Ty on 05-16-2023 Serum Immunofixation Comments Comment . [facility] Comment on above: Protein electrophore sis scan will follow via computer,mail, or mobile device developer delivery.Performed at: [address] [id number] Director: Chance Waters PhD, Phone: [phone] Albumin Elph [Mass/Vol]Order ed By: Brantwayne Crawford on 05-16-2023 Albumin [Mass/Vol] 4.2 g/dL 2.9-4.4 [facility] Alpha 1 globulin Elph [Mass/ Vol]Ordered By: [facility] Crawofrd on 05-16-2023 Oeocf-6-U[address]aywlvd (STEFANIA) 0.2 g/dL 0.0-0.4 [facility] Zftkm-9-Owcaflwys (STEFANIA) 0.6 g/dL 0.4-1.0 [facility] Basophil percentageOrdered B y: Brantwayne Crawford on 05-16-2023 Basophils/100 WBC (Bld) 0.5 % 0-1 [facility] Bilirubin [Mass/Vol] 0.30 mg/dL 0.20-1.[address] [facility] Comment on above: For patients on eltr ombopag therapy, use of Dimension Muddy TBIL is not recommended. Chloride [Moles/Vol] 102 mmol/L 98-[address] [facility] Eosinophils/100 WBC (Bld) 2.1 % 0-5 [facility] Glucose [Mass/Vol] 90 mg/dL 74-106 [facility] LDH [Catalytic activity/Vol] 199 U/L 84-246 [facility] Neutrophils (Bld) [#/Vol] 6.6 10*3/uL 2.0-7.7 [facility] Neutrophils/100 WBC (Bld) 71.6 % 47-70 [facility] Potassium [Moles/Vol] 3.2 mmol/L 3.5-5.1 [facility] Protein [Mass/Vol] 7.6 g/dL 6.4-8.2 [facility] Sodium [Moles/Vol] 138 mmol/L 136-145 [facility] WBC (Bld) [#/Vol] 9.3 10*3/uL 4.4-11.0 [facility] Beta globulin Elph [Mass/Vol ]Ordered By: Yaniv Crawford on 05-16-2023 Beta-Globulins (STEFANIA) 1.0 g/dL 0.7-1.[address] [facility] Blood erythrocytes count (nu mber/volume)Ordered By: Yaniv Crawford on 05-16-2023 RBC (Bld) [#/Vol] 3.89 10*6/uL 4.2-5.4 [facility] Blood hemoglobin measurement (mass/volume)Ordered By: Yaniv Crawford on 05-16-2023 Hemoglobin (Bld) [Mass/Vol] 10.6 g/dL 12.0-15.0 [facility] Blood lymphocytes/100 leukoc ytesOrdered By: Yaniv Crawford on 05-16-2023 Lymphocytes/100 WBC (Bld) 19.9 % 19-41 [facility] Blood monocytes/100 leukocyt esOrdered By: Yaniv Crawford on 05-16-2023 Monocytes/100 WBC (Bld) 4.5 % 0-10 [facility] Blood platelet mean volumeOr dered By: Yaniv Crawford on 05-16-2023 Platelet mean volume (Bld) [Entitic vol] 8.9 fL 6.2-12.0 [facility] Determination of erythrocyte mean corpuscular volume (MCV)Ordered By: Yaniv Crawford on 05-16-2023 MCV (RBC) [Entitic vol] 83.8 fL 81-99 [facility] Erythrocyte sedimentation ra teOrdered By: Yaniv Crawford on 05-16-2023 ESR (Bld) [Velocity] 24 mm/h 0-[address] [facility] Folate [Mass/Vol]Ordered By: Yaniv Crawford on 05-16-2023 Folate 10.70 ng/mL 3.1-55.4 [facility] Gamma globulin Elph [Mass/Vo l]Ordered By: Yaniv Crawford on 05-16-2023 Gamma Globulins (STEFANIA) 1.1 g/dL 0.4-1.8 [facility] [employer] mix RAST testO rdered By: Yaniv Crawford on 05-16-2023 Albumin/Globulin (STEFANIA) 1.5 0.7-1.7 [facility] Hematocrit Auto (Bld) [Volum e fraction]Ordered By: Yaniv Crawford on 05-16-2023 Hematocrit (Bld) [Volume fraction] 32.6 % 37-47 [facility] INR in Blood by Coagulation assayOrdered By: Yaniv Crawford on 05-16-2023 INR Coag (Bld) [Relative time] 1.0 {INR} [facility] IgA [Mass/Vol]Ordered By: Shey Crawford on 05-16-2023 Immunoglobulin A 181 mg/dL 87-352 [facility] IgG [Mass/Vol]Ordered By: Shey Crawford on 05-16-2023 Immunoglobulin G 769 mg/dL [id number] [facility] IgM [Mass/Vol]Ordered By: Shey Crawford on 05-16-2023 Immunoglobulin M 692 mg/dL High 26-217 [facility] Comment on above: Results confirmed on dilution. Interpretation IEP [Interp]O rdered By: Yaniv Crawford on 05-16-2023 Immunofixation Screen Comment . [facility] Comment on above: No monoclonality det ected. Interpretation of serum or p lasma protein pattern by immunofixation (narrative resultOrdered By: Yaniv Crawford on 05-16-2023 Protein Fractions Immunofixation Mike [Interp] See comment [facility] Comment on above: NOT OBSERVED Iron measurement (mass/mass) Ordered By: Yaniv Crawford on 05-16-2023 Iron (Unsp spec) [Mass/Mass] 59 ug/dL 50-170 [facility] Laboratory - Chemistry and C hemistry - challengeOrdered By: Yaniv Crawford on 05-16-2023 ALP [Catalytic activity/Vol] 157 U/L 45-117 [facility] ALT [Catalytic activity/Vol] 42 U/L 13-56 [facility] CO2 [Moles/Vol] 30.0 mmol/L 21.0-32.0 [facility] Cobalamin (Vitamin B12) [Mass/Vol] 472 pg/mL 211-911 [facility] Urea nitrogen/Creatinine [Mass ratio] 12.5 mg/mg 10-20 [facility] Laboratory - CoagulationOrde red By: Yaniv Crawford on 05-16-2023 aPTT Coag (Bld) [Time] 42.5 s High 24.1-36.2 [facility] PT Coag (PPP) [Time] 13.2 s 11.7-14.[address] [facility] Laboratory - Hematology and Cell countsOrdered By: Yaniv Crawford on 05-16-2023 Erythrocyte distribution width (RBC) [Entitic vol] 45.3 fL 35.1-43.9 [facility] Erythrocyte distribution width (RBC) [Ratio] 15.1 % 11.6-14.6 [facility] Immature granulocytes/100 WBC (Bld) 1.400 % 0.0-0.9 [facility] Comment on above: IG% - Immature Granu locytes (promyelocytes, myelocytes and metamyelocytes) > 1% indicates that a LEFT SHIFT is Present. MCH (RBC) [Entitic mass] 27.2 pg 27.0-32.0 [facility] Nucleated RBC/100 WBC (Bld) [Ratio] 0 % 0-5 [facility] MCHC Auto (RBC) [Mass/Vol]Or dered By: Yaniv Crawford on 05-16-2023 MCHC (RBC) [Mass/Vol] 32.5 g/dL 32-36 [facility] No Panel InformationOrdered By: Yaniv Crawford on 05-16-2023 Addendum Document Comment . [facility] Comment on above: Protein electrophore sis scan will follow via computer,mail, or mobile device developer delivery.Performed at: [facility] [id number] Director: Chance Waters PhD, Phone: [phone] Estimated GFR (MDRD) Amer 87 mL/min >60 [facility] Comment on above: GFR Calc Estimated GFR (MDRD) Non-Af Amer 72 mL/min >60 [facility] Comment on above: Non- GFR Calc Total Iron Binding Capacity 277 ug/dL 250-450 [facility] Platelets bldOrdered By: Flaco alvares Ty on 05-16-2023 Platelets (Bld) [#/Vol] 295 10*3/uL 150-450 [facility] Protein Fractions Immunofixa tion Mike [Interp]Ordered By: Yaniv Crawford on 05-16-2023 M-Elian (STEFANIA) See comment [facility] Comment on above: NOT OBSERVED Serum [id number] measu rement by electrophoresisOrdered By: Yaniv Crawford on 05-16-2023 Alpha 1 globulin Elph [Mass/Vol] 0.2 g/dL 0.0-0.4 [facility] Alpha 1 globulin Elph [Mass/Vol] 0.6 g/dL 0.4-1.0 [facility] Serum globulin measurement ( mass/volume)Ordered By: Yaniv Crawford on 05-16-2023 Globulin (S) [Mass/Vol] 3.0 g/dL 2.2-3.9 [facility] Serum or plasma IgA measurem ent (mass/volume)Ordered By: Yainv Crawford on 05-16-2023 IgA [Mass/Vol] 181 mg/dL 87-352 [facility] Serum or plasma IgG measurem ent (mass/volume)Ordered By: Yaniv Crawford on 05-16-2023 IgG [Mass/Vol] 769 mg/dL [phone] [facility] Serum or plasma IgM measurem ent (mass/volume)Ordered By: Yaniv rCawford on 05-16-2023 IgM [Mass/Vol] 692 mg/dL High 26-217 [facility] Comment on above: Results confirmed on dilution. Serum or plasma albumin susanna urement (mass/volume)Ordered By: Yaniv Crawford on 05-16-2023 Albumin [Mass/Vol] 3.7 g/dL 3.2-5.0 [facility] Serum or plasma albumin/glob ulin mass ratioOrdered By: Yaniv Crawford on 05-16-2023 Albumin/Globulin [Mass ratio] 0.9 {ratio} 0.9-2.4 [facility] Serum or plasma beta globuli n measurement by electrophoresis (mass/volume)Ordered By: Yaniv Crawford on 05-16-2023 Beta globulin Elph [Mass/Vol] 1.0 g/dL 0.7-1.3 [facility] Serum or plasma calcium susanna urement (mass/volume)Ordered By: Yaniv Crawford on 05-16-2023 Calcium [Mass/Vol] 9.0 mg/dL 8.5-10.1 [facility] Serum or plasma creatinine m easurement (mass/volume)Ordered By: Yaniv Crawford on 05-16-2023 Creatinine [Mass/Vol] 0.88 mg/dL 0.55-1.02 [facility] Comment on above: The validity of the calculated GFR & GFRAA in patients over 70 years has not been determined. Clinical correlation is essential. Serum or plasma ferritin leonardo surement (mass/volume)Ordered By: Yaniv Crawford on 05-16-2023 Ferritin [Mass/Vol] 65 ng/mL 8-252 [facility] Serum or plasma folate measu rement (mass/volume)Ordered By: Yaniv Crawford on 05-16-2023 Folate [Mass/Vol] 10.70 ng/mL 3.1-55.4 [facility] Serum or plasma gamma globul in measurement by electrophoresis (mass/volume)Ordered By: Yaniv Crawford on 05-16-2023 Gamma globulin Elph [Mass/Vol] 1.1 g/dL 0.4-1.8 [facility] Serum or plasma immunoelectr ophoresis interpretation (nominal result)Ordered By: Yaniv Crawford on 05-16-2023 Interpretation IEP [Interp] Comment . [facility] Comment on above: No monoclonality det ected. Serum or plasma iron saturat ion measurement (mass fraction)Ordered By: Yaniv Crawford on 05-16-2023 Iron saturation [Mass fraction] 21.3 % 15.0-55.0 [facility] Serum or plasma urea nitroge n measurement (mass/volume)Ordered By: Yaniv Crawford on 05-16-2023 Urea nitrogen [Mass/Vol] 11 mg/dL 7-18 [facility] Thin prep Papanicolaou smear with manual screeningOrdered By: Yaniv Crawford on 05-16-2023 Thin prep Papanicolaou smear with manual screening 29 U/L 15-37 [facility] Thin prep Papanicolaou smear with manual screening 6 5-15 [facility] Thin prep Papanicolaou smear with manual screening 1.5 0.7-1.7 [facility] Total protein bloodOrdered B y: Yaniv Crawford on 05-16-2023 Protein [Mass/Vol] 7.2 g/dL 6.0-8.5 [facility] Basophil percentageOrdered B y: Mati Augustine on 04-18-2023 Creatinine [Mass/Vol] 1.0 mg/dL 0.55-1.02 [facility] No Panel InformationOrdered By: Mati Augustine on 04-18-2023 Bedside Estimated GFR (eGFR) > 60.0000 mL/min >60 [facility] Laboratory - Chemistry and C hemistry - challengeOrdered By: Dr. Augustine on 03-22-2023 Amylase [Catalytic activity/Vol] 76 U/L 5-55 [facility] Absolute lymphocyte countOrd ered By: Dr. Augustine on 02-10-2023 Lymphocytes Auto (Unsp spec) [#/Vol] 1.76 10*3/uL 0.83-4.51 [facility] Basophil percentageOrdered B y: Dr. Augustine on 02-10-2023 Basophils/100 WBC (Bld) 0.8 % 0-1 [facility] Bilirubin [Mass/Vol] 0.30 mg/dL 0.20-1.[address] [facility] Comment on above: For patients on eltr ombopag therapy, use of Dimension Muddy TBIL is not recommended. Chloride [Moles/Vol] 105 mmol/L 98-[address] [facility] Eosinophils/100 WBC (Bld) 3.1 % 0-5 [facility] Glucose [Mass/Vol] 103 mg/dL 74-106 [facility] Comment on above: Fasting Glucose resu lt from 100 to 125 mg/dL suggests IMPAIRED HOMEOSTASIS per A.D.A. criteria. Neutrophils (Bld) [#/Vol] 4.7 10*3/uL 2.0-7.7 [facility] Neutrophils/100 WBC (Bld) 65.6 % 47-70 [facility] Potassium [Moles/Vol] 4.0 mmol/L 3.5-5.1 [facility] Protein [Mass/Vol] 8.1 g/dL 6.4-8.2 [facility] Sodium [Moles/Vol] 140 mmol/L 136-145 [facility] WBC (Bld) [#/Vol] 7.2 10*3/uL 4.4-11.0 [facility] Blood erythrocytes count (nu mber/volume)Ordered By: Dr. Augustine on 02-10-2023 RBC (Bld) [#/Vol] 4.02 10*6/uL 4.2-5.4 [facility] Blood hemoglobin measurement (mass/volume)Ordered By: Dr. Augustine on 02-10-2023 Hemoglobin (Bld) [Mass/Vol] 11.0 g/dL 12.0-15.0 [facility] Blood lymphocytes/100 leukoc ytesOrdered By: Dr. Augustine on 02-10-2023 Lymphocytes/100 WBC (Bld) 24.4 % 19-41 [facility] Blood monocytes/100 leukocyt esOrdered By: Dr. Augustine on 02-10-2023 Monocytes/100 WBC (Bld) 5.4 % 0-10 [facility] Blood platelet mean volumeOr dered By: Dr. Augustine on 02-10-2023 Platelet mean volume (Bld) [Entitic vol] 9.9 fL 6.2-12.0 [facility] Determination of erythrocyte mean corpuscular volume (MCV)Ordered By: Dr. Augustine on 02-10-2023 MCV (RBC) [Entitic vol] 84.3 fL 81-99 [facility] Hematocrit Auto (Bld) [Volum e fraction]Ordered By: Dr. Augustine on 02-10-2023 Hematocrit (Bld) [Volume fraction] 33.9 % 37-47 [facility] Laboratory - Chemistry and C hemistry - challengeOrdered By: Dr. Augustine on 02-10-2023 ALP [Catalytic activity/Vol] 170 U/L 45-117 [facility] ALT [Catalytic activity/Vol] 52 U/L 13-56 [facility] CO2 [Moles/Vol] 29.0 mmol/L 21.0-32.0 [facility] Globulin (S) [Mass/Vol] 3.9 g/dL 2.2-4.2 [facility] Urea nitrogen/Creatinine [Mass ratio] 14.2 mg/mg 10-20 [facility] Laboratory - Hematology and Cell countsOrdered By: Dr. Augustine on 02-10-2023 Erythrocyte distribution width (RBC) [Entitic vol] 44.6 fL 35.1-43.9 [facility] Erythrocyte distribution width (RBC) [Ratio] 14.6 % 11.6-14.6 [facility] Immature granulocytes/100 WBC (Bld) 0.700 % 0.0-0.9 [facility] Comment on above: IG% - Immature Granu locytes (promyelocytes, myelocytes and metamyelocytes) > 1% indicates that a LEFT SHIFT is Present. MCH (RBC) [Entitic mass] 27.4 pg 27.0-32.0 [facility] Nucleated RBC/100 WBC (Bld) [Ratio] 0 % 0-5 [facility] MCHC Auto (RBC) [Mass/Vol]Or dered By: Dr. Augustine on 02-10-2023 MCHC (RBC) [Mass/Vol] 32.4 g/dL 32-36 [facility] No Panel InformationOrdered By: Dr. Augustine on 02-10-2023 Estimated GFR (MDRD) Amer 70 mL/min >60 [facility] Comment on above: GFR Calc Estimated GFR (MDRD) Non-Af Amer 58 mL/min >60 [facility] Comment on above: Non- GFR Calc Platelets bldOrdered By: Dr. Augustine on 02-10-2023 Platelets (Bld) [#/Vol] 341 10*3/uL 150-450 [facility] Serum or plasma albumin susanna urement (mass/volume)Ordered By: Dr. Augustine on 02-10-2023 Albumin [Mass/Vol] 4.2 g/dL 3.2-5.0 [facility] Serum or plasma albumin/glob ulin mass ratioOrdered By: Dr. Augustine on 02-10-2023 Albumin/Globulin [Mass ratio] 1.1 {ratio} 0.9-2.4 [facility] Serum or plasma calcium susanna urement (mass/volume)Ordered By: Dr. Augustine on 02-10-2023 Calcium [Mass/Vol] 9.9 mg/dL 8.5-10.1 [facility] Serum or plasma creatinine m easurement (mass/volume)Ordered By: Dr. Augustine on 02-10-2023 Creatinine [Mass/Vol] 1.06 mg/dL 0.55-1.02 [facility] Comment on above: The validity of the calculated GFR & GFRAA in patients over 70 years has not been determined. Clinical correlation is essential. Serum or plasma urea nitroge n measurement (mass/volume)Ordered By: Dr. Augustine on 02-10-2023 Urea nitrogen [Mass/Vol] 15 mg/dL 7-18 [facility] Thin prep Papanicolaou smear with manual screeningOrdered By: Dr. Augustine on 02-10-2023 Thin prep Papanicolaou smear with manual screening 35 U/L 15-37 [facility] Thin prep Papanicolaou smear with manual screening 6 5-15 [facility] Laboratory - Chemistry and C hemistry - challengeOrdered By: Dr. Lanier on 01-21-2023 T4 [Mass/Vol] 10.2 ug/dL 4.8-13.9 [facility] No Panel InformationOrdered By: Dr. Lanier on 01-21-2023 Free Triiodothyronine (T3) pg/dL 2.4 pg/mL 2.18-3.98 [facility] Thyroid Stimulating Hormone (TSH) 2.36 uIU/mL 0.358-3.74 [facility] Absolute lymphocyte counton 08-27-2022 Lymphocytes Auto (Unsp spec) [#/Vol] 2.11 10*3/uL 0.83-4.51 [facility] Work Phone: Basophil percentageon 2021 Basophils/100 WBC (Bld) 0.6 % 0-1 [facility] Work Phone: Bilirubin [Mass/Vol] 0.30 mg/dL 0.20-1.[address] [facility] Work Phone: Comment on above: For patients on eltr ombopag therapy, use of Dimension Muddy TBIL is not recommended. Chloride [Moles/Vol] 105 mmol/L 98-107 [facility] Work Phone: Cholesterol [Mass/Vol] 187 mg/dL <200 [facility] Work Phone: Comment on above: <200 mg/dL Desirable 200-240 mg/dL Borderline >240 mg/dL High Risk Eosinophils/100 WBC (Bld) 3.6 % 0-5 [facility] Work Phone: Glucose [Mass/Vol] 121 mg/dL 74-106 [facility] Work Phone: Comment on above: Fasting Glucose resu lt from 100 to 125 mg/dL suggests IMPAIRED HOMEOSTASIS per A.D.A. criteria. Neutrophils (Bld) [#/Vol] 6.0 10*3/uL 2.0-7.7 [facility] Work Phone: Neutrophils/100 WBC (Bld) 67.1 % 47-70 [facility] Work Phone: Potassium [Moles/Vol] 3.4 mmol/L 3.5-5.1 [facility] Work Phone: [phone] Protein [Mass/Vol] 7.5 g/dL 6.4-8.2 [facility] Work Phone: Sodium [Moles/Vol] 140 mmol/L 136-145 [facility] Work Phone: Triglyceride [Mass/Vol] 374 mg/dL <199 [facility] Work Phone: Comment on above: The drugs N-Acetylcy steine and Metamizole may falsely depress this assay.Serum Triglycerides Reference Interval Normal <150 mg/dL Borderline high 150 - 199 mg/dL High 200 - 499 mg/dL Very High > or = 500 mg/dL WBC (Bld) [#/Vol] 8.9 10*3/uL 4.4-11.0 [facility] Work Phone: Blood erythrocytes count (nu mber/volume)on 08-27-2022 RBC (Bld) [#/Vol] 4.24 10*6/uL 4.2-5.4 [facility] Work Phone: Blood hemoglobin measurement (mass/volume)on 08-27-2022 Hemoglobin (Bld) [Mass/Vol] 11.6 g/dL 12.0-15.0 [facility] Work Phone: Blood lymphocytes/100 leukoc yteson 08-27-2022 Lymphocytes/100 WBC (Bld) 23.7 % 19-41 [facility] Work Phone: Blood monocytes/100 leukocyt eson 08-27-2022 Monocytes/100 WBC (Bld) 4.3 % 0-10 [facility] Work Phone: Blood platelet mean volumeon 08-27-2022 Platelet mean volume (Bld) [Entitic vol] 9.2 fL 6.2-12.0 [facility] Work Phone: Determination of erythrocyte mean corpuscular volume (MCV)on 08-27-2022 MCV (RBC) [Entitic vol] 82.1 fL 81-99 [facility] Work Phone: Hematocrit Auto (Bld) [Volum e fraction]on 08-27-2022 Hematocrit (Bld) [Volume fraction] 34.8 % 37-47 [facility] Work Phone: Laboratory - Chemistry and C hemistry - challengeon 08-27-2022 ALP [Catalytic activity/Vol] 160 U/L 45-117 [facility] Work Phone: ALT [Catalytic activity/Vol] 52 U/L 13-56 [facility] Work Phone: CO2 [Moles/Vol] 27.0 mmol/L 21.0-32.0 [facility] Work Phone: Globulin (S) [Mass/Vol] 3.8 g/dL 2.2-4.2 [facility] Work Phone: Urea nitrogen/Creatinine [Mass ratio] 18.3 mg/mg 10-20 [facility] Work Phone: Laboratory - Hematology and Cell countson 08-27-2022 Erythrocyte distribution width (RBC) [Entitic vol] 41.5 fL 35.1-43.9 [facility] Work Phone: Erythrocyte distribution width (RBC) [Ratio] 14.1 % 11.6-14.6 [facility] Work Phone: Immature granulocytes/100 WBC (Bld) 0.700 % 0.0-0.9 [facility] Work Phone: Comment on above: IG% - Immature Granu locytes (promyelocytes, myelocytes and metamyelocytes) > 1% indicates that a LEFT SHIFT is Present. MCH (RBC) [Entitic mass] 27.4 pg 27.0-32.0 [facility] Work Phone: Nucleated RBC/100 WBC (Bld) [Ratio] 0 % 0-5 [facility] Work Phone: MCHC Auto (RBC) [Mass/Vol]on 08-27-2022 MCHC (RBC) [Mass/Vol] 33.3 g/dL 32-36 [facility] Work Phone: No Panel Informationon 08-27 Estimated GFR (MDRD) Amer 76 mL/min >60 [facility] Work Phone: Comment on above: GFR Calc Estimated GFR (MDRD) Non-Af Amer 63 mL/min >60 [facility] Work Phone: Comment on above: Non- GFR Calc Platelets bldon 08-27-2022 Platelets (Bld) [#/Vol] 339 10*3/uL 150-450 [facility] Work Phone: Serum or plasma albumin susanna urement (mass/volume)on 08-27-2022 Albumin [Mass/Vol] 3.7 g/dL 3.2-5.0 [facility] Work Phone: Serum or plasma albumin/glob ulin mass ratioon 08-27-2022 Albumin/Globulin [Mass ratio] 1.0 {ratio} 0.9-2.4 [facility] Work Phone: Serum or plasma calcium susanna urement (mass/volume)on 08-27-2022 Calcium [Mass/Vol] 9.0 mg/dL 8.5-10.1 [facility] Work Phone: Serum or plasma cholesterol in HDL measurement (mass/volume)on 08-27-2022 Cholesterol in HDL [Mass/Vol] 43 mg/dL >40 [facility] Work Phone: Comment on above: The drugs N-Acetylcy steine and Metamizole may falsely depress this assay. Reference Range HDL <40 mg/dL Low HDL Cholesterol HDL >or= 60 mg/dL High HDL Cholesterol Serum or plasma cholesterol in VLDL measurement (mass/volume)on 08-27-2022 Cholesterol in VLDL [Mass/Vol] 75 mg/dL 5-40 [facility] Work Phone: Serum or plasma creatinine m easurement (mass/volume)on 08-27-2022 Creatinine [Mass/Vol] 0.99 mg/dL 0.55-1.02 [facility] Work Phone: Comment on above: The validity of the calculated GFR & GFRAA in patients over 70 years has not been determined. Clinical correlation is essential. Serum or plasma low density lipoprotein (LDL) cholesterol measurement (mass/volume)on 08-27-2022 Cholesterol in LDL [Mass/Vol] 69 mg/dL 0-130 [facility] Work Phone: Serum or plasma urea nitroge n measurement (mass/volume)on 08-27-2022 Urea nitrogen [Mass/Vol] 18 mg/dL 7-18 [facility] Work Phone: Thin prep Papanicolaou smear with manual screeningon 08-27-2022 Thin prep Papanicolaou smear with manual screening 37 U/L 15-37 [facility] Work Phone: Thin prep Papanicolaou smear with manual screening 8 5-15 [facility] Work Phone: Cervical or vagninal specime n microscopic examination by cytology stain (reported ason 08-11-2022 Cytology report Cyto stain Doc (Cvx/Vag) Comment . [facility] Work Phone: Comment on above: The Pap smear is a s creening test designed to aid in thedetection of premalignant and malignant conditions of theuterine cervix. It is not a diagnostic procedure andshould not be used as the sole means of detecting cervicalcancer. Both false-positive and false-negative reports dooccur. Laboratory - Cytologyon [facility] Cyto stain Nom (Cvx/Vag) [ID] Comment . [facility] Work Phone: Comment on above: Jelena Pringle, Cytot echnologist (ASCP) Laboratory - Miscellaneous t estson 08-11-2022 Service comment (Unsp spec) [Interp] TNP [facility] Work Phone: Comment on above: Test not performedTh e Thin Prep(R) [employer] Specialist was unable to read this specimen.Therefore a manual review was performed. Service comment (Unsp spec) [Interp] . . [facility] Work Phone: No Panel Informationon 08-11 Human Papillomavirus Screen Comment . [facility] Work Phone: Comment on above: The HPV DNA reflex c rosalie were not met with this specimenresult therefore, no HPV testing was performed.Performed at: [address] [id number] Director: Em Tavarez MD, Phone: [phone] Pathology report final diagnosis Narrative Comment . [facility] Work Phone: Comment on above: NEGATIVE FOR INTRAEP ITHELIAL LESION OR MALIGNANCY. No Panel Informationon 03-10 Follicle Stimulating Hormone 6.6 mIU/mL [facility] Work Phone: Comment on above: NORMAL REFERENCE RAN GES FEMALE FOLLICULAR 2.3 - 12.6 mIU/mL MID-CYCLE PEAK 5.2 - 17.5 mIU/mL LUTEAL 1.7 - 12.9 mIU/mL POST-MENOPAUSAL ON MHT 5.9 - 72.8 mIU/mL NOT ON MHT 12.7 - 132.2 mlU/mL MALE 0.7 - 10.8 mIU/mL Basophil percentageon 2021 Cholesterol [Mass/Vol] 187 mg/dL <200 [facility] Work Phone: Comment on above: <200 mg/dL Desirable 200-240 mg/dL Borderline >240 mg/dL High Risk Triglyceride [Mass/Vol] 286 mg/dL [facility] Work Phone: Comment on above: The drugs N-Acetylcy steine and Metamizole may falsely depress this assay.Serum Triglycerides Reference Interval Normal <150 mg/dL Borderline high 150 - 199 mg/dL High 200 - 499 mg/dL Very High > or = 500 mg/dL Laboratory - Chemistry and C hemistry - challengeon 12-01-2021 Free T4 [Mass/Vol] 0.94 ng/dL 0.76-1.46 [facility] Work Phone: No Panel Informationon 12-01 Thyroglobulin Antibody < 1.0 IU/mL [facility] Work Phone: Comment on above: Thyroglobulin Antibo dy measured by [employer]pect[employer] SoftwareMethodologyPerformed at: [facility] [address] [id number] Director: Chance Waters PhD, Phone: [phone] Thyroid Stimulating Hormone (TSH) 1.99 uIU/mL 0.358-3.74 [facility] Work Phone: Serum or plasma cholesterol in HDL measurement (mass/volume)on 12-01-2021 Cholesterol in HDL [Mass/Vol] 39 mg/dL [facility] Work Phone: Comment on above: The drugs N-Acetylcy steine and Metamizole may falsely depress this assay. Reference Range HDL <40 mg/dL Low HDL Cholesterol HDL >or= 60 mg/dL High HDL Cholesterol Serum or plasma cholesterol in VLDL measurement (mass/volume)on 12-01-2021 Cholesterol in VLDL [Mass/Vol] 57 mg/dL 5-40 [facility] Work Phone: Serum or plasma low density lipoprotein (LDL) cholesterol measurement (mass/volume)on 12-01-2021 Cholesterol in LDL [Mass/Vol] 91 mg/dL 0-130 [facility] Work Phone: Serum or plasma thyroperoxid ase antibody assay (units/volume)on 12-01-2021 TPO Ab Qn 38 [IU]/mL [facility] Work Phone: Vital Signs Date Time Vital Sign Value Performing Clinician Facility 07-26-2025 16:00-0400 Body temperature 97.4 [degF] Dr. Mati Augustine DO Work Phone: [facility] 07-26-2025 16:00-0400 Diastolic blood pressure 50 mm[Hg] Dr. Mati Augustine DO Work Phone: [facility] 07-26-2025 16:00-0400 Heart rate 88 /min Dr. Mati Augustine DO Work Phone: [facility] 07-26-2025 16:00-0400 Respiratory rate 18 /min Dr. Mati Augustine DO Work Phone: [facility] 07-26-2025 16:00-0400 SaO2% (BldA) [Mass fraction] 96 % Dr. Mati Augustine DO Work Phone: [facility] 07-26-2025 16:00-0400 Systolic blood pressure 101 mm[Hg] Dr. Mati Augustine DO Work Phone: [facility] 07-26-2025 15:30-0400 Inhaled oxygen flow rate 2 L/min Dr. Mati Augustine DO Work Phone: [facility] 07-26-2025 09:51-0400 Body height 157.[address] Mati Augustine DO Work Phone: [facility] 07-26-2025 09:51-0400 Body mass index (BMI) [Ratio] 35.4 kg/m2 Dr. Mati Augustine DO Work Phone: [facility] 07-26-2025 09:51-0400 Body weight 87.[address] Mati Augustine DO Work Phone: [facility] 07-19-2025 14:27-0400 Body mass index (BMI) [Ratio] 36.2 kg/m2 Dr. Mati Augustine DO Work Phone: [facility] 07-19-2025 14:27-0400 Body weight 89.[address] Mati Augustine DO Work Phone: [facility] 07-19-2025 14:27-0400 Diastolic blood pressure 66 mm[Hg] Dr. Mati Augustine DO Work Phone: [facility] 07-19-2025 14:27-0400 Respiratory rate 16 /min Dr. Mati Augustine DO Work Phone: [facility] 07-19-2025 14:27-0400 SaO2% (BldA) [Mass fraction] 97 % Dr. Mati Augustine DO Work Phone: [facility] 07-19-2025 14:27-0400 Systolic blood pressure 97 mm[Hg] Dr. Mati Augustine DO Work Phone: [facility] 07-19-2025 13:27-0400 Heart rate 90 /min Dr. Mati Augustine DO Work Phone: [facility] 07-19-2025 13:04-0400 Body mass index (BMI) [Ratio] 36.3 kg/m2 Dr. Mati Augustine DO Work Phone: [facility] 07-19-2025 13:04-0400 Body temperature 97 [degF] Dr. Mati Augustine DO Work Phone: [facility] 07-19-2025 13:04-0400 Body weight 89.[address] Mati Augustine DO Work Phone: [facility] 07-19-2025 13:04-0400 Diastolic blood pressure 70 mm[Hg] Dr. Mati Augustine DO Work Phone: [facility] 07-19-2025 13:04-0400 Respiratory rate 16 /min Dr. Mati Augustine DO Work Phone: [facility] 07-19-2025 13:04-0400 SaO2% (BldA) [Mass fraction] 99 % Dr. Mati Augustine DO Work Phone: [facility] 07-19-2025 13:04-0400 Systolic blood pressure 124 mm[Hg] Dr. Mati Augustine DO Work Phone: [facility] 06-05-2025 12:51-0400 Body height 157.[address] Mati Augustine DO Work Phone: [facility] 06-05-2025 12:51-0400 Body mass index (BMI) [Ratio] 37.7 kg/m2 Dr. Mati Augustine DO Work Phone: [facility] 06-05-2025 12:51-0400 Body temperature 97.2 [degF] Dr. Mati Augustine DO Work Phone: [facility] 06-05-2025 12:51-0400 Body weight 93.[address] Mati Augustine DO Work Phone: [facility] 06-05-2025 12:51-0400 Diastolic blood pressure 79 mm[Hg] Dr. Mati Augustine DO Work Phone: [facility] 06-05-2025 12:51-0400 Heart rate 82 /min Dr. Mati Augustine DO Work Phone: [facility] 06-05-2025 12:51-0400 Respiratory rate 17 /min Dr. Mati Augustine DO Work Phone: [facility] 06-05-2025 12:51-0400 SaO2% (BldA) [Mass fraction] 99 % Dr. Mati Augustine DO Work Phone: [facility] 06-05-2025 12:51-0400 Systolic blood pressure 117 mm[Hg] Dr. Mati Augustine DO Work Phone: [facility] 05-16-2025 13:57-0400 Body height 157.[address] Mati Augustine DO Work Phone: [facility] 05-16-2025 13:57-0400 Body mass index (BMI) [Ratio] 38 kg/m2 Dr. Mati Augustine DO Work Phone: [facility] 05-16-2025 13:57-0400 Body temperature 97.5 [degF] Dr. Mati Augustine DO Work Phone: [facility] 05-16-2025 13:57-0400 Body weight 94.[address] Mati Augustine DO Work Phone: [facility] 05-16-2025 13:57-0400 Diastolic blood pressure 72 mm[Hg] Dr. Mati Augustine DO Work Phone: [facility] 05-16-2025 13:57-0400 Heart rate 91 /min Dr. Mati Augustine DO Work Phone: [facility] 05-16-2025 13:57-0400 Respiratory rate 16 /min Dr. Mati Augustine DO Work Phone: [facility] 05-16-2025 13:57-0400 SaO2% (BldA) [Mass fraction] 96 % Dr. Mati Augustine DO Work Phone: [facility] 05-16-2025 13:57-0400 Systolic blood pressure 118 mm[Hg] Dr. Mati Augustine DO Work Phone: [facility] 05-07-2025 09:26-0400 Body height 157.5 cm Fabrizio Ambrocio MD Work Phone: [facility] 05-07-2025 09:26-0400 Body mass index (BMI) [Ratio] 38.19 kg/m2 Fabrizio Ambrocio MD Work Phone: [facility] 05-07-2025 09:26-0400 Body weight 94.7 kg Fabrizio Ambrocio MD Work Phone: [facility] 05-07-2025 09:26-0400 Diastolic blood pressure 75 mm[Hg] Fabrizio Ambrocio MD Work Phone: [facility] 05-07-2025 09:26-0400 Heart rate 85 /min Fabrizio Ambrocio MD Work Phone: [facility] 05-07-2025 09:26-0400 Respiratory rate 16 /min Fabrizio Ambrocio MD Work Phone: [facility] 05-07-2025 09:26-0400 SaO2% (BldA) [Mass fraction] 100 % Fabrizio Ambrocio MD Work Phone: [facility] 05-07-2025 09:26-0400 Systolic blood pressure 111 mm[Hg] Fabrizio Ambrocio MD Work Phone: [facility] 04-09-2025 09:45-0400 Body height 157.5 cm Fabrizio mAbrocio MD Work Phone: [facility] 04-09-2025 09:45-0400 Body mass index (BMI) [Ratio] 36.73 kg/m2 Fabrizio Ambrocio MD Work Phone: [facility] 04-09-2025 09:45-0400 Body weight 91.1 kg Fabrizio Ambrocio MD Work Phone: [facility] 04-09-2025 09:45-0400 Diastolic blood pressure 54 mm[Hg] Fabrizio Ambrocio MD Work Phone: [facility] 04-09-2025 09:45-0400 Heart rate 68 /min Fabrizio Ambrocio MD Work Phone: [facility] 04-09-2025 09:45-0400 SaO2% (BldA) [Mass fraction] 98 % Fabrizio Ambrocio MD Work Phone: [facility] 04-09-2025 09:45-0400 Systolic blood pressure 104 mm[Hg] Fabrizio Ambrocio MD Work Phone: [facility] 04-02-2025 09:30-0400 Body height 157.[address] Mati Augustine DO Work Phone: [facility] 04-02-2025 09:30-0400 Body mass index (BMI) [Ratio] 36.6 kg/m2 Dr. Mati Augustine DO Work Phone: [facility] 04-02-2025 09:30-0400 Body temperature 97.6 [degF] Dr. Mati Augustine DO Work Phone: [facility] 04-02-2025 09:30-0400 Body weight 90.[address] Mati Augustine DO Work Phone: [facility] 04-02-2025 09:30-0400 Diastolic blood pressure 70 mm[Hg] Dr. Mati Augustine DO Work Phone: [facility] 04-02-2025 09:30-0400 Heart rate 93 /min Dr. Mati Augustine DO Work Phone: [facility] 04-02-2025 09:30-0400 Respiratory rate 16 /min Dr. Mati Augustine DO Work Phone: [facility] 04-02-2025 09:30-0400 SaO2% (BldA) [Mass fraction] 97 % Dr. Mati Augustine DO Work Phone: [facility] 04-02-2025 09:30-0400 Systolic blood pressure 110 mm[Hg] Dr. Mati Augustine DO Work Phone: [facility] 03-22-2025 09:44-0400 Body height 157.5 cm Fabrizio Ambrocio MD Work Phone: [facility] 03-22-2025 09:44-0400 Body mass index (BMI) [Ratio] 37.13 kg/m2 Fabrizio Ambrocio MD Work Phone: [facility] 03-22-2025 09:44-0400 Body weight 92.08 kg Fabrizio Ambrocio MD Work Phone: [facility] 03-22-2025 09:44-0400 Diastolic blood pressure 75 mm[Hg] Fabrizio Ambrocio MD Work Phone: [facility] 03-22-2025 09:44-0400 Heart rate 108 /min Fabrizio Ambrocio MD Work Phone: [facility] 03-22-2025 09:44-0400 Respiratory rate 16 /min Fabrizio Ambrocio MD Work Phone: [facility] 03-22-2025 09:44-0400 SaO2% (BldA) [Mass fraction] 98 % Fabrizio Ambrocio MD Work Phone: [facility] 03-22-2025 09:44-0400 Systolic blood pressure 106 mm[Hg] Fabrizio Ambrocio MD Work Phone: [facility] 02-28-2025 22:47-0400 Body temperature 97.8 [degF] Dr. Mati Augustine DO Work Phone: [facility] 02-28-2025 22:47-0400 Diastolic blood pressure 88 mm[Hg] Dr. Mati Augustine DO Work Phone: [facility] 02-28-2025 22:47-0400 Heart rate 89 /min Dr. Mati Augustine DO Work Phone: [facility] 02-28-2025 22:47-0400 Respiratory rate 18 /min Dr. Mati Augustine DO Work Phone: [facility] 02-28-2025 22:47-0400 SaO2% (BldA) [Mass fraction] 99 % Dr. Mati Augustine DO Work Phone: [facility] 02-28-2025 22:47-0400 Systolic blood pressure 138 mm[Hg] Dr. Mati Augustine DO Work Phone: [facility] 02-28-2025 10:57-0400 Body height 157.[address] Mati Augustine DO Work Phone: [facility] 02-28-2025 10:57-0400 Body weight 86.[address] Mati Augustine DO Work Phone: [facility] 02-27-2025 19:22-0400 Body mass index (BMI) [Ratio] 34.9 kg/m2 Dr. Mati Augustine DO Work Phone: [facility] 02-27-2025 19:00-0400 Body temperature 98.2 [degF] Dr. Mati Augustine DO Work Phone: [facility] 02-27-2025 19:00-0400 Diastolic blood pressure 68 mm[Hg] Dr. Mati Augustine DO Work Phone: [facility] 02-27-2025 19:00-0400 Heart rate 101 /min Dr. Mati Augustine DO Work Phone: [facility] 02-27-2025 19:00-0400 Respiratory rate 16 /min Dr. Mati Augustine DO Work Phone: [facility] 02-27-2025 19:00-0400 SaO2% (BldA) [Mass fraction] 98 % Dr. Mati Augustine DO Work Phone: [facility] 02-27-2025 19:00-0400 Systolic blood pressure 124 mm[Hg] Dr. Mati Augustine DO Work Phone: [facility] 02-27-2025 08:51-0400 Body height 157.[address] Mati Augustine DO Work Phone: [facility] 02-27-2025 08:51-0400 Body mass index (BMI) [Ratio] 35.9 kg/m2 Dr. Mati Augustine DO Work Phone: [facility] 02-27-2025 08:51-0400 Body weight 89.[address] Mati Augustine DO Work Phone: [facility] 02-06-2025 13:07-0400 Body mass index (BMI) [Ratio] 33.3 kg/m2 Dr. Mati Augustine DO Work Phone: [facility] 02-06-2025 13:07-0400 Body temperature 98.6 [degF] Dr. Mati Augustine DO Work Phone: [facility] 02-06-2025 13:07-0400 Body weight 82.[address] Mati Augustine DO Work Phone: [facility] 02-06-2025 13:07-0400 Diastolic blood pressure 74 mm[Hg] Dr. Mati Augustine DO Work Phone: [facility] 02-06-2025 13:07-0400 Heart rate 80 /min Dr. Mati Augustine DO Work Phone: [facility] 02-06-2025 13:07-0400 Respiratory rate 16 /min Dr. Mati Augustine DO Work Phone: [facility] 02-06-2025 13:07-0400 SaO2% (BldA) [Mass fraction] 99 % Dr. Mati Augustine DO Work Phone: [facility] 02-06-2025 13:07-0400 Systolic blood pressure 114 mm[Hg] Dr. Mati Augustine DO Work Phone: [facility] 01-11-2025 08:17-0400 Body height 157.[address] Mati Augustine DO Work Phone: [facility] 01-11-2025 08:17-0400 Body mass index (BMI) [Ratio] 34.4 kg/m2 Dr. Mati Augustine DO Work Phone: [facility] 01-11-2025 08:17-0400 Body temperature 97.6 [degF] Dr. Mati Augustine DO Work Phone: [facility] 01-11-2025 08:17-0400 Body weight 85.[address] Mati Augustine DO Work Phone: [facility] 01-11-2025 08:17-0400 Diastolic blood pressure 68 mm[Hg] Dr. Mati Augustine DO Work Phone: [facility] 01-11-2025 08:17-0400 Heart rate 76 /min Dr. Mati Augustine DO Work Phone: [facility] 01-11-2025 08:17-0400 Respiratory rate 18 /min Dr. Mati Augustine DO Work Phone: [facility] 01-11-2025 08:17-0400 SaO2% (BldA) [Mass fraction] 96 % Dr. Mati Augustine DO Work Phone: [facility] 01-11-2025 08:17-0400 Systolic blood pressure 110 mm[Hg] Dr. Mati Augustine DO Work Phone: [facility] 12-25-2024 08:35-0400 Body mass index (BMI) [Ratio] 32.1 kg/m2 Dr. Mati Augustine DO Work Phone: [facility] 12-25-2024 08:35-0400 Body temperature 97.1 [degF] Dr. Mati Augustine DO Work Phone: [facility] 12-25-2024 08:35-0400 Body weight 79.[address] Mati Augustine DO Work Phone: [facility] 12-25-2024 08:35-0400 Diastolic blood pressure 78 mm[Hg] Dr. Mati Augustine DO Work Phone: [facility] 12-25-2024 08:35-0400 Heart rate 86 /min Dr. Mati Augustine DO Work Phone: [facility] 12-25-2024 08:35-0400 Respiratory rate 16 /min Dr. Mati Augustine DO Work Phone: [facility] 12-25-2024 08:35-0400 SaO2% (BldA) [Mass fraction] 97 % Dr. Mati Augustine DO Work Phone: [facility] 12-25-2024 08:35-0400 Systolic blood pressure 102 mm[Hg] Dr. Mati Augustine DO Work Phone: [facility] 12-11-2024 11:49-0400 Body height 157.[address] Mati Augustine DO Work Phone: [facility] 12-11-2024 11:49-0400 Body mass index (BMI) [Ratio] 32.3 kg/m2 Dr. Mati Augustine DO Work Phone: [facility] 12-11-2024 11:49-0400 Body temperature 98.5 [degF] Dr. Mati Augustine DO Work Phone: [facility] 12-11-2024 11:49-0400 Body weight 80.[address] Mati Augustine DO Work Phone: [facility] 12-11-2024 11:49-0400 Diastolic blood pressure 70 mm[Hg] Dr. Mati Augustine DO Work Phone: [facility] 12-11-2024 11:49-0400 Heart rate 91 /min Dr. Mati Augustine DO Work Phone: [facility] 12-11-2024 11:49-0400 Respiratory rate 16 /min Dr. Mati Augustine DO Work Phone: [facility] 12-11-2024 11:49-0400 SaO2% (BldA) [Mass fraction] 97 % Dr. Mati Augustine DO Work Phone: [facility] 12-11-2024 11:49-0400 Systolic blood pressure 105 mm[Hg] Dr. Mati Augustine DO Work Phone: [facility] 12-05-2024 09:47-0500 Diastolic blood pressure 65 mm[Hg] Dr. Mati Augustine DO Work Phone: [facility] 12-05-2024 09:47-0500 Heart rate 89 /min Dr. Mati Augustine DO Work Phone: [facility] 12-05-2024 09:47-0500 Respiratory rate 16 /min Dr. Mati Augustine DO Work Phone: [facility] 12-05-2024 09:47-0500 Systolic blood pressure 101 mm[Hg] Dr. Mati Augustine DO Work Phone: [facility] 12-05-2024 09:12-0500 Body temperature 96.4 [degF] Dr. Mati Augustine DO Work Phone: [facility] 02-04-2024 05:58-0400 Blood Pressure Location TESSA REICH DO [facility] 02-04-2024 05:58-0400 Blood Pressure [facility] 02-04-2024 05:58-0400 Body height 157.5 cm TESSA REICHFIELD DO [facility] 02-04-2024 05:58-0400 Body temperature 96.98 [degF] TESSA REICHFIELD DO [facility] 02-04-2024 05:58-0400 Body weight 77.3 kg TESSA REICHFIELD DO [facility] 02-04-2024 05:58-0400 Diastolic Blood Pressure Non-Invasive 78 mm[Hg] TESSA REICHFIELD DO [facility] 02-04-2024 05:58-0400 Heart rate 92 /min TESSA REICHFIELD DO [facility] 02-04-2024 05:58-0400 Respiratory rate 16 /min TESSA REICHFIELD DO [facility] 02-04-2024 05:58-0400 Systolic Blood Pressure Non-Invasive 109 mm[Hg] TESSA REICHFIELD DO [facility] 12-27-2023 09:30-0400 Body mass index (BMI) [Ratio] 32.7 kg/m2 Dr. Mati Augustine Work Phone: [facility] 12-27-2023 09:30-0400 Body temperature 97.7 [degF] Dr. Mati Augustine Work Phone: [facility] 12-27-2023 09:30-0400 Body weight 81.[address] Mati Augustine Work Phone: [facility] 12-27-2023 09:30-0400 Diastolic blood pressure 74 mm[Hg] Dr. Mati Augustine Work Phone: [facility] 12-27-2023 09:30-0400 Heart rate 84 /min Dr. Mati Augustine Work Phone: [facility] 12-27-2023 09:30-0400 Respiratory rate 16 /min Dr. Mati Augustine Work Phone: [facility] 12-27-2023 09:30-0400 SaO2% (BldA) [Mass fraction] 99 % Dr. Mati Augustine Work Phone: [facility] 12-27-2023 09:30-0400 Systolic blood pressure 116 mm[Hg] Dr. Mati Augustine Work Phone: [facility] 12-21-2023 14:35-0400 Body temperature 97.5 [degF] Dr. Mati Augustine Work Phone: [facility] 12-21-2023 14:35-0400 Diastolic blood pressure 65 mm[Hg] Dr. Mati Augustine Work Phone: [facility] 12-21-2023 14:35-0400 Heart rate 74 /min Dr. Mati Augustine Work Phone: [facility] 12-21-2023 14:35-0400 Respiratory rate 16 /min Dr. Mati Augustine Work Phone: [facility] 12-21-2023 14:35-0400 SaO2% (BldA) [Mass fraction] 100 % Dr. Mati Augustine Work Phone: [facility] 12-21-2023 14:35-0400 Systolic blood pressure 99 mm[Hg] Dr. Mati Augustine Work Phone: [facility] 12-21-2023 11:20-0400 Body height 157.[address] Mati Augustine Work Phone: [facility] 12-21-2023 11:20-0400 Body mass index (BMI) [Ratio] 32.7 kg/m2 Dr. Mati Augustine Work Phone: [facility] 12-21-2023 11:20-0400 Body weight 81.[address] Mati Augustine Work Phone: [facility] 12-13-2023 15:23-0400 Body mass index (BMI) [Ratio] 33.3 kg/m2 Dr. Mati Augustine Work Phone: [facility] 12-13-2023 15:23-0400 Body temperature 98.2 [degF] Dr. Mati Augustine Work Phone: [facility] 12-13-2023 15:23-0400 Body weight 82.[address] Mati Augustine Work Phone: [facility] 12-13-2023 15:23-0400 Diastolic blood pressure 70 mm[Hg] Dr. Mati Augustine Work Phone: [facility] 12-13-2023 15:23-0400 Heart rate 92 /min Dr. Mati Augustine Work Phone: [facility] 12-13-2023 15:23-0400 Respiratory rate 18 /min Dr. Mati Augustine Work Phone: [facility] 12-13-2023 15:23-0400 SaO2% (BldA) [Mass fraction] 98 % Dr. Mati Augustine Work Phone: [facility] 12-13-2023 15:23-0400 Systolic blood pressure 102 mm[Hg] Dr. Mati Augustine Work Phone: [facility] 11-30-2023 11:19-0500 Body height 157.[address] Mati Augustine Work Phone: [facility] 11-30-2023 11:19-0500 Body mass index (BMI) [Ratio] 32.3 kg/m2 Dr. Mati Augustine Work Phone: [facility] 11-30-2023 11:19-0500 Body temperature 97.5 [degF] Dr. Mati Augustine Work Phone: [facility] 11-30-2023 11:19-0500 Body weight 80.[address] Mati Augustine Work Phone: [facility] 11-30-2023 11:19-0500 Diastolic blood pressure 70 mm[Hg] Dr. Mati Augustine Work Phone: [facility] 11-30-2023 11:19-0500 Heart rate 72 /min Dr. Mati Augustine Work Phone: [facility] 11-30-2023 11:19-0500 Respiratory rate 14 /min Dr. Mati Augustine Work Phone: [facility] 11-30-2023 11:19-0500 SaO2% (BldA) [Mass fraction] 99 % Dr. Mati Augustine Work Phone: [facility] 11-30-2023 11:19-0500 Systolic blood pressure 114 mm[Hg] Dr. Mati Augustine Work Phone: [facility] 11-01-2023 09:55-0500 Body mass index (BMI) [Ratio] 33.5 kg/m2 Dr. Mati Augustine Work Phone: [facility] 11-01-2023 09:55-0500 Body temperature 98.2 [degF] Dr. Mati Augustine Work Phone: [facility] 11-01-2023 09:55-0500 Body weight [address] Mati Augustine Work Phone: [facility] 11-01-2023 09:55-0500 Diastolic blood pressure 80 mm[Hg] Dr. Mati Augustine Work Phone: [facility] 11-01-2023 09:55-0500 Heart rate 92 /min Dr. Mati Augustine Work Phone: [facility] 11-01-2023 09:55-0500 Respiratory rate 14 /min Dr. Mati Augustine Work Phone: [facility] 11-01-2023 09:55-0500 SaO2% (BldA) [Mass fraction] 99 % Dr. Mati Augustine Work Phone: [facility] 11-01-2023 09:55-0500 Systolic blood pressure 112 mm[Hg] Dr. Mati Augustine Work Phone: [facility] 09-29-2023 10:31-0500 Body height 157.[address] Mati Augustine Work Phone: [facility] 09-29-2023 10:31-0500 Body mass index (BMI) [Ratio] 33.3 kg/m2 Dr. Mati Augustine Work Phone: [facility] 09-29-2023 10:31-0500 Body temperature 97.7 [degF] Dr. Mati Augustine Work Phone: [facility] 09-29-2023 10:31-0500 Body weight 82.[address] Mati Augustine Work Phone: [facility] 09-29-2023 10:31-0500 Diastolic blood pressure 60 mm[Hg] Dr. Mati Augustine Work Phone: [facility] 09-29-2023 10:31-0500 Heart rate 107 /min Dr. Mati Augustine Work Phone: [facility] 09-29-2023 10:31-0500 Respiratory rate 16 /min Dr. Mati Augustine Work Phone: [facility] 09-29-2023 10:31-0500 SaO2% (BldA) [Mass fraction] 98 % Dr. Mati Augustine Work Phone: [facility] 09-29-2023 10:31-0500 Systolic blood pressure 120 mm[Hg] Dr. Mati Augustine Work Phone: [facility] 07-18-2023 09:22-0400 Body height 157.[address] Mati Augustine Work Phone: [facility] 07-18-2023 09:22-0400 Body mass index (BMI) [Ratio] 35 kg/m2 Dr. Mati Augustine Work Phone: [facility] 07-18-2023 09:22-0400 Body weight 86.[address] Mati Augustine Work Phone: [facility] 07-18-2023 09:22-0400 Diastolic blood pressure 94 mm[Hg] Dr. Mati Augustine Work Phone: [facility] 07-18-2023 09:22-0400 Systolic blood pressure 148 mm[Hg] Dr. Mati Augustine Work Phone: [facility] 06-14-2023 15:22-0400 Body mass index (BMI) [Ratio] 34.2 kg/m2 Dr. Mati Augustine Work Phone: [facility] 06-14-2023 15:22-0400 Body temperature 97.4 [degF] Dr. Mati Augustine Work Phone: [facility] 06-14-2023 15:22-0400 Body weight 84.[address] Mati Augustine Work Phone: [facility] 06-14-2023 15:22-0400 Diastolic blood pressure 81 mm[Hg] Dr. Mati Augustine Work Phone: [facility] 06-14-2023 15:22-0400 Heart rate 92 /min Dr. Mati Augustine Work Phone: [facility] 06-14-2023 15:22-0400 Respiratory rate 16 /min Dr. Mati Augustine Work Phone: [facility] 06-14-2023 15:22-0400 SaO2% (BldA) [Mass fraction] 100 % Dr. Mati Augustine Work Phone: [facility] 06-14-2023 15:22-0400 Systolic blood pressure 121 mm[Hg] Dr. Mati Augustine Work Phone: [facility] 06-03-2023 11:04-0400 Diastolic blood pressure 85 mm[Hg] Dr. Mati Augustine Work Phone: [facility] 06-03-2023 11:04-0400 Heart rate 92 /min Dr. Mati Augustine Work Phone: [facility] 06-03-2023 11:04-0400 Respiratory rate 18 /min Dr. Mati Augustine Work Phone: [facility] 06-03-2023 11:04-0400 SaO2% (BldA) [Mass fraction] 100 % Dr. Mati Augustine Work Phone: [facility] 06-03-2023 11:04-0400 Systolic blood pressure 129 mm[Hg] Dr. Mati Augustine Work Phone: [facility] 06-03-2023 09:02-0400 Inhaled oxygen flow rate 41 L/min Dr. Mati Augustine Work Phone: [facility] 06-03-2023 08:28-0400 Body height 157.[address] Mati Augustine Work Phone: [facility] 06-03-2023 08:28-0400 Body mass index (BMI) [Ratio] 33.8 kg/m2 Dr. Mati Augustnie Work Phone: [facility] 06-03-2023 08:28-0400 Body temperature 98.7 [degF] Dr. Mati Augustine Work Phone: [facility] 06-03-2023 08:28-0400 Body weight 83.[address] Mati Augustine Work Phone: [facility] 05-31-2023 16:00-0400 Body height 157.[address] Mati Augustine Work Phone: [facility] 05-31-2023 16:00-0400 Body mass index (BMI) [Ratio] 34 kg/m2 Dr. Mati Augustine Work Phone: [facility] 05-31-2023 16:00-0400 Body temperature 98.3 [degF] Dr. Mati Augustine Work Phone: [facility] 05-31-2023 16:00-0400 Body weight 84.[address] Mati Augustine Work Phone: [facility] 05-31-2023 16:00-0400 Diastolic blood pressure 86 mm[Hg] Dr. Mati Augustine Work Phone: [facility] 05-31-2023 16:00-0400 Heart rate 95 /min Dr. Mati Augustine Work Phone: [facility] 05-31-2023 16:00-0400 Respiratory rate 18 /min Dr. Mati Augustine Work Phone: [facility] 05-31-2023 16:00-0400 SaO2% (BldA) [Mass fraction] 100 % Dr. Mati Augustine Work Phone: [facility] 05-31-2023 16:00-0400 Systolic blood pressure 117 mm[Hg] Dr. Mati Augustine Work Phone: [facility] 05-16-2023 14:06-0400 Body mass index (BMI) [Ratio] 34.2 kg/m2 Dr. Mati Augustine Work Phone: [facility] 05-16-2023 14:06-0400 Body temperature 98.2 [degF] Dr. Mati Augustine Work Phone: [facility] 05-16-2023 14:06-0400 Body weight 84.[address] Mati Augustine Work Phone: [facility] 05-16-2023 14:06-0400 Diastolic blood pressure 89 mm[Hg] Dr. Mati Augustine Work Phone: [facility] 05-16-2023 14:06-0400 Heart rate 88 /min Dr. Mati Augustine Work Phone: [facility] 05-16-2023 14:06-0400 Respiratory rate 18 /min Dr. Mati Augustine Work Phone: [facility] 05-16-2023 14:06-0400 SaO2% (BldA) [Mass fraction] 99 % Dr. Mati Augustine Work Phone: [facility] 05-16-2023 14:06-0400 Systolic blood pressure 131 mm[Hg] Dr. Mati Augustine Work Phone: [facility] 03-22-2023 09:28-0400 Body height 157.[address] Mati Augustine Work Phone: [facility] 03-22-2023 09:28-0400 Body mass index (BMI) [Ratio] 33.8 kg/m2 Dr. Mati Augustine Work Phone: [facility] 03-22-2023 09:28-0400 Body temperature 98 [degF] Dr. Mati Augustine Work Phone: [facility] 03-22-2023 09:28-0400 Body weight 83.[address] Mati Augustine Work Phone: [facility] 03-22-2023 09:28-0400 Diastolic blood pressure 82 mm[Hg] Dr. Mati Augustine Work Phone: [facility] 03-22-2023 09:28-0400 Heart rate 81 /min Dr. Mati Augustine Work Phone: [facility] 03-22-2023 09:28-0400 Respiratory rate 14 /min Dr. Mati Augustine Work Phone: [facility] 03-22-2023 09:28-0400 SaO2% (BldA) [Mass fraction] 99 % Dr. Mati Augustine Work Phone: [facility] 03-22-2023 09:28-0400 Systolic blood pressure 142 mm[Hg] Dr. Mati Augustine Work Phone: [facility] 03-01-2023 07:58-0400 Body mass index (BMI) [Ratio] 34.5 kg/m2 Dr. Mati Augustine Work Phone: [facility] 03-01-2023 07:58-0400 Body weight 85.[address] Mati Augustine Work Phone: [facility] 02-10-2023 09:18-0400 Body height 157.[address] Mati Augustine Work Phone: [facility] 02-10-2023 09:18-0400 Body mass index (BMI) [Ratio] 34.4 kg/m2 Dr. Mati Augustine Work Phone: [facility] 02-10-2023 09:18-0400 Body temperature 95.8 [degF] Dr. Mati Augustine Work Phone: [facility] 02-10-2023 09:18-0400 Body weight 85.[address] Mati Augustine Work Phone: [facility] 02-10-2023 09:18-0400 Diastolic blood pressure 80 mm[Hg] Dr. Mati Augustine Work Phone: [facility] 02-10-2023 09:18-0400 Heart rate 104 /min Dr. Mati Augustine Work Phone: [facility] 02-10-2023 09:18-0400 Respiratory rate 18 /min Dr. Mati Augustine Work Phone: [facility] 02-10-2023 09:18-0400 SaO2% (BldA) [Mass fraction] 96 % Dr. Mati Augustine Work Phone: [facility] 02-10-2023 09:18-0400 Systolic blood pressure 118 mm[Hg] Dr. Mati Augustine Work Phone: [facility] 01-21-2023 08:33-0400 Body height 157.[address] Mati Augustine Work Phone: [facility] 01-21-2023 08:33-0400 Body mass index (BMI) [Ratio] 35.4 kg/m2 Dr. Mati Augustine Work Phone: [facility] 01-21-2023 08:33-0400 Body weight 87.[address] Mati Augustine Work Phone: [facility] 01-21-2023 08:33-0400 Diastolic blood pressure 87 mm[Hg] Dr. Mati Augustine Work Phone: [facility] 01-21-2023 08:33-0400 Heart rate 98 /min Dr. Mati Augustine Work Phone: [facility] 01-21-2023 08:33-0400 Respiratory rate 18 /min Dr. Mati Augustine Work Phone: [facility] 01-21-2023 08:33-0400 SaO2% (BldA) [Mass fraction] 100 % Dr. Mati Augustine Work Phone: [facility] 01-21-2023 08:33-0400 Systolic blood pressure 132 mm[Hg] Dr. Mati Augustine Work Phone: [facility] 08-11-2022 16:07-0500 Body temperature 97.3 [degF] Dr. Mati Augustine Work Phone: [facility] Work Phone: 08-11-2022 16:07-0500 Body weight 91.[address] Mati Augustine Work Phone: [facility] Work Phone: 08-11-2022 16:07-0500 Diastolic blood pressure 92 mm[Hg] Dr. Mati Augustine Work Phone: [facility] Work Phone: 08-11-2022 16:07-0500 Heart rate 101 /min Dr. Mati Augustine Work Phone: [facility] Work Phone: 08-11-2022 16:07-0500 Respiratory rate 18 /min Dr. Mati Augustine Work Phone: [facility] Work Phone: 08-11-2022 16:07-0500 SaO2% (BldA) [Mass fraction] 97 % Dr. Mati Augustine Work Phone: [facility] Work Phone: 08-11-2022 16:07-0500 Systolic blood pressure 132 mm[Hg] Dr. Mati Augustine Work Phone: [facility] Work Phone: 03-10-2022 15:46-0400 Body height 157.[address] Mati Augustine Work Phone: [facility] Work Phone: 03-10-2022 15:46-0400 Body mass index (BMI) [Ratio] 36 kg/m2 Dr. Mati Augustine Work Phone: [facility] Work Phone: 03-10-2022 15:46-0400 Body temperature 97.7 [degF] Dr. Mati Augustine Work Phone: [facility] Work Phone: 03-10-2022 15:46-0400 Body weight 89.[address] Mati Augustine Work Phone: [facility] Work Phone: 03-10-2022 15:46-0400 Diastolic blood pressure 84 mm[Hg] Dr. Mati Augustine Work Phone: [facility] Work Phone: 03-10-2022 15:46-0400 Heart rate 115 /min Dr. Mati Augustine Work Phone: [facility] Work Phone: 03-10-2022 15:46-0400 Respiratory rate 16 /min Dr. Mati Augustine Work Phone: [facility] Work Phone: 03-10-2022 15:46-0400 SaO2% (BldA) [Mass fraction] 99 % Dr. Mati Augustine Work Phone: [facility] Work Phone: 03-10-2022 15:46-0400 Systolic blood pressure 122 mm[Hg] Dr. Mati Augustine Work Phone: [facility] Work Phone: 03-10-2022 15:46-0400 Body height 157.[address] Mati Augustine Work Phone: [facility] Work Phone: 03-10-2022 15:46-0400 Body mass index (BMI) [Ratio] 36 kg/m2 Dr. Mati Augustine Work Phone: [facility] Work Phone: 03-10-2022 15:46-0400 Body temperature 97.7 [degF] Dr. Mati Augustine Work Phone: [facility] Work Phone: 03-10-2022 15:46-0400 Body weight 89.[address] Mati Augustine Work Phone: [facility] Work Phone: 03-10-2022 15:46-0400 Diastolic blood pressure 84 mm[Hg] Dr. Mati Augustine Work Phone: [facility] Work Phone: 03-10-2022 15:46-0400 Heart rate 115 /min Dr. Mati Augustine Work Phone: [facility] Work Phone: 03-10-2022 15:46-0400 Respiratory rate 16 /min Dr. Mati Augustine Work Phone: [facility] Work Phone: 03-10-2022 15:46-0400 SaO2% (BldA) [Mass fraction] 99 % Dr. Mati Augustine Work Phone: [facility] Work Phone: 03-10-2022 15:46-0400 Systolic blood pressure 122 mm[Hg] Dr. Mati Augustine Work Phone: [facility] Work Phone: 01-21-2022 14:38-0400 Body mass index (BMI) [Ratio] 36.3 kg/m2 Dr. Mati Augustine Work Phone: [facility] Work Phone: 01-21-2022 14:38-0400 Body temperature 97.6 [degF] Dr. Mati Augustine Work Phone: [facility] Work Phone: 01-21-2022 14:38-0400 Body weight 90.[address] Mati Augustine Work Phone: [facility] Work Phone: 01-21-2022 14:38-0400 Diastolic blood pressure 56 mm[Hg] Dr. Mati Augustine Work Phone: [facility] Work Phone: 01-21-2022 14:38-0400 Heart rate 102 /min Dr. Mati Augustine Work Phone: [facility] Work Phone: 01-21-2022 14:38-0400 Respiratory rate 17 /min Dr. Mati Augustine Work Phone: [facility] Work Phone: 01-21-2022 14:38-0400 SaO2% (BldA) [Mass fraction] 98 % Dr. Mati Augustine Work Phone: [facility] Work Phone: 01-21-2022 14:38-0400 Systolic blood pressure 122 mm[Hg] Dr. Mati Augustine Work Phone: [facility] Work Phone: 01-21-2022 14:38-0400 Body mass index (BMI) [Ratio] 36.3 kg/m2 Dr. Mati Augustine Work Phone: [facility] Work Phone: 01-21-2022 14:38-0400 Body temperature 97.6 [degF] Dr. Mati Augustine Work Phone: [facility] Work Phone: 01-21-2022 14:38-0400 Body weight 90.[address] Mati Augustine Work Phone: [facility] Work Phone: 01-21-2022 14:38-0400 Diastolic blood pressure 56 mm[Hg] Dr. Mati Augustine Work Phone: [facility] Work Phone: 01-21-2022 14:38-0400 Heart rate 102 /min Dr. Mati Augustine Work Phone: [facility] Work Phone: 01-21-2022 14:38-0400 Respiratory rate 17 /min Dr. Mati Augustine Work Phone: [facility] Work Phone: 01-21-2022 14:38-0400 SaO2% (BldA) [Mass fraction] 98 % Dr. Mati Augustine Work Phone: [facility] Work Phone: 01-21-2022 14:38-0400 Systolic blood pressure 122 mm[Hg] Dr. Mati Augustine Work Phone: [facility] Work Phone: 01-20-2022 16:14-0400 Body mass index (BMI) [Ratio] 35.9 kg/m2 Dr. Mati Augustine Work Phone: [facility] Work Phone: 01-20-2022 16:14-0400 Body temperature 97.8 [degF] Dr. Mati Augustine Work Phone: [facility] Work Phone: 01-20-2022 16:14-0400 Body weight 89.[address] Mati Augustine Work Phone: [facility] Work Phone: 01-20-2022 16:14-0400 Diastolic blood pressure 60 mm[Hg] Dr. Mati Augustine Work Phone: [facility] Work Phone: 01-20-2022 16:14-0400 Heart rate 107 /min Dr. Mati Augustine Work Phone: [facility] Work Phone: 01-20-2022 16:14-0400 Respiratory rate 16 /min Dr. Mati Augustine Work Phone: [facility] Work Phone: 01-20-2022 16:14-0400 SaO2% (BldA) [Mass fraction] 97 % Dr. Mati Augustine Work Phone: [facility] Work Phone: 01-20-2022 16:14-0400 Systolic blood pressure 104 mm[Hg] Dr. Mati Augustine Work Phone: [facility] Work Phone: 01-20-2022 16:14-0400 Body mass index (BMI) [Ratio] 35.9 kg/m2 Dr. Mati Augustine Work Phone: [facility] Work Phone: 01-20-2022 16:14-0400 Body temperature 97.8 [degF] Dr. Mati Augustine Work Phone: [facility] Work Phone: 01-20-2022 16:14-0400 Body weight 89.[address] Mati Augustine Work Phone: [facility] Work Phone: 01-20-2022 16:14-0400 Diastolic blood pressure 60 mm[Hg] Dr. Mati Augustine Work Phone: [facility] Work Phone: 01-20-2022 16:14-0400 Heart rate 107 /min Dr. Mati Augustine Work Phone: [facility] Work Phone: 01-20-2022 16:14-0400 Respiratory rate 16 /min Dr. Mati Augustine Work Phone: [facility] Work Phone: 01-20-2022 16:14-0400 SaO2% (BldA) [Mass fraction] 97 % Dr. Mati Augustine Work Phone: [facility] Work Phone: 01-20-2022 16:14-0400 Systolic blood pressure 104 mm[Hg] Dr. Mati Augustine Work Phone: [facility] Work Phone: 12-23-2021 07:58-0400 Body mass index (BMI) [Ratio] 35.1 kg/m2 Dr. Mati Augustine Work Phone: [facility] Work Phone: 12-23-2021 07:58-0400 Body temperature 98 [degF] Dr. Mati Augustine Work Phone: [facility] Work Phone: 12-23-2021 07:58-0400 Body weight 87.[address] Mati Augustine Work Phone: [facility] Work Phone: 12-23-2021 07:58-0400 Diastolic blood pressure 82 mm[Hg] Dr. Mati Augustine Work Phone: [facility] Work Phone: 12-23-2021 07:58-0400 Heart rate 96 /min Dr. Mati Augustine Work Phone: [facility] Work Phone: 12-23-2021 07:58-0400 Respiratory rate 14 /min Dr. Mati Augustine Work Phone: [facility] Work Phone: 12-23-2021 07:58-0400 SaO2% (BldA) [Mass fraction] 98 % Dr. Mati Augustine Work Phone: [facility] Work Phone: 12-23-2021 07:58-0400 Systolic blood pressure 120 mm[Hg] Dr. Mait Augustine Work Phone: [facility] Work Phone: 12-23-2021 07:58-0400 Body height 157.[address] Mati Augustine Work Phone: [facility] Work Phone: 12-23-2021 07:58-0400 Body mass index (BMI) [Ratio] 35.1 kg/m2 Dr. Mati Augustine Work Phone: [facility] Work Phone: 12-23-2021 07:58-0400 Body temperature 98 [degF] Dr. Mati Augustine Work Phone: [facility] Work Phone: 12-23-2021 07:58-0400 Body weight 87.[address] Mati Augustine Work Phone: [facility] Work Phone: 12-23-2021 07:58-0400 Diastolic blood pressure 82 mm[Hg] Dr. Mati Augustine Work Phone: [facility] Work Phone: 12-23-2021 07:58-0400 Heart rate 96 /min Dr. Mati Augustine Work Phone: [facility] Work Phone: 12-23-2021 07:58-0400 Respiratory rate 14 /min Dr. Mati Augustine Work Phone: [facility] Work Phone: 12-23-2021 07:58-0400 SaO2% (BldA) [Mass fraction] 98 % Dr. Mati Augustine Work Phone: [facility] Work Phone: 12-23-2021 07:58-0400 Systolic blood pressure 120 mm[Hg] Dr. Mati Augustine Work Phone: [facility] Work Phone: 12-01-2021 07:30-0500 Body mass index (BMI) [Ratio] 35.1 kg/m2 Dr. Mati Augustine Work Phone: [facility] Work Phone: 12-01-2021 07:30-0500 Body temperature 96.5 [degF] Dr. Mati Augustine Work Phone: [facility] Work Phone: 12-01-2021 07:30-0500 Body weight 87.[address] Mati Augustine Work Phone: [facility] Work Phone: 12-01-2021 07:30-0500 Diastolic blood pressure 98 mm[Hg] Dr. Mati Augustine Work Phone: [facility] Work Phone: 12-01-2021 07:30-0500 Heart rate 111 /min Dr. Mati Augustine Work Phone: [facility] Work Phone: 12-01-2021 07:30-0500 Respiratory rate 16 /min Dr. Mati Augustine Work Phone: [facility] Work Phone: 12-01-2021 07:30-0500 SaO2% (BldA) [Mass fraction] 99 % Dr. Mati Augustine Work Phone: [facility] Work Phone: 12-01-2021 07:30-0500 Systolic blood pressure 148 mm[Hg] Dr. Mati Augustine Work Phone: [facility] Work Phone: Encounters Encounter Date Encounter Type Care Provider Facility Start: 08-06-2025 End: 08-06-2025 ambulatory Trevor Sanjay Facility[place] Start: 07-26-2025 ambulatory [facility] Facility: [facility] Start: 07-26-2025 End: 07-26-2025 ambulatory Trevor Lanier Facility:[facility] Start: 07-19-2025 End: 07-19-[address] Trevor Lanier MD -[facility] Work Phone: Start: 07-19-2025 End: 07-19-[address] Mati Augustine DO Work Phone: -[facility] Start: 07-19-2025 End: 07-19-2025 Patient encounter procedure Rob HERNANDEZ -[facility] Work Phone: Start: 07-19-2025 End: 07-19-[address] Mati Augustine DO Work Phone: -[facility] Start: 07-19-2025 Registered Referred HEALTH RIS K ASSESSMENT -Employee Health Start: 07-19-2025 ambulatory Mati Augustine [facility] y:[facility] Start: 07-19-2025 Registered Recurring EMPLOYEE HEALTH -Employee Health - Other Staff Start: 06-05-2025 End: 06-05-[address] Trevor Lanier MD -[facility] Work Phone: Start: 06-05-2025 End: 06-05-[address] Mati Augustine DO Work Phone: -[facility] Start: 06-05-2025 End: 06-05-2025 ambulatory Trevor Lanier Facility:[facility] Start: 05-21-2025 End: 05-21-2025 E-mail encounter from caregiver Paige Huddleston HABILITATION WORKER Work Phone: [facility] Start: 05-21-2025 End: 05-21-2025 Patient encounter procedure Paige Huddleston APRN.HABILITATION WORKER Work Phone: [facility] Comment on above: New medication Start: 05-16-2025 End: 05-16-[address] Mati Augustine DO Work Phone: -Laboratory Start: 05-16-2025 End: 05-16-2025 Patient encounter procedure Rob HERNANDEZ -Laboratory Work Phone: Start: 05-16-2025 End: 05-16-2025 Patient encounter procedure Rob HERNANDEZ -[facility] Work Phone: Start: 05-16-2025 End: 05-16-[address] Mati Augustine DO Work Phone: -[facility] Start: 05-16-2025 End: 05-16-2025 ambulatory Mati Augustine Facility:[facility] Start: 05-07-2025 End: 05-07-2025 Patient encounter procedure Fabrizio Ambrocio MD Work Phone: [facility] Comment on above: Intracranial meningi mei (HCC) (Primary Dx) Start: 05-07-2025 End: 05-07-2025 ambulatory FABRIZIO AMBROCIO [facility] Start: 04-30-2025 ambulatory PAIGE HUDDLESTON Facility :[facility] Start: 04-30-2025 End: 04-30-2025 Subsequent hospital visit by physician [facility] (I-Stat/1.5t) Work Phone: Radiology Comment on above: Intracranial meningi mei (HCC) [D32.0] Start: 04-09-2025 End: 04-09-2025 Patient encounter procedure Fabrizio Ambrocio MD Work Phone: [facility] Comment on above: Intracranial meningi mei (HCC) (Primary Dx) Start: 04-09-2025 End: 04-09-2025 ambulatory FABRIZIO AMBROCIO [facility] Start: 04-02-2025 End: 04-02-[address] Mati Mccartney DO -[facility] Work Phone: Start: 04-02-2025 End: 04-02-[address] Mati Augustine DO Work Phone: -[facility] Start: 03-22-2025 End: 03-22-2025 Patient encounter procedure Fabrizio Ambrocio MD Work Phone: [facility] Comment on above: Intracranial meningi mei (HCC) (Primary Dx) Start: 03-22-2025 End: 03-22-2025 ambulatory FABRIZIO AMBROCIO Facility[facility] Start: 03-01-2025 End: 03-09-2025 Evaluation and management of inpatient OLIVE YANG Facility:[facility] Start: 02-28-2025 Non-patient / Non-visit Dr. Esteban santiago MD -[facility] Work Phone: Start: 02-27-2025 Non-patient / Non-visit Dr. Godwin almaraz DO -[facility] Work Phone: Start: 02-27-2025 ambulatory Mati Augustine Facilit y:[facility] Start: 02-27-2025 End: 02-28-2025 Evaluation and management of inpatient Dr. Godwin Lynch DO -[facility] Work Phone: Start: 02-27-2025 End: 02-28-[address] Mati Augustine DO Work Phone: [facility] Work Phone: Start: 02-27-2025 End: 02-27-[address] Trevor Lanier MD -Cat Scan [facility] Work Phone: Start: 02-26-2025 End: 02-27-[address] [facility] Start: 02-19-2025 End: 02-19-2025 Clinical Support Leatha Guerrero Work Phone: [facility] Comment on above: GRAYSON (generalized anx iety disorder); Major depressive disorder, recurrent episode, moderate (HCC); PTSD (post-traumatic stress disorder) Start: 02-06-2025 End: 02-06-[address] Mati Mccartney DO -[facility] Work Phone: Start: 02-06-2025 End: 02-06-2025 ambulatory Mati Augustine Facility:[facility] Start: 01-26-2025 End: 01-26-[address] Briseida Starks DO -Laboratory Work Phone: Start: 01-26-2025 End: 01-26-2025 ambulatory Briseida Starks Facility:[facility] Start: 01-15-2025 End: 01-15-[address] Mati Augustine DO Work Phone: [facility] Work Phone: Start: 01-15-2025 End: 01-15-[address] Trevor Lanier MD -Laboratory Work Phone: Start: 01-15-2025 End: 01-15-2025 ambulatory Trevor Lanier Facility:[facility] Start: 01-11-2025 End: 01-11-[address] Trevor Lanier MD -[facility] Work Phone: Start: 01-11-2025 End: 01-11-2025 ambulatory Trevor Lanier Facility:[facility] Start: 01-05-2025 End: 01-05-[address] Trevor Lanier MD -[facility] Work Phone: Start: 01-05-2025 End: 01-05-2025 ambulatory Trevor Lanier Facility:[facility] Start: 12-25-2024 End: 12-25-[address] Mati Mccartney DO -[facility] Work Phone: Start: 12-25-2024 End: 12-25-2024 ambulatory Mati Augustine Facility:[facility] Start: 12-11-2024 End: 12-11-[address] Yaniv Crawford MD -[facility] Work Phone: Start: 12-11-2024 End: 12-11-2024 ambulatory Mati Augustine Facility:[facility] Start: 12-05-[address] Rissa Crawford MD -[facility] Start: 12-05-2024 End: 12-05-[address] Mati Augustine DO Work Phone: [facility] Work Phone: Start: 12-05-2024 End: 12-05-[address] Yaniv Crawford MD -Cat Scan, [facility] Work Phone: Start: 12-05-2024 End: 12-05-2024 ambulatory Mati Augustine Facility:[facility]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 status: employed current occupation: [employer] Smoking Status: Unknown if ever smoked alcohol [...] however, the brain (more content not included)... [facility] 07-19-2025 Progress note [facility] 07-19-2025 Progress note Note Date/Time July 19, 2025 1:46pm [facility] [address] [address] [place] [address] OFFICE VISIT Date of Service: 07/19/25 MR#: [id number] Acct: [id number] Name: SIERRA CORREA Rep #: [id number] : 1970 Provider: DAVID Westfall Age/Sex: 54/F Location: [facility] Status: Signed Intake Vital Signs 05/16/25 13:57 [...] 1 month follow up Chief Complaint: fu Property Adjuster Required: No Accompanied by: Self Is patient [...] follow up phentermine is helping with hunger [facility] Medical History Alcohol abuse Kidney disease GERD [...] History current occupational status: employed current occupation: [employer] Smoking Status: Unknown if ever smoked alcohol [...] and oriented x3 Limitations: altered mental status [facility] Head: normocephalic and atraumatic Ears: [...] medication alone. This note was generated with Inkling Systemsation software. It may contain incorrectwords, spelling, and punctuation that were not noted in checking the note beforesigning. Medications: Discontinued clonazepam (Klonopin) Discontinued Reason: By Stop Date 1 - 2 mg (1 - 2 x 1 mg) PO QHS 30 days PRN60 tabs 0RF panic attack(s) F41.0 - Panic disorder [episodic paroxysmal anxiety] Plan Details Goals & Barriers: Barriers Computer work 07/19/25 5149 <Electronically signed by Rob HERNANDEZ> Date _ Rob HERNANDEZ Cosigner Signature: Date (if applicable) CC: ~ [facility] Work Phone: 1(376) 268-334410-17-2025 Progress note Author Trevor Lanier [facility] Note Date/Time July 19, 2025 2 :59pm [facility] [address] [place], [place] [address] OFFICE VISIT Date of Service: 07/19/25 MR#: [id number] Acct: [id number] Name: SIERRA CORREA Rep #: [id number] : 1970 Provider: Dr. Noman Lanier MD Age/Sex: 54/F Location: [facility] Status: Signed Intake Vital Signs 06/05/25 12:51 [...] thyroid lobectomy Chief Complaint: discuss thyroid surgery Property Adjuster Required: No Is patient in pain?: No [...] is a 54-year-old female who [facility] a [facility] multiple thyroid nodules [...] her last visit was confirmed as a Mobile 2 cytopathology designation. I spent thebulk of [...] fallen in the past year?: No 07/19/25 8272 <Electronically signed by Trevor Lanier MD> Date _ Trevor Ponce Signature: Date (if applicable) CC: Dr. Mati Augustine, DO ~ [facility] Work Phone: 1(408) 803-703310-17-2025 Progress [facility] [address] [address] [place] [address] OFFICE VISIT Date of Service: 07/19/25 MR#: [id number] Acct: [id number] Name: SIERRA CORREA Rep #: [id number] : 1970 Provider: DAVID Westfall Age/Sex: 54/F Location: [facility] Status: Signed Intake Vital Signs 05/16/25 13:57 [...] 1 month follow up Chief Complaint: fu Property Adjuster Required: No Accompanied by: Self Is patient [...] follow up phentermine is helping with hunger [facility] Medical History Alcohol abuse Kidney disease GERD [...] History current occupational status: employed current occupation: [employer] Smoking Status: Unknown if ever smoked alcohol [...] medication alone. This note was generated with In[employer]ling Systems[employer] software. It may contain incorrectwords, spelling, and [...] Cosigner Signature: Date (if applicable) CC: ~ [facility]08-05-2025 History of Present illness Narrative* Fabrizio Ambrocio MD - 05/07/2025 9:30 AM EDT Images from the original note were not included. NEUROSURGERY POST OP NOTE Dr. Fabrizio Ambrocio MD, FACS Date of visit: May 07, 2025 Patient Name: Ms.Connie Cira Patton Date of : 1970 Current Age: [age] year old MRN/E# [id number] Last Office Visit: 04/09/2025 CHIEF COMPLAINT: Patient [...] Ambrocio was notified of this change by [employer] message on 03/14/2025. PRE-SURGICAL SYMPTOMS: Cognitive difficulty, blurry vision, mood swings, frontal headache, decreased sense of smell INCISION: Healed HISTORY OF PRESENT ILLNESS : The patient presents for a 8-week post operative visit with imaging (MRI B) for evaluation. This marcelo 54-year-old female with a PMHx of thyroid disease, obesity, anxiety who was seen for consult at [facility] on 03/01/2025. She reported that she saw [...] This note has been partially generated using St[employer]ion, a speech recognition software program, and may contain errors including punctuation, grammar, spelling, gender, and inappropriate words or phrases that pertain to the system. Recording using [employer] software for draft documentation of the visit was discussed with the patient/authorized dairy supplies sales representative; all questions welcomed and answered. Patient/authorized dairy supplies sales representative agreed to proceed documented in this encounterFirelands [facility]08-05-2025 NoteHNO ID: [id number] Author: FABRIZIO AMBROCIO MD Service: ? Author Type: Physician Type: Progress Notes Filed: 05/08/2025 08:12 Note Text: NEUROSURGERY POST OP NOTE Dr. Fabrizio Ambrocio MD, [facility] Date of visit: May 07, 2025 Patient Name: Ms.Connie Cira Patton Date of : 1970 Current Age: [age] year old MRN/E# [id number] Last Office Visit: 04/09/2025 CHIEF COMPLAINT: Patient [...] Ambrocio was notified of this change by [employer] message on 03/14/2025. PRE-SURGICAL SYMPTOMS: Cognitive difficulty, blurry vision, mood swings, frontal headache, decreased sense of smell INCISION: Healed HISTORY OF PRESENT ILLNESS : The patient presents for a 8-week post operative visit with imaging (MRI B) for evaluation. This is a 54-year-old female with a PMHx of thyroid disease, obesity, anxiety who was seen for consult at [facility] on 03/01/2025. She reported that she saw [...] mouth once daily. triamterene/hydroc (more content not included)...[facility] 04-30-2025 History of Present illness Narrative* [...] PATIENT PRESENTS WITH AN IMPLANTABLE OR ATTACHED ANIMAL ASSISTANT: No ALLERGIES: Reviewed and unchanged CONTRAST ALLERGY: NO. EXAM: MRI - CONTRAST TYPE: GROUP II PERIPHERAL IV DATA: Ambulatory: A peripheral IV was started in the Right antecubital site with a Angio cath: 22 gauge. RADIOLOGY DEPARTMENT: MR; Exam(s) Completed: Head: Routine Brain. Aromatherapy Administered: No SIGNATURE: RT Mary(R) PATIENT NAME: Sierra Patton DATE: April 30, 2025 TIME: 1:47 PM documented in this encounterFirelands Regional Medical [facility]07-29-2025 NoteHNO ID: [id number] Author: KEIKO HERNANDEZ RT(R) Service: ? Author [...] PATIENT PRESENTS WITH AN IMPLANTABLE OR ATTACHED ANIMAL ASSISTANT: No ALLERGIES: Reviewed and unchanged CONTRAST ALLERGY: NO. EXAM: MRI - CONTRAST TYPE: GROUP II PERIPHERAL IV DATA: Ambulatory: A peripheral IV was started in the Right antecubital site with a Angio cath: 22 gauge. RADIOLOGY DEPARTMENT: MR; Exam(s) Completed: Head: Routine Brain. Aromatherapy Administered: No SIGNATURE: RT Mary(R) PATIENT NAME: Sierra Patton DATE: April 30, 2025 TIME: 1:47 [facility]07-08-2025 History of Present illness Narrative* Fabrizio Ambrocio MD - 04/09/2025 10:00 AM EDT NEUROSURGERY POST OP NOTE Dr. Fabrizio Ambrocio MD, [facility] Date of visit: April 09, 2025 Patient Name: Ms.Connie Cira Patton Date of : 1970 Current Age: [age] year old MRN/E# [id number] Last Office Visit: 03/22/2025 CHIEF COMPLAINT: Patient [...] Ambrocio was notified of this change by [employer] message on 03/14/2025. PRE-SURGICAL SYMPTOMS: Cognitive difficulty, [...] disease, obesity, anxiety who was seen at [facility] for consult on 03/01/2025. Patient stated that [...] This note has been partially generated using Stemnion, a speech recognition software program, and may contain errors including punctuation, grammar, spelling, gender, and inappropriate words or phrases that pertain to the system. documented in this encounterFirelands Regional Medical Center [facility] Campus07-08-2025 NoteHNO ID: [id number] Author: FABRIZIO AMBROCIO MD Service: ? Author Type: Physician Type: Progress Notes Filed: 04/09/2025 10:19 Note Text: NEUROSURGERY POST OP NOTE Dr. Fabrizio Ambrocio MD, [facility] Date of visit: April 09, 2025 Patient Name: Ms.Connie Cira Patton Date of : 1970 Current Age: [age] year old MRN/E# [id number] Last Office Visit: 03/22/2025 CHIEF COMPLAINT: Patient [...] Ambrocio was notified of this change by [employer] message on 03/14/2025. PRE-SURGICAL SYMPTOMS: Cognitive difficulty, [...] disease, obesity, anxiety who was seen at [facility] for consult on 03/01/2025. Patient stated that [...] or IVAD, may acces (more content not included)...[facility]07-01-2025 Evaluation note* Diagnosis Onset Date Resolution [...] Thyroid nodule chronic June 05, 2025 12:43pm [facility] Work Phone: 1(645) 426-629107-01-2025 Evaluation note* Diagnosis Onset Date Resolution Status [...] 2:10pm Thyroid nodule chronic July 192024 2:10pm [facility] Work Phone: 1(517) 817-486406-20-2025 History of Present illness Narrative* Fabrizio Ambrocio MD - 03/22/2025 10:00 AM EDT NEUROSURGERY POST OP NOTE Dr. Fabrizio Ambrocio MD, FACS Date of visit: March 22, 2025 Patient Name: Ms.Connie Cira Patton Date of : 1970 Current Age: [age] year old MRN/E# [id number] Last Office Visit: Postop CHIEF COMPLAINT: Patient [...] Ambrocio was notified of this change by [employer] message on 03/14/2025. PRE-SURGICAL SYMPTOMS: Cognitive difficulty, [...] disease, obesity, anxiety who was seen at [facility] for consult on 03/01/2025. Patient stated that [...] This note has been partially generated using St[employer], a speech recognition software program, and may contain errors including punctuation, grammar, spelling, gender, and inappropriate words or phrases that pertain to the system. documented in this encounterFirelands Regional Medical Center [facility]06-20-2025 NoteHNO ID: [id number] Author: FABRIZIO AMBROCIO MD Service: ? Author Type: Physician Type: Progress Notes Filed: 03/22/2025 10:21 Note Text: NEUROSURGERY POST OP NOTE Dr. Fabrizio Ambrocio MD, [facility] Date of visit: March 22, 2025 Patient Name: Ms.Connie Cira Patton Date of : 1970 Current Age: [age] year old MRN/E# [id number] Last Office Visit: Postop CHIEF COMPLAINT: Patient [...] Ambrocio was notified of this change by [employer] message on 03/14/2025. PRE-SURGICAL SYMPTOMS: Cognitive difficulty, [...] disease, obesity, anxiety who was seen at [facility] for consult on 03/01/2025. Patient stated that [...] swelling, myalgias and neck (more content not included)...[facility]06-07-2025 NoteHNO ID: [id number] Author: KEIKO FOOTE APRN.HABILITATION WORKER Service: Psychiatry Author Type: Nurse Practitioner Type: [...] and there are no obvious signs of this.[facility]06-07-2025 NoteHNO ID: [id number] Author: KATLYN FRANCOIS RN Service: Care Management [...] Physician Primary Care Physician Name/Phone: Mati Augustine, [facility] [phone] Additional Information: Dc held yesterday for pain control. Plan is Dc home today. No Skilled or CM needs. Family to provide transport. SIGNATURE: Katlyn Francois RN PATIENT NAME: Sierra Patton DATE: March 09, 2025 TIME: 9:31 [facility]06-07-2025 NoteHNO ID: [id number] Author: ALIYA REZA APRN.CNP Service: Neurosurgery Author [...] 03/08/25699 - 03/09/2565803/09/25699 - 03/10/25 0659 Shift 2967-0013 0938-5028 6125-3305 24 Hour Total 2127-4185 8126-2593 5189-5954 24 Hour Total INTAKE PO 240 240 [...] March 09, 2025 TIME: 8:48 AM Pager: [phone] [facility]06-06-2025 NoteHNO ID: [id number] Author: AXEL FITZPATRICK LISW Service: Care Management Author Type: Seconds Inspector Type: Care Mgt Progress Note Filed: 03/08/2025 [...] Patton DATE: March 08, 2025 TIME: 1:01 [facility]06-05-2025 NoteHNO ID: [id number] Author: KATLYN FRANCOIS RN Service: Care Management [...] return home. Family to provide transport at [place]. CM to continue to follow. SIGNATURE: Katlyn Francois RN PATIENT NAME: Sierra Patton DATE: March 07, 2025 TIME: 12:31 [facility]06-05-2025 NoteHNO ID: [id number] Author: ALIYA REZA APRN.CNP Service: Neurosurgery Author [...] 03/07/2559 03/07/25 07 - 03/08/25 0659 Shift 2321-0384 6882-9816 0191-9979 24 Hour Total 7354-3063 5916-8122 0038-5692 24 Hour Total INTAKE IV 2200 1287 779 3365 Volume (mL) (ceFAZolin iv piggyback 2 g in D5W (iso-osmotic) 100 mL (ANCEF)) 100 100 Volume (mL) (levETIRAcetam 500 mg in NaCl 0.9% 100 mL (KEPPRA)) 100 100 Volume (mL) (lactated ringers iv infusion) 6679 225 8254 Volume (mL) (lactated ringers iv infusion) 5444 225 2496 Volume (mL) (lactated ringers iv infusion) 250 451 701 Shift Total 2200 9425 333 3659 OUTPUT Urine 2600 936 854 3525 OR Urine Output 2600 150 2750 Output ( Indwelling Urinary Catheter 03/06/25 1000 Rucker 16 Fr) 475 325 800 Blood 50 50 Estimated Blood loss 50 50 Shift Total 2650 701 621 4595 Weight (kg) 90.3 90.3 92.3 92.3 92.3 [...] 54 year old f (more content not included)...[facility]06-04-2025 NoteHNO ID: [id number] Author: SILVIA MTZ PA-C Service: Neurosurgery Author Type: Physician Rn Patient Services Type: Plan of Care Filed: 03/06/2025 17:39 [...] March 06, 2025 TIME: 5:35 PM Pager: [phone] [facility]06-04-2025 NoteHNO ID: [id number] Author: NATTY PATEL MD Service: Hospital Medicine [...] patient is ready for transfer to regular floor.[facility]06-04-2025 NoteHNO ID: [id number] Author: SERENA GIRON APRN.CRNA Service: Anesthesiology Author Type: Nurse Bed Operator Type: Anesthesia Procedure Notes Filed: 03/06/2025 10:10 Note Text: ANESTHESIOLOGY PROCEDURE NOTE PIV General Information Procedure Start Time/Medication Administration: 03/06/2025 10:09 AM Procedure End Time: 03/06/2025 10:09 AM Staffing ANATOMY PROFESSOR: Serena Giron APRN.ANATOMY PROFESSOR Performed by: BEN Preparation Sterility Preparation: hand [...] March 06, 2025 TIME: 10:09 AM CSN: [id number] Orleans East Hospital06-04-2025 NoteHNO ID: [id number] Author: SERENA GIRON APRN.CRNA Service: Anesthesiology Author Type: Nurse Bed Operator Type: Anesthesia Procedure Notes Filed: 03/06/2025 10:09 Note Text: ANESTHESIOLOGY PROCEDURE NOTE Airway General Information Procedure Start Time/Medication Administration: 03/06/2025 9:32 AM Procedure End Time: 03/06/2025 10:09 AM Patient location during procedure: OR Timeout Performed Pre-procedure: timeout performed Consent Obtained: Yes Patient identity confirmed: 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, 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 patient Staffing ANATOMY PROFESSOR: Serena Giron APRN.ANATOMY PROFESSOR Performed by: BEN Indications and Patient Condition [...] March 06, 2025 TIME: 10:09 AM CSN: [id number] Regional Hospital06-04-2025 NoteHNO ID: [id number] Author: KATLYN FRANCOIS RN Service: Care Management [...] Patton DATE: March 06, 2025 TIME: 8:38 AMHoulton Regional Hospital06-04-2025 NoteHNO ID: [id number] Author: MALIA FRYE PA-C Service: Neurosurgery Author Type: Physician Rn Patient Services Type: Progress Notes Filed: 03/06/2025 11:12 Note [...] Date 03/05/25699 - 03/06/2565803/06/25699 - 03/07/25658 Shift 2207-6523 9679-3502 4996-8385 24 Hour Total 0140-8320 2243-6650 9001-9965 24 Hour Total INTAKE IV 200 200 [...] March 06, 2025 TIME: 11:06 AM Pager: [phone] [facility]06-03-2025 NoteHNO ID: [id number] Author: RON BRUNO MD Service: Hospital Medicine Author Type: Physician Type: Progress Notes Filed: 03/05/2025 17:16 Note Text: Documentation Query Please clarify the diagnosis associated with he MRI findings: Cerebral Edema This document will become part of the patient's medical record.[facility]06-03-2025 NoteHNO ID: [id number] Author: RON BRUNO MD Service: Hospital Medicine Author Type: Physician Type: Progress Notes Filed: 03/05/2025 10:28 Note Text: DEPARTMENT OF HOSPITAL MEDICINE PROGRESS NOTE SERVICE DATE: 03/05/2025 SERVICE TIME: 10:24 AM Hospital Medicine/Primary Attending: Ron Bruno MD NIGHT AND WEEKEND COVERAGE: After 7pm please page [phone] SUBJECTIVE: Follow up for meningioma. No new [...] 1871 after 7PM, as my pager is off.[facility]06-02-2025 NoteHNO ID: [id number] Author: RON BRUNO MD Service: Hospital Medicine Author Type: Physician Type: Progress Notes Filed: 03/04/2025 12:25 Note Text: DEPARTMENT OF HOSPITAL MEDICINE PROGRESS NOTE SERVICE DATE: 03/04/2025 SERVICE TIME: 12:24 PM Hospital Medicine/Primary Attending: Ron Bruno MD NIGHT AND WEEKEND COVERAGE: After 7pm please page [phone] SUBJECTIVE: Follow up for Meningioma. No new [...] Patient SIGNATURE: Ron Bruno MD PATIENT NAME: Seirra Patton DATE: March 04, 2025 TIME: 12:24 PM PAGER/CONTACT #: My Pager. Page [phone] after 7PM, as my pager is off.[facility]06-02-2025 NoteHNO ID: [id number] Author: KATLYN FRANCOIS RN Service: Care Management [...] Patton DATE: March 04, 2025 TIME: 9:21 AMHoulton Regional Hospital06-01-2025 NoteHNO ID: [id number] Author: RON BRUNO MD Service: Hospital Medicine [...] 1871 after 7PM, as my pager is off.[facility]06-01-2025 NoteHNO ID: [id number] Author: FABRIZIO AMBROCIO MD Service: Neurosurgery Author [...] me verbal consent to proceed. Fabrizio Ambrocio, [facility]05-31-2025 NoteHNO ID: [id number] Author: MALIA FRYE PA-C Service: Neurosurgery Author Type: Physician Rn Patient Services Type: Progress Notes Filed: 03/02/2025 16:55 Note Text: Neurosurgery Progress Note SERVICE DATE: 03/02/2025 SUBJECTIVE: Called by RN for pt awakening from nap and repeating herself to her daughter and c/o halos around her eyes. On assessment all has resolved. She is currently c/o pain to the left roman catholic. She denies dizziness but feels 'mildly [...] March 02, 2025 TIME: 4:42 PM Pager: [phone] [facility]05-31-2025 NoteHNO ID: [id number] Author: RON BRUNO MD Service: Hospital Medicine Author Type: Physician Type: Progress Notes Filed: 03/02/2025 09:59 Note Text: DEPARTMENT OF HOSPITAL MEDICINE PROGRESS NOTE SERVICE DATE: 03/02/2025 SERVICE TIME: 9:58 AM Hospital Medicine/Primary Attending: Ron Bruno MD NIGHT AND WEEKEND COVERAGE: After 7pm please page [phone] SUBJECTIVE: Follow up for Mass. No new [...] 1871 after 7PM, as my pager is off.[facility]05-30-2025 NoteHNO ID: [id number] Author: KATLYN FRANCOIS RN Service: Care Management [...] Determined Advance Directives Current Advance Directive: None Hone Operator Attempted to Assist with AD Completion: Yes [...] Be able to go home, General wellness [place] Explained: [place] Given: No Reason Not Given: [...] Discharge Plan: Presents to the hospital from [place] due to an incidentally discovered bifrontal lobe [...] Patton DATE: March 01, 2025 TIME: 12:39 [facility]05-30-2025 NoteHNO ID: [id number] Author: RON BRUNO MD Service: Hospital Medicine Author Type: Physician Type: Progress Notes Filed: 03/01/2025 08:32 Note Text: Seen by my colleague earlier today. I introduced myself and answered questions. Reviewed the plan for the day. Will round fully tomorrow with nurse. Paged by RN that orders were missing. Had not released orders that were done properly by my colleague.[facility]05-30-2025 NoteHNO ID: [id number] Author: STEPH CALDERON RN Service: Nursing Author Type: Registered Nurse Type: Progress Notes Filed: 03/01/2025 07:40 Note Text: Pt received by this RN at 0000, vitals completed, admit screener completed, meds entered and Sound admit paged at 0100.[facility]05-29-2025 [facility] Medical Records Department [address] [place] [address] Discharge Summary 02/28/25 1850 MR#: [id number] Acct: [id number] Name: SIERRA PATTON Rep #: [id number] : 1970 54 From: Esteban Boss MD PCP: Dr. Mati Augustine, DO Status:DIS IN Location: [place] [id number] Providers Date of Admission: 02/27/25 Date of [...] to have patient transferred to [facility] With bed not being available decision was made to admit patient pending transfer ??? 02/28/2025; patient was transferred to [facility] once bed was obtained 2. Hypertension [...] 88.7 H, Lymph % (Auto) 8.1 L, [place] % (Auto) 1.8, Eos % (Auto) 0.0, [...] 80mg Discharge Plan Admission (more content not included)...[facility]05-29-2025 NoteProgram: Psychiatric Intensive Outpatient Program Current Service/Group: [...] after one session due to unforseen medical diagnosis.[facility] [id number] Progress note Author Esteban Boss [facility] Note Date/Time February 28, 2025 10:28 am [facility] Medical Records Department [address] [place] [address] Progress Note - Hospitalist 02/28/25 0959 MR#: [id number] Acct: [id number] Name: SIERRA PATTON Rep #:[id number] : 1970 54 From: Esteban Boss MD PCP: Dr. Mati Augustine, DO Status:AD IN Location: [place] [address] Reason for Visit Reason for Visit: Diagnoses [...] 88.7 H, Lymph % (Auto) 8.1 L, Pul[place]i % (Auto) 1.8, Eos % (Auto) 0.0, [...] of multiple small hepatic cysts. Reading Location: [place] [address] Physical Exam Narrative GENERAL: cooperative HEENT: Atraumatic; [...] to have patient transferred to [facility] With bed not being available decision [...] general surgery Charges/Coding Visit Charges Inpatient E&M: 04913 Subs Hosp L2 02/28/25 1028 <Electronically signed by Esteban Boss MD> Cosigner Signature (if applicable): CC: ~ Signed [facility] Work Phone: 1(928) 833-108105-29-2025 Progress note [facility] Medical Records Department [address] [place] [address] Progress Note - Hospitalist 02/28/25 0959 MR#: [id number] Acct: [id number] Name: SIERRA PATTON Rep #:[id number] : 1970 54 From: Esteban Boss MD PCP: Dr. Mati Augustine, DO Status:AD M IN Location: [place] [address] Reason for Visit Reason for Visit: Diagnoses [...] 88.7 H, Lymph % (Auto) 8.1 L, [place] % (Auto) 1.8, Eos % (Auto) 0.0, [...] of multiple small hepatic cysts. Reading Location: [place] [address] Physical Exam Narrative GENERAL: cooperative HEENT: Atraumatic; [...] to have patient transferred to [facility] With bed not being available decision [...] general surgery Charges/Coding Visit Charges Inpatient E&M: 75735 Subs Hosp L2 02/28/25 1028 Cosigner Signature (if applicable): CC: ~ Signed [facility]05-28-2025 History and physical note Author Godwin Lynch [facility] Note Date/Time February 27, 2025 6:52p m [facility] Medical Records Department [address] [place] [address] H&P Exam - Hospitalist 02/27/25 1847 MR#: [id number] Acct: [id number] Name: SIERRA PATTON Rep #:[id number] : 1970 54 From: Godwin Lynch DO PCP: Dr. Mati Augustine, DO Status:RE G ER Location: ED [facility] Date of Service: 02/27/25 Chief Complaint: [...] of dexamethasone. And they reached out to [facility] with neurosurgery and the patient was excepted. However they do not have any readilyavailable beds of the hospital service at [facility] was contacted for admission until a bed becomes available at [facility]. Patient states that she has had some mild difficulties that she did notreally attribute to anything particular other than just getting older including occasional difficulty learning to spell common words but these would be transient and being forgetful at times but once again transient. Denied any weakness or any kind of visual changes. [facility] Medical History Chronic renal failure Trigger [...] History current occupational status: employed current occupation: [employer] Smoking Status: Unknown if ever smoked alcohol [...] % (Auto) 69.1, Lymph % (Auto) 20.4, Pul[place]i% (Auto) 5.9, Eos % (Auto) 3.4, Baso [...] of multiple small hepatic cysts. 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 1c1u2sg frontal midline mass. Patient received 10 mg of IV dexamethasone in emergency room and will continue with 4 mg twice daily given the vasogenic edema. Patient is currently hemodynamically stable [facility] [...] with SCDs. Charges/Coding Visit Charges Inpatient E&M: 71544 Init Hosp L2 02/27/25 1852 <Electronically signed by Godwin Lynch DO> Cosigner Signature (if applicable): CC: Dr. Mati Augustine DO; Dr. Godwin Lynch DO~ Signed [facility] Work Phone: 1(703) 125-891605-28-2025 Discharge summary Author Olive Yang [facility] Note Date/Time February 27, 2025 6:32p m [facility] Medical Records Department [address] [place] [address] Emergency Department Summary 02/27/25 MR#: [id number] Acct: [id number] Name: SIERRA PATTON Cira Rep #:[id number] 3 : 1970 54 From: Olive Yang MD PCP: Dr. Mati Augustine, DO Status:RE G ER Location: ED ADDENDUM by Dr. Ron Hurley DO on 02/27/25 at 1832 Update: 1830 hrs. 27 Feb 2025 No wheezing at this time I reviewed the patient's ED course and the plan to transfer to [facility]. Unfortunately I am told by their [...] and vomiting. No exacerbating or alleviating factors. [facility] Medical History Chronic renal failure Trigger thumb [...] % topical ointment 1 applic topical DA SARHA PRN skin 12/05/23 Unknown History irritation metoprolol [...] I discussed patient with the [facility] Transfer line, who states that she [...] % (Auto) 69.1 Lymph % (Auto) 20.4 Pul[place]i % (Auto) 5.9 Eos % (Auto) 3.4 [...] out. No evidence of hydrocephalus. Reading Location: [facility] Chest CTA 02/27/25 09:16 IMPRESSION: No evidence of pulmonary embolism. 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 Heterogeneous appearance of the thyroid. Findings suggestive of multiple small hepatic cysts. Reading Location: [facility] Discharge Plan Triage Chief Complaint: Shortness [...] DO [Primary Care Provider] - Print Language: Guyanese Disposition Disposition: Acute Care Hospital Discharge Location: [facility] What to do if you have Problems For any increased pain, shortness of breath, bleeding, nausea or vomiting, chestpain, or any unexpected problems, contact your Primary Care Provider. Call [facility] ([phone]) or report to the closest Emergency Room. Call 911 if necessary. 02/27/25 5931 <Electronically signed by Olive Yang MD> Cosigner Signature (if applicable): CC: Dr. Mati Augustine DO ~ Signed [facility] Work Phone: 1(741) 281-730605-28-2025 History and physical note [facility] Medical Records Department [address] [place] [address] H&P Exam - Hospitalist 02/27/25 1847 MR#: [id number] Acct: [id number] Name: SIERRA PATTON Rep #:[id number] : 1970 54 From: Godwin Lynch [...] of dexamethasone. And they reached out to [facility] with neurosurgery and the patient was excepted. However they do not have any readilyavailable beds of the hospital service at [facility] was contacted for admission until a bed becomes available at [facility]. Patient states that she has had some mild difficulties that she did notreally attribute to anything particular other than just getting older including occasional difficulty learning to spell common words but these would be transient and being forgetful at times but once again transient. Denied any weakness or any kind of visual c hanges. [facility] Medical History Chronic renal failure Trigger [...] % (Auto) 69.1, Lymph % (Auto) 20.4, [place]% (Auto) 5.9, Eos % (Auto) 3.4, Baso [...] mass of brain: PLAN: Concerning for neoplasm. [id number] frontal midline mass. Patient received 10 mg of IV dexamethasone in emergency room and will continue with 4 mg twice daily given the vasogenic edema. Patient is currently hemodynamically stable and [facility] [...] with SCDs. Charges/Coding Visit Charges Inpatient E&M: 53096 Init Hosp L2 02/27/251851 Cosigner Signature (if applicable): CC: Dr. Mati Augustine DO; Dr. Godwin Lynch DO~ Signed [facility]05-28-2025 Discharge summary [facility] Medical Records Department [address] [place] [address] Emergency Department Summary 02/27/25 MR#: [id number] Acct: [id number] Name: SIERRA PATTON Rep #:[id number] : 1970 54 From: Olive Yang MD PCP: Dr. Mati Augustine DO Status:RE G ER Location: ED ADDENDUM by Dr. Ron Hurley DO on 02/27/25 at 1832 Update: 1830 hrs. 27 Feb 2025 No wheezing at this time I reviewed the patient's ED course and the plan to transfer to [facility]. Unfortunately I am told by their [...] states that she did not remember going [email or web address] or driving there the other day. She denies any headaches or nausea a nd vomiting. No exacerbating or alleviating factors. [facility] Medical History Chronic renal failure Trigger thumb [...] History current occupational status: employed current occupation: [employer] Smoking Status: Unknown if ever smoked alcohol [...] I discussed patient with the [facility] Transfer line, who states that she [...] % (Auto) 69.1 Lymph % (Auto) 20.4 [place] % (Auto) 5.9 Eos % (Auto) 3.4 [...] out. No evidence of hydrocephalus. Reading Location: [facility] Chest CTA 02/27/25 09:16 IMPRESSION: No evidence of pulmonary embolism. 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 Heterogeneous appearance of the thyroid. Findings suggestive of multiple small hepatic cysts. Reading Location: [facility] Discharge Plan Triage Chief Complaint: Shortness [...] DO [Primary Care Provider] - Print Language: Guyanese Disposition Disposition: Acute Care Hospital Discharge Location: [facility] What to do if you have Problems For any increased pain, shortness of breath, bleeding, nausea or vomiting, chestpain, or any unexpected problems, contact your Primary Care Provider. Call [facility] ([phone]) or report tothe closest Emergency Room. Call 911 if necessary. 02/27/25 1408 Cosigner Signature (if applicable): CC: Dr. Mati Augustine, ~ Signed [facility]05-28-2025 Radiology Diagnostic study note [facility] Imaging Services [address] [place], [place] [id number] CTA Chest W/WO Contrast MR#: [id number] Acct: [id number] Name: SIERRA PATTON Rep #: [id number] : 1970 F 54 From: Celestino Sanford MD PCP: Dr. Mati Augustine DO Status: RE G ER Study:CTA Chest W/WO Contrast Date of Exam: 02/27/25 Exam# [id number] Ordering Dr: Olive Yang MD PROCEDURE: CTA [...] of multiple small hepatic cysts. Reading Location: [place] [address] CC: Dr. Olive Yang MD; Dr. Mati Augustine DO ~ Commercial Lines Underwriter: Signed [facility]05-28-2025 Radiology Diagnostic study note [facility] Imaging Services [address] [place] [address] Brain/Head W/WO Contrast MR#: [id number] Acct: [id number] Name: SIERRA PATTON Rep #: [id number] : 1970 F 54 From: Celestino Sanford MD PCP: Dr. Mati Augustine DO Status: RE [facility] Study:Brain/Head W/WO Contrast Date of Exam: 02/27/25 Exam# [id number] Ordering Dr: Olive Yang MD PROCEDURE: BRAIN/HEAD [...] out. No evidence of hydrocephalus. Reading Location: [place] [address] CC: Dr. Olive Yang MD; Dr. Mati Augustine DO ~ Commercial Lines Underwriter: Signed [facility]05-28-2025 Radiology Diagnostic study note [facility] Imaging Services [address] [place] [address] Soft Tissue Neck WITH Contrast MR#: [id number] Acct: [id number] Name: SIERRA PATTON Rep #: [id number] : 1970 F 54 From: Fadia Duffy MD PCP: Dr. Mati Augustine DO Status: RE G CLMaddi Study:Soft Tissue Neck WITH Contrast Date of Exam: 02/27/25 Exam# [id number] Ordering Dr: Kenzie Lanier MD PROCEDURE: SOFT [...] Augustine DO; Dr. Trevor Lanier MD ~ Commercial Lines Underwriter: Signed [facility]05-27-2025 NoteInterim History: This patient was seen for evaluation and treatment of her depressive disorder with anxiety complicated by PTSD. Her only physical complaint was some mild akathisia after recent increase of Rexulti to 2 mg daily. She presents today to begin the [facility] IOP. She has been referred by her outpatient therapist, ROBLES Franco. She reports no previous psychiatric hospitalizations. She has not participated in a [facility]/IOP program previously. She is presently prescribed escitalopram [...] patient is committed to participating in the [facility]al [facility]. She says she is looking forward [...] with this. The patient will begin the [facility] IOP. 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 None Does patient have a Durable Power of Tip Finisher? Yes (Name) (Pt reported her significant other [...] for PTSD diagnostic Criteria Language Preferred Language: Guyanese Languages Spoken: Guyanese Presenting Problem(s) Reason for visit as reported [...] further reported Brie was once employed for [employer]. Pt described a lifetime history of anxiety, [...] were you homeless or living in a halfway (including now)?: No Patient feels safe at [...] reported she was born and raised in [place]. Pt reported she was raised predominantly by [...] age, his dad is jumped off the [employer], so yeah he has lots of trauma.) [...] identify any impact on treatment) None reported Jain/Spiritual Orientation (note if patient identifies any belief in higher power, sikhism belief, or not. Identify any spiritual/sikhism beliefs about suicide) Pt reported Wiccan. 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 Emotional & Behavioral [...] additional crisis resources. 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 Pt also verbalized understanding [...] surgical history on file. documented in this [facility]05-07-2025 Evaluation note* Diagnosis Onset Date Resolution [...] brain resolved April 02, 2025 9:13am [facility] Work Phone: [phone] Evaluation note* Diagnosis Onset Date Resolution Status [...] of brain resolved May 16, 2025 1:48pm [facility] Work Phone: 1(498) 946-853203-11-2025 Evaluation note* Diagnosis Onset Date Resolution Status Admit Date Anemia chronic December 11 11:08am Lesion of spleen chronic December 112024 11:08am [facility] Work Phone: [phone]) 941-611203-11-2025 Evaluation note* Diagnosis Onset Date Resolution Status Admit Date Anemia chronic December 11 11:08am Lesion of spleen chronic December 112024 11:08am Depression after menopause acute December 25, 2024 8:26am Multiple thyroid nodules chronic January 11, 2025 8:09am [facility] Work Phone: [phone]) 225-200003-11-2025 Evaluation note* Diagnosis Onset Date Resolution Status [...] thyroid nodules chronic February 27, 2025 6:42pm [facility] Work Phone: [phone]) 709-102703-11-2025 Evaluation note* Diagnosis Onset Date Resolution Status [...] thyroid nodules chronic April 02, 2025 9:13am [facility] Work Phone: 1(148) 628-352703-05-2025 Radiology Diagnostic study note [facility] Imaging Services [address] [place], [place] [address] Abdomen WITH IV Contrast MR#: [id number] Acct: [id number] Name: SIERRA PATTON Rep #: [id number] : 1970 F 54 From: Celestino Sanford MD PCP: Dr. Mati Augustine, DO Status: RE G CLI Study:Abdomen WITH IV Contrast Date of Exam: 12/05/24 Exam# [id number] Ordering Dr: Yaniv Crawford MD PROCEDURE: ABDOMEN [...] use of iterative reconstruction technique). Reading Location: [id number] CC: Dr. Mati Augustine DO; Dr. Yaniv Crawford MD ~ Commercial Lines Underwriter: Signed [facility]05-04-2024 Hospital Discharge instructions Patient Education 02/04/2024 08:08:10 AA Blank DI (CUSTOM) Result type:CT Forearm w/ Contrast Right Result date:February 04, 2024 7:02 EDT Result status:Auth (Verified) Result title:CT FOREARM W/ CONTRAST RIGHT Performed by:ROMULO JEFFERSON MD on February 04, 2024 7:02 EDT Cosigned by:VIVEK OLIVIA MD Verified by:ROMULO JEFFERSON MD on February 04, 2024 7:02 EDT Encounter info:[id number], [facility], Emergency, 02/04/2024 - Contributor system:[employer] [id number] ORIGINAL EXAMINATION: CT OF THE RIGHT FOREARM [...] 09/19/2006 Document Revised: 09/05/2013 Document Reviewed: 09/20/2014 [facility] Patient Information 2014 [employer]. This information is not intended to replace [...] protect it from movement. You may use kdbi-mpl-uqewrva ibuprofen or naproxen to treat pain and [...] or as advised by your healthcare provider [phone] [employer] [place] [address], [place] [address]. All rights reserved. This information is not intended as a substitute for professional medical care. Always follow yourhealthcare professional's instructions. Follow Up Care 02/04/2024 05:49:38 With:CHANCE CALVILLO MD, [facility], Vascular Service, Vascular Surgeons Address: [address] [facility] [place] [address] [phone] When:3-7 days With:FARHAN LIMA MD Address: [facility] [address] [place] [address] [phone] When:2-4 days With:MATI AUGUSTINE DO Address: [facility] [address] [place] [address]- [phone] When:2-4 days [facility] 05-04-2024 Note Discharge Instructions Thank you for allowing [facility] to assist you with your healthcare needs. [...] Appointments Follow Up with CHANCE CALVILLO MD, [facility], Vascular Service, Vascular Surgeons When Within 3-7 days Where: [address] [facility] [place] [address] [phone] Follow Up with FARHAN LIMA MD When Within 2-4 days Where: [facility] [address] [place] [address] [phone] Follow Up with MATI AUGUSTINE DO When Within 2-4 days Where: [facility] [address] [place] [address] [phone] Allergies sulfa drug Medications Please ask your [...] February 04, 2024 7:02 EDT Encounter info: [id number], [place], Emergency, 02/04/2024 - Contributor system: [employer] [id number] ORIGINAL EXAMINATION: CT OF THE RIGHT FOREARM [...] 09/19/2006 Document Revised: 09/05/2013 Document Reviewed: 09/20/2014 [facility] Patient Information 2015 [employer]. This information is not intended to replace [...] protect it from movement. You may use dddx-aqr-gjfhhen ibuprofen or naproxen to treat pain and [...] or as advised by your healthcare provider [phone] [employer]. [address] [place] [address], [place] [address]. All rights reserved. This information is not intended as a substitute for professional medical care. Always follow yourhealthcare professional's instructions. Additional Information VACCINATE! IT SAVES LIVES! Members of the community who have not yet received the COVID-19 vaccine and would like to receive it can visit one of [facility] vaccine clinics. There are many vaccine clinic locations within the [facility]. For locations and available times, please visit www.gettheshot.coronavirus.[place].gov/. It is important to note that some COVID mobile vaccine clinics are held outdoors and may be canceled in rainy or stormy conditions. To learn more about pediatric vaccinations (ages 5-11), we invite you to visit the [facility] webpage. https://www.[facility].org/pages/5541-Aapho-Kjivexygfet-Jmchdynjei-Loufw-Hui stions.htmlTo learn more about the COVID-19 vaccine, we invite you to visit the CDC website for a list of frequently asked questions. https://www.cdc.gov/coronavirus/2019-ncov/vaccines/faq.html [employer] Patient Portal Access Instructions: Stay connected with your healthcare team and access your personal medical information anytime with the [employer] Patient Portal. If you would like a full copy of your medical records please contact the [facility] Medical Records Department Tuesday through Tuesday between 8a.m. and 4:30p.m. Please follow the directions below to access the portal: 1.Access the email account you provided upon registration to the hospital.2.Look for an invitation email from [facility].3.Open the email and access the invitation link: Accept Invitation to [employer]4.Fill in the required marinelli to create your account. Sign into [email or web address] with your username and password that you [...] you will allow to register on the [employer] Patient Portal for access to your information. You can also access the [employer] Patient Portal on the [employer] sindy. Simply click on Health Records under [employer] and then click on the [employer] logo. HOW TO SAFELY DISPOSE OF PRESCRIPTION [...] Call your local pharmacy or go to http://Opp.io.AppSpotr/7V4Yo2f to find one close to you.3.Make use of household items: Use cat litter or old coffee grounds to dispose medications if other options arenot available. Mix your drugs with these household products, seal them in an airtight container andthrow it into the garbage. Call [facility]: [phone] to be sure your drugs can be [...] aware that I should contact my doctor. Patient/Liquor Merchant Signature: Date/Time: Relationship to Patient: Witness Name/Signature: Date/Time: [facility] [id number] Note ORIGINAL EXAMINATION: CT OF THE RIGHT [...] Sign Date: 02/04/2024 7:49:04 AM Ordering Provider: [facility]03-20-2024 History and physical note Author Farhan Lima [facility] December 21, 2023 1:17pm Note Date/Time December 21, 2023 1:1 7pm [facility] Medical Records Department [address] [place] [address] History & Physical Exam 12/21/23 1316 MR#: [id number] Acct: [id number] Name: SIERRA PATTON Rep #:[id number] : 1970 53 From: Farhan Lima MD PCP: Dr. Mati Augustine, DO Status:RE G [facility] Location: [place] [address]- HPI - General HPI Narrative SIERRA PATTON, is a 53 F who presents for right thumb volar A1 elena release.no changes to h and p. ok to proceed. right thumb marked. discussed rab, post opinstructions. no narcotics, otc meds and local anesthetic. ok for gentle ROM after, FU in office 2 days. MR#: [id number] Acct: [id number] Name: SIERRA PATTON Rep #: [id number] : 1970 Provider: Dr. 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] the injection well without any noted complication. [place] a fluid wave distally. Red flag symptoms [...] the injection well without any noted complication. [place] afluid wave distally. Bandage placed. Red flag symptoms were discussed such as redness, swelling, discharge, drainage, pain worsens or if they have any concerns to present to the ED or to call the clinic immediately. (2) Trigger thumb of right hand: [facility] Medical History (Updated 12/13/23 @ 15:51 by [...] Augustine, DO; Dr. Farhan Lima MD~ Signed [facility] Work Phone: [phone]) 794-497703-20-2024 Procedure [facility] 07-18-2023 NotePap Smear Specimen AdequacyOctober 2022 1:32pmComment. Satisfactory for evaluation. Endocervical and/or squamous metaplasticcells (endocervical component)are present.[facility] A#[id number]'S Hospital Of ColumbusComment on above:Satisfactory for evaluation. Endocervical and/or squamous metaplasticcells (endocervical component)are present.07-18-2023 NotePap Smear Specimen AdequacyOctober 2022 12:32pmComment.Satisfactory for evaluation. Endocervical and/or squamous metaplasticcells (endocervical component)are present.[facility] A#[id number]'S Hospital [facility] Comment on above:Satisfactory for evaluation. Endocervical and/or squamous metaplasticcells (endocervical component)are present.04-06-2023 Procedure note [facility]11-09-2022 NotePap Smear Specimen AdequacyNovember 2021 4:30pmComment.Satisfactory for evaluation. Endocervical and/or squamous metaplasticcells (endocervical component)are present.[facility] A#[id number]'S Hospital Of [facility] Work Phone: Comment on above:Satisfactory for evaluation. Endocervical and/or squamous metaplasticcells (endocervical component)are present.08-11-2022 NotePap Smear Specimen AdequacyNovember 2021 4:30pm Comment.Satisfactory for evaluation. Endocervical and/or squamous metaplasticcells (endocervical component)are present.[facility] A#[id number]'S Hospital [facility] Work Phone: Comment on above:Satisfactory for evaluation. Endocervical and/or squamous metaplasticcells (endocervical component)are present.08-11-2022 NotePap Smear Specimen AdequacyNovember 2021 4:30pm Comment.Satisfactory for evaluation. Endocervical and/or squamous metaplasticcells (endocervical component)are present.[facility] A#[id number]'S Hospital Of [facility] Work Phone: Comment on above:Satisfactory for evaluation. Endocervical and/or squamous metaplasticcells (endocervical component)are present.Evaluation + Plan note No data available for this section [facility] Evaluation note* Diagnosis Onset Date Resolution Status Foreign body (FB) in soft tissue acute Hyperlipidemia chronic Hypertension chronic Foreign body (FB) in soft tissue acute Hyperlipidemia chronic Hypertension [facility] Work Phone: Evaluation note* Diagnosis Onset Date Resolution Status Foreign body (FB) in soft tissue acute Hyperlipidemia chronic Hypertension chronic Foreign body (FB) in soft tissue acute Hyperlipidemia chronic Hypertension chronic Foreign body (FB) in soft tissue acute Multiple thyroid nodules acu te Cardiac arrhythmia acute Emotional disorder chronic [facility] Work Phone: Evaluation note* Diagnosis Onset Date Resolution Status Foreign body (FB) in soft tissue acute Hyperlipidemia chronic Hypertension chronic Enlarged thyroid noneactive Foreign body (FB) in soft tissue acute Multiple thyroid nodules acu te Cardiac arrhythmia acute Emotional disorder [facility] Work Phone: Evaluation note* Diagnosis Onset Date Resolution Status Gynecologic exam normal acut e Localized hives acute Hypertension [facility] Work Phone: Evaluation noteNo assessment information available [facility] Work Phone: Evaluation note* Diagnosis Onset Date Resolution Status Multiple thyroid nodules acu te [facility] Work Phone: Evaluation note* Diagnosis Onset Date Resolution Status Multiple thyroid nodules acu te Change of voice acute Dysphagia acute Thyroid nodule acute Cardiac arrhythmia acute Numbness and tingling in right hand acute Thyroid nodule acute Trigger thumb of left hand a cute [facility] Work Phone: Evaluation note* Diagnosis Onset Date Resolution Status Multiple thyroid nodules acu te Change of voice acute Dysphagia acute Thyroid nodule acute Cardiac arrhythmia acute Numbness and tingling in right hand acute Thyroid nodule acute Trigger thumb of left hand a cute Bilateral trigger thumb acut e Cardiac arrhythmia acute Cervicogenic headache acute Elevated alkaline phosphatase level acute Hypertension chronic [facility] Work Phone: Evaluation note* Diagnosis Onset Date [...] acute Gammopathy acute Lesion of spleen acute [facility] Work Phone: Evaluation note* Diagnosis Onset Date Resolution Status Bilateral trigger thumb acut e Cardiac arrhythmia acute Cervicogenic headache acute Elevated alkaline phosphatase level acute Hypertension chronic Lesion of spleen acute Liver mass acute Gammopathy acute Lesion of spleen acute [facility] Work Phone: Evaluation note* Diagnosis Onset Date Resolution Status Lesion of spleen acute Liver mass acute Gammopathy acute Lesion of spleen acute Gammopathy acute Lesion of spleen acute Encounter for routine gynecological examination noneactive [facility] Work Phone: Evaluation note* Diagnosis Onset Date Resolution Status Encounter for routine gynecological examination noneactive Gammopathy acute Multiple thyroid nodules acu te Trigger thumb of left hand a cute Emotional disorder chronic [facility] Work Phone: Evaluation note* Diagnosis Onset Date Resolution Status Gammopathy acute Multiple thyroid nodules acu te Trigger thumb of left hand a cute Emotional disorder chronic Depression after menopause a cute Panic attacks acute Trigger thumb of left hand a cute Trigger thumb of right hand acute Depression after menopause a cute Gammopathy acute Chronic insomnia chronic [facility] Work Phone: Evaluation note* Diagnosis Onset Date [...] chronic Trigger thumb of right hand acute [facility] Work Phone: Evaluation note* Diagnosis Onset Date [...] acut e Multiple thyroid nodules chr onic [facility] Work Phone: Evaluation note* Diagnosis GRAYSON (generalized anxiety disorder) Generalized anxiety disorder Major depressive disorder, recurrent episode, moderate (HCC) Major depressive disorder, recurrent episode, moderate PTSD (post-traumatic stress disorder) Posttraumatic stress disorder [facility]* Diagnosis Brain mass- Primary Unspecified condition of brain Brain mass Unspecified condition of brain Acute post-operative pain Obesity, Class II, BMI 35-39.9 Obesity, unspecified Hypertension, essential Unspecified essential hypertension Hyperlipidemia, mixed Mixed hyperlipidemia CLAUDETTE (acute kidney injury) Acute kidney failure, unspecified Intracranial meningioma (HCC)- Primary Benign neoplasm of cerebral meninges [facility]* Diagnosis Brain mass- Primary Unspecified condition of brain Brain mass Unspecified condition of brain Acute post-operative pain Obesity, Class II, BMI 35-39.9 Obesity, unspecified Hypertension, essential Unspecified essential hypertension Hyperlipidemia, mixed Mixed hyperlipidemia CLAUDETTE (acute kidney injury) Acute kidney failure, unspecified Intracranial meningioma (HCC)- Primary Benign neoplasm of cerebral meninges documented in this encounter [facility] note* Diagnosis Brain mass- Primary Unspecified condition of brain Brain mass Unspecified condition of brain Acute post-operative pain Obesity, Class II, BMI 35-39.9 Obesity, unspecified Hypertension, essential Unspecified essential hypertension Hyperlipidemia, mixed Mixed hyperlipidemia CLAUDETTE (acute kidney injury) Acute kidney failure, unspecified Intracranial meningioma (HCC) Benign neoplasm of cerebral meninges documented in this encounter [facility] note* Diagnosis Brain mass- Primary Unspecified condition of brain Brain mass Unspecified condition of brain Acute post-operative pain Obesity, Class II, BMI 35-39.9 Obesity, unspecified Hypertension, essential Unspecified essential hypertension Hyperlipidemia, mixed Mixed hyperlipidemia CLAUDETTE (acute kidney injury) Acute kidney failure, unspecified Intracranial meningioma (HCC)- Primary Benign neoplasm of cerebral meninges [facility] Author Godwin Lynch [facility] Note Date/Time February 27, 2025 6:52p m [facility] Medical Records Department [address] [place] [address] H&P Exam - Hospitalist 02/27/25 1847 MR#: [id number] Acct: [id number] Name: SIERRA PATTON Rep #:[id number] : 1970 54 From: Godwin Lynch DO PCP: Dr. Mati Aguustine, DO Status:RE G ER Location: ED HPI [...] of dexamethasone. And they reached out to [facility] with neurosurgery and the patient was excepted. However they do not have any readilyavailable beds of the hospital service at [facility] was contacted for admission until a bed becomes available at [facility]. Patient states that she has had some mild difficulties that she did notreally attribute to anything particular other than just getting older including occasional difficulty learning to spell common words but these would be transient and being forgetful at times but once again transient. Denied any weakness or any kind of visual changes. [facility] Medical History Chronic renal failure Trigger [...] History current occupational status: employed current occupation: [employer] Smoking Status: Unknown if ever smoked alcohol [...] % (Auto) 69.1, Lymph % (Auto) 20.4, [place]% (Auto) 5.9, Eos % (Auto) 3.4, Baso [...] out. No evidence of hydrocephalus. Reading Location: [facility]-IR[facility]1 Chest CTA 02/27/25 09:16 IMPRESSION: No evidence of pulmonary embolism. 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 Heterogeneous appearance of the thyroid. Findings suggestive of multiple small hepatic cysts. 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 [id number] frontal midline mass. Patient received 10 mg of IV dexamethasone in emergency room and will continue with 4 mg twice daily given the vasogenic edema. Patient is currently hemodynamically stable [facility] [...] with SCDs. Charges/Coding Visit Charges Inpatient E&M: 66610 Init Hosp L2 02/27/25 1852 <Electronically signed by Godwin Lynch DO> Cosigner Signature (if applicable): CC: Dr. Mati Augustine, DO; Dr. Godwin Lynch, DO~ Signed [facility] Work Phone: Reason for referral (narrative)No reason for referral information availableWCherrington [facility] Work Phone: Rerelt for visit Narrative* MRI/CT (Routine) - Closed Specialty Diagnoses / Procedures Referred By Contac t Referred To Contact MR IMAGING Diagnoses Intracranial meningioma (HCC) Procedures MRI BRAIN WO/W IVCON MRI BRAIN BRAIN STEM W/O W/CONTRAST MATERIAL Paige Huddleston, HOT METAL CHARGER.HABILITATION WORKER [address] [place] [address] Phone: tel: fax: [place] [id number] Referral ID Status Reason Start Date Expiration Date V isits Requested Visits Authorized [id number] Closed Auto-Generate d Referral 04/09/2025 05/04/2026 1 1 [facility] Chief Complaint and Reason for Visit Chief [...] NO LABS REVIEW PATH FROM BIOPSY Annual (PARTY PLANNER) Reason for Visit Lesion of spleen Liver mass Gammopathy Lesion of spleen Gammopathy Lesion of spleen Encounter for routine gynecological examination Chief Complaint Annual (PARTY PLANNER) discuss anxiety meds SCREENING Reason for Visit [...] Yes December 05, 2023 2:08pm Power of Tip Finisher Yes December 04 2:08pm Advance Directive Response Recorded Date/ Time Name of Medical Power of Tip Finisher FRIEND December 05, 2023 3:08pm Living Will Yes December 05, 2023 3:08pm Power of Tip Finisher Yes December 04 3:08pm Advance Directive Response Recorded Date/ Time Name of Medical Power of Tip Finisher FRIEND December 05, 2023 3:08pm Living Will Yes January 03, 2024 8:09am Power of Tip Finisher Yes January 02 8:09am Advance Directive Response Recorded Date/ Time Living Will Yes January 03, 2024 8:09am Power of Tip Finisher Yes January 02 8:09am Advance Directive Response Recorded Date/ Time Living Will Yes January 03, 2024 8:09am Do you have a Healthcare Power of Tip Finisher? Yes January 03, 2024 8:09am Advance Directive Response Recorded Date/ Time Living Will Yes January 03, 2024 8:09am Do you have a Healthcare Power of Tip Finisher? Yes January 03, 2024 8:09am Do you have a Healthcare Power of Tip Finisher? No February 27, 2025 11:38am Advance Directive Response Recorded Date/ Time Living Will Yes January 03, 2024 8:09am Do you have a Healthcare Power of Tip Finisher? Yes January 03, 2024 8:09am Do you have a Healthcare Power of Tip Finisher? No February 27, 2025 7:22pm Date Activated [...] Do you have a Healthcare Power of Tip Finisher? No February 27, 2025 7:22pm Advance Directive Response Recorded Date/ Time Do you have a Healthcare Power of Tip Finisher? Yes July 22, 2025 3:26pm Summary Purpose [...] 05, 2025 End: January 05, 2025 Dr. Tervor Lanier MD Referring Provider Active Start: January [...] Star t: February 28, 2025 Dr. Godwin Lnych DO Other Provider Active Star t: February [...] February 27, 2025 End: February 27, 2025 Sponge Maker Relationship Specialty Start Date End Date Mati [...] 11, 2024 End: December 11, 2024 Dr. Mtai Augustine DO Referring Provider Active Start: December [...] April 02, 2025 End: April 02, 2025 Sponge Maker Relationship Specialty Start Date End Date Mati Augustine DO PCP - [facility] Medicine 02/12/16 Sponge Maker Relationship Specialty Start Date End Date Mati Augustine DO PCP - [facility] 02/12/16 Team Status: Inactive Member Role/Relationship [...] May 16, 2025 End: May 16, 2025 Sponge Maker Relationship Specialty Start Date End Date Mati [...] section and content) DATE CREATED AUTHOR 02/11/2024 [facility] ([place]) DATE CREATED AUTHOR AUTHOR'S ORGANIZ ATION 03/30/[address] [facility] DATE CREATED AUTHOR AUTHOR'S ORGANIZ ATION 05/02/2025 [facility] DATE CREATED AUTHOR AUTHOR'S ORGANIZ ATION 05/09/2025 [facility] DATE CREATED AUTHOR AUTHOR'S ORGANIZ ATION 08/09/2025 [facility] Reason for Visit (unrecogniz ed section and [...] or prosecute any alcohol or drug abuse patient.[facility] the event this information is protected by the Federal Confidentiality of Alcohol and Drug Abuse Patient Records regulations: The Federal rules restrict any use of the information to criminally investigate or prosecute any alcohol or drug abuse patient.[facility] the event this information is protected by the Federal Confidentiality of Alcohol and Drug Abuse Patient Records regulations: The Federal rules restrict any use of the information to criminally investigate or prosecute any alcohol or drug abuse patient.[facility] Campus[facility] the event this information is protected by the Federal Confidentiality of Alcohol and Drug Abuse Patient Records regulations: The Federal rules restrict any use of the information to criminally investigate or prosecute any alcohol or drug abuse patient.[facility] CampusIn the event this information is protected by the Federal Confidentiality of Alcohol and Drug Abuse Patient Records regulations: The Federal rules restrict any use of the information to criminally investigate or prosecute any alcohol or drug abuse patient.[facility] FOR RECORDS PERTAINING TO PATIENTS WHO ARE [...] BE BASED ON THE PRIMARY CLINICAL RECORDS. [facility] [employer] [facility]. provides no warranty or guarantee of the accuracy or completeness of information in this document.
== END | disposition home or self-care (01) ==
PROVIDERS: PCP Family Medicine; Referring Provider Family Medicine; Visit Provider Family Medicine
DX: G93.89 Other specified disorders of brain (principal); H53.9 Unspecified visual disturbance
CPT/HCPCS: 70553; A9575

== ENCOUNTER → 2025-09-20 | Outpatient (CLI) | payer OTHER, SELFPAY ==
[2025-09-25 13:08] LABS: HPV APTIMA, High Risk Negative (Negative)
== END | disposition home or self-care (01) ==
LOC: LABSPEC 16:25
PROVIDERS: PCP Family Medicine; Visit Provider Obstetrics & Gynecology
DX: Z12.4 Encounter for screening for malignant neoplasm of cervix (principal)
CPT/HCPCS: 87624; 88175; G0145

== ENCOUNTER → 2025-09-30 | Outpatient (CLI) | payer OTHER, SELFPAY ==
[2025-09-30 15:46] LABS: Free T3 3.8 pg/mL (2.18-3.98); T4 Total, Thyroxin 7.4 ug/dL (4.8-13.9)
== END | disposition home or self-care (01) ==
PROVIDERS: PCP Family Medicine; Referring Provider Surgery; Visit Provider Surgery
DX: Z90.09 Acquired absence of other part of head and neck (principal)
CPT/HCPCS: 36415; 84436; 84443; 84481